=== PATIENT | male | born 1965 | race Hispanic/Latino ===

== ENCOUNTER 2018-07-27 12:59 | Emergency (ER) | payer OTHER ==
[2018-07-27] MEDS ORDERED: MEPERIDINE HCL 50 MG/ML AMP ONE (13:56)
[2018-07-27] MEDS ORDERED: DEXAMETHASONE 10 MG/ML VIAL ONE (13:57)
--- NOTE | 2018-07-27 14:13 | ER ---
Nurse's Notes [facility] Name: Chrissie Parada Jr Age: 53 yrs Sex: Male : 1965 Arrival Date: 07/27/2018 Time: 13:01 Bed 25 Private MD: Otilia Roman Diagnosis: Radiculopathy, lumbosacral region;Foot drop, left foot Presentation: 07/27 13:05 Presenting complaint: Patient states: L groin pain x months that has gotten worse over ss the past 3-4 days. Pt recently has had an ultrasound, but was negative. Transition of care: patient was not received from another setting of care. Onset of symptoms is unknown. Risk Assessment: Do you want to hurt yourself or someone else? Patient reports no desire to harm self or others. Initial Sepsis Screen: Does the patient meet any 2 criteria? No. Patient's initial sepsis screen is negative. Does the patient have a suspected source of infection? No. Patient's initial sepsis screen is negative. Care prior to arrival: None. 13:05 Method Of Arrival: Ambulatory ss 13:05 Acuity: WENDY 4 ss Historical: - Allergies: 13:06 No Known Allergies; ss - PMHx: 13:06 Arthritis; Cirrhosis; GERD; esophageal varices; ss - Immunization history:: Adult Immunizations up to date. - Social history:: Smoking status: Patient/guardian denies using tobacco. - Ebola Screening: : Patient denies exposure to infectious person Patient denies travel to an Ebola-affected area in the 21 days before illness onset. - Family history:: not pertinent. - Hospitalizations: : No recent hospitalization is reported. Screenin:36 Abuse screen: Denies threats or abuse. Denies injuries from another. Nutritional aj1 screening: No deficits noted. Tuberculosis screening: No symptoms or risk factors identified. 14:31 Fall Risk None identified. aj1 Assessment: 13:36 General: Appears in no apparent distress. uncomfortable, Behavior is calm, cooperative, aj1 appropriate for age. Pain: Complains of pain in pelvis Pain currently is 8 out of 10 on a pain scale. Neuro: Level of Consciousness is awake, alert, obeys commands, Oriented to person, place, time, situation. Cardiovascular: Patient's skin is warm and dry. Respiratory: Airway is patent Respiratory effort is even, unlabored, Respiratory pattern is regular, symmetrical. GI: No signs and/or symptoms were reported involving the gastrointestinal system. : No signs and/or symptoms were reported regarding the genitourinary system. EENT: No signs and/or symptoms were reported regarding the EENT system. Derm: No signs and/or symptoms reported regarding the dermatologic system. Skin is pink, warm \T\ dry. normal. Musculoskeletal: No signs and/or symptoms reported regarding the musculoskeletal system. Circulation, motion, and sensation intact. 14:30 Reassessment: Patient appears in no apparent distress at this time. No changes from aj1 previously documented assessment. Patient and/or family updated on plan of care and expected duration. Pain level reassessed. Patient is alert, oriented x 3, equal unlabored respirations, skin warm/dry/pink. Vital Signs: 13:03 BP 121 / 86; Pulse 104; Resp 16; Temp 98.7(TE); Pulse Ox 93% on R/A; Weight 104.33 kg; ss Height 5 ft. 7 in. (170.18 cm); Pain 8/10; 13:03 Body Mass Index 36.02 (104.33 kg, 170.18 cm) ED Course: 13:01 Patient arrived in ED. mr 13:02 None, None is Private Physician. mr 13:02 Otilia Roman MD is Private Physician. mr 13:03 Arm band placed on left wrist. ss 13:05 Triage completed. ss 13:20 Soni Devlin, RN is Primary Nurse. aj1 13:23 Harjeet Gibson MD is Attending Physician. rn 13:36 Patient has correct armband on for positive identification. Bed in low position. Call aj1 light in reach. Side rails up X 1. 13:36 No provider procedures requiring assistance completed. aj1 14:30 Patient did not have IV access during this emergency room visit. aj1 Administered Medications: 13:49 Drug: Demerol 50 mg Route: IM; Site: right deltoid; aj1 14:29 Follow up: Response: No adverse reaction aj1 13:49 Drug: Decadron 10 mg Route: IM; Site: left deltoid; aj1 14:29 Follow up: Response: No adverse reaction aj1 Outcome: 14:12 Discharge ordered by . rn 14:31 Discharged to home ambulatory, with family. aj1 14:31 Condition: good 14:31 Discharge instructions given to patient, family, Instructed on discharge instructions, follow up and referral plans. no drinking with medication, no driving heavy equipment, medication usage, Demonstrated understanding of instructions, follow-up care, medications, Prescriptions given X 3. 14:31 Patient left the ED. aj1 Signatures: Soni Devlin RN RN aj1 Tammie Moseley mr Harjeet Gibson MD MD rn Smirch, Shelby, RN RN ss
--- NOTE | 2018-07-27 14:13 | EDPHYS ---
Physician Documentation [facility] Name: Chrissie Parada Jr Age: 53 yrs Sex: Male : 1965 Arrival Date: 07/27/2018 Time: 13:01 Bed 25 Private MD: Otilia Roman ED Physician Harjeet Gibson HPI: 07/27 14:07 This 53 yrs old Male presents to ER via Ambulatory with complaints of Groin rn Pain. 14:07 The patient presents with pain. The complaints affect the left leg. Onset: The rn symptoms/episode began/occurred 1 year(s) ago. Modifying factors: The symptoms are alleviated by nothing. the symptoms are aggravated by nothing. Severity of symptoms: At their worst the symptoms were moderate, in the emergency department the symptoms are unchanged. The patient has experienced similar episodes in the past. 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 Evaluated before for this and had negative imaging. Does not feel a bulge. No recent vascular procedure. . Historical: - Allergies: 13:06 No Known Allergies; ss - PMHx: 13:06 Arthritis; Cirrhosis; GERD; esophageal varices; ss - Immunization history:: Adult Immunizations up to date. - Social history:: Smoking status: Patient/guardian denies using tobacco. - Ebola Screening: : Patient denies exposure to infectious person Patient denies travel to an Ebola-affected area in the 21 days before illness onset. - Family history:: not pertinent. - Hospitalizations: : No recent hospitalization is reported. ROS: 14:07 Constitutional: Negative for fever, chills, and weight loss, Eyes: Negative for injury, rn pain, redness, and discharge, Cardiovascular: Negative for chest pain, palpitations, and edema, Respiratory: Negative for shortness of breath, cough, wheezing, and pleuritic chest pain, Abdomen/GI: Negative for abdominal pain, nausea, vomiting, diarrhea, and constipation, Back: + chronic back pain MS/Extremity: + left leg pain, no injury Skin: Negative for injury, rash, and discoloration, Neuro: Negative for headache, and seizure. Exam: 14:07 Constitutional: This is a well developed, well nourished patient who is awake, alert, rn and in no acute distress. Head/Face: Normocephalic, atraumatic. Eyes: Pupils equal round and reactive to light, extra-ocular motions intact. Lids and lashes normal. Conjunctiva and sclera are non-icteric and not injected. Cornea within normal limits. Periorbital areas with no swelling, redness, or edema. Abdomen/GI: soft, non-tender Back: No spinal tenderness. No costovertebral tenderness. Full range of motion. Skin: Warm, dry with normal turgor. Normal color with no rashes, no lesions, and no evidence of cellulitis. MS/ Extremity: Pulses equal, no cyanosis. Neurovascular intact. Full, normal range of motion. Equal circumference. No masses or skin changes. + mild tenderness left groin in inguinal canal. Neuro: Awake and alert, GCS 15, oriented to person, place, time, and situation. Cranial nerves II-XII grossly intact. Motor strength 5/5 in all extremities. Sensory grossly intact. Cerebellar exam normal. + antalgic gait left leg, no foot drop. Vital Signs: 13:03 BP 121 / 86; Pulse 104; Resp 16; Temp 98.7(TE); Pulse Ox 93% on R/A; Weight 104.33 kg; ss Height 5 ft. 7 in. (170.18 cm); Pain 8/10; 13:03 Body Mass Index 36.02 (104.33 kg, 170.18 cm) ss MDM: 13:23 Patient medically screened. rn 14:07 Differential diagnosis: radiculopathy, inguinal hernia, inguinal canal congestion due rn to cirrhosis. Data reviewed: vital signs, nurses notes, and as a result, I will discharge patient. Counseling: I had a detailed discussion with the patient and/or guardian regarding: the historical points, exam findings, and any diagnostic results supporting the discharge/admit diagnosis, the need for outpatient follow up, to return to the emergency department if symptoms worsen or persist or if there are any questions or concerns that arise at home. Response to treatment: the patient's symptoms have mildly improved after treatment, and as a result, I will discharge patient. Special discussion: I discussed with the patient/guardian in detail that at this point there is no indication for admission to the hospital. It is understood, however, that if the symptoms persist or worsen the patient needs to return immediately for re-evaluation. ED course: MOst likely combination of radiculopathy/nerve pain due to intermittent symptoms of paresthesias/weakness and length of symptoms, + known [facility] back issues due to labor. Will prescribe steroids and muscle relaxer, urged to f/u with pcp for MRI of spine.. Administered Medications: 13:49 Drug: Demerol 50 mg Route: IM; Site: right deltoid; aj1 14:29 Follow up: Response: No adverse reaction aj1 13:49 Drug: Decadron 10 mg Route: IM; Site: left deltoid; aj1 14:29 Follow up: Response: No adverse reaction aj1 Disposition: 07/27/18 14:12 Discharged to Home. Impression: Radiculopathy, lumbosacral region, Foot drop, left foot. - Condition is Stable. - Discharge Instructions: Lumbosacral Radiculopathy, Neuropathic Pain, Back Exercises. - Prescriptions for Ultram 50 mg Oral Tablet - take 1 tablet by ORAL route every 6 hours As needed; 20 tablet. Cyclobenzaprine 10 mg Oral Tablet - take 1 tablet by ORAL route every 8 hours As needed; 30 tablet. Medrol ([place]) 4 mg Oral Tablets, Dose Pack - take 1 tablet by ORAL route as directed - follow package instructions; 1 packet. - Medication Reconciliation Form, Thank You Letter, Antibiotic Education, Prescription Opioid Use form. - Follow up: Private Physician; When: As needed; Reason: Recheck today's complaints, Re-evaluation by your physician. - Problem is chronic. - Symptoms have improved. Signatures: Soni Devlin RN RN aj1 Harjeet Gibson MD MD rn Smirch, Shelby, RN RN ss Corrections: (The following items were deleted from the chart) 14:31 14:12 07/27/2018 14:12 Discharged to Home. Impression: Radiculopathy, lumbosacral aj1 region; Foot drop, left foot. Condition is Stable. Forms are Medication Reconciliation Form, Thank You Letter, Antibiotic Education, Prescription Opioid Use. Follow up: Private Physician; When: As needed; Reason: Recheck today's complaints, Re-evaluation by your physician. Problem is chronic. Symptoms have improved. rn
[2018-07-27 14:37] VITALS: BP 121/86; TEMP 98.7; O2SAT 93
== END 2018-07-27 14:31 | disposition home or self-care (01) ==
LOC: ER 12:59
DX: M54.17 Radiculopathy, lumbosacral region (principal); M21.372 Foot drop, left foot
CPT/HCPCS: 96372; 99283; J1100; J2175

== ENCOUNTER 2018-09-13 14:13 | Emergency (ER) | payer OTHER ==
[2018-09-13 16:00] LABS: Absolute Lymphocytes (CBC) 0.9 K/uL (0.7-4.9); Absolute Monocytes 0.5 K/uL (0.1-1.3); Absolute Neutrophil 4.2 K/uL (1.8-8.0); Basophils % 1.1 % (0-1.3); Eosinophils % 2.1 % (0-4.4); Hematocrit 33.7 % (39.6-49.0); Lymphocytes % 15.6 % (15.3-44.8); MPV 8.7 fL (7.6-11.3); Monocytes % 8.9 % (3.3-12.3); RBC Red Blood Cell Count 3.04 M/uL (4.33-5.43)
[2018-09-13 16:05] LABS: Protime INR 1.79
[2018-09-13] MEDS ORDERED: MORPHINE 4 MG/ML SYR ONE (16:22)
[2018-09-13] MEDS ORDERED: ONDANSETRON 4 MG/2 ML VIAL ONE (16:22)
[2018-09-13 16:31] LABS: ALT/SGPT 61 U/L (12-78); AST/SGOT 208 U/L (15-37); Albumin 1.7 g/dL (3.4-5.0); Alkaline Phosphatase 235 U/L (45-117); BUN Blood Urea Nitrogen 5 mg/dL (7-18); Bicarbonate 22 mmol/L (21-32); Bilirubin Direct 5.2 mg/dL (0-0.2); Glucose Level 103 mg/dL (74-106); Lipase 194 U/L (73-393); Potassium 4.3 mmol/L (3.5-5.1); Sodium Level 134 mmol/L (136-145)
[2018-09-13 16:37] LABS: Blood Morphology Comment NOTED (NOT SEEN); Macrocytosis 2+; Platelet Estimate DECR; Target Cells FEW; Urine White Blood Cell Casts OK
[2018-09-13 16:38] LABS: Bilirubin Total 7.5 mg/dL (0.2-1.0); Rouleau NOTED
[2018-09-13] MEDS ORDERED: NA CHLORIDE 0.9% 500 ML ONE (16:54)
--- NOTE | 2018-09-13 17:12 | RAD REPORT ---
EXAM DESCRIPTION: CT - Abdomen Pelvis W Contrast - 09/13/2018 4:59 pm CLINICAL HISTORY: Abdominal pain COMPARISON: None. TECHNIQUE: Biphasic, helical CT imaging of the abdomen and pelvis was performed following 100 ml non -ionic IV contrast. No oral contrast. All CT scans are performed using dose optimization technique as appropriate and may include automated exposure control or mA/KV adjustment according to patient size. FINDINGS: No suspicious findings in the lung bases. No cardiomegaly or pericardial effusion. Liver size is normal. There is a prominent nodularity to the liver capsule. Mild underlying fatty inf iltration is present. A focal liver lesion is not identified. No splenomegaly or focal splenic findin g. No acute pancreatic process. Cholecystectomy clips are present. No biliary tree dilatation. Symmetric renal function is seen with no hydronephrosis or suspicious renal mass. No pyelonephritis o r acute parenchymal process. Urinary bladder is mostly contracted. No adrenal abnormalities. No dilated bowel loops or bowel wall thickening. No appendicitis findings. No free air or pneumatosis. Moderately large volume of ascites present. This is primarily in the upp er abdomen near the liver and spleen. There is congestion or edema throughout the subcutaneous fatty tissues and to a lesser degree in the peritoneal and retroperitoneal fat. No mass or bulky lymphaden opathy. No omental thickening. Small hiatal hernia is present. No suspicious bony findings. No acute vascular finding. There are multiple dilated veins in the upper abdomen. IMPRESSION: Advanced cirrhosis changes with no focal liver lesion identified. Moderately large volume of ascites primarily near the liver and spleen. No dilated bowel loops or acute bowel finding. There are few prominent small bowel loops and nonspeci fic enteritis is possible. Status post cholecystectomy with no biliary tree dilatation. No acute pancreatic process. Fluid retention throughout the subcutaneous fatty tissues and to a lesser degree in the peritoneal an d retroperitoneal fat.
--- NOTE | 2018-09-13 18:07 | RAD REPORT ---
EXAM DESCRIPTION: RAD - Chest Single View - 09/13/2018 5:11 pm CLINICAL HISTORY: Chest pain, abdominal pain COMPARISON: October 2012 TECHNIQUE: AP portable chest image was obtained 1709 hours . FINDINGS: Lung volumes are low accentuating lung markings. Lung base atelectasis is present. No jimena pheral mass, consolidation or significant failure finding. Heart and vasculature are normal. No measu rable pleural effusion and no pneumothorax. No acute bony abnormality seen. No acute aortic findings suspected. IMPRESSION: No acute cardiopulmonary process.
[2018-09-13] MEDS ORDERED: FUROSEMIDE 40 MG/4 ML VIAL ONE (18:19)
--- NOTE | 2018-09-13 18:29 | EDPHYS ---
Physician Documentation [facility] Name: Chrissie Parada Jr Age: 53 yrs Sex: Male : 1965 Arrival Date: 09/13/2018 Time: 14:14 Bed 24 Private MD: Eugene Segura ED Physician Ulises Carbone HPI: 09/13 15:15 This 53 yrs old Male presents to ER via Ambulatory with complaints of cp Abdominal Swelling, Abdominal Pain. 15:15 The patient presents with abdominal pain in the left upper quadrant, abdominal cp distention that is diffuse. Onset: The symptoms/episode began/occurred gradually, and became worse 1 week(s) ago. The symptoms do not radiate. Associated signs and symptoms: Pertinent negatives: anorexia, blood in stools, chest pain, constipation, diarrhea, fever, testicular pain, vomiting. Modifying factors: the symptoms are aggravated by pressure. Historical: - Allergies: 14:23 No Known Allergies; la1 - PMHx: 14:23 Arthritis; Cirrhosis; esophageal varices; GERD; la1 - PSHx: 14:23 Cholecystectomy; la1 - Immunization history:: Adult Immunizations up to date. - Social history:: Smoking status: Patient/guardian denies using tobacco. - Ebola Screening: : No symptoms or risks identified at this time. ROS: 15:20 Constitutional: Negative for body aches, chills, fever, poor PO intake. cp 15:20 Eyes: Negative for injury, pain, redness, and discharge. cp Exam: 15:30 Constitutional: The patient appears in no acute distress, alert, awake, cp non-diaphoretic, non-toxic, well developed, well nourished, obese. 15:30 Head/Face: Normocephalic, atraumatic. cp 15:30 Eyes: Periorbital structures: appear normal, Pupils: equal, round, and reactive to light and accomodation, Extraocular movements: intact throughout, Conjunctiva: normal, no exudate, no injection, Sclera: icterus, is present, Lids and lashes: appear normal, bilaterally. 15:30 ENT: External ear(s): are unremarkable, Ear canal(s): are normal, clear, TM's: are normal, no evidence of bulging, no erythema, Nose: is normal, Mouth: Lips: moist, Oral mucosa: pink and intact, moist, Posterior pharynx: is normal, airway is patent, no erythema, no exudate. 15:30 Chest/axilla: Inspection: normal, Palpation: is normal, no crepitus, no tenderness. 15:30 Cardiovascular: Rate: tachycardic, Rhythm: regular, Edema: ankle edema, that is moderate, JVD: is not appreciated. 15:30 Respiratory: the patient does not display signs of respiratory distress, Respirations: normal, no use of accessory muscles, no retractions, no splinting, no tachypnea, labored breathing, is not present, Breath sounds: are clear throughout, no decreased breath sounds, no stridor, no wheezing. 15:30 Abdomen/GI: Inspection: distension, that is severe, in the abdomen diffusely, Palpation: soft, in all quadrants, moderate abdominal tenderness, in the left upper quadrant. 15:30 Skin: no rash present. 15:30 Neuro: Orientation: to person, place \T\ time. Mentation: is normal, Cerebellar function: is grossly normal, Motor: is normal, Sensation: is normal. Vital Signs: 14:23 BP 158 / 83; Pulse 114; Resp 16; Temp 97.6; Pulse Ox 98% on R/A; Weight 99.79 kg; la1 Height 5 ft. 7 in. (170.18 cm); 17:36 BP 138 / 87; Pulse 108; Resp 19; Pulse Ox 96% on R/A; aj 20:00 BP 146 / 90; Pulse 117; Resp 19; Pulse Ox 95% on R/A; aj 14:23 Body Mass Index 34.46 (99.79 kg, 170.18 cm) la1 MDM: 15:12 Patient medically screened. cp 15:45 Differential diagnosis: bowel obstruction, non-specific abd pain, pancreatitis, cp Ureterolithiasis, urinary tract infection, ascites, cholangitis. 18:00 Data reviewed: vital signs, nurses notes, lab test result(s), radiologic studies, CT cp scan. 09/13 14:58 Order name: Basic Metabolic Panel; Complete Time: 16:48 aj 09/13 16:47 Interpretation: Normal except: NA 134; BUN 5; CA 7.4. cp 09/13 14:58 Order name: CBC with Diff; Complete Time: 16:48 09/13 16:29 Interpretation: Normal except: RBC 3.04; HGB 11.4; HCT 33.7; MCV 110.5; MCH 37.6; PLT cp 104; RDW 17.7. 09/13 14:58 Order name: Creatinine for Radiology; Complete Time: 16:34 09/13 14:58 Order name: Hepatic Function; Complete Time: 16:48 09/13 17:49 Interpretation: Normal except: AST 208; ALK 235; BILIT 7.5; BILID 5.2; ALB 1.7; GLOB cp 6.3; A/G 0.3. 09/13 14:58 Order name: Lipase; Complete Time: 16:48 09/13 14:58 Order name: AMMONIA; Complete Time: 16:34 09/13 16:33 Interpretation: SIMI 17; Reviewed. 09/13 15:11 Order name: PT-INR; Complete Time: 16:29 09/13 16:29 Interpretation: Abnormal: PT 20.7. 09/13 15:11 Order name: Ptt, Activated; Complete Time: 16:29 09/13 15:11 Order name: ETOH Level; Complete Time: 16:48 09/13 15:48 Order name: [place] Screen Profile; Complete Time: 17:47 09/13 17:47 Interpretation: Reviewed. 09/13 15:50 Order name: CT Abd/Pelvis - W/Contrast: no oral contrast; Complete Time: 17:47 09/13 16:03 Order name: CBC Smear Scan; Complete Time: 16:48 EDDC 09/13 16:32 Order name: XRAY Chest (1 view); Complete Time: 18:09 09/13 18:09 Interpretation: Report review. 09/13 14:58 Order name: IV Saline Lock; Complete Time: 18:37 09/13 14:58 Order name: Labs collected and sent; Complete Time: 18:37 Administered Medications: 16:08 Drug: Zofran 4 mg Route: IVP; Site: right hand; aj 18:13 Follow up: Response: No adverse reaction; Pain is decreased 16:09 Drug: morphine 4 mg Route: IVP; Site: right hand; aj 16:48 Follow up: Response: No adverse reaction 16:47 Drug: NS 0.9% 1000 ml Route: IV; Rate: 500 ml/hr; Site: right hand; 20:36 Follow up: Response: No adverse reaction; IV Status: Completed infusion; IV Intake: mg2 1000ml 18:13 Drug: Lasix 40 mg Route: IVP; Site: right hand; 20:35 Follow up: Response: No adverse reaction; Marked relief of symptoms mg2 Disposition: 09/13/18 18:[address] [facility]. Diagnosis are Alcoholic hepatic failure, Alcohol abuse, Ascites. - Reason for transfer: Higher level of care. - Accepting physician is DR Uziel Baez. - Condition is Stable. - Problem is new. - Symptoms have improved. Addendum: 09/15/2018 08:08 Co-signature as Attending Physician, Ulises Carbone MD I agree with the assessment and k dr plan of care. Signatures: Dispatcher [employer] EDMS Renée Barrett RN RN aj Rittger, Kevin, MD MD [facility] Michael Chu RN RN la1 Víctor Bowers PA PA cp Brian Pickett RN RN mg2 Corrections: (The following items were deleted from the chart) 09/13 16:48 16:47 Normal except: NA 134; BUN 5. cp cp 17:49 17:48 Normal except: AST 208; ALK 235; BILIT 7.5; BILID 5.2; ALB 1.7; GLOB 6.3. cp cp 20:37 18:29 09/13/2018 18:[address] [facility]. Diagnosis is mg2 Alcoholic hepatic failure; Alcohol abuse; Ascites. Reason for transfer: Higher level of care. Accepting physician is DR Uziel Baez. Condition is Stable. Problem is new. Symptoms have improved. cp
--- NOTE | 2018-09-13 18:29 | ER ---
Nurse's Notes [facility] Name: Chrissie Parada Jr Age: 53 yrs Sex: Male : 1965 Arrival Date: 09/13/2018 Time: 14:14 Bed 24 Private MD: Eugene Segura Diagnosis: Alcoholic hepatic failure;Alcohol abuse;Ascites Presentation: 09/13 14:21 Presenting complaint: Patient states: I am having abd pain and swelling. Family states la1 eyes have been a little yellow for a few days. Pt denies vomiting/diarrhea. Pt reports drinking about a six pack a day, last night was last drink. Transition of care: patient was not received from another setting of care. Onset of symptoms was September 13, 2018. Risk Assessment: Do you want to hurt yourself or someone else? Patient reports no desire to harm self or others. Initial Sepsis Screen: Does the patient meet any 2 criteria? No. Patient's initial sepsis screen is negative. Does the patient have a suspected source of infection? No. Patient's initial sepsis screen is negative. Care prior to arrival: None. 14:21 Method Of Arrival: Ambulatory la1 14:21 Acuity: WENDY 3 la1 Historical: - Allergies: 14:23 No Known Allergies; la1 - PMHx: 14:23 Arthritis; Cirrhosis; esophageal varices; GERD; la1 - PSHx: 14:23 Cholecystectomy; la1 - Immunization history:: Adult Immunizations up to date. - Social history:: Smoking status: Patient/guardian denies using tobacco. - Ebola Screening: : No symptoms or risks identified at this time. Screenin:09 Abuse screen: Denies threats or abuse. Denies injuries from another. Nutritional aj screening: No deficits noted. Tuberculosis screening: No symptoms or risk factors identified. Fall Risk None identified. Assessment: 16:09 General: Appears in no apparent distress. comfortable, Behavior is calm, cooperative, aj appropriate for age. Pain: Complains of pain in abdomen. Neuro: Level of Consciousness is awake, alert, obeys commands, Oriented to person, place, time, situation, Appropriate for age. Respiratory: Airway is patent Respiratory effort is even, unlabored, Respiratory pattern is regular, symmetrical. GI: Abdomen is noted to have ascites, Bowel sounds tympanic in right upper quadrant, left upper quadrant, right lower quadrant and left lower quadrant Abd is rigid X 4 quads. Derm: Skin is intact, is healthy with good turgor, Skin is jaundiced. 20:00 Reassessment: Patient appears in no apparent distress at this time. No changes from aj previously documented assessment. Patient and/or family updated on plan of care and expected duration. Pain level reassessed. Patient is alert, oriented x 3, equal unlabored respirations, skin warm/dry/pink. 20:36 Reassessment: report given to [facility], [place]. patient trnasferred mg2 in good condition. Vital Signs: 14:23 BP 158 / 83; Pulse 114; Resp 16; Temp 97.6; Pulse Ox 98% on R/A; Weight 99.79 kg; la1 Height 5 ft. 7 in. (170.18 cm); 17:36 BP 138 / 87; Pulse 108; Resp 19; Pulse Ox 96% on R/A; aj 20:00 BP 146 / 90; Pulse 117; Resp 19; Pulse Ox 95% on R/A; aj 14:23 Body Mass Index 34.46 (99.79 kg, 170.18 cm) la1 ED Course: 14:14 Patient arrived in ED. rg4 14:15 Eugene Segura MD is Private Physician. rg4 14:22 Triage completed. la1 14:23 Arm band placed on right wrist. la1 14:56 Renée Barrett RN is Primary Nurse. aj 15:10 Víctor Bowers PA is PHCP. cp 15:10 Ulises Carbone MD is Attending Physician. cp 16:09 Patient has correct armband on for positive identification. aj 16:09 Inserted saline lock: 24 gauge in right hand, using aseptic technique. aj 16:14 Radiology exam delayed due to lab results not completed at this time. (BUN/Creatinine). az 16:44 Inserted saline lock: 18 gauge in left antecubital area, using aseptic technique. la1 ,using aseptic technique. via dynamic US guidance. 16:56 CT completed. Patient tolerated procedure well. Patient moved back from CT. bq 17:01 CT Abd/Pelvis - W/Contrast: no oral contrast In Process Unspecified. EDMS 17:11 XRAY Chest (1 view) In Process Unspecified. EDMS 20:00 Report given to Sonja GORE. aj 20:37 No provider procedures requiring assistance completed. Patient admitted, IV remains in mg2 place. Administered Medications: 16:08 Drug: Zofran 4 mg Route: IVP; Site: right hand; aj 18:13 Follow up: Response: No adverse reaction; Pain is decreased aj 16:09 Drug: morphine 4 mg Route: IVP; Site: right hand; aj 16:48 Follow up: Response: No adverse reaction aj 16:47 Drug: NS 0.9% 1000 ml Route: IV; Rate: 500 ml/hr; Site: right hand; aj 20:36 Follow up: Response: No adverse reaction; IV Status: Completed infusion; IV Intake: mg2 1000ml 18:13 Drug: Lasix 40 mg Route: IVP; Site: right hand; aj 20:35 Follow up: Response: No adverse reaction; Marked relief of symptoms mg2 Intake: 20:36 IV: 1000ml; Total: 1000ml. mg2 Outcome: 18:29 ER care complete, transfer ordered by . cp 20:37 Transferred by ground EMS to [facility], Transfer form completed. mg2 20:37 Condition: stable 20:37 Instructed on the need for transfer, Demonstrated understanding of instructions. 20:37 Patient left the ED. mg2 Signatures: Dispatcher [employer] EDMS Renée Barrett RN Yue Robins Lee RN RN la1 Víctor Bowers PA PA cp Garcia, Rubi rg4 Gardose, Michele, RN RN mg2 Beulah Hudson
[2018-09-13 21:06] VITALS: TEMP 97.6
[2018-09-13 21:08] VITALS: BP 146/90; O2SAT 95
== END 2018-09-13 20:37 | disposition short-term general hospital (02) ==
LOC: ER 14:13
DX: K70.40 Alcoholic hepatic failure without coma (principal); F10.10 Alcohol abuse, uncomplicated; R18.8 Other ascites; K74.60 Unspecified cirrhosis of liver
CPT/HCPCS: 36415; 71045; 74177; 80048; 80076; 80320; 82140; 83690; 85025; 85610; 85730; 86308; 96361; 96374; 96375; 99285; J1940; J2405; Q9967

== ENCOUNTER 2018-11-03 09:20 | Emergency (ER) | payer OTHER ==
--- OUTSIDE RECORDS SUMMARY | 2018-11-03 09:24 | XMS REPORT | Clinical Summary ---
:1965 Author Organization [facility] Address [address] [place] [address] Care Team Providers Name Role Phone Imelda Eugene Cummings Primary Care Provider Allergies No Known Allergies Medications Medication Sig Dispensed Refills Start Date End Date Status omeprazole Take 1 60 capsule 2 09/17/2018 Active (PRILOSEC) 40 MG capsule (40 capsule mg total) by mouth 2 (two) times daily before meals. propranolol Take 1 tablet 60 tablet 2 09/17/2018 Active (INDERAL) 20 MG (20 mg total) tablet by mouth 2 (two) times daily. folic acid (FOLVITE) Take 1 tablet 90 tablet 1 09/17/2018 Active 1 MG tablet (1 mg total) 0 by mouth daily. furosemide (LASIX) Take 1 tablet 30 tablet 2 09/17/2018 Active 40 MG tablet (40 mg total) 9 by mouth daily for 90 days. lactulose Take 30 mLs 2700 mL 2 09/17/2018 Active (CHRONULAC) 20 (20 g total) gram/30 mL solution by mouth 3 (three) times daily. multivitamin Take 1 tablet 30 tablet 2 09/17/2018 Active (THERAGRAN) tablet by mouth 9 daily for 90 days. spironolactone Take 1 tablet 30 tablet 2 09/17/2018 Active (ALDACTONE) 100 MG (100 mg 9 tablet total) by mouth daily for 90 days. omeprazole Take 40 mg by 0 Discontinued (PRILOSEC) 40 MG mouth 2 (two) 9 capsule times daily before meals. propranolol Take 20 mg by 0 Discontinued (INDERAL) 20 MG mouth 2 (two) 9 tablet times daily. Active Problems Problem Noted Date Pre-transplant evaluation for liver transplant 10/14/2018 Last Assessment & Plan: He is an acceptable candidate for liver transplant pending further imaging/ testing and official review at [facility]. Ascites due to alcoholic cirrhosis 10/05/2018 Portal hypertension 10/05/2018 Last Assessment & Plan: Portal hypertension with evidence by esophageal varices and ascites. Secondary esophageal varices without bleeding 10/05/2018 Screening for malignant neoplasm 10/05/2018 Alcohol abuse 10/05/2018 Reactive depression 10/05/2018 Last Assessment & Plan: He reports a history of depression. He denies suicidal or homicidal ideations. He will continue follow up with psychiatry as indicated. Jaundice 10/05/2018 Elevated liver enzymes 10/05/2018 Renal artery aneurysm 10/05/2018 Alcoholic cirrhosis of liver with ascites 09/14/2018 Decompensated liver disease 09/13/2018 Last Assessment & Plan: Cirrhosis secondary to ETOH. Encounters Date Type Specialty Care Team Description 11/02/2018 Telephone Transplant Cecilia Choe, Foot Swelling; Hepatology RN Ascites 11/02/2018 Documentation Transplant Cecilia Choe, Hepatology RN 10/21/2018 Abstract Transplant Carolyn Velez Hepatology 10/19/2018 Telephone Transplant Mirian Kemp MELD Hepatology RN 10/19/2018 Social Work Transplant Patt Thakkar Hepatology L, [facility] 10/15/2018 Orders Only Lab Aly Iglesias Alcoholic cirrhosis of liver with ascites (HCC); MD Shane Pre-transplant evaluation for liver transplant 10/15/2018 Hospital Encounter Cardiology Aly Iglesias Alcoholic cirrhosis of liver with ascites (HCC); MD Shane Pre-transplant evaluation for liver transplant 10/15/2018 Hospital Encounter Cardiology Aly Iglesias Alcoholic cirrhosis of liver with ascites (HCC); MD Shane Pre-transplant evaluation for liver transplant 10/15/2018 Hospital Encounter Radiology Aly Iglesias Alcoholic cirrhosis of liver with ascites (HCC); MD Shane Pre-transplant evaluation for liver transplant 10/14/2018 Hospital Encounter Cardiology Aly Iglesias Alcoholic cirrhosis of liver with ascites (HCC); MD Shane Pre-transplant evaluation for liver transplant 10/14/2018 Hospital Encounter Aly Iglesias Alcoholic cirrhosis of liver with ascites (HCC); MD Shane Pre-transplant evaluation for liver transplant 10/14/2018 Hospital Encounter Aly Iglesias Alcoholic cirrhosis of liver with ascites (HCC); MD Shane Pre-transplant evaluation for liver transplant 10/14/2018 Hospital Encounter Aly Iglesias Alcoholic cirrhosis of liver with ascites (HCC); MD Shane Pre-transplant evaluation for liver transplant 10/14/2018 Evaluation Transplant Aly Iglesias Hepatology MD Justo Lynn Amy 10/14/2018 Evaluation Transplant Aly Iglesias Pre-transplant Hepatology MD Shane evaluation for liver LawCarolyn R transplant (Primary Dx) 10/14/2018 Evaluation Transplant Aly Iglesias Pre-transplant evaluation for liver transplant; Hepatology MD Shane Decompensated liver disease (HCC); Lukas Ruff Jhon Portal hypertension; MD Abilio Reactive depression 10/14/2018 Outside Orders Eugene Segura 10/13/2018 Telephone Transplant Ella Reynaga Appointment (confirm Hepatology appointments) 10/12/2018 Orders Only Transplant Cecilia Choe, Pre-transplant evaluation for liver transplant (Primary Dx); Hepatology RN Alcoholic cirrhosis of liver with ascites (HCC) 10/09/2018 Orders Only Hepatology Aly Iglesias MD 10/07/2018 Abstract Hepatology Soni Alcala MA 10/07/2018 Documentation Hepatology Soni Alcala MA 10/05/2018 Office Visit Hepatology Aly Iglesias Alcoholic cirrhosis of liver with ascites (HCC) (Primary Dx); MD Shane Ascites due to alcoholic cirrhosis; Harley Gonzalez Portal hypertension; CAROLIN Juárez Secondary esophageal varices without bleeding ; Screening for malignant neoplasm; Alcohol abuse; Reactive depression; Jaundice; Elevated liver enzymes; Renal artery aneurysm 10/05/2018 Telephone Transplant Trudy Hoffman Liver Transplant Hepatology Pre-evaluation (Spoke with pt and family in clinic room 6, liver txp eval scheduled with pt and family.) 10/02/2018 Orders Only Hepatology Aly Iglesias MD 09/28/2018 Orders Only Transplant Cecilia Choe, Pre-transplant evaluation for liver transplant (Primary Dx); Hepatology RN Alcoholic cirrhosis of liver with ascites (HCC) 09/28/2018 Telephone Transplant Trudy Hoffman Liver Transplant Hepatology Pre-evaluation (LVM asking pt to return my call.) 09/16/2018 Abstract Transplant Pedro Valerio Hepatology 09/13/2018 - Hospital Encounter General Internal Uziel Baez Decompensated liver disease (HCC); 09/17/2018 Medicine Brandon STANFORD MD Alcoholic liver disease, unspecified (HCC); Larry Hagen, Abdominal distension; Alcoholic cirrhosis of liver with ascites (HCC); Portal hypertension (HCC); Jaundice; Alcoholic hepatitis with ascites; Major depressive disorder with current active episode, unspecified depression episode severity, unspecified whether recurrent; Uncomplicated alcohol dependence (HCC) 09/13/2018 Travel after 11/02/2017 Social History Tobacco Use Types Packs/Day Years Used Date Former Smoker Smokeless Tobacco: Never Used Alcohol Use Drinks/Week oz/Week Comments Yes 4 Cans of beer 2.4 Sex Assigned at Date Recorded Not on file Job Start Date Occupation Industry Not on file Not on file Not on file Travel History Travel Start Travel End No recent travel history available. Last Filed Vital Signs Vital Sign Reading Time Taken Blood Pressure 113/65 10/14/2018 8:50 AM CDT Pulse 57 10/14/2018 8:50 AM CDT Temperature 36.7 C (98 F) 10/14/2018 8:50 AM CDT Respiratory Rate 18 10/14/2018 8:50 AM CDT Oxygen Saturation 100% 10/14/2018 8:50 AM CDT Inhaled Oxygen Concentration - - Weight 100.7 kg (222 lb 0.1 oz) 10/14/2018 11:27 AM CDT Height 170.2 cm (5' 7.01") 10/14/2018 11:27 AM CDT Body Mass Index 34.76 10/14/2018 11:27 AM CDT Plan of Treatment Date Type Specialty Care Team Description 01/05/2019 Office Visit Hepatology Resource, [facility] E Procedures Procedure Name Priority Date/Time Associated Comments Diagnosis PERIPHERAL VASCULAR 10/16/2018 9:11 REPORT - SCAN PM CDT TRANSFUSION SERVICE 10/16/2018 5:53 REPORT - SCAN PM CDT ECHOCARDIOGRAM REPORT - 10/15/2018 9:14 SCAN PM CDT ECHO W CONTRAST & Routine 10/15/2018 12:41 Alcoholic Results for this DOPPLER PM CDT cirrhosis of liver procedure are in with ascites (HCC) the results Pre-transplant section. evaluation for liver transplant NM MYOCARDIAL PERFUSION Routine 10/15/2018 11:45 Alcoholic Results for this SPECT, PHARM(LEXISCAN) AM CDT cirrhosis of liver procedure are in with ascites (HCC) the results Pre-transplant section. evaluation for liver transplant BLOOD TYPING, AUTOMATED Routine 10/15/2018 11:09 Alcoholic Results for this AM CDT cirrhosis of liver procedure are in with ascites (HCC) the results Pre-transplant section. evaluation for liver transplant ECG 12-LEAD Routine 10/15/2018 9:54 Results for this AM CDT procedure are in the results section. ECG 12-LEAD Routine 10/15/2018 9:54 AM CDT Procedure Note - Interface, External Ris In - 10/15/2018 10:17 AM CDT Ventricular Rate 54 BPM Atrial Rate 54 BPM P-R Interval 152 ms QRS Duration 104 ms Q-T Interval 524 ms QTC Calculation(Bazett) 496 ms P [place] 48 degrees R [place] 16 degrees T [place] 48 degrees Sinus bradycardia Prolonged QT Abnormal ECG ECG 12-LEAD Routine 10/15/2018 7:48 AM CDT Procedure Note - Interface, External Ris In - 10/15/2018 10:34 AM CDT Ventricular Rate 55 BPM Atrial Rate 55 BPM P-R Interval 144 ms QRS Duration 104 ms Q-T Interval 500 ms QTC Calculation(Bazett) 478 ms P [place] 3 degrees R [place] 22 degrees T [place] 16 degrees Sinus bradycardia Otherwise normal ECG No previous ECGs available ECG 12-LEAD Routine 10/15/2018 Alcoholic cirrhosis of Results for 7:48 AM CDT liver with ascites (HCC) this procedure Pre-transplant evaluation are in the for liver transplant results section. URINALYSIS W/ Routine 10/15/2018 Alcoholic cirrhosis of Results for MICROSCOPIC 7:38 AM CDT liver with ascites (HCC) this procedure Pre-transplant evaluation are in the for liver transplant results section. DRUG SCREEN, URINE, Routine 10/15/2018 Alcoholic cirrhosis of TRANSPLANT 7:38 AM CDT liver with ascites (HCC) Pre-transplant evaluation for liver transplant CRYPTOCOCCAL ANTIGEN Routine 10/15/2018 Pre-transplant evaluation Results for 7:37 AM CDT for liver transplant this procedure are in the results section. EBV ANTIBODY, IGM Routine 10/15/2018 Alcoholic cirrhosis of Results for 7:37 AM CDT liver with ascites (HCC) this procedure Pre-transplant evaluation are in the for liver transplant results section. EBV ANTIBODY, IGG Routine 10/15/2018 Alcoholic cirrhosis of Results for 7:37 AM CDT liver with ascites (HCC) this procedure Pre-transplant evaluation are in the for liver transplant results section. CYTOMEGALOVIRUS Routine 10/15/2018 Alcoholic cirrhosis of Results for ANTIBODY, IGM 7:37 AM CDT liver with ascites (HCC) this procedure Pre-transplant evaluation are in the for liver transplant results section. CYTOMEGALOVIRUS Routine 10/15/2018 Alcoholic cirrhosis of Results for ANTIBODY, IGG 7:37 AM CDT liver with ascites (HCC) this procedure Pre-transplant evaluation are in the for liver transplant results section. CBC W/PLT COUNT & AUTO Routine 10/15/2018 Alcoholic cirrhosis of Results for DIFFERENTIAL 7:28 AM CDT liver with ascites (HCC) this procedure Pre-transplant evaluation are in the for liver transplant results section. TESTOSTERONE, FREE + Routine 10/15/2018 Alcoholic cirrhosis of Results for TOTAL 7:28 AM CDT liver with ascites (HCC) this procedure Pre-transplant evaluation are in the for liver transplant results section. PSA Routine 10/15/2018 Alcoholic cirrhosis of Results for 7:28 AM CDT liver with ascites (HCC) this procedure Pre-transplant evaluation are in the for liver transplant results section. RPR Routine 10/15/2018 Alcoholic cirrhosis of Results for 7:28 AM CDT liver with ascites (HCC) this procedure Pre-transplant evaluation are in the for liver transplant results section. HIV-1 ANTIGEN WITH Routine 10/15/2018 Alcoholic cirrhosis of Results for HIV-1/2 ANTIBODY 7:28 AM CDT liver with ascites (HCC) this procedure Pre-transplant evaluation are in the for liver transplant results section. HEPATITIS B CORE Routine 10/15/2018 Alcoholic cirrhosis of Results for ANTIBODY, IGM 7:28 AM CDT liver with ascites (HCC) this procedure Pre-transplant evaluation are in the for liver transplant results section. HEPATITIS B CORE Routine 10/15/2018 Alcoholic cirrhosis of Results for ANTIBODY, TOTAL 7:28 AM CDT liver with ascites (HCC) this procedure Pre-transplant evaluation are in the for liver transplant results section. HEPATITIS A ANTIBODY, Routine 10/15/2018 Alcoholic cirrhosis of Results for IGM 7:28 AM CDT liver with ascites (HCC) this procedure Pre-transplant evaluation are in the for liver transplant results section. URIC ACID Routine 10/15/2018 Alcoholic cirrhosis of Results for 7:28 AM CDT liver with ascites (HCC) this procedure Pre-transplant evaluation are in the for liver transplant results section. ZINC Routine 10/15/2018 Alcoholic cirrhosis of Results for 7:28 AM CDT liver with ascites (HCC) this procedure Pre-transplant evaluation are in the for liver transplant results section. CARCINOEMBRYONIC Routine 10/15/2018 Alcoholic cirrhosis of Results for ANTIGEN (CEA) 7:28 AM CDT liver with ascites (HCC) this procedure Pre-transplant evaluation are in the for liver transplant results section. CARBOHYDRATE ANTIGEN Routine 10/15/2018 Alcoholic cirrhosis of Results for 19-9 (CA 19-9) 7:28 AM CDT liver with ascites (HCC) this procedure Pre-transplant evaluation are in the for liver transplant results section. ETHANOL Routine 10/15/2018 Alcoholic cirrhosis of Results for 7:28 AM CDT liver with ascites (HCC) this procedure Pre-transplant evaluation are in the for liver transplant results section. HEMOGLOBIN A1C Routine 10/15/2018 Alcoholic cirrhosis of Results for 7:28 AM CDT liver with ascites (HCC) this procedure Pre-transplant evaluation are in the for liver transplant results section. LIPID PANEL Routine 10/15/2018 Alcoholic cirrhosis of Results for 7:28 AM CDT liver with ascites (HCC) this procedure Pre-transplant evaluation are in the for liver transplant results section. VITAMIN D, 25-HYDROXY Routine 10/15/2018 Alcoholic cirrhosis of Results for 7:28 AM CDT liver with ascites (HCC) this procedure Pre-transplant evaluation are in the for liver transplant results section. IRON, TIBC, % SAT. Routine 10/15/2018 Alcoholic cirrhosis of Results for (WITHOUT FERRITIN) 7:28 AM CDT liver with ascites (HCC) this procedure Pre-transplant evaluation are in the for liver transplant results section. TRANSFERRIN Routine 10/15/2018 Alcoholic cirrhosis of Results for 7:28 AM CDT liver with ascites (HCC) this procedure Pre-transplant evaluation are in the for liver transplant results section. CBC W/PLT COUNT & AUTO Routine 10/15/2018 Alcoholic cirrhosis of Results for DIFFERENTIAL 7:28 AM CDT liver with ascites (HCC) this procedure Pre-transplant evaluation are in the for liver transplant results section. APTT Routine 10/15/2018 Alcoholic cirrhosis of Results for 7:28 AM CDT liver with ascites (HCC) this procedure Pre-transplant evaluation are in the for liver transplant results section. PROTHROMBIN TIME/INR Routine 10/15/2018 Alcoholic cirrhosis of Results for 7:28 AM CDT liver with ascites (HCC) this procedure Pre-transplant evaluation are in the for liver transplant results section. PHOSPHORUS Routine 10/15/2018 Alcoholic cirrhosis of Results for 7:28 AM CDT liver with ascites (HCC) this procedure Pre-transplant evaluation are in the for liver transplant results section. MAGNESIUM Routine 10/15/2018 Alcoholic cirrhosis of Results for 7:28 AM CDT liver with ascites (HCC) this procedure Pre-transplant evaluation are in the for liver transplant results section. GAMMA GLUTAMYL Routine 10/15/2018 Alcoholic cirrhosis of Results for TRANSFERASE (GGT) 7:28 AM CDT liver with ascites (HCC) this procedure Pre-transplant evaluation are in the for liver transplant results section. BILIRUBIN, DIRECT Routine 10/15/2018 Alcoholic cirrhosis of Results for 7:28 AM CDT liver with ascites (HCC) this procedure Pre-transplant evaluation are in the for liver transplant results section. COMPREHENSIVE Routine 10/15/2018 Alcoholic cirrhosis of Results for METABOLIC PANEL 7:28 AM CDT liver with ascites (HCC) this procedure Pre-transplant evaluation are in the for liver transplant results section. FIBRINOGEN Routine 10/15/2018 Alcoholic cirrhosis of Results for 7:28 AM CDT liver with ascites (HCC) this procedure Pre-transplant evaluation are in the for liver transplant results section. T SPOT TB Routine 10/15/2018 Alcoholic cirrhosis of Results for 7:27 AM CDT liver with ascites (HCC) this procedure Pre-transplant evaluation are in the for liver transplant results section. CALCIUM, IONIZED Routine 10/15/2018 Alcoholic cirrhosis of Results for 7:27 AM CDT liver with ascites (HCC) this procedure Pre-transplant evaluation are in the for liver transplant results section. TYPE AND SCREEN, Routine 10/15/2018 Alcoholic cirrhosis of Results for AUTOMATED 7:25 AM CDT liver with ascites (HCC) this procedure Pre-transplant evaluation are in the for liver transplant results section. CAROTID DOPPLER Routine 10/14/2018 Alcoholic cirrhosis of Results for BILATERAL 12:10 PM CDT liver with ascites (HCC) this procedure Pre-transplant evaluation are in the for liver transplant results section. XR MANDIBLE MIN 4 Routine 10/14/2018 Alcoholic cirrhosis of Results for VIEWS 11:41 AM CDT liver with ascites (HCC) this procedure Pre-transplant evaluation are in the for liver transplant results section. XR CHEST 2 VIEWS Routine 10/14/2018 Alcoholic cirrhosis of Results for 11:31 AM CDT liver with ascites (HCC) this procedure Pre-transplant evaluation are in the for liver transplant results section. XR DXA BONE DENSITY Routine 10/14/2018 Alcoholic cirrhosis of Results for STUDY 11:29 AM CDT liver with ascites (HCC) this procedure Pre-transplant evaluation are in the for liver transplant results section. (CELLAVISION MANUAL Routine 10/05/2018 Alcoholic cirrhosis of Results for DIFF) 9:49 AM CDT liver with ascites (HCC) this procedure are in the results section. CBC W/PLT COUNT & AUTO Routine 10/05/2018 Alcoholic cirrhosis of Results for DIFFERENTIAL 9:49 AM CDT liver with ascites (HCC) this procedure are in the results section. PROTHROMBIN TIME/INR Routine 10/05/2018 Alcoholic cirrhosis of Results for 9:49 AM CDT liver with ascites (HCC) this procedure are in the results section. CBC W/PLT COUNT & AUTO Routine 10/05/2018 Alcoholic cirrhosis of Results for DIFFERENTIAL 9:49 AM CDT liver with ascites (HCC) this procedure are in the results section. HEPATIC FUNCTION PANEL Routine 10/05/2018 Alcoholic cirrhosis of Results for 9:49 AM CDT liver with ascites (HCC) this procedure are in the results section. BASIC METABOLIC PANEL Routine 10/05/2018 Alcoholic cirrhosis of Results for (7) 9:49 AM CDT liver with ascites (HCC) this procedure are in the results section. POCT-GLUCOSE METER Routine 09/17/2018 Results for 7:54 AM CDT this procedure are in the results section. CBC W/PLT COUNT & AUTO Routine 09/17/2018 Results for DIFFERENTIAL 3:53 AM CDT this procedure are in the results section. PROTHROMBIN TIME/INR Routine 09/17/2018 Results for 3:53 AM CDT this procedure are in the results section. MAGNESIUM Routine 09/17/2018 Results for 3:53 AM CDT this procedure are in the results section. COMPREHENSIVE Routine 09/17/2018 Results for METABOLIC PANEL 3:53 AM CDT this procedure are in the results section. CBC W/PLT COUNT & AUTO Routine 09/17/2018 Results for DIFFERENTIAL 3:53 AM CDT this procedure are in the results section. POCT-GLUCOSE METER Routine 09/17/2018 Results for 12:31 AM CDT this procedure are in the results section. POCT-GLUCOSE METER Routine 09/16/2018 Results for 6:44 PM CDT this procedure are in the results section. MR ABDOMEN Routine 09/16/2018 Results for WITH/WITHOUT IV 6:05 PM CDT this procedure CONTRAST are in the results section. POCT-GLUCOSE METER Routine 09/16/2018 Results for 12:43 PM CDT this procedure are in the results section. URINALYSIS W/ Routine 09/16/2018 Results for MICROSCOPIC 10:23 AM CDT this procedure are in the results section. MAGNESIUM Routine 09/16/2018 Results for 9:04 AM CDT this procedure are in the results section. COMPREHENSIVE Routine 09/16/2018 Results for METABOLIC PANEL 9:04 AM CDT this procedure are in the results section. CBC W/PLT COUNT & AUTO Routine 09/16/2018 Results for DIFFERENTIAL 4:46 AM CDT this procedure are in the results section. PROTHROMBIN TIME/INR Routine 09/16/2018 Results for 4:46 AM CDT this procedure are in the results section. CBC W/PLT COUNT & AUTO Routine 09/16/2018 Results for DIFFERENTIAL 4:46 AM CDT this procedure are in the results section. FERRITIN Routine 09/16/2018 Results for 4:46 AM CDT this procedure are in the results section. HEPATITIS C ANTIBODY Routine 09/16/2018 Results for 4:46 AM CDT this procedure are in the results section. ALPHA FETOPROTEIN Routine 09/16/2018 Results for (AFP), TUMOR MARKER 4:46 AM CDT this procedure are in the results section. XR CHEST 1 VIEW STAT 09/15/2018 Results for PORTABLE/BEDSIDE 6:58 AM CDT this procedure are in the results section. SOLUBLE LIVER ANTIGEN Routine 09/15/2018 Results for (SLA) 4:49 AM CDT this procedure are in the results section. ACTIN (SMOOTH MUSCLE) Routine 09/15/2018 Results for ANTIBODY, IGG 4:48 AM CDT this procedure are in the results section. ANTI-MITOCHONDRIAL AB, Routine 09/15/2018 REFLEX TO TITER 4:46 AM CDT LIVER-KIDNEY MICROSOME Routine 09/15/2018 Results for AB 4:45 AM CDT this procedure are in the results section. CBC W/PLT COUNT & AUTO Routine 09/15/2018 Results for DIFFERENTIAL 4:43 AM CDT this procedure are in the results section. CERULOPLASMIN Routine 09/15/2018 Results for 4:43 AM CDT this procedure are in the results section. [id number]\\, Routine 09/15/2018 Results for SERUM 4:43 AM CDT this procedure are in the results section. PROTHROMBIN TIME/INR Routine 09/15/2018 Results for 4:43 AM CDT this procedure are in the results section. MAGNESIUM Routine 09/15/2018 Results for 4:43 AM CDT this procedure are in the results section. COMPREHENSIVE Routine 09/15/2018 Results for METABOLIC PANEL 4:43 AM CDT this procedure are in the results section. CBC W/PLT COUNT & AUTO Routine 09/15/2018 Results for DIFFERENTIAL 4:43 AM CDT this procedure are in the results section. DRUG SCREEN, URINE, Routine 09/14/2018 TRANSPLANT 6:22 PM CDT HEPATITIS B SURFACE STAT 09/14/2018 Results for ANTIGEN 6:07 PM CDT this procedure are in the results section. HEPATITIS B SURFACE STAT 09/14/2018 Results for ANTIBODY 6:07 PM CDT this procedure are in the results section. HEPATITIS B CORE STAT 09/14/2018 Results for ANTIBODY, TOTAL 6:07 PM CDT this procedure are in the results section. HEPATITIS A ANTIBODY, STAT 09/14/2018 Results for IGG 6:07 PM CDT this procedure are in the results section. IRON, TIBC, % SAT. STAT 09/14/2018 Results for (WITHOUT FERRITIN) 6:07 PM CDT this procedure are in the results section. ANTI-NUCLEAR ANTIBODY STAT 09/14/2018 Results for (HEIDY) 6:06 PM CDT this procedure are in the results section. US PARACENTESIS Routine 09/14/2018 Results for 3:38 PM CDT this procedure are in the results section. PROTEIN, BODY FLUID Routine 09/14/2018 Results for 3:06 PM CDT this procedure are in the results section. ALBUMIN, BODY FLUID Routine 09/14/2018 Results for 3:06 PM CDT this procedure are in the results section. BODY FLUID CELL COUNT Routine 09/14/2018 Results for WITH DIFFERENTIAL 3:06 PM CDT this procedure are in the results section. US ABDOMEN COMPLETE Routine 09/14/2018 Results for 8:40 AM CDT this procedure are in the results section. POCT-GLUCOSE METER Routine 09/14/2018 Results for 7:21 AM CDT this procedure are in the results section. CBC W/PLT COUNT & AUTO Routine 09/14/2018 Results for DIFFERENTIAL 4:41 AM CDT this procedure are in the results section. ETHANOL Routine 09/14/2018 Results for 4:41 AM CDT this procedure are in the results section. T4, FREE Routine 09/14/2018 Results for 4:41 AM CDT this procedure are in the results section. TSH Routine 09/14/2018 Results for 4:41 AM CDT this procedure are in the results section. CBC W/PLT COUNT & AUTO Routine 09/14/2018 Results for DIFFERENTIAL 4:41 AM CDT this procedure are in the results section. PROTHROMBIN TIME/INR Routine 09/14/2018 Results for 4:41 AM CDT this procedure are in the results section. HEPATIC FUNCTION PANEL Routine 09/14/2018 Results for 4:41 AM CDT this procedure are in the results section. BASIC METABOLIC PANEL Routine 09/14/2018 Results for (7) 4:41 AM CDT this procedure are in the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 City/[facility] Centercode Phone Number [address] [address] [place] Comprehensive metabolic panel (10/15/2018 7:28 AM CDT)Only the most recent of4 resultswithin the time period is included. Protein, Total 7.7 6.0 - 8.3 gm/dL [facility] Albumin 2.2 (L) 3.5 - 5.0 g/dL [facility] Alkaline Phosphatase 165 (H) 40 - 150 U/L [facility] Total Bilirubin 6.3 (H) 0.2 - 1.2 mg/dL [facility] Sodium 135 (L) 136 - 145 meq/L [facility] Potassium 4.1 3.5 - 5.1 meq/L [facility] Chloride 105 98 - 107 meq/L [facility] CO2 27 22 - 29 meq/L [facility] BUN 15 7 - 21 mg/dL [facility] Creatinine 0.88 0.57 - 1.25 mg/dL [facility] Glucose 84 70 - 105 mg/dL [facility] Calcium 8.9 8.4 - 10.2 mg/dL [facility] AST 125 (H) 5 - 34 U/L [facility] ALT 49 6 - 55 U/L [facility] EGFR 91Comment: ESTIMATED GFR mL/min/1.73 sq m [facility] IS NOT ACCURATE [facility] CREATININE CLEARANCE IN PREDICTING GLOMERULAR FILTRATION RATE. ESTIMATED GFR IS NOT APPLICABLE FOR DIALYSIS PATIENTS. Specimen Blood Narrative Performed At Specimen moderately icteric [facility] Performing Organization Address City/[facility]/Zipcode Phone Number [facility] [address] [place] [phone] CENTER T Spot TB (10/15/2018 7:27 AM CDT) T-Spot TB Negative [facility] Neg Ctrl Spot Count 0 [facility] Panel A Spot 1 [facility] Panel B Spot 0 [facility] Pos Ctrl Spot Ct 0 [facility] Scan Result [facility] Specimen Blood Narrative Performed At Performing Organization Address City/State/Zipcode Phone Number [facility] [address] [place] [address] LAB[address]ATOR[facility] [address] Calcium, Ionized (10/15/2018 7:27 AM CDT) Calcium, Ion 1.07 (L) 1.12 - 1.27 mmol/L [facility] pH, Blood 7.44 [facility] Specimen Blood Performing Organization Address City/State/Zipcode Phone Number [facility] [address] [place] [address] CENTER Type and screen, automated (10/15/2018 7:25 AM CDT) ABO/RH AUTOMATED (BEAKER) A POSITIVE [facility] Ab Scrn NEGATIVE [facility] Specimen Blood Performing Organization Address City/State/Zipcode Phone Number [facility] [address] [place] [address] Carotid doppler bilateral (10/14/2018 12:10 PM CDT) Ejection Fraction [facility] Specimen Impressions Performed At Right Impression [facility] 1. The internal, common and external carotid arteries are within normal limits. 2. The vertebral artery flow is antegrade and normal. 3. The subclavian artery is within normal limits where visualized. Left Impression 1. There is <50% diameter reduction (approximately 15% by 2-D measurement) in the internal carotid artery with a peak velocity of 63/17 cm/sec and heterogeneous plaque. 2. The common and external carotid arteries are within normal limits. 3. The vertebral artery flow is antegrade and normal. Conclusions Summary Carotid duplex scanning and color flow imaging were performed bilaterally. The arteries were adequately visualized. The right internal carotid artery was normal with no plaque visualized. The left internal carotid artery had <50% hemodynamically insignificant stenosis (approximately 15% by 2-D measurement) with heterogeneous plaque. The vertebral artery flow was antegrade and normal bilaterally. Signature Velocities are measured in cm/s ; Diameters are measured in cm Carotid Right Measurements + +----+----+-----+ +---- + + !Location !PSV !EDV !Angle!%Stenosis 2D!%Stenosis Doppler!Tortuosity ! + +----+----+-----+ +---- + + !Prox CCA !77.4!17!60 !! ! ! + +----+----+-----+ +---- + + !Dist CCA !66.3!18.8!60 !! ! ! + +----+----+-----+ +---- + + !Prox ICA !61!16.4!60 !! ! ! + +----+----+-----+ +---- + + !Dist ICA !106 !23.9!54 !! ! ! + +----+----+-----+ +---- + + !Prox ECA !77.4!14.7!60 !! ! ! + +----+----+-----+ +---- + + !Vertebral!54.5!15.8!60 !! ! ! + +----+----+-----+ +---- + + !Prox Subclavian!91.1!13.4!60 !! ! ! + +----+----+-----+ +---- + + - Additional Measurements:ICAPSV/CCAPSV 1.6.ICAEDV/CCAEDV 1.41. Carotid Left Measurements + +----+----+-----+ +---- + + !Location !PSV !EDV !Angle!%Stenosis 2D!%Stenosis Doppler!Tortuosity ! + +----+----+-----+ +---- + + !Prox CCA !82.1!14.1!60 !! ! ! + +----+----+-----+ +---- + + !Dist CCA !62.7!15.8!60 !! ! ! + +----+----+-----+ +---- + + !Prox ICA !63.3!17!60 !15% !<50% ! ! + +----+----+-----+ +---- + + !Dist ICA !99.2!34.1!48 !! ! ! + +----+----+-----+ +---- + + !Prox ECA !81.5!13.5!60 !! ! ! + +----+----+-----+ +---- + + !Vertebral!71!20.5!48 !! ! ! + +----+----+-----+ +---- + + !Prox Subclavian!82.8!12.9!48 !! ! ! + +----+----+-----+ +---- + + - Additional Measurements:ICAPSV/CCAPSV 1.58.ICAEDV/CCAEDV 2.42. Narrative Performed At [facility] - Carotid Duplex Study [facility] Demographics Patient NameERASTO PARADA Date of Study10/14/2018 Age53 Visit [id number] Gender Male Date of Birth1965 Referring Kelsie Lynn Room Number Physician Bench Assembler [employer] Marvin JacoboInterpreting Katheryn Heart MD Procedure Type of Study: Cerebral: Carotid, CAROTID DOPPLER, BILATERAL. Indications for Study:Liver transplant evaluation. Patient Status:Routine. Study Location:Vascular Lab. Technical Quality:Adequate visualization. Risk Factors History of Disease +---------+----+ + !Diagnosis!Date!Comments ! +---------+----+ + !Other!!Pre-Transplant Eval, Previous ETOH Abusse! +---------+----+ + Procedure Note Interface, External Ris In - 10/16/2018 1:34 PM CDT [facility] - Carotid Duplex Study Demographics Patient Name ERASTO PARADA Date of Study 10/14/2018 Age 53 Visit Number [id number] Gender Male Accession Number [id number] Date of 1965 Referring Kelsie Lynn Room Number Physician Bench Assembler [employer] Marvin Jacobo Interpreting Alia Hinton T Physician Procedure Type of Study: Cerebral: Carotid, CAROTID DOPPLER, BILATERAL. Indications for Study:Liver transplant evaluation. Patient Status:Routine. Study Location:Vascular Lab. Technical Quality:Adequate visualization. Risk Factors History of Disease +---------+----+ + !Diagnosis!Date!Comments ! +---------+----+ + !Other ! !Pre-Transplant Eval, Previous ETOH Abusse ! +---------+----+ + Impressions Right Impression 1. The internal, common and external carotid arteries are within normal limits. 2. The vertebral artery flow is antegrade and normal. 3. The subclavian artery is within normal limits where visualized. Left Impression 1. There is <50% diameter reduction (approximately 15% by 2-D measurement) in the internal carotid artery with a peak velocity of 63/17 cm/sec and heterogeneous plaque. 2. The common and external carotid arteries are within normal limits. 3. The vertebral artery flow is antegrade and normal. Conclusions Summary Carotid duplex scanning and color flow imaging were performed bilaterally. The arteries were adequately visualized. The right internal carotid artery was normal with no plaque visualized. The left internal carotid artery had <50% hemodynamically insignificant stenosis (approximately 15% by 2-D measurement) with heterogeneous plaque. The vertebral artery flow was antegrade and normal bilaterally. Signature Velocities are measured in cm/s ; Diameters are measured in cm Carotid Right Measurements + +----+----+-----+ + + + !Location !PSV !EDV !Angle!%Stenosis 2D!%Stenosis Doppler!Tortuosity ! + +----+----+-----+ + + + !Prox CCA !77.4!17 !60 ! ! ! ! + +----+----+-----+ + + + !Dist CCA !66.3!18.8!60 ! ! ! ! + +----+----+-----+ + + + !Prox ICA !61 !16.4!60 ! ! ! ! + +----+----+-----+ + + + !Dist ICA !106 !23.9!54 ! ! ! ! + +----+----+-----+ + + + !Prox ECA !77.4!14.7!60 ! ! ! ! + +----+----+-----+ + + + !Vertebral !54.5!15.8!60 ! ! ! ! + +----+----+-----+ + + + !Prox Subclavian!91.1!13.4!60 ! ! ! ! + +----+----+-----+ + + + - Additional Measurements:ICAPSV/CCAPSV 1.6.ICAEDV/CCAEDV 1.41. Carotid Left Measurements + +----+----+-----+ + + + !Location !PSV !EDV !Angle!%Stenosis 2D!%Stenosis Doppler!Tortuosity ! + +----+----+-----+ + + + !Prox CCA !82.1!14.1!60 ! ! ! ! + +----+----+-----+ + + + !Dist CCA !62.7!15.8!60 ! ! ! ! + +----+----+-----+ + + + !Prox ICA !63.3!17 !60 !15% !<50% ! ! + +----+----+-----+ + + + !Dist ICA !99.2!34.1!48 ! ! ! ! + +----+----+-----+ + + + !Prox ECA !81.5!13.5!60 ! ! ! ! + +----+----+-----+ + + + !Vertebral !71 !20.5!48 ! ! ! ! + +----+----+-----+ + + + !Prox Subclavian!82.8!12.9!48 ! ! ! ! + +----+----+-----+ + + + - Additional Measurements:ICAPSV/CCAPSV 1.58.ICAEDV/CCAEDV 2.42. Performing Organization Address City/[facility] Centercode Phone Number [facility] XR mandible 4 views min (10/14/2018 11:41 AM CDT) Specimen Narrative Performed At FINAL REPORT eROI CLINICAL HISTORY: Pre-transplant evaluation for liver transplant TECHNIQUE: Six views of the mandible COMPARISON: None IMPRESSION: There are suspected air-fluid levels in the bilateral maxillary sinuses suspicious for acute sinusitis. There is periapical lucency around bilateral molar teeth suspicious for periodontal disease. The visualized facial bones are otherwise intact. Further evaluation with maxillofacial CT is recommended. Signed: Yan Gooden MD Report Verified Date/Time:10/14/2018 12:14:27 Reading Location: [facility] Radiology Reading Room Procedure Note Interface, External Ris In - 10/14/2018 12:16 PM CDT FINAL REPORT CLINICAL HISTORY: Pre-transplant evaluation for liver transplant TECHNIQUE: Six views of the mandible COMPARISON: None IMPRESSION: There are suspected air-fluid levels in the bilateral maxillary sinuses suspicious for acute sinusitis. There is periapical lucency around bilateral molar teeth suspicious for periodontal disease. The visualized facial bones are otherwise intact. Further evaluation with maxillofacial CT is recommended. Signed: Yan Gooden MD Report Verified Date/Time: 10/14/2018 12:14:27 Reading Location: [facility] Reading Room Performing Organization Address [facility] Phone Number [employer] XR chest 2 views (10/14/2018 11:31 AM CDT) Specimen Narrative Performed At FINAL REPORT eROI INDICATION: Pre-transplant evaluation for liver transplant COMPARISON: September 15, 2018 TECHNIQUE: Chest radiograph, two views, PA and lateral. FINDINGS / IMPRESSION: Lung volumes are normal and no pneumonia or pulmonary edema is demonstrated. Heart shadow normal in size. No pneumothorax or pleural effusion demonstrated. Osseous structures unremarkable. Signed: Gregorio Lott MD Report Verified Date/Time:10/14/2018 13:28:52 Reading Location: [address] Radiology Reading Room Procedure Note Interface, External Ris In - 10/14/2018 1:31 PM CDT FINAL REPORT INDICATION: Pre-transplant evaluation for liver transplant COMPARISON: September 15, 2018 TECHNIQUE: Chest radiograph, two views, PA and lateral. FINDINGS / IMPRESSION: Lung volumes are normal and no pneumonia or pulmonary edema is demonstrated. Heart shadow normal in size. No pneumothorax or pleural effusion demonstrated. Osseous structures unremarkable. Signed: Gregorio Lott MD Report Verified Date/Time: 10/14/2018 13:28:52 Reading Location: [address] Radiology Reading Room Performing Organization Address City/State/Zipcode Phone Number eROI XR dxa bone density study (10/14/2018 11:29 AM CDT) Specimen Narrative Performed At FINAL REPORT eROI Bone mineral density study 10/14/2018. HISTORY PROVIDED: Pretransplant evaluation for liver transplant. COMPARISON: None available FINDINGS: Evaluation of the left and right femoral necks and lumbar spine was performed utilizing a bone densitometer. Data reflect young adult matched T-scores and age-matched Z scores. IMPRESSION: The left femoral neck bone mineral density is 1.010gm/cm2, the T-score is -0.5, and the Z-score is -0.3. The right femoral neck total bone mineral density is 1.058gm/cm2, the T-score is -0.1, and the Z-score is 0.1. The lumbar spine total bone mineral density is 1.110gm/cm2, the T-score is -0.9, and the Z-score is -1.4. Signed: Juanita Watkins MD Report Verified Date/Time:10/14/2018 12:10:27 Reading Location: [facility] Mammo Reading Room Procedure Note Interface, External Ris In - 10/14/2018 12:12 PM CDT FINAL REPORT Bone mineral density study 10/14/2018. HISTORY PROVIDED: Pretransplant evaluation for liver transplant. COMPARISON: None available FINDINGS: Evaluation of the left and right femoral necks and lumbar spine was performed utilizing a bone densitometer. Data reflect young adult matched T-scores and age-matched Z scores. IMPRESSION: The left femoral neck bone mineral density is 1.010gm/cm2, the T-score is -0.5, and the Z-score is -0.3. The right femoral neck total bone mineral density is 1.058gm/cm2, the T-score is -0.1, and the Z-score is 0.1. The lumbar spine total bone mineral density is 1.110gm/cm2, the T-score is -0.9, and the Z-score is -1.4. Signed: Juanita Watkins MD Report Verified Date/Time: 10/14/2018 12:10:27 Reading Location: [facility] Mammo Reading Room Performing Organization Address City/State/Zipcode Phone Number RIS Manual Differential (10/05/2018 9:49 AM CDT) % Neutros 75 % [facility] % Lymphs 13 % [facility] % Monos 12 % [facility] % Eos 1 % [facility] # Neutros 4.58 1.78 - 5.38 K/ul [facility] # Lymphs 0.79 (L) 1.32 - 3.57 K/ul [facility] # Monos 0.73 0.30 - 0.82 K/uL [facility] # Eos 0.06 0.04 - 0.54 K/uL [facility] Total Counted 100 [facility] WBC Morphology Normal [facility] Platelet Morphology Normal [facility] Anisocytosis 3+ many [facility] Macrocytes 3+ many [facility] Artifact Present [facility] Platelet Conc Decreased [facility] Specimen Blood Narrative Performed At Received comment: [facility] User comments: Slide comments: Performing Organization Address City/[facility] Centercode Phone Number [facility] [address] [place] [phone] [place] Hepatic function panel (10/05/2018 9:49 AM CDT)Only the most recent of3 resultswithin the time period is included. Protein, Total 8.2 6.0 - 8.3 gm/dL [facility] Albumin 2.3 (L) 3.5 - 5.0 g/dL [facility] Total Bilirubin 5.3 (H) 0.2 - 1.2 mg/dL [facility] Bilirubin, Direct 3.6 (H) 0.1 - 0.5 mg/dL [facility] Alkaline Phosphatase 162 (H) 40 - 150 U/L [facility] AST 180 (H) 5 - 34 U/L [facility] ALT 67 (H) 6 - 55 U/L [facility] Specimen Blood Narrative Performed At Specimen moderately icteric [facility] Performing Organization Address City/[facility]/Zipcode Phone Number [facility] [address] [place] [phone] [place] Basic Metabolic Panel (10/05/2018 9:49 AM CDT)Only the most recent of3 resultswithin the time period is included. Sodium 135 (L) 136 - 145 meq/L [facility] Potassium 4.3 3.5 - 5.1 meq/L [facility] Chloride 103 98 - 107 meq/L [facility] CO2 26 22 - 29 meq/L [facility] BUN 9 7 - 21 mg/dL [facility] Creatinine 0.78 0.57 - 1.25 mg/dL [facility] Glucose 75 70 - 105 mg/dL [facility] Calcium 8.1 (L) 8.4 - 10.2 mg/dL [facility] EGFR 105Comment: ESTIMATED GFR IS mL/min/1.73 sq m [facility] NOT ACCURATE CREATININE [facility] CENTER CLEARANCE IN PREDICTING GLOMERULAR FILTRATION RATE. ESTIMATED GFR IS NOT APPLICABLE FOR DIALYSIS PATIENTS. Specimen Blood Narrative Performed At Specimen moderately icteric [facility] Performing Organization Address City/[facility]/Zipcode Phone Number [address] [phone] [place] POC-Glucose meter (09/17/2018 7:54 AM CDT)Only the most recent of5 resultswithin the time period is included. POC-Glucose Meter 98Comment: TESTED AT 70 - 110 mg/dL [address] [address] Specimen Blood Performing Organization Address [facility]/Zipcode Phone Number [address] [address] [place] MR abdomen without & with IV contrast (09/16/2018 6:05 PM CDT) Specimen Narrative Performed At FINAL REPORT eROI TECHNIQUE: MRI of the abdomen WITHOUT and WITH intravenous contrast. INDICATION: Weight loss, unintended, non-localized abd pain please perform liver protocol for HCC screening. COMPARISON: Abdominal ultrasound from 09/14/2018. FINDINGS: LOWER THORAX: Unremarkable. LIVER: Nodular, cirrhotic liver. No focal hepatic lesions. BILIARY: Gallbladder is unremarkable. No biliary ductal dilatation or filling defect. SPLEEN: 13.3 cm splenomegaly. PANCREAS: No focal masses or ductal dilatation. ADRENALS: No adrenal nodules. KIDNEYS/URETERS: No hydronephrosis or solid mass lesions. PERITONEUM/RETROPERITONEUM: Small volume ascites with a majority of ascites in the right subdiaphragmatic region. LYMPH NODES: No lymphadenopathy. VESSELS: Splenorenal shunt. Conventional hepatic arterial anatomy. 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 The main portal vein measures 1.5 cm. GI TRACT: No distention or wall thickening. Diverticulosis scattered throughout the colon. BONES AND SOFT TISSUES: Diffuse anasarca. A fat signal lesion in the right back and measures 3.7 cm. This is consistent with a lipoma. IMPRESSION: 1.No suspicious focal hepatic lesions. 2.Cirrhosis with sequelae of portal hypertension including mild splenomegaly and small volume ascites. There is a single, small paraesophageal varix. 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 Signed: Bernabe Saenz MD Report Verified Date/Time:09/17/2018 08:58:29 Reading Location: [facility] Diagnostic Imaging Reading Room - [place] [address] Procedure Note Interface, External Ris In - 09/17/2018 9:00 AM CDT FINAL REPORT TECHNIQUE: MRI of the abdomen WITHOUT and WITH intravenous contrast. INDICATION: Weight loss, unintended, non-localized abd pain please perform liver protocol for HCC screening. COMPARISON: Abdominal ultrasound from 09/14/2018. FINDINGS: LOWER THORAX: Unremarkable. LIVER: Nodular, cirrhotic liver. No focal hepatic lesions. BILIARY: Gallbladder is unremarkable. No biliary ductal dilatation or filling defect. SPLEEN: 13.3 cm splenomegaly. PANCREAS: No focal masses or ductal dilatation. ADRENALS: No adrenal nodules. KIDNEYS/URETERS: No hydronephrosis or solid mass lesions. PERITONEUM/RETROPERITONEUM: Small volume ascites with a majority of ascites in the right subdiaphragmatic region. LYMPH NODES: No lymphadenopathy. VESSELS: Splenorenal shunt. Conventional hepatic arterial anatomy. 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 The main portal vein measures 1.5 cm. GI TRACT: No distention or wall thickening. Diverticulosis scattered throughout the colon. BONES AND SOFT TISSUES: Diffuse anasarca. A fat signal lesion in the right back and measures 3.7 cm. This is consistent with a lipoma. IMPRESSION: 1.No suspicious focal hepatic lesions. 2.Cirrhosis with sequelae of portal hypertension including mild splenomegaly and small volume ascites. There is a single, small paraesophageal varix. 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 Signed: Bernabe Saenz MD Report Verified Date/Time: 09/17/2018 08:58:29 Reading Location: [facility] Diagnostic Imaging Reading Room - [place] [address] Performing Organization Address City/State/Zipcode Phone Number [facility] Hepatitis C antibody (09/16/2018 4:46 AM CDT) Hepatitis C Ab Nonreactive Nonreactive [facility] Specimen Blood Performing Organization Address [facility] Phone Number [address] [address] CENTER Alpha fetoprotein (AFP), tumor marker (09/16/2018 4:46 AM CDT) Alpha-Fetoprotein <2.0 <10.0 ng/mL [facility] Specimen Blood Performing Organization Address [facility] Phone Number [address] [address] CENTER Ferritin (09/16/2018 4:46 AM CDT) Ferritin 489 (H) 5 - 275 ng/mL [facility] Specimen Blood Performing Organization Address [facility] Phone Number [address] [address] [phone] CENTER XR chest 1 view portable / bedside (09/15/2018 6:58 AM CDT) Specimen Narrative Performed At FINAL REPORT RIS INDICATION: r/o PNA COMPARISON: None TECHNIQUE: Single frontal view of the chest. FINDINGS: Lungs and pleura: Clear lungs. No effusion. Heart and mediastinum: Normal heart size. Unremarkable mediastinal contours. Osseous structures: No acute abnormality. Other: None. IMPRESSION: No acute intrathoracic abnormality. Signed: JR Jaquez Robert MD Report Verified Date/Time:09/15/2018 07:20:18 Reading Location: [facility] Radiology Reading Room Procedure Note Interface, External Ris In - 09/15/2018 7:41 AM CDT FINAL REPORT INDICATION: r/o PNA COMPARISON: None TECHNIQUE: Single frontal view of the chest. FINDINGS: Lungs and pleura: Clear lungs. No effusion. Heart and mediastinum: Normal heart size. Unremarkable mediastinal contours. Osseous structures: No acute abnormality. Other: None. IMPRESSION: No acute intrathoracic abnormality. Signed: JR Jaquez Robert MD Report Verified Date/Time: 09/15/2018 07:20:18 Reading Location: [facility] Radiology Reading Room Performing Organization Address [facility] Phone Number [facility] SOLUBLE LIVER ANTIGEN (SLA) (09/15/2018 4:49 AM CDT) Soluble Liver Antigen <20.1 See Note: [facility] (SLA) AutoantibodyY Comment: INCORPORATED Reference Range: NEGATIVE:0.0-20.0 EQUIVOCAL:20.1-24.9 POSITIVE:>=25.0 Antibodies to soluble liver antigen (SLA) appear to be directed against the UGA-suppressor tRNA associated protein. These antibodies are highly specific for autoimmune hepatitis (AIH) and may, rarely, be the only autoantibodies detected in serum from such patients. Antibodies to SLA are most closely associated with AIH type 1; the presence of these antibodies in patients with cryptogenic hepatitis suggests that these patients may have AIH type 1. Anti-SLA antibodies may be detected in some patients with the primary biliary cirrhosis-AIH overlap syndrome, but not in healthy controls. Specimen Blood Narrative Performed At Performing [facility] [address] [place] [address] Jake Singleton MD, PhD, MCKENZIE Performing Organization Address City/[facility] Phone Number [facility] [place] [address] INCORPORATED [address] [employer] [place] Actin (Smooth Muscle) Antibody, IgG (09/15/2018 4:48 AM CDT) Anti-Smooth Muscle Ab <20 See Note: [facility] Comment: INCORPORATED Reference Range: <20 NEGATIVE > OR=20 POSITIVE Antibodies recognizing actin are the main component of smooth muscle antibodies associated with autoimmune liver disease. Actin antibodies are found in approximately 75% of patients with autoimmune hepatitis (AIH) type 1, approximately 65% of patients with autoimmune cholangitis, approximately 30% of patients with primary biliary cirrhosis, and approximately 2% of healthy people. High values are closely correlated with AIH type 1. Specimen Blood Narrative Performed At Performing [facility] [employer] [id number] [email or web address] [address] Jake Singleton MD, PhD, MCKENZIE Performing Organization Address [facility] Phone [place] [address] INCORPORATED [id number] [employer] Anti-Mitochondrial Ab, reflex to titer (09/15/2018 4:46 AM CDT) Scan Result [facility] Specimen Blood Narrative Performed At Performing Organization Address [facility] [place] [address] INCORPORATED [address] [employer] LIVER-KIDNEY MICROSOME AB (09/15/2018 4:45 AM CDT) LKM-1 Antibody (IgG) <20.0 See Note: U [facility] Comment: INCORPORATED Reference Range: <=20.0 NEGATIVE 20.1-24.9EQUIVOCAL >=25.0 POSITIVE Anti-liver/kidney microsomal antibodies (Anti-LKM-1) were previously tested by indirect immunofluorescence (IF) using rodent liver/kidney substrate. Identification of a specific antibody target as cytochrome P450 IID6 has led to the current recombinant based RADHA. Antibodies to this cytochrome are present in approximately 70% of patients with autoimmune hepatitis type 2. This antibody is also present in approximately 10% of patients with hepatitis C infection. Specimen Blood Narrative Performed At Performing Lab [facility] [employer] [address] [place] [address] Jake Singleton MD, PhD, MCKENZIE Performing Organization Address [facility]/Zipcode Phone Number [facility] [place] [address] INCORPORATED [address] [facility] Tylev-[id number]-rvdnkldrpic (09/15/2018 4:43 AM CDT) A-1 Antitrypsin 119.90 90.00 - 200.00 mg/dL [facility] Specimen Blood Performing Organization Address [facility] Phone Number [facility] [address] [place] [address] [phone] CENTER Ceruloplasmin (09/15/2018 4:43 AM CDT) Ceruloplasmin 20 18 - 36 mg/dL [facility] Comment: Adults:Males: 18-36 mg/dL Females: 18-53 mg/dL Pediatrics:Males (mg/dL)Females (mg/dL) 0-30 Days 8-25 3-28 31 Days-11 Month [id number] 1-3 [id number] 4-6 [id number] 7-9 [id number] 10-12 [id number] 13-15 [id number] 16-18 [id number] The pediatric ranges are derived from the following criteria: Jan SJ, Yael JM, Charlene J et al Pediatric reference ranges for Sozg-2-Idzgaoyhwazwb and ceruloplasmin. Clin. Chem 1997; 43:S1999 Pediatric Reference Ranges, 2nd., SF Janet al. editors. [employer], [place], [place] 1997. Specimen Blood Narrative Performed At Performing Lab [facility] *SPL [facility], [address] [place] [phone] David Alegre MD, PhD Performing Organization Address [facility] Phone Number [facility] [place] [address] INCORPORATED [address] [facility] Hepatitis A antibody, IgG (09/14/2018 6:07 PM CDT) Hep A IgG Reactive (A) Nonreactive [facility] Specimen Blood Performing Organization Address City/[facility] Phone Number [address] [address] [phone] [place] Hepatitis B surface antibody (09/14/2018 6:07 PM CDT) Hep B S Ab <8.0 <8.0 mIU/mL [facility] Specimen Blood Performing Organization Address City/[facility] Phone Number [address] [address] [place] Hepatitis B surface antigen (09/14/2018 6:07 PM CDT) hepatitis B Surface Ag Nonreactive Nonreactive [facility] Specimen Blood Performing Organization Address [facility] Phone Number [address] [address] [place] Anti-Nuclear Antibody (HEIDY) (09/14/2018 6:06 PM CDT) HEIDY Negative Negative [facility] Specimen Blood Narrative Performed At Test performed by IFA method. [facility] Test performed by IFA method. Performing Organization Address [facility] Phone Number [address] [address] [place] US paracentesis (09/14/2018 3:38 PM CDT) Specimen Narrative Performed At FINAL REPORT Lighting by LED Indication: Ascites. Technique: Ultrasound guided paracentesis. Findings: Preliminary ultrasound confirms ascites. A safe window was identified in the right lower quadrant. The procedure was explained to the patient and informed consent was signed. The skin was marked and prepped in standard sterile fashion. Lidocaine was used for local anesthesia. A 5 Argentine needle catheter system was advanced into the peritoneal space. 6000 cc cloudy yellow fluid was taken off. Patient tolerated the procedure well. Impression: Ultrasound guided paracentesis. Signed: Gregorio Lott MD Report Verified Date/Time:09/14/2018 16:46:50 Reading Location: [facility] B1 C013Y CT Body Reading Room Procedure Note Interface, External Ris In - 09/14/2018 4:48 PM CDT FINAL REPORT Indication: Ascites. Technique: Ultrasound guided paracentesis. Findings: Preliminary ultrasound confirms ascites. A safe window was identified in the right lower quadrant. The procedure was explained to the patient and informed consent was signed. The skin was marked and prepped in standard sterile fashion. Lidocaine was used for local anesthesia. A 5 Argentine needle catheter system was advanced into the peritoneal space. 6000 cc cloudy yellow fluid was taken off. Patient tolerated the procedure well. Impression: Ultrasound guided paracentesis. Signed: Gregorio Lott MD Report Verified Date/Time: 09/14/2018 16:46:50 Reading Location: [facility] B1 C013Y CT Body Reading Room Performing Organization Address City/[facility]/Zipcode Phone Number [facility] Body fluid cell count with differential (09/14/2018 3:06 PM CDT) Appearance Hazy (A) Clear [facility] Color Yellow (A) Colorless, Straw [facility] RBCs 2,000 (H) <=1 /cu mm [facility] Adjusted WBC Count 270 (H) <=5 /cu mm [facility] Lining Cells 0 <=1 /cu mm [facility] % Segs 41 % [facility] % Lymphs 30 % [facility] % Monos 29 % [facility] % Eos 0 % [facility] % Baso 0 % [facility] Container Body Fluid EDTA Tube [facility] Specimen Body Fluid Performing Organization Address City/State/Zipcode Phone Number [address] [address] [phone] CENTER Protein, body fluid (09/14/2018 3:06 PM CDT) Protein, Fluid 0.9 g/dL [facility] Specimen Body Fluid Narrative Performed At Absence of reference range indicates that [facility] normals have not been defined. Assay performance has not been validated for this type of specimen. Performing Organization Address City/State/Zipcode Phone Number [address] [address] [phone] [place] Albumin, body fluid (09/14/2018 3:06 PM CDT) Albumin, Fluid 0.4 gm/dL [facility] Specimen Body Fluid Narrative Performed At Reference Range:No Normals [facility] Assay performance has not been validated for this type of specimen. Performing Organization Address [facility] Phone Number [address] [address] [place] US abdomen complete (09/14/2018 8:40 AM CDT) Specimen Narrative Performed At FINAL REPORT eROI INDICATION: Abdominal pain. TECHNIQUE: Abdominal ultrasound complete. COMPARISON: None. FINDINGS: Liver is nodular representing cirrhosis. No liver mass identified. Main portal vein is patent and measures 0.7 cm in diameter. The spleen is not enlarged measuring 11 x 2 cm. There is a moderate amount of perihepatic ascites. Patient is status post cholecystectomy. Common bile duct not visualized. Right kidney measures 10.4 x 6.8 x 6.1 cm. Left kidney measures 11.4 x 6.6 x 5.5 cm. No hydronephrosis, renal mass, or renal stone demonstrated. Pancreas, IVC, and aorta not visualized because of bowel gas. IMPRESSION: Cirrhosis with moderate ascites. Patent main portal vein. Signed: Gregorio Lott MD Report Verified Date/Time:09/14/2018 09:28:37 Reading Location: [facility] B1 C013Y CT Body Reading Room Procedure Note Interface, External Ris In - 09/14/2018 9:30 AM CDT FINAL REPORT INDICATION: Abdominal pain. TECHNIQUE: Abdominal ultrasound complete. COMPARISON: None. FINDINGS: Liver is nodular representing cirrhosis. No liver mass identified. Main portal vein is patent and measures 0.7 cm in diameter. The spleen is not enlarged measuring 11 x 2 cm. There is a moderate amount of perihepatic ascites. Patient is status post cholecystectomy. Common bile duct not visualized. Right kidney measures 10.4 x 6.8 x 6.1 cm. Left kidney measures 11.4 x 6.6 x 5.5 cm. No hydronephrosis, renal mass, or renal stone demonstrated. Pancreas, IVC, and aorta not visualized because of bowel gas. IMPRESSION: Cirrhosis with moderate ascites. Patent main portal vein. Signed: Gregorio Lott MD Report Verified Date/Time: 09/14/2018 09:28:37 Reading Location: [facility] C013Y CT Body Reading Room Performing Organization Address City/[facility] Phone Number [facility] TSH (09/14/2018 4:41 AM CDT) TSH 1.93 0.35 - 4.94 uIU/mL [facility] Specimen Blood Performing Organization Address [facility] Phone Number [address] [address] CENTER T4, free (09/14/2018 4:41 AM CDT) Free T4 0.87 0.70 - 1.48 ng/dL [facility] Specimen Blood Performing Organization Address City/[facility]/Zipcode Phone Number [address] [address] [phone] CENTER Blood Culture - Routine (Right Venipuncture) (09/14/2018 12:26 AM CDT) Result No growth in 5 days [facility] Specimen Blood Performing Organization Address [facility]/Zipcode Phone Number [address] [address] CENTER after 11/02/2017 Insurance Payer Benefit Plan / Subscriber ID Type Phone Address Group [employer]UM NON UNITED - [employer] NON-UNITED xxxxxxxxx MEDICAID MGD CARE STAR MEDICAID - MEDICAID [facility] COMM STAR xxxxxxxxx Medicaid Contracted MGD CARE PLAN Advance Directives For more information, please contact:[address] [phone] Code Status Date Activated Date Inactivated Comments Full Code 09/13/2018 10:24 PM 09/17/2018 2:42 PM This code status was determined by: Patient
--- OUTSIDE RECORDS SUMMARY | 2018-11-03 09:25 | XMS REPORT ---
:1965 Author Organization [facility] Address [address] [place] [address] [address] [place] [address] Care Team Providers Name Role Phone DANICA MARK FAUSTIN Unavailable Unavailable FRANK PAIGE Unavailable Unavailable Problems This patient has no known problems. Allergies, Adverse Reactions, Alerts This patient has no known allergies or adverse reactions. Medications This patient has no known medications. Results Test Description Test Time Test Comments Text Results Atomic Results Result Comments HEMOGLOBIN A1C 2018-10-15 14:39:00 Test Item Value Reference Range Comments HEMOGLOBIN A1C (ANA MARIA) (test sjcl=319) 4.0 % 4.3-6.1 MYOCARD IMAGING, MULTI, PHARM, [id number] 13:54:00FINAL REPORT PROCEDURE: MYOCARDIAL PERFUSION SPECT IMAGING (Rest/Stress)CPT CODE : 44958 INDICATION: Preoperative evaluation for liver transplantation CARDIOVASCULAR PROFILE:CAD History: NoneSymptoms: NoneRisk Factors: Cirrhosis, obesity, tobaccoBMI: 34.8Medications: Furosemide, propanolol, spironolactone STRESS PROTOCOL:Pharmacologic stress was achieved with a 10-second intravenous infusion of regadenoson 0.4 mg. The radiopharmaceutical was administered 30 seconds after the start of the regadenoson infusion. IMAGING PROTOCOL:10.2 mCi of Tc-99m sestamibi was injected intravenously at rest, and non-gated SPECT images were obtained. Then, 31.0 mCi of Tc-99m sestamibi was injected intravenously at peak stress, and gated SPECT images were obtained. Image quality is good. REST FINDINGS:HR: 55/minBP: 105/53 mmHgPrelim. EKG: Preliminary report from cardiology is currently unavailable.Perfusion: Normal.LV Volume: Normal.RV Volume: Normal. STRESS FINDINGS:HR: 61/min (36% of MPHR)BP: 103/50 mmHgPrelim. EKG: Preliminary report from cardiology is currently unavailable.Symptoms: None (treatment not required).Perfusion: Normal.Wall Motion: Normal (LVEF 64%).LV Volume: Not significantly changed from rest. IMPRESSION:1. Normal study.2. Normal myocardial perfusion. 3. Normal LVEF..4. Normal extracardiac tracer distribution.5. There is no prior study for comparison. Signed: Sage Owens MDReport Verified Date/Time: 10/15/2018 13:54 :29 Reading Location: [address] Reading Room CRYPTOCOCCAL [id number] 13:16:00 Test Item Value Reference Range Comments CRYPTOCOCCAL ANTIGEN, SERUM (BEAKER) (test Negative Negative, Interference zfly=9079) [id number] 13:16:00 Test Item Value Reference Range Comments RPR SCREEN (BEAKER) (test tppl=687) Nonreactive Nonreactive URINALYSIS W/ [id number] 11:42:00 Test Item Value Reference Range Comments COLOR (BEAKER) (test fxao=174) Dark Yellow CLARITY (BEAKER) (test roos=139) Clear SPECIFIC GRAVITY UA (BEAKER) (test ljoj=155) 1.019 1.001-1.035 PH UA (BEAKER) (test xgqa=731) 5.5 5.0-8.0 PROTEIN UA (BEAKER) (test jyrn=033) Negative Negative GLUCOSE UA (BEAKER) (test kxav=820) Negative Negative KETONES UA (BEAKER) (test vbhb=498) Negative Negative BILIRUBIN UA (BEAKER) (test zfom=414) Negative Negative BLOOD UA (BEAKER) (test oosd=128) Negative Negative NITRITE UA (BEAKER) (test vujz=950) Negative Negative LEUKOCYTE ESTERASE UA (BEAKER) (test bjyz=477) Negative Negative UROBILINOGEN UA (BEAKER) (test wave=375) 3.0 mg/dL 0.2-1.0 RBC UA (BEAKER) (test exrd=929) < /HPF WBC UA (BEAKER) (test zhre=486) 3 /HPF BACTERIA (BEAKER) (test obce=449) Rare MUCUS (BEAKER) (test ntfr=5381) Occasional SOURCE(BEAKER) (test qsbd=3123) CYTOMEGALOVIRUS ANTIBODY, [id number] 10:44:00 Test Item Value Reference Range Comments CYTOMEGALOVIRUS, IGG (BEAKER) (test gcmi=1685) Positive Negative, Equivocal CMV IgG Result Interpretation: </=0.8 Al Negative 0.9-1.0 Al Equivocal &gt ;/=1.1 Al PositiveCYTOMEGALOVIRUS ANTIBODY, [id number] 10:44:00 Test Item Value Reference Range Comments CYTOMEGALOVIRUS IGM ANTIBODY (BEAKER) (test Equivocal Negative, Equivocal fedg=8054) CMV IgM Result Interpretation: </=0.8 Al Negative 0.9-1.0 Al Equivocal >/=1.1 Al PositiveEBV ANTIBODY, [id number] 10:44:00 Test Item Value Reference Range Comments JOSEPH LAMAR VIRAL CAPSID ANTIGEN IGG (BEAKER) Positive Negative, Equivocal (test mavy=9857) Joseph Lamar Viral Capsid Antigen IgG Result Interpretation: </=0.8 Al Negative 0.9-1.0 Al Equivocal >/=1.1 Al PositiveEBV ANTIBODY, [id number] 10:44:00 Test Item Value Reference Range Comments JOSEPH LAMAR VIRAL CAPSID ANTIGEN IGM (BEAKER) Negative Negative, Equivocal (test wotz=0934) Joseph Lamar Viral Capsid Antigen IgM Result Interpretation: </=0.8 Al Negative 0.9-1.0 Al Equivocal >/=1.1 Al PositiveHEPATITIS B CORE ANTIBODY , [id number] 08:51:00 Test Item Value Reference Range Comments HEPATITIS B CORE IGM ANTIBODY (BEAKER) (test Nonreactive Nonreactive nvtv=044) HIV-1 ANTIGEN WITH HIV-1/2 [id number] 08:51:00 Test Item Value Reference Range Comments HIV-1 ANTIGEN WITH HIV 1\T\2 ANTIBODY (2) Nonreactive Nonreactive (BEAKER) (test uifd=9051) [id number] 08:49:00 Test Item Value Reference Range Comments PROSTATE SPECIFIC ANTIGEN (BEAKER) (test pvtc=087) 0.0 ng/mL 0.0-4.0 CARCINOEMBRYONIC ANTIGEN (CEA)2018-10-15 08:47:00 Test Item Value Reference Range Comments CARCINOEMBRYONIC ANTIGEN (BEAKER) (test cwta=443) 12.8 ng/mL 0.0-5.0 HEPATITIS A ANTIBODY, [id number] 08:47:00 Test Item Value Reference Range Comments HEPATITIS A IGM ANTIBODY (BEAKER) (test Nonreactive Nonreactive lwod=940) HEPATITIS B CORE ANTIBODY, [id number] 08:47:00 Test Item Value Reference Range Comments HEPATITIS B CORE TOTAL ANTIBODY (BEAKER) (test Nonreactive Nonreactive kete=846) VITAMIN D, [id number] 08:45:00 Test Item Value Reference Range Comments VITAMIN D 25-OH (BEAKER) (test uoop=2114) 8.9 ng/mL 6.6-49.9 Effective 01/29/2017: Reference Range ChangeNew: 6.6-49.9 ng/mL Previous: 13.0 -47.8 ng/mLRecommended Vitamin D Target Range: 30.0-40.0 ng/[id number] 08:26:00 Test Item Value Reference Range Comments MAGNESIUM (BEAKER) (test vkpl=086) 1.5 mg/dL 1.6-2.6 [id number] 08:26:00 Test Item Value Reference Range Comments PHOSPHORUS (BEAKER) (test xnpp=876) 3.9 mg/dL 2.3-4.7 URIC [id number] 08:26:00 Test Item Value Reference Range Comments URIC ACID (BEAKER) (test lajk=442) 3.7 mg/dL 2.6-7.2 Specimen moderately ictericCOMPREHENSIVE METABOLIC [id number] 08:26:00 Test Item Value Reference Range Comments TOTAL PROTEIN (BEAKER) 7.7 gm/dL 6.0-8.3 (test xosx=484) ALBUMIN (BEAKER) (test 2.2 g/dL 3.5-5.0 vlmf=2987) ALKALINE PHOSPHATASE 165 U/L 40-150 (BEAKER) (test mzyp=884) BILIRUBIN TOTAL (BEAKER) 6.3 mg/dL 0.2-1.2 (test snbt=679) SODIUM (BEAKER) (test 135 meq/L 136-145 dafa=609) POTASSIUM (BEAKER) (test 4.1 meq/L 3.5-5.1 ihah=523) CHLORIDE (BEAKER) (test 105 meq/L 98-107 lirw=785) CO2 (BEAKER) (test 27 meq/L 22-29 xfjz=279) BLOOD UREA NITROGEN 15 mg/dL 7-21 (BEAKER) (test egiw=813) CREATININE (BEAKER) (test 0.88 mg/dL 0.57-1.25 uqmt=323) GLUCOSE RANDOM (BEAKER) 84 mg/dL 70-105 (test xuyc=224) CALCIUM (BEAKER) (test 8.9 mg/dL 8.4-10.2 uamt=178) AST (SGOT) (BEAKER) (test 125 U/L 5-34 cvli=706) ALT (SGPT) (BEAKER) (test 49 U/L 6-55 ftcr=420) EGFR (BEAKER) (test 91 mL/min/1.73 sq m ESTIMATED GFR IS NOT atxn=3881) ACCURATE CREATININE CLEARANCE IN PREDICTING GLOMERULAR FILTRATION RATE. ESTIMATED GFR IS NOT APPLICABLE FOR DIALYSIS PATIENTS. Specimen moderately ictericLIPID [id number] 08:26:00 Test Item Value Reference Range Comments TRIGLYCERIDES (BEAKER) (test gbvo=920) 70 mg/dL CHOLESTEROL (BEAKER) (test sycm=916) 121 mg/dL HDL CHOLESTEROL (BEAKER) (test qdcl=317) 8 mg/dL LDL CHOLESTEROL CALCULATED (BEAKER) (test 99 mg/dL uwzl=484) Triglyceride Reference Range: Low Risk <150 Borderline 150- 199 High Risk 200-499 Very High Risk >=500Cholesterol Reference Range: Low Risk <200 Borderline 200-239 High Risk > 240HDL Cholesterol Reference Range: Low Risk >=60 High Risk <40LDL Cholesterol Reference Range: Optimal <100 Near Optimal 100-129 Borderline 130-159 High 160-189 Very High >=190 Specimen moderatelyictericBILIRUBIN, [id number] 08:26:00 Test Item Value Reference Range Comments BILIRUBIN DIRECT (BEAKER) (test elbg=203) 3.6 mg/dL 0.1-0.5 GAMMA GLUTAMYL TRANSFERASE (GGT)2018-10-15 08:26:00 Test Item Value Reference Range Comments GAMMA GLUTAMYL TRANSFERASE (BEAKER) (test qshu=495) 68 U/L 9-64 Specimen moderately [id number] 08:25:00 Test Item Value Reference Range Comments TRANSFERRIN (BEAKER) (test fknp=080) 106 mg/dL 174-382 Specimen moderately ictericIRON, TIBC, % SAT. (WITHOUT FERRITIN)2018-10-15 08:25 :00 Test Item Value Reference Range Comments IRON (BEAKER) (test frvl=031) 134.0 ug/dL 40.0-160.0 TOTAL IRON BINDING CAPACITY (BEAKER) (test 133 ug/dL 250-450 uwjz=999) IRON % SATURATION (2) (BEAKER) (test thqi=5841) 101 % 20-55 [id number] 08:22:00 Test Item Value Reference Range Comments ETHANOL (BEAKER) (test rqin=772) < mg/dL <=10 [id number] 08:14:00 Test Item Value Reference Range Comments FIBRINOGEN LEVEL (BEAKER) (test wfou=451) 201 mg/dl 225-434 [id number] 08:09:00 Test Item Value Reference Range Comments PARTIAL THROMBOPLASTIN TIME (BEAKER) (test 49.2 seconds 22.5-36.0 tdbg=964) CALCIUM, [id number] 08:09:00 Test Item Value Reference Range Comments CALCIUM IONIZED (BEAKER) (test opec=111) 1.07 mmol/L 1.12-1.27 PH, BLOOD (BEAKER) (test jwkm=9327) 7.44 PROTHROMBIN [id number] 08:08:00 Test Item Value Reference Range Comments PROTIME (BEAKER) (test stnv=424) 21.4 seconds 11.9-14.2 INR (BEAKER) (test ptls=246) 2.0 <=5.9 Effective 09/16/2018: PT Reference Range ChangeNew: 11.9-14.2 Previous: 11.7- 14.7RECOMMENDED COUMADIN/WARFARIN INR THERAPY RANGESSTANDARD DOSE: 2.0-3.0 Includes: PROPHYLAXIS for venous thrombosis, systemic embolization; TREATMENT for venous thrombosis and/or pulmonary embolus.HIGH RISK: Target INR is2.5-3.5 for patients wiht mechanical heart valves.CBC W/PLT COUNT & AUTO [id number] 07:59:00 Test Item Value Reference Range Comments WHITE BLOOD CELL COUNT (BEAKER) (test pzbx=673) 5.4 K/ L 3.5-10.5 RED BLOOD CELL COUNT (BEAKER) (test mntf=058) 3.03 M/ L 4.63-6.08 HEMOGLOBIN (BEAKER) (test gwav=722) 11.0 GM/DL 13.7-17.5 HEMATOCRIT (BEAKER) (test tzrm=135) 32.2 % 40.1-51.0 MEAN CORPUSCULAR VOLUME (BEAKER) (test ttcz=118) 106.3 fL 79.0-92.2 MEAN CORPUSCULAR HEMOGLOBIN (BEAKER) (test 36.3 pg 25.7-32.2 utgb=045) MEAN CORPUSCULAR HEMOGLOBIN CONC (BEAKER) (test 34.2 GM/DL 32.3-36.5 tort=059) RED CELL DISTRIBUTION WIDTH (BEAKER) (test 14.7 % 11.6-14.4 bgiz=858) PLATELET COUNT (BEAKER) (test rxui=633) 76 K/CU MM 150-450 MEAN PLATELET VOLUME (BEAKER) (test kyid=359) 11.8 fL 9.4-12.4 NUCLEATED RED BLOOD CELLS (BEAKER) (test 0 /100 WBC 0-0 xxdx=835) NEUTROPHILS RELATIVE PERCENT (BEAKER) (test 59 % fdli=387) LYMPHOCYTES RELATIVE PERCENT (BEAKER) (test 29 % yehe=662) MONOCYTES RELATIVE PERCENT (BEAKER) (test 6 % pyyd=091) EOSINOPHILS RELATIVE PERCENT (BEAKER) (test 4 % ejgy=633) BASOPHILS RELATIVE PERCENT (BEAKER) (test 1 % pemv=624) NEUTROPHILS ABSOLUTE COUNT (BEAKER) (test 3.19 K/ L 1.78-5.38 zfhq=298) LYMPHOCYTES ABSOLUTE COUNT (BEAKER) (test 1.58 K/ L 1.32-3.57 xjhs=139) MONOCYTES ABSOLUTE COUNT (BEAKER) (test bozi=755) 0.32 K/ L 0.30-0.82 EOSINOPHILS ABSOLUTE COUNT (BEAKER) (test 0.23 K/ L 0.04-0.54 lymh=438) BASOPHILS ABSOLUTE COUNT (BEAKER) (test hpkd=590) 0.03 K/ L 0.01-0.08 IMMATURE GRANULOCYTES-RELATIVE PERCENT (BEAKER) 0 % 0-1 (test ethe=2311) RAD, CHEST, 2 [id number] 13:28:00Reason for Exam:->Pre-transplant evaluation for liver transplantFINAL REPORT INDICATION: Pre-transplant evaluation for liver transplant COMPARISON: September 15, 2018 TECHNIQUE: Chest radiograph, two views, PA and lateral. FINDINGS / IMPRESSION: Lung volumes are normal and no pneumonia or pulmonary edema is demonstrated. Heart shadow normal in size. No pneumothorax or pleural effusion demonstrated. Osseous structures unremarkable. Signed: Gregorio Ivory Verified Date/ Time: 10/14/2018 13:28:52 Reading Location: [address] Radiology Reading Room 01: 28 PMRAD, MANDIBLE, MIN 4 [id number] 12:14:00Reason for Exam:->Pre- transplant evaluation for liver transplantFINAL REPORT CLINICAL HISTORY: Pre-transplant evaluation for liver transplantTECHNIQUE: Six views of the mandible COMPARISON: None IMPRESSION: There are suspected air- fluid levels in the bilateral maxillary sinuses suspicious for acute sinusitis. There is periapical lucency around bilateral molar teeth suspicious for periodontal disease. The visualized facial bones are otherwise intact. Further evaluation with maxillofacial CT is recommended. Signed: Yan Hamm Verified Date/Time: 10/14/2018 12:14:27 Reading Location: [facility] Radiology Reading Room Electronically signed by: YAN HAMM M.D. on 12:14 PMRAD, BONE DENSITY [id number] 12:10:00Reason for Exam:-> Pre-transplant evaluation for liver transplantFINAL REPORT Bone mineral density study 10/14/2018. HISTORY PROVIDED: Pretransplant evaluation for liver transplant. COMPARISON: None available FINDINGS: Evaluation of the left and right femoral necks and lumbar spine was performed utilizing a bone densitometer. Data reflect young adult matched T-scores and age-matched Z scores. IMPRESSION: The left femoral neck bone mineraldensity is 1.010gm/cm2, the T-score is -0.5, and the Z-score is -0.3. The right femoral neck total bone mineral density is 1.058gm/cm2, the T-score is -0.1, and the Z-score is 0.1. The lumbar spine total bone mineral density is 1.110gm/ cm2, the T-score is -0.9, and the Z-score is -1.4. Signed: Juanita Lai [facility] Verified Date/Time: 10/14/2018 12:10:27 Reading Location: [facility] Mammo Reading Room 12 :10 PMCBC W/PLT COUNT & AUTO [id number] 12:37:00 Test Item Value Reference Range Comments WHITE BLOOD CELL COUNT (BEAKER) (test biwa=606) 6.1 K/ L 3.5-10.5 RED BLOOD CELL COUNT (BEAKER) (test iqke=935) 3.15 M/ L 4.63-6.08 HEMOGLOBIN (BEAKER) (test uluk=172) 11.5 GM/DL 13.7-17.5 HEMATOCRIT (BEAKER) (test vlem=257) 34.6 % 40.1-51.0 MEAN CORPUSCULAR VOLUME (BEAKER) (test zlms=024) 109.8 fL 79.0-92.2 MEAN CORPUSCULAR HEMOGLOBIN (BEAKER) (test 36.5 pg 25.7-32.2 hwxx=785) MEAN CORPUSCULAR HEMOGLOBIN CONC (BEAKER) (test 33.2 GM/DL 32.3-36.5 zdoi=133) RED CELL DISTRIBUTION WIDTH (BEAKER) (test 15.4 % 11.6-14.4 ctic=170) PLATELET COUNT (BEAKER) (test sqqm=576) 83 K/CU MM 150-450 MEAN PLATELET VOLUME (BEAKER) (test cxcf=418) 12.3 fL 9.4-12.4 NUCLEATED RED BLOOD CELLS (BEAKER) (test 0 /100 WBC 0-0 vaid=424) (CELLAVISION MANUAL DIFF)2018-10-05 12:37:00 Test Item Value Reference Range Comments NEUTROPHILS - REL (CELLAVISION)(BEAKER) (test 75 % scwy=1589) LYMPHOCYTES - REL (CELLAVISION)(BEAKER) (test 13 % zmme=7794) MONOCYTES - REL (CELLAVISION)(BEAKER) (test 12 % ngdk=5105) EOSINOPHILS - REL (CELLAVISION)(BEAKER) (test 1 % dzwt=2108) NEUTROPHILS - ABS (CELLAVISION)(BEAKER) (test 4.58 K/ul 1.78-5.38 vlnh=6619) LYMPHOCYTES - ABS (CELLAVISION)(BEAKER) (test 0.79 K/ul 1.32-3.57 hyic=2904) MONOCYTES - ABS (CELLAVISION)(BEAKER) (test 0.73 K/uL 0.30-0.82 sztt=3832) EOSINOPHILS - ABS (CELLAVISION)(BEAKER) (test 0.06 K/uL 0.04-0.54 xokz=0201) TOTAL COUNTED (BEAKER) (test tfgm=1577) 100 WBC MORPHOLOGY (BEAKER) (test amsq=094) Normal PLT MORPHOLOGY (BEAKER) (test decn=917) Normal ANISOCYTOSIS (BEAKER) (test aczz=710) 3+ many MACROCYTES (BEAKER) (test dvwi=314) 3+ many ARTIFACT (CELLAVISION)(BEAKER) (test rtrk=5518) Present PLATELET CONCENTRATION (CELLAVISION)(BEAKER) (test Decreased ezqk=7638) Received comment: User comments: Slide comments:BASIC METABOLIC [id number] 12:30:00 Test Item Value Reference Range Comments SODIUM (BEAKER) (test 135 meq/L 136-145 gclg=229) POTASSIUM (BEAKER) (test 4.3 meq/L 3.5-5.1 idrp=068) CHLORIDE (BEAKER) (test 103 meq/L 98-107 zeng=497) CO2 (BEAKER) (test 26 meq/L 22-29 ppoc=608) BLOOD UREA NITROGEN 9 mg/dL 7-21 (BEAKER) (test recn=145) CREATININE (BEAKER) (test 0.78 mg/dL 0.57-1.25 ftbw=256) GLUCOSE RANDOM (BEAKER) 75 mg/dL 70-105 (test rrgz=132) CALCIUM (BEAKER) (test 8.1 mg/dL 8.4-10.2 jvyy=837) EGFR (BEAKER) (test 105 mL/min/1.73 sq m ESTIMATED GFR IS NOT nfvk=0353) ACCURATE CREATININE CLEARANCE IN PREDICTING GLOMERULAR FILTRATION RATE. ESTIMATED GFR IS NOT APPLICABLE FOR DIALYSIS PATIENTS. Specimen moderately ictericHEPATIC FUNCTION [id number] 12:30:00 Test Item Value Reference Range Comments TOTAL PROTEIN (BEAKER) (test tfey=747) 8.2 gm/dL 6.0-8.3 ALBUMIN (BEAKER) (test wkbj=2557) 2.3 g/dL 3.5-5.0 BILIRUBIN TOTAL (BEAKER) (test pxxx=957) 5.3 mg/dL 0.2-1.2 BILIRUBIN DIRECT (BEAKER) (test vrpf=746) 3.6 mg/dL 0.1-0.5 ALKALINE PHOSPHATASE (BEAKER) (test spbc=096) 162 U/L 40-150 AST (SGOT) (BEAKER) (test momu=863) 180 U/L 5-34 ALT (SGPT) (BEAKER) (test tkmp=254) 67 U/L 6-55 Specimen moderately ictericPROTHROMBIN [id number] 12:03:00 Test Item Value Reference Range Comments PROTIME (BEAKER) (test sfrb=091) 21.8 seconds 11.9-14.2 INR (BEAKER) (test ygiq=226) 2.0 <=5.9 Effective 09/16/2018: PT Reference Range ChangeNew: 11.9-14.2 Previous: 11.7- 14.7RECOMMENDED COUMADIN/WARFARIN INR THERAPY RANGESSTANDARD DOSE: 2.0-3.0 Includes: PROPHYLAXIS for venous thrombosis, systemic embolization; TREATMENT for venous thrombosis and/or pulmonary embolus.HIGH RISK: Target INR is2.5-3.5 for patients wiht mechanical heart valves.BLOOD [id number] 08:00:00 Test Item Value Reference Range Comments CULTURE (GITAAKER) (test kdss=5353) No growth in 5 days ANTI-MITOCHONDRIAL AB, REFLEX TO [id number] 08:08:00 Test Item Value Reference Range Comments SCAN RESULT (test eupt=[id number]) MR, ABDOMEN, [id number] 08:58:00FINAL REPORT TECHNIQUE: MRI of the abdomen WITHOUT and WITH intravenous contrast. INDICATION : Weight loss, unintended, non-localized abd painplease perform liver protocol for HCCscreening. COMPARISON: Abdominal ultrasound from 09/14/2018. FINDINGS: LOWER THORAX: Unremarkable. LIVER: Nodular, cirrhotic liver. No focal hepatic lesions. BILIARY: Gallbladder is unremarkable. No biliary ductal dilatation or filling defect.SPLEEN: 13.3 cm splenomegaly.PANCREAS: No focal masses or ductal dilatation. ADRENALS: No adrenal nodules.KIDNEYS/URETERS: No hydronephrosis or solid mass lesions. PERITONEUM/RETROPERITONEUM: Small volume ascites with a majority of ascites in the right subdiaphragmatic region.LYMPH NODES: No lymphadenopathy.VESSELS: Splenorenal shunt. Conventional hepatic arterial anatomy. A [...] aneurysm measures 1.1 cm. Signed: Bernabe Saenz Verified Date/Time: 09/17/2018 08:58:29 Reading Location: [facility] Diagnostic Imaging Reading Room - [place] [address] POCT- GLUCOSE [id number] 08:20:00 Test Item Value Reference Range Comments POC-GLUCOSE METER (BEAKER) 98 mg/dL 70-110 TESTED AT [facility] [address] [place] [address] (test hsch=1876) [facility] [address] COMPREHENSIVE METABOLIC [id number] 04:44:00 Test Item Value Reference Range Comments TOTAL PROTEIN (BEAKER) 5.9 gm/dL 6.0-8.3 (test efkl=517) ALBUMIN (BEAKER) (test 1.8 g/dL 3.5-5.0 vgas=0172) ALKALINE PHOSPHATASE 142 U/L 40-150 (BEAKER) (test uqrk=638) BILIRUBIN TOTAL (BEAKER) 6.3 mg/dL 0.2-1.2 (test tuje=960) SODIUM (BEAKER) (test 135 meq/L 136-145 uwzf=055) POTASSIUM (BEAKER) (test 3.7 meq/L 3.5-5.1 rzhf=272) CHLORIDE (BEAKER) (test 102 meq/L 98-107 okpl=530) CO2 (BEAKER) (test 31 meq/L 22-29 wpuo=934) BLOOD UREA NITROGEN 9 mg/dL 7-21 (BEAKER) (test zbjy=610) CREATININE (BEAKER) (test 0.71 mg/dL 0.57-1.25 fwcv=551) GLUCOSE RANDOM (BEAKER) 88 mg/dL 70-105 (test jyai=791) CALCIUM (BEAKER) (test 7.5 mg/dL 8.4-10.2 fhpc=319) AST (SGOT) (BEAKER) (test 99 U/L 5-34 tnkx=192) ALT (SGPT) (BEAKER) (test 31 U/L 6-55 bsal=565) EGFR (BEAKER) (test 117 mL/min/1.73 sq ESTIMATED GFR IS NOT qlat=3206) m ACCURATE CREATININE CLEARANCE IN PREDICTING GLOMERULAR FILTRATION RATE. ESTIMATED GFR IS NOT APPLICABLE FOR DIALYSIS PATIENTS. Specimen moderately [id number] 04:41:00 Test Item Value Reference Range Comments MAGNESIUM (BEAKER) (test mogq=557) 1.7 mg/dL 1.6-2.6 PROTHROMBIN [id number] 04:28:00 Test Item Value Reference Range Comments PROTIME (BEAKER) (test mdil=923) 24.3 seconds 11.9-14.2 INR (BEAKER) (test smjw=538) 2.3 <=5.9 Effective 09/16/2018: PT Reference Range ChangeNew: 11.9-14.2 Previous: 11.7- 14.7RECOMMENDED COUMADIN/WARFARIN INR THERAPY RANGESSTANDARD DOSE: 2.0-3.0 Includes: PROPHYLAXIS for venous thrombosis, systemic embolization; TREATMENT for venous thrombosis and/or pulmonary embolus.HIGH RISK: Target INR is2.5-3.5 for patients wiht mechanical heart valves.CBC W/PLT COUNT & AUTO [id number] 04:20:00 Test Item Value Reference Range Comments WHITE BLOOD CELL COUNT (BEAKER) (test jprc=624) 5.3 K/ L 3.5-10.5 RED BLOOD CELL COUNT (BEAKER) (test ukwl=231) 2.51 M/ L 4.63-6.08 HEMOGLOBIN (BEAKER) (test basq=112) 9.3 GM/DL 13.7-17.5 HEMATOCRIT (BEAKER) (test ymee=802) 28.0 % 40.1-51.0 MEAN CORPUSCULAR VOLUME (BEAKER) (test ysta=586) 111.6 fL 79.0-92.2 MEAN CORPUSCULAR HEMOGLOBIN (BEAKER) (test 37.1 pg 25.7-32.2 habi=187) MEAN CORPUSCULAR HEMOGLOBIN CONC (BEAKER) (test 33.2 GM/DL 32.3-36.5 fdff=620) RED CELL DISTRIBUTION WIDTH (BEAKER) (test 17.6 % 11.6-14.4 czmj=969) PLATELET COUNT (BEAKER) (test zecc=577) 60 K/CU MM 150-450 MEAN PLATELET VOLUME (BEAKER) (test vbls=516) 11.2 fL 9.4-12.4 NUCLEATED RED BLOOD CELLS (BEAKER) (test 0 /100 WBC 0-0 clfa=368) NEUTROPHILS RELATIVE PERCENT (BEAKER) (test 62 % hjau=993) LYMPHOCYTES RELATIVE PERCENT (BEAKER) (test 24 % qjnk=372) MONOCYTES RELATIVE PERCENT (BEAKER) (test 9 % brxb=431) EOSINOPHILS RELATIVE PERCENT (BEAKER) (test 4 % bpjd=818) BASOPHILS RELATIVE PERCENT (BEAKER) (test 1 % blnw=567) NEUTROPHILS ABSOLUTE COUNT (BEAKER) (test 3.28 K/ L 1.78-5.38 pzpc=258) LYMPHOCYTES ABSOLUTE COUNT (BEAKER) (test 1.24 K/ L 1.32-3.57 mrfg=175) MONOCYTES ABSOLUTE COUNT (BEAKER) (test fwvh=385) 0.46 K/ L 0.30-0.82 EOSINOPHILS ABSOLUTE COUNT (BEAKER) (test 0.23 K/ L 0.04-0.54 falk=922) BASOPHILS ABSOLUTE COUNT (BEAKER) (test fmup=813) 0.04 K/ L 0.01-0.08 IMMATURE GRANULOCYTES-RELATIVE PERCENT (BEAKER) 0 % 0-1 (test clkt=0970) POCT-GLUCOSE [id number] 00:39:00 Test Item Value Reference Range Comments POC-GLUCOSE METER (BEAKER) 98 mg/dL 70-110 TESTED AT [address] (test erck=8181) [facility] [id number] POCT-GLUCOSE [id number] 18:48:00 Test Item Value Reference Range Comments POC-GLUCOSE METER (BEAKER) 112 mg/dL 70-110 TESTED AT [address] (test huvp=8482) [facility] [id number] POCT-GLUCOSE [id number] 13:00:00 Test Item Value Reference Range Comments POC-GLUCOSE METER (BEAKER) 107 mg/dL 70-110 TESTED AT [address] (test hfab=7469) [place] [id number] URINALYSIS W/ [id number] 10:57:00 Test Item Value Reference Range Comments COLOR (BEAKER) (test phgs=764) Yellow CLARITY (BEAKER) (test nmbc=851) Clear SPECIFIC GRAVITY UA (BEAKER) (test umin=575) 1.005 1.001-1.035 PH UA (BEAKER) (test rzde=800) 6.5 5.0-8.0 PROTEIN UA (BEAKER) (test jvej=830) Negative Negative GLUCOSE UA (BEAKER) (test hznl=689) Negative Negative KETONES UA (BEAKER) (test brfj=546) Negative Negative BILIRUBIN UA (BEAKER) (test wcxv=412) Negative Negative BLOOD UA (BEAKER) (test xqyw=686) Negative Negative NITRITE UA (BEAKER) (test jfry=707) Negative Negative LEUKOCYTE ESTERASE UA (BEAKER) (test avvu=633) Negative Negative UROBILINOGEN UA (BEAKER) (test vrgb=943) 2.0 mg/dL 0.2-1.0 RBC UA (BEAKER) (test hshi=167) 0 /HPF WBC UA (BEAKER) (test joio=880) < /HPF SOURCE(BEAKER) (test bfsh=8259) Urine, Voided COMPREHENSIVE METABOLIC [id number] 10:29:00 Test Item Value Reference Range Comments TOTAL PROTEIN (BEAKER) 5.9 gm/dL 6.0-8.3 (test pzrt=512) ALBUMIN (BEAKER) (test 1.9 g/dL 3.5-5.0 tuxf=4709) ALKALINE PHOSPHATASE 139 U/L 40-150 (BEAKER) (test yath=179) BILIRUBIN TOTAL (BEAKER) 7.4 mg/dL 0.2-1.2 (test hpoi=275) SODIUM (BEAKER) (test 134 meq/L 136-145 vcrb=843) POTASSIUM (BEAKER) (test 3.8 meq/L 3.5-5.1 odue=518) CHLORIDE (BEAKER) (test 101 meq/L 98-107 iemm=685) CO2 (BEAKER) (test 27 meq/L 22-29 lxcs=556) BLOOD UREA NITROGEN 8 mg/dL 7-21 (BEAKER) (test awdm=836) CREATININE (BEAKER) (test 0.61 mg/dL 0.57-1.25 szhg=543) GLUCOSE RANDOM (BEAKER) 120 mg/dL 70-105 (test mzcj=781) CALCIUM (BEAKER) (test 7.6 mg/dL 8.4-10.2 ychr=762) AST (SGOT) (BEAKER) (test 112 U/L 5-34 raul=060) ALT (SGPT) (BEAKER) (test 34 U/L 6-55 lxix=850) EGFR (BEAKER) (test 139 mL/min/1.73 sq ESTIMATED GFR IS NOT grth=3950) m ACCURATE CREATININE CLEARANCE IN PREDICTING GLOMERULAR FILTRATION RATE. ESTIMATED GFR IS NOT APPLICABLE FOR DIALYSIS PATIENTS. Specimen moderately [id number] 10:24:00 Test Item Value Reference Range Comments MAGNESIUM (BEAKER) (test bzar=815) 1.7 mg/dL 1.6-2.6 ANTI-NUCLEAR ANTIBODY (HEIDY)2018-09-16 07:54:00 Test Item Value Reference Range Comments ANTI-NUCLEAR ANTIBODY (HEIDY) (BEAKER) (test Negative Negative mymu=935) Test performed by IFA method.Test performed by IFA method.[id number] 06: 21:00 Test Item Value Reference Range Comments FERRITIN (BEAKER) (test cvbz=294) 489 ng/mL 5-275 HEPATITIS C [id number] 05:42:00 Test Item Value Reference Range Comments HEPATITIS C ANTIBODY (BEAKER) (test noms=210) Nonreactive Nonreactive ALPHA FETOPROTEIN (AFP), TUMOR [id number] 05:42:00 Test Item Value Reference Range Comments ALPHA-FETOPROTEIN (BEAKER) (test blsa=7374) < ng/mL <10.0 PROTHROMBIN [id number] 05:23:00 Test Item Value Reference Range Comments PROTIME (BEAKER) (test wuaz=286) 24.7 seconds 11.9-14.2 INR (BEAKER) (test stdk=521) 2.4 <=5.9 RECOMMENDED COUMADIN/WARFARIN INR THERAPY RANGESSTANDARD DOSE: 2.0 - 3.0 Includes: PROPHYLAXIS forvenous thrombosis, systemic embolization; TREATMENT for venous thrombosis and/or pulmonary embolus.HIGH RISK: Target INR is 2.5-3.5 for patients with mechanical heart valves.CBC W/PLT COUNT & AUTO [id number] 05:15:00 Test Item Value Reference Range Comments WHITE BLOOD CELL COUNT (BEAKER) (test vozv=610) 5.4 K/ L 3.5-10.5 RED BLOOD CELL COUNT (BEAKER) (test ksxz=059) 2.65 M/ L 4.63-6.08 HEMOGLOBIN (BEAKER) (test plyb=835) 9.7 GM/DL 13.7-17.5 HEMATOCRIT (BEAKER) (test cpca=781) 28.8 % 40.1-51.0 MEAN CORPUSCULAR VOLUME (BEAKER) (test exqh=385) 108.7 fL 79.0-92.2 MEAN CORPUSCULAR HEMOGLOBIN (BEAKER) (test 36.6 pg 25.7-32.2 xzln=773) MEAN CORPUSCULAR HEMOGLOBIN CONC (BEAKER) (test 33.7 GM/DL 32.3-36.5 cjml=355) RED CELL DISTRIBUTION WIDTH (BEAKER) (test 17.4 % 11.6-14.4 qogj=818) PLATELET COUNT (BEAKER) (test ldky=156) 77 K/CU MM 150-450 MEAN PLATELET VOLUME (BEAKER) (test xgrg=426) 11.7 fL 9.4-12.4 NUCLEATED RED BLOOD CELLS (BEAKER) (test 0 /100 WBC 0-0 fpby=132) NEUTROPHILS RELATIVE PERCENT (BEAKER) (test 65 % asdi=520) LYMPHOCYTES RELATIVE PERCENT (BEAKER) (test 22 % wpku=976) MONOCYTES RELATIVE PERCENT (BEAKER) (test 8 % vswa=260) EOSINOPHILS RELATIVE PERCENT (BEAKER) (test 4 % wokm=966) BASOPHILS RELATIVE PERCENT (BEAKER) (test 1 % lsht=077) NEUTROPHILS ABSOLUTE COUNT (BEAKER) (test 3.52 K/ L 1.78-5.38 zgig=290) LYMPHOCYTES ABSOLUTE COUNT (BEAKER) (test 1.19 K/ L 1.32-3.57 gnwf=991) MONOCYTES ABSOLUTE COUNT (BEAKER) (test isca=166) 0.43 K/ L 0.30-0.82 EOSINOPHILS ABSOLUTE COUNT (BEAKER) (test 0.24 K/ L 0.04-0.54 hmlk=356) BASOPHILS ABSOLUTE COUNT (BEAKER) (test uayp=745) 0.03 K/ L 0.01-0.08 IMMATURE GRANULOCYTES-RELATIVE PERCENT (BEAKER) 1 % 0-1 (test pmos=0503) RAD, CHEST, 1 VIEW, NON [id number] 07:20:00Reason for exam:->r/o PNAShould this be performed at the bedside?->YesFINAL REPORT INDICATION: r/o PNA COMPARISON: None TECHNIQUE: Single frontal view of the chest. FINDINGS: Lungs and pleura: Clear lungs. No effusion.Heart and mediastinum: Normal heart size. Unremarkable mediastinal contours.Osseous structures: No acute abnormality.Other: None. IMPRESSION: No acute intrathoracic abnormality. Signed: JR Jaquez Robert MDReport Verified Date/Time: 09/15/2018 07:20:18 Reading Location: [facility] Radiology Reading Room [id number] 05:36:00 Test Item Value Reference Range Comments ALPHA-1 ANTITRYPSIN (BEAKER) (test shcd=719) 119.90 mg/dL 90.00-200.00 COMPREHENSIVE METABOLIC [id number] 05:30:00 Test Item Value Reference Range Comments TOTAL PROTEIN (BEAKER) 6.0 gm/dL 6.0-8.3 (test wbkc=922) ALBUMIN (BEAKER) (test 2.0 g/dL 3.5-5.0 qvhl=4044) ALKALINE PHOSPHATASE 156 U/L 40-150 (BEAKER) (test bxls=608) BILIRUBIN TOTAL (BEAKER) 7.9 mg/dL 0.2-1.2 (test jdiu=790) SODIUM (BEAKER) (test 131 meq/L 136-145 obxg=698) POTASSIUM (BEAKER) (test 4.0 meq/L 3.5-5.1 rghw=228) CHLORIDE (BEAKER) (test 103 meq/L 98-107 ejcu=553) CO2 (BEAKER) (test 25 meq/L 22-29 ejqu=781) BLOOD UREA NITROGEN 8 mg/dL 7-21 (BEAKER) (test gxjd=145) CREATININE (BEAKER) (test 0.57 mg/dL 0.57-1.25 ezgy=141) GLUCOSE RANDOM (BEAKER) 102 mg/dL 70-105 (test gjsr=085) CALCIUM (BEAKER) (test 7.5 mg/dL 8.4-10.2 uyqz=551) AST (SGOT) (BEAKER) (test 119 U/L 5-34 irfo=849) ALT (SGPT) (BEAKER) (test 36 U/L 6-55 fbeh=041) EGFR (BEAKER) (test 150 mL/min/1.73 sq ESTIMATED GFR IS NOT zblj=8554) m ACCURATE CREATININE CLEARANCE IN PREDICTING GLOMERULAR FILTRATION RATE. ESTIMATED GFR IS NOT APPLICABLE FOR DIALYSIS PATIENTS. Specimen moderately [id number] 05:25:00 Test Item Value Reference Range Comments MAGNESIUM (BEAKER) (test jzmy=367) 1.5 mg/dL 1.6-2.6 PROTHROMBIN [id number] 05:22:00 Test Item Value Reference Range Comments PROTIME (BEAKER) (test dlmo=636) 24.9 seconds 11.7-14.7 INR (BEAKER) (test twmt=675) 2.4 <=5.9 RECOMMENDED COUMADIN/WARFARIN INR THERAPY RANGESSTANDARD DOSE: 2.0 - 3.0 Includes: PROPHYLAXIS forvenous thrombosis, systemic embolization; TREATMENT for venous thrombosis and/or pulmonary embolus.HIGH RISK: Target INR is 2.5-3.5 for patients with mechanical heart valves.CBC W/PLT COUNT & AUTO [id number] 05:14:00 Test Item Value Reference Range Comments WHITE BLOOD CELL COUNT (BEAKER) (test yvxq=077) 4.1 K/ L 3.5-10.5 RED BLOOD CELL COUNT (BEAKER) (test otmt=527) 2.60 M/ L 4.63-6.08 HEMOGLOBIN (BEAKER) (test lwqf=178) 9.6 GM/DL 13.7-17.5 HEMATOCRIT (BEAKER) (test ukng=092) 29.5 % 40.1-51.0 MEAN CORPUSCULAR VOLUME (BEAKER) (test mbgu=361) 113.5 fL 79.0-92.2 MEAN CORPUSCULAR HEMOGLOBIN (BEAKER) (test 36.9 pg 25.7-32.2 cver=257) MEAN CORPUSCULAR HEMOGLOBIN CONC (BEAKER) (test 32.5 GM/DL 32.3-36.5 hnaq=640) RED CELL DISTRIBUTION WIDTH (BEAKER) (test 17.5 % 11.6-14.4 lzev=622) PLATELET COUNT (BEAKER) (test rfbj=229) 50 K/CU MM 150-450 MEAN PLATELET VOLUME (BEAKER) (test ntnn=837) 10.9 fL 9.4-12.4 NUCLEATED RED BLOOD CELLS (BEAKER) (test 1 /100 WBC 0-0 jzrk=194) NEUTROPHILS RELATIVE PERCENT (BEAKER) (test 65 % ydta=550) LYMPHOCYTES RELATIVE PERCENT (BEAKER) (test 21 % hgiz=664) MONOCYTES RELATIVE PERCENT (BEAKER) (test 9 % ccdo=558) EOSINOPHILS RELATIVE PERCENT (BEAKER) (test 4 % ixmr=214) BASOPHILS RELATIVE PERCENT (BEAKER) (test 1 % elhh=614) NEUTROPHILS ABSOLUTE COUNT (BEAKER) (test 2.63 K/ L 1.78-5.38 rhrl=121) LYMPHOCYTES ABSOLUTE COUNT (BEAKER) (test 0.85 K/ L 1.32-3.57 zniv=985) MONOCYTES ABSOLUTE COUNT (BEAKER) (test eurb=417) 0.38 K/ L 0.30-0.82 EOSINOPHILS ABSOLUTE COUNT (BEAKER) (test 0.16 K/ L 0.04-0.54 lsmd=358) BASOPHILS ABSOLUTE COUNT (BEAKER) (test gpmk=286) 0.03 K/ L 0.01-0.08 IMMATURE GRANULOCYTES-RELATIVE PERCENT (BEAKER) 1 % 0-1 (test yhgs=4134) HEPATITIS A ANTIBODY, [id number] 19:16:00 Test Item Value Reference Range Comments HEPATITIS A IGG ANTIBODY (BEAKER) (test tfsc=3242) Reactive Nonreactive HEPATITIS B SURFACE [id number] 19:15:00 Test Item Value Reference Range Comments HEPATITIS B SURFACE ANTIBODY (BEAKER) (test < mIU/mL <8.0 nirw=151) HEPATITIS B SURFACE [id number] 19:11:00 Test Item Value Reference Range Comments HEPATITIS B SURFACE ANTIGEN (2) (BEAKER) (test Nonreactive Nonreactive njcu=0998) HEPATITIS B CORE ANTIBODY, [id number] 19:11:00 Test Item Value Reference Range Comments HEPATITIS B CORE TOTAL ANTIBODY (BEAKER) (test Nonreactive Nonreactive kryb=247) IRON, TIBC, % SAT. (WITHOUT FERRITIN)2018-09-14 18:50:00 Test Item Value Reference Range Comments IRON (BEAKER) (test tgkf=655) 82.0 ug/dL 40.0-160.0 TOTAL IRON BINDING CAPACITY (BEAKER) (test 80 ug/dL 250-450 znuo=104) IRON % SATURATION (2) (BEAKER) (test khrd=5610) 103 % 20-55 PROTEIN, BODY [id number] 17:49:00 Test Item Value Reference Range Comments PROTEIN FLUID (BEAKER) (test elwb=999) 0.9 g/dL Absence of reference range indicates that normals have not been defined.Assay performance has not been validated for this type of specimen.U/S, [id number] 16:46:00Page hospitalist team 6 with ?s Reason for exam:- >ultrasound guided paracentesis with cell count,albuminFINAL REPORT Indication: Ascites. Technique: Ultrasound guided paracentesis. Findings:Preliminary ultrasound confirms ascites. A safe window was identified in the right lower quadrant. The procedure was explained to the patient and informed consent was signed. The skin was marked and prepped in standard sterile fashion. Lidocaine was used for local anesthesia. A 5 Austrian needlecatheter system was advanced into the peritoneal space. 6000 cc cloudy yellow fluid was taken off. Patient tolerated the procedure well. Impression: Ultrasound guided paracentesis. Signed: Gregorio Ivory MDReport Verified Date/ Time: 09/14/2018 16:46:50 Reading Location: [facility] B1 C013Y CT Body ReadingRoom BODY FLUID CELL COUNT WITH [id number] 16:28:00 Test Item Value Reference Range Comments APPEARANCE FLUID (BEAKER) (test xiil=155) Hazy Clear COLOR FLUID (BEAKER) (test dzjp=935) Yellow Colorless, Straw RBC FLUID (BEAKER) (test arlx=283) 2000 /cu mm <=1 ADJUSTED WBC FLUID (BEAKER) (test azxo=4558) 270 /cu mm <=5 LINING CELLS (BEAKER) (test pcfv=5742) 0 /cu mm <=1 NEUTROPHILS FLUID (BEAKER) (test fggs=2684) 41 % LYMPHS FLUID (BEAKER) (test oido=132) 30 % MONO/MACROPHAGE FLUID (BEAKER) (test qasv=694) 29 % EOSINOPHILS FLUID (BEAKER) (test xlwh=449) 0 % BASO FLUID (BEAKER) (test mspq=535) 0 % CONTAINER BODY FLUID (BEAKER) (test dtdf=4844) EDTA Tube ALBUMIN, BODY [id number] 16:05:00 Test Item Value Reference Range Comments ALBUMIN FLUID (BEAKER) (test krpj=863) 0.4 gm/dL Reference Range: No Normals Assay performance has not been validated for this type of specimen.U/S, ABDOMINAL, [id number] 09:28:00Reason for exam:-&gt ;abdominal painFINAL REPORT INDICATION: Abdominal pain. TECHNIQUE: Abdominal ultrasound complete. COMPARISON: None. FINDINGS:Liver is nodular representing cirrhosis.No liver mass identified.Main portal vein is patent and measures 0.7 cm in diameter.The spleen is not enlarged measuring 11 x 2 cm.There is a moderate amount of perihepatic ascites.Patient is status post cholecystectomy.Common bile duct not visualized.Right kidney measures 10.4 x 6.8 x 6.1 cm.Left kidney measures 11.4 x 6.6 x 5.5cm.No hydronephrosis, renal mass, or renal stone demonstrated.Pancreas, IVC, and aorta not visualized because of bowel gas. IMPRESSION: Cirrhosis with moderate ascites.Patent main portal vein. Signed: Gregorio Ivory MDReport Verified Date/Time: 09/14/2018 09:28:37 Reading Location: [facility] B1 C013Y CT Body Reading Room T4, [id number] 08:43:00 Test Item Value Reference Range Comments FREE T4 (BEAKER) (test vpve=603) 0.87 ng/dL 0.70-1.48 POCT-GLUCOSE [id number] 07:33:00 Test Item Value Reference Range Comments POC-GLUCOSE METER (BEAKER) 94 mg/dL 70-110 TESTED AT [facility] [address] [facility] (test nxdz=2539) [facility] [address] [id number] 06:26:00 Test Item Value Reference Range Comments THYROID STIMULATING HORMONE (BEAKER) (test 1.93 uIU/mL 0.35-4.94 fhlj=581) BASIC METABOLIC [id number] 05:52:00 Test Item Value Reference Range Comments SODIUM (BEAKER) (test 130 meq/L 136-145 vmqq=085) POTASSIUM (BEAKER) (test 5.1 meq/L 3.5-5.1 Specimen slightly nlkn=076) hemolyzed CHLORIDE (BEAKER) (test 102 meq/L 98-107 wwva=271) CO2 (BEAKER) (test 25 meq/L 22-29 gsls=252) BLOOD UREA NITROGEN 6 mg/dL 7-21 (BEAKER) (test oijz=017) CREATININE (BEAKER) (test 0.57 mg/dL 0.57-1.25 Specimen slightly bejx=858) hemolyzed GLUCOSE RANDOM (BEAKER) 99 mg/dL 70-105 (test mcuz=106) CALCIUM (BEAKER) (test 7.6 mg/dL 8.4-10.2 lvjl=455) EGFR (BEAKER) (test 150 mL/min/1.73 sq m ESTIMATED GFR IS NOT fnqs=8925) ACCURATE CREATININE CLEARANCE IN PREDICTING GLOMERULAR FILTRATION RATE. ESTIMATED GFR IS NOT APPLICABLE FOR DIALYSIS PATIENTS. Specimen moderately ictericHEPATIC FUNCTION [id number] 05:52:00 Test Item Value Reference Range Comments TOTAL PROTEIN (BEAKER) (test 6.9 gm/dL 6.0-8.3 Specimen slightly hemolyzed hsgt=008) ALBUMIN (BEAKER) (test 1.9 g/dL 3.5-5.0 Specimen slightly hemolyzed zokk=0459) BILIRUBIN TOTAL (BEAKER) (test 9.0 mg/dL 0.2-1.2 Specimen slightly hemolyzed rqln=987) BILIRUBIN DIRECT (BEAKER) (test 5.1 mg/dL 0.1-0.5 Specimen slightly hemolyzed xwxi=519) ALKALINE PHOSPHATASE (BEAKER) 174 U/L 40-150 (test igdd=725) AST (SGOT) (BEAKER) (test 178 U/L 5-34 Specimen slightly hemolyzed ymmx=236) ALT (SGPT) (BEAKER) (test 48 U/L 6-55 Specimen slightly hemolyzed eigy=777) Specimen moderately [id number] 05:43:00 Test Item Value Reference Range Comments ETHANOL (BEAKER) (test ctfl=353) < mg/dL <=10 PROTHROMBIN [id number] 05:10:00 Test Item Value Reference Range Comments PROTIME (BEAKER) (test suno=016) 22.1 seconds 11.7-14.7 INR (BEAKER) (test wgjl=745) 2.1 <=5.9 RECOMMENDED COUMADIN/WARFARIN INR THERAPY RANGESSTANDARD DOSE: 2.0 - 3.0 Includes: PROPHYLAXIS forvenous thrombosis, systemic embolization; TREATMENT for venous thrombosis and/or pulmonary embolus.HIGH RISK: Target INR is 2.5-3.5 for patients with mechanical heart valves.CBC W/PLT COUNT & AUTO [id number] 04:57:00 Test Item Value Reference Range Comments WHITE BLOOD CELL COUNT (BEAKER) (test xwww=826) 6.7 K/ L 3.5-10.5 RED BLOOD CELL COUNT (BEAKER) (test untr=225) 2.74 M/ L 4.63-6.08 HEMOGLOBIN (BEAKER) (test svbi=978) 10.1 GM/DL 13.7-17.5 HEMATOCRIT (BEAKER) (test ctqc=126) 30.0 % 40.1-51.0 MEAN CORPUSCULAR VOLUME (BEAKER) (test gawr=948) 109.5 fL 79.0-92.2 MEAN CORPUSCULAR HEMOGLOBIN (BEAKER) (test 36.9 pg 25.7-32.2 gxrp=495) MEAN CORPUSCULAR HEMOGLOBIN CONC (BEAKER) (test 33.7 GM/DL 32.3-36.5 szrg=580) RED CELL DISTRIBUTION WIDTH (BEAKER) (test 17.8 % 11.6-14.4 qism=893) PLATELET COUNT (BEAKER) (test yegl=174) 83 K/CU MM 150-450 MEAN PLATELET VOLUME (BEAKER) (test ucjo=626) 10.4 fL 9.4-12.4 NUCLEATED RED BLOOD CELLS (BEAKER) (test 0 /100 WBC 0-0 ouky=925) NEUTROPHILS RELATIVE PERCENT (BEAKER) (test 75 % gyxq=488) LYMPHOCYTES RELATIVE PERCENT (BEAKER) (test 14 % inxt=109) MONOCYTES RELATIVE PERCENT (BEAKER) (test 7 % puvx=193) EOSINOPHILS RELATIVE PERCENT (BEAKER) (test 2 % dong=187) BASOPHILS RELATIVE PERCENT (BEAKER) (test 1 % kzdv=718) NEUTROPHILS ABSOLUTE COUNT (BEAKER) (test 4.98 K/ L 1.78-5.38 rjvb=851) LYMPHOCYTES ABSOLUTE COUNT (BEAKER) (test 0.93 K/ L 1.32-3.57 zgtw=459) MONOCYTES ABSOLUTE COUNT (BEAKER) (test swdw=088) 0.49 K/ L 0.30-0.82 EOSINOPHILS ABSOLUTE COUNT (BEAKER) (test 0.16 K/ L 0.04-0.54 admp=672) BASOPHILS ABSOLUTE COUNT (BEAKER) (test afbh=422) 0.06 K/ L 0.01-0.08 IMMATURE GRANULOCYTES-RELATIVE PERCENT (BEAKER) 1 % 0-1 (test nvnc=1843) PROTHROMBIN [id number] 01:38:00 Test Item Value Reference Range Comments PROTIME (BEAKER) (test iwcv=890) 21.1 seconds 11.7-14.7 INR (BEAKER) (test ihig=986) 1.9 <=5.9 RECOMMENDED COUMADIN/WARFARIN INR THERAPY RANGESSTANDARD DOSE: 2.0 - 3.0 Includes: PROPHYLAXIS forvenous thrombosis, systemic embolization; TREATMENT for venous thrombosis and/or pulmonary embolus.HIGH RISK: Target INR is 2.5-3.5 for patients with mechanical heart valves.BASIC METABOLIC [id number] 01:37: 00 Test Item Value Reference Range Comments SODIUM (BEAKER) (test 130 meq/L 136-145 lmnn=711) POTASSIUM (BEAKER) (test 4.6 meq/L 3.5-5.1 Specimen moderately otph=849) hemolyzed CHLORIDE (BEAKER) (test 100 meq/L 98-107 bilq=027) CO2 (BEAKER) (test 21 meq/L 22-29 icmp=951) BLOOD UREA NITROGEN 6 mg/dL 7-21 (BEAKER) (test fbuh=672) CREATININE (BEAKER) (test 0.61 mg/dL 0.57-1.25 Specimen moderately oklh=539) hemolyzed GLUCOSE RANDOM (BEAKER) 100 mg/dL 70-105 (test cbrz=521) CALCIUM (BEAKER) (test 7.8 mg/dL 8.4-10.2 lfvq=673) EGFR (BEAKER) (test 139 mL/min/1.73 sq m ESTIMATED GFR IS NOT jwly=7126) ACCURATE CREATININE CLEARANCE IN PREDICTING GLOMERULAR FILTRATION RATE. ESTIMATED GFR IS NOT APPLICABLE FOR DIALYSIS PATIENTS. Specimen moderately [id number] 01:36:00 Test Item Value Reference Range Comments MAGNESIUM (BEAKER) (test 1.9 mg/dL 1.6-2.6 Specimen moderately hemolyzed bxyr=497) HEPATIC FUNCTION [id number] 01:36:00 Test Item Value Reference Range Comments TOTAL PROTEIN (BEAKER) (test 8.0 gm/dL 6.0-8.3 Specimen moderately hemolyzed seju=221) ALBUMIN (BEAKER) (test 2.2 g/dL 3.5-5.0 Specimen moderately hemolyzed vbiz=1750) BILIRUBIN TOTAL (BEAKER) (test 9.0 mg/dL 0.2-1.2 Specimen moderately hemolyzed iodn=034) BILIRUBIN DIRECT (BEAKER) 4.9 mg/dL 0.1-0.5 Specimen moderately hemolyzed (test tpxl=749) ALKALINE PHOSPHATASE (BEAKER) 204 U/L 40-150 (test khkr=158) AST (SGOT) (BEAKER) (test 193 U/L 5-34 Specimen moderately hemolyzed rxvk=267) ALT (SGPT) (BEAKER) (test 51 U/L 6-55 Specimen moderately xxpr=104) hemolyzed Specimen moderately ictericCBC W/PLT COUNT & AUTO [id number] 01: 21:00 Test Item Value Reference Range Comments WHITE BLOOD CELL COUNT (BEAKER) (test pxfx=913) 6.7 K/ L 3.5-10.5 RED BLOOD CELL COUNT (BEAKER) (test dfna=999) 2.97 M/ L 4.63-6.08 HEMOGLOBIN (BEAKER) (test jekm=829) 11.1 GM/DL 13.7-17.5 HEMATOCRIT (BEAKER) (test xkcn=637) 31.9 % 40.1-51.0 MEAN CORPUSCULAR VOLUME (BEAKER) (test optx=992) 107.4 fL 79.0-92.2 MEAN CORPUSCULAR HEMOGLOBIN (BEAKER) (test 37.4 pg 25.7-32.2 umgr=239) MEAN CORPUSCULAR HEMOGLOBIN CONC (BEAKER) (test 34.8 GM/DL 32.3-36.5 mykh=605) RED CELL DISTRIBUTION WIDTH (BEAKER) (test 17.8 % 11.6-14.4 dlha=306) PLATELET COUNT (BEAKER) (test tule=399) 101 K/CU MM 150-450 MEAN PLATELET VOLUME (BEAKER) (test wapz=124) 10.9 fL 9.4-12.4 NUCLEATED RED BLOOD CELLS (BEAKER) (test 0 /100 WBC 0-0 dssm=850) NEUTROPHILS RELATIVE PERCENT (BEAKER) (test 81 % qwqp=632) LYMPHOCYTES RELATIVE PERCENT (BEAKER) (test 9 % hdia=546) MONOCYTES RELATIVE PERCENT (BEAKER) (test 8 % vudq=776) EOSINOPHILS RELATIVE PERCENT (BEAKER) (test 1 % fkdm=916) BASOPHILS RELATIVE PERCENT (BEAKER) (test 1 % itnr=892) NEUTROPHILS ABSOLUTE COUNT (BEAKER) (test 5.37 K/ L 1.78-5.38 fgdn=650) LYMPHOCYTES ABSOLUTE COUNT (BEAKER) (test 0.60 K/ L 1.32-3.57 awaw=765) MONOCYTES ABSOLUTE COUNT (BEAKER) (test 0.55 K/ L 0.30-0.82 vnze=601) EOSINOPHILS ABSOLUTE COUNT (BEAKER) (test 0.04 K/ L 0.04-0.54 xucq=173) BASOPHILS ABSOLUTE COUNT (BEAKER) (test 0.07 K/ L 0.01-0.08 udrd=208) IMMATURE GRANULOCYTES-RELATIVE PERCENT (BEAKER) 1 % 0-1 (test zfhl=5938)
[2018-11-03] MEDS ORDERED: FUROSEMIDE 20 MG/ 2ML VIAL ONE ×2 (11:50→12:06)
[2018-11-03 12:00] LABS: Absolute Lymphocytes (CBC) 1.2 K/uL (0.7-4.9); BUN Blood Urea Nitrogen 9 mg/dL (7-18); Basophils % 0.7 % (0-1.3); Bicarbonate 23 mmol/L (21-32); Eosinophils % 5.3 % (0-4.4); Glucose Level 84 mg/dL (74-106); Hematocrit 26.4 % (39.6-49.0); Lymphocytes % 35.1 % (15.3-44.8); MPV 9.6 fL (7.6-11.3); Monocytes % 8.6 % (3.3-12.3); Potassium 4.2 mmol/L (3.5-5.1); RBC Red Blood Cell Count 2.41 M/uL (4.33-5.43); Sodium Level 141 mmol/L (136-145)
[2018-11-03 12:11] LABS: Urine White Blood Cell Casts OK
[2018-11-03 12:12] LABS: Blood Morphology Comment NOTED (NOT SEEN); Macrocytosis 1+; Platelet Estimate DECR
--- NOTE | 2018-11-03 13:07 | ER ---
Nurse's Notes [facility] Name: Chrissie Parada Jr Age: 53 yrs Sex: Male : 1965 Arrival Date: 11/03/2018 Time: 09:21 Bed 15 Private MD: Eugene Segura Diagnosis: Other and unspecified cirrhosis of liver;Anemia, unspecified Presentation: 11/03 09:31 Presenting complaint: Child states: daughter states, "He has liver disease and was ss transferred from this ER about a month ago and they did a paracentesis. His fluid has built back up and his normal weight is usually 215#, but he just weighed himself yesterday and now he is 246#. We called his liver coordinator who told us to come to the ER for a paracentesis, and if y'all could not do it to transfer him back to the medical center." Pt denies pain. Transition of care: patient was not received from another setting of care. Onset of symptoms is unknown. Risk Assessment: Do you want to hurt yourself or someone else? Patient reports no desire to harm self or others. Initial Sepsis Screen: Does the patient meet any 2 criteria? RR > 20 per min. Does the patient have a suspected source of infection? No. Patient's initial sepsis screen is negative. Care prior to arrival: None. 09:31 Method Of Arrival: Ambulatory ss 09:31 Acuity: WENDY 3 ss Triage Assessment: 09:38 General: Appears in no apparent distress. uncomfortable, Behavior is calm, cooperative, hj appropriate for age. Pain: Complains of pain in abdomen, right leg and left leg. GI: Reports. Historical: - Allergies: 09:33 No Known Allergies; ss - Home Meds: 11:48 folic acid 1 mg Oral tab 1 tab once daily [Active]; furosemide 40 mg Oral tab 1 tab la1 once daily [Active]; lactulose 20 gram/30 mL Oral soln 30 mL 3 times per day [Active]; spironolactone 100 mg Oral tab 1 tab once daily [Active]; omeprazole 40 mg Oral cpDR 1 cap once daily [Active]; propranolol 20 mg Oral tab 1 tab every 12 hours [Active]; - PMHx: 09:33 Arthritis; Cirrhosis; esophageal varices; GERD; ss - PSHx: 09:33 Cholecystectomy; ss - Immunization history:: Adult Immunizations up to date. - Social history:: Smoking status: Patient/guardian denies using tobacco. - Ebola Screening: : Patient denies exposure to infectious person Patient denies travel to an Ebola-affected area in the 21 days before illness onset. Screenin:38 Abuse screen: Denies threats or abuse. Denies injuries from another. Nutritional hj screening: No deficits noted. Tuberculosis screening: No symptoms or risk factors identified. Fall Risk None identified. Assessment: 09:39 GI: Bowel sounds present X 4 quads. hj 11:13 General: Appears in no apparent distress. Behavior is calm, cooperative. Neuro: Level la1 of Consciousness is awake, alert, obeys commands, Oriented to person, place, time, situation. Cardiovascular: Capillary refill < 3 seconds Patient's skin is warm and dry. Respiratory: Airway is patent Respiratory effort is even, unlabored, Respiratory pattern is regular, symmetrical. GI: Abdomen is round distended, Bowel sounds present X 4 quads. + fluid wave in abd. 13:07 Reassessment: Patient appears in no apparent distress at this time. No changes from la1 previously documented assessment. Patient and/or family updated on plan of care and expected duration. Pain level reassessed. Patient is alert, oriented x 3, equal unlabored respirations, skin warm/dry/pink. Vital Signs: 09:33 BP 122 / 63; Pulse 69; Resp 22; Temp 97.2(TE); Pulse Ox 99% on R/A; Weight 111.58 kg; Height 5 ft. 6 in. (167.64 cm); Pain 0/10; 13:38 BP 127 / 76; Pulse 67; Resp 16; Pulse Ox 98% on R/A; la1 09:33 Body Mass Index 39.71 (111.58 kg, 167.64 cm) ED Course: 09:21 Patient arrived in ED. dl4 09:22 Eugene Segura MD is Private Physician. dl4 09:32 Triage completed. ss 09:33 Arm band placed on right wrist. ss 09:35 Papa Suazo MD is Attending Physician. 09:38 Josué Mcgee, SOFÍA is Primary Nurse. hj 09:39 Patient has correct armband on for positive identification. Placed in gown. Bed in low hj position. Call light in reach. Side rails up X 1. 11:00 Missed attempt(s): 20 gauge in right antecubital area. Bleeding controlled, band aid dh3 applied, catheter tip intact. 11:25 Initial lab(s) drawn, by me, sent to lab. Inserted saline lock: 22 gauge in left hand, dh3 using aseptic technique. Blood collected. 13:07 No provider procedures requiring assistance completed. IV discontinued, intact, la1 bleeding controlled, No redness/swelling at site. Pressure dressing applied. Administered Medications: 11:41 Drug: Lasix 20 mg Route: IVP; Site: left hand; la1 11:49 Follow up: Response: No adverse reaction la1 13:07 Follow up: Response: No adverse reaction la1 11:57 Drug: Lasix 20 mg Route: IVP; Site: left antecubital; la1 13:07 Follow up: Response: No adverse reaction la1 Outcome: 13:06 Discharge ordered by . rj 13:38 Discharged to home ambulatory. la1 13:38 Condition: stable 13:38 Discharge instructions given to patient, Instructed on discharge instructions, follow up and referral plans. Demonstrated understanding of instructions, follow-up care, medications. 13:39 Patient left the ED. la1 Signatures: Sonia Sales RN RN Michael Chu RN RN la1 Josué Mcgee RN RN hj Herrera, Renee 3 Papa Suazo MD MD gs Luna, David dl4
--- NOTE | 2018-11-03 13:07 | EDPHYS ---
Physician Documentation [facility] Name: Chrissie Parada Jr Age: 53 yrs Sex: Male : 1965 Arrival Date: 11/03/2018 Time: 09:21 Bed 15 Private MD: Eugene Segura ED Physician Papa Suazo HPI: 11/03 13:57 This 53 yrs old Male presents to ER via Ambulatory with complaints of gs Abdominal Swelling, Leg Swelling. 13:57 hx cirrhosis in edema . Onset: The symptoms/episode began/occurred 1 week(s) ago. gs Severity of symptoms: At their worst the symptoms were moderate in the emergency department the symptoms are unchanged. The patient has experienced similar episodes in the past, chronically. Historical: - Allergies: 09:33 No Known Allergies; ss - Home Meds: 11:48 folic acid 1 mg Oral tab 1 tab once daily [Active]; furosemide 40 mg Oral tab 1 tab la1 once daily [Active]; lactulose 20 gram/30 mL Oral soln 30 mL 3 times per day [Active]; spironolactone 100 mg Oral tab 1 tab once daily [Active]; omeprazole 40 mg Oral cpDR 1 cap once daily [Active]; propranolol 20 mg Oral tab 1 tab every 12 hours [Active]; - PMHx: 09:33 Arthritis; Cirrhosis; esophageal varices; GERD; ss - PSHx: 09:33 Cholecystectomy; ss - Immunization history:: Adult Immunizations up to date. - Social history:: Smoking status: Patient/guardian denies using tobacco. - Ebola Screening: : Patient denies exposure to infectious person Patient denies travel to an Ebola-affected area in the 21 days before illness onset. ROS: 13:57 All other systems are negative. gs Exam: 13:57 Head/Face: Normocephalic, atraumatic. Eyes: Pupils equal round and reactive to light, gs extra-ocular motions intact. Lids and lashes normal. Conjunctiva and sclera are non-icteric and not injected. Cornea within normal limits. Periorbital areas with no swelling, redness, or edema. ENT: Nares patent. No nasal discharge, no septal abnormalities noted. Tympanic membranes are normal and external auditory canals are clear. Oropharynx with no redness, swelling, or masses, exudates, or evidence of obstruction, uvula midline. Mucous membranes moist. Neck: Trachea midline, no thyromegaly or masses palpated, and no cervical lymphadenopathy. Supple, full range of motion without nuchal rigidity, or vertebral point tenderness. No Meningismus. Chest/axilla: Normal chest wall appearance and motion. Nontender with no deformity. No lesions are appreciated. Cardiovascular: Regular rate and rhythm with a normal S1 and S2. No gallops, murmurs, or rubs. Normal PMI, no JVD. No pulse deficits. Respiratory: Lungs have equal breath sounds bilaterally, clear to auscultation and percussion. No rales, rhonchi or wheezes noted. No increased work of breathing, no retractions or nasal flaring. 13:57 Back: No spinal tenderness. No costovertebral tenderness. Full range of motion. Skin: Warm, dry with normal turgor. Normal color with no rashes, no lesions, and no evidence of cellulitis. MS/ Extremity: Pulses equal, no cyanosis. Neurovascular intact. Full, normal range of motion. Neuro: Awake and alert, GCS 15, oriented to person, place, time, and situation. Cranial nerves II-XII grossly intact. Motor strength 5/5 in all extremities. Sensory grossly intact. Cerebellar exam normal. Normal gait. 13:57 Constitutional: The patient appears alert, awake. 13:57 Cardiovascular: Edema: 1+ edema to level of left midcalf and right midcalf. 13:57 Abdomen/GI: Inspection: distension, that is mild, not tense ascites. 13:57 Abdomen/GI: Palpation: abdomen is soft and non-tender. Vital Signs: 09:33 BP 122 / 63; Pulse 69; Resp 22; Temp 97.2(TE); Pulse Ox 99% on R/A; Weight 111.58 kg; ss Height 5 ft. 6 in. (167.64 cm); Pain 0/10; 13:38 BP 127 / 76; Pulse 67; Resp 16; Pulse Ox 98% on R/A; la1 09:33 Body Mass Index 39.71 (111.58 kg, 167.64 cm) MDM: 10:47 Patient medically screened. 13:57 Data reviewed: vital signs, nurses notes, old medical records, lab test result(s). Counseling: I had a detailed discussion with the patient and/or guardian regarding: the historical points, exam findings, and any diagnostic results supporting the discharge/admit diagnosis, the need for outpatient follow up. Response to treatment: the patient's symptoms have markedly improved after treatment, and as a result, I will discharge patient. 11/03 10:47 Order name: CBC with Diff; Complete Time: 13:02 11/03 10:47 Order name: Basic Metabolic Panel; Complete Time: 13:02 11/03 10:47 Order name: AMMONIA; Complete Time: 13:02 11/03 12:03 Order name: CBC Smear Scan; Complete Time: 13:02 EDMS 11/03 10:48 Order name: Misc. Order: home meds doses; Complete Time: 11:42 Administered Medications: 11:41 Drug: Lasix 20 mg Route: IVP; Site: left hand; la1 11:49 Follow up: Response: No adverse reaction la1 13:07 Follow up: Response: No adverse reaction la1 11:57 Drug: Lasix 20 mg Route: IVP; Site: left antecubital; la1 13:07 Follow up: Response: No adverse reaction la1 Disposition: 11/03/18 13:06 Discharged to Home. Impression: Other and unspecified cirrhosis of liver, Anemia, unspecified. - Condition is Stable. - Discharge Instructions: Anemia, Nonspecific, Alcoholic Liver Disease, Qeps-rn-Symx. - SBAR form, Medication Reconciliation Form, Thank You Letter, Antibiotic Education, Prescription Opioid Use form. - Follow up: Private Physician; When: 1 - 2 days; Reason: Re-evaluation by your physician. Signatures: Dispatcher [employer] [facility] Sonia Sales RN RN Michael Chu RN RN la1 Papa Suazo MD MD Corrections: (The following items were deleted from the chart) 13:39 13:06 11/03/2018 13:06 Discharged to Home. Impression: Other and unspecified cirrhosis la1 of liver; Anemia, unspecified. Condition is Stable. Forms are Medication Reconciliation Form, Thank You Letter, Antibiotic Education, Prescription Opioid Use. Follow up: Private Physician; When: 1 - 2 days; Reason: Re-evaluation by your physician.
[2018-11-03 14:19] VITALS: TEMP 97.2
[2018-11-03 14:21] VITALS: BP 127/76; O2SAT 98
== END 2018-11-03 13:39 | disposition home or self-care (01) ==
LOC: ER 09:20
DX: K74.69 Other cirrhosis of liver (principal); D64.9 Anemia, unspecified; K21.9 Gastro-esophageal reflux disease without esophagitis
CPT/HCPCS: 36415; 80048; 82140; 85025; 99283; J1940

== ENCOUNTER 2018-12-11 12:14 | Emergency (ER) | payer OTHER ==
--- OUTSIDE RECORDS SUMMARY | 2018-12-11 12:23 | XMS REPORT | Clinical Summary ---
:1965 Author Organization [facility] Address [address] [place] [address] Care Team Providers Name Role Phone Imelda [...] further imaging/ testing and official review at [facility]. Ascites due to alcoholic cirrhosis 10/05/2018 Portal [...] Encounters Date Type Specialty Care Team Description 11/06/2018 Abstract Hepatology Yuki Lewis MA 11/02/2018 Telephone Transplant Cecilia Choe, Foot Swelling; Hepatology RN Ascites 11/02/2018 Documentation Transplant Cecilia Choe, Hepatology RN 10/21/2018 Abstract Transplant Carolyn Velez Hepatology 10/19/2018 Telephone Transplant Mirian Kemp MELD Hepatology RN 10/19/2018 Social Work Transplant Patt Thakkar Hepatology Hank, SPLICER APPRENTICE 10/15/2018 Orders Only Lab Aly Iglesias Alcoholic [...] Pre-transplant Hepatology MD Shane evaluation for liver Law, Carolyn R transplant (Primary Dx) 10/14/2018 Evaluation Transplant [...] Uncomplicated alcohol dependence (HCC) 09/13/2018 Travel after 12/10/2017 Social History Tobacco Use Types Packs/Day Years [...] Team Description 01/05/2019 Office Visit Hepatology Resource, [facility] E Procedures Procedure Name Priority [...] results Pre-transplant section. evaluation for liver transplant TREADMILL Routine 10/15/2018 10:07 Results for this TOLERANCE(NON-NUCLEAR AM CDT procedure are in TREADMILL) the results section. ECG 12-LEAD Routine 10/15/2018 9:54 Results for this AM CDT procedure are in the results section. ECG 12-LEAD Routine 10/15/2018 9:54 AM CDT Procedure Note - Interface, External Ris In - 10/15/2018 10:17 AM CDT Ventricular Rate 54 BPM Atrial Rate 54 BPM P-R Interval 152 ms QRS Duration 104 ms Q-T Interval 524 ms QTC Calculation(Bazett) 496 ms P [place] 48 degrees R [place] 16 degrees T [place] 48 degrees Sinus bradycardia Prolonged QT Abnormal ECG ECG 12-LEAD Routine 10/15/2018 7:48 AM CDT Procedure Note - Interface, External Ris In - 10/15/2018 10:34 AM CDT Ventricular Rate 55 BPM Atrial Rate 55 BPM P-R Interval 144 ms QRS Duration 104 ms Q-T Interval 500 ms QTC Calculation(Bazett) 478 ms P [place] 3 degrees R [place] 22 degrees T [place] 16 degrees Sinus bradycardia Otherwise normal ECG [...] this procedure are in the results section. [id number]\\, Routine 09/15/2018 Results for SERUM 4:43 AM [...] procedure are in the results section. after 12/10/2017 Results PERIPHERAL VASCULAR REPORT - SCAN (10/16/2018 9:11 PM CDT) Narrative Performed At TRANSFUSION SERVICE REPORT - SCAN (10/16/2018 5:53 PM CDT) Narrative Performed At ECHOCARDIOGRAM REPORT - SCAN (10/15/2018 9:14 PM CDT) Narrative Performed At ECHO W CONTRAST & DOPPLER (10/15/2018 12:41 PM CDT) Ejection Fraction [facility] ECHO [facility]ART[facility] Specimen Narrative Performed At Transthoracic Echocardiography Report (TTE) [facility]ART[facility] Demographics Patient Name CHIN, Date of Study 10/15/2018 ERASTO ROGERS [id number] GenderMale Visit Number [id number] Jimmie [id number] Number Number Date 1965 Referring Kelsie Lynn Physician Age53 year(s) Human Factors Ergonomist Carlito Doan, NB, RDCS,RVT,RDMS Chucho Villasenor MD Physician Procedure Type [...] 10/15/2018 ERASTO ROGERS Gender Male Visit Number [id number] Race Unknown Room Number Number Date of 1965 Referring Kelsie Lynn Physician Age 53 year(s) Human Factors Ergonomist Carlito Doan, NB, RDCS,RVT,RDMS Interpreting Sunita Villasenor [...] cm Performing Organization Address City/State/Zipcode Phone Number SHARONDAH LAVONNE [facility] myocardial perfusion SPECT, pharm (10/15/2018 11:45 AM CDT) Specimen Narrative Performed At FINAL REPORT [employer] RIS PROCEDURE: MYOCARDIAL PERFUSION SPECT IMAGING (Rest/Stress) CPT CODE: 32159 INDICATION: Preoperative evaluation for liver transplantation CARDIOVASCULAR [...] MD Report Verified Date/Time:10/15/2018 13:54:29 Reading Location: [address] Reading Room Procedure Note Interface, External Ris In - 10/15/2018 1:56 PM CDT FINAL REPORT PROCEDURE: MYOCARDIAL PERFUSION SPECT IMAGING (Rest/Stress) CPT CODE: 14457 INDICATION: Preoperative evaluation for liver transplantation CARDIOVASCULAR [...] Report Verified Date/Time: 10/15/2018 13:54:29 Reading Location: [address] Reading Room Performing Organization Address City/State/Zipcode Phone Number [employer] Blood typing, automated (10/15/2018 11:09 AM CDT) ABO/RH AUTOMATED (ANA MARIA) A POSITIVE [facility] Specimen Blood Performing Organization Address City/[facility]/Zipcode Phone Number [facility] [address] [place] [address] Treadmill tolerance(Non-Nuclear Treadmill) (10/15/2018 10:07 AM CDT) Specimen Narrative Performed At Protocol Name [employer] Time In Exercise Phase 00:01:00 Max. Systolic BP 103 mmHg Max Diastolic BP 50 mmHg Max Heart Rate 61 BPM Max Predicted Heart Rate 168 BPM Reason For Termination Predetermined end point Reason for Test Pre transplant Liver Eval Target HR Formula (220 - Age)*100% Arrhythmias none Resting ECG sinus bradycardia ST Changes No Significant Changes Overall Impression Indeterminate due to pharmacological stress Chest Pain none HR Response To Exercise BP Response To Exercise Lasix,Propranolol,Aldactone Confirmed by fellow Galen Crawford ([id number]) on 10/16/2018 9:06:08 AM Confirmed by MD MARTINES JORGE ([id number]) on 11/24/2018 10:16:58 AM Procedure Note Interface, External Ris In - 11/24/2018 10:17 AM CDT Protocol Name Lexiscan Time In Exercise Phase 00:01:00 Max. Systolic BP 103 mmHg Max Diastolic BP 50 mmHg Max Heart Rate 61 BPM Max Predicted Heart Rate 168 BPM Reason For Termination Predetermined end point Reason for Test Pre transplant Liver Eval Target HR Formula (220 - Age)*100% Arrhythmias none Resting ECG sinus bradycardia ST Changes No Significant Changes Overall Impression Indeterminate due to pharmacological stress Chest Pain none HR Response To Exercise BP Response To Exercise Lasix,Propranolol,Aldactone Confirmed by fellow Galen Crawford ([id number]) on 10/16/2018 9:06:08 AM Confirmed by MD MARTINES JORGE ([id number]) on 11/24/2018 10:16:58 AM Performing Organization Address City/State/[facility] Phone Number GE MUSE ECG 12 lead (10/15/2018 9:54 AM CDT)Only the most recent of2 resultswithin the time period is included. Specimen Narrative Performed At Ventricular Rate 54 BPM GE MUSE Atrial Rate 54 BPM P-R Interval 152 ms QRS Duration 104 ms Q-T Interval 524 ms QTC Calculation(Bazett) 496 ms P [place] 48 degrees R [place] 16 degrees T [place] 48 degrees Sinus bradycardia Prolonged QT Abnormal ECG 15 OCT 2018 07:48 No significant changes Confirmed by MD MASHA, SRAVAN ([id number]) on 10/15/2018 1:30:57 PM Procedure Note Interface, External Ris In - 10/15/2018 1:31 PM CDT Ventricular Rate 54 BPM Atrial Rate 54 BPM P-R Interval 152 ms QRS Duration 104 ms Q-T Interval 524 ms QTC Calculation(Bazett) 496 ms P [place] 48 degrees R [place] 16 degrees T [place] 48 degrees Sinus bradycardia Prolonged QT Abnormal ECG 15 OCT 2018 07:48 No significant changes Confirmed by MD MASHA, SRAVAN ([id number]) on 10/15/2018 1:30:57 PM Performing Organization Address City/[facility]/Zipcode Phone Number MYKEL MANUEL Drug screen, urine, transplant (10/15/2018 7:38 AM CDT)Only the most recent of2 resultswithin the time period is included. Specimen Urine Narrative Performed At Performing Organization Address City/[facility] Cent[facility]ode Phone Number [facility] [address] [place] [address] Urinalysis w/Microscopic (10/15/2018 7:38 AM CDT)Only the most recent of2 resultswithin the time period is included. Color, UA Dark Yellow [facility] Clarity, UA Clear [facility] Specific [place], UA 1.019 1.001 - 1.035 [facility] pH, UA 5.5 5.0 - 8.0 [facility] Protein, UA Negative Negative [facility] Glucose, UA Negative Negative [facility] Ketones, UA Negative Negative [facility] Bilirubin, UA Negative Negative [facility] Blood, UA Negative Negative [facility] Nitrite, UA Negative Negative [facility] Leukocytes, UA Negative Negative [facility] Urobilinogen, UA 3.0 (H) 0.2 - 1.0 mg/dL [facility] RBC, UA <1 /HPF [facility] WBC, UA 3 /HPF [facility] Bacteria, UA Rare [facility] Mucus Occasional [facility] Specimen Source [facility] Specimen Urine Performing Organization Address [facility] Centercode Phone Number [address] [address] [place] Cytomegalovirus antibody, IgM (10/15/2018 7:37 AM CDT) CMV IGM Equivocal Negative, Equivocal [facility] Specimen Blood Narrative Performed At CMV IgM Result Interpretation: [facility] </=0.8 Al Negative 0.9-1.0 Al Equivocal >/=1.1 Al Positive Performing Organization Address City/[facility] Phone Number [address] [address] [place] Cryptococcal antigen (10/15/2018 7:37 AM CDT) Cryptococcal Antigen, Serum Negative Negative, Interference [facility] Specimen Blood Performing Organization Address [facility] Phone Number [address] [address] [place] EBV-VCA antibody, IgM (10/15/2018 7:37 AM CDT) JOSEPH LAMAR VIRAL CAPSID Negative Negative, Equivocal [facility]TIGEN [facility] Specimen Blood Narrative Performed At Joseph Lamar Viral Capsid Antigen IgM Result [facility] Interpretation: </=0.8 Al Negative 0.9-1.0 Al Equivocal >/=1.1 Al Positive Performing Organization Address [facility] Phone Number [address] [address] [place] EBV-VCA antibody, IgG (10/15/2018 7:37 AM CDT) JOSEPH LAMAR VIRAL CAPSID Positive (A) Negative, Equivocal [facility]TIGEN [facility] Specimen Blood Narrative Performed At Joseph Lamar Viral Capsid Antigen IgG Result [facility] Interpretation: </=0.8 Al Negative 0.9-1.0 Al Equivocal >/=1.1 Al Positive Performing Organization Address [facility] Phone Number [address] [address] CENTER Cytomegalovirus antibody, IgG (10/15/2018 7:37 AM CDT) CYTOMEGALOVIRUS, IGG Positive (A) Negative, Equivocal [facility] Specimen Blood Narrative Performed At CMV IgG Result Interpretation: [facility] </=0.8 Al Negative 0.9-1.0 Al Equivocal >/=1.1 AlPositive Performing Organization Address [facility] [place] [address] CENTER Iron, TIBC, % sat. (without ferritin) (10/15/2018 7:28 AM CDT)Only the most recent of2 resultswithin the time period is included. Iron 134.0 40.0 - 160.0 ug/dL [facility] TIBC 133 (L) 250 - 450 ug/dL [facility] Iron % Saturation 101 (H) 20 - 55 % [facility] Specimen Blood Performing Organization Address [facility] Phone Number [address] [address] [phone] [place] HIV-1 Antigen with HIV-1/2 Antibody (10/15/2018 7:28 AM CDT) HIV-1 Antigen with HIV 1&2 Nonreactive Nonreactive [facility] Specimen Blood Performing Organization Address [facility] Phone Number [address] [address] [phone] [place] CBC with platelet count + automated diff (10/15/2018 7:28 AM CDT)Only the most recent of7 resultswithin the time period is included. WBC 5.4 3.5 - 10.5 K/L [facility] RBC 3.03 (L) 4.63 - 6.08 M/L [facility] Hemoglobin 11.0 (L) 13.7 - 17.5 GM/DL [facility] Hematocrit 32.2 (L) 40.1 - 51.0 % [facility] MCV 106.3 (H) 79.0 - 92.2 fL [facility] MCH 36.3 (H) 25.7 - 32.2 pg [facility] MCHC 34.2 32.3 - 36.5 GM/DL [facility] RDW 14.7 (H) 11.6 - 14.4 % [facility] Platelets 76 (L) 150 - 450 K/CU MM [facility] MPV 11.8 9.4 - 12.4 fL [facility] nRBC 0 0 - 0 /100 WBC [facility] % Neutros 59 % [facility] % Lymphs 29 % [facility] % Monos 6 % [facility] % Eos 4 % [facility] % Baso 1 % [facility] # Neutros 3.19 1.78 - 5.38 K/L [facility] # Lymphs 1.58 1.32 - 3.57 K/L [facility] # Monos 0.32 0.30 - 0.82 K/L [facility] # Eos 0.23 0.04 - 0.54 K/L [facility] # Baso 0.03 0.01 - 0.08 K/L [facility] Immature 0 0 - 1 % [facility] Granulocytes-[facility] Specimen Blood Performing Organization Address City/State/Zipcode Phone Number [facility] [address] [place] [address] CENTER Hepatitis A antibody, IgM (10/15/2018 7:28 AM CDT) Hep A IgM Nonreactive Nonreactive [facility] Specimen Blood Performing Organization Address [facility] Centercode Phone Number [address] [address] [place] Carbohydrate antigen 19-9 (CA 19-9) (10/15/2018 7:28 AM CDT) CA 19-9 8 <34 U/mL [facility] Comment: This test was performed using the Siemens Chemiluminescent method. Values obtained from different assay methods cannot be used interchangeably. CA19-9 levels, regardless of value, should not be interpreted as absolute evidence of the presence or absence of disease. Specimen Blood Narrative Performed At Performing Lab [facility] EZ [employer] [place] [address] [place] [address] Jake Singleton MD, PhD, MCKENZIE Performing Organization Address [facility] Phone [place] [address] [facility] [address] [facility] Zinc (10/15/2018 7:28 AM CDT) Zinc 35 (L) 60 - 130 mcg/dL [facility] Comment: [facility]POR[facility] This test was developed and its analytical performance characteristics have been determined by [employer] [facility]. It has not been cleared or approved by the US Food and Drug Administration. This assay has been validated pursuant to the CLIA regulations and is used for clinical purposes. Specimen Blood Narrative Performed At Performing Lab [facility] *[facility] [employer] [facility], [address] [place] [phone] David Alegre MD, PhD Performing Organization Address [facility] Centercode Phone [place] [address] [employer]PORATED [address] [place] [facility] Hepatitis B core antibody, IgM (10/15/2018 7:28 AM CDT) Hep B C IgM Nonreactive Nonreactive [facility] Specimen Blood Performing Organization Address [facility] Centercode Phone Number [address] [address] CENTER Hepatitis B core antibody, total (10/15/2018 7:28 AM CDT)Only the most recent of2 resultswithin the time period is included. Hep B Core Total Ab Nonreactive Nonreactive [facility] Specimen Blood Performing Organization Address [facility] Centercode Phone Number [address] [address] [phone] [place] Vitamin D, 25-Hydroxy (10/15/2018 7:28 AM CDT) Vitamin D 25-Hydroxy 8.9 6.6 - 49.9 ng/mL [facility] Specimen Blood Narrative Performed At Effective 01/29/2017: Reference Range Change [facility] New: 6.6-49.9 ng/mL Previous: 13.0-47.8 ng/mL Recommended Vitamin D Target Range: 30.0-40.0 ng/mL Performing Organization Address [facility] Centercoar Phone Number [address] [address] [place] RPR (10/15/2018 7:28 AM CDT) RPR Nonreactive Nonreactive [facility] Specimen Blood Performing Organization Address [facility] Centerco[facility] Phone Number [address] [address] [place] aPTT (10/15/2018 7:28 AM CDT) PTT 49.2 (H) 22.5 - 36.0 seconds [facility] Specimen Blood Performing Organization Address [facility] Centerco[facility] Phone Number [address] [address] [phone] CENTER Prothrombin time/INR (10/15/2018 7:28 AM CDT)Only the most recent of7 resultswithin the time period is included. Protime 21.4 (H) 11.9 - 14.2 seconds [facility] INR 2.0 <=5.9 [facility] Specimen Blood Narrative Performed At Effective 09/16/2018: PT Reference Range [facility] Change New: 11.9-14.2Previous: 11.7-14.7 RECOMMENDED COUMADIN/WARFARIN INR THERAPY RANGES STANDARD DOSE: 2.0-3.0Includes: PROPHYLAXIS for venous thrombosis, systemic embolization; TREATMENT for venous thrombosis and/or pulmonary embolus. HIGH RISK: Target INR is 2.5-3.5 for patients wiht mechanical heart valves. Performing Organization Address [facility] Centercode Phone Number [address] [address] CENTER Fibrinogen (10/15/2018 7:28 AM CDT) Fibrinogen 201 (L) 225 - 434 mg/dl [facility] Specimen Blood Performing Organization Address [facility] Phone Number [address] [address] CENTER Testosterone, free + total (10/15/2018 7:28 AM CDT) Testosterone 82 (L) 250 - 1100 ng/dL [facility] Testosterone, Free 15.8 (L) 35.0 - 155.0 [facility] Comment: pg/mL [facility] Data from J Clin Invest 1974:53:819-828 and J Clin Endocrinol Metab 1973;36:9786-7722. Men with clinically significant hypogonadal symptoms and testosterone values repeatedly in the range of the 200-300 ng/dL or less, may benefit from testosterone treatment after adequate risk and benefits counseling. For additional information, please refer to http://education.Viki/faq/KRS061 (This link is being provided for informational/ educational purposes only.) This test was developed and its analytical performance characteristics have been determined by [employer]. It has not been cleared or approved by the US Food and Drug Administration. This assay has been validated pursuant to the CLIA regulations and is used for clinical purposes. Specimen Blood Narrative Performed At Performing Lab [facility] *[facility] [employer] [facility], [address] [place] [phone] David Alegre MD, PhD Performing Organization Address City/State/Zipcode Phone Number [facility], [place] [address] INCORPORATED [address] [facility] Uric acid (10/15/2018 7:28 AM CDT) Uric Acid 3.7 2.6 - 7.2 mg/dL [facility] Specimen Blood Narrative Performed At Specimen moderately icteric [facility] Performing Organization Address City/State/Zipcode Phone Number [address] [address] [phone] CENTER Transferrin (10/15/2018 7:28 AM CDT) Transferrin 106 (L) 174 - 382 mg/dL [facility] Specimen Blood Narrative Performed At Specimen moderately icteric [facility] Performing Organization Address City/[facility]/Zipcode Phone Number [address] [address] CENTER PSA (10/15/2018 7:28 AM CDT) PSA 0.0 0.0 - 4.0 ng/mL [facility] Specimen Blood Performing Organization Address City/[facility] Centercode Phone Number [address] [address] [phone] CENTER Phosphorus (10/15/2018 7:28 AM CDT) Phosphorus 3.9 2.3 - 4.7 mg/dL [facility] Specimen Blood Performing Organization Address City/State/Zipcode Phone Number [address] [address] [phone] CENTER Magnesium (10/15/2018 7:28 AM CDT)Only the most recent of5 resultswithin the time period is included. Magnesium 1.5 (L) 1.6 - 2.6 mg/dL [facility] Specimen Blood Performing Organization Address City/State/Zipcode Phone Number [facility] [address] [address] CENTER Hemoglobin A1c (10/15/2018 7:28 AM CDT) Hemoglobin A1C 4.0 (L) 4.3 - 6.1 % [facility] Specimen Blood Performing Organization Address [facility] Centercode Phone Number [address] [address] CENTER Gamma Glutamyl Transferase (GGT) (10/15/2018 7:28 AM CDT) GGT 68 (H) 9 - 64 U/L [facility] Specimen Blood Narrative Performed At Specimen moderately icteric [facility] Performing Organization Address [facility] Centercoar Phone Number [address] [address] CENTER Carcinoembryonic Antigen (CEA) (10/15/2018 7:28 AM CDT) CEA, SERUM 12.8 (H) 0.0 - 5.0 ng/mL [facility] Specimen Blood Performing Organization Address [facility] Phone Number [address] [address] [place] Bilirubin, direct (10/15/2018 7:28 AM CDT) Bilirubin, Direct 3.6 (H) 0.1 - 0.5 mg/dL [facility] Specimen Blood Performing Organization Address City/[facility] Centercode Phone Number [address] [address] [phone] CENTER Ethanol (10/15/2018 7:28 AM CDT)Only the most recent of2 resultswithin the time period is included. Ethanol Lvl <10 <=10 mg/dL [facility] Specimen Blood Performing Organization Address [facility] Centercode Phone Number [address] [address] [place] Lipid panel (10/15/2018 7:28 AM CDT) Triglycerides 70 mg/dL [facility] Cholesterol 121 mg/dL [facility] HDL 8 mg/dL [facility] LDL Calculated 99 mg/dL [facility] Specimen Blood Narrative Performed At Triglyceride Reference Range: [facility] Low Risk <150 [id number] High Risk 200-499 Very High Risk>=500 Cholesterol Reference Range: Low Risk <200 [id number] High Risk>240 HDL Cholesterol Reference Range: Low Risk >=60 High Risk <40 LDL Cholesterol Reference Range: Optimal<100 Near [id number] [id number] Very High >=190 Specimen moderately icteric Performing Organization Address City/State/Zipcode Phone Number [place] [phone] [place] [address] [facility] Comprehensive metabolic panel (10/15/2018 7:28 AM CDT)Only the most recent of4 resultswithin the time period is included. Protein, Total 7.7 6.0 - 8.3 gm/dL [facility] Albumin 2.2 (L) 3.5 - 5.0 g/dL [facility] Alkaline Phosphatase 165 (H) 40 - 150 U/L [facility] Total Bilirubin 6.3 (H) 0.2 - 1.2 mg/dL [facility] Sodium 135 (L) 136 - 145 meq/L [facility] Potassium 4.1 3.5 - 5.1 meq/L [facility] Chloride 105 98 - 107 meq/L [facility] CO2 27 22 - 29 meq/L [facility] BUN 15 7 - 21 mg/dL [facility] Creatinine 0.88 0.57 - 1.25 mg/dL [facility] Glucose 84 70 - 105 mg/dL [facility] Calcium 8.9 8.4 - 10.2 mg/dL [facility] AST 125 (H) 5 - 34 U/L [facility] ALT 49 6 - 55 U/L [facility] EGFR 91Comment: ESTIMATED GFR mL/min/1.73 sq m [facility] IS NOT ACCURATE [facility] CREATININE CLEARANCE IN PREDICTING GLOMERULAR FILTRATION RATE. ESTIMATED GFR IS NOT APPLICABLE FOR DIALYSIS PATIENTS. Specimen Blood Narrative Performed At Specimen moderately icteric [facility] Performing Organization Address [facility] Centercode Phone Number [facility] [address] [place] [address] CENTER T Spot TB (10/15/2018 7:27 AM CDT) T-Spot TB Negative [facility] Neg Ctrl Spot Count 0 [facility] Panel A Spot 1 [facility] Panel B Spot 0 [facility] Pos Ctrl Spot Ct 0 [facility] Scan Result [facility] Specimen Blood Narrative Performed At Performing Organization Address City/[facility] Centercode Phone Number [facility] [address] [place] [address] LAB[address]ATORIES [address] Calcium, Ionized (10/15/2018 7:27 AM CDT) Calcium, Ion 1.07 (L) 1.12 - 1.27 mmol/L [facility] pH, Blood 7.44 [facility] Specimen Blood Performing Organization Address City/State/Zipcode Phone Number [facility] [address] [place] [address] CENTER Type and screen, automated (10/15/2018 7:25 AM CDT) ABO/RH AUTOMATED (BEAKER) A POSITIVE [facility] Ab Scrn NEGATIVE [facility] Specimen Blood Performing Organization Address City/[facility]/Zipcode Phone Number [facility] [address] [place] [address] Carotid doppler bilateral (10/14/2018 12:10 PM CDT) [facility] Specimen Impressions Performed At Right Impression [facility] 1. The internal, common and external carotid [...] At PV LAB - Carotid Duplex Study [facility] ECHO HEARTLAB MKCKESSON [facility] Demographics Patient NameERASTO PARADA Date of Study10/14/2018 Age53 Visit [id number] Gender Male Date of Birth1965 Referring Kelsie Lynn Room Number Physician Human Factors Ergonomist Marvin Groveting Katheryn Heart MD Procedure Type of Study: [...] of Study 10/14/2018 Age 53 Visit Number [id number] Gender Male Accession Number [id number] Date of 1965 Referring Kelsie Lynn Room Number Physician Human Factors Ergonomist Marvin Jacobo Interpreting Alia Hinton, RVT Physician Procedure Type of Study: Cerebral: Carotid, [...] Additional Measurements:ICAPSV/CCAPSV 1.58.ICAEDV/CCAEDV 2.42. Performing Organization Address City/State/Zipcode Phone Number [facility] MKCKESSON CPACS XR mandible 4 views min (10/14/2018 11:41 AM CDT) Specimen Narrative Performed At FINAL REPORT [facility] CLINICAL HISTORY: Pre-transplant evaluation for liver transplant [...] MD Report Verified Date/Time:10/14/2018 12:14:27 Reading Location: [facility] Radiology Reading Room Procedure Note Interface, External [...] Report Verified Date/Time: 10/14/2018 12:14:27 Reading Location: [facility] Reading Room Performing Organization Address City/State/Zipcode Phone Number [facility] XR chest 2 views (10/14/2018 11:31 AM CDT) Specimen Narrative Performed At FINAL REPORT [facility] INDICATION: Pre-transplant evaluation for liver transplant COMPARISON: September 15, 2018 TECHNIQUE: Chest radiograph, two views, PA and lateral. FINDINGS / IMPRESSION: Lung volumes are normal and no pneumonia or pulmonary edema is demonstrated. Heart shadow normal in size. No pneumothorax or pleural effusion demonstrated. Osseous structures unremarkable. Signed: Gregorio Lott MD Report Verified Date/Time:10/14/2018 13:28:52 Reading Location: [address] Radiology Reading Room Procedure Note Interface, [...] Report Verified Date/Time: 10/14/2018 13:28:52 Reading Location: [address] Radiology Reading Room Performing Organization Address City/State/Zipcode Phone Number [facility] XR dxa bone density study (10/14/2018 11:29 AM CDT) Specimen Narrative Performed At FINAL REPORT [facility] Bone mineral density study 10/14/2018. HISTORY PROVIDED: [...] MD Report Verified Date/Time:10/14/2018 12:10:27 [facility] Procedure Note Interface, External Ris [...] Report Verified Date/Time: 10/14/2018 12:10:27 Reading Location: [facility] Mammo Reading Room Performing Organization Address City/State/Zipcode Phone Number [facility] Manual Differential (10/05/2018 9:49 AM CDT) % Neutros 75 % [facility] % Lymphs 13 % [facility] % Monos 12 % [facility] % Eos 1 % [facility] # Neutros 4.58 1.78 - 5.38 K/ul [facility] # Lymphs 0.79 (L) 1.32 - 3.57 K/ul [facility] # Monos 0.73 0.30 - 0.82 K/uL [facility] # Eos 0.06 0.04 - 0.54 K/uL [facility] Total Counted 100 [facility] WBC Morphology Normal [facility] Platelet Morphology Normal [facility] Anisocytosis 3+ many [facility] Macrocytes 3+ many [facility] Artifact Present [facility] Platelet Conc Decreased [facility] Specimen Blood Narrative Performed At Received comment: [facility] User comments: Slide comments: Performing Organization Address City/[facility]/Zipcode Phone Number [facility] [address] [place] [address] [place] Hepatic function panel (10/05/2018 9:49 AM CDT)Only the most recent of3 resultswithin the time period is included. Protein, Total 8.2 6.0 - 8.3 gm/dL [facility] Albumin 2.3 (L) 3.5 - 5.0 g/dL [facility] Total Bilirubin 5.3 (H) 0.2 - 1.2 mg/dL [facility] Bilirubin, Direct 3.6 (H) 0.1 - 0.5 mg/dL [facility] Alkaline Phosphatase 162 (H) 40 - 150 U/L [facility] AST 180 (H) 5 - 34 U/L [facility] ALT 67 (H) 6 - 55 U/L [facility] Specimen Blood Narrative Performed At Specimen moderately icteric [facility] Performing Organization Address City/[facility] Centercode Phone Number [facility] [address] [place] [address] [place] Basic Metabolic Panel (10/05/2018 9:49 AM CDT)Only the most recent of3 resultswithin the time period is included. Sodium 135 (L) 136 - 145 meq/L [facility] Potassium 4.3 3.5 - 5.1 meq/L [facility] Chloride 103 98 - 107 meq/L [facility] CO2 26 22 - 29 meq/L [facility] BUN 9 7 - 21 mg/dL [facility] Creatinine 0.78 0.57 - 1.25 mg/dL [facility] Glucose 75 70 - 105 mg/dL [facility] Calcium 8.1 (L) 8.4 - 10.2 mg/dL [facility] EGFR 105Comment: ESTIMATED GFR IS mL/min/1.73 sq m [facility] NOT ACCURATE CREATININE [facility] CENTER CLEARANCE IN PREDICTING GLOMERULAR FILTRATION RATE. ESTIMATED GFR IS NOT APPLICABLE FOR DIALYSIS PATIENTS. Specimen Blood Narrative Performed At Specimen moderately icteric [facility] Performing Organization Address City/State/Zipcode Phone Number [address] [address] CENTER POC-Glucose meter (09/17/2018 7:54 AM CDT)Only the most recent of5 resultswithin the time period is included. POC-Glucose Meter 98Comment: TESTED AT 70 - 110 mg/dL [address] [address] Specimen Blood Performing Organization Address City/[facility] Centercode Phone Number [address] [address] [phone] CENTER MR abdomen without & with IV contrast (09/16/2018 6:05 PM CDT) Specimen Narrative Performed At FINAL REPORT [facility] TECHNIQUE: MRI of the abdomen WITHOUT and [...] MD Report Verified Date/Time:09/17/2018 08:58:29 Reading Location: [facility] Diagnostic Imaging Reading Room - [facility] F1 1120 Procedure Note Interface, External Ris In - [...] Report Verified Date/Time: 09/17/2018 08:58:29 Reading Location: [facility] Diagnostic Imaging Reading Room - [place] [address] Performing Organization Address City/State/Zipcode Phone Number [facility] Hepatitis C antibody (09/16/2018 4:46 AM CDT) Hepatitis C Ab Nonreactive Nonreactive [facility] Specimen Blood Performing Organization Address City/State/Zipcode Phone Number [address] [phone] [place] Alpha fetoprotein (AFP), tumor marker (09/16/2018 4:46 AM CDT) Alpha-Fetoprotein <2.0 <10.0 ng/mL [facility] Specimen Blood Performing Organization Address [facility]/Zipcode Phone Number [address] [address] [phone] [facility] Ferritin (09/16/2018 4:46 AM CDT) Ferritin 489 (H) 5 - 275 ng/mL [facility] Specimen Blood Performing Organization Address City/[facility]/Zipcode Phone Number [address] [phone] [place] XR chest 1 view portable / bedside [...] MD Report Verified Date/Time:09/15/2018 07:20:18 Reading Location: [facility] Radiology Reading Room Procedure Note Interface, External [...] Report Verified Date/Time: 09/15/2018 07:20:18 Reading Location: [facility] Radiology Reading Room Performing Organization Address City/[facility] Centercoar Phone Number [facility] SOLUBLE LIVER ANTIGEN (SLA) (09/15/2018 4:49 AM CDT) Soluble Liver Antigen <20.1 See Note: U [facility] (SLA) AutoantibodyY Comment: INCORPORATED Reference Range: [...] Narrative Performed At Performing Lab [facility] EZ [employer] [facility] [address] [place] [address] Jake Singleton MD, PhD, MCKENZIE Performing Organization Address [facility] Phone Number [facility] [place] [address] INCORPORATED [address] [address] [facility] Actin (Smooth Muscle) Antibody, IgG (09/15/2018 4:48 AM CDT) Anti-Smooth Muscle Ab <20 See Note: U [facility] Comment: INCORPORATED Reference Range: <20 NEGATIVE [...] Specimen Blood Narrative Performed At Performing Lab [facility] [place] [address] Jake Singleton MD, PhD, MCKENZIE Performing Organization Address [facility] [place] [address] INCORPORATED [address] [facility] Anti-Mitochondrial Ab, reflex to titer (09/15/2018 4:46 AM CDT) Scan Result [facility] [employer] [facility] Specimen Blood Narrative Performed At Performing Organization Address [facility] [place] [address] INCORPORATED [address] [facility] LIVER-KIDNEY MICROSOME AB (09/15/2018 4:45 AM CDT) LKM-1 Antibody (IgG) <20.0 See Note: U [facility] Comment: INCORPORATED Reference Range: <=20.0 NEGATIVE 20.1-24.9EQUIVOCAL [...] Specimen Blood Narrative Performed At Performing Lab [place] [address] [place] [address] Jake Singleton MD, PhD, MCKENZIE Performing Organization Address [facility] [place] [address] INCORPORATED [address] [facility] Kyfqw-9-sjrymfidtvp (09/15/2018 4:43 AM CDT) A-1 Antitrypsin 119.90 90.00 - 200.00 mg/dL [facility] Specimen Blood Performing Organization Address [facility] Phone Number [facility] [address] [place] [address] [phone] CENTER Ceruloplasmin (09/15/2018 4:43 AM CDT) Ceruloplasmin 20 18 - 36 mg/dL [facility] Comment: Adults:Males: 18-36 mg/dL Females: 18-53 mg/dL Pediatrics:Males (mg/dL)Females (mg/dL) 0-30 Days 8-25 3-28 31 Days-11 Month 15-15-43 1-3 [id number] 4-6 [id number] 7-9 [id number] 10-12 [id number] 13-15 [id number] 16-18 [id number] The pediatric ranges are derived from the following criteria: Jan SJ, Yael JM, Charlene J et al Pediatric reference ranges for Orua-6-Kbrassjdkdrrb and ceruloplasmin. Clin. Chem 1997; 43:S1999 Pediatric Reference Ranges, 2nd., [place] Jan,et al. editors. [employer], [place], [place] 1997. Specimen Blood Narrative Performed At Performing Lab [facility] *[facility] [employer] [facility], [address] [place] [phone] David Alegre MD, PhD Performing Organization Address [facility] Centercode Phone Number [facility] [place] [id number] [place] [address] Hepatitis A antibody, IgG (09/14/2018 6:07 PM CDT) Hep A IgG Reactive (A) Nonreactive [facility] Specimen Blood Performing Organization Address [facility]/Zipcode Phone Number [facility] [address] [place] [address] CENTER Hepatitis B surface antibody (09/14/2018 6:07 PM CDT) Hep B S Ab <8.0 <8.0 mIU/mL [facility] Specimen Blood Performing Organization Address City/[facility]/Zipcode Phone Number [address] [phone] [place] Hepatitis B surface antigen (09/14/2018 6:07 PM CDT) hepatitis B Surface Ag Nonreactive Nonreactive [facility] Specimen Blood Performing Organization Address City/[facility]/Zipcode Phone Number [address] [address] [phone] [place] Anti-Nuclear Antibody (HEIDY) (09/14/2018 6:06 PM CDT) HEIDY Negative Negative [facility] Specimen Blood Narrative Performed At Test performed by IFA method. [facility] Test performed by IFA method. Performing Organization Address [facility] Centercoar Phone Number [address] [phone] [facility] [place] US paracentesis (09/14/2018 3:38 PM CDT) Specimen Narrative Performed At FINAL REPORT [facility] Indication: Ascites. Technique: Ultrasound guided paracentesis. Findings: Preliminary ultrasound confirms ascites. A safe window was identified in the right lower quadrant. The procedure was explained to the patient and informed consent was signed. The skin was marked and prepped in standard sterile fashion. Lidocaine was used for local anesthesia. A 5 Icelandic needle catheter system was advanced into the peritoneal space. 6000 cc cloudy yellow fluid was taken off. Patient tolerated the procedure well. Impression: Ultrasound guided paracentesis. Signed: Gregorio Lott MD Report Verified Date/Time:09/14/2018 16:46:50 Reading Location: [facility] B1 C013Y CT Body Reading Room Procedure [...] was used for local anesthesia. A 5 Icelandic needle catheter system was advanced into the peritoneal space. 6000 cc cloudy yellow fluid was taken off. Patient tolerated the procedure well. Impression: Ultrasound guided paracentesis. Signed: Gregorio Lott MD Report Verified Date/Time: 09/14/2018 16:46:50 Reading Location: [facility] B1 C013Y CT Body Reading Room Performing Organization Address [facility] Phone Number [facility] Body fluid cell count with differential (09/14/2018 3:06 PM CDT) Appearance Hazy (A) Clear [facility] Color Yellow (A) Colorless, Straw [facility] RBCs 2,000 (H) <=1 /cu mm [facility] Adjusted WBC Count 270 (H) <=5 /cu mm [facility] Lining Cells 0 <=1 /cu mm [facility] % Segs 41 % [facility] % Lymphs 30 % [facility] % Monos 29 % [facility] % Eos 0 % [facility] % Baso 0 % [facility] Container Body Fluid EDTA Tube [facility] Specimen Body Fluid Performing Organization Address [facility] Center[facility] Phone Number [address] [address] [phone] CENTER Protein, body fluid (09/14/2018 3:06 PM CDT) Protein, Fluid 0.9 g/dL [facility] Specimen Body Fluid Narrative Performed At Absence of reference range indicates that [facility] normals have not been defined. Assay performance has not been validated for this type of specimen. Performing Organization Address City/[facility] Centercode Phone Number [facility] [address] [place] [address] [phone] CENTER Albumin, body fluid (09/14/2018 3:06 PM CDT) Albumin, Fluid 0.4 gm/dL [facility] Specimen Body Fluid Narrative Performed At Reference Range:No Normals [facility] Assay performance has not been validated for this type of specimen. Performing Organization Address City/State/Zipcode Phone Number [facility] [address] [place] [address] [phone] [place] US abdomen complete (09/14/2018 8:40 AM CDT) Specimen Narrative Performed At FINAL REPORT [facility] INDICATION: Abdominal pain. TECHNIQUE: Abdominal ultrasound complete. [...] MD Report Verified Date/Time:09/14/2018 09:28:37 Reading Location: [address] Body Reading Room Procedure Note Interface, [...] Report Verified Date/Time: 09/14/2018 09:28:37 Reading Location: [facility] C013Y CT Body Reading Room Performing Organization Address City/State/Zipcode Phone Number [facility] TSH (09/14/2018 4:41 AM CDT) TSH 1.93 0.35 - 4.94 uIU/mL [facility] Specimen Blood Performing Organization Address [facility] Centercode Phone Number [address] [address] [place] T4, free (09/14/2018 4:41 AM CDT) Free T4 0.87 0.70 - 1.48 ng/dL [facility] Specimen Blood Performing Organization Address [facility] Centercode Phone Number [address] [address] [phone] [facility] [place] Blood Culture - Routine (Right Venipuncture) (09/14/2018 12:26 AM CDT) Result No growth in 5 days [facility] Specimen Blood Performing Organization Address [facility] Centercode Phone Number [address] [address] [phone] CENTER after 12/10/2017 Insurance Payer Benefit Plan / Subscriber ID Type Phone Address Group OPTUM NON UNITED - OPTUM NON-UNITED xxxxxxxxx MEDICAID MGD CARE STAR MEDICAID - MEDICAID LILY [facility] COMM STAR xxxxxxxxx Medicaid Contracted MGD CARE PLAN (Home) [address] [place] [address] Advance Directives For more information, please contact:[place] [address] [address] [place], [place] [phone] Code Status Date Activated Date Inactivated Comments Full Code 09/13/2018 10:24 PM 09/17/2018 2:42 PM This code status was determined by: Patient
--- OUTSIDE RECORDS SUMMARY | 2018-12-11 12:24 | XMS REPORT ---
:1965 [facility] Address [address] [place] [address] Care Team Providers Name Role Phone MARK MISHRA FAUSTIN Unavailable Unavailable FRANK PAIGE Unavailable Unavailable Problems This patient has no known problems. Allergies, Adverse Reactions, Alerts This patient has no known allergies or adverse reactions. Medications This patient has no known medications. Results Test Description Test Time Test Comments Text Results Atomic Results Result Comments HEMOGLOBIN A1C 2018-10-15 14:39:00 Test Item Value Reference Range Comments HEMOGLOBIN A1C (GITAAKER) (test gjhc=046) 4.0 % 4.3-6.1 MYOCARD IMAGING, MULTI, PHARM, [id number] 13:54:00FINAL REPORT PROCEDURE: MYOCARDIAL PERFUSION SPECT IMAGING (Rest/Stress)CPT CODE : 07124 INDICATION: Preoperative evaluation for liver transplantation CARDIOVASCULAR [...] Verified Date/Time: 10/15/2018 13:54 :29 Reading Location: [address] Reading Room CRYPTOCOCCAL [id number] 13:16:00 Test Item Value Reference Range Comments CRYPTOCOCCAL ANTIGEN, SERUM (BEAKER) (test Negative Negative, Interference rvwb=1857) [id number] 13:16:00 Test Item Value Reference Range Comments RPR SCREEN (BEAKER) (test sxdb=493) Nonreactive Nonreactive URINALYSIS W/ [id number] 11:42:00 Test Item Value Reference Range Comments COLOR (BEAKER) (test kjey=337) Dark Yellow CLARITY (BEAKER) (test okdw=344) Clear SPECIFIC GRAVITY UA (BEAKER) (test gpyu=174) 1.019 1.001-1.035 PH UA (BEAKER) (test wkhy=789) 5.5 5.0-8.0 PROTEIN UA (BEAKER) (test xcpm=463) Negative Negative GLUCOSE UA (BEAKER) (test nney=433) Negative Negative KETONES UA (BEAKER) (test hqiw=950) Negative Negative BILIRUBIN UA (BEAKER) (test djxb=473) Negative Negative BLOOD UA (BEAKER) (test kkgb=559) Negative Negative NITRITE UA (BEAKER) (test bevp=941) Negative Negative LEUKOCYTE ESTERASE UA (BEAKER) (test ttiu=762) Negative Negative UROBILINOGEN UA (BEAKER) (test fpyk=855) 3.0 mg/dL 0.2-1.0 RBC UA (BEAKER) (test qrtk=361) < /HPF WBC UA (BEAKER) (test ozxm=711) 3 /HPF BACTERIA (BEAKER) (test dtvm=929) Rare MUCUS (BEAKER) (test hdvy=2195) Occasional SOURCE(BEAKER) (test xxpg=8440) CYTOMEGALOVIRUS ANTIBODY, [id number] 10:44:00 Test Item Value Reference Range Comments CYTOMEGALOVIRUS, IGG (BEAKER) (test zwjb=4439) Positive Negative, Equivocal CMV IgG Result Interpretation: </=0.8 Al Negative 0.9-1.0 Al Equivocal &gt ;/=1.1 Al PositiveCYTOMEGALOVIRUS ANTIBODY, [id number] 10:44:00 Test Item Value Reference Range Comments CYTOMEGALOVIRUS IGM ANTIBODY (BEAKER) (test Equivocal Negative, Equivocal rxjk=4150) CMV IgM Result Interpretation: </=0.8 Al Negative 0.9-1.0 Al Equivocal >/=1.1 Al PositiveEBV ANTIBODY, [id number] 10:44:00 Test Item Value Reference Range Comments JOSEPH LAMAR VIRAL CAPSID ANTIGEN IGG (BEAKER) Positive Negative, Equivocal (test vzzy=7523) Joseph Lamar Viral Capsid Antigen IgG Result Interpretation: </=0.8 Al Negative 0.9-1.0 Al Equivocal >/=1.1 Al PositiveEBV ANTIBODY, [id number] 10:44:00 Test Item Value Reference Range Comments JOSEPH LAMAR VIRAL CAPSID ANTIGEN IGM (BEAKER) Negative Negative, Equivocal (test qtch=5153) Joseph Lamar Viral Capsid Antigen IgM Result Interpretation: </=0.8 Al Negative 0.9-1.0 Al Equivocal >/=1.1 Al PositiveHEPATITIS B CORE ANTIBODY , [id number] 08:51:00 Test Item Value Reference Range Comments HEPATITIS B CORE IGM ANTIBODY (BEAKER) (test Nonreactive Nonreactive gpgj=573) HIV-1 ANTIGEN WITH HIV-1/2 [id number] 08:51:00 Test Item Value Reference Range Comments HIV-1 ANTIGEN WITH HIV 1\T\2 ANTIBODY (2) Nonreactive Nonreactive (BEAKER) (test whaj=1728) [id number] 08:49:00 Test Item Value Reference Range Comments PROSTATE SPECIFIC ANTIGEN (BEAKER) (test nzao=133) 0.0 ng/mL 0.0-4.0 CARCINOEMBRYONIC ANTIGEN (CEA)2018-10-15 08:47:00 Test Item Value Reference Range Comments CARCINOEMBRYONIC ANTIGEN (BEAKER) (test xths=562) 12.8 ng/mL 0.0-5.0 HEPATITIS A ANTIBODY, [id number] 08:47:00 Test Item Value Reference Range Comments HEPATITIS A IGM ANTIBODY (BEAKER) (test Nonreactive Nonreactive zdgf=366) HEPATITIS B CORE ANTIBODY, [id number] 08:47:00 Test Item Value Reference Range Comments HEPATITIS B CORE TOTAL ANTIBODY (BEAKER) (test Nonreactive Nonreactive spdb=643) VITAMIN D, [id number] 08:45:00 Test Item Value Reference Range Comments VITAMIN D 25-OH (BEAKER) (test qsoe=2354) 8.9 ng/mL 6.6-49.9 Effective 01/29/2017: Reference Range ChangeNew: 6.6-49.9 ng/mL Previous: 13.0 -47.8 ng/mLRecommended Vitamin D Target Range: 30.0-40.0 ng/[id number] 08:26:00 Test Item Value Reference Range Comments MAGNESIUM (BEAKER) (test uhkh=880) 1.5 mg/dL 1.6-2.6 [id number] 08:26:00 Test Item Value Reference Range Comments PHOSPHORUS (BEAKER) (test xaco=952) 3.9 mg/dL 2.3-4.7 URIC [id number] 08:26:00 Test Item Value Reference Range Comments URIC ACID (BEAKER) (test giab=850) 3.7 mg/dL 2.6-7.2 Specimen moderately ictericCOMPREHENSIVE METABOLIC [id number] 08:26:00 Test Item Value Reference Range Comments TOTAL PROTEIN (BEAKER) 7.7 gm/dL 6.0-8.3 (test ktjr=171) ALBUMIN (BEAKER) (test 2.2 g/dL 3.5-5.0 omkd=8532) ALKALINE PHOSPHATASE 165 U/L 40-150 (BEAKER) (test tzyv=400) BILIRUBIN TOTAL (BEAKER) 6.3 mg/dL 0.2-1.2 (test tmva=432) SODIUM (BEAKER) (test 135 meq/L 136-145 unos=094) POTASSIUM (BEAKER) (test 4.1 meq/L 3.5-5.1 onxu=886) CHLORIDE (BEAKER) (test 105 meq/L 98-107 dkfl=134) CO2 (BEAKER) (test 27 meq/L 22-29 pboh=043) BLOOD UREA NITROGEN 15 mg/dL 7-21 (BEAKER) (test kenx=752) CREATININE (BEAKER) (test 0.88 mg/dL 0.57-1.25 ybhe=592) GLUCOSE RANDOM (BEAKER) 84 mg/dL 70-105 (test hsxk=312) CALCIUM (BEAKER) (test 8.9 mg/dL 8.4-10.2 siof=227) AST (SGOT) (BEAKER) (test 125 U/L 5-34 tadt=468) ALT (SGPT) (BEAKER) (test 49 U/L 6-55 qxij=462) EGFR (BEAKER) (test 91 mL/min/1.73 sq m ESTIMATED GFR IS NOT yyqg=3311) ACCURATE CREATININE CLEARANCE IN PREDICTING GLOMERULAR FILTRATION RATE. ESTIMATED GFR IS NOT APPLICABLE FOR DIALYSIS PATIENTS. Specimen moderately ictericLIPID [id number] 08:26:00 Test Item Value Reference Range Comments TRIGLYCERIDES (BEAKER) (test bqvs=359) 70 mg/dL CHOLESTEROL (BEAKER) (test lqdl=035) 121 mg/dL HDL CHOLESTEROL (BEAKER) (test ojlk=663) 8 mg/dL LDL CHOLESTEROL CALCULATED (BEAKER) (test 99 mg/dL qihs=672) Triglyceride Reference Range: Low Risk <150 Borderline 150- 199 High Risk 200-499 Very High Risk >=500Cholesterol Reference Range: Low Risk <200 Borderline 200-239 High Risk > 240HDL Cholesterol Reference Range: Low Risk >=60 High Risk <40LDL Cholesterol Reference Range: Optimal <100 Near Optimal 100-129 Borderline 130-159 High 160-189 Very High >=190 Specimen moderatelyictericBILIRUBIN, [id number] 08:26:00 Test Item Value Reference Range Comments BILIRUBIN DIRECT (BEAKER) (test qhgk=111) 3.6 mg/dL 0.1-0.5 GAMMA GLUTAMYL TRANSFERASE (GGT)2018-10-15 08:26:00 Test Item Value Reference Range Comments GAMMA GLUTAMYL TRANSFERASE (BEAKER) (test qbqh=691) 68 U/L 9-64 Specimen moderately [id number] 08:25:00 Test Item Value Reference Range Comments TRANSFERRIN (BEAKER) (test pnqu=888) 106 mg/dL 174-382 Specimen moderately ictericIRON, TIBC, % SAT. (WITHOUT FERRITIN)2018-10-15 08:25 :00 Test Item Value Reference Range Comments IRON (BEAKER) (test zevu=054) 134.0 ug/dL 40.0-160.0 TOTAL IRON BINDING CAPACITY (BEAKER) (test 133 ug/dL 250-450 irro=632) IRON % SATURATION (2) (BEAKER) (test tjcm=8806) 101 % 20-55 [id number] 08:22:00 Test Item Value Reference Range Comments ETHANOL (BEAKER) (test rctl=497) < mg/dL <=10 [id number] 08:14:00 Test Item Value Reference Range Comments FIBRINOGEN LEVEL (BEAKER) (test eejp=699) 201 mg/dl 225-434 [id number] 08:09:00 Test Item Value Reference Range Comments PARTIAL THROMBOPLASTIN TIME (BEAKER) (test 49.2 seconds 22.5-36.0 jmsj=438) CALCIUM, [id number] 08:09:00 Test Item Value Reference Range Comments CALCIUM IONIZED (BEAKER) (test fzti=014) 1.07 mmol/L 1.12-1.27 PH, BLOOD (BEAKER) (test zcmy=8736) 7.44 PROTHROMBIN TIME/[id number] 08:08:00 Test Item Value Reference Range Comments PROTIME (BEAKER) (test ecoe=165) 21.4 seconds 11.9-14.2 INR (BEAKER) (test zmvy=662) 2.0 <=5.9 Effective 09/16/2018: PT Reference Range ChangeNew: 11.9-14.2 Previous: 11.7- 14.7RECOMMENDED COUMADIN/WARFARIN INR THERAPY RANGESSTANDARD DOSE: 2.0-3.0 Includes: PROPHYLAXIS for venous thrombosis, systemic embolization; TREATMENT for venous thrombosis and/or pulmonary embolus.HIGH RISK: Target INR is2.5-3.5 for patients wiht mechanical heart valves.CBC W/PLT COUNT & AUTO [id number] 07:59:00 Test Item Value Reference Range Comments WHITE BLOOD CELL COUNT (BEAKER) (test kzkb=037) 5.4 K/ L 3.5-10.5 RED BLOOD CELL COUNT (BEAKER) (test rfcf=173) 3.03 M/ L 4.63-6.08 HEMOGLOBIN (BEAKER) (test irdj=959) 11.0 GM/DL 13.7-17.5 HEMATOCRIT (BEAKER) (test umoo=312) 32.2 % 40.1-51.0 MEAN CORPUSCULAR VOLUME (BEAKER) (test gpvc=317) 106.3 fL 79.0-92.2 MEAN CORPUSCULAR HEMOGLOBIN (BEAKER) (test 36.3 pg 25.7-32.2 esyz=411) MEAN CORPUSCULAR HEMOGLOBIN CONC (BEAKER) (test 34.2 GM/DL 32.3-36.5 rpjo=629) RED CELL DISTRIBUTION WIDTH (BEAKER) (test 14.7 % 11.6-14.4 jepl=624) PLATELET COUNT (BEAKER) (test pfmp=844) 76 K/CU MM 150-450 MEAN PLATELET VOLUME (BEAKER) (test iseo=159) 11.8 fL 9.4-12.4 NUCLEATED RED BLOOD CELLS (BEAKER) (test 0 /100 WBC 0-0 spnm=539) NEUTROPHILS RELATIVE PERCENT (BEAKER) (test 59 % hluh=928) LYMPHOCYTES RELATIVE PERCENT (BEAKER) (test 29 % jbdn=611) MONOCYTES RELATIVE PERCENT (BEAKER) (test 6 % abgo=510) EOSINOPHILS RELATIVE PERCENT (BEAKER) (test 4 % bxfd=622) BASOPHILS RELATIVE PERCENT (BEAKER) (test 1 % hdpt=267) NEUTROPHILS ABSOLUTE COUNT (BEAKER) (test 3.19 K/ L 1.78-5.38 rdip=666) LYMPHOCYTES ABSOLUTE COUNT (BEAKER) (test 1.58 K/ L 1.32-3.57 cvon=239) MONOCYTES ABSOLUTE COUNT (BEAKER) (test pxbi=611) 0.32 K/ L 0.30-0.82 EOSINOPHILS ABSOLUTE COUNT (BEAKER) (test 0.23 K/ L 0.04-0.54 wbdk=222) BASOPHILS ABSOLUTE COUNT (BEAKER) (test eygc=239) 0.03 K/ L 0.01-0.08 IMMATURE GRANULOCYTES-RELATIVE PERCENT (BEAKER) 0 % 0-1 (test cklg=5478) RAD, CHEST, 2 [id number] 13:28:00Reason for Exam:->Pre-transplant evaluation for liver transplantFINAL REPORT INDICATION: Pre-transplant evaluation for liver transplant COMPARISON: September 15, 2018 TECHNIQUE: Chest radiograph, two views, PA and lateral. FINDINGS / IMPRESSION: Lung volumes are normal and no pneumonia or pulmonary edema is demonstrated. Heart shadow normal in size. No pneumothorax or pleural effusion demonstrated. Osseous structures unremarkable. Signed: Gregorio Lott MDReport Verified Date/ Time: 10/14/2018 13:28:52 Reading Location: [address] Radiology Reading Room 01: 28 PMRAD, MANDIBLE, MIN 4 [id number] 12:14:00Reason for Exam:->Pre- transplant evaluation for liver [...] maxillofacial CT is recommended. Signed: Yan Gooden Verified Date/Time: 10/14/2018 12:14:27 Reading Location: [facility] Radiology Reading Room Electronically signed by: YAN GOODEN M.D. on 12:14 PMRAD, BONE DENSITY [id number] 12:10:00Reason for Exam:-> Pre-transplant evaluation for liver [...] and the Z-score is -1.4. Signed: Juanita Watkinsepbrigitte Verified Date/Time: 10/14/2018 12:10:27 Reading Location: [facility] Mammo Reading Room 12 :10 PMCBC W/PLT COUNT & AUTO [id number] 12:37:00 Test Item Value Reference Range Comments WHITE BLOOD CELL COUNT (BEAKER) (test cgkc=366) 6.1 K/ L 3.5-10.5 RED BLOOD CELL COUNT (BEAKER) (test modo=274) 3.15 M/ L 4.63-6.08 HEMOGLOBIN (BEAKER) (test aezb=886) 11.5 GM/DL 13.7-17.5 HEMATOCRIT (BEAKER) (test bnsa=940) 34.6 % 40.1-51.0 MEAN CORPUSCULAR VOLUME (BEAKER) (test gvlf=666) 109.8 fL 79.0-92.2 MEAN CORPUSCULAR HEMOGLOBIN (BEAKER) (test 36.5 pg 25.7-32.2 ghvj=881) MEAN CORPUSCULAR HEMOGLOBIN CONC (BEAKER) (test 33.2 GM/DL 32.3-36.5 nioi=669) RED CELL DISTRIBUTION WIDTH (BEAKER) (test 15.4 % 11.6-14.4 porx=581) PLATELET COUNT (BEAKER) (test orlc=144) 83 K/CU MM 150-450 MEAN PLATELET VOLUME (BEAKER) (test zqgt=846) 12.3 fL 9.4-12.4 NUCLEATED RED BLOOD CELLS (BEAKER) (test 0 /100 WBC 0-0 fuag=277) (CELLAVISION MANUAL DIFF)2018-10-05 12:37:00 Test Item Value Reference Range Comments NEUTROPHILS - REL (CELLAVISION)(BEAKER) (test 75 % sxny=8001) LYMPHOCYTES - REL (CELLAVISION)(BEAKER) (test 13 % tnry=5675) MONOCYTES - REL (CELLAVISION)(BEAKER) (test 12 % xswl=7969) EOSINOPHILS - REL (CELLAVISION)(BEAKER) (test 1 % waxq=1832) NEUTROPHILS - ABS (CELLAVISION)(BEAKER) (test 4.58 K/ul 1.78-5.38 srje=6993) LYMPHOCYTES - ABS (CELLAVISION)(BEAKER) (test 0.79 K/ul 1.32-3.57 fzln=5757) MONOCYTES - ABS (CELLAVISION)(BEAKER) (test 0.73 K/uL 0.30-0.82 kqih=7593) EOSINOPHILS - ABS (CELLAVISION)(BEAKER) (test 0.06 K/uL 0.04-0.54 bkcr=0701) TOTAL COUNTED (BEAKER) (test zway=4401) 100 WBC MORPHOLOGY (BEAKER) (test hsxo=324) Normal PLT MORPHOLOGY (BEAKER) (test uowh=757) Normal ANISOCYTOSIS (BEAKER) (test mdqy=530) 3+ many MACROCYTES (BEAKER) (test ojso=793) 3+ many ARTIFACT (CELLAVISION)(BEAKER) (test bell=5906) Present PLATELET CONCENTRATION (CELLAVISION)(BEAKER) (test Decreased acsi=6651) Received comment: User comments: Slide comments:BASIC METABOLIC [id number] 12:30:00 Test Item Value Reference Range Comments SODIUM (BEAKER) (test 135 meq/L 136-145 uyoh=298) POTASSIUM (BEAKER) (test 4.3 meq/L 3.5-5.1 xexb=110) CHLORIDE (BEAKER) (test 103 meq/L 98-107 tsqi=411) CO2 (BEAKER) (test 26 meq/L 22-29 ffvk=045) BLOOD UREA NITROGEN 9 mg/dL 7-21 (BEAKER) (test yqcw=842) CREATININE (BEAKER) (test 0.78 mg/dL 0.57-1.25 awiz=110) GLUCOSE RANDOM (BEAKER) 75 mg/dL 70-105 (test mezg=768) CALCIUM (BEAKER) (test 8.1 mg/dL 8.4-10.2 kfwa=168) EGFR (BEAKER) (test 105 mL/min/1.73 sq m ESTIMATED GFR IS NOT jyuq=2042) ACCURATE CREATININE CLEARANCE IN PREDICTING GLOMERULAR FILTRATION RATE. ESTIMATED GFR IS NOT APPLICABLE FOR DIALYSIS PATIENTS. Specimen moderately ictericHEPATIC FUNCTION [id number] 12:30:00 Test Item Value Reference Range Comments TOTAL PROTEIN (BEAKER) (test qcxn=963) 8.2 gm/dL 6.0-8.3 ALBUMIN (BEAKER) (test telr=5166) 2.3 g/dL 3.5-5.0 BILIRUBIN TOTAL (BEAKER) (test cqzn=624) 5.3 mg/dL 0.2-1.2 BILIRUBIN DIRECT (BEAKER) (test dylx=670) 3.6 mg/dL 0.1-0.5 ALKALINE PHOSPHATASE (BEAKER) (test jvqz=485) 162 U/L 40-150 AST (SGOT) (BEAKER) (test tbkn=337) 180 U/L 5-34 ALT (SGPT) (BEAKER) (test efho=174) 67 U/L 6-55 Specimen moderately ictericPROTHROMBIN [id number] 12:03:00 Test Item Value Reference Range Comments PROTIME (BEAKER) (test whio=495) 21.8 seconds 11.9-14.2 INR (BEAKER) (test gcvv=760) 2.0 <=5.9 Effective 09/16/2018: PT Reference Range ChangeNew: 11.9-14.2 Previous: 11.7- 14.7RECOMMENDED COUMADIN/WARFARIN INR THERAPY RANGESSTANDARD DOSE: 2.0-3.0 Includes: PROPHYLAXIS for venous thrombosis, systemic embolization; TREATMENT for venous thrombosis and/or pulmonary embolus.HIGH RISK: Target INR is2.5-3.5 for patients wiht mechanical heart valves.BLOOD [id number] 08:00:00 Test Item Value Reference Range Comments CULTURE (GITAAKER) (test vnmw=6615) No growth in 5 days ANTI-MITOCHONDRIAL AB, REFLEX TO [id number] 08:08:00 Test Item Value Reference Range Comments SCAN RESULT (test ugyu=[id number]) MR, ABDOMEN, [id number] 08:58:00FINAL REPORT TECHNIQUE: MRI of the abdomen [...] Saenz Verified Date/Time: 09/17/2018 08:58:29 Reading Location: [facility] Diagnostic Imaging Reading Room - [place] [address] POCT- GLUCOSE [id number] 08:20:00 Test Item Value Reference Range Comments POC-GLUCOSE METER (BEAKER) 98 mg/dL 70-110 TESTED AT [address] (test urso=4788) [facility] [address] COMPREHENSIVE METABOLIC [id number] 04:44:00 Test Item Value Reference Range Comments TOTAL PROTEIN (BEAKER) 5.9 gm/dL 6.0-8.3 (test rcdo=225) ALBUMIN (BEAKER) (test 1.8 g/dL 3.5-5.0 ymzs=7665) ALKALINE PHOSPHATASE 142 U/L 40-150 (BEAKER) (test hwkx=520) BILIRUBIN TOTAL (BEAKER) 6.3 mg/dL 0.2-1.2 (test xqqo=879) SODIUM (BEAKER) (test 135 meq/L 136-145 mrgm=013) POTASSIUM (BEAKER) (test 3.7 meq/L 3.5-5.1 ydgf=961) CHLORIDE (BEAKER) (test 102 meq/L 98-107 rnmm=899) CO2 (BEAKER) (test 31 meq/L 22-29 gjgo=741) BLOOD UREA NITROGEN 9 mg/dL 7-21 (BEAKER) (test kdek=513) CREATININE (BEAKER) (test 0.71 mg/dL 0.57-1.25 zjjv=542) GLUCOSE RANDOM (BEAKER) 88 mg/dL 70-105 (test ifby=744) CALCIUM (BEAKER) (test 7.5 mg/dL 8.4-10.2 vovj=139) AST (SGOT) (BEAKER) (test 99 U/L 5-34 oblo=376) ALT (SGPT) (BEAKER) (test 31 U/L 6-55 nyit=168) EGFR (BEAKER) (test 117 mL/min/1.73 sq ESTIMATED GFR IS NOT xsgd=4718) m ACCURATE CREATININE CLEARANCE IN PREDICTING GLOMERULAR FILTRATION RATE. ESTIMATED GFR IS NOT APPLICABLE FOR DIALYSIS PATIENTS. Specimen moderately [id number] 04:41:00 Test Item Value Reference Range Comments MAGNESIUM (BEAKER) (test bjbm=484) 1.7 mg/dL 1.6-2.6 PROTHROMBIN [id number] 04:28:00 Test Item Value Reference Range Comments PROTIME (BEAKER) (test dczr=043) 24.3 seconds 11.9-14.2 INR (BEAKER) (test zgbc=362) 2.3 <=5.9 Effective 09/16/2018: PT Reference Range ChangeNew: 11.9-14.2 Previous: 11.7- 14.7RECOMMENDED COUMADIN/WARFARIN INR THERAPY RANGESSTANDARD DOSE: 2.0-3.0 Includes: PROPHYLAXIS for venous thrombosis, systemic embolization; TREATMENT for venous thrombosis and/or pulmonary embolus.HIGH RISK: Target INR is2.5-3.5 for patients wiht mechanical heart valves.CBC W/PLT COUNT & AUTO [id number] 04:20:00 Test Item Value Reference Range Comments WHITE BLOOD CELL COUNT (BEAKER) (test nvqv=398) 5.3 K/ L 3.5-10.5 RED BLOOD CELL COUNT (BEAKER) (test ywob=376) 2.51 M/ L 4.63-6.08 HEMOGLOBIN (BEAKER) (test rblf=955) 9.3 GM/DL 13.7-17.5 HEMATOCRIT (BEAKER) (test ukms=536) 28.0 % 40.1-51.0 MEAN CORPUSCULAR VOLUME (BEAKER) (test nseq=612) 111.6 fL 79.0-92.2 MEAN CORPUSCULAR HEMOGLOBIN (BEAKER) (test 37.1 pg 25.7-32.2 embp=075) MEAN CORPUSCULAR HEMOGLOBIN CONC (BEAKER) (test 33.2 GM/DL 32.3-36.5 gadg=969) RED CELL DISTRIBUTION WIDTH (BEAKER) (test 17.6 % 11.6-14.4 jinw=261) PLATELET COUNT (BEAKER) (test rlcg=198) 60 K/CU MM 150-450 MEAN PLATELET VOLUME (BEAKER) (test xpqz=713) 11.2 fL 9.4-12.4 NUCLEATED RED BLOOD CELLS (BEAKER) (test 0 /100 WBC 0-0 bspu=106) NEUTROPHILS RELATIVE PERCENT (BEAKER) (test 62 % aisb=863) LYMPHOCYTES RELATIVE PERCENT (BEAKER) (test 24 % bmrr=216) MONOCYTES RELATIVE PERCENT (BEAKER) (test 9 % dheh=666) EOSINOPHILS RELATIVE PERCENT (BEAKER) (test 4 % ehxw=286) BASOPHILS RELATIVE PERCENT (BEAKER) (test 1 % zica=764) NEUTROPHILS ABSOLUTE COUNT (BEAKER) (test 3.28 K/ L 1.78-5.38 xpyj=740) LYMPHOCYTES ABSOLUTE COUNT (BEAKER) (test 1.24 K/ L 1.32-3.57 qpti=008) MONOCYTES ABSOLUTE COUNT (BEAKER) (test hcwe=233) 0.46 K/ L 0.30-0.82 EOSINOPHILS ABSOLUTE COUNT (BEAKER) (test 0.23 K/ L 0.04-0.54 qfxa=540) BASOPHILS ABSOLUTE COUNT (BEAKER) (test ntxn=450) 0.04 K/ L 0.01-0.08 IMMATURE GRANULOCYTES-RELATIVE PERCENT (BEAKER) 0 % 0-1 (test dmtg=1617) POCT-GLUCOSE [id number] 00:39:00 Test Item Value Reference Range Comments POC-GLUCOSE METER (BEAKER) 98 mg/dL 70-110 TESTED AT [address] (test mnji=7518) [facility] [address] POCT-GLUCOSE [id number] 18:48:00 Test Item Value Reference Range Comments POC-GLUCOSE METER (BEAKER) 112 mg/dL 70-110 TESTED AT [address] (test eamx=6011) [facility] [address] POCT-GLUCOSE [id number] 13:00:00 Test Item Value Reference Range Comments POC-GLUCOSE METER (BEAKER) 107 mg/dL 70-110 TESTED AT [address] (test kgud=4465) [facility] [address] URINALYSIS W/ [id number] 10:57:00 Test Item Value Reference Range Comments COLOR (BEAKER) (test damg=041) Yellow CLARITY (BEAKER) (test wsro=767) Clear SPECIFIC GRAVITY UA (BEAKER) (test hlvz=981) 1.005 1.001-1.035 PH UA (BEAKER) (test ghkk=931) 6.5 5.0-8.0 PROTEIN UA (BEAKER) (test kkai=000) Negative Negative GLUCOSE UA (BEAKER) (test fepa=186) Negative Negative KETONES UA (BEAKER) (test kepz=381) Negative Negative BILIRUBIN UA (BEAKER) (test zqbv=062) Negative Negative BLOOD UA (BEAKER) (test ideh=490) Negative Negative NITRITE UA (BEAKER) (test wjbu=926) Negative Negative LEUKOCYTE ESTERASE UA (BEAKER) (test nrrh=730) Negative Negative UROBILINOGEN UA (BEAKER) (test gpfh=500) 2.0 mg/dL 0.2-1.0 RBC UA (BEAKER) (test hbwl=396) 0 /HPF WBC UA (BEAKER) (test hnky=312) < /HPF SOURCE(BEAKER) (test mdha=9008) Urine, Voided COMPREHENSIVE METABOLIC [id number] 10:29:00 Test Item Value Reference Range Comments TOTAL PROTEIN (BEAKER) 5.9 gm/dL 6.0-8.3 (test vmko=421) ALBUMIN (BEAKER) (test 1.9 g/dL 3.5-5.0 ipsj=2391) ALKALINE PHOSPHATASE 139 U/L 40-150 (BEAKER) (test nprz=640) BILIRUBIN TOTAL (BEAKER) 7.4 mg/dL 0.2-1.2 (test vcon=507) SODIUM (BEAKER) (test 134 meq/L 136-145 wjtz=943) POTASSIUM (BEAKER) (test 3.8 meq/L 3.5-5.1 acql=233) CHLORIDE (BEAKER) (test 101 meq/L 98-107 ibzp=284) CO2 (BEAKER) (test 27 meq/L 22-29 giph=893) BLOOD UREA NITROGEN 8 mg/dL 7-21 (BEAKER) (test hiyh=083) CREATININE (BEAKER) (test 0.61 mg/dL 0.57-1.25 bwut=789) GLUCOSE RANDOM (BEAKER) 120 mg/dL 70-105 (test inwa=615) CALCIUM (BEAKER) (test 7.6 mg/dL 8.4-10.2 qfte=082) AST (SGOT) (BEAKER) (test 112 U/L 5-34 ajpt=147) ALT (SGPT) (BEAKER) (test 34 U/L 6-55 kaxw=744) EGFR (BEAKER) (test 139 mL/min/1.73 sq ESTIMATED GFR IS NOT awwd=2282) m ACCURATE CREATININE CLEARANCE IN PREDICTING GLOMERULAR FILTRATION RATE. ESTIMATED GFR IS NOT APPLICABLE FOR DIALYSIS PATIENTS. Specimen moderately [id number] 10:24:00 Test Item Value Reference Range Comments MAGNESIUM (BEAKER) (test jwuf=147) 1.7 mg/dL 1.6-2.6 ANTI-NUCLEAR ANTIBODY (HEIDY)2018-09-16 07:54:00 Test Item Value Reference Range Comments ANTI-NUCLEAR ANTIBODY (HEIDY) (BEAKER) (test Negative Negative xtvw=514) Test performed by IFA method.Test performed by IFA method.[id number] 06: 21:00 Test Item Value Reference Range Comments FERRITIN (BEAKER) (test uudy=770) 489 ng/mL 5-275 HEPATITIS C [id number] 05:42:00 Test Item Value Reference Range Comments HEPATITIS C ANTIBODY (BEAKER) (test bmsa=237) Nonreactive Nonreactive ALPHA FETOPROTEIN (AFP), TUMOR [id number] 05:42:00 Test Item Value Reference Range Comments ALPHA-FETOPROTEIN (BEAKER) (test jxvr=3803) < ng/mL <10.0 PROTHROMBIN TIME/[id number] 05:23:00 Test Item Value Reference Range Comments PROTIME (BEAKER) (test rqpx=352) 24.7 seconds 11.9-14.2 INR (BEAKER) (test zuva=348) 2.4 <=5.9 RECOMMENDED COUMADIN/WARFARIN INR THERAPY RANGESSTANDARD DOSE: 2.0 - 3.0 Includes: PROPHYLAXIS forvenous thrombosis, systemic embolization; TREATMENT for venous thrombosis and/or pulmonary embolus.HIGH RISK: Target INR is 2.5-3.5 for patients with mechanical heart valves.CBC W/PLT COUNT & AUTO [id number] 05:15:00 Test Item Value Reference Range Comments WHITE BLOOD CELL COUNT (BEAKER) (test lylx=067) 5.4 K/ L 3.5-10.5 RED BLOOD CELL COUNT (BEAKER) (test mqrb=820) 2.65 M/ L 4.63-6.08 HEMOGLOBIN (BEAKER) (test tvjd=251) 9.7 GM/DL 13.7-17.5 HEMATOCRIT (BEAKER) (test wauc=480) 28.8 % 40.1-51.0 MEAN CORPUSCULAR VOLUME (BEAKER) (test qbhu=741) 108.7 fL 79.0-92.2 MEAN CORPUSCULAR HEMOGLOBIN (BEAKER) (test 36.6 pg 25.7-32.2 ierf=523) MEAN CORPUSCULAR HEMOGLOBIN CONC (BEAKER) (test 33.7 GM/DL 32.3-36.5 ysrs=124) RED CELL DISTRIBUTION WIDTH (BEAKER) (test 17.4 % 11.6-14.4 fqie=019) PLATELET COUNT (BEAKER) (test vmzj=932) 77 K/CU MM 150-450 MEAN PLATELET VOLUME (BEAKER) (test wuke=939) 11.7 fL 9.4-12.4 NUCLEATED RED BLOOD CELLS (BEAKER) (test 0 /100 WBC 0-0 velt=544) NEUTROPHILS RELATIVE PERCENT (BEAKER) (test 65 % vxfp=187) LYMPHOCYTES RELATIVE PERCENT (BEAKER) (test 22 % ywwy=082) MONOCYTES RELATIVE PERCENT (BEAKER) (test 8 % opjn=512) EOSINOPHILS RELATIVE PERCENT (BEAKER) (test 4 % wljd=207) BASOPHILS RELATIVE PERCENT (BEAKER) (test 1 % zwqq=265) NEUTROPHILS ABSOLUTE COUNT (BEAKER) (test 3.52 K/ L 1.78-5.38 lgrr=822) LYMPHOCYTES ABSOLUTE COUNT (BEAKER) (test 1.19 K/ L 1.32-3.57 nabm=483) MONOCYTES ABSOLUTE COUNT (BEAKER) (test sdof=075) 0.43 K/ L 0.30-0.82 EOSINOPHILS ABSOLUTE COUNT (BEAKER) (test 0.24 K/ L 0.04-0.54 fjkq=762) BASOPHILS ABSOLUTE COUNT (BEAKER) (test vtdb=197) 0.03 K/ L 0.01-0.08 IMMATURE GRANULOCYTES-RELATIVE PERCENT (BEAKER) 1 % 0-1 (test mssc=0391) RAD, CHEST, 1 VIEW, NON [id number] 07:20:00Reason for exam:->r/o PNAShould this be performed at the bedside?->YesFINAL REPORT INDICATION: r/o PNA COMPARISON: None TECHNIQUE: Single frontal view of the chest. FINDINGS: Lungs and pleura: Clear lungs. No effusion.Heart and mediastinum: Normal heart size. Unremarkable mediastinal contours.Osseous structures: No acute abnormality.Other: None. IMPRESSION: No acute intrathoracic abnormality. Signed: JR Jaquez Robert MDReport Verified Date/Time: 09/15/2018 07:20:18 Reading Location: [facility] Radiology Reading Room [id number] 05:36:00 Test Item Value Reference Range Comments ALPHA-1 ANTITRYPSIN (BEAKER) (test blkf=986) 119.90 mg/dL 90.00-200.00 COMPREHENSIVE METABOLIC [id number] 05:30:00 Test Item Value Reference Range Comments TOTAL PROTEIN (BEAKER) 6.0 gm/dL 6.0-8.3 (test kebg=569) ALBUMIN (BEAKER) (test 2.0 g/dL 3.5-5.0 xaxh=7684) ALKALINE PHOSPHATASE 156 U/L 40-150 (BEAKER) (test oswg=138) BILIRUBIN TOTAL (BEAKER) 7.9 mg/dL 0.2-1.2 (test terj=453) SODIUM (BEAKER) (test 131 meq/L 136-145 aytb=229) POTASSIUM (BEAKER) (test 4.0 meq/L 3.5-5.1 pxvv=705) CHLORIDE (BEAKER) (test 103 meq/L 98-107 qogz=982) CO2 (BEAKER) (test 25 meq/L 22-29 ysxq=358) BLOOD UREA NITROGEN 8 mg/dL 7-21 (BEAKER) (test owbp=423) CREATININE (BEAKER) (test 0.57 mg/dL 0.57-1.25 mzed=393) GLUCOSE RANDOM (BEAKER) 102 mg/dL 70-105 (test oevu=952) CALCIUM (BEAKER) (test 7.5 mg/dL 8.4-10.2 csxt=099) AST (SGOT) (BEAKER) (test 119 U/L 5-34 qumu=659) ALT (SGPT) (BEAKER) (test 36 U/L 6-55 daup=905) EGFR (BEAKER) (test 150 mL/min/1.73 sq ESTIMATED GFR IS NOT noyq=1306) m ACCURATE CREATININE CLEARANCE IN PREDICTING GLOMERULAR FILTRATION RATE. ESTIMATED GFR IS NOT APPLICABLE FOR DIALYSIS PATIENTS. Specimen moderately [id number] 05:25:00 Test Item Value Reference Range Comments MAGNESIUM (BEAKER) (test obun=832) 1.5 mg/dL 1.6-2.6 PROTHROMBIN [id number] 05:22:00 Test Item Value Reference Range Comments PROTIME (BEAKER) (test dyue=067) 24.9 seconds 11.7-14.7 INR (BEAKER) (test ingq=573) 2.4 <=5.9 RECOMMENDED COUMADIN/WARFARIN INR THERAPY RANGESSTANDARD DOSE: 2.0 - 3.0 Includes: PROPHYLAXIS forvenous thrombosis, systemic embolization; TREATMENT for venous thrombosis and/or pulmonary embolus.HIGH RISK: Target INR is 2.5-3.5 for patients with mechanical heart valves.CBC W/PLT COUNT & AUTO [id number] 05:14:00 Test Item Value Reference Range Comments WHITE BLOOD CELL COUNT (BEAKER) (test wifx=575) 4.1 K/ L 3.5-10.5 RED BLOOD CELL COUNT (BEAKER) (test sxml=902) 2.60 M/ L 4.63-6.08 HEMOGLOBIN (BEAKER) (test wwtc=992) 9.6 GM/DL 13.7-17.5 HEMATOCRIT (BEAKER) (test vmru=335) 29.5 % 40.1-51.0 MEAN CORPUSCULAR VOLUME (BEAKER) (test udcf=522) 113.5 fL 79.0-92.2 MEAN CORPUSCULAR HEMOGLOBIN (BEAKER) (test 36.9 pg 25.7-32.2 cdrs=354) MEAN CORPUSCULAR HEMOGLOBIN CONC (BEAKER) (test 32.5 GM/DL 32.3-36.5 wfun=520) RED CELL DISTRIBUTION WIDTH (BEAKER) (test 17.5 % 11.6-14.4 cqpf=176) PLATELET COUNT (BEAKER) (test ibkt=059) 50 K/CU MM 150-450 MEAN PLATELET VOLUME (BEAKER) (test sqax=648) 10.9 fL 9.4-12.4 NUCLEATED RED BLOOD CELLS (BEAKER) (test 1 /100 WBC 0-0 fqfq=212) NEUTROPHILS RELATIVE PERCENT (BEAKER) (test 65 % beak=504) LYMPHOCYTES RELATIVE PERCENT (BEAKER) (test 21 % dklr=566) MONOCYTES RELATIVE PERCENT (BEAKER) (test 9 % znvm=194) EOSINOPHILS RELATIVE PERCENT (BEAKER) (test 4 % pmgo=847) BASOPHILS RELATIVE PERCENT (BEAKER) (test 1 % ytnq=695) NEUTROPHILS ABSOLUTE COUNT (BEAKER) (test 2.63 K/ L 1.78-5.38 jpym=536) LYMPHOCYTES ABSOLUTE COUNT (BEAKER) (test 0.85 K/ L 1.32-3.57 dksh=824) MONOCYTES ABSOLUTE COUNT (BEAKER) (test mlwb=057) 0.38 K/ L 0.30-0.82 EOSINOPHILS ABSOLUTE COUNT (BEAKER) (test 0.16 K/ L 0.04-0.54 zxmx=317) BASOPHILS ABSOLUTE COUNT (BEAKER) (test zgul=538) 0.03 K/ L 0.01-0.08 IMMATURE GRANULOCYTES-RELATIVE PERCENT (BEAKER) 1 % 0-1 (test abie=4137) HEPATITIS A ANTIBODY, [id number] 19:16:00 Test Item Value Reference Range Comments HEPATITIS A IGG ANTIBODY (BEAKER) (test rnli=2241) Reactive Nonreactive HEPATITIS B SURFACE [id number] 19:15:00 Test Item Value Reference Range Comments HEPATITIS B SURFACE ANTIBODY (BEAKER) (test < mIU/mL <8.0 cjuj=985) HEPATITIS B SURFACE [id number] 19:11:00 Test Item Value Reference Range Comments HEPATITIS B SURFACE ANTIGEN (2) (BEAKER) (test Nonreactive Nonreactive egpt=0346) HEPATITIS B CORE ANTIBODY, [id number] 19:11:00 Test Item Value Reference Range Comments HEPATITIS B CORE TOTAL ANTIBODY (BEAKER) (test Nonreactive Nonreactive phqz=747) IRON, TIBC, % SAT. (WITHOUT FERRITIN)2018-09-14 18:50:00 Test Item Value Reference Range Comments IRON (BEAKER) (test zmph=738) 82.0 ug/dL 40.0-160.0 TOTAL IRON BINDING CAPACITY (BEAKER) (test 80 ug/dL 250-450 iddm=263) IRON % SATURATION (2) (BEAKER) (test rzoa=8841) 103 % 20-55 PROTEIN, BODY [id number] 17:49:00 Test Item Value Reference Range Comments PROTEIN FLUID (BEAKER) (test pzas=616) 0.9 g/dL Absence of reference range indicates that normals have not been defined.Assay performance has not been validated for this type of specimen.U/S, [id number] 16:46:00Page hospitalist team 6 with ?s Reason [...] was used for local anesthesia. A 5 Korean needlecatheter system was advanced into the peritoneal space. 6000 cc cloudy yellow fluid was taken off. Patient tolerated the procedure well. Impression: Ultrasound guided paracentesis. Signed: Gregorio Lott MDReport Verified Date/ Time: 09/14/2018 16:46:50 Reading Location: [facility] B1 C013Y CT Body ReadingRoom BODY FLUID CELL COUNT WITH [id number] 16:28:00 Test Item Value Reference Range Comments APPEARANCE FLUID (BEAKER) (test tdir=108) Hazy Clear COLOR FLUID (BEAKER) (test gslm=651) Yellow Colorless, Straw RBC FLUID (BEAKER) (test retx=901) 2000 /cu mm <=1 ADJUSTED WBC FLUID (BEAKER) (test rccn=0269) 270 /cu mm <=5 LINING CELLS (BEAKER) (test fsjw=2448) 0 /cu mm <=1 NEUTROPHILS FLUID (BEAKER) (test slmm=2572) 41 % LYMPHS FLUID (BEAKER) (test tvmr=425) 30 % MONO/MACROPHAGE FLUID (BEAKER) (test fnsc=975) 29 % EOSINOPHILS FLUID (BEAKER) (test hvev=269) 0 % BASO FLUID (BEAKER) (test icoz=838) 0 % CONTAINER BODY FLUID (BEAKER) (test fivv=0473) EDTA Tube ALBUMIN, BODY [id number] 16:05:00 Test Item Value Reference Range Comments ALBUMIN FLUID (BEAKER) (test snro=951) 0.4 gm/dL Reference Range: No Normals Assay performance has not been validated for this type of specimen.U/S, ABDOMINAL, [id number] 09:28:00Reason for exam:-&gt ;abdominal painFINAL REPORT INDICATION: [...] moderate ascites.Patent main portal vein. Signed: Gregorio Lott MDReport Verified Date/Time: 09/14/2018 09:28:37 Reading Location: [facility] B1 C013Y CT Body Reading Room T4, [id number] 08:43:00 Test Item Value Reference Range Comments FREE T4 (BEAKER) (test mecn=512) 0.87 ng/dL 0.70-1.48 POCT-GLUCOSE [id number] 07:33:00 Test Item Value Reference Range Comments POC-GLUCOSE METER (BEAKER) 94 mg/dL 70-110 TESTED AT [facility] [address] (test hjxi=3828) [facility] [address] [id number] 06:26:00 Test Item Value Reference Range Comments THYROID STIMULATING HORMONE (BEAKER) (test 1.93 uIU/mL 0.35-4.94 blgw=479) BASIC METABOLIC [id number] 05:52:00 Test Item Value Reference Range Comments SODIUM (BEAKER) (test 130 meq/L 136-145 nudb=749) POTASSIUM (BEAKER) (test 5.1 meq/L 3.5-5.1 Specimen slightly uxds=355) hemolyzed CHLORIDE (BEAKER) (test 102 meq/L 98-107 zihh=500) CO2 (BEAKER) (test 25 meq/L 22-29 qxmz=955) BLOOD UREA NITROGEN 6 mg/dL 7-21 (BEAKER) (test xcjr=289) CREATININE (BEAKER) (test 0.57 mg/dL 0.57-1.25 Specimen slightly kajn=767) hemolyzed GLUCOSE RANDOM (BEAKER) 99 mg/dL 70-105 (test oljq=915) CALCIUM (BEAKER) (test 7.6 mg/dL 8.4-10.2 dlfc=216) EGFR (BEAKER) (test 150 mL/min/1.73 sq m ESTIMATED GFR IS NOT plcp=7099) ACCURATE CREATININE CLEARANCE IN PREDICTING GLOMERULAR FILTRATION RATE. ESTIMATED GFR IS NOT APPLICABLE FOR DIALYSIS PATIENTS. Specimen moderately ictericHEPATIC FUNCTION [id number] 05:52:00 Test Item Value Reference Range Comments TOTAL PROTEIN (BEAKER) (test 6.9 gm/dL 6.0-8.3 Specimen slightly hemolyzed nxwr=773) ALBUMIN (BEAKER) (test 1.9 g/dL 3.5-5.0 Specimen slightly hemolyzed fxtk=3050) BILIRUBIN TOTAL (BEAKER) (test 9.0 mg/dL 0.2-1.2 Specimen slightly hemolyzed esik=542) BILIRUBIN DIRECT (BEAKER) (test 5.1 mg/dL 0.1-0.5 Specimen slightly hemolyzed keoq=641) ALKALINE PHOSPHATASE (BEAKER) 174 U/L 40-150 (test gmqm=489) AST (SGOT) (BEAKER) (test 178 U/L 5-34 Specimen slightly hemolyzed tbbg=930) ALT (SGPT) (BEAKER) (test 48 U/L 6-55 Specimen slightly hemolyzed zwzp=214) Specimen moderately [id number] 05:43:00 Test Item Value Reference Range Comments ETHANOL (BEAKER) (test jwmi=664) < mg/dL <=10 PROTHROMBIN [id number] 05:10:00 Test Item Value Reference Range Comments PROTIME (BEAKER) (test cxgq=964) 22.1 seconds 11.7-14.7 INR (BEAKER) (test rdkl=440) 2.1 <=5.9 RECOMMENDED COUMADIN/WARFARIN INR THERAPY RANGESSTANDARD DOSE: 2.0 - 3.0 Includes: PROPHYLAXIS forvenous thrombosis, systemic embolization; TREATMENT for venous thrombosis and/or pulmonary embolus.HIGH RISK: Target INR is 2.5-3.5 for patients with mechanical heart valves.CBC W/PLT COUNT & AUTO [id number] 04:57:00 Test Item Value Reference Range Comments WHITE BLOOD CELL COUNT (BEAKER) (test zeai=055) 6.7 K/ L 3.5-10.5 RED BLOOD CELL COUNT (BEAKER) (test rsuo=907) 2.74 M/ L 4.63-6.08 HEMOGLOBIN (BEAKER) (test haoi=058) 10.1 GM/DL 13.7-17.5 HEMATOCRIT (BEAKER) (test tlnb=129) 30.0 % 40.1-51.0 MEAN CORPUSCULAR VOLUME (BEAKER) (test fxya=709) 109.5 fL 79.0-92.2 MEAN CORPUSCULAR HEMOGLOBIN (BEAKER) (test 36.9 pg 25.7-32.2 xlip=815) MEAN CORPUSCULAR HEMOGLOBIN CONC (BEAKER) (test 33.7 GM/DL 32.3-36.5 tunh=302) RED CELL DISTRIBUTION WIDTH (BEAKER) (test 17.8 % 11.6-14.4 rcvo=823) PLATELET COUNT (BEAKER) (test tmez=007) 83 K/CU MM 150-450 MEAN PLATELET VOLUME (BEAKER) (test uerc=226) 10.4 fL 9.4-12.4 NUCLEATED RED BLOOD CELLS (BEAKER) (test 0 /100 WBC 0-0 tvzx=252) NEUTROPHILS RELATIVE PERCENT (BEAKER) (test 75 % dtgf=151) LYMPHOCYTES RELATIVE PERCENT (BEAKER) (test 14 % gbqo=862) MONOCYTES RELATIVE PERCENT (BEAKER) (test 7 % vpjs=899) EOSINOPHILS RELATIVE PERCENT (BEAKER) (test 2 % piwa=464) BASOPHILS RELATIVE PERCENT (BEAKER) (test 1 % jeew=773) NEUTROPHILS ABSOLUTE COUNT (BEAKER) (test 4.98 K/ L 1.78-5.38 fytl=387) LYMPHOCYTES ABSOLUTE COUNT (BEAKER) (test 0.93 K/ L 1.32-3.57 nkxk=837) MONOCYTES ABSOLUTE COUNT (BEAKER) (test dlkx=051) 0.49 K/ L 0.30-0.82 EOSINOPHILS ABSOLUTE COUNT (BEAKER) (test 0.16 K/ L 0.04-0.54 kpfv=771) BASOPHILS ABSOLUTE COUNT (BEAKER) (test jbys=026) 0.06 K/ L 0.01-0.08 IMMATURE GRANULOCYTES-RELATIVE PERCENT (BEAKER) 1 % 0-1 (test jfvh=6807) PROTHROMBIN [id number] 01:38:00 Test Item Value Reference Range Comments PROTIME (BEAKER) (test mgsg=515) 21.1 seconds 11.7-14.7 INR (BEAKER) (test tewf=841) 1.9 <=5.9 RECOMMENDED COUMADIN/WARFARIN INR THERAPY RANGESSTANDARD DOSE: 2.0 - 3.0 Includes: PROPHYLAXIS forvenous thrombosis, systemic embolization; TREATMENT for venous thrombosis and/or pulmonary embolus.HIGH RISK: Target INR is 2.5-3.5 for patients with mechanical heart valves.BASIC METABOLIC [id number] 01:37: 00 Test Item Value Reference Range Comments SODIUM (BEAKER) (test 130 meq/L 136-145 ejqo=449) POTASSIUM (BEAKER) (test 4.6 meq/L 3.5-5.1 Specimen moderately fbwv=642) hemolyzed CHLORIDE (BEAKER) (test 100 meq/L 98-107 fxrj=479) CO2 (BEAKER) (test 21 meq/L 22-29 mctt=193) BLOOD UREA NITROGEN 6 mg/dL 7-21 (BEAKER) (test ekmd=166) CREATININE (BEAKER) (test 0.61 mg/dL 0.57-1.25 Specimen moderately xhkh=028) hemolyzed GLUCOSE RANDOM (BEAKER) 100 mg/dL 70-105 (test gtnl=241) CALCIUM (BEAKER) (test 7.8 mg/dL 8.4-10.2 kpen=547) EGFR (BEAKER) (test 139 mL/min/1.73 sq m ESTIMATED GFR IS NOT vktz=0310) ACCURATE CREATININE CLEARANCE IN PREDICTING GLOMERULAR FILTRATION RATE. ESTIMATED GFR IS NOT APPLICABLE FOR DIALYSIS PATIENTS. Specimen moderately [id number] 01:36:00 Test Item Value Reference Range Comments MAGNESIUM (BEAKER) (test 1.9 mg/dL 1.6-2.6 Specimen moderately hemolyzed xrbu=061) HEPATIC FUNCTION [id number] 01:36:00 Test Item Value Reference Range Comments TOTAL PROTEIN (BEAKER) (test 8.0 gm/dL 6.0-8.3 Specimen moderately hemolyzed kmcy=366) ALBUMIN (BEAKER) (test 2.2 g/dL 3.5-5.0 Specimen moderately hemolyzed owzf=3084) BILIRUBIN TOTAL (BEAKER) (test 9.0 mg/dL 0.2-1.2 Specimen moderately hemolyzed laqb=100) BILIRUBIN DIRECT (BEAKER) 4.9 mg/dL 0.1-0.5 Specimen moderately hemolyzed (test vroq=605) ALKALINE PHOSPHATASE (BEAKER) 204 U/L 40-150 (test kebn=832) AST (SGOT) (BEAKER) (test 193 U/L 5-34 Specimen moderately hemolyzed tcft=340) ALT (SGPT) (BEAKER) (test 51 U/L 6-55 Specimen moderately lprd=910) hemolyzed Specimen moderately ictericCBC W/PLT COUNT & AUTO [id number] 01: 21:00 Test Item Value Reference Range Comments WHITE BLOOD CELL COUNT (BEAKER) (test xgvq=910) 6.7 K/ L 3.5-10.5 RED BLOOD CELL COUNT (BEAKER) (test jnss=312) 2.97 M/ L 4.63-6.08 HEMOGLOBIN (BEAKER) (test kjdj=717) 11.1 GM/DL 13.7-17.5 HEMATOCRIT (BEAKER) (test qemb=529) 31.9 % 40.1-51.0 MEAN CORPUSCULAR VOLUME (BEAKER) (test roog=353) 107.4 fL 79.0-92.2 MEAN CORPUSCULAR HEMOGLOBIN (BEAKER) (test 37.4 pg 25.7-32.2 yapi=735) MEAN CORPUSCULAR HEMOGLOBIN CONC (BEAKER) (test 34.8 GM/DL 32.3-36.5 voah=604) RED CELL DISTRIBUTION WIDTH (BEAKER) (test 17.8 % 11.6-14.4 cvxj=372) PLATELET COUNT (BEAKER) (test wvtk=338) 101 K/CU MM 150-450 MEAN PLATELET VOLUME (BEAKER) (test jqgp=904) 10.9 fL 9.4-12.4 NUCLEATED RED BLOOD CELLS (BEAKER) (test 0 /100 WBC 0-0 pxls=718) NEUTROPHILS RELATIVE PERCENT (BEAKER) (test 81 % gkzc=097) LYMPHOCYTES RELATIVE PERCENT (BEAKER) (test 9 % kazh=490) MONOCYTES RELATIVE PERCENT (BEAKER) (test 8 % oqke=533) EOSINOPHILS RELATIVE PERCENT (BEAKER) (test 1 % agun=134) BASOPHILS RELATIVE PERCENT (BEAKER) (test 1 % gxdc=149) NEUTROPHILS ABSOLUTE COUNT (BEAKER) (test 5.37 K/ L 1.78-5.38 xypj=206) LYMPHOCYTES ABSOLUTE COUNT (BEAKER) (test 0.60 K/ L 1.32-3.57 ncvk=410) MONOCYTES ABSOLUTE COUNT (BEAKER) (test 0.55 K/ L 0.30-0.82 bqgd=365) EOSINOPHILS ABSOLUTE COUNT (BEAKER) (test 0.04 K/ L 0.04-0.54 ryxk=557) BASOPHILS ABSOLUTE COUNT (BEAKER) (test 0.07 K/ L 0.01-0.08 ciqi=245) IMMATURE GRANULOCYTES-RELATIVE PERCENT (BEAKER) 1 % 0-1 (test baim=9012)
[2018-12-11] MEDS ORDERED: ACETAMINOPHEN 325 MG TABLET ONE (13:28)
[2018-12-11] MEDS ORDERED: CEFEPIME 1 GM/100 ML BAG IV ONE (13:29)
[2018-12-11] MEDS ORDERED: NA CHLORIDE 0.9% 1,000 ML ONE (13:29)
--- NOTE | 2018-12-11 13:43 | EKG ---
Test Date: 2018-12-11 Test Time: 13:39:21 [employer]ging [employer] Lever Tender: WISAM MEASUREMENT RESULTS: Intervals: Rate: 82 SD: 144 QRSD: 98 QT: 394 QTc: 460 [place]: P: 17 SD: 144 QRS: 23 T: 47 INTERPRETIVE STATEMENTS: Normal sinus rhythm Normal ECG Compared to ECG 10/27/2012 12:58:31 Sinus bradycardia no longer present Electronically Signed On 12-11-18 13:43:02 CDT by Xavier Marina
--- NOTE | 2018-12-11 13:59 | RAD REPORT ---
EXAM DESCRIPTION: Lester Single View12/11/2018 1:44 pm CLINICAL HISTORY: Cough COMPARISON: August 2018 FINDINGS: The lungs appear clear of acute infiltrate. The heart is normal size IMPRESSION: No acute abnormalities displayed
[2018-12-11 14:02] LABS: Basophils % 0.1 % (0-1.3); Hematocrit 19.4 % (39.6-49.0); Lymphocytes % 7.7 % (15.3-44.8); MPV 9.5 fL (7.6-11.3); RBC Red Blood Cell Count 1.73 M/uL (4.33-5.43)
[2018-12-11 14:08] LABS: Protime INR 2.42
[2018-12-11] MEDS ORDERED: PANTOPRAZOLE 40 MG INJ ONE (14:35)
[2018-12-11] MEDS ORDERED: VITAMIN K (ADULT) 10 MG/ML ONE (14:35)
[2018-12-11 14:38] LABS: Albumin 1.9 g/dL (3.4-5.0); Bilirubin Direct 3.7 mg/dL (0-0.2); Potassium 4.2 mmol/L (3.5-5.1); Protein, Total 7.3 g/dL (6.4-8.2); Troponin (Emerg Dept Use Only) 0.02 ng/mL (0.0-0.045)
[2018-12-11] MEDS ORDERED: PANTOPRAZOLE INJ 80 MG in NA CHLORIDE 0.9% 250 ML IV SCH (15:00)
--- NOTE | 2018-12-11 15:14 | ER ---
Nurse's Notes [facility] Name: Chrissie Parada Jr Age: 53 yrs Sex: Male : 1965 Arrival Date: 12/11/2018 Time: 12:16 Bed 18 Private MD: Jm Savage V Diagnosis: Anemia, unspecified;Unspecified cirrhosis of liver;Fever, unspecified;Weakness;Ascites;Esophageal varices without bleeding Presentation: 12/11 12:21 Presenting complaint: sister states for the last couple days he has been becoming la1 increasingly confused and I think his ammonia is high. Transition of care: patient was not received from another setting of care. Onset of symptoms was December 11, 2018. Risk Assessment: Do you want to hurt yourself or someone else? Patient reports no desire to harm self or others. Initial Sepsis Screen: Does the patient meet any 2 criteria? No. Patient's initial sepsis screen is negative. Does the patient have a suspected source of infection? No. Patient's initial sepsis screen is negative. Care prior to arrival: None. 12:21 Method Of Arrival: Wheelchair la1 12:21 Acuity: WENDY 3 la1 Historical: - Allergies: 12:22 No Known Allergies; la1 - Home Meds: 16:05 folic acid 1 mg Oral tab 1 tab once daily [Active]; lactulose 20 gram/30 mL Oral soln em 30 mL 3 times per day [Active]; omeprazole 40 mg Oral cpDR 1 cap once daily [Active]; propranolol 20 mg Oral tab 1 tab every 12 hours [Active]; spironolactone 100 mg Oral tab 1 tab once daily [Active]; - PMHx: 12:22 Arthritis; Cirrhosis; esophageal varices; GERD; la1 - Immunization history:: Adult Immunizations up to date. - Social history:: Smoking status: Patient/guardian denies using tobacco. - Ebola Screening: : No symptoms or risks identified at this time. Screenin:00 Abuse screen: Denies threats or abuse. Nutritional screening: No deficits noted. em Tuberculosis screening: No symptoms or risk factors identified. Fall Risk None identified. Assessment: 13:00 General: Appears in no apparent distress. comfortable, Behavior is calm, cooperative, em Reports fatigue for 1-2 days. Pain: Denies pain. Neuro: Level of Consciousness is awake, alert, obeys commands, Oriented to person, place, situation, Moves all extremities. Cardiovascular: Capillary refill < 3 seconds Patient's skin is warm and dry. Edema is 2+ to left ankle, left foot, right ankle and right foot Chest pain is denied. Respiratory: Airway is patent Respiratory effort is even, unlabored, Respiratory pattern is regular, symmetrical, Breath sounds are clear bilaterally. GI: Abdomen is round distended, Bowel sounds present X 4 quads. Reports nausea, vomiting. Derm: Skin is intact, is healthy with good turgor, Skin is pink, warm \T\ dry. Musculoskeletal: Capillary refill < 3 seconds, Range of motion: intact in all extremities. 13:04 General: Previous assessment is accurate, call light remains within reach. . ss 14:20 Reassessment: Patient appears in no apparent distress at this time. Patient and/or em family updated on plan of care and expected duration. Pain level reassessed. Patient is alert, oriented x 3, equal unlabored respirations, skin warm/dry/pink. 15:33 Reassessment: Patient appears in no apparent distress at this time. Patient and/or em family updated on plan of care and expected duration. Pain level reassessed. Patient is alert, oriented x 3, equal unlabored respirations, skin warm/dry/pink. family at bedside. 16:35 Reassessment: Patient appears in no apparent distress at this time. report given to tracy Arguello RN at [facility], pending completion of FFP, will call transportation after initiation of RBC. 17:39 Reassessment: Patient appears in no apparent distress at this time. Patient and/or em family updated on plan of care and expected duration. Pain level reassessed. Patient is alert, oriented x 3, equal unlabored respirations, skin warm/dry/pink. Patient denies pain at this time. 18:15 Reassessment: Patient appears in no apparent distress at this time. Patient and/or em family updated on plan of care and expected duration. Pain level reassessed. Patient is alert, oriented x 3, equal unlabored respirations, skin warm/dry/pink. RBC transfusion started, pending EMS for transportation Patient denies pain at this time. Patient states feeling better. 19:04 Reassessment: Patient appears in no apparent distress at this time. Patient and/or em family updated on plan of care and expected duration. Pain level reassessed. Patient is alert, oriented x 3, equal unlabored respirations, skin warm/dry/pink. report given to EMS, transferred to [facility] with blood products Patient denies pain at this time. Patient states feeling better. Patient states symptoms have improved. Vital Signs: 12:22 BP 125 / 52; Pulse 87; Resp 16; Temp 100.2; Pulse Ox 98% on R/A; Weight 100.7 kg; la1 13:09 BP 114 / 48; Pulse 88; Resp 18; Temp 102.2(O); Pulse Ox 100% on R/A; em 14:24 BP 113 / 58; Pulse 86; Resp 16; Pulse Ox 97% on R/A; Pain 0/10; em 15:24 BP 111 / 49; Pulse 87; Resp 20; Temp 102.3(O); Pulse Ox 100% on R/A; Pain 0/10; la1 16:47 BP 101 / 57; Pulse 80; Resp 18; Pulse Ox 97% on R/A; em 17:00 em 18:00 em 19:00 em 17:00 see blood transfusion sheet em 18:00 see blood transfusion sheet em 19:00 see blood transfusion sheet em ED Course: 12:16 Patient arrived in ED. dl4 12:17 Jm Savage MD is Private Physician. dl4 12:22 Triage completed. la1 12:23 Arm band placed on left wrist. la1 12:36 John Oakes LVN is Primary Nurse. em 13:00 Patient has correct armband on for positive identification. Bed in low position. Call em light in reach. Pulse ox on. NIBP on. 13:03 Víctor Samuel MD is Attending Physician. shilpa 13:45 Missed attempt(s): 22 gauge in right antecubital area. Bleeding controlled, band aid em applied, catheter tip intact. 13:54 XRAY Chest (1 view) In Process Unspecified. EDMS 14:10 Inserted saline lock: 24 gauge in right upper arm, using aseptic technique. em 14:23 Notified ED physician of a critical lab result(s). HGB 6.6 \T\ HCT 19.4. em 14:24 Urine Culture Sent. lt1 15:00 Accessed peripheral vein via ultrasound, utilizing dynamic ultrasound technique using la1 18G Sureflo IV catheter ,sterile technique, per hospital protocol. Clean \T\ dry. Dressing intact. Good blood return. Flushes easily. inserted by SOFÍA Rodriguez. 15:12 Ildefonso Ramirez MD is Hospitalizing Provider. shilpa 19:11 No provider procedures requiring assistance completed. Patient transferred, IV remains em in place. Administered Medications: 13:45 Drug: Tylenol 650 mg Route: PO; em 15:22 Follow up: Response: No adverse reaction; Temperature is unchanged la1 14:12 Drug: Cefepime 1 grams Route: IVPB; Rate: 200 ml/hr; Infused Over: 30 mins; Site: right em upper arm; 15:23 Follow up: Response: No adverse reaction; IV Status: Completed infusion; IV Intake: la1 100ml 14:13 Drug: NS 0.9% 1000 ml Route: IV; Rate: 125 ml/hr; Site: right upper arm; em 19:09 Follow up: IV Status: Infusion continued upon transfer; IV Intake: 600ml em 15:07 Drug: ProTONIX 80 mg Route: IVP; Site: left antecubital; la1 15:40 Follow up: Response: No adverse reaction em 15:10 Drug: Vitamin K1 10 mg Route: Sub-Q; Site: left lower abdomen; em 15:40 Follow up: Response: No adverse reaction em 15:22 Drug: ProTONIX 8 mg/hr Route: IV; Rate: 25 ml/hr; Site: right antecubital; la1 19:09 Follow up: IV Status: Infusion continued upon transfer; IV Intake: 100ml em 15:23 Drug: Motrin 600 mg Route: PO; la1 16:57 Follow up: Response: No adverse reaction; Temperature is decreased em 19:05 Not Given (Physician Discretion): vancoMYCIN 1 grams IVPB once over 2 hrs em Intake: 15:23 IV: 100ml; Total: 100ml. la1 19:09 IV: 100ml; Total: 200ml. em 19:09 IV: 600ml; Total: 800ml. em Outcome: 15:13 Decision to Hospitalize by Provider. shilpa 15:33 ER care complete, transfer ordered by . shilpa 19:11 Transferred by ground EMS to [facility], Transfer form completed. em X-rays sent w/ patient. 19:11 Condition: good 19:11 Instructed on the need for transfer, Demonstrated understanding of instructions. 19:12 Patient left the ED. em Signatures: Dispatcher [employer] Víctor Mckenzie MD MD cha Munoz, Edgar, STRICKLER ATTENDANT STRICKLER ATTENDANT Sonia Boyer RN RN ss Michael Chu RN RN la1 Douglas Mcgill dl4 Rocio Lozano [facility]
--- NOTE | 2018-12-11 15:15 | EDPHYS ---
Physician Documentation [facility] Name: Chrissie Parada Jr Age: 53 yrs Sex: Male : 1965 Arrival Date: 12/11/2018 Time: 12:16 Bed 18 Private MD: Jm Savage V ED Physician Víctor Samuel HPI: 12/11 15:06 This 53 yrs old Male presents to ER via Wheelchair with complaints of shilpa Weakness, Nausea/Vomiting. Historical: - Allergies: 12:22 No Known Allergies; la1 - Home Meds: 16:05 folic acid 1 mg Oral tab 1 tab once daily [Active]; lactulose 20 gram/30 mL Oral soln em 30 mL 3 times per day [Active]; omeprazole 40 mg Oral cpDR 1 cap once daily [Active]; propranolol 20 mg Oral tab 1 tab every 12 hours [Active]; spironolactone 100 mg Oral tab 1 tab once daily [Active]; - PMHx: 12:22 Arthritis; Cirrhosis; esophageal varices; GERD; la1 - Immunization history:: Adult Immunizations up to date. - Social history:: Smoking status: Patient/guardian denies using tobacco. - Ebola Screening: : No symptoms or risks identified at this time. ROS: 15:07 Constitutional: Negative for fever, chills, and weight loss, Eyes: Negative for injury, shilpa pain, redness, and discharge, ENT: Negative for injury, pain, and discharge, Neck: Negative for injury, pain, and swelling, Cardiovascular: Negative for chest pain, palpitations, and edema, Back: Negative for injury and pain, : Negative for injury, bleeding, discharge, and swelling, MS/Extremity: Negative for injury and deformity, Psych: Negative for depression, anxiety, suicide ideation, homicidal ideation, and hallucinations, Allergy/Immunology: Negative for hives, rash, and allergies, Endocrine: Negative for neck swelling, polydipsia, polyuria, polyphagia, and marked weight changes, Hematologic/Lymphatic: Negative for swollen nodes, abnormal bleeding, and unusual bruising. 15:07 Respiratory: Positive for cough. 15:07 Abdomen/GI: Positive for abdominal distension. 15:07 Skin: Positive for pallor. Exam: 15:07 Head/Face: Normocephalic, atraumatic. Eyes: Pupils equal round and reactive to light, shilpa extra-ocular motions intact. Lids and lashes normal. Conjunctiva and sclera are non-icteric and not injected. Cornea within normal limits. Periorbital areas with no swelling, redness, or edema. ENT: Nares patent. No nasal discharge, no septal abnormalities noted. Tympanic membranes are normal and external auditory canals are clear. Oropharynx with no redness, swelling, or masses, exudates, or evidence of obstruction, uvula midline. Mucous membranes moist. Neck: Trachea midline, no thyromegaly or masses palpated, and no cervical lymphadenopathy. Supple, full range of motion without nuchal rigidity, or vertebral point tenderness. No Meningismus. Chest/axilla: Normal chest wall appearance and motion. Nontender with no deformity. No lesions are appreciated. Cardiovascular: Regular rate and rhythm with a normal S1 and S2. No gallops, murmurs, or rubs. Normal PMI, no JVD. No pulse deficits. Respiratory: Lungs have equal breath sounds bilaterally, clear to auscultation and percussion. No rales, rhonchi or wheezes noted. No increased work of breathing, no retractions or nasal flaring. Back: No spinal tenderness. No costovertebral tenderness. Full range of motion. Male : Normal genitalia with no discharge or lesions. Neuro: Awake and alert, GCS 15, oriented to person, place, time, and situation. Cranial nerves II-XII grossly intact. Motor strength 5/5 in all extremities. Sensory grossly intact. Cerebellar exam normal. Normal gait. Psych: Awake, alert, with orientation to person, place and time. Behavior, mood, and affect are within normal limits. 15:07 Constitutional: The patient appears febrile. 15:07 Abdomen/GI: Inspection: distension, Bowel sounds: normal, Rectal exam: is unremarkable, Stool: guaiac negative, hemorrhoid(s), are not appreciated, Liver: no appreciated palpable abnormalities, Hernia: not appreciated. 15:10 Neck: ROM/movement: is normal, no acute changes, Meningeal signs: are not present, shilpa Kernig's sign is negative, Brudzinski's sign is negative, nuchal rigidity, is not appreciated. Vital Signs: 12:22 BP 125 / 52; Pulse 87; Resp 16; Temp 100.2; Pulse Ox 98% on R/A; Weight 100.7 kg; la1 13:09 BP 114 / 48; Pulse 88; Resp 18; Temp 102.2(O); Pulse Ox 100% on R/A; em 14:24 BP 113 / 58; Pulse 86; Resp 16; Pulse Ox 97% on R/A; Pain 0/10; em 15:24 BP 111 / 49; Pulse 87; Resp 20; Temp 102.3(O); Pulse Ox 100% on R/A; Pain 0/10; la1 16:47 BP 101 / 57; Pulse 80; Resp 18; Pulse Ox 97% on R/A; em 17:00 em 18:00 em 19:00 em 17:00 see blood transfusion sheet em 18:00 see blood transfusion sheet em 19:00 see blood transfusion sheet em MDM: 13:03 Patient medically screened. [facility] 15:09 Data reviewed: vital signs, nurses notes, lab test result(s), EKG, radiologic studies, shilpa plain films. 12/11 13:22 Order name: Basic Metabolic Panel; Complete Time: 15:09 [facility] 12/11 13:22 Order name: CBC with Diff [facility] 12/11 13:22 Order name: LFT's; Complete Time: 15:09 [facility] 12/11 13:22 Order name: Magnesium; Complete Time: 15:09 [facility] 12/11 13:22 Order name: NT PRO-BNP; Complete Time: 15:09 [facility] 12/11 13:22 Order name: PT-INR; Complete Time: 15:09 [facility] 12/11 13:22 Order name: Troponin (emerg Dept Use Only); Complete Time: 15:09 [facility] 12/11 13:22 Order name: Procalcitonin; Complete Time: 15:09 [facility] 12/11 13:22 Order name: Lactate; Complete Time: 15:09 [facility] 12/11 13:22 Order name: Blood Culture Adult (2) [facility] 12/11 13:22 Order name: AMMONIA; Complete Time: 15:09 [facility] 12/11 13:22 Order name: Urine Culture [facility] 12/11 13:22 Order name: Lipase; Complete Time: 15:09 [facility] 12/11 14:28 Order name: Type And Screen [facility] 12/11 13:22 Order name: XRAY Chest (1 view); Complete Time: 15:09 [facility] 12/11 14:41 Order name: Urine Dipstick--Ancillary (enter results) 3 12/11 14:51 Order name: Packed RBC Leukored [facility] 12/11 15:44 Order name: ABO/RH no charge; Complete Time: 15:49 [facility] 12/11 15:45 Order name: Fresh Frozen Plasma [facility] 12/11 17:31 Order name: CBC Smear Scan [facility] 12/11 13:22 Order name: EKG; Complete Time: 13:24 [facility] 12/11 13:22 Order name: Cardiac monitoring; Complete Time: 13:24 [facility] 12/11 13:22 Order name: EKG - Nurse/Tech; Complete Time: 13:24 [facility] 12/11 13:22 Order name: IV Saline Lock; Complete Time: 13:51 [facility] 12/11 13:22 Order name: Labs collected and sent; Complete Time: 13:51 [facility] 12/11 13:22 Order name: O2 Per Protocol; Complete Time: 13:24 [facility] 12/11 13:22 Order name: O2 Sat Monitoring; Complete Time: 13:24 [facility] 12/11 13:22 Order name: Urine Dipstick-Ancillary (obtain specimen); Complete Time: 14:13 [facility] 12/11 14:28 Order name: Transfuse; Complete Time: 16:56 [facility] Administered Medications: 13:45 Drug: Tylenol 650 mg Route: PO; em 15:22 Follow up: Response: No adverse reaction; Temperature is unchanged la1 14:12 Drug: Cefepime 1 grams Route: IVPB; Rate: 200 ml/hr; Infused Over: 30 mins; Site: right em upper arm; 15:23 Follow up: Response: No adverse reaction; IV Status: Completed infusion; IV Intake: la1 100ml 14:13 Drug: NS 0.9% 1000 ml Route: IV; Rate: 125 ml/hr; Site: right upper arm; em 19:09 Follow up: IV Status: Infusion continued upon transfer; IV Intake: 600ml em 15:07 Drug: ProTONIX 80 mg Route: IVP; Site: left antecubital; la1 15:40 Follow up: Response: No adverse reaction em 15:10 Drug: Vitamin K1 10 mg Route: Sub-Q; Site: left lower abdomen; em 15:40 Follow up: Response: No adverse reaction em 15:22 Drug: ProTONIX 8 mg/hr Route: IV; Rate: 25 ml/hr; Site: right antecubital; la1 19:09 Follow up: IV Status: Infusion continued upon transfer; IV Intake: 100ml em 15:23 Drug: Motrin 600 mg Route: PO; la1 16:57 Follow up: Response: No adverse reaction; Temperature is decreased em 19:05 Not Given (Physician Discretion): vancoMYCIN 1 grams IVPB once over 2 hrs em Disposition: 12/11/18 15:[address] [facility]. Diagnosis are Anemia, unspecified, Unspecified cirrhosis of liver, Fever, unspecified, Weakness, Ascites, Esophageal varices without bleeding. - Reason for transfer: Higher level of care. - Accepting physician is to [facility], liver team. - Condition is Fair. - Problem is new. - Symptoms have improved. Signatures: Dispatcher [employer] Víctor Mckenzie MD MD cha Munoz, Edgar, COURT LIAISON COURT LIAISON Michael Castillo RN RN la1 Corrections: (The following items were deleted from the chart) 15:29 15:13 Hospitalization Ordered by Ildefonso Ramirez MD for Inpatient Admission. Preliminary shilpa diagnosis is Fever, unspecified; Ascites; Anemia, unspecified; Unspecified kidney failure; Unspecified cirrhosis of liver. Bed requested for Telemetry/MedSurg (Inpatient). Status is Inpatient Admission. Condition is Fair. Problem is new. Symptoms have improved. UTI on Admission? No. shilpa 15:35 15:33 12/11/2018 15:[address] [facility]. Diagnosis is shilpa Anemia, unspecified; Unspecified cirrhosis of liver; Fever, unspecified; Weakness. Reason for transfer: Higher level of care. Accepting physician is to [facility], liver team. Condition is Fair. Problem is new. Symptoms have improved. shilpa 19:12 15:35 12/11/2018 15:[address] [facility]. Diagnosis is em Anemia, unspecified; Unspecified cirrhosis of liver; Fever, unspecified; Weakness; Ascites; Esophageal varices without bleeding. Reason for transfer: Higher level of care. Accepting physician is to [facility], liver team. Condition is Fair. Problem is new. Symptoms have improved. shilpa
[2018-12-11] MEDS ORDERED: IBUPROFEN 400 MG TAB ONE (15:16)
[2018-12-11] MEDS ORDERED: IBUPROFEN 200 MG TAB PO ONE (15:16)
[2018-12-11] MEDS ORDERED: VANCOMYCIN 1.75 GM in NA CHLORIDE 0.9% 500 ML IVPB ONE ×2 (16:00→18:00)
[2018-12-11] MEDS ORDERED: NA CHLORIDE 0.9% 250 ML ONE ×2 (16:44→18:05)
[2018-12-11 17:20] LABS: Urine Blood NEGATIVE (NEG); Urine Glucose NEGATIVE (NEG); Urine Protein NEGATIVE (NEG); Urine Specific Gravity 1.015 (1.005-1.030); Urine pH 5.5 (5.0-7.0)
[2018-12-11 17:30] LABS: Anisocytosis 1+; Blood Morphology Comment NOTED (NOT SEEN); Macrocytosis 2+; Platelet Estimate DECR; Urine White Blood Cell Casts OK
[2018-12-11 17:31] LABS: Hypochromasia 1+; Rouleau NOTED
[2018-12-11 23:13] VITALS: TEMP 102.3
[2018-12-11 23:22] VITALS: BP 101/57; O2SAT 97
== END 2018-12-11 19:12 | disposition short-term general hospital (02) ==
LOC: ER 12:14
DX: R50.9 Fever, unspecified (principal); K74.60 Unspecified cirrhosis of liver; R18.8 Other ascites; I85.00 Esophageal varices without bleeding; D64.9 Anemia, unspecified; R53.83 Other fatigue; K21.9 Gastro-esophageal reflux disease without esophagitis
CPT/HCPCS: 93005; 87040 ×2; 87088; 85025; 87086; 80048; 36415; 82140; 86900; 83735; 86850; 87205 ×4; 85610; 86901; 80076; 83605; 81003; 84484; 83690; 84145; 83880; 71045; 96372; 99285; J3430; C9113 ×2; J0692; P9016; P9059; J7030; 96365; 96366; 96367

== ENCOUNTER 2019-03-10 10:13 | Emergency (ER) | payer OTHER ==
--- OUTSIDE RECORDS SUMMARY | 2019-03-10 10:20 | XMS REPORT | Summary of Care ---
:1965 Author Organization [facility] [place] [address] Care Team Providers Name Role Phone Unavailable Primary Care Provider Unavailable Reason for Visit Reason Comments Hospital Follow-up pt states for the past 2 weeks he has developed a rash on his both ankles, left shoulder, thighs, back and abdomen, he tried bacitracin and it did not work and it has become really itchy. He also is light headed and he is cold as well. Encounter Details Date Type Department Care Team Description 01/04/2019 Office Visit [facility] Follow-up Medicine Infectious MD Sneha, PhD (pt states for the Disease [address] past 2 weeks he has [address] developed a rash on [address]; [address] [place] [address] his both ankles, left [place], [place] [phone] shoulder, thighs, [phone] back and abdomen, he [phone] tried bacitracin and it did not work and it has become really itchy. He also is light headed and he is cold as well. ) Allergies No Known Allergiesdocumented as of this encounter (statuses as of 01/04/2019) Medications Medication Sig Dispensed Refills Start Date End Date Status lactulose (CHRONULAC) Take 20 g by 0 11/26/2018 Active 10 GM/15ML solution mouth 3 times daily. spironolactone Take 75 mg by 0 11/24/2018 Active (ALDACTONE) 100 MG mouth daily. tablet furosemide (LASIX) 40 Take 40 mg by 0 11/24/2018 Active MG tablet mouth daily. torsemide (DEMADEX) 10 Take 10 mg by 0 12/23/2018 Active MG tablet mouth daily. folic acid (FOLVITE) 1 Take 1 mg by 0 09/17/2018 09/17/2019 Active MG tablet mouth. propranolol (INDERAL) Take 20 mg by 0 11/12/2018 Active 20 MG tablet mouth two times daily. omeprazole (PRILOSEC) Take 40 mg by 0 11/24/2018 Active 40 MG capsule mouth daily. Multiple Take 1 Tab by 0 Active Vitamins-Minerals mouth every (CENTRUM ADULTS OR) morning. ceFAZolin Sodium 2 Inject 2 g into 0 Active GM/20ML SOSY the vein every 8 hours. documented as of this encounter (statuses as of 01/04/2019) Active Problems Not on filedocumented as of this encounter (statuses as of 01/04/2019) Immunizations Name Administration Dates Next Due Pneumococcal 13-valent Conjugate Vaccine 01/04/2019 documented as of this encounter Social History Tobacco Use Types Packs/Day Years Used Date Never Smoker Smokeless Tobacco: Never Used Alcohol Use Drinks/Week oz/Week Comments Never Alcohol Habits Answer Date Recorded How often do you have a drink containing alcohol? Never 01/04/2019 How many drinks containing alcohol do you have on a typical Not asked day when you are drinking? How often do you have six or more drinks on one occasion? Not asked Sex Assigned at Date Recorded Not on file Job Start Date Occupation Industry Not on file Not on file Not on file Travel History Travel Start Travel End No recent travel history available. documented as of this encounter Last Filed Vital Signs Vital Sign Reading Time Taken Comments Blood Pressure 99/62 01/04/2019 10:14 AM CDT Pulse 61 01/04/2019 10:14 AM CDT Temperature 36.6 C (97.9 F) 01/04/2019 10:14 AM CDT Respiratory Rate 16 01/04/2019 10:14 AM CDT Oxygen Saturation 98% 01/04/2019 10:14 AM CDT Inhaled Oxygen Concentration - - Weight 102.8 kg (226 lb 9.6 oz) 01/04/2019 10:14 AM CDT Height 170.2 cm (5' 7") 01/04/2019 10:14 AM CDT Body Mass Index 35.49 01/04/2019 10:14 AM CDT documented in this encounter Patient Instructions Patient InstructionsSneha Hilliard MD, PhD - 01/04/2019 10:00 AM CDTThank you choosing the Infectious Diseases clinic at [facility]. Please let us know what we can do better by providing comments on the survey you will receive. We value your feedback! Here are some helpful general instructions: 1. If you have not already done so, we encourage you to sign up for [employer] as it is a very efficient way to contact the Infectious Diseases team for non- emergent questions / requests. 2. Labs and X-rays can be performed / scheduled in our clinic on the 8th floor. Results will be provided to you either through Chat [employer] or a personal communication (letter or phone call) from the Infectious Diseases team. 3. For medication refills, please contact your pharmacy one week before you run out of medications. 4. Please go to the front end software developer on your way out today to schedule your next appointment 5. If you have questions after your visit, please contact us in one of the following ways: For non-emergent questions / requests: Chat Sports message For appointments: For clinical matters: ; you will be asked to leave a message and our team will callyou back as soon as possible, and definitely within 1 business day. For emergent clinical issues: please call 911 or go to the emergency room. To send in clinical records: please use the fax number at . We appreciate the opportunity to take part in your care. As discussed today, I have talked to your coordinator Jennifer. 1: 16 PM CDT documented in this encounter Progress Notes Sneha Hilliard MD, PhD - 01/04/2019 10:00 AM CDT Sneha Hilliard MD, PhD Section of Infectious Diseases [address] [place] [address] [place] [id number] Transplant Infectious Diseases Clinic Evaluation Date: 01/04/2019 Patient: Chrissie Parada Jr. [address] Iglesias (pre Liver) Transplant Type: none Chief Complaint: Chief Complaint Patient presents with Hospital Follow-up pt states for the past 2 weeks he has developed a rash on his both ankles, left shoulder, thighs, back and abdomen, he tried bacitracin and it did not work and it has become really itchy. He also is light headed and he is cold as well. Coordinator -- Cecilia Choe REQUESTED BY: Dr. Iglesias Subjective HPI: Chrissie Parada Jr. is a 53 y.o. 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 He continuous on IV cefazolin (through PICC placed on 12/22) and is doing well. He reports no fever, no chills, no night sweats. No issues with the PICC line. Tells me that he's been getting weekly labs,next due tomorrow. Labs from 12/29 received today: Significant for Hb 7.4 g/dl (similar to previous).WBC 4.2K. Plt 78K. Creat 0.83. LFTs are stable (bili 6.8, AST 132. ALT 14). Only complaint is some dizziness when standing up, mainly in the AM, after taking his meds. BP in clinic today is on the lower side. Additionally he had some itching and has been scratching his leg, chest and abdomen. Tolerating antibiotics well, no nausea, vomiting, diarrhea (only the expected soft stools with lactulose), sore throat, or skin rash. He presents with his sister. Antibiotics: vanc 12/11 - 12/13 Cefepime 12/11-12/13 Cefazolin 12/13 - present Past Medical History: Past Medical History: Diagnosis Date Cirrhosis (HCCode) HTN (hypertension) Past Surgical History: Past Surgical History: Procedure Laterality Date HX GALLBLADDER REMOVAL Family History: family history is not on file. - as per [facility] chart. Social History: Social History Tobacco Use Smoking status: Never Smoker Smokeless tobacco: Never Used Substance Use Topics Alcohol use: Never Frequency: Never Immunizations Immunization History Administered Date(s) Administered Pneumococcal 13-valent Conjugate Vaccine 01/04/2019 TDaP given after [place] Allergies: Patient has no known allergies. Immunizations: Most Recent Immunizations Administered Date(s) Administered Pneumococcal 13-valent Conjugate Vaccine 01/04/2019 Current Meds: Current Outpatient Medications Medication Sig Dispense Refill ceFAZolin Sodium 2 GM/20ML SOSY Inject 2 g into the vein every 8 hours. folic acid (FOLVITE) 1 MG tablet Take 1 mg by mouth. furosemide (LASIX) 40 MG tablet Take 40 mg by mouth daily. lactulose (CHRONULAC) 10 GM/15ML solution Take 20 g by mouth 3 times daily. Multiple Vitamins-Minerals (CENTRUM ADULTS OR) Take 1 Tab by mouth every morning. omeprazole (PRILOSEC) 40 MG capsule Take 40 mg by mouth daily. propranolol (INDERAL) 20 MG tablet Take 20 mg by mouth two times daily. spironolactone (ALDACTONE) 100 MG tablet Take 75 mg by mouth daily. torsemide (DEMADEX) 10 MG tablet Take 10 mg by mouth daily. No current facility-administered medications for this visit. Revision of System: Review of System: A 10 point ROS was negative except for Review of Systems Constitutional: Negative. HENT: Negative. Eyes: Negative. Respiratory: Negative. Cardiovascular: Positive for leg swelling (chronic right leg swelling). Negative for chest pain, palpitations, orthopnea, claudication and PND. Gastrointestinal: Negative. Diarrhea: Only as associated with taking lactulose. Genitourinary: Negative. Musculoskeletal: Negative. Skin: Negative for itching. Neurological: Positive for dizziness. Negative for tingling, tremors, sensory change, speech change,focal weakness, seizures, loss of consciousness, weakness and headaches. Endo/Heme/Allergies: Bruises/bleeds easily (easy bruising - no bleeding). Psychiatric/Behavioral: Negative. Examination: Vitals: 01/04/19 1014 BP: 99/62 Pulse: 61 Resp: 16 Temp: 97.9 F (36.6 C) TempSrc: Oral SpO2: 98% Weight: 226 lb 9.6 oz (102.8 kg) Height: 5' 7" (1.702 m) Physical Exam Constitutional: He is oriented to person, place, and time and well-developed, well-nourished, and inno distress. No distress. HENT: Head: Normocephalic. Mouth/Throat: Oropharynx is clear and moist. No oropharyngeal exudate. Eyes: Right eye exhibits no discharge. Left eye exhibits no discharge. Scleral icterus is present. Neck: Neck supple. Cardiovascular: Normal rate, regular rhythm, normal heart sounds and intact distal pulses. Exam reveals no gallop and no friction rub. No murmur heard. Pulmonary/Chest: Effort normal and breath sounds normal. No respiratory distress. He has no wheezes.He has no rales. He exhibits no tenderness. Abdominal: Soft. Bowel sounds are normal. He exhibits no distension. There is no tenderness. There is no rebound and no guarding. Musculoskeletal: He exhibits no tenderness or deformity. Edema: Some R sided minimal edema, around ankle (chronic) Lymphadenopathy: He has no cervical adenopathy. Neurological: He is alert and oriented to person, place, and time. No cranial nerve deficit. He exhibits normal muscle tone. Coordination normal. GCS score is 15. Skin: Skin is warm. Rash (Has signs of excoriation over L upper chest, abdominal wall and R leg (2/2scratching)) noted. He is not diaphoretic. No erythema. No pallor. No peripheral stigmata of IE. Psychiatric: Mood, memory, affect and judgment normal. Data: Laboratory Testing: Labs: Lab Results Component Value Date WBC 7.6 12/12/2018 HGB 8.7 (L) 12/12/2018 HCT 25.5 (L) 12/12/2018 MCV 106.7 (H) 12/12/2018 PLT 47 (L) 12/12/2018 Lab Results Component Value Date ALT 25 12/17/2018 AST 71 (H) 12/17/2018 GGT 68 (H) 10/15/2018 ALKPHOS 139 12/17/2018 BILITOT 5.5 (H) 12/17/2018 Lab Results Component Value Date CREATININE 0.79 12/17/2018 BUN 11 12/17/2018 NA 132 (L) 12/17/2018 K 3.4 (L) 12/17/2018 CL 92 (L) 12/17/2018 CO2 35 (H) 12/17/2018 Microbiology: 12/11 Blood 07/23 MSSA Susceptibility Staphylococcus aureus DISK DIFFUSION Not Specified Cefazolin S Clindamycin 0.25 S Erythromycin >=8 R Linezolid 2 S Oxacillin <=0.25 S Rifampin <=0.5 S Tetracycline >=16 R Trimethoprim + Sulfamethoxazole <=10 S Vancomycin 1 S 12/13 Blood 1/4 MSSA 12/14 Blood x1 Negative. 12/18 Blood x2 Negative Prior: 10/15/18 CrAg: neg TB spot: neg RPR neg HIV neg HBVc total neg, HAV IgM neg 09/16/18 HCV Ab neg VHA IgG pos VHB s Ab <8 Crypto Ag neg EBV VCA IgG pos RPR neg T spot neg CMV IgG pos Hep A IgG pos Hep B surf ab neg Hep B core neg Hep C ab neg HIV neg Rubeola IgG immune Rubella IgG pos Mumps IgG immune VZV IgG pos Transplant Recipient Serologies: No results found for: HEPBSAB, EBVEAIGG Radiology Studies: 12/16 JOSIAS: "Summary 1. Normal LV chamber size and systolic function. 2. Mild RV enlargement with normal RV function. 3. Trace Mitral Regurgitation. 4. No evidence of endocarditis. 5. No evidence of PFO. 6. Estimated PA pressures are 50-55mmHg plus RA pressure. " Impression: Chrissie Parada Jr. has a PMH of cirrhosis getting worked up for liver transplant, here for discharge f/u after recent admission with MSSA bacteremia. ICD-10-CM 1. MSSA bacteremia R78.81 2. Hepatic cirrhosis, unspecified hepatic cirrhosis type, unspecified whether ascites present (HCCode) K74.60 3. Pre-transplant evaluation for liver transplant Z01.818 4. Encounter for long-term (current) use of high-risk medication Z79.899 5. Pneumococcal vaccination given Z23 Plan: Assesment: Chrissie Parada Jr. is a 53 y.o. 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 On arrival started on IV abx, broad spectrum, found to have 4/4 MSSA, switched to cefazolin in house. His TTE has some small thickening on the mitral valve, however, a JOSIAS on 12/16 was clean, CXR clear as well. He had shoulder pain, however this improved within 24-48 hours. His shoulder was tapped by orthopedics and was dry, not suggestive of infection. Repeat BC from 12/13 positive but cleared as off12/14. Tolerating antibiotics well. Current issue are mainly orthostasis related due to recent increase in diuretics / beta-blockers perpatient. D/W liver coordinator Jennifer Choe, and have also faxed last labs to her to d/w liver team. Red flags were discussed with patient. Rash is 2/2 itching, he will discuss options with liver team. In light of transplant consideration, would recommend vaccinations, detailed below. Started today with Prevnar. States he already started hep B series, please ensure completion. Plan for at least 4 weeks of IV antibiotics counting from the day of bloodstream clearance. Impression: MSSA bacteremia Cirrhosis 2/2 EtOH Recommendations: - C/w cefazolin 2g q8h. Anticipaqted stop date is 01/11/19. - Continue weekly labs by HH to be faxed to [facility]: CBC with diff, CMP. - Remove PICC when antimicrobials are complete. - Repeat blood cultures one week after discontinuation of antibiotics. Order placed and given to patient. - Concern for orthostasis and last Hb 7.4 (although similar to previous) d/w Jennifer Choe (TC) - we havefaxed labs to her attention as well. - Vaccinations: He should be vaccinated for hepatitis B, would do accelerated schedule with a doubledose Engerix B at 0, 1 and 3 weeks. Reports that this was started. Please ensure completion. - Prevnar today. He will need Pneumovax no sooner than 8 weeks after today. - He should also get Shingrix if available. These recommendations will be communicated to the Primary Team directly. Thanks for allowing Transplant [facility] to participate in the care of this patient. For questions or concerns please contact the fellow or attending of record directly. RTC: 02/01/19 Counseling: counseling time more than 50% of visit: 30 minutes. Issues concerning treatment and diagnosis were discussed. There were no barriers to understanding.The plan of treatment explanation was well received by the patient and/or family who then verbalizedunderstanding. Sneha Hilliard MD PhD Transplant Infectious Diseases Boring Machine Operator Double End [facility] Infectious Diseases - [facility] [address] [place] [address]; [place] [address] Call center: [phone] 1: 20 PM CDTdocumented in this encounter Plan of Treatment Date Type Specialty Care Team Description 02/01/2019 Office Visit Infectious Diseases Sneha Hilliard MD, PhD [address] [place] [address] Name Type Priority Associated Diagnoses Order Schedule CULTURE, BLOOD Microbiology Routine MSSA bacteremia Expected: 01/18/2019, Encounter for long-term Expires: 07/05/2019 (current) use of high-risk medication CULTURE, BLOOD Microbiology Routine MSSA bacteremia Expected: 01/18/2019, Encounter for long-term Expires: 07/05/2019 (current) use of high-risk medication Health Maintenance Due Date Last Done Comments COLON CANCER SCREENING: COLONOSCOPY 1965 TETANUS SHOT (ADULT) 1981 FLU VACCINE > 6 MONTHS 11/19/2018 HIV SCREENING Completed 10/15/2018 documented as of this encounter Results Not on filedocumented in this encounter Visit Diagnoses Diagnosis MSSA bacteremia - Primary Hepatic cirrhosis, unspecified hepatic cirrhosis type, unspecified whether ascites present (HCCode) Pre-transplant evaluation for liver transplant Encounter for long-term (current) use of high-risk medication Encounter for long-term (current) use of other medications Pneumococcal vaccination given documented in this encounter Insurance Payer Benefit Plan / Subscriber ID Effective Phone Address Type Group Dates [facility] xxxxxxxxx 2017-Prese [address] [address] Medicaid [facility] [place] [address] [facility] xxxxxxxxx Effective for [address] [address] PPO [place] [address] documented as of this encounter
--- OUTSIDE RECORDS SUMMARY | 2019-03-10 10:20 | XMS REPORT | Summary of Care ---
:1965 Author Organization [facility] [place] [address] Care Team Providers Name Role Phone Evelia Klein NP Primary Care Provider Reason for Visit Reason Comments Disease Management staph infection Encounter Details Date Type Department Care Team Description 02/01/2019 Office Visit [facility], Disease Management Medicine Infectious MD Sneha, PhD (staph infection) Disease [address] [place] [address] 8th Floor; [address] [place] [address] [place] [phone] [phone] Allergies No Known Allergiesdocumented as of this encounter (statuses as of 02/01/2019) Medications Medication Sig Dispensed Refills Start Date End Date Status lactulose (CHRONULAC) Take 20 g by 0 11/26/2018 Active 10 GM/15ML solution mouth 3 times daily. spironolactone Take 75 mg 0 11/24/2018 Active (ALDACTONE) 100 MG by mouth tablet daily. furosemide (LASIX) 40 Take 40 mg 0 11/24/2018 Active MG tablet by mouth daily. folic acid (FOLVITE) Take 1 mg by 0 09/17/2018 09/17/2019 Active 1 MG tablet mouth daily. omeprazole (PRILOSEC) Take 40 mg 0 11/24/2018 Active 40 MG capsule by mouth daily. Multiple Take 1 Tab 0 Active Vitamins-Minerals by mouth (CENTRUM ADULTS OR) every morning. torsemide (DEMADEX) Take 10 mg 0 12/23/2018 02/01/2019 Discontinued 10 MG tablet by mouth daily. propranolol (INDERAL) Take 20 mg 0 11/12/2018 02/01/2019 Discontinued 20 MG tablet by mouth two times daily. ceFAZolin Sodium 2 Inject 2 g 0 02/01/2019 Discontinued GM/20ML SOSY into the vein every 8 hours. documented as of this encounter (statuses as of 02/01/2019) Active Problems Not on filedocumented as of this encounter (statuses as of 02/01/2019) Immunizations Name Administration Dates Next Due Influenza Quad-PF 02/01/2019 Pneumococcal 13-valent Conjugate Vaccine 01/04/2019 documented as [...] Sign Reading Time Taken Comments Blood Pressure 137/78 02/01/2019 10:53 AM CDT Pulse 90 02/01/2019 10:53 AM CDT Temperature 36.7 C (98.1 F) 02/01/2019 10:53 AM CDT Respiratory Rate 18 02/01/2019 10:53 AM CDT Oxygen Saturation 98% 02/01/2019 10:53 AM CDT Inhaled Oxygen Concentration - - Weight 104.7 kg (230 lb 12.8 oz) 02/01/2019 10:53 AM CDT Height - - Body Mass Index 36.15 01/04/2019 10:14 AM CDT documented in this encounter Patient Instructions Patient InstructionsSneha Hilliard MD, PhD - 02/01/2019 11:00 AM CDT- Flu shot today. - You will need the Pneumovax vaccine -- please get that on 03.05.19 or later. - You should get vaccinated for hepatitis B, would recommend accelerated schedule with a double doseEngerix B at 0, 1 and 3 weeks. You have told us that this was started. Please ensure completion. - Blood cultures today. Stop on the lab on your way out. documented in this encounter Progress Notes Sneha Hilliard MD, PhD - 02/01/2019 11:00 AM CDT Sneha Hilliard MD, PhD Section of Infectious Diseases [address] [place] [address] [address] [place] [address] Transplant Infectious Diseases Clinic Evaluation Date: 02/01/2019 Patient: Chrissie Parada Jr. [address] Iglesias (pre Liver) Transplant Type: none Chief Complaint: Chief Complaint Patient presents with Disease Management [facility] infection Coordinator -- Cecilia Choe REQUESTED BY: Dr. Iglesias Subjective HPI (01/04/19): Chrissie Parada Jr. is a 54 y.o. male with a h/o cirrhosis 2/2 [...] with lactulose), sore throat, or skin rash. 02/01/2019 Last seen on 01/04, presents today with his 2 sisters. He has no more dizziness , his diuretics had been adjusted and he feels well. He finished his IV cefazolin on 01/11/19, PICC was pulled by Home Health. No further issues. He did not get repeat blood cultures though, so we will get those today. Antibiotics: vanc 12/11 - 12/13 Cefepime 12/11-12/13 Cefazolin 12/13 - 01/11 Past Medical History: Past Medical History: Diagnosis Date Cirrhosis (HCCode) HTN (hypertension) Past Surgical History: Past Surgical History: Procedure Laterality Date HX GALLBLADDER REMOVAL Family History: family history is not on file. - as per [facility] chart. Social History: Social History [...] 1 MG tablet Take 1 mg by mouth daily. furosemide (LASIX) 40 MG tablet Take 40 mg by mouth daily. lactulose (CHRONULAC) 10 GM/15ML solution Take 20 g by mouth 3 times daily. Multiple Vitamins-Minerals (CENTRUM ADULTS OR) Take 1 Tab by mouth every morning. omeprazole (PRILOSEC) 40 MG capsule Take 40 mg by mouth daily. spironolactone (ALDACTONE) 100 MG tablet Take 75 mg by mouth daily. torsemide (DEMADEX) 10 MG tablet Take 10 mg by mouth daily. No current facility-administered medications for this visit. Revision of System: Review of System: A 10 point ROS was negative except for Review of Systems Constitutional: Negative. HENT: Negative. Eyes: Negative. Respiratory: Negative. Cardiovascular: Positive for leg swelling (chronic right leg swelling, unchanged from prior). Negative for chest pain, palpitations, orthopnea, claudication and PND. Gastrointestinal: Negative. Genitourinary: Negative. Musculoskeletal: Negative. Skin: Negative for itching. Neurological: Negative. Endo/Heme/Allergies: Bruises/bleeds easily (Occassional nose bleeds). Psychiatric/Behavioral: Negative. Examination: Vitals: 02/01/19 1053 BP: 137/78 Pulse: 90 Resp: 18 Temp: 98.1 F (36.7 C) TempSrc: Oral SpO2: 98% Weight: 230 lb 12.8 oz (104.7 kg) Physical Exam Constitutional: He is oriented to [...] score is 15. Skin: Skin is warm. No rash noted. He is not diaphoretic. No erythema. No pallor. Psychiatric: Mood, memory, affect and judgment normal. Data: Laboratory Testing: Labs: Lab Results Component Value Date WBC 5.4 01/05/2019 HGB 9.1 (L) 01/05/2019 HCT 27.5 (L) 01/05/2019 MCV 110.9 (H) 01/05/2019 PLT 83 (L) 01/05/2019 Lab Results Component Value Date ALT 18 01/05/2019 AST 98 (H) 01/05/2019 GGT 68 (H) 10/15/2018 ALKPHOS 200 (H) 01/05/2019 BILITOT 6.4 (H) 01/05/2019 Lab Results Component Value Date CREATININE 0.99 01/05/2019 BUN 14 01/05/2019 NA 133 (L) 01/05/2019 K 4.5 01/05/2019 CL 97 (L) 01/05/2019 CO2 31 (H) 01/05/2019 Microbiology: 12/11 Blood 07/23 MSSA Susceptibility Staphylococcus aureus DISK DIFFUSION Not Specified Cefazolin S Clindamycin 0.25 S Erythromycin >=8 R Linezolid 2 S Oxacillin <=0.25 S Rifampin <=0.5 S Tetracycline >=16 R Trimethoprim + Sulfamethoxazole <=10 S Vancomycin 1 S 12/13 Blood 04/24 MSSA 12/14 Blood x1 Negative. 12/18 Blood [...] Pre-transplant evaluation for liver transplant Z01.818 4. Influenza vaccine needed Z23 5. Health education/counseling Z71.9 6. Alcoholic cirrhosis, unspecified whether ascites present (HCCode) K70.30 7. Need for prophylactic vaccination and inoculation against influenza Z23 Plan: Assesment: Chrissie Parada Jr. is a 54 y.o. 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 [...] from 12/13 positive but cleared as off12/14. Tolerated antibiotics well and has now finished four weeks of IV antimicrobials (counting fromday of bloodstream clearance). He's pending repeat blood cultures which he did not get done and we have re- ordered today. In light of transplant consideration, would recommend vaccinations, detailed below. Impression: MSSA bacteremia, resolved, completed treatment Cirrhosis 05/23 EtOH Recommendations: - Repeating blood cultures today to ensure clearance of bloodstream . Order placed, given to patient and instructed to stop at the lab on his way out. - Vaccinations: He should be vaccinated for hepatitis B, would do accelerated schedule with a doubledose Engerix B at 0, 1 and 3 weeks. Reports that this was started. Please ensure completion. - Prevnar given on 01/04/19 - He will need Pneumovax no sooner than 8 weeks after 01/04 - instructed to get mid-end February. - Flu vaccine today. - He should also get Shingrix if available. These recommendations will be communicated to the Primary Team directly. Thanks for allowing Transplant [facility] to participate in the care of this patient. For questions or concerns please contact the fellow or attending of record directly. Issues concerning treatment and diagnosis were discussed. There were no barriers to understanding. The plan of treatment explanation was well received by the patient and/or family who verbalized understanding. AVS printed and given to patient. Sneha Hilliard MD PhD Transplant Infectious Diseases Car Rental Service Attendant [facility] Infectious Diseases [facility] [address]; [place] [address] Call center: [phone] 3: 07 PM CDTdocumented in this encounter Plan of Treatment Name Type Priority Associated Diagnoses Order Schedule CULTURE, BLOOD Microbiology Routine MSSA bacteremia Ordered: 02/01/2019 CULTURE, BLOOD Microbiology Routine MSSA bacteremia Ordered: 02/01/2019 Health Maintenance Due Date Last Done Comments COLON CANCER SCREENING: COLONOSCOPY 1965 TETANUS SHOT (ADULT) 1981 BMI FOLLOW UP PLAN 01/10/1984 FLU VACCINE > 6 MONTHS 11/19/2018 PREVNAR >=65 (PCV13) 2031 01/04/2019 HIV SCREENING Completed 10/15/2018 documented as of this encounter Results Not on filedocumented in this encounter Visit Diagnoses Diagnosis Bloodstream infection (HCCode) - Primary Unspecified septicemia MSSA bacteremia Hepatic cirrhosis, unspecified hepatic cirrhosis type, unspecified whether ascites present (HCCode) Pre-transplant evaluation for liver transplant Influenza vaccine needed Need for prophylactic vaccination and inoculation against influenza Health education/counseling Counseling NOS Alcoholic cirrhosis, unspecified whether ascites present (HCCode) Need for prophylactic vaccination and inoculation against influenza documented in this encounter Insurance Payer Benefit Plan / Subscriber ID Effective Phone Address Type Group Dates [facility] xxxxxxxxx 2017-[place] [address] [address] Medicaid [employer] [address] documented as of this encounter
--- OUTSIDE RECORDS SUMMARY | 2019-03-10 10:20 | XMS REPORT ---
:1965 Author Organization [facility] Address [address] [place] [address] [address] [place] [address] Care Team Providers Name Role Phone ALY IGLESIAS Unavailable Unavailable LISA CUETO Unavailable Unavailable FRANK PAIGE Unavailable Unavailable Problems This patient has no known problems. Allergies, Adverse Reactions, Alerts This patient has no known allergies or adverse reactions. Medications This patient has no known medications. Results Test Description Test Time Test Comments Text Results Atomic Results Result Comments TISSUE EXAM 2019-01-20 16:20:00 Surgical Pathology Report Case: [id number] Authorizing Provider: Aly Iglesias MD Collected: 01/18/2019 1020 Ordering Location: [facility] Received: 01/18/2019 1603 Pathologist: Mikey Gonzales MD Specimens: A) - Small Bowel, NOS, BX B) - Antrum, BX A. SMALL BOWEL NOS, BIOPSY- DUODENAL MUCOSA WITH NO DIAGNOSTIC ALTERATIONB. STOMACH, ANTRUM, BIOPSY- CHRONIC INACTIVE GASTRITIS, MINIMAL-MILD- VASCULAR ECTASIA, MILD (SEE COMMENT)- NO INTESTINAL METAPLASIA, DYSPLASIA OR INVASIVE CARCINOMA IDENTIIFIED- NO HELICOBACTER PYLORI LIKE ORGANISMS IDENTIFIED ON WARTHIN STARRY STAIN Signing Pathologist Direct Phone Line: [phone] signed by Mikey Gonzales MD on 01/20/2019 at 4:20 PMMild vascular ectasia is present and although non-specific, is suggestive of portal hypertensive gastropathy in this clinical setting.[id number] X 2, 09289Duupdpxft (alcohol), portal hypertension, Esophageal varicesA. Small bowel. B. Antrum. A. Specimen was received in formalin with the patient's identification and surgical accession number. One fragment 0.5 x 0.5 x 0.2 in block A1. B. Specimen was received in formalin with the patient's identification and surgical accession number. Two fragments 0.3 x 0.3 x 0.1 cm in aggregate in block B1. Performed.The interpretation of this case included the use of immunohistochemistry or special stains.Control Slides Examined: In-house known positive controls were evaluated along with the test tissue. These control slides run alongside of the patients sample show appropriate staining. Internal positive and negative controls when available are evaluated Immunohistochemistry technical testing was performed at [facility], Pathology Laboratory where it was developed and its performance characteristics were determined. It has not been cleared or approved by the U.S. Food and Drug Administration. The FDA has determined that such clearance or approval is not necessary. The test is used for clinical purposes. It should not be regarded as investigational or for research. This laboratory is certified under the Clinical Laboratory Improvement Amendments of 1988 (CLIA-88) as qualified to perform high complexity clinical laboratory testing.[facility], Department of Pathology, [address] [place], [place] [id number], [facility], [facility] of [facility], [address] [place] [address], [facility], [facility] of [facility], [address] [place] [address], BASIC METABOLIC PANEL 2019-01-05 17:29:00 Test Item Value Reference Range Comments SODIUM (BEAKER) (test 133 meq/L 136-145 iyqf=633) POTASSIUM (BEAKER) (test 4.5 meq/L 3.5-5.1 kbhm=522) CHLORIDE (BEAKER) (test 97 meq/L 98-107 wtlj=626) CO2 (BEAKER) (test aaak=188) 31 meq/L 22-29 BLOOD UREA NITROGEN (BEAKER) 14 mg/dL 7-21 (test veim=177) CREATININE (BEAKER) (test 0.99 mg/dL 0.57-1.25 fibd=927) GLUCOSE RANDOM (BEAKER) 83 mg/dL 70-105 (test antx=498) CALCIUM (BEAKER) (test 9.1 mg/dL 8.4-10.2 pdkp=011) EGFR (BEAKER) (test 79 mL/min/1.73 sq m ESTIMATED GFR IS NOT zdzj=9090) ACCURATE CREATININE CLEARANCE IN PREDICTING GLOMERULAR FILTRATION RATE. ESTIMATED GFR IS NOT APPLICABLE FOR DIALYSIS PATIENTS. Specimen moderately ictericHEPATIC FUNCTION [id number] 17:29:00 Test Item Value Reference Range Comments TOTAL PROTEIN (BEAKER) (test oaha=876) 8.5 gm/dL 6.0-8.3 ALBUMIN (BEAKER) (test cjji=6984) 2.7 g/dL 3.5-5.0 BILIRUBIN TOTAL (BEAKER) (test sgau=933) 6.4 mg/dL 0.2-1.2 BILIRUBIN DIRECT (BEAKER) (test eigw=210) 3.2 mg/dL 0.1-0.5 ALKALINE PHOSPHATASE (BEAKER) (test oppv=508) 200 U/L 40-150 AST (SGOT) (BEAKER) (test oydp=988) 98 U/L 5-34 ALT (SGPT) (BEAKER) (test bwgf=090) 18 U/L 6-55 Specimen moderately ictericPROTHROMBIN [id number] 17:15:00 Test Item Value Reference Range Comments PROTIME (BEAKER) (test ouei=368) 24.2 seconds 11.9-14.2 INR (BEAKER) (test tiab=168) 2.3 <=5.9 Effective 09/16/2018: PT Reference Range ChangeNew: 11.9-14.2 Previous: 11.7- 14.7RECOMMENDED COUMADIN/WARFARIN INR THERAPY RANGESSTANDARD DOSE: 2.0-3.0 Includes: PROPHYLAXIS for venous thrombosis, systemic embolization; TREATMENT for venous thrombosis and/or pulmonary embolus.HIGH RISK: Target INR is2.5-3.5 for patients wiht mechanical heart valves.CBC W/PLT COUNT & AUTO [id number] 17:10:00 Test Item Value Reference Range Comments WHITE BLOOD CELL COUNT (BEAKER) (test ztwa=562) 5.4 K/ L 3.5-10.5 RED BLOOD CELL COUNT (BEAKER) (test nyxz=686) 2.48 M/ L 4.63-6.08 HEMOGLOBIN (BEAKER) (test pewu=883) 9.1 GM/DL 13.7-17.5 HEMATOCRIT (BEAKER) (test ibhk=400) 27.5 % 40.1-51.0 MEAN CORPUSCULAR VOLUME (BEAKER) (test yhbl=003) 110.9 fL 79.0-92.2 MEAN CORPUSCULAR HEMOGLOBIN (BEAKER) (test 36.7 pg 25.7-32.2 nfwb=201) MEAN CORPUSCULAR HEMOGLOBIN CONC (BEAKER) (test 33.1 GM/DL 32.3-36.5 numb=662) RED CELL DISTRIBUTION WIDTH (BEAKER) (test 15.8 % 11.6-14.4 jfab=561) PLATELET COUNT (BEAKER) (test munv=532) 83 K/CU MM 150-450 MEAN PLATELET VOLUME (BEAKER) (test mzao=513) 11.5 fL 9.4-12.4 NUCLEATED RED BLOOD CELLS (BEAKER) (test 0 /100 WBC 0-0 qaqf=739) NEUTROPHILS RELATIVE PERCENT (BEAKER) (test 57 % awau=421) LYMPHOCYTES RELATIVE PERCENT (BEAKER) (test 22 % czth=501) MONOCYTES RELATIVE PERCENT (BEAKER) (test 12 % znuj=582) EOSINOPHILS RELATIVE PERCENT (BEAKER) (test 7 % xecr=187) BASOPHILS RELATIVE PERCENT (BEAKER) (test 1 % rqnr=987) NEUTROPHILS ABSOLUTE COUNT (BEAKER) (test 3.07 K/ L 1.78-5.38 qzvv=487) LYMPHOCYTES ABSOLUTE COUNT (BEAKER) (test 1.19 K/ L 1.32-3.57 fgos=477) MONOCYTES ABSOLUTE COUNT (BEAKER) (test stvc=209) 0.64 K/ L 0.30-0.82 EOSINOPHILS ABSOLUTE COUNT (BEAKER) (test 0.38 K/ L 0.04-0.54 krtr=276) BASOPHILS ABSOLUTE COUNT (BEAKER) (test skgy=785) 0.05 K/ L 0.01-0.08 IMMATURE GRANULOCYTES-RELATIVE PERCENT (BEAKER) 1 % 0-1 (test jsib=6753) BLOOD [id number] 02:00:00 Test Item Value Reference Range Comments CULTURE (BEAKER) (test aywr=8946) No growth in 5 days CBC W/PLT COUNT & AUTO [id number] 05:28:00 Test Item Value Reference Range Comments WHITE BLOOD CELL COUNT (BEAKER) (test kpyh=453) 4.1 K/ L 3.5-10.5 RED BLOOD CELL COUNT (BEAKER) (test fmtq=368) 2.06 M/ L 4.63-6.08 HEMOGLOBIN (BEAKER) (test pwdr=424) 7.5 GM/DL 13.7-17.5 HEMATOCRIT (BEAKER) (test xeyl=820) 22.7 % 40.1-51.0 MEAN CORPUSCULAR VOLUME (BEAKER) (test obhc=658) 110.2 fL 79.0-92.2 MEAN CORPUSCULAR HEMOGLOBIN (BEAKER) (test 36.4 pg 25.7-32.2 blax=300) MEAN CORPUSCULAR HEMOGLOBIN CONC (BEAKER) (test 33.0 GM/DL 32.3-36.5 ujpr=210) RED CELL DISTRIBUTION WIDTH (BEAKER) (test 18.8 % 11.6-14.4 hgmo=318) PLATELET COUNT (BEAKER) (test ltxx=180) 64 K/CU MM 150-450 MEAN PLATELET VOLUME (BEAKER) (test pjnh=560) 10.1 fL 9.4-12.4 NUCLEATED RED BLOOD CELLS (BEAKER) (test 0 /100 WBC 0-0 notf=668) NEUTROPHILS RELATIVE PERCENT (BEAKER) (test 60 % zhcs=203) LYMPHOCYTES RELATIVE PERCENT (BEAKER) (test 24 % odlk=004) MONOCYTES RELATIVE PERCENT (BEAKER) (test 11 % qbdj=858) EOSINOPHILS RELATIVE PERCENT (BEAKER) (test 5 % attv=896) BASOPHILS RELATIVE PERCENT (BEAKER) (test 1 % qmsk=132) NEUTROPHILS ABSOLUTE COUNT (BEAKER) (test 2.44 K/ L 1.78-5.38 fpze=609) LYMPHOCYTES ABSOLUTE COUNT (BEAKER) (test 0.98 K/ L 1.32-3.57 jxjp=523) MONOCYTES ABSOLUTE COUNT (BEAKER) (test ubzo=194) 0.44 K/ L 0.30-0.82 EOSINOPHILS ABSOLUTE COUNT (BEAKER) (test 0.20 K/ L 0.04-0.54 kizj=106) BASOPHILS ABSOLUTE COUNT (BEAKER) (test htsz=537) 0.02 K/ L 0.01-0.08 IMMATURE GRANULOCYTES-RELATIVE PERCENT (BEAKER) 1 % 0-1 (test wucx=3422) [id number] 05:16:00 Test Item Value Reference Range Comments PHOSPHORUS (BEAKER) (test pzhr=741) 2.6 mg/dL 2.3-4.7 [id number] 05:16:00 Test Item Value Reference Range Comments MAGNESIUM (BEAKER) (test daux=801) 1.7 mg/dL 1.6-2.6 BASIC METABOLIC [id number] 05:16:00 Test Item Value Reference Range Comments SODIUM (BEAKER) (test 133 meq/L 136-145 obfm=914) POTASSIUM (BEAKER) (test 3.9 meq/L 3.5-5.1 baar=763) CHLORIDE (BEAKER) (test 101 meq/L 98-107 etbe=474) CO2 (BEAKER) (test 28 meq/L 22-29 rdhv=826) BLOOD UREA NITROGEN 8 mg/dL 7-21 (BEAKER) (test zyes=604) CREATININE (BEAKER) (test 0.65 mg/dL 0.57-1.25 kkqs=875) GLUCOSE RANDOM (BEAKER) 76 mg/dL 70-105 (test vokc=669) CALCIUM (BEAKER) (test 8.2 mg/dL 8.4-10.2 agzv=495) EGFR (BEAKER) (test 129 mL/min/1.73 sq m ESTIMATED GFR IS NOT yyxe=9523) ACCURATE CREATININE CLEARANCE IN PREDICTING GLOMERULAR FILTRATION RATE. ESTIMATED GFR IS NOT APPLICABLE FOR DIALYSIS PATIENTS. Specimen moderately ictericHEPATIC FUNCTION [id number] 05:16:00 Test Item Value Reference Range Comments TOTAL PROTEIN (BEAKER) (test seoy=861) 6.8 gm/dL 6.0-8.3 ALBUMIN (BEAKER) (test ptky=7510) 2.4 g/dL 3.5-5.0 BILIRUBIN TOTAL (BEAKER) (test warb=054) 6.4 mg/dL 0.2-1.2 BILIRUBIN DIRECT (BEAKER) (test kxnn=262) 2.8 mg/dL 0.1-0.5 ALKALINE PHOSPHATASE (BEAKER) (test zexi=151) 125 U/L 40-150 AST (SGOT) (BEAKER) (test xwta=539) 92 U/L 5-34 ALT (SGPT) (BEAKER) (test libc=432) 26 U/L 6-55 Specimen moderately ictericPROTHROMBIN [id number] 05:10:00 Test Item Value Reference Range Comments PROTIME (BEAKER) (test ecyo=969) 26.5 seconds 11.9-14.2 INR (BEAKER) (test zrwb=685) 2.6 <=5.9 Effective 09/16/2018: PT Reference Range ChangeNew: 11.9-14.2 Previous: 11.7- 14.7RECOMMENDED COUMADIN/WARFARIN INR THERAPY RANGESSTANDARD DOSE: 2.0-3.0 Includes: PROPHYLAXIS for venous thrombosis, systemic embolization; TREATMENT for venous thrombosis and/or pulmonary embolus.HIGH RISK: Target INR is2.5-3.5 for patients wiht mechanical heart valves.CALCIUM, [id number] 05:03:00 Test Item Value Reference Range Comments CALCIUM IONIZED (BEAKER) (test hans=443) 1.03 mmol/L 1.12-1.27 PH, BLOOD (BEAKER) (test ybdb=9299) 7.53 RAD, CHEST, 1 VIEW, NON [id number] 11:40:00Reason for exam:->post picc line insertionShould this be performed at the bedside?->YesFINAL REPORT CLINICAL HISTORY:post picc line insertion TECHNIQUE: 1 view of the chest. COMPARISON: 12/12/2018 IMPRESSION: The tip of the right PICC line is in the SVC approximately 2.5 cm above the cavoatrial junction. There are no focal infiltrates or effusions. The cardiomediastinal silhouette is magnified by technique. Signed: Yan Gooden MDReport Verified Date/Time: 06/2018 11:40:12 Reading Location: [facility] Radiology Reading Room [id number] 06:56:00 Test Item Value Reference Range Comments MAGNESIUM (BEAKER) (test hzju=696) 1.6 mg/dL 1.6-2.6 HEPATIC FUNCTION [id number] 06:56:00 Test Item Value Reference Range Comments TOTAL PROTEIN (BEAKER) (test yawg=313) 7.1 gm/dL 6.0-8.3 ALBUMIN (BEAKER) (test axrg=4026) 2.5 g/dL 3.5-5.0 BILIRUBIN TOTAL (BEAKER) (test kjah=569) 5.9 mg/dL 0.2-1.2 BILIRUBIN DIRECT (BEAKER) (test hhin=820) 2.8 mg/dL 0.1-0.5 ALKALINE PHOSPHATASE (BEAKER) (test dacd=286) 129 U/L 40-150 AST (SGOT) (BEAKER) (test eqcl=238) 96 U/L 5-34 ALT (SGPT) (BEAKER) (test zqhd=345) 28 U/L 6-55 Specimen moderately ictericCBC W/PLT COUNT & AUTO [id number] 06: 38:00 Test Item Value Reference Range Comments WHITE BLOOD CELL COUNT (BEAKER) (test mupf=456) 4.3 K/ L 3.5-10.5 RED BLOOD CELL COUNT (BEAKER) (test xtbr=890) 2.19 M/ L 4.63-6.08 HEMOGLOBIN (BEAKER) (test gjat=623) 7.9 GM/DL 13.7-17.5 HEMATOCRIT (BEAKER) (test jzjq=922) 23.8 % 40.1-51.0 MEAN CORPUSCULAR VOLUME (BEAKER) (test vkyo=637) 108.7 fL 79.0-92.2 MEAN CORPUSCULAR HEMOGLOBIN (BEAKER) (test 36.1 pg 25.7-32.2 uozl=980) MEAN CORPUSCULAR HEMOGLOBIN CONC (BEAKER) (test 33.2 GM/DL 32.3-36.5 eong=824) RED CELL DISTRIBUTION WIDTH (BEAKER) (test 18.7 % 11.6-14.4 ogla=144) PLATELET COUNT (BEAKER) (test sxhw=593) 66 K/CU MM 150-450 MEAN PLATELET VOLUME (BEAKER) (test ubyf=569) 9.4 fL 9.4-12.4 NUCLEATED RED BLOOD CELLS (BEAKER) (test 0 /100 WBC 0-0 govg=124) NEUTROPHILS RELATIVE PERCENT (BEAKER) (test 58 % ieuk=807) LYMPHOCYTES RELATIVE PERCENT (BEAKER) (test 25 % foyt=825) MONOCYTES RELATIVE PERCENT (BEAKER) (test 12 % oqki=072) EOSINOPHILS RELATIVE PERCENT (BEAKER) (test 5 % qoen=884) BASOPHILS RELATIVE PERCENT (BEAKER) (test 1 % lqcf=925) NEUTROPHILS ABSOLUTE COUNT (BEAKER) (test 2.51 K/ L 1.78-5.38 xhyu=390) LYMPHOCYTES ABSOLUTE COUNT (BEAKER) (test 1.07 K/ L 1.32-3.57 nadx=307) MONOCYTES ABSOLUTE COUNT (BEAKER) (test aoeo=748) 0.50 K/ L 0.30-0.82 EOSINOPHILS ABSOLUTE COUNT (BEAKER) (test 0.20 K/ L 0.04-0.54 gtot=620) BASOPHILS ABSOLUTE COUNT (BEAKER) (test elqa=564) 0.03 K/ L 0.01-0.08 IMMATURE GRANULOCYTES-RELATIVE PERCENT (BEAKER) 1 % 0-1 (test fntd=2413) [id number] 06:17:00 Test Item Value Reference Range Comments PHOSPHORUS (BEAKER) (test camn=594) 2.7 mg/dL 2.3-4.7 BASIC METABOLIC [id number] 06:17:00 Test Item Value Reference Range Comments SODIUM (BEAKER) (test 136 meq/L 136-145 wkri=944) POTASSIUM (BEAKER) (test 4.0 meq/L 3.5-5.1 euzy=023) CHLORIDE (BEAKER) (test 103 meq/L 98-107 fxoz=517) CO2 (BEAKER) (test 29 meq/L 22-29 nckg=712) BLOOD UREA NITROGEN 10 mg/dL 7-21 (BEAKER) (test zjyf=790) CREATININE (BEAKER) (test 0.70 mg/dL 0.57-1.25 egvh=630) GLUCOSE RANDOM (BEAKER) 81 mg/dL 70-105 (test znyn=085) CALCIUM (BEAKER) (test 8.6 mg/dL 8.4-10.2 djiz=440) EGFR (BEAKER) (test 118 mL/min/1.73 sq m ESTIMATED GFR IS NOT qlbz=2623) ACCURATE CREATININE CLEARANCE IN PREDICTING GLOMERULAR FILTRATION RATE. ESTIMATED GFR IS NOT APPLICABLE FOR DIALYSIS PATIENTS. Specimen moderately ictericB-TYPE NATRIURETIC FACTOR (BNP)2018-12-22 06:14:00 Test Item Value Reference Range Comments B-TYPE NATRIURETIC PEPTIDE (BEAKER) (test ngwe=123) 97 pg/mL 0-100 PROTHROMBIN [id number] 06:07:00 Test Item Value Reference Range Comments PROTIME (BEAKER) (test yhwn=854) 25.3 seconds 11.9-14.2 INR (BEAKER) (test vxde=989) 2.4 <=5.9 Effective 09/16/2018: PT Reference Range ChangeNew: 11.9-14.2 Previous: 11.7- 14.7RECOMMENDED COUMADIN/WARFARIN INR THERAPY RANGESSTANDARD DOSE: 2.0-3.0 Includes: PROPHYLAXIS for venous thrombosis, systemic embolization; TREATMENT for venous thrombosis and/or pulmonary embolus.HIGH RISK: Target INR is2.5-3.5 for patients wiht mechanical heart valves.CALCIUM, [id number] 05:40:00 Test Item Value Reference Range Comments CALCIUM IONIZED (BEAKER) (test ddvg=835) 1.10 mmol/L 1.12-1.27 PH, BLOOD (BEAKER) (test ugsc=2403) 7.46 BLOOD [id number] 12:01:00 Test Item Value Reference Range Comments CULTURE (BEAKER) (test redi=6755) No growth in 5 days HEMOGLOBIN AND [id number] 08:44:00 Test Item Value Reference Range Comments HEMOGLOBIN (BEAKER) (test dzvg=962) 8.2 GM/DL 13.7-17.5 HEMATOCRIT (BEAKER) (test xcic=107) 25.3 % 40.1-51.0 BASIC METABOLIC [id number] 05:15:00 Test Item Value Reference Range Comments SODIUM (BEAKER) (test 134 meq/L 136-145 yudl=292) POTASSIUM (BEAKER) (test 3.8 meq/L 3.5-5.1 lhbw=024) CHLORIDE (BEAKER) (test 103 meq/L 98-107 ggcr=355) CO2 (BEAKER) (test 24 meq/L 22-29 myfl=761) BLOOD UREA NITROGEN 11 mg/dL 7-21 (BEAKER) (test kdeo=797) CREATININE (BEAKER) (test 0.71 mg/dL 0.57-1.25 jewl=961) GLUCOSE RANDOM (BEAKER) 76 mg/dL 70-105 (test rcoo=271) CALCIUM (BEAKER) (test 8.8 mg/dL 8.4-10.2 qdhj=803) EGFR (BEAKER) (test 117 mL/min/1.73 sq m ESTIMATED GFR IS NOT pbpd=8851) ACCURATE CREATININE CLEARANCE IN PREDICTING GLOMERULAR FILTRATION RATE. ESTIMATED GFR IS NOT APPLICABLE FOR DIALYSIS PATIENTS. Specimen moderately ictericHEPATIC FUNCTION [id number] 05:15:00 Test Item Value Reference Range Comments TOTAL PROTEIN (BEAKER) (test jvrw=462) 7.0 gm/dL 6.0-8.3 ALBUMIN (BEAKER) (test vfaz=9323) 2.5 g/dL 3.5-5.0 BILIRUBIN TOTAL (BEAKER) (test uecw=401) 5.7 mg/dL 0.2-1.2 BILIRUBIN DIRECT (BEAKER) (test ypbq=176) 2.8 mg/dL 0.1-0.5 ALKALINE PHOSPHATASE (BEAKER) (test pjlb=617) 134 U/L 40-150 AST (SGOT) (BEAKER) (test zknm=425) 93 U/L 5-34 ALT (SGPT) (BEAKER) (test zehf=642) 29 U/L 6-55 Specimen moderately ictericPROTHROMBIN [id number] 04:47:00 Test Item Value Reference Range Comments PROTIME (BEAKER) (test xdkw=137) 26.4 seconds 11.9-14.2 INR (BEAKER) (test brqj=633) 2.6 <=5.9 Effective 09/16/2018: PT Reference Range ChangeNew: 11.9-14.2 Previous: 11.7- 14.7RECOMMENDED COUMADIN/WARFARIN INR THERAPY RANGESSTANDARD DOSE: 2.0-3.0 Includes: PROPHYLAXIS for venous thrombosis, systemic embolization; TREATMENT for venous thrombosis and/or pulmonary embolus.HIGH RISK: Target INR is2.5-3.5 for patients wiht mechanical heart valves.BASIC METABOLIC [id number] 06:00: 00 Test Item Value Reference Range Comments SODIUM (BEAKER) (test 133 meq/L 136-145 mybl=681) POTASSIUM (BEAKER) (test 3.9 meq/L 3.5-5.1 tkmt=313) CHLORIDE (BEAKER) (test 102 meq/L 98-107 lohn=758) CO2 (BEAKER) (test 27 meq/L 22-29 nswh=593) BLOOD UREA NITROGEN 9 mg/dL 7-21 (BEAKER) (test elpw=622) CREATININE (BEAKER) (test 0.73 mg/dL 0.57-1.25 jbqn=892) GLUCOSE RANDOM (BEAKER) 97 mg/dL 70-105 (test vjeh=246) CALCIUM (BEAKER) (test 8.9 mg/dL 8.4-10.2 coeq=638) EGFR (BEAKER) (test 113 mL/min/1.73 sq m ESTIMATED GFR IS NOT jghq=6168) ACCURATE CREATININE CLEARANCE IN PREDICTING GLOMERULAR FILTRATION RATE. ESTIMATED GFR IS NOT APPLICABLE FOR DIALYSIS PATIENTS. Specimen moderately ictericHEPATIC FUNCTION [id number] 06:00:00 Test Item Value Reference Range Comments TOTAL PROTEIN (BEAKER) (test pduk=807) 6.7 gm/dL 6.0-8.3 ALBUMIN (BEAKER) (test hovg=0092) 2.5 g/dL 3.5-5.0 BILIRUBIN TOTAL (BEAKER) (test ihvf=502) 5.4 mg/dL 0.2-1.2 BILIRUBIN DIRECT (BEAKER) (test mfzo=038) 2.8 mg/dL 0.1-0.5 ALKALINE PHOSPHATASE (BEAKER) (test fwvx=856) 132 U/L 40-150 AST (SGOT) (BEAKER) (test wdzo=178) 94 U/L 5-34 ALT (SGPT) (BEAKER) (test oicn=941) 29 U/L 6-55 Specimen moderately ictericPROTHROMBIN [id number] 05:47:00 Test Item Value Reference Range Comments PROTIME (BEAKER) (test qmti=893) 26.3 seconds 11.9-14.2 INR (BEAKER) (test wyfo=750) 2.6 <=5.9 Effective 09/16/2018: PT Reference Range ChangeNew: 11.9-14.2 Previous: 11.7- 14.7RECOMMENDED COUMADIN/WARFARIN INR THERAPY RANGESSTANDARD DOSE: 2.0-3.0 Includes: PROPHYLAXIS for venous thrombosis, systemic embolization; TREATMENT for venous thrombosis and/or pulmonary embolus.HIGH RISK: Target INR is2.5-3.5 for patients wiht mechanical heart valves.BLOOD [id number] 12:01:00 Test Item Value Reference Range Comments CULTURE (BEAKER) (test mrrk=0718) No growth in 5 days BLOOD [id number] 10:56:00 Test Item Value Reference Range Comments CULTURE (BEAKER) From Anaerobic Bottle Only (test hplt=4394) Same organism has been isolated from cultures(s) of the same body site within 3 days. Repeat identification and susceptibility testing performed only after consultation with the clinical microbiology laboratory.Refer to previous culture ofStaphylococcus aureus GRAM STAIN RESULT From anaerobic bottle (BEAKER) (test only: gram positive dznn=6085) cocci in clusters [id number] 03:57:00 Test Item Value Reference Range Comments MAGNESIUM (BEAKER) (test mavk=468) 1.8 mg/dL 1.6-2.6 BASIC METABOLIC [id number] 03:57:00 Test Item Value Reference Range Comments SODIUM (BEAKER) (test 130 meq/L 136-145 yeph=626) POTASSIUM (BEAKER) (test 3.7 meq/L 3.5-5.1 qpnw=454) CHLORIDE (BEAKER) (test 96 meq/L 98-107 ntcm=213) CO2 (BEAKER) (test 30 meq/L 22-29 njan=129) BLOOD UREA NITROGEN 8 mg/dL 7-21 (BEAKER) (test otqj=363) CREATININE (BEAKER) (test 0.73 mg/dL 0.57-1.25 yjgz=705) GLUCOSE RANDOM (BEAKER) 106 mg/dL 70-105 (test bier=269) CALCIUM (BEAKER) (test 8.4 mg/dL 8.4-10.2 hrok=620) EGFR (BEAKER) (test 113 mL/min/1.73 sq m ESTIMATED GFR IS NOT xksy=2903) ACCURATE CREATININE CLEARANCE IN PREDICTING GLOMERULAR FILTRATION RATE. ESTIMATED GFR IS NOT APPLICABLE FOR DIALYSIS PATIENTS. Specimen moderately ictericHEPATIC FUNCTION [id number] 03:57:00 Test Item Value Reference Range Comments TOTAL PROTEIN (BEAKER) (test oqbr=351) 7.1 gm/dL 6.0-8.3 ALBUMIN (BEAKER) (test gsre=9561) 2.6 g/dL 3.5-5.0 BILIRUBIN TOTAL (BEAKER) (test gaja=774) 5.4 mg/dL 0.2-1.2 BILIRUBIN DIRECT (BEAKER) (test qpah=934) 2.9 mg/dL 0.1-0.5 ALKALINE PHOSPHATASE (BEAKER) (test jxzw=587) 135 U/L 40-150 AST (SGOT) (BEAKER) (test afur=160) 97 U/L 5-34 ALT (SGPT) (BEAKER) (test hecs=858) 28 U/L 6-55 Specimen moderately ictericPROTHROMBIN [id number] 03:52:00 Test Item Value Reference Range Comments PROTIME (BEAKER) (test jtos=575) 25.6 seconds 11.9-14.2 INR (BEAKER) (test ostj=065) 2.5 <=5.9 Effective 09/16/2018: PT Reference Range ChangeNew: 11.9-14.2 Previous: 11.7- 14.7RECOMMENDED COUMADIN/WARFARIN INR THERAPY RANGESSTANDARD DOSE: 2.0-3.0 Includes: PROPHYLAXIS for venous thrombosis, systemic embolization; TREATMENT for venous thrombosis and/or pulmonary embolus.HIGH RISK: Target INR is2.5-3.5 for patients wiht mechanical heart valves.POCT-GLUCOSE [id number] 22:57:00 Test Item Value Reference Range Comments POC-GLUCOSE METER (BEAKER) 124 mg/dL 70-110 TESTED AT [facility] [address] (test rgqb=2654) [facility] [address] [id number] 07:46:00 Test Item Value Reference Range Comments PHOSPHORUS (BEAKER) (test etsm=101) 2.5 mg/dL 2.3-4.7 [id number] 07:46:00 Test Item Value Reference Range Comments MAGNESIUM (BEAKER) (test ssyp=321) 1.8 mg/dL 1.6-2.6 BASIC METABOLIC [id number] 07:46:00 Test Item Value Reference Range Comments SODIUM (BEAKER) (test 131 meq/L 136-145 ndxz=907) POTASSIUM (BEAKER) (test 3.3 meq/L 3.5-5.1 qcfk=226) CHLORIDE (BEAKER) (test 89 meq/L 98-107 ffsr=008) CO2 (BEAKER) (test 38 meq/L 22-29 zqks=707) BLOOD UREA NITROGEN 9 mg/dL 7-21 (BEAKER) (test spsq=046) CREATININE (BEAKER) (test 0.73 mg/dL 0.57-1.25 qykf=002) GLUCOSE RANDOM (BEAKER) 96 mg/dL 70-105 (test mycx=436) CALCIUM (BEAKER) (test 8.0 mg/dL 8.4-10.2 quej=189) EGFR (BEAKER) (test 113 mL/min/1.73 sq m ESTIMATED GFR IS NOT bzcd=5926) ACCURATE CREATININE CLEARANCE IN PREDICTING GLOMERULAR FILTRATION RATE. ESTIMATED GFR IS NOT APPLICABLE FOR DIALYSIS PATIENTS. Specimen moderately ictericHEPATIC FUNCTION [id number] 07:46:00 Test Item Value Reference Range Comments TOTAL PROTEIN (BEAKER) (test igkd=897) 6.9 gm/dL 6.0-8.3 ALBUMIN (BEAKER) (test mzzo=0833) 2.6 g/dL 3.5-5.0 BILIRUBIN TOTAL (BEAKER) (test efuw=406) 5.2 mg/dL 0.2-1.2 BILIRUBIN DIRECT (BEAKER) (test ksnx=862) 3.0 mg/dL 0.1-0.5 ALKALINE PHOSPHATASE (BEAKER) (test vtby=595) 138 U/L 40-150 AST (SGOT) (BEAKER) (test jngg=652) 82 U/L 5-34 ALT (SGPT) (BEAKER) (test gbdv=629) 26 U/L 6-55 Specimen moderately ictericPROTHROMBIN [id number] 06:49:00 Test Item Value Reference Range Comments PROTIME (BEAKER) (test uezy=230) 26.2 seconds 11.9-14.2 INR (BEAKER) (test sttr=717) 2.5 <=5.9 Effective 09/16/2018: PT Reference Range ChangeNew: 11.9-14.2 Previous: 11.7- 14.7RECOMMENDED COUMADIN/WARFARIN INR THERAPY RANGESSTANDARD DOSE: 2.0-3.0 Includes: PROPHYLAXIS for venous thrombosis, systemic embolization; TREATMENT for venous thrombosis and/or pulmonary embolus.HIGH RISK: Target INR is2.5-3.5 for patients wiht mechanical heart valves.CBC W/PLT COUNT & AUTO [id number] 06:46:00 Test Item Value Reference Range Comments WHITE BLOOD CELL COUNT (BEAKER) (test czou=651) 5.8 K/ L 3.5-10.5 RED BLOOD CELL COUNT (BEAKER) (test eucb=629) 2.23 M/ L 4.63-6.08 HEMOGLOBIN (BEAKER) (test wyxw=570) 8.0 GM/DL 13.7-17.5 HEMATOCRIT (BEAKER) (test glcm=820) 23.7 % 40.1-51.0 MEAN CORPUSCULAR VOLUME (BEAKER) (test gwsm=048) 106.3 fL 79.0-92.2 MEAN CORPUSCULAR HEMOGLOBIN (BEAKER) (test 35.9 pg 25.7-32.2 fydk=563) MEAN CORPUSCULAR HEMOGLOBIN CONC (BEAKER) (test 33.8 GM/DL 32.3-36.5 qdjl=000) RED CELL DISTRIBUTION WIDTH (BEAKER) (test 18.3 % 11.6-14.4 srgs=896) PLATELET COUNT (BEAKER) (test znyt=194) 68 K/CU MM 150-450 MEAN PLATELET VOLUME (BEAKER) (test vjvf=174) 10.7 fL 9.4-12.4 NUCLEATED RED BLOOD CELLS (BEAKER) (test 0 /100 WBC 0-0 jwzn=597) NEUTROPHILS RELATIVE PERCENT (BEAKER) (test 69 % zilt=034) LYMPHOCYTES RELATIVE PERCENT (BEAKER) (test 15 % ruci=892) MONOCYTES RELATIVE PERCENT (BEAKER) (test 9 % cnss=669) EOSINOPHILS RELATIVE PERCENT (BEAKER) (test 5 % away=682) BASOPHILS RELATIVE PERCENT (BEAKER) (test 1 % txjz=397) NEUTROPHILS ABSOLUTE COUNT (BEAKER) (test 4.04 K/ L 1.78-5.38 gnti=993) LYMPHOCYTES ABSOLUTE COUNT (BEAKER) (test 0.85 K/ L 1.32-3.57 ujwv=834) MONOCYTES ABSOLUTE COUNT (BEAKER) (test fchq=453) 0.54 K/ L 0.30-0.82 EOSINOPHILS ABSOLUTE COUNT (BEAKER) (test 0.29 K/ L 0.04-0.54 lqol=011) BASOPHILS ABSOLUTE COUNT (BEAKER) (test docx=129) 0.03 K/ L 0.01-0.08 IMMATURE GRANULOCYTES-RELATIVE PERCENT (BEAKER) 2 % 0-1 (test yndg=6005) CALCIUM, [id number] 06:38:00 Test Item Value Reference Range Comments CALCIUM IONIZED (BEAKER) (test auyt=387) 1.04 mmol/L 1.12-1.27 PH, BLOOD (BEAKER) (test fmfc=8373) 7.47 MISCELLANEOUS LAB [id number] 07:42:00 Test Item Value Reference Range Comments SCAN RESULT (test ikie=[id number]) [id number] 07:25:00 Test Item Value Reference Range Comments T3 TOTAL (BEAKER) (test qvtu=477) 45 ng/dL 48-159 [id number] 05:16:00 Test Item Value Reference Range Comments PHOSPHORUS (BEAKER) (test qcgn=832) 2.9 mg/dL 2.3-4.7 [id number] 05:16:00 Test Item Value Reference Range Comments MAGNESIUM (BEAKER) (test gmgz=985) 1.3 mg/dL 1.6-2.6 BASIC METABOLIC [id number] 05:16:00 Test Item Value Reference Range Comments SODIUM (BEAKER) (test 132 meq/L 136-145 dcff=506) POTASSIUM (BEAKER) (test 3.4 meq/L 3.5-5.1 nctu=386) CHLORIDE (BEAKER) (test 92 meq/L 98-107 lgai=094) CO2 (BEAKER) (test 35 meq/L 22-29 juva=991) BLOOD UREA NITROGEN 11 mg/dL 7-21 (BEAKER) (test cypn=778) CREATININE (BEAKER) (test 0.79 mg/dL 0.57-1.25 vasg=569) GLUCOSE RANDOM (BEAKER) 100 mg/dL 70-105 (test zjax=209) CALCIUM (BEAKER) (test 8.0 mg/dL 8.4-10.2 qzet=429) EGFR (BEAKER) (test 103 mL/min/1.73 sq m ESTIMATED GFR IS NOT cbix=0780) ACCURATE CREATININE CLEARANCE IN PREDICTING GLOMERULAR FILTRATION RATE. ESTIMATED GFR IS NOT APPLICABLE FOR DIALYSIS PATIENTS. Specimen moderately ictericHEPATIC FUNCTION [id number] 05:16:00 Test Item Value Reference Range Comments TOTAL PROTEIN (BEAKER) (test jlsp=688) 6.8 gm/dL 6.0-8.3 ALBUMIN (BEAKER) (test wmbx=5724) 2.7 g/dL 3.5-5.0 BILIRUBIN TOTAL (BEAKER) (test iqrs=965) 5.5 mg/dL 0.2-1.2 BILIRUBIN DIRECT (BEAKER) (test knbx=867) 3.2 mg/dL 0.1-0.5 ALKALINE PHOSPHATASE (BEAKER) (test emov=699) 139 U/L 40-150 AST (SGOT) (BEAKER) (test npbg=111) 71 U/L 5-34 ALT (SGPT) (BEAKER) (test otnk=061) 25 U/L 6-55 Specimen moderately ictericPROTHROMBIN [id number] 04:50:00 Test Item Value Reference Range Comments PROTIME (BEAKER) (test lroo=508) 26.4 seconds 11.9-14.2 INR (BEAKER) (test jcav=061) 2.6 <=5.9 Effective 09/16/2018: PT Reference Range ChangeNew: 11.9-14.2 Previous: 11.7- 14.7RECOMMENDED COUMADIN/WARFARIN INR THERAPY RANGESSTANDARD DOSE: 2.0-3.0 Includes: PROPHYLAXIS for venous thrombosis, systemic embolization; TREATMENT for venous thrombosis and/or pulmonary embolus.HIGH RISK: Target INR is2.5-3.5 for patients wiht mechanical heart valves.CBC W/PLT COUNT & AUTO [id number] 04:46:00 Test Item Value Reference Range Comments WHITE BLOOD CELL COUNT (BEAKER) (test urcw=802) 6.1 K/ L 3.5-10.5 RED BLOOD CELL COUNT (BEAKER) (test cbzj=614) 2.15 M/ L 4.63-6.08 HEMOGLOBIN (BEAKER) (test touf=894) 7.9 GM/DL 13.7-17.5 HEMATOCRIT (BEAKER) (test jnai=588) 22.6 % 40.1-51.0 MEAN CORPUSCULAR VOLUME (BEAKER) (test xkat=228) 105.1 fL 79.0-92.2 MEAN CORPUSCULAR HEMOGLOBIN (BEAKER) (test 36.7 pg 25.7-32.2 rejb=608) MEAN CORPUSCULAR HEMOGLOBIN CONC (BEAKER) (test 35.0 GM/DL 32.3-36.5 ojzk=916) RED CELL DISTRIBUTION WIDTH (BEAKER) (test 18.6 % 11.6-14.4 pbra=720) PLATELET COUNT (BEAKER) (test mkuq=894) 58 K/CU MM 150-450 MEAN PLATELET VOLUME (BEAKER) (test qqpu=148) 10.0 fL 9.4-12.4 NUCLEATED RED BLOOD CELLS (BEAKER) (test 0 /100 WBC 0-0 wnyf=243) NEUTROPHILS RELATIVE PERCENT (BEAKER) (test 62 % qznf=507) LYMPHOCYTES RELATIVE PERCENT (BEAKER) (test 19 % xsbu=321) MONOCYTES RELATIVE PERCENT (BEAKER) (test 10 % ckdx=338) EOSINOPHILS RELATIVE PERCENT (BEAKER) (test 6 % ximj=671) BASOPHILS RELATIVE PERCENT (BEAKER) (test 1 % qtcc=385) NEUTROPHILS ABSOLUTE COUNT (BEAKER) (test 3.77 K/ L 1.78-5.38 szce=238) LYMPHOCYTES ABSOLUTE COUNT (BEAKER) (test 1.16 K/ L 1.32-3.57 hjfv=748) MONOCYTES ABSOLUTE COUNT (BEAKER) (test ovcp=148) 0.61 K/ L 0.30-0.82 EOSINOPHILS ABSOLUTE COUNT (BEAKER) (test 0.35 K/ L 0.04-0.54 cmqs=697) BASOPHILS ABSOLUTE COUNT (BEAKER) (test ylut=227) 0.03 K/ L 0.01-0.08 IMMATURE GRANULOCYTES-RELATIVE PERCENT (BEAKER) 3 % 0-1 (test tqmz=7691) CALCIUM, [id number] 04:35:00 Test Item Value Reference Range Comments CALCIUM IONIZED (BEAKER) (test dggf=952) 1.02 mmol/L 1.12-1.27 PH, BLOOD (BEAKER) (test kmtx=7286) 7.48 URINALYSIS W/ [id number] 14:32:00 Test Item Value Reference Range Comments COLOR (BEAKER) (test mqqk=958) Yellow CLARITY (BEAKER) (test lzlt=243) Clear SPECIFIC GRAVITY UA (BEAKER) (test uguj=303) 1.007 1.001-1.035 PH UA (BEAKER) (test xddj=828) 5.0 5.0-8.0 PROTEIN UA (BEAKER) (test rfed=483) Negative Negative GLUCOSE UA (BEAKER) (test nklw=557) Negative Negative KETONES UA (BEAKER) (test cbsm=994) Negative Negative BILIRUBIN UA (BEAKER) (test ensy=589) Negative Negative BLOOD UA (BEAKER) (test nwgy=540) Negative Negative NITRITE UA (BEAKER) (test ijiu=621) Negative Negative LEUKOCYTE ESTERASE UA (BEAKER) (test uawi=561) Trace Negative UROBILINOGEN UA (BEAKER) (test jhwq=283) 0.2 mg/dL 0.2-1.0 RBC UA (BEAKER) (test plae=793) 1 /HPF WBC UA (BEAKER) (test kumu=593) 5 /HPF MUCUS (BEAKER) (test svfo=2925) Rare HYALINE CASTS (BEAKER) (test fwqq=421) 3 /LPF SOURCE(BEAKER) (test lzhk=0648) CYTOMEGALOVIRUS ANTIBODY, [id number] 09:27:00 Test Item Value Reference Range Comments CYTOMEGALOVIRUS, IGG (BEAKER) (test hahb=5099) Positive Negative, Equivocal CMV IgG Result Interpretation: </=0.8 Al Negative 0.9-1.0 Al Equivocal &gt ;/=1.1 Al PositiveHSV 1 AND 2 [id number] 09:27:00 Test Item Value Reference Range Comments HERPES SIMPLEX VIRUS-1 IGG (BEAKER) (test bkbd=5822) > Al <0.9 HERPES SIMPLES VIRUS-2 IGG (BEAKER) (test qzrt=3024) < Al <0.9 Herpes Simplex Virus 1 IgG Result Interpretation: <0.9 Al Normal 0.9- 1.0 Al Equivocal >/=1.1 Al PositiveHerpes Simplex Virus 2 IgG Result Interpretation <0.9 Al Normal 0.9-1.0 Al Equivocal >/=1.1 Al PositiveVARICELLA ZOSTER ANTIBODY, [id number] 09:27:00 Test Item Value Reference Range Comments VARICELLA ZOSTER IGG (AL) (BEAKER) (test ypbt=1334) 4.7 VARICELLA ZOSTER RESULT INTERPRETATIONS: <=0.8 Al Nonreactive: Presumed non-immune to VZV 0.9-1.0 Al Equivocal >=1.1 Al Reactive: Presumed immune to VZVRUBELLA ANTIBODY, [id number] 09:27:00 Test Item Value Reference Range Comments RUBELLA IGG QUANTITATION (BEAKER) (test bmdc=495) 62.0 IU/mL <8.0 Rubella IgG Result Interpretation: </=7.0 IU/mL Negative - Presumed non- immune 8.0 - 9.9 IU/mL Equivocal >=10.0 IU/mL Positive - Presumed immuneEBV ANTIBODY, [id number] 09:27:00 Test Item Value Reference Range Comments JOSEPH LAMAR VIRAL CAPSID ANTIGEN IGG (BEAKER) Positive Negative, Equivocal (test aggl=4172) Joseph Lamar Viral Capsid Antigen IgG Result Interpretation: </=0.8 Al Negative 0.9-1.0 Al Equivocal >/=1.1 Al PositiveMISCELLANEOUS LAB [id number] 07:31:00 Test Item Value Reference Range Comments SCAN RESULT (test htsr=[id number]) CALCIUM, [id number] 06:50:00 Test Item Value Reference Range Comments CALCIUM IONIZED (BEAKER) (test nduz=104) 1.05 mmol/L 1.12-1.27 PH, BLOOD (BEAKER) (test yghv=8811) 7.47 [id number] 06:44:00 Test Item Value Reference Range Comments PHOSPHORUS (BEAKER) (test hcbt=961) 2.8 mg/dL 2.3-4.7 [id number] 06:44:00 Test Item Value Reference Range Comments MAGNESIUM (BEAKER) (test stvk=662) 1.3 mg/dL 1.6-2.6 COMPREHENSIVE METABOLIC [id number] 06:44:00 Test Item Value Reference Range Comments TOTAL PROTEIN (BEAKER) 7.3 gm/dL 6.0-8.3 (test wvyx=184) ALBUMIN (BEAKER) (test 3.0 g/dL 3.5-5.0 fouz=1830) ALKALINE PHOSPHATASE 142 U/L 40-150 (BEAKER) (test gmtd=754) BILIRUBIN TOTAL (BEAKER) 7.1 mg/dL 0.2-1.2 (test izzb=786) SODIUM (BEAKER) (test 136 meq/L 136-145 mvce=482) POTASSIUM (BEAKER) (test 3.2 meq/L 3.5-5.1 wxvc=873) CHLORIDE (BEAKER) (test 96 meq/L 98-107 tidc=739) CO2 (BEAKER) (test 33 meq/L 22-29 skux=276) BLOOD UREA NITROGEN 10 mg/dL 7-21 (BEAKER) (test gdau=023) CREATININE (BEAKER) (test 0.79 mg/dL 0.57-1.25 ffge=627) GLUCOSE RANDOM (BEAKER) 92 mg/dL 70-105 (test kqdq=164) CALCIUM (BEAKER) (test 9.0 mg/dL 8.4-10.2 wwxx=546) AST (SGOT) (BEAKER) (test 63 U/L 5-34 zlvr=081) ALT (SGPT) (BEAKER) (test 26 U/L 6-55 lyzx=623) EGFR (BEAKER) (test 103 mL/min/1.73 sq ESTIMATED GFR IS NOT hwet=7677) m ACCURATE CREATININE CLEARANCE IN PREDICTING GLOMERULAR FILTRATION RATE. ESTIMATED GFR IS NOT APPLICABLE FOR DIALYSIS PATIENTS. Specimen moderately ictericHEPATIC FUNCTION [id number] 06:44:00 Test Item Value Reference Range Comments TOTAL PROTEIN (BEAKER) (test hhbf=058) 7.3 gm/dL 6.0-8.3 ALBUMIN (BEAKER) (test ntxk=8402) 3.0 g/dL 3.5-5.0 BILIRUBIN TOTAL (BEAKER) (test oaqt=176) 7.1 mg/dL 0.2-1.2 BILIRUBIN DIRECT (BEAKER) (test ibfm=625) 3.7 mg/dL 0.1-0.5 ALKALINE PHOSPHATASE (BEAKER) (test vipl=901) 142 U/L 40-150 AST (SGOT) (BEAKER) (test emzc=964) 63 U/L 5-34 ALT (SGPT) (BEAKER) (test ueia=424) 26 U/L 6-55 Specimen moderately ictericPROTHROMBIN [id number] 06:32:00 Test Item Value Reference Range Comments PROTIME (BEAKER) (test nait=074) 25.8 seconds 11.9-14.2 INR (BEAKER) (test oukh=534) 2.5 <=5.9 Effective 09/16/2018: PT Reference Range ChangeNew: 11.9-14.2 Previous: 11.7- 14.7RECOMMENDED COUMADIN/WARFARIN INR THERAPY RANGESSTANDARD DOSE: 2.0-3.0 Includes: PROPHYLAXIS for venous thrombosis, systemic embolization; TREATMENT for venous thrombosis and/or pulmonary embolus.HIGH RISK: Target INR is2.5-3.5 for patients wiht mechanical heart valves.CALCIUM, [id number] 06:29:00 Test Item Value Reference Range Comments CALCIUM IONIZED (BEAKER) (test odka=255) 1.05 mmol/L 1.12-1.27 PH, BLOOD (BEAKER) (test jtsu=5045) 7.47 CBC W/PLT COUNT & AUTO [id number] 06:24:00 Test Item Value Reference Range Comments WHITE BLOOD CELL COUNT (BEAKER) (test thcg=847) 7.7 K/ L 3.5-10.5 RED BLOOD CELL COUNT (BEAKER) (test msba=408) 2.43 M/ L 4.63-6.08 HEMOGLOBIN (BEAKER) (test tbcg=160) 8.8 GM/DL 13.7-17.5 HEMATOCRIT (BEAKER) (test lzex=306) 25.5 % 40.1-51.0 MEAN CORPUSCULAR VOLUME (BEAKER) (test bmgh=881) 104.9 fL 79.0-92.2 MEAN CORPUSCULAR HEMOGLOBIN (BEAKER) (test 36.2 pg 25.7-32.2 divb=912) MEAN CORPUSCULAR HEMOGLOBIN CONC (BEAKER) (test 34.5 GM/DL 32.3-36.5 pjdc=263) RED CELL DISTRIBUTION WIDTH (BEAKER) (test 18.6 % 11.6-14.4 uwet=381) PLATELET COUNT (BEAKER) (test dkkz=924) 66 K/CU MM 150-450 MEAN PLATELET VOLUME (BEAKER) (test hcav=480) 10.2 fL 9.4-12.4 NUCLEATED RED BLOOD CELLS (BEAKER) (test 0 /100 WBC 0-0 lfli=150) NEUTROPHILS RELATIVE PERCENT (BEAKER) (test 62 % zkrr=691) LYMPHOCYTES RELATIVE PERCENT (BEAKER) (test 17 % nyjk=506) MONOCYTES RELATIVE PERCENT (BEAKER) (test 9 % pmax=275) EOSINOPHILS RELATIVE PERCENT (BEAKER) (test 6 % zzwr=229) BASOPHILS RELATIVE PERCENT (BEAKER) (test 1 % buzi=962) NEUTROPHILS ABSOLUTE COUNT (BEAKER) (test 4.76 K/ L 1.78-5.38 yljf=135) LYMPHOCYTES ABSOLUTE COUNT (BEAKER) (test 1.34 K/ L 1.32-3.57 dpwn=004) MONOCYTES ABSOLUTE COUNT (BEAKER) (test dvhi=111) 0.72 K/ L 0.30-0.82 EOSINOPHILS ABSOLUTE COUNT (BEAKER) (test 0.43 K/ L 0.04-0.54 agra=248) BASOPHILS ABSOLUTE COUNT (BEAKER) (test dppm=331) 0.04 K/ L 0.01-0.08 IMMATURE GRANULOCYTES-RELATIVE PERCENT (BEAKER) 5 % 0-1 (test xhml=3758) BLOOD GAS, [id number] 17:27:00 Test Item Value Reference Range Comments PH ARTERIAL (BEAKER) (test arsc=041) 7.50 7.35-7.45 PCO2 ARTERIAL (BEAKER) (test rwgb=444) 36 mmHg 35-45 PO2 ARTERIAL (BEAKER) (test qmxx=158) 68 mmHg 80-90 O2 SATURATION ARTERIAL (BEAKER) (test zdlq=387) 95.5 % 96.0-97.0 HCO3 ARTERIAL (BEAKER) (test behy=698) 27 mmol/L 21-29 BASE EXCESS ARTERIAL (BEAKER) (test pflf=044) 3.8 mmol/L -2.0-3.0 PATIENT TEMPERATURE (BEAKER) (test mjfq=5213) 36.4 C FIO2 (BEAKER) (test sxqk=6693) 21.0 % BLOOD [id number] 13:20:00 Test Item Value Reference Range Comments CULTURE (BEAKER) (test STAPHYLOCOCCUS AUREUS From Aerobic And myue=4205) Anaerobic Bottles Staphylococcus aureus Clindamycin (test code=10) Erythromycin (test code=4) Linezolid (test code=40) Nitrofurantoin (test code=23) Oxacillin (test code=14) Rifampin (test code=43) Tetracycline (test code=2) Trimethoprim + Sulfamethoxazole (test code=47) Vancomycin (test code=13) GRAM STAIN RESULT From aerobic and (BEAKER) (test txqj=6760) anaerobic bottles: gram positive cocci in clusters [id number] 07:17:00 Test Item Value Reference Range Comments PHOSPHORUS (BEAKER) (test nbwj=762) 2.2 mg/dL 2.3-4.7 [id number] 07:17:00 Test Item Value Reference Range Comments MAGNESIUM (BEAKER) (test rzya=433) 1.9 mg/dL 1.6-2.6 BASIC METABOLIC [id number] 07:17:00 Test Item Value Reference Range Comments SODIUM (BEAKER) (test 134 meq/L 136-145 bwum=514) POTASSIUM (BEAKER) (test 3.6 meq/L 3.5-5.1 vcib=779) CHLORIDE (BEAKER) (test 102 meq/L 98-107 qgmg=989) CO2 (BEAKER) (test 27 meq/L 22-29 vlju=100) BLOOD UREA NITROGEN 12 mg/dL 7-21 (BEAKER) (test avfb=218) CREATININE (BEAKER) (test 0.77 mg/dL 0.57-1.25 mgur=987) GLUCOSE RANDOM (BEAKER) 103 mg/dL 70-105 (test mqxm=164) CALCIUM (BEAKER) (test 8.8 mg/dL 8.4-10.2 dxdo=249) EGFR (BEAKER) (test 106 mL/min/1.73 sq m ESTIMATED GFR IS NOT axkp=5273) ACCURATE CREATININE CLEARANCE IN PREDICTING GLOMERULAR FILTRATION RATE. ESTIMATED GFR IS NOT APPLICABLE FOR DIALYSIS PATIENTS. Specimen moderately ictericHEPATIC FUNCTION [id number] 07:17:00 Test Item Value Reference Range Comments TOTAL PROTEIN (BEAKER) (test zwon=116) 6.9 gm/dL 6.0-8.3 ALBUMIN (BEAKER) (test avsn=1673) 2.8 g/dL 3.5-5.0 BILIRUBIN TOTAL (BEAKER) (test pwzo=835) 7.7 mg/dL 0.2-1.2 BILIRUBIN DIRECT (BEAKER) (test tzdz=315) 3.8 mg/dL 0.1-0.5 ALKALINE PHOSPHATASE (BEAKER) (test ojye=235) 133 U/L 40-150 AST (SGOT) (BEAKER) (test gdfg=738) 49 U/L 5-34 ALT (SGPT) (BEAKER) (test peuj=897) 24 U/L 6-55 Specimen moderately ictericVANCOMYCIN LEVEL, [id number] 07:06:00 Test Item Value Reference Range Comments VANCOMYCIN TROUGH (BEAKER) (test giby=049) < ug/mL 10.0-20.0 B-TYPE NATRIURETIC FACTOR (BNP)2018-12-15 06:46:00 Test Item Value Reference Range Comments B-TYPE NATRIURETIC PEPTIDE (BEAKER) (test 582 pg/mL 0-100 dekl=034) CBC W/PLT COUNT & AUTO [id number] 06:29:00 Test Item Value Reference Range Comments WHITE BLOOD CELL COUNT (BEAKER) (test bahz=734) 8.2 K/ L 3.5-10.5 RED BLOOD CELL COUNT (BEAKER) (test cprg=623) 2.42 M/ L 4.63-6.08 HEMOGLOBIN (BEAKER) (test unwp=524) 8.6 GM/DL 13.7-17.5 HEMATOCRIT (BEAKER) (test ttmp=783) 26.1 % 40.1-51.0 MEAN CORPUSCULAR VOLUME (BEAKER) (test arqv=032) 107.9 fL 79.0-92.2 MEAN CORPUSCULAR HEMOGLOBIN (BEAKER) (test 35.5 pg 25.7-32.2 kijo=523) MEAN CORPUSCULAR HEMOGLOBIN CONC (BEAKER) (test 33.0 GM/DL 32.3-36.5 iqnm=010) RED CELL DISTRIBUTION WIDTH (BEAKER) (test 18.9 % 11.6-14.4 kmbm=100) PLATELET COUNT (BEAKER) (test tgcx=780) 58 K/CU MM 150-450 MEAN PLATELET VOLUME (BEAKER) (test hmhz=363) 10.0 fL 9.4-12.4 NUCLEATED RED BLOOD CELLS (BEAKER) (test 0 /100 WBC 0-0 qxni=780) NEUTROPHILS RELATIVE PERCENT (BEAKER) (test 67 % qcxl=940) LYMPHOCYTES RELATIVE PERCENT (BEAKER) (test 16 % jnzy=711) MONOCYTES RELATIVE PERCENT (BEAKER) (test 8 % rlca=973) EOSINOPHILS RELATIVE PERCENT (BEAKER) (test 4 % hjhu=708) BASOPHILS RELATIVE PERCENT (BEAKER) (test 1 % obuq=703) NEUTROPHILS ABSOLUTE COUNT (BEAKER) (test 5.45 K/ L 1.78-5.38 qzxd=006) LYMPHOCYTES ABSOLUTE COUNT (BEAKER) (test 1.34 K/ L 1.32-3.57 kvld=076) MONOCYTES ABSOLUTE COUNT (BEAKER) (test drek=930) 0.63 K/ L 0.30-0.82 EOSINOPHILS ABSOLUTE COUNT (BEAKER) (test 0.32 K/ L 0.04-0.54 ogsd=297) BASOPHILS ABSOLUTE COUNT (BEAKER) (test jjym=560) 0.06 K/ L 0.01-0.08 IMMATURE GRANULOCYTES-RELATIVE PERCENT (BEAKER) 4 % 0-1 (test sjhe=6884) PROTHROMBIN [id number] 06:28:00 Test Item Value Reference Range Comments PROTIME (BEAKER) (test lwve=271) 26.9 seconds 11.9-14.2 INR (BEAKER) (test yhvl=260) 2.7 <=5.9 Effective 09/16/2018: PT Reference Range ChangeNew: 11.9-14.2 Previous: 11.7- 14.7RECOMMENDED COUMADIN/WARFARIN INR THERAPY RANGESSTANDARD DOSE: 2.0-3.0 Includes: PROPHYLAXIS for venous thrombosis, systemic embolization; TREATMENT for venous thrombosis and/or pulmonary embolus.HIGH RISK: Target INR is2.5-3.5 for patients wiht mechanical heart valves.CALCIUM, [id number] 06:15:00 Test Item Value Reference Range Comments CALCIUM IONIZED (BEAKER) (test jiao=563) 1.15 mmol/L 1.12-1.27 PH, BLOOD (BEAKER) (test ygbc=3964) 7.37 CBC W/PLT COUNT & AUTO [id number] 12:04:00 Test Item Value Reference Range Comments WHITE BLOOD CELL COUNT (BEAKER) (test cxyg=290) 9.6 K/ L 3.5-10.5 RED BLOOD CELL COUNT (BEAKER) (test oklg=731) 2.24 M/ L 4.63-6.08 HEMOGLOBIN (BEAKER) (test bzkq=703) 8.1 GM/DL 13.7-17.5 HEMATOCRIT (BEAKER) (test mxaj=115) 23.8 % 40.1-51.0 MEAN CORPUSCULAR VOLUME (BEAKER) (test dyly=554) 106.3 fL 79.0-92.2 MEAN CORPUSCULAR HEMOGLOBIN (BEAKER) (test 36.2 pg 25.7-32.2 atmq=967) MEAN CORPUSCULAR HEMOGLOBIN CONC (BEAKER) (test 34.0 GM/DL 32.3-36.5 toie=470) RED CELL DISTRIBUTION WIDTH (BEAKER) (test 19.3 % 11.6-14.4 fdvw=795) PLATELET COUNT (BEAKER) (test rqyj=700) 54 K/CU MM 150-450 MEAN PLATELET VOLUME (BEAKER) (test mjzk=347) 10.6 fL 9.4-12.4 NUCLEATED RED BLOOD CELLS (BEAKER) (test 0 /100 WBC 0-0 husx=460) (CELLAVISION MANUAL DIFF)2018-12-14 12:04:00 Test Item Value Reference Range Comments NEUTROPHILS - REL (CELLAVISION)(BEAKER) (test 85 % jffe=9915) LYMPHOCYTES - REL (CELLAVISION)(BEAKER) (test 5 % cnoi=8454) MONOCYTES - REL (CELLAVISION)(BEAKER) (test 10 % zcpq=3841) NEUTROPHILS - ABS (CELLAVISION)(BEAKER) (test 8.16 K/ul 1.78-5.38 okrq=5592) LYMPHOCYTES - ABS (CELLAVISION)(BEAKER) (test 0.48 K/ul 1.32-3.57 hakn=1901) MONOCYTES - ABS (CELLAVISION)(BEAKER) (test 0.96 K/uL 0.30-0.82 gsoy=4668) TOTAL COUNTED (BEAKER) (test flqq=4123) 100 WBC MORPHOLOGY (BEAKER) (test wtoj=770) Normal PLT MORPHOLOGY (BEAKER) (test teqm=458) Normal ANISOCYTOSIS (BEAKER) (test ssaa=248) 1+ few MACROCYTES (BEAKER) (test pifp=001) 1+ few POIKILOCYTES (BEAKER) (test oxzn=311) 1+ few ARTIFACT (CELLAVISION)(BEAKER) (test kzwz=5533) Present PLATELET CONCENTRATION (CELLAVISION)(BEAKER) (test Decreased idtj=4733) Received comment: User comments: Slide comments:BLOOD [id number] 11:53:00 Test Item Value Reference Range Comments CULTURE (BEAKER) From Aerobic And Anaerobic (test pgtk=9146) Bottles Same organism has been isolated from cultures(s) of the same body site within 3 days. Repeat identification and susceptibility testing performed only after consultation with the clinical microbiology laboratory.Refer to previous culture ofStaphylococcus aureus GRAM STAIN RESULT From aerobic and (BEAKER) (test anaerobic bottles: psmf=8703) gram positive cocci in clusters PROTHROMBIN [id number] 10:54:00 Test Item Value Reference Range Comments PROTIME (BEAKER) (test mnwi=113) 25.1 seconds 11.9-14.2 INR (BEAKER) (test keug=476) 2.4 <=5.9 Effective 09/16/2018: PT Reference Range ChangeNew: 11.9-14.2 Previous: 11.7- 14.7RECOMMENDED COUMADIN/WARFARIN INR THERAPY RANGESSTANDARD DOSE: 2.0-3.0 Includes: PROPHYLAXIS for venous thrombosis, systemic embolization; TREATMENT for venous thrombosis and/or pulmonary embolus.HIGH RISK: Target INR is2.5-3.5 for patients wiht mechanical heart valves.HEPATIC FUNCTION [id number] 09:19 :00 Test Item Value Reference Range Comments TOTAL PROTEIN (BEAKER) (test vvfo=447) 6.8 gm/dL 6.0-8.3 ALBUMIN (BEAKER) (test kfxv=0819) 2.9 g/dL 3.5-5.0 BILIRUBIN TOTAL (BEAKER) (test rlba=477) 7.4 mg/dL 0.2-1.2 BILIRUBIN DIRECT (BEAKER) (test eaqx=751) 3.6 mg/dL 0.1-0.5 ALKALINE PHOSPHATASE (BEAKER) (test fbut=109) 136 U/L 40-150 AST (SGOT) (BEAKER) (test lfmt=711) 49 U/L 5-34 ALT (SGPT) (BEAKER) (test sbcw=329) 23 U/L 6-55 Specimen moderately ictericC-REACTIVE [id number] 07:28:00 Test Item Value Reference Range Comments C-REACTIVE PROTEIN (BEAKER) (test ajie=978) 5.83 mg/dL 0.00-0.50 [id number] 07:03:00 Test Item Value Reference Range Comments PHOSPHORUS (BEAKER) (test cqro=236) 2.0 mg/dL 2.3-4.7 [id number] 07:03:00 Test Item Value Reference Range Comments MAGNESIUM (BEAKER) (test ewyv=615) 2.1 mg/dL 1.6-2.6 BASIC METABOLIC [id number] 07:03:00 Test Item Value Reference Range Comments SODIUM (BEAKER) (test 131 meq/L 136-145 jswv=913) POTASSIUM (BEAKER) (test 4.3 meq/L 3.5-5.1 ipgi=201) CHLORIDE (BEAKER) (test 103 meq/L 98-107 orwu=101) CO2 (BEAKER) (test 24 meq/L 22-29 djow=993) BLOOD UREA NITROGEN 21 mg/dL 7-21 (BEAKER) (test ogmc=092) CREATININE (BEAKER) (test 0.79 mg/dL 0.57-1.25 wkck=959) GLUCOSE RANDOM (BEAKER) 96 mg/dL 70-105 (test pkpl=928) CALCIUM (BEAKER) (test 8.6 mg/dL 8.4-10.2 vsij=944) EGFR (BEAKER) (test 103 mL/min/1.73 sq m ESTIMATED GFR IS NOT cqbu=2750) ACCURATE CREATININE CLEARANCE IN PREDICTING GLOMERULAR FILTRATION RATE. ESTIMATED GFR IS NOT APPLICABLE FOR DIALYSIS PATIENTS. Specimen moderately ictericLIPID [id number] 07:03:00 Test Item Value Reference Range Comments TRIGLYCERIDES (BEAKER) (test dzxn=006) 62 mg/dL CHOLESTEROL (BEAKER) (test jnah=641) 89 mg/dL HDL CHOLESTEROL (BEAKER) (test rowp=579) 6 mg/dL LDL CHOLESTEROL CALCULATED (BEAKER) (test xmyt=717) 71 mg/dL Triglyceride Reference Range: Low Risk <150 Borderline 150- 199 High Risk 200-499 Very High Risk >=500Cholesterol Reference Range: Low Risk <200 Borderline 200-239 High Risk > 240HDL Cholesterol Reference Range: Low Risk >=60 High Risk <40LDL Cholesterol Reference Range: Optimal <100 Near Optimal 100-129 Borderline 130-159 High 160-189 Very High >=190 Specimen moderatelyictericCALCIUM, [id number] 06:23:00 Test Item Value Reference Range Comments CALCIUM IONIZED (BEAKER) (test kkwl=706) 1.09 mmol/L 1.12-1.27 PH, BLOOD (BEAKER) (test viox=7327) 7.49 U/S, RENAL WITH [id number] 02:05:00Reason for exam:->erica, 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 Color and spectral Doppler examination of the renal vasculature. FINDINGS: Examination secondary to patient breathing.Right kidney: Size: Parenchyma by 5.3 x 4.6 cm. Parenchyma: Normal echogenicity. No cysts. No stones. The known renal artery aneurysm is not identified on this examination. Hydronephrosis: None. Left kidney: Size: 12.6 x 4.6 x 5.7 cm. Parenchyma : Normal echogenicity. No cysts. No stones. Hydronephrosis: None. Renal Vasculature: Doppler interrogation reveals preserved vascular flow in the main renal arteries and veins bilaterally. Urinary bladder: Unremarkable. Color Doppler and spectral ultrasound imaging:Patent main renal artery and vein bilaterally. PSV right: 88.5 cm/sec PSV left: 0.6 cm/sec PSV ratio right: 0.5 to PSV ratio left: 0.43 Acceleration times: Normal. Resistive Indices, Right: Upper: 0.60 Middle: 0.74 Lower: 0.72 Resistive Indices, Left: Upper: 0.67 Middle: 0.7 Lower: 0.7 Additional Findings: None. IMPRESSION:Examination secondary to patient breathing. Unremarkable sonographic examination of the kidneys. 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 Normal renal vasculature. No sonographic evidence for renal artery stenosis. Signed: Michael Haile VerifiedDate/Time: 12/14/2018 02:05:57 RAD , SHOULDER, COMPLETE (MIN 2 VIEWS), [id number] 17:15:00Reason for exam:-&gt ;shoulder painFINAL REPORT TECHNIQUE: Internal/external rotation and scapular-Y views of the right shoulder. INDICATION: 53-year-old man with shoulder pain. COMPARISON: None. FINDINGS:No acutefractures or dislocations.Rotation at the glenohumeral joint is maintained.Joint spaces are within normal limits.Questionable central pulmonary venous congestion in the visualized right lung.Soft tissues are grossly unremarkable. IMPRESSION:No acute osseous abnormalities of the right shoulder. Questionable central pulmonary venous congestion in the visualized right lung. Chest radiograph may be obtained for further evaluation. Signed: Starr Rodas MDReport Verified Date/Time: 12/13/2018 17:15:55Reading Location: [address] Body Reading Room CBC W/PLT COUNT & AUTO [id number] 09:49:00 Test Item Value Reference Range Comments WHITE BLOOD CELL COUNT (BEAKER) (test caxt=286) 8.4 K/ L 3.5-10.5 RED BLOOD CELL COUNT (BEAKER) (test ajie=505) 2.39 M/ L 4.63-6.08 HEMOGLOBIN (BEAKER) (test mmxr=436) 8.5 GM/DL 13.7-17.5 HEMATOCRIT (BEAKER) (test knku=921) 25.1 % 40.1-51.0 MEAN CORPUSCULAR VOLUME (BEAKER) (test crlt=998) 105.0 fL 79.0-92.2 MEAN CORPUSCULAR HEMOGLOBIN (BEAKER) (test 35.6 pg 25.7-32.2 oafj=864) MEAN CORPUSCULAR HEMOGLOBIN CONC (BEAKER) (test 33.9 GM/DL 32.3-36.5 uqev=698) RED CELL DISTRIBUTION WIDTH (BEAKER) (test 19.2 % 11.6-14.4 ogtp=335) PLATELET COUNT (BEAKER) (test gast=236) 55 K/CU MM 150-450 MEAN PLATELET VOLUME (BEAKER) (test wdsp=159) 10.7 fL 9.4-12.4 NUCLEATED RED BLOOD CELLS (BEAKER) (test 0 /100 WBC 0-0 vdhp=331) (CELLAVISION MANUAL DIFF)2018-12-13 09:49:00 Test Item Value Reference Range Comments NEUTROPHILS - REL (CELLAVISION)(BEAKER) (test 86 % nhlm=8141) LYMPHOCYTES - REL (CELLAVISION)(BEAKER) (test 4 % wwhm=7106) MONOCYTES - REL (CELLAVISION)(BEAKER) (test 8 % kbuk=3234) METAMYELOCYTES - REL (CELLAVISION)(BEAKER) (test 1 % 0-0 kjyq=8696) BANDS - REL (CELLAVISION)(BEAKER) (test 1 % 0-10 iqmy=7046) NEUTROPHILS - ABS (CELLAVISION)(BEAKER) (test 7.22 K/ul 1.78-5.38 afqr=9431) LYMPHOCYTES - ABS (CELLAVISION)(BEAKER) (test 0.34 K/ul 1.32-3.57 exsj=7052) MONOCYTES - ABS (CELLAVISION)(BEAKER) (test 0.67 K/uL 0.30-0.82 frds=5912) METAMYELOCYTES - ABS (CELLAVISION)(BEAKER) (test 0.08 K/uL 0.00-0.00 btzz=8685) BANDS - ABS (CELLAVISION)(BEAKER) (test 0.08 K/uL 0.00-0.80 ttnb=2462) TOTAL COUNTED (BEAKER) (test modv=7839) 100 RBC MORPHOLOGY (BEAKER) (test tnke=188) Normal WBC MORPHOLOGY (BEAKER) (test zjno=579) Normal PLT MORPHOLOGY (BEAKER) (test klks=926) Normal POLYCHROMATOPHILLIC RBCS(BEAKER) (test nocv=438) 1+ few HYPOCHROMIA (BEAKER) (test uxua=843) 2+ moderate TARGET CELLS (BEAKER) (test eljp=155) 1+ few ARTIFACT (CELLAVISION)(BEAKER) (test zydk=6336) Present PLATELET CONCENTRATION (CELLAVISION)(BEAKER) Decreased (test eknh=8618) Received comment: User comments: Slide comments:RAD, CHEST, 1 VIEW, NON [id number] 09:11:00Reason for exam:->edemaShould this be performed at the bedside ?->YesFINAL REPORT AP view of the chest dated 2018 COMPARISON: October 14, 2018 CLINICAL INFORMATION: edema Comment: Heart is in upper limits of normal in size. Pulmonary vasculature is unremarkable. Lungs are clear. No pulmonary infiltrate or pleural effusion is present. Impression: No interval change. Signed: Lamont Mayberry MDReport Verified Date/Time: 2018 09:11:32 Reading Location: [address] Ortho Consult Reading Room OSMOLALITY, [id number] 08:43:00 Test Item Value Reference Range Comments OSMOLALITY URINE (BEAKER) (test ctmk=206) 559 mOsm/kg 40-1,400 CALCIUM, [id number] 08:37:00 Test Item Value Reference Range Comments CALCIUM IONIZED (BEAKER) (test djqh=665) 1.07 mmol/L 1.12-1.27 PH, BLOOD (BEAKER) (test ocir=7253) 7.41 T4, [id number] 07:21:00 Test Item Value Reference Range Comments FREE T4 (BEAKER) (test zvaz=374) 0.82 ng/dL 0.70-1.48 SODIUM, RANDOM [id number] 07:10:00 Test Item Value Reference Range Comments SODIUM URINE (BEAKER) (test aakz=225) < meq/L Reference Range: No NormalsCREATININE, RANDOM [id number] 07:09:00 Test Item Value Reference Range Comments CREATININE URINE (BEAKER) (test rlgi=019) 103.6 mg/dL Reference Range: No NormalsPROTEIN, RANDOM [id number] 07:09:00 Test Item Value Reference Range Comments PROTEIN, URINE (BEAKER) (test kpew=6723) 15 mg/dL 0-14 TSH/FREE T4 IF [id number] 06:44:00 Test Item Value Reference Range Comments THYROID STIMULATING HORMONE (BEAKER) (test 0.21 uIU/mL 0.35-4.94 pced=937) URINALYSIS W/ [id number] 06:37:00 Test Item Value Reference Range Comments COLOR (BEAKER) (test mcdd=316) Yellow CLARITY (BEAKER) (test sbnt=008) Clear SPECIFIC GRAVITY UA (BEAKER) (test phpb=718) 1.016 1.001-1.035 PH UA (BEAKER) (test yvme=381) 5.5 5.0-8.0 PROTEIN UA (BEAKER) (test zcst=661) Negative Negative GLUCOSE UA (BEAKER) (test rbud=723) Negative Negative KETONES UA (BEAKER) (test gajj=746) Negative Negative BILIRUBIN UA (BEAKER) (test hyit=068) Negative Negative BLOOD UA (BEAKER) (test psbc=712) Negative Negative NITRITE UA (BEAKER) (test maki=011) Negative Negative LEUKOCYTE ESTERASE UA (BEAKER) (test pfsd=948) Trace Negative UROBILINOGEN UA (BEAKER) (test ylzv=093) 2.0 mg/dL 0.2-1.0 RBC UA (BEAKER) (test wvkr=573) 2 /HPF WBC UA (BEAKER) (test ivca=739) 3 /HPF BACTERIA (BEAKER) (test wtud=113) Rare MUCUS (BEAKER) (test snpe=2919) Rare HYALINE CASTS (BEAKER) (test qgnd=164) 11 /LPF GRANULAR CASTS (BEAKER) (test zzgm=175) 8 /LPF AMORPHOUS CRYSTALS (BEAKER) (test smzb=9174) Occasional SOURCE(BEAKER) (test tlog=6247) B-TYPE NATRIURETIC FACTOR (BNP)2018-12-13 06:31:00 Test Item Value Reference Range Comments B-TYPE NATRIURETIC PEPTIDE (BEAKER) (test 705 pg/mL 0-100 wdbd=757) [id number] 06:29:00 Test Item Value Reference Range Comments PHOSPHORUS (BEAKER) (test visx=558) 2.9 mg/dL 2.3-4.7 [id number] 06:29:00 Test Item Value Reference Range Comments MAGNESIUM (BEAKER) (test psxq=442) 2.3 mg/dL 1.6-2.6 LIPID [id number] 06:29:00 Test Item Value Reference Range Comments TRIGLYCERIDES (BEAKER) (test lzsx=996) 65 mg/dL CHOLESTEROL (BEAKER) (test uger=533) 99 mg/dL HDL CHOLESTEROL (BEAKER) (test yxbi=523) 6 mg/dL LDL CHOLESTEROL CALCULATED (BEAKER) (test sgdx=247) 80 mg/dL Triglyceride Reference Range: Low Risk <150 Borderline 150- 199 High Risk 200-499 Very High Risk >=500Cholesterol Reference Range: Low Risk <200 Borderline 200-239 High Risk > 240HDL Cholesterol Reference Range: Low Risk >=60 High Risk <40LDL Cholesterol Reference Range: Optimal <100 Near Optimal 100-129 Borderline 130-159 High 160-189 Very High >=190 Specimen moderatelyictericCOMPREHENSIVE METABOLIC [id number] 06:29:00 Test Item Value Reference Range Comments TOTAL PROTEIN (BEAKER) 6.9 gm/dL 6.0-8.3 (test ydtl=513) ALBUMIN (BEAKER) (test 2.5 g/dL 3.5-5.0 oxkn=7901) ALKALINE PHOSPHATASE 152 U/L 40-150 (BEAKER) (test nzwk=426) BILIRUBIN TOTAL (BEAKER) 6.8 mg/dL 0.2-1.2 (test vjqo=211) SODIUM (BEAKER) (test 132 meq/L 136-145 meak=144) POTASSIUM (BEAKER) (test 4.3 meq/L 3.5-5.1 fcrr=990) CHLORIDE (BEAKER) (test 105 meq/L 98-107 gkdr=120) CO2 (BEAKER) (test 22 meq/L 22-29 evqi=494) BLOOD UREA NITROGEN 42 mg/dL 7-21 (BEAKER) (test frpf=232) CREATININE (BEAKER) (test 1.31 mg/dL 0.57-1.25 vozq=364) GLUCOSE RANDOM (BEAKER) 109 mg/dL 70-105 (test wlhz=303) CALCIUM (BEAKER) (test 8.2 mg/dL 8.4-10.2 mcwe=630) AST (SGOT) (BEAKER) (test 55 U/L 5-34 fkqk=892) ALT (SGPT) (BEAKER) (test 29 U/L 6-55 bbwo=091) EGFR (BEAKER) (test 57 mL/min/1.73 sq m ESTIMATED GFR IS NOT jtwd=8327) ACCURATE CREATININE CLEARANCE IN PREDICTING GLOMERULAR FILTRATION RATE. ESTIMATED GFR IS NOT APPLICABLE FOR DIALYSIS PATIENTS. Specimen moderately ictericHEPATIC FUNCTION [id number] 06:29:00 Test Item Value Reference Range Comments TOTAL PROTEIN (BEAKER) (test rzmi=288) 6.9 gm/dL 6.0-8.3 ALBUMIN (BEAKER) (test wtrg=4239) 2.5 g/dL 3.5-5.0 BILIRUBIN TOTAL (BEAKER) (test uryr=934) 6.8 mg/dL 0.2-1.2 BILIRUBIN DIRECT (BEAKER) (test ptah=861) 4.0 mg/dL 0.1-0.5 ALKALINE PHOSPHATASE (BEAKER) (test jzfy=597) 152 U/L 40-150 AST (SGOT) (BEAKER) (test xsek=451) 55 U/L 5-34 ALT (SGPT) (BEAKER) (test cqhj=633) 29 U/L 6-55 Specimen moderately ictericCREATINE KINASE (CK)2018-12-13 06:29:00 Test Item Value Reference Range Comments CREATINE KINASE TOTAL (BEAKER) (test mxsp=629) 60 U/L 29-200 [id number] 06:21:00 Test Item Value Reference Range Comments ETHANOL (BEAKER) (test erkq=051) < mg/dL <=10 OCCULT BLOOD, [id number] 05:39:00 Test Item Value Reference Range Comments FECAL OCCULT BLOOD (BEAKER) (test xjnl=183) Negative Negative U/S, ABDOMINAL, [id number] 05:28:00Reason for exam:->ascitesFINAL REPORT INDICATION: ascites COMPARISON: None. TECHNIQUE: Real-time transabdominal pradhan scale ultrasound of the abdomen. IMPRESSION: No intra-abdominal ascites. Signed: Michael Haile Verified Date/Time : 12/13/2018 05:28:07 [employer] IdeasLOWintermute CULTURE IDENTIFICATION [id number] 15:25:00 Test Item Value Reference Range Comments LISTERIA MONOCYTOGENES Not detected Not detected (test vlcw=0313020) STAPHYLOCOCCUS (test Detected Not detected zrhv=9062561) STAPHYLOCOCCUS AUREUS Detected Not detected Methicillin-susceptible S. (test cznh=3855376) aureus (MSSA)First-line therapy: Cefazolin or Oxacillin (Oxacillin preferred if OPERATING ROOM COORDINATOR involvement) ID CONSULTATION REQUIREDStaphylococcus aureus DETECTEDMecA NOT DETECTED Reference Range: Not Detected STREPTOCOCCUS (test Not detected Not detected ptfh=8048313) STREPTOCOCCUS AGALACTIAE Not detected Not detected (GROUP B) (test nwvh=7496860) STREPTOCOCCUS PNEUMONIAE Not detected Not detected (test zzez=8680115) STREPTOCOCCUS PYOGENES Not detected Not detected (GROUP A) (test zufy=1942155) ACINETOBACTER BAUMANNII Not detected Not detected (test ebdx=6852535) HAEMOPHILUS INFLUENZAE Not detected Not detected (test zaag=9787138) NEISSERIA MENINGITIDIS Not detected Not detected (test tvpv=7786018) ENTEROBACTERIACEAE (test Not detected Not detected qvqq=9301893) ENTEROBACTER CLOACOE Not detected Not detected COMPLEX (test pakx=0521208) KLEBSIELLA OXYTOCA (test Not detected Not detected ebht=4928768) KLEBSIELLA PNEUMONIAE Not detected Not detected (test rsuh=6422) PROTEUS (test Not detected Not detected itby=9848929) SERRATIA MARCESCENS (test Not detected Not detected pdkr=9279568) ELSA ALBICANS (test Not detected Not detected bywj=1771178) ELSA GLABRATA (test Not detected Not detected nufb=7412950) ELSA KRUSEI (test Not detected Not detected publ=1003821) ELSA PARAPSILOSIS (test Not detected Not detected arwa=4265516) ELSA TROPICALIS (test Not detected Not detected fuwn=1381921) ESCHERICHIA COLI (test Not detected Not detected chft=7646680) METHICILLIN-RESISTANCE Not detected Not detected GENE (test rrhm=6952421) VANCOMYCIN-RESISTANCE GENE (test dvux=7231720) CARBAPENEM-RESISTANCE GENE (test zdrb=1255003) ENTEROCOCCUS-BEAKER (test Not detected Not detected qsbz=3760336) PSEUDOMONAS Not detected Not detected AERUGINOSA-BEAKER (test mehl=6632596) Other bacteria and resistance markers not targeted by this PCR panel cannot be excluded; therefore clinical correlation and follow up of serology, culture results, and other molecular studies is required. The results are not intended to be used as the sole means for clinical diagnosis or patient management decisions. This sample was tested at the [facility] using the [email or web address] Blood Culture ID Panel. It is FDA cleared and has been verified and approved by the [facility] for clinical use. This laboratory is CLIA-certified and College ofAmerican Pathologists (CAP)-accredited to perform high complexity testing.CBC W/PLT COUNT & AUTO [id number] 13:57:00 Test Item Value Reference Range Comments WHITE BLOOD CELL COUNT (BEAKER) (test fsxu=777) 7.6 K/ L 3.5-10.5 RED BLOOD CELL COUNT (BEAKER) (test iqru=761) 2.39 M/ L 4.63-6.08 HEMOGLOBIN (BEAKER) (test jdmt=055) 8.7 GM/DL 13.7-17.5 HEMATOCRIT (BEAKER) (test aqfh=288) 25.5 % 40.1-51.0 MEAN CORPUSCULAR VOLUME (BEAKER) (test tstu=188) 106.7 fL 79.0-92.2 MEAN CORPUSCULAR HEMOGLOBIN (BEAKER) (test 36.4 pg 25.7-32.2 rzze=285) MEAN CORPUSCULAR HEMOGLOBIN CONC (BEAKER) (test 34.1 GM/DL 32.3-36.5 jvee=487) RED CELL DISTRIBUTION WIDTH (BEAKER) (test 19.9 % 11.6-14.4 flwb=426) PLATELET COUNT (BEAKER) (test llzb=293) 47 K/CU MM 150-450 MEAN PLATELET VOLUME (BEAKER) (test eooe=505) 11.5 fL 9.4-12.4 NUCLEATED RED BLOOD CELLS (BEAKER) (test 0 /100 WBC 0-0 vwio=541) (MANUAL DIFFERENTIAL)2018-12-12 13:57:00 Test Item Value Reference Range Comments NEUTROPHILS - REL (DIFF) (BEAKER) (test 61 % qqaf=2349) LYMPHOCYTES - REL (DIFF) (BEAKER) (test 5 % wkbq=6241) MONOCYTES - REL (DIFF) (BEAKER) (test npmy=3166) 7 % EOSINOPHILS - REL (DIFF) (BEAKER) (test 2 % krbq=2253) BANDS - REL (DIFF) (BEAKER) (test sewn=2574) 25 % 0-10 NEUTROPHILS - ABS (DIFF) (BEAKER) (test 4.64 K/ L 1.80-8.00 qddo=1535) LYMPHOCYTES - ABS (DIFF) (BEAKER) (test 0.38 K/ L 1.48-4.50 djbl=0350) MONOCYTES - ABS (DIFF) (BEAKER) (test sbot=7088) 0.53 K/ L 0.00-1.30 EOSINOPHILS - ABS (DIFF) (BEAKER) (test 0.15 K/ L 0.00-0.50 dydh=0180) BANDS-ABS (DIFF) (BEAKER) (test nruf=3810) 1.9 K/ L 0.0-0.8 TOTAL COUNTED (BEAKER) (test qpwh=8667) 100 BANDS + SEGMENTED NEUTROPHILS (BEAKER) (test 6.54 vjqj=0801) WBC MORPHOLOGY (BEAKER) (test zgmh=934) Normal PLT MORPHOLOGY (BEAKER) (test oaqf=780) Normal ANISOCYTOSIS (BEAKER) (test udyu=448) 2+ moderate ASHLEY CELLS (BEAKER) (test aali=030) 1+ few HYPOCHROMIA (BEAKER) (test miln=386) 1+ few MACROCYTES (BEAKER) (test jofd=434) 2+ moderate MICROCYTES (BEAKER) (test ykjs=613) 1+ few OVALOCYTES (BEAKER) (test bnlu=110) 1+ few POIKILOCYTES (BEAKER) (test uueq=158) 1+ few POLYCHROMATOPHILLIC RBCS(BEAKER) (test ipnk=124) 1+ few CT, BRAIN, WITHOUT [id number] 13:12:00FINAL REPORT CT, BRAIN, WITHOUT CONTRAST INDICATION: Ataxia, stroke suspectedTECHNIQUE: Noncontrast axial imaging was obtained from the vertex to the skull base. Axial images were reconstructed using a bone algorithm. DOSE REDUCTION: Dose modulation, iterative reconstruction, and/or weight-based adjustment of the mA/kV was utilized to reduce the radiation dose to as low as reasonably achievable. COMPARISON: None. FINDINGS: Intracranial: Extensive foci of hypoattenuation within the periventricular and subcortical white matter are a nonspecific finding commonly attributed to chronic small vessel ischemic disease. Superimposed small acute infarct cannot be excluded by CT. No evidence of acute territorial infarct. No intracranial hemorrhage. Incidental left retrocerebellar cyst without significant mass effect. No hydrocephalus. Osseous structures: No fracture. No suspicious lesion. Paranasal sinuses and mastoid air cells: No evidence of sinusitis. Mastoids are clear. Orbitalcontents: Globes are intact. IMPRESSION: 1.No intracranial hemorrhage or acute territorial infarct.2.Extensive chronic microvascular changes. Please note that CT is insensitive for superimposed small acute infarct. If there is persistent clinical concern for intracranial pathology, MR examination is recommended for further characterization. Signed: Tesha Baezaepbrigitte Verified Date/Time: 12/12/2018 13:12:48 [id number] 08:41:00 Test Item Value Reference Range Comments MAGNESIUM (BEAKER) (test ngvq=552) 1.9 mg/dL 1.6-2.6 LIPID [id number] 08:41:00 Test Item Value Reference Range Comments TRIGLYCERIDES (BEAKER) (test mbrw=630) 68 mg/dL CHOLESTEROL (BEAKER) (test pvhs=883) 105 mg/dL HDL CHOLESTEROL (BEAKER) (test ywjk=750) 7 mg/dL LDL CHOLESTEROL CALCULATED (BEAKER) (test 84 mg/dL bkcq=593) Triglyceride Reference Range: Low Risk <150 Borderline 150- 199 High Risk 200-499 Very High Risk >=500Cholesterol Reference Range: Low Risk <200 Borderline 200-239 High Risk > 240HDL Cholesterol Reference Range: Low Risk >=60 High Risk <40LDL Cholesterol Reference Range: Optimal <100 Near Optimal 100-129 Borderline 130-159 High 160-189 Very High >=190 Specimen moderatelyictericLACTIC ACID, [id number] 07:54:00 Test Item Value Reference Range Comments LACTATE BLOOD VENOUS (2) (BEAKER) (test 1.1 mmol/L 0.5-2.2 xhyc=9601) Specimen moderately ictericBASIC METABOLIC [id number] 07:16:00 Test Item Value Reference Range Comments SODIUM (BEAKER) (test 129 meq/L 136-145 iaqi=945) POTASSIUM (BEAKER) (test 3.6 meq/L 3.5-5.1 opor=945) CHLORIDE (BEAKER) (test 101 meq/L 98-107 uvrw=301) CO2 (BEAKER) (test 19 meq/L 22-29 bgdm=104) BLOOD UREA NITROGEN 53 mg/dL 7-21 (BEAKER) (test bdid=557) CREATININE (BEAKER) (test 2.65 mg/dL 0.57-1.25 rezv=802) GLUCOSE RANDOM (BEAKER) 103 mg/dL 70-105 (test hlup=642) CALCIUM (BEAKER) (test 7.6 mg/dL 8.4-10.2 dznp=439) EGFR (BEAKER) (test 25 mL/min/1.73 sq m ESTIMATED GFR IS NOT rbpk=1591) ACCURATE CREATININE CLEARANCE IN PREDICTING GLOMERULAR FILTRATION RATE. ESTIMATED GFR IS NOT APPLICABLE FOR DIALYSIS PATIENTS. Specimen moderately [id number] 07:13:00 Test Item Value Reference Range Comments PHOSPHORUS (BEAKER) (test rybk=201) 4.2 mg/dL 2.3-4.7 HEPATIC FUNCTION [id number] 07:13:00 Test Item Value Reference Range Comments TOTAL PROTEIN (BEAKER) (test keiy=687) 6.3 gm/dL 6.0-8.3 ALBUMIN (BEAKER) (test bvbz=2194) 2.0 g/dL 3.5-5.0 BILIRUBIN TOTAL (BEAKER) (test ciyx=276) 6.2 mg/dL 0.2-1.2 BILIRUBIN DIRECT (BEAKER) (test ipbo=081) 4.0 mg/dL 0.1-0.5 ALKALINE PHOSPHATASE (BEAKER) (test fmet=677) 161 U/L 40-150 AST (SGOT) (BEAKER) (test iily=077) 61 U/L 5-34 ALT (SGPT) (BEAKER) (test hxbr=111) 29 U/L 6-55 Specimen moderately ictericPROTHROMBIN [id number] 05:25:00 Test Item Value Reference Range Comments PROTIME (BEAKER) (test bnfw=456) 25.8 seconds 11.9-14.2 INR (BEAKER) (test bnzf=976) 2.5 <=5.9 Effective 09/16/2018: PT Reference Range ChangeNew: 11.9-14.2 Previous: 11.7- 14.7RECOMMENDED COUMADIN/WARFARIN INR THERAPY RANGESSTANDARD DOSE: 2.0-3.0 Includes: PROPHYLAXIS for venous thrombosis, systemic embolization; TREATMENT for venous thrombosis and/or pulmonary embolus.HIGH RISK: Target INR is2.5-3.5 for patients wiht mechanical heart valves.BLOOD GAS, [id number] 05:16:00 Test Item Value Reference Range Comments PH VENOUS (BEAKER) (test ulfv=884) 7.44 7.32-7.42 PCO2 VENOUS (BEAKER) (test bqhy=160) 32 mmHg 41-51 PO2 VENOUS (BEAKER) (test hmbc=913) 59 mmHg 25-40 O2 SATURATION VENOUS (BEAKER) (test qdjq=124) 92.5 % 40.0-70.0 HCO3 VENOUS (BEAKER) (test icau=179) 21 mmol/L 21-29 BASE EXCESS VENOUS (BEAKER) (test cxft=822) -2.6 mmol/L -2.0-3.0 PATIENT TEMPERATURE (BEAKER) (test xenk=1109) 36.3 C FIO2 (BEAKER) (test shnh=7162) 21.0 % CBC W/PLT COUNT & AUTO [id number] 23:25:00 Test Item Value Reference Range Comments WHITE BLOOD CELL COUNT (BEAKER) (test qxwe=505) 7.7 K/ L 3.5-10.5 RED BLOOD CELL COUNT (BEAKER) (test anel=016) 2.55 M/ L 4.63-6.08 HEMOGLOBIN (BEAKER) (test zgdu=817) 9.3 GM/DL 13.7-17.5 HEMATOCRIT (BEAKER) (test rmoy=246) 27.2 % 40.1-51.0 MEAN CORPUSCULAR VOLUME (BEAKER) (test okau=696) 106.7 fL 79.0-92.2 MEAN CORPUSCULAR HEMOGLOBIN (BEAKER) (test 36.5 pg 25.7-32.2 pbey=214) MEAN CORPUSCULAR HEMOGLOBIN CONC (BEAKER) (test 34.2 GM/DL 32.3-36.5 mfhs=004) RED CELL DISTRIBUTION WIDTH (BEAKER) (test 19.6 % 11.6-14.4 aydu=662) PLATELET COUNT (BEAKER) (test qmey=582) 59 K/CU MM 150-450 MEAN PLATELET VOLUME (BEAKER) (test tucd=578) 11.5 fL 9.4-12.4 NUCLEATED RED BLOOD CELLS (BEAKER) (test 0 /100 WBC 0-0 rspe=682) (CELLAVISION MANUAL DIFF)2018-12-11 23:25:00 Test Item Value Reference Range Comments NEUTROPHILS - REL (CELLAVISION)(BEAKER) (test 90 % tnss=2007) LYMPHOCYTES - REL (CELLAVISION)(BEAKER) (test 1 % tagl=4126) MONOCYTES - REL (CELLAVISION)(BEAKER) (test 1 % tlmr=1356) EOSINOPHILS - REL (CELLAVISION)(BEAKER) (test 1 % ngrw=6811) BASOPHILS - REL (CELLAVISION)(BEAKER) (test 1 % zzks=2009) METAMYELOCYTES - REL (CELLAVISION)(BEAKER) (test 1 % 0-0 muah=0517) MYELOCYTES - REL (CELLAVISION)(BEAKER) (test 1 % 0-0 divb=4651) PROMYELOCYTES - REL (CELLAVSION)(BEAKER) (test 3 % 0-0 jfwo=9390) BANDS - REL (CELLAVISION)(BEAKER) (test 1 % 0-10 ueoa=6811) NEUTROPHILS - ABS (CELLAVISION)(BEAKER) (test 6.93 K/ul 1.78-5.38 rydb=0789) LYMPHOCYTES - ABS (CELLAVISION)(BEAKER) (test 0.08 K/ul 1.32-3.57 mwtf=1310) MONOCYTES - ABS (CELLAVISION)(BEAKER) (test 0.08 K/uL 0.30-0.82 etvm=4400) EOSINOPHILS - ABS (CELLAVISION)(BEAKER) (test 0.08 K/uL 0.04-0.54 zikt=6326) BASOPHILS - ABS (CELLAVISION)(BEAKER) (test 0.08 K/uL 0.01-0.08 gyrn=4525) METAMYELOCYTES - ABS (CELLAVISION)(BEAKER) (test 0.08 K/uL 0.00-0.00 ayyw=0006) MYELOCYTES-ABS (CELLAVISION)(BEAKER) (test 0.08 K/uL 0.00-0.00 ypoj=8703) PROMYELOCYTES - ABS (CELLAVISION)(BEAKER) (test 0.23 K/uL 0.00-0.00 jboj=3758) BANDS - ABS (CELLAVISION)(BEAKER) (test 0.08 K/uL 0.00-0.80 gqoq=4187) TOTAL COUNTED (BEAKER) (test kqpx=1688) 100 SMUDGE CELLS (BEAKER) (test mwfh=3345) Present GIANT PLATELETS (BEAKER) (test mdgd=925) Present POLYCHROMATOPHILLIC RBCS(BEAKER) (test bymo=252) 1+ few ANISOCYTOSIS (BEAKER) (test nhul=783) 3+ many MACROCYTES (BEAKER) (test oylh=587) 3+ many POIKILOCYTES (BEAKER) (test fojf=595) 1+ few SCHISTOCYTES (BEAKER) (test ycvr=271) 2+ moderate SPHEROCYTES (BEAKER) (test snpa=316) 1+ few ELLIPTOCYTES (BEAKER) (test wiic=655) 2+ moderate OVALOCYTES (BEAKER) (test efkl=103) 1+ few STOMATOCYTES (BEAKER) (test psmz=863) 1+ few ACANTHOCYTES (BEAKER) (test nqnd=513) 1+ few ARTIFACT (CELLAVISION)(BEAKER) (test hmir=7079) Present HELMET CELLS (CELLAVISION)(BEAKER) (test 1+ few mvyy=7224) PLATELET CONCENTRATION (CELLAVISION)(BEAKER) Decreased (test jurf=1715) Received comment: User comments: Slide comments:BASIC METABOLIC [id number] 23:18:00 Test Item Value Reference Range Comments SODIUM (BEAKER) (test 127 meq/L 136-145 uaeg=089) POTASSIUM (BEAKER) (test 3.9 meq/L 3.5-5.1 rsbc=423) CHLORIDE (BEAKER) (test 101 meq/L 98-107 ilmg=151) CO2 (BEAKER) (test 19 meq/L 22-29 qinj=257) BLOOD UREA NITROGEN 46 mg/dL 7-21 (BEAKER) (test uebm=115) CREATININE (BEAKER) (test 2.21 mg/dL 0.57-1.25 glsx=869) GLUCOSE RANDOM (BEAKER) 110 mg/dL 70-105 (test xqks=049) CALCIUM (BEAKER) (test 7.7 mg/dL 8.4-10.2 mpyf=011) EGFR (BEAKER) (test 31 mL/min/1.73 sq m ESTIMATED GFR IS NOT bztz=4092) ACCURATE CREATININE CLEARANCE IN PREDICTING GLOMERULAR FILTRATION RATE. ESTIMATED GFR IS NOT APPLICABLE FOR DIALYSIS PATIENTS. Specimen moderately ictericHEPATIC FUNCTION [id number] 23:02:00 Test Item Value Reference Range Comments TOTAL PROTEIN (BEAKER) (test zksj=244) 7.0 gm/dL 6.0-8.3 ALBUMIN (BEAKER) (test qmzn=9358) 2.1 g/dL 3.5-5.0 BILIRUBIN TOTAL (BEAKER) (test ashu=338) 7.0 mg/dL 0.2-1.2 BILIRUBIN DIRECT (BEAKER) (test agdo=688) 3.8 mg/dL 0.1-0.5 ALKALINE PHOSPHATASE (BEAKER) (test evvc=290) 165 U/L 40-150 AST (SGOT) (BEAKER) (test afdf=395) 61 U/L 5-34 ALT (SGPT) (BEAKER) (test dlsu=218) 30 U/L 6-55 Specimen moderately ictericHEMOGLOBIN [id number] 14:39:00 Test Item Value Reference Range Comments HEMOGLOBIN A1C (BEAKER) (test oncx=470) 4.0 % 4.3-6.1 MYOCARD IMAGING, MULTI, PHARM, [id number] 13:54:00FINAL REPORT PROCEDURE: MYOCARDIAL PERFUSION SPECT IMAGING (Rest/Stress)CPT CODE : [id number] INDICATION: Preoperative evaluation for liver transplantation CARDIOVASCULAR [...] Verified Date/Time: 10/15/2018 13:54 :29 Reading Location: [address] Reading Room CRYPTOCOCCAL [id number] 13:16:00 Test Item Value Reference Range Comments CRYPTOCOCCAL ANTIGEN, SERUM (BEAKER) (test Negative Negative, Interference srrr=5422) [id number] 13:16:00 Test Item Value Reference Range Comments RPR SCREEN (BEAKER) (test yhls=056) Nonreactive Nonreactive URINALYSIS W/ [id number] 11:42:00 Test Item Value Reference Range Comments COLOR (BEAKER) (test jxgi=470) Dark Yellow CLARITY (BEAKER) (test scum=959) Clear SPECIFIC GRAVITY UA (BEAKER) (test duhy=518) 1.019 1.001-1.035 PH UA (BEAKER) (test bzef=211) 5.5 5.0-8.0 PROTEIN UA (BEAKER) (test muyw=267) Negative Negative GLUCOSE UA (BEAKER) (test qcsv=968) Negative Negative KETONES UA (BEAKER) (test kkgo=973) Negative Negative BILIRUBIN UA (BEAKER) (test adxk=839) Negative Negative BLOOD UA (BEAKER) (test gjtn=325) Negative Negative NITRITE UA (BEAKER) (test drox=205) Negative Negative LEUKOCYTE ESTERASE UA (BEAKER) (test nvug=265) Negative Negative UROBILINOGEN UA (BEAKER) (test gbug=514) 3.0 mg/dL 0.2-1.0 RBC UA (BEAKER) (test ixdd=261) < /HPF WBC UA (BEAKER) (test qdof=094) 3 /HPF BACTERIA (BEAKER) (test kbsc=721) Rare MUCUS (BEAKER) (test qqig=4717) Occasional SOURCE(BEAKER) (test qlzl=5105) CYTOMEGALOVIRUS ANTIBODY, [id number] 10:44:00 Test Item Value Reference Range Comments CYTOMEGALOVIRUS, IGG (BEAKER) (test nzwx=3189) Positive Negative, Equivocal CMV IgG Result Interpretation: </=0.8 Al Negative 0.9-1.0 Al Equivocal &gt ;/=1.1 Al PositiveCYTOMEGALOVIRUS ANTIBODY, [id number] 10:44:00 Test Item Value Reference Range Comments CYTOMEGALOVIRUS IGM ANTIBODY (BEAKER) (test Equivocal Negative, Equivocal sdfo=6683) CMV IgM Result Interpretation: </=0.8 Al Negative 0.9-1.0 Al Equivocal >/=1.1 Al PositiveEBV ANTIBODY, [id number] 10:44:00 Test Item Value Reference Range Comments JOSEPH LAMAR VIRAL CAPSID ANTIGEN IGG (BEAKER) Positive Negative, Equivocal (test zkzp=8775) Joseph Lamar Viral Capsid Antigen IgG Result Interpretation: </=0.8 Al Negative 0.9-1.0 Al Equivocal >/=1.1 Al PositiveEBV ANTIBODY, [id number] 10:44:00 Test Item Value Reference Range Comments JOSEPH LAMAR VIRAL CAPSID ANTIGEN IGM (BEAKER) Negative Negative, Equivocal (test cqdd=6328) Joseph Lamar Viral Capsid Antigen IgM Result Interpretation: </=0.8 Al Negative 0.9-1.0 Al Equivocal >/=1.1 Al PositiveHEPATITIS B CORE ANTIBODY , [id number] 08:51:00 Test Item Value Reference Range Comments HEPATITIS B CORE IGM ANTIBODY (BEAKER) (test Nonreactive Nonreactive lzbx=812) HIV-1 ANTIGEN WITH HIV-1/2 [id number] 08:51:00 Test Item Value Reference Range Comments HIV-1 ANTIGEN WITH HIV 1\T\2 ANTIBODY (2) Nonreactive Nonreactive (BEAKER) (test heqf=2857) [id number] 08:49:00 Test Item Value Reference Range Comments PROSTATE SPECIFIC ANTIGEN (BEAKER) (test yvml=820) 0.0 ng/mL 0.0-4.0 CARCINOEMBRYONIC ANTIGEN (CEA)2018-10-15 08:47:00 Test Item Value Reference Range Comments CARCINOEMBRYONIC ANTIGEN (BEAKER) (test wcep=143) 12.8 ng/mL 0.0-5.0 HEPATITIS A ANTIBODY, [id number] 08:47:00 Test Item Value Reference Range Comments HEPATITIS A IGM ANTIBODY (BEAKER) (test Nonreactive Nonreactive madj=230) HEPATITIS B CORE ANTIBODY, [id number] 08:47:00 Test Item Value Reference Range Comments HEPATITIS B CORE TOTAL ANTIBODY (BEAKER) (test Nonreactive Nonreactive yauv=341) VITAMIN D, [id number] 08:45:00 Test Item Value Reference Range Comments VITAMIN D 25-OH (BEAKER) (test zdsy=0262) 8.9 ng/mL 6.6-49.9 Effective 01/29/2017: Reference Range ChangeNew: 6.6-49.9 ng/mL Previous: 13.0 -47.8 ng/mLRecommended Vitamin D Target Range: 30.0-40.0 ng/[id number] 08:26:00 Test Item Value Reference Range Comments MAGNESIUM (BEAKER) (test tzsd=328) 1.5 mg/dL 1.6-2.6 [id number] 08:26:00 Test Item Value Reference Range Comments PHOSPHORUS (BEAKER) (test nqhq=525) 3.9 mg/dL 2.3-4.7 URIC [id number] 08:26:00 Test Item Value Reference Range Comments URIC ACID (BEAKER) (test bbdb=613) 3.7 mg/dL 2.6-7.2 Specimen moderately ictericCOMPREHENSIVE METABOLIC [id number] 08:26:00 Test Item Value Reference Range Comments TOTAL PROTEIN (BEAKER) 7.7 gm/dL 6.0-8.3 (test fxxz=593) ALBUMIN (BEAKER) (test 2.2 g/dL 3.5-5.0 niqt=6712) ALKALINE PHOSPHATASE 165 U/L 40-150 (BEAKER) (test cdlc=207) BILIRUBIN TOTAL (BEAKER) 6.3 mg/dL 0.2-1.2 (test djcg=406) SODIUM (BEAKER) (test 135 meq/L 136-145 roez=332) POTASSIUM (BEAKER) (test 4.1 meq/L 3.5-5.1 wzgs=303) CHLORIDE (BEAKER) (test 105 meq/L 98-107 wxuq=578) CO2 (BEAKER) (test 27 meq/L 22-29 fmhf=617) BLOOD UREA NITROGEN 15 mg/dL 7-21 (BEAKER) (test yjju=675) CREATININE (BEAKER) (test 0.88 mg/dL 0.57-1.25 bbvy=701) GLUCOSE RANDOM (BEAKER) 84 mg/dL 70-105 (test ymyb=744) CALCIUM (BEAKER) (test 8.9 mg/dL 8.4-10.2 zgjk=821) AST (SGOT) (BEAKER) (test 125 U/L 5-34 gazd=667) ALT (SGPT) (BEAKER) (test 49 U/L 6-55 ktuj=862) EGFR (BEAKER) (test 91 mL/min/1.73 sq m ESTIMATED GFR IS NOT rilk=9210) ACCURATE CREATININE CLEARANCE IN PREDICTING GLOMERULAR FILTRATION RATE. ESTIMATED GFR IS NOT APPLICABLE FOR DIALYSIS PATIENTS. Specimen moderately ictericLIPID [id number] 08:26:00 Test Item Value Reference Range Comments TRIGLYCERIDES (BEAKER) (test odjg=381) 70 mg/dL CHOLESTEROL (BEAKER) (test wiyz=079) 121 mg/dL HDL CHOLESTEROL (BEAKER) (test tpef=187) 8 mg/dL LDL CHOLESTEROL CALCULATED (BEAKER) (test 99 mg/dL hvve=043) Triglyceride Reference Range: Low Risk <150 Borderline 150- 199 High Risk 200-499 Very High Risk >=500Cholesterol Reference Range: Low Risk <200 Borderline 200-239 High Risk > 240HDL Cholesterol Reference Range: Low Risk >=60 High Risk <40LDL Cholesterol Reference Range: Optimal <100 Near Optimal 100-129 Borderline 130-159 High 160-189 Very High >=190 Specimen moderatelyictericBILIRUBIN, [id number] 08:26:00 Test Item Value Reference Range Comments BILIRUBIN DIRECT (BEAKER) (test otgr=253) 3.6 mg/dL 0.1-0.5 GAMMA GLUTAMYL TRANSFERASE (GGT)2018-10-15 08:26:00 Test Item Value Reference Range Comments GAMMA GLUTAMYL TRANSFERASE (BEAKER) (test kdcn=907) 68 U/L 9-64 Specimen moderately [id number] 08:25:00 Test Item Value Reference Range Comments TRANSFERRIN (BEAKER) (test dkak=024) 106 mg/dL 174-382 Specimen moderately ictericIRON, TIBC, % SAT. (WITHOUT FERRITIN)2018-10-15 08:25 :00 Test Item Value Reference Range Comments IRON (BEAKER) (test vxfk=128) 134.0 ug/dL 40.0-160.0 TOTAL IRON BINDING CAPACITY (BEAKER) (test 133 ug/dL 250-450 ecgu=147) IRON % SATURATION (2) (BEAKER) (test xbpn=3652) 101 % 20-55 [id number] 08:22:00 Test Item Value Reference Range Comments ETHANOL (BEAKER) (test qhot=460) < mg/dL <=10 [id number] 08:14:00 Test Item Value Reference Range Comments FIBRINOGEN LEVEL (BEAKER) (test rhra=341) 201 mg/dl 225-434 [id number] 08:09:00 Test Item Value Reference Range Comments PARTIAL THROMBOPLASTIN TIME (BEAKER) (test 49.2 seconds 22.5-36.0 czhk=288) CALCIUM, [id number] 08:09:00 Test Item Value Reference Range Comments CALCIUM IONIZED (BEAKER) (test vbgw=000) 1.07 mmol/L 1.12-1.27 PH, BLOOD (BEAKER) (test xykx=7814) 7.44 PROTHROMBIN [id number] 08:08:00 Test Item Value Reference Range Comments PROTIME (BEAKER) (test joqm=193) 21.4 seconds 11.9-14.2 INR (BEAKER) (test tlqh=871) 2.0 <=5.9 Effective 09/16/2018: PT Reference Range ChangeNew: 11.9-14.2 Previous: 11.7- 14.7RECOMMENDED COUMADIN/WARFARIN INR THERAPY RANGESSTANDARD DOSE: 2.0-3.0 Includes: PROPHYLAXIS for venous thrombosis, systemic embolization; TREATMENT for venous thrombosis and/or pulmonary embolus.HIGH RISK: Target INR is2.5-3.5 for patients wiht mechanical heart valves.CBC W/PLT COUNT & AUTO [id number] 07:59:00 Test Item Value Reference Range Comments WHITE BLOOD CELL COUNT (BEAKER) (test jxbi=035) 5.4 K/ L 3.5-10.5 RED BLOOD CELL COUNT (BEAKER) (test jltf=327) 3.03 M/ L 4.63-6.08 HEMOGLOBIN (BEAKER) (test fegn=790) 11.0 GM/DL 13.7-17.5 HEMATOCRIT (BEAKER) (test cxio=728) 32.2 % 40.1-51.0 MEAN CORPUSCULAR VOLUME (BEAKER) (test imbi=384) 106.3 fL 79.0-92.2 MEAN CORPUSCULAR HEMOGLOBIN (BEAKER) (test 36.3 pg 25.7-32.2 nrne=824) MEAN CORPUSCULAR HEMOGLOBIN CONC (BEAKER) (test 34.2 GM/DL 32.3-36.5 ajlh=564) RED CELL DISTRIBUTION WIDTH (BEAKER) (test 14.7 % 11.6-14.4 oweo=865) PLATELET COUNT (BEAKER) (test jidy=797) 76 K/CU MM 150-450 MEAN PLATELET VOLUME (BEAKER) (test aehi=854) 11.8 fL 9.4-12.4 NUCLEATED RED BLOOD CELLS (BEAKER) (test 0 /100 WBC 0-0 rjxr=169) NEUTROPHILS RELATIVE PERCENT (BEAKER) (test 59 % plgu=213) LYMPHOCYTES RELATIVE PERCENT (BEAKER) (test 29 % zfkv=869) MONOCYTES RELATIVE PERCENT (BEAKER) (test 6 % krzn=618) EOSINOPHILS RELATIVE PERCENT (BEAKER) (test 4 % pmbh=555) BASOPHILS RELATIVE PERCENT (BEAKER) (test 1 % ruut=625) NEUTROPHILS ABSOLUTE COUNT (BEAKER) (test 3.19 K/ L 1.78-5.38 zzdb=478) LYMPHOCYTES ABSOLUTE COUNT (BEAKER) (test 1.58 K/ L 1.32-3.57 osow=346) MONOCYTES ABSOLUTE COUNT (BEAKER) (test zytc=538) 0.32 K/ L 0.30-0.82 EOSINOPHILS ABSOLUTE COUNT (BEAKER) (test 0.23 K/ L 0.04-0.54 mrbp=593) BASOPHILS ABSOLUTE COUNT (BEAKER) (test ryyh=058) 0.03 K/ L 0.01-0.08 IMMATURE GRANULOCYTES-RELATIVE PERCENT (BEAKER) 0 % 0-1 (test ypbe=7817) RAD, CHEST, 2 [id number] 13:28:00Reason for Exam:->Pre-transplant evaluation for liver transplantFINAL REPORT INDICATION: Pre-transplant evaluation for liver transplant COMPARISON: September 15, 2018 TECHNIQUE: Chest radiograph, two views, PA and lateral. FINDINGS / IMPRESSION: Lung volumes are normal and no pneumonia or pulmonary edema is demonstrated. Heart shadow normal in size. No pneumothorax or pleural effusion demonstrated. Osseous structures unremarkable. Signed: Gregorio Lott Verified Date/ Time: 10/14/2018 13:28:52 Reading Location: [address] Radiology Reading Room 01: 28 PMRAD, MANDIBLE, MIN 4 [id number] 12:14:00Reason for Exam:->Pre- transplant evaluation for liver [...] Gooden Verified Date/Time: 10/14/2018 12:14:27 Reading Location: [facility] Radiology Reading Room Electronically signed by: YAN GOODEN M.D. on 12:14 PMRAD, BONE DENSITY [id number] 12:10:00Reason for Exam:-> Pre-transplant evaluation for liver [...] the Z-score is -1.4. Signed: Juanita Watkins [facility] Verified Date/Time: 10/14/2018 12:10:27 Reading Location: [facility] Mammo Reading Room 12 :10 PMCBC W/PLT COUNT & AUTO [id number] 12:37:00 Test Item Value Reference Range Comments WHITE BLOOD CELL COUNT (BEAKER) (test vuto=337) 6.1 K/ L 3.5-10.5 RED BLOOD CELL COUNT (BEAKER) (test qxzj=144) 3.15 M/ L 4.63-6.08 HEMOGLOBIN (BEAKER) (test dmbk=661) 11.5 GM/DL 13.7-17.5 HEMATOCRIT (BEAKER) (test rihv=787) 34.6 % 40.1-51.0 MEAN CORPUSCULAR VOLUME (BEAKER) (test rhii=685) 109.8 fL 79.0-92.2 MEAN CORPUSCULAR HEMOGLOBIN (BEAKER) (test 36.5 pg 25.7-32.2 gqwl=528) MEAN CORPUSCULAR HEMOGLOBIN CONC (BEAKER) (test 33.2 GM/DL 32.3-36.5 hpuj=737) RED CELL DISTRIBUTION WIDTH (BEAKER) (test 15.4 % 11.6-14.4 ajpa=719) PLATELET COUNT (BEAKER) (test cdxw=713) 83 K/CU MM 150-450 MEAN PLATELET VOLUME (BEAKER) (test mmkk=749) 12.3 fL 9.4-12.4 NUCLEATED RED BLOOD CELLS (BEAKER) (test 0 /100 WBC 0-0 lchh=376) (CELLAVISION MANUAL DIFF)2018-10-05 12:37:00 Test Item Value Reference Range Comments NEUTROPHILS - REL (CELLAVISION)(BEAKER) (test 75 % jqil=1342) LYMPHOCYTES - REL (CELLAVISION)(BEAKER) (test 13 % kesl=3161) MONOCYTES - REL (CELLAVISION)(BEAKER) (test 12 % ppka=7451) EOSINOPHILS - REL (CELLAVISION)(BEAKER) (test 1 % cide=9103) NEUTROPHILS - ABS (CELLAVISION)(BEAKER) (test 4.58 K/ul 1.78-5.38 eojv=2036) LYMPHOCYTES - ABS (CELLAVISION)(BEAKER) (test 0.79 K/ul 1.32-3.57 msuf=7113) MONOCYTES - ABS (CELLAVISION)(BEAKER) (test 0.73 K/uL 0.30-0.82 oytw=3577) EOSINOPHILS - ABS (CELLAVISION)(BEAKER) (test 0.06 K/uL 0.04-0.54 fwmn=0285) TOTAL COUNTED (BEAKER) (test bwcj=6317) 100 WBC MORPHOLOGY (BEAKER) (test hlph=805) Normal PLT MORPHOLOGY (BEAKER) (test bxvx=500) Normal ANISOCYTOSIS (BEAKER) (test zkvy=430) 3+ many MACROCYTES (BEAKER) (test edlb=319) 3+ many ARTIFACT (CELLAVISION)(BEAKER) (test iaxc=8023) Present PLATELET CONCENTRATION (CELLAVISION)(BEAKER) (test Decreased oxus=3894) Received comment: User comments: Slide comments:BASIC METABOLIC [id number] 12:30:00 Test Item Value Reference Range Comments SODIUM (BEAKER) (test 135 meq/L 136-145 ekvt=970) POTASSIUM (BEAKER) (test 4.3 meq/L 3.5-5.1 nxyt=365) CHLORIDE (BEAKER) (test 103 meq/L 98-107 gszx=345) CO2 (BEAKER) (test 26 meq/L 22-29 fsgl=089) BLOOD UREA NITROGEN 9 mg/dL 7-21 (BEAKER) (test ocjd=798) CREATININE (BEAKER) (test 0.78 mg/dL 0.57-1.25 baxz=016) GLUCOSE RANDOM (BEAKER) 75 mg/dL 70-105 (test wnju=476) CALCIUM (BEAKER) (test 8.1 mg/dL 8.4-10.2 mpdo=442) EGFR (BEAKER) (test 105 mL/min/1.73 sq m ESTIMATED GFR IS NOT hkox=0155) ACCURATE CREATININE CLEARANCE IN PREDICTING GLOMERULAR FILTRATION RATE. ESTIMATED GFR IS NOT APPLICABLE FOR DIALYSIS PATIENTS. Specimen moderately ictericHEPATIC FUNCTION [id number] 12:30:00 Test Item Value Reference Range Comments TOTAL PROTEIN (BEAKER) (test ozoa=669) 8.2 gm/dL 6.0-8.3 ALBUMIN (BEAKER) (test tter=3009) 2.3 g/dL 3.5-5.0 BILIRUBIN TOTAL (BEAKER) (test ilty=098) 5.3 mg/dL 0.2-1.2 BILIRUBIN DIRECT (BEAKER) (test sylp=870) 3.6 mg/dL 0.1-0.5 ALKALINE PHOSPHATASE (BEAKER) (test hhbz=707) 162 U/L 40-150 AST (SGOT) (BEAKER) (test rscr=412) 180 U/L 5-34 ALT (SGPT) (BEAKER) (test qavl=507) 67 U/L 6-55 Specimen moderately ictericPROTHROMBIN [id number] 12:03:00 Test Item Value Reference Range Comments PROTIME (BEAKER) (test pszs=366) 21.8 seconds 11.9-14.2 INR (BEAKER) (test pdtg=680) 2.0 <=5.9 Effective 09/16/2018: PT Reference Range ChangeNew: 11.9-14.2 Previous: 11.7- 14.7RECOMMENDED COUMADIN/WARFARIN INR THERAPY RANGESSTANDARD DOSE: 2.0-3.0 Includes: PROPHYLAXIS for venous thrombosis, systemic embolization; TREATMENT for venous thrombosis and/or pulmonary embolus.HIGH RISK: Target INR is2.5-3.5 for patients wiht mechanical heart valves.BLOOD [id number] 08:00:00 Test Item Value Reference Range Comments CULTURE (BEAKER) (test ygby=7125) No growth in 5 days ANTI-MITOCHONDRIAL AB, REFLEX TO [id number] 08:08:00 Test Item Value Reference Range Comments SCAN RESULT (test ctej=[id number]) MR, ABDOMEN, [id number] 08:58:00FINAL REPORT TECHNIQUE: MRI of the abdomen [...] aneurysm measures 1.1 cm. Signed: Bernabe Saenz MDReport Verified Date/Time: 09/17/2018 08:58:29 Reading Location: [facility] Diagnostic Imaging Reading Room - [place] [address] POCT- GLUCOSE [id number] 08:20:00 Test Item Value Reference Range Comments POC-GLUCOSE METER (BEAKER) 98 mg/dL 70-110 TESTED AT [facility] [address] (test gsvp=6381) [facility] [address] COMPREHENSIVE METABOLIC [id number] 04:44:00 Test Item Value Reference Range Comments TOTAL PROTEIN (BEAKER) 5.9 gm/dL 6.0-8.3 (test gctp=708) ALBUMIN (BEAKER) (test 1.8 g/dL 3.5-5.0 njyn=6897) ALKALINE PHOSPHATASE 142 U/L 40-150 (BEAKER) (test ebhg=237) BILIRUBIN TOTAL (BEAKER) 6.3 mg/dL 0.2-1.2 (test dvwm=909) SODIUM (BEAKER) (test 135 meq/L 136-145 zbdd=067) POTASSIUM (BEAKER) (test 3.7 meq/L 3.5-5.1 mggu=006) CHLORIDE (BEAKER) (test 102 meq/L 98-107 wzuy=691) CO2 (BEAKER) (test 31 meq/L 22-29 qlzp=841) BLOOD UREA NITROGEN 9 mg/dL 7-21 (BEAKER) (test pchj=567) CREATININE (BEAKER) (test 0.71 mg/dL 0.57-1.25 ejpz=389) GLUCOSE RANDOM (BEAKER) 88 mg/dL 70-105 (test zlmy=984) CALCIUM (BEAKER) (test 7.5 mg/dL 8.4-10.2 awzf=012) AST (SGOT) (BEAKER) (test 99 U/L 5-34 yyeq=160) ALT (SGPT) (BEAKER) (test 31 U/L 6-55 akzs=707) EGFR (BEAKER) (test 117 mL/min/1.73 sq ESTIMATED GFR IS NOT vwks=0290) m ACCURATE CREATININE CLEARANCE IN PREDICTING GLOMERULAR FILTRATION RATE. ESTIMATED GFR IS NOT APPLICABLE FOR DIALYSIS PATIENTS. Specimen moderately [id number] 04:41:00 Test Item Value Reference Range Comments MAGNESIUM (BEAKER) (test itts=897) 1.7 mg/dL 1.6-2.6 PROTHROMBIN [id number] 04:28:00 Test Item Value Reference Range Comments PROTIME (BEAKER) (test ymhp=685) 24.3 seconds 11.9-14.2 INR (BEAKER) (test ovqp=677) 2.3 <=5.9 Effective 09/16/2018: PT Reference Range ChangeNew: 11.9-14.2 Previous: 11.7- 14.7RECOMMENDED COUMADIN/WARFARIN INR THERAPY RANGESSTANDARD DOSE: 2.0-3.0 Includes: PROPHYLAXIS for venous thrombosis, systemic embolization; TREATMENT for venous thrombosis and/or pulmonary embolus.HIGH RISK: Target INR is2.5-3.5 for patients wiht mechanical heart valves.CBC W/PLT COUNT & AUTO [id number] 04:20:00 Test Item Value Reference Range Comments WHITE BLOOD CELL COUNT (BEAKER) (test todk=481) 5.3 K/ L 3.5-10.5 RED BLOOD CELL COUNT (BEAKER) (test xlwx=316) 2.51 M/ L 4.63-6.08 HEMOGLOBIN (BEAKER) (test tbbg=015) 9.3 GM/DL 13.7-17.5 HEMATOCRIT (BEAKER) (test oycg=144) 28.0 % 40.1-51.0 MEAN CORPUSCULAR VOLUME (BEAKER) (test kzqy=652) 111.6 fL 79.0-92.2 MEAN CORPUSCULAR HEMOGLOBIN (BEAKER) (test 37.1 pg 25.7-32.2 iktn=662) MEAN CORPUSCULAR HEMOGLOBIN CONC (BEAKER) (test 33.2 GM/DL 32.3-36.5 awzf=748) RED CELL DISTRIBUTION WIDTH (BEAKER) (test 17.6 % 11.6-14.4 hoba=389) PLATELET COUNT (BEAKER) (test dkfv=309) 60 K/CU MM 150-450 MEAN PLATELET VOLUME (BEAKER) (test ezoq=986) 11.2 fL 9.4-12.4 NUCLEATED RED BLOOD CELLS (BEAKER) (test 0 /100 WBC 0-0 azjc=104) NEUTROPHILS RELATIVE PERCENT (BEAKER) (test 62 % fohw=659) LYMPHOCYTES RELATIVE PERCENT (BEAKER) (test 24 % hvbi=160) MONOCYTES RELATIVE PERCENT (BEAKER) (test 9 % lbti=708) EOSINOPHILS RELATIVE PERCENT (BEAKER) (test 4 % pwfl=684) BASOPHILS RELATIVE PERCENT (BEAKER) (test 1 % elvz=129) NEUTROPHILS ABSOLUTE COUNT (BEAKER) (test 3.28 K/ L 1.78-5.38 ljyk=168) LYMPHOCYTES ABSOLUTE COUNT (BEAKER) (test 1.24 K/ L 1.32-3.57 lrvs=368) MONOCYTES ABSOLUTE COUNT (BEAKER) (test uurx=524) 0.46 K/ L 0.30-0.82 EOSINOPHILS ABSOLUTE COUNT (BEAKER) (test 0.23 K/ L 0.04-0.54 youg=682) BASOPHILS ABSOLUTE COUNT (BEAKER) (test nadk=258) 0.04 K/ L 0.01-0.08 IMMATURE GRANULOCYTES-RELATIVE PERCENT (BEAKER) 0 % 0-1 (test pazk=7870) POCT-GLUCOSE [id number] 00:39:00 Test Item Value Reference Range Comments POC-GLUCOSE METER (BEAKER) 98 mg/dL 70-110 TESTED AT [address] (test qxcp=5042) [place] [address] POCT-GLUCOSE [id number] 18:48:00 Test Item Value Reference Range Comments POC-GLUCOSE METER (BEAKER) 112 mg/dL 70-110 TESTED AT [address] (test dhox=6274) [place] [id number] POCT-GLUCOSE [id number] 13:00:00 Test Item Value Reference Range Comments POC-GLUCOSE METER (BEAKER) 107 mg/dL 70-110 TESTED AT [address] (test kucw=8281) [place] [id number] URINALYSIS W/ [id number] 10:57:00 Test Item Value Reference Range Comments COLOR (BEAKER) (test xnmm=205) Yellow CLARITY (BEAKER) (test czye=503) Clear SPECIFIC GRAVITY UA (BEAKER) (test bcgh=473) 1.005 1.001-1.035 PH UA (BEAKER) (test ziww=925) 6.5 5.0-8.0 PROTEIN UA (BEAKER) (test klqk=782) Negative Negative GLUCOSE UA (BEAKER) (test xlhn=262) Negative Negative KETONES UA (BEAKER) (test rczw=263) Negative Negative BILIRUBIN UA (BEAKER) (test sovs=764) Negative Negative BLOOD UA (BEAKER) (test uomm=149) Negative Negative NITRITE UA (BEAKER) (test hwvi=691) Negative Negative LEUKOCYTE ESTERASE UA (BEAKER) (test ucus=440) Negative Negative UROBILINOGEN UA (BEAKER) (test whiz=768) 2.0 mg/dL 0.2-1.0 RBC UA (BEAKER) (test gzaw=018) 0 /HPF WBC UA (BEAKER) (test abmp=647) < /HPF SOURCE(BEAKER) (test tcov=8551) Urine, Voided COMPREHENSIVE METABOLIC [id number] 10:29:00 Test Item Value Reference Range Comments TOTAL PROTEIN (BEAKER) 5.9 gm/dL 6.0-8.3 (test ivzg=996) ALBUMIN (BEAKER) (test 1.9 g/dL 3.5-5.0 vjex=8549) ALKALINE PHOSPHATASE 139 U/L 40-150 (BEAKER) (test qxjr=551) BILIRUBIN TOTAL (BEAKER) 7.4 mg/dL 0.2-1.2 (test eymz=238) SODIUM (BEAKER) (test 134 meq/L 136-145 kbok=715) POTASSIUM (BEAKER) (test 3.8 meq/L 3.5-5.1 wuox=779) CHLORIDE (BEAKER) (test 101 meq/L 98-107 epsu=885) CO2 (BEAKER) (test 27 meq/L 22-29 dvpx=709) BLOOD UREA NITROGEN 8 mg/dL 7-21 (BEAKER) (test kkmv=838) CREATININE (BEAKER) (test 0.61 mg/dL 0.57-1.25 exdo=554) GLUCOSE RANDOM (BEAKER) 120 mg/dL 70-105 (test wpqo=642) CALCIUM (BEAKER) (test 7.6 mg/dL 8.4-10.2 ewif=488) AST (SGOT) (BEAKER) (test 112 U/L 5-34 jbpt=383) ALT (SGPT) (BEAKER) (test 34 U/L 6-55 werx=835) EGFR (BEAKER) (test 139 mL/min/1.73 sq ESTIMATED GFR IS NOT lhph=5704) m ACCURATE CREATININE CLEARANCE IN PREDICTING GLOMERULAR FILTRATION RATE. ESTIMATED GFR IS NOT APPLICABLE FOR DIALYSIS PATIENTS. Specimen moderately [id number] 10:24:00 Test Item Value Reference Range Comments MAGNESIUM (BEAKER) (test ixfx=991) 1.7 mg/dL 1.6-2.6 ANTI-NUCLEAR ANTIBODY (HEIDY)2018-09-16 07:54:00 Test Item Value Reference Range Comments ANTI-NUCLEAR ANTIBODY (HEIDY) (BEAKER) (test Negative Negative ztor=288) Test performed by IFA method.Test performed by IFA method.[id number] 06: 21:00 Test Item Value Reference Range Comments FERRITIN (BEAKER) (test btrq=530) 489 ng/mL 5-275 HEPATITIS C [id number] 05:42:00 Test Item Value Reference Range Comments HEPATITIS C ANTIBODY (BEAKER) (test xuwo=405) Nonreactive Nonreactive ALPHA FETOPROTEIN (AFP), TUMOR [id number] 05:42:00 Test Item Value Reference Range Comments ALPHA-FETOPROTEIN (BEAKER) (test vlbf=3984) < ng/mL <10.0 PROTHROMBIN [id number] 05:23:00 Test Item Value Reference Range Comments PROTIME (BEAKER) (test xrwl=566) 24.7 seconds 11.9-14.2 INR (BEAKER) (test dfjj=598) 2.4 <=5.9 RECOMMENDED COUMADIN/WARFARIN INR THERAPY RANGESSTANDARD DOSE: 2.0 - 3.0 Includes: PROPHYLAXIS forvenous thrombosis, systemic embolization; TREATMENT for venous thrombosis and/or pulmonary embolus.HIGH RISK: Target INR is 2.5-3.5 for patients with mechanical heart valves.CBC W/PLT COUNT & AUTO [id number] 05:15:00 Test Item Value Reference Range Comments WHITE BLOOD CELL COUNT (BEAKER) (test vejz=062) 5.4 K/ L 3.5-10.5 RED BLOOD CELL COUNT (BEAKER) (test ootv=177) 2.65 M/ L 4.63-6.08 HEMOGLOBIN (BEAKER) (test zigh=056) 9.7 GM/DL 13.7-17.5 HEMATOCRIT (BEAKER) (test zjbz=493) 28.8 % 40.1-51.0 MEAN CORPUSCULAR VOLUME (BEAKER) (test wedj=020) 108.7 fL 79.0-92.2 MEAN CORPUSCULAR HEMOGLOBIN (BEAKER) (test 36.6 pg 25.7-32.2 lrqc=204) MEAN CORPUSCULAR HEMOGLOBIN CONC (BEAKER) (test 33.7 GM/DL 32.3-36.5 pmza=740) RED CELL DISTRIBUTION WIDTH (BEAKER) (test 17.4 % 11.6-14.4 qcmh=368) PLATELET COUNT (BEAKER) (test libg=806) 77 K/CU MM 150-450 MEAN PLATELET VOLUME (BEAKER) (test fvzw=596) 11.7 fL 9.4-12.4 NUCLEATED RED BLOOD CELLS (BEAKER) (test 0 /100 WBC 0-0 vjoq=851) NEUTROPHILS RELATIVE PERCENT (BEAKER) (test 65 % krcj=058) LYMPHOCYTES RELATIVE PERCENT (BEAKER) (test 22 % yftc=725) MONOCYTES RELATIVE PERCENT (BEAKER) (test 8 % znmp=320) EOSINOPHILS RELATIVE PERCENT (BEAKER) (test 4 % fsfj=165) BASOPHILS RELATIVE PERCENT (BEAKER) (test 1 % gxba=221) NEUTROPHILS ABSOLUTE COUNT (BEAKER) (test 3.52 K/ L 1.78-5.38 sedo=294) LYMPHOCYTES ABSOLUTE COUNT (BEAKER) (test 1.19 K/ L 1.32-3.57 pbse=724) MONOCYTES ABSOLUTE COUNT (BEAKER) (test ardb=037) 0.43 K/ L 0.30-0.82 EOSINOPHILS ABSOLUTE COUNT (BEAKER) (test 0.24 K/ L 0.04-0.54 bmsg=411) BASOPHILS ABSOLUTE COUNT (BEAKER) (test ssgh=366) 0.03 K/ L 0.01-0.08 IMMATURE GRANULOCYTES-RELATIVE PERCENT (BEAKER) 1 % 0-1 (test wgbl=8028) RAD, CHEST, 1 VIEW, NON [id number] 07:20:00Reason for exam:->r/o PNAShould this be performed at the bedside?->YesFINAL REPORT INDICATION: r/o PNA COMPARISON: None TECHNIQUE: Single frontal view of the chest. FINDINGS: Lungs and pleura: Clear lungs. No effusion.Heart and mediastinum: Normal heart size. Unremarkable mediastinal contours.Osseous structures: No acute abnormality.Other: None. IMPRESSION: No acute intrathoracic abnormality. Signed: JR Jaquez Robert MDReport Verified Date/Time: 09/15/2018 07:20:18 Reading Location: [facility] Radiology Reading Room [id number]-[id number] 05:36:00 Test Item Value Reference Range Comments ALPHA-1 ANTITRYPSIN (BEAKER) (test kjwq=013) 119.90 mg/dL 90.00-200.00 COMPREHENSIVE METABOLIC [id number] 05:30:00 Test Item Value Reference Range Comments TOTAL PROTEIN (BEAKER) 6.0 gm/dL 6.0-8.3 (test huvo=510) ALBUMIN (BEAKER) (test 2.0 g/dL 3.5-5.0 oxgs=0856) ALKALINE PHOSPHATASE 156 U/L 40-150 (BEAKER) (test wbae=137) BILIRUBIN TOTAL (BEAKER) 7.9 mg/dL 0.2-1.2 (test scmk=650) SODIUM (BEAKER) (test 131 meq/L 136-145 necq=174) POTASSIUM (BEAKER) (test 4.0 meq/L 3.5-5.1 sxvk=728) CHLORIDE (BEAKER) (test 103 meq/L 98-107 zezo=290) CO2 (BEAKER) (test 25 meq/L 22-29 ybcj=664) BLOOD UREA NITROGEN 8 mg/dL 7-21 (BEAKER) (test mrld=912) CREATININE (BEAKER) (test 0.57 mg/dL 0.57-1.25 xmxb=243) GLUCOSE RANDOM (BEAKER) 102 mg/dL 70-105 (test exjp=779) CALCIUM (BEAKER) (test 7.5 mg/dL 8.4-10.2 nmtg=443) AST (SGOT) (BEAKER) (test 119 U/L 5-34 gxrg=837) ALT (SGPT) (BEAKER) (test 36 U/L 6-55 ezsz=883) EGFR (BEAKER) (test 150 mL/min/1.73 sq ESTIMATED GFR IS NOT htjc=7087) m ACCURATE CREATININE CLEARANCE IN PREDICTING GLOMERULAR FILTRATION RATE. ESTIMATED GFR IS NOT APPLICABLE FOR DIALYSIS PATIENTS. Specimen moderately [id number] 05:25:00 Test Item Value Reference Range Comments MAGNESIUM (BEAKER) (test fnzg=861) 1.5 mg/dL 1.6-2.6 PROTHROMBIN [id number] 05:22:00 Test Item Value Reference Range Comments PROTIME (BEAKER) (test mavr=293) 24.9 seconds 11.7-14.7 INR (BEAKER) (test aqgy=648) 2.4 <=5.9 RECOMMENDED COUMADIN/WARFARIN INR THERAPY RANGESSTANDARD DOSE: 2.0 - 3.0 Includes: PROPHYLAXIS forvenous thrombosis, systemic embolization; TREATMENT for venous thrombosis and/or pulmonary embolus.HIGH RISK: Target INR is 2.5-3.5 for patients with mechanical heart valves.CBC W/PLT COUNT & AUTO [id number] 05:14:00 Test Item Value Reference Range Comments WHITE BLOOD CELL COUNT (BEAKER) (test bmja=353) 4.1 K/ L 3.5-10.5 RED BLOOD CELL COUNT (BEAKER) (test jipn=254) 2.60 M/ L 4.63-6.08 HEMOGLOBIN (BEAKER) (test jgee=713) 9.6 GM/DL 13.7-17.5 HEMATOCRIT (BEAKER) (test jrwx=461) 29.5 % 40.1-51.0 MEAN CORPUSCULAR VOLUME (BEAKER) (test wdqp=540) 113.5 fL 79.0-92.2 MEAN CORPUSCULAR HEMOGLOBIN (BEAKER) (test 36.9 pg 25.7-32.2 gval=923) MEAN CORPUSCULAR HEMOGLOBIN CONC (BEAKER) (test 32.5 GM/DL 32.3-36.5 zaya=254) RED CELL DISTRIBUTION WIDTH (BEAKER) (test 17.5 % 11.6-14.4 ykxk=581) PLATELET COUNT (BEAKER) (test cvkm=231) 50 K/CU MM 150-450 MEAN PLATELET VOLUME (BEAKER) (test nfbc=177) 10.9 fL 9.4-12.4 NUCLEATED RED BLOOD CELLS (BEAKER) (test 1 /100 WBC 0-0 ocbt=257) NEUTROPHILS RELATIVE PERCENT (BEAKER) (test 65 % neal=876) LYMPHOCYTES RELATIVE PERCENT (BEAKER) (test 21 % dhfw=607) MONOCYTES RELATIVE PERCENT (BEAKER) (test 9 % hluq=906) EOSINOPHILS RELATIVE PERCENT (BEAKER) (test 4 % ddug=586) BASOPHILS RELATIVE PERCENT (BEAKER) (test 1 % stkb=518) NEUTROPHILS ABSOLUTE COUNT (BEAKER) (test 2.63 K/ L 1.78-5.38 wdwe=077) LYMPHOCYTES ABSOLUTE COUNT (BEAKER) (test 0.85 K/ L 1.32-3.57 zzkx=930) MONOCYTES ABSOLUTE COUNT (BEAKER) (test sanf=052) 0.38 K/ L 0.30-0.82 EOSINOPHILS ABSOLUTE COUNT (BEAKER) (test 0.16 K/ L 0.04-0.54 xttj=635) BASOPHILS ABSOLUTE COUNT (BEAKER) (test kgmg=922) 0.03 K/ L 0.01-0.08 IMMATURE GRANULOCYTES-RELATIVE PERCENT (BEAKER) 1 % 0-1 (test nemo=6328) HEPATITIS A ANTIBODY, [id number] 19:16:00 Test Item Value Reference Range Comments HEPATITIS A IGG ANTIBODY (BEAKER) (test lcoa=5489) Reactive Nonreactive HEPATITIS B SURFACE [id number] 19:15:00 Test Item Value Reference Range Comments HEPATITIS B SURFACE ANTIBODY (BEAKER) (test < mIU/mL <8.0 wbpv=279) HEPATITIS B SURFACE [id number] 19:11:00 Test Item Value Reference Range Comments HEPATITIS B SURFACE ANTIGEN (2) (BEAKER) (test Nonreactive Nonreactive wboz=8792) HEPATITIS B CORE ANTIBODY, [id number] 19:11:00 Test Item Value Reference Range Comments HEPATITIS B CORE TOTAL ANTIBODY (BEAKER) (test Nonreactive Nonreactive omem=295) IRON, TIBC, % SAT. (WITHOUT FERRITIN)2018-09-14 18:50:00 Test Item Value Reference Range Comments IRON (BEAKER) (test hgyy=279) 82.0 ug/dL 40.0-160.0 TOTAL IRON BINDING CAPACITY (BEAKER) (test 80 ug/dL 250-450 asbl=010) IRON % SATURATION (2) (BEAKER) (test hder=0678) 103 % 20-55 PROTEIN, BODY [id number] 17:49:00 Test Item Value Reference Range Comments PROTEIN FLUID (BEAKER) (test rlbt=330) 0.9 g/dL Absence of reference range indicates that normals have not been defined.Assay performance has not been validated for this type of specimen.U/S, [id number] 16:46:00Page hospitalist team 6 with ?s Reason [...] was used for local anesthesia. A 5 Spanish needlecatheter system was advanced into the peritoneal space. 6000 cc cloudy yellow fluid was taken off. Patient tolerated the procedure well. Impression: Ultrasound guided paracentesis. Signed: Gregorio Lott MDReport Verified Date/ Time: 09/14/2018 16:46:50 Reading Location: [facility] C013Y CT Body ReadingRoom BODY FLUID CELL COUNT WITH [id number] 16:28:00 Test Item Value Reference Range Comments APPEARANCE FLUID (BEAKER) (test hisk=038) Hazy Clear COLOR FLUID (BEAKER) (test xfrw=498) Yellow Colorless, Straw RBC FLUID (BEAKER) (test jdrz=647) 2000 /cu mm <=1 ADJUSTED WBC FLUID (BEAKER) (test zvul=7574) 270 /cu mm <=5 LINING CELLS (BEAKER) (test sqqd=0043) 0 /cu mm <=1 NEUTROPHILS FLUID (BEAKER) (test oazy=8012) 41 % LYMPHS FLUID (BEAKER) (test lbij=424) 30 % MONO/MACROPHAGE FLUID (BEAKER) (test jran=146) 29 % EOSINOPHILS FLUID (BEAKER) (test ecyy=407) 0 % BASO FLUID (BEAKER) (test xxgy=273) 0 % CONTAINER BODY FLUID (BEAKER) (test fqzo=0561) EDTA Tube ALBUMIN, BODY [id number] 16:05:00 Test Item Value Reference Range Comments ALBUMIN FLUID (BEAKER) (test bahf=494) 0.4 gm/dL Reference Range: No Normals Assay performance has not been validated for this type of specimen.U/S, ABDOMINAL, [id number] 09:28:00Reason for exam:-&gt ;abdominal painFINAL REPORT INDICATION: [...] MDReport Verified Date/Time: 09/14/2018 09:28:37 Reading Location: [facility] C013Y CT Body Reading Room T4, [id number] 08:43:00 Test Item Value Reference Range Comments FREE T4 (BEAKER) (test iaev=447) 0.87 ng/dL 0.70-1.48 POCT-GLUCOSE [id number] 07:33:00 Test Item Value Reference Range Comments POC-GLUCOSE METER (BEAKER) 94 mg/dL 70-110 TESTED AT [address] (test ikfc=5530) [facility] [address] [id number] 06:26:00 Test Item Value Reference Range Comments THYROID STIMULATING HORMONE (BEAKER) (test 1.93 uIU/mL 0.35-4.94 ltcc=631) BASIC METABOLIC [id number] 05:52:00 Test Item Value Reference Range Comments SODIUM (BEAKER) (test 130 meq/L 136-145 qzjs=142) POTASSIUM (BEAKER) (test 5.1 meq/L 3.5-5.1 Specimen slightly aizl=448) hemolyzed CHLORIDE (BEAKER) (test 102 meq/L 98-107 fgch=010) CO2 (BEAKER) (test 25 meq/L 22-29 gnmr=169) BLOOD UREA NITROGEN 6 mg/dL 7-21 (BEAKER) (test xuat=769) CREATININE (BEAKER) (test 0.57 mg/dL 0.57-1.25 Specimen slightly bpod=915) hemolyzed GLUCOSE RANDOM (BEAKER) 99 mg/dL 70-105 (test joxo=715) CALCIUM (BEAKER) (test 7.6 mg/dL 8.4-10.2 zmnj=759) EGFR (BEAKER) (test 150 mL/min/1.73 sq m ESTIMATED GFR IS NOT kvdn=9099) ACCURATE CREATININE CLEARANCE IN PREDICTING GLOMERULAR FILTRATION RATE. ESTIMATED GFR IS NOT APPLICABLE FOR DIALYSIS PATIENTS. Specimen moderately ictericHEPATIC FUNCTION [id number] 05:52:00 Test Item Value Reference Range Comments TOTAL PROTEIN (BEAKER) (test 6.9 gm/dL 6.0-8.3 Specimen slightly hemolyzed ycez=368) ALBUMIN (BEAKER) (test 1.9 g/dL 3.5-5.0 Specimen slightly hemolyzed ztct=6989) BILIRUBIN TOTAL (BEAKER) (test 9.0 mg/dL 0.2-1.2 Specimen slightly hemolyzed hmqg=277) BILIRUBIN DIRECT (BEAKER) (test 5.1 mg/dL 0.1-0.5 Specimen slightly hemolyzed lrrw=530) ALKALINE PHOSPHATASE (BEAKER) 174 U/L 40-150 (test imxe=644) AST (SGOT) (BEAKER) (test 178 U/L 5-34 Specimen slightly hemolyzed doog=189) ALT (SGPT) (BEAKER) (test 48 U/L 6-55 Specimen slightly hemolyzed svzw=890) Specimen moderately [id number] 05:43:00 Test Item Value Reference Range Comments ETHANOL (BEAKER) (test hubl=919) < mg/dL <=10 PROTHROMBIN [id number] 05:10:00 Test Item Value Reference Range Comments PROTIME (BEAKER) (test exxj=623) 22.1 seconds 11.7-14.7 INR (BEAKER) (test ievn=509) 2.1 <=5.9 RECOMMENDED COUMADIN/WARFARIN INR THERAPY RANGESSTANDARD DOSE: 2.0 - 3.0 Includes: PROPHYLAXIS forvenous thrombosis, systemic embolization; TREATMENT for venous thrombosis and/or pulmonary embolus.HIGH RISK: Target INR is 2.5-3.5 for patients with mechanical heart valves.CBC W/PLT COUNT & AUTO [id number] 04:57:00 Test Item Value Reference Range Comments WHITE BLOOD CELL COUNT (BEAKER) (test gyqz=101) 6.7 K/ L 3.5-10.5 RED BLOOD CELL COUNT (BEAKER) (test mwxr=480) 2.74 M/ L 4.63-6.08 HEMOGLOBIN (BEAKER) (test irsz=958) 10.1 GM/DL 13.7-17.5 HEMATOCRIT (BEAKER) (test nusk=712) 30.0 % 40.1-51.0 MEAN CORPUSCULAR VOLUME (BEAKER) (test bgdr=621) 109.5 fL 79.0-92.2 MEAN CORPUSCULAR HEMOGLOBIN (BEAKER) (test 36.9 pg 25.7-32.2 kwlj=058) MEAN CORPUSCULAR HEMOGLOBIN CONC (BEAKER) (test 33.7 GM/DL 32.3-36.5 odte=795) RED CELL DISTRIBUTION WIDTH (BEAKER) (test 17.8 % 11.6-14.4 adti=715) PLATELET COUNT (BEAKER) (test adte=294) 83 K/CU MM 150-450 MEAN PLATELET VOLUME (BEAKER) (test xnax=846) 10.4 fL 9.4-12.4 NUCLEATED RED BLOOD CELLS (BEAKER) (test 0 /100 WBC 0-0 ihfb=159) NEUTROPHILS RELATIVE PERCENT (BEAKER) (test 75 % ztcs=908) LYMPHOCYTES RELATIVE PERCENT (BEAKER) (test 14 % nzft=136) MONOCYTES RELATIVE PERCENT (BEAKER) (test 7 % pgov=264) EOSINOPHILS RELATIVE PERCENT (BEAKER) (test 2 % kuzu=607) BASOPHILS RELATIVE PERCENT (BEAKER) (test 1 % dppb=750) NEUTROPHILS ABSOLUTE COUNT (BEAKER) (test 4.98 K/ L 1.78-5.38 zacx=780) LYMPHOCYTES ABSOLUTE COUNT (BEAKER) (test 0.93 K/ L 1.32-3.57 kocn=470) MONOCYTES ABSOLUTE COUNT (BEAKER) (test nzyk=625) 0.49 K/ L 0.30-0.82 EOSINOPHILS ABSOLUTE COUNT (BEAKER) (test 0.16 K/ L 0.04-0.54 djke=705) BASOPHILS ABSOLUTE COUNT (BEAKER) (test mhae=569) 0.06 K/ L 0.01-0.08 IMMATURE GRANULOCYTES-RELATIVE PERCENT (BEAKER) 1 % 0-1 (test bigk=0028) PROTHROMBIN [id number] 01:38:00 Test Item Value Reference Range Comments PROTIME (BEAKER) (test hkhc=538) 21.1 seconds 11.7-14.7 INR (BEAKER) (test enol=899) 1.9 <=5.9 RECOMMENDED COUMADIN/WARFARIN INR THERAPY RANGESSTANDARD DOSE: 2.0 - 3.0 Includes: PROPHYLAXIS forvenous thrombosis, systemic embolization; TREATMENT for venous thrombosis and/or pulmonary embolus.HIGH RISK: Target INR is 2.5-3.5 for patients with mechanical heart valves.BASIC METABOLIC [id number] 01:37: 00 Test Item Value Reference Range Comments SODIUM (BEAKER) (test 130 meq/L 136-145 kifh=654) POTASSIUM (BEAKER) (test 4.6 meq/L 3.5-5.1 Specimen moderately lejn=027) hemolyzed CHLORIDE (BEAKER) (test 100 meq/L 98-107 nhrj=722) CO2 (BEAKER) (test 21 meq/L 22-29 moff=790) BLOOD UREA NITROGEN 6 mg/dL 7-21 (BEAKER) (test uxyx=296) CREATININE (BEAKER) (test 0.61 mg/dL 0.57-1.25 Specimen moderately vwkv=196) hemolyzed GLUCOSE RANDOM (BEAKER) 100 mg/dL 70-105 (test gahr=331) CALCIUM (BEAKER) (test 7.8 mg/dL 8.4-10.2 qhif=301) EGFR (BEAKER) (test 139 mL/min/1.73 sq m ESTIMATED GFR IS NOT woch=1377) ACCURATE CREATININE CLEARANCE IN PREDICTING GLOMERULAR FILTRATION RATE. ESTIMATED GFR IS NOT APPLICABLE FOR DIALYSIS PATIENTS. Specimen moderately [id number] 01:36:00 Test Item Value Reference Range Comments MAGNESIUM (BEAKER) (test 1.9 mg/dL 1.6-2.6 Specimen moderately hemolyzed gwrb=974) HEPATIC FUNCTION [id number] 01:36:00 Test Item Value Reference Range Comments TOTAL PROTEIN (BEAKER) (test 8.0 gm/dL 6.0-8.3 Specimen moderately hemolyzed bqjw=017) ALBUMIN (BEAKER) (test 2.2 g/dL 3.5-5.0 Specimen moderately hemolyzed wika=9833) BILIRUBIN TOTAL (BEAKER) (test 9.0 mg/dL 0.2-1.2 Specimen moderately hemolyzed kciv=556) BILIRUBIN DIRECT (BEAKER) 4.9 mg/dL 0.1-0.5 Specimen moderately hemolyzed (test aggo=925) ALKALINE PHOSPHATASE (BEAKER) 204 U/L 40-150 (test zzrr=939) AST (SGOT) (BEAKER) (test 193 U/L 5-34 Specimen moderately hemolyzed xaov=390) ALT (SGPT) (BEAKER) (test 51 U/L 6-55 Specimen moderately kmwy=617) hemolyzed Specimen moderately ictericCBC W/PLT COUNT & AUTO [id number] 01: 21:00 Test Item Value Reference Range Comments WHITE BLOOD CELL COUNT (BEAKER) (test pkzw=023) 6.7 K/ L 3.5-10.5 RED BLOOD CELL COUNT (BEAKER) (test oibl=911) 2.97 M/ L 4.63-6.08 HEMOGLOBIN (BEAKER) (test tiia=851) 11.1 GM/DL 13.7-17.5 HEMATOCRIT (BEAKER) (test swlr=611) 31.9 % 40.1-51.0 MEAN CORPUSCULAR VOLUME (BEAKER) (test ybtm=964) 107.4 fL 79.0-92.2 MEAN CORPUSCULAR HEMOGLOBIN (BEAKER) (test 37.4 pg 25.7-32.2 irrk=991) MEAN CORPUSCULAR HEMOGLOBIN CONC (BEAKER) (test 34.8 GM/DL 32.3-36.5 cvnr=099) RED CELL DISTRIBUTION WIDTH (BEAKER) (test 17.8 % 11.6-14.4 bujy=185) PLATELET COUNT (BEAKER) (test odgj=649) 101 K/CU MM 150-450 MEAN PLATELET VOLUME (BEAKER) (test ifha=479) 10.9 fL 9.4-12.4 NUCLEATED RED BLOOD CELLS (BEAKER) (test 0 /100 WBC 0-0 kqkf=227) NEUTROPHILS RELATIVE PERCENT (BEAKER) (test 81 % rono=274) LYMPHOCYTES RELATIVE PERCENT (BEAKER) (test 9 % pzwy=811) MONOCYTES RELATIVE PERCENT (BEAKER) (test 8 % jjvq=979) EOSINOPHILS RELATIVE PERCENT (BEAKER) (test 1 % ajmn=231) BASOPHILS RELATIVE PERCENT (BEAKER) (test 1 % zulw=094) NEUTROPHILS ABSOLUTE COUNT (BEAKER) (test 5.37 K/ L 1.78-5.38 leqf=920) LYMPHOCYTES ABSOLUTE COUNT (BEAKER) (test 0.60 K/ L 1.32-3.57 euis=983) MONOCYTES ABSOLUTE COUNT (BEAKER) (test 0.55 K/ L 0.30-0.82 wkdk=781) EOSINOPHILS ABSOLUTE COUNT (BEAKER) (test 0.04 K/ L 0.04-0.54 cenv=137) BASOPHILS ABSOLUTE COUNT (BEAKER) (test 0.07 K/ L 0.01-0.08 wfrc=550) IMMATURE GRANULOCYTES-RELATIVE PERCENT (BEAKER) 1 % 0-1 (test burc=2372)
[2019-03-10] MEDS ORDERED: FUROSEMIDE 20 MG/ 2ML VIAL ONE (12:55)
[2019-03-10 14:09] LABS: ALT/SGPT 46 U/L (12-78); AST/SGOT 105 U/L (15-37); Albumin 1.9 g/dL (3.4-5.0); Alkaline Phosphatase 349 U/L (45-117); BUN Blood Urea Nitrogen 8 mg/dL (7-18); Bicarbonate 24 mmol/L (21-32); Bilirubin Direct 3.8 mg/dL (0-0.2); Glucose Level 88 mg/dL (74-106); Lipase 134 U/L (73-393); Potassium 4.3 mmol/L (3.5-5.1); Sodium Level 134 mmol/L (136-145)
[2019-03-10 14:15] LABS: Bilirubin Total 6.2 mg/dL (0.2-1.0)
[2019-03-10 14:31] LABS: Absolute Lymphocytes (CBC) 0.5 K/uL (0.7-4.9); Basophils % 0.4 % (0-1.3); Hematocrit 25.7 % (39.6-49.0); Lymphocytes % 11.8 % (15.3-44.8); RBC Red Blood Cell Count 2.38 M/uL (4.33-5.43)
[2019-03-10 14:59] LABS: Blood Morphology Comment NOTED (NOT SEEN); Macrocytosis 1+; Platelet Estimate DECR; Platelets, Giant PRESENT; Urine White Blood Cell Casts OK
--- NOTE | 2019-03-10 15:14 | ER ---
Nurse's Notes [facility] Name: Chrissie Parada Jr Age: 54 yrs Sex: Male : 1965 Arrival Date: 03/10/2019 Time: 10:17 Bed 25 Private MD: Diagnosis: Alcoholic cirrhosis of liver;Alcoholic cirrhosis of liver with ascites Presentation: 03/10 10:29 Presenting complaint: Patient states: swelling all over body that began 2 weeks ago. Pt ss has a history of liver cirrhosis and reports that when he was in the hospital, they gave him a water pill that helped. Pt states that a week ago he ran out of his Lasix, and they have not refilled it yet. Transition of care: patient was not received from another setting of care. Onset of symptoms was February 24, 2019. Risk Assessment: Do you want to hurt yourself or someone else? Patient reports no desire to harm self or others. Initial Sepsis Screen: Does the patient meet any 2 criteria? HR > 90 bpm. Does the patient have a suspected source of infection? No. Patient's initial sepsis screen is negative. Care prior to arrival: None. 10:29 Method Of Arrival: Ambulatory ss 10:29 Acuity: WENDY 3 ss Historical: - Allergies: 10:29 No Known Allergies; ss - Home Meds: 10:29 folic acid 1 mg Oral tab 1 tab once daily [Active]; spironolactone 100 mg Oral tab 1 ss tab once daily [Active]; omeprazole 40 mg Oral cpDR 1 cap once daily [Active]; lactulose 20 gram/30 mL Oral soln 30 mL 3 times per day [Active]; furosemide Oral [Active]; - PMHx: 10:29 Arthritis; Cirrhosis; esophageal varices; GERD; ss - Immunization history:: Adult Immunizations up to date. - Social history:: Smoking status: Patient/guardian denies using tobacco, Patient/guardian denies using alcohol, street drugs, The patient lives with family. - Ebola Screening: : Patient denies exposure to infectious person Patient denies travel to an Ebola-affected area in the 21 days before illness onset. - Family history:: not pertinent. Screenin:52 Abuse screen: Denies threats or abuse. Denies injuries from another. Nutritional mg2 screening: No deficits noted. Tuberculosis screening: No symptoms or risk factors identified. Fall Risk None identified. Assessment: 13:20 General: Appears in no apparent distress. comfortable, Behavior is calm, cooperative. mg2 Pain: Denies pain. Neuro: Level of Consciousness is awake, alert, obeys commands, Oriented to person, place, time, situation. Cardiovascular: Capillary refill < 3 seconds Patient's skin is warm and dry. Respiratory: Airway is patent Respiratory effort is even, unlabored, Respiratory pattern is regular, symmetrical. GI: Abdomen is distended. : No signs and/or symptoms were reported regarding the genitourinary system. EENT: Eyes yellowish. Derm: Skin is intact, is healthy with good turgor, Skin is jaundiced. Musculoskeletal: Circulation, motion, and sensation intact. Capillary refill < 3 seconds. Vital Signs: 10:26 BP 145 / 74; Pulse 99; Resp 17; Temp 98.3(O); Pulse Ox 97% on R/A; Weight 104.33 kg; ss Height 5 ft. 6 in. (167.64 cm); Pain 0/10; 13:21 BP 128 / 71; Pulse 99; Resp 18; Pulse Ox 98% on R/A; mg2 15:26 BP 133 / 78; Pulse 90; Resp 18; Pulse Ox 100% on R/A; mg2 10:26 Body Mass Index 37.12 (104.33 kg, 167.64 cm) ED Course: 10:17 Patient arrived in ED. as 10:29 Arm band placed on left wrist. ss 10:31 Triage completed. ss 12:04 Brian Pickett, RN is Primary Nurse. mg2 12:11 Bed in low position. Call light in reach. Verbal reassurance given. Pulse ox on. NIBP jp3 on. 12:11 Patient maintains SpO2 saturation greater than 95% on room air. jp3 12:16 Irene Zee MD is Attending Physician. ma2 13:22 No provider procedures requiring assistance completed. mg2 13:30 Initial lab(s) drawn, by me, sent to lab. Missed attempt(s): 20 gauge in left sg antecubital area. Bleeding controlled, band aid applied, catheter tip intact. Missed attempt(s): 20 gauge in right antecubital area. Bleeding controlled, band aid applied, catheter tip intact. 13:44 Inserted saline lock: 22 gauge in right upper arm, using aseptic technique. mg2 14:20 Lab(s) recollected, by me, sent to lab. mg2 14:38 Assisted to bathroom. mg2 15:27 IV discontinued, intact, bleeding controlled, No redness/swelling at site. Pressure mg2 dressing applied. Administered Medications: 13:44 Drug: Lasix 40 mg Route: IVP; Site: right upper arm; mg2 15:14 Follow up: Response: No adverse reaction mg2 Outcome: 15:13 Discharge ordered by . chai 15:27 Discharged to home ambulatory. mg2 15:27 Condition: stable 15:27 Discharge instructions given to patient, Instructed on discharge instructions, follow up and referral plans. Demonstrated understanding of instructions, follow-up care. 15:27 Patient left the ED. mg2 Signatures: Paul Stephens, RN RN Lourdes Go Shelby, RN RN Irene Rhoades MD MD ma2 Brian Pickett RN RN mg2 Eduardo Forte jp3
--- NOTE | 2019-03-10 15:14 | EDPHYS ---
Physician Documentation [facility] Name: Chrissie Parada Jr Age: 54 yrs Sex: Male : 1965 Arrival Date: 03/10/2019 Time: 10:17 Bed 25 Private MD: ED Physician Irene Zee HPI: 03/10 13:22 This 54 yrs old Male presents to ER via Ambulatory with complaints of Swelling.ma2 13:22 hx of alcoholic liver cirrhosis here with generalized edema . Onset: The ma2 symptoms/episode began/occurred gradually, 2 week(s) ago. Severity of symptoms: At their worst the symptoms were moderate in the emergency department the symptoms are unchanged. Historical: - Allergies: 10:29 No Known Allergies; ss - Home Meds: 10:29 folic acid 1 mg Oral tab 1 tab once daily [Active]; spironolactone 100 mg Oral tab 1 ss tab once daily [Active]; omeprazole 40 mg Oral cpDR 1 cap once daily [Active]; lactulose 20 gram/30 mL Oral soln 30 mL 3 times per day [Active]; furosemide Oral [Active]; - PMHx: 10:29 Arthritis; Cirrhosis; esophageal varices; GERD; ss - Immunization history:: Adult Immunizations up to date. - Social history:: Smoking status: Patient/guardian denies using tobacco, Patient/guardian denies using alcohol, street drugs, The patient lives with family. - Ebola Screening: : Patient denies exposure to infectious person Patient denies travel to an Ebola-affected area in the 21 days before illness onset. - Family history:: not pertinent. ROS: 13:22 Constitutional: Negative for fever, chills, and weight loss, Neck: Negative for injury, ma2 pain, and swelling, Cardiovascular: Negative for chest pain, palpitations, and edema, Respiratory: Negative for shortness of breath, cough, wheezing, and pleuritic chest pain, Abdomen/GI: Negative for abdominal pain, nausea, diarrhea, and constipation, Back: Negative for injury and pain, MS/Extremity: Negative for injury and deformity, Skin: Negative for injury, rash, and discoloration, Allergy/Immunology: Negative for hives, rash, and allergies, Endocrine: Negative for neck swelling, polydipsia, polyuria, polyphagia, and marked weight changes. 13:22 All other systems are negative. Exam: 13:22 Constitutional: generalized edema of face abdomin and both LE extremities, otherwise ma2 well developed, well nourished patient who is awake, alert, and in no acute distress. Chest/axilla: Normal chest wall appearance and motion. Nontender with no deformity. No lesions are appreciated. Cardiovascular: Regular rate and rhythm with a normal S1 and S2. No gallops, murmurs, or rubs. Normal PMI, no JVD. No pulse deficits. Abdomen/GI: Soft, non-tender, with normal bowel sounds. + ascites and distension, no r tympany. No guarding or rebound. No evidence of tenderness throughout. Skin: Warm, dry with normal turgor. Normal color with no rashes, no lesions, and no evidence of cellulitis. Neuro: Awake and alert, GCS 15, oriented to person, place, time, and situation. Cranial nerves II-XII grossly intact. Motor strength 5/5 in all extremities. Sensory grossly intact. Cerebellar exam normal. Normal gait. Vital Signs: 10:26 BP 145 / 74; Pulse 99; Resp 17; Temp 98.3(O); Pulse Ox 97% on R/A; Weight 104.33 kg; ss Height 5 ft. 6 in. (167.64 cm); Pain 0/10; 13:21 BP 128 / 71; Pulse 99; Resp 18; Pulse Ox 98% on R/A; mg2 15:26 BP 133 / 78; Pulse 90; Resp 18; Pulse Ox 100% on R/A; mg2 10:26 Body Mass Index 37.12 (104.33 kg, 167.64 cm) MDM: 12:16 Patient medically screened. ma2 13:22 Differential Diagnosis liver cirrhosis, and edema unlikely chf or arf. ma2 15:11 Data reviewed: vital signs, nurses notes. Counseling: I had a detailed discussion with ma2 the patient and/or guardian regarding: the historical points, exam findings, and any diagnostic results supporting the discharge/admit diagnosis, the presence of at least one elevated blood pressure reading (>120/80) during this emergency department visit, the need for outpatient follow up. 15:13 Response to treatment: the patient's symptoms have markedly improved after treatment. [facility] 03/10 12:53 Order name: Basic Metabolic Panel; Complete Time: 14:30 [facility] 03/10 12:53 Order name: CBC with Diff [facility] 03/10 12:53 Order name: Creatinine for Radiology; Complete Time: 14:30 [facility] 03/10 12:53 Order name: Hepatic Function; Complete Time: 14:30 [facility]2 03/10 12:53 Order name: Lipase; Complete Time: 14:30 [facility] 03/10 15:00 Order name: CBC Smear Scan [facility] 03/10 12:53 Order name: IV Saline Lock; Complete Time: 13:43 nh2 03/10 12:53 Order name: Labs collected and sent; Complete Time: 13:43 [facility] 03/10 14:05 Order name: Labs - recollect needed; Complete Time: 14:20 ss Administered Medications: 13:44 Drug: Lasix 40 mg Route: IVP; Site: right upper arm; mg2 15:14 Follow up: Response: No adverse reaction mg2 Disposition: 03/10/19 15:13 Discharged to Home. Impression: Alcoholic cirrhosis of liver, Alcoholic cirrhosis of liver with ascites. - Condition is Stable. - Discharge Instructions: Ascites, Alcoholic Liver Disease, Pjxo-ci-Uttb. - Prescriptions for Lasix 20 mg Oral Tablet - take 1 tablet by ORAL route once daily; 20 tablet. - Medication Reconciliation Form, Thank You Letter, Antibiotic Education, Prescription Opioid Use form. - Follow up: Private Physician; When: Tomorrow; Reason: Continuance of care. Signatures: Dispatcher [employer] [facility] Sonia Sales RN RN ss Irene Zee MD MD ma2 Brian Pickett RN RN mg2 Corrections: (The following items were deleted from the chart) 15:27 15:13 03/10/2019 15:13 Discharged to Home. Impression: Alcoholic cirrhosis of liver; mg2 Alcoholic cirrhosis of liver with ascites. Condition is Stable. Forms are Medication Reconciliation Form, Thank You Letter, Antibiotic Education, Prescription Opioid Use. Follow up: Private Physician; When: Tomorrow; Reason: Continuance of care. ma2
[2019-03-10 15:56] VITALS: TEMP 98.3
[2019-03-10 16:02] VITALS: BP 133/78; O2SAT 100
== END 2019-03-10 15:27 | disposition home or self-care (01) ==
LOC: ER 10:13
DX: K70.31 Alcoholic cirrhosis of liver with ascites (principal); K21.9 Gastro-esophageal reflux disease without esophagitis
CPT/HCPCS: 85025; 80048; 36415; 80076; 83690; 96374; 99284; J1940

== ENCOUNTER 2019-05-31 13:54 | Emergency (ER) | payer OTHER ==
--- OUTSIDE RECORDS SUMMARY | 2019-05-31 14:15 | XMS REPORT ---
:1965 [facility] [address] [place] [address] Care Team Providers Name Role Phone DANICA ALY FAUSTIN Unavailable Unavailable BEERAsifPATY Unavailable Unavailable SAMWAYS, BRIGITTE CROW Unavailable Unavailable NORYLISA HILL Unavailable Unavailable ROYAL, FRANK GRIFFITHS Unavailable Unavailable Problems This patient has no known problems. Allergies, Adverse Reactions, Alerts This patient has no known allergies or adverse reactions. Medications This patient has no known medications. Results Test Description Test Time Test Comments Text Results Atomic Results Result Comments CBC W/PLT COUNT & AUTO DIFFERENTIAL 2019-05-17 15:18:00 Test Item Value Reference Range Comments WHITE BLOOD CELL COUNT (BEAKER) (test hqpk=611) 5.5 K/ L 3.5-10.5 RED BLOOD CELL COUNT (BEAKER) (test lwwo=681) 2.37 M/ L 4.63-6.08 HEMOGLOBIN (BEAKER) (test uyxt=896) 9.2 GM/DL 13.7-17.5 HEMATOCRIT (BEAKER) (test istv=387) 26.6 % 40.1-51.0 MEAN CORPUSCULAR VOLUME (BEAKER) (test krou=258) 112.2 fL 79.0-92.2 MEAN CORPUSCULAR HEMOGLOBIN (BEAKER) (test bzzm=205) 38.8 pg 25.7-32.2 MEAN CORPUSCULAR HEMOGLOBIN CONC (BEAKER) (test nvok=790) 34.6 GM/DL 32.3- 36.5 RED CELL DISTRIBUTION WIDTH (BEAKER) (test logg=230) 15.5 % 11.6-14.4 PLATELET COUNT (BEAKER) (test diep=002) 63 K/CU MM 150-450 MEAN PLATELET VOLUME (BEAKER) (test byoj=535) 10.0 fL 9.4-12.4 NUCLEATED RED BLOOD CELLS (BEAKER) (test irvd=387) 0 /100 WBC 0-0 (CELLAVISION MANUAL DIFF)2019-05-17 15:18:00 Test Item Value Reference Range Comments NEUTROPHILS - REL (CELLAVISION)(BEAKER) (test 83 % megv=1485) LYMPHOCYTES - REL (CELLAVISION)(BEAKER) (test 7 % clzl=7341) MONOCYTES - REL (CELLAVISION)(BEAKER) (test 7 % midy=5700) EOSINOPHILS - REL (CELLAVISION)(BEAKER) (test 2 % wxzf=8296) METAMYELOCYTES - REL (CELLAVISION)(BEAKER) (test 1 % 0-0 otas=8785) NEUTROPHILS - ABS (CELLAVISION)(BEAKER) (test 4.57 K/ul 1.78-5.38 axlo=1579) LYMPHOCYTES - ABS (CELLAVISION)(BEAKER) (test 0.39 K/ul 1.32-3.57 hkmz=2501) MONOCYTES - ABS (CELLAVISION)(BEAKER) (test 0.39 K/uL 0.30-0.82 rbef=0414) EOSINOPHILS - ABS (CELLAVISION)(BEAKER) (test 0.11 K/uL 0.04-0.54 sudt=8544) METAMYELOCYTES - ABS (CELLAVISION)(BEAKER) (test 0.06 K/uL 0.00-0.00 kvgb=4223) TOTAL COUNTED (BEAKER) (test krnu=3482) 100 WBC MORPHOLOGY (BEAKER) (test qxpg=676) Normal PLT MORPHOLOGY (BEAKER) (test tgco=533) Normal POLYCHROMATOPHILLIC RBCS(BEAKER) (test plus=863) 1+ few ANISOCYTOSIS (BEAKER) (test yoyd=549) 2+ moderate MACROCYTES (BEAKER) (test yylv=023) 1+ few POIKILOCYTES (BEAKER) (test qtfe=438) 2+ moderate SCHISTOCYTES (BEAKER) (test raal=352) 1+ few ASHLEY CELLS (BEAKER) (test kipp=329) 1+ few ARTIFACT (CELLAVISION)(BEAKER) (test quea=3670) Present PLATELET CONCENTRATION (CELLAVISION)(BEAKER) Decreased (test vkon=7569) [employer] ID - Cole Ricketts comments: Slide comments:BASIC METABOLIC [id number] 11:36:00 Test Item Value Reference Range Comments SODIUM (BEAKER) (test 126 meq/L 136-145 ckkx=613) POTASSIUM (BEAKER) (test 4.3 meq/L 3.5-5.1 nsyb=395) CHLORIDE (BEAKER) (test 95 meq/L 98-107 zprf=302) CO2 (BEAKER) (test 24 meq/L 22-29 cwus=017) BLOOD UREA NITROGEN 7 mg/dL 7-21 (BEAKER) (test qlfe=032) CREATININE (BEAKER) (test 0.75 mg/dL 0.57-1.25 oyib=229) GLUCOSE RANDOM (BEAKER) 95 mg/dL 70-105 (test jddl=589) CALCIUM (BEAKER) (test 8.8 mg/dL 8.4-10.2 dlqw=794) EGFR (BEAKER) (test 109 mL/min/1.73 sq m ESTIMATED GFR IS NOT onkc=3767) ACCURATE CREATININE CLEARANCE IN PREDICTING GLOMERULAR FILTRATION RATE. ESTIMATED GFR IS NOT APPLICABLE FOR DIALYSIS PATIENTS. [employer] ID - HORACIO TORREZpecimen markedly ictericHEPATIC FUNCTION [id number] 11:36:00 Test Item Value Reference Range Comments TOTAL PROTEIN (BEAKER) (test yrzv=028) 7.2 gm/dL 6.0-8.3 ALBUMIN (BEAKER) (test zkrw=4112) 2.6 g/dL 3.5-5.0 BILIRUBIN TOTAL (BEAKER) (test ltip=733) 11.8 mg/dL 0.2-1.2 BILIRUBIN DIRECT (BEAKER) (test iufu=451) 6.5 mg/dL 0.1-0.5 ALKALINE PHOSPHATASE (BEAKER) (test nnhd=644) 268 U/L 40-150 AST (SGOT) (BEAKER) (test slqh=911) 96 U/L 5-34 ALT (SGPT) (BEAKER) (test hich=569) 45 U/L 6-55 [employer] ID - HORACIO TORREZpecimen markedly ictericPROTHROMBIN [id number] 11:20:00 Test Item Value Reference Range Comments PROTIME (BEAKER) (test nvaq=593) 24.4 seconds 11.9-14.2 INR (BEAKER) (test tesu=019) 2.3 <=5.9 Effective 09/16/2018: PT Reference Range ChangeNew: 11.9-14.2 Previous: 11.7- 14.7RECOMMENDED COUMADIN/WARFARIN INR THERAPY RANGESSTANDARD DOSE: 2.0-3.0 Includes: PROPHYLAXIS for venous thrombosis, systemic embolization; TREATMENT for venous thrombosis and/or pulmonary embolus.HIGH RISK: Target INR is2.5-3.5 for patients wiht mechanical heart valves.BASIC METABOLIC [id number] 12:26: 00 Test Item Value Reference Range Comments SODIUM (BEAKER) (test 130 meq/L 136-145 nckd=892) POTASSIUM (BEAKER) (test 3.4 meq/L 3.5-5.1 fwon=831) CHLORIDE (BEAKER) (test 92 meq/L 98-107 wkny=469) CO2 (BEAKER) (test 27 meq/L 22-29 ajph=240) BLOOD UREA NITROGEN 8 mg/dL 7-21 (BEAKER) (test tzru=223) CREATININE (BEAKER) (test 0.88 mg/dL 0.57-1.25 iphe=930) GLUCOSE RANDOM (BEAKER) 138 mg/dL 70-105 (test nvum=354) CALCIUM (BEAKER) (test 8.3 mg/dL 8.4-10.2 yvam=296) EGFR (BEAKER) (test 91 mL/min/1.73 sq m ESTIMATED GFR IS NOT pkkx=9263) ACCURATE CREATININE CLEARANCE IN PREDICTING GLOMERULAR FILTRATION RATE. ESTIMATED GFR IS NOT APPLICABLE FOR DIALYSIS PATIENTS. [employer] ID - NTPSpecimen markedly ictericHEPATIC FUNCTION [id number] 12:26 :00 Test Item Value Reference Range Comments TOTAL PROTEIN (BEAKER) (test lzpx=809) 7.3 gm/dL 6.0-8.3 ALBUMIN (BEAKER) (test phdz=1817) 2.9 g/dL 3.5-5.0 BILIRUBIN TOTAL (BEAKER) (test mhgu=929) 13.0 mg/dL 0.2-1.2 BILIRUBIN DIRECT (BEAKER) (test rxga=709) 6.4 mg/dL 0.1-0.5 ALKALINE PHOSPHATASE (BEAKER) (test uqik=287) 238 U/L 40-150 AST (SGOT) (BEAKER) (test tmsc=857) 59 U/L 5-34 ALT (SGPT) (BEAKER) (test dytv=578) 35 U/L 6-55 [employer] ID - NTPSpecimen markedly ictericALPHA FETOPROTEIN (AFP), TUMOR [id number] 12:20:00 Test Item Value Reference Range Comments ALPHA-FETOPROTEIN (BEAKER) (test fumy=5160) 2.6 ng/mL <10.0 [employer] ID - DBCBC W/PLT COUNT & AUTO [id number] 11:51:00 Test Item Value Reference Range Comments WHITE BLOOD CELL COUNT (BEAKER) (test sfcf=973) 4.5 K/ L 3.5-10.5 RED BLOOD CELL COUNT (BEAKER) (test jzxk=692) 2.22 M/ L 4.63-6.08 HEMOGLOBIN (BEAKER) (test wnne=216) 8.3 GM/DL 13.7-17.5 HEMATOCRIT (BEAKER) (test visl=943) 24.3 % 40.1-51.0 MEAN CORPUSCULAR VOLUME (BEAKER) (test nuel=144) 109.5 fL 79.0-92.2 MEAN CORPUSCULAR HEMOGLOBIN (BEAKER) (test 37.4 pg 25.7-32.2 tahr=239) MEAN CORPUSCULAR HEMOGLOBIN CONC (BEAKER) (test 34.2 GM/DL 32.3-36.5 pacl=994) RED CELL DISTRIBUTION WIDTH (BEAKER) (test 23.9 % 11.6-14.4 phsb=515) PLATELET COUNT (BEAKER) (test jccb=553) 62 K/CU MM 150-450 MEAN PLATELET VOLUME (BEAKER) (test xtux=663) 11.3 fL 9.4-12.4 NUCLEATED RED BLOOD CELLS (BEAKER) (test 0 /100 WBC 0-0 bqws=894) NEUTROPHILS RELATIVE PERCENT (BEAKER) (test 77 % ljvy=755) LYMPHOCYTES RELATIVE PERCENT (BEAKER) (test 10 % wcyx=153) MONOCYTES RELATIVE PERCENT (BEAKER) (test 11 % uwgw=531) EOSINOPHILS RELATIVE PERCENT (BEAKER) (test 1 % feqj=423) BASOPHILS RELATIVE PERCENT (BEAKER) (test 0 % zxoq=972) NEUTROPHILS ABSOLUTE COUNT (BEAKER) (test 3.46 K/ L 1.78-5.38 uele=093) LYMPHOCYTES ABSOLUTE COUNT (BEAKER) (test 0.46 K/ L 1.32-3.57 yqqw=285) MONOCYTES ABSOLUTE COUNT (BEAKER) (test qwcr=910) 0.49 K/ L 0.30-0.82 EOSINOPHILS ABSOLUTE COUNT (BEAKER) (test 0.06 K/ L 0.04-0.54 cvcf=320) BASOPHILS ABSOLUTE COUNT (BEAKER) (test erml=760) 0.02 K/ L 0.01-0.08 IMMATURE GRANULOCYTES-RELATIVE PERCENT (BEAKER) 0 % 0-1 (test foaf=7247) PROTHROMBIN [id number] 11:36:00 Test Item Value Reference Range Comments PROTIME (BEAKER) (test betw=901) 26.5 seconds 11.9-14.2 INR (BEAKER) (test znqv=911) 2.5 <=5.9 Effective 09/16/2018: PT Reference Range ChangeNew: 11.9-14.2 Previous: 11.7- 14.7RECOMMENDED COUMADIN/WARFARIN INR THERAPY RANGESSTANDARD DOSE: 2.0-3.0 Includes: PROPHYLAXIS for venous thrombosis, systemic embolization; TREATMENT for venous thrombosis and/or pulmonary embolus.HIGH RISK: Target INR is2.5-3.5 for patients wiht mechanical heart valves.CBC W/PLT COUNT & AUTO [id number] 06:47:00 Test Item Value Reference Range Comments WHITE BLOOD CELL COUNT (BEAKER) (test bwwp=526) 5.9 K/ L 3.5-10.5 RED BLOOD CELL COUNT (BEAKER) (test dwax=326) 2.09 M/ L 4.63-6.08 HEMOGLOBIN (BEAKER) (test jxwb=191) 7.3 GM/DL 13.7-17.5 HEMATOCRIT (BEAKER) (test iehh=073) 22.1 % 40.1-51.0 MEAN CORPUSCULAR VOLUME (BEAKER) (test orap=038) 105.7 fL 79.0-92.2 MEAN CORPUSCULAR HEMOGLOBIN (BEAKER) (test 34.9 pg 25.7-32.2 mwiw=179) MEAN CORPUSCULAR HEMOGLOBIN CONC (BEAKER) (test 33.0 GM/DL 32.3-36.5 sjqd=928) RED CELL DISTRIBUTION WIDTH (BEAKER) (test 24.2 % 11.6-14.4 ggwk=852) PLATELET COUNT (BEAKER) (test bugu=463) 40 K/CU MM 150-450 MEAN PLATELET VOLUME (BEAKER) (test cxsb=242) 10.4 fL 9.4-12.4 NUCLEATED RED BLOOD CELLS (BEAKER) (test 0 /100 WBC 0-0 qnud=012) NEUTROPHILS RELATIVE PERCENT (BEAKER) (test 71 % kajq=333) LYMPHOCYTES RELATIVE PERCENT (BEAKER) (test 16 % egas=930) MONOCYTES RELATIVE PERCENT (BEAKER) (test 9 % rcou=616) EOSINOPHILS RELATIVE PERCENT (BEAKER) (test 4 % ncje=132) BASOPHILS RELATIVE PERCENT (BEAKER) (test 0 % yypq=423) NEUTROPHILS ABSOLUTE COUNT (BEAKER) (test 4.12 K/ L 1.78-5.38 nncw=670) LYMPHOCYTES ABSOLUTE COUNT (BEAKER) (test 0.95 K/ L 1.32-3.57 dtnp=515) MONOCYTES ABSOLUTE COUNT (BEAKER) (test jtjs=859) 0.52 K/ L 0.30-0.82 EOSINOPHILS ABSOLUTE COUNT (BEAKER) (test 0.21 K/ L 0.04-0.54 eeja=336) BASOPHILS ABSOLUTE COUNT (BEAKER) (test cyab=508) 0.02 K/ L 0.01-0.08 IMMATURE GRANULOCYTES-RELATIVE PERCENT (BEAKER) 1 % 0-1 (test dgpr=6639) CALCIUM, [id number] 04:50:00 Test Item Value Reference Range Comments CALCIUM IONIZED (BEAKER) (test zfxx=189) 1.08 mmol/L 1.12-1.27 PH, BLOOD (BEAKER) (test tfoi=9987) 7.52 [id number] 04:08:00 Test Item Value Reference Range Comments PHOSPHORUS (BEAKER) (test moqt=451) 2.4 mg/dL 2.3-4.7 [id number] 04:08:00 Test Item Value Reference Range Comments MAGNESIUM (BEAKER) (test fxfu=463) 1.8 mg/dL 1.6-2.6 COMPREHENSIVE METABOLIC [id number] 04:08:00 Test Item Value Reference Range Comments TOTAL PROTEIN (BEAKER) 5.8 gm/dL 6.0-8.3 (test ison=761) ALBUMIN (BEAKER) (test 2.3 g/dL 3.5-5.0 kujk=5168) ALKALINE PHOSPHATASE 120 U/L 40-150 (BEAKER) (test nupz=320) BILIRUBIN TOTAL (BEAKER) 11.2 mg/dL 0.2-1.2 (test fjhk=578) SODIUM (BEAKER) (test 137 meq/L 136-145 wnzj=576) POTASSIUM (BEAKER) (test 4.0 meq/L 3.5-5.1 gzsz=432) CHLORIDE (BEAKER) (test 101 meq/L 98-107 yeht=169) CO2 (BEAKER) (test 31 meq/L 22-29 kyhc=084) BLOOD UREA NITROGEN 13 mg/dL 7-21 (BEAKER) (test pcqn=671) CREATININE (BEAKER) (test 0.90 mg/dL 0.57-1.25 oceh=744) GLUCOSE RANDOM (BEAKER) 130 mg/dL 70-105 (test oicc=827) CALCIUM (BEAKER) (test 8.4 mg/dL 8.4-10.2 hbbr=849) AST (SGOT) (BEAKER) (test 55 U/L 5-34 rlnc=291) ALT (SGPT) (BEAKER) (test 35 U/L 6-55 cxxr=635) EGFR (BEAKER) (test 88 mL/min/1.73 sq m ESTIMATED GFR IS NOT zdro=9784) ACCURATE CREATININE CLEARANCE IN PREDICTING GLOMERULAR FILTRATION RATE. ESTIMATED GFR IS NOT APPLICABLE FOR DIALYSIS PATIENTS. Specimen markedly ictericHEPATIC FUNCTION [id number] 04:08:00 Test Item Value Reference Range Comments TOTAL PROTEIN (BEAKER) (test inxt=975) 5.8 gm/dL 6.0-8.3 ALBUMIN (BEAKER) (test oltz=9200) 2.3 g/dL 3.5-5.0 BILIRUBIN TOTAL (BEAKER) (test vbjz=870) 11.2 mg/dL 0.2-1.2 BILIRUBIN DIRECT (BEAKER) (test cmhe=945) 4.3 mg/dL 0.1-0.5 ALKALINE PHOSPHATASE (BEAKER) (test mqmc=964) 120 U/L 40-150 AST (SGOT) (BEAKER) (test sukx=074) 55 U/L 5-34 ALT (SGPT) (BEAKER) (test loox=657) 35 U/L 6-55 Specimen markedly ictericCBC (HEMOGRAM ONLY)2019-04-19 04:07:00 Test Item Value Reference Range Comments WHITE BLOOD CELL COUNT (BEAKER) (test ytbf=658) 5.9 K/ L 3.5-10.5 RED BLOOD CELL COUNT (BEAKER) (test lydg=793) 2.09 M/ L 4.63-6.08 HEMOGLOBIN (BEAKER) (test ijfc=573) 7.3 GM/DL 13.7-17.5 HEMATOCRIT (BEAKER) (test yjit=694) 22.1 % 40.1-51.0 MEAN CORPUSCULAR VOLUME (BEAKER) (test srkl=338) 105.7 fL 79.0-92.2 MEAN CORPUSCULAR HEMOGLOBIN (BEAKER) (test 34.9 pg 25.7-32.2 wpbt=619) MEAN CORPUSCULAR HEMOGLOBIN CONC (BEAKER) (test 33.0 GM/DL 32.3-36.5 hucn=319) RED CELL DISTRIBUTION WIDTH (BEAKER) (test 24.2 % 11.6-14.4 ftqt=349) PLATELET COUNT (BEAKER) (test ubex=119) 40 K/CU MM 150-450 MEAN PLATELET VOLUME (BEAKER) (test ppdf=268) 10.4 fL 9.4-12.4 NUCLEATED RED BLOOD CELLS (BEAKER) (test 0 /100 WBC 0-0 jaqb=442) PROTHROMBIN [id number] 03:57:00 Test Item Value Reference Range Comments PROTIME (BEAKER) (test djxw=755) 30.0 seconds 11.9-14.2 INR (BEAKER) (test apsx=461) 3.0 <=5.9 Effective 09/16/2018: PT Reference Range ChangeNew: 11.9-14.2 Previous: 11.7- 14.7RECOMMENDED COUMADIN/WARFARIN INR THERAPY RANGESSTANDARD DOSE: 2.0-3.0 Includes: PROPHYLAXIS for venous thrombosis, systemic embolization; TREATMENT for venous thrombosis and/or pulmonary embolus.HIGH RISK: Target INR is2.5-3.5 for patients wiht mechanical heart valves.[id number] 03:57:00 Test Item Value Reference Range Comments PROTIME (BEAKER) (test maxw=683) 30.0 seconds 11.9-14.2 INR (BEAKER) (test jtzg=300) 3.0 <=5.9 PARTIAL THROMBOPLASTIN TIME (BEAKER) (test 49.7 seconds 22.5-36.0 odju=875) Effective 09/16/2018: PT Reference Range ChangeNew: 11.9-14.2 Previous: 11.7- 14.7RECOMMENDED COUMADIN/WARFARIN INR THERAPY RANGESSTANDARD DOSE: 2.0-3.0 Includes: PROPHYLAXIS for venous thrombosis, systemic embolization; TREATMENT for venous thrombosis and/or pulmonary embolus.HIGH RISK: Target INR is2.5-3.5 for patients wiht mechanical heart valves.[id number] 17:10:00 Test Item Value Reference Range Comments MAGNESIUM (BEAKER) (test lozn=064) 1.6 mg/dL 1.6-2.6 Call [id number] 17:10:00 Test Item Value Reference Range Comments SODIUM (BEAKER) (test qvet=424) 136 meq/L 136-145 POTASSIUM (BEAKER) (test qrfv=497) 4.1 meq/L 3.5-5.1 CHLORIDE (BEAKER) (test nwpd=671) 99 meq/L 98-107 CO2 (BEAKER) (test okxn=714) 33 meq/L Call [id number] (HEMOGRAM ONLY)2019-04-18 05:44:00 Test Item Value Reference Range Comments WHITE BLOOD CELL COUNT (BEAKER) (test sbbr=699) 5.8 K/ L 3.5-10.5 RED BLOOD CELL COUNT (BEAKER) (test saqa=920) 2.04 M/ L 4.63-6.08 HEMOGLOBIN (BEAKER) (test tqth=221) 7.2 GM/DL 13.7-17.5 HEMATOCRIT (BEAKER) (test kbbq=272) 21.4 % 40.1-51.0 MEAN CORPUSCULAR VOLUME (BEAKER) (test isqk=409) 104.9 fL 79.0-92.2 MEAN CORPUSCULAR HEMOGLOBIN (BEAKER) (test 35.3 pg 25.7-32.2 mtra=106) MEAN CORPUSCULAR HEMOGLOBIN CONC (BEAKER) (test 33.6 GM/DL 32.3-36.5 mqaq=690) RED CELL DISTRIBUTION WIDTH (BEAKER) (test 24.6 % 11.6-14.4 ffio=537) PLATELET COUNT (BEAKER) (test pfcl=927) 43 K/CU MM 150-450 MEAN PLATELET VOLUME (BEAKER) (test mzat=811) 11.4 fL 9.4-12.4 NUCLEATED RED BLOOD CELLS (BEAKER) (test 0 /100 WBC 0-0 etlc=898) B-TYPE NATRIURETIC FACTOR (BNP)2019-04-18 05:33:00 Test Item Value Reference Range Comments B-TYPE NATRIURETIC PEPTIDE (BEAKER) (test 616 pg/mL 0-100 aiim=305) BASIC METABOLIC [id number] 05:32:00 Test Item Value Reference Range Comments SODIUM (BEAKER) (test 136 meq/L 136-145 jqvi=802) POTASSIUM (BEAKER) (test 3.6 meq/L 3.5-5.1 urot=284) CHLORIDE (BEAKER) (test 98 meq/L 98-107 jhpu=721) CO2 (BEAKER) (test 34 meq/L 22-29 ccxk=655) BLOOD UREA NITROGEN 14 mg/dL 7-21 (BEAKER) (test rroo=185) CREATININE (BEAKER) (test 0.81 mg/dL 0.57-1.25 hhte=779) GLUCOSE RANDOM (BEAKER) 124 mg/dL 70-105 (test srwa=628) CALCIUM (BEAKER) (test 7.8 mg/dL 8.4-10.2 lyxf=385) EGFR (BEAKER) (test 100 mL/min/1.73 sq m ESTIMATED GFR IS NOT pruh=4901) ACCURATE CREATININE CLEARANCE IN PREDICTING GLOMERULAR FILTRATION RATE. ESTIMATED GFR IS NOT APPLICABLE FOR DIALYSIS PATIENTS. Specimen markedly [id number] 05:31:00 Test Item Value Reference Range Comments PHOSPHORUS (BEAKER) (test wugo=641) 2.0 mg/dL 2.3-4.7 HEPATIC FUNCTION [id number] 05:31:00 Test Item Value Reference Range Comments TOTAL PROTEIN (BEAKER) (test fmzb=395) 5.7 gm/dL 6.0-8.3 ALBUMIN (BEAKER) (test ryaf=9063) 2.3 g/dL 3.5-5.0 BILIRUBIN TOTAL (BEAKER) (test fwsg=147) 11.1 mg/dL 0.2-1.2 BILIRUBIN DIRECT (BEAKER) (test emum=736) 4.1 mg/dL 0.1-0.5 ALKALINE PHOSPHATASE (BEAKER) (test txmu=162) 116 U/L 40-150 AST (SGOT) (BEAKER) (test iudm=364) 61 U/L 5-34 ALT (SGPT) (BEAKER) (test aeur=607) 38 U/L 6-55 Specimen markedly ictericCALCIUM, [id number] 05:20:00 Test Item Value Reference Range Comments CALCIUM IONIZED (BEAKER) (test vdme=454) 1.00 mmol/L 1.12-1.27 PH, BLOOD (BEAKER) (test lbgz=0910) 7.55 [id number] 05:18:00 Test Item Value Reference Range Comments PROTIME (BEAKER) (test zpes=162) 30.8 seconds 11.9-14.2 INR (BEAKER) (test ixry=592) 3.1 <=5.9 PARTIAL THROMBOPLASTIN TIME (BEAKER) (test 51.5 seconds 22.5-36.0 zutm=958) Effective 09/16/2018: PT Reference Range ChangeNew: 11.9-14.2 Previous: 11.7- 14.7RECOMMENDED COUMADIN/WARFARIN INR THERAPY RANGESSTANDARD DOSE: 2.0-3.0 Includes: PROPHYLAXIS for venous thrombosis, systemic embolization; TREATMENT for venous thrombosis and/or pulmonary embolus.HIGH RISK: Target INR is2.5-3.5 for patients wiht mechanical heart valves.[id number] 19:32:00 Test Item Value Reference Range Comments MAGNESIUM (BEAKER) (test khvw=574) 1.8 mg/dL 1.6-2.6 Call resultsBASIC METABOLIC [id number] 18:20:00 Test Item Value Reference Range Comments SODIUM (BEAKER) (test 139 meq/L 136-145 fnoo=930) POTASSIUM (BEAKER) (test 4.0 meq/L 3.5-5.1 meje=581) CHLORIDE (BEAKER) (test 99 meq/L 98-107 rwjd=559) CO2 (BEAKER) (test 32 meq/L 22-29 yqgi=385) BLOOD UREA NITROGEN 15 mg/dL 7-21 (BEAKER) (test hyiq=543) CREATININE (BEAKER) (test 0.90 mg/dL 0.57-1.25 mnge=874) GLUCOSE RANDOM (BEAKER) 122 mg/dL 70-105 (test wwtp=690) CALCIUM (BEAKER) (test 8.5 mg/dL 8.4-10.2 clui=655) EGFR (BEAKER) (test 88 mL/min/1.73 sq m ESTIMATED GFR IS NOT bxsc=1235) ACCURATE CREATININE CLEARANCE IN PREDICTING GLOMERULAR FILTRATION RATE. ESTIMATED GFR IS NOT APPLICABLE FOR DIALYSIS PATIENTS. Call resultsSpecimen markedly ictericBASIC METABOLIC [id number] 12:54:00 Test Item Value Reference Range Comments SODIUM (BEAKER) (test 141 meq/L 136-145 nzbh=908) POTASSIUM (BEAKER) (test 3.4 meq/L 3.5-5.1 kwtq=196) CHLORIDE (BEAKER) (test 100 meq/L 98-107 ftvu=777) CO2 (BEAKER) (test 34 meq/L 22-29 xkwm=562) BLOOD UREA NITROGEN 15 mg/dL 7-21 (BEAKER) (test uwcc=504) CREATININE (BEAKER) (test 0.84 mg/dL 0.57-1.25 ubjy=618) GLUCOSE RANDOM (BEAKER) 115 mg/dL 70-105 (test twlz=755) CALCIUM (BEAKER) (test 7.7 mg/dL 8.4-10.2 kzmr=898) EGFR (BEAKER) (test 96 mL/min/1.73 sq m ESTIMATED GFR IS NOT vrkx=7842) ACCURATE CREATININE CLEARANCE IN PREDICTING GLOMERULAR FILTRATION RATE. ESTIMATED GFR IS NOT APPLICABLE FOR DIALYSIS PATIENTS. Page [phone] with results, thanks.Specimen markedly ictericCALCIUM, [id number] 06:58:00 Test Item Value Reference Range Comments CALCIUM IONIZED (BEAKER) (test qqkv=762) 0.99 mmol/L 1.12-1.27 PH, BLOOD (BEAKER) (test zqwr=1696) 7.51 COMPREHENSIVE METABOLIC [id number] 06:44:00 Test Item Value Reference Range Comments TOTAL PROTEIN (BEAKER) 5.8 gm/dL 6.0-8.3 (test zlnp=851) ALBUMIN (BEAKER) (test 2.5 g/dL 3.5-5.0 eueh=2132) ALKALINE PHOSPHATASE 119 U/L 40-150 (BEAKER) (test qoys=556) BILIRUBIN TOTAL (BEAKER) 11.1 mg/dL 0.2-1.2 (test gxhk=377) SODIUM (BEAKER) (test 139 meq/L 136-145 dfal=838) POTASSIUM (BEAKER) (test 2.9 meq/L 3.5-5.1 pcnr=053) CHLORIDE (BEAKER) (test 99 meq/L 98-107 almj=541) CO2 (BEAKER) (test 35 meq/L 22-29 vqoq=908) BLOOD UREA NITROGEN 17 mg/dL 7-21 (BEAKER) (test nmzs=761) CREATININE (BEAKER) (test 0.96 mg/dL 0.57-1.25 pgrj=965) GLUCOSE RANDOM (BEAKER) 136 mg/dL 70-105 (test gebw=218) CALCIUM (BEAKER) (test 7.7 mg/dL 8.4-10.2 pdog=429) AST (SGOT) (BEAKER) (test 58 U/L 5-34 hcqc=555) ALT (SGPT) (BEAKER) (test 35 U/L 6-55 imde=919) EGFR (BEAKER) (test 82 mL/min/1.73 sq m ESTIMATED GFR IS NOT rqfw=5188) ACCURATE CREATININE CLEARANCE IN PREDICTING GLOMERULAR FILTRATION RATE. ESTIMATED GFR IS NOT APPLICABLE FOR DIALYSIS PATIENTS. Specimen markedly [id number] 06:34:00 Test Item Value Reference Range Comments PHOSPHORUS (BEAKER) (test dwwo=830) 2.6 mg/dL 2.3-4.7 [id number] 06:34:00 Test Item Value Reference Range Comments MAGNESIUM (BEAKER) (test vpjr=286) 1.4 mg/dL 1.6-2.6 HEPATIC FUNCTION [id number] 06:34:00 Test Item Value Reference Range Comments TOTAL PROTEIN (BEAKER) (test hshs=590) 5.8 gm/dL 6.0-8.3 ALBUMIN (BEAKER) (test vupq=5976) 2.5 g/dL 3.5-5.0 BILIRUBIN TOTAL (BEAKER) (test dpot=334) 11.1 mg/dL 0.2-1.2 BILIRUBIN DIRECT (BEAKER) (test fbkp=790) 4.5 mg/dL 0.1-0.5 ALKALINE PHOSPHATASE (BEAKER) (test bzqr=005) 119 U/L 40-150 AST (SGOT) (BEAKER) (test rrua=859) 58 U/L 5-34 ALT (SGPT) (BEAKER) (test kcml=414) 35 U/L 6-55 Specimen markedly ictericCBC (HEMOGRAM ONLY)[id number] 05:52:00 Test Item Value Reference Range Comments WHITE BLOOD CELL COUNT (BEAKER) (test jwaj=696) 5.1 K/ L 3.5-10.5 RED BLOOD CELL COUNT (BEAKER) (test kdue=705) 1.93 M/ L 4.63-6.08 HEMOGLOBIN (BEAKER) (test nueu=923) 6.7 GM/DL 13.7-17.5 HEMATOCRIT (BEAKER) (test jvup=794) 20.8 % 40.1-51.0 MEAN CORPUSCULAR VOLUME (BEAKER) (test gqqj=396) 107.8 fL 79.0-92.2 MEAN CORPUSCULAR HEMOGLOBIN (BEAKER) (test 34.7 pg 25.7-32.2 sonv=642) MEAN CORPUSCULAR HEMOGLOBIN CONC (BEAKER) (test 32.2 GM/DL 32.3-36.5 yozk=999) RED CELL DISTRIBUTION WIDTH (BEAKER) (test 23.9 % 11.6-14.4 jsyd=583) PLATELET COUNT (BEAKER) (test apij=557) 39 K/CU MM 150-450 MEAN PLATELET VOLUME (BEAKER) (test mpou=486) 10.8 fL 9.4-12.4 NUCLEATED RED BLOOD CELLS (BEAKER) (test 0 /100 WBC 0-0 itik=155) CBC W/PLT COUNT & AUTO [id number] 05:42:00 Test Item Value Reference Range Comments WHITE BLOOD CELL COUNT (BEAKER) (test rqne=525) 5.1 K/ L 3.5-10.5 RED BLOOD CELL COUNT (BEAKER) (test mggx=414) 1.93 M/ L 4.63-6.08 HEMOGLOBIN (BEAKER) (test oavp=809) 6.7 GM/DL 13.7-17.5 HEMATOCRIT (BEAKER) (test iibf=580) 20.8 % 40.1-51.0 MEAN CORPUSCULAR VOLUME (BEAKER) (test gzpi=017) 107.8 fL 79.0-92.2 MEAN CORPUSCULAR HEMOGLOBIN (BEAKER) (test 34.7 pg 25.7-32.2 uazj=960) MEAN CORPUSCULAR HEMOGLOBIN CONC (BEAKER) (test 32.2 GM/DL 32.3-36.5 suuz=275) RED CELL DISTRIBUTION WIDTH (BEAKER) (test 23.9 % 11.6-14.4 sqxa=479) PLATELET COUNT (BEAKER) (test bcfl=325) 39 K/CU MM 150-450 MEAN PLATELET VOLUME (BEAKER) (test ison=711) 10.8 fL 9.4-12.4 NUCLEATED RED BLOOD CELLS (BEAKER) (test 0 /100 WBC 0-0 smip=302) NEUTROPHILS RELATIVE PERCENT (BEAKER) (test 67 % cvzd=579) LYMPHOCYTES RELATIVE PERCENT (BEAKER) (test 19 % qtci=028) MONOCYTES RELATIVE PERCENT (BEAKER) (test 9 % cpbz=053) EOSINOPHILS RELATIVE PERCENT (BEAKER) (test 3 % pfbz=208) BASOPHILS RELATIVE PERCENT (BEAKER) (test 0 % qcfu=795) NEUTROPHILS ABSOLUTE COUNT (BEAKER) (test 3.40 K/ L 1.78-5.38 afry=708) LYMPHOCYTES ABSOLUTE COUNT (BEAKER) (test 0.95 K/ L 1.32-3.57 nwwp=820) MONOCYTES ABSOLUTE COUNT (BEAKER) (test whmt=748) 0.47 K/ L 0.30-0.82 EOSINOPHILS ABSOLUTE COUNT (BEAKER) (test 0.17 K/ L 0.04-0.54 semr=464) BASOPHILS ABSOLUTE COUNT (BEAKER) (test lyhg=122) 0.02 K/ L 0.01-0.08 IMMATURE GRANULOCYTES-RELATIVE PERCENT (BEAKER) 1 % 0-1 (test pchc=1426) [id number] 05:39:00 Test Item Value Reference Range Comments PROTIME (BEAKER) (test urrz=617) 31.1 seconds 11.9-14.2 INR (BEAKER) (test muvs=439) 3.2 <=5.9 PARTIAL THROMBOPLASTIN TIME (BEAKER) (test 53.9 seconds 22.5-36.0 bguf=322) Effective 09/16/2018: PT Reference Range ChangeNew: 11.9-14.2 Previous: 11.7- 14.7RECOMMENDED COUMADIN/WARFARIN INR THERAPY RANGESSTANDARD DOSE: 2.0-3.0 Includes: PROPHYLAXIS for venous thrombosis, systemic embolization; TREATMENT for venous thrombosis and/or pulmonary embolus.HIGH RISK: Target INR is2.5-3.5 for patients wiht mechanical heart valves.PROTHROMBIN TIME/[id number] 05:38: 00 Test Item Value Reference Range Comments PROTIME (BEAKER) (test zztg=589) 31.1 seconds 11.9-14.2 INR (BEAKER) (test covz=282) 3.2 <=5.9 Effective 09/16/2018: PT Reference Range ChangeNew: 11.9-14.2 Previous: 11.7- 14.7RECOMMENDED COUMADIN/WARFARIN INR THERAPY RANGESSTANDARD DOSE: 2.0-3.0 Includes: PROPHYLAXIS for venous thrombosis, systemic embolization; TREATMENT for venous thrombosis and/or pulmonary embolus.HIGH RISK: Target INR is2.5-3.5 for patients wiht mechanical heart valves.CBC W/PLT COUNT & AUTO [id number] 07:26:00 Test Item Value Reference Range Comments WHITE BLOOD CELL COUNT (BEAKER) (test kozw=185) 7.0 K/ L 3.5-10.5 RED BLOOD CELL COUNT (BEAKER) (test rfhl=220) 2.07 M/ L 4.63-6.08 HEMOGLOBIN (BEAKER) (test ubzv=455) 7.5 GM/DL 13.7-17.5 HEMATOCRIT (BEAKER) (test ghdp=138) 22.6 % 40.1-51.0 MEAN CORPUSCULAR VOLUME (BEAKER) (test pegr=778) 109.2 fL 79.0-92.2 MEAN CORPUSCULAR HEMOGLOBIN (BEAKER) (test 36.2 pg 25.7-32.2 yxwf=627) MEAN CORPUSCULAR HEMOGLOBIN CONC (BEAKER) (test 33.2 GM/DL 32.3-36.5 gjzg=567) RED CELL DISTRIBUTION WIDTH (BEAKER) (test 23.3 % 11.6-14.4 wyva=991) PLATELET COUNT (BEAKER) (test obhx=787) 46 K/CU MM 150-450 MEAN PLATELET VOLUME (BEAKER) (test sbkt=935) 11.4 fL 9.4-12.4 NUCLEATED RED BLOOD CELLS (BEAKER) (test 0 /100 WBC 0-0 wpdc=332) NEUTROPHILS RELATIVE PERCENT (BEAKER) (test 75 % ljkk=462) LYMPHOCYTES RELATIVE PERCENT (BEAKER) (test 14 % ruwh=777) MONOCYTES RELATIVE PERCENT (BEAKER) (test 7 % ttoy=543) EOSINOPHILS RELATIVE PERCENT (BEAKER) (test 2 % reeu=132) BASOPHILS RELATIVE PERCENT (BEAKER) (test 0 % uvli=884) NEUTROPHILS ABSOLUTE COUNT (BEAKER) (test 5.27 K/ L 1.78-5.38 qlsa=992) LYMPHOCYTES ABSOLUTE COUNT (BEAKER) (test 1.01 K/ L 1.32-3.57 eyhe=094) MONOCYTES ABSOLUTE COUNT (BEAKER) (test nbuh=283) 0.50 K/ L 0.30-0.82 EOSINOPHILS ABSOLUTE COUNT (BEAKER) (test 0.17 K/ L 0.04-0.54 xqee=845) BASOPHILS ABSOLUTE COUNT (BEAKER) (test dpcq=458) 0.02 K/ L 0.01-0.08 IMMATURE GRANULOCYTES-RELATIVE PERCENT (BEAKER) 1 % 0-1 (test jbyi=9638) [id number] 07:20:00 Test Item Value Reference Range Comments PHOSPHORUS (BEAKER) (test wzgi=706) 3.1 mg/dL 2.3-4.7 [id number] 07:20:00 Test Item Value Reference Range Comments MAGNESIUM (BEAKER) (test thqq=617) 1.4 mg/dL 1.6-2.6 BASIC METABOLIC [id number] 07:20:00 Test Item Value Reference Range Comments SODIUM (BEAKER) (test 142 meq/L 136-145 sysj=909) POTASSIUM (BEAKER) (test 3.9 meq/L 3.5-5.1 dpei=810) CHLORIDE (BEAKER) (test 104 meq/L 98-107 pawp=941) CO2 (BEAKER) (test 31 meq/L 22-29 fnyh=707) BLOOD UREA NITROGEN 25 mg/dL 7-21 (BEAKER) (test kfes=593) CREATININE (BEAKER) (test 1.09 mg/dL 0.57-1.25 jvtq=139) GLUCOSE RANDOM (BEAKER) 129 mg/dL 70-105 (test umvv=433) CALCIUM (BEAKER) (test 8.1 mg/dL 8.4-10.2 rmdm=463) EGFR (BEAKER) (test 71 mL/min/1.73 sq m ESTIMATED GFR IS NOT mpbp=1116) ACCURATE CREATININE CLEARANCE IN PREDICTING GLOMERULAR FILTRATION RATE. ESTIMATED GFR IS NOT APPLICABLE FOR DIALYSIS PATIENTS. Specimen markedly ictericHEPATIC FUNCTION [id number] 07:20:00 Test Item Value Reference Range Comments TOTAL PROTEIN (BEAKER) (test ypvi=990) 6.2 gm/dL 6.0-8.3 ALBUMIN (BEAKER) (test brkg=3552) 2.6 g/dL 3.5-5.0 BILIRUBIN TOTAL (BEAKER) (test pjcy=392) 10.9 mg/dL 0.2-1.2 BILIRUBIN DIRECT (BEAKER) (test aeeq=086) 4.5 mg/dL 0.1-0.5 ALKALINE PHOSPHATASE (BEAKER) (test qsho=884) 130 U/L 40-150 AST (SGOT) (BEAKER) (test aqwz=390) 65 U/L 5-34 ALT (SGPT) (BEAKER) (test uljl=457) 37 U/L 6-55 Specimen markedly ictericCBC (HEMOGRAM ONLY)2019-04-16 06:59:00 Test Item Value Reference Range Comments WHITE BLOOD CELL COUNT (BEAKER) (test ofey=114) 7.0 K/ L 3.5-10.5 RED BLOOD CELL COUNT (BEAKER) (test zccp=580) 2.07 M/ L 4.63-6.08 HEMOGLOBIN (BEAKER) (test adje=653) 7.5 GM/DL 13.7-17.5 HEMATOCRIT (BEAKER) (test hkxq=926) 22.6 % 40.1-51.0 MEAN CORPUSCULAR VOLUME (BEAKER) (test sjgb=715) 109.2 fL 79.0-92.2 MEAN CORPUSCULAR HEMOGLOBIN (BEAKER) (test 36.2 pg 25.7-32.2 ltlj=565) MEAN CORPUSCULAR HEMOGLOBIN CONC (BEAKER) (test 33.2 GM/DL 32.3-36.5 ofdy=689) RED CELL DISTRIBUTION WIDTH (BEAKER) (test 23.3 % 11.6-14.4 asro=017) PLATELET COUNT (BEAKER) (test yvpp=002) 46 K/CU MM 150-450 MEAN PLATELET VOLUME (BEAKER) (test efnd=458) 11.4 fL 9.4-12.4 NUCLEATED RED BLOOD CELLS (BEAKER) (test 0 /100 WBC 0-0 xdyg=800) PROTHROMBIN [id number] 06:47:00 Test Item Value Reference Range Comments PROTIME (BEAKER) (test etfu=341) 29.7 seconds 11.9-14.2 INR (BEAKER) (test hnkz=161) 3.0 <=5.9 Effective 09/16/2018: PT Reference Range ChangeNew: 11.9-14.2 Previous: 11.7- 14.7RECOMMENDED COUMADIN/WARFARIN INR THERAPY RANGESSTANDARD DOSE: 2.0-3.0 Includes: PROPHYLAXIS for venous thrombosis, systemic embolization; TREATMENT for venous thrombosis and/or pulmonary embolus.HIGH RISK: Target INR is2.5-3.5 for patients wiht mechanical heart valves.PT/[id number] 06:47:00 Test Item Value Reference Range Comments PROTIME (BEAKER) (test gtnz=944) 29.7 seconds 11.9-14.2 INR (BEAKER) (test jbbx=476) 3.0 <=5.9 PARTIAL THROMBOPLASTIN TIME (BEAKER) (test 49.2 seconds 22.5-36.0 xizq=486) Effective 09/16/2018: PT Reference Range ChangeNew: 11.9-14.2 Previous: 11.7- 14.7RECOMMENDED COUMADIN/WARFARIN INR THERAPY RANGESSTANDARD DOSE: 2.0-3.0 Includes: PROPHYLAXIS for venous thrombosis, systemic embolization; TREATMENT for venous thrombosis and/or pulmonary embolus.HIGH RISK: Target INR is2.5-3.5 for patients wiht mechanical heart valves.PT/[id number] 06:28:00 Test Item Value Reference Range Comments PROTIME (BEAKER) (test nxyo=039) 30.4 seconds 11.9-14.2 INR (BEAKER) (test vqaa=627) 3.1 <=5.9 PARTIAL THROMBOPLASTIN TIME (BEAKER) (test 54.5 seconds 22.5-36.0 nyro=194) Effective 09/16/2018: PT Reference Range ChangeNew: 11.9-14.2 Previous: 11.7- 14.7RECOMMENDED COUMADIN/WARFARIN INR THERAPY RANGESSTANDARD DOSE: 2.0-3.0 Includes: PROPHYLAXIS for venous thrombosis, systemic embolization; TREATMENT for venous thrombosis and/or pulmonary embolus.HIGH RISK: Target INR is2.5-3.5 for patients wiht mechanical heart valves.PROTHROMBIN TIME/[id number] 06:27: 00 Test Item Value Reference Range Comments PROTIME (BEAKER) (test szsw=640) 30.4 seconds 11.9-14.2 INR (BEAKER) (test nofb=247) 3.1 <=5.9 Effective 09/16/2018: PT Reference Range ChangeNew: 11.9-14.2 Previous: 11.7- 14.7RECOMMENDED COUMADIN/WARFARIN INR THERAPY RANGESSTANDARD DOSE: 2.0-3.0 Includes: PROPHYLAXIS for venous thrombosis, systemic embolization; TREATMENT for venous thrombosis and/or pulmonary embolus.HIGH RISK: Target INR is2.5-3.5 for patients wiht mechanical heart valves.[id number] 06:26:00 Test Item Value Reference Range Comments MAGNESIUM (BEAKER) (test 1.7 mg/dL 1.6-2.6 Specimen slightly hemolyzed zqax=548) BASIC METABOLIC [id number] 06:26:00 Test Item Value Reference Range Comments SODIUM (BEAKER) (test 141 meq/L 136-145 ajtw=416) POTASSIUM (BEAKER) (test 3.5 meq/L 3.5-5.1 Specimen slightly ncjq=960) hemolyzed CHLORIDE (BEAKER) (test 104 meq/L 98-107 tmwq=855) CO2 (BEAKER) (test 26 meq/L 22-29 uupu=397) BLOOD UREA NITROGEN 33 mg/dL 7-21 (BEAKER) (test cqcd=916) CREATININE (BEAKER) (test 1.19 mg/dL 0.57-1.25 Specimen slightly bgxg=334) hemolyzed GLUCOSE RANDOM (BEAKER) 106 mg/dL 70-105 (test orkt=147) CALCIUM (BEAKER) (test 8.0 mg/dL 8.4-10.2 euay=801) EGFR (BEAKER) (test 64 mL/min/1.73 sq m ESTIMATED GFR IS NOT adpr=9950) ACCURATE CREATININE CLEARANCE IN PREDICTING GLOMERULAR FILTRATION RATE. ESTIMATED GFR IS NOT APPLICABLE FOR DIALYSIS PATIENTS. Specimen markedly ictericHEPATIC FUNCTION [id number] 06:26:00 Test Item Value Reference Range Comments TOTAL PROTEIN (BEAKER) (test 6.1 gm/dL 6.0-8.3 Specimen slightly hemolyzed gakg=845) ALBUMIN (BEAKER) (test 2.5 g/dL 3.5-5.0 Specimen slightly hemolyzed dczq=4277) BILIRUBIN TOTAL (BEAKER) (test 10.5 mg/dL 0.2-1.2 Specimen slightly hemolyzed rohy=592) BILIRUBIN DIRECT (BEAKER) 4.1 mg/dL 0.1-0.5 Specimen slightly hemolyzed (test nrtp=442) ALKALINE PHOSPHATASE (BEAKER) 132 U/L 40-150 (test sqhg=529) AST (SGOT) (BEAKER) (test 74 U/L 5-34 Specimen slightly hemolyzed lkqb=649) ALT (SGPT) (BEAKER) (test 37 U/L 6-55 Specimen slightly hemolyzed atmd=566) Specimen markedly ictericCBC (HEMOGRAM ONLY)2019-04-15 06:11:00 Test Item Value Reference Range Comments WHITE BLOOD CELL COUNT (BEAKER) (test pguw=389) 6.8 K/ L 3.5-10.5 RED BLOOD CELL COUNT (BEAKER) (test euql=653) 2.08 M/ L 4.63-6.08 HEMOGLOBIN (BEAKER) (test ffaa=127) 7.5 GM/DL 13.7-17.5 HEMATOCRIT (BEAKER) (test kwrh=216) 22.1 % 40.1-51.0 MEAN CORPUSCULAR VOLUME (BEAKER) (test cvhy=661) 106.3 fL 79.0-92.2 MEAN CORPUSCULAR HEMOGLOBIN (BEAKER) (test 36.1 pg 25.7-32.2 stgu=173) MEAN CORPUSCULAR HEMOGLOBIN CONC (BEAKER) (test 33.9 GM/DL 32.3-36.5 ffnf=654) RED CELL DISTRIBUTION WIDTH (BEAKER) (test 23.0 % 11.6-14.4 cmko=606) PLATELET COUNT (BEAKER) (test gppr=530) 54 K/CU MM 150-450 MEAN PLATELET VOLUME (BEAKER) (test xnmp=838) 11.8 fL 9.4-12.4 NUCLEATED RED BLOOD CELLS (BEAKER) (test 0 /100 WBC 0-0 pcjs=065) [id number] 16:47:00 Test Item Value Reference Range Comments SODIUM (BEAKER) (test zpbj=771) 137 meq/L 136-145 POTASSIUM (BEAKER) (test gheg=550) 3.4 meq/L 3.5-5.1 CHLORIDE (BEAKER) (test qttj=989) 105 meq/L 98-107 CO2 (BEAKER) (test ogas=185) 24 meq/L 22-29 Call [id number], [id number] 04:12:00 Test Item Value Reference Range Comments CALCIUM IONIZED (BEAKER) (test ybfe=626) 1.08 mmol/L 1.12-1.27 PH, BLOOD (BEAKER) (test vpki=7783) 7.48 CBC W/PLT COUNT & AUTO [id number] 04:00:00 Test Item Value Reference Range Comments WHITE BLOOD CELL COUNT 7.5 K/ L 3.5-10.5 (BEAKER) (test coyn=248) RED BLOOD CELL COUNT (BEAKER) 2.18 M/ L 4.63-6.08 (test dmlw=878) HEMOGLOBIN (BEAKER) (test 7.8 GM/DL 13.7-17.5 oyog=107) HEMATOCRIT (BEAKER) (test 23.4 % 40.1-51.0 hxlf=560) MEAN CORPUSCULAR VOLUME 107.3 fL 79.0-92.2 (BEAKER) (test duol=982) MEAN CORPUSCULAR HEMOGLOBIN 35.8 pg 25.7-32.2 (BEAKER) (test yxzx=164) MEAN CORPUSCULAR HEMOGLOBIN 33.3 GM/DL 32.3-36.5 CONC (BEAKER) (test eqyh=512) RED CELL DISTRIBUTION WIDTH 22.6 % 11.6-14.4 (BEAKER) (test qric=558) PLATELET COUNT (BEAKER) (test 51 K/CU MM 150-450 Discordant PLT result mgny=275) compared to previous result; clinical correlation required. MEAN PLATELET VOLUME (BEAKER) 12.1 fL 9.4-12.4 (test ifva=353) NUCLEATED RED BLOOD CELLS 0 /100 WBC 0-0 (BEAKER) (test lxsa=795) NEUTROPHILS RELATIVE PERCENT 78 % (BEAKER) (test crao=807) LYMPHOCYTES RELATIVE PERCENT 10 % (BEAKER) (test bpht=026) MONOCYTES RELATIVE PERCENT 7 % (BEAKER) (test wcic=151) EOSINOPHILS RELATIVE PERCENT 2 % (BEAKER) (test qjbm=376) BASOPHILS RELATIVE PERCENT 0 % (BEAKER) (test nroj=775) NEUTROPHILS ABSOLUTE COUNT 5.87 K/ L 1.78-5.38 (BEAKER) (test kwux=138) LYMPHOCYTES ABSOLUTE COUNT 0.72 K/ L 1.32-3.57 (BEAKER) (test tejg=385) MONOCYTES ABSOLUTE COUNT 0.53 K/ L 0.30-0.82 (BEAKER) (test lhmk=459) EOSINOPHILS ABSOLUTE COUNT 0.14 K/ L 0.04-0.54 (BEAKER) (test ulrd=453) BASOPHILS ABSOLUTE COUNT 0.01 K/ L 0.01-0.08 (BEAKER) (test edcz=002) IMMATURE GRANULOCYTES-RELATIVE 3 % 0-1 PERCENT (BEAKER) (test nlfa=6038) [id number] 03:57:00 Test Item Value Reference Range Comments PHOSPHORUS (BEAKER) (test jlbo=862) 3.0 mg/dL 2.3-4.7 [id number] 03:57:00 Test Item Value Reference Range Comments MAGNESIUM (BEAKER) (test lrci=776) 2.2 mg/dL 1.6-2.6 COMPREHENSIVE METABOLIC [id number] 03:57:00 Test Item Value Reference Range Comments TOTAL PROTEIN (BEAKER) 6.7 gm/dL 6.0-8.3 (test mtxu=521) ALBUMIN (BEAKER) (test 2.9 g/dL 3.5-5.0 lfoz=4461) ALKALINE PHOSPHATASE 146 U/L 40-150 (BEAKER) (test zebk=667) BILIRUBIN TOTAL (BEAKER) 10.9 mg/dL 0.2-1.2 (test ptjw=749) SODIUM (BEAKER) (test 134 meq/L 136-145 mwbu=783) POTASSIUM (BEAKER) (test 4.2 meq/L 3.5-5.1 xfpt=746) CHLORIDE (BEAKER) (test 104 meq/L 98-107 geve=519) CO2 (BEAKER) (test 23 meq/L 22-29 wpqt=806) BLOOD UREA NITROGEN 40 mg/dL 7-21 (BEAKER) (test bdes=377) CREATININE (BEAKER) (test 1.29 mg/dL 0.57-1.25 wpnb=403) GLUCOSE RANDOM (BEAKER) 120 mg/dL 70-105 (test oybu=468) CALCIUM (BEAKER) (test 8.4 mg/dL 8.4-10.2 ldmp=673) AST (SGOT) (BEAKER) (test 73 U/L 5-34 hrdk=490) ALT (SGPT) (BEAKER) (test 40 U/L 6-55 jxix=705) EGFR (BEAKER) (test 58 mL/min/1.73 sq m ESTIMATED GFR IS NOT lisa=2562) ACCURATE CREATININE CLEARANCE IN PREDICTING GLOMERULAR FILTRATION RATE. ESTIMATED GFR IS NOT APPLICABLE FOR DIALYSIS PATIENTS. Specimen markedly ictericHEPATIC FUNCTION [id number] 03:57:00 Test Item Value Reference Range Comments TOTAL PROTEIN (BEAKER) (test rkez=812) 6.7 gm/dL 6.0-8.3 ALBUMIN (BEAKER) (test vvqe=2521) 2.9 g/dL 3.5-5.0 BILIRUBIN TOTAL (BEAKER) (test htuy=227) 10.9 mg/dL 0.2-1.2 BILIRUBIN DIRECT (BEAKER) (test zyel=611) 4.6 mg/dL 0.1-0.5 ALKALINE PHOSPHATASE (BEAKER) (test ssmj=192) 146 U/L 40-150 AST (SGOT) (BEAKER) (test twdj=572) 73 U/L 5-34 ALT (SGPT) (BEAKER) (test plrc=303) 40 U/L 6-55 Specimen markedly ictericPT/[id number] 03:51:00 Test Item Value Reference Range Comments PROTIME (BEAKER) (test oqve=515) 27.3 seconds 11.9-14.2 INR (BEAKER) (test hhot=934) 2.7 <=5.9 PARTIAL THROMBOPLASTIN TIME (BEAKER) (test 40.4 seconds 22.5-36.0 tsjw=036) Effective 09/16/2018: PT Reference Range ChangeNew: 11.9-14.2 Previous: 11.7- 14.7RECOMMENDED COUMADIN/WARFARIN INR THERAPY RANGESSTANDARD DOSE: 2.0-3.0 Includes: PROPHYLAXIS for venous thrombosis, systemic embolization; TREATMENT for venous thrombosis and/or pulmonary embolus.HIGH RISK: Target INR is2.5-3.5 for patients wiht mechanical heart valves.PROTHROMBIN TIME/[id number] 03:50: 00 Test Item Value Reference Range Comments PROTIME (BEAKER) (test fnyx=089) 27.3 seconds 11.9-14.2 INR (BEAKER) (test erlw=745) 2.7 <=5.9 Effective 09/16/2018: PT Reference Range ChangeNew: 11.9-14.2 Previous: 11.7- 14.7RECOMMENDED COUMADIN/WARFARIN INR THERAPY RANGESSTANDARD DOSE: 2.0-3.0 Includes: PROPHYLAXIS for venous thrombosis, systemic embolization; TREATMENT for venous thrombosis and/or pulmonary embolus.HIGH RISK: Target INR is2.5-3.5 for patients wiht mechanical heart valves.RAD, CHEST, 1 VIEW, NON [id number] 10:08:00Reason for exam:->Fluid overloadShould this be performed at the bedside?->YesFINAL REPORT INDICATION: Fluid overload COMPARISON: None TECHNIQUE: Single frontal view of the chest. FINDINGS: Lungs and pleura: Bibasilar airspace disease. Trace bilateral effusions. Lungs are hypoinflated. No effusion.Heart and mediastinum: Normal heart size. Unremarkable mediastinal contours.Osseous structures: No acute abnormality.Other : None. IMPRESSION: Mild pulmonary edema Signed: Lucrecia Michele Verified Date/Time: 04/13/2019 10:08:37 Reading Location: [facility] Radiology Reading Room [id number] 07:47:00 Test Item Value Reference Range Comments PROTIME (BEAKER) (test bpjh=043) 27.7 seconds 11.9-14.2 INR (BEAKER) (test hbhk=079) 2.8 <=5.9 PARTIAL THROMBOPLASTIN TIME (BEAKER) (test 49.7 seconds 22.5-36.0 fjlt=105) Effective 09/16/2018: PT Reference Range ChangeNew: 11.9-14.2 Previous: 11.7- 14.7RECOMMENDED COUMADIN/WARFARIN INR THERAPY RANGESSTANDARD DOSE: 2.0-3.0 Includes: PROPHYLAXIS for venous thrombosis, systemic embolization; TREATMENT for venous thrombosis and/or pulmonary embolus.HIGH RISK: Target INR is2.5-3.5 for patients wiht mechanical heart valves.PROTHROMBIN TIME/[id number] 07:46: 00 Test Item Value Reference Range Comments PROTIME (BEAKER) (test vmci=395) 27.7 seconds 11.9-14.2 INR (BEAKER) (test ccge=972) 2.8 <=5.9 Effective 09/16/2018: PT Reference Range ChangeNew: 11.9-14.2 Previous: 11.7- 14.7RECOMMENDED COUMADIN/WARFARIN INR THERAPY RANGESSTANDARD DOSE: 2.0-3.0 Includes: PROPHYLAXIS for venous thrombosis, systemic embolization; TREATMENT for venous thrombosis and/or pulmonary embolus.HIGH RISK: Target INR is2.5-3.5 for patients wiht mechanical heart valves.B-TYPE NATRIURETIC FACTOR (BNP)2019-03 07:44:00 Test Item Value Reference Range Comments B-TYPE NATRIURETIC PEPTIDE (BEAKER) (test 1361 pg/mL 0-100 tdvt=763) [id number] 07:38:00 Test Item Value Reference Range Comments PHOSPHORUS (BEAKER) (test pnmd=159) 3.0 mg/dL 2.3-4.7 [id number] 07:38:00 Test Item Value Reference Range Comments MAGNESIUM (BEAKER) (test vild=476) 2.5 mg/dL 1.6-2.6 BASIC METABOLIC [id number] 07:38:00 Test Item Value Reference Range Comments SODIUM (BEAKER) (test 132 meq/L 136-145 aefb=554) POTASSIUM (BEAKER) (test 4.5 meq/L 3.5-5.1 duio=573) CHLORIDE (BEAKER) (test 104 meq/L 98-107 qkuu=438) CO2 (BEAKER) (test 24 meq/L 22-29 rcqz=039) BLOOD UREA NITROGEN 46 mg/dL 7-21 (BEAKER) (test auph=132) CREATININE (BEAKER) (test 1.50 mg/dL 0.57-1.25 wjwi=661) GLUCOSE RANDOM (BEAKER) 123 mg/dL 70-105 (test mkqy=252) CALCIUM (BEAKER) (test 8.2 mg/dL 8.4-10.2 dqsq=850) EGFR (BEAKER) (test 49 mL/min/1.73 sq m ESTIMATED GFR IS NOT igma=0800) ACCURATE CREATININE CLEARANCE IN PREDICTING GLOMERULAR FILTRATION RATE. ESTIMATED GFR IS NOT APPLICABLE FOR DIALYSIS PATIENTS. Specimen markedly ictericHEPATIC FUNCTION [id number] 07:38:00 Test Item Value Reference Range Comments TOTAL PROTEIN (BEAKER) (test cjmk=284) 6.1 gm/dL 6.0-8.3 ALBUMIN (BEAKER) (test ohzg=9587) 2.7 g/dL 3.5-5.0 BILIRUBIN TOTAL (BEAKER) (test ykti=080) 9.2 mg/dL 0.2-1.2 BILIRUBIN DIRECT (BEAKER) (test hvid=806) 4.2 mg/dL 0.1-0.5 ALKALINE PHOSPHATASE (BEAKER) (test wprr=710) 136 U/L 40-150 AST (SGOT) (BEAKER) (test ailn=724) 61 U/L 5-34 ALT (SGPT) (BEAKER) (test dlrq=933) 34 U/L 6-55 Specimen markedly ictericCBC (HEMOGRAM ONLY)2019-04-13 07:36:00 Test Item Value Reference Range Comments WHITE BLOOD CELL COUNT (BEAKER) (test cpbb=193) 5.3 K/ L 3.5-10.5 RED BLOOD CELL COUNT (BEAKER) (test zyxp=289) 1.93 M/ L 4.63-6.08 HEMOGLOBIN (BEAKER) (test pnap=174) 6.9 GM/DL 13.7-17.5 HEMATOCRIT (BEAKER) (test uegp=774) 21.1 % 40.1-51.0 MEAN CORPUSCULAR VOLUME (BEAKER) (test mrje=513) 109.3 fL 79.0-92.2 MEAN CORPUSCULAR HEMOGLOBIN (BEAKER) (test 35.8 pg 25.7-32.2 kmhu=322) MEAN CORPUSCULAR HEMOGLOBIN CONC (BEAKER) (test 32.7 GM/DL 32.3-36.5 kkxm=036) RED CELL DISTRIBUTION WIDTH (BEAKER) (test 22.0 % 11.6-14.4 uplp=527) PLATELET COUNT (BEAKER) (test eula=352) 30 K/CU MM 150-450 MEAN PLATELET VOLUME (BEAKER) (test sbzz=023) 11.5 fL 9.4-12.4 NUCLEATED RED BLOOD CELLS (BEAKER) (test 0 /100 WBC 0-0 xjrh=676) CALCIUM, [id number] 07:30:00 Test Item Value Reference Range Comments CALCIUM IONIZED (BEAKER) (test qmxt=585) 1.12 mmol/L 1.12-1.27 PH, BLOOD (BEAKER) (test zzvu=7196) 7.44 CBC (HEMOGRAM ONLY)2019-04-12 06:00:00 Test Item Value Reference Range Comments WHITE BLOOD CELL COUNT (BEAKER) (test tssv=138) 5.0 K/ L 3.5-10.5 RED BLOOD CELL COUNT (BEAKER) (test hdre=019) 2.07 M/ L 4.63-6.08 HEMOGLOBIN (BEAKER) (test eajg=193) 7.2 GM/DL 13.7-17.5 HEMATOCRIT (BEAKER) (test lbpa=749) 22.1 % 40.1-51.0 MEAN CORPUSCULAR VOLUME (BEAKER) (test zavn=859) 106.8 fL 79.0-92.2 MEAN CORPUSCULAR HEMOGLOBIN (BEAKER) (test 34.8 pg 25.7-32.2 cske=072) MEAN CORPUSCULAR HEMOGLOBIN CONC (BEAKER) (test 32.6 GM/DL 32.3-36.5 shpv=575) RED CELL DISTRIBUTION WIDTH (BEAKER) (test 21.8 % 11.6-14.4 geeg=295) PLATELET COUNT (BEAKER) (test pwla=986) 29 K/CU MM 150-450 MEAN PLATELET VOLUME (BEAKER) (test iyon=952) 12.2 fL 9.4-12.4 NUCLEATED RED BLOOD CELLS (BEAKER) (test 0 /100 WBC 0-0 zfbm=036) [id number] 05:48:00 Test Item Value Reference Range Comments MAGNESIUM (BEAKER) (test tstg=854) 2.6 mg/dL 1.6-2.6 BASIC METABOLIC [id number] 05:48:00 Test Item Value Reference Range Comments SODIUM (BEAKER) (test 131 meq/L 136-145 msiw=153) POTASSIUM (BEAKER) (test 4.7 meq/L 3.5-5.1 uugr=669) CHLORIDE (BEAKER) (test 103 meq/L 98-107 ylhx=093) CO2 (BEAKER) (test 23 meq/L 22-29 hevx=201) BLOOD UREA NITROGEN 48 mg/dL 7-21 (BEAKER) (test uimx=010) CREATININE (BEAKER) (test 1.53 mg/dL 0.57-1.25 mfld=225) GLUCOSE RANDOM (BEAKER) 108 mg/dL 70-105 (test smlq=782) CALCIUM (BEAKER) (test 8.3 mg/dL 8.4-10.2 duac=407) EGFR (BEAKER) (test 48 mL/min/1.73 sq m ESTIMATED GFR IS NOT cxxg=5226) ACCURATE CREATININE CLEARANCE IN PREDICTING GLOMERULAR FILTRATION RATE. ESTIMATED GFR IS NOT APPLICABLE FOR DIALYSIS PATIENTS. Specimen markedly ictericHEPATIC FUNCTION [id number] 05:48:00 Test Item Value Reference Range Comments TOTAL PROTEIN (BEAKER) (test tqud=639) 6.3 gm/dL 6.0-8.3 ALBUMIN (BEAKER) (test oqbn=8610) 2.8 g/dL 3.5-5.0 BILIRUBIN TOTAL (BEAKER) (test kgjt=711) 9.9 mg/dL 0.2-1.2 BILIRUBIN DIRECT (BEAKER) (test tytl=242) 4.6 mg/dL 0.1-0.5 ALKALINE PHOSPHATASE (BEAKER) (test gkxz=270) 124 U/L 40-150 AST (SGOT) (BEAKER) (test dsfw=670) 60 U/L 5-34 ALT (SGPT) (BEAKER) (test qdyi=416) 36 U/L 6-55 Specimen markedly ictericPT/[id number] 05:27:00 Test Item Value Reference Range Comments PROTIME (BEAKER) (test khcv=672) 27.2 seconds 11.9-14.2 INR (BEAKER) (test wqwh=650) 2.7 <=5.9 PARTIAL THROMBOPLASTIN TIME (BEAKER) (test 47.0 seconds 22.5-36.0 bmap=613) Effective 09/16/2018: PT Reference Range ChangeNew: 11.9-14.2 Previous: 11.7- 14.7RECOMMENDED COUMADIN/WARFARIN INR THERAPY RANGESSTANDARD DOSE: 2.0-3.0 Includes: PROPHYLAXIS for venous thrombosis, systemic embolization; TREATMENT for venous thrombosis and/or pulmonary embolus.HIGH RISK: Target INR is2.5-3.5 for patients wiht mechanical heart valves.PROTHROMBIN TIME/[id number] 05:26: 00 Test Item Value Reference Range Comments PROTIME (BEAKER) (test dxoz=066) 27.2 seconds 11.9-14.2 INR (BEAKER) (test lqgo=504) 2.7 <=5.9 Effective 09/16/2018: PT Reference Range ChangeNew: 11.9-14.2 Previous: 11.7- 14.7RECOMMENDED COUMADIN/WARFARIN INR THERAPY RANGESSTANDARD DOSE: 2.0-3.0 Includes: PROPHYLAXIS for venous thrombosis, systemic embolization; TREATMENT for venous thrombosis and/or pulmonary embolus.HIGH RISK: Target INR is2.5-3.5 for patients wiht mechanical heart valves.[id number] 04:25:00 Test Item Value Reference Range Comments MAGNESIUM (BEAKER) (test dsac=524) 2.4 mg/dL 1.6-2.6 BASIC METABOLIC [id number] 04:25:00 Test Item Value Reference Range Comments SODIUM (BEAKER) (test 132 meq/L 136-145 qink=246) POTASSIUM (BEAKER) (test 4.4 meq/L 3.5-5.1 czdg=326) CHLORIDE (BEAKER) (test 104 meq/L 98-107 jvas=176) CO2 (BEAKER) (test 22 meq/L 22-29 htbc=374) BLOOD UREA NITROGEN 48 mg/dL 7-21 (BEAKER) (test tuhy=059) CREATININE (BEAKER) (test 1.66 mg/dL 0.57-1.25 ybnz=193) GLUCOSE RANDOM (BEAKER) 110 mg/dL 70-105 (test mfgh=644) CALCIUM (BEAKER) (test 8.2 mg/dL 8.4-10.2 cwbq=281) EGFR (BEAKER) (test 44 mL/min/1.73 sq m ESTIMATED GFR IS NOT qodf=7187) ACCURATE CREATININE CLEARANCE IN PREDICTING GLOMERULAR FILTRATION RATE. ESTIMATED GFR IS NOT APPLICABLE FOR DIALYSIS PATIENTS. Specimen markedly ictericHEPATIC FUNCTION [id number] 04:25:00 Test Item Value Reference Range Comments TOTAL PROTEIN (BEAKER) (test fesa=616) 6.3 gm/dL 6.0-8.3 ALBUMIN (BEAKER) (test vmlp=5224) 2.8 g/dL 3.5-5.0 BILIRUBIN TOTAL (BEAKER) (test qysr=978) 11.6 mg/dL 0.2-1.2 BILIRUBIN DIRECT (BEAKER) (test blrn=511) 5.1 mg/dL 0.1-0.5 ALKALINE PHOSPHATASE (BEAKER) (test wroa=329) 120 U/L 40-150 AST (SGOT) (BEAKER) (test jzta=521) 54 U/L 5-34 ALT (SGPT) (BEAKER) (test fyar=402) 31 U/L 6-55 Specimen markedly ictericCALCIUM, [id number] 04:23:00 Test Item Value Reference Range Comments CALCIUM IONIZED (BEAKER) (test faub=515) 1.01 mmol/L 1.12-1.27 PH, BLOOD (BEAKER) (test ljal=7150) 7.49 PT/[id number] 04:14:00 Test Item Value Reference Range Comments PROTIME (BEAKER) (test ihrg=306) 27.9 seconds 11.9-14.2 INR (BEAKER) (test rmul=970) 2.8 <=5.9 PARTIAL THROMBOPLASTIN TIME (BEAKER) (test 51.9 seconds 22.5-36.0 xgzy=336) Effective 09/16/2018: PT Reference Range ChangeNew: 11.9-14.2 Previous: 11.7- 14.7RECOMMENDED COUMADIN/WARFARIN INR THERAPY RANGESSTANDARD DOSE: 2.0-3.0 Includes: PROPHYLAXIS for venous thrombosis, systemic embolization; TREATMENT for venous thrombosis and/or pulmonary embolus.HIGH RISK: Target INR is2.5-3.5 for patients wiht mechanical heart valves.CBC (HEMOGRAM ONLY)2019-04-11 04:13:00 Test Item Value Reference Range Comments WHITE BLOOD CELL COUNT (BEAKER) (test ubbz=838) 5.3 K/ L 3.5-10.5 RED BLOOD CELL COUNT (BEAKER) (test knzz=572) 2.04 M/ L 4.63-6.08 HEMOGLOBIN (BEAKER) (test fxwm=826) 7.3 GM/DL 13.7-17.5 HEMATOCRIT (BEAKER) (test yiko=586) 22.2 % 40.1-51.0 MEAN CORPUSCULAR VOLUME (BEAKER) (test fyvo=425) 108.8 fL 79.0-92.2 MEAN CORPUSCULAR HEMOGLOBIN (BEAKER) (test 35.8 pg 25.7-32.2 typv=963) MEAN CORPUSCULAR HEMOGLOBIN CONC (BEAKER) (test 32.9 GM/DL 32.3-36.5 vkgf=459) RED CELL DISTRIBUTION WIDTH (BEAKER) (test 21.2 % 11.6-14.4 ubdc=431) PLATELET COUNT (BEAKER) (test ljmb=539) 26 K/CU MM 150-450 MEAN PLATELET VOLUME (BEAKER) (test myjh=464) 11.9 fL 9.4-12.4 NUCLEATED RED BLOOD CELLS (BEAKER) (test 0 /100 WBC 0-0 kusb=937) BLOOD [id number] 09:01:00 Test Item Value Reference Range Comments CULTURE (BEAKER) (test rmaj=7073) No growth in 5 days BLOOD [id number] 09:01:00 Test Item Value Reference Range Comments CULTURE (BEAKER) (test omvk=8073) No growth in 5 days CALCIUM, [id number] 06:14:00 Test Item Value Reference Range Comments CALCIUM IONIZED (BEAKER) (test fnxx=440) 1.13 mmol/L 1.12-1.27 PH, BLOOD (BEAKER) (test rywa=4218) 7.41 [id number] 04:48:00 Test Item Value Reference Range Comments PHOSPHORUS (BEAKER) (test kzgt=441) 3.4 mg/dL 2.3-4.7 [id number] 04:48:00 Test Item Value Reference Range Comments MAGNESIUM (BEAKER) (test wwiv=838) 2.5 mg/dL 1.6-2.6 COMPREHENSIVE METABOLIC [id number] 04:48:00 Test Item Value Reference Range Comments TOTAL PROTEIN (BEAKER) 6.1 gm/dL 6.0-8.3 (test fvpm=250) ALBUMIN (BEAKER) (test 2.8 g/dL 3.5-5.0 bfrk=6951) ALKALINE PHOSPHATASE 113 U/L 40-150 (BEAKER) (test hpap=699) BILIRUBIN TOTAL (BEAKER) 11.1 mg/dL 0.2-1.2 (test aqam=322) SODIUM (BEAKER) (test 133 meq/L 136-145 lxai=580) POTASSIUM (BEAKER) (test 4.7 meq/L 3.5-5.1 cnbm=568) CHLORIDE (BEAKER) (test 104 meq/L 98-107 npfi=239) CO2 (BEAKER) (test 22 meq/L 22-29 adau=278) BLOOD UREA NITROGEN 48 mg/dL 7-21 (BEAKER) (test htsh=610) CREATININE (BEAKER) (test 1.63 mg/dL 0.57-1.25 pirq=283) GLUCOSE RANDOM (BEAKER) 120 mg/dL 70-105 (test uhgu=019) CALCIUM (BEAKER) (test 8.2 mg/dL 8.4-10.2 ovdl=277) AST (SGOT) (BEAKER) (test 52 U/L 5-34 runn=995) ALT (SGPT) (BEAKER) (test 30 U/L 6-55 vrrk=570) EGFR (BEAKER) (test 44 mL/min/1.73 sq m ESTIMATED GFR IS NOT cweb=6030) ACCURATE CREATININE CLEARANCE IN PREDICTING GLOMERULAR FILTRATION RATE. ESTIMATED GFR IS NOT APPLICABLE FOR DIALYSIS PATIENTS. Specimen markedly ictericHEPATIC FUNCTION [id number] 04:48:00 Test Item Value Reference Range Comments TOTAL PROTEIN (BEAKER) (test oxzl=396) 6.1 gm/dL 6.0-8.3 ALBUMIN (BEAKER) (test swxe=0164) 2.8 g/dL 3.5-5.0 BILIRUBIN TOTAL (BEAKER) (test jthu=148) 11.1 mg/dL 0.2-1.2 BILIRUBIN DIRECT (BEAKER) (test fnry=854) 4.8 mg/dL 0.1-0.5 ALKALINE PHOSPHATASE (BEAKER) (test bjqy=435) 113 U/L 40-150 AST (SGOT) (BEAKER) (test tbia=543) 52 U/L 5-34 ALT (SGPT) (BEAKER) (test qyhb=593) 30 U/L 6-55 Specimen markedly ictericPT/[id number] 04:27:00 Test Item Value Reference Range Comments PROTIME (BEAKER) (test cmrk=915) 27.0 seconds 11.9-14.2 INR (BEAKER) (test peve=915) 2.6 <=5.9 PARTIAL THROMBOPLASTIN TIME (BEAKER) (test 48.5 seconds 22.5-36.0 rpry=527) Effective 09/16/2018: PT Reference Range ChangeNew: 11.9-14.2 Previous: 11.7- 14.7RECOMMENDED COUMADIN/WARFARIN INR THERAPY RANGESSTANDARD DOSE: 2.0-3.0 Includes: PROPHYLAXIS for venous thrombosis, systemic embolization; TREATMENT for venous thrombosis and/or pulmonary embolus.HIGH RISK: Target INR is2.5-3.5 for patients wiht mechanical heart valves.PROTHROMBIN TIME/[id number] 04:26: 00 Test Item Value Reference Range Comments PROTIME (BEAKER) (test qllw=554) 27.0 seconds 11.9-14.2 INR (BEAKER) (test zmza=011) 2.6 <=5.9 Effective 09/16/2018: PT Reference Range ChangeNew: 11.9-14.2 Previous: 11.7- 14.7RECOMMENDED COUMADIN/WARFARIN INR THERAPY RANGESSTANDARD DOSE: 2.0-3.0 Includes: PROPHYLAXIS for venous thrombosis, systemic embolization; TREATMENT for venous thrombosis and/or pulmonary embolus.HIGH RISK: Target INR is2.5-3.5 for patients wiht mechanical heart valves.CBC W/PLT COUNT & AUTO [id number] 04:23:00 Test Item Value Reference Range Comments WHITE BLOOD CELL COUNT (BEAKER) (test phzk=378) 4.1 K/ L 3.5-10.5 RED BLOOD CELL COUNT (BEAKER) (test qfif=418) 2.07 M/ L 4.63-6.08 HEMOGLOBIN (BEAKER) (test dmmn=046) 7.1 GM/DL 13.7-17.5 HEMATOCRIT (BEAKER) (test orgo=104) 22.1 % 40.1-51.0 MEAN CORPUSCULAR VOLUME (BEAKER) (test qsvq=248) 106.8 fL 79.0-92.2 MEAN CORPUSCULAR HEMOGLOBIN (BEAKER) (test 34.3 pg 25.7-32.2 ueyt=579) MEAN CORPUSCULAR HEMOGLOBIN CONC (BEAKER) (test 32.1 GM/DL 32.3-36.5 kefm=757) RED CELL DISTRIBUTION WIDTH (BEAKER) (test 21.6 % 11.6-14.4 xsld=361) PLATELET COUNT (BEAKER) (test gmnf=571) 28 K/CU MM 150-450 MEAN PLATELET VOLUME (BEAKER) (test ixpk=937) 11.8 fL 9.4-12.4 NUCLEATED RED BLOOD CELLS (BEAKER) (test 0 /100 WBC 0-0 aocx=179) NEUTROPHILS RELATIVE PERCENT (BEAKER) (test 76 % fqar=869) LYMPHOCYTES RELATIVE PERCENT (BEAKER) (test 10 % cpxx=081) MONOCYTES RELATIVE PERCENT (BEAKER) (test 11 % yitq=382) EOSINOPHILS RELATIVE PERCENT (BEAKER) (test 3 % vwlh=715) BASOPHILS RELATIVE PERCENT (BEAKER) (test 0 % eerp=103) NEUTROPHILS ABSOLUTE COUNT (BEAKER) (test 3.07 K/ L 1.78-5.38 bkge=912) LYMPHOCYTES ABSOLUTE COUNT (BEAKER) (test 0.40 K/ L 1.32-3.57 zdtq=277) MONOCYTES ABSOLUTE COUNT (BEAKER) (test nboa=806) 0.44 K/ L 0.30-0.82 EOSINOPHILS ABSOLUTE COUNT (BEAKER) (test 0.10 K/ L 0.04-0.54 vinm=696) BASOPHILS ABSOLUTE COUNT (BEAKER) (test pyyd=972) 0.01 K/ L 0.01-0.08 IMMATURE GRANULOCYTES-RELATIVE PERCENT (BEAKER) 1 % 0-1 (test bcub=6617) CALCIUM, [id number] 06:53:00 Test Item Value Reference Range Comments CALCIUM IONIZED (BEAKER) (test ivux=560) 1.09 mmol/L 1.12-1.27 PH, BLOOD (BEAKER) (test lebb=3474) 7.43 CBC W/PLT COUNT & AUTO [id number] 05:21:00 Test Item Value Reference Range Comments WHITE BLOOD CELL COUNT (BEAKER) (test lmvr=852) 4.7 K/ L 3.5-10.5 RED BLOOD CELL COUNT (BEAKER) (test ydwm=908) 2.12 M/ L 4.63-6.08 HEMOGLOBIN (BEAKER) (test jxnr=556) 7.5 GM/DL 13.7-17.5 HEMATOCRIT (BEAKER) (test eymb=274) 22.7 % 40.1-51.0 MEAN CORPUSCULAR VOLUME (BEAKER) (test tyko=534) 107.1 fL 79.0-92.2 MEAN CORPUSCULAR HEMOGLOBIN (BEAKER) (test 35.4 pg 25.7-32.2 rjof=839) MEAN CORPUSCULAR HEMOGLOBIN CONC (BEAKER) (test 33.0 GM/DL 32.3-36.5 zble=559) RED CELL DISTRIBUTION WIDTH (BEAKER) (test 21.5 % 11.6-14.4 mlmr=105) PLATELET COUNT (BEAKER) (test auno=751) 31 K/CU MM 150-450 MEAN PLATELET VOLUME (BEAKER) (test qcck=638) 12.1 fL 9.4-12.4 NUCLEATED RED BLOOD CELLS (BEAKER) (test 0 /100 WBC 0-0 wztc=983) NEUTROPHILS RELATIVE PERCENT (BEAKER) (test 81 % ikfp=891) LYMPHOCYTES RELATIVE PERCENT (BEAKER) (test 9 % wjbh=327) MONOCYTES RELATIVE PERCENT (BEAKER) (test 7 % ugna=782) EOSINOPHILS RELATIVE PERCENT (BEAKER) (test 2 % cacu=099) BASOPHILS RELATIVE PERCENT (BEAKER) (test 0 % mrkv=270) NEUTROPHILS ABSOLUTE COUNT (BEAKER) (test 3.78 K/ L 1.78-5.38 szas=613) LYMPHOCYTES ABSOLUTE COUNT (BEAKER) (test 0.41 K/ L 1.32-3.57 zalz=389) MONOCYTES ABSOLUTE COUNT (BEAKER) (test zefz=507) 0.32 K/ L 0.30-0.82 EOSINOPHILS ABSOLUTE COUNT (BEAKER) (test 0.10 K/ L 0.04-0.54 motr=858) BASOPHILS ABSOLUTE COUNT (BEAKER) (test mafv=412) 0.01 K/ L 0.01-0.08 IMMATURE GRANULOCYTES-RELATIVE PERCENT (BEAKER) 1 % 0-1 (test kvbx=8487) [id number] 05:13:00 Test Item Value Reference Range Comments PHOSPHORUS (BEAKER) (test lxyb=007) 3.8 mg/dL 2.3-4.7 [id number] 05:13:00 Test Item Value Reference Range Comments MAGNESIUM (BEAKER) (test vuzp=206) 2.4 mg/dL 1.6-2.6 COMPREHENSIVE METABOLIC [id number] 05:13:00 Test Item Value Reference Range Comments TOTAL PROTEIN (BEAKER) 6.2 gm/dL 6.0-8.3 (test hnxc=994) ALBUMIN (BEAKER) (test 2.8 g/dL 3.5-5.0 jbae=8298) ALKALINE PHOSPHATASE 113 U/L 40-150 (BEAKER) (test xjah=478) BILIRUBIN TOTAL (BEAKER) 11.5 mg/dL 0.2-1.2 (test brav=970) SODIUM (BEAKER) (test 132 meq/L 136-145 yair=908) POTASSIUM (BEAKER) (test 4.3 meq/L 3.5-5.1 vytz=191) CHLORIDE (BEAKER) (test 103 meq/L 98-107 gsfj=117) CO2 (BEAKER) (test 23 meq/L 22-29 akgj=667) BLOOD UREA NITROGEN 47 mg/dL 7-21 (BEAKER) (test nxlr=108) CREATININE (BEAKER) (test 1.83 mg/dL 0.57-1.25 uahf=386) GLUCOSE RANDOM (BEAKER) 131 mg/dL 70-105 (test kmgj=510) CALCIUM (BEAKER) (test 8.2 mg/dL 8.4-10.2 hpat=754) AST (SGOT) (BEAKER) (test 44 U/L 5-34 plra=365) ALT (SGPT) (BEAKER) (test 29 U/L 6-55 adtl=784) EGFR (BEAKER) (test 39 mL/min/1.73 sq m ESTIMATED GFR IS NOT beny=1333) ACCURATE CREATININE CLEARANCE IN PREDICTING GLOMERULAR FILTRATION RATE. ESTIMATED GFR IS NOT APPLICABLE FOR DIALYSIS PATIENTS. Specimen markedly ictericHEPATIC FUNCTION [id number] 05:13:00 Test Item Value Reference Range Comments TOTAL PROTEIN (BEAKER) (test vvsn=131) 6.2 gm/dL 6.0-8.3 ALBUMIN (BEAKER) (test fsjt=1461) 2.8 g/dL 3.5-5.0 BILIRUBIN TOTAL (BEAKER) (test ymqo=990) 11.5 mg/dL 0.2-1.2 BILIRUBIN DIRECT (BEAKER) (test mjck=207) 5.2 mg/dL 0.1-0.5 ALKALINE PHOSPHATASE (BEAKER) (test vxlr=565) 113 U/L 40-150 AST (SGOT) (BEAKER) (test btld=418) 44 U/L 5-34 ALT (SGPT) (BEAKER) (test pccu=465) 29 U/L 6-55 Specimen markedly ictericPT/[id number] 04:50:00 Test Item Value Reference Range Comments PROTIME (BEAKER) (test ytik=688) 27.2 seconds 11.9-14.2 INR (BEAKER) (test xxup=305) 2.7 <=5.9 PARTIAL THROMBOPLASTIN TIME (BEAKER) (test 50.3 seconds 22.5-36.0 ffel=815) Effective 09/16/2018: PT Reference Range ChangeNew: 11.9-14.2 Previous: 11.7- 14.7RECOMMENDED COUMADIN/WARFARIN INR THERAPY RANGESSTANDARD DOSE: 2.0-3.0 Includes: PROPHYLAXIS for venous thrombosis, systemic embolization; TREATMENT for venous thrombosis and/or pulmonary embolus.HIGH RISK: Target INR is2.5-3.5 for patients wiht mechanical heart valves.PROTHROMBIN TIME/[id number] 04:49: 00 Test Item Value Reference Range Comments PROTIME (BEAKER) (test brho=855) 27.2 seconds 11.9-14.2 INR (BEAKER) (test ukjq=242) 2.7 <=5.9 Effective 09/16/2018: PT Reference Range ChangeNew: 11.9-14.2 Previous: 11.7- 14.7RECOMMENDED COUMADIN/WARFARIN INR THERAPY RANGESSTANDARD DOSE: 2.0-3.0 Includes: PROPHYLAXIS for venous thrombosis, systemic embolization; TREATMENT for venous thrombosis and/or pulmonary embolus.HIGH RISK: Target INR is2.5-3.5 for patients wiht mechanical heart valves.[id number] 06:37:00 Test Item Value Reference Range Comments PHOSPHORUS (BEAKER) (test iurz=895) 4.2 mg/dL 2.3-4.7 [id number] 06:37:00 Test Item Value Reference Range Comments MAGNESIUM (BEAKER) (test nfam=289) 2.4 mg/dL 1.6-2.6 BASIC METABOLIC [id number] 06:37:00 Test Item Value Reference Range Comments SODIUM (BEAKER) (test 133 meq/L 136-145 zciz=863) POTASSIUM (BEAKER) (test 4.1 meq/L 3.5-5.1 bppj=843) CHLORIDE (BEAKER) (test 104 meq/L 98-107 vgob=813) CO2 (BEAKER) (test 23 meq/L 22-29 lnin=819) BLOOD UREA NITROGEN 45 mg/dL 7-21 (BEAKER) (test jvgm=789) CREATININE (BEAKER) (test 1.86 mg/dL 0.57-1.25 tdjp=938) GLUCOSE RANDOM (BEAKER) 122 mg/dL 70-105 (test ndsw=205) CALCIUM (BEAKER) (test 8.3 mg/dL 8.4-10.2 rwoc=981) EGFR (BEAKER) (test 38 mL/min/1.73 sq m ESTIMATED GFR IS NOT folo=0668) ACCURATE CREATININE CLEARANCE IN PREDICTING GLOMERULAR FILTRATION RATE. ESTIMATED GFR IS NOT APPLICABLE FOR DIALYSIS PATIENTS. Specimen markedly ictericHEPATIC FUNCTION [id number] 06:37:00 Test Item Value Reference Range Comments TOTAL PROTEIN (BEAKER) (test gnrf=466) 6.0 gm/dL 6.0-8.3 ALBUMIN (BEAKER) (test krlj=6941) 2.8 g/dL 3.5-5.0 BILIRUBIN TOTAL (BEAKER) (test ezpg=498) 12.3 mg/dL 0.2-1.2 BILIRUBIN DIRECT (BEAKER) (test faol=302) 5.5 mg/dL 0.1-0.5 ALKALINE PHOSPHATASE (BEAKER) (test redj=606) 106 U/L 40-150 AST (SGOT) (BEAKER) (test dnlh=599) 39 U/L 5-34 ALT (SGPT) (BEAKER) (test lgvi=942) 26 U/L 6-55 Specimen markedly ictericB-TYPE NATRIURETIC FACTOR (BNP)2019-04-08 06:14:00 Test Item Value Reference Range Comments B-TYPE NATRIURETIC PEPTIDE (BEAKER) (test 1129 pg/mL 0-100 ukil=842) CALCIUM, [id number] 06:09:00 Test Item Value Reference Range Comments CALCIUM IONIZED (BEAKER) (test ngez=380) 1.09 mmol/L 1.12-1.27 PH, BLOOD (BEAKER) (test wmfo=6898) 7.42 PT/[id number] 05:53:00 Test Item Value Reference Range Comments PROTIME (BEAKER) (test ciur=064) 28.0 seconds 11.9-14.2 INR (BEAKER) (test sqom=698) 2.8 <=5.9 PARTIAL THROMBOPLASTIN TIME (BEAKER) (test 55.2 seconds 22.5-36.0 ddpa=699) Effective 09/16/2018: PT Reference Range ChangeNew: 11.9-14.2 Previous: 11.7- 14.7RECOMMENDED COUMADIN/WARFARIN INR THERAPY RANGESSTANDARD DOSE: 2.0-3.0 Includes: PROPHYLAXIS for venous thrombosis, systemic embolization; TREATMENT for venous thrombosis and/or pulmonary embolus.HIGH RISK: Target INR is2.5-3.5 for patients wiht mechanical heart valves.PROTHROMBIN TIME/[id number] 05:52: 00 Test Item Value Reference Range Comments PROTIME (BEAKER) (test fnvg=361) 28.0 seconds 11.9-14.2 INR (BEAKER) (test lgaa=925) 2.8 <=5.9 Effective 09/16/2018: PT Reference Range ChangeNew: 11.9-14.2 Previous: 11.7- 14.7RECOMMENDED COUMADIN/WARFARIN INR THERAPY RANGESSTANDARD DOSE: 2.0-3.0 Includes: PROPHYLAXIS for venous thrombosis, systemic embolization; TREATMENT for venous thrombosis and/or pulmonary embolus.HIGH RISK: Target INR is2.5-3.5 for patients wiht mechanical heart valves.CBC (HEMOGRAM ONLY)2019-04-08 05:47:00 Test Item Value Reference Range Comments WHITE BLOOD CELL COUNT (BEAKER) (test evfu=448) 5.3 K/ L 3.5-10.5 RED BLOOD CELL COUNT (BEAKER) (test gsep=293) 2.13 M/ L 4.63-6.08 HEMOGLOBIN (BEAKER) (test auma=087) 7.4 GM/DL 13.7-17.5 HEMATOCRIT (BEAKER) (test enhl=359) 22.5 % 40.1-51.0 MEAN CORPUSCULAR VOLUME (BEAKER) (test fftb=309) 105.6 fL 79.0-92.2 MEAN CORPUSCULAR HEMOGLOBIN (BEAKER) (test 34.7 pg 25.7-32.2 noan=066) MEAN CORPUSCULAR HEMOGLOBIN CONC (BEAKER) (test 32.9 GM/DL 32.3-36.5 bcey=251) RED CELL DISTRIBUTION WIDTH (BEAKER) (test 21.8 % 11.6-14.4 wlii=427) PLATELET COUNT (BEAKER) (test erfv=330) 31 K/CU MM 150-450 MEAN PLATELET VOLUME (BEAKER) (test ogpt=045) 12.1 fL 9.4-12.4 NUCLEATED RED BLOOD CELLS (BEAKER) (test 0 /100 WBC 0-0 omew=058) U/S, ABDOMINAL, [id number] 17:05:00Labs to be ordered:->Body Fluid Culture (w/Gram Stain, C\T\S)Reason for exam:->ascitesFINAL REPORT Limited abdominal ultrasound CLINICAL HISTORY: Ascites FINDINGS: A limited abdominal ultrasound was performed and only a trace amount of fluid was seen. Therefore aparacentesis was not performed. Signed: Fantasma King Verified Date/Time: 04/07/2019 17:05:11 Reading Location: [place] [id number] Ultrasound Reading Room PT/[id number] 06:41:00 Test Item Value Reference Range Comments PROTIME (BEAKER) (test xzzn=271) 30.5 seconds 11.9-14.2 INR (BEAKER) (test oddg=069) 3.1 <=5.9 PARTIAL THROMBOPLASTIN TIME (BEAKER) (test 52.7 seconds 22.5-36.0 teuq=463) Effective 09/16/2018: PT Reference Range ChangeNew: 11.9-14.2 Previous: 11.7- 14.7RECOMMENDED COUMADIN/WARFARIN INR THERAPY RANGESSTANDARD DOSE: 2.0-3.0 Includes: PROPHYLAXIS for venous thrombosis, systemic embolization; TREATMENT for venous thrombosis and/or pulmonary embolus.HIGH RISK: Target INR is2.5-3.5 for patients wiht mechanical heart valves.CBC W/PLT COUNT & AUTO [id number] 06:41:00 Test Item Value Reference Range Comments WHITE BLOOD CELL COUNT (BEAKER) (test vepo=138) 5.9 K/ L 3.5-10.5 RED BLOOD CELL COUNT (BEAKER) (test tolc=091) 2.04 M/ L 4.63-6.08 HEMOGLOBIN (BEAKER) (test guyy=146) 7.3 GM/DL 13.7-17.5 HEMATOCRIT (BEAKER) (test avyl=891) 21.8 % 40.1-51.0 MEAN CORPUSCULAR VOLUME (BEAKER) (test ckcb=973) 106.9 fL 79.0-92.2 MEAN CORPUSCULAR HEMOGLOBIN (BEAKER) (test 35.8 pg 25.7-32.2 uiwj=301) MEAN CORPUSCULAR HEMOGLOBIN CONC (BEAKER) (test 33.5 GM/DL 32.3-36.5 ywok=558) RED CELL DISTRIBUTION WIDTH (BEAKER) (test 22.5 % 11.6-14.4 ausm=944) PLATELET COUNT (BEAKER) (test rywj=022) 29 K/CU MM 150-450 MEAN PLATELET VOLUME (BEAKER) (test vtxf=809) 10.5 fL 9.4-12.4 NUCLEATED RED BLOOD CELLS (BEAKER) (test 0 /100 WBC 0-0 flur=941) NEUTROPHILS RELATIVE PERCENT (BEAKER) (test 79 % iaoo=953) LYMPHOCYTES RELATIVE PERCENT (BEAKER) (test 8 % gstv=626) MONOCYTES RELATIVE PERCENT (BEAKER) (test 10 % dytu=881) EOSINOPHILS RELATIVE PERCENT (BEAKER) (test 2 % trlh=867) BASOPHILS RELATIVE PERCENT (BEAKER) (test 0 % cknx=089) NEUTROPHILS ABSOLUTE COUNT (BEAKER) (test 4.69 K/ L 1.78-5.38 ptxs=388) LYMPHOCYTES ABSOLUTE COUNT (BEAKER) (test 0.47 K/ L 1.32-3.57 yruf=944) MONOCYTES ABSOLUTE COUNT (BEAKER) (test deeu=980) 0.61 K/ L 0.30-0.82 EOSINOPHILS ABSOLUTE COUNT (BEAKER) (test 0.09 K/ L 0.04-0.54 lhpf=583) BASOPHILS ABSOLUTE COUNT (BEAKER) (test uoau=347) 0.01 K/ L 0.01-0.08 IMMATURE GRANULOCYTES-RELATIVE PERCENT (BEAKER) 1 % 0-1 (test tmrs=6229) PROTHROMBIN TIME/[id number] 06:40:00 Test Item Value Reference Range Comments PROTIME (BEAKER) (test bshs=103) 30.5 seconds 11.9-14.2 INR (BEAKER) (test qbof=889) 3.1 <=5.9 Effective 09/16/2018: PT Reference Range ChangeNew: 11.9-14.2 Previous: 11.7- 14.7RECOMMENDED COUMADIN/WARFARIN INR THERAPY RANGESSTANDARD DOSE: 2.0-3.0 Includes: PROPHYLAXIS for venous thrombosis, systemic embolization; TREATMENT for venous thrombosis and/or pulmonary embolus.HIGH RISK: Target INR is2.5-3.5 for patients wiht mechanical heart valves.B-TYPE NATRIURETIC FACTOR (BNP)2019-03 06:36:00 Test Item Value Reference Range Comments B-TYPE NATRIURETIC PEPTIDE (BEAKER) (test 1126 pg/mL 0-100 yjyr=405) [id number] 06:32:00 Test Item Value Reference Range Comments PHOSPHORUS (BEAKER) (test rsvo=134) 3.9 mg/dL 2.3-4.7 [id number] 06:32:00 Test Item Value Reference Range Comments MAGNESIUM (BEAKER) (test dkcw=693) 2.2 mg/dL 1.6-2.6 COMPREHENSIVE METABOLIC [id number] 06:32:00 Test Item Value Reference Range Comments TOTAL PROTEIN (BEAKER) 6.0 gm/dL 6.0-8.3 (test kmfx=043) ALBUMIN (BEAKER) (test 3.0 g/dL 3.5-5.0 wisv=9118) ALKALINE PHOSPHATASE 106 U/L 40-150 (BEAKER) (test wyxe=439) BILIRUBIN TOTAL (BEAKER) 13.5 mg/dL 0.2-1.2 (test eaju=209) SODIUM (BEAKER) (test 133 meq/L 136-145 jdvz=644) POTASSIUM (BEAKER) (test 3.9 meq/L 3.5-5.1 aanh=575) CHLORIDE (BEAKER) (test 103 meq/L 98-107 nzet=242) CO2 (BEAKER) (test 24 meq/L 22-29 qmng=537) BLOOD UREA NITROGEN 40 mg/dL 7-21 (BEAKER) (test mepe=444) CREATININE (BEAKER) (test 1.83 mg/dL 0.57-1.25 ufik=645) GLUCOSE RANDOM (BEAKER) 123 mg/dL 70-105 (test kilm=465) CALCIUM (BEAKER) (test 8.5 mg/dL 8.4-10.2 umyz=411) AST (SGOT) (BEAKER) (test 37 U/L 5-34 xxki=377) ALT (SGPT) (BEAKER) (test 27 U/L 6-55 cyzh=575) EGFR (BEAKER) (test 39 mL/min/1.73 sq m ESTIMATED GFR IS NOT nact=1004) ACCURATE CREATININE CLEARANCE IN PREDICTING GLOMERULAR FILTRATION RATE. ESTIMATED GFR IS NOT APPLICABLE FOR DIALYSIS PATIENTS. Specimen markedly ictericHEPATIC FUNCTION [id number] 06:32:00 Test Item Value Reference Range Comments TOTAL PROTEIN (BEAKER) (test dysf=910) 6.0 gm/dL 6.0-8.3 ALBUMIN (BEAKER) (test vazk=5502) 3.0 g/dL 3.5-5.0 BILIRUBIN TOTAL (BEAKER) (test evfn=409) 13.5 mg/dL 0.2-1.2 BILIRUBIN DIRECT (BEAKER) (test ruha=403) 6.1 mg/dL 0.1-0.5 ALKALINE PHOSPHATASE (BEAKER) (test tbpm=438) 106 U/L 40-150 AST (SGOT) (BEAKER) (test zybt=979) 37 U/L 5-34 ALT (SGPT) (BEAKER) (test itof=534) 27 U/L 6-55 Specimen markedly ictericCBC (HEMOGRAM ONLY)2019-04-07 06:30:00 Test Item Value Reference Range Comments WHITE BLOOD CELL COUNT (BEAKER) (test wrbp=712) 5.9 K/ L 3.5-10.5 RED BLOOD CELL COUNT (BEAKER) (test sxwd=356) 2.04 M/ L 4.63-6.08 HEMOGLOBIN (BEAKER) (test pkbm=639) 7.3 GM/DL 13.7-17.5 HEMATOCRIT (BEAKER) (test mego=115) 21.8 % 40.1-51.0 MEAN CORPUSCULAR VOLUME (BEAKER) (test cmfq=148) 106.9 fL 79.0-92.2 MEAN CORPUSCULAR HEMOGLOBIN (BEAKER) (test 35.8 pg 25.7-32.2 bchv=035) MEAN CORPUSCULAR HEMOGLOBIN CONC (BEAKER) (test 33.5 GM/DL 32.3-36.5 eqcr=199) RED CELL DISTRIBUTION WIDTH (BEAKER) (test 22.5 % 11.6-14.4 oeir=883) PLATELET COUNT (BEAKER) (test cysb=938) 29 K/CU MM 150-450 MEAN PLATELET VOLUME (BEAKER) (test dotg=434) 10.5 fL 9.4-12.4 NUCLEATED RED BLOOD CELLS (BEAKER) (test 0 /100 WBC 0-0 qiki=143) CALCIUM, [id number] 06:23:00 Test Item Value Reference Range Comments CALCIUM IONIZED (BEAKER) (test ogjb=936) 1.15 mmol/L 1.12-1.27 PH, BLOOD (BEAKER) (test gzvr=3774) 7.40 CBC (HEMOGRAM ONLY)2019-04-06 17:38:00 Test Item Value Reference Range Comments WHITE BLOOD CELL COUNT 7.3 K/ L 3.5-10.5 (BEAKER) (test qfhm=415) RED BLOOD CELL COUNT (BEAKER) 2.08 M/ L 4.63-6.08 (test gfdi=779) HEMOGLOBIN (BEAKER) (test 7.4 GM/DL 13.7-17.5 oazs=818) HEMATOCRIT (BEAKER) (test 22.2 % 40.1-51.0 okzn=980) MEAN CORPUSCULAR VOLUME 106.7 fL 79.0-92.2 (BEAKER) (test hzxd=509) MEAN CORPUSCULAR HEMOGLOBIN 35.6 pg 25.7-32.2 (BEAKER) (test bdtw=502) MEAN CORPUSCULAR HEMOGLOBIN 33.3 GM/DL 32.3-36.5 CONC (BEAKER) (test qomd=117) RED CELL DISTRIBUTION WIDTH Unable to report due to (BEAKER) (test iqmp=751) abnormal RBC population distribution. PLATELET COUNT (BEAKER) (test 37 K/CU MM 150-450 vnlh=228) MEAN PLATELET VOLUME (BEAKER) 11.8 fL 9.4-12.4 (test coeo=660) NUCLEATED RED BLOOD CELLS 0 /100 WBC 0-0 (BEAKER) (test dpyp=749) CBC W/PLT COUNT & AUTO [id number] 07:32:00 Test Item Value Reference Range Comments WHITE BLOOD CELL COUNT (BEAKER) (test vjre=046) 7.2 K/ L 3.5-10.5 RED BLOOD CELL COUNT (BEAKER) (test aebs=292) 1.91 M/ L 4.63-6.08 HEMOGLOBIN (BEAKER) (test tadf=269) 6.8 GM/DL 13.7-17.5 HEMATOCRIT (BEAKER) (test jrii=617) 21.2 % 40.1-51.0 MEAN CORPUSCULAR VOLUME (BEAKER) (test htps=468) 111.0 fL 79.0-92.2 MEAN CORPUSCULAR HEMOGLOBIN (BEAKER) (test 35.6 pg 25.7-32.2 dbjv=476) MEAN CORPUSCULAR HEMOGLOBIN CONC (BEAKER) (test 32.1 GM/DL 32.3-36.5 uyts=529) RED CELL DISTRIBUTION WIDTH (BEAKER) (test 21.6 % 11.6-14.4 ljqe=697) PLATELET COUNT (BEAKER) (test bnes=724) 32 K/CU MM 150-450 MEAN PLATELET VOLUME (BEAKER) (test ggtp=661) 11.9 fL 9.4-12.4 NUCLEATED RED BLOOD CELLS (BEAKER) (test 0 /100 WBC 0-0 kzxt=017) (CELLAVISION MANUAL DIFF)2019-04-06 07:32:00 Test Item Value Reference Range Comments NEUTROPHILS - REL (CELLAVISION)(BEAKER) (test 77 % oiad=6024) LYMPHOCYTES - REL (CELLAVISION)(BEAKER) (test 6 % hofa=3701) MONOCYTES - REL (CELLAVISION)(BEAKER) (test 6 % rclu=3605) EOSINOPHILS - REL (CELLAVISION)(BEAKER) (test 5 % xmtu=5466) MYELOCYTES - REL (CELLAVISION)(BEAKER) (test 2 % 0-0 odsm=9648) BANDS - REL (CELLAVISION)(BEAKER) (test 4 % 0-10 rjfd=2619) NEUTROPHILS - ABS (CELLAVISION)(BEAKER) (test 5.54 K/ul 1.78-5.38 lhry=5115) LYMPHOCYTES - ABS (CELLAVISION)(BEAKER) (test 0.43 K/ul 1.32-3.57 ongu=6559) MONOCYTES - ABS (CELLAVISION)(BEAKER) (test 0.43 K/uL 0.30-0.82 lkwm=4596) EOSINOPHILS - ABS (CELLAVISION)(BEAKER) (test 0.36 K/uL 0.04-0.54 xvaq=0537) MYELOCYTES-ABS (CELLAVISION)(BEAKER) (test 0.14 K/uL 0.00-0.00 evsa=5627) BANDS - ABS (CELLAVISION)(BEAKER) (test 0.29 K/uL 0.00-0.80 eqwn=3873) TOTAL COUNTED (BEAKER) (test uarh=0852) 100 WBC MORPHOLOGY (BEAKER) (test inmb=327) Normal PLT MORPHOLOGY (BEAKER) (test rshv=791) Normal POLYCHROMATOPHILLIC RBCS(BEAKER) (test xooo=133) 3+ many ANISOCYTOSIS (BEAKER) (test vrrd=145) 2+ moderate MACROCYTES (BEAKER) (test mhvu=797) 2+ moderate POIKILOCYTES (BEAKER) (test kpuy=847) 3+ many ASHLEY CELLS (BEAKER) (test wcja=758) 1+ few BASOPHILIC STIPPLING (BEAKER) (test xxdu=437) Present ARTIFACT (CELLAVISION)(BEAKER) (test jusa=2447) Present PLATELET CONCENTRATION (CELLAVISION)(BEAKER) Decreased (test vnkm=3648) Received comment: User comments: Slide comments:CALCIUM, [id number] 05:40 :00 Test Item Value Reference Range Comments CALCIUM IONIZED (BEAKER) (test dtoq=901) 1.06 mmol/L 1.12-1.27 PH, BLOOD (BEAKER) (test bpqn=3943) 7.48 PROTHROMBIN TIME/[id number] 05:09:00 Test Item Value Reference Range Comments PROTIME (BEAKER) (test ewfb=897) 35.0 seconds 11.9-14.2 INR (BEAKER) (test cxlp=634) 3.7 <=5.9 Effective 09/16/2018: PT Reference Range ChangeNew: 11.9-14.2 Previous: 11.7- 14.7RECOMMENDED COUMADIN/WARFARIN INR THERAPY RANGESSTANDARD DOSE: 2.0-3.0 Includes: PROPHYLAXIS for venous thrombosis, systemic embolization; TREATMENT for venous thrombosis and/or pulmonary embolus.HIGH RISK: Target INR is2.5-3.5 for patients wiht mechanical heart valves.PT/[id number] 05:09:00 Test Item Value Reference Range Comments PROTIME (BEAKER) (test nyak=690) 35.0 seconds 11.9-14.2 INR (BEAKER) (test phph=991) 3.7 <=5.9 PARTIAL THROMBOPLASTIN TIME (BEAKER) (test 56.9 seconds 22.5-36.0 awcd=275) Effective 09/16/2018: PT Reference Range ChangeNew: 11.9-14.2 Previous: 11.7- 14.7RECOMMENDED COUMADIN/WARFARIN INR THERAPY RANGESSTANDARD DOSE: 2.0-3.0 Includes: PROPHYLAXIS for venous thrombosis, systemic embolization; TREATMENT for venous thrombosis and/or pulmonary embolus.HIGH RISK: Target INR is2.5-3.5 for patients wiht mechanical heart valves.[id number] 05:07:00 Test Item Value Reference Range Comments PHOSPHORUS (BEAKER) (test zbas=799) 3.4 mg/dL 2.3-4.7 [id number] 05:07:00 Test Item Value Reference Range Comments MAGNESIUM (BEAKER) (test itde=387) 2.1 mg/dL 1.6-2.6 COMPREHENSIVE METABOLIC [id number] 05:07:00 Test Item Value Reference Range Comments TOTAL PROTEIN (BEAKER) 6.0 gm/dL 6.0-8.3 (test izoj=163) ALBUMIN (BEAKER) (test 3.0 g/dL 3.5-5.0 lmco=8354) ALKALINE PHOSPHATASE 110 U/L 40-150 (BEAKER) (test gsum=109) BILIRUBIN TOTAL (BEAKER) 13.7 mg/dL 0.2-1.2 (test fbhv=164) SODIUM (BEAKER) (test 133 meq/L 136-145 cfta=220) POTASSIUM (BEAKER) (test 3.8 meq/L 3.5-5.1 ynui=138) CHLORIDE (BEAKER) (test 104 meq/L 98-107 xsdo=276) CO2 (BEAKER) (test 23 meq/L 22-29 nvzd=897) BLOOD UREA NITROGEN 36 mg/dL 7-21 (BEAKER) (test vmnc=531) CREATININE (BEAKER) (test 1.72 mg/dL 0.57-1.25 lxnu=076) GLUCOSE RANDOM (BEAKER) 125 mg/dL 70-105 (test bsaz=958) CALCIUM (BEAKER) (test 8.5 mg/dL 8.4-10.2 hqik=169) AST (SGOT) (BEAKER) (test 46 U/L 5-34 ldgd=497) ALT (SGPT) (BEAKER) (test 30 U/L 6-55 uxim=390) EGFR (BEAKER) (test 42 mL/min/1.73 sq m ESTIMATED GFR IS NOT bgsv=7947) ACCURATE CREATININE CLEARANCE IN PREDICTING GLOMERULAR FILTRATION RATE. ESTIMATED GFR IS NOT APPLICABLE FOR DIALYSIS PATIENTS. Specimen markedly ictericHEPATIC FUNCTION [id number] 05:07:00 Test Item Value Reference Range Comments TOTAL PROTEIN (BEAKER) (test lepz=551) 6.0 gm/dL 6.0-8.3 ALBUMIN (BEAKER) (test sfzj=3726) 3.0 g/dL 3.5-5.0 BILIRUBIN TOTAL (BEAKER) (test rowi=927) 13.7 mg/dL 0.2-1.2 BILIRUBIN DIRECT (BEAKER) (test wipr=027) 5.8 mg/dL 0.1-0.5 ALKALINE PHOSPHATASE (BEAKER) (test hosm=350) 110 U/L 40-150 AST (SGOT) (BEAKER) (test wqrq=099) 46 U/L 5-34 ALT (SGPT) (BEAKER) (test rdvj=578) 30 U/L 6-55 Specimen markedly ictericCBC (HEMOGRAM ONLY)2019-04-06 04:54:00 Test Item Value Reference Range Comments WHITE BLOOD CELL COUNT (BEAKER) (test fvfe=442) 7.2 K/ L 3.5-10.5 RED BLOOD CELL COUNT (BEAKER) (test rjtu=208) 1.91 M/ L 4.63-6.08 HEMOGLOBIN (BEAKER) (test ciiv=948) 6.8 GM/DL 13.7-17.5 HEMATOCRIT (BEAKER) (test omnv=015) 21.2 % 40.1-51.0 MEAN CORPUSCULAR VOLUME (BEAKER) (test daig=523) 111.0 fL 79.0-92.2 MEAN CORPUSCULAR HEMOGLOBIN (BEAKER) (test 35.6 pg 25.7-32.2 msam=951) MEAN CORPUSCULAR HEMOGLOBIN CONC (BEAKER) (test 32.1 GM/DL 32.3-36.5 ynqw=591) RED CELL DISTRIBUTION WIDTH (BEAKER) (test 21.6 % 11.6-14.4 uwpi=858) PLATELET COUNT (BEAKER) (test kdnr=058) 32 K/CU MM 150-450 MEAN PLATELET VOLUME (BEAKER) (test wmmj=829) 11.9 fL 9.4-12.4 NUCLEATED RED BLOOD CELLS (BEAKER) (test 0 /100 WBC 0-0 rdqc=851) VANCOMYCIN LEVEL, [id number] 23:18:00 Test Item Value Reference Range Comments VANCOMYCIN TROUGH (BEAKER) (test auut=595) 27.4 ug/mL 10.0-20.0 Wait for result before giving dose. HOLD vancomycin if trough >20CBC ( HEMOGRAM ONLY)2019-04-05 17:03:00 Test Item Value Reference Range Comments WHITE BLOOD CELL COUNT (BEAKER) (test eclr=093) 5.8 K/ L 3.5-10.5 RED BLOOD CELL COUNT (BEAKER) (test yqxm=479) 1.88 M/ L 4.63-6.08 HEMOGLOBIN (BEAKER) (test kgtf=504) 6.8 GM/DL 13.7-17.5 HEMATOCRIT (BEAKER) (test nqlk=571) 20.8 % 40.1-51.0 MEAN CORPUSCULAR VOLUME (BEAKER) (test bshm=721) 110.6 fL 79.0-92.2 MEAN CORPUSCULAR HEMOGLOBIN (BEAKER) (test 36.2 pg 25.7-32.2 ahry=545) MEAN CORPUSCULAR HEMOGLOBIN CONC (BEAKER) (test 32.7 GM/DL 32.3-36.5 gwzp=034) RED CELL DISTRIBUTION WIDTH (BEAKER) (test 21.3 % 11.6-14.4 pcvj=055) PLATELET COUNT (BEAKER) (test acgu=691) 29 K/CU MM 150-450 MEAN PLATELET VOLUME (BEAKER) (test stpd=773) 11.4 fL 9.4-12.4 NUCLEATED RED BLOOD CELLS (BEAKER) (test 0 /100 WBC 0-0 ecpx=942) RAD, CHEST, 2 [id number] 14:45:00Reason for exam:->chest pain, new feverFINAL REPORT INDICATION: chest pain, new fever COMPARISON: March 31, 2019 TECHNIQUE: Frontal and lateral views of the chest. FINDINGS: Lungs and pleura: Clear lungs. No effusion.Heart and mediastinum: Normal heart size. Unremarkable mediastinal contours.Osseous structures: Noacute abnormality.Additional findings: None. IMPRESSION: No acute intrathoracic abnormality. Signed: Lucrecia Michele Verified Date/ Time: 04/05/2019 14:45:36 Reading Location: [facility] Radiology Reading Room 02: 45 [id number] 09:07:00 Test Item Value Reference Range Comments MAGNESIUM (BEAKER) (test iubx=214) 2.1 mg/dL 1.6-2.6 COMPREHENSIVE METABOLIC [id number] 09:07:00 Test Item Value Reference Range Comments TOTAL PROTEIN (BEAKER) 6.3 gm/dL 6.0-8.3 (test rslg=226) ALBUMIN (BEAKER) (test 3.1 g/dL 3.5-5.0 jhzg=4769) ALKALINE PHOSPHATASE 115 U/L 40-150 (BEAKER) (test mvyq=207) BILIRUBIN TOTAL (BEAKER) 14.2 mg/dL 0.2-1.2 (test ncyp=004) SODIUM (BEAKER) (test 134 meq/L 136-145 zuqy=741) POTASSIUM (BEAKER) (test 4.1 meq/L 3.5-5.1 xtrh=788) CHLORIDE (BEAKER) (test 102 meq/L 98-107 jxce=758) CO2 (BEAKER) (test 25 meq/L 22-29 dybf=399) BLOOD UREA NITROGEN 29 mg/dL 7-21 (BEAKER) (test wimf=258) CREATININE (BEAKER) (test 1.51 mg/dL 0.57-1.25 lcgk=755) GLUCOSE RANDOM (BEAKER) 79 mg/dL 70-105 (test pxyy=410) CALCIUM (BEAKER) (test 8.6 mg/dL 8.4-10.2 ulwo=906) AST (SGOT) (BEAKER) (test 57 U/L 5-34 onvo=362) ALT (SGPT) (BEAKER) (test 34 U/L 6-55 ujvw=464) EGFR (BEAKER) (test 49 mL/min/1.73 sq m ESTIMATED GFR IS NOT kcmo=2407) ACCURATE CREATININE CLEARANCE IN PREDICTING GLOMERULAR FILTRATION RATE. ESTIMATED GFR IS NOT APPLICABLE FOR DIALYSIS PATIENTS. Specimen markedly ictericHEPATIC FUNCTION [id number] 09:07:00 Test Item Value Reference Range Comments TOTAL PROTEIN (BEAKER) (test eadt=170) 6.3 gm/dL 6.0-8.3 ALBUMIN (BEAKER) (test aafh=0558) 3.1 g/dL 3.5-5.0 BILIRUBIN TOTAL (BEAKER) (test npfi=893) 14.2 mg/dL 0.2-1.2 BILIRUBIN DIRECT (BEAKER) (test uaqs=657) 5.2 mg/dL 0.1-0.5 ALKALINE PHOSPHATASE (BEAKER) (test rmyy=971) 115 U/L 40-150 AST (SGOT) (BEAKER) (test mwkh=101) 57 U/L 5-34 ALT (SGPT) (BEAKER) (test jdit=984) 34 U/L 6-55 Specimen markedly ictericCBC (HEMOGRAM ONLY)2019-04-05 08:49:00 Test Item Value Reference Range Comments WHITE BLOOD CELL COUNT (BEAKER) (test ebrf=432) 6.2 K/ L 3.5-10.5 RED BLOOD CELL COUNT (BEAKER) (test hrtg=490) 2.00 M/ L 4.63-6.08 HEMOGLOBIN (BEAKER) (test azzl=124) 7.1 GM/DL 13.7-17.5 HEMATOCRIT (BEAKER) (test tgzo=967) 22.1 % 40.1-51.0 MEAN CORPUSCULAR VOLUME (BEAKER) (test esck=388) 110.5 fL 79.0-92.2 MEAN CORPUSCULAR HEMOGLOBIN (BEAKER) (test 35.5 pg 25.7-32.2 xzto=746) MEAN CORPUSCULAR HEMOGLOBIN CONC (BEAKER) (test 32.1 GM/DL 32.3-36.5 hdtz=396) RED CELL DISTRIBUTION WIDTH (BEAKER) (test 21.2 % 11.6-14.4 roqz=972) PLATELET COUNT (BEAKER) (test iydx=150) 32 K/CU MM 150-450 MEAN PLATELET VOLUME (BEAKER) (test ntkm=531) 10.4 fL 9.4-12.4 NUCLEATED RED BLOOD CELLS (BEAKER) (test 0 /100 WBC 0-0 envh=789) PROTHROMBIN [id number] 08:34:00 Test Item Value Reference Range Comments PROTIME (BEAKER) (test czhn=316) 31.8 seconds 11.9-14.2 INR (BEAKER) (test myzs=400) 3.3 <=5.9 Effective 09/16/2018: PT Reference Range ChangeNew: 11.9-14.2 Previous: 11.7- 14.7RECOMMENDED COUMADIN/WARFARIN INR THERAPY RANGESSTANDARD DOSE: 2.0-3.0 Includes: PROPHYLAXIS for venous thrombosis, systemic embolization; TREATMENT for venous thrombosis and/or pulmonary embolus.HIGH RISK: Target INR is2.5-3.5 for patients wiht mechanical heart valves.URINALYSIS W/ REFLEX URINE [id number] 03:24:00 Test Item Value Reference Range Comments COLOR (BEAKER) (test rlel=478) Dark Yellow CLARITY (BEAKER) (test wobx=478) Clear SPECIFIC GRAVITY UA (BEAKER) (test qpmh=820) 1.016 1.001-1.035 PH UA (BEAKER) (test swve=669) 5.5 5.0-8.0 PROTEIN UA (BEAKER) (test vihz=799) 70 mg/dL Negative GLUCOSE UA (BEAKER) (test hvjp=797) Negative Negative KETONES UA (BEAKER) (test omrp=073) Trace Negative BILIRUBIN UA (BEAKER) (test aevb=444) Positive Negative BLOOD UA (BEAKER) (test nfjo=969) Small Negative NITRITE UA (BEAKER) (test xihr=125) Negative Negative LEUKOCYTE ESTERASE UA (BEAKER) (test xpor=855) Negative Negative UROBILINOGEN UA (BEAKER) (test nwwf=370) 0.2 mg/dL 0.2-1.0 RBC UA (BEAKER) (test wmhb=097) 1 /HPF WBC UA (BEAKER) (test ltwd=152) 2 /HPF BACTERIA (BEAKER) (test ahuo=248) Few SQUAMOUS EPITHELIAL (BEAKER) (test voen=312) 1 /HPF SOURCE(BEAKER) (test bebc=7647) [id number] 01:23:00 Test Item Value Reference Range Comments PROTIME (BEAKER) (test sgeb=826) 30.1 seconds 11.9-14.2 INR (BEAKER) (test jopv=378) 3.0 <=5.9 PARTIAL THROMBOPLASTIN TIME (BEAKER) (test 49.8 seconds 22.5-36.0 egwr=405) Effective 09/16/2018: PT Reference Range ChangeNew: 11.9-14.2 Previous: 11.7- 14.7RECOMMENDED COUMADIN/WARFARIN INR THERAPY RANGESSTANDARD DOSE: 2.0-3.0 Includes: PROPHYLAXIS for venous thrombosis, systemic embolization; TREATMENT for venous thrombosis and/or pulmonary embolus.HIGH RISK: Target INR is2.5-3.5 for patients wiht mechanical heart valves.PROTHROMBIN [id number] 01:22: 00 Test Item Value Reference Range Comments PROTIME (BEAKER) (test ueim=874) 30.1 seconds 11.9-14.2 INR (BEAKER) (test howe=168) 3.0 <=5.9 Effective 09/16/2018: PT Reference Range ChangeNew: 11.9-14.2 Previous: 11.7- 14.7RECOMMENDED COUMADIN/WARFARIN INR THERAPY RANGESSTANDARD DOSE: 2.0-3.0 Includes: PROPHYLAXIS for venous thrombosis, systemic embolization; TREATMENT for venous thrombosis and/or pulmonary embolus.HIGH RISK: Target INR is2.5-3.5 for patients wiht mechanical heart valves.TROPONIN [id number] 00:00:00 Test Item Value Reference Range Comments TROPONIN I (BEAKER) (test uzig=741) 0.05 ng/mL 0.00-0.03 Troponin I (TnI) levels must be interpreted in the context of the presenting symptoms and the clinical findings. Elevated TnI levels indicate myocardial damage, but are not specific for ischemic heart disease. Elevated TnI levels are seen in patients with other cardiac conditions (including myocarditis and congestive heart failure), and slight TnI elevations occur in patients with other conditions, including sepsis, renal failure, acidosis, acute neurological disease, and persistent tachyarrhythmia.COMPREHENSIVE METABOLIC [id number] 23:54:00 Test Item Value Reference Range Comments TOTAL PROTEIN (BEAKER) 6.2 gm/dL 6.0-8.3 (test btnu=174) ALBUMIN (BEAKER) (test 2.8 g/dL 3.5-5.0 nduo=4609) ALKALINE PHOSPHATASE 125 U/L 40-150 (BEAKER) (test xlkj=565) BILIRUBIN TOTAL (BEAKER) 11.7 mg/dL 0.2-1.2 (test dltw=045) SODIUM (BEAKER) (test 132 meq/L 136-145 cins=211) POTASSIUM (BEAKER) (test 3.9 meq/L 3.5-5.1 jpiq=041) CHLORIDE (BEAKER) (test 102 meq/L 98-107 uhuh=422) CO2 (BEAKER) (test 23 meq/L 22-29 kieo=140) BLOOD UREA NITROGEN 22 mg/dL 7-21 (BEAKER) (test rdzm=797) CREATININE (BEAKER) (test 1.16 mg/dL 0.57-1.25 btop=236) GLUCOSE RANDOM (BEAKER) 130 mg/dL 70-105 (test uomz=301) CALCIUM (BEAKER) (test 8.2 mg/dL 8.4-10.2 qdlm=109) AST (SGOT) (BEAKER) (test 58 U/L 5-34 tdgy=841) ALT (SGPT) (BEAKER) (test 35 U/L 6-55 ejfb=622) EGFR (BEAKER) (test 66 mL/min/1.73 sq m ESTIMATED GFR IS NOT nand=5884) ACCURATE CREATININE CLEARANCE IN PREDICTING GLOMERULAR FILTRATION RATE. ESTIMATED GFR IS NOT APPLICABLE FOR DIALYSIS PATIENTS. Specimen markedly ictericLACTIC ACID, [id number] 23:48:00 Test Item Value Reference Range Comments LACTATE BLOOD VENOUS (2) 1.3 mmol/L 0.5-2.2 Specimen slightly hemolyzed (BEAKER) (test qmja=3288) Specimen markedly ictericCBC W/PLT COUNT & AUTO [id number] 23:03 :00 Test Item Value Reference Range Comments WHITE BLOOD CELL COUNT (BEAKER) (test okpt=163) 12.3 K/ L 3.5-10.5 RED BLOOD CELL COUNT (BEAKER) (test rybe=875) 1.83 M/ L 4.63-6.08 HEMOGLOBIN (BEAKER) (test nxrv=112) 6.6 GM/DL 13.7-17.5 HEMATOCRIT (BEAKER) (test rsen=399) 20.3 % 40.1-51.0 MEAN CORPUSCULAR VOLUME (BEAKER) (test bhbx=779) 110.9 fL 79.0-92.2 MEAN CORPUSCULAR HEMOGLOBIN (BEAKER) (test 36.1 pg 25.7-32.2 gvrx=808) MEAN CORPUSCULAR HEMOGLOBIN CONC (BEAKER) (test 32.5 GM/DL 32.3-36.5 jmby=889) RED CELL DISTRIBUTION WIDTH (BEAKER) (test 20.8 % 11.6-14.4 lcwt=806) PLATELET COUNT (BEAKER) (test gpht=591) 40 K/CU MM 150-450 MEAN PLATELET VOLUME (BEAKER) (test hpbr=916) 11.4 fL 9.4-12.4 NUCLEATED RED BLOOD CELLS (BEAKER) (test 0 /100 WBC 0-0 bwru=340) NEUTROPHILS RELATIVE PERCENT (BEAKER) (test 88 % injd=384) LYMPHOCYTES RELATIVE PERCENT (BEAKER) (test 4 % hpxp=154) MONOCYTES RELATIVE PERCENT (BEAKER) (test 6 % dflh=943) EOSINOPHILS RELATIVE PERCENT (BEAKER) (test 1 % vpwf=954) BASOPHILS RELATIVE PERCENT (BEAKER) (test 0 % zdxd=636) NEUTROPHILS ABSOLUTE COUNT (BEAKER) (test 10.85 K/ L 1.78-5.38 wssg=945) LYMPHOCYTES ABSOLUTE COUNT (BEAKER) (test 0.50 K/ L 1.32-3.57 vpgw=671) MONOCYTES ABSOLUTE COUNT (BEAKER) (test epoj=896) 0.71 K/ L 0.30-0.82 EOSINOPHILS ABSOLUTE COUNT (BEAKER) (test 0.09 K/ L 0.04-0.54 aeln=285) BASOPHILS ABSOLUTE COUNT (BEAKER) (test gkoj=716) 0.02 K/ L 0.01-0.08 IMMATURE GRANULOCYTES-RELATIVE PERCENT (BEAKER) 1 % 0-1 (test uazy=5181) BLOOD [id number] 18:00:00 Test Item Value Reference Range Comments CULTURE (BEAKER) (test fohm=2543) No growth in 5 days BLOOD [id number] 18:00:00 Test Item Value Reference Range Comments CULTURE (BEAKER) (test nazs=8271) No growth in 5 days [id number] 17:37:00 Test Item Value Reference Range Comments PROTIME (BEAKER) (test pfvc=997) 28.4 seconds 11.9-14.2 INR (BEAKER) (test dren=026) 2.9 <=5.9 PARTIAL THROMBOPLASTIN TIME (BEAKER) (test 47.5 seconds 22.5-36.0 rypk=458) Effective 09/16/2018: PT Reference Range ChangeNew: 11.9-14.2 Previous: 11.7- 14.7RECOMMENDED COUMADIN/WARFARIN INR THERAPY RANGESSTANDARD DOSE: 2.0-3.0 Includes: PROPHYLAXIS for venous thrombosis, systemic embolization; TREATMENT for venous thrombosis and/or pulmonary embolus.HIGH RISK: Target INR is2.5-3.5 for patients wiht mechanical heart valves.CBC (HEMOGRAM ONLY)2019-04-04 17:35:00 Test Item Value Reference Range Comments WHITE BLOOD CELL COUNT (BEAKER) (test ftnj=479) 9.7 K/ L 3.5-10.5 RED BLOOD CELL COUNT (BEAKER) (test qasz=992) 1.90 M/ L 4.63-6.08 HEMOGLOBIN (BEAKER) (test kerq=745) 6.9 GM/DL 13.7-17.5 HEMATOCRIT (BEAKER) (test bdcm=933) 20.7 % 40.1-51.0 MEAN CORPUSCULAR VOLUME (BEAKER) (test ghgx=814) 108.9 fL 79.0-92.2 MEAN CORPUSCULAR HEMOGLOBIN (BEAKER) (test 36.3 pg 25.7-32.2 yiba=417) MEAN CORPUSCULAR HEMOGLOBIN CONC (BEAKER) (test 33.3 GM/DL 32.3-36.5 legr=995) RED CELL DISTRIBUTION WIDTH (BEAKER) (test 20.6 % 11.6-14.4 vpvi=457) PLATELET COUNT (BEAKER) (test gmfr=714) 46 K/CU MM 150-450 MEAN PLATELET VOLUME (BEAKER) (test mulq=083) 11.1 fL 9.4-12.4 NUCLEATED RED BLOOD CELLS (BEAKER) (test 0 /100 WBC 0-0 rzfx=458) [id number] 07:14:00 Test Item Value Reference Range Comments MAGNESIUM (BEAKER) (test ykhh=733) 2.3 mg/dL 1.6-2.6 BASIC METABOLIC [id number] 07:14:00 Test Item Value Reference Range Comments SODIUM (BEAKER) (test 135 meq/L 136-145 kpgd=906) POTASSIUM (BEAKER) (test 3.9 meq/L 3.5-5.1 opqu=529) CHLORIDE (BEAKER) (test 105 meq/L 98-107 pxhx=174) CO2 (BEAKER) (test 24 meq/L 22-29 pbfg=252) BLOOD UREA NITROGEN 23 mg/dL 7-21 (BEAKER) (test ptmp=212) CREATININE (BEAKER) (test 0.85 mg/dL 0.57-1.25 mgja=371) GLUCOSE RANDOM (BEAKER) 121 mg/dL 70-105 (test hhiv=281) CALCIUM (BEAKER) (test 8.4 mg/dL 8.4-10.2 syrd=242) EGFR (BEAKER) (test 94 mL/min/1.73 sq m ESTIMATED GFR IS NOT nmag=6416) ACCURATE CREATININE CLEARANCE IN PREDICTING GLOMERULAR FILTRATION RATE. ESTIMATED GFR IS NOT APPLICABLE FOR DIALYSIS PATIENTS. Specimen markedly ictericHEPATIC FUNCTION [id number] 07:14:00 Test Item Value Reference Range Comments TOTAL PROTEIN (BEAKER) (test xvky=153) 6.5 gm/dL 6.0-8.3 ALBUMIN (BEAKER) (test apgs=4810) 3.0 g/dL 3.5-5.0 BILIRUBIN TOTAL (BEAKER) (test rkte=760) 11.0 mg/dL 0.2-1.2 BILIRUBIN DIRECT (BEAKER) (test jhxx=946) 4.5 mg/dL 0.1-0.5 ALKALINE PHOSPHATASE (BEAKER) (test gxcp=515) 156 U/L 40-150 AST (SGOT) (BEAKER) (test tlyp=048) 59 U/L 5-34 ALT (SGPT) (BEAKER) (test cpye=360) 39 U/L 6-55 Specimen markedly ictericCBC W/PLT COUNT & AUTO [id number] 06:57 :00 Test Item Value Reference Range Comments WHITE BLOOD CELL COUNT (BEAKER) (test youq=630) 6.4 K/ L 3.5-10.5 RED BLOOD CELL COUNT (BEAKER) (test ipsj=864) 1.95 M/ L 4.63-6.08 HEMOGLOBIN (BEAKER) (test zenn=599) 7.0 GM/DL 13.7-17.5 HEMATOCRIT (BEAKER) (test xtpy=660) 21.3 % 40.1-51.0 MEAN CORPUSCULAR VOLUME (BEAKER) (test alyp=872) 109.2 fL 79.0-92.2 MEAN CORPUSCULAR HEMOGLOBIN (BEAKER) (test 35.9 pg 25.7-32.2 yfhc=194) MEAN CORPUSCULAR HEMOGLOBIN CONC (BEAKER) (test 32.9 GM/DL 32.3-36.5 jpmi=757) RED CELL DISTRIBUTION WIDTH (BEAKER) (test 20.3 % 11.6-14.4 thxc=344) PLATELET COUNT (BEAKER) (test fvec=062) 48 K/CU MM 150-450 MEAN PLATELET VOLUME (BEAKER) (test dsef=790) 11.0 fL 9.4-12.4 NUCLEATED RED BLOOD CELLS (BEAKER) (test 0 /100 WBC 0-0 sjor=958) NEUTROPHILS RELATIVE PERCENT (BEAKER) (test 68 % neiw=866) LYMPHOCYTES RELATIVE PERCENT (BEAKER) (test 16 % pugb=569) MONOCYTES RELATIVE PERCENT (BEAKER) (test 11 % jbom=060) EOSINOPHILS RELATIVE PERCENT (BEAKER) (test 4 % qfxs=463) BASOPHILS RELATIVE PERCENT (BEAKER) (test 0 % xase=402) NEUTROPHILS ABSOLUTE COUNT (BEAKER) (test 4.34 K/ L 1.78-5.38 vszy=393) LYMPHOCYTES ABSOLUTE COUNT (BEAKER) (test 1.01 K/ L 1.32-3.57 mbbp=018) MONOCYTES ABSOLUTE COUNT (BEAKER) (test dpof=382) 0.67 K/ L 0.30-0.82 EOSINOPHILS ABSOLUTE COUNT (BEAKER) (test 0.23 K/ L 0.04-0.54 rban=959) BASOPHILS ABSOLUTE COUNT (BEAKER) (test ldcb=985) 0.01 K/ L 0.01-0.08 IMMATURE GRANULOCYTES-RELATIVE PERCENT (BEAKER) 2 % 0-1 (test vxfq=2992) CBC (HEMOGRAM ONLY)2019-04-04 06:50:00 Test Item Value Reference Range Comments WHITE BLOOD CELL COUNT (BEAKER) (test ylcp=677) 6.4 K/ L 3.5-10.5 RED BLOOD CELL COUNT (BEAKER) (test wakd=680) 1.95 M/ L 4.63-6.08 HEMOGLOBIN (BEAKER) (test zpjn=247) 7.0 GM/DL 13.7-17.5 HEMATOCRIT (BEAKER) (test ldut=832) 21.3 % 40.1-51.0 MEAN CORPUSCULAR VOLUME (BEAKER) (test ejxi=853) 109.2 fL 79.0-92.2 MEAN CORPUSCULAR HEMOGLOBIN (BEAKER) (test 35.9 pg 25.7-32.2 utlp=700) MEAN CORPUSCULAR HEMOGLOBIN CONC (BEAKER) (test 32.9 GM/DL 32.3-36.5 pida=695) RED CELL DISTRIBUTION WIDTH (BEAKER) (test 20.3 % 11.6-14.4 jwdu=023) PLATELET COUNT (BEAKER) (test hkrg=193) 48 K/CU MM 150-450 MEAN PLATELET VOLUME (BEAKER) (test ilhe=396) 11.0 fL 9.4-12.4 NUCLEATED RED BLOOD CELLS (BEAKER) (test 0 /100 WBC 0-0 jqbp=351) [id number] 06:44:00 Test Item Value Reference Range Comments PROTIME (BEAKER) (test veul=291) 28.0 seconds 11.9-14.2 INR (BEAKER) (test lfcb=837) 2.8 <=5.9 PARTIAL THROMBOPLASTIN TIME (BEAKER) (test 45.9 seconds 22.5-36.0 xuba=999) Effective 09/16/2018: PT Reference Range ChangeNew: 11.9-14.2 Previous: 11.7- 14.7RECOMMENDED COUMADIN/WARFARIN INR THERAPY RANGESSTANDARD DOSE: 2.0-3.0 Includes: PROPHYLAXIS for venous thrombosis, systemic embolization; TREATMENT for venous thrombosis and/or pulmonary embolus.HIGH RISK: Target INR is2.5-3.5 for patients wiht mechanical heart valves.PROTHROMBIN [id number] 06:43: 00 Test Item Value Reference Range Comments PROTIME (BEAKER) (test zclg=599) 28.0 seconds 11.9-14.2 INR (BEAKER) (test eapw=414) 2.8 <=5.9 Effective 09/16/2018: PT Reference Range ChangeNew: 11.9-14.2 Previous: 11.7- 14.7RECOMMENDED COUMADIN/WARFARIN INR THERAPY RANGESSTANDARD DOSE: 2.0-3.0 Includes: PROPHYLAXIS for venous thrombosis, systemic embolization; TREATMENT for venous thrombosis and/or pulmonary embolus.HIGH RISK: Target INR is2.5-3.5 for patients wiht mechanical heart valves.CBC (HEMOGRAM ONLY)2019-04-03 16:52:00 Test Item Value Reference Range Comments WHITE BLOOD CELL COUNT (BEAKER) (test thrx=750) 7.2 K/ L 3.5-10.5 RED BLOOD CELL COUNT (BEAKER) (test twaz=587) 2.14 M/ L 4.63-6.08 HEMOGLOBIN (BEAKER) (test vdcm=131) 7.4 GM/DL 13.7-17.5 HEMATOCRIT (BEAKER) (test dxkn=442) 23.5 % 40.1-51.0 MEAN CORPUSCULAR VOLUME (BEAKER) (test nlnf=127) 109.8 fL 79.0-92.2 MEAN CORPUSCULAR HEMOGLOBIN (BEAKER) (test 34.6 pg 25.7-32.2 wfby=134) MEAN CORPUSCULAR HEMOGLOBIN CONC (BEAKER) (test 31.5 GM/DL 32.3-36.5 emfm=525) RED CELL DISTRIBUTION WIDTH (BEAKER) (test 21.0 % 11.6-14.4 ryaq=438) PLATELET COUNT (BEAKER) (test ijot=395) 42 K/CU MM 150-450 MEAN PLATELET VOLUME (BEAKER) (test pdko=824) 11.1 fL 9.4-12.4 NUCLEATED RED BLOOD CELLS (BEAKER) (test 0 /100 WBC 0-0 pgzz=317) SPUTUM CULTURE + GRAM [id number] 12:28:00 Test Item Value Reference Range Comments CULTURE (BEAKER) (test <1+ Normal respiratory liliane ibzi=4052) present GRAM STAIN RESULT (BEAKER) 2+ WBCs (test dowj=0735) GRAM STAIN RESULT (BEAKER) 0-5 epithelial cells (test wusf=34607) GRAM STAIN RESULT (BEAKER) <1+ gram positive cocci in pairs (test bpih=96854) MRSA [id number] 12:23:00 Test Item Value Reference Range Comments CULTURE (BEAKER) (test kjeu=1098) No MRSA isolated [id number] 05:36:00 Test Item Value Reference Range Comments MAGNESIUM (BEAKER) (test rruj=499) 2.7 mg/dL 1.6-2.6 BASIC METABOLIC [id number] 05:36:00 Test Item Value Reference Range Comments SODIUM (BEAKER) (test 132 meq/L 136-145 nizt=678) POTASSIUM (BEAKER) (test 4.2 meq/L 3.5-5.1 ogqn=747) CHLORIDE (BEAKER) (test 103 meq/L 98-107 jdun=308) CO2 (BEAKER) (test 24 meq/L 22-29 wwhd=462) BLOOD UREA NITROGEN 36 mg/dL 7-21 (BEAKER) (test qxxu=675) CREATININE (BEAKER) (test 1.00 mg/dL 0.57-1.25 hcmg=439) GLUCOSE RANDOM (BEAKER) 102 mg/dL 70-105 (test tjwv=889) CALCIUM (BEAKER) (test 8.6 mg/dL 8.4-10.2 rbfm=594) EGFR (BEAKER) (test 78 mL/min/1.73 sq m ESTIMATED GFR IS NOT xgoh=4527) ACCURATE CREATININE CLEARANCE IN PREDICTING GLOMERULAR FILTRATION RATE. ESTIMATED GFR IS NOT APPLICABLE FOR DIALYSIS PATIENTS. Specimen markedly ictericHEPATIC FUNCTION [id number] 05:36:00 Test Item Value Reference Range Comments TOTAL PROTEIN (BEAKER) (test ssze=304) 6.6 gm/dL 6.0-8.3 ALBUMIN (BEAKER) (test oiee=9703) 3.0 g/dL 3.5-5.0 BILIRUBIN TOTAL (BEAKER) (test bnst=669) 13.0 mg/dL 0.2-1.2 BILIRUBIN DIRECT (BEAKER) (test qcyu=207) 5.0 mg/dL 0.1-0.5 ALKALINE PHOSPHATASE (BEAKER) (test qcxa=877) 162 U/L 40-150 AST (SGOT) (BEAKER) (test wbdm=089) 57 U/L 5-34 ALT (SGPT) (BEAKER) (test sohc=609) 41 U/L 6-55 Specimen markedly [id number] 05:07:00 Test Item Value Reference Range Comments FIBRINOGEN LEVEL (BEAKER) (test hagn=925) 147 mg/dl 225-434 [id number] 05:03:00 Test Item Value Reference Range Comments PROTIME (BEAKER) (test hjgw=951) 26.4 seconds 11.9-14.2 INR (BEAKER) (test zqyx=182) 2.6 <=5.9 PARTIAL THROMBOPLASTIN TIME (BEAKER) (test 46.2 seconds 22.5-36.0 ywks=793) Effective 09/16/2018: PT Reference Range ChangeNew: 11.9-14.2 Previous: 11.7- 14.7RECOMMENDED COUMADIN/WARFARIN INR THERAPY RANGESSTANDARD DOSE: 2.0-3.0 Includes: PROPHYLAXIS for venous thrombosis, systemic embolization; TREATMENT for venous thrombosis and/or pulmonary embolus.HIGH RISK: Target INR is2.5-3.5 for patients wiht mechanical heart valves.PROTHROMBIN [id number] 05:02: 00 Test Item Value Reference Range Comments PROTIME (BEAKER) (test xult=252) 26.4 seconds 11.9-14.2 INR (BEAKER) (test lowu=899) 2.6 <=5.9 Effective 09/16/2018: PT Reference Range ChangeNew: 11.9-14.2 Previous: 11.7- 14.7RECOMMENDED COUMADIN/WARFARIN INR THERAPY RANGESSTANDARD DOSE: 2.0-3.0 Includes: PROPHYLAXIS for venous thrombosis, systemic embolization; TREATMENT for venous thrombosis and/or pulmonary embolus.HIGH RISK: Target INR is2.5-3.5 for patients wiht mechanical heart valves.CBC (HEMOGRAM ONLY)2019-04-03 04:55:00 Test Item Value Reference Range Comments WHITE BLOOD CELL COUNT (BEAKER) (test estu=994) 6.2 K/ L 3.5-10.5 RED BLOOD CELL COUNT (BEAKER) (test zlkn=333) 2.03 M/ L 4.63-6.08 HEMOGLOBIN (BEAKER) (test aswy=751) 7.1 GM/DL 13.7-17.5 HEMATOCRIT (BEAKER) (test dfca=341) 21.8 % 40.1-51.0 MEAN CORPUSCULAR VOLUME (BEAKER) (test akzh=400) 107.4 fL 79.0-92.2 MEAN CORPUSCULAR HEMOGLOBIN (BEAKER) (test 35.0 pg 25.7-32.2 lrdh=666) MEAN CORPUSCULAR HEMOGLOBIN CONC (BEAKER) (test 32.6 GM/DL 32.3-36.5 ituf=224) RED CELL DISTRIBUTION WIDTH (BEAKER) (test 21.3 % 11.6-14.4 uifk=915) PLATELET COUNT (BEAKER) (test enxx=529) 47 K/CU MM 150-450 MEAN PLATELET VOLUME (BEAKER) (test rvbq=358) 11.3 fL 9.4-12.4 NUCLEATED RED BLOOD CELLS (BEAKER) (test 0 /100 WBC 0-0 wvom=368) CBC (HEMOGRAM ONLY)2019-04-02 22:21:00 Test Item Value Reference Range Comments WHITE BLOOD CELL COUNT (BEAKER) (test eppp=745) 5.6 K/ L 3.5-10.5 RED BLOOD CELL COUNT (BEAKER) (test arjj=211) 1.99 M/ L 4.63-6.08 HEMOGLOBIN (BEAKER) (test fphu=398) 7.0 GM/DL 13.7-17.5 HEMATOCRIT (BEAKER) (test htaz=438) 21.3 % 40.1-51.0 MEAN CORPUSCULAR VOLUME (BEAKER) (test vxfi=131) 107.0 fL 79.0-92.2 MEAN CORPUSCULAR HEMOGLOBIN (BEAKER) (test 35.2 pg 25.7-32.2 lnil=108) MEAN CORPUSCULAR HEMOGLOBIN CONC (BEAKER) (test 32.9 GM/DL 32.3-36.5 oosi=614) RED CELL DISTRIBUTION WIDTH (BEAKER) (test 21.2 % 11.6-14.4 hnra=041) PLATELET COUNT (BEAKER) (test cacf=133) 42 K/CU MM 150-450 MEAN PLATELET VOLUME (BEAKER) (test xdld=318) 10.5 fL 9.4-12.4 NUCLEATED RED BLOOD CELLS (BEAKER) (test 0 /100 WBC 0-0 iclx=999) [id number] 16:52:00 Test Item Value Reference Range Comments MAGNESIUM (BEAKER) (test aflw=609) 2.6 mg/dL 1.6-2.6 BASIC METABOLIC [id number] 16:52:00 Test Item Value Reference Range Comments SODIUM (BEAKER) (test 134 meq/L 136-145 atfk=809) POTASSIUM (BEAKER) (test 4.3 meq/L 3.5-5.1 frze=158) CHLORIDE (BEAKER) (test 103 meq/L 98-107 hqbh=125) CO2 (BEAKER) (test 26 meq/L 22-29 llcs=253) BLOOD UREA NITROGEN 41 mg/dL 7-21 (BEAKER) (test lqox=658) CREATININE (BEAKER) (test 1.20 mg/dL 0.57-1.25 tcvv=394) GLUCOSE RANDOM (BEAKER) 119 mg/dL 70-105 (test gigo=895) CALCIUM (BEAKER) (test 8.9 mg/dL 8.4-10.2 fzsq=906) EGFR (BEAKER) (test 63 mL/min/1.73 sq m ESTIMATED GFR IS NOT erim=5816) ACCURATE CREATININE CLEARANCE IN PREDICTING GLOMERULAR FILTRATION RATE. ESTIMATED GFR IS NOT APPLICABLE FOR DIALYSIS PATIENTS. Specimen markedly ictericCBC (HEMOGRAM ONLY)2019-04-02 16:47:00 Test Item Value Reference Range Comments WHITE BLOOD CELL COUNT (BEAKER) (test dldz=255) 5.0 K/ L 3.5-10.5 RED BLOOD CELL COUNT (BEAKER) (test jnyk=620) 2.10 M/ L 4.63-6.08 HEMOGLOBIN (BEAKER) (test ovvs=360) 7.3 GM/DL 13.7-17.5 HEMATOCRIT (BEAKER) (test dxjt=155) 22.4 % 40.1-51.0 MEAN CORPUSCULAR VOLUME (BEAKER) (test bkze=427) 106.7 fL 79.0-92.2 MEAN CORPUSCULAR HEMOGLOBIN (BEAKER) (test 34.8 pg 25.7-32.2 lnbv=046) MEAN CORPUSCULAR HEMOGLOBIN CONC (BEAKER) (test 32.6 GM/DL 32.3-36.5 elsu=148) RED CELL DISTRIBUTION WIDTH (BEAKER) (test 20.2 % 11.6-14.4 wcfh=744) PLATELET COUNT (BEAKER) (test vbrl=798) 44 K/CU MM 150-450 MEAN PLATELET VOLUME (BEAKER) (test ageu=811) 11.2 fL 9.4-12.4 NUCLEATED RED BLOOD CELLS (BEAKER) (test 0 /100 WBC 0-0 hsnb=587) PERIPHERAL BLOOD SMEAR - PATHOLOGIST [id number] 12:50:00 Test Item Value Reference Range Comments PERIPHERAL SMR REVIEW No circulating blasts. No (BEAKER) (test qrfj=8281) significantly increased schistocytes. [id number] Benny Gould, (BEAKER) (test sebi=5784) M.D.(electronic signature) CT, CTA [id number] 11:18:00FINAL REPORT INDICATION :Acute GI bleed. COMPARISON: None. TECHNIQUE: CTA of the Abdomen and Pelvis WITHOUT and WITH intravenous contrast. Enteric contrast was not used. The exam was performed according to our department dose-optimization protocol, which includes automated exposure control, adjustments of mA and kV according to patient size. Iterative reconstructions are also sometimes employed. FINDINGS: On precontrast scan no pooling hyperdense fluid in the bowel is demonstrated, and on arterial phase there is no blush of contrast in the bowel. No bowel mass is demonstrated. The liver contour is nodular representing cirrhosis and there is a large splenorenal shunt. No liver mass is demonstrated. Hepatic vasculature is patent. Spleen mildly enlarged measuring 13 cm coronal long axis. No ascites. Patient is status post cholecystectomy. There is no biliary ductal dilation. Pancreas, adrenal glands, and kidneys are normal. Bladder mildly distended and no bladder wall abnormality demonstrated. There is diffuse body wall edema. No pleural effusion. Lumbar multilevel chronic endplate degenerative changes noted. No suspicious osseous lesion or compression fracture. IMPRESSION: No CT evidence of GI bleed. Cirrhosis and hypertension with large splenorenal shunt. No significant esophageal varices or gastric or duodenal submucosal varices demonstrated. Signed: Gregorio Lott MDReport Verified Date/Time: 04/02/2019 11:18:07 Reading Location: [facility] C013Y CT Body Reading Room Electronically signed by: GREGORIO LOTT M.D. on 2018 11:18 [id number] 08:29:00 Test Item Value Reference Range Comments HAPTOGLOBIN (BEAKER) (test hyvd=406) 23 mg/dL 14-258 LACTATE DEHYDROGENASE (LDH)2019-04-02 08:19:00 Test Item Value Reference Range Comments LACTATE DEHYDROGENASE (BEAKER) (test vdcf=020) 366 U/L 125-220 URINALYSIS W/ [id number] 07:31:00 Test Item Value Reference Range Comments COLOR (BEAKER) (test wjxe=107) Yellow CLARITY (BEAKER) (test oqdv=601) Clear SPECIFIC GRAVITY UA (BEAKER) (test uzxk=510) 1.019 1.001-1.035 PH UA (BEAKER) (test tfqo=990) 5.5 5.0-8.0 PROTEIN UA (BEAKER) (test hsew=247) Negative Negative GLUCOSE UA (BEAKER) (test znff=231) Negative Negative KETONES UA (BEAKER) (test pnwz=849) Negative Negative BILIRUBIN UA (BEAKER) (test gxfr=239) Negative Negative BLOOD UA (BEAKER) (test zzzi=356) Moderate Negative NITRITE UA (BEAKER) (test yuqd=549) Negative Negative LEUKOCYTE ESTERASE UA (BEAKER) (test mncr=822) Negative Negative UROBILINOGEN UA (BEAKER) (test clgh=076) 0.2 mg/dL 0.2-1.0 RBC UA (BEAKER) (test qyrq=384) 16 /HPF WBC UA (BEAKER) (test gggr=377) 6 /HPF MUCUS (BEAKER) (test qsoq=2171) Rare SQUAMOUS EPITHELIAL (BEAKER) (test nvwb=929) 1 /HPF SOURCE(BEAKER) (test fonr=1111) [id number] 04:41:00 Test Item Value Reference Range Comments MAGNESIUM (BEAKER) (test srnd=389) 2.5 mg/dL 1.6-2.6 BASIC METABOLIC [id number] 04:41:00 Test Item Value Reference Range Comments SODIUM (BEAKER) (test 132 meq/L 136-145 pdtj=493) POTASSIUM (BEAKER) (test 4.1 meq/L 3.5-5.1 kcyg=902) CHLORIDE (BEAKER) (test 103 meq/L 98-107 weuy=903) CO2 (BEAKER) (test 25 meq/L 22-29 nblm=736) BLOOD UREA NITROGEN 47 mg/dL 7-21 (BEAKER) (test txhu=734) CREATININE (BEAKER) (test 1.42 mg/dL 0.57-1.25 bimp=110) GLUCOSE RANDOM (BEAKER) 134 mg/dL 70-105 (test rgdk=513) CALCIUM (BEAKER) (test 8.3 mg/dL 8.4-10.2 akwo=729) EGFR (BEAKER) (test 52 mL/min/1.73 sq m ESTIMATED GFR IS NOT pjmk=8804) ACCURATE CREATININE CLEARANCE IN PREDICTING GLOMERULAR FILTRATION RATE. ESTIMATED GFR IS NOT APPLICABLE FOR DIALYSIS PATIENTS. Specimen markedly ictericCBC W/PLT COUNT & AUTO [id number] 04:34 :00 Test Item Value Reference Range Comments WHITE BLOOD CELL COUNT (BEAKER) (test maps=685) 7.9 K/ L 3.5-10.5 RED BLOOD CELL COUNT (BEAKER) (test ainz=149) 1.85 M/ L 4.63-6.08 HEMOGLOBIN (BEAKER) (test qffk=537) 6.6 GM/DL 13.7-17.5 HEMATOCRIT (BEAKER) (test qtbj=338) 19.8 % 40.1-51.0 MEAN CORPUSCULAR VOLUME (BEAKER) (test xkzx=733) 107.0 fL 79.0-92.2 MEAN CORPUSCULAR HEMOGLOBIN (BEAKER) (test 35.7 pg 25.7-32.2 fssa=415) MEAN CORPUSCULAR HEMOGLOBIN CONC (BEAKER) (test 33.3 GM/DL 32.3-36.5 rrne=480) RED CELL DISTRIBUTION WIDTH (BEAKER) (test 19.6 % 11.6-14.4 wphg=947) PLATELET COUNT (BEAKER) (test vmgn=344) 38 K/CU MM 150-450 MEAN PLATELET VOLUME (BEAKER) (test hwqp=994) 10.4 fL 9.4-12.4 NUCLEATED RED BLOOD CELLS (BEAKER) (test 0 /100 WBC 0-0 ocpr=979) NEUTROPHILS RELATIVE PERCENT (BEAKER) (test 78 % vteb=148) LYMPHOCYTES RELATIVE PERCENT (BEAKER) (test 12 % pctw=192) MONOCYTES RELATIVE PERCENT (BEAKER) (test 9 % bvtl=743) EOSINOPHILS RELATIVE PERCENT (BEAKER) (test 0 % dawt=108) BASOPHILS RELATIVE PERCENT (BEAKER) (test 0 % oqaj=705) NEUTROPHILS ABSOLUTE COUNT (BEAKER) (test 6.17 K/ L 1.78-5.38 dkjb=938) LYMPHOCYTES ABSOLUTE COUNT (BEAKER) (test 0.91 K/ L 1.32-3.57 efcu=979) MONOCYTES ABSOLUTE COUNT (BEAKER) (test onpo=065) 0.74 K/ L 0.30-0.82 EOSINOPHILS ABSOLUTE COUNT (BEAKER) (test 0.03 K/ L 0.04-0.54 ybxq=815) BASOPHILS ABSOLUTE COUNT (BEAKER) (test pchj=105) 0.00 K/ L 0.01-0.08 IMMATURE GRANULOCYTES-RELATIVE PERCENT (BEAKER) 1 % 0-1 (test ofel=3784) [id number] 04:31:00 Test Item Value Reference Range Comments FIBRINOGEN LEVEL (BEAKER) (test mlyd=056) 122 mg/dl 225-434 [id number] 04:27:00 Test Item Value Reference Range Comments PROTIME (BEAKER) (test dqxs=242) 29.2 seconds 11.9-14.2 INR (BEAKER) (test unnw=884) 3.0 <=5.9 PARTIAL THROMBOPLASTIN TIME (BEAKER) (test 48.7 seconds 22.5-36.0 fcgi=695) Effective 09/16/2018: PT Reference Range ChangeNew: 11.9-14.2 Previous: 11.7- 14.7RECOMMENDED COUMADIN/WARFARIN INR THERAPY RANGESSTANDARD DOSE: 2.0-3.0 Includes: PROPHYLAXIS for venous thrombosis, systemic embolization; TREATMENT for venous thrombosis and/or pulmonary embolus.HIGH RISK: Target INR is2.5-3.5 for patients wiht mechanical heart valves.CBC W/PLT COUNT & AUTO [id number] 03:50:00 Test Item Value Reference Range Comments WHITE BLOOD CELL COUNT 8.4 K/ L 3.5-10.5 (BEAKER) (test rmfw=645) RED BLOOD CELL COUNT (BEAKER) 1.81 M/ L 4.63-6.08 (test bkgb=661) HEMOGLOBIN (BEAKER) (test 6.4 GM/DL 13.7-17.5 lazb=528) HEMATOCRIT (BEAKER) (test 19.1 % 40.1-51.0 uvia=976) MEAN CORPUSCULAR VOLUME 105.5 fL 79.0-92.2 Discordant result compared (BEAKER) (test cuxa=154) to previous result. Clinical correlation required MEAN CORPUSCULAR HEMOGLOBIN 35.4 pg 25.7-32.2 (BEAKER) (test oorw=451) MEAN CORPUSCULAR HEMOGLOBIN 33.5 GM/DL 32.3-36.5 CONC (BEAKER) (test qrvt=202) RED CELL DISTRIBUTION WIDTH 19.3 % 11.6-14.4 (BEAKER) (test bxya=145) PLATELET COUNT (BEAKER) (test 40 K/CU MM 150-450 enlq=811) MEAN PLATELET VOLUME (BEAKER) 11.4 fL 9.4-12.4 (test kuev=717) NUCLEATED RED BLOOD CELLS 0 /100 WBC 0-0 (BEAKER) (test mwtq=124) NEUTROPHILS RELATIVE PERCENT 79 % (BEAKER) (test tjgd=422) LYMPHOCYTES RELATIVE PERCENT 11 % (BEAKER) (test ulrf=779) MONOCYTES RELATIVE PERCENT 9 % (BEAKER) (test ivsx=933) EOSINOPHILS RELATIVE PERCENT 0 % (BEAKER) (test catz=824) BASOPHILS RELATIVE PERCENT 0 % (BEAKER) (test sspe=237) NEUTROPHILS ABSOLUTE COUNT 6.55 K/ L 1.78-5.38 (BEAKER) (test lgqx=611) LYMPHOCYTES ABSOLUTE COUNT 0.91 K/ L 1.32-3.57 (BEAKER) (test yhpo=996) MONOCYTES ABSOLUTE COUNT 0.76 K/ L 0.30-0.82 (BEAKER) (test chlo=318) EOSINOPHILS ABSOLUTE COUNT 0.01 K/ L 0.04-0.54 (BEAKER) (test dxim=089) BASOPHILS ABSOLUTE COUNT 0.01 K/ L 0.01-0.08 (BEAKER) (test fpdv=712) IMMATURE GRANULOCYTES-RELATIVE 1 % 0-1 PERCENT (BEAKER) (test slox=2878) Review slide. Patient received blood product.SODIUM, RANDOM [id number] 03: 12:00 Test Item Value Reference Range Comments SODIUM URINE (BEAKER) (test yzxe=368) < meq/L Reference Range: No [id number] 03:06:00 Test Item Value Reference Range Comments PHOSPHORUS (BEAKER) (test wlro=947) 3.5 mg/dL 2.3-4.7 [id number] 03:06:00 Test Item Value Reference Range Comments MAGNESIUM (BEAKER) (test xlwk=054) 2.4 mg/dL 1.6-2.6 BASIC METABOLIC [id number] 03:06:00 Test Item Value Reference Range Comments SODIUM (BEAKER) (test 127 meq/L 136-145 etew=139) POTASSIUM (BEAKER) (test 4.0 meq/L 3.5-5.1 gbei=834) CHLORIDE (BEAKER) (test 99 meq/L 98-107 lsec=181) CO2 (BEAKER) (test 23 meq/L 22-29 aduq=022) BLOOD UREA NITROGEN 45 mg/dL 7-21 (BEAKER) (test jpwc=507) CREATININE (BEAKER) (test 1.37 mg/dL 0.57-1.25 rbrs=454) GLUCOSE RANDOM (BEAKER) 304 mg/dL 70-105 (test zmql=434) CALCIUM (BEAKER) (test 8.0 mg/dL 8.4-10.2 xfvc=871) EGFR (BEAKER) (test 54 mL/min/1.73 sq m ESTIMATED GFR IS NOT zbyj=4425) ACCURATE CREATININE CLEARANCE IN PREDICTING GLOMERULAR FILTRATION RATE. ESTIMATED GFR IS NOT APPLICABLE FOR DIALYSIS PATIENTS. Specimen markedly ictericHEPATIC FUNCTION [id number] 03:06:00 Test Item Value Reference Range Comments TOTAL PROTEIN (BEAKER) (test twqs=009) 5.9 gm/dL 6.0-8.3 ALBUMIN (BEAKER) (test bzqx=9203) 2.5 g/dL 3.5-5.0 BILIRUBIN TOTAL (BEAKER) (test gwyi=582) 11.8 mg/dL 0.2-1.2 BILIRUBIN DIRECT (BEAKER) (test ffkp=476) 4.5 mg/dL 0.1-0.5 ALKALINE PHOSPHATASE (BEAKER) (test flwn=755) 160 U/L 40-150 AST (SGOT) (BEAKER) (test faio=102) 61 U/L 5-34 ALT (SGPT) (BEAKER) (test jqxg=500) 40 U/L 6-55 Specimen markedly ictericCREATINE KINASE (CK)2019-04-02 03:06:00 Test Item Value Reference Range Comments CREATINE KINASE TOTAL (BEAKER) (test blta=712) 92 U/L 29-200 CREATININE, RANDOM [id number] 03:01:00 Test Item Value Reference Range Comments CREATININE URINE (BEAKER) (test mbti=287) 88.7 mg/dL Reference Range: No NormalsPOCT-GLUCOSE [id number] 00:00:00 Test Item Value Reference Range Comments POC-GLUCOSE METER (BEAKER) 125 mg/dL 70-110 : TESTED AT [address] (test sntm=6418) [facility], [address]: [employer]/Inspector And Clerk [phone] for FRANCO BOWDEN [id number] 18:55:00 Test Item Value Reference Range Comments MAGNESIUM (BEAKER) (test 2.5 mg/dL 1.6-2.6 Specimen slightly hemolyzed niub=074) BASIC METABOLIC [id number] 18:55:00 Test Item Value Reference Range Comments SODIUM (BEAKER) (test 132 meq/L 136-145 rzoy=878) POTASSIUM (BEAKER) (test 4.5 meq/L 3.5-5.1 Specimen slightly rrba=620) hemolyzed CHLORIDE (BEAKER) (test 102 meq/L 98-107 myoc=293) CO2 (BEAKER) (test 24 meq/L 22-29 xpnm=341) BLOOD UREA NITROGEN 47 mg/dL 7-21 (BEAKER) (test bhkx=535) CREATININE (BEAKER) (test 1.50 mg/dL 0.57-1.25 Specimen slightly jchl=174) hemolyzed GLUCOSE RANDOM (BEAKER) 145 mg/dL 70-105 (test ycsk=229) CALCIUM (BEAKER) (test 8.2 mg/dL 8.4-10.2 rmov=153) EGFR (BEAKER) (test 49 mL/min/1.73 sq m ESTIMATED GFR IS NOT abkz=3123) ACCURATE CREATININE CLEARANCE IN PREDICTING GLOMERULAR FILTRATION RATE. ESTIMATED GFR IS NOT APPLICABLE FOR DIALYSIS PATIENTS. Specimen markedly ictericCBC (HEMOGRAM ONLY)2019-04-01 18:29:00 Test Item Value Reference Range Comments WHITE BLOOD CELL COUNT (BEAKER) (test iweb=858) 10.8 K/ L 3.5-10.5 RED BLOOD CELL COUNT (BEAKER) (test nuzz=140) 1.74 M/ L 4.63-6.08 HEMOGLOBIN (BEAKER) (test keie=190) 6.4 GM/DL 13.7-17.5 HEMATOCRIT (BEAKER) (test kksr=098) 19.2 % 40.1-51.0 MEAN CORPUSCULAR VOLUME (BEAKER) (test nawr=668) 110.3 fL 79.0-92.2 MEAN CORPUSCULAR HEMOGLOBIN (BEAKER) (test 36.8 pg 25.7-32.2 rfdu=641) MEAN CORPUSCULAR HEMOGLOBIN CONC (BEAKER) (test 33.3 GM/DL 32.3-36.5 qmik=384) RED CELL DISTRIBUTION WIDTH (BEAKER) (test 17.6 % 11.6-14.4 wypv=919) PLATELET COUNT (BEAKER) (test ntsf=821) 52 K/CU MM 150-450 MEAN PLATELET VOLUME (BEAKER) (test jpra=860) 11.7 fL 9.4-12.4 NUCLEATED RED BLOOD CELLS (BEAKER) (test 0 /100 WBC 0-0 styb=741) POCT-GLUCOSE [id number] 17:40:00 Test Item Value Reference Range Comments POC-GLUCOSE METER (BEAKER) 162 mg/dL 70-110 : TESTED AT [address] (test nlzv=5080) [facility], [address]: Commissioner Public [employer]/Inspector And Clerk [phone] for LUIS CARLOS ANNE POCT-GLUCOSE [id number] 06:48:00 Test Item Value Reference Range Comments POC-GLUCOSE METER (BEAKER) 135 mg/dL 70-110 : Notified RN/MD: TESTED AT (test rvrk=1620) [address], [address]: Commissioner Public Works/Inspector And Clerk [phone] for DIAZ GONZALES CBC (HEMOGRAM ONLY)2019-04-01 04:47:00 Test Item Value Reference Range Comments WHITE BLOOD CELL COUNT (BEAKER) (test qutt=517) 11.5 K/ L 3.5-10.5 RED BLOOD CELL COUNT (BEAKER) (test slup=010) 2.03 M/ L 4.63-6.08 HEMOGLOBIN (BEAKER) (test vhop=099) 7.2 GM/DL 13.7-17.5 HEMATOCRIT (BEAKER) (test kwcc=498) 22.2 % 40.1-51.0 MEAN CORPUSCULAR VOLUME (BEAKER) (test oxtq=829) 109.4 fL 79.0-92.2 MEAN CORPUSCULAR HEMOGLOBIN (BEAKER) (test 35.5 pg 25.7-32.2 awzb=152) MEAN CORPUSCULAR HEMOGLOBIN CONC (BEAKER) (test 32.4 GM/DL 32.3-36.5 qutk=360) RED CELL DISTRIBUTION WIDTH (BEAKER) (test 17.7 % 11.6-14.4 vezd=522) PLATELET COUNT (BEAKER) (test soxj=065) 57 K/CU MM 150-450 MEAN PLATELET VOLUME (BEAKER) (test uioi=267) 11.0 fL 9.4-12.4 NUCLEATED RED BLOOD CELLS (BEAKER) (test 0 /100 WBC 0-0 nhli=044) [id number] 04:46:00 Test Item Value Reference Range Comments MAGNESIUM (BEAKER) (test cxbk=691) 2.3 mg/dL 1.6-2.6 BASIC METABOLIC [id number] 04:46:00 Test Item Value Reference Range Comments SODIUM (BEAKER) (test 132 meq/L 136-145 fjqa=148) POTASSIUM (BEAKER) (test 5.0 meq/L 3.5-5.1 fyue=345) CHLORIDE (BEAKER) (test 103 meq/L 98-107 ihid=983) CO2 (BEAKER) (test 24 meq/L 22-29 fzrj=116) BLOOD UREA NITROGEN 47 mg/dL 7-21 (BEAKER) (test fnmc=959) CREATININE (BEAKER) (test 1.64 mg/dL 0.57-1.25 eipd=860) GLUCOSE RANDOM (BEAKER) 150 mg/dL 70-105 (test wqyy=636) CALCIUM (BEAKER) (test 8.3 mg/dL 8.4-10.2 glwg=648) EGFR (BEAKER) (test 44 mL/min/1.73 sq m ESTIMATED GFR IS NOT nzhb=4426) ACCURATE CREATININE CLEARANCE IN PREDICTING GLOMERULAR FILTRATION RATE. ESTIMATED GFR IS NOT APPLICABLE FOR DIALYSIS PATIENTS. Specimen markedly ictericHEPATIC FUNCTION [id number] 04:46:00 Test Item Value Reference Range Comments TOTAL PROTEIN (BEAKER) (test bezk=169) 6.1 gm/dL 6.0-8.3 ALBUMIN (BEAKER) (test vofr=4148) 2.2 g/dL 3.5-5.0 BILIRUBIN TOTAL (BEAKER) (test ydur=632) 14.8 mg/dL 0.2-1.2 BILIRUBIN DIRECT (BEAKER) (test hggl=889) 5.3 mg/dL 0.1-0.5 ALKALINE PHOSPHATASE (BEAKER) (test buxs=821) 185 U/L 40-150 AST (SGOT) (BEAKER) (test gikl=550) 72 U/L 5-34 ALT (SGPT) (BEAKER) (test lazt=862) 48 U/L 6-55 Specimen markedly [id number] 04:36:00 Test Item Value Reference Range Comments FIBRINOGEN LEVEL (BEAKER) (test uidj=674) 132 mg/dl 225-434 [id number] 04:31:00 Test Item Value Reference Range Comments PROTIME (BEAKER) (test cbmr=163) 27.4 seconds 11.9-14.2 INR (BEAKER) (test ahle=381) 2.7 <=5.9 PARTIAL THROMBOPLASTIN TIME (BEAKER) (test 50.1 seconds 22.5-36.0 hicy=475) Effective 09/16/2018: PT Reference Range ChangeNew: 11.9-14.2 Previous: 11.7- 14.7RECOMMENDED COUMADIN/WARFARIN INR THERAPY RANGESSTANDARD DOSE: 2.0-3.0 Includes: PROPHYLAXIS for venous thrombosis, systemic embolization; TREATMENT for venous thrombosis and/or pulmonary embolus.HIGH RISK: Target INR is2.5-3.5 for patients wiht mechanical heart valves.POCT-GLUCOSE [id number] 00:31:00 Test Item Value Reference Range Comments POC-GLUCOSE METER (BEAKER) 139 mg/dL 70-110 : TESTED AT [place] [id number] [facility] (test vkga=1831) [facility], [address]: Commissioner Public Works/Inspector And Clerk [phone] for SHENA AYON CBC (HEMOGRAM ONLY)2019-03-31 22:06:00 Test Item Value Reference Range Comments WHITE BLOOD CELL COUNT (BEAKER) (test igix=429) 9.5 K/ L 3.5-10.5 RED BLOOD CELL COUNT (BEAKER) (test bhfn=756) 1.99 M/ L 4.63-6.08 HEMOGLOBIN (BEAKER) (test moeg=681) 7.1 GM/DL 13.7-17.5 HEMATOCRIT (BEAKER) (test tdcm=592) 22.3 % 40.1-51.0 MEAN CORPUSCULAR VOLUME (BEAKER) (test uihs=582) 112.1 fL 79.0-92.2 MEAN CORPUSCULAR HEMOGLOBIN (BEAKER) (test 35.7 pg 25.7-32.2 kwzn=093) MEAN CORPUSCULAR HEMOGLOBIN CONC (BEAKER) (test 31.8 GM/DL 32.3-36.5 ivso=978) RED CELL DISTRIBUTION WIDTH (BEAKER) (test 17.5 % 11.6-14.4 moro=803) PLATELET COUNT (BEAKER) (test epkc=083) 51 K/CU MM 150-450 MEAN PLATELET VOLUME (BEAKER) (test laxh=590) 10.8 fL 9.4-12.4 NUCLEATED RED BLOOD CELLS (BEAKER) (test 0 /100 WBC 0-0 ijwp=271) POCT-GLUCOSE [id number] 17:36:00 Test Item Value Reference Range Comments POC-GLUCOSE METER (BEAKER) 126 mg/dL 70-110 : Notified RN/MD: TESTED AT (test dyoj=6240) [facility] [address] [facility], [address]: [employer]Inspector And Clerk [phone]=[id number] for KANU MARTINEZ BASIC METABOLIC [id number] 16:36:00 Test Item Value Reference Range Comments SODIUM (BEAKER) (test 137 meq/L 136-145 clbu=821) POTASSIUM (BEAKER) (test 4.8 meq/L 3.5-5.1 tlvq=558) CHLORIDE (BEAKER) (test 106 meq/L 98-107 xzuv=187) CO2 (BEAKER) (test 24 meq/L 22-29 fcvo=444) BLOOD UREA NITROGEN 41 mg/dL 7-21 (BEAKER) (test kvbh=289) CREATININE (BEAKER) (test 1.46 mg/dL 0.57-1.25 zgpf=843) GLUCOSE RANDOM (BEAKER) 138 mg/dL 70-105 (test iepc=930) CALCIUM (BEAKER) (test 8.6 mg/dL 8.4-10.2 acgf=535) EGFR (BEAKER) (test 51 mL/min/1.73 sq m ESTIMATED GFR IS NOT knmy=8848) ACCURATE CREATININE CLEARANCE IN PREDICTING GLOMERULAR FILTRATION RATE. ESTIMATED GFR IS NOT APPLICABLE FOR DIALYSIS PATIENTS. Specimen markedly ictericCBC (HEMOGRAM ONLY)2019-03-31 16:21:00 Test Item Value Reference Range Comments WHITE BLOOD CELL COUNT (BEAKER) (test pnwl=767) 7.2 K/ L 3.5-10.5 RED BLOOD CELL COUNT (BEAKER) (test bobc=831) 2.02 M/ L 4.63-6.08 HEMOGLOBIN (BEAKER) (test iwll=274) 7.2 GM/DL 13.7-17.5 HEMATOCRIT (BEAKER) (test pnnf=151) 22.4 % 40.1-51.0 MEAN CORPUSCULAR VOLUME (BEAKER) (test dvjd=234) 110.9 fL 79.0-92.2 MEAN CORPUSCULAR HEMOGLOBIN (BEAKER) (test 35.6 pg 25.7-32.2 xvnb=923) MEAN CORPUSCULAR HEMOGLOBIN CONC (BEAKER) (test 32.1 GM/DL 32.3-36.5 lonh=907) RED CELL DISTRIBUTION WIDTH (BEAKER) (test 17.4 % 11.6-14.4 ugom=674) PLATELET COUNT (BEAKER) (test clez=780) 52 K/CU MM 150-450 MEAN PLATELET VOLUME (BEAKER) (test drnl=824) 10.6 fL 9.4-12.4 NUCLEATED RED BLOOD CELLS (BEAKER) (test 0 /100 WBC 0-0 zfwn=464) B-TYPE NATRIURETIC FACTOR (BNP)2019-03-31 12:52:00 Test Item Value Reference Range Comments B-TYPE NATRIURETIC PEPTIDE (BEAKER) (test 1031 pg/mL 0-100 gsax=110) POCT-GLUCOSE [id number] 12:03:00 Test Item Value Reference Range Comments POC-GLUCOSE METER (BEAKER) 145 mg/dL 70-110 : [facility] [address] [facility] (test mtnx=1939) [facility], [address]: [employer]/Inspector And Clerk [phone]=[id number] for NEVA BARRETO URINALYSIS W/ REFLEX URINE [id number] 11:21:00 Test Item Value Reference Range Comments COLOR (BEAKER) (test pbvu=274) [place] CLARITY (BEAKER) (test axfz=087) Hazy SPECIFIC GRAVITY UA (BEAKER) (test rjcw=750) 1.021 1.001-1.035 PH UA (BEAKER) (test wmmh=526) 5.5 5.0-8.0 PROTEIN UA (BEAKER) (test uhox=700) 30 mg/dL Negative GLUCOSE UA (BEAKER) (test zqxj=264) Negative Negative KETONES UA (BEAKER) (test psww=010) Negative Negative BILIRUBIN UA (BEAKER) (test fthd=228) Positive Negative BLOOD UA (BEAKER) (test klrj=235) Moderate Negative NITRITE UA (BEAKER) (test mkst=330) Negative Negative LEUKOCYTE ESTERASE UA (BEAKER) (test gnbw=344) Large Negative UROBILINOGEN UA (BEAKER) (test eimn=510) 0.2 mg/dL 0.2-1.0 RBC UA (BEAKER) (test cpbv=362) 22 /HPF WBC UA (BEAKER) (test ppqk=179) 64 /HPF BACTERIA (BEAKER) (test csbl=442) Rare MUCUS (BEAKER) (test objo=9961) Rare SQUAMOUS EPITHELIAL (BEAKER) (test paom=142) < /HPF HYALINE CASTS (BEAKER) (test kwqt=774) 236 /LPF SOURCE(BEAKER) (test wldm=4448) LACTIC ACID, [id number] 10:17:00 Test Item Value Reference Range Comments LACTATE BLOOD VENOUS (2) (BEAKER) (test 2.2 mmol/L 0.5-2.2 wtpp=9973) Specimen markedly ictericCBC (HEMOGRAM ONLY)2019-03-31 09:43:00 Test Item Value Reference Range Comments WHITE BLOOD CELL COUNT (BEAKER) (test kxmq=643) 6.7 K/ L 3.5-10.5 RED BLOOD CELL COUNT (BEAKER) (test vfaq=557) 2.13 M/ L 4.63-6.08 HEMOGLOBIN (BEAKER) (test vqvq=347) 7.7 GM/DL 13.7-17.5 HEMATOCRIT (BEAKER) (test igkg=775) 23.3 % 40.1-51.0 MEAN CORPUSCULAR VOLUME (BEAKER) (test jfmc=497) 109.4 fL 79.0-92.2 MEAN CORPUSCULAR HEMOGLOBIN (BEAKER) (test 36.2 pg 25.7-32.2 tdha=576) MEAN CORPUSCULAR HEMOGLOBIN CONC (BEAKER) (test 33.0 GM/DL 32.3-36.5 oihr=671) RED CELL DISTRIBUTION WIDTH (BEAKER) (test 17.4 % 11.6-14.4 cadd=702) PLATELET COUNT (BEAKER) (test eniu=647) 60 K/CU MM 150-450 MEAN PLATELET VOLUME (BEAKER) (test wbmm=302) 10.4 fL 9.4-12.4 NUCLEATED RED BLOOD CELLS (BEAKER) (test 0 /100 WBC 0-0 fzbk=036) RAD, CHEST, 1 VIEW, NON [id number] 07:31:00Reason for exam:->ETTShould this be performed at the bedside?->YesFINAL REPORT RAD , CHEST, 1 VIEW, NON DEPT INDICATION: ETT COMPARISON: Prior day's exam FINDINGS : Portable frontal view of the chest. IMPRESSION: Support Lines: ET tube tip is 3 cm superior to the joey. Lungs and pleura: Bilateral lower lobe airspace disease is slightly decreased in the interim. Lungs remain hypoinflated. No pneumothorax.Heart and mediastinum: Stable contours. Additional findings: None. Signed: Lucrecia Micheleeport Verified Date/Time: 03/31/2019 07:31:43 Reading Location: [facility] Radiology Reading Room [id number] 06:19:00 Test Item Value Reference Range Comments MAGNESIUM (BEAKER) (test udjy=148) 2.3 mg/dL 1.6-2.6 BASIC METABOLIC [id number] 06:19:00 Test Item Value Reference Range Comments SODIUM (BEAKER) (test 136 meq/L 136-145 mvfw=116) POTASSIUM (BEAKER) (test 4.7 meq/L 3.5-5.1 bqes=786) CHLORIDE (BEAKER) (test 105 meq/L 98-107 arcy=049) CO2 (BEAKER) (test 24 meq/L 22-29 zpxu=829) BLOOD UREA NITROGEN 33 mg/dL 7-21 (BEAKER) (test wiec=251) CREATININE (BEAKER) (test 1.29 mg/dL 0.57-1.25 hfyz=961) GLUCOSE RANDOM (BEAKER) 121 mg/dL 70-105 (test mkaq=655) CALCIUM (BEAKER) (test 8.6 mg/dL 8.4-10.2 vovf=188) EGFR (BEAKER) (test 58 mL/min/1.73 sq m ESTIMATED GFR IS NOT lqpr=3124) ACCURATE CREATININE CLEARANCE IN PREDICTING GLOMERULAR FILTRATION RATE. ESTIMATED GFR IS NOT APPLICABLE FOR DIALYSIS PATIENTS. Specimen markedly ictericU/S, ABDOMINAL, [id number] 06:14:00Reason for exam:->ALTERED MENTAL STATUSFINAL REPORT History: Confusion Abdominal ultrasound dated 03/31/2019 Comparison: 09/14/2018 Comment: Real-time transabdominal ultrasound of the abdomen was performed. Liver: 11.3 cm , normal. Nodular contour suggesting cirrhosis. No focal lesions. Gallbladder : Nonvisualized, possibly absent. Biliary tree: No intrahepatic ductal dilatation. CBD: 4 mm. MPV: 10 mm. There is hepatofugal flow in the main portal vein Spleen: Normal size and echogenicity. There are varices in thesplenic hilum. Pancreas: Unremarkable. Right kidney: 10.6 x 5.6 x 5.4 cm. Normal echogenicity.Left kidney: 10.5 x 5.5 x 5.2 cm. Normal echogenicity. No ascites is present in the abdomen. The visualized abdominal aorta is normal in caliber. The IVC and Hepatic veins are patent. 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 Signed:Mac Arredondo MDReport Verified Date/Time: 03/31/2019 06:14:45 CBC W/PLT COUNT & AUTO [id number] 06:06:00 Test Item Value Reference Range Comments WHITE BLOOD CELL COUNT (BEAKER) (test ydmx=638) 6.1 K/ L 3.5-10.5 RED BLOOD CELL COUNT (BEAKER) (test cmgu=434) 2.18 M/ L 4.63-6.08 HEMOGLOBIN (BEAKER) (test yvjy=394) 7.9 GM/DL 13.7-17.5 HEMATOCRIT (BEAKER) (test fyrz=293) 23.7 % 40.1-51.0 MEAN CORPUSCULAR VOLUME (BEAKER) (test kuvb=543) 108.7 fL 79.0-92.2 MEAN CORPUSCULAR HEMOGLOBIN (BEAKER) (test 36.2 pg 25.7-32.2 lyvn=172) MEAN CORPUSCULAR HEMOGLOBIN CONC (BEAKER) (test 33.3 GM/DL 32.3-36.5 evio=689) RED CELL DISTRIBUTION WIDTH (BEAKER) (test 17.6 % 11.6-14.4 ddco=180) PLATELET COUNT (BEAKER) (test mwob=376) 66 K/CU MM 150-450 MEAN PLATELET VOLUME (BEAKER) (test pdkb=515) 10.3 fL 9.4-12.4 NUCLEATED RED BLOOD CELLS (BEAKER) (test 0 /100 WBC 0-0 rtem=620) NEUTROPHILS RELATIVE PERCENT (BEAKER) (test 89 % rrnk=673) LYMPHOCYTES RELATIVE PERCENT (BEAKER) (test 6 % wsys=065) MONOCYTES RELATIVE PERCENT (BEAKER) (test 5 % emjl=768) EOSINOPHILS RELATIVE PERCENT (BEAKER) (test 0 % mfre=943) BASOPHILS RELATIVE PERCENT (BEAKER) (test 0 % qzkh=555) NEUTROPHILS ABSOLUTE COUNT (BEAKER) (test 5.43 K/ L 1.78-5.38 ykgm=543) LYMPHOCYTES ABSOLUTE COUNT (BEAKER) (test 0.34 K/ L 1.32-3.57 hhph=423) MONOCYTES ABSOLUTE COUNT (BEAKER) (test qsez=648) 0.31 K/ L 0.30-0.82 EOSINOPHILS ABSOLUTE COUNT (BEAKER) (test 0.00 K/ L 0.04-0.54 ecww=776) BASOPHILS ABSOLUTE COUNT (BEAKER) (test jyfq=889) 0.01 K/ L 0.01-0.08 IMMATURE GRANULOCYTES-RELATIVE PERCENT (BEAKER) 1 % 0-1 (test pifx=5442) BLOOD GAS, [id number] 05:39:00 Test Item Value Reference Range Comments PH ARTERIAL (BEAKER) (test vzls=414) 7.50 7.35-7.45 PCO2 ARTERIAL (BEAKER) (test pohr=611) 32 mmHg 35-45 PO2 ARTERIAL (BEAKER) (test vvgt=677) 217 mmHg 80-90 O2 SATURATION ARTERIAL (BEAKER) (test rzoh=756) 99.5 % 96.0-97.0 HCO3 ARTERIAL (BEAKER) (test finh=354) 24 mmol/L 21-29 BASE EXCESS ARTERIAL (BEAKER) (test yhee=922) 1.2 mmol/L -2.0-3.0 PATIENT TEMPERATURE (BEAKER) (test owwk=1300) 36.4 C FIO2 (BEAKER) (test tdgi=0402) 50.0 % [id number] 02:39:00 Test Item Value Reference Range Comments PROTIME (BEAKER) (test oebh=418) 28.7 seconds 11.9-14.2 INR (BEAKER) (test vzbm=616) 2.9 <=5.9 PARTIAL THROMBOPLASTIN TIME (BEAKER) (test 52.7 seconds 22.5-36.0 qxfk=808) Effective 09/16/2018: PT Reference Range ChangeNew: 11.9-14.2 Previous: 11.7- 14.7RECOMMENDED COUMADIN/WARFARIN INR THERAPY RANGESSTANDARD DOSE: 2.0-3.0 Includes: PROPHYLAXIS for venous thrombosis, systemic embolization; TREATMENT for venous thrombosis and/or pulmonary embolus.HIGH RISK: Target INR is2.5-3.5 for patients wiht mechanical heart valves.[id number] 02:36:00 Test Item Value Reference Range Comments MAGNESIUM (BEAKER) (test 2.3 mg/dL 1.6-2.6 Specimen moderately hemolyzed hvuy=134) [id number] 02:36:00 Test Item Value Reference Range Comments PHOSPHORUS (BEAKER) (test 4.8 mg/dL 2.3-4.7 Specimen moderately hemolyzed otcu=911) BASIC METABOLIC [id number] 02:36:00 Test Item Value Reference Range Comments SODIUM (BEAKER) (test 133 meq/L 136-145 qzio=522) POTASSIUM (BEAKER) (test 5.1 meq/L 3.5-5.1 Specimen moderately izhy=171) hemolyzed CHLORIDE (BEAKER) (test 103 meq/L 98-107 airj=873) CO2 (BEAKER) (test 24 meq/L 22-29 jmce=095) BLOOD UREA NITROGEN 32 mg/dL 7-21 (BEAKER) (test ycbj=053) CREATININE (BEAKER) (test 1.32 mg/dL 0.57-1.25 Specimen moderately zlsa=297) hemolyzed GLUCOSE RANDOM (BEAKER) 115 mg/dL 70-105 (test asgz=128) CALCIUM (BEAKER) (test 8.2 mg/dL 8.4-10.2 buml=668) EGFR (BEAKER) (test 57 mL/min/1.73 sq m ESTIMATED GFR IS NOT sare=5750) ACCURATE CREATININE CLEARANCE IN PREDICTING GLOMERULAR FILTRATION RATE. ESTIMATED GFR IS NOT APPLICABLE FOR DIALYSIS PATIENTS. Specimen markedly ictericHEPATIC FUNCTION [id number] 02:36:00 Test Item Value Reference Range Comments TOTAL PROTEIN (BEAKER) (test 6.2 gm/dL 6.0-8.3 Specimen moderately jdjg=012) hemolyzed ALBUMIN (BEAKER) (test 2.3 g/dL 3.5-5.0 Specimen moderately mmpx=5029) hemolyzed BILIRUBIN TOTAL (BEAKER) (test 11.1 mg/dL 0.2-1.2 Specimen moderately ctny=376) hemolyzed BILIRUBIN DIRECT (BEAKER) 4.2 mg/dL 0.1-0.5 Specimen moderately (test muig=504) hemolyzed ALKALINE PHOSPHATASE (BEAKER) 198 U/L 40-150 (test pdtw=849) AST (SGOT) (BEAKER) (test 93 U/L 5-34 Specimen moderately jrxe=161) hemolyzed ALT (SGPT) (BEAKER) (test 46 U/L 6-55 Specimen moderately vnhl=314) hemolyzed Specimen markedly [id number] 02:26:00 Test Item Value Reference Range Comments AMMONIA (BEAKER) (test anhf=865) 62 mol/L 18-72 CBC W/PLT COUNT & AUTO [id number] 02:24:00 Test Item Value Reference Range Comments WHITE BLOOD CELL COUNT (BEAKER) (test hugq=947) 4.8 K/ L 3.5-10.5 RED BLOOD CELL COUNT (BEAKER) (test howv=892) 2.09 M/ L 4.63-6.08 HEMOGLOBIN (BEAKER) (test oezg=104) 7.5 GM/DL 13.7-17.5 HEMATOCRIT (BEAKER) (test yuqm=365) 22.4 % 40.1-51.0 MEAN CORPUSCULAR VOLUME (BEAKER) (test ylxd=274) 107.2 fL 79.0-92.2 MEAN CORPUSCULAR HEMOGLOBIN (BEAKER) (test 35.9 pg 25.7-32.2 lola=535) MEAN CORPUSCULAR HEMOGLOBIN CONC (BEAKER) (test 33.5 GM/DL 32.3-36.5 zyfo=643) RED CELL DISTRIBUTION WIDTH (BEAKER) (test 17.6 % 11.6-14.4 hdil=784) PLATELET COUNT (BEAKER) (test skuu=525) 54 K/CU MM 150-450 MEAN PLATELET VOLUME (BEAKER) (test eqqq=800) 9.8 fL 9.4-12.4 NUCLEATED RED BLOOD CELLS (BEAKER) (test 0 /100 WBC 0-0 ppgw=902) NEUTROPHILS RELATIVE PERCENT (BEAKER) (test 84 % owrm=882) LYMPHOCYTES RELATIVE PERCENT (BEAKER) (test 9 % whhn=256) MONOCYTES RELATIVE PERCENT (BEAKER) (test 6 % pkbp=870) EOSINOPHILS RELATIVE PERCENT (BEAKER) (test 0 % jyre=889) BASOPHILS RELATIVE PERCENT (BEAKER) (test 0 % hvrs=476) NEUTROPHILS ABSOLUTE COUNT (BEAKER) (test 3.99 K/ L 1.78-5.38 uqfw=630) LYMPHOCYTES ABSOLUTE COUNT (BEAKER) (test 0.44 K/ L 1.32-3.57 iyyg=823) MONOCYTES ABSOLUTE COUNT (BEAKER) (test kmvg=662) 0.28 K/ L 0.30-0.82 EOSINOPHILS ABSOLUTE COUNT (BEAKER) (test 0.01 K/ L 0.04-0.54 fvaf=791) BASOPHILS ABSOLUTE COUNT (BEAKER) (test kvwd=710) 0.01 K/ L 0.01-0.08 IMMATURE GRANULOCYTES-RELATIVE PERCENT (BEAKER) 0 % 0-1 (test anrw=5178) POCT-GLUCOSE [id number] 00:08:00 Test Item Value Reference Range Comments POC-GLUCOSE METER (BEAKER) 108 mg/dL 70-110 : TESTED AT [facility] [id number] [facility] (test cypl=1068) [facility], [id number]: [employer]/Inspector And Clerk VE=[id number] for FRANCO BOWDEN [id number] 23:24:00 Test Item Value Reference Range Comments PHOSPHORUS (BEAKER) (test gvej=982) 4.5 mg/dL 2.3-4.7 [id number] 23:24:00 Test Item Value Reference Range Comments MAGNESIUM (BEAKER) (test wbnm=059) 2.3 mg/dL 1.6-2.6 BASIC METABOLIC [id number] 23:24:00 Test Item Value Reference Range Comments SODIUM (BEAKER) (test 134 meq/L 136-145 qmlr=033) POTASSIUM (BEAKER) (test 4.8 meq/L 3.5-5.1 vnvw=170) CHLORIDE (BEAKER) (test 104 meq/L 98-107 vcfe=576) CO2 (BEAKER) (test 23 meq/L 22-29 yiwf=352) BLOOD UREA NITROGEN 30 mg/dL 7-21 (BEAKER) (test kvrg=358) CREATININE (BEAKER) (test 1.35 mg/dL 0.57-1.25 avkb=532) GLUCOSE RANDOM (BEAKER) 106 mg/dL 70-105 (test gkyj=260) CALCIUM (BEAKER) (test 8.5 mg/dL 8.4-10.2 iddb=007) EGFR (BEAKER) (test 55 mL/min/1.73 sq m ESTIMATED GFR IS NOT rigy=6362) ACCURATE CREATININE CLEARANCE IN PREDICTING GLOMERULAR FILTRATION RATE. ESTIMATED GFR IS NOT APPLICABLE FOR DIALYSIS PATIENTS. Specimen markedly ictericPT/[id number] 23:12:00 Test Item Value Reference Range Comments PROTIME (BEAKER) (test jego=650) 26.1 seconds 11.9-14.2 INR (BEAKER) (test mrtt=886) 2.6 <=5.9 PARTIAL THROMBOPLASTIN TIME (BEAKER) (test 49.6 seconds 22.5-36.0 knji=417) Effective 09/16/2018: PT Reference Range ChangeNew: 11.9-14.2 Previous: 11.7- 14.7RECOMMENDED COUMADIN/WARFARIN INR THERAPY RANGESSTANDARD DOSE: 2.0-3.0 Includes: PROPHYLAXIS for venous thrombosis, systemic embolization; TREATMENT for venous thrombosis and/or pulmonary embolus.HIGH RISK: Target INR is2.5-3.5 for patients wiht mechanical heart valves.CBC W/PLT COUNT & AUTO [id number] 23:10:00 Test Item Value Reference Range Comments WHITE BLOOD CELL COUNT (BEAKER) (test fjft=685) 4.6 K/ L 3.5-10.5 RED BLOOD CELL COUNT (BEAKER) (test kayp=177) 2.38 M/ L 4.63-6.08 HEMOGLOBIN (BEAKER) (test wvyi=706) 8.6 GM/DL 13.7-17.5 HEMATOCRIT (BEAKER) (test zdud=172) 25.7 % 40.1-51.0 MEAN CORPUSCULAR VOLUME (BEAKER) (test cfgw=287) 108.0 fL 79.0-92.2 MEAN CORPUSCULAR HEMOGLOBIN (BEAKER) (test 36.1 pg 25.7-32.2 cunk=249) MEAN CORPUSCULAR HEMOGLOBIN CONC (BEAKER) (test 33.5 GM/DL 32.3-36.5 aypp=930) RED CELL DISTRIBUTION WIDTH (BEAKER) (test 17.5 % 11.6-14.4 vqdh=545) PLATELET COUNT (BEAKER) (test auhb=997) 60 K/CU MM 150-450 MEAN PLATELET VOLUME (BEAKER) (test zqsf=625) 10.3 fL 9.4-12.4 NUCLEATED RED BLOOD CELLS (BEAKER) (test 0 /100 WBC 0-0 qzms=215) NEUTROPHILS RELATIVE PERCENT (BEAKER) (test 84 % kwuo=141) LYMPHOCYTES RELATIVE PERCENT (BEAKER) (test 11 % kthx=207) MONOCYTES RELATIVE PERCENT (BEAKER) (test 4 % rqcn=949) EOSINOPHILS RELATIVE PERCENT (BEAKER) (test 1 % mjbe=136) BASOPHILS RELATIVE PERCENT (BEAKER) (test 0 % tnwx=496) NEUTROPHILS ABSOLUTE COUNT (BEAKER) (test 3.87 K/ L 1.78-5.38 oqoi=958) LYMPHOCYTES ABSOLUTE COUNT (BEAKER) (test 0.49 K/ L 1.32-3.57 wnqd=115) MONOCYTES ABSOLUTE COUNT (BEAKER) (test cohz=769) 0.20 K/ L 0.30-0.82 EOSINOPHILS ABSOLUTE COUNT (BEAKER) (test 0.03 K/ L 0.04-0.54 zqsv=902) BASOPHILS ABSOLUTE COUNT (BEAKER) (test wgjo=441) 0.02 K/ L 0.01-0.08 IMMATURE GRANULOCYTES-RELATIVE PERCENT (BEAKER) 0 % 0-1 (test fvcb=1712) VITAMIN B12 AND [id number] 22:00:00 Test Item Value Reference Range Comments VITAMIN B12 (BEAKER) (test nqmc=026) > pg/mL 213-816 FOLATE (BEAKER) (test duvw=298) > ng/mL >=7.0 HGB/HCT (H&H) - STAT [id number] 20:14:00 Test Item Value Reference Range Comments HEMOGLOBIN (BEAKER) (test edzg=669) 8.5 GM/DL 13.0-16.8 HEMATOCRIT (BEAKER) (test izzl=117) 25.0 % 40.0-50.0 [id number] 20:02:00 Test Item Value Reference Range Comments MAGNESIUM (BEAKER) (test 2.4 mg/dL 1.6-2.6 Specimen slightly hemolyzed mynz=300) BLOOD GAS, [id number] 19:53:00 Test Item Value Reference Range Comments PH ARTERIAL (BEAKER) (test nieb=863) 7.54 7.35-7.45 PCO2 ARTERIAL (BEAKER) (test gwba=543) 30 mmHg 35-45 PO2 ARTERIAL (BEAKER) (test dlhd=820) 146 mmHg 80-90 O2 SATURATION ARTERIAL (BEAKER) (test cspx=294) 99.1 % 96.0-97.0 HCO3 ARTERIAL (BEAKER) (test imxl=860) 25 mmol/L 21-29 BASE EXCESS ARTERIAL (BEAKER) (test ldyq=356) 2.9 mmol/L -2.0-3.0 PATIENT TEMPERATURE (BEAKER) (test jxac=3523) 37.0 C LEGIONELLA ANTIGEN, [id number] 18:42:00 Test Item Value Reference Range Comments L. PNEUMOPHILA SEROGP 1 Negative - see Negative for L. UR AG (BEAKER) (test comment pneumophila serogroup 1 gdbh=0594) antigen, suggesting no recent or current infection with this serogroup. Legionellosis cannot be ruled out since other serogroups and species may cause disease. STREP PNEUMONIAE [id number] 18:40:00 Test Item Value Reference Range Comments STREP PNEUMONIAE ANTIGEN Presumptive negative for Presumptive negative for (BEAKER) (test pneumococcal pneumonia - pneumococcal pneumonia - zbvo=2682) see comment see commen Presumptive negative for pneumococcal pneumonia, suggesting no current or recent pneumococcal infection. Infection due to S. pneumoniae cannot be ruled out since the antigen present in the sample may be below the detection limit of the test.RAPID DRUG SCREEN, [id number] 18:28:00 Test Item Value Reference Range Comments BARBITURATE URINE (BEAKER) (test herh=305) Negative Negative BENZODIAZEPINE SCREEN URINE (BEAKER) (test Negative Negative zjyb=497) COCAINE (METAB.) SCREEN (BEAKER) (test bphu=9582) Negative Negative METHADONE SCREEN (BEAKER) (test gome=4692) Negative Negative OPIATE SCREEN URINE (BEAKER) (test rfcb=647) Negative Negative CANNABINOID SCREEN URINE (BEAKER) (test yvcw=671) Negative Negative AMPH/METHAMPH SCREEN (BEAKER) (test bxjk=4616) Negative Negative PHENCYCLIDINE SCREEN URINE (BEAKER) (test jxuy=780) Negative Negative DRUG CUTOFF CONC.Cocaine 300 ng/mL Cannabinoid 50 ng/mLBenzodiazepine 200 ng/mLBarbiturate 200 ng/ mLPhencyclidine 25 ng/mLOpiate 300 ng/mLMethadone 300 ng/mLAmphetamine/ 1000 ng/mL MethamphetamineThis assay provides an unconfirmed qualitative test result for the clinical management of patients in emergency situations. Chain of custody not maintained. Some gbcu-oam-txkypqu medications, as well as adulterants, may cause inaccurate results. Clinical correlation should be applied. A more comprehensivedrug screen or confirmation of a detected drug may be performed upon request.SODIUM, RANDOM [id number] 18:28:00 Test Item Value Reference Range Comments SODIUM URINE (BEAKER) (test hjxc=456) < meq/L Reference Range: No NormalsCREATININE, RANDOM [id number] 18:12:00 Test Item Value Reference Range Comments CREATININE URINE (BEAKER) (test idax=663) 74.6 mg/dL Reference Range: No NormalsUREA NITROGEN, RANDOM [id number] 18:12:00 Test Item Value Reference Range Comments UREA NITROGEN URINE (BEAKER) (test acvo=542) 514 mg/dL Reference Range: No [id number] 17:10:00 Test Item Value Reference Range Comments MAGNESIUM (BEAKER) (test 2.5 mg/dL 1.6-2.6 Specimen slightly hemolyzed pomt=445) [id number] 17:10:00 Test Item Value Reference Range Comments PHOSPHORUS (BEAKER) (test 4.1 mg/dL 2.3-4.7 Specimen slightly hemolyzed xopq=638) PROTEIN, [id number] 17:10:00 Test Item Value Reference Range Comments TOTAL PROTEIN (BEAKER) (test 7.7 gm/dL 6.0-8.3 Specimen slightly hemolyzed vfqo=502) [id number] 17:10:00 Test Item Value Reference Range Comments ALBUMIN (BEAKER) (test 2.3 g/dL 3.5-5.0 Specimen slightly hemolyzed ypso=0718) BILIRUBIN, [id number] 17:10:00 Test Item Value Reference Range Comments BILIRUBIN DIRECT (BEAKER) (test 5.6 mg/dL 0.1-0.5 Specimen slightly hemolyzed mmwn=366) CREATINE KINASE (CK)2019-03-30 17:10:00 Test Item Value Reference Range Comments CREATINE KINASE TOTAL (BEAKER) (test sjaj=830) 353 U/L 29-200 LACTIC ACID, [id number] 17:05:00 Test Item Value Reference Range Comments LACTATE BLOOD VENOUS (2) 1.7 mmol/L 0.5-2.2 Specimen slightly hemolyzed (BEAKER) (test xhof=3783) Specimen moderately [id number] 16:53:00 Test Item Value Reference Range Comments FIBRINOGEN LEVEL (BEAKER) (test jiqj=447) 177 mg/dl 225-434 CBC (HEMOGRAM ONLY)2019-03-30 16:49:00 Test Item Value Reference Range Comments WHITE BLOOD CELL COUNT (BEAKER) (test bquo=168) 5.5 K/ L 3.5-10.5 RED BLOOD CELL COUNT (BEAKER) (test mvzg=777) 2.67 M/ L 4.63-6.08 HEMOGLOBIN (BEAKER) (test beaf=690) 9.6 GM/DL 13.7-17.5 HEMATOCRIT (BEAKER) (test pgud=120) 29.1 % 40.1-51.0 MEAN CORPUSCULAR VOLUME (BEAKER) (test txcg=175) 109.0 fL 79.0-92.2 MEAN CORPUSCULAR HEMOGLOBIN (BEAKER) (test 36.0 pg 25.7-32.2 vakj=430) MEAN CORPUSCULAR HEMOGLOBIN CONC (BEAKER) (test 33.0 GM/DL 32.3-36.5 hyuy=763) RED CELL DISTRIBUTION WIDTH (BEAKER) (test 17.9 % 11.6-14.4 aujr=772) PLATELET COUNT (BEAKER) (test dhut=602) 80 K/CU MM 150-450 MEAN PLATELET VOLUME (BEAKER) (test witj=494) 10.3 fL 9.4-12.4 NUCLEATED RED BLOOD CELLS (BEAKER) (test 0 /100 WBC 0-0 fnpc=062) TROPONIN [id number] 15:58:00 Test Item Value Reference Range Comments TROPONIN I (BEAKER) (test rejl=817) 0.01 ng/mL 0.00-0.03 Troponin I (TnI) levels must be interpreted in the context of the presenting symptoms and the clinical findings. Elevated TnI levels indicate myocardial damage, but are not specific for ischemic heart disease. Elevated TnI levels are seen in patients with other cardiac conditions (including myocarditis and congestive heart failure), and slight TnI elevations occur in patients with other conditions, including sepsis, renal failure, acidosis, acute neurological disease, and persistent tachyarrhythmia.ALKALINE [id number] 15:52:00 Test Item Value Reference Range Comments ALKALINE PHOSPHATASE (BEAKER) (test nkyo=483) 296 U/L 40-150 BILIRUBIN, ADULT [id number] 15:52:00 Test Item Value Reference Range Comments BILIRUBIN TOTAL (BEAKER) (test qcts=369) 11.1 mg/dL 0.2-1.2 BASIC METABOLIC [id number] 15:52:00 Test Item Value Reference Range Comments SODIUM (BEAKER) (test 134 meq/L 136-145 etyv=136) POTASSIUM (BEAKER) (test 4.4 meq/L 3.5-5.1 nvfi=585) CHLORIDE (BEAKER) (test 101 meq/L 98-107 ncue=363) CO2 (BEAKER) (test 29 meq/L 22-29 gahq=773) BLOOD UREA NITROGEN 32 mg/dL 7-21 (BEAKER) (test iono=541) CREATININE (BEAKER) (test 1.50 mg/dL 0.57-1.25 fipf=625) GLUCOSE RANDOM (BEAKER) 92 mg/dL 70-105 (test anbl=851) CALCIUM (BEAKER) (test 8.7 mg/dL 8.4-10.2 woej=211) EGFR (BEAKER) (test 49 mL/min/1.73 sq m ESTIMATED GFR IS NOT gyym=9805) ACCURATE CREATININE CLEARANCE IN PREDICTING GLOMERULAR FILTRATION RATE. ESTIMATED GFR IS NOT APPLICABLE FOR DIALYSIS PATIENTS. Specimen markedly ictericALT (SGPT)2019-03-30 15:52:00 Test Item Value Reference Range Comments ALT (SGPT) (BEAKER) (test wvml=107) 66 U/L 6-55 Specimen markedly ictericAST (SGOT)2019-03-30 15:52:00 Test Item Value Reference Range Comments AST (SGOT) (BEAKER) (test ijuy=159) 116 U/L 5-34 [id number] 15:49:00 Test Item Value Reference Range Comments ETHANOL (BEAKER) (test jzrl=793) < mg/dL <=10 [id number] 15:44:00 Test Item Value Reference Range Comments AMMONIA (BEAKER) (test zgtp=009) 153 mol/L 18-72 CBC W/PLT COUNT & AUTO [id number] 15:35:00 Test Item Value Reference Range Comments WHITE BLOOD CELL COUNT (BEAKER) (test nazb=960) 5.4 K/ L 3.5-10.5 RED BLOOD CELL COUNT (BEAKER) (test rgef=199) 2.63 M/ L 4.63-6.08 HEMOGLOBIN (BEAKER) (test ldug=140) 9.5 GM/DL 13.7-17.5 HEMATOCRIT (BEAKER) (test ykbd=970) 28.5 % 40.1-51.0 MEAN CORPUSCULAR VOLUME (BEAKER) (test ekml=831) 108.4 fL 79.0-92.2 MEAN CORPUSCULAR HEMOGLOBIN (BEAKER) (test 36.1 pg 25.7-32.2 vvtp=318) MEAN CORPUSCULAR HEMOGLOBIN CONC (BEAKER) (test 33.3 GM/DL 32.3-36.5 joql=429) RED CELL DISTRIBUTION WIDTH (BEAKER) (test 17.6 % 11.6-14.4 dcoa=223) PLATELET COUNT (BEAKER) (test hsyy=725) 69 K/CU MM 150-450 MEAN PLATELET VOLUME (BEAKER) (test oqpg=998) 10.4 fL 9.4-12.4 NUCLEATED RED BLOOD CELLS (BEAKER) (test 0 /100 WBC 0-0 opcd=228) NEUTROPHILS RELATIVE PERCENT (BEAKER) (test 69 % qdqm=060) LYMPHOCYTES RELATIVE PERCENT (BEAKER) (test 15 % llnb=722) MONOCYTES RELATIVE PERCENT (BEAKER) (test 10 % urwe=648) EOSINOPHILS RELATIVE PERCENT (BEAKER) (test 5 % hlav=334) BASOPHILS RELATIVE PERCENT (BEAKER) (test 1 % yghi=239) NEUTROPHILS ABSOLUTE COUNT (BEAKER) (test 3.73 K/ L 1.78-5.38 jtef=485) LYMPHOCYTES ABSOLUTE COUNT (BEAKER) (test 0.81 K/ L 1.32-3.57 ojiz=493) MONOCYTES ABSOLUTE COUNT (BEAKER) (test rwgv=989) 0.52 K/ L 0.30-0.82 EOSINOPHILS ABSOLUTE COUNT (BEAKER) (test 0.26 K/ L 0.04-0.54 btlv=343) BASOPHILS ABSOLUTE COUNT (BEAKER) (test ljzi=888) 0.04 K/ L 0.01-0.08 IMMATURE GRANULOCYTES-RELATIVE PERCENT (BEAKER) 0 % 0-1 (test kptq=4756) RAD, CHEST, 1 VIEW, NON [id number] 14:56:00Reason for exam:->CHEST PAINShould this be performed at the bedside?->YesFINAL REPORT TECHNIQUE: Frontal chest radiograph dated 03/30/2019. CLINICAL HISTORY : Chest pain COMPARISON STUDY: Chest radiograph dated 03/23/2019 IMPRESSION: Endotracheal tube is 3.1 cm above the joey. There is left lung base atelectasis. There is fullness of the central pulmonary vasculature as well as vague airspace opacities concerning for pulmonary edema. No pleural effusion or pneumothorax. Cardiomediastinal silhouette is stable in size. Degenerative changes are seen in the spine. No fracture. Signed: Trudy Camacho Verified Date/Time: 03/30/2019 14:56:30 Reading Location: [facility] Reading Room 02: 56 PMCT, BRAIN, WITHOUT [id number] 14:13:00Reason for exam:->altered mental statusWhat is the patient's sedation requirement?->No SedationFINAL REPORT CT, BRAIN, WITHOUT CONTRAST CLINICAL INDICATION: Altered mentalstatusaltered mental status COMPARISON: December 12, 2018 TECHNIQUE : Noncontrast axial CT imaging of the brain and skull. DOSE REDUCTION: Dose modulation, iterative reconstruction, and/or weight-based adjustment of the mA/ kV was utilized to reduce the radiation dose to as low as reasonably achievable.FINDINGS:No intracranial hemorrhage, midline shift or mass effect. Midline structures are normally developed. Mild chronic microvascular ischemic changes of the periventricular and subcortical white matter are present. No hydrocephalus. Orbits are within normal limits. No obstructive paranasal sinus disease. IMPRESSION: No acute intracranial findings If there is persistent clinical concern for intracranial pathology, MR examination is recommended for further characterization. Signed: Lucrecia Micheleort Verified Date/Time: 03/30/2019 14:13:23 Reading Location: [facility] Radiology ReadingRoom [facility] [id number] 06:15:00 Test Item Value Reference Range Comments SODIUM (BEAKER) (test 127 meq/L 136-145 eeva=824) POTASSIUM (BEAKER) (test 3.8 meq/L 3.5-5.1 aymc=443) CHLORIDE (BEAKER) (test 95 meq/L 98-107 bzjd=589) CO2 (BEAKER) (test 29 meq/L 22-29 nype=076) BLOOD UREA NITROGEN 14 mg/dL 7-21 (BEAKER) (test vgxp=059) CREATININE (BEAKER) (test 0.72 mg/dL 0.57-1.25 gqug=633) GLUCOSE RANDOM (BEAKER) 90 mg/dL 70-105 (test fuqy=508) CALCIUM (BEAKER) (test 7.5 mg/dL 8.4-10.2 xvgi=244) EGFR (BEAKER) (test 114 mL/min/1.73 sq m ESTIMATED GFR IS NOT lljt=1589) ACCURATE CREATININE CLEARANCE IN PREDICTING GLOMERULAR FILTRATION RATE. ESTIMATED GFR IS NOT APPLICABLE FOR DIALYSIS PATIENTS. Specimen moderately ictericHEPATIC FUNCTION [id number] 06:08:00 Test Item Value Reference Range Comments TOTAL PROTEIN (BEAKER) (test xjzu=788) 6.0 gm/dL 6.0-8.3 ALBUMIN (BEAKER) (test wdbu=3912) 1.8 g/dL 3.5-5.0 BILIRUBIN TOTAL (BEAKER) (test zzot=654) 7.9 mg/dL 0.2-1.2 BILIRUBIN DIRECT (BEAKER) (test pitx=322) 4.2 mg/dL 0.1-0.5 ALKALINE PHOSPHATASE (BEAKER) (test xnuo=672) 246 U/L 40-150 AST (SGOT) (BEAKER) (test ikel=599) 122 U/L 5-34 ALT (SGPT) (BEAKER) (test hiha=360) 60 U/L 6-55 Specimen moderately [id number] 05:22:00 Test Item Value Reference Range Comments MAGNESIUM (BEAKER) (test ozmb=725) 1.9 mg/dL 1.6-2.6 PROTHROMBIN [id number] 05:17:00 Test Item Value Reference Range Comments PROTIME (BEAKER) (test iwru=440) 26.7 seconds 11.9-14.2 INR (BEAKER) (test texm=696) 2.6 <=5.9 Effective 09/16/2018: PT Reference Range ChangeNew: 11.9-14.2 Previous: 11.7- 14.7RECOMMENDED COUMADIN/WARFARIN INR THERAPY RANGESSTANDARD DOSE: 2.0-3.0 Includes: PROPHYLAXIS for venous thrombosis, systemic embolization; TREATMENT for venous thrombosis and/or pulmonary embolus.HIGH RISK: Target INR is2.5-3.5 for patients wiht mechanical heart valves.CBC W/PLT COUNT & AUTO [id number] 05:05:00 Test Item Value Reference Range Comments WHITE BLOOD CELL COUNT (BEAKER) (test udwp=841) 5.3 K/ L 3.5-10.5 RED BLOOD CELL COUNT (BEAKER) (test txro=775) 2.18 M/ L 4.63-6.08 HEMOGLOBIN (BEAKER) (test uvjy=552) 7.9 GM/DL 13.7-17.5 HEMATOCRIT (BEAKER) (test vmke=094) 23.3 % 40.1-51.0 MEAN CORPUSCULAR VOLUME (BEAKER) (test narl=060) 106.9 fL 79.0-92.2 MEAN CORPUSCULAR HEMOGLOBIN (BEAKER) (test 36.2 pg 25.7-32.2 iwnt=315) MEAN CORPUSCULAR HEMOGLOBIN CONC (BEAKER) (test 33.9 GM/DL 32.3-36.5 jtij=854) RED CELL DISTRIBUTION WIDTH (BEAKER) (test 18.6 % 11.6-14.4 qfso=449) PLATELET COUNT (BEAKER) (test vwtg=151) 55 K/CU MM 150-450 MEAN PLATELET VOLUME (BEAKER) (test fwtz=370) 9.4 fL 9.4-12.4 NUCLEATED RED BLOOD CELLS (BEAKER) (test 0 /100 WBC 0-0 rhwf=492) NEUTROPHILS RELATIVE PERCENT (BEAKER) (test 65 % hdvc=483) LYMPHOCYTES RELATIVE PERCENT (BEAKER) (test 17 % sbuz=299) MONOCYTES RELATIVE PERCENT (BEAKER) (test 11 % toub=643) EOSINOPHILS RELATIVE PERCENT (BEAKER) (test 5 % wgfn=331) BASOPHILS RELATIVE PERCENT (BEAKER) (test 0 % uvtw=425) NEUTROPHILS ABSOLUTE COUNT (BEAKER) (test 3.49 K/ L 1.78-5.38 hhww=774) LYMPHOCYTES ABSOLUTE COUNT (BEAKER) (test 0.89 K/ L 1.32-3.57 hcax=864) MONOCYTES ABSOLUTE COUNT (BEAKER) (test oljf=395) 0.61 K/ L 0.30-0.82 EOSINOPHILS ABSOLUTE COUNT (BEAKER) (test 0.29 K/ L 0.04-0.54 tuoo=707) BASOPHILS ABSOLUTE COUNT (BEAKER) (test njjm=221) 0.02 K/ L 0.01-0.08 IMMATURE GRANULOCYTES-RELATIVE PERCENT (BEAKER) 1 % 0-1 (test piib=9395) HEPATIC FUNCTION [id number] 05:12:00 Test Item Value Reference Range Comments TOTAL PROTEIN (BEAKER) (test vixs=532) 6.0 gm/dL 6.0-8.3 ALBUMIN (BEAKER) (test dvka=4117) 1.8 g/dL 3.5-5.0 BILIRUBIN TOTAL (BEAKER) (test pehm=501) 8.1 mg/dL 0.2-1.2 BILIRUBIN DIRECT (BEAKER) (test fzgs=956) 4.3 mg/dL 0.1-0.5 ALKALINE PHOSPHATASE (BEAKER) (test gqmt=326) 258 U/L 40-150 AST (SGOT) (BEAKER) (test ouio=437) 115 U/L 5-34 ALT (SGPT) (BEAKER) (test ixxk=362) 58 U/L 6-55 Specimen moderately ictericBASIC METABOLIC [id number] 05:11:00 Test Item Value Reference Range Comments SODIUM (BEAKER) (test 125 meq/L 136-145 ucjo=191) POTASSIUM (BEAKER) (test 3.8 meq/L 3.5-5.1 kylb=319) CHLORIDE (BEAKER) (test 93 meq/L 98-107 zgnw=564) CO2 (BEAKER) (test 27 meq/L 22-29 yuml=460) BLOOD UREA NITROGEN 17 mg/dL 7-21 (BEAKER) (test ukve=521) CREATININE (BEAKER) (test 0.79 mg/dL 0.57-1.25 vcpx=304) GLUCOSE RANDOM (BEAKER) 88 mg/dL 70-105 (test eaar=469) CALCIUM (BEAKER) (test 7.2 mg/dL 8.4-10.2 txac=877) EGFR (BEAKER) (test 103 mL/min/1.73 sq m ESTIMATED GFR IS NOT ryms=0568) ACCURATE CREATININE CLEARANCE IN PREDICTING GLOMERULAR FILTRATION RATE. ESTIMATED GFR IS NOT APPLICABLE FOR DIALYSIS PATIENTS. Specimen moderately [id number] 05:08:00 Test Item Value Reference Range Comments MAGNESIUM (BEAKER) (test rkny=816) 1.8 mg/dL 1.6-2.6 CBC W/PLT COUNT & AUTO [id number] 05:05:00 Test Item Value Reference Range Comments WHITE BLOOD CELL COUNT (BEAKER) (test fwdq=678) 5.9 K/ L 3.5-10.5 RED BLOOD CELL COUNT (BEAKER) (test hacj=598) 2.16 M/ L 4.63-6.08 HEMOGLOBIN (BEAKER) (test utua=630) 7.7 GM/DL 13.7-17.5 HEMATOCRIT (BEAKER) (test vows=575) 23.1 % 40.1-51.0 MEAN CORPUSCULAR VOLUME (BEAKER) (test rptl=835) 106.9 fL 79.0-92.2 MEAN CORPUSCULAR HEMOGLOBIN (BEAKER) (test 35.6 pg 25.7-32.2 yzia=298) MEAN CORPUSCULAR HEMOGLOBIN CONC (BEAKER) (test 33.3 GM/DL 32.3-36.5 qwvd=624) RED CELL DISTRIBUTION WIDTH (BEAKER) (test 18.5 % 11.6-14.4 tuez=735) PLATELET COUNT (BEAKER) (test buev=399) 60 K/CU MM 150-450 MEAN PLATELET VOLUME (BEAKER) (test qcpd=849) 10.5 fL 9.4-12.4 NUCLEATED RED BLOOD CELLS (BEAKER) (test 0 /100 WBC 0-0 zcsb=858) NEUTROPHILS RELATIVE PERCENT (BEAKER) (test 65 % noxp=357) LYMPHOCYTES RELATIVE PERCENT (BEAKER) (test 17 % srvz=708) MONOCYTES RELATIVE PERCENT (BEAKER) (test 12 % unnc=711) EOSINOPHILS RELATIVE PERCENT (BEAKER) (test 5 % kzxu=862) BASOPHILS RELATIVE PERCENT (BEAKER) (test 1 % zcvw=630) NEUTROPHILS ABSOLUTE COUNT (BEAKER) (test 3.80 K/ L 1.78-5.38 ingo=625) LYMPHOCYTES ABSOLUTE COUNT (BEAKER) (test 0.98 K/ L 1.32-3.57 lxmc=405) MONOCYTES ABSOLUTE COUNT (BEAKER) (test rrhj=355) 0.70 K/ L 0.30-0.82 EOSINOPHILS ABSOLUTE COUNT (BEAKER) (test 0.30 K/ L 0.04-0.54 simf=795) BASOPHILS ABSOLUTE COUNT (BEAKER) (test diyb=531) 0.03 K/ L 0.01-0.08 IMMATURE GRANULOCYTES-RELATIVE PERCENT (BEAKER) 1 % 0-1 (test mbid=5463) PROTHROMBIN [id number] 04:56:00 Test Item Value Reference Range Comments PROTIME (BEAKER) (test szoj=428) 26.5 seconds 11.9-14.2 INR (BEAKER) (test uqry=126) 2.6 <=5.9 Effective 09/16/2018: PT Reference Range ChangeNew: 11.9-14.2 Previous: 11.7- 14.7RECOMMENDED COUMADIN/WARFARIN INR THERAPY RANGESSTANDARD DOSE: 2.0-3.0 Includes: PROPHYLAXIS for venous thrombosis, systemic embolization; TREATMENT for venous thrombosis and/or pulmonary embolus.HIGH RISK: Target INR is2.5-3.5 for patients wiht mechanical heart valves.HEPATIC FUNCTION [id number] 04:58 :00 Test Item Value Reference Range Comments TOTAL PROTEIN (BEAKER) (test yskn=430) 5.7 gm/dL 6.0-8.3 ALBUMIN (BEAKER) (test sarv=4011) 1.7 g/dL 3.5-5.0 BILIRUBIN TOTAL (BEAKER) (test jprv=583) 7.4 mg/dL 0.2-1.2 BILIRUBIN DIRECT (BEAKER) (test hnqs=435) 4.3 mg/dL 0.1-0.5 ALKALINE PHOSPHATASE (BEAKER) (test pptp=389) 271 U/L 40-150 AST (SGOT) (BEAKER) (test zhxf=079) 111 U/L 5-34 ALT (SGPT) (BEAKER) (test lssr=998) 52 U/L 6-55 Specimen moderately ictericBASIC METABOLIC [id number] 04:58:00 Test Item Value Reference Range Comments SODIUM (BEAKER) (test 126 meq/L 136-145 fpdk=503) POTASSIUM (BEAKER) (test 3.7 meq/L 3.5-5.1 uzmt=609) CHLORIDE (BEAKER) (test 96 meq/L 98-107 stva=260) CO2 (BEAKER) (test 27 meq/L 22-29 dyhs=013) BLOOD UREA NITROGEN 17 mg/dL 7-21 (BEAKER) (test xspq=894) CREATININE (BEAKER) (test 0.75 mg/dL 0.57-1.25 svbc=521) GLUCOSE RANDOM (BEAKER) 82 mg/dL 70-105 (test nwam=332) CALCIUM (BEAKER) (test 7.1 mg/dL 8.4-10.2 vvue=674) EGFR (BEAKER) (test 109 mL/min/1.73 sq m ESTIMATED GFR IS NOT zzfa=2465) ACCURATE CREATININE CLEARANCE IN PREDICTING GLOMERULAR FILTRATION RATE. ESTIMATED GFR IS NOT APPLICABLE FOR DIALYSIS PATIENTS. Specimen moderately [id number] 04:57:00 Test Item Value Reference Range Comments MAGNESIUM (BEAKER) (test aoyg=414) 1.9 mg/dL 1.6-2.6 CBC W/PLT COUNT & AUTO [id number] 04:57:00 Test Item Value Reference Range Comments WHITE BLOOD CELL COUNT (BEAKER) (test lold=703) 6.1 K/ L 3.5-10.5 RED BLOOD CELL COUNT (BEAKER) (test uhpa=803) 1.81 M/ L 4.63-6.08 HEMOGLOBIN (BEAKER) (test cqdu=728) 6.8 GM/DL 13.7-17.5 HEMATOCRIT (BEAKER) (test xptx=136) 20.2 % 40.1-51.0 MEAN CORPUSCULAR VOLUME (BEAKER) (test zeve=850) 111.6 fL 79.0-92.2 MEAN CORPUSCULAR HEMOGLOBIN (BEAKER) (test 37.6 pg 25.7-32.2 btsq=914) MEAN CORPUSCULAR HEMOGLOBIN CONC (BEAKER) (test 33.7 GM/DL 32.3-36.5 euoj=589) RED CELL DISTRIBUTION WIDTH (BEAKER) (test 15.4 % 11.6-14.4 ggfk=430) PLATELET COUNT (BEAKER) (test dkrb=003) 55 K/CU MM 150-450 MEAN PLATELET VOLUME (BEAKER) (test caia=888) 9.5 fL 9.4-12.4 NUCLEATED RED BLOOD CELLS (BEAKER) (test 0 /100 WBC 0-0 szaa=584) NEUTROPHILS RELATIVE PERCENT (BEAKER) (test 64 % pzwi=300) LYMPHOCYTES RELATIVE PERCENT (BEAKER) (test 18 % jyzl=754) MONOCYTES RELATIVE PERCENT (BEAKER) (test 11 % uwzp=594) EOSINOPHILS RELATIVE PERCENT (BEAKER) (test 6 % axon=014) BASOPHILS RELATIVE PERCENT (BEAKER) (test 1 % gzay=385) NEUTROPHILS ABSOLUTE COUNT (BEAKER) (test 3.88 K/ L 1.78-5.38 whzl=757) LYMPHOCYTES ABSOLUTE COUNT (BEAKER) (test 1.09 K/ L 1.32-3.57 ryxm=258) MONOCYTES ABSOLUTE COUNT (BEAKER) (test lyng=362) 0.64 K/ L 0.30-0.82 EOSINOPHILS ABSOLUTE COUNT (BEAKER) (test 0.39 K/ L 0.04-0.54 nrzs=370) BASOPHILS ABSOLUTE COUNT (BEAKER) (test ibzg=699) 0.03 K/ L 0.01-0.08 IMMATURE GRANULOCYTES-RELATIVE PERCENT (BEAKER) 1 % 0-1 (test uepa=1448) PROTHROMBIN [id number] 04:47:00 Test Item Value Reference Range Comments PROTIME (BEAKER) (test jbui=660) 26.5 seconds 11.9-14.2 INR (BEAKER) (test xhvj=625) 2.6 <=5.9 Effective 09/16/2018: PT Reference Range ChangeNew: 11.9-14.2 Previous: 11.7- 14.7RECOMMENDED COUMADIN/WARFARIN INR THERAPY RANGESSTANDARD DOSE: 2.0-3.0 Includes: PROPHYLAXIS for venous thrombosis, systemic embolization; TREATMENT for venous thrombosis and/or pulmonary embolus.HIGH RISK: Target INR is2.5-3.5 for patients wiht mechanical heart valves.CBC W/PLT COUNT & AUTO [id number] 06:36:00 Test Item Value Reference Range Comments WHITE BLOOD CELL COUNT (BEAKER) (test zilj=669) 6.1 K/ L 3.5-10.5 RED BLOOD CELL COUNT (BEAKER) (test onkk=308) 2.04 M/ L 4.63-6.08 HEMOGLOBIN (BEAKER) (test ahjx=928) 7.5 GM/DL 13.7-17.5 HEMATOCRIT (BEAKER) (test luof=966) 22.7 % 40.1-51.0 MEAN CORPUSCULAR VOLUME (BEAKER) (test zkbu=852) 111.3 fL 79.0-92.2 MEAN CORPUSCULAR HEMOGLOBIN (BEAKER) (test 36.8 pg 25.7-32.2 gvgo=749) MEAN CORPUSCULAR HEMOGLOBIN CONC (BEAKER) (test 33.0 GM/DL 32.3-36.5 qlvs=941) RED CELL DISTRIBUTION WIDTH (BEAKER) (test 15.5 % 11.6-14.4 bxfl=703) PLATELET COUNT (BEAKER) (test wmkf=685) 71 K/CU MM 150-450 MEAN PLATELET VOLUME (BEAKER) (test qjfg=539) 10.1 fL 9.4-12.4 NUCLEATED RED BLOOD CELLS (BEAKER) (test 0 /100 WBC 0-0 syrk=450) NEUTROPHILS RELATIVE PERCENT (BEAKER) (test 70 % hgdu=254) LYMPHOCYTES RELATIVE PERCENT (BEAKER) (test 13 % jgzf=611) MONOCYTES RELATIVE PERCENT (BEAKER) (test 10 % hczh=871) EOSINOPHILS RELATIVE PERCENT (BEAKER) (test 5 % sekd=275) BASOPHILS RELATIVE PERCENT (BEAKER) (test 1 % qpux=186) NEUTROPHILS ABSOLUTE COUNT (BEAKER) (test 4.28 K/ L 1.78-5.38 nbbw=205) LYMPHOCYTES ABSOLUTE COUNT (BEAKER) (test 0.78 K/ L 1.32-3.57 dbka=232) MONOCYTES ABSOLUTE COUNT (BEAKER) (test zbhd=701) 0.61 K/ L 0.30-0.82 EOSINOPHILS ABSOLUTE COUNT (BEAKER) (test 0.32 K/ L 0.04-0.54 pwhr=681) BASOPHILS ABSOLUTE COUNT (BEAKER) (test wfaz=744) 0.04 K/ L 0.01-0.08 IMMATURE GRANULOCYTES-RELATIVE PERCENT (BEAKER) 1 % 0-1 (test ofho=2504) BASIC METABOLIC [id number] 05:52:00 Test Item Value Reference Range Comments SODIUM (BEAKER) (test 124 meq/L 136-145 hsdc=720) POTASSIUM (BEAKER) (test 3.7 meq/L 3.5-5.1 Specimen slightly cpdc=569) hemolyzed CHLORIDE (BEAKER) (test 94 meq/L 98-107 aqme=352) CO2 (BEAKER) (test 24 meq/L 22-29 ldtf=842) BLOOD UREA NITROGEN 19 mg/dL 7-21 (BEAKER) (test qbbq=253) CREATININE (BEAKER) (test 0.73 mg/dL 0.57-1.25 Specimen slightly aowm=750) hemolyzed GLUCOSE RANDOM (BEAKER) 91 mg/dL 70-105 (test rxbi=122) CALCIUM (BEAKER) (test 7.4 mg/dL 8.4-10.2 kmen=344) EGFR (BEAKER) (test 112 mL/min/1.73 sq m ESTIMATED GFR IS NOT njkm=1590) ACCURATE CREATININE CLEARANCE IN PREDICTING GLOMERULAR FILTRATION RATE. ESTIMATED GFR IS NOT APPLICABLE FOR DIALYSIS PATIENTS. Specimen markedly ictericHEPATIC FUNCTION [id number] 05:52:00 Test Item Value Reference Range Comments TOTAL PROTEIN (BEAKER) (test 6.3 gm/dL 6.0-8.3 Specimen slightly hemolyzed nznu=581) ALBUMIN (BEAKER) (test 1.9 g/dL 3.5-5.0 Specimen slightly hemolyzed whar=6808) BILIRUBIN TOTAL (BEAKER) (test 9.4 mg/dL 0.2-1.2 Specimen slightly hemolyzed hchb=235) BILIRUBIN DIRECT (BEAKER) (test 4.9 mg/dL 0.1-0.5 Specimen slightly hemolyzed yqfh=352) ALKALINE PHOSPHATASE (BEAKER) 263 U/L 40-150 (test mpkr=762) AST (SGOT) (BEAKER) (test 138 U/L 5-34 Specimen slightly hemolyzed qufa=904) ALT (SGPT) (BEAKER) (test 61 U/L 6-55 Specimen slightly hemolyzed qmzr=622) Specimen markedly [id number] 05:49:00 Test Item Value Reference Range Comments MAGNESIUM (BEAKER) (test 1.9 mg/dL 1.6-2.6 Specimen slightly hemolyzed krff=872) [id number] 05:49:00 Test Item Value Reference Range Comments PHOSPHORUS (BEAKER) (test 3.3 mg/dL 2.3-4.7 Specimen slightly hemolyzed fksm=956) PROTHROMBIN [id number] 05:44:00 Test Item Value Reference Range Comments PROTIME (BEAKER) (test evan=694) 24.9 seconds 11.9-14.2 INR (BEAKER) (test iegb=553) 2.4 <=5.9 Effective 09/16/2018: PT Reference Range ChangeNew: 11.9-14.2 Previous: 11.7- 14.7RECOMMENDED COUMADIN/WARFARIN INR THERAPY RANGESSTANDARD DOSE: 2.0-3.0 Includes: PROPHYLAXIS for venous thrombosis, systemic embolization; TREATMENT for venous thrombosis and/or pulmonary embolus.HIGH RISK: Target INR is2.5-3.5 for patients wiht mechanical heart valves.CALCIUM, [id number] 05:27:00 Test Item Value Reference Range Comments CALCIUM IONIZED (BEAKER) (test xcot=603) 0.94 mmol/L 1.12-1.27 PH, BLOOD (BEAKER) (test evsw=1612) 7.52 RAD, CHEST, 1 VIEW, NON [id number] 05:21:00Reason for exam:->Fluid overloadShould this be performed at the bedside?->YesFINAL REPORT History: Fluid overload. Comparison: 03/10/2019 Findings: A single view of the chest is submitted. The cardiac silhouette is prominent in size but magnified by portable technique. There is mild central vascular prominence and cephalization of the pulmonary vasculature, which could reflect mild interstitial edema or reflect low lung volumes and patient positioning. Evaluation with 2 views of the upright chest can be performed, if indicated. There is no focal consolidation, pneumothorax, large pleural effusion or acute bony abnormality. Signed: Mac Arredondo MDReport Verified Date/Time: 2018 05:21:06 Electronically signed by: MAC ARREDONDO M.D. on 2018 05:21 AMCOMPREHENSIVE METABOLIC [id number] 08:44:00 Test Item Value Reference Range Comments TOTAL PROTEIN (BEAKER) 6.4 gm/dL 6.0-8.3 Specimen slightly (test ehrr=861) hemolyzed ALBUMIN (BEAKER) (test 1.9 g/dL 3.5-5.0 Specimen slightly rsfb=7872) hemolyzed ALKALINE PHOSPHATASE 269 U/L 40-150 (BEAKER) (test bkzu=854) BILIRUBIN TOTAL (BEAKER) 7.9 mg/dL 0.2-1.2 Specimen slightly (test dccw=568) hemolyzed SODIUM (BEAKER) (test 125 meq/L 136-145 nrim=554) POTASSIUM (BEAKER) (test 3.5 meq/L 3.5-5.1 Specimen slightly achv=752) hemolyzed CHLORIDE (BEAKER) (test 93 meq/L 98-107 fdgk=867) CO2 (BEAKER) (test 25 meq/L 22-29 aipu=125) BLOOD UREA NITROGEN 16 mg/dL 7-21 (BEAKER) (test bsqk=653) CREATININE (BEAKER) (test 0.74 mg/dL 0.57-1.25 Specimen slightly eqcj=622) hemolyzed GLUCOSE RANDOM (BEAKER) 72 mg/dL 70-105 (test bgme=233) CALCIUM (BEAKER) (test 7.3 mg/dL 8.4-10.2 swwg=283) AST (SGOT) (BEAKER) (test 146 U/L 5-34 Specimen slightly gmjd=164) hemolyzed ALT (SGPT) (BEAKER) (test 57 U/L 6-55 Specimen slightly ribd=366) hemolyzed EGFR (BEAKER) (test 111 mL/min/1.73 sq ESTIMATED GFR IS NOT wtqu=0208) m ACCURATE CREATININE CLEARANCE IN PREDICTING GLOMERULAR FILTRATION RATE. ESTIMATED GFR IS NOT APPLICABLE FOR DIALYSIS PATIENTS. Specimen moderately ictericHEPATIC FUNCTION [id number] 08:43:00 Test Item Value Reference Range Comments TOTAL PROTEIN (BEAKER) (test 6.4 gm/dL 6.0-8.3 Specimen slightly hemolyzed qhaq=469) ALBUMIN (BEAKER) (test 1.9 g/dL 3.5-5.0 Specimen slightly hemolyzed knao=1707) BILIRUBIN TOTAL (BEAKER) (test 7.9 mg/dL 0.2-1.2 Specimen slightly hemolyzed kelb=703) BILIRUBIN DIRECT (BEAKER) (test 4.0 mg/dL 0.1-0.5 Specimen slightly hemolyzed pkqr=902) ALKALINE PHOSPHATASE (BEAKER) 269 U/L 40-150 (test pfju=734) AST (SGOT) (BEAKER) (test 146 U/L 5-34 Specimen slightly hemolyzed xyhf=030) ALT (SGPT) (BEAKER) (test 57 U/L 6-55 Specimen slightly hemolyzed wxax=273) Specimen moderately [id number] 08:03:00 Test Item Value Reference Range Comments MAGNESIUM (BEAKER) (test 1.6 mg/dL 1.6-2.6 Specimen slightly hemolyzed ohgy=098) [id number] 08:03:00 Test Item Value Reference Range Comments PHOSPHORUS (BEAKER) (test 3.6 mg/dL 2.3-4.7 Specimen slightly hemolyzed qosc=620) B-TYPE NATRIURETIC FACTOR (BNP)[id number] 06:11:00 Test Item Value Reference Range Comments B-TYPE NATRIURETIC PEPTIDE (BEAKER) (test xaso=517) 71 pg/mL 0-100 CBC W/PLT COUNT & AUTO [id number] 06:01:00 Test Item Value Reference Range Comments WHITE BLOOD CELL COUNT (BEAKER) (test wkft=712) 5.9 K/ L 3.5-10.5 RED BLOOD CELL COUNT (BEAKER) (test ylou=295) 2.06 M/ L 4.63-6.08 HEMOGLOBIN (BEAKER) (test uxpt=556) 7.5 GM/DL 13.7-17.5 HEMATOCRIT (BEAKER) (test rsoo=188) 22.7 % 40.1-51.0 MEAN CORPUSCULAR VOLUME (BEAKER) (test iipw=379) 110.2 fL 79.0-92.2 MEAN CORPUSCULAR HEMOGLOBIN (BEAKER) (test 36.4 pg 25.7-32.2 csjw=671) MEAN CORPUSCULAR HEMOGLOBIN CONC (BEAKER) (test 33.0 GM/DL 32.3-36.5 ybjm=538) RED CELL DISTRIBUTION WIDTH (BEAKER) (test 15.5 % 11.6-14.4 ovet=077) PLATELET COUNT (BEAKER) (test jzwx=234) 74 K/CU MM 150-450 MEAN PLATELET VOLUME (BEAKER) (test odhc=646) 10.7 fL 9.4-12.4 NUCLEATED RED BLOOD CELLS (BEAKER) (test 0 /100 WBC 0-0 ddtw=535) NEUTROPHILS RELATIVE PERCENT (BEAKER) (test 68 % hccw=693) LYMPHOCYTES RELATIVE PERCENT (BEAKER) (test 15 % yndu=242) MONOCYTES RELATIVE PERCENT (BEAKER) (test 11 % olch=204) EOSINOPHILS RELATIVE PERCENT (BEAKER) (test 6 % dmgu=886) BASOPHILS RELATIVE PERCENT (BEAKER) (test 1 % efph=866) NEUTROPHILS ABSOLUTE COUNT (BEAKER) (test 4.03 K/ L 1.78-5.38 ibfi=819) LYMPHOCYTES ABSOLUTE COUNT (BEAKER) (test 0.87 K/ L 1.32-3.57 jwol=334) MONOCYTES ABSOLUTE COUNT (BEAKER) (test snnv=349) 0.62 K/ L 0.30-0.82 EOSINOPHILS ABSOLUTE COUNT (BEAKER) (test 0.34 K/ L 0.04-0.54 piwu=832) BASOPHILS ABSOLUTE COUNT (BEAKER) (test urqk=486) 0.03 K/ L 0.01-0.08 IMMATURE GRANULOCYTES-RELATIVE PERCENT (BEAKER) 1 % 0-1 (test ztaw=9534) PROTHROMBIN [id number] 05:50:00 Test Item Value Reference Range Comments PROTIME (BEAKER) (test gutt=599) 25.3 seconds 11.9-14.2 INR (BEAKER) (test dbdg=125) 2.4 <=5.9 Effective 09/16/2018: PT Reference Range ChangeNew: 11.9-14.2 Previous: 11.7- 14.7RECOMMENDED COUMADIN/WARFARIN INR THERAPY RANGESSTANDARD DOSE: 2.0-3.0 Includes: PROPHYLAXIS for venous thrombosis, systemic embolization; TREATMENT for venous thrombosis and/or pulmonary embolus.HIGH RISK: Target INR is2.5-3.5 for patients wiht mechanical heart valves.CALCIUM, [id number] 05:44:00 Test Item Value Reference Range Comments CALCIUM IONIZED (BEAKER) (test mikx=882) 0.93 mmol/L 1.12-1.27 PH, BLOOD (BEAKER) (test cwsu=3593) 7.51 HEPATIC FUNCTION [id number] 06:46:00 Test Item Value Reference Range Comments TOTAL PROTEIN (BEAKER) (test jiph=310) 6.3 gm/dL 6.0-8.3 ALBUMIN (BEAKER) (test mqmr=2250) 1.9 g/dL 3.5-5.0 BILIRUBIN TOTAL (BEAKER) (test cxev=905) 7.6 mg/dL 0.2-1.2 BILIRUBIN DIRECT (BEAKER) (test wopy=013) 4.0 mg/dL 0.1-0.5 ALKALINE PHOSPHATASE (BEAKER) (test bawl=544) 278 U/L 40-150 AST (SGOT) (BEAKER) (test qnwg=971) 124 U/L 5-34 ALT (SGPT) (BEAKER) (test dhjr=568) 55 U/L 6-55 Specimen moderately ictericCOMPREHENSIVE METABOLIC [id number] 06:32:00 Test Item Value Reference Range Comments TOTAL PROTEIN (BEAKER) 6.3 gm/dL 6.0-8.3 (test gcpg=084) ALBUMIN (BEAKER) (test 1.9 g/dL 3.5-5.0 tocw=1544) ALKALINE PHOSPHATASE 278 U/L 40-150 (BEAKER) (test aijp=776) BILIRUBIN TOTAL (BEAKER) 7.6 mg/dL 0.2-1.2 (test tinp=110) SODIUM (BEAKER) (test 123 meq/L 136-145 vrrd=101) POTASSIUM (BEAKER) (test 4.6 meq/L 3.5-5.1 opac=723) CHLORIDE (BEAKER) (test 94 meq/L 98-107 ntdi=683) CO2 (BEAKER) (test 26 meq/L 22-29 fjam=059) BLOOD UREA NITROGEN 16 mg/dL 7-21 (BEAKER) (test wjyc=328) CREATININE (BEAKER) (test 0.69 mg/dL 0.57-1.25 xetx=834) GLUCOSE RANDOM (BEAKER) 91 mg/dL 70-105 (test mwuy=978) CALCIUM (BEAKER) (test 7.6 mg/dL 8.4-10.2 iflb=658) AST (SGOT) (BEAKER) (test 124 U/L 5-34 pokg=715) ALT (SGPT) (BEAKER) (test 55 U/L 6-55 lngw=424) EGFR (BEAKER) (test 120 mL/min/1.73 sq ESTIMATED GFR IS NOT tdfp=6252) m ACCURATE CREATININE CLEARANCE IN PREDICTING GLOMERULAR FILTRATION RATE. ESTIMATED GFR IS NOT APPLICABLE FOR DIALYSIS PATIENTS. Specimen moderately [id number] 05:45:00 Test Item Value Reference Range Comments PHOSPHORUS (BEAKER) (test wkoh=743) 3.0 mg/dL 2.3-4.7 [id number] 05:45:00 Test Item Value Reference Range Comments MAGNESIUM (BEAKER) (test hrtr=532) 1.9 mg/dL 1.6-2.6 CBC W/PLT COUNT & AUTO [id number] 05:03:00 Test Item Value Reference Range Comments WHITE BLOOD CELL COUNT (BEAKER) (test oeda=195) 5.8 K/ L 3.5-10.5 RED BLOOD CELL COUNT (BEAKER) (test jmmh=039) 2.05 M/ L 4.63-6.08 HEMOGLOBIN (BEAKER) (test zzhq=271) 7.5 GM/DL 13.7-17.5 HEMATOCRIT (BEAKER) (test vujr=601) 22.7 % 40.1-51.0 MEAN CORPUSCULAR VOLUME (BEAKER) (test dwhj=134) 110.7 fL 79.0-92.2 MEAN CORPUSCULAR HEMOGLOBIN (BEAKER) (test 36.6 pg 25.7-32.2 ggtf=757) MEAN CORPUSCULAR HEMOGLOBIN CONC (BEAKER) (test 33.0 GM/DL 32.3-36.5 ueit=533) RED CELL DISTRIBUTION WIDTH (BEAKER) (test 15.2 % 11.6-14.4 yyfg=637) PLATELET COUNT (BEAKER) (test ulbn=472) 70 K/CU MM 150-450 MEAN PLATELET VOLUME (BEAKER) (test nyaz=573) 10.2 fL 9.4-12.4 NUCLEATED RED BLOOD CELLS (BEAKER) (test 0 /100 WBC 0-0 ejeo=151) NEUTROPHILS RELATIVE PERCENT (BEAKER) (test 70 % enla=730) LYMPHOCYTES RELATIVE PERCENT (BEAKER) (test 15 % zcgg=709) MONOCYTES RELATIVE PERCENT (BEAKER) (test 10 % zdcd=722) EOSINOPHILS RELATIVE PERCENT (BEAKER) (test 5 % pmqb=098) BASOPHILS RELATIVE PERCENT (BEAKER) (test 1 % ygny=737) NEUTROPHILS ABSOLUTE COUNT (BEAKER) (test 4.04 K/ L 1.78-5.38 quxl=894) LYMPHOCYTES ABSOLUTE COUNT (BEAKER) (test 0.84 K/ L 1.32-3.57 zkwp=078) MONOCYTES ABSOLUTE COUNT (BEAKER) (test tigb=937) 0.56 K/ L 0.30-0.82 EOSINOPHILS ABSOLUTE COUNT (BEAKER) (test 0.26 K/ L 0.04-0.54 ygsn=949) BASOPHILS ABSOLUTE COUNT (BEAKER) (test hlyc=149) 0.03 K/ L 0.01-0.08 IMMATURE GRANULOCYTES-RELATIVE PERCENT (BEAKER) 1 % 0-1 (test oxqo=5341) PROTHROMBIN [id number] 04:55:00 Test Item Value Reference Range Comments PROTIME (BEAKER) (test bnqu=077) 25.3 seconds 11.9-14.2 INR (BEAKER) (test gjrd=136) 2.5 <=5.9 Effective 09/16/2018: PT Reference Range ChangeNew: 11.9-14.2 Previous: 11.7- 14.7RECOMMENDED COUMADIN/WARFARIN INR THERAPY RANGESSTANDARD DOSE: 2.0-3.0 Includes: PROPHYLAXIS for venous thrombosis, systemic embolization; TREATMENT for venous thrombosis and/or pulmonary embolus.HIGH RISK: Target INR is2.5-3.5 for patients wiht mechanical heart valves.CALCIUM, [id number] 04:51:00 Test Item Value Reference Range Comments CALCIUM IONIZED (BEAKER) (test cett=392) 1.05 mmol/L 1.12-1.27 PH, BLOOD (BEAKER) (test rucg=8796) 7.46 CORTISOL,60 [id number] 00:43:00 Test Item Value Reference Range Comments CORTISOL BASELINE NETWORKED (BEAKER) (test 2.9 mcg/dL jmga=0692) CORTISOL 30 MINUTE NETWORKED (BEAKER) (test 9.2 mcg/dL ehwt=8258) CORTISOL, 60 MINUTE (BEAKER) (test kbju=6717) 10.7 ug/dL ACTH STIMULATION TEST INTERPRETATION GUIDELINES(Synonyms: Cortrosyn Test, Cosyntropin or Corticotropin Stimulation Test)Adenocorticotropic hormone (ACTH) is a tropic hormone, made in the pituitary gland, which travels trhough the bloodstream and stimulates the cortex of the adrenal glands to release cortisol. Cortisol is a primary hormone, which aids the body's metabolism of fats, carbohydrates, and protein as well as sodium and potassium regulation.ACTH Stimulation Test: Exogenous administrationof biologically active ACTH stimulates the secretion of cortisol from the adrenal gland. This test is used to evaluate adrenal function by measuring cortisol levels at baseline and at 30 and 60 minutesafter the administration of 250 micrograms of cosyntropin (Cortrosyn). Patients who have received exogenous corticosteroids immediately prior to performing the ACTH Stimulation Test will often have elevated baseline cortisol levels, which may lead to erroneous interpretation of test results. The notable exception is with dexamethasone.Normal Response: An increase in cortisol after stimulation by ACTHis normal. Post-stimulation cortisol concentration should be greater than 20 mcg/dL or the rate of rise from baseline cortisol should be greater than or equal to 9 mcg/dL.Patients with sepsis or septicshock: According to a study by Deanna et al (KACEY 2000,283( [phone]), the ACTH Stimulation Test provides important prognostic information. This study defined 3 groups of patients with sepsis or septic shock : 1. Good Survival: Low basal cortisol (<or=34 mcg/dL) and high ACTH response (>9mcg/dL) 2. Intermediate Survival: Low basal cortisol (< 34 mcg/dL) and low response to ACTH (<or=9 mcg/dL) OR High basal cortisol (>34 mcg/dL) or high ACTH response (>9 mcg/dL) 3.Poor Survival: High basal cortisol (>34 mcg/dL) and low ACTH response (<or=9 mcg/dL) .Treatment of patients with relative adrenal dysfunction may be indicated based on test results and the clinical condition of the patient. Additional information, including treatment recommendations, is available in critically ill patients, approved by the Pharmacy, Nutrition, and Therapeutics Committee on 03/30/2004 and available through the Pharmacy Policy and Procedure Section on [employer].Do not run this test if systemic hydrocortisone, methylprednisolone, prednisolone or prednisone has been administered within the past 24 hours. Draw baseline cortisol level just prior to cosyntropin administration. Administer cosyntropin 0.25 mg diluted in 2-5 mL of normal saline slow IV Push over a period of 2 minutes. Draw serum cortisol level 30 minutes after cosyntropin administration. Draw serum cortisollevel 60 minutes after cosyntropin administration.CORTISOL,30 [id number] 19:52:00 Test Item Value Reference Range Comments CORTISOL BASELINE NETWORKED (BEAKER) (test 2.9 mcg/dL ckkj=8107) CORTISOL, 30 MINUTE (BEAKER) (test nfmb=9236) 9.2 ug/dL ACTH STIMULATION TEST INTERPRETATION GUIDELINES(Synonyms: Cortrosyn Test, Cosyntropin or Corticotropin Stimulation Test)Adenocorticotropic hormone (ACTH) is a tropic hormone, made in the pituitary gland, which travels trhough the bloodstream and stimulates the cortex of the adrenal glands to release cortisol. Cortisol is a primary hormone, which aids the body's metabolism of fats, carbohydrates, and protein as well as sodium and potassium regulation.ACTH Stimulation Test: Exogenous administrationof biologically active ACTH stimulates the secretion of cortisol from the adrenal gland. This test is used to evaluate adrenal function by measuring cortisol levels at baseline and at 30 and 60 minutesafter the administration of 250 micrograms of cosyntropin (Cortrosyn). Patients who have received exogenous corticosteroids immediately prior to performing the ACTH Stimulation Test will often have elevated baseline cortisol levels, which may lead to erroneous interpretation of test results. The notable exception is with dexamethasone.Normal Response: An increase in cortisol after stimulation by ACTHis normal. Post-stimulation cortisol concentration should be greater than 20 mcg/dL or the rate of rise from baseline cortisol should be greater than or equal to 9 mcg/dL.Patients with sepsis or septicshock: According to a study by Deanna et al (KACEY 2000,283( 8):1192-45), the ACTH Stimulation Test provides important prognostic information. This study defined 3 groups of patients with sepsis or septic shock : 1. Good Survival: Low basal cortisol (<or=34 mcg/dL) and high ACTH response (>9mcg/dL) 2. Intermediate Survival: Low basal cortisol (< 34 mcg/dL) and low response to ACTH (<or=9 mcg/dL) OR High basal cortisol (>34 mcg/dL) or high ACTH response (>9 mcg/dL) 3.Poor Survival: High basal cortisol (>34 mcg/dL) and low ACTH response (<or=9 mcg/dL) .Treatment of patients with relative adrenal dysfunction may be indicated based on test results and the clinical condition of the patient. Additional information, including treatment recommendations, is available in critically ill patients, approved by the Pharmacy, Nutrition, and Therapeutics Committee on 03/30/2004 and available through the Pharmacy Policy and Procedure Section on [employer].Do not run this test if systemic hydrocortisone, methylprednisolone, prednisolone or prednisone has been administered within the past 24 hours. Draw baseline cortisol level just prior to cosyntropin administration. Administer cosyntropin 0.25 mg diluted in 2-5 mL of normal saline slow IV Push over a period of 2 minutes. Draw serum cortisol level 30 minutes after cosyntropin administration. Draw serum cortisollevel 60 minutes after cosyntropin administration.CORTISOL,[id number] 19:14:00 Test Item Value Reference Range Comments CORTISOL, BASELINE (ANA MARIA) (test vjvs=2279) 2.9 ug/dL ACTH STIMULATION TEST INTERPRETATION GUIDELINES(Synonyms: Cortrosyn Test, Cosyntropin or Corticotropin Stimulation Test)Adenocorticotropic hormone (ACTH) is a tropic hormone, made in the pituitary gland, which travels trhough the bloodstream and stimulates the cortex of the adrenal glands to release cortisol. Cortisol is a primary hormone, which aids the body's metabolism of fats, carbohydrates, and protein as well as sodium and potassium regulation.ACTH Stimulation Test: Exogenous administrationof biologically active ACTH stimulates the secretion of cortisol from the adrenal gland. This test is used to evaluate adrenal function by measuring cortisol levels at baseline and at 30 and 60 minutesafter the administration of 250 micrograms of cosyntropin (Cortrosyn). Patients who have received exogenous corticosteroids immediately prior to performing the ACTH Stimulation Test will often have elevated baseline cortisol levels, which may lead to erroneous interpretation of test results. The notable exception is with dexamethasone.Normal Response: An increase in cortisol after stimulation by ACTHis normal. Post-stimulation cortisol concentration should be greater than 20 mcg/dL or the rate of rise from baseline cortisol should be greater than or equal to 9 mcg/dL.Patients with sepsis or septicshock: According to a study by Deanna et al (KACEY 2000,283( 8):1038-45), the ACTH Stimulation Test provides important prognostic information. This study defined 3 groups of patients with sepsis or septic shock : 1. Good Survival: Low basal cortisol (<or=34 mcg/dL) and high ACTH response (>9mcg/dL) 2. Intermediate Survival: Low basal cortisol (< 34 mcg/dL) and low response to ACTH (<or=9 mcg/dL) OR High basal cortisol (>34 mcg/dL) or high ACTH response (>9 mcg/dL) 3.Poor Survival: High basal cortisol (>34 mcg/dL) and low ACTH response (<or=9 mcg/dL) .Treatment of patients with relative adrenal dysfunction may be indicated based on test results and the clinical condition of the patient. Additional information, including treatment recommendations, is available in critically ill patients, approved by the Pharmacy, Nutrition, and Therapeutics Committee on 03/30/2004 and available through the Pharmacy Policy and Procedure Section on [employer].Do not run this test if systemic hydrocortisone, methylprednisolone, prednisolone or prednisone has been administered within the past 24 hours. Draw baseline cortisol level just prior to cosyntropin administration. Administer cosyntropin 0.25 mg diluted in 2-5 mL of normal saline slow IV Push over a period of 2 minutes. Draw serum cortisol level 30 minutes after cosyntropin administration. Draw serum cortisollevel 60 minutes after cosyntropin administration.COMPREHENSIVE METABOLIC [id number] 05:39: 00 Test Item Value Reference Range Comments TOTAL PROTEIN (BEAKER) 6.5 gm/dL 6.0-8.3 (test hsis=559) ALBUMIN (BEAKER) (test 2.0 g/dL 3.5-5.0 ogbm=4277) ALKALINE PHOSPHATASE 295 U/L 40-150 (BEAKER) (test exce=894) BILIRUBIN TOTAL (BEAKER) 7.5 mg/dL 0.2-1.2 (test bvaw=470) SODIUM (BEAKER) (test 123 meq/L 136-145 apbw=026) POTASSIUM (BEAKER) (test 3.9 meq/L 3.5-5.1 vflj=922) CHLORIDE (BEAKER) (test 92 meq/L 98-107 fdab=634) CO2 (BEAKER) (test 26 meq/L 22-29 ptja=327) BLOOD UREA NITROGEN 16 mg/dL 7-21 (BEAKER) (test ddgu=796) CREATININE (BEAKER) (test 0.75 mg/dL 0.57-1.25 qjzq=857) GLUCOSE RANDOM (BEAKER) 83 mg/dL 70-105 (test qvps=928) CALCIUM (BEAKER) (test 7.8 mg/dL 8.4-10.2 lwjk=762) AST (SGOT) (BEAKER) (test 127 U/L 5-34 jiah=759) ALT (SGPT) (BEAKER) (test 57 U/L 6-55 inbi=607) EGFR (BEAKER) (test 109 mL/min/1.73 sq ESTIMATED GFR IS NOT ipnl=3457) m ACCURATE CREATININE CLEARANCE IN PREDICTING GLOMERULAR FILTRATION RATE. ESTIMATED GFR IS NOT APPLICABLE FOR DIALYSIS PATIENTS. Specimen moderately ictericTSH/FREE T4 IF [id number] 05:35:00 Test Item Value Reference Range Comments THYROID STIMULATING HORMONE (BEAKER) (test 2.13 uIU/mL 0.35-4.94 etvw=814) [id number] 05:30:00 Test Item Value Reference Range Comments PHOSPHORUS (BEAKER) (test bjiz=745) 3.0 mg/dL 2.3-4.7 [id number] 05:30:00 Test Item Value Reference Range Comments MAGNESIUM (BEAKER) (test mjji=388) 2.0 mg/dL 1.6-2.6 HEPATIC FUNCTION [id number] 05:30:00 Test Item Value Reference Range Comments TOTAL PROTEIN (BEAKER) (test ixaa=095) 6.5 gm/dL 6.0-8.3 ALBUMIN (BEAKER) (test ntia=7102) 2.0 g/dL 3.5-5.0 BILIRUBIN TOTAL (BEAKER) (test dbsa=801) 7.5 mg/dL 0.2-1.2 BILIRUBIN DIRECT (BEAKER) (test jfub=492) 4.1 mg/dL 0.1-0.5 ALKALINE PHOSPHATASE (BEAKER) (test nyhn=382) 295 U/L 40-150 AST (SGOT) (BEAKER) (test emch=437) 127 U/L 5-34 ALT (SGPT) (BEAKER) (test zzne=159) 57 U/L 6-55 Specimen moderately ictericCBC W/PLT COUNT & AUTO [id number] 05: 04:00 Test Item Value Reference Range Comments WHITE BLOOD CELL COUNT (BEAKER) (test tgwb=994) 7.1 K/ L 3.5-10.5 RED BLOOD CELL COUNT (BEAKER) (test tmcx=461) 2.15 M/ L 4.63-6.08 HEMOGLOBIN (BEAKER) (test ioqv=607) 7.8 GM/DL 13.7-17.5 HEMATOCRIT (BEAKER) (test yafs=459) 24.3 % 40.1-51.0 MEAN CORPUSCULAR VOLUME (BEAKER) (test wxac=948) 113.0 fL 79.0-92.2 MEAN CORPUSCULAR HEMOGLOBIN (BEAKER) (test 36.3 pg 25.7-32.2 stlk=998) MEAN CORPUSCULAR HEMOGLOBIN CONC (BEAKER) (test 32.1 GM/DL 32.3-36.5 xwsv=539) RED CELL DISTRIBUTION WIDTH (BEAKER) (test 15.4 % 11.6-14.4 iozg=490) PLATELET COUNT (BEAKER) (test nofe=092) 76 K/CU MM 150-450 MEAN PLATELET VOLUME (BEAKER) (test nntb=491) 10.0 fL 9.4-12.4 NUCLEATED RED BLOOD CELLS (BEAKER) (test 0 /100 WBC 0-0 ldsq=964) NEUTROPHILS RELATIVE PERCENT (BEAKER) (test 63 % kntf=766) LYMPHOCYTES RELATIVE PERCENT (BEAKER) (test 15 % qeka=624) MONOCYTES RELATIVE PERCENT (BEAKER) (test 13 % dhrw=050) EOSINOPHILS RELATIVE PERCENT (BEAKER) (test 8 % crln=236) BASOPHILS RELATIVE PERCENT (BEAKER) (test 1 % vcej=568) NEUTROPHILS ABSOLUTE COUNT (BEAKER) (test 4.50 K/ L 1.78-5.38 zeqg=986) LYMPHOCYTES ABSOLUTE COUNT (BEAKER) (test 1.03 K/ L 1.32-3.57 qopa=200) MONOCYTES ABSOLUTE COUNT (BEAKER) (test dlcg=490) 0.90 K/ L 0.30-0.82 EOSINOPHILS ABSOLUTE COUNT (BEAKER) (test 0.55 K/ L 0.04-0.54 exfd=992) BASOPHILS ABSOLUTE COUNT (BEAKER) (test xwxd=292) 0.04 K/ L 0.01-0.08 IMMATURE GRANULOCYTES-RELATIVE PERCENT (BEAKER) 1 % 0-1 (test hsqt=9047) PROTHROMBIN [id number] 05:03:00 Test Item Value Reference Range Comments PROTIME (BEAKER) (test ffcr=768) 25.0 seconds 11.9-14.2 INR (BEAKER) (test qart=523) 2.4 <=5.9 Effective 09/16/2018: PT Reference Range ChangeNew: 11.9-14.2 Previous: 11.7- 14.7RECOMMENDED COUMADIN/WARFARIN INR THERAPY RANGESSTANDARD DOSE: 2.0-3.0 Includes: PROPHYLAXIS for venous thrombosis, systemic embolization; TREATMENT for venous thrombosis and/or pulmonary embolus.HIGH RISK: Target INR is2.5-3.5 for patients wiht mechanical heart valves.CALCIUM, [id number] 04:56:00 Test Item Value Reference Range Comments CALCIUM IONIZED (BEAKER) (test zwbp=073) 1.03 mmol/L 1.12-1.27 PH, BLOOD (BEAKER) (test sauz=8709) 7.43 SODIUM, RANDOM [id number] 19:22:00 Test Item Value Reference Range Comments SODIUM URINE (BEAKER) (test smqj=096) < meq/L Reference Range: No NormalsOSMOLALITY, [id number] 18:48:00 Test Item Value Reference Range Comments OSMOLALITY URINE (BEAKER) (test mekr=999) 542 mOsm/kg 40-1,400 [id number] 18:26:00 Test Item Value Reference Range Comments SODIUM (BEAKER) (test pmvd=850) 124 meq/L 136-145 POTASSIUM (BEAKER) (test 4.3 meq/L 3.5-5.1 Specimen slightly hemolyzed lovs=516) CHLORIDE (BEAKER) (test 93 meq/L 98-107 symf=269) CO2 (BEAKER) (test toxe=201) 25 meq/L Call [id number] 15:21:00 Test Item Value Reference Range Comments CORTISOL, TOTAL (BEAKER) (test jqjg=3514) 3.1 ug/dL 3.7-19.4 HEPATIC FUNCTION [id number] 06:32:00 Test Item Value Reference Range Comments TOTAL PROTEIN (BEAKER) (test 6.4 gm/dL 6.0-8.3 Specimen slightly hemolyzed lmzk=885) ALBUMIN (BEAKER) (test 1.9 g/dL 3.5-5.0 Specimen slightly hemolyzed rgvz=8132) BILIRUBIN TOTAL (BEAKER) (test 7.7 mg/dL 0.2-1.2 Specimen slightly hemolyzed kjte=651) BILIRUBIN DIRECT (BEAKER) (test 4.3 mg/dL 0.1-0.5 Specimen slightly hemolyzed iigp=040) ALKALINE PHOSPHATASE (BEAKER) 285 U/L 40-150 (test nevy=182) AST (SGOT) (BEAKER) (test 117 U/L 5-34 Specimen slightly hemolyzed ndty=228) ALT (SGPT) (BEAKER) (test 48 U/L 6-55 Specimen slightly hemolyzed clio=810) Specimen moderately ictericCOMPREHENSIVE METABOLIC [id number] 06:32:00 Test Item Value Reference Range Comments TOTAL PROTEIN (BEAKER) 6.4 gm/dL 6.0-8.3 Specimen slightly (test ubmf=523) hemolyzed ALBUMIN (BEAKER) (test 1.9 g/dL 3.5-5.0 Specimen slightly wjhw=3105) hemolyzed ALKALINE PHOSPHATASE 285 U/L 40-150 (BEAKER) (test wfvo=409) BILIRUBIN TOTAL (BEAKER) 7.7 mg/dL 0.2-1.2 Specimen slightly (test ueob=223) hemolyzed SODIUM (BEAKER) (test 122 meq/L 136-145 pwwj=248) POTASSIUM (BEAKER) (test 4.0 meq/L 3.5-5.1 Specimen slightly sinp=812) hemolyzed CHLORIDE (BEAKER) (test 93 meq/L 98-107 ghjg=869) CO2 (BEAKER) (test 27 meq/L 22-29 ntki=410) BLOOD UREA NITROGEN 16 mg/dL 7-21 (BEAKER) (test fqwb=181) CREATININE (BEAKER) (test 0.70 mg/dL 0.57-1.25 Specimen slightly egbs=154) hemolyzed GLUCOSE RANDOM (BEAKER) 107 mg/dL 70-105 (test hzti=941) CALCIUM (BEAKER) (test 7.3 mg/dL 8.4-10.2 oloc=366) AST (SGOT) (BEAKER) (test 117 U/L 5-34 Specimen slightly kcws=270) hemolyzed ALT (SGPT) (BEAKER) (test 48 U/L 6-55 Specimen slightly wims=050) hemolyzed EGFR (BEAKER) (test 118 mL/min/1.73 sq ESTIMATED GFR IS NOT yvlk=0884) m ACCURATE CREATININE CLEARANCE IN PREDICTING GLOMERULAR FILTRATION RATE. ESTIMATED GFR IS NOT APPLICABLE FOR DIALYSIS PATIENTS. Specimen moderately [id number] 06:27:00 Test Item Value Reference Range Comments MAGNESIUM (BEAKER) (test 1.9 mg/dL 1.6-2.6 Specimen slightly hemolyzed nnmb=694) [id number] 06:27:00 Test Item Value Reference Range Comments PHOSPHORUS (BEAKER) (test 3.1 mg/dL 2.3-4.7 Specimen slightly hemolyzed dmja=918) CALCIUM, [id number] 06:26:00 Test Item Value Reference Range Comments CALCIUM IONIZED (BEAKER) (test rzpn=289) 0.95 mmol/L 1.12-1.27 PH, BLOOD (BEAKER) (test rijq=2002) 7.52 CBC W/PLT COUNT & AUTO [id number] 06:00:00 Test Item Value Reference Range Comments WHITE BLOOD CELL COUNT (BEAKER) (test wztr=459) 6.1 K/ L 3.5-10.5 RED BLOOD CELL COUNT (BEAKER) (test reak=023) 2.07 M/ L 4.63-6.08 HEMOGLOBIN (BEAKER) (test yxml=804) 7.6 GM/DL 13.7-17.5 HEMATOCRIT (BEAKER) (test zcgd=075) 23.1 % 40.1-51.0 MEAN CORPUSCULAR VOLUME (BEAKER) (test jlga=751) 111.6 fL 79.0-92.2 MEAN CORPUSCULAR HEMOGLOBIN (BEAKER) (test 36.7 pg 25.7-32.2 smjt=966) MEAN CORPUSCULAR HEMOGLOBIN CONC (BEAKER) (test 32.9 GM/DL 32.3-36.5 mhbt=813) RED CELL DISTRIBUTION WIDTH (BEAKER) (test 15.5 % 11.6-14.4 dzip=563) PLATELET COUNT (BEAKER) (test ayqb=987) 71 K/CU MM 150-450 MEAN PLATELET VOLUME (BEAKER) (test pacl=431) 10.3 fL 9.4-12.4 NUCLEATED RED BLOOD CELLS (BEAKER) (test 0 /100 WBC 0-0 bkhi=863) NEUTROPHILS RELATIVE PERCENT (BEAKER) (test 66 % ednt=652) LYMPHOCYTES RELATIVE PERCENT (BEAKER) (test 16 % ooyb=356) MONOCYTES RELATIVE PERCENT (BEAKER) (test 9 % ipjx=295) EOSINOPHILS RELATIVE PERCENT (BEAKER) (test 8 % joid=458) BASOPHILS RELATIVE PERCENT (BEAKER) (test 1 % ukha=291) NEUTROPHILS ABSOLUTE COUNT (BEAKER) (test 3.98 K/ L 1.78-5.38 xmkp=145) LYMPHOCYTES ABSOLUTE COUNT (BEAKER) (test 0.98 K/ L 1.32-3.57 ayxe=257) MONOCYTES ABSOLUTE COUNT (BEAKER) (test xxcy=630) 0.55 K/ L 0.30-0.82 EOSINOPHILS ABSOLUTE COUNT (BEAKER) (test 0.48 K/ L 0.04-0.54 vyup=281) BASOPHILS ABSOLUTE COUNT (BEAKER) (test dgmv=094) 0.04 K/ L 0.01-0.08 IMMATURE GRANULOCYTES-RELATIVE PERCENT (BEAKER) 1 % 0-1 (test fijz=9143) PROTHROMBIN [id number] 05:40:00 Test Item Value Reference Range Comments PROTIME (BEAKER) (test fjhb=834) 25.6 seconds 11.9-14.2 INR (BEAKER) (test ojol=224) 2.5 <=5.9 Effective 09/16/2018: PT Reference Range ChangeNew: 11.9-14.2 Previous: 11.7- 14.7RECOMMENDED COUMADIN/WARFARIN INR THERAPY RANGESSTANDARD DOSE: 2.0-3.0 Includes: PROPHYLAXIS for venous thrombosis, systemic embolization; TREATMENT for venous thrombosis and/or pulmonary embolus.HIGH RISK: Target INR is2.5-3.5 for patients wiht mechanical heart valves.BASIC METABOLIC [id number] 05:31: 00 Test Item Value Reference Range Comments SODIUM (BEAKER) (test 126 meq/L 136-145 geay=822) POTASSIUM (BEAKER) (test 3.8 meq/L 3.5-5.1 ancf=982) CHLORIDE (BEAKER) (test 94 meq/L 98-107 kqme=486) CO2 (BEAKER) (test 28 meq/L 22-29 jncz=053) BLOOD UREA NITROGEN 14 mg/dL 7-21 (BEAKER) (test sezx=876) CREATININE (BEAKER) (test 0.73 mg/dL 0.57-1.25 yctk=133) GLUCOSE RANDOM (BEAKER) 102 mg/dL 70-105 (test vldl=082) CALCIUM (BEAKER) (test 7.6 mg/dL 8.4-10.2 mihp=318) EGFR (BEAKER) (test 112 mL/min/1.73 sq m ESTIMATED GFR IS NOT npqk=5794) ACCURATE CREATININE CLEARANCE IN PREDICTING GLOMERULAR FILTRATION RATE. ESTIMATED GFR IS NOT APPLICABLE FOR DIALYSIS PATIENTS. Specimen moderately [id number] 05:30:00 Test Item Value Reference Range Comments MAGNESIUM (BEAKER) (test vhqk=988) 2.0 mg/dL 1.6-2.6 HEPATIC FUNCTION [id number] 05:30:00 Test Item Value Reference Range Comments TOTAL PROTEIN (BEAKER) (test nsfc=442) 6.7 gm/dL 6.0-8.3 ALBUMIN (BEAKER) (test leqz=6137) 2.0 g/dL 3.5-5.0 BILIRUBIN TOTAL (BEAKER) (test eykk=262) 8.3 mg/dL 0.2-1.2 BILIRUBIN DIRECT (BEAKER) (test eskt=338) 4.5 mg/dL 0.1-0.5 ALKALINE PHOSPHATASE (BEAKER) (test wjbk=813) 300 U/L 40-150 AST (SGOT) (BEAKER) (test kexi=796) 126 U/L 5-34 ALT (SGPT) (BEAKER) (test prso=090) 54 U/L 6-55 Specimen moderately ictericCBC W/PLT COUNT & AUTO [id number] 05: 12:00 Test Item Value Reference Range Comments WHITE BLOOD CELL COUNT (BEAKER) (test khfc=180) 6.6 K/ L 3.5-10.5 RED BLOOD CELL COUNT (BEAKER) (test npjo=361) 2.13 M/ L 4.63-6.08 HEMOGLOBIN (BEAKER) (test bfio=192) 7.9 GM/DL 13.7-17.5 HEMATOCRIT (BEAKER) (test fneo=724) 23.7 % 40.1-51.0 MEAN CORPUSCULAR VOLUME (BEAKER) (test utnn=625) 111.3 fL 79.0-92.2 MEAN CORPUSCULAR HEMOGLOBIN (BEAKER) (test 37.1 pg 25.7-32.2 kheh=817) MEAN CORPUSCULAR HEMOGLOBIN CONC (BEAKER) (test 33.3 GM/DL 32.3-36.5 mnxp=364) RED CELL DISTRIBUTION WIDTH (BEAKER) (test 15.8 % 11.6-14.4 ohbd=990) PLATELET COUNT (BEAKER) (test vsgp=830) 81 K/CU MM 150-450 MEAN PLATELET VOLUME (BEAKER) (test rfpc=831) 10.3 fL 9.4-12.4 NUCLEATED RED BLOOD CELLS (BEAKER) (test 0 /100 WBC 0-0 rknt=487) NEUTROPHILS RELATIVE PERCENT (BEAKER) (test 65 % phsq=730) LYMPHOCYTES RELATIVE PERCENT (BEAKER) (test 15 % xjpe=246) MONOCYTES RELATIVE PERCENT (BEAKER) (test 11 % flgx=072) EOSINOPHILS RELATIVE PERCENT (BEAKER) (test 7 % yvto=770) BASOPHILS RELATIVE PERCENT (BEAKER) (test 1 % tefv=685) NEUTROPHILS ABSOLUTE COUNT (BEAKER) (test 4.29 K/ L 1.78-5.38 qbtz=301) LYMPHOCYTES ABSOLUTE COUNT (BEAKER) (test 1.01 K/ L 1.32-3.57 uski=703) MONOCYTES ABSOLUTE COUNT (BEAKER) (test tadr=914) 0.75 K/ L 0.30-0.82 EOSINOPHILS ABSOLUTE COUNT (BEAKER) (test 0.49 K/ L 0.04-0.54 rttc=717) BASOPHILS ABSOLUTE COUNT (BEAKER) (test jasr=562) 0.05 K/ L 0.01-0.08 IMMATURE GRANULOCYTES-RELATIVE PERCENT (BEAKER) 1 % 0-1 (test dohq=8335) PROTHROMBIN [id number] 05:07:00 Test Item Value Reference Range Comments PROTIME (BEAKER) (test ypye=471) 24.2 seconds 11.9-14.2 INR (BEAKER) (test trwk=594) 2.3 <=5.9 Effective 09/16/2018: PT Reference Range ChangeNew: 11.9-14.2 Previous: 11.7- 14.7RECOMMENDED COUMADIN/WARFARIN INR THERAPY RANGESSTANDARD DOSE: 2.0-3.0 Includes: PROPHYLAXIS for venous thrombosis, systemic embolization; TREATMENT for venous thrombosis and/or pulmonary embolus.HIGH RISK: Target INR is2.5-3.5 for patients wiht mechanical heart valves.[id number] 05:10:00 Test Item Value Reference Range Comments MAGNESIUM (BEAKER) (test drft=892) 1.8 mg/dL 1.6-2.6 BASIC METABOLIC [id number] 05:10:00 Test Item Value Reference Range Comments SODIUM (BEAKER) (test 127 meq/L 136-145 otdr=391) POTASSIUM (BEAKER) (test 3.7 meq/L 3.5-5.1 dmvl=139) CHLORIDE (BEAKER) (test 94 meq/L 98-107 jcba=994) CO2 (BEAKER) (test 28 meq/L 22-29 sovo=467) BLOOD UREA NITROGEN 12 mg/dL 7-21 (BEAKER) (test albl=497) CREATININE (BEAKER) (test 0.73 mg/dL 0.57-1.25 xlqx=890) GLUCOSE RANDOM (BEAKER) 103 mg/dL 70-105 (test rllu=364) CALCIUM (BEAKER) (test 8.0 mg/dL 8.4-10.2 urdz=962) EGFR (BEAKER) (test 112 mL/min/1.73 sq m ESTIMATED GFR IS NOT trmr=3595) ACCURATE CREATININE CLEARANCE IN PREDICTING GLOMERULAR FILTRATION RATE. ESTIMATED GFR IS NOT APPLICABLE FOR DIALYSIS PATIENTS. Specimen moderately ictericHEPATIC FUNCTION [id number] 05:10:00 Test Item Value Reference Range Comments TOTAL PROTEIN (BEAKER) (test qfnw=261) 6.4 gm/dL 6.0-8.3 ALBUMIN (BEAKER) (test qkad=4684) 2.0 g/dL 3.5-5.0 BILIRUBIN TOTAL (BEAKER) (test ilsd=730) 7.8 mg/dL 0.2-1.2 BILIRUBIN DIRECT (BEAKER) (test cbug=346) 4.5 mg/dL 0.1-0.5 ALKALINE PHOSPHATASE (BEAKER) (test tepd=968) 297 U/L 40-150 AST (SGOT) (BEAKER) (test oplj=454) 117 U/L 5-34 ALT (SGPT) (BEAKER) (test wbep=107) 50 U/L 6-55 Specimen moderately ictericCBC W/PLT COUNT & AUTO [id number] 05: 04:00 Test Item Value Reference Range Comments WHITE BLOOD CELL COUNT (BEAKER) (test tqhc=112) 6.3 K/ L 3.5-10.5 RED BLOOD CELL COUNT (BEAKER) (test azxo=888) 2.14 M/ L 4.63-6.08 HEMOGLOBIN (BEAKER) (test xdrr=217) 8.0 GM/DL 13.7-17.5 HEMATOCRIT (BEAKER) (test scoh=321) 23.6 % 40.1-51.0 MEAN CORPUSCULAR VOLUME (BEAKER) (test dnmk=017) 110.3 fL 79.0-92.2 MEAN CORPUSCULAR HEMOGLOBIN (BEAKER) (test 37.4 pg 25.7-32.2 rdoe=102) MEAN CORPUSCULAR HEMOGLOBIN CONC (BEAKER) (test 33.9 GM/DL 32.3-36.5 usbr=065) RED CELL DISTRIBUTION WIDTH (BEAKER) (test 15.9 % 11.6-14.4 hhrk=717) PLATELET COUNT (BEAKER) (test behi=617) 73 K/CU MM 150-450 MEAN PLATELET VOLUME (BEAKER) (test dxoq=197) 9.7 fL 9.4-12.4 NUCLEATED RED BLOOD CELLS (BEAKER) (test 0 /100 WBC 0-0 uzfe=195) NEUTROPHILS RELATIVE PERCENT (BEAKER) (test 67 % ylvz=733) LYMPHOCYTES RELATIVE PERCENT (BEAKER) (test 14 % rsst=936) MONOCYTES RELATIVE PERCENT (BEAKER) (test 12 % wzby=268) EOSINOPHILS RELATIVE PERCENT (BEAKER) (test 6 % uucv=870) BASOPHILS RELATIVE PERCENT (BEAKER) (test 1 % nmqh=632) NEUTROPHILS ABSOLUTE COUNT (BEAKER) (test 4.18 K/ L 1.78-5.38 erdu=057) LYMPHOCYTES ABSOLUTE COUNT (BEAKER) (test 0.90 K/ L 1.32-3.57 hcwr=239) MONOCYTES ABSOLUTE COUNT (BEAKER) (test vzib=505) 0.77 K/ L 0.30-0.82 EOSINOPHILS ABSOLUTE COUNT (BEAKER) (test 0.36 K/ L 0.04-0.54 dqjv=644) BASOPHILS ABSOLUTE COUNT (BEAKER) (test ldxu=779) 0.04 K/ L 0.01-0.08 IMMATURE GRANULOCYTES-RELATIVE PERCENT (BEAKER) 1 % 0-1 (test ezqz=3175) PROTHROMBIN TIME/[id number] 04:42:00 Test Item Value Reference Range Comments PROTIME (BEAKER) (test trzs=248) 25.4 seconds 11.9-14.2 INR (BEAKER) (test lcdb=324) 2.5 <=5.9 Effective 09/16/2018: PT Reference Range ChangeNew: 11.9-14.2 Previous: 11.7- 14.7RECOMMENDED COUMADIN/WARFARIN INR THERAPY RANGESSTANDARD DOSE: 2.0-3.0 Includes: PROPHYLAXIS for venous thrombosis, systemic embolization; TREATMENT for venous thrombosis and/or pulmonary embolus.HIGH RISK: Target INR is2.5-3.5 for patients wiht mechanical heart valves.BLOOD [id number] 01:00:00 Test Item Value Reference Range Comments CULTURE (BEAKER) (test uwtl=4086) No growth in 5 days BLOOD [id number] 01:00:00 Test Item Value Reference Range Comments CULTURE (BEAKER) (test wntp=5900) No growth in 5 days PROTHROMBIN TIME/[id number] 07:37:00 Test Item Value Reference Range Comments PROTIME (BEAKER) (test dqbz=894) 23.8 seconds 11.9-14.2 INR (BEAKER) (test uqou=858) 2.3 <=5.9 Effective 09/16/2018: PT Reference Range ChangeNew: 11.9-14.2 Previous: 11.7- 14.7RECOMMENDED COUMADIN/WARFARIN INR THERAPY RANGESSTANDARD DOSE: 2.0-3.0 Includes: PROPHYLAXIS for venous thrombosis, systemic embolization; TREATMENT for venous thrombosis and/or pulmonary embolus.HIGH RISK: Target INR is2.5-3.5 for patients wiht mechanical heart valves.BASIC METABOLIC [id number] 06:37: 00 Test Item Value Reference Range Comments SODIUM (BEAKER) (test 126 meq/L 136-145 xzkj=913) POTASSIUM (BEAKER) (test 3.9 meq/L 3.5-5.1 lmph=203) CHLORIDE (BEAKER) (test 95 meq/L 98-107 xkqk=170) CO2 (BEAKER) (test 29 meq/L 22-29 ddyz=084) BLOOD UREA NITROGEN 11 mg/dL 7-21 (BEAKER) (test xnon=450) CREATININE (BEAKER) (test 0.76 mg/dL 0.57-1.25 iprb=882) GLUCOSE RANDOM (BEAKER) 99 mg/dL 70-105 (test exug=018) CALCIUM (BEAKER) (test 7.8 mg/dL 8.4-10.2 vfcp=039) EGFR (BEAKER) (test 107 mL/min/1.73 sq m ESTIMATED GFR IS NOT xpwh=6842) ACCURATE CREATININE CLEARANCE IN PREDICTING GLOMERULAR FILTRATION RATE. ESTIMATED GFR IS NOT APPLICABLE FOR DIALYSIS PATIENTS. Specimen moderately [id number] 06:13:00 Test Item Value Reference Range Comments MAGNESIUM (BEAKER) (test szuh=105) 1.9 mg/dL 1.6-2.6 HEPATIC FUNCTION [id number] 06:13:00 Test Item Value Reference Range Comments TOTAL PROTEIN (BEAKER) (test cygx=257) 6.6 gm/dL 6.0-8.3 ALBUMIN (BEAKER) (test mzgn=7655) 2.0 g/dL 3.5-5.0 BILIRUBIN TOTAL (BEAKER) (test oqss=259) 8.4 mg/dL 0.2-1.2 BILIRUBIN DIRECT (BEAKER) (test gdcs=148) 4.8 mg/dL 0.1-0.5 ALKALINE PHOSPHATASE (BEAKER) (test netp=416) 309 U/L 40-150 AST (SGOT) (BEAKER) (test qlml=012) 105 U/L 5-34 ALT (SGPT) (BEAKER) (test atpm=852) 46 U/L 6-55 Specimen moderately ictericCBC W/PLT COUNT & AUTO [id number] 05: 48:00 Test Item Value Reference Range Comments WHITE BLOOD CELL COUNT (BEAKER) (test liim=479) 6.9 K/ L 3.5-10.5 RED BLOOD CELL COUNT (BEAKER) (test fgls=105) 2.18 M/ L 4.63-6.08 HEMOGLOBIN (BEAKER) (test qzyn=869) 8.0 GM/DL 13.7-17.5 HEMATOCRIT (BEAKER) (test zots=452) 24.1 % 40.1-51.0 MEAN CORPUSCULAR VOLUME (BEAKER) (test emgb=359) 110.6 fL 79.0-92.2 MEAN CORPUSCULAR HEMOGLOBIN (BEAKER) (test 36.7 pg 25.7-32.2 fbrl=075) MEAN CORPUSCULAR HEMOGLOBIN CONC (BEAKER) (test 33.2 GM/DL 32.3-36.5 ompk=749) RED CELL DISTRIBUTION WIDTH (BEAKER) (test 15.8 % 11.6-14.4 wtdb=946) PLATELET COUNT (BEAKER) (test bcim=071) 75 K/CU MM 150-450 MEAN PLATELET VOLUME (BEAKER) (test chgs=988) 9.6 fL 9.4-12.4 NUCLEATED RED BLOOD CELLS (BEAKER) (test 0 /100 WBC 0-0 ippn=448) NEUTROPHILS RELATIVE PERCENT (BEAKER) (test 70 % brzt=020) LYMPHOCYTES RELATIVE PERCENT (BEAKER) (test 13 % apes=726) MONOCYTES RELATIVE PERCENT (BEAKER) (test 11 % okgg=257) EOSINOPHILS RELATIVE PERCENT (BEAKER) (test 5 % wezr=372) BASOPHILS RELATIVE PERCENT (BEAKER) (test 0 % gyvg=512) NEUTROPHILS ABSOLUTE COUNT (BEAKER) (test 4.82 K/ L 1.78-5.38 ayew=080) LYMPHOCYTES ABSOLUTE COUNT (BEAKER) (test 0.92 K/ L 1.32-3.57 ihdm=218) MONOCYTES ABSOLUTE COUNT (BEAKER) (test uilt=481) 0.73 K/ L 0.30-0.82 EOSINOPHILS ABSOLUTE COUNT (BEAKER) (test 0.37 K/ L 0.04-0.54 vstl=219) BASOPHILS ABSOLUTE COUNT (BEAKER) (test irer=392) 0.03 K/ L 0.01-0.08 IMMATURE GRANULOCYTES-RELATIVE PERCENT (BEAKER) 1 % 0-1 (test rrvj=4001) SODIUM, RANDOM [id number] 10:57:00 Test Item Value Reference Range Comments SODIUM URINE (BEAKER) (test anjj=317) 112 meq/L Reference Range: No NormalsOSMOLALITY, [id number] 09:41:00 Test Item Value Reference Range Comments OSMOLALITY URINE (BEAKER) (test ozcr=216) 384 mOsm/kg 40-1,400 BASIC METABOLIC [id number] 08:12:00 Test Item Value Reference Range Comments SODIUM (BEAKER) (test 123 meq/L 136-145 tawq=987) POTASSIUM (BEAKER) (test 3.7 meq/L 3.5-5.1 sooy=511) CHLORIDE (BEAKER) (test 93 meq/L 98-107 gkus=338) CO2 (BEAKER) (test 25 meq/L 22-29 zygr=252) BLOOD UREA NITROGEN 11 mg/dL 7-21 (BEAKER) (test hdky=540) CREATININE (BEAKER) (test 0.72 mg/dL 0.57-1.25 ysdq=705) GLUCOSE RANDOM (BEAKER) 110 mg/dL 70-105 (test kfxn=792) CALCIUM (BEAKER) (test 7.7 mg/dL 8.4-10.2 damm=755) EGFR (BEAKER) (test 114 mL/min/1.73 sq m ESTIMATED GFR IS NOT tqju=2106) ACCURATE CREATININE CLEARANCE IN PREDICTING GLOMERULAR FILTRATION RATE. ESTIMATED GFR IS NOT APPLICABLE FOR DIALYSIS PATIENTS. Specimen markedly [id number] 08:10:00 Test Item Value Reference Range Comments MAGNESIUM (BEAKER) (test vxif=425) 1.7 mg/dL 1.6-2.6 HEPATIC FUNCTION [id number] 08:10:00 Test Item Value Reference Range Comments TOTAL PROTEIN (BEAKER) (test zpqd=589) 7.1 gm/dL 6.0-8.3 ALBUMIN (BEAKER) (test vgfs=5939) 2.2 g/dL 3.5-5.0 BILIRUBIN TOTAL (BEAKER) (test vodp=324) 9.2 mg/dL 0.2-1.2 BILIRUBIN DIRECT (BEAKER) (test mvic=789) 5.0 mg/dL 0.1-0.5 ALKALINE PHOSPHATASE (BEAKER) (test rmza=292) 322 U/L 40-150 AST (SGOT) (BEAKER) (test jcmf=313) 106 U/L 5-34 ALT (SGPT) (BEAKER) (test lvwc=061) 48 U/L 6-55 Specimen markedly [id number] 08:08:00 Test Item Value Reference Range Comments ETHANOL (BEAKER) (test ekyi=484) < mg/dL <=10 PROTHROMBIN TIME/[id number] 07:56:00 Test Item Value Reference Range Comments PROTIME (BEAKER) (test ulqq=503) 24.3 seconds 11.9-14.2 INR (BEAKER) (test myce=811) 2.3 <=5.9 Effective 09/16/2018: PT Reference Range ChangeNew: 11.9-14.2 Previous: 11.7- 14.7RECOMMENDED COUMADIN/WARFARIN INR THERAPY RANGESSTANDARD DOSE: 2.0-3.0 Includes: PROPHYLAXIS for venous thrombosis, systemic embolization; TREATMENT for venous thrombosis and/or pulmonary embolus.HIGH RISK: Target INR is2.5-3.5 for patients wiht mechanical heart valves.CBC W/PLT COUNT & AUTO [id number] 07:50:00 Test Item Value Reference Range Comments WHITE BLOOD CELL COUNT (BEAKER) (test llot=548) 8.4 K/ L 3.5-10.5 RED BLOOD CELL COUNT (BEAKER) (test tcjj=841) 2.35 M/ L 4.63-6.08 HEMOGLOBIN (BEAKER) (test frfd=503) 8.8 GM/DL 13.7-17.5 HEMATOCRIT (BEAKER) (test ngtb=489) 25.8 % 40.1-51.0 MEAN CORPUSCULAR VOLUME (BEAKER) (test qibo=628) 109.8 fL 79.0-92.2 MEAN CORPUSCULAR HEMOGLOBIN (BEAKER) (test 37.4 pg 25.7-32.2 rnps=241) MEAN CORPUSCULAR HEMOGLOBIN CONC (BEAKER) (test 34.1 GM/DL 32.3-36.5 lfwc=829) RED CELL DISTRIBUTION WIDTH (BEAKER) (test 15.7 % 11.6-14.4 dfyk=071) PLATELET COUNT (BEAKER) (test xpze=752) 86 K/CU MM 150-450 MEAN PLATELET VOLUME (BEAKER) (test rdsa=504) 9.8 fL 9.4-12.4 NUCLEATED RED BLOOD CELLS (BEAKER) (test 0 /100 WBC 0-0 ajrc=423) NEUTROPHILS RELATIVE PERCENT (BEAKER) (test 74 % kvep=021) LYMPHOCYTES RELATIVE PERCENT (BEAKER) (test 12 % ulst=945) MONOCYTES RELATIVE PERCENT (BEAKER) (test 8 % numi=704) EOSINOPHILS RELATIVE PERCENT (BEAKER) (test 5 % vtir=833) BASOPHILS RELATIVE PERCENT (BEAKER) (test 1 % pdgt=696) NEUTROPHILS ABSOLUTE COUNT (BEAKER) (test 6.20 K/ L 1.78-5.38 vlks=533) LYMPHOCYTES ABSOLUTE COUNT (BEAKER) (test 1.01 K/ L 1.32-3.57 pqdj=957) MONOCYTES ABSOLUTE COUNT (BEAKER) (test wsqc=867) 0.65 K/ L 0.30-0.82 EOSINOPHILS ABSOLUTE COUNT (BEAKER) (test 0.44 K/ L 0.04-0.54 efcj=221) BASOPHILS ABSOLUTE COUNT (BEAKER) (test hkif=427) 0.06 K/ L 0.01-0.08 IMMATURE GRANULOCYTES-RELATIVE PERCENT (BEAKER) 1 % 0-1 (test nthz=1442) BASIC METABOLIC [id number] 15:29:00 Test Item Value Reference Range Comments SODIUM (BEAKER) (test 125 meq/L 136-145 znvc=781) POTASSIUM (BEAKER) (test 3.5 meq/L 3.5-5.1 ckzk=580) CHLORIDE (BEAKER) (test 93 meq/L 98-107 uojo=287) CO2 (BEAKER) (test 26 meq/L 22-29 zdfn=561) BLOOD UREA NITROGEN 11 mg/dL 7-21 (BEAKER) (test dskw=212) CREATININE (BEAKER) (test 0.74 mg/dL 0.57-1.25 lxjd=222) GLUCOSE RANDOM (BEAKER) 131 mg/dL 70-105 (test onqx=634) CALCIUM (BEAKER) (test 7.8 mg/dL 8.4-10.2 natu=284) EGFR (BEAKER) (test 111 mL/min/1.73 sq m ESTIMATED GFR IS NOT qqwc=1436) ACCURATE CREATININE CLEARANCE IN PREDICTING GLOMERULAR FILTRATION RATE. ESTIMATED GFR IS NOT APPLICABLE FOR DIALYSIS PATIENTS. Specimen moderately [id number] 15:26:00 Test Item Value Reference Range Comments MAGNESIUM (BEAKER) (test nwkm=189) 1.5 mg/dL 1.6-2.6 CBC W/PLT COUNT & AUTO [id number] 06:18:00 Test Item Value Reference Range Comments WHITE BLOOD CELL COUNT (BEAKER) (test rgxc=531) 4.1 K/ L 3.5-10.5 RED BLOOD CELL COUNT (BEAKER) (test ghsa=422) 2.05 M/ L 4.63-6.08 HEMOGLOBIN (BEAKER) (test vrbb=830) 7.5 GM/DL 13.7-17.5 HEMATOCRIT (BEAKER) (test lbtv=805) 22.5 % 40.1-51.0 MEAN CORPUSCULAR VOLUME (BEAKER) (test iibn=370) 109.8 fL 79.0-92.2 MEAN CORPUSCULAR HEMOGLOBIN (BEAKER) (test 36.6 pg 25.7-32.2 yipn=827) MEAN CORPUSCULAR HEMOGLOBIN CONC (BEAKER) (test 33.3 GM/DL 32.3-36.5 nnno=557) RED CELL DISTRIBUTION WIDTH (BEAKER) (test 15.4 % 11.6-14.4 owzr=518) PLATELET COUNT (BEAKER) (test cdrm=318) 58 K/CU MM 150-450 MEAN PLATELET VOLUME (BEAKER) (test kbpk=570) 9.8 fL 9.4-12.4 NUCLEATED RED BLOOD CELLS (BEAKER) (test 0 /100 WBC 0-0 jopv=943) NEUTROPHILS RELATIVE PERCENT (BEAKER) (test 63 % boji=713) LYMPHOCYTES RELATIVE PERCENT (BEAKER) (test 19 % hhri=378) MONOCYTES RELATIVE PERCENT (BEAKER) (test 9 % txna=099) EOSINOPHILS RELATIVE PERCENT (BEAKER) (test 8 % oobc=666) BASOPHILS RELATIVE PERCENT (BEAKER) (test 1 % rxez=861) NEUTROPHILS ABSOLUTE COUNT (BEAKER) (test 2.58 K/ L 1.78-5.38 vbcz=962) LYMPHOCYTES ABSOLUTE COUNT (BEAKER) (test 0.76 K/ L 1.32-3.57 oqck=277) MONOCYTES ABSOLUTE COUNT (BEAKER) (test pdck=213) 0.36 K/ L 0.30-0.82 EOSINOPHILS ABSOLUTE COUNT (BEAKER) (test 0.34 K/ L 0.04-0.54 casd=357) BASOPHILS ABSOLUTE COUNT (BEAKER) (test uizp=649) 0.02 K/ L 0.01-0.08 IMMATURE GRANULOCYTES-RELATIVE PERCENT (BEAKER) 1 % 0-1 (test ksuf=2383) [id number] 05:30:00 Test Item Value Reference Range Comments PHOSPHORUS (BEAKER) (test ueak=672) 2.8 mg/dL 2.3-4.7 [id number] 05:30:00 Test Item Value Reference Range Comments MAGNESIUM (BEAKER) (test adpo=833) 1.7 mg/dL 1.6-2.6 HEPATIC FUNCTION [id number] 05:30:00 Test Item Value Reference Range Comments TOTAL PROTEIN (BEAKER) (test woqj=248) 6.1 gm/dL 6.0-8.3 ALBUMIN (BEAKER) (test jymq=3356) 1.9 g/dL 3.5-5.0 BILIRUBIN TOTAL (BEAKER) (test hwxi=589) 7.7 mg/dL 0.2-1.2 BILIRUBIN DIRECT (BEAKER) (test mkdo=263) 4.0 mg/dL 0.1-0.5 ALKALINE PHOSPHATASE (BEAKER) (test rias=149) 290 U/L 40-150 AST (SGOT) (BEAKER) (test jlhc=857) 76 U/L 5-34 ALT (SGPT) (BEAKER) (test xzxv=850) 34 U/L 6-55 Specimen moderately ictericBASIC METABOLIC [id number] 05:30:00 Test Item Value Reference Range Comments SODIUM (BEAKER) (test 130 meq/L 136-145 huzv=691) POTASSIUM (BEAKER) (test 3.7 meq/L 3.5-5.1 qlyr=056) CHLORIDE (BEAKER) (test 100 meq/L 98-107 wvtz=079) CO2 (BEAKER) (test 27 meq/L 22-29 wbsu=543) BLOOD UREA NITROGEN 10 mg/dL 7-21 (BEAKER) (test onms=484) CREATININE (BEAKER) (test 0.82 mg/dL 0.57-1.25 ipvy=951) GLUCOSE RANDOM (BEAKER) 97 mg/dL 70-105 (test dxxa=031) CALCIUM (BEAKER) (test 7.6 mg/dL 8.4-10.2 qwzr=306) EGFR (BEAKER) (test 98 mL/min/1.73 sq m ESTIMATED GFR IS NOT whzz=7028) ACCURATE CREATININE CLEARANCE IN PREDICTING GLOMERULAR FILTRATION RATE. ESTIMATED GFR IS NOT APPLICABLE FOR DIALYSIS PATIENTS. Specimen moderately ictericPROTHROMBIN TIME/[id number] 05:19:00 Test Item Value Reference Range Comments PROTIME (BEAKER) (test rnwh=350) 27.0 seconds 11.9-14.2 INR (BEAKER) (test qmpc=477) 2.7 <=5.9 Effective 09/16/2018: PT Reference Range ChangeNew: 11.9-14.2 Previous: 11.7- 14.7RECOMMENDED COUMADIN/WARFARIN INR THERAPY RANGESSTANDARD DOSE: 2.0-3.0 Includes: PROPHYLAXIS for venous thrombosis, systemic embolization; TREATMENT for venous thrombosis and/or pulmonary embolus.HIGH RISK: Target INR is2.5-3.5 for patients wiht mechanical heart valves.U/S, ABDOMINAL, [id number] 18: 29:00Labs to be ordered:->Body Fluid Culture (w/Gram Stain, C\T\S)Reason for exam:->alcoholic cirrhosis with ascitesFINAL REPORT History: Ascites. PROCEDURE: Limited sonographic examination of the abdomen was performed in preparation for planned ultrasound-guided paracentesis. There was no fluid for drainage. Paracentesis was not performed. IMPRESSION: 1. No ascites , paracentesis was not performed. Signed: Yoandy Eli MDReport Verified Date/ Time: 03/12/2019 18:29:11 Reading Location: [place] [id number] Ultrasound Reading Room BASI METABOLIC [id number] 10:52:00 Test Item Value Reference Range Comments SODIUM (BEAKER) (test 132 meq/L 136-145 jqiv=127) POTASSIUM (BEAKER) (test 4.0 meq/L 3.5-5.1 dstf=740) CHLORIDE (BEAKER) (test 103 meq/L 98-107 birr=032) CO2 (BEAKER) (test 27 meq/L 22-29 lwng=465) BLOOD UREA NITROGEN 10 mg/dL 7-21 (BEAKER) (test firy=896) CREATININE (BEAKER) (test 0.76 mg/dL 0.57-1.25 tgsm=667) GLUCOSE RANDOM (BEAKER) 95 mg/dL 70-105 (test whst=148) CALCIUM (BEAKER) (test 7.4 mg/dL 8.4-10.2 cmlf=238) EGFR (BEAKER) (test 107 mL/min/1.73 sq m ESTIMATED GFR IS NOT jxif=5266) ACCURATE CREATININE CLEARANCE IN PREDICTING GLOMERULAR FILTRATION RATE. ESTIMATED GFR IS NOT APPLICABLE FOR DIALYSIS PATIENTS. Specimen moderately ictericHEPATIC FUNCTION [id number] 10:52:00 Test Item Value Reference Range Comments TOTAL PROTEIN (BEAKER) (test whwq=029) 6.0 gm/dL 6.0-8.3 ALBUMIN (BEAKER) (test fozb=5186) 1.9 g/dL 3.5-5.0 BILIRUBIN TOTAL (BEAKER) (test sxgj=100) 6.9 mg/dL 0.2-1.2 BILIRUBIN DIRECT (BEAKER) (test zotw=078) 4.0 mg/dL 0.1-0.5 ALKALINE PHOSPHATASE (BEAKER) (test zcqb=618) 277 U/L 40-150 AST (SGOT) (BEAKER) (test jmok=905) 74 U/L 5-34 ALT (SGPT) (BEAKER) (test nqyd=959) 32 U/L 6-55 Specimen moderately [id number] 10:51:00 Test Item Value Reference Range Comments PHOSPHORUS (BEAKER) (test uwvk=698) 2.7 mg/dL 2.3-4.7 [id number] 10:51:00 Test Item Value Reference Range Comments MAGNESIUM (BEAKER) (test agcj=316) 1.7 mg/dL 1.6-2.6 CBC W/PLT COUNT & AUTO [id number] 07:05:00 Test Item Value Reference Range Comments WHITE BLOOD CELL COUNT (BEAKER) (test jutv=689) 4.1 K/ L 3.5-10.5 RED BLOOD CELL COUNT (BEAKER) (test yifd=430) 2.04 M/ L 4.63-6.08 HEMOGLOBIN (BEAKER) (test dwqx=417) 7.5 GM/DL 13.7-17.5 HEMATOCRIT (BEAKER) (test ualz=119) 22.7 % 40.1-51.0 MEAN CORPUSCULAR VOLUME (BEAKER) (test dnzb=888) 111.3 fL 79.0-92.2 MEAN CORPUSCULAR HEMOGLOBIN (BEAKER) (test 36.8 pg 25.7-32.2 uwoa=144) MEAN CORPUSCULAR HEMOGLOBIN CONC (BEAKER) (test 33.0 GM/DL 32.3-36.5 bwnj=234) RED CELL DISTRIBUTION WIDTH (BEAKER) (test 15.6 % 11.6-14.4 bhvc=493) PLATELET COUNT (BEAKER) (test bvab=758) 52 K/CU MM 150-450 MEAN PLATELET VOLUME (BEAKER) (test snov=927) 9.1 fL 9.4-12.4 NUCLEATED RED BLOOD CELLS (BEAKER) (test 0 /100 WBC 0-0 lsrh=015) NEUTROPHILS RELATIVE PERCENT (BEAKER) (test 62 % xilx=145) LYMPHOCYTES RELATIVE PERCENT (BEAKER) (test 21 % mwgp=067) MONOCYTES RELATIVE PERCENT (BEAKER) (test 11 % eqbx=310) EOSINOPHILS RELATIVE PERCENT (BEAKER) (test 5 % skox=047) BASOPHILS RELATIVE PERCENT (BEAKER) (test 1 % btcx=894) NEUTROPHILS ABSOLUTE COUNT (BEAKER) (test 2.55 K/ L 1.78-5.38 pkhj=229) LYMPHOCYTES ABSOLUTE COUNT (BEAKER) (test 0.86 K/ L 1.32-3.57 rlmk=343) MONOCYTES ABSOLUTE COUNT (BEAKER) (test gcmh=423) 0.44 K/ L 0.30-0.82 EOSINOPHILS ABSOLUTE COUNT (BEAKER) (test 0.22 K/ L 0.04-0.54 cqjd=855) BASOPHILS ABSOLUTE COUNT (BEAKER) (test blpr=552) 0.02 K/ L 0.01-0.08 IMMATURE GRANULOCYTES-RELATIVE PERCENT (BEAKER) 1 % 0-1 (test yjtz=5800) PROTHROMBIN [id number] 06:36:00 Test Item Value Reference Range Comments PROTIME (BEAKER) (test crgg=195) 27.0 seconds 11.9-14.2 INR (BEAKER) (test calc=135) 2.6 <=5.9 Effective 09/16/2018: PT Reference Range ChangeNew: 11.9-14.2 Previous: 11.7- 14.7RECOMMENDED COUMADIN/WARFARIN INR THERAPY RANGESSTANDARD DOSE: 2.0-3.0 Includes: PROPHYLAXIS for venous thrombosis, systemic embolization; TREATMENT for venous thrombosis and/or pulmonary embolus.HIGH RISK: Target INR is2.5-3.5 for patients wiht mechanical heart valves.PROTEIN, RANDOM [id number] 21:30: 00 Test Item Value Reference Range Comments PROTEIN, URINE (BEAKER) (test lprb=6387) < mg/dL 0-14 CREATININE, RANDOM [id number] 21:27:00 Test Item Value Reference Range Comments CREATININE URINE (BEAKER) (test ljcp=453) 161.5 mg/dL Reference Range: No NormalsSODIUM, RANDOM [id number] 21:27:00 Test Item Value Reference Range Comments SODIUM URINE (BEAKER) (test lvrq=677) 122 meq/L Reference Range: No NormalsURINALYSIS W/ [id number] 21:23:00 Test Item Value Reference Range Comments COLOR (BEAKER) (test cmot=995) Dark Yellow CLARITY (BEAKER) (test ypky=805) Clear SPECIFIC GRAVITY UA (BEAKER) (test gadn=379) 1.023 1.001-1.035 PH UA (BEAKER) (test ikwj=748) 6.5 5.0-8.0 PROTEIN UA (BEAKER) (test haaa=349) 10 mg/dL Negative GLUCOSE UA (BEAKER) (test dafm=708) Negative Negative KETONES UA (BEAKER) (test whzs=356) Negative Negative BILIRUBIN UA (BEAKER) (test xldk=403) Positive Negative BLOOD UA (BEAKER) (test pjbe=947) Negative Negative NITRITE UA (BEAKER) (test ynym=654) Negative Negative LEUKOCYTE ESTERASE UA (BEAKER) (test tugz=726) Negative Negative UROBILINOGEN UA (BEAKER) (test rhcv=044) > mg/dL 0.2-1.0 RBC UA (BEAKER) (test uoyw=664) < /HPF WBC UA (BEAKER) (test yglx=828) 6 /HPF MUCUS (BEAKER) (test prly=7476) Many SQUAMOUS EPITHELIAL (BEAKER) (test qsod=840) < /HPF HYALINE CASTS (BEAKER) (test ueuq=683) 14 /LPF SOURCE(BEAKER) (test jpxp=4711) URINALYSIS W/ REFLEX URINE [id number] 21:23:00 Test Item Value Reference Range Comments COLOR (BEAKER) (test atum=394) Dark Yellow CLARITY (BEAKER) (test lrte=430) Clear SPECIFIC GRAVITY UA (BEAKER) (test untg=074) 1.023 1.001-1.035 PH UA (BEAKER) (test ufho=046) 6.5 5.0-8.0 PROTEIN UA (BEAKER) (test nnov=537) 10 mg/dL Negative GLUCOSE UA (BEAKER) (test pvrg=062) Negative Negative KETONES UA (BEAKER) (test rymo=130) Negative Negative BILIRUBIN UA (BEAKER) (test xlia=149) Positive Negative BLOOD UA (BEAKER) (test ozgr=007) Negative Negative NITRITE UA (BEAKER) (test sark=202) Negative Negative LEUKOCYTE ESTERASE UA (BEAKER) (test tkov=791) Negative Negative UROBILINOGEN UA (BEAKER) (test vpdi=434) > mg/dL 0.2-1.0 RBC UA (BEAKER) (test fbph=682) < /HPF WBC UA (BEAKER) (test mmua=375) 6 /HPF MUCUS (BEAKER) (test wgna=8935) Many SQUAMOUS EPITHELIAL (BEAKER) (test fqbg=940) < /HPF HYALINE CASTS (BEAKER) (test kfnk=542) 14 /LPF SOURCE(BEAKER) (test waow=2507) BASIC METABOLIC [id number] 05:54:00 Test Item Value Reference Range Comments SODIUM (BEAKER) (test 132 meq/L 136-145 ratc=229) POTASSIUM (BEAKER) (test 3.7 meq/L 3.5-5.1 bglk=531) CHLORIDE (BEAKER) (test 102 meq/L 98-107 fqay=260) CO2 (BEAKER) (test 25 meq/L 22-29 rzbk=225) BLOOD UREA NITROGEN 9 mg/dL 7-21 (BEAKER) (test sfxn=998) CREATININE (BEAKER) (test 0.75 mg/dL 0.57-1.25 yhgq=912) GLUCOSE RANDOM (BEAKER) 86 mg/dL 70-105 (test gnwb=353) CALCIUM (BEAKER) (test 7.8 mg/dL 8.4-10.2 whpb=530) EGFR (BEAKER) (test 109 mL/min/1.73 sq m ESTIMATED GFR IS NOT riok=6214) ACCURATE CREATININE CLEARANCE IN PREDICTING GLOMERULAR FILTRATION RATE. ESTIMATED GFR IS NOT APPLICABLE FOR DIALYSIS PATIENTS. Specimen moderately ictericHEPATIC FUNCTION [id number] 05:54:00 Test Item Value Reference Range Comments TOTAL PROTEIN (BEAKER) (test ndwm=376) 6.2 gm/dL 6.0-8.3 ALBUMIN (BEAKER) (test ossj=4651) 1.9 g/dL 3.5-5.0 BILIRUBIN TOTAL (BEAKER) (test qaxs=795) 7.1 mg/dL 0.2-1.2 BILIRUBIN DIRECT (BEAKER) (test msun=445) 4.0 mg/dL 0.1-0.5 ALKALINE PHOSPHATASE (BEAKER) (test slgz=398) 293 U/L 40-150 AST (SGOT) (BEAKER) (test erys=809) 84 U/L 5-34 ALT (SGPT) (BEAKER) (test gvgq=236) 36 U/L 6-55 Specimen moderately [id number] 05:52:00 Test Item Value Reference Range Comments PHOSPHORUS (BEAKER) (test ibnh=190) 3.2 mg/dL 2.3-4.7 [id number] 05:52:00 Test Item Value Reference Range Comments MAGNESIUM (BEAKER) (test whls=403) 1.6 mg/dL 1.6-2.6 CBC W/PLT COUNT & AUTO [id number] 05:46:00 Test Item Value Reference Range Comments WHITE BLOOD CELL COUNT (BEAKER) (test rmbs=127) 4.6 K/ L 3.5-10.5 RED BLOOD CELL COUNT (BEAKER) (test cgfg=796) 2.15 M/ L 4.63-6.08 HEMOGLOBIN (BEAKER) (test zbnz=794) 7.8 GM/DL 13.7-17.5 HEMATOCRIT (BEAKER) (test tlnc=507) 23.4 % 40.1-51.0 MEAN CORPUSCULAR VOLUME (BEAKER) (test qsnr=854) 108.8 fL 79.0-92.2 MEAN CORPUSCULAR HEMOGLOBIN (BEAKER) (test 36.3 pg 25.7-32.2 mshr=480) MEAN CORPUSCULAR HEMOGLOBIN CONC (BEAKER) (test 33.3 GM/DL 32.3-36.5 cphj=913) RED CELL DISTRIBUTION WIDTH (BEAKER) (test 15.5 % 11.6-14.4 wpxd=741) PLATELET COUNT (BEAKER) (test zfpl=632) 64 K/CU MM 150-450 MEAN PLATELET VOLUME (BEAKER) (test zhdw=106) 9.3 fL 9.4-12.4 NUCLEATED RED BLOOD CELLS (BEAKER) (test 0 /100 WBC 0-0 iwaz=985) NEUTROPHILS RELATIVE PERCENT (BEAKER) (test 63 % wznv=999) LYMPHOCYTES RELATIVE PERCENT (BEAKER) (test 20 % egka=080) MONOCYTES RELATIVE PERCENT (BEAKER) (test 11 % wgib=927) EOSINOPHILS RELATIVE PERCENT (BEAKER) (test 4 % mjfl=437) BASOPHILS RELATIVE PERCENT (BEAKER) (test 1 % vxnb=317) NEUTROPHILS ABSOLUTE COUNT (BEAKER) (test 2.89 K/ L 1.78-5.38 urxk=799) LYMPHOCYTES ABSOLUTE COUNT (BEAKER) (test 0.93 K/ L 1.32-3.57 ujhl=430) MONOCYTES ABSOLUTE COUNT (BEAKER) (test vjgg=260) 0.52 K/ L 0.30-0.82 EOSINOPHILS ABSOLUTE COUNT (BEAKER) (test 0.20 K/ L 0.04-0.54 qniv=002) BASOPHILS ABSOLUTE COUNT (BEAKER) (test xmui=555) 0.03 K/ L 0.01-0.08 IMMATURE GRANULOCYTES-RELATIVE PERCENT (BEAKER) 0 % 0-1 (test bffw=1220) PROTHROMBIN [id number] 05:22:00 Test Item Value Reference Range Comments PROTIME (BEAKER) (test ldbu=486) 26.0 seconds 11.9-14.2 INR (BEAKER) (test xnta=955) 2.5 <=5.9 Effective 09/16/2018: PT Reference Range ChangeNew: 11.9-14.2 Previous: 11.7- 14.7RECOMMENDED COUMADIN/WARFARIN INR THERAPY RANGESSTANDARD DOSE: 2.0-3.0 Includes: PROPHYLAXIS for venous thrombosis, systemic embolization; TREATMENT for venous thrombosis and/or pulmonary embolus.HIGH RISK: Target INR is2.5-3.5 for patients wiht mechanical heart valves.URINALYSIS WITH MICROSCOPIC IF [id number] 20:11:00 Test Item Value Reference Range Comments COLOR (BEAKER) (test nygg=600) Dark Yellow CLARITY (BEAKER) (test enmn=765) Clear SPECIFIC GRAVITY UA (BEAKER) (test fxvs=744) 1.016 1.001-1.035 PH UA (BEAKER) (test vzxl=662) 5.5 5.0-8.0 PROTEIN UA (BEAKER) (test ikss=836) Negative Negative GLUCOSE UA (BEAKER) (test hsal=171) Negative Negative KETONES UA (BEAKER) (test vcrr=350) Negative Negative BILIRUBIN UA (BEAKER) (test wvtb=513) Positive Negative BLOOD UA (BEAKER) (test dyqz=157) Negative Negative NITRITE UA (BEAKER) (test npju=948) Negative Negative LEUKOCYTE ESTERASE UA (BEAKER) (test auzu=522) Negative Negative UROBILINOGEN UA (BEAKER) (test skjb=672) 6.0 mg/dL 0.2-1.0 SOURCE(BEAKER) (test aegb=6172) [id number] 20:03:00 Test Item Value Reference Range Comments PROTIME (BEAKER) (test anxa=873) 25.3 seconds 11.9-14.2 INR (BEAKER) (test qosx=089) 2.5 <=5.9 PARTIAL THROMBOPLASTIN TIME (BEAKER) (test 46.2 seconds 22.5-36.0 jhov=325) Effective 09/16/2018: PT Reference Range ChangeNew: 11.9-14.2 Previous: 11.7- 14.7RECOMMENDED COUMADIN/WARFARIN INR THERAPY RANGESSTANDARD DOSE: 2.0-3.0 Includes: PROPHYLAXIS for venous thrombosis, systemic embolization; TREATMENT for venous thrombosis and/or pulmonary embolus.HIGH RISK: Target INR is2.5-3.5 for patients wiht mechanical heart valves.TROPONIN [id number] 20:00:00 Test Item Value Reference Range Comments TROPONIN I (BEAKER) (test jpsr=842) 0.02 ng/mL 0.00-0.03 Troponin I (TnI) levels must be interpreted in the context of the presenting symptoms and the clinical findings. Elevated TnI levels indicate myocardial damage, but are not specific for ischemic heart disease. Elevated TnI levels are seen in patients with other cardiac conditions (including myocarditis and congestive heart failure), and slight TnI elevations occur in patients with other conditions, including sepsis, renal failure, acidosis, acute neurological disease, and persistent tachyarrhythmia.B-TYPE NATRIURETIC FACTOR (BNP) 19:59:00 Test Item Value Reference Range Comments B-TYPE NATRIURETIC PEPTIDE (BEAKER) (test ydly=475) 90 pg/mL 0-100 [id number] 19:53:00 Test Item Value Reference Range Comments MAGNESIUM (BEAKER) (test dcyt=254) 1.5 mg/dL 1.6-2.6 BASIC METABOLIC [id number] 19:53:00 Test Item Value Reference Range Comments SODIUM (BEAKER) (test 131 meq/L 136-145 fwhb=732) POTASSIUM (BEAKER) (test 3.9 meq/L 3.5-5.1 ctfh=088) CHLORIDE (BEAKER) (test 103 meq/L 98-107 zqcl=114) CO2 (BEAKER) (test 22 meq/L 22-29 efbr=998) BLOOD UREA NITROGEN 9 mg/dL 7-21 (BEAKER) (test cmdv=577) CREATININE (BEAKER) (test 0.81 mg/dL 0.57-1.25 wcqa=051) GLUCOSE RANDOM (BEAKER) 132 mg/dL 70-105 (test rnzx=167) CALCIUM (BEAKER) (test 8.0 mg/dL 8.4-10.2 jtkc=146) EGFR (BEAKER) (test 100 mL/min/1.73 sq m ESTIMATED GFR IS NOT eiow=0231) ACCURATE CREATININE CLEARANCE IN PREDICTING GLOMERULAR FILTRATION RATE. ESTIMATED GFR IS NOT APPLICABLE FOR DIALYSIS PATIENTS. Specimen moderately ictericHEPATIC FUNCTION [id number] 19:53:00 Test Item Value Reference Range Comments TOTAL PROTEIN (BEAKER) (test pjha=922) 6.8 gm/dL 6.0-8.3 ALBUMIN (BEAKER) (test waio=5629) 2.1 g/dL 3.5-5.0 BILIRUBIN TOTAL (BEAKER) (test aaiz=124) 7.8 mg/dL 0.2-1.2 BILIRUBIN DIRECT (BEAKER) (test zvjh=452) 4.1 mg/dL 0.1-0.5 ALKALINE PHOSPHATASE (BEAKER) (test obag=564) 330 U/L 40-150 AST (SGOT) (BEAKER) (test uihs=455) 86 U/L 5-34 ALT (SGPT) (BEAKER) (test pwgd=746) 36 U/L 6-55 Specimen moderately ictericCBC W/PLT COUNT & AUTO [id number] 19: 43:00 Test Item Value Reference Range Comments WHITE BLOOD CELL COUNT (BEAKER) (test gegj=665) 5.1 K/ L 3.5-10.5 RED BLOOD CELL COUNT (BEAKER) (test kxyr=200) 2.30 M/ L 4.63-6.08 HEMOGLOBIN (BEAKER) (test ccyi=582) 8.6 GM/DL 13.7-17.5 HEMATOCRIT (BEAKER) (test mooo=685) 25.5 % 40.1-51.0 MEAN CORPUSCULAR VOLUME (BEAKER) (test qozj=953) 110.9 fL 79.0-92.2 MEAN CORPUSCULAR HEMOGLOBIN (BEAKER) (test 37.4 pg 25.7-32.2 fzcc=753) MEAN CORPUSCULAR HEMOGLOBIN CONC (BEAKER) (test 33.7 GM/DL 32.3-36.5 nuvp=064) RED CELL DISTRIBUTION WIDTH (BEAKER) (test 15.5 % 11.6-14.4 zzqj=167) PLATELET COUNT (BEAKER) (test tuia=833) 70 K/CU MM 150-450 MEAN PLATELET VOLUME (BEAKER) (test fqxn=025) 9.7 fL 9.4-12.4 NUCLEATED RED BLOOD CELLS (BEAKER) (test 0 /100 WBC 0-0 eacg=830) NEUTROPHILS RELATIVE PERCENT (BEAKER) (test 74 % odku=962) LYMPHOCYTES RELATIVE PERCENT (BEAKER) (test 12 % yqsm=449) MONOCYTES RELATIVE PERCENT (BEAKER) (test 9 % rttu=882) EOSINOPHILS RELATIVE PERCENT (BEAKER) (test 3 % pmkj=981) BASOPHILS RELATIVE PERCENT (BEAKER) (test 0 % cdtq=179) NEUTROPHILS ABSOLUTE COUNT (BEAKER) (test 3.76 K/ L 1.78-5.38 erun=949) LYMPHOCYTES ABSOLUTE COUNT (BEAKER) (test 0.62 K/ L 1.32-3.57 kagx=824) MONOCYTES ABSOLUTE COUNT (BEAKER) (test kzsh=978) 0.47 K/ L 0.30-0.82 EOSINOPHILS ABSOLUTE COUNT (BEAKER) (test 0.15 K/ L 0.04-0.54 mggh=083) BASOPHILS ABSOLUTE COUNT (BEAKER) (test hizb=388) 0.02 K/ L 0.01-0.08 IMMATURE GRANULOCYTES-RELATIVE PERCENT (BEAKER) 1 % 0-1 (test tdun=0924) RAD, CHEST, 1 VIEW, NON [id number] 17:41:00Reason for exam:->SOBFINAL REPORT INDICATION: SOB TECHNIQUE: Chest radiograph, single view, portable technique. FINDINGS / IMPRESSION: No pulmonary edema or pneumonia is demonstrated.Cardiac mediastinal contours unremarkable for portable technique.No pneumothorax or pleural effusion demonstrated.Osseous structures unremarkable. Signed: Gregorio Lott MDReport Verified Date/Time: 03/10/2019 17:41:36 Reading Location: [facility] Mammo Reading Room TISSUE [id number] 16:20:00Surgical Pathology Report Case: [id number] Authorizing Provider: Aly Iglesias MD Collected: 01/18/2019 1020 Ordering Location: [facility] Received: 01/18/2019 1603 Pathologist: Mikey Gonzales MD Specimens: A) - Small Bowel, NOS, BX B) - Antrum, BX A. SMALL BOWEL NOS, BIOPSY- DUODENAL MUCOSA WITH NO DIAGNOSTIC ALTERATIONB. STOMACH, ANTRUM, BIOPSY- CHRONIC INACTIVE GASTRITIS, MINIMAL-MILD- VASCULAR ECTASIA, MILD ( SEE COMMENT)- NO INTESTINAL METAPLASIA, DYSPLASIA OR INVASIVE CARCINOMA IDENTIIFIED- NO HELICOBACTER PYLORI LIKE ORGANISMS IDENTIFIED ON WARTHIN STARRY STAIN Signing Pathologist Direct Phone Line: [phone] Mild vascular ectasia is present and although non-specific, is suggestive of portal hypertensive gastropathy in this clinical setting.68412 X 2, 14294Pudbypwnx ( alcohol), portal hypertension, Esophageal varicesA. Small bowel. B. [...] the use of immunohistochemistry or special stains.Control SlidesExamined: In-house known positive controls were evaluated along with the test tissue. These control slides run alongside of the patients sample show appropriate staining. Internal positive and negative controls when available are evaluated Immunohistochemistry technical testing was performed at [facility], Pathology Laboratory where it was developed and [...] the Clinical Laboratory Improvement Amendments of 1988 (CLIA-88 ) as qualified to perform high complexity clinical laboratory testing.[facility], Department of Pathology,[address] [place] [address], [facility], [facility], [address] [place] [address], [facility], [facility] of [facility], [address] [place] [address], AQECS METABOLIC [id number] 17:29:00 Test Item Value Reference Range Comments SODIUM (BEAKER) (test 133 meq/L 136-145 mjti=045) POTASSIUM (BEAKER) (test 4.5 meq/L 3.5-5.1 nasp=534) CHLORIDE (BEAKER) (test 97 meq/L 98-107 bsqe=115) CO2 (BEAKER) (test 31 meq/L 22-29 dxok=316) BLOOD UREA NITROGEN 14 mg/dL 7-21 (BEAKER) (test llib=840) CREATININE (BEAKER) (test 0.99 mg/dL 0.57-1.25 njjw=297) GLUCOSE RANDOM (BEAKER) 83 mg/dL 70-105 (test ntsm=836) CALCIUM (BEAKER) (test 9.1 mg/dL 8.4-10.2 thsx=625) EGFR (BEAKER) (test 79 mL/min/1.73 sq m ESTIMATED GFR IS NOT xxjt=6613) ACCURATE CREATININE CLEARANCE IN PREDICTING GLOMERULAR FILTRATION RATE. ESTIMATED GFR IS NOT APPLICABLE FOR DIALYSIS PATIENTS. Specimen moderately ictericHEPATIC FUNCTION [id number] 17:29:00 Test Item Value Reference Range Comments TOTAL PROTEIN (BEAKER) (test xhmc=043) 8.5 gm/dL 6.0-8.3 ALBUMIN (BEAKER) (test pihi=0941) 2.7 g/dL 3.5-5.0 BILIRUBIN TOTAL (BEAKER) (test krqb=924) 6.4 mg/dL 0.2-1.2 BILIRUBIN DIRECT (BEAKER) (test hoek=121) 3.2 mg/dL 0.1-0.5 ALKALINE PHOSPHATASE (BEAKER) (test kmtd=451) 200 U/L 40-150 AST (SGOT) (BEAKER) (test cqpa=260) 98 U/L 5-34 ALT (SGPT) (BEAKER) (test mlvn=272) 18 U/L 6-55 Specimen moderately ictericPROTHROMBIN [id number] 17:15:00 Test Item Value Reference Range Comments PROTIME (BEAKER) (test zxxa=095) 24.2 seconds 11.9-14.2 INR (BEAKER) (test xvai=725) 2.3 <=5.9 Effective 09/16/2018: PT Reference Range ChangeNew: 11.9-14.2 Previous: 11.7- 14.7RECOMMENDED COUMADIN/WARFARIN INR THERAPY RANGESSTANDARD DOSE: 2.0-3.0 Includes: PROPHYLAXIS for venous thrombosis, systemic embolization; TREATMENT for venous thrombosis and/or pulmonary embolus.HIGH RISK: Target INR is2.5-3.5 for patients wiht mechanical heart valves.CBC W/PLT COUNT & AUTO [id number] 17:10:00 Test Item Value Reference Range Comments WHITE BLOOD CELL COUNT (BEAKER) (test lkrj=338) 5.4 K/ L 3.5-10.5 RED BLOOD CELL COUNT (BEAKER) (test ngpe=963) 2.48 M/ L 4.63-6.08 HEMOGLOBIN (BEAKER) (test lzku=458) 9.1 GM/DL 13.7-17.5 HEMATOCRIT (BEAKER) (test fvrq=696) 27.5 % 40.1-51.0 MEAN CORPUSCULAR VOLUME (BEAKER) (test esqw=364) 110.9 fL 79.0-92.2 MEAN CORPUSCULAR HEMOGLOBIN (BEAKER) (test 36.7 pg 25.7-32.2 vlzz=429) MEAN CORPUSCULAR HEMOGLOBIN CONC (BEAKER) (test 33.1 GM/DL 32.3-36.5 ffep=078) RED CELL DISTRIBUTION WIDTH (BEAKER) (test 15.8 % 11.6-14.4 mpja=084) PLATELET COUNT (BEAKER) (test xkmh=368) 83 K/CU MM 150-450 MEAN PLATELET VOLUME (BEAKER) (test ipey=837) 11.5 fL 9.4-12.4 NUCLEATED RED BLOOD CELLS (BEAKER) (test 0 /100 WBC 0-0 kduf=924) NEUTROPHILS RELATIVE PERCENT (BEAKER) (test 57 % wyiq=088) LYMPHOCYTES RELATIVE PERCENT (BEAKER) (test 22 % pdmh=575) MONOCYTES RELATIVE PERCENT (BEAKER) (test 12 % pojb=119) EOSINOPHILS RELATIVE PERCENT (BEAKER) (test 7 % lljv=209) BASOPHILS RELATIVE PERCENT (BEAKER) (test 1 % ithf=453) NEUTROPHILS ABSOLUTE COUNT (BEAKER) (test 3.07 K/ L 1.78-5.38 srxd=261) LYMPHOCYTES ABSOLUTE COUNT (BEAKER) (test 1.19 K/ L 1.32-3.57 kanb=758) MONOCYTES ABSOLUTE COUNT (BEAKER) (test ngyd=723) 0.64 K/ L 0.30-0.82 EOSINOPHILS ABSOLUTE COUNT (BEAKER) (test 0.38 K/ L 0.04-0.54 bndh=165) BASOPHILS ABSOLUTE COUNT (BEAKER) (test dxxg=712) 0.05 K/ L 0.01-0.08 IMMATURE GRANULOCYTES-RELATIVE PERCENT (BEAKER) 1 % 0-1 (test chpb=5113) BLOOD [id number] 02:00:00 Test Item Value Reference Range Comments CULTURE (BEAKER) (test xlvs=0873) No growth in 5 days CBC W/PLT COUNT & AUTO [id number] 05:28:00 Test Item Value Reference Range Comments WHITE BLOOD CELL COUNT (BEAKER) (test vzoi=065) 4.1 K/ L 3.5-10.5 RED BLOOD CELL COUNT (BEAKER) (test dwkx=700) 2.06 M/ L 4.63-6.08 HEMOGLOBIN (BEAKER) (test xwzp=367) 7.5 GM/DL 13.7-17.5 HEMATOCRIT (BEAKER) (test tkzn=603) 22.7 % 40.1-51.0 MEAN CORPUSCULAR VOLUME (BEAKER) (test psrj=581) 110.2 fL 79.0-92.2 MEAN CORPUSCULAR HEMOGLOBIN (BEAKER) (test 36.4 pg 25.7-32.2 szot=102) MEAN CORPUSCULAR HEMOGLOBIN CONC (BEAKER) (test 33.0 GM/DL 32.3-36.5 jbxw=619) RED CELL DISTRIBUTION WIDTH (BEAKER) (test 18.8 % 11.6-14.4 daoo=279) PLATELET COUNT (BEAKER) (test mokn=714) 64 K/CU MM 150-450 MEAN PLATELET VOLUME (BEAKER) (test kawa=161) 10.1 fL 9.4-12.4 NUCLEATED RED BLOOD CELLS (BEAKER) (test 0 /100 WBC 0-0 ajli=671) NEUTROPHILS RELATIVE PERCENT (BEAKER) (test 60 % lvxb=621) LYMPHOCYTES RELATIVE PERCENT (BEAKER) (test 24 % yyzb=545) MONOCYTES RELATIVE PERCENT (BEAKER) (test 11 % womw=129) EOSINOPHILS RELATIVE PERCENT (BEAKER) (test 5 % irin=215) BASOPHILS RELATIVE PERCENT (BEAKER) (test 1 % szcw=287) NEUTROPHILS ABSOLUTE COUNT (BEAKER) (test 2.44 K/ L 1.78-5.38 qttt=172) LYMPHOCYTES ABSOLUTE COUNT (BEAKER) (test 0.98 K/ L 1.32-3.57 oejc=906) MONOCYTES ABSOLUTE COUNT (BEAKER) (test ncqi=114) 0.44 K/ L 0.30-0.82 EOSINOPHILS ABSOLUTE COUNT (BEAKER) (test 0.20 K/ L 0.04-0.54 obil=649) BASOPHILS ABSOLUTE COUNT (BEAKER) (test lsnc=142) 0.02 K/ L 0.01-0.08 IMMATURE GRANULOCYTES-RELATIVE PERCENT (BEAKER) 1 % 0-1 (test slhh=5288) [id number] 05:16:00 Test Item Value Reference Range Comments PHOSPHORUS (BEAKER) (test zzim=885) 2.6 mg/dL 2.3-4.7 [id number] 05:16:00 Test Item Value Reference Range Comments MAGNESIUM (BEAKER) (test tomk=758) 1.7 mg/dL 1.6-2.6 BASIC METABOLIC [id number] 05:16:00 Test Item Value Reference Range Comments SODIUM (BEAKER) (test 133 meq/L 136-145 qhdm=395) POTASSIUM (BEAKER) (test 3.9 meq/L 3.5-5.1 sdsf=578) CHLORIDE (BEAKER) (test 101 meq/L 98-107 ywxd=939) CO2 (BEAKER) (test 28 meq/L 22-29 pnho=268) BLOOD UREA NITROGEN 8 mg/dL 7-21 (BEAKER) (test ymao=596) CREATININE (BEAKER) (test 0.65 mg/dL 0.57-1.25 hekr=361) GLUCOSE RANDOM (BEAKER) 76 mg/dL 70-105 (test zrss=609) CALCIUM (BEAKER) (test 8.2 mg/dL 8.4-10.2 tuva=929) EGFR (BEAKER) (test 129 mL/min/1.73 sq m ESTIMATED GFR IS NOT msnr=4309) ACCURATE CREATININE CLEARANCE IN PREDICTING GLOMERULAR FILTRATION RATE. ESTIMATED GFR IS NOT APPLICABLE FOR DIALYSIS PATIENTS. Specimen moderately ictericHEPATIC FUNCTION [id number] 05:16:00 Test Item Value Reference Range Comments TOTAL PROTEIN (BEAKER) (test sixa=536) 6.8 gm/dL 6.0-8.3 ALBUMIN (BEAKER) (test qyun=9249) 2.4 g/dL 3.5-5.0 BILIRUBIN TOTAL (BEAKER) (test rrvk=574) 6.4 mg/dL 0.2-1.2 BILIRUBIN DIRECT (BEAKER) (test osot=890) 2.8 mg/dL 0.1-0.5 ALKALINE PHOSPHATASE (BEAKER) (test avnu=150) 125 U/L 40-150 AST (SGOT) (BEAKER) (test rcdl=641) 92 U/L 5-34 ALT (SGPT) (BEAKER) (test wrfr=687) 26 U/L 6-55 Specimen moderately ictericPROTHROMBIN [id number] 05:10:00 Test Item Value Reference Range Comments PROTIME (BEAKER) (test tnum=609) 26.5 seconds 11.9-14.2 INR (BEAKER) (test xrzq=669) 2.6 <=5.9 Effective 09/16/2018: PT Reference Range ChangeNew: 11.9-14.2 Previous: 11.7- 14.7RECOMMENDED COUMADIN/WARFARIN INR THERAPY RANGESSTANDARD DOSE: 2.0-3.0 Includes: PROPHYLAXIS for venous thrombosis, systemic embolization; TREATMENT for venous thrombosis and/or pulmonary embolus.HIGH RISK: Target INR is2.5-3.5 for patients wiht mechanical heart valves.CALCIUM, [id number] 05:03:00 Test Item Value Reference Range Comments CALCIUM IONIZED (BEAKER) (test rpiq=527) 1.03 mmol/L 1.12-1.27 PH, BLOOD (BEAKER) (test rpvm=7846) 7.53 RAD, CHEST, 1 VIEW, NON [id number] 11:40:00Reason for exam:->post picc line insertionShould this [...] MDReport Verified Date/Time: 06/2018 11:40:12 Reading Location: [facility] Radiology Reading Room [id number] 06:56:00 Test Item Value Reference Range Comments MAGNESIUM (BEAKER) (test vfkg=579) 1.6 mg/dL 1.6-2.6 HEPATIC FUNCTION [id number] 06:56:00 Test Item Value Reference Range Comments TOTAL PROTEIN (BEAKER) (test gybs=887) 7.1 gm/dL 6.0-8.3 ALBUMIN (BEAKER) (test cvuv=3094) 2.5 g/dL 3.5-5.0 BILIRUBIN TOTAL (BEAKER) (test occo=413) 5.9 mg/dL 0.2-1.2 BILIRUBIN DIRECT (BEAKER) (test ybqi=004) 2.8 mg/dL 0.1-0.5 ALKALINE PHOSPHATASE (BEAKER) (test jcaw=575) 129 U/L 40-150 AST (SGOT) (BEAKER) (test qqmz=404) 96 U/L 5-34 ALT (SGPT) (BEAKER) (test yact=646) 28 U/L 6-55 Specimen moderately ictericCBC W/PLT COUNT & AUTO [id number] 06: 38:00 Test Item Value Reference Range Comments WHITE BLOOD CELL COUNT (BEAKER) (test tdlp=822) 4.3 K/ L 3.5-10.5 RED BLOOD CELL COUNT (BEAKER) (test fqad=575) 2.19 M/ L 4.63-6.08 HEMOGLOBIN (BEAKER) (test irxi=025) 7.9 GM/DL 13.7-17.5 HEMATOCRIT (BEAKER) (test gwxh=370) 23.8 % 40.1-51.0 MEAN CORPUSCULAR VOLUME (BEAKER) (test coic=308) 108.7 fL 79.0-92.2 MEAN CORPUSCULAR HEMOGLOBIN (BEAKER) (test 36.1 pg 25.7-32.2 zick=477) MEAN CORPUSCULAR HEMOGLOBIN CONC (BEAKER) (test 33.2 GM/DL 32.3-36.5 hypl=031) RED CELL DISTRIBUTION WIDTH (BEAKER) (test 18.7 % 11.6-14.4 cyhj=309) PLATELET COUNT (BEAKER) (test fzhy=601) 66 K/CU MM 150-450 MEAN PLATELET VOLUME (BEAKER) (test pvqs=049) 9.4 fL 9.4-12.4 NUCLEATED RED BLOOD CELLS (BEAKER) (test 0 /100 WBC 0-0 lvtt=798) NEUTROPHILS RELATIVE PERCENT (BEAKER) (test 58 % ggky=814) LYMPHOCYTES RELATIVE PERCENT (BEAKER) (test 25 % ikvo=465) MONOCYTES RELATIVE PERCENT (BEAKER) (test 12 % snej=912) EOSINOPHILS RELATIVE PERCENT (BEAKER) (test 5 % lmrj=331) BASOPHILS RELATIVE PERCENT (BEAKER) (test 1 % yysy=844) NEUTROPHILS ABSOLUTE COUNT (BEAKER) (test 2.51 K/ L 1.78-5.38 znzw=204) LYMPHOCYTES ABSOLUTE COUNT (BEAKER) (test 1.07 K/ L 1.32-3.57 ydne=277) MONOCYTES ABSOLUTE COUNT (BEAKER) (test gbhq=830) 0.50 K/ L 0.30-0.82 EOSINOPHILS ABSOLUTE COUNT (BEAKER) (test 0.20 K/ L 0.04-0.54 ixbw=662) BASOPHILS ABSOLUTE COUNT (BEAKER) (test dxwo=035) 0.03 K/ L 0.01-0.08 IMMATURE GRANULOCYTES-RELATIVE PERCENT (BEAKER) 1 % 0-1 (test ljut=9611) [id number] 06:17:00 Test Item Value Reference Range Comments PHOSPHORUS (BEAKER) (test rpma=526) 2.7 mg/dL 2.3-4.7 BASIC METABOLIC [id number] 06:17:00 Test Item Value Reference Range Comments SODIUM (BEAKER) (test 136 meq/L 136-145 swrq=432) POTASSIUM (BEAKER) (test 4.0 meq/L 3.5-5.1 cklk=912) CHLORIDE (BEAKER) (test 103 meq/L 98-107 pdxc=328) CO2 (BEAKER) (test 29 meq/L 22-29 tsau=391) BLOOD UREA NITROGEN 10 mg/dL 7-21 (BEAKER) (test thbo=176) CREATININE (BEAKER) (test 0.70 mg/dL 0.57-1.25 fcrx=356) GLUCOSE RANDOM (BEAKER) 81 mg/dL 70-105 (test pbmo=299) CALCIUM (BEAKER) (test 8.6 mg/dL 8.4-10.2 oxtj=761) EGFR (BEAKER) (test 118 mL/min/1.73 sq m ESTIMATED GFR IS NOT uovz=2079) ACCURATE CREATININE CLEARANCE IN PREDICTING GLOMERULAR FILTRATION RATE. ESTIMATED GFR IS NOT APPLICABLE FOR DIALYSIS PATIENTS. Specimen moderately ictericB-TYPE NATRIURETIC FACTOR (BNP)2018-12-22 06:14:00 Test Item Value Reference Range Comments B-TYPE NATRIURETIC PEPTIDE (BEAKER) (test lqoa=279) 97 pg/mL 0-100 PROTHROMBIN [id number] 06:07:00 Test Item Value Reference Range Comments PROTIME (BEAKER) (test xzum=823) 25.3 seconds 11.9-14.2 INR (BEAKER) (test yllh=300) 2.4 <=5.9 Effective 09/16/2018: PT Reference Range ChangeNew: 11.9-14.2 Previous: 11.7- 14.7RECOMMENDED COUMADIN/WARFARIN INR THERAPY RANGESSTANDARD DOSE: 2.0-3.0 Includes: PROPHYLAXIS for venous thrombosis, systemic embolization; TREATMENT for venous thrombosis and/or pulmonary embolus.HIGH RISK: Target INR is2.5-3.5 for patients wiht mechanical heart valves.CALCIUM, [id number] 05:40:00 Test Item Value Reference Range Comments CALCIUM IONIZED (BEAKER) (test tldy=340) 1.10 mmol/L 1.12-1.27 PH, BLOOD (BEAKER) (test yscb=2227) 7.46 BLOOD [id number] 12:01:00 Test Item Value Reference Range Comments CULTURE (BEAKER) (test gdgq=1487) No growth in 5 days HEMOGLOBIN AND [id number] 08:44:00 Test Item Value Reference Range Comments HEMOGLOBIN (BEAKER) (test pxtq=705) 8.2 GM/DL 13.7-17.5 HEMATOCRIT (BEAKER) (test oxjw=642) 25.3 % 40.1-51.0 BASIC METABOLIC [id number] 05:15:00 Test Item Value Reference Range Comments SODIUM (BEAKER) (test 134 meq/L 136-145 lelx=784) POTASSIUM (BEAKER) (test 3.8 meq/L 3.5-5.1 zxse=877) CHLORIDE (BEAKER) (test 103 meq/L 98-107 ning=934) CO2 (BEAKER) (test 24 meq/L 22-29 pric=800) BLOOD UREA NITROGEN 11 mg/dL 7-21 (BEAKER) (test hlld=865) CREATININE (BEAKER) (test 0.71 mg/dL 0.57-1.25 pqul=977) GLUCOSE RANDOM (BEAKER) 76 mg/dL 70-105 (test gqhk=502) CALCIUM (BEAKER) (test 8.8 mg/dL 8.4-10.2 gale=241) EGFR (BEAKER) (test 117 mL/min/1.73 sq m ESTIMATED GFR IS NOT vajw=1551) ACCURATE CREATININE CLEARANCE IN PREDICTING GLOMERULAR FILTRATION RATE. ESTIMATED GFR IS NOT APPLICABLE FOR DIALYSIS PATIENTS. Specimen moderately ictericHEPATIC FUNCTION [id number] 05:15:00 Test Item Value Reference Range Comments TOTAL PROTEIN (BEAKER) (test jmeh=477) 7.0 gm/dL 6.0-8.3 ALBUMIN (BEAKER) (test wbqz=1697) 2.5 g/dL 3.5-5.0 BILIRUBIN TOTAL (BEAKER) (test rbki=004) 5.7 mg/dL 0.2-1.2 BILIRUBIN DIRECT (BEAKER) (test zype=359) 2.8 mg/dL 0.1-0.5 ALKALINE PHOSPHATASE (BEAKER) (test lrsj=420) 134 U/L 40-150 AST (SGOT) (BEAKER) (test wsqh=569) 93 U/L 5-34 ALT (SGPT) (BEAKER) (test awbf=972) 29 U/L 6-55 Specimen moderately ictericPROTHROMBIN [id number] 04:47:00 Test Item Value Reference Range Comments PROTIME (BEAKER) (test vzlg=225) 26.4 seconds 11.9-14.2 INR (BEAKER) (test oxib=073) 2.6 <=5.9 Effective 09/16/2018: PT Reference Range ChangeNew: 11.9-14.2 Previous: 11.7- 14.7RECOMMENDED COUMADIN/WARFARIN INR THERAPY RANGESSTANDARD DOSE: 2.0-3.0 Includes: PROPHYLAXIS for venous thrombosis, systemic embolization; TREATMENT for venous thrombosis and/or pulmonary embolus.HIGH RISK: Target INR is2.5-3.5 for patients wiht mechanical heart valves.BASIC METABOLIC [id number] 06:00: 00 Test Item Value Reference Range Comments SODIUM (BEAKER) (test 133 meq/L 136-145 kpum=848) POTASSIUM (BEAKER) (test 3.9 meq/L 3.5-5.1 wtxp=664) CHLORIDE (BEAKER) (test 102 meq/L 98-107 yifa=966) CO2 (BEAKER) (test 27 meq/L 22-29 udjo=175) BLOOD UREA NITROGEN 9 mg/dL 7-21 (BEAKER) (test glvj=705) CREATININE (BEAKER) (test 0.73 mg/dL 0.57-1.25 vjpu=389) GLUCOSE RANDOM (BEAKER) 97 mg/dL 70-105 (test ncwj=922) CALCIUM (BEAKER) (test 8.9 mg/dL 8.4-10.2 vitz=320) EGFR (BEAKER) (test 113 mL/min/1.73 sq m ESTIMATED GFR IS NOT oelx=6730) ACCURATE CREATININE CLEARANCE IN PREDICTING GLOMERULAR FILTRATION RATE. ESTIMATED GFR IS NOT APPLICABLE FOR DIALYSIS PATIENTS. Specimen moderately ictericHEPATIC FUNCTION [id number] 06:00:00 Test Item Value Reference Range Comments TOTAL PROTEIN (BEAKER) (test umhf=604) 6.7 gm/dL 6.0-8.3 ALBUMIN (BEAKER) (test zlfl=5950) 2.5 g/dL 3.5-5.0 BILIRUBIN TOTAL (BEAKER) (test vfwb=941) 5.4 mg/dL 0.2-1.2 BILIRUBIN DIRECT (BEAKER) (test ufcr=798) 2.8 mg/dL 0.1-0.5 ALKALINE PHOSPHATASE (BEAKER) (test efbm=756) 132 U/L 40-150 AST (SGOT) (BEAKER) (test sumn=127) 94 U/L 5-34 ALT (SGPT) (BEAKER) (test ndwd=508) 29 U/L 6-55 Specimen moderately ictericPROTHROMBIN [id number] 05:47:00 Test Item Value Reference Range Comments PROTIME (BEAKER) (test uect=935) 26.3 seconds 11.9-14.2 INR (BEAKER) (test vfuk=490) 2.6 <=5.9 Effective 09/16/2018: PT Reference Range ChangeNew: 11.9-14.2 Previous: 11.7- 14.7RECOMMENDED COUMADIN/WARFARIN INR THERAPY RANGESSTANDARD DOSE: 2.0-3.0 Includes: PROPHYLAXIS for venous thrombosis, systemic embolization; TREATMENT for venous thrombosis and/or pulmonary embolus.HIGH RISK: Target INR is2.5-3.5 for patients wiht mechanical heart valves.BLOOD [id number] 12:01:00 Test Item Value Reference Range Comments CULTURE (BEAKER) (test ctzs=6649) No growth in 5 days BLOOD [id number] 10:56:00 Test Item Value Reference Range Comments CULTURE (BEAKER) From Anaerobic Bottle Only (test goxx=3386) Same organism has been isolated from cultures(s) of the same body site within 3 days. Repeat identification and susceptibility testing performed only after consultation with the clinical microbiology laboratory.Refer to previous culture ofStaphylococcus aureus GRAM STAIN RESULT From anaerobic bottle (BEAKER) (test only: gram positive nuaz=8978) cocci in clusters [id number] 03:57:00 Test Item Value Reference Range Comments MAGNESIUM (BEAKER) (test znel=305) 1.8 mg/dL 1.6-2.6 BASIC METABOLIC [id number] 03:57:00 Test Item Value Reference Range Comments SODIUM (BEAKER) (test 130 meq/L 136-145 bezk=006) POTASSIUM (BEAKER) (test 3.7 meq/L 3.5-5.1 gweq=345) CHLORIDE (BEAKER) (test 96 meq/L 98-107 fcdf=089) CO2 (BEAKER) (test 30 meq/L 22-29 lzre=266) BLOOD UREA NITROGEN 8 mg/dL 7-21 (BEAKER) (test vmvc=610) CREATININE (BEAKER) (test 0.73 mg/dL 0.57-1.25 tkkv=781) GLUCOSE RANDOM (BEAKER) 106 mg/dL 70-105 (test fuqt=038) CALCIUM (BEAKER) (test 8.4 mg/dL 8.4-10.2 rurz=885) EGFR (BEAKER) (test 113 mL/min/1.73 sq m ESTIMATED GFR IS NOT ipnw=3682) ACCURATE CREATININE CLEARANCE IN PREDICTING GLOMERULAR FILTRATION RATE. ESTIMATED GFR IS NOT APPLICABLE FOR DIALYSIS PATIENTS. Specimen moderately ictericHEPATIC FUNCTION [id number] 03:57:00 Test Item Value Reference Range Comments TOTAL PROTEIN (BEAKER) (test zqes=362) 7.1 gm/dL 6.0-8.3 ALBUMIN (BEAKER) (test gfdl=7204) 2.6 g/dL 3.5-5.0 BILIRUBIN TOTAL (BEAKER) (test gbgq=095) 5.4 mg/dL 0.2-1.2 BILIRUBIN DIRECT (BEAKER) (test jdjw=752) 2.9 mg/dL 0.1-0.5 ALKALINE PHOSPHATASE (BEAKER) (test ahis=826) 135 U/L 40-150 AST (SGOT) (BEAKER) (test dbzc=826) 97 U/L 5-34 ALT (SGPT) (BEAKER) (test pxbs=704) 28 U/L 6-55 Specimen moderately ictericPROTHROMBIN [id number] 03:52:00 Test Item Value Reference Range Comments PROTIME (BEAKER) (test evfm=721) 25.6 seconds 11.9-14.2 INR (BEAKER) (test kvzp=787) 2.5 <=5.9 Effective 09/16/2018: PT Reference Range ChangeNew: 11.9-14.2 Previous: 11.7- 14.7RECOMMENDED COUMADIN/WARFARIN INR THERAPY RANGESSTANDARD DOSE: 2.0-3.0 Includes: PROPHYLAXIS for venous thrombosis, systemic embolization; TREATMENT for venous thrombosis and/or pulmonary embolus.HIGH RISK: Target INR is2.5-3.5 for patients wiht mechanical heart valves.POCT-GLUCOSE [id number] 22:57:00 Test Item Value Reference Range Comments POC-GLUCOSE METER (BEAKER) 124 mg/dL 70-110 TESTED AT [facility] [address] [facility] (test hemw=4805) [facility] [address] [id number] 07:46:00 Test Item Value Reference Range Comments PHOSPHORUS (BEAKER) (test yeiz=843) 2.5 mg/dL 2.3-4.7 [id number] 07:46:00 Test Item Value Reference Range Comments MAGNESIUM (BEAKER) (test ldtt=978) 1.8 mg/dL 1.6-2.6 BASIC METABOLIC [id number] 07:46:00 Test Item Value Reference Range Comments SODIUM (BEAKER) (test 131 meq/L 136-145 ucyq=748) POTASSIUM (BEAKER) (test 3.3 meq/L 3.5-5.1 uayp=092) CHLORIDE (BEAKER) (test 89 meq/L 98-107 rhkv=175) CO2 (BEAKER) (test 38 meq/L 22-29 twcr=003) BLOOD UREA NITROGEN 9 mg/dL 7-21 (BEAKER) (test gtef=447) CREATININE (BEAKER) (test 0.73 mg/dL 0.57-1.25 zkiv=177) GLUCOSE RANDOM (BEAKER) 96 mg/dL 70-105 (test veko=537) CALCIUM (BEAKER) (test 8.0 mg/dL 8.4-10.2 nmwr=418) EGFR (BEAKER) (test 113 mL/min/1.73 sq m ESTIMATED GFR IS NOT kiju=9040) ACCURATE CREATININE CLEARANCE IN PREDICTING GLOMERULAR FILTRATION RATE. ESTIMATED GFR IS NOT APPLICABLE FOR DIALYSIS PATIENTS. Specimen moderately ictericHEPATIC FUNCTION [id number] 07:46:00 Test Item Value Reference Range Comments TOTAL PROTEIN (BEAKER) (test omdx=329) 6.9 gm/dL 6.0-8.3 ALBUMIN (BEAKER) (test xzzu=3009) 2.6 g/dL 3.5-5.0 BILIRUBIN TOTAL (BEAKER) (test qhxy=635) 5.2 mg/dL 0.2-1.2 BILIRUBIN DIRECT (BEAKER) (test pawi=527) 3.0 mg/dL 0.1-0.5 ALKALINE PHOSPHATASE (BEAKER) (test lyfv=645) 138 U/L 40-150 AST (SGOT) (BEAKER) (test uarz=817) 82 U/L 5-34 ALT (SGPT) (BEAKER) (test aihm=909) 26 U/L 6-55 Specimen moderately ictericPROTHROMBIN [id number] 06:49:00 Test Item Value Reference Range Comments PROTIME (BEAKER) (test hqfs=055) 26.2 seconds 11.9-14.2 INR (BEAKER) (test exrg=273) 2.5 <=5.9 Effective 09/16/2018: PT Reference Range ChangeNew: 11.9-14.2 Previous: 11.7- 14.7RECOMMENDED COUMADIN/WARFARIN INR THERAPY RANGESSTANDARD DOSE: 2.0-3.0 Includes: PROPHYLAXIS for venous thrombosis, systemic embolization; TREATMENT for venous thrombosis and/or pulmonary embolus.HIGH RISK: Target INR is2.5-3.5 for patients wiht mechanical heart valves.CBC W/PLT COUNT & AUTO [id number] 06:46:00 Test Item Value Reference Range Comments WHITE BLOOD CELL COUNT (BEAKER) (test ugen=173) 5.8 K/ L 3.5-10.5 RED BLOOD CELL COUNT (BEAKER) (test akhy=153) 2.23 M/ L 4.63-6.08 HEMOGLOBIN (BEAKER) (test dkfq=315) 8.0 GM/DL 13.7-17.5 HEMATOCRIT (BEAKER) (test pczd=954) 23.7 % 40.1-51.0 MEAN CORPUSCULAR VOLUME (BEAKER) (test olau=915) 106.3 fL 79.0-92.2 MEAN CORPUSCULAR HEMOGLOBIN (BEAKER) (test 35.9 pg 25.7-32.2 abzn=178) MEAN CORPUSCULAR HEMOGLOBIN CONC (BEAKER) (test 33.8 GM/DL 32.3-36.5 dbcb=597) RED CELL DISTRIBUTION WIDTH (BEAKER) (test 18.3 % 11.6-14.4 cwwu=372) PLATELET COUNT (BEAKER) (test xfzz=375) 68 K/CU MM 150-450 MEAN PLATELET VOLUME (BEAKER) (test qeuo=435) 10.7 fL 9.4-12.4 NUCLEATED RED BLOOD CELLS (BEAKER) (test 0 /100 WBC 0-0 aovq=371) NEUTROPHILS RELATIVE PERCENT (BEAKER) (test 69 % snaz=737) LYMPHOCYTES RELATIVE PERCENT (BEAKER) (test 15 % pfcp=785) MONOCYTES RELATIVE PERCENT (BEAKER) (test 9 % aoub=254) EOSINOPHILS RELATIVE PERCENT (BEAKER) (test 5 % snts=990) BASOPHILS RELATIVE PERCENT (BEAKER) (test 1 % yywe=026) NEUTROPHILS ABSOLUTE COUNT (BEAKER) (test 4.04 K/ L 1.78-5.38 egei=458) LYMPHOCYTES ABSOLUTE COUNT (BEAKER) (test 0.85 K/ L 1.32-3.57 arjg=279) MONOCYTES ABSOLUTE COUNT (BEAKER) (test fvyb=511) 0.54 K/ L 0.30-0.82 EOSINOPHILS ABSOLUTE COUNT (BEAKER) (test 0.29 K/ L 0.04-0.54 poxi=397) BASOPHILS ABSOLUTE COUNT (BEAKER) (test rqbc=396) 0.03 K/ L 0.01-0.08 IMMATURE GRANULOCYTES-RELATIVE PERCENT (BEAKER) 2 % 0-1 (test goqc=7633) CALCIUM, [id number] 06:38:00 Test Item Value Reference Range Comments CALCIUM IONIZED (BEAKER) (test fvvn=815) 1.04 mmol/L 1.12-1.27 PH, BLOOD (BEAKER) (test qoso=3141) 7.47 MISCELLANEOUS LAB [id number] 07:42:00 Test Item Value Reference Range Comments SCAN RESULT (test crza=[id number]) [id number] 07:25:00 Test Item Value Reference Range Comments T3 TOTAL (BEAKER) (test sqtf=425) 45 ng/dL 48-159 [id number] 05:16:00 Test Item Value Reference Range Comments PHOSPHORUS (BEAKER) (test zblt=305) 2.9 mg/dL 2.3-4.7 [id number] 05:16:00 Test Item Value Reference Range Comments MAGNESIUM (BEAKER) (test izuf=385) 1.3 mg/dL 1.6-2.6 BASIC METABOLIC [id number] 05:16:00 Test Item Value Reference Range Comments SODIUM (BEAKER) (test 132 meq/L 136-145 ddef=731) POTASSIUM (BEAKER) (test 3.4 meq/L 3.5-5.1 xqoj=012) CHLORIDE (BEAKER) (test 92 meq/L 98-107 oocu=494) CO2 (BEAKER) (test 35 meq/L 22-29 lnca=253) BLOOD UREA NITROGEN 11 mg/dL 7-21 (BEAKER) (test dpqg=590) CREATININE (BEAKER) (test 0.79 mg/dL 0.57-1.25 seph=513) GLUCOSE RANDOM (BEAKER) 100 mg/dL 70-105 (test aqme=446) CALCIUM (BEAKER) (test 8.0 mg/dL 8.4-10.2 laxv=763) EGFR (BEAKER) (test 103 mL/min/1.73 sq m ESTIMATED GFR IS NOT mfwb=6879) ACCURATE CREATININE CLEARANCE IN PREDICTING GLOMERULAR FILTRATION RATE. ESTIMATED GFR IS NOT APPLICABLE FOR DIALYSIS PATIENTS. Specimen moderately ictericHEPATIC FUNCTION [id number] 05:16:00 Test Item Value Reference Range Comments TOTAL PROTEIN (BEAKER) (test fsua=948) 6.8 gm/dL 6.0-8.3 ALBUMIN (BEAKER) (test vrjb=8465) 2.7 g/dL 3.5-5.0 BILIRUBIN TOTAL (BEAKER) (test gjvm=088) 5.5 mg/dL 0.2-1.2 BILIRUBIN DIRECT (BEAKER) (test jgtd=138) 3.2 mg/dL 0.1-0.5 ALKALINE PHOSPHATASE (BEAKER) (test omce=839) 139 U/L 40-150 AST (SGOT) (BEAKER) (test qanl=471) 71 U/L 5-34 ALT (SGPT) (BEAKER) (test mwqj=465) 25 U/L 6-55 Specimen moderately ictericPROTHROMBIN [id number] 04:50:00 Test Item Value Reference Range Comments PROTIME (BEAKER) (test xmmq=541) 26.4 seconds 11.9-14.2 INR (BEAKER) (test dvzd=147) 2.6 <=5.9 Effective 09/16/2018: PT Reference Range ChangeNew: 11.9-14.2 Previous: 11.7- 14.7RECOMMENDED COUMADIN/WARFARIN INR THERAPY RANGESSTANDARD DOSE: 2.0-3.0 Includes: PROPHYLAXIS for venous thrombosis, systemic embolization; TREATMENT for venous thrombosis and/or pulmonary embolus.HIGH RISK: Target INR is2.5-3.5 for patients wiht mechanical heart valves.CBC W/PLT COUNT & AUTO [id number] 04:46:00 Test Item Value Reference Range Comments WHITE BLOOD CELL COUNT (BEAKER) (test qcqw=252) 6.1 K/ L 3.5-10.5 RED BLOOD CELL COUNT (BEAKER) (test mgue=532) 2.15 M/ L 4.63-6.08 HEMOGLOBIN (BEAKER) (test zphs=864) 7.9 GM/DL 13.7-17.5 HEMATOCRIT (BEAKER) (test cznj=156) 22.6 % 40.1-51.0 MEAN CORPUSCULAR VOLUME (BEAKER) (test hcpd=174) 105.1 fL 79.0-92.2 MEAN CORPUSCULAR HEMOGLOBIN (BEAKER) (test 36.7 pg 25.7-32.2 lzgx=048) MEAN CORPUSCULAR HEMOGLOBIN CONC (BEAKER) (test 35.0 GM/DL 32.3-36.5 hlca=054) RED CELL DISTRIBUTION WIDTH (BEAKER) (test 18.6 % 11.6-14.4 eeho=742) PLATELET COUNT (BEAKER) (test yxde=788) 58 K/CU MM 150-450 MEAN PLATELET VOLUME (BEAKER) (test uadp=099) 10.0 fL 9.4-12.4 NUCLEATED RED BLOOD CELLS (BEAKER) (test 0 /100 WBC 0-0 napm=013) NEUTROPHILS RELATIVE PERCENT (BEAKER) (test 62 % ttpe=555) LYMPHOCYTES RELATIVE PERCENT (BEAKER) (test 19 % kmbq=129) MONOCYTES RELATIVE PERCENT (BEAKER) (test 10 % dttq=653) EOSINOPHILS RELATIVE PERCENT (BEAKER) (test 6 % zwfz=122) BASOPHILS RELATIVE PERCENT (BEAKER) (test 1 % ktts=948) NEUTROPHILS ABSOLUTE COUNT (BEAKER) (test 3.77 K/ L 1.78-5.38 ftta=657) LYMPHOCYTES ABSOLUTE COUNT (BEAKER) (test 1.16 K/ L 1.32-3.57 vzbw=900) MONOCYTES ABSOLUTE COUNT (BEAKER) (test lxyp=413) 0.61 K/ L 0.30-0.82 EOSINOPHILS ABSOLUTE COUNT (BEAKER) (test 0.35 K/ L 0.04-0.54 baby=303) BASOPHILS ABSOLUTE COUNT (BEAKER) (test clse=981) 0.03 K/ L 0.01-0.08 IMMATURE GRANULOCYTES-RELATIVE PERCENT (BEAKER) 3 % 0-1 (test hzfk=1738) CALCIUM, [id number] 04:35:00 Test Item Value Reference Range Comments CALCIUM IONIZED (BEAKER) (test ixkw=989) 1.02 mmol/L 1.12-1.27 PH, BLOOD (BEAKER) (test bprc=3554) 7.48 URINALYSIS W/ [id number] 14:32:00 Test Item Value Reference Range Comments COLOR (BEAKER) (test sqwl=742) Yellow CLARITY (BEAKER) (test lgei=493) Clear SPECIFIC GRAVITY UA (BEAKER) (test dpxk=306) 1.007 1.001-1.035 PH UA (BEAKER) (test dkqs=956) 5.0 5.0-8.0 PROTEIN UA (BEAKER) (test svgo=509) Negative Negative GLUCOSE UA (BEAKER) (test elut=968) Negative Negative KETONES UA (BEAKER) (test psqo=407) Negative Negative BILIRUBIN UA (BEAKER) (test ohkv=413) Negative Negative BLOOD UA (BEAKER) (test cgss=362) Negative Negative NITRITE UA (BEAKER) (test buvt=943) Negative Negative LEUKOCYTE ESTERASE UA (BEAKER) (test wmpf=713) Trace Negative UROBILINOGEN UA (BEAKER) (test hgha=114) 0.2 mg/dL 0.2-1.0 RBC UA (BEAKER) (test gplb=197) 1 /HPF WBC UA (BEAKER) (test xznb=996) 5 /HPF MUCUS (BEAKER) (test kqvs=2212) Rare HYALINE CASTS (BEAKER) (test yoke=056) 3 /LPF SOURCE(BEAKER) (test xdog=8638) CYTOMEGALOVIRUS ANTIBODY, [id number] 09:27:00 Test Item Value Reference Range Comments CYTOMEGALOVIRUS, IGG (BEAKER) (test xsml=4362) Positive Negative, Equivocal CMV IgG Result Interpretation: </=0.8 Al Negative 0.9-1.0 Al Equivocal &gt ;/=1.1 Al PositiveHSV 1 AND 2 [id number] 09:27:00 Test Item Value Reference Range Comments HERPES SIMPLEX VIRUS-1 IGG (BEAKER) (test iuwc=4661) > Al <0.9 HERPES SIMPLES VIRUS-2 IGG (BEAKER) (test rqil=7256) < Al <0.9 Herpes Simplex Virus 1 IgG Result Interpretation: <0.9 Al Normal 0.9- 1.0 Al Equivocal >/=1.1 Al PositiveHerpes Simplex Virus 2 IgG Result Interpretation <0.9 Al Normal 0.9-1.0 Al Equivocal >/=1.1 Al PositiveVARICELLA ZOSTER ANTIBODY, [id number] 09:27:00 Test Item Value Reference Range Comments VARICELLA ZOSTER IGG (AL) (BEAKER) (test blfj=3595) 4.7 VARICELLA ZOSTER RESULT INTERPRETATIONS: <=0.8 Al Nonreactive: Presumed non-immune to VZV 0.9-1.0 Al Equivocal >=1.1 Al Reactive: Presumed immune to VZVRUBELLA ANTIBODY, [id number] 09:27:00 Test Item Value Reference Range Comments RUBELLA IGG QUANTITATION (BEAKER) (test sdio=499) 62.0 IU/mL <8.0 Rubella IgG Result Interpretation: </=7.0 IU/mL Negative - Presumed non- immune 8.0 - 9.9 IU/mL Equivocal >=10.0 IU/mL Positive - Presumed immuneEBV ANTIBODY, [id number] 09:27:00 Test Item Value Reference Range Comments JOSEPH LAMAR VIRAL CAPSID ANTIGEN IGG (BEAKER) Positive Negative, Equivocal (test gdfz=9392) Joseph Lamar Viral Capsid Antigen IgG Result Interpretation: </=0.8 Al Negative 0.9-1.0 Al Equivocal >/=1.1 Al PositiveMISCELLANEOUS LAB [id number] 07:31:00 Test Item Value Reference Range Comments SCAN RESULT (test cawn=[id number]) CALCIUM, [id number] 06:50:00 Test Item Value Reference Range Comments CALCIUM IONIZED (BEAKER) (test zwtc=560) 1.05 mmol/L 1.12-1.27 PH, BLOOD (BEAKER) (test rbur=3739) 7.47 [id number] 06:44:00 Test Item Value Reference Range Comments PHOSPHORUS (BEAKER) (test cflk=218) 2.8 mg/dL 2.3-4.7 [id number] 06:44:00 Test Item Value Reference Range Comments MAGNESIUM (BEAKER) (test lclc=859) 1.3 mg/dL 1.6-2.6 COMPREHENSIVE METABOLIC [id number] 06:44:00 Test Item Value Reference Range Comments TOTAL PROTEIN (BEAKER) 7.3 gm/dL 6.0-8.3 (test yico=662) ALBUMIN (BEAKER) (test 3.0 g/dL 3.5-5.0 lesx=0087) ALKALINE PHOSPHATASE 142 U/L 40-150 (BEAKER) (test bhzg=126) BILIRUBIN TOTAL (BEAKER) 7.1 mg/dL 0.2-1.2 (test eegh=414) SODIUM (BEAKER) (test 136 meq/L 136-145 zmqi=226) POTASSIUM (BEAKER) (test 3.2 meq/L 3.5-5.1 rjkw=612) CHLORIDE (BEAKER) (test 96 meq/L 98-107 lgkv=271) CO2 (BEAKER) (test 33 meq/L 22-29 gqfw=020) BLOOD UREA NITROGEN 10 mg/dL 7-21 (BEAKER) (test hqep=527) CREATININE (BEAKER) (test 0.79 mg/dL 0.57-1.25 bhyh=192) GLUCOSE RANDOM (BEAKER) 92 mg/dL 70-105 (test oifp=877) CALCIUM (BEAKER) (test 9.0 mg/dL 8.4-10.2 havn=041) AST (SGOT) (BEAKER) (test 63 U/L 5-34 ywar=594) ALT (SGPT) (BEAKER) (test 26 U/L 6-55 zwlh=004) EGFR (BEAKER) (test 103 mL/min/1.73 sq ESTIMATED GFR IS NOT lqoh=1548) m ACCURATE CREATININE CLEARANCE IN PREDICTING GLOMERULAR FILTRATION RATE. ESTIMATED GFR IS NOT APPLICABLE FOR DIALYSIS PATIENTS. Specimen moderately ictericHEPATIC FUNCTION [id number] 06:44:00 Test Item Value Reference Range Comments TOTAL PROTEIN (BEAKER) (test qfsk=391) 7.3 gm/dL 6.0-8.3 ALBUMIN (BEAKER) (test eayd=5097) 3.0 g/dL 3.5-5.0 BILIRUBIN TOTAL (BEAKER) (test zhnc=920) 7.1 mg/dL 0.2-1.2 BILIRUBIN DIRECT (BEAKER) (test cmfh=024) 3.7 mg/dL 0.1-0.5 ALKALINE PHOSPHATASE (BEAKER) (test pwod=182) 142 U/L 40-150 AST (SGOT) (BEAKER) (test nzwe=794) 63 U/L 5-34 ALT (SGPT) (BEAKER) (test ihrw=434) 26 U/L 6-55 Specimen moderately ictericPROTHROMBIN [id number] 06:32:00 Test Item Value Reference Range Comments PROTIME (BEAKER) (test jrwm=603) 25.8 seconds 11.9-14.2 INR (BEAKER) (test etra=333) 2.5 <=5.9 Effective 09/16/2018: PT Reference Range ChangeNew: 11.9-14.2 Previous: 11.7- 14.7RECOMMENDED COUMADIN/WARFARIN INR THERAPY RANGESSTANDARD DOSE: 2.0-3.0 Includes: PROPHYLAXIS for venous thrombosis, systemic embolization; TREATMENT for venous thrombosis and/or pulmonary embolus.HIGH RISK: Target INR is2.5-3.5 for patients wiht mechanical heart valves.CALCIUM, [id number] 06:29:00 Test Item Value Reference Range Comments CALCIUM IONIZED (BEAKER) (test fzcy=362) 1.05 mmol/L 1.12-1.27 PH, BLOOD (BEAKER) (test pwrv=0272) 7.47 CBC W/PLT COUNT & AUTO [id number] 06:24:00 Test Item Value Reference Range Comments WHITE BLOOD CELL COUNT (BEAKER) (test tmde=453) 7.7 K/ L 3.5-10.5 RED BLOOD CELL COUNT (BEAKER) (test tlju=308) 2.43 M/ L 4.63-6.08 HEMOGLOBIN (BEAKER) (test ugpw=646) 8.8 GM/DL 13.7-17.5 HEMATOCRIT (BEAKER) (test mrrc=291) 25.5 % 40.1-51.0 MEAN CORPUSCULAR VOLUME (BEAKER) (test hfno=513) 104.9 fL 79.0-92.2 MEAN CORPUSCULAR HEMOGLOBIN (BEAKER) (test 36.2 pg 25.7-32.2 jpbx=098) MEAN CORPUSCULAR HEMOGLOBIN CONC (BEAKER) (test 34.5 GM/DL 32.3-36.5 awpc=372) RED CELL DISTRIBUTION WIDTH (BEAKER) (test 18.6 % 11.6-14.4 bbjl=423) PLATELET COUNT (BEAKER) (test heox=730) 66 K/CU MM 150-450 MEAN PLATELET VOLUME (BEAKER) (test ukej=063) 10.2 fL 9.4-12.4 NUCLEATED RED BLOOD CELLS (BEAKER) (test 0 /100 WBC 0-0 yqhl=770) NEUTROPHILS RELATIVE PERCENT (BEAKER) (test 62 % aycc=783) LYMPHOCYTES RELATIVE PERCENT (BEAKER) (test 17 % nyzr=970) MONOCYTES RELATIVE PERCENT (BEAKER) (test 9 % lies=405) EOSINOPHILS RELATIVE PERCENT (BEAKER) (test 6 % fnxd=630) BASOPHILS RELATIVE PERCENT (BEAKER) (test 1 % hzrx=849) NEUTROPHILS ABSOLUTE COUNT (BEAKER) (test 4.76 K/ L 1.78-5.38 bvph=169) LYMPHOCYTES ABSOLUTE COUNT (BEAKER) (test 1.34 K/ L 1.32-3.57 krfb=682) MONOCYTES ABSOLUTE COUNT (BEAKER) (test rksc=237) 0.72 K/ L 0.30-0.82 EOSINOPHILS ABSOLUTE COUNT (BEAKER) (test 0.43 K/ L 0.04-0.54 bsmj=962) BASOPHILS ABSOLUTE COUNT (BEAKER) (test ftzp=074) 0.04 K/ L 0.01-0.08 IMMATURE GRANULOCYTES-RELATIVE PERCENT (BEAKER) 5 % 0-1 (test kjhn=8119) BLOOD GAS, [id number] 17:27:00 Test Item Value Reference Range Comments PH ARTERIAL (BEAKER) (test syig=379) 7.50 7.35-7.45 PCO2 ARTERIAL (BEAKER) (test setg=503) 36 mmHg 35-45 PO2 ARTERIAL (BEAKER) (test wcax=370) 68 mmHg 80-90 O2 SATURATION ARTERIAL (BEAKER) (test asys=760) 95.5 % 96.0-97.0 HCO3 ARTERIAL (BEAKER) (test bmum=111) 27 mmol/L 21-29 BASE EXCESS ARTERIAL (BEAKER) (test akni=159) 3.8 mmol/L -2.0-3.0 PATIENT TEMPERATURE (BEAKER) (test uzci=1667) 36.4 C FIO2 (BEAKER) (test enme=3585) 21.0 % BLOOD [id number] 13:20:00 Test Item Value Reference Range Comments CULTURE (BEAKER) (test STAPHYLOCOCCUS AUREUS From Aerobic And zgxi=1429) Anaerobic Bottles Staphylococcus aureus Clindamycin (test code=10) Erythromycin (test code=4) Linezolid (test code=40) Nitrofurantoin (test code=23) Oxacillin (test code=14) Rifampin (test code=43) Tetracycline (test code=2) Trimethoprim + Sulfamethoxazole (test code=47) Vancomycin (test code=13) GRAM STAIN RESULT From aerobic and (BEAKER) (test bojl=6961) anaerobic bottles: gram positive cocci in clusters [id number] 07:17:00 Test Item Value Reference Range Comments PHOSPHORUS (BEAKER) (test yebv=802) 2.2 mg/dL 2.3-4.7 [id number] 07:17:00 Test Item Value Reference Range Comments MAGNESIUM (BEAKER) (test nfph=302) 1.9 mg/dL 1.6-2.6 BASIC METABOLIC [id number] 07:17:00 Test Item Value Reference Range Comments SODIUM (BEAKER) (test 134 meq/L 136-145 wkpr=159) POTASSIUM (BEAKER) (test 3.6 meq/L 3.5-5.1 yxer=318) CHLORIDE (BEAKER) (test 102 meq/L 98-107 wkob=932) CO2 (BEAKER) (test 27 meq/L 22-29 deps=964) BLOOD UREA NITROGEN 12 mg/dL 7-21 (BEAKER) (test ixvj=607) CREATININE (BEAKER) (test 0.77 mg/dL 0.57-1.25 ddjz=593) GLUCOSE RANDOM (BEAKER) 103 mg/dL 70-105 (test msbw=400) CALCIUM (BEAKER) (test 8.8 mg/dL 8.4-10.2 jtiu=796) EGFR (BEAKER) (test 106 mL/min/1.73 sq m ESTIMATED GFR IS NOT xvwj=3856) ACCURATE CREATININE CLEARANCE IN PREDICTING GLOMERULAR FILTRATION RATE. ESTIMATED GFR IS NOT APPLICABLE FOR DIALYSIS PATIENTS. Specimen moderately ictericHEPATIC FUNCTION [id number] 07:17:00 Test Item Value Reference Range Comments TOTAL PROTEIN (BEAKER) (test eckb=837) 6.9 gm/dL 6.0-8.3 ALBUMIN (BEAKER) (test mqxb=9811) 2.8 g/dL 3.5-5.0 BILIRUBIN TOTAL (BEAKER) (test siwk=765) 7.7 mg/dL 0.2-1.2 BILIRUBIN DIRECT (BEAKER) (test tmqi=853) 3.8 mg/dL 0.1-0.5 ALKALINE PHOSPHATASE (BEAKER) (test qiqd=680) 133 U/L 40-150 AST (SGOT) (BEAKER) (test imfi=182) 49 U/L 5-34 ALT (SGPT) (BEAKER) (test gaeo=372) 24 U/L 6-55 Specimen moderately ictericVANCOMYCIN LEVEL, [id number] 07:06:00 Test Item Value Reference Range Comments VANCOMYCIN TROUGH (BEAKER) (test fzxp=203) < ug/mL 10.0-20.0 B-TYPE NATRIURETIC FACTOR (BNP)2018-12-15 06:46:00 Test Item Value Reference Range Comments B-TYPE NATRIURETIC PEPTIDE (BEAKER) (test 582 pg/mL 0-100 udcb=889) CBC W/PLT COUNT & AUTO [id number] 06:29:00 Test Item Value Reference Range Comments WHITE BLOOD CELL COUNT (BEAKER) (test lbya=279) 8.2 K/ L 3.5-10.5 RED BLOOD CELL COUNT (BEAKER) (test uxbx=509) 2.42 M/ L 4.63-6.08 HEMOGLOBIN (BEAKER) (test fjjy=370) 8.6 GM/DL 13.7-17.5 HEMATOCRIT (BEAKER) (test cqzx=935) 26.1 % 40.1-51.0 MEAN CORPUSCULAR VOLUME (BEAKER) (test jntz=726) 107.9 fL 79.0-92.2 MEAN CORPUSCULAR HEMOGLOBIN (BEAKER) (test 35.5 pg 25.7-32.2 nsyo=959) MEAN CORPUSCULAR HEMOGLOBIN CONC (BEAKER) (test 33.0 GM/DL 32.3-36.5 kddq=550) RED CELL DISTRIBUTION WIDTH (BEAKER) (test 18.9 % 11.6-14.4 djfb=035) PLATELET COUNT (BEAKER) (test gqrg=659) 58 K/CU MM 150-450 MEAN PLATELET VOLUME (BEAKER) (test elhi=840) 10.0 fL 9.4-12.4 NUCLEATED RED BLOOD CELLS (BEAKER) (test 0 /100 WBC 0-0 cxkm=950) NEUTROPHILS RELATIVE PERCENT (BEAKER) (test 67 % dtvj=501) LYMPHOCYTES RELATIVE PERCENT (BEAKER) (test 16 % zesi=658) MONOCYTES RELATIVE PERCENT (BEAKER) (test 8 % bjhx=862) EOSINOPHILS RELATIVE PERCENT (BEAKER) (test 4 % egkz=217) BASOPHILS RELATIVE PERCENT (BEAKER) (test 1 % hdxx=865) NEUTROPHILS ABSOLUTE COUNT (BEAKER) (test 5.45 K/ L 1.78-5.38 xnvj=532) LYMPHOCYTES ABSOLUTE COUNT (BEAKER) (test 1.34 K/ L 1.32-3.57 hpfi=262) MONOCYTES ABSOLUTE COUNT (BEAKER) (test ebex=929) 0.63 K/ L 0.30-0.82 EOSINOPHILS ABSOLUTE COUNT (BEAKER) (test 0.32 K/ L 0.04-0.54 fvwe=631) BASOPHILS ABSOLUTE COUNT (BEAKER) (test oeur=530) 0.06 K/ L 0.01-0.08 IMMATURE GRANULOCYTES-RELATIVE PERCENT (BEAKER) 4 % 0-1 (test pper=7470) PROTHROMBIN [id number] 06:28:00 Test Item Value Reference Range Comments PROTIME (BEAKER) (test soij=332) 26.9 seconds 11.9-14.2 INR (BEAKER) (test isrr=357) 2.7 <=5.9 Effective 09/16/2018: PT Reference Range ChangeNew: 11.9-14.2 Previous: 11.7- 14.7RECOMMENDED COUMADIN/WARFARIN INR THERAPY RANGESSTANDARD DOSE: 2.0-3.0 Includes: PROPHYLAXIS for venous thrombosis, systemic embolization; TREATMENT for venous thrombosis and/or pulmonary embolus.HIGH RISK: Target INR is2.5-3.5 for patients wiht mechanical heart valves.CALCIUM, [id number] 06:15:00 Test Item Value Reference Range Comments CALCIUM IONIZED (BEAKER) (test kfkv=421) 1.15 mmol/L 1.12-1.27 PH, BLOOD (BEAKER) (test bjxa=1664) 7.37 CBC W/PLT COUNT & AUTO [id number] 12:04:00 Test Item Value Reference Range Comments WHITE BLOOD CELL COUNT (BEAKER) (test stjm=052) 9.6 K/ L 3.5-10.5 RED BLOOD CELL COUNT (BEAKER) (test sapy=444) 2.24 M/ L 4.63-6.08 HEMOGLOBIN (BEAKER) (test gcvk=322) 8.1 GM/DL 13.7-17.5 HEMATOCRIT (BEAKER) (test wvot=012) 23.8 % 40.1-51.0 MEAN CORPUSCULAR VOLUME (BEAKER) (test yfvr=152) 106.3 fL 79.0-92.2 MEAN CORPUSCULAR HEMOGLOBIN (BEAKER) (test 36.2 pg 25.7-32.2 jlte=185) MEAN CORPUSCULAR HEMOGLOBIN CONC (BEAKER) (test 34.0 GM/DL 32.3-36.5 ipyl=760) RED CELL DISTRIBUTION WIDTH (BEAKER) (test 19.3 % 11.6-14.4 slzx=668) PLATELET COUNT (BEAKER) (test cyrq=639) 54 K/CU MM 150-450 MEAN PLATELET VOLUME (BEAKER) (test rvex=732) 10.6 fL 9.4-12.4 NUCLEATED RED BLOOD CELLS (BEAKER) (test 0 /100 WBC 0-0 upal=094) (CELLAVISION MANUAL DIFF)2018-12-14 12:04:00 Test Item Value Reference Range Comments NEUTROPHILS - REL (CELLAVISION)(BEAKER) (test 85 % oiso=0962) LYMPHOCYTES - REL (CELLAVISION)(BEAKER) (test 5 % txbj=7125) MONOCYTES - REL (CELLAVISION)(BEAKER) (test 10 % pmyd=5603) NEUTROPHILS - ABS (CELLAVISION)(BEAKER) (test 8.16 K/ul 1.78-5.38 qotm=0315) LYMPHOCYTES - ABS (CELLAVISION)(BEAKER) (test 0.48 K/ul 1.32-3.57 pgyr=6938) MONOCYTES - ABS (CELLAVISION)(BEAKER) (test 0.96 K/uL 0.30-0.82 gdsm=4782) TOTAL COUNTED (BEAKER) (test peek=2149) 100 WBC MORPHOLOGY (BEAKER) (test esrb=160) Normal PLT MORPHOLOGY (BEAKER) (test casb=028) Normal ANISOCYTOSIS (BEAKER) (test foqr=604) 1+ few MACROCYTES (BEAKER) (test atuh=643) 1+ few POIKILOCYTES (BEAKER) (test xrpo=526) 1+ few ARTIFACT (CELLAVISION)(BEAKER) (test ujdg=5997) Present PLATELET CONCENTRATION (CELLAVISION)(BEAKER) (test Decreased rjnk=5892) Received comment: User comments: Slide comments:BLOOD [id number] 11:53:00 Test Item Value Reference Range Comments CULTURE (BEAKER) From Aerobic And Anaerobic (test uqyk=7552) Bottles Same organism has been isolated from cultures(s) of the same body site within 3 days. Repeat identification and susceptibility testing performed only after consultation with the clinical microbiology laboratory.Refer to previous culture ofStaphylococcus aureus GRAM STAIN RESULT From aerobic and (BEAKER) (test anaerobic bottles: qbwp=0718) gram positive cocci in clusters PROTHROMBIN [id number] 10:54:00 Test Item Value Reference Range Comments PROTIME (BEAKER) (test bbud=189) 25.1 seconds 11.9-14.2 INR (BEAKER) (test kbhc=681) 2.4 <=5.9 Effective 09/16/2018: PT Reference Range ChangeNew: 11.9-14.2 Previous: 11.7- 14.7RECOMMENDED COUMADIN/WARFARIN INR THERAPY RANGESSTANDARD DOSE: 2.0-3.0 Includes: PROPHYLAXIS for venous thrombosis, systemic embolization; TREATMENT for venous thrombosis and/or pulmonary embolus.HIGH RISK: Target INR is2.5-3.5 for patients wiht mechanical heart valves.HEPATIC FUNCTION [id number] 09:19 :00 Test Item Value Reference Range Comments TOTAL PROTEIN (BEAKER) (test poxe=551) 6.8 gm/dL 6.0-8.3 ALBUMIN (BEAKER) (test janc=2418) 2.9 g/dL 3.5-5.0 BILIRUBIN TOTAL (BEAKER) (test yvfg=155) 7.4 mg/dL 0.2-1.2 BILIRUBIN DIRECT (BEAKER) (test ecwd=673) 3.6 mg/dL 0.1-0.5 ALKALINE PHOSPHATASE (BEAKER) (test iaza=533) 136 U/L 40-150 AST (SGOT) (BEAKER) (test jlun=713) 49 U/L 5-34 ALT (SGPT) (BEAKER) (test hzld=712) 23 U/L 6-55 Specimen moderately ictericC-REACTIVE [id number] 07:28:00 Test Item Value Reference Range Comments C-REACTIVE PROTEIN (BEAKER) (test izsw=427) 5.83 mg/dL 0.00-0.50 [id number] 07:03:00 Test Item Value Reference Range Comments PHOSPHORUS (BEAKER) (test lkym=806) 2.0 mg/dL 2.3-4.7 [id number] 07:03:00 Test Item Value Reference Range Comments MAGNESIUM (BEAKER) (test sikq=910) 2.1 mg/dL 1.6-2.6 BASIC METABOLIC [id number] 07:03:00 Test Item Value Reference Range Comments SODIUM (BEAKER) (test 131 meq/L 136-145 ichp=187) POTASSIUM (BEAKER) (test 4.3 meq/L 3.5-5.1 bgsa=720) CHLORIDE (BEAKER) (test 103 meq/L 98-107 hqyn=119) CO2 (BEAKER) (test 24 meq/L 22-29 udwb=331) BLOOD UREA NITROGEN 21 mg/dL 7-21 (BEAKER) (test dlbh=265) CREATININE (BEAKER) (test 0.79 mg/dL 0.57-1.25 kuxq=826) GLUCOSE RANDOM (BEAKER) 96 mg/dL 70-105 (test mjlj=119) CALCIUM (BEAKER) (test 8.6 mg/dL 8.4-10.2 haiz=760) EGFR (BEAKER) (test 103 mL/min/1.73 sq m ESTIMATED GFR IS NOT vcsw=0951) ACCURATE CREATININE CLEARANCE IN PREDICTING GLOMERULAR FILTRATION RATE. ESTIMATED GFR IS NOT APPLICABLE FOR DIALYSIS PATIENTS. Specimen moderately ictericLIPID [id number] 07:03:00 Test Item Value Reference Range Comments TRIGLYCERIDES (BEAKER) (test acvn=977) 62 mg/dL CHOLESTEROL (BEAKER) (test jrul=010) 89 mg/dL HDL CHOLESTEROL (BEAKER) (test skem=261) 6 mg/dL LDL CHOLESTEROL CALCULATED (BEAKER) (test yarx=150) 71 mg/dL Triglyceride Reference Range: Low Risk <150 Borderline 150- 199 High Risk 200-499 Very High Risk >=500Cholesterol Reference Range: Low Risk <200 Borderline 200-239 High Risk > 240HDL Cholesterol Reference Range: Low Risk >=60 High Risk <40LDL Cholesterol Reference Range: Optimal <100 Near Optimal 100-129 Borderline 130-159 High 160-189 Very High >=190 Specimen moderatelyictericCALCIUM, [id number] 06:23:00 Test Item Value Reference Range Comments CALCIUM IONIZED (BEAKER) (test pyeh=822) 1.09 mmol/L 1.12-1.27 PH, BLOOD (BEAKER) (test gzgd=9618) 7.49 U/S, RENAL WITH [id number] 02:05:00Reason for exam:->erica, history of renal artery [...] for renal artery stenosis. Signed: Michael Haile MDReport VerifiedDate/Time: 12/14/2018 02:05:57 RAD , SHOULDER, COMPLETE (MIN 2 VIEWS), [id number] 17:15:00Reason for exam:-&gt ;shoulder painFINAL REPORT TECHNIQUE: [...] Rodas MDReport Verified Date/Time: 12/13/2018 17:15:55Reading Location: [facility] B1 C013Y CT Body Reading Room CBC W/PLT COUNT & AUTO [id number] 09:49:00 Test Item Value Reference Range Comments WHITE BLOOD CELL COUNT (BEAKER) (test zthu=227) 8.4 K/ L 3.5-10.5 RED BLOOD CELL COUNT (BEAKER) (test wasp=768) 2.39 M/ L 4.63-6.08 HEMOGLOBIN (BEAKER) (test ssoi=998) 8.5 GM/DL 13.7-17.5 HEMATOCRIT (BEAKER) (test kdqe=303) 25.1 % 40.1-51.0 MEAN CORPUSCULAR VOLUME (BEAKER) (test rqwr=143) 105.0 fL 79.0-92.2 MEAN CORPUSCULAR HEMOGLOBIN (BEAKER) (test 35.6 pg 25.7-32.2 bpil=714) MEAN CORPUSCULAR HEMOGLOBIN CONC (BEAKER) (test 33.9 GM/DL 32.3-36.5 swiu=332) RED CELL DISTRIBUTION WIDTH (BEAKER) (test 19.2 % 11.6-14.4 ckrm=921) PLATELET COUNT (BEAKER) (test jytt=815) 55 K/CU MM 150-450 MEAN PLATELET VOLUME (BEAKER) (test odrm=078) 10.7 fL 9.4-12.4 NUCLEATED RED BLOOD CELLS (BEAKER) (test 0 /100 WBC 0-0 jmdt=810) (CELLAVISION MANUAL DIFF)2018-12-13 09:49:00 Test Item Value Reference Range Comments NEUTROPHILS - REL (CELLAVISION)(BEAKER) (test 86 % lbqw=9213) LYMPHOCYTES - REL (CELLAVISION)(BEAKER) (test 4 % uizm=9340) MONOCYTES - REL (CELLAVISION)(BEAKER) (test 8 % bmsb=0666) METAMYELOCYTES - REL (CELLAVISION)(BEAKER) (test 1 % 0-0 aibr=2052) BANDS - REL (CELLAVISION)(BEAKER) (test 1 % 0-10 ykwv=4610) NEUTROPHILS - ABS (CELLAVISION)(BEAKER) (test 7.22 K/ul 1.78-5.38 inkd=6675) LYMPHOCYTES - ABS (CELLAVISION)(BEAKER) (test 0.34 K/ul 1.32-3.57 aslh=1170) MONOCYTES - ABS (CELLAVISION)(BEAKER) (test 0.67 K/uL 0.30-0.82 tlot=6296) METAMYELOCYTES - ABS (CELLAVISION)(BEAKER) (test 0.08 K/uL 0.00-0.00 qkka=5097) BANDS - ABS (CELLAVISION)(BEAKER) (test 0.08 K/uL 0.00-0.80 mqgj=1383) TOTAL COUNTED (BEAKER) (test omsr=4787) 100 RBC MORPHOLOGY (BEAKER) (test hcdd=208) Normal WBC MORPHOLOGY (BEAKER) (test iakx=706) Normal PLT MORPHOLOGY (BEAKER) (test bjeu=594) Normal POLYCHROMATOPHILLIC RBCS(BEAKER) (test tenh=242) 1+ few HYPOCHROMIA (BEAKER) (test rbih=495) 2+ moderate TARGET CELLS (BEAKER) (test hayq=663) 1+ few ARTIFACT (CELLAVISION)(BEAKER) (test crpt=4006) Present PLATELET CONCENTRATION (CELLAVISION)(BEAKER) Decreased (test gfrg=9800) Received comment: User comments: Slide comments:RAD, CHEST, 1 VIEW, NON [id number] 09:11:00Reason for exam:->edemaShould this be performed at the bedside ?->YesFINAL REPORT AP view of the chest dated 2018 COMPARISON: October 14, 2018 CLINICAL INFORMATION: edema Comment: Heart is in upper limits of normal in size. Pulmonary vasculature is unremarkable. Lungs are clear. No pulmonary infiltrate or pleural effusion is present. Impression: No interval change. Signed: Lamont Mayberry Verified Date/Time: 2018 09:11:32 Reading Location: [address] Reading Room OSMOLALITY, [id number] 08:43:00 Test Item Value Reference Range Comments OSMOLALITY URINE (BEAKER) (test gypq=040) 559 mOsm/kg 40-1,400 CALCIUM, [id number] 08:37:00 Test Item Value Reference Range Comments CALCIUM IONIZED (BEAKER) (test dvqm=582) 1.07 mmol/L 1.12-1.27 PH, BLOOD (BEAKER) (test rdgw=0457) 7.41 T4, [id number] 07:21:00 Test Item Value Reference Range Comments FREE T4 (BEAKER) (test usan=579) 0.82 ng/dL 0.70-1.48 SODIUM, RANDOM [id number] 07:10:00 Test Item Value Reference Range Comments SODIUM URINE (BEAKER) (test palq=416) < meq/L Reference Range: No NormalsCREATININE, RANDOM [id number] 07:09:00 Test Item Value Reference Range Comments CREATININE URINE (BEAKER) (test urfr=597) 103.6 mg/dL Reference Range: No NormalsPROTEIN, RANDOM [id number] 07:09:00 Test Item Value Reference Range Comments PROTEIN, URINE (BEAKER) (test idsk=4186) 15 mg/dL 0-14 TSH/FREE T4 IF [id number] 06:44:00 Test Item Value Reference Range Comments THYROID STIMULATING HORMONE (BEAKER) (test 0.21 uIU/mL 0.35-4.94 ntys=451) URINALYSIS W/ [id number] 06:37:00 Test Item Value Reference Range Comments COLOR (BEAKER) (test zxgt=834) Yellow CLARITY (BEAKER) (test bafs=621) Clear SPECIFIC GRAVITY UA (BEAKER) (test uzvk=008) 1.016 1.001-1.035 PH UA (BEAKER) (test zgar=826) 5.5 5.0-8.0 PROTEIN UA (BEAKER) (test ivoa=409) Negative Negative GLUCOSE UA (BEAKER) (test bxrj=726) Negative Negative KETONES UA (BEAKER) (test bhok=594) Negative Negative BILIRUBIN UA (BEAKER) (test qleh=846) Negative Negative BLOOD UA (BEAKER) (test tvls=786) Negative Negative NITRITE UA (BEAKER) (test rafj=889) Negative Negative LEUKOCYTE ESTERASE UA (BEAKER) (test myjr=352) Trace Negative UROBILINOGEN UA (BEAKER) (test tzey=374) 2.0 mg/dL 0.2-1.0 RBC UA (BEAKER) (test tdvz=817) 2 /HPF WBC UA (BEAKER) (test qmir=522) 3 /HPF BACTERIA (BEAKER) (test ujwr=529) Rare MUCUS (BEAKER) (test kyoa=3114) Rare HYALINE CASTS (BEAKER) (test shre=795) 11 /LPF GRANULAR CASTS (BEAKER) (test lksp=503) 8 /LPF AMORPHOUS CRYSTALS (BEAKER) (test dgdx=3846) Occasional SOURCE(BEAKER) (test aeww=8895) B-TYPE NATRIURETIC FACTOR (BNP)2018-12-13 06:31:00 Test Item Value Reference Range Comments B-TYPE NATRIURETIC PEPTIDE (BEAKER) (test 705 pg/mL 0-100 griy=835) [id number] 06:29:00 Test Item Value Reference Range Comments PHOSPHORUS (BEAKER) (test zfef=962) 2.9 mg/dL 2.3-4.7 [id number] 06:29:00 Test Item Value Reference Range Comments MAGNESIUM (BEAKER) (test pfrv=625) 2.3 mg/dL 1.6-2.6 LIPID [id number] 06:29:00 Test Item Value Reference Range Comments TRIGLYCERIDES (BEAKER) (test rilo=288) 65 mg/dL CHOLESTEROL (BEAKER) (test afsl=493) 99 mg/dL HDL CHOLESTEROL (BEAKER) (test bjxn=938) 6 mg/dL LDL CHOLESTEROL CALCULATED (BEAKER) (test xzhh=821) 80 mg/dL Triglyceride Reference Range: Low Risk <150 Borderline 150- 199 High Risk 200-499 Very High Risk >=500Cholesterol Reference Range: Low Risk <200 Borderline 200-239 High Risk > 240HDL Cholesterol Reference Range: Low Risk >=60 High Risk <40LDL Cholesterol Reference Range: Optimal <100 Near Optimal 100-129 Borderline 130-159 High 160-189 Very High >=190 Specimen moderatelyictericCOMPREHENSIVE METABOLIC [id number] 06:29:00 Test Item Value Reference Range Comments TOTAL PROTEIN (BEAKER) 6.9 gm/dL 6.0-8.3 (test snhi=444) ALBUMIN (BEAKER) (test 2.5 g/dL 3.5-5.0 ypiw=6636) ALKALINE PHOSPHATASE 152 U/L 40-150 (BEAKER) (test eorl=417) BILIRUBIN TOTAL (BEAKER) 6.8 mg/dL 0.2-1.2 (test irqf=884) SODIUM (BEAKER) (test 132 meq/L 136-145 nkme=177) POTASSIUM (BEAKER) (test 4.3 meq/L 3.5-5.1 jqjd=617) CHLORIDE (BEAKER) (test 105 meq/L 98-107 ormx=763) CO2 (BEAKER) (test 22 meq/L 22-29 vfij=329) BLOOD UREA NITROGEN 42 mg/dL 7-21 (BEAKER) (test utdw=424) CREATININE (BEAKER) (test 1.31 mg/dL 0.57-1.25 uejo=049) GLUCOSE RANDOM (BEAKER) 109 mg/dL 70-105 (test bpdb=925) CALCIUM (BEAKER) (test 8.2 mg/dL 8.4-10.2 ldzh=894) AST (SGOT) (BEAKER) (test 55 U/L 5-34 slqb=265) ALT (SGPT) (BEAKER) (test 29 U/L 6-55 ixfs=314) EGFR (BEAKER) (test 57 mL/min/1.73 sq m ESTIMATED GFR IS NOT uoov=5700) ACCURATE CREATININE CLEARANCE IN PREDICTING GLOMERULAR FILTRATION RATE. ESTIMATED GFR IS NOT APPLICABLE FOR DIALYSIS PATIENTS. Specimen moderately ictericHEPATIC FUNCTION [id number] 06:29:00 Test Item Value Reference Range Comments TOTAL PROTEIN (BEAKER) (test lpzw=106) 6.9 gm/dL 6.0-8.3 ALBUMIN (BEAKER) (test rkzt=3249) 2.5 g/dL 3.5-5.0 BILIRUBIN TOTAL (BEAKER) (test fvmy=448) 6.8 mg/dL 0.2-1.2 BILIRUBIN DIRECT (BEAKER) (test jpwt=441) 4.0 mg/dL 0.1-0.5 ALKALINE PHOSPHATASE (BEAKER) (test ksex=390) 152 U/L 40-150 AST (SGOT) (BEAKER) (test yfdl=827) 55 U/L 5-34 ALT (SGPT) (BEAKER) (test dtqz=363) 29 U/L 6-55 Specimen moderately ictericCREATINE KINASE (CK)2018-12-13 06:29:00 Test Item Value Reference Range Comments CREATINE KINASE TOTAL (BEAKER) (test ecyh=220) 60 U/L 29-200 [id number] 06:21:00 Test Item Value Reference Range Comments ETHANOL (BEAKER) (test pdnp=469) < mg/dL <=10 OCCULT BLOOD, [id number] 05:39:00 Test Item Value Reference Range Comments FECAL OCCULT BLOOD (BEAKER) (test lofu=270) Negative Negative U/S, ABDOMINAL, [id number] 05:28:00Reason for exam:->ascitesFINAL REPORT INDICATION: ascites COMPARISON: None. TECHNIQUE: Real-time transabdominal pradhan scale ultrasound of the abdomen. IMPRESSION: No intra-abdominal ascites. Signed: Michael Haile Verified Date/Time : 12/13/2018 05:28:07 BLOOD CULTURE IDENTIFICATION [id number] 15:25:00 Test Item Value Reference Range Comments LISTERIA MONOCYTOGENES Not detected Not detected (test flcj=8243221) STAPHYLOCOCCUS (test Detected Not detected euea=8233411) STAPHYLOCOCCUS AUREUS Detected Not detected Methicillin-susceptible S. 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) ID CONSULTATION REQUIREDStaphylococcus aureus DETECTEDMecA NOT DETECTED Reference Range: Not Detected STREPTOCOCCUS (test Not detected Not detected ibsd=6145163) STREPTOCOCCUS AGALACTIAE Not detected Not detected (GROUP B) (test ihel=0297344) STREPTOCOCCUS PNEUMONIAE Not detected Not detected (test mzsw=6904926) STREPTOCOCCUS PYOGENES Not detected Not detected (GROUP A) (test wvzw=3495320) ACINETOBACTER BAUMANNII Not detected Not detected (test tvlf=0930122) HAEMOPHILUS INFLUENZAE Not detected Not detected (test linx=2122391) NEISSERIA MENINGITIDIS Not detected Not detected (test kokv=5463674) ENTEROBACTERIACEAE (test Not detected Not detected pzor=4958015) ENTEROBACTER CLOACOE Not detected Not detected COMPLEX (test afmw=0804409) KLEBSIELLA OXYTOCA (test Not detected Not detected hovh=5854678) KLEBSIELLA PNEUMONIAE Not detected Not detected (test jedf=6528) PROTEUS (test Not detected Not detected hmvj=4436249) SERRATIA MARCESCENS (test Not detected Not detected kbkx=3893703) ELSA ALBICANS (test Not detected Not detected fvad=1656008) ELSA GLABRATA (test Not detected Not detected sojh=5558597) ELSA KRUSEI (test Not detected Not detected kesh=0725445) ELSA PARAPSILOSIS (test Not detected Not detected kgpd=9005801) ELSA TROPICALIS (test Not detected Not detected pezg=9498712) ESCHERICHIA COLI (test Not detected Not detected mipb=8695539) METHICILLIN-RESISTANCE Not detected Not detected GENE (test ldon=1634355) VANCOMYCIN-RESISTANCE GENE (test xcwz=3748179) CARBAPENEM-RESISTANCE GENE (test twfd=7379836) ENTEROCOCCUS-BEAKER (test Not detected Not detected qoyh=1507968) PSEUDOMONAS Not detected Not detected AERUGINOSA-BEAKER (test kvdz=8898198) Other bacteria and resistance markers not targeted by this PCR panel cannot be excluded; therefore clinical correlation and follow up of serology, culture results, and other molecular studies is required. The results are not intended to be used as the sole means for clinical diagnosis or patient management decisions. This sample was tested at the [facility] using the [employer] Blood Culture ID Panel. It is FDA cleared and has been verified and approved by the [facility] for clinical use. This laboratory is CLIA-certified and College ofAmerican Pathologists (CAP)-accredited to perform high complexity testing.CBC W/PLT COUNT & AUTO [id number] 13:57:00 Test Item Value Reference Range Comments WHITE BLOOD CELL COUNT (BEAKER) (test iell=716) 7.6 K/ L 3.5-10.5 RED BLOOD CELL COUNT (BEAKER) (test qcpl=438) 2.39 M/ L 4.63-6.08 HEMOGLOBIN (BEAKER) (test elqo=280) 8.7 GM/DL 13.7-17.5 HEMATOCRIT (BEAKER) (test drvq=911) 25.5 % 40.1-51.0 MEAN CORPUSCULAR VOLUME (BEAKER) (test lxlz=386) 106.7 fL 79.0-92.2 MEAN CORPUSCULAR HEMOGLOBIN (BEAKER) (test 36.4 pg 25.7-32.2 hbqj=212) MEAN CORPUSCULAR HEMOGLOBIN CONC (BEAKER) (test 34.1 GM/DL 32.3-36.5 umql=017) RED CELL DISTRIBUTION WIDTH (BEAKER) (test 19.9 % 11.6-14.4 zlpd=055) PLATELET COUNT (BEAKER) (test pvnx=357) 47 K/CU MM 150-450 MEAN PLATELET VOLUME (BEAKER) (test jwmx=497) 11.5 fL 9.4-12.4 NUCLEATED RED BLOOD CELLS (BEAKER) (test 0 /100 WBC 0-0 ncln=041) (MANUAL DIFFERENTIAL)2018-12-12 13:57:00 Test Item Value Reference Range Comments NEUTROPHILS - REL (DIFF) (BEAKER) (test 61 % rljw=0408) LYMPHOCYTES - REL (DIFF) (BEAKER) (test 5 % eiwu=4663) MONOCYTES - REL (DIFF) (BEAKER) (test iego=4572) 7 % EOSINOPHILS - REL (DIFF) (BEAKER) (test 2 % oign=0365) BANDS - REL (DIFF) (BEAKER) (test reta=4663) 25 % 0-10 NEUTROPHILS - ABS (DIFF) (BEAKER) (test 4.64 K/ L 1.80-8.00 geee=2017) LYMPHOCYTES - ABS (DIFF) (BEAKER) (test 0.38 K/ L 1.48-4.50 frjl=0447) MONOCYTES - ABS (DIFF) (BEAKER) (test ifsz=2905) 0.53 K/ L 0.00-1.30 EOSINOPHILS - ABS (DIFF) (BEAKER) (test 0.15 K/ L 0.00-0.50 tagq=5321) BANDS-ABS (DIFF) (BEAKER) (test vbta=0288) 1.9 K/ L 0.0-0.8 TOTAL COUNTED (BEAKER) (test nbsr=6796) 100 BANDS + SEGMENTED NEUTROPHILS (BEAKER) (test 6.54 hbqi=8491) WBC MORPHOLOGY (BEAKER) (test pvjj=808) Normal PLT MORPHOLOGY (BEAKER) (test rgjy=885) Normal ANISOCYTOSIS (BEAKER) (test bcxb=382) 2+ moderate ASHLEY CELLS (BEAKER) (test qwnx=222) 1+ few HYPOCHROMIA (BEAKER) (test gthk=322) 1+ few MACROCYTES (BEAKER) (test ksrk=040) 2+ moderate MICROCYTES (BEAKER) (test pmak=281) 1+ few OVALOCYTES (BEAKER) (test pxzb=530) 1+ few POIKILOCYTES (BEAKER) (test fjud=986) 1+ few POLYCHROMATOPHILLIC RBCS(BEAKER) (test lviz=251) 1+ few CT, BRAIN, WITHOUT [id number] 13:12:00FINAL REPORT CT, BRAIN, WITHOUT CONTRAST INDICATION: [...] is recommended for further characterization. Signed: Tesha Baeza Verified Date/Time: 12/12/2018 13:12:48 [id number] 08:41:00 Test Item Value Reference Range Comments MAGNESIUM (BEAKER) (test usia=170) 1.9 mg/dL 1.6-2.6 LIPID [id number] 08:41:00 Test Item Value Reference Range Comments TRIGLYCERIDES (BEAKER) (test lotb=930) 68 mg/dL CHOLESTEROL (BEAKER) (test flur=593) 105 mg/dL HDL CHOLESTEROL (BEAKER) (test oktf=068) 7 mg/dL LDL CHOLESTEROL CALCULATED (BEAKER) (test 84 mg/dL vscj=915) Triglyceride Reference Range: Low Risk <150 Borderline 150- 199 High Risk 200-499 Very High Risk >=500Cholesterol Reference Range: Low Risk <200 Borderline 200-239 High Risk > 240HDL Cholesterol Reference Range: Low Risk >=60 High Risk <40LDL Cholesterol Reference Range: Optimal <100 Near Optimal 100-129 Borderline 130-159 High 160-189 Very High >=190 Specimen moderatelyictericLACTIC ACID, [id number] 07:54:00 Test Item Value Reference Range Comments LACTATE BLOOD VENOUS (2) (BEAKER) (test 1.1 mmol/L 0.5-2.2 tmka=9463) Specimen moderately ictericBASIC METABOLIC [id number] 07:16:00 Test Item Value Reference Range Comments SODIUM (BEAKER) (test 129 meq/L 136-145 vneh=745) POTASSIUM (BEAKER) (test 3.6 meq/L 3.5-5.1 qugz=751) CHLORIDE (BEAKER) (test 101 meq/L 98-107 wrrc=836) CO2 (BEAKER) (test 19 meq/L 22-29 vrxa=071) BLOOD UREA NITROGEN 53 mg/dL 7-21 (BEAKER) (test kgqc=357) CREATININE (BEAKER) (test 2.65 mg/dL 0.57-1.25 edgi=805) GLUCOSE RANDOM (BEAKER) 103 mg/dL 70-105 (test gfyr=410) CALCIUM (BEAKER) (test 7.6 mg/dL 8.4-10.2 pquw=871) EGFR (BEAKER) (test 25 mL/min/1.73 sq m ESTIMATED GFR IS NOT pgff=4039) ACCURATE CREATININE CLEARANCE IN PREDICTING GLOMERULAR FILTRATION RATE. ESTIMATED GFR IS NOT APPLICABLE FOR DIALYSIS PATIENTS. Specimen moderately [id number] 07:13:00 Test Item Value Reference Range Comments PHOSPHORUS (BEAKER) (test fkoz=918) 4.2 mg/dL 2.3-4.7 HEPATIC FUNCTION [id number] 07:13:00 Test Item Value Reference Range Comments TOTAL PROTEIN (BEAKER) (test lfhp=254) 6.3 gm/dL 6.0-8.3 ALBUMIN (BEAKER) (test ogju=2328) 2.0 g/dL 3.5-5.0 BILIRUBIN TOTAL (BEAKER) (test cdus=310) 6.2 mg/dL 0.2-1.2 BILIRUBIN DIRECT (BEAKER) (test bazw=474) 4.0 mg/dL 0.1-0.5 ALKALINE PHOSPHATASE (BEAKER) (test ddhd=602) 161 U/L 40-150 AST (SGOT) (BEAKER) (test kzix=405) 61 U/L 5-34 ALT (SGPT) (BEAKER) (test hlsn=988) 29 U/L 6-55 Specimen moderately ictericPROTHROMBIN [id number] 05:25:00 Test Item Value Reference Range Comments PROTIME (BEAKER) (test ufqo=554) 25.8 seconds 11.9-14.2 INR (BEAKER) (test njqg=991) 2.5 <=5.9 Effective 09/16/2018: PT Reference Range ChangeNew: 11.9-14.2 Previous: 11.7- 14.7RECOMMENDED COUMADIN/WARFARIN INR THERAPY RANGESSTANDARD DOSE: 2.0-3.0 Includes: PROPHYLAXIS for venous thrombosis, systemic embolization; TREATMENT for venous thrombosis and/or pulmonary embolus.HIGH RISK: Target INR is2.5-3.5 for patients wiht mechanical heart valves.BLOOD GAS, [id number] 05:16:00 Test Item Value Reference Range Comments PH VENOUS (BEAKER) (test qbaa=340) 7.44 7.32-7.42 PCO2 VENOUS (BEAKER) (test kjdl=837) 32 mmHg 41-51 PO2 VENOUS (BEAKER) (test meok=966) 59 mmHg 25-40 O2 SATURATION VENOUS (BEAKER) (test sldp=097) 92.5 % 40.0-70.0 HCO3 VENOUS (BEAKER) (test ywnk=461) 21 mmol/L 21-29 BASE EXCESS VENOUS (BEAKER) (test qknv=164) -2.6 mmol/L -2.0-3.0 PATIENT TEMPERATURE (BEAKER) (test xbqg=7624) 36.3 C FIO2 (BEAKER) (test dpzc=7496) 21.0 % CBC W/PLT COUNT & AUTO [id number] 23:25:00 Test Item Value Reference Range Comments WHITE BLOOD CELL COUNT (BEAKER) (test dwer=275) 7.7 K/ L 3.5-10.5 RED BLOOD CELL COUNT (BEAKER) (test batb=052) 2.55 M/ L 4.63-6.08 HEMOGLOBIN (BEAKER) (test pnvt=563) 9.3 GM/DL 13.7-17.5 HEMATOCRIT (BEAKER) (test vvqg=788) 27.2 % 40.1-51.0 MEAN CORPUSCULAR VOLUME (BEAKER) (test mbwh=085) 106.7 fL 79.0-92.2 MEAN CORPUSCULAR HEMOGLOBIN (BEAKER) (test 36.5 pg 25.7-32.2 ajul=349) MEAN CORPUSCULAR HEMOGLOBIN CONC (BEAKER) (test 34.2 GM/DL 32.3-36.5 faho=996) RED CELL DISTRIBUTION WIDTH (BEAKER) (test 19.6 % 11.6-14.4 udwx=208) PLATELET COUNT (BEAKER) (test lvjb=960) 59 K/CU MM 150-450 MEAN PLATELET VOLUME (BEAKER) (test pfxm=965) 11.5 fL 9.4-12.4 NUCLEATED RED BLOOD CELLS (BEAKER) (test 0 /100 WBC 0-0 rrbx=654) (CELLAVISION MANUAL DIFF)2018-12-11 23:25:00 Test Item Value Reference Range Comments NEUTROPHILS - REL (CELLAVISION)(BEAKER) (test 90 % lxts=3033) LYMPHOCYTES - REL (CELLAVISION)(BEAKER) (test 1 % fytw=4208) MONOCYTES - REL (CELLAVISION)(BEAKER) (test 1 % pama=6146) EOSINOPHILS - REL (CELLAVISION)(BEAKER) (test 1 % cmxf=3358) BASOPHILS - REL (CELLAVISION)(BEAKER) (test 1 % krqa=0671) METAMYELOCYTES - REL (CELLAVISION)(BEAKER) (test 1 % 0-0 bupr=8171) MYELOCYTES - REL (CELLAVISION)(BEAKER) (test 1 % 0-0 hdjf=4323) PROMYELOCYTES - REL (CELLAVSION)(BEAKER) (test 3 % 0-0 hmqv=9553) BANDS - REL (CELLAVISION)(BEAKER) (test 1 % 0-10 qcws=0998) NEUTROPHILS - ABS (CELLAVISION)(BEAKER) (test 6.93 K/ul 1.78-5.38 hvjk=2154) LYMPHOCYTES - ABS (CELLAVISION)(BEAKER) (test 0.08 K/ul 1.32-3.57 cwrh=0740) MONOCYTES - ABS (CELLAVISION)(BEAKER) (test 0.08 K/uL 0.30-0.82 rwyu=5396) EOSINOPHILS - ABS (CELLAVISION)(BEAKER) (test 0.08 K/uL 0.04-0.54 ytml=2086) BASOPHILS - ABS (CELLAVISION)(BEAKER) (test 0.08 K/uL 0.01-0.08 bvtq=2305) METAMYELOCYTES - ABS (CELLAVISION)(BEAKER) (test 0.08 K/uL 0.00-0.00 oevz=2314) MYELOCYTES-ABS (CELLAVISION)(BEAKER) (test 0.08 K/uL 0.00-0.00 kygw=2231) PROMYELOCYTES - ABS (CELLAVISION)(BEAKER) (test 0.23 K/uL 0.00-0.00 bpxo=0094) BANDS - ABS (CELLAVISION)(BEAKER) (test 0.08 K/uL 0.00-0.80 hdnf=7096) TOTAL COUNTED (BEAKER) (test ztzu=9652) 100 SMUDGE CELLS (BEAKER) (test wukl=1208) Present GIANT PLATELETS (BEAKER) (test bznf=810) Present POLYCHROMATOPHILLIC RBCS(BEAKER) (test nvhs=315) 1+ few ANISOCYTOSIS (BEAKER) (test yafb=643) 3+ many MACROCYTES (BEAKER) (test hzun=101) 3+ many POIKILOCYTES (BEAKER) (test lhph=065) 1+ few SCHISTOCYTES (BEAKER) (test lsfe=801) 2+ moderate SPHEROCYTES (BEAKER) (test svcy=291) 1+ few ELLIPTOCYTES (BEAKER) (test lers=117) 2+ moderate OVALOCYTES (BEAKER) (test mkml=772) 1+ few STOMATOCYTES (BEAKER) (test ilqq=083) 1+ few ACANTHOCYTES (BEAKER) (test muyk=086) 1+ few ARTIFACT (CELLAVISION)(BEAKER) (test qaad=2902) Present HELMET CELLS (CELLAVISION)(BEAKER) (test 1+ few tqed=5442) PLATELET CONCENTRATION (CELLAVISION)(BEAKER) Decreased (test usfe=2367) Received comment: User comments: Slide comments:BASIC METABOLIC [id number] 23:18:00 Test Item Value Reference Range Comments SODIUM (BEAKER) (test 127 meq/L 136-145 njka=904) POTASSIUM (BEAKER) (test 3.9 meq/L 3.5-5.1 qzlm=142) CHLORIDE (BEAKER) (test 101 meq/L 98-107 rmdi=528) CO2 (BEAKER) (test 19 meq/L 22-29 dmpj=714) BLOOD UREA NITROGEN 46 mg/dL 7-21 (BEAKER) (test wkeu=961) CREATININE (BEAKER) (test 2.21 mg/dL 0.57-1.25 xrox=111) GLUCOSE RANDOM (BEAKER) 110 mg/dL 70-105 (test iwdq=566) CALCIUM (BEAKER) (test 7.7 mg/dL 8.4-10.2 xecc=427) EGFR (BEAKER) (test 31 mL/min/1.73 sq m ESTIMATED GFR IS NOT qpnf=8389) ACCURATE CREATININE CLEARANCE IN PREDICTING GLOMERULAR FILTRATION RATE. ESTIMATED GFR IS NOT APPLICABLE FOR DIALYSIS PATIENTS. Specimen moderately ictericHEPATIC FUNCTION [id number] 23:02:00 Test Item Value Reference Range Comments TOTAL PROTEIN (BEAKER) (test lzwf=546) 7.0 gm/dL 6.0-8.3 ALBUMIN (BEAKER) (test bimo=7898) 2.1 g/dL 3.5-5.0 BILIRUBIN TOTAL (BEAKER) (test idki=709) 7.0 mg/dL 0.2-1.2 BILIRUBIN DIRECT (BEAKER) (test etia=265) 3.8 mg/dL 0.1-0.5 ALKALINE PHOSPHATASE (BEAKER) (test plox=385) 165 U/L 40-150 AST (SGOT) (BEAKER) (test srgj=272) 61 U/L 5-34 ALT (SGPT) (BEAKER) (test xefr=821) 30 U/L 6-55 Specimen moderately ictericHEMOGLOBIN [id number] 14:39:00 Test Item Value Reference Range Comments HEMOGLOBIN A1C (ANA MARIA) (test tlpy=626) 4.0 % 4.3-6.1 MYOCARD IMAGING, MULTI, PHARM, [id number] 13:54:00FINAL REPORT PROCEDURE: MYOCARDIAL PERFUSION SPECT IMAGING (Rest/Stress)CPT CODE : 26262 INDICATION: Preoperative evaluation for liver transplantation CARDIOVASCULAR [...] Verified Date/Time: 10/15/2018 13:54 :29 Reading Location: [address] Reading Room CRYPTOCOCCAL [id number] 13:16:00 Test Item Value Reference Range Comments CRYPTOCOCCAL ANTIGEN, SERUM (BEAKER) (test Negative Negative, Interference dqpx=3428) [id number] 13:16:00 Test Item Value Reference Range Comments RPR SCREEN (BEAKER) (test efgw=272) Nonreactive Nonreactive URINALYSIS W/ [id number] 11:42:00 Test Item Value Reference Range Comments COLOR (BEAKER) (test vjmz=080) Dark Yellow CLARITY (BEAKER) (test tavx=041) Clear SPECIFIC GRAVITY UA (BEAKER) (test lzwn=004) 1.019 1.001-1.035 PH UA (BEAKER) (test wobu=878) 5.5 5.0-8.0 PROTEIN UA (BEAKER) (test ybqt=034) Negative Negative GLUCOSE UA (BEAKER) (test oxcr=375) Negative Negative KETONES UA (BEAKER) (test msez=054) Negative Negative BILIRUBIN UA (BEAKER) (test mdcz=091) Negative Negative BLOOD UA (BEAKER) (test pabx=579) Negative Negative NITRITE UA (BEAKER) (test fusg=947) Negative Negative LEUKOCYTE ESTERASE UA (BEAKER) (test bktf=823) Negative Negative UROBILINOGEN UA (BEAKER) (test ozrd=546) 3.0 mg/dL 0.2-1.0 RBC UA (BEAKER) (test gqgo=949) < /HPF WBC UA (BEAKER) (test bkkx=102) 3 /HPF BACTERIA (BEAKER) (test sdrj=826) Rare MUCUS (BEAKER) (test ujhj=4945) Occasional SOURCE(BEAKER) (test mdmw=0830) CYTOMEGALOVIRUS ANTIBODY, [id number] 10:44:00 Test Item Value Reference Range Comments CYTOMEGALOVIRUS, IGG (BEAKER) (test hzah=8630) Positive Negative, Equivocal CMV IgG Result Interpretation: </=0.8 Al Negative 0.9-1.0 Al Equivocal &gt ;/=1.1 Al PositiveCYTOMEGALOVIRUS ANTIBODY, [id number] 10:44:00 Test Item Value Reference Range Comments CYTOMEGALOVIRUS IGM ANTIBODY (BEAKER) (test Equivocal Negative, Equivocal krms=5284) CMV IgM Result Interpretation: </=0.8 Al Negative 0.9-1.0 Al Equivocal >/=1.1 Al PositiveEBV ANTIBODY, [id number] 10:44:00 Test Item Value Reference Range Comments JOSEPH LAMAR VIRAL CAPSID ANTIGEN IGG (BEAKER) Positive Negative, Equivocal (test nmem=1372) Joseph Lamar Viral Capsid Antigen IgG Result Interpretation: </=0.8 Al Negative 0.9-1.0 Al Equivocal >/=1.1 Al PositiveEBV ANTIBODY, [id number] 10:44:00 Test Item Value Reference Range Comments JOSEPH LAMAR VIRAL CAPSID ANTIGEN IGM (BEAKER) Negative Negative, Equivocal (test ldqb=6996) Joseph Lamar Viral Capsid Antigen IgM Result Interpretation: </=0.8 Al Negative 0.9-1.0 Al Equivocal >/=1.1 Al PositiveHEPATITIS B CORE ANTIBODY , [id number] 08:51:00 Test Item Value Reference Range Comments HEPATITIS B CORE IGM ANTIBODY (BEAKER) (test Nonreactive Nonreactive jpms=404) HIV-1 ANTIGEN WITH HIV-1/2 [id number] 08:51:00 Test Item Value Reference Range Comments HIV-1 ANTIGEN WITH HIV 1\T\2 ANTIBODY (2) Nonreactive Nonreactive (BEAKER) (test lcsn=3378) [id number] 08:49:00 Test Item Value Reference Range Comments PROSTATE SPECIFIC ANTIGEN (BEAKER) (test twmt=927) 0.0 ng/mL 0.0-4.0 CARCINOEMBRYONIC ANTIGEN (CEA)2018-10-15 08:47:00 Test Item Value Reference Range Comments CARCINOEMBRYONIC ANTIGEN (BEAKER) (test xvbl=357) 12.8 ng/mL 0.0-5.0 HEPATITIS A ANTIBODY, [id number] 08:47:00 Test Item Value Reference Range Comments HEPATITIS A IGM ANTIBODY (BEAKER) (test Nonreactive Nonreactive bazd=733) HEPATITIS B CORE ANTIBODY, [id number] 08:47:00 Test Item Value Reference Range Comments HEPATITIS B CORE TOTAL ANTIBODY (BEAKER) (test Nonreactive Nonreactive ugju=320) VITAMIN D, [id number] 08:45:00 Test Item Value Reference Range Comments VITAMIN D 25-OH (BEAKER) (test cqjd=7322) 8.9 ng/mL 6.6-49.9 Effective 01/29/2017: Reference Range ChangeNew: 6.6-49.9 ng/mL Previous: 13.0 -47.8 ng/mLRecommended Vitamin D Target Range: 30.0-40.0 ng/[id number] 08:26:00 Test Item Value Reference Range Comments MAGNESIUM (BEAKER) (test sjjw=710) 1.5 mg/dL 1.6-2.6 [id number] 08:26:00 Test Item Value Reference Range Comments PHOSPHORUS (BEAKER) (test ckcu=875) 3.9 mg/dL 2.3-4.7 URIC [id number] 08:26:00 Test Item Value Reference Range Comments URIC ACID (BEAKER) (test kirc=443) 3.7 mg/dL 2.6-7.2 Specimen moderately ictericCOMPREHENSIVE METABOLIC [id number] 08:26:00 Test Item Value Reference Range Comments TOTAL PROTEIN (BEAKER) 7.7 gm/dL 6.0-8.3 (test pcvk=992) ALBUMIN (BEAKER) (test 2.2 g/dL 3.5-5.0 spsm=8890) ALKALINE PHOSPHATASE 165 U/L 40-150 (BEAKER) (test oleh=941) BILIRUBIN TOTAL (BEAKER) 6.3 mg/dL 0.2-1.2 (test occi=722) SODIUM (BEAKER) (test 135 meq/L 136-145 fhue=418) POTASSIUM (BEAKER) (test 4.1 meq/L 3.5-5.1 brrs=146) CHLORIDE (BEAKER) (test 105 meq/L 98-107 coiz=045) CO2 (BEAKER) (test 27 meq/L 22-29 vgdh=265) BLOOD UREA NITROGEN 15 mg/dL 7-21 (BEAKER) (test aqhk=053) CREATININE (BEAKER) (test 0.88 mg/dL 0.57-1.25 xfhj=081) GLUCOSE RANDOM (BEAKER) 84 mg/dL 70-105 (test budd=618) CALCIUM (BEAKER) (test 8.9 mg/dL 8.4-10.2 atoc=770) AST (SGOT) (BEAKER) (test 125 U/L 5-34 wpnh=868) ALT (SGPT) (BEAKER) (test 49 U/L 6-55 orsv=102) EGFR (BEAKER) (test 91 mL/min/1.73 sq m ESTIMATED GFR IS NOT slxn=1309) ACCURATE CREATININE CLEARANCE IN PREDICTING GLOMERULAR FILTRATION RATE. ESTIMATED GFR IS NOT APPLICABLE FOR DIALYSIS PATIENTS. Specimen moderately ictericLIPID [id number] 08:26:00 Test Item Value Reference Range Comments TRIGLYCERIDES (BEAKER) (test yxvq=056) 70 mg/dL CHOLESTEROL (BEAKER) (test ovou=721) 121 mg/dL HDL CHOLESTEROL (BEAKER) (test bstb=324) 8 mg/dL LDL CHOLESTEROL CALCULATED (BEAKER) (test 99 mg/dL ziba=772) Triglyceride Reference Range: Low Risk <150 Borderline 150- 199 High Risk 200-499 Very High Risk >=500Cholesterol Reference Range: Low Risk <200 Borderline 200-239 High Risk > 240HDL Cholesterol Reference Range: Low Risk >=60 High Risk <40LDL Cholesterol Reference Range: Optimal <100 Near Optimal 100-129 Borderline 130-159 High 160-189 Very High >=190 Specimen moderatelyictericBILIRUBIN, [id number] 08:26:00 Test Item Value Reference Range Comments BILIRUBIN DIRECT (BEAKER) (test zetc=437) 3.6 mg/dL 0.1-0.5 GAMMA GLUTAMYL TRANSFERASE (GGT)2018-10-15 08:26:00 Test Item Value Reference Range Comments GAMMA GLUTAMYL TRANSFERASE (BEAKER) (test uwnx=253) 68 U/L 9-64 Specimen moderately [id number] 08:25:00 Test Item Value Reference Range Comments TRANSFERRIN (BEAKER) (test bvuw=064) 106 mg/dL 174-382 Specimen moderately ictericIRON, TIBC, % SAT. (WITHOUT FERRITIN)2018-10-15 08:25 :00 Test Item Value Reference Range Comments IRON (BEAKER) (test cvar=928) 134.0 ug/dL 40.0-160.0 TOTAL IRON BINDING CAPACITY (BEAKER) (test 133 ug/dL 250-450 lgaq=687) IRON % SATURATION (2) (BEAKER) (test oluy=2553) 101 % 20-55 [id number] 08:22:00 Test Item Value Reference Range Comments ETHANOL (BEAKER) (test ttmv=625) < mg/dL <=10 [id number] 08:14:00 Test Item Value Reference Range Comments FIBRINOGEN LEVEL (BEAKER) (test ybfd=793) 201 mg/dl 225-434 [id number] 08:09:00 Test Item Value Reference Range Comments PARTIAL THROMBOPLASTIN TIME (BEAKER) (test 49.2 seconds 22.5-36.0 axps=695) CALCIUM, [id number] 08:09:00 Test Item Value Reference Range Comments CALCIUM IONIZED (BEAKER) (test udtj=582) 1.07 mmol/L 1.12-1.27 PH, BLOOD (BEAKER) (test sgng=3210) 7.44 PROTHROMBIN [id number] 08:08:00 Test Item Value Reference Range Comments PROTIME (BEAKER) (test aicn=381) 21.4 seconds 11.9-14.2 INR (BEAKER) (test uutj=228) 2.0 <=5.9 Effective 09/16/2018: PT Reference Range ChangeNew: 11.9-14.2 Previous: 11.7- 14.7RECOMMENDED COUMADIN/WARFARIN INR THERAPY RANGESSTANDARD DOSE: 2.0-3.0 Includes: PROPHYLAXIS for venous thrombosis, systemic embolization; TREATMENT for venous thrombosis and/or pulmonary embolus.HIGH RISK: Target INR is2.5-3.5 for patients wiht mechanical heart valves.CBC W/PLT COUNT & AUTO [id number] 07:59:00 Test Item Value Reference Range Comments WHITE BLOOD CELL COUNT (BEAKER) (test vkrj=227) 5.4 K/ L 3.5-10.5 RED BLOOD CELL COUNT (BEAKER) (test liyb=053) 3.03 M/ L 4.63-6.08 HEMOGLOBIN (BEAKER) (test pcpq=954) 11.0 GM/DL 13.7-17.5 HEMATOCRIT (BEAKER) (test eanr=850) 32.2 % 40.1-51.0 MEAN CORPUSCULAR VOLUME (BEAKER) (test usdh=154) 106.3 fL 79.0-92.2 MEAN CORPUSCULAR HEMOGLOBIN (BEAKER) (test 36.3 pg 25.7-32.2 crag=435) MEAN CORPUSCULAR HEMOGLOBIN CONC (BEAKER) (test 34.2 GM/DL 32.3-36.5 edyt=908) RED CELL DISTRIBUTION WIDTH (BEAKER) (test 14.7 % 11.6-14.4 kxze=574) PLATELET COUNT (BEAKER) (test skjo=946) 76 K/CU MM 150-450 MEAN PLATELET VOLUME (BEAKER) (test kzfu=914) 11.8 fL 9.4-12.4 NUCLEATED RED BLOOD CELLS (BEAKER) (test 0 /100 WBC 0-0 ihnj=850) NEUTROPHILS RELATIVE PERCENT (BEAKER) (test 59 % vedk=996) LYMPHOCYTES RELATIVE PERCENT (BEAKER) (test 29 % ecst=692) MONOCYTES RELATIVE PERCENT (BEAKER) (test 6 % zziy=184) EOSINOPHILS RELATIVE PERCENT (BEAKER) (test 4 % xeov=885) BASOPHILS RELATIVE PERCENT (BEAKER) (test 1 % mjnb=073) NEUTROPHILS ABSOLUTE COUNT (BEAKER) (test 3.19 K/ L 1.78-5.38 netr=666) LYMPHOCYTES ABSOLUTE COUNT (BEAKER) (test 1.58 K/ L 1.32-3.57 sihj=928) MONOCYTES ABSOLUTE COUNT (BEAKER) (test jthz=870) 0.32 K/ L 0.30-0.82 EOSINOPHILS ABSOLUTE COUNT (BEAKER) (test 0.23 K/ L 0.04-0.54 yxfq=480) BASOPHILS ABSOLUTE COUNT (BEAKER) (test fcpi=079) 0.03 K/ L 0.01-0.08 IMMATURE GRANULOCYTES-RELATIVE PERCENT (BEAKER) 0 % 0-1 (test omdn=1214) RAD, CHEST, 2 [id number] 13:28:00Reason for Exam:->Pre-transplant evaluation for liver transplantFINAL [...] Verified Date/ Time: 10/14/2018 13:28:52 Reading Location: [address] Radiology Reading Room 01: 28 PMRAD, MANDIBLE, MIN 4 [id number] 12:14:00Reason for Exam:->Pre- transplant evaluation for liver [...] Gooden Verified Date/Time: 10/14/2018 12:14:27 Reading Location: [facility] Radiology Reading Room Electronically signed by: YAN GOODEN M.D. on 12:14 PMRAD, BONE DENSITY [id number] 12:10:00Reason for Exam:-> Pre-transplant evaluation for liver [...] and the Z-score is -1.4. Signed: Juanita Wat[place] Verified Date/Time: 10/14/2018 12:10:27 Reading Location: [facility] Mammo Reading Room 12 :10 PMCBC W/PLT COUNT & AUTO [id number] 12:37:00 Test Item Value Reference Range Comments WHITE BLOOD CELL COUNT (BEAKER) (test ovmm=627) 6.1 K/ L 3.5-10.5 RED BLOOD CELL COUNT (BEAKER) (test bmit=798) 3.15 M/ L 4.63-6.08 HEMOGLOBIN (BEAKER) (test nbvs=340) 11.5 GM/DL 13.7-17.5 HEMATOCRIT (BEAKER) (test oxqs=768) 34.6 % 40.1-51.0 MEAN CORPUSCULAR VOLUME (BEAKER) (test atgu=850) 109.8 fL 79.0-92.2 MEAN CORPUSCULAR HEMOGLOBIN (BEAKER) (test 36.5 pg 25.7-32.2 pewg=179) MEAN CORPUSCULAR HEMOGLOBIN CONC (BEAKER) (test 33.2 GM/DL 32.3-36.5 yhwq=886) RED CELL DISTRIBUTION WIDTH (BEAKER) (test 15.4 % 11.6-14.4 grvz=099) PLATELET COUNT (BEAKER) (test hdps=551) 83 K/CU MM 150-450 MEAN PLATELET VOLUME (BEAKER) (test nndt=403) 12.3 fL 9.4-12.4 NUCLEATED RED BLOOD CELLS (BEAKER) (test 0 /100 WBC 0-0 yyrw=537) (CELLAVISION MANUAL DIFF)2018-10-05 12:37:00 Test Item Value Reference Range Comments NEUTROPHILS - REL (CELLAVISION)(BEAKER) (test 75 % eexr=3916) LYMPHOCYTES - REL (CELLAVISION)(BEAKER) (test 13 % sjji=1542) MONOCYTES - REL (CELLAVISION)(BEAKER) (test 12 % dreq=7131) EOSINOPHILS - REL (CELLAVISION)(BEAKER) (test 1 % gkgl=3933) NEUTROPHILS - ABS (CELLAVISION)(BEAKER) (test 4.58 K/ul 1.78-5.38 onao=9723) LYMPHOCYTES - ABS (CELLAVISION)(BEAKER) (test 0.79 K/ul 1.32-3.57 dvaa=3964) MONOCYTES - ABS (CELLAVISION)(BEAKER) (test 0.73 K/uL 0.30-0.82 ojfr=1042) EOSINOPHILS - ABS (CELLAVISION)(BEAKER) (test 0.06 K/uL 0.04-0.54 kazm=9376) TOTAL COUNTED (BEAKER) (test dnfy=9922) 100 WBC MORPHOLOGY (BEAKER) (test tsms=417) Normal PLT MORPHOLOGY (BEAKER) (test ladx=940) Normal ANISOCYTOSIS (BEAKER) (test gwkr=223) 3+ many MACROCYTES (BEAKER) (test hgud=703) 3+ many ARTIFACT (CELLAVISION)(BEAKER) (test dlxh=9989) Present PLATELET CONCENTRATION (CELLAVISION)(BEAKER) (test Decreased kjqo=8149) Received comment: User comments: Slide comments:BASIC METABOLIC [id number] 12:30:00 Test Item Value Reference Range Comments SODIUM (BEAKER) (test 135 meq/L 136-145 gezo=033) POTASSIUM (BEAKER) (test 4.3 meq/L 3.5-5.1 rrlw=234) CHLORIDE (BEAKER) (test 103 meq/L 98-107 wrpm=891) CO2 (BEAKER) (test 26 meq/L 22-29 tkld=713) BLOOD UREA NITROGEN 9 mg/dL 7-21 (BEAKER) (test ctyj=943) CREATININE (BEAKER) (test 0.78 mg/dL 0.57-1.25 aufb=749) GLUCOSE RANDOM (BEAKER) 75 mg/dL 70-105 (test jbgb=383) CALCIUM (BEAKER) (test 8.1 mg/dL 8.4-10.2 arzt=864) EGFR (BEAKER) (test 105 mL/min/1.73 sq m ESTIMATED GFR IS NOT jozo=8327) ACCURATE CREATININE CLEARANCE IN PREDICTING GLOMERULAR FILTRATION RATE. ESTIMATED GFR IS NOT APPLICABLE FOR DIALYSIS PATIENTS. Specimen moderately ictericHEPATIC FUNCTION [id number] 12:30:00 Test Item Value Reference Range Comments TOTAL PROTEIN (BEAKER) (test joez=993) 8.2 gm/dL 6.0-8.3 ALBUMIN (BEAKER) (test azqo=3637) 2.3 g/dL 3.5-5.0 BILIRUBIN TOTAL (BEAKER) (test byfy=920) 5.3 mg/dL 0.2-1.2 BILIRUBIN DIRECT (BEAKER) (test gnso=817) 3.6 mg/dL 0.1-0.5 ALKALINE PHOSPHATASE (BEAKER) (test kzhp=938) 162 U/L 40-150 AST (SGOT) (BEAKER) (test rcmb=103) 180 U/L 5-34 ALT (SGPT) (BEAKER) (test pwra=961) 67 U/L 6-55 Specimen moderately ictericPROTHROMBIN TIME/[id number] 12:03:00 Test Item Value Reference Range Comments PROTIME (BEAKER) (test opcq=979) 21.8 seconds 11.9-14.2 INR (BEAKER) (test wvaw=665) 2.0 <=5.9 Effective 09/16/2018: PT Reference Range ChangeNew: 11.9-14.2 Previous: 11.7- 14.7RECOMMENDED COUMADIN/WARFARIN INR THERAPY RANGESSTANDARD DOSE: 2.0-3.0 Includes: PROPHYLAXIS for venous thrombosis, systemic embolization; TREATMENT for venous thrombosis and/or pulmonary embolus.HIGH RISK: Target INR is2.5-3.5 for patients wiht mechanical heart valves.BLOOD [id number] 08:00:00 Test Item Value Reference Range Comments CULTURE (BEAKER) (test mmpm=1745) No growth in 5 days ANTI-MITOCHONDRIAL AB, REFLEX TO [id number] 08:08:00 Test Item Value Reference Range Comments SCAN RESULT (test mtfm=[id number]) MR, ABDOMEN, [id number] 08:58:00FINAL REPORT TECHNIQUE: MRI of the abdomen [...] 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 Signed: Nani Saenz MDReport Verified Date/Time: 09/17/2018 08:58:29 Reading Location: [facility] Diagnostic Imaging Reading Room - [place] [address] POCT- GLUCOSE [id number] 08:20:00 Test Item Value Reference Range Comments POC-GLUCOSE METER (BEAKER) 98 mg/dL 70-110 TESTED AT [address] (test zuep=1468) [facility] [address] COMPREHENSIVE METABOLIC [id number] 04:44:00 Test Item Value Reference Range Comments TOTAL PROTEIN (BEAKER) 5.9 gm/dL 6.0-8.3 (test befz=316) ALBUMIN (BEAKER) (test 1.8 g/dL 3.5-5.0 wmlj=1444) ALKALINE PHOSPHATASE 142 U/L 40-150 (BEAKER) (test uqvu=639) BILIRUBIN TOTAL (BEAKER) 6.3 mg/dL 0.2-1.2 (test dwbl=102) SODIUM (BEAKER) (test 135 meq/L 136-145 fbzh=537) POTASSIUM (BEAKER) (test 3.7 meq/L 3.5-5.1 ommq=282) CHLORIDE (BEAKER) (test 102 meq/L 98-107 cpvu=632) CO2 (BEAKER) (test 31 meq/L 22-29 ehzm=789) BLOOD UREA NITROGEN 9 mg/dL 7-21 (BEAKER) (test tnyc=994) CREATININE (BEAKER) (test 0.71 mg/dL 0.57-1.25 ejvj=441) GLUCOSE RANDOM (BEAKER) 88 mg/dL 70-105 (test lxat=271) CALCIUM (BEAKER) (test 7.5 mg/dL 8.4-10.2 pcrh=045) AST (SGOT) (BEAKER) (test 99 U/L 5-34 zvfz=917) ALT (SGPT) (BEAKER) (test 31 U/L 6-55 ghql=936) EGFR (BEAKER) (test 117 mL/min/1.73 sq ESTIMATED GFR IS NOT rivb=6363) m ACCURATE CREATININE CLEARANCE IN PREDICTING GLOMERULAR FILTRATION RATE. ESTIMATED GFR IS NOT APPLICABLE FOR DIALYSIS PATIENTS. Specimen moderately [id number] 04:41:00 Test Item Value Reference Range Comments MAGNESIUM (BEAKER) (test diqa=904) 1.7 mg/dL 1.6-2.6 PROTHROMBIN [id number] 04:28:00 Test Item Value Reference Range Comments PROTIME (BEAKER) (test mbst=800) 24.3 seconds 11.9-14.2 INR (BEAKER) (test cunq=418) 2.3 <=5.9 Effective 09/16/2018: PT Reference Range ChangeNew: 11.9-14.2 Previous: 11.7- 14.7RECOMMENDED COUMADIN/WARFARIN INR THERAPY RANGESSTANDARD DOSE: 2.0-3.0 Includes: PROPHYLAXIS for venous thrombosis, systemic embolization; TREATMENT for venous thrombosis and/or pulmonary embolus.HIGH RISK: Target INR is2.5-3.5 for patients wiht mechanical heart valves.CBC W/PLT COUNT & AUTO [id number] 04:20:00 Test Item Value Reference Range Comments WHITE BLOOD CELL COUNT (BEAKER) (test ufbw=220) 5.3 K/ L 3.5-10.5 RED BLOOD CELL COUNT (BEAKER) (test qcjq=665) 2.51 M/ L 4.63-6.08 HEMOGLOBIN (BEAKER) (test pyqb=288) 9.3 GM/DL 13.7-17.5 HEMATOCRIT (BEAKER) (test mqcw=021) 28.0 % 40.1-51.0 MEAN CORPUSCULAR VOLUME (BEAKER) (test vovv=202) 111.6 fL 79.0-92.2 MEAN CORPUSCULAR HEMOGLOBIN (BEAKER) (test 37.1 pg 25.7-32.2 ibqw=272) MEAN CORPUSCULAR HEMOGLOBIN CONC (BEAKER) (test 33.2 GM/DL 32.3-36.5 abru=085) RED CELL DISTRIBUTION WIDTH (BEAKER) (test 17.6 % 11.6-14.4 xdrr=285) PLATELET COUNT (BEAKER) (test dchk=361) 60 K/CU MM 150-450 MEAN PLATELET VOLUME (BEAKER) (test xjjv=672) 11.2 fL 9.4-12.4 NUCLEATED RED BLOOD CELLS (BEAKER) (test 0 /100 WBC 0-0 mgsw=940) NEUTROPHILS RELATIVE PERCENT (BEAKER) (test 62 % lfla=881) LYMPHOCYTES RELATIVE PERCENT (BEAKER) (test 24 % tcxj=315) MONOCYTES RELATIVE PERCENT (BEAKER) (test 9 % yoef=254) EOSINOPHILS RELATIVE PERCENT (BEAKER) (test 4 % klkp=362) BASOPHILS RELATIVE PERCENT (BEAKER) (test 1 % viun=499) NEUTROPHILS ABSOLUTE COUNT (BEAKER) (test 3.28 K/ L 1.78-5.38 zyjq=851) LYMPHOCYTES ABSOLUTE COUNT (BEAKER) (test 1.24 K/ L 1.32-3.57 vzjc=524) MONOCYTES ABSOLUTE COUNT (BEAKER) (test hzut=320) 0.46 K/ L 0.30-0.82 EOSINOPHILS ABSOLUTE COUNT (BEAKER) (test 0.23 K/ L 0.04-0.54 acty=001) BASOPHILS ABSOLUTE COUNT (BEAKER) (test fzjj=050) 0.04 K/ L 0.01-0.08 IMMATURE GRANULOCYTES-RELATIVE PERCENT (BEAKER) 0 % 0-1 (test oxjp=1294) POCT-GLUCOSE [id number] 00:39:00 Test Item Value Reference Range Comments POC-GLUCOSE METER (BEAKER) 98 mg/dL 70-110 TESTED AT [facility] [address] [place] [address] (test fqau=7735) [facility] [address] POCT-GLUCOSE [id number] 18:48:00 Test Item Value Reference Range Comments POC-GLUCOSE METER (BEAKER) 112 mg/dL 70-110 TESTED AT [address] (test mxxw=3236) [facility] [address] POCT-GLUCOSE [id number] 13:00:00 Test Item Value Reference Range Comments POC-GLUCOSE METER (BEAKER) 107 mg/dL 70-110 TESTED AT [address] (test oblc=1142) [facility] [address] URINALYSIS W/ [id number] 10:57:00 Test Item Value Reference Range Comments COLOR (BEAKER) (test gbum=240) Yellow CLARITY (BEAKER) (test eqpv=841) Clear SPECIFIC GRAVITY UA (BEAKER) (test xsym=628) 1.005 1.001-1.035 PH UA (BEAKER) (test qhyw=812) 6.5 5.0-8.0 PROTEIN UA (BEAKER) (test qoxh=943) Negative Negative GLUCOSE UA (BEAKER) (test cvju=447) Negative Negative KETONES UA (BEAKER) (test zgem=873) Negative Negative BILIRUBIN UA (BEAKER) (test gvph=107) Negative Negative BLOOD UA (BEAKER) (test xibz=711) Negative Negative NITRITE UA (BEAKER) (test zztb=150) Negative Negative LEUKOCYTE ESTERASE UA (BEAKER) (test jqiw=833) Negative Negative UROBILINOGEN UA (BEAKER) (test viwa=741) 2.0 mg/dL 0.2-1.0 RBC UA (BEAKER) (test escv=186) 0 /HPF WBC UA (BEAKER) (test vplk=035) < /HPF SOURCE(BEAKER) (test xjgf=9021) Urine, Voided COMPREHENSIVE METABOLIC [id number] 10:29:00 Test Item Value Reference Range Comments TOTAL PROTEIN (BEAKER) 5.9 gm/dL 6.0-8.3 (test yqdc=810) ALBUMIN (BEAKER) (test 1.9 g/dL 3.5-5.0 rbrw=9310) ALKALINE PHOSPHATASE 139 U/L 40-150 (BEAKER) (test vrmq=596) BILIRUBIN TOTAL (BEAKER) 7.4 mg/dL 0.2-1.2 (test mxtp=545) SODIUM (BEAKER) (test 134 meq/L 136-145 txsb=822) POTASSIUM (BEAKER) (test 3.8 meq/L 3.5-5.1 dzbt=219) CHLORIDE (BEAKER) (test 101 meq/L 98-107 vmit=017) CO2 (BEAKER) (test 27 meq/L 22-29 tsvk=856) BLOOD UREA NITROGEN 8 mg/dL 7-21 (BEAKER) (test jtth=880) CREATININE (BEAKER) (test 0.61 mg/dL 0.57-1.25 mbxi=876) GLUCOSE RANDOM (BEAKER) 120 mg/dL 70-105 (test btwj=663) CALCIUM (BEAKER) (test 7.6 mg/dL 8.4-10.2 dzyf=155) AST (SGOT) (BEAKER) (test 112 U/L 5-34 jvjc=831) ALT (SGPT) (BEAKER) (test 34 U/L 6-55 emvq=432) EGFR (BEAKER) (test 139 mL/min/1.73 sq ESTIMATED GFR IS NOT qhqi=9622) m ACCURATE CREATININE CLEARANCE IN PREDICTING GLOMERULAR FILTRATION RATE. ESTIMATED GFR IS NOT APPLICABLE FOR DIALYSIS PATIENTS. Specimen moderately [id number] 10:24:00 Test Item Value Reference Range Comments MAGNESIUM (BEAKER) (test ddfe=738) 1.7 mg/dL 1.6-2.6 ANTI-NUCLEAR ANTIBODY (HEIDY)2018-09-16 07:54:00 Test Item Value Reference Range Comments ANTI-NUCLEAR ANTIBODY (HEIDY) (BEAKER) (test Negative Negative pulu=524) Test performed by IFA method.Test performed by IFA method.[id number] 06: 21:00 Test Item Value Reference Range Comments FERRITIN (BEAKER) (test mowu=545) 489 ng/mL 5-275 HEPATITIS C [id number] 05:42:00 Test Item Value Reference Range Comments HEPATITIS C ANTIBODY (BEAKER) (test kfgr=408) Nonreactive Nonreactive ALPHA FETOPROTEIN (AFP), TUMOR [id number] 05:42:00 Test Item Value Reference Range Comments ALPHA-FETOPROTEIN (BEAKER) (test anfa=6634) < ng/mL <10.0 PROTHROMBIN [id number] 05:23:00 Test Item Value Reference Range Comments PROTIME (BEAKER) (test neqe=841) 24.7 seconds 11.9-14.2 INR (BEAKER) (test nkvd=048) 2.4 <=5.9 RECOMMENDED COUMADIN/WARFARIN INR THERAPY RANGESSTANDARD DOSE: 2.0 - 3.0 Includes: PROPHYLAXIS forvenous thrombosis, systemic embolization; TREATMENT for venous thrombosis and/or pulmonary embolus.HIGH RISK: Target INR is 2.5-3.5 for patients with mechanical heart valves.CBC W/PLT COUNT & AUTO [id number] 05:15:00 Test Item Value Reference Range Comments WHITE BLOOD CELL COUNT (BEAKER) (test xagx=403) 5.4 K/ L 3.5-10.5 RED BLOOD CELL COUNT (BEAKER) (test bvsw=861) 2.65 M/ L 4.63-6.08 HEMOGLOBIN (BEAKER) (test nbrv=892) 9.7 GM/DL 13.7-17.5 HEMATOCRIT (BEAKER) (test orbz=898) 28.8 % 40.1-51.0 MEAN CORPUSCULAR VOLUME (BEAKER) (test qret=079) 108.7 fL 79.0-92.2 MEAN CORPUSCULAR HEMOGLOBIN (BEAKER) (test 36.6 pg 25.7-32.2 ppsy=776) MEAN CORPUSCULAR HEMOGLOBIN CONC (BEAKER) (test 33.7 GM/DL 32.3-36.5 lqgh=214) RED CELL DISTRIBUTION WIDTH (BEAKER) (test 17.4 % 11.6-14.4 ljef=880) PLATELET COUNT (BEAKER) (test hupa=717) 77 K/CU MM 150-450 MEAN PLATELET VOLUME (BEAKER) (test gxja=724) 11.7 fL 9.4-12.4 NUCLEATED RED BLOOD CELLS (BEAKER) (test 0 /100 WBC 0-0 pydt=713) NEUTROPHILS RELATIVE PERCENT (BEAKER) (test 65 % iypq=702) LYMPHOCYTES RELATIVE PERCENT (BEAKER) (test 22 % ympe=466) MONOCYTES RELATIVE PERCENT (BEAKER) (test 8 % publ=530) EOSINOPHILS RELATIVE PERCENT (BEAKER) (test 4 % yxwr=171) BASOPHILS RELATIVE PERCENT (BEAKER) (test 1 % hhnt=856) NEUTROPHILS ABSOLUTE COUNT (BEAKER) (test 3.52 K/ L 1.78-5.38 hhsz=611) LYMPHOCYTES ABSOLUTE COUNT (BEAKER) (test 1.19 K/ L 1.32-3.57 euus=972) MONOCYTES ABSOLUTE COUNT (BEAKER) (test hfud=402) 0.43 K/ L 0.30-0.82 EOSINOPHILS ABSOLUTE COUNT (BEAKER) (test 0.24 K/ L 0.04-0.54 ppfe=366) BASOPHILS ABSOLUTE COUNT (BEAKER) (test dftd=684) 0.03 K/ L 0.01-0.08 IMMATURE GRANULOCYTES-RELATIVE PERCENT (BEAKER) 1 % 0-1 (test dzwv=0128) RAD, CHEST, 1 VIEW, NON [id number] 07:20:00Reason for exam:->r/o PNAShould this be performed at the bedside?->YesFINAL REPORT INDICATION: r/o PNA COMPARISON: None TECHNIQUE: Single frontal view of the chest. FINDINGS: Lungs and pleura: Clear lungs. No effusion.Heart and mediastinum: Normal heart size. Unremarkable mediastinal contours.Osseous structures: No acute abnormality.Other: None. IMPRESSION: No acute intrathoracic abnormality. Signed: JR Jaquez Robert MDReport Verified Date/Time: 09/15/2018 07:20:18 Reading Location: [facility] Radiology Reading Room [id number] 05:36:00 Test Item Value Reference Range Comments ALPHA-1 ANTITRYPSIN (BEAKER) (test yrsv=679) 119.90 mg/dL 90.00-200.00 COMPREHENSIVE METABOLIC [id number] 05:30:00 Test Item Value Reference Range Comments TOTAL PROTEIN (BEAKER) 6.0 gm/dL 6.0-8.3 (test cnhq=194) ALBUMIN (BEAKER) (test 2.0 g/dL 3.5-5.0 rlnz=4149) ALKALINE PHOSPHATASE 156 U/L 40-150 (BEAKER) (test lhgm=437) BILIRUBIN TOTAL (BEAKER) 7.9 mg/dL 0.2-1.2 (test lrfx=626) SODIUM (BEAKER) (test 131 meq/L 136-145 lhnn=921) POTASSIUM (BEAKER) (test 4.0 meq/L 3.5-5.1 eomr=968) CHLORIDE (BEAKER) (test 103 meq/L 98-107 gupd=485) CO2 (BEAKER) (test 25 meq/L 22-29 iweb=318) BLOOD UREA NITROGEN 8 mg/dL 7-21 (BEAKER) (test fjre=265) CREATININE (BEAKER) (test 0.57 mg/dL 0.57-1.25 usma=882) GLUCOSE RANDOM (BEAKER) 102 mg/dL 70-105 (test avhv=287) CALCIUM (BEAKER) (test 7.5 mg/dL 8.4-10.2 puqm=394) AST (SGOT) (BEAKER) (test 119 U/L 5-34 vhmr=381) ALT (SGPT) (BEAKER) (test 36 U/L 6-55 sxtg=163) EGFR (BEAKER) (test 150 mL/min/1.73 sq ESTIMATED GFR IS NOT htsr=8234) m ACCURATE CREATININE CLEARANCE IN PREDICTING GLOMERULAR FILTRATION RATE. ESTIMATED GFR IS NOT APPLICABLE FOR DIALYSIS PATIENTS. Specimen moderately [id number] 05:25:00 Test Item Value Reference Range Comments MAGNESIUM (BEAKER) (test jkvk=984) 1.5 mg/dL 1.6-2.6 PROTHROMBIN TIME/[id number] 05:22:00 Test Item Value Reference Range Comments PROTIME (BEAKER) (test yayt=187) 24.9 seconds 11.7-14.7 INR (BEAKER) (test zqqx=289) 2.4 <=5.9 RECOMMENDED COUMADIN/WARFARIN INR THERAPY RANGESSTANDARD DOSE: 2.0 - 3.0 Includes: PROPHYLAXIS forvenous thrombosis, systemic embolization; TREATMENT for venous thrombosis and/or pulmonary embolus.HIGH RISK: Target INR is 2.5-3.5 for patients with mechanical heart valves.CBC W/PLT COUNT & AUTO [id number] 05:14:00 Test Item Value Reference Range Comments WHITE BLOOD CELL COUNT (BEAKER) (test bnsx=814) 4.1 K/ L 3.5-10.5 RED BLOOD CELL COUNT (BEAKER) (test dzek=600) 2.60 M/ L 4.63-6.08 HEMOGLOBIN (BEAKER) (test tpwg=832) 9.6 GM/DL 13.7-17.5 HEMATOCRIT (BEAKER) (test lkoy=683) 29.5 % 40.1-51.0 MEAN CORPUSCULAR VOLUME (BEAKER) (test emqu=903) 113.5 fL 79.0-92.2 MEAN CORPUSCULAR HEMOGLOBIN (BEAKER) (test 36.9 pg 25.7-32.2 simn=982) MEAN CORPUSCULAR HEMOGLOBIN CONC (BEAKER) (test 32.5 GM/DL 32.3-36.5 ilpw=709) RED CELL DISTRIBUTION WIDTH (BEAKER) (test 17.5 % 11.6-14.4 vmbj=199) PLATELET COUNT (BEAKER) (test vhfj=105) 50 K/CU MM 150-450 MEAN PLATELET VOLUME (BEAKER) (test qquz=488) 10.9 fL 9.4-12.4 NUCLEATED RED BLOOD CELLS (BEAKER) (test 1 /100 WBC 0-0 azrz=674) NEUTROPHILS RELATIVE PERCENT (BEAKER) (test 65 % fihr=850) LYMPHOCYTES RELATIVE PERCENT (BEAKER) (test 21 % jgza=174) MONOCYTES RELATIVE PERCENT (BEAKER) (test 9 % brdu=034) EOSINOPHILS RELATIVE PERCENT (BEAKER) (test 4 % ruax=102) BASOPHILS RELATIVE PERCENT (BEAKER) (test 1 % viub=530) NEUTROPHILS ABSOLUTE COUNT (BEAKER) (test 2.63 K/ L 1.78-5.38 vzqy=392) LYMPHOCYTES ABSOLUTE COUNT (BEAKER) (test 0.85 K/ L 1.32-3.57 nfly=781) MONOCYTES ABSOLUTE COUNT (BEAKER) (test dode=741) 0.38 K/ L 0.30-0.82 EOSINOPHILS ABSOLUTE COUNT (BEAKER) (test 0.16 K/ L 0.04-0.54 edqm=024) BASOPHILS ABSOLUTE COUNT (BEAKER) (test ezav=322) 0.03 K/ L 0.01-0.08 IMMATURE GRANULOCYTES-RELATIVE PERCENT (BEAKER) 1 % 0-1 (test rpdm=2113) HEPATITIS A ANTIBODY, [id number] 19:16:00 Test Item Value Reference Range Comments HEPATITIS A IGG ANTIBODY (BEAKER) (test dvqu=1059) Reactive Nonreactive HEPATITIS B SURFACE [id number] 19:15:00 Test Item Value Reference Range Comments HEPATITIS B SURFACE ANTIBODY (BEAKER) (test < mIU/mL <8.0 tjus=506) HEPATITIS B SURFACE [id number] 19:11:00 Test Item Value Reference Range Comments HEPATITIS B SURFACE ANTIGEN (2) (BEAKER) (test Nonreactive Nonreactive yvdf=6775) HEPATITIS B CORE ANTIBODY, [id number] 19:11:00 Test Item Value Reference Range Comments HEPATITIS B CORE TOTAL ANTIBODY (BEAKER) (test Nonreactive Nonreactive vwke=069) IRON, TIBC, % SAT. (WITHOUT FERRITIN)2018-09-14 18:50:00 Test Item Value Reference Range Comments IRON (BEAKER) (test fewx=801) 82.0 ug/dL 40.0-160.0 TOTAL IRON BINDING CAPACITY (BEAKER) (test 80 ug/dL 250-450 jvrz=262) IRON % SATURATION (2) (BEAKER) (test cowl=4938) 103 % 20-55 PROTEIN, BODY [id number] 17:49:00 Test Item Value Reference Range Comments PROTEIN FLUID (BEAKER) (test rkfz=317) 0.9 g/dL Absence of reference range indicates that normals have not been defined.Assay performance has not been validated for this type of specimen.U/S, [id number] 16:46:00Page hospitalist team 6 with ?s Reason [...] was used for local anesthesia. A 5 Ukrainian needlecatheter system was advanced into the peritoneal space. 6000 cc cloudy yellow fluid was taken off. Patient tolerated the procedure well. Impression: Ultrasound guided paracentesis. Signed: Gregorio Lotteport Verified Date/ Time: 09/14/2018 16:46:50 Reading Location: [place] [id number] CT Body ReadingRoom BODY FLUID CELL COUNT WITH [id number] 16:28:00 Test Item Value Reference Range Comments APPEARANCE FLUID (BEAKER) (test uhka=041) Hazy Clear COLOR FLUID (BEAKER) (test gefi=182) Yellow Colorless, Straw RBC FLUID (BEAKER) (test uhsp=880) 2000 /cu mm <=1 ADJUSTED WBC FLUID (BEAKER) (test bnfl=8690) 270 /cu mm <=5 LINING CELLS (BEAKER) (test adfw=6345) 0 /cu mm <=1 NEUTROPHILS FLUID (BEAKER) (test ucqt=0412) 41 % LYMPHS FLUID (BEAKER) (test wfyg=575) 30 % MONO/MACROPHAGE FLUID (BEAKER) (test idre=158) 29 % EOSINOPHILS FLUID (BEAKER) (test smml=904) 0 % BASO FLUID (BEAKER) (test gjtb=857) 0 % CONTAINER BODY FLUID (BEAKER) (test jrvu=1248) EDTA Tube ALBUMIN, BODY [id number] 16:05:00 Test Item Value Reference Range Comments ALBUMIN FLUID (BEAKER) (test nzgj=846) 0.4 gm/dL Reference Range: No Normals Assay performance has not been validated for this type of specimen.U/S, ABDOMINAL, [id number] 09:28:00Reason for exam:-&gt ;abdominal painFINAL REPORT INDICATION: [...] MDReport Verified Date/Time: 09/14/2018 09:28:37 Reading Location: [facility] [id number] CT Body Reading Room T4, [id number] 08:43:00 Test Item Value Reference Range Comments FREE T4 (BEAKER) (test cwuv=608) 0.87 ng/dL 0.70-1.48 POCT-GLUCOSE [id number] 07:33:00 Test Item Value Reference Range Comments POC-GLUCOSE METER (BEAKER) 94 mg/dL 70-110 TESTED AT [facility] [address] [facility] (test kvfm=6070) [facility] [address] [id number] 06:26:00 Test Item Value Reference Range Comments THYROID STIMULATING HORMONE (BEAKER) (test 1.93 uIU/mL 0.35-4.94 coiu=968) BASIC METABOLIC [id number] 05:52:00 Test Item Value Reference Range Comments SODIUM (BEAKER) (test 130 meq/L 136-145 bliz=389) POTASSIUM (BEAKER) (test 5.1 meq/L 3.5-5.1 Specimen slightly xomt=839) hemolyzed CHLORIDE (BEAKER) (test 102 meq/L 98-107 xfsu=099) CO2 (BEAKER) (test 25 meq/L 22-29 cmii=073) BLOOD UREA NITROGEN 6 mg/dL 7-21 (BEAKER) (test gffc=282) CREATININE (BEAKER) (test 0.57 mg/dL 0.57-1.25 Specimen slightly tyho=529) hemolyzed GLUCOSE RANDOM (BEAKER) 99 mg/dL 70-105 (test uuen=228) CALCIUM (BEAKER) (test 7.6 mg/dL 8.4-10.2 myiy=465) EGFR (BEAKER) (test 150 mL/min/1.73 sq m ESTIMATED GFR IS NOT mekh=8877) ACCURATE CREATININE CLEARANCE IN PREDICTING GLOMERULAR FILTRATION RATE. ESTIMATED GFR IS NOT APPLICABLE FOR DIALYSIS PATIENTS. Specimen moderately ictericHEPATIC FUNCTION [id number] 05:52:00 Test Item Value Reference Range Comments TOTAL PROTEIN (BEAKER) (test 6.9 gm/dL 6.0-8.3 Specimen slightly hemolyzed sgbo=253) ALBUMIN (BEAKER) (test 1.9 g/dL 3.5-5.0 Specimen slightly hemolyzed fmrr=1895) BILIRUBIN TOTAL (BEAKER) (test 9.0 mg/dL 0.2-1.2 Specimen slightly hemolyzed kzqn=785) BILIRUBIN DIRECT (BEAKER) (test 5.1 mg/dL 0.1-0.5 Specimen slightly hemolyzed yajg=065) ALKALINE PHOSPHATASE (BEAKER) 174 U/L 40-150 (test erpq=418) AST (SGOT) (BEAKER) (test 178 U/L 5-34 Specimen slightly hemolyzed qhmr=214) ALT (SGPT) (BEAKER) (test 48 U/L 6-55 Specimen slightly hemolyzed nceu=230) Specimen moderately [id number] 05:43:00 Test Item Value Reference Range Comments ETHANOL (BEAKER) (test mchn=004) < mg/dL <=10 PROTHROMBIN [id number] 05:10:00 Test Item Value Reference Range Comments PROTIME (BEAKER) (test pkcl=935) 22.1 seconds 11.7-14.7 INR (BEAKER) (test egxm=236) 2.1 <=5.9 RECOMMENDED COUMADIN/WARFARIN INR THERAPY RANGESSTANDARD DOSE: 2.0 - 3.0 Includes: PROPHYLAXIS forvenous thrombosis, systemic embolization; TREATMENT for venous thrombosis and/or pulmonary embolus.HIGH RISK: Target INR is 2.5-3.5 for patients with mechanical heart valves.CBC W/PLT COUNT & AUTO [id number] 04:57:00 Test Item Value Reference Range Comments WHITE BLOOD CELL COUNT (BEAKER) (test wjod=148) 6.7 K/ L 3.5-10.5 RED BLOOD CELL COUNT (BEAKER) (test exlz=063) 2.74 M/ L 4.63-6.08 HEMOGLOBIN (BEAKER) (test jwip=996) 10.1 GM/DL 13.7-17.5 HEMATOCRIT (BEAKER) (test duxv=464) 30.0 % 40.1-51.0 MEAN CORPUSCULAR VOLUME (BEAKER) (test plnz=845) 109.5 fL 79.0-92.2 MEAN CORPUSCULAR HEMOGLOBIN (BEAKER) (test 36.9 pg 25.7-32.2 cbap=734) MEAN CORPUSCULAR HEMOGLOBIN CONC (BEAKER) (test 33.7 GM/DL 32.3-36.5 vjxr=052) RED CELL DISTRIBUTION WIDTH (BEAKER) (test 17.8 % 11.6-14.4 vctd=620) PLATELET COUNT (BEAKER) (test lwuy=960) 83 K/CU MM 150-450 MEAN PLATELET VOLUME (BEAKER) (test mjnl=863) 10.4 fL 9.4-12.4 NUCLEATED RED BLOOD CELLS (BEAKER) (test 0 /100 WBC 0-0 bbdi=725) NEUTROPHILS RELATIVE PERCENT (BEAKER) (test 75 % xmlq=612) LYMPHOCYTES RELATIVE PERCENT (BEAKER) (test 14 % rygj=266) MONOCYTES RELATIVE PERCENT (BEAKER) (test 7 % jhrn=129) EOSINOPHILS RELATIVE PERCENT (BEAKER) (test 2 % ryiw=896) BASOPHILS RELATIVE PERCENT (BEAKER) (test 1 % npqs=418) NEUTROPHILS ABSOLUTE COUNT (BEAKER) (test 4.98 K/ L 1.78-5.38 bvbx=764) LYMPHOCYTES ABSOLUTE COUNT (BEAKER) (test 0.93 K/ L 1.32-3.57 nfjz=254) MONOCYTES ABSOLUTE COUNT (BEAKER) (test lnpy=108) 0.49 K/ L 0.30-0.82 EOSINOPHILS ABSOLUTE COUNT (BEAKER) (test 0.16 K/ L 0.04-0.54 jgel=098) BASOPHILS ABSOLUTE COUNT (BEAKER) (test dqmr=227) 0.06 K/ L 0.01-0.08 IMMATURE GRANULOCYTES-RELATIVE PERCENT (BEAKER) 1 % 0-1 (test exep=1176) PROTHROMBIN [id number] 01:38:00 Test Item Value Reference Range Comments PROTIME (BEAKER) (test nrfn=154) 21.1 seconds 11.7-14.7 INR (BEAKER) (test zweo=293) 1.9 <=5.9 RECOMMENDED COUMADIN/WARFARIN INR THERAPY RANGESSTANDARD DOSE: 2.0 - 3.0 Includes: PROPHYLAXIS forvenous thrombosis, systemic embolization; TREATMENT for venous thrombosis and/or pulmonary embolus.HIGH RISK: Target INR is 2.5-3.5 for patients with mechanical heart valves.BASIC METABOLIC [id number] 01:37: 00 Test Item Value Reference Range Comments SODIUM (BEAKER) (test 130 meq/L 136-145 knbt=852) POTASSIUM (BEAKER) (test 4.6 meq/L 3.5-5.1 Specimen moderately cdzn=368) hemolyzed CHLORIDE (BEAKER) (test 100 meq/L 98-107 owyg=444) CO2 (BEAKER) (test 21 meq/L 22-29 jdxs=292) BLOOD UREA NITROGEN 6 mg/dL 7-21 (BEAKER) (test jhqg=480) CREATININE (BEAKER) (test 0.61 mg/dL 0.57-1.25 Specimen moderately wgzr=824) hemolyzed GLUCOSE RANDOM (BEAKER) 100 mg/dL 70-105 (test wzza=913) CALCIUM (BEAKER) (test 7.8 mg/dL 8.4-10.2 rjkr=418) EGFR (BEAKER) (test 139 mL/min/1.73 sq m ESTIMATED GFR IS NOT odwz=2610) ACCURATE CREATININE CLEARANCE IN PREDICTING GLOMERULAR FILTRATION RATE. ESTIMATED GFR IS NOT APPLICABLE FOR DIALYSIS PATIENTS. Specimen moderately [id number] 01:36:00 Test Item Value Reference Range Comments MAGNESIUM (BEAKER) (test 1.9 mg/dL 1.6-2.6 Specimen moderately hemolyzed hsph=900) HEPATIC FUNCTION [id number] 01:36:00 Test Item Value Reference Range Comments TOTAL PROTEIN (BEAKER) (test 8.0 gm/dL 6.0-8.3 Specimen moderately hemolyzed lpet=955) ALBUMIN (BEAKER) (test 2.2 g/dL 3.5-5.0 Specimen moderately hemolyzed yrfr=8913) BILIRUBIN TOTAL (BEAKER) (test 9.0 mg/dL 0.2-1.2 Specimen moderately hemolyzed ofiz=989) BILIRUBIN DIRECT (BEAKER) 4.9 mg/dL 0.1-0.5 Specimen moderately hemolyzed (test aeri=639) ALKALINE PHOSPHATASE (BEAKER) 204 U/L 40-150 (test zsta=823) AST (SGOT) (BEAKER) (test 193 U/L 5-34 Specimen moderately hemolyzed pagf=515) ALT (SGPT) (BEAKER) (test 51 U/L 6-55 Specimen moderately iicn=039) hemolyzed Specimen moderately ictericCBC W/PLT COUNT & AUTO [id number] 01: 21:00 Test Item Value Reference Range Comments WHITE BLOOD CELL COUNT (BEAKER) (test azib=237) 6.7 K/ L 3.5-10.5 RED BLOOD CELL COUNT (BEAKER) (test bajg=322) 2.97 M/ L 4.63-6.08 HEMOGLOBIN (BEAKER) (test zqhb=893) 11.1 GM/DL 13.7-17.5 HEMATOCRIT (BEAKER) (test aael=198) 31.9 % 40.1-51.0 MEAN CORPUSCULAR VOLUME (BEAKER) (test laim=600) 107.4 fL 79.0-92.2 MEAN CORPUSCULAR HEMOGLOBIN (BEAKER) (test 37.4 pg 25.7-32.2 qjyz=481) MEAN CORPUSCULAR HEMOGLOBIN CONC (BEAKER) (test 34.8 GM/DL 32.3-36.5 emow=272) RED CELL DISTRIBUTION WIDTH (BEAKER) (test 17.8 % 11.6-14.4 ydnf=686) PLATELET COUNT (BEAKER) (test mbkc=765) 101 K/CU MM 150-450 MEAN PLATELET VOLUME (BEAKER) (test mvbg=309) 10.9 fL 9.4-12.4 NUCLEATED RED BLOOD CELLS (BEAKER) (test 0 /100 WBC 0-0 ulqq=102) NEUTROPHILS RELATIVE PERCENT (BEAKER) (test 81 % cbzk=439) LYMPHOCYTES RELATIVE PERCENT (BEAKER) (test 9 % qkkr=293) MONOCYTES RELATIVE PERCENT (BEAKER) (test 8 % bbbt=956) EOSINOPHILS RELATIVE PERCENT (BEAKER) (test 1 % uuhm=514) BASOPHILS RELATIVE PERCENT (BEAKER) (test 1 % qaou=022) NEUTROPHILS ABSOLUTE COUNT (BEAKER) (test 5.37 K/ L 1.78-5.38 bgpq=684) LYMPHOCYTES ABSOLUTE COUNT (BEAKER) (test 0.60 K/ L 1.32-3.57 lzhy=485) MONOCYTES ABSOLUTE COUNT (BEAKER) (test 0.55 K/ L 0.30-0.82 lrop=518) EOSINOPHILS ABSOLUTE COUNT (BEAKER) (test 0.04 K/ L 0.04-0.54 nftt=235) BASOPHILS ABSOLUTE COUNT (BEAKER) (test 0.07 K/ L 0.01-0.08 pkkb=655) IMMATURE GRANULOCYTES-RELATIVE PERCENT (BEAKER) 1 % 0-1 (test nsaa=3239)
--- OUTSIDE RECORDS SUMMARY | 2019-05-31 14:16 | XMS REPORT ---
:1965 Author Organization e[employer] Care Team Providers Name Role Phone Evelia Klein Provider Role Unavailable Allergies, Adverse Reactions, Alerts Substance Reaction Event Type N.K.D.A. 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 Active Problem Degenerative cervical spinal M48.02 Active stenosis Problem Alcoholic cirrhosis of liver K70.30 Active without ascites Problem Acute pain of right shoulder M25.511 Active Assessment Secondary esophageal varices with I85.11 Active bleeding Assessment Alcoholic cirrhosis of liver K70.30 Active without ascites Assessment Other secondary hypertension I15.8 Active Assessment Hospital discharge follow-up Z09 Active Assessment 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 Active Medications Medication Code Code Instructions Start End Status Dosage System Date Date Folic Acid [facility] [place] 2] 01255926361 1 MG Orally Active 1 tablet Once a day Lactulose [facility] [place]NOTE 2] 80329281325 20 GM Orally Active not Three times a defined day Bumetanide ND 35041319241 0.5 MG orally Active take 2 twice a day tablet Furosemide ND 85032038844 40 MG Orally Active 1 tablet Once a day Hydrocortisone ND 54497669897 20 MG Orally Active 1 tablet Once a day with food or milk Spironolactone ND 81967097288 25 MG Orally Active 1 tablet Three times a day Torsemide ND 74341609806 20 MG Oral Active not defined Rifaximin [facility] [place]NOTE 2] [address]-00 550 MG Orally May Active 1 tablet Twice a day 2019 Pantoprazole ND 36408595956 40 MG Orally Active 1 tablet Sodium [place] 50[place] [address] - Orally Once a Active as Vitamin/Min day directed Results No Known Results Summary Purpose eClinicalWorks Submission
--- OUTSIDE RECORDS SUMMARY | 2019-05-31 14:16 | XMS REPORT ---
:1965 Author Organization [employer] Care Team Providers Name Role Phone Evelia Klein Provider Role Unavailable Allergies No Known Allergies Problems Problem Type Condition Code Onset Dates [...] Acute pain of right shoulder M25.511 Active Medications Medication Code System Code Instructions Start Date End Date Status Dosage Folic Acid [facility] 98884453555 1 MG Orally Once Active 1 tablet a day Results No Known Results Summary Purpose eClinicalWorks Submission
[2019-05-31] MEDS ORDERED: MECLIZINE HCL 12.5 MG TAB ONE (15:40)
[2019-05-31 16:14] LABS: Absolute Lymphocytes (CBC) 0.7 K/uL (0.7-4.9); Basophils % 0.3 % (0-1.3); Hematocrit 24.9 % (39.6-49.0); Lymphocytes % 8.6 % (15.3-44.8); MPV 7.3 fL (7.6-11.3); RBC Red Blood Cell Count 2.25 M/uL (4.33-5.43)
[2019-05-31 16:34] LABS: Albumin 2.1 g/dL (3.4-5.0); Bilirubin Direct 6.8 mg/dL (0-0.2); Potassium 3.7 mmol/L (3.5-5.1); Protein, Total 6.5 g/dL (6.4-8.2)
[2019-05-31 16:35] LABS: Bilirubin Total 10.6 mg/dL (0.2-1.0)
[2019-05-31 16:42] LABS: Blood Morphology Comment NOTED (NOT SEEN); Macrocytosis 1+; Platelet Estimate DECR; Urine White Blood Cell Casts OK
--- NOTE | 2019-05-31 17:44 | RAD REPORT ---
EXAM DESCRIPTION: CT - Head Brain Wo Cont - 05/31/2019 5:30 pm CLINICAL HISTORY: dizziness, syncope COMPARISON: No comparisons TECHNIQUE: Axial 5 mm thick images of the head were obtained without IV contrast. All CT scans are performed using dose optimization technique as appropriate and may include automated exposure control or mA/KV adjustment according to patient size. FINDINGS: No intracranial hemorrhage, mass, edema or shift of mid-line structures. No acute infarcti on changes seen. No abnormal extra-axial fluid collections. Ventricles are normal. Mastoid air cells and visualized portions of the paranasal sinuses are clear. No acute bony findings. IMPRESSION: Negative non-contrast CT head examination.
[2019-05-31 18:33] LABS: Protime INR 2.28
--- NOTE | 2019-05-31 19:59 | RAD REPORT ---
EXAM DESCRIPTION: CT - Abdomen Pelvis Wo Contrast - 05/31/2019 7:43 pm CLINICAL HISTORY: Elevated liver enzymes Abdominal pain COMPARISON: Abdomen Pelvis W Contrast dated 09/13/2018 TECHNIQUE: Axial [address] imaging of the abdomen and pelvis was performed without IV contrast. No IV contrast was given because of allergy, abnormal renal function, patient refusal or physician re quest. No oral contrast administered. All CT scans are performed using dose optimization technique as appropriate and may include automated exposure control or mA/KV adjustment according to patient size. FINDINGS: No suspicious findings in the lung bases. Liver shows a nodular capsule contour with relatively prominent left lobe. No focal lesions seen on n oncontrast imaging. No splenomegaly or focal splenic finding. No pancreatic abnormality seen. Cholecy stectomy clips are present. No biliary tree dilatation. No hydronephrosis or suspicious renal mass. No significant adrenal finding. Isodense renal masses an d pyelonephritis cannot be excluded in the absence of IV contrast. The urinary bladder is without sig nificant finding. No gastric dilatation or gastric wall thickening. No dilated large or small bowel loop. Appendicitis not suspected. No free air or pneumatosis. Ascites is present relatively mild and significantly less than seen August 20 019. Significant fluid retention present in the subcutaneous fatty tissues. No hernia, mass or bulky lymphadenopathy. No acute bone finding. No acute vascular finding on noncontrast imaging. Patient has very large dilated veins near the splen ic flexure. Vascular assessment is limited in the absence of contrast. IMPRESSION: No bowel obstruction, free air or surgically emergent finding. Advance or liver changes are present without focal liver lesion. Ascites is present, small in quantit y and less prominent than seen August 2018. Patient has significant fluid retention in the subcutaneous fatty tissues. No acute or GI process identifiable. Full assessment is limited is the absence of IV contrast.
[2019-05-31 20:03] LABS: Urine Blood NEGATIVE (NEG); Urine Glucose NEGATIVE (NEG); Urine Protein NEGATIVE (NEG); Urine Specific Gravity 1.015 (1.005-1.030); Urine pH 5.5 (5.0-7.0)
--- NOTE | 2019-05-31 21:50 | EDPHYS ---
Physician Documentation [facility] Name: Chrissie Parada Jr Age: 54 yrs Sex: Male : 1965 Arrival Date: 05/31/2019 Time: 14:00 Bed 17 Private MD: ED Physician Irene Zee HPI: 05/31 15:42 This 54 yrs old Male presents to ER via Ambulatory with complaints of pm1 Dizziness, Ear Pain, Nose Bleed. 15:42 The patient presents with sense of spinning, room spinning. pm1 15:42 Onset: The symptoms/episode began/occurred 2 week(s) ago, with bilateral tinnitus. pm1 Prior to tinnitus had symptoms of URI. Modifying factors: The symptoms are alleviated by nothing, the symptoms are aggravated by movement of head, changing position. Associated signs and symptoms: Pertinent negatives: abdominal pain, chest pain, nausea, palpitations, shortness of breath, vomiting. Severity of symptoms: in the emergency department the symptoms are worse Pain is currently a 0 / 10. The patient has not experienced similar symptoms in the past. Patient sees Dr. Iglesias at the hepatology clinic at [facility]. Historical: - Allergies: 14:28 No Known Allergies; ca1 - Home Meds: 14:28 hydrocortisone 20 mg Oral tab 1 tab once daily [Active]; spironolactone 100 mg Oral tab ca1 1 tab once daily [Active]; folic acid 1 mg Oral tab 1 tab once daily [Active]; bumetanide 0.5 mg Oral tab 1 tab 2 times per day [Active]; lactulose 20 gram/30 mL Oral soln 30 mL 3 times per day [Active]; Xifaxan 550 mg oral tab 1 tab 2 times per day [Active]; - PMHx: 14:28 Arthritis; Cirrhosis; esophageal varices; GERD; ca1 - PSHx: 14:28 Cholecystectomy; ca1 - Immunization history:: Adult Immunizations up to date, Flu vaccine is up to date. - Coronavirus screen:: The patient has NOT traveled to [place], [place], or [place] in the past 14 days. The patient has NOT had contact with known/suspected case of Coronavirus?. - Social history:: Smoking status: Patient denies any tobacco usage or history of. - Ebola Screening: : Patient negative for fever greater than or equal to 101.5 degrees Fahrenheit, and additional compatible Ebola Virus Disease symptoms Patient denies exposure to infectious person Patient denies travel to an Ebola-affected area in the 21 days before illness onset No symptoms or risks identified at this time. ROS: 15:42 Constitutional: Negative for fever, chills, and weight loss, Eyes: Negative for injury, pm1 pain, redness, and discharge. 15:42 Neck: Negative for injury, pain, and swelling. 15:42 Abdomen/GI: Negative for abdominal pain, nausea, vomiting, diarrhea, and constipation, Back: Negative for injury and pain, : Negative for injury, bleeding, discharge, and swelling. 15:42 MS/Extremity: Negative for injury and deformity, Skin: Negative for injury, rash, and discoloration. 15:42 ENT: Positive for sore throat, tinnitus, bilaterally for two weeks, Negative for drainage from ear(s), ear pain. 15:42 Cardiovascular: Positive for bilateral pedal edema, Negative for chest pain, palpitations. 15:42 Respiratory: Positive for cough, Negative for shortness of breath, wheezing. 15:42 Neuro: Positive for dizziness, the room spinning, with onset of bilateral tinnitus. Exam: 15:42 Constitutional: This is a well developed, well nourished patient who is awake, alert, pm1 and in no acute distress. Head/Face: Normocephalic, atraumatic. 15:42 Neck: Trachea midline, no thyromegaly or masses palpated, and no cervical lymphadenopathy. Supple, full range of motion without nuchal rigidity, or vertebral point tenderness. No Meningismus. Chest/axilla: Normal chest wall appearance and motion. Nontender with no deformity. No lesions are appreciated. Back: No spinal tenderness. No costovertebral tenderness. Full range of motion. Skin: Warm, dry with normal turgor. Normal color with no rashes, no lesions, and no evidence of cellulitis. MS/ Extremity: Pulses equal, no cyanosis. Neurovascular intact. Full, normal range of motion. 15:42 Respiratory: Lungs have equal breath sounds bilaterally, clear to auscultation and percussion. No rales, rhonchi or wheezes noted. No increased work of breathing, no retractions or nasal flaring. Abdomen/GI: Soft, non-tender, with normal bowel sounds. No distension or tympany. No guarding or rebound. No evidence of tenderness throughout. 15:42 Eyes: Periorbital structures: appear normal, Pupils: no acute changes, Extraocular movements: no acute changes, Conjunctiva: normal, Sclera: icterus, is present, Lids and lashes: appear normal, Nystagmus: horizontal nystagmus with reproducible room spinning sensation with examination of testing EOM. 15:42 ENT: External ear(s): are unremarkable, Ear canal(s): are normal, TM's: are normal, Nose: bleeding, is not appreciated, Mouth: is normal, Posterior pharynx: is normal, airway is patent, no erythema, no exudate, no peritonsilar mass, no pooling of secretions, no swelling. 15:42 Cardiovascular: Rate: normal, Rhythm: regular, Heart sounds: normal, Edema: pedal edema, that is mild. 15:42 Neuro: Orientation: is normal, Mentation: is normal, Cranial nerves: CN II- XII are normal as tested, Motor: is normal, moves all fours, Sensation: is normal, no obvious gross deficits. Vital Signs: 14:28 BP 126 / 53; Pulse 90; Resp 19 S; Temp 97.5(O); Pulse Ox 100% on R/A; Weight 108.86 kg ca1 (R); Height 5 ft. 6 in. (167.64 cm) (R); 15:57 BP 104 / 44; Pulse 83; Resp 18; Pulse Ox 97% ; ah 18:27 BP 141 / 61; Pulse 92; Resp 18; Pulse Ox 98% ; ah 19:00 BP 118 / 54; Pulse 92; Resp 18; Temp 97.6; Pulse Ox 98% on R/A; ea 20:00 BP 112 / 54; Pulse 92; Resp 18; Pulse Ox 98% on R/A; ea 21:00 BP 116 / 54; Pulse 93; Resp 18; Pulse Ox 98% on R/A; ea 14:28 Body Mass Index 38.74 (108.86 kg, 167.64 cm) ca1 MDM: 15:19 Patient medically screened. pm1 15:49 Data reviewed: vital signs. Data interpreted: Pulse oximetry: on room air is 100 %. pm1 Interpretation: normal. 17:55 ED course: improvement in dizziness and vertigo with medication given in the ER. pm1 21:23 Physician consultation: Library Clerical Assistant Amy was contacted at 21:15, regarding consult, pm1 patient's condition, Wants the patient to restrict his fluids to 1.5 L per day to address his hyponatremia, draw lab (PEth) Phosphatidylethanol, and he will contact the JOB FORWARDER seeing the patient. Patient has an appointment for 06/16/2019. Discussed current lab findings. Today's total bilirubin (10.6) has improved since his last labs with hepatology clinic (11.8) on 05/17/2019. Na (126) level today is the same as the level on 05/17/2019. Patient clinically presenting to the ER with vertigo. Ammonia level is normal. Patient without abdominal pain, vomiting, diarrhea. Patient safe for discharge to follow up with liver transplant/hepatology clinic. 21:25 Counseling: I had a detailed discussion with the patient and/or guardian regarding: the pm1 historical points, exam findings, and any diagnostic results supporting the discharge/admit diagnosis, lab results, the need for outpatient follow up. 21:43 ED course: Gave patient a graduated container to educate on fluid restriction to 1.5 L pm1 per day. 05/31 15:32 Order name: Basic Metabolic Panel pm1 05/31 15:32 Order name: CBC with Diff pm1 05/31 15:32 Order name: Hepatic Function pm1 05/31 17:53 Order name: Lipase pm1 05/31 17:53 Order name: AMMONIA pm1 05/31 17:53 Order name: PT-INR pm1 05/31 18:51 Order name: Urine Dipstick--Ancillary (enter results) 05/31 18:54 Order name: Basic Metabolic Panel; Complete Time: 19:06 EDMS 05/31 18:55 Order name: Liver (Hepatic) Function; Complete Time: 19:06 EDMS 05/31 18:57 Order name: CBC with Automated Diff; Complete Time: 19:06 EDMS 05/31 18:58 Order name: CBC Smear Scan; Complete Time: 19:06 EDMS 05/31 19:12 Order name: Protime (+INR); Complete Time: 19:14 EDMS 05/31 19:32 Order name: Lipase; Complete Time: 19:47 EDMS 05/31 19:45 Order name: Ammonia; Complete Time: 19:47 EDMS 05/31 15:32 Order name: CT Head Brain wo Cont pm1 05/31 15:32 Order name: IV Saline Lock; Complete Time: 16:30 pm1 05/31 15:32 Order name: Labs collected and sent; Complete Time: 16:30 pm1 05/31 15:41 Order name: EKG; Complete Time: 16:06 pm1 05/31 15:41 Order name: EKG - Nurse/Tech; Complete Time: 15:42 pm1 05/31 17:55 Order name: CT Abd/Pelvis - Without Contrast pm1 05/31 19:31 Order name: CT; Complete Time: 19:47 EDMS 05/31 20:05 Order name: Urine Dipstick-Ancillary; Complete Time: 20:06 EDMS 05/31 20:15 Order name: CT; Complete Time: 20:17 EDMS 05/31 21:47 Order name: Misc. Lab Test pm1 Administered Medications: 16:12 Drug: Meclizine 25 mg Route: PO; sv 17:30 Follow up: Response: No adverse reaction Disposition: 05/31/19 21:49 Discharged to Home. Impression: Benign paroxysmal vertigo. - Condition is Stable. - Discharge Instructions: Benign Positional Vertigo. - Prescriptions for Meclizine 25 mg Oral Tablet - take 1 tablet by ORAL route every 8 hours As needed; 30 tablet. - Medication Reconciliation Form, Thank You Letter, Antibiotic Education, Prescription Opioid Use, Family Work Release form. - Follow up: Emergency Department; When: As needed; Reason: Worsening of condition. Follow up: Private Physician; When: 2 - 3 days; Reason: Recheck today's complaints, Continuance of care, Re-evaluation by your physician. - Problem is new. - Symptoms have improved. Signatures: Dis[facility] Iliana Lopez RN RN sv Marinas, Patrick, JOB FORWARDER JOB FORWARDER pm1 Lindsay Tanner RN RN ea Acob, Cheryl, RN RN ca1 Harris, Amy RN ah Corrections: (The following items were deleted from the chart) 22:05 21:49 05/31/2019 21:49 Discharged to Home. Impression: Benign paroxysmal vertigo. ea Condition is Stable. Forms are Medication Reconciliation Form, Thank You Letter, Antibiotic Education, Prescription Opioid Use. Follow up: Emergency Department; When: As needed; Reason: Worsening of condition. Follow up: Private Physician; When: 2 - 3 days; Reason: Recheck today's complaints, Continuance of care, Re-evaluation by your physician. Problem is new. Symptoms have improved. pm1
--- NOTE | 2019-05-31 21:50 | ER ---
Nurse's Notes [facility] Name: Chrissie Parada Jr Age: 54 yrs Sex: Male : 1965 Arrival Date: 05/31/2019 Time: 14:00 Bed 17 Private MD: Diagnosis: Benign paroxysmal vertigo Presentation: 05/31 14:23 Presenting complaint: Patient states: Dizzy spells since 2 weeks ago, but today has ca1 been worst. Ringing in ears today. nose bleeds, and general body weakness. Denies fever. Transition of care: patient was not received from another setting of care. Onset of symptoms was May 31, 2019. Risk Assessment: Do you want to hurt yourself or someone else? Patient reports no desire to harm self or others. Initial Sepsis Screen: Does the patient meet any 2 criteria? No. Patient's initial sepsis screen is negative. Does the patient have a suspected source of infection? No. Patient's initial sepsis screen is negative. Care prior to arrival: None. 14:23 Method Of Arrival: Ambulatory ca1 14:23 Acuity: WENDY 3 ca1 Historical: - Allergies: 14:28 No Known Allergies; ca1 - Home Meds: 14:28 hydrocortisone 20 mg Oral tab 1 tab once daily [Active]; spironolactone 100 mg Oral tab ca1 1 tab once daily [Active]; folic acid 1 mg Oral tab 1 tab once daily [Active]; bumetanide 0.5 mg Oral tab 1 tab 2 times per day [Active]; lactulose 20 gram/30 mL Oral soln 30 mL 3 times per day [Active]; Xifaxan 550 mg oral tab 1 tab 2 times per day [Active]; - PMHx: 14:28 Arthritis; Cirrhosis; esophageal varices; GERD; ca1 - PSHx: 14:28 Cholecystectomy; ca1 - Immunization history:: Adult Immunizations up to date, Flu vaccine is up to date. - Coronavirus screen:: The patient has NOT traveled to [place], [place], or [place] in the past 14 days. The patient has NOT had contact with known/suspected case of Coronavirus?. - Social history:: Smoking status: Patient denies any tobacco usage or history of. - Ebola Screening: : Patient negative for fever greater than or equal to 101.5 degrees Fahrenheit, and additional compatible Ebola Virus Disease symptoms Patient denies exposure to infectious person Patient denies travel to an Ebola-affected area in the 21 days before illness onset No symptoms or risks identified at this time. Screenin:55 Abuse screen: Denies threats or abuse. Denies injuries from another. Nutritional sv screening: No deficits noted. Tuberculosis screening: No symptoms or risk factors identified. Fall Risk None identified. Assessment: 16:08 General: Appears in no apparent distress. Behavior is calm, cooperative. Pain: Denies ah pain. Neuro: Level of Consciousness is awake, alert, obeys commands, Oriented to person, place, Reports dizziness, since 4 days. Cardiovascular: Heart tones S1 S2 present Capillary refill < 3 seconds Patient's skin is warm and dry. Cardiovascular: Patient's skin is warm and dry. edema noted to BLE. Respiratory: Airway is patent Respiratory effort is even, unlabored, Respiratory pattern is regular, symmetrical, Breath sounds are clear bilaterally. Respiratory: Parent/caregiver reports the patient having cough that is productive, non-productive. GI: Abdomen is distended, Bowel sounds present X 4 quads. Patient currently denies nausea, vomiting. : No signs and/or symptoms were reported regarding the genitourinary system. EENT: EENT: Reports ringing since 2 weeks. Musculoskeletal: Circulation, motion, and sensation intact. Capillary refill < 3 seconds. 17:00 Reassessment: Patient appears in no apparent distress at this time. No changes from sv previously documented assessment. Patient and/or family updated on plan of care and expected duration. Pain level reassessed. Patient is alert, oriented x 3, equal unlabored respirations, skin warm/dry/pink. 18:30 Reassessment: Patient appears in no apparent distress at this time. No changes from sv previously documented assessment. Patient and/or family updated on plan of care and expected duration. Pain level reassessed. Patient is alert, oriented x 3, equal unlabored respirations, skin warm/dry/pink. Pt requesting to take his home medications and to drink sprite. Ok by Sage SITE LEASING AGENT to take his medications and for sprite. 19:23 General: Appears in no apparent distress. Behavior is calm, cooperative. Pain: Denies ea pain. Neuro: Level of Consciousness is awake, alert, obeys commands, Oriented to person, place, situation. Cardiovascular: Patient's skin is warm and dry. Respiratory: Airway is patent Respiratory effort is even, unlabored, Respiratory pattern is regular, symmetrical. Derm: Skin is jaundiced. Musculoskeletal: Circulation, motion, and sensation intact. 20:30 Reassessment: Patient and/or family updated on plan of care and expected duration. Pain ea level reassessed. Patient is alert, oriented x 3, equal unlabored respirations, skin warm/dry/pink. 21:41 Reassessment: Patient and/or family updated on plan of care and expected duration. Pain ea level reassessed. Patient is alert, oriented x 3, equal unlabored respirations, skin warm/dry/pink. 22:04 Reassessment: Patient and/or family updated on plan of care and expected duration. Pain ea level reassessed. Patient is alert, oriented x 3, equal unlabored respirations, skin warm/dry/pink. Discharge instruction given to patient and family. Both verbalized the understanding of instruction. Pt left ED ambulatory accompanied by family. Vital Signs: 14:28 BP 126 / 53; Pulse 90; Resp 19 S; Temp 97.5(O); Pulse Ox 100% on R/A; Weight 108.86 kg ca1 (R); Height 5 ft. 6 in. (167.64 cm) (R); 15:57 BP 104 / 44; Pulse 83; Resp 18; Pulse Ox 97% ; ah 18:27 BP 141 / 61; Pulse 92; Resp 18; Pulse Ox 98% ; ah 19:00 BP 118 / 54; Pulse 92; Resp 18; Temp 97.6; Pulse Ox 98% on R/A; ea 20:00 BP 112 / 54; Pulse 92; Resp 18; Pulse Ox 98% on R/A; ea 21:00 BP 116 / 54; Pulse 93; Resp 18; Pulse Ox 98% on R/A; ea 14:28 Body Mass Index 38.74 (108.86 kg, 167.64 cm) ca1 ED Course: 14:00 Patient arrived in ED. fj1 14:25 Triage completed. ca1 14:28 Arm band placed on right wrist. ca1 15:19 Sage Arthur NP is PHCP. pm1 15:19 Irene Zee MD is Attending Physician. pm1 15:33 Dorene Marina, RN is Primary Nurse. ah 15:49 EKG done, by supply chain technician. reviewed by Sage Arthur NP. at1 15:55 Patient has correct armband on for positive identification. Placed in gown. Bed in low sv position. Call light in reach. Side rails up X 1. Adult w/ patient. Pulse ox on. NIBP on. Door closed. Head of bed elevated. 15:55 Inserted saline lock: 22 gauge in right forearm, using aseptic technique. ,using sv aseptic technique. diffusics Blood collected. Flushed right forearm with 5 ml normal saline. 16:52 Basic Metabolic Panel Sent. sv 16:52 CBC with Diff Sent. sv 16:52 Hepatic Function Sent. sv 17:[address] via stretcher. ah 17:[address] Patient [address] from [address]. sv 18:15 Inserted saline lock: 22 gauge in left upper arm, using aseptic technique. ,using sv aseptic technique. diffusics Blood collected. Flushed left with 5 ml normal saline. 18:38 Urine collected: clean catch specimen, javed colored. sv 19:13 Report given to Lindsay GORE. sv 22:00 IV discontinued, intact, bleeding controlled, No redness/swelling at site. Pressure ea dressing applied. 22:04 No provider procedures requiring assistance completed. ea Administered Medications: 16:12 Drug: Meclizine 25 mg Route: PO; sv 17:30 Follow up: Response: No adverse reaction Outcome: 21:49 Discharge ordered by . pm1 22:05 Discharged to home ambulatory. ea 22:05 Condition: stable 22:05 Discharge instructions given to patient, Instructed on discharge instructions, follow up and referral plans. Demonstrated understanding of instructions, follow-up care, Prescriptions given X 1. 22:05 Patient left the ED. ea Signatures: Iliana Lopez, RN SOFÍA Renée Bahena, prepress technician EKG Tat1 Sage Arthur, CAROLIN SITE LEASING AGENT pm1 Lindsay Tanner RN RN ea Acob, Cheryl, RN RN ca1 James, Frank 1 Dorene Marina RN RN Corrections: (The following items were deleted from the chart) 19:22 19:18 Reassessment: Pt resting with eyes closed, respirations even and unlabored. Chest ea expansions even and symmetrical. No s/s of pain or discomfort noted at this time. ea
--- NOTE | 2019-06-01 08:50 | EKG ---
Test Date: 2019-05-31 Test Time: 15:47:20 Forensic Anthropologist: WISAM MEASUREMENT RESULTS: Intervals: Rate: 84 [place]: 142 QRSD: 96 QT: 414 QTc: 489 [place]: P: 42 [place]: 142 QRS: 4 T: 51 INTERPRETIVE STATEMENTS: Normal sinus rhythm Prolonged QT Abnormal ECG Compared to ECG 12/11/2018 13:39:21 Prolonged QT interval now present Electronically Signed On 06-01-19 08:49:52 SUPERINTENDENT COMPRESSOR STATIONS by Xavier Marina
[2019-06-02 22:44] VITALS: O2SAT 98
[2019-06-02 22:47] VITALS: TEMP 97.6
[2019-06-02 22:50] VITALS: BP 116/54
== END 2019-05-31 22:05 | disposition home or self-care (01) ==
LOC: ER 13:54
DX: H81.10 Benign paroxysmal vertigo, unspecified ear (principal); K74.60 Unspecified cirrhosis of liver
CPT/HCPCS: 93005; 85025; 80048; 36415; 82140; 85610; 80076; 81003; 83690; 70450; 74176; 99284; J8597

== ENCOUNTER 2019-06-29 12:06 | Emergency (ER) | payer OTHER ==
--- OUTSIDE RECORDS SUMMARY | 2019-06-29 12:38 | XMS REPORT ---
:1965 [facility] Address [address] [place] [address] Care Team Providers Name Role Phone ANNMARIE, JOSE Alcantara Unavailable Unavailable MARK IGLESIAS Unavailable Unavailable BEERPATY Gold Unavailable Unavailable SAMNOE, BRIGITTE CROW Unavailable Unavailable LISA CUETO Unavailable Unavailable ROYAL, FRANK GRIFFITHS Unavailable Unavailable Problems This patient has no known problems. Allergies, Adverse Reactions, Alerts This patient has no known allergies or adverse reactions. Medications This patient has no known medications. Results Test Description Test Time Test Comments Text Results Atomic Results Result Comments BLOOD CULTURE 2019-06-24 11:00:00 Test Item Value Reference Range Comments CULTURE (BEAKER) (test fuae=3330) No growth in 5 days BLOOD [id number] 11:00:00 Test Item Value Reference Range Comments CULTURE (BEAKER) (test vptq=1280) No growth in 5 days CBC W/PLT COUNT & AUTO [id number] 05:33:00 Test Item Value Reference Range Comments WHITE BLOOD CELL COUNT 5.3 K/ L 3.5-10.5 (BEAKER) (test kykz=514) RED BLOOD CELL COUNT (BEAKER) 1.95 M/ L 4.63-6.08 (test lsnu=620) HEMOGLOBIN (BEAKER) (test 7.1 GM/DL 13.7-17.5 hsqu=997) HEMATOCRIT (BEAKER) (test 21.5 % 40.1-51.0 xnvs=106) MEAN CORPUSCULAR VOLUME 110.3 fL 79.0-92.2 Discordant MCV result (BEAKER) (test ajsl=344) compared to previous result; clinical correlation required. MEAN CORPUSCULAR HEMOGLOBIN 36.4 pg 25.7-32.2 (BEAKER) (test egst=900) MEAN CORPUSCULAR HEMOGLOBIN 33.0 GM/DL 32.3-36.5 CONC (BEAKER) (test kcpa=299) RED CELL DISTRIBUTION WIDTH 25.2 % 11.6-14.4 (BEAKER) (test uwyp=516) PLATELET COUNT (BEAKER) (test 43 K/CU MM 150-450 nnbl=484) MEAN PLATELET VOLUME (BEAKER) 10.4 fL 9.4-12.4 (test bnhl=742) NUCLEATED RED BLOOD CELLS 0 /100 WBC 0-0 (BEAKER) (test zkkz=304) NEUTROPHILS RELATIVE PERCENT 71 % (BEAKER) (test sjnq=115) LYMPHOCYTES RELATIVE PERCENT 11 % (BEAKER) (test nevf=151) MONOCYTES RELATIVE PERCENT 10 % (BEAKER) (test jquz=117) EOSINOPHILS RELATIVE PERCENT 7 % (BEAKER) (test vlbq=101) BASOPHILS RELATIVE PERCENT 1 % (BEAKER) (test jayw=447) NEUTROPHILS ABSOLUTE COUNT 3.72 K/ L 1.78-5.38 (BEAKER) (test gfle=456) LYMPHOCYTES ABSOLUTE COUNT 0.60 K/ L 1.32-3.57 (BEAKER) (test lrtp=836) MONOCYTES ABSOLUTE COUNT 0.50 K/ L 0.30-0.82 (BEAKER) (test deco=745) EOSINOPHILS ABSOLUTE COUNT 0.35 K/ L 0.04-0.54 (BEAKER) (test vrhq=766) BASOPHILS ABSOLUTE COUNT 0.04 K/ L 0.01-0.08 (BEAKER) (test epvk=144) IMMATURE GRANULOCYTES-RELATIVE 1 % 0-1 PERCENT (BEAKER) (test wwrs=3208) COMPREHENSIVE METABOLIC [id number] 05:14:00 Test Item Value Reference Range Comments TOTAL PROTEIN (BEAKER) 5.2 gm/dL 6.0-8.3 (test ciyh=629) ALBUMIN (BEAKER) (test 2.0 g/dL 3.5-5.0 tsst=8348) ALKALINE PHOSPHATASE 127 U/L 40-150 (BEAKER) (test cgyz=546) BILIRUBIN TOTAL (BEAKER) 13.7 mg/dL 0.2-1.2 (test azbk=800) SODIUM (BEAKER) (test 134 meq/L 136-145 ftdq=432) POTASSIUM (BEAKER) (test 3.5 meq/L 3.5-5.1 wcvo=343) CHLORIDE (BEAKER) (test 105 meq/L 98-107 vblb=688) CO2 (BEAKER) (test 24 meq/L 22-29 ilbv=090) BLOOD UREA NITROGEN 16 mg/dL 7-21 (BEAKER) (test cztm=712) CREATININE (BEAKER) (test 0.86 mg/dL 0.57-1.25 xugd=970) GLUCOSE RANDOM (BEAKER) 102 mg/dL 70-105 (test vlcv=784) CALCIUM (BEAKER) (test 7.5 mg/dL 8.4-10.2 mlsz=440) AST (SGOT) (BEAKER) (test 59 U/L 5-34 eisb=479) ALT (SGPT) (BEAKER) (test 31 U/L 6-55 rwuz=319) EGFR (BEAKER) (test 93 mL/min/1.73 sq m ESTIMATED GFR IS NOT ffuj=2860) ACCURATE CREATININE CLEARANCE IN PREDICTING GLOMERULAR FILTRATION RATE. ESTIMATED GFR IS NOT APPLICABLE FOR DIALYSIS PATIENTS. Legal Instructor ID - DARNELL WSpecimen markedly [id number] 05:10:00 Test Item Value Reference Range Comments PHOSPHORUS (BEAKER) (test xwlu=911) 2.4 mg/dL 2.3-4.7 Legal Instructor ID - DARNELL [id number] 05:10:00 Test Item Value Reference Range Comments MAGNESIUM (BEAKER) (test myzj=284) 1.9 mg/dL 1.6-2.6 Legal Instructor ID - DARNELL WBILIRUBIN, [id number] 05:10:00 Test Item Value Reference Range Comments BILIRUBIN DIRECT (BEAKER) (test vtuy=264) 6.6 mg/dL 0.1-0.5 Legal Instructor ID - DARNELL WCALCIUM, [id number] 05:00:00 Test Item Value Reference Range Comments CALCIUM IONIZED (BEAKER) (test jmiw=093) 1.02 mmol/L 1.12-1.27 PH, BLOOD (BEAKER) (test xmzg=9777) 7.48 PROTHROMBIN [id number] 04:57:00 Test Item Value Reference Range Comments PROTIME (BEAKER) (test ibvv=888) 31.1 seconds 11.9-14.2 INR (BEAKER) (test azcm=737) 3.1 <=5.9 Effective 09/16/2018: PT Reference Range ChangeNew: 11.9-14.2 Previous: 11.7- 14.7RECOMMENDED COUMADIN/WARFARIN INR THERAPY RANGESSTANDARD DOSE: 2.0-3.0 Includes: PROPHYLAXIS for venous thrombosis, systemic embolization; TREATMENT for venous thrombosis and/or pulmonary embolus.HIGH RISK: Target INR is2.5-3.5 for patients wiht mechanical heart valves.[id number] 14:13:00 Test Item Value Reference Range Comments MAGNESIUM (BEAKER) (test 2.1 mg/dL 1.6-2.6 Specimen slightly hemolyzed nmxw=336) Legal Instructor ID - [id number] 14:13:00 Test Item Value Reference Range Comments POTASSIUM (BEAKER) (test 3.9 meq/L 3.5-5.1 Specimen slightly hemolyzed cqti=867) Legal Instructor ID - [id number] 08:44:00 Test Item Value Reference Range Comments T3 TOTAL (BEAKER) (test 33 ng/dL 48-159 76 - 181 ng/dL TEST PERFORMED umog=083) BY Zachary Prell CBC W/PLT COUNT & AUTO [id number] 05:56:00 Test Item Value Reference Range Comments WHITE BLOOD CELL COUNT (BEAKER) (test eevr=691) 5.5 K/ L 3.5-10.5 RED BLOOD CELL COUNT (BEAKER) (test waqq=155) 1.93 M/ L 4.63-6.08 HEMOGLOBIN (BEAKER) (test pprz=200) 7.1 GM/DL 13.7-17.5 HEMATOCRIT (BEAKER) (test qvlt=552) 20.5 % 40.1-51.0 MEAN CORPUSCULAR VOLUME (BEAKER) (test fgbk=520) 106.2 fL 79.0-92.2 MEAN CORPUSCULAR HEMOGLOBIN (BEAKER) (test 36.8 pg 25.7-32.2 ewys=285) MEAN CORPUSCULAR HEMOGLOBIN CONC (BEAKER) (test 34.6 GM/DL 32.3-36.5 dosi=457) RED CELL DISTRIBUTION WIDTH (BEAKER) (test 25.2 % 11.6-14.4 flgg=981) PLATELET COUNT (BEAKER) (test czhv=547) 42 K/CU MM 150-450 MEAN PLATELET VOLUME (BEAKER) (test llts=612) 10.1 fL 9.4-12.4 NUCLEATED RED BLOOD CELLS (BEAKER) (test 0 /100 WBC 0-0 hddr=157) NEUTROPHILS RELATIVE PERCENT (BEAKER) (test 76 % qdae=016) LYMPHOCYTES RELATIVE PERCENT (BEAKER) (test 10 % egct=269) MONOCYTES RELATIVE PERCENT (BEAKER) (test 8 % mvpa=140) EOSINOPHILS RELATIVE PERCENT (BEAKER) (test 4 % dhbl=937) BASOPHILS RELATIVE PERCENT (BEAKER) (test 1 % mtap=485) NEUTROPHILS ABSOLUTE COUNT (BEAKER) (test 4.19 K/ L 1.78-5.38 cnal=592) LYMPHOCYTES ABSOLUTE COUNT (BEAKER) (test 0.56 K/ L 1.32-3.57 lzdu=151) MONOCYTES ABSOLUTE COUNT (BEAKER) (test hxfl=704) 0.42 K/ L 0.30-0.82 EOSINOPHILS ABSOLUTE COUNT (BEAKER) (test 0.23 K/ L 0.04-0.54 ledi=412) BASOPHILS ABSOLUTE COUNT (BEAKER) (test dtjt=140) 0.03 K/ L 0.01-0.08 IMMATURE GRANULOCYTES-RELATIVE PERCENT (BEAKER) 1 % 0-1 (test lvld=0248) COMPREHENSIVE METABOLIC [id number] 05:20:00 Test Item Value Reference Range Comments TOTAL PROTEIN (BEAKER) 4.8 gm/dL 6.0-8.3 (test tbop=537) ALBUMIN (BEAKER) (test 1.9 g/dL 3.5-5.0 hkbr=9189) ALKALINE PHOSPHATASE 113 U/L 40-150 (BEAKER) (test woiq=818) BILIRUBIN TOTAL (BEAKER) 12.0 mg/dL 0.2-1.2 (test pukl=337) SODIUM (BEAKER) (test 132 meq/L 136-145 uoha=583) POTASSIUM (BEAKER) (test 3.3 meq/L 3.5-5.1 jqwx=748) CHLORIDE (BEAKER) (test 102 meq/L 98-107 sugv=892) CO2 (BEAKER) (test 28 meq/L 22-29 fzvp=701) BLOOD UREA NITROGEN 17 mg/dL 7-21 (BEAKER) (test ycol=036) CREATININE (BEAKER) (test 0.75 mg/dL 0.57-1.25 emic=712) GLUCOSE RANDOM (BEAKER) 301 mg/dL 70-105 (test ysws=094) CALCIUM (BEAKER) (test 7.4 mg/dL 8.4-10.2 uqgi=967) AST (SGOT) (BEAKER) (test 56 U/L 5-34 oauh=610) ALT (SGPT) (BEAKER) (test 30 U/L 6-55 ygvi=679) EGFR (BEAKER) (test 109 mL/min/1.73 sq ESTIMATED GFR IS NOT vptu=6444) m ACCURATE CREATININE CLEARANCE IN PREDICTING GLOMERULAR FILTRATION RATE. ESTIMATED GFR IS NOT APPLICABLE FOR DIALYSIS PATIENTS. Legal Instructor ID - DARNELL Denis markedly ictericHEPATIC FUNCTION [id number] 05:20:00 Test Item Value Reference Range Comments TOTAL PROTEIN (BEAKER) (test nrlx=019) 4.8 gm/dL 6.0-8.3 ALBUMIN (BEAKER) (test ufiu=2652) 1.9 g/dL 3.5-5.0 BILIRUBIN TOTAL (BEAKER) (test tkfj=181) 12.0 mg/dL 0.2-1.2 BILIRUBIN DIRECT (BEAKER) (test foud=158) 5.8 mg/dL 0.1-0.5 ALKALINE PHOSPHATASE (BEAKER) (test chxp=908) 113 U/L 40-150 AST (SGOT) (BEAKER) (test qkac=353) 56 U/L 5-34 ALT (SGPT) (BEAKER) (test ounq=960) 30 U/L 6-55 Legal Instructor ID - DARNELL WSsalvadorn markedly [id number] 05:16:00 Test Item Value Reference Range Comments PHOSPHORUS (BEAKER) (test uvna=863) 2.7 mg/dL 2.3-4.7 Legal Instructor ID - DARNELL [id number] 05:16:00 Test Item Value Reference Range Comments MAGNESIUM (BEAKER) (test qjrf=806) 1.9 mg/dL 1.6-2.6 Legal Instructor ID Genevieve PATRICK WPROTHROMBIN TIME/[id number] 05:04:00 Test Item Value Reference Range Comments PROTIME (BEAKER) (test jvsw=475) 29.4 seconds 11.9-14.2 INR (BEAKER) (test lncy=031) 2.9 <=5.9 Effective 09/16/2018: PT Reference Range ChangeNew: 11.9-14.2 Previous: 11.7- 14.7RECOMMENDED COUMADIN/WARFARIN INR THERAPY RANGESSTANDARD DOSE: 2.0-3.0 Includes: PROPHYLAXIS for venous thrombosis, systemic embolization; TREATMENT for venous thrombosis and/or pulmonary embolus.HIGH RISK: Target INR is2.5-3.5 for patients wiht mechanical heart valves.CALCIUM, [id number] 04:51:00 Test Item Value Reference Range Comments CALCIUM IONIZED (BEAKER) (test luji=605) 1.11 mmol/L 1.12-1.27 PH, BLOOD (BEAKER) (test tpvm=4457) 7.42 PROTHROMBIN TIME/[id number] 04:49:00 Test Item Value Reference Range Comments PROTIME (BEAKER) (test dwar=804) 30.7 seconds 11.9-14.2 INR (BEAKER) (test tbkb=069) 3.0 <=5.9 Effective 09/16/2018: PT Reference Range ChangeNew: 11.9-14.2 Previous: 11.7- 14.7RECOMMENDED COUMADIN/WARFARIN INR THERAPY RANGESSTANDARD DOSE: 2.0-3.0 Includes: PROPHYLAXIS for venous thrombosis, systemic embolization; TREATMENT for venous thrombosis and/or pulmonary embolus.HIGH RISK: Target INR is2.5-3.5 for patients wiht mechanical heart valves.RAD, CHEST, 1 VIEW, NON [id number] 22:30:00Reason for exam:->swan positioningShould this be performed at the bedside?->YesFINAL REPORT RAD, CHEST, 1 VIEW, NON DEPT INDICATION: swan positioning COMPARISON: Prior day's exam FINDINGS: Portable frontal view of the chest. IMPRESSION: Support Lines: The Tebbetts-Mariana catheter tip overlies the region of the right ventricle. Further repositioning is suggested. Stable right PICC.Lungs and pleura: No new airspace consolidation or sizable effusion. No pneumothorax.Heart and mediastinum: Stable contours. Additional findings: None. Signed: Lamont Soto Verified Date/Time: 06/21/2019 22:30:23 Electronically signed by: LAMONT SOTO MD on 2019 10:30 PMU/S, [id number] 17:48:00Labs to be ordered:->Body Fluid Culture (w/Gram Stain, C\T\S)Reason for exam:->fever, eval forsbpFINAL REPORT PROCEDURE: Ultrasound-guided paracentesis Procedural PersonnelAttending physician(s): Claudia Griffith MDFellow: [facility] Pre- procedure diagnosis: AscitesPost-procedure diagnosis: SameIndication: Ascites with suspicion of infectionAdditional clinical history: None Complications: No immediate complications. IMPRESSION: Ultrasound-guided paracentesis with drainage of 8 mL ofserous fluid. Plan: Resume care by clinical team. PROCEDURE SUMMARY:- Limited abdominal ultrasound- Ultrasound-guided paracentesis- Additional procedure(s): None PROCEDURE DETAILS: Pre-procedureConsent: Informed consent for the procedure including risks, benefits and alternatives was obtained and time-out was performed prior to the procedure.Preparation: The site was prepared and draped using maximal sterile barrier technique including cutaneous antisepsis. Anesthesia/sedationLevel of anesthesia/sedation: No sedationAnesthesia/sedationadministered by: Not applicableTotal intra-service sedation time (minutes): N/A Initial abdominal ultrasoundInitial abdominal ultrasound was performed.Findings: Trace ascites. A safe window for paracentesis was identified. ParacentesisLocal anesthesia was administered. The peritoneal cavity was accessed and fluid return confirmed position. Ascites was drained. The catheter was then removed, and a sterile bandage was applied.Paracentesis access technique: Real-time ultrasound guidanceCatheter placed:5F YuehPost-drainage ultrasound: Not performed Additional DetailsAdditional description of procedure: NoneEquipment details: NoneSpecimens removed: Abdominal fluidEstimated blood loss (mL): Less than 10Standardized report: [email or web address] AttestationSigner name: Claudia Duncan attest that I was present for the entire procedure. I reviewed the stored images and agree with the report as written. Signed: Claudia Griffith MDReport Verified Date/Time: 06/21/2019 17:48:20 Reading Location: [place] [address] Angio Body Reading Room BILIRUBIN, [id number] 06:32:00 Test Item Value Reference Range Comments BILIRUBIN DIRECT (BEAKER) (test ywoe=827) 6.5 mg/dL 0.1-0.5 Legal Instructor ID - LILY MPROTHROMBIN TIME/[id number] 06:06:00 Test Item Value Reference Range Comments PROTIME (BEAKER) (test vnlp=629) 30.4 seconds 11.9-14.2 INR (BEAKER) (test bokp=798) 3.0 <=5.9 Effective 09/16/2018: PT Reference Range ChangeNew: 11.9-14.2 Previous: 11.7- 14.7RECOMMENDED COUMADIN/WARFARIN INR THERAPY RANGESSTANDARD DOSE: 2.0-3.0 Includes: PROPHYLAXIS for venous thrombosis, systemic embolization; TREATMENT for venous thrombosis and/or pulmonary embolus.HIGH RISK: Target INR is2.5-3.5 for patients wiht mechanical heart valves.CBC W/PLT COUNT & AUTO [id number] 06:02:00 Test Item Value Reference Range Comments WHITE BLOOD CELL COUNT (BEAKER) (test dxen=874) 6.6 K/ L 3.5-10.5 RED BLOOD CELL COUNT (BEAKER) (test ferh=730) 2.05 M/ L 4.63-6.08 HEMOGLOBIN (BEAKER) (test uqam=088) 7.4 GM/DL 13.7-17.5 HEMATOCRIT (BEAKER) (test fczx=454) 21.7 % 40.1-51.0 MEAN CORPUSCULAR VOLUME (BEAKER) (test ijrn=223) 105.9 fL 79.0-92.2 MEAN CORPUSCULAR HEMOGLOBIN (BEAKER) (test 36.1 pg 25.7-32.2 btll=873) MEAN CORPUSCULAR HEMOGLOBIN CONC (BEAKER) (test 34.1 GM/DL 32.3-36.5 xygf=333) RED CELL DISTRIBUTION WIDTH (BEAKER) (test 25.3 % 11.6-14.4 mqyn=097) PLATELET COUNT (BEAKER) (test jffr=272) 41 K/CU MM 150-450 MEAN PLATELET VOLUME (BEAKER) (test siqp=567) 10.0 fL 9.4-12.4 NUCLEATED RED BLOOD CELLS (BEAKER) (test 0 /100 WBC 0-0 qgnp=143) NEUTROPHILS RELATIVE PERCENT (BEAKER) (test 75 % ecnr=163) LYMPHOCYTES RELATIVE PERCENT (BEAKER) (test 11 % jxzi=041) MONOCYTES RELATIVE PERCENT (BEAKER) (test 8 % wfgd=127) EOSINOPHILS RELATIVE PERCENT (BEAKER) (test 5 % igyn=196) BASOPHILS RELATIVE PERCENT (BEAKER) (test 1 % lcug=613) NEUTROPHILS ABSOLUTE COUNT (BEAKER) (test 4.94 K/ L 1.78-5.38 bgwl=357) LYMPHOCYTES ABSOLUTE COUNT (BEAKER) (test 0.71 K/ L 1.32-3.57 wrco=608) MONOCYTES ABSOLUTE COUNT (BEAKER) (test vjsk=660) 0.51 K/ L 0.30-0.82 EOSINOPHILS ABSOLUTE COUNT (BEAKER) (test 0.32 K/ L 0.04-0.54 vfgk=137) BASOPHILS ABSOLUTE COUNT (BEAKER) (test myko=427) 0.04 K/ L 0.01-0.08 IMMATURE GRANULOCYTES-RELATIVE PERCENT (BEAKER) 1 % 0-1 (test qvxs=8778) [id number] 02:21:00 Test Item Value Reference Range Comments THYROID STIMULATING HORMONE (BEAKER) (test 0.12 uIU/mL 0.35-4.94 mfro=139) Legal Instructor ID - LILY [id number] 02:17:00 Test Item Value Reference Range Comments T4 TOTAL (BEAKER) (test kcai=586) 1.5 ug/dL 4.9-11.7 Legal Instructor ID - LILY MRAD, CHEST, 1 VIEW, NON [id number] 00:46:00Chronic Liver Failure pending Transplantation.Reason for exam:->pre-opShould this be performed atthe bedside?->YesFINAL REPORT RAD, CHEST, 1 VIEW, NON DEPT INDICATION: pre-op COMPARISON: Prior day's exam FINDINGS: Portable frontal view of the chest. IMPRESSION: Support Lines: Stable. Lungs and pleura: Increasing right basilar heterogeneous airspace opacity may be related atelectasis however aspiration and infection can appearance in the appropriate clinical context. Trace bilateral pleural effusions. No pneumothorax.Heart and mediastinum: Stable contours. Additional findings: None. Signed: Phoebe Haile Verified Date/Time: 06/21/2019 00:46:23 [id number] 23:45:00 Test Item Value Reference Range Comments PARTIAL THROMBOPLASTIN TIME (BEAKER) (test 55.4 seconds 22.5-36.0 vaau=390) CBC W/PLT COUNT & AUTO [id number] 23:16:00 Test Item Value Reference Range Comments WHITE BLOOD CELL COUNT (BEAKER) (test sexv=354) 7.3 K/ L 3.5-10.5 RED BLOOD CELL COUNT (BEAKER) (test kste=590) 2.08 M/ L 4.63-6.08 HEMOGLOBIN (BEAKER) (test jmki=008) 7.6 GM/DL 13.7-17.5 HEMATOCRIT (BEAKER) (test rldz=601) 22.5 % 40.1-51.0 MEAN CORPUSCULAR VOLUME (BEAKER) (test jhsk=762) 108.2 fL 79.0-92.2 MEAN CORPUSCULAR HEMOGLOBIN (BEAKER) (test 36.5 pg 25.7-32.2 xwwy=221) MEAN CORPUSCULAR HEMOGLOBIN CONC (BEAKER) (test 33.8 GM/DL 32.3-36.5 iavw=229) RED CELL DISTRIBUTION WIDTH (BEAKER) (test 25.2 % 11.6-14.4 dbsx=801) PLATELET COUNT (BEAKER) (test nnss=554) 46 K/CU MM 150-450 MEAN PLATELET VOLUME (BEAKER) (test ytoh=143) 10.1 fL 9.4-12.4 NUCLEATED RED BLOOD CELLS (BEAKER) (test 0 /100 WBC 0-0 fpvc=079) NEUTROPHILS RELATIVE PERCENT (BEAKER) (test 71 % ycxh=456) LYMPHOCYTES RELATIVE PERCENT (BEAKER) (test 13 % pxdk=098) MONOCYTES RELATIVE PERCENT (BEAKER) (test 9 % vujd=729) EOSINOPHILS RELATIVE PERCENT (BEAKER) (test 5 % eeug=265) BASOPHILS RELATIVE PERCENT (BEAKER) (test 1 % sshi=402) NEUTROPHILS ABSOLUTE COUNT (BEAKER) (test 5.19 K/ L 1.78-5.38 gkih=514) LYMPHOCYTES ABSOLUTE COUNT (BEAKER) (test 0.93 K/ L 1.32-3.57 kviu=326) MONOCYTES ABSOLUTE COUNT (BEAKER) (test lsuc=260) 0.66 K/ L 0.30-0.82 EOSINOPHILS ABSOLUTE COUNT (BEAKER) (test 0.36 K/ L 0.04-0.54 spfc=029) BASOPHILS ABSOLUTE COUNT (BEAKER) (test gsuy=448) 0.04 K/ L 0.01-0.08 IMMATURE GRANULOCYTES-RELATIVE PERCENT (BEAKER) 1 % 0-1 (test ptyc=0826) BLOOD [id number] 15:00:00 Test Item Value Reference Range Comments CULTURE (BEAKER) (test unsz=5312) No growth in 5 days BLOOD [id number] 15:00:00 Test Item Value Reference Range Comments CULTURE (BEAKER) (test qajy=9437) No growth in 5 days HEMOGLOBIN AND [id number] 07:16:00 Test Item Value Reference Range Comments HEMOGLOBIN (BEAKER) (test rwfg=129) 6.6 GM/DL 13.7-17.5 HEMATOCRIT (BEAKER) (test jfps=506) 19.8 % 40.1-51.0 Legal Instructor ID - 6000BILIRUBIN, [id number] 05:06:00 Test Item Value Reference Range Comments BILIRUBIN DIRECT (BEAKER) (test khnl=967) 7.3 mg/dL 0.1-0.5 Legal Instructor ID - LILY MCBC W/PLT COUNT & AUTO [id number] 04:56:00 Test Item Value Reference Range Comments WHITE BLOOD CELL COUNT 5.9 K/ L 3.5-10.5 (BEAKER) (test tyuh=932) RED BLOOD CELL COUNT (BEAKER) 1.77 M/ L 4.63-6.08 (test nmkk=502) HEMOGLOBIN (BEAKER) (test 6.4 GM/DL 13.7-17.5 mbjg=943) HEMATOCRIT (BEAKER) (test 19.4 % 40.1-51.0 moqo=557) MEAN CORPUSCULAR VOLUME 109.6 fL 79.0-92.2 Discordant MCV results (BEAKER) (test iukj=920) compared to previous results; clinical correlation required. MEAN CORPUSCULAR HEMOGLOBIN 36.2 pg 25.7-32.2 (BEAKER) (test iqss=023) MEAN CORPUSCULAR HEMOGLOBIN 33.0 GM/DL 32.3-36.5 CONC (BEAKER) (test ertm=882) RED CELL DISTRIBUTION WIDTH 24.3 % 11.6-14.4 (BEAKER) (test nyhv=589) PLATELET COUNT (BEAKER) (test 39 K/CU MM 150-450 aeaq=551) MEAN PLATELET VOLUME (BEAKER) 9.5 fL 9.4-12.4 (test duqr=728) NUCLEATED RED BLOOD CELLS 0 /100 WBC 0-0 (BEAKER) (test rmnh=999) NEUTROPHILS RELATIVE PERCENT 74 % (BEAKER) (test vpwj=303) LYMPHOCYTES RELATIVE PERCENT 10 % (BEAKER) (test ykin=513) MONOCYTES RELATIVE PERCENT 9 % (BEAKER) (test zjeo=012) EOSINOPHILS RELATIVE PERCENT 6 % (BEAKER) (test chdk=936) BASOPHILS RELATIVE PERCENT 0 % (BEAKER) (test cmsw=612) NEUTROPHILS ABSOLUTE COUNT 4.34 K/ L 1.78-5.38 (BEAKER) (test eihp=988) LYMPHOCYTES ABSOLUTE COUNT 0.56 K/ L 1.32-3.57 (BEAKER) (test hhwv=933) MONOCYTES ABSOLUTE COUNT 0.50 K/ L 0.30-0.82 (BEAKER) (test cjbb=367) EOSINOPHILS ABSOLUTE COUNT 0.36 K/ L 0.04-0.54 (BEAKER) (test ohhg=858) BASOPHILS ABSOLUTE COUNT 0.02 K/ L 0.01-0.08 (BEAKER) (test vsll=004) IMMATURE GRANULOCYTES-RELATIVE 1 % 0-1 PERCENT (BEAKER) (test itkc=2929) PROTHROMBIN [id number] 04:54:00 Test Item Value Reference Range Comments PROTIME (BEAKER) (test mxyx=961) 32.3 seconds 11.9-14.2 INR (BEAKER) (test ufev=281) 3.2 <=5.9 Effective 09/16/2018: PT Reference Range ChangeNew: 11.9-14.2 Previous: 11.7- 14.7RECOMMENDED COUMADIN/WARFARIN INR THERAPY RANGESSTANDARD DOSE: 2.0-3.0 Includes: PROPHYLAXIS for venous thrombosis, systemic embolization; TREATMENT for venous thrombosis and/or pulmonary embolus.HIGH RISK: Target INR is2.5-3.5 for patients wiht mechanical heart valves.BASIC METABOLIC [id number] 18:53: 00 Test Item Value Reference Range Comments SODIUM (BEAKER) (test 134 meq/L 136-145 ijjq=920) POTASSIUM (BEAKER) (test 3.2 meq/L 3.5-5.1 cdnh=808) CHLORIDE (BEAKER) (test 98 meq/L 98-107 klqm=037) CO2 (BEAKER) (test 33 meq/L 22-29 cvnu=382) BLOOD UREA NITROGEN 15 mg/dL 7-21 (BEAKER) (test uxgn=809) CREATININE (BEAKER) (test 0.83 mg/dL 0.57-1.25 mcob=506) GLUCOSE RANDOM (BEAKER) 114 mg/dL 70-105 (test zoew=543) CALCIUM (BEAKER) (test 7.8 mg/dL 8.4-10.2 lvcd=280) EGFR (BEAKER) (test 97 mL/min/1.73 sq m ESTIMATED GFR IS NOT lyoh=0518) ACCURATE CREATININE CLEARANCE IN PREDICTING GLOMERULAR FILTRATION RATE. ESTIMATED GFR IS NOT APPLICABLE FOR DIALYSIS PATIENTS. Legal Instructor ID - DUY NSpecimen markedly [id number] 18:49:00 Test Item Value Reference Range Comments MAGNESIUM (BEAKER) (test sitm=664) 2.0 mg/dL 1.6-2.6 Legal Instructor ID - DUY NHEMOGLOBIN AND [id number] 09:04:00 Test Item Value Reference Range Comments HEMOGLOBIN (BEAKER) (test mkpr=741) 6.6 GM/DL 13.7-17.5 HEMATOCRIT (BEAKER) (test tefd=776) 20.0 % 40.1-51.0 Legal Instructor ID - BillBILIRUBIN, [id number] 06:57:00 Test Item Value Reference Range Comments BILIRUBIN DIRECT (BEAKER) (test twzg=897) 7.3 mg/dL 0.1-0.5 Legal Instructor ID - LILY MPROTHROMBIN [id number] 06:49:00 Test Item Value Reference Range Comments PROTIME (BEAKER) (test lniu=225) 31.0 seconds 11.9-14.2 INR (BEAKER) (test iffo=023) 3.1 <=5.9 Effective 09/16/2018: PT Reference Range ChangeNew: 11.9-14.2 Previous: 11.7- 14.7RECOMMENDED COUMADIN/WARFARIN INR THERAPY RANGESSTANDARD DOSE: 2.0-3.0 Includes: PROPHYLAXIS for venous thrombosis, systemic embolization; TREATMENT for venous thrombosis and/or pulmonary embolus.HIGH RISK: Target INR is2.5-3.5 for patients wiht mechanical heart valves.CBC W/PLT COUNT & AUTO [id number] 06:47:00 Test Item Value Reference Range Comments WHITE BLOOD CELL COUNT (BEAKER) (test navh=980) 5.4 K/ L 3.5-10.5 RED BLOOD CELL COUNT (BEAKER) (test utld=411) 1.68 M/ L 4.63-6.08 HEMOGLOBIN (BEAKER) (test egjw=443) 6.3 GM/DL 13.7-17.5 HEMATOCRIT (BEAKER) (test qdmc=071) 19.3 % 40.1-51.0 MEAN CORPUSCULAR VOLUME (BEAKER) (test qkno=598) 114.9 fL 79.0-92.2 MEAN CORPUSCULAR HEMOGLOBIN (BEAKER) (test 37.5 pg 25.7-32.2 nlpa=767) MEAN CORPUSCULAR HEMOGLOBIN CONC (BEAKER) (test 32.6 GM/DL 32.3-36.5 ghjp=775) RED CELL DISTRIBUTION WIDTH (BEAKER) (test 23.9 % 11.6-14.4 wtry=720) PLATELET COUNT (BEAKER) (test atxz=191) 40 K/CU MM 150-450 MEAN PLATELET VOLUME (BEAKER) (test pufr=558) 9.2 fL 9.4-12.4 NUCLEATED RED BLOOD CELLS (BEAKER) (test 0 /100 WBC 0-0 hrow=151) NEUTROPHILS RELATIVE PERCENT (BEAKER) (test 74 % gcwi=430) LYMPHOCYTES RELATIVE PERCENT (BEAKER) (test 9 % yusu=592) MONOCYTES RELATIVE PERCENT (BEAKER) (test 8 % rxyx=828) EOSINOPHILS RELATIVE PERCENT (BEAKER) (test 7 % nrrt=313) BASOPHILS RELATIVE PERCENT (BEAKER) (test 0 % jfhy=935) NEUTROPHILS ABSOLUTE COUNT (BEAKER) (test 4.01 K/ L 1.78-5.38 vqrs=867) LYMPHOCYTES ABSOLUTE COUNT (BEAKER) (test 0.50 K/ L 1.32-3.57 ytxm=002) MONOCYTES ABSOLUTE COUNT (BEAKER) (test gyfu=542) 0.45 K/ L 0.30-0.82 EOSINOPHILS ABSOLUTE COUNT (BEAKER) (test 0.36 K/ L 0.04-0.54 angc=186) BASOPHILS ABSOLUTE COUNT (BEAKER) (test rqsp=124) 0.02 K/ L 0.01-0.08 IMMATURE GRANULOCYTES-RELATIVE PERCENT (BEAKER) 2 % 0-1 (test fzfg=3849) HEMOGLOBIN AND [id number] 15:45:00 Test Item Value Reference Range Comments HEMOGLOBIN (BEAKER) (test wwgg=040) 7.5 GM/DL 13.7-17.5 HEMATOCRIT (BEAKER) (test skei=041) 21.9 % 40.1-51.0 Legal Instructor ID - [id number] METABOLIC [id number] 07:20:00 Test Item Value Reference Range Comments SODIUM (BEAKER) (test 134 meq/L 136-145 fxfx=596) POTASSIUM (BEAKER) (test 3.5 meq/L 3.5-5.1 pffj=817) CHLORIDE (BEAKER) (test 96 meq/L 98-107 rygj=453) CO2 (BEAKER) (test 35 meq/L 22-29 vdzl=601) BLOOD UREA NITROGEN 16 mg/dL 7-21 (BEAKER) (test hgbb=191) CREATININE (BEAKER) (test 0.82 mg/dL 0.57-1.25 siko=579) GLUCOSE RANDOM (BEAKER) 105 mg/dL 70-105 (test quwo=482) CALCIUM (BEAKER) (test 7.4 mg/dL 8.4-10.2 emzz=866) EGFR (BEAKER) (test 98 mL/min/1.73 sq m ESTIMATED GFR IS NOT qcgf=7295) ACCURATE CREATININE CLEARANCE IN PREDICTING GLOMERULAR FILTRATION RATE. ESTIMATED GFR IS NOT APPLICABLE FOR DIALYSIS PATIENTS. Legal Instructor ID Genevieve DICKENS LSpecimen markedly [id number] 07:19:00 Test Item Value Reference Range Comments PHOSPHORUS (BEAKER) (test ikul=274) 2.1 mg/dL 2.3-4.7 Legal Instructor ID - CHRISSIE [id number] 07:19:00 Test Item Value Reference Range Comments MAGNESIUM (BEAKER) (test igta=061) 1.8 mg/dL 1.6-2.6 Legal Instructor ID - CHRISSIE LBILIRUBIN, [id number] 07:19:00 Test Item Value Reference Range Comments BILIRUBIN DIRECT (BEAKER) (test nmvk=632) 6.9 mg/dL 0.1-0.5 Legal Instructor ID - CHRISSIE LCBC W/PLT COUNT & AUTO [id number] 07:13:00 Test Item Value Reference Range Comments WHITE BLOOD CELL COUNT (BEAKER) (test lisn=953) 5.4 K/ L 3.5-10.5 RED BLOOD CELL COUNT (BEAKER) (test gqmw=821) 1.69 M/ L 4.63-6.08 HEMOGLOBIN (BEAKER) (test mfdu=773) 6.2 GM/DL 13.7-17.5 HEMATOCRIT (BEAKER) (test nqkm=472) 18.8 % 40.1-51.0 MEAN CORPUSCULAR VOLUME (BEAKER) (test vscz=632) 111.2 fL 79.0-92.2 MEAN CORPUSCULAR HEMOGLOBIN (BEAKER) (test 36.7 pg 25.7-32.2 gpmm=123) MEAN CORPUSCULAR HEMOGLOBIN CONC (BEAKER) (test 33.0 GM/DL 32.3-36.5 qsui=386) RED CELL DISTRIBUTION WIDTH (BEAKER) (test 24.1 % 11.6-14.4 iltt=169) PLATELET COUNT (BEAKER) (test sokl=711) 40 K/CU MM 150-450 MEAN PLATELET VOLUME (BEAKER) (test nvri=055) 9.7 fL 9.4-12.4 NUCLEATED RED BLOOD CELLS (BEAKER) (test 0 /100 WBC 0-0 odnc=303) NEUTROPHILS RELATIVE PERCENT (BEAKER) (test 75 % rmbn=466) LYMPHOCYTES RELATIVE PERCENT (BEAKER) (test 9 % xpoc=498) MONOCYTES RELATIVE PERCENT (BEAKER) (test 8 % woex=410) EOSINOPHILS RELATIVE PERCENT (BEAKER) (test 6 % huhl=006) BASOPHILS RELATIVE PERCENT (BEAKER) (test 0 % ikxj=861) NEUTROPHILS ABSOLUTE COUNT (BEAKER) (test 4.01 K/ L 1.78-5.38 wvsk=376) LYMPHOCYTES ABSOLUTE COUNT (BEAKER) (test 0.46 K/ L 1.32-3.57 zljl=511) MONOCYTES ABSOLUTE COUNT (BEAKER) (test ciyi=476) 0.45 K/ L 0.30-0.82 EOSINOPHILS ABSOLUTE COUNT (BEAKER) (test 0.32 K/ L 0.04-0.54 vmjt=533) BASOPHILS ABSOLUTE COUNT (BEAKER) (test ksbm=913) 0.02 K/ L 0.01-0.08 IMMATURE GRANULOCYTES-RELATIVE PERCENT (BEAKER) 2 % 0-1 (test bavu=9465) PROTHROMBIN TIME/[id number] 07:05:00 Test Item Value Reference Range Comments PROTIME (BEAKER) (test ekgq=269) 32.5 seconds 11.9-14.2 INR (BEAKER) (test zzki=512) 3.3 <=5.9 Effective 09/16/2018: PT Reference Range ChangeNew: 11.9-14.2 Previous: 11.7- 14.7RECOMMENDED COUMADIN/WARFARIN INR THERAPY RANGESSTANDARD DOSE: 2.0-3.0 Includes: PROPHYLAXIS for venous thrombosis, systemic embolization; TREATMENT for venous thrombosis and/or pulmonary embolus.HIGH RISK: Target INR is2.5-3.5 for patients wiht mechanical heart valves.CBC W/PLT COUNT & AUTO [id number] 10:21:00 Test Item Value Reference Range Comments WHITE BLOOD CELL COUNT (BEAKER) (test wovq=442) 6.2 K/ L 3.5-10.5 RED BLOOD CELL COUNT (BEAKER) (test wcrr=643) 1.89 M/ L 4.63-6.08 HEMOGLOBIN (BEAKER) (test lqvk=436) 7.1 GM/DL 13.7-17.5 HEMATOCRIT (BEAKER) (test qvql=674) 20.8 % 40.1-51.0 MEAN CORPUSCULAR VOLUME (BEAKER) (test pogq=766) 110.1 fL 79.0-92.2 MEAN CORPUSCULAR HEMOGLOBIN (BEAKER) (test 37.6 pg 25.7-32.2 wvjq=967) MEAN CORPUSCULAR HEMOGLOBIN CONC (BEAKER) (test 34.1 GM/DL 32.3-36.5 udoc=193) RED CELL DISTRIBUTION WIDTH (BEAKER) (test 24.7 % 11.6-14.4 qxcm=596) PLATELET COUNT (BEAKER) (test mwcy=672) 42 K/CU MM 150-450 MEAN PLATELET VOLUME (BEAKER) (test osnm=791) 9.7 fL 9.4-12.4 NUCLEATED RED BLOOD CELLS (BEAKER) (test 0 /100 WBC 0-0 tzhu=389) (CELLAVISION MANUAL DIFF)2019-06-17 10:21:00 Test Item Value Reference Range Comments NEUTROPHILS - REL (CELLAVISION)(BEAKER) (test 83 % ghiz=4993) LYMPHOCYTES - REL (CELLAVISION)(BEAKER) (test 5 % vzyc=0334) MONOCYTES - REL (CELLAVISION)(BEAKER) (test 5 % oxvh=3263) EOSINOPHILS - REL (CELLAVISION)(BEAKER) (test 6 % swmu=3547) BANDS - REL (CELLAVISION)(BEAKER) (test 1 % 0-10 iuhr=3930) NEUTROPHILS - ABS (CELLAVISION)(BEAKER) (test 5.15 K/ul 1.78-5.38 tsqk=6706) LYMPHOCYTES - ABS (CELLAVISION)(BEAKER) (test 0.31 K/ul 1.32-3.57 qyrl=9394) MONOCYTES - ABS (CELLAVISION)(BEAKER) (test 0.31 K/uL 0.30-0.82 hrqg=4996) EOSINOPHILS - ABS (CELLAVISION)(BEAKER) (test 0.37 K/uL 0.04-0.54 zpdm=7533) BANDS - ABS (CELLAVISION)(BEAKER) (test 0.06 K/uL 0.00-0.80 iwtw=2062) TOTAL COUNTED (BEAKER) (test usib=6971) 100 WBC MORPHOLOGY (BEAKER) (test ebsf=422) Normal PLT MORPHOLOGY (BEAKER) (test tjvr=149) Normal POLYCHROMATOPHILLIC RBCS(BEAKER) (test wqtv=269) 1+ few HYPOCHROMIA (BEAKER) (test ynrx=195) 1+ few SCHISTOCYTES (BEAKER) (test chgh=984) 1+ few ASHLEY CELLS (BEAKER) (test sbay=986) 2+ moderate ARTIFACT (CELLAVISION)(BEAKER) (test itvj=0203) Present PLATELET CONCENTRATION (CELLAVISION)(BEAKER) Decreased (test sxth=9081) Legal Instructor ID - [id number] ID - Esther Nevarez comments: Slide comments: [id number] 07:35:00 Test Item Value Reference Range Comments MAGNESIUM (BEAKER) (test ktav=884) 1.8 mg/dL 1.6-2.6 Legal Instructor ID - CHRISSIE LBILIRUBIN, [id number] 07:34:00 Test Item Value Reference Range Comments BILIRUBIN DIRECT (BEAKER) (test yrjg=400) 8.5 mg/dL 0.1-0.5 Legal Instructor ID - CHRISSIE [id number] 07:25:00 Test Item Value Reference Range Comments PHOSPHORUS (BEAKER) (test xfvv=816) 2.2 mg/dL 2.3-4.7 Legal Instructor ID - CHRISSIE LCOMPREHENSIVE METABOLIC [id number] 07:23:00 Test Item Value Reference Range Comments TOTAL PROTEIN (BEAKER) 5.6 gm/dL 6.0-8.3 (test qkmb=769) ALBUMIN (BEAKER) (test 2.4 g/dL 3.5-5.0 xkpt=9217) ALKALINE PHOSPHATASE 129 U/L 40-150 (BEAKER) (test aljn=429) BILIRUBIN TOTAL (BEAKER) 18.4 mg/dL 0.2-1.2 (test klhb=097) SODIUM (BEAKER) (test 133 meq/L 136-145 ikoe=015) POTASSIUM (BEAKER) (test 3.4 meq/L 3.5-5.1 crgu=952) CHLORIDE (BEAKER) (test 98 meq/L 98-107 znml=529) CO2 (BEAKER) (test 29 meq/L 22-29 lgqd=400) BLOOD UREA NITROGEN 24 mg/dL 7-21 (BEAKER) (test firh=088) CREATININE (BEAKER) (test 0.85 mg/dL 0.57-1.25 xpmg=466) GLUCOSE RANDOM (BEAKER) 137 mg/dL 70-105 (test tszu=146) CALCIUM (BEAKER) (test 7.6 mg/dL 8.4-10.2 pben=656) AST (SGOT) (BEAKER) (test 73 U/L 5-34 lykj=116) ALT (SGPT) (BEAKER) (test 42 U/L 6-55 kdum=976) EGFR (BEAKER) (test 94 mL/min/1.73 sq m ESTIMATED GFR IS NOT siwo=4784) ACCURATE CREATININE CLEARANCE IN PREDICTING GLOMERULAR FILTRATION RATE. ESTIMATED GFR IS NOT APPLICABLE FOR DIALYSIS PATIENTS. Legal Instructor BRYSON DICKENS LB-TYPE NATRIURETIC FACTOR (BNP)2019-06-17 06:56:00 Test Item Value Reference Range Comments B-TYPE NATRIURETIC PEPTIDE (BEAKER) (test 321 pg/mL 0-100 fbgo=435) Legal Instructor ID Genevieve DICKENS LCALCIUM, [id number] 06:52:00 Test Item Value Reference Range Comments CALCIUM IONIZED (BEAKER) (test umlz=779) 1.01 mmol/L 1.12-1.27 PH, BLOOD (BEAKER) (test wgjk=8795) 7.48 PROTHROMBIN TIME/[id number] 06:33:00 Test Item Value Reference Range Comments PROTIME (BEAKER) (test bsnj=140) 29.8 seconds 11.9-14.2 INR (BEAKER) (test naog=686) 2.9 <=5.9 Effective 09/16/2018: PT Reference Range ChangeNew: 11.9-14.2 Previous: 11.7- 14.7RECOMMENDED COUMADIN/WARFARIN INR THERAPY RANGESSTANDARD DOSE: 2.0-3.0 Includes: PROPHYLAXIS for venous thrombosis, systemic embolization; TREATMENT for venous thrombosis and/or pulmonary embolus.HIGH RISK: Target INR is2.5-3.5 for patients wiht mechanical heart valves.U/S, HEPATIC PORTAL VESSEL WITH [id number] 10:27:00Reason for exam:->ETOH, CIRRHOSISShould this be performed at the bedside?->YesFINAL REPORT Ultrasound of the Abdomen and Duplex Doppler dated 06/16/2019 TECHNIQUE: Sonographic assessment of the abdomen was performed as well as a detailed duplex Doppler assessment of the liver including spectral wave forms and color- flow analysis of the major vascular structures. Clinical History: Cirrhosis. Comparison study: Abdominal ultrasound dated 06/03/2019. Findings: Exam is suboptimal due to patient body habitus and difficulty with breath holding. The liver is coarse and nodular in echotexture with no focal masses. It measures approximately 8.7 cm in length. There is no evidence of intra or extrahepatic biliary dilatation with the common bile duct measuring fourmm. The gallbladder has been removed. The spleen measures 14.3 cm, enlarged. The pancreas is obscured by bowel gas. No ascites is present. The right kidney measures 11.6 x 5.9 x 6.5 cm. The left kidneywas not imaged. The right kidney is within normal limits. No pleural effusions are seen. The proximal aorta and IVC are unremarkable. Doppler interrogation of the liver demonstrates a main portal vein diameter measuring 1.0 cm with a peak systolic velocity of 11.2 cm/sec. There is poor visualizationof the right and main portal veins. Hepatofugal inflow is seen in the right, left and main portal veins. Hepatopedal flow is seen in the splenic vein at the splenic hilum. The splenic vein at the levelof the pancreatic tail and head are not visualized due to overlying bowel gas. Splenic varices are visualized. The resistive indices in the proper, right and left hepatic arteries are 0.7, 0.8 and 0.8 respectively. Outflow with appropriate directionality is seen in the IVC, hepatic venous confluence as well as the right, middle and left hepatic veins. Impression: Suboptimal examination due to body habitus and difficulty with breath holding. 1. Hepatofugal flow in the visualized portions of the right, left, and main portal veins.2. Splenomegaly.3. Splenic varices. Signed: Trudy CamachoeportVerified Date/Time: 06/16/2019 10:27:44 Reading Location: [address] Radiology Reading Room CALCIUM, [id number] 07:09:00 Test Item Value Reference Range Comments CALCIUM IONIZED (BEAKER) (test xfki=613) 1.07 mmol/L 1.12-1.27 PH, BLOOD (BEAKER) (test ikbq=9286) 7.42 [id number] 06:42:00 Test Item Value Reference Range Comments PHOSPHORUS (BEAKER) (test jtdk=265) 3.2 mg/dL 2.3-4.7 Legal Instructor ID - LILY [id number] 06:42:00 Test Item Value Reference Range Comments MAGNESIUM (BEAKER) (test kjkb=857) 2.1 mg/dL 1.6-2.6 Legal Instructor ID - LILY MCOMPREHENSIVE METABOLIC [id number] 06:42:00 Test Item Value Reference Range Comments TOTAL PROTEIN (BEAKER) 5.9 gm/dL 6.0-8.3 (test msmu=606) ALBUMIN (BEAKER) (test 2.6 g/dL 3.5-5.0 xvsq=7119) ALKALINE PHOSPHATASE 124 U/L 40-150 (BEAKER) (test gqhc=416) BILIRUBIN TOTAL (BEAKER) 19.5 mg/dL 0.2-1.2 (test jttm=740) SODIUM (BEAKER) (test 132 meq/L 136-145 dljl=585) POTASSIUM (BEAKER) (test 3.7 meq/L 3.5-5.1 atme=020) CHLORIDE (BEAKER) (test 98 meq/L 98-107 nbip=708) CO2 (BEAKER) (test 28 meq/L 22-29 lumx=602) BLOOD UREA NITROGEN 36 mg/dL 7-21 (BEAKER) (test vpwm=464) CREATININE (BEAKER) (test 1.01 mg/dL 0.57-1.25 dklw=935) GLUCOSE RANDOM (BEAKER) 130 mg/dL 70-105 (test gwxt=046) CALCIUM (BEAKER) (test 8.1 mg/dL 8.4-10.2 tjdy=925) AST (SGOT) (BEAKER) (test 86 U/L 5-34 fvzk=546) ALT (SGPT) (BEAKER) (test 47 U/L 6-55 bbaa=449) EGFR (BEAKER) (test 77 mL/min/1.73 sq m ESTIMATED GFR IS NOT jwuw=1447) ACCURATE CREATININE CLEARANCE IN PREDICTING GLOMERULAR FILTRATION RATE. ESTIMATED GFR IS NOT APPLICABLE FOR DIALYSIS PATIENTS. Legal Instructor BRYSON BAUTISTA MSpecimen markedly ictericBILIRUBIN, [id number] 06:42: 00 Test Item Value Reference Range Comments BILIRUBIN DIRECT (BEAKER) (test blhh=612) 8.7 mg/dL 0.1-0.5 Legal Instructor ID - LILY MCBC W/PLT COUNT & AUTO [id number] 06:15:00 Test Item Value Reference Range Comments WHITE BLOOD CELL COUNT (BEAKER) (test uauu=830) 7.6 K/ L 3.5-10.5 RED BLOOD CELL COUNT (BEAKER) (test axjc=130) 2.04 M/ L 4.63-6.08 HEMOGLOBIN (BEAKER) (test cwrw=595) 7.5 GM/DL 13.7-17.5 HEMATOCRIT (BEAKER) (test tgho=505) 22.2 % 40.1-51.0 MEAN CORPUSCULAR VOLUME (BEAKER) (test kxmx=962) 108.8 fL 79.0-92.2 MEAN CORPUSCULAR HEMOGLOBIN (BEAKER) (test 36.8 pg 25.7-32.2 wson=537) MEAN CORPUSCULAR HEMOGLOBIN CONC (BEAKER) (test 33.8 GM/DL 32.3-36.5 tmji=797) RED CELL DISTRIBUTION WIDTH (BEAKER) (test 25.1 % 11.6-14.4 jjxk=465) PLATELET COUNT (BEAKER) (test sprg=499) 48 K/CU MM 150-450 MEAN PLATELET VOLUME (BEAKER) (test muna=043) 9.3 fL 9.4-12.4 NUCLEATED RED BLOOD CELLS (BEAKER) (test 0 /100 WBC 0-0 yich=666) NEUTROPHILS RELATIVE PERCENT (BEAKER) (test 71 % kahi=947) LYMPHOCYTES RELATIVE PERCENT (BEAKER) (test 10 % ekgj=949) MONOCYTES RELATIVE PERCENT (BEAKER) (test 9 % bwdo=707) EOSINOPHILS RELATIVE PERCENT (BEAKER) (test 5 % yjiz=894) BASOPHILS RELATIVE PERCENT (BEAKER) (test 0 % cyha=629) NEUTROPHILS ABSOLUTE COUNT (BEAKER) (test 5.39 K/ L 1.78-5.38 sgdl=969) LYMPHOCYTES ABSOLUTE COUNT (BEAKER) (test 0.79 K/ L 1.32-3.57 foxx=524) MONOCYTES ABSOLUTE COUNT (BEAKER) (test qaus=939) 0.66 K/ L 0.30-0.82 EOSINOPHILS ABSOLUTE COUNT (BEAKER) (test 0.34 K/ L 0.04-0.54 nwpt=935) BASOPHILS ABSOLUTE COUNT (BEAKER) (test xxqr=055) 0.01 K/ L 0.01-0.08 IMMATURE GRANULOCYTES-RELATIVE PERCENT (BEAKER) 5 % 0-1 (test dxor=0584) PROTHROMBIN TIME/[id number] 05:51:00 Test Item Value Reference Range Comments PROTIME (BEAKER) (test zcne=765) 28.1 seconds 11.9-14.2 INR (BEAKER) (test vwqk=368) 2.7 <=5.9 Effective 09/16/2018: PT Reference Range ChangeNew: 11.9-14.2 Previous: 11.7- 14.7RECOMMENDED COUMADIN/WARFARIN INR THERAPY RANGESSTANDARD DOSE: 2.0-3.0 Includes: PROPHYLAXIS for venous thrombosis, systemic embolization; TREATMENT for venous thrombosis and/or pulmonary embolus.HIGH RISK: Target INR is2.5-3.5 for patients wiht mechanical heart valves.BLOOD [id number] 19:01:00 Test Item Value Reference Range Comments CULTURE (BEAKER) (test qvyw=6077) No growth in 5 days BLOOD [id number] 19:01:00 Test Item Value Reference Range Comments CULTURE (BEAKER) (test wjmi=1873) No growth in 5 days [id number] 15:55:00 Test Item Value Reference Range Comments T3 TOTAL (BEAKER) (test T3 Total: 27 ng/dLReference arrc=145) Range: 76 - 181 ng/dLTesting performed at [facility]. URINALYSIS W/ REFLEX URINE [id number] 15:04:00 Test Item Value Reference Range Comments COLOR (BEAKER) (test udxy=211) Yellow CLARITY (BEAKER) (test spao=028) Clear SPECIFIC GRAVITY UA (BEAKER) (test oluo=979) 1.005 1.001-1.035 PH UA (BEAKER) (test rcfs=755) 5.0 5.0-8.0 PROTEIN UA (BEAKER) (test chmx=333) Negative Negative GLUCOSE UA (BEAKER) (test exem=846) Negative Negative KETONES UA (BEAKER) (test rrcd=421) Negative Negative BILIRUBIN UA (BEAKER) (test obqz=082) Negative Negative BLOOD UA (BEAKER) (test wwxp=473) Negative Negative NITRITE UA (BEAKER) (test mesa=135) Negative Negative LEUKOCYTE ESTERASE UA (BEAKER) (test msjs=664) Negative Negative UROBILINOGEN UA (BEAKER) (test hhed=649) 0.2 mg/dL 0.2-1.0 RBC UA (BEAKER) (test xlpa=907) 0 /HPF WBC UA (BEAKER) (test ccmr=794) 1 /HPF MUCUS (BEAKER) (test dqha=6027) Rare SQUAMOUS EPITHELIAL (BEAKER) (test cbtb=413) < /HPF HYALINE CASTS (BEAKER) (test mftt=993) 3 /LPF SOURCE(BEAKER) (test qqxn=2814) Legal Instructor ID - [auto]Legal Instructor ID - techPROTHROMBIN TIME/[id number] 14:31:00 Test Item Value Reference Range Comments PROTIME (BEAKER) (test lmmx=875) 27.8 seconds 11.9-14.2 INR (BEAKER) (test nyhg=210) 2.7 <=5.9 Effective 09/16/2018: PT Reference Range ChangeNew: 11.9-14.2 Previous: 11.7- 14.7RECOMMENDED COUMADIN/WARFARIN INR THERAPY RANGESSTANDARD DOSE: 2.0-3.0 Includes: PROPHYLAXIS for venous thrombosis, systemic embolization; TREATMENT for venous thrombosis and/or pulmonary embolus.HIGH RISK: Target INR is2.5-3.5 for patients wiht mechanical heart valves.RAD, CHEST, 1 VIEW, NON [id number] 12:29:00Reason for exam:->PICC LINE PLACEMENTShould this be performed at the bedside?->YesFINAL REPORT RAD, CHEST, 1 VIEW, NON DEPT INDICATION: PICC LINE PLACEMENT COMPARISON: June 11, 2019 FINDINGS: Portable frontal view of the chest. IMPRESSION: Support Lines: Right-sided PICC terminates over the superior vena cava.Lungs and pleura: No new consolidation or effusion. No pneumothorax.Heart and mediastinum: Stable contours. Additional findings: None. Signed: JR Jaquez Robert MDReport Verified Date/Time: 06/15/2019 12:29:57 Reading Location: [facility] Radiology Reading Room Electronically signed by: FREDO JAQUEZ on 12:29 PMVARICELLA ZOSTER ANTIBODY, [id number] 11:00:00 Test Item Value Reference Range Comments VARICELLA ZOSTER IGG (AL) (BEAKER) (test vapp=3819) 4.3 VARICELLA ZOSTER RESULT INTERPRETATIONS: <=0.8 Al Nonreactive: Presumed non-immune to VZV 0.9-1.0 Al Equivocal >=1.1 Al Reactive: Presumed immune to VZVCYTOMEGALOVIRUS ANTIBODY, [id number] 10:38:00 Test Item Value Reference Range Comments CYTOMEGALOVIRUS, IGG (BEAKER) (test dokm=7550) Positive Negative, Equivocal CMV IgG Result Interpretation: </=0.8 Al Negative 0.9-1.0 Al Equivocal &gt ;/=1.1 Al PositiveCYTOMEGALOVIRUS ANTIBODY, [id number] 10:38:00 Test Item Value Reference Range Comments CYTOMEGALOVIRUS IGM ANTIBODY (BEAKER) (test Negative Negative, Equivocal hvfc=2443) CMV IgM Result Interpretation: </=0.8 Al Negative 0.9-1.0 Al Equivocal >/=1.1 Al PositiveEBV ANTIBODY, [id number] 10:38:00 Test Item Value Reference Range Comments JOSEPH LAMAR VIRAL CAPSID ANTIGEN IGG (BEAKER) Positive Negative, Equivocal (test umxl=0083) Joseph Lamar Viral Capsid Antigen IgG Result Interpretation: </=0.8 Al Negative 0.9-1.0 Al Equivocal >/=1.1 Al PositiveEBV ANTIBODY, [id number] 10:38:00 Test Item Value Reference Range Comments JOSEPH LAMAR VIRAL CAPSID ANTIGEN IGM (BEAKER) Negative Negative, Equivocal (test wrct=8410) Joseph Lamar Viral Capsid Antigen IgM Result Interpretation: </=0.8 Al Negative 0.9-1.0 Al Equivocal >/=1.1 Al PositiveRUBELLA ANTIBODY, [id number] 10:38:00 Test Item Value Reference Range Comments RUBELLA IGG QUANTITATION (BEAKER) (test aysr=574) 63.0 IU/mL <8.0 Rubella IgG Result Interpretation: </=7.0 IU/mL Negative - Presumed non- immune 8.0 - 9.9 IU/mL Equivocal >=10.0 IU/mL Positive - Presumed immuneMISCELLANEOUS LAB [id number] 08:27:00 Test Item Value Reference Range Comments SCAN RESULT (test eypf=[id number]) CALCIUM, [id number] 07:06:00 Test Item Value Reference Range Comments CALCIUM IONIZED (BEAKER) (test vspx=234) 1.07 mmol/L 1.12-1.27 PH, BLOOD (BEAKER) (test ynkw=9084) 7.45 COMPREHENSIVE METABOLIC [id number] 06:17:00 Test Item Value Reference Range Comments TOTAL PROTEIN (BEAKER) 5.7 gm/dL 6.0-8.3 (test opxy=253) ALBUMIN (BEAKER) (test 2.5 g/dL 3.5-5.0 maqu=3460) ALKALINE PHOSPHATASE 124 U/L 40-150 (BEAKER) (test wowo=688) BILIRUBIN TOTAL (BEAKER) 17.2 mg/dL 0.2-1.2 (test rimr=090) SODIUM (BEAKER) (test 128 meq/L 136-145 llmi=129) POTASSIUM (BEAKER) (test 3.7 meq/L 3.5-5.1 grbu=537) CHLORIDE (BEAKER) (test 97 meq/L 98-107 erlm=626) CO2 (BEAKER) (test 24 meq/L 22-29 wqya=167) BLOOD UREA NITROGEN 51 mg/dL 7-21 (BEAKER) (test tjuu=476) CREATININE (BEAKER) (test 1.45 mg/dL 0.57-1.25 trem=026) GLUCOSE RANDOM (BEAKER) 106 mg/dL 70-105 (test jgbe=702) CALCIUM (BEAKER) (test 7.9 mg/dL 8.4-10.2 fahh=163) AST (SGOT) (BEAKER) (test 76 U/L 5-34 ycsz=211) ALT (SGPT) (BEAKER) (test 41 U/L 6-55 efzq=236) EGFR (BEAKER) (test 51 mL/min/1.73 sq m ESTIMATED GFR IS NOT xjzj=3021) ACCURATE CREATININE CLEARANCE IN PREDICTING GLOMERULAR FILTRATION RATE. ESTIMATED GFR IS NOT APPLICABLE FOR DIALYSIS PATIENTS. Legal Instructor ID - LILY MSpecimen markedly ictericCBC W/PLT COUNT & AUTO [id number] 06:06:00 Test Item Value Reference Range Comments WHITE BLOOD CELL COUNT (BEAKER) (test etto=342) 8.4 K/ L 3.5-10.5 RED BLOOD CELL COUNT (BEAKER) (test toey=993) 2.05 M/ L 4.63-6.08 HEMOGLOBIN (BEAKER) (test fcrt=463) 7.5 GM/DL 13.7-17.5 HEMATOCRIT (BEAKER) (test lidl=295) 22.1 % 40.1-51.0 MEAN CORPUSCULAR VOLUME (BEAKER) (test whwl=090) 107.8 fL 79.0-92.2 MEAN CORPUSCULAR HEMOGLOBIN (BEAKER) (test 36.6 pg 25.7-32.2 vsdg=731) MEAN CORPUSCULAR HEMOGLOBIN CONC (BEAKER) (test 33.9 GM/DL 32.3-36.5 ciul=322) RED CELL DISTRIBUTION WIDTH (BEAKER) (test 25.2 % 11.6-14.4 yxll=043) PLATELET COUNT (BEAKER) (test ptjg=361) 46 K/CU MM 150-450 MEAN PLATELET VOLUME (BEAKER) (test kyyk=670) 10.2 fL 9.4-12.4 NUCLEATED RED BLOOD CELLS (BEAKER) (test 0 /100 WBC 0-0 pqbr=418) NEUTROPHILS RELATIVE PERCENT (BEAKER) (test 76 % camb=025) LYMPHOCYTES RELATIVE PERCENT (BEAKER) (test 10 % rnha=155) MONOCYTES RELATIVE PERCENT (BEAKER) (test 8 % yrtd=282) EOSINOPHILS RELATIVE PERCENT (BEAKER) (test 2 % zsuu=787) BASOPHILS RELATIVE PERCENT (BEAKER) (test 0 % wnlx=519) NEUTROPHILS ABSOLUTE COUNT (BEAKER) (test 6.37 K/ L 1.78-5.38 hzvo=522) LYMPHOCYTES ABSOLUTE COUNT (BEAKER) (test 0.83 K/ L 1.32-3.57 eptz=997) MONOCYTES ABSOLUTE COUNT (BEAKER) (test xsko=722) 0.71 K/ L 0.30-0.82 EOSINOPHILS ABSOLUTE COUNT (BEAKER) (test 0.18 K/ L 0.04-0.54 xhtg=484) BASOPHILS ABSOLUTE COUNT (BEAKER) (test hvzv=722) 0.01 K/ L 0.01-0.08 IMMATURE GRANULOCYTES-RELATIVE PERCENT (BEAKER) 4 % 0-1 (test eyeo=2127) [id number] 06:02:00 Test Item Value Reference Range Comments PHOSPHORUS (BEAKER) (test ysrn=939) 3.6 mg/dL 2.3-4.7 Legal Instructor ID - LILY [id number] 06:02:00 Test Item Value Reference Range Comments MAGNESIUM (BEAKER) (test ifgi=596) 2.5 mg/dL 1.6-2.6 Legal Instructor ID - LILY MB-TYPE NATRIURETIC FACTOR (BNP)2019-06-15 05:41:00 Test Item Value Reference Range Comments B-TYPE NATRIURETIC PEPTIDE (BEAKER) (test 569 pg/mL 0-100 wkzv=338) Legal Instructor ID - LILY MBODY FLUID CULTURE + GRAM [id number] 13:48:00 Test Item Value Reference Range Comments CULTURE (BEAKER) (test rvdd=7079) No growth GRAM STAIN RESULT (BEAKER) (test No white blood cells seen tvqv=2520) GRAM STAIN RESULT (BEAKER) (test No organisms seen dtmb=27057) CRYPTOCOCCAL [id number] 11:36:00 Test Item Value Reference Range Comments CRYPTOCOCCAL ANTIGEN, SERUM (BEAKER) (test Negative Negative, Interference sbwq=0575) CT, [id number] 08:55:00FINAL REPORT INDICATION: Bacteremia. Evaluate for intra-abdominal abscess. COMPARISON: Abdomen ultrasound Limited June 03, 2019 TECHNIQUE: CT of the Abdomen and Pelvis WITHOUTintravenous contrast. Enteric contrast was not used. The exam was performed according to our department dose-optimization protocol, which includes automated exposure control, adjustments of mA and kV according to patient size. Iterative reconstructions are also sometimes employed. FINDINGS: The liver is slightly small in size and there is an irregular contour indicating cirrhosis. There is no ascites or peritoneal collection. Large splenorenal shunt noted. Patient is status post cholecystectomy. No biliary ductal dilation demonstrated. Pancreas, adrenal glands, kidneys, and bladder are unremarkable.No bowel obstruction is demonstrated. Diffuse body wall edema noted. Lower thorax unremarkable. No suspicious osseous lesion demonstrated. IMPRESSION: Cirrhosis with large splenorenal shunt. No ascitesor peritoneal collection. Diffuse body wall edema. Signed: Yolanda Lott MDReport Verified Date/Time: 06/14/2019 08:55:07 Reading Location: [facility] Diagnostic Imaging Reading Room - [place] [address] CBC W/PLT COUNT & AUTO [id number] 07: 50:00 Test Item Value Reference Range Comments WHITE BLOOD CELL COUNT (BEAKER) (test cery=350) 10.0 K/ L 3.5-10.5 RED BLOOD CELL COUNT (BEAKER) (test hbur=873) 1.97 M/ L 4.63-6.08 HEMOGLOBIN (BEAKER) (test uxos=130) 7.3 GM/DL 13.7-17.5 HEMATOCRIT (BEAKER) (test bzpp=451) 20.9 % 40.1-51.0 MEAN CORPUSCULAR VOLUME (BEAKER) (test ttpa=506) 106.1 fL 79.0-92.2 MEAN CORPUSCULAR HEMOGLOBIN (BEAKER) (test 37.1 pg 25.7-32.2 nrfx=864) MEAN CORPUSCULAR HEMOGLOBIN CONC (BEAKER) (test 34.9 GM/DL 32.3-36.5 nhva=419) RED CELL DISTRIBUTION WIDTH (BEAKER) (test 25.0 % 11.6-14.4 sfdw=855) PLATELET COUNT (BEAKER) (test djty=453) 44 K/CU MM 150-450 MEAN PLATELET VOLUME (BEAKER) (test iaav=031) 9.6 fL 9.4-12.4 NUCLEATED RED BLOOD CELLS (BEAKER) (test 0 /100 WBC 0-0 agsk=072) NEUTROPHILS RELATIVE PERCENT (BEAKER) (test 80 % axhi=557) LYMPHOCYTES RELATIVE PERCENT (BEAKER) (test 7 % kfeu=435) MONOCYTES RELATIVE PERCENT (BEAKER) (test 10 % jyym=075) EOSINOPHILS RELATIVE PERCENT (BEAKER) (test 1 % atdp=890) BASOPHILS RELATIVE PERCENT (BEAKER) (test 0 % ccya=903) NEUTROPHILS ABSOLUTE COUNT (BEAKER) (test 7.92 K/ L 1.78-5.38 plta=951) LYMPHOCYTES ABSOLUTE COUNT (BEAKER) (test 0.68 K/ L 1.32-3.57 iqxz=791) MONOCYTES ABSOLUTE COUNT (BEAKER) (test bkxj=908) 1.03 K/ L 0.30-0.82 EOSINOPHILS ABSOLUTE COUNT (BEAKER) (test 0.06 K/ L 0.04-0.54 qlfc=743) BASOPHILS ABSOLUTE COUNT (BEAKER) (test ooyf=847) 0.00 K/ L 0.01-0.08 IMMATURE GRANULOCYTES-RELATIVE PERCENT (BEAKER) 3 % 0-1 (test umfd=6018) [id number] 07:38:00 Test Item Value Reference Range Comments PHOSPHORUS (BEAKER) (test zhip=405) 4.3 mg/dL 2.3-4.7 Legal Instructor ID - OHRACIO [id number] 07:38:00 Test Item Value Reference Range Comments MAGNESIUM (BEAKER) (test exvv=221) 2.5 mg/dL 1.6-2.6 Legal Instructor ID Genevieve LEONARD FCOMPREHENSIVE METABOLIC [id number] 07:38:00 Test Item Value Reference Range Comments TOTAL PROTEIN (BEAKER) 5.6 gm/dL 6.0-8.3 (test rfcd=356) ALBUMIN (BEAKER) (test 2.5 g/dL 3.5-5.0 xjbg=7890) ALKALINE PHOSPHATASE 121 U/L 40-150 (BEAKER) (test fegt=998) BILIRUBIN TOTAL (BEAKER) 15.2 mg/dL 0.2-1.2 (test dtzc=896) SODIUM (BEAKER) (test 126 meq/L 136-145 zjki=757) POTASSIUM (BEAKER) (test 3.6 meq/L 3.5-5.1 ouap=352) CHLORIDE (BEAKER) (test 94 meq/L 98-107 rvsq=715) CO2 (BEAKER) (test 23 meq/L 22-29 hjje=592) BLOOD UREA NITROGEN 52 mg/dL 7-21 (BEAKER) (test kreg=949) CREATININE (BEAKER) (test 1.67 mg/dL 0.57-1.25 vpsq=158) GLUCOSE RANDOM (BEAKER) 115 mg/dL 70-105 (test nizx=110) CALCIUM (BEAKER) (test 8.3 mg/dL 8.4-10.2 pujg=261) AST (SGOT) (BEAKER) (test 69 U/L 5-34 sbfi=034) ALT (SGPT) (BEAKER) (test 38 U/L 6-55 ldep=423) EGFR (BEAKER) (test 43 mL/min/1.73 sq m ESTIMATED GFR IS NOT yktc=5594) ACCURATE CREATININE CLEARANCE IN PREDICTING GLOMERULAR FILTRATION RATE. ESTIMATED GFR IS NOT APPLICABLE FOR DIALYSIS PATIENTS. Legal Instructor BRYSON LEONARD FSpecimen markedly ictericHEPATIC FUNCTION [id number] 07:38:00 Test Item Value Reference Range Comments TOTAL PROTEIN (BEAKER) (test jdwg=478) 5.6 gm/dL 6.0-8.3 ALBUMIN (BEAKER) (test xupq=8875) 2.5 g/dL 3.5-5.0 BILIRUBIN TOTAL (BEAKER) (test euwv=406) 15.2 mg/dL 0.2-1.2 BILIRUBIN DIRECT (BEAKER) (test ofij=970) 7.7 mg/dL 0.1-0.5 ALKALINE PHOSPHATASE (BEAKER) (test fjxk=627) 121 U/L 40-150 AST (SGOT) (BEAKER) (test ncaq=790) 69 U/L 5-34 ALT (SGPT) (BEAKER) (test hwmx=435) 38 U/L 6-55 Legal Instructor BRYSON LEONARD FSpecimen markedly ictericCALCIUM, [id number] 07: 22:00 Test Item Value Reference Range Comments CALCIUM IONIZED (BEAKER) (test pouy=579) 1.07 mmol/L 1.12-1.27 PH, BLOOD (BEAKER) (test ycof=0726) 7.42 B-TYPE NATRIURETIC FACTOR (BNP)2019-06-14 07:13:00 Test Item Value Reference Range Comments B-TYPE NATRIURETIC PEPTIDE (BEAKER) (test 838 pg/mL 0-100 newn=175) Legal Instructor BRYSON LEONARD FPROTHROMBIN TIME/[id number] 06:52:00 Test Item Value Reference Range Comments PROTIME (BEAKER) (test vhtc=953) 29.5 seconds 11.9-14.2 INR (BEAKER) (test chbe=468) 2.9 <=5.9 Effective 09/16/2018: PT Reference Range ChangeNew: 11.9-14.2 Previous: 11.7- 14.7RECOMMENDED COUMADIN/WARFARIN INR THERAPY RANGESSTANDARD DOSE: 2.0-3.0 Includes: PROPHYLAXIS for venous thrombosis, systemic embolization; TREATMENT for venous thrombosis and/or pulmonary embolus.HIGH RISK: Target INR is2.5-3.5 for patients wiht mechanical heart valves.[id number] 23:23:00 Test Item Value Reference Range Comments RPR SCREEN (BEAKER) (test cpxw=811) Nonreactive Nonreactive RESPIRATORY PANEL [id number] 23:14:00 Test Item Value Reference Range Comments HUMAN METAPNEUMOVIRUS (BEAKER) (test Not detected Not detected, Equivocal sjqg=7918) RHINOVIRUS (BEAKER) (test ueuz=7446) Not detected Not detected, Equivocal INFLUENZA A (BEAKER) (test farm=4697) Not detected Not detected, Equivocal INFLUENZA A (NO SUBTYPE) (test prkd=8612) INFLUENZA A SUBTYPE H1 (BEAKER) (test vfdo=4986) INFLUENZA A SUBTYPE H3 (BEAKER) (test cmdq=4730) INFLUENZA A SUBTYPE H1-2009 (BEAKER) (test uqgd=0656) INFLUENZA B (BEAKER) (test rpjf=3231) Not detected Not detected, Equivocal RESPIRATORY SYNCYTIAL VIRUS (BEAKER) Not detected Not detected, Equivocal (test zpyv=6921) PARAINFLUENZA VIRUS 1 (BEAKER) (test Not detected Not detected, Equivocal rnlq=7133) PARAINFLUENZA VIRUS 2 (BEAKER) (test Not detected Not detected, Equivocal txah=0489) PARAINFLUENZA VIRUS 3 (BEAKER) (test Not detected Not detected, Equivocal yeez=7891) PARAINFLUENZA VIRUS 4 (BEAKER) (test Not detected Not detected, Equivocal hzda=2535) ADENOVIRUS (BEAKER) (test vmce=2631) Not detected Not detected, Equivocal CORONAVIRUS 229E (BEAKER) (test Not detected Not detected, Equivocal nbvo=6227) CORONAVIRUS HKU1 (BEAKER) (test Not detected Not detected, Equivocal siab=3931) CORONAVIRUS NL63 (BEAKER) (test Not detected Not detected, Equivocal xwqv=0784) CORONAVIRUS OC43 (BEAKER) (test Not detected Not detected, Equivocal kksp=2961) BORDETELLA PERTUSSIS (BEAKER) (test Not detected Not detected, Equivocal fhsf=1890) CHLAMYDOPHILA PNEUMONIAE (BEAKER) (test Not detected Not detected, Equivocal gcjs=0823) MYCOPLASMA PNEUMONIAE (BEAKER) (test Not detected Not detected, Equivocal tgpp=7440) Other viruses and bacteria not targeted by this PCR panel cannot be excluded; therefore clinical correlation and follow up of serology, culture results, and other molecular studies is required. The results are not intended to be used as the sole means for clinical diagnosis or patient management decisions. This sample was tested at the [facility] Molecular Diagnostics Laboratory using the AtricaArray Respiratory Panel. It is FDA cleared and has been verified and approved by the [facility] Molecular Diagnostics Laboratory for clinical use on nasopharyngeal swab specimens.The performance of the FilmArrayRP has not been established in individuals who received influenza vaccine. Recent administration ofa nasal influenza vaccine may cause false positive results for Influenza A and/orInfluenza B.URINALYSIS W/ [id number] 21:50:00 Test Item Value Reference Range Comments COLOR (BEAKER) (test uhyn=192) Yellow CLARITY (BEAKER) (test zows=697) Clear SPECIFIC GRAVITY UA (BEAKER) (test fqpb=684) 1.011 1.001-1.035 PH UA (BEAKER) (test qrpp=267) 5.5 5.0-8.0 PROTEIN UA (BEAKER) (test jdut=029) Negative Negative GLUCOSE UA (BEAKER) (test ywpx=683) Negative Negative KETONES UA (BEAKER) (test ypvz=114) Negative Negative BILIRUBIN UA (BEAKER) (test qqpf=642) Positive Negative BLOOD UA (BEAKER) (test hzvb=179) Negative Negative NITRITE UA (BEAKER) (test svny=046) Negative Negative LEUKOCYTE ESTERASE UA (BEAKER) (test yklf=610) Negative Negative UROBILINOGEN UA (BEAKER) (test jzia=773) 0.2 mg/dL 0.2-1.0 RBC UA (BEAKER) (test hvxk=356) 0 /HPF WBC UA (BEAKER) (test kxmi=596) 1 /HPF SQUAMOUS EPITHELIAL (BEAKER) (test cxps=075) 1 /HPF HYALINE CASTS (BEAKER) (test nouy=449) 6 /LPF SOURCE(BEAKER) (test lrrr=6240) Legal Instructor ID - [auto]Legal Instructor ID - techSODIUM, RANDOM [id number] 21:34:00 Test Item Value Reference Range Comments SODIUM URINE (BEAKER) (test btdv=240) < meq/L Reference Range: No NormalsOperator ID - KENNCREATININE, RANDOM [id number] 21:25:00 Test Item Value Reference Range Comments CREATININE URINE (BEAKER) (test ycfv=269) 88.1 mg/dL Reference Range: No NormalsOperator ID - KENNPROTEIN, RANDOM [id number] 21: 25:00 Test Item Value Reference Range Comments PROTEIN, URINE (BEAKER) (test xyfs=1870) 14 mg/dL 0-14 Legal Instructor ID - KENNBLOOD [id number] 10:35:00 Test Item Value Reference Range Comments CULTURE (BEAKER) (test ESCHERICHIA COLI From Aerobic Bottle naab=9591) Only Escherichia coliESBL Positive Amikacin (test code=1) Ampicillin + Sulbactam (test code=6) Aztreonam (test code=32) Cefepime (test code=51) Cefoxitin (test code=68) Ceftazidime (test code=27) Ceftriaxone (test code=52) Ertapenem (test code=38) Gentamicin (test code=18) Levofloxacin (test code=22) Meropenem (test code=34) Nitrofurantoin (test code=23) Piperacillin + Tazobactam (test code=29) Tetracycline (test code=2) Tobramycin (test code=25) Trimethoprim + Sulfamethoxazole (test code=47) GRAM STAIN RESULT (BEAKER) From aerobic bottle (test igaw=1782) only: gram negative rods HEMOGLOBIN AND [id number] 08:47:00 Test Item Value Reference Range Comments HEMOGLOBIN (BEAKER) (test snyw=206) 6.9 GM/DL 13.7-17.5 HEMATOCRIT (BEAKER) (test hckj=513) 20.2 % 40.1-51.0 Legal Instructor ID - 6000CBC W/PLT COUNT & AUTO [id number] 07:36:00 Test Item Value Reference Range Comments WHITE BLOOD CELL COUNT (BEAKER) (test ibhe=854) 10.6 K/ L 3.5-10.5 RED BLOOD CELL COUNT (BEAKER) (test tvhe=062) 1.72 M/ L 4.63-6.08 HEMOGLOBIN (BEAKER) (test bvjz=646) 6.4 GM/DL 13.7-17.5 HEMATOCRIT (BEAKER) (test ptle=984) 18.5 % 40.1-51.0 MEAN CORPUSCULAR VOLUME (BEAKER) (test xkoi=583) 107.6 fL 79.0-92.2 MEAN CORPUSCULAR HEMOGLOBIN (BEAKER) (test 37.2 pg 25.7-32.2 hurs=965) MEAN CORPUSCULAR HEMOGLOBIN CONC (BEAKER) (test 34.6 GM/DL 32.3-36.5 mekm=088) RED CELL DISTRIBUTION WIDTH (BEAKER) (test 23.1 % 11.6-14.4 jsbz=357) PLATELET COUNT (BEAKER) (test qmqo=706) 38 K/CU MM 150-450 MEAN PLATELET VOLUME (BEAKER) (test nkwz=506) 10.0 fL 9.4-12.4 NUCLEATED RED BLOOD CELLS (BEAKER) (test 0 /100 WBC 0-0 fmyn=276) NEUTROPHILS RELATIVE PERCENT (BEAKER) (test 82 % whkc=977) LYMPHOCYTES RELATIVE PERCENT (BEAKER) (test 5 % pmfe=209) MONOCYTES RELATIVE PERCENT (BEAKER) (test 8 % idzw=389) EOSINOPHILS RELATIVE PERCENT (BEAKER) (test 0 % lkqk=112) BASOPHILS RELATIVE PERCENT (BEAKER) (test 0 % diqr=196) NEUTROPHILS ABSOLUTE COUNT (BEAKER) (test 8.69 K/ L 1.78-5.38 tunr=573) LYMPHOCYTES ABSOLUTE COUNT (BEAKER) (test 0.56 K/ L 1.32-3.57 iwdl=527) MONOCYTES ABSOLUTE COUNT (BEAKER) (test lewl=429) 0.88 K/ L 0.30-0.82 EOSINOPHILS ABSOLUTE COUNT (BEAKER) (test 0.01 K/ L 0.04-0.54 wyci=993) BASOPHILS ABSOLUTE COUNT (BEAKER) (test dzkh=537) 0.01 K/ L 0.01-0.08 IMMATURE GRANULOCYTES-RELATIVE PERCENT (BEAKER) 4 % 0-1 (test idvj=1160) [id number] 07:25:00 Test Item Value Reference Range Comments PHOSPHORUS (BEAKER) (test wiwl=405) 4.3 mg/dL 2.3-4.7 Legal Instructor ID - HORACIO [id number] 07:25:00 Test Item Value Reference Range Comments MAGNESIUM (BEAKER) (test ksug=967) 2.5 mg/dL 1.6-2.6 Legal Instructor ID - HORACIO FCOMPREHENSIVE METABOLIC [id number] 07:25:00 Test Item Value Reference Range Comments TOTAL PROTEIN (BEAKER) 5.5 gm/dL 6.0-8.3 (test jnek=483) ALBUMIN (BEAKER) (test 2.5 g/dL 3.5-5.0 mblv=3978) ALKALINE PHOSPHATASE 128 U/L 40-150 (BEAKER) (test dxmb=460) BILIRUBIN TOTAL (BEAKER) 14.1 mg/dL 0.2-1.2 (test vddl=858) SODIUM (BEAKER) (test 125 meq/L 136-145 zfzx=454) POTASSIUM (BEAKER) (test 3.9 meq/L 3.5-5.1 mmop=217) CHLORIDE (BEAKER) (test 93 meq/L 98-107 nphq=803) CO2 (BEAKER) (test 25 meq/L 22-29 qyiv=945) BLOOD UREA NITROGEN 48 mg/dL 7-21 (BEAKER) (test tmrg=774) CREATININE (BEAKER) (test 1.56 mg/dL 0.57-1.25 xzjh=970) GLUCOSE RANDOM (BEAKER) 124 mg/dL 70-105 (test omdy=560) CALCIUM (BEAKER) (test 8.2 mg/dL 8.4-10.2 yfvj=713) AST (SGOT) (BEAKER) (test 58 U/L 5-34 dfno=875) ALT (SGPT) (BEAKER) (test 31 U/L 6-55 gcld=152) EGFR (BEAKER) (test 47 mL/min/1.73 sq m ESTIMATED GFR IS NOT lpox=8245) ACCURATE CREATININE CLEARANCE IN PREDICTING GLOMERULAR FILTRATION RATE. ESTIMATED GFR IS NOT APPLICABLE FOR DIALYSIS PATIENTS. Legal Instructor ID Genevieve TORREZpecimen markedly ictericHEPATIC FUNCTION [id number] 07:25:00 Test Item Value Reference Range Comments TOTAL PROTEIN (BEAKER) (test mirg=170) 5.5 gm/dL 6.0-8.3 ALBUMIN (BEAKER) (test mjbj=1424) 2.5 g/dL 3.5-5.0 BILIRUBIN TOTAL (BEAKER) (test ujwi=286) 14.1 mg/dL 0.2-1.2 BILIRUBIN DIRECT (BEAKER) (test vqez=339) 7.5 mg/dL 0.1-0.5 ALKALINE PHOSPHATASE (BEAKER) (test nqmg=574) 128 U/L 40-150 AST (SGOT) (BEAKER) (test lxoy=237) 58 U/L 5-34 ALT (SGPT) (BEAKER) (test zepv=677) 31 U/L 6-55 Legal Instructor ID Genevieve TORREZpecimen markedly ictericCALCIUM, [id number] 06: 42:00 Test Item Value Reference Range Comments CALCIUM IONIZED (BEAKER) (test vkjw=327) 1.10 mmol/L 1.12-1.27 PH, BLOOD (BEAKER) (test dmfq=1068) 7.45 BASIC METABOLIC [id number] 14:00:00 Test Item Value Reference Range Comments SODIUM (BEAKER) (test 126 meq/L 136-145 icbm=670) POTASSIUM (BEAKER) (test 4.2 meq/L 3.5-5.1 Specimen slightly ifxq=516) hemolyzed CHLORIDE (BEAKER) (test 96 meq/L 98-107 wzep=496) CO2 (BEAKER) (test 17 meq/L 22-29 ftvr=361) BLOOD UREA NITROGEN 45 mg/dL 7-21 (BEAKER) (test ijjk=248) CREATININE (BEAKER) (test 1.52 mg/dL 0.57-1.25 Specimen slightly ljlp=038) hemolyzed GLUCOSE RANDOM (BEAKER) 132 mg/dL 70-105 (test fjjp=916) CALCIUM (BEAKER) (test 8.1 mg/dL 8.4-10.2 cytx=556) EGFR (BEAKER) (test 48 mL/min/1.73 sq m ESTIMATED GFR IS NOT bmeg=8101) ACCURATE CREATININE CLEARANCE IN PREDICTING GLOMERULAR FILTRATION RATE. ESTIMATED GFR IS NOT APPLICABLE FOR DIALYSIS PATIENTS. Legal Instructor ID - HORACIO FSpecimen markedly ictericHEMOGLOBIN [id number] 12:57: 00 Test Item Value Reference Range Comments HEMOGLOBIN A1C (BEAKER) (test nouf=497) < % 4.3-6.1 HEPATIC FUNCTION [id number] 07:01:00 Test Item Value Reference Range Comments TOTAL PROTEIN (BEAKER) (test txrq=688) 5.9 gm/dL 6.0-8.3 ALBUMIN (BEAKER) (test figu=2288) 2.6 g/dL 3.5-5.0 BILIRUBIN TOTAL (BEAKER) (test gojt=162) 16.6 mg/dL 0.2-1.2 BILIRUBIN DIRECT (BEAKER) (test ndrv=788) 8.7 mg/dL 0.1-0.5 ALKALINE PHOSPHATASE (BEAKER) (test gihj=848) 141 U/L 40-150 AST (SGOT) (BEAKER) (test azps=934) 52 U/L 5-34 ALT (SGPT) (BEAKER) (test echh=562) 26 U/L 6-55 Legal Instructor ID - LILY MSpecimestephanie markedly ictericBLOOD GAS, [id number] 06:23 :00 Test Item Value Reference Range Comments PH ARTERIAL (BEAKER) (test wvwb=285) 7.49 7.35-7.45 PCO2 ARTERIAL (BEAKER) (test mese=798) 33 mmHg 35-45 PO2 ARTERIAL (BEAKER) (test bnbj=393) 75 mmHg 80-90 O2 SATURATION ARTERIAL (BEAKER) (test xqql=329) 96.6 % 96.0-97.0 HCO3 ARTERIAL (BEAKER) (test bmzn=317) 25 mmol/L 21-29 BASE EXCESS ARTERIAL (BEAKER) (test spgj=380) 1.4 mmol/L -2.0-3.0 PATIENT TEMPERATURE (BEAKER) (test iflx=3938) 36.2 C FIO2 (BEAKER) (test oroi=7226) 21.0 % LIPID [id number] 23:41:00 Test Item Value Reference Range Comments TRIGLYCERIDES (BEAKER) (test soya=520) 58 mg/dL CHOLESTEROL (BEAKER) (test pbhw=529) 31 mg/dL HDL CHOLESTEROL (BEAKER) (test bjkm=989) < mg/dL LDL CHOLESTEROL CALCULATED (BEAKER) > mg/dL Unable to calculate (test rhsb=342) Triglyceride Reference Range: Low Risk <150 Borderline 150- 199 High Risk 200-499 Very High Risk >=500Cholesterol Reference Range: Low Risk <200 Borderline 200-239 High Risk > 240HDL Cholesterol Reference Range: Low Risk >=60 High Risk <40LDL Cholesterol Reference Range: Optimal <100 Near Optimal 100-129 Borderline 130-159 High 160-189 Very High >=190 Legal Instructor ID - BSSpecimen markedly [id number] 23: 39:00 Test Item Value Reference Range Comments MAGNESIUM (BEAKER) (test ryno=767) 2.5 mg/dL 1.6-2.6 Legal Instructor ID - [id number] 23:39:00 Test Item Value Reference Range Comments PHOSPHORUS (BEAKER) (test dzgz=539) 4.1 mg/dL 2.3-4.7 Legal Instructor ID - BSURIC [id number] 23:39:00 Test Item Value Reference Range Comments URIC ACID (BEAKER) (test iylq=535) 5.9 mg/dL 2.6-7.2 Legal Instructor ID - BSSpecimen markedly ictericGAMMA GLUTAMYL TRANSFERASE (GGT)2019-05 23:39:00 Test Item Value Reference Range Comments GAMMA GLUTAMYL TRANSFERASE (BEAKER) (test gkwd=125) 18 U/L 9-64 Legal Instructor ID - BSSpecimen markedly ictericCALCIUM, [id number] 23:17:00 Test Item Value Reference Range Comments CALCIUM IONIZED (BEAKER) (test sihz=869) 1.17 mmol/L 1.12-1.27 PH, BLOOD (BEAKER) (test ycns=1277) 7.38 [id number] 23:11:00 Test Item Value Reference Range Comments T4 TOTAL (BEAKER) (test isjx=432) 2.5 ug/dL 4.9-11.7 Legal Instructor ID - [id number] 22:03:00 Test Item Value Reference Range Comments FERRITIN (BEAKER) (test mkcg=270) 511 ng/mL 5-275 Legal Instructor ID - DBALPHA FETOPROTEIN (AFP), TUMOR [id number] 21:26:00 Test Item Value Reference Range Comments ALPHA-FETOPROTEIN (BEAKER) (test eupc=3333) < ng/mL <10.0 Legal Instructor ID - BSCARCINOEMBRYONIC ANTIGEN (CEA)2019-06-11 21:22:00 Test Item Value Reference Range Comments CARCINOEMBRYONIC ANTIGEN (BEAKER) (test prni=782) 18.2 ng/mL 0.0-5.0 Legal Instructor ID - BSHEPATITIS B CORE ANTIBODY, [id number] 21:22:00 Test Item Value Reference Range Comments HEPATITIS B CORE IGM ANTIBODY (BEAKER) (test Nonreactive Nonreactive qmes=965) Legal Instructor ID - BSHEPATITIS A ANTIBODY, [id number] 21:22:00 Test Item Value Reference Range Comments HEPATITIS A IGM ANTIBODY (BEAKER) (test Nonreactive Nonreactive ptvr=477) Legal Instructor ID - BSHEPATITIS B SURFACE [id number] 21:22:00 Test Item Value Reference Range Comments HEPATITIS B SURFACE ANTIBODY (BEAKER) (test < mIU/mL <8.0 rpiu=103) Legal Instructor ID - [id number] 21:22:00 Test Item Value Reference Range Comments THYROID STIMULATING HORMONE (BEAKER) (test 0.23 uIU/mL 0.35-4.94 ilud=459) Legal Instructor ID - [id number] 21:22:00 Test Item Value Reference Range Comments PROSTATE SPECIFIC ANTIGEN (BEAKER) (test oens=795) 0.0 ng/mL 0.0-4.0 Legal Instructor ID - BSHEPATITIS B SURFACE [id number] 21:19:00 Test Item Value Reference Range Comments HEPATITIS B SURFACE ANTIGEN (2) (BEAKER) (test Nonreactive Nonreactive mnpw=4073) Legal Instructor ID - BSHEPATITIS C [id number] 21:19:00 Test Item Value Reference Range Comments HEPATITIS C ANTIBODY (BEAKER) (test cbst=496) Nonreactive Nonreactive Legal Instructor ID - BSHEPATITIS B CORE ANTIBODY, [id number] 21:19:00 Test Item Value Reference Range Comments HEPATITIS B CORE TOTAL ANTIBODY (BEAKER) (test Nonreactive Nonreactive kphy=948) Legal Instructor ID - BSHIV-1 ANTIGEN WITH HIV-1/2 [id number] 21:19:00 Test Item Value Reference Range Comments HIV-1 ANTIGEN WITH HIV 1\T\2 ANTIBODY (2) Nonreactive Nonreactive (BEAKER) (test mfbu=2905) Legal Instructor ID - BSVITAMIN D, [id number] 21:16:00 Test Item Value Reference Range Comments VITAMIN D 25-OH (BEAKER) (test bnkh=9554) 10.0 ng/mL 6.6-49.9 Effective 01/29/2017: Reference Range ChangeNew: 6.6-49.9 ng/mL Previous: 13.0 -47.8 ng/mLRecommended Vitamin D Target Range: 30.0-40.0 ng/mLOperator ID - [id number]-3-[id number] 21:09:00 Test Item Value Reference Range Comments ALPHA-1 ANTITRYPSIN (BEAKER) (test djrt=737) 112.60 mg/dL 90.00-200.00 Legal Instructor ID - [id number] 21:00:00 Test Item Value Reference Range Comments FIBRINOGEN LEVEL (BEAKER) (test tdri=305) 143 mg/dl 225-434 [id number] 20:54:00 Test Item Value Reference Range Comments TRANSFERRIN (BEAKER) (test eila=234) 99 mg/dL 174-382 Legal Instructor ID - BSSpecimen markedly ictericIRON, TIBC, % SAT. (WITHOUT FERRITIN) 2019-06-11 20:54:00 Test Item Value Reference Range Comments IRON (BEAKER) (test gbol=595) 102.0 ug/dL 40.0-160.0 TOTAL IRON BINDING CAPACITY (BEAKER) (test 125 ug/dL 250-450 ojvc=378) IRON % SATURATION (2) (BEAKER) (test aril=9274) 82 % 20-55 Legal Instructor ID - [id number] 20:52:00 Test Item Value Reference Range Comments ETHANOL (BEAKER) (test cjzw=376) < mg/dL <=10 Legal Instructor ID - [id number] 20:44:00 Test Item Value Reference Range Comments PARTIAL THROMBOPLASTIN TIME (BEAKER) (test 51.3 seconds 22.5-36.0 wjho=636) PROTHROMBIN [id number] 20:43:00 Test Item Value Reference Range Comments PROTIME (BEAKER) (test imyf=920) 28.2 seconds 11.9-14.2 INR (BEAKER) (test kxkm=823) 2.7 <=5.9 Effective 09/16/2018: PT Reference Range ChangeNew: 11.9-14.2 Previous: 11.7- 14.7RECOMMENDED COUMADIN/WARFARIN INR THERAPY RANGESSTANDARD DOSE: 2.0-3.0 Includes: PROPHYLAXIS for venous thrombosis, systemic embolization; TREATMENT for venous thrombosis and/or pulmonary embolus.HIGH RISK: Target INR is2.5-3.5 for patients wiht mechanical heart valves.HEMOGLOBIN AND [id number] 16 :04:00 Test Item Value Reference Range Comments HEMOGLOBIN (BEAKER) (test sugg=518) 7.2 GM/DL 13.7-17.5 HEMATOCRIT (BEAKER) (test dzfq=419) 21.2 % 40.1-51.0 Legal Instructor ID - [id number] 15:40:00 Test Item Value Reference Range Comments CULTURE (BEAKER) From Aerobic And Anaerobic (test zdja=9179) Bottles Same organism has been isolated from cultures(s) of the same body site and collection date. Repeat identification and susceptibility testing performed only after consultation with the clinical microbiology laboratory.Refer to previous culture ofEscherichia coliESBL Positive GRAM STAIN RESULT From aerobic and (BEAKER) (test anaerobic bottles: wlmv=7689) gram negative rods BLOOD CULTURE IDENTIFICATION [id number] 15:37:00 Test Item Value Reference Range Comments LISTERIA MONOCYTOGENES (test Not detected Not detected ooui=[id number]) STAPHYLOCOCCUS (test Not detected Not detected jbbr=3819268) STAPHYLOCOCCUS AUREUS (test Not detected Not detected aurz=1937305) STREPTOCOCCUS (test bsek=0955297) Not detected Not detected STREPTOCOCCUS AGALACTIAE (GROUP Not detected Not detected B) (test hnzb=6370482) STREPTOCOCCUS PNEUMONIAE (test Not detected Not detected gflz=4153830) STREPTOCOCCUS PYOGENES (GROUP A) Not detected Not detected (test srdh=2258759) ACINETOBACTER BAUMANNII (test Not detected Not detected psdw=3254863) HAEMOPHILUS INFLUENZAE (test Not detected Not detected ogrz=7683040) NEISSERIA MENINGITIDIS (test Not detected Not detected zdyw=3032747) ENTEROBACTERIACEAE (test Please refer to culture cfcw=8207028) results for ID and susceptibilities.. This is a corrected result. Previous result was Detected on 06/09/2019 at 0114 TESTER OPERATOR ENTEROBACTER CLOACOE COMPLEX Not detected Not detected (test bald=9231930) KLEBSIELLA OXYTOCA (test Not detected Not detected bigy=0174639) KLEBSIELLA PNEUMONIAE (test Not detected Not detected jtuo=6511) PROTEUS (test faud=4524138) Not detected Not detected SERRATIA MARCESCENS (test Not detected Not detected rste=6513312) ELSA ALBICANS (test Not detected Not detected lcyl=3860858) ELSA GLABRATA (test Not detected Not detected wfcv=7747538) ELSA KRUSEI (test Not detected Not detected suvy=5475302) ELSA PARAPSILOSIS (test Not detected Not detected gjqq=1326587) ELSA TROPICALIS (test Not detected Not detected vxhs=7458961) ESCHERICHIA COLI (test Please refer to culture bols=2785121) results for ID and susceptibilities.. This is a corrected result. Previous result was Detected on 06/09/2019 at 0114 TESTER OPERATOR METHICILLIN-RESISTANCE GENE (test zslg=7348741) VANCOMYCIN-RESISTANCE GENE (test xdfp=0993255) CARBAPENEM-RESISTANCE GENE (test Please refer to culture hjsv=3960571) results for ID and susceptibilities.. This is a corrected result. Previous result was Not detected on 06/09/2019 at 0114 TESTER OPERATOR ENTEROCOCCUS-BEAKER (test Not detected Not detected umdz=[id number]) PSEUDOMONAS AERUGINOSA-BEAKER Not detected Not detected (test cvkl=8165302) Other bacteria and resistance markers not targeted by this PCR panel cannot be excluded; therefore clinical correlation and follow up of serology, culture results, and other molecular studies is required. The results are not intended to be used as the sole means for clinical diagnosis or patient management decisions. This sample was tested at the [facility] using the [employer] Blood Culture ID Panel. It is FDA cleared and has been verified and approved by the [facility] for clinical use. This laboratory is CLIA-certified and College ofAmerican Pathologists (CAP)-accredited to perform high complexity testing.RAD, CHEST, 1 VIEW, NON [id number] 13:57:00Reason for exam:->feverShould this be performed at the bedside?->YesFINAL REPORT TECHNIQUE : Frontal chest radiographs dated 06/11/2019. CLINICAL HISTORY: Fever COMPARISON STUDY: Chest radiograph dated 06/09/2019 IMPRESSION:Blunting of the left costophrenic angle is due to either trace effusion and/or scarring. No focal consolidation. No pleural effusion. Cardiomediastinal silhouette is normal in size. No pulmonary edema. No fracture. Signed: Trudy Camacho MDReport Verified Date/Time: 06/11/2019 13:57:24 Reading Location: [address] Radiology Reading Room BASIC METABOLIC [id number] 05:15:00 Test Item Value Reference Range Comments SODIUM (BEAKER) (test 124 meq/L 136-145 gypn=054) POTASSIUM (BEAKER) (test 4.2 meq/L 3.5-5.1 waxo=551) CHLORIDE (BEAKER) (test 94 meq/L 98-107 buqx=132) CO2 (BEAKER) (test 24 meq/L 22-29 kket=624) BLOOD UREA NITROGEN 34 mg/dL 7-21 (BEAKER) (test vfcb=564) CREATININE (BEAKER) (test 1.40 mg/dL 0.57-1.25 lyul=002) GLUCOSE RANDOM (BEAKER) 118 mg/dL 70-105 (test lael=575) CALCIUM (BEAKER) (test 7.9 mg/dL 8.4-10.2 gytl=904) EGFR (BEAKER) (test 53 mL/min/1.73 sq m ESTIMATED GFR IS NOT ijqv=1002) ACCURATE CREATININE CLEARANCE IN PREDICTING GLOMERULAR FILTRATION RATE. ESTIMATED GFR IS NOT APPLICABLE FOR DIALYSIS PATIENTS. Legal Instructor ID - LILY MSpecimen markedly ictericHEPATIC FUNCTION [id number] 04 :59:00 Test Item Value Reference Range Comments TOTAL PROTEIN (BEAKER) (test fdon=529) 5.3 gm/dL 6.0-8.3 ALBUMIN (BEAKER) (test pgug=3340) 2.3 g/dL 3.5-5.0 BILIRUBIN TOTAL (BEAKER) (test gimx=680) 16.5 mg/dL 0.2-1.2 BILIRUBIN DIRECT (BEAKER) (test ycsd=831) 8.9 mg/dL 0.1-0.5 ALKALINE PHOSPHATASE (BEAKER) (test duhv=557) 118 U/L 40-150 AST (SGOT) (BEAKER) (test bppo=774) 53 U/L 5-34 ALT (SGPT) (BEAKER) (test sicb=668) 26 U/L 6-55 Legal Instructor ID - LILY MSpecimen markedly ictericCBC W/PLT COUNT & AUTO [id number] 04:39:00 Test Item Value Reference Range Comments WHITE BLOOD CELL COUNT (BEAKER) (test psuh=149) 8.2 K/ L 3.5-10.5 RED BLOOD CELL COUNT (BEAKER) (test gvht=842) 1.80 M/ L 4.63-6.08 HEMOGLOBIN (BEAKER) (test lrfh=489) 6.7 GM/DL 13.7-17.5 HEMATOCRIT (BEAKER) (test ayic=665) 18.7 % 40.1-51.0 MEAN CORPUSCULAR VOLUME (BEAKER) (test gcbk=195) 103.9 fL 79.0-92.2 MEAN CORPUSCULAR HEMOGLOBIN (BEAKER) (test 37.2 pg 25.7-32.2 zxsz=546) MEAN CORPUSCULAR HEMOGLOBIN CONC (BEAKER) (test 35.8 GM/DL 32.3-36.5 fmcg=774) RED CELL DISTRIBUTION WIDTH (BEAKER) (test 22.3 % 11.6-14.4 jrji=011) PLATELET COUNT (BEAKER) (test ezxs=086) 29 K/CU MM 150-450 MEAN PLATELET VOLUME (BEAKER) (test tjdh=341) 9.9 fL 9.4-12.4 NUCLEATED RED BLOOD CELLS (BEAKER) (test 0 /100 WBC 0-0 ssdk=178) NEUTROPHILS RELATIVE PERCENT (BEAKER) (test 87 % sefa=734) LYMPHOCYTES RELATIVE PERCENT (BEAKER) (test 5 % bnuo=932) MONOCYTES RELATIVE PERCENT (BEAKER) (test 3 % byyu=558) EOSINOPHILS RELATIVE PERCENT (BEAKER) (test 0 % kgtm=804) BASOPHILS RELATIVE PERCENT (BEAKER) (test 0 % djpv=319) NEUTROPHILS ABSOLUTE COUNT (BEAKER) (test 7.10 K/ L 1.78-5.38 bisl=800) LYMPHOCYTES ABSOLUTE COUNT (BEAKER) (test 0.42 K/ L 1.32-3.57 ngwm=244) MONOCYTES ABSOLUTE COUNT (BEAKER) (test dyyn=491) 0.27 K/ L 0.30-0.82 EOSINOPHILS ABSOLUTE COUNT (BEAKER) (test 0.02 K/ L 0.04-0.54 bktj=074) BASOPHILS ABSOLUTE COUNT (BEAKER) (test vhsc=162) 0.01 K/ L 0.01-0.08 IMMATURE GRANULOCYTES-RELATIVE PERCENT (BEAKER) 4 % 0-1 (test jxdp=1625) BODY FLUID CELL COUNT WITH [id number] 20:47:00 Test Item Value Reference Range Comments APPEARANCE FLUID (BEAKER) (test psth=564) Cloudy Clear COLOR FLUID (BEAKER) (test qvjz=842) Yellow Colorless, Straw RBC FLUID (BEAKER) (test ouza=819) 8000 /cu mm <=1 ADJUSTED WBC FLUID (BEAKER) (test qgpa=4799) 252 /cu mm <=5 LINING CELLS (BEAKER) (test kdki=8654) 3 /cu mm <=1 NEUTROPHILS FLUID (BEAKER) (test kgjm=5529) 30 % LYMPHS FLUID (BEAKER) (test ndfb=352) 41 % MONO/MACROPHAGE FLUID (BEAKER) (test fltb=903) 28 % EOSINOPHILS FLUID (BEAKER) (test afdj=453) 0 % BASO FLUID (BEAKER) (test lndv=944) 1 % CONTAINER BODY FLUID (BEAKER) (test qobh=0139) Sterile Vial URINALYSIS W/ REFLEX URINE [id number] 19:00:00 Test Item Value Reference Range Comments COLOR (BEAKER) (test hgbs=781) Dark Yellow CLARITY (BEAKER) (test pvgi=587) Clear SPECIFIC GRAVITY UA (BEAKER) (test svma=919) 1.009 1.001-1.035 PH UA (BEAKER) (test ldix=103) 5.0 5.0-8.0 PROTEIN UA (BEAKER) (test tzva=402) Negative Negative GLUCOSE UA (BEAKER) (test kvvy=116) Negative Negative KETONES UA (BEAKER) (test vkjd=282) Negative Negative BILIRUBIN UA (BEAKER) (test rkvg=814) Positive Negative BLOOD UA (BEAKER) (test jhje=825) Negative Negative NITRITE UA (BEAKER) (test ossw=327) Negative Negative LEUKOCYTE ESTERASE UA (BEAKER) (test stld=149) Negative Negative UROBILINOGEN UA (BEAKER) (test mtmt=853) 0.2 mg/dL 0.2-1.0 RBC UA (BEAKER) (test yvtu=445) 0 /HPF WBC UA (BEAKER) (test hhva=973) 1 /HPF SQUAMOUS EPITHELIAL (BEAKER) (test qkms=856) < /HPF SOURCE(BEAKER) (test luhb=5129) Legal Instructor ID - [auto]Legal Instructor ID - hankLACTIC ACID, [id number] 17:09:00 Test Item Value Reference Range Comments LACTATE BLOOD VENOUS (2) (BEAKER) (test 1.1 mmol/L 0.5-2.2 epnn=8429) Legal Instructor ID - BSSpecimen markedly ictericSODIUM, RANDOM [id number] 13:34:00 Test Item Value Reference Range Comments SODIUM URINE (BEAKER) (test yyfq=616) < meq/L Reference Range: No NormalsOperator ID - ADMINCREATININE, RANDOM [id number] 13:24:00 Test Item Value Reference Range Comments CREATININE URINE (BEAKER) (test mtan=213) 93.1 mg/dL Reference Range: No NormalsOperator ID - ADMINCALCIUM, [id number] 05:23: 00 Test Item Value Reference Range Comments CALCIUM IONIZED (BEAKER) (test axei=720) 1.04 mmol/L 1.12-1.27 PH, BLOOD (BEAKER) (test vfrt=3089) 7.38 HEPATIC FUNCTION [id number] 05:04:00 Test Item Value Reference Range Comments TOTAL PROTEIN (BEAKER) (test ydhs=169) 5.3 gm/dL 6.0-8.3 ALBUMIN (BEAKER) (test abrb=1231) 1.8 g/dL 3.5-5.0 BILIRUBIN TOTAL (BEAKER) (test pfnp=495) 18.9 mg/dL 0.2-1.2 BILIRUBIN DIRECT (BEAKER) (test kinc=957) 10.8 mg/dL 0.1-0.5 ALKALINE PHOSPHATASE (BEAKER) (test pfuw=301) 144 U/L 40-150 AST (SGOT) (BEAKER) (test lufc=008) 69 U/L 5-34 ALT (SGPT) (BEAKER) (test tpgd=947) 31 U/L 6-55 Legal Instructor ID - CHRISSIE LSpecimen markedly ictericBASIC METABOLIC [id number] 05 :04:00 Test Item Value Reference Range Comments SODIUM (BEAKER) (test 123 meq/L 136-145 foib=812) POTASSIUM (BEAKER) (test 4.0 meq/L 3.5-5.1 cfhk=747) CHLORIDE (BEAKER) (test 91 meq/L 98-107 ztlw=089) CO2 (BEAKER) (test 26 meq/L 22-29 wobu=378) BLOOD UREA NITROGEN 34 mg/dL 7-21 (BEAKER) (test axkg=094) CREATININE (BEAKER) (test 1.77 mg/dL 0.57-1.25 hqic=683) GLUCOSE RANDOM (BEAKER) 83 mg/dL 70-105 (test uytg=588) CALCIUM (BEAKER) (test 7.7 mg/dL 8.4-10.2 mqak=860) EGFR (BEAKER) (test 40 mL/min/1.73 sq m ESTIMATED GFR IS NOT fpuq=6507) ACCURATE CREATININE CLEARANCE IN PREDICTING GLOMERULAR FILTRATION RATE. ESTIMATED GFR IS NOT APPLICABLE FOR DIALYSIS PATIENTS. Legal Instructor ID - CHRISSIE BARRONpecimen markedly [id number] 05:03:00 Test Item Value Reference Range Comments PHOSPHORUS (BEAKER) (test cnvk=081) 4.1 mg/dL 2.3-4.7 Legal Instructor ID - RICHYANISA [id number] 05:03:00 Test Item Value Reference Range Comments MAGNESIUM (BEAKER) (test ufdz=128) 2.1 mg/dL 1.6-2.6 Legal Instructor ID - RICHYANISA LCBC W/PLT COUNT & AUTO [id number] 04:47:00 Test Item Value Reference Range Comments WHITE BLOOD CELL COUNT 10.3 K/ L 3.5-10.5 (BEAKER) (test gocp=764) RED BLOOD CELL COUNT (BEAKER) 1.95 M/ L 4.63-6.08 (test feyx=878) HEMOGLOBIN (BEAKER) (test 7.1 GM/DL 13.7-17.5 izyp=273) HEMATOCRIT (BEAKER) (test 20.7 % 40.1-51.0 eefq=150) MEAN CORPUSCULAR VOLUME 106.2 fL 79.0-92.2 Discordant MCV results (BEAKER) (test pgnx=372) compared to previous results; clinical correlation required. MEAN CORPUSCULAR HEMOGLOBIN 36.4 pg 25.7-32.2 (BEAKER) (test svwp=839) MEAN CORPUSCULAR HEMOGLOBIN 34.3 GM/DL 32.3-36.5 CONC (BEAKER) (test eczv=909) RED CELL DISTRIBUTION WIDTH 22.3 % 11.6-14.4 (BEAKER) (test cvec=829) PLATELET COUNT (BEAKER) (test 38 K/CU MM 150-450 ciiq=735) MEAN PLATELET VOLUME (BEAKER) 9.4 fL 9.4-12.4 (test yaog=909) NUCLEATED RED BLOOD CELLS 0 /100 WBC 0-0 (BEAKER) (test nwww=810) NEUTROPHILS RELATIVE PERCENT 76 % (BEAKER) (test zaku=113) LYMPHOCYTES RELATIVE PERCENT 9 % (BEAKER) (test xlhr=719) MONOCYTES RELATIVE PERCENT 7 % (BEAKER) (test vsfl=218) EOSINOPHILS RELATIVE PERCENT 4 % (BEAKER) (test tjor=958) BASOPHILS RELATIVE PERCENT 0 % (BEAKER) (test ahbd=851) NEUTROPHILS ABSOLUTE COUNT 7.76 K/ L 1.78-5.38 (BEAKER) (test azdw=228) LYMPHOCYTES ABSOLUTE COUNT 0.90 K/ L 1.32-3.57 (BEAKER) (test cwmw=370) MONOCYTES ABSOLUTE COUNT 0.67 K/ L 0.30-0.82 (BEAKER) (test turn=014) EOSINOPHILS ABSOLUTE COUNT 0.42 K/ L 0.04-0.54 (BEAKER) (test dpex=642) BASOPHILS ABSOLUTE COUNT 0.03 K/ L 0.01-0.08 (BEAKER) (test jxrw=462) IMMATURE GRANULOCYTES-RELATIVE 5 % 0-1 PERCENT (BEAKER) (test xndl=8166) PROTHROMBIN [id number] 04:32:00 Test Item Value Reference Range Comments PROTIME (BEAKER) (test gddw=450) 28.1 seconds 11.9-14.2 INR (BEAKER) (test wlmg=368) 2.7 <=5.9 Effective 09/16/2018: PT Reference Range ChangeNew: 11.9-14.2 Previous: 11.7- 14.7RECOMMENDED COUMADIN/WARFARIN INR THERAPY RANGESSTANDARD DOSE: 2.0-3.0 Includes: PROPHYLAXIS for venous thrombosis, systemic embolization; TREATMENT for venous thrombosis and/or pulmonary embolus.HIGH RISK: Target INR is2.5-3.5 for patients wiht mechanical heart valves.B-TYPE NATRIURETIC FACTOR (BNP)2019-05 23:19:00 Test Item Value Reference Range Comments B-TYPE NATRIURETIC PEPTIDE (BEAKER) (test 288 pg/mL 0-100 ncgz=130) Legal Instructor ID - GALAPBASIC METABOLIC [id number] 23:15:00 Test Item Value Reference Range Comments SODIUM (BEAKER) (test 122 meq/L 136-145 zpem=914) POTASSIUM (BEAKER) (test 4.3 meq/L 3.5-5.1 gozs=979) CHLORIDE (BEAKER) (test 90 meq/L 98-107 czuc=743) CO2 (BEAKER) (test 24 meq/L 22-29 lfiu=002) BLOOD UREA NITROGEN 30 mg/dL 7-21 (BEAKER) (test asnp=425) CREATININE (BEAKER) (test 1.63 mg/dL 0.57-1.25 xiao=502) GLUCOSE RANDOM (BEAKER) 97 mg/dL 70-105 (test dezo=915) CALCIUM (BEAKER) (test 7.7 mg/dL 8.4-10.2 vdtj=238) EGFR (BEAKER) (test 44 mL/min/1.73 sq m ESTIMATED GFR IS NOT ogpz=5420) ACCURATE CREATININE CLEARANCE IN PREDICTING GLOMERULAR FILTRATION RATE. ESTIMATED GFR IS NOT APPLICABLE FOR DIALYSIS PATIENTS. Legal Instructor ID - GALAPSpecimen markedly ictericHEMOGLOBIN AND [id number] 22:44:00 Test Item Value Reference Range Comments HEMOGLOBIN (BEAKER) (test gmyx=862) 7.3 GM/DL 13.7-17.5 HEMATOCRIT (BEAKER) (test wdgi=878) 21.9 % 40.1-51.0 Legal Instructor ID - [id number], CHEST, 1 VIEW, NON [id number] 15:56:00Reason for exam :->Fluid overloadShould this be performed at the bedside?->YesFINAL REPORT CLINICAL HISTORY: Fluid overload TECHNIQUE: 1 view of the chest. COMPARISON: 04/12/2019 IMPRESSION: Mild bilateral pulmonary hilar fullness has decreased in prominence from the prior exam. Currently, there is no significant airspace opacity or pleural fluid. Mild elevation the right hemidiaphragm is again seen. The cardiomediastinal silhouette is magnified by technique. Signed: Yan Gooden MDReport Verified Date/Time: 15:56:58 Reading Location: [facility] Radiology Reading Room PT/[id number] 14:54:00 Test Item Value Reference Range Comments PROTIME (BEAKER) (test wbaz=665) 29.7 seconds 11.9-14.2 INR (BEAKER) (test pqda=909) 2.9 <=5.9 PARTIAL THROMBOPLASTIN TIME (BEAKER) (test 62.1 seconds 22.5-36.0 idyw=195) Effective 09/16/2018: PT Reference Range ChangeNew: 11.9-14.2 Previous: 11.7- 14.7RECOMMENDED COUMADIN/WARFARIN INR THERAPY RANGESSTANDARD DOSE: 2.0-3.0 Includes: PROPHYLAXIS for venous thrombosis, systemic embolization; TREATMENT for venous thrombosis and/or pulmonary embolus.HIGH RISK: Target INR is2.5-3.5 for patients wiht mechanical heart valves.CBC W/PLT COUNT & AUTO [id number] 10:01:00 Test Item Value Reference Range Comments WHITE BLOOD CELL COUNT (BEAKER) (test dnxu=806) 9.2 K/ L 3.5-10.5 RED BLOOD CELL COUNT (BEAKER) (test twcn=788) 1.70 M/ L 4.63-6.08 HEMOGLOBIN (BEAKER) (test yaoq=364) 6.4 GM/DL 13.7-17.5 HEMATOCRIT (BEAKER) (test kdan=581) 18.8 % 40.1-51.0 MEAN CORPUSCULAR VOLUME (BEAKER) (test gsvu=160) 110.6 fL 79.0-92.2 MEAN CORPUSCULAR HEMOGLOBIN (BEAKER) (test 37.6 pg 25.7-32.2 gahx=620) MEAN CORPUSCULAR HEMOGLOBIN CONC (BEAKER) (test 34.0 GM/DL 32.3-36.5 teop=261) RED CELL DISTRIBUTION WIDTH (BEAKER) (test 18.2 % 11.6-14.4 louf=038) PLATELET COUNT (BEAKER) (test ojjr=322) 40 K/CU MM 150-450 MEAN PLATELET VOLUME (BEAKER) (test cerw=904) 9.6 fL 9.4-12.4 NUCLEATED RED BLOOD CELLS (BEAKER) (test 0 /100 WBC 0-0 bxvs=265) (CELLAVISION MANUAL DIFF)2019-06-09 10:01:00 Test Item Value Reference Range Comments NEUTROPHILS - REL (CELLAVISION)(BEAKER) (test 83 % nhyx=7310) LYMPHOCYTES - REL (CELLAVISION)(BEAKER) (test 9 % xkkh=7903) MONOCYTES - REL (CELLAVISION)(BEAKER) (test 2 % xsqb=6372) EOSINOPHILS - REL (CELLAVISION)(BEAKER) (test 4 % jomk=7401) BANDS - REL (CELLAVISION)(BEAKER) (test 2 % 0-10 oceu=0311) NEUTROPHILS - ABS (CELLAVISION)(BEAKER) (test 7.64 K/ul 1.78-5.38 eliy=2958) LYMPHOCYTES - ABS (CELLAVISION)(BEAKER) (test 0.83 K/ul 1.32-3.57 wdfv=8433) MONOCYTES - ABS (CELLAVISION)(BEAKER) (test 0.18 K/uL 0.30-0.82 bjqj=5163) EOSINOPHILS - ABS (CELLAVISION)(BEAKER) (test 0.37 K/uL 0.04-0.54 gsky=6081) BANDS - ABS (CELLAVISION)(BEAKER) (test 0.18 K/uL 0.00-0.80 mfvt=5418) TOTAL COUNTED (BEAKER) (test suda=5705) 100 MANUAL NRBC PER 100 CELLS (BEAKER) (test 2 /100 WBC 0-0 wwmo=4837) PLT MORPHOLOGY (BEAKER) (test frxg=838) Normal DOHLE BODIES (BEAKER) (test mtly=547) Present TOXIC GRANULATION (BEAKER) (test xbpj=847) Present POLYCHROMATOPHILLIC RBCS(BEAKER) (test rfoa=826) 1+ few ANISOCYTOSIS (BEAKER) (test zubw=084) 1+ few MACROCYTES (BEAKER) (test kgsb=370) 1+ few POIKILOCYTES (BEAKER) (test weai=117) 2+ moderate SCHISTOCYTES (BEAKER) (test fkdm=547) 1+ few ASHLEY CELLS (BEAKER) (test bbqe=715) 2+ moderate BASOPHILIC STIPPLING (BEAKER) (test iurp=930) Present ARTIFACT (CELLAVISION)(BEAKER) (test esvp=8028) Present PLATELET CONCENTRATION (CELLAVISION)(BEAKER) Decreased (test fjhm=8282) Legal Instructor ID - [id number] ID - Hattie Rahman comments: Slide comments:HEMOGLOBIN AND [id number] 06:53:00 Test Item Value Reference Range Comments HEMOGLOBIN (BEAKER) (test djvd=127) 6.5 GM/DL 13.7-17.5 HEMATOCRIT (BEAKER) (test rigx=506) 18.7 % 40.1-51.0 Legal Instructor ID - 6000HEPATIC FUNCTION [id number] 06:26:00 Test Item Value Reference Range Comments TOTAL PROTEIN (BEAKER) (test cpuc=404) 5.4 gm/dL 6.0-8.3 ALBUMIN (BEAKER) (test ngad=1238) 1.8 g/dL 3.5-5.0 BILIRUBIN TOTAL (BEAKER) (test dvoo=415) 19.1 mg/dL 0.2-1.2 BILIRUBIN DIRECT (BEAKER) (test jqfn=207) 10.2 mg/dL 0.1-0.5 ALKALINE PHOSPHATASE (BEAKER) (test thhf=505) 145 U/L 40-150 AST (SGOT) (BEAKER) (test ylze=858) 66 U/L 5-34 ALT (SGPT) (BEAKER) (test pjye=288) 32 U/L 6-55 Legal Instructor ID - DBSpecimen markedly ictericCOMPREHENSIVE METABOLIC [id number] 06:26:00 Test Item Value Reference Range Comments TOTAL PROTEIN (BEAKER) 5.4 gm/dL 6.0-8.3 (test aggr=232) ALBUMIN (BEAKER) (test 1.8 g/dL 3.5-5.0 msor=3723) ALKALINE PHOSPHATASE 145 U/L 40-150 (BEAKER) (test awsp=915) BILIRUBIN TOTAL (BEAKER) 19.1 mg/dL 0.2-1.2 (test umpr=331) SODIUM (BEAKER) (test 122 meq/L 136-145 ofgf=639) POTASSIUM (BEAKER) (test 4.5 meq/L 3.5-5.1 tbkp=912) CHLORIDE (BEAKER) (test 91 meq/L 98-107 kpht=862) CO2 (BEAKER) (test 26 meq/L 22-29 ltpt=645) BLOOD UREA NITROGEN 25 mg/dL 7-21 (BEAKER) (test psdd=277) CREATININE (BEAKER) (test 1.44 mg/dL 0.57-1.25 dkhy=998) GLUCOSE RANDOM (BEAKER) 65 mg/dL 70-105 (test jnpy=818) CALCIUM (BEAKER) (test 7.6 mg/dL 8.4-10.2 jmbt=573) AST (SGOT) (BEAKER) (test 66 U/L 5-34 sdos=524) ALT (SGPT) (BEAKER) (test 32 U/L 6-55 dvvh=037) EGFR (BEAKER) (test 51 mL/min/1.73 sq m ESTIMATED GFR IS NOT cvvw=3474) ACCURATE CREATININE CLEARANCE IN PREDICTING GLOMERULAR FILTRATION RATE. ESTIMATED GFR IS NOT APPLICABLE FOR DIALYSIS PATIENTS. Legal Instructor ID - DBSpecimen markedly [id number] 06:25:00 Test Item Value Reference Range Comments PHOSPHORUS (BEAKER) (test zxqt=338) 3.3 mg/dL 2.3-4.7 Legal Instructor ID - [id number] 06:25:00 Test Item Value Reference Range Comments MAGNESIUM (BEAKER) (test okpc=136) 1.9 mg/dL 1.6-2.6 Legal Instructor ID - DBCALCIUM, [id number] 05:49:00 Test Item Value Reference Range Comments CALCIUM IONIZED (BEAKER) (test ucpp=613) 1.04 mmol/L 1.12-1.27 PH, BLOOD (BEAKER) (test fetx=8372) 7.39 [id number] 05:06:00 Test Item Value Reference Range Comments PROCALCITONIN (BEAKER) (test vhki=4371) 1.48 ng/mL <0.05 SEPSIS RISK (ng/mL)Low: 0.05-0.50Intermediate: 0.51-2.00High: & gt;=2.01LACTIC ACID, [id number] 04:42:00 Test Item Value Reference Range Comments LACTATE BLOOD VENOUS (2) (BEAKER) (test 0.9 mmol/L 0.5-2.2 nkut=3657) Legal Instructor ID - DBSpecimen markedly [id number] 19:40:00 Test Item Value Reference Range Comments SODIUM (BEAKER) (test aqad=211) 121 meq/L 136-145 POTASSIUM (BEAKER) (test ybox=604) 4.9 meq/L 3.5-5.1 CHLORIDE (BEAKER) (test tzru=728) 90 meq/L 98-107 CO2 (BEAKER) (test kmbk=893) 27 meq/L 22-29 Legal Instructor ID - DBBASIC METABOLIC [id number] 16:56:00 Test Item Value Reference Range Comments SODIUM (BEAKER) (test 123 meq/L 136-145 wpxw=639) POTASSIUM (BEAKER) (test 5.2 meq/L 3.5-5.1 pdsj=037) CHLORIDE (BEAKER) (test 91 meq/L 98-107 eibz=698) CO2 (BEAKER) (test 28 meq/L 22-29 whfk=394) BLOOD UREA NITROGEN 20 mg/dL 7-21 (BEAKER) (test xjns=995) CREATININE (BEAKER) (test 1.10 mg/dL 0.57-1.25 trbh=402) GLUCOSE RANDOM (BEAKER) 102 mg/dL 70-105 (test thak=873) CALCIUM (BEAKER) (test 8.1 mg/dL 8.4-10.2 huxc=757) EGFR (BEAKER) (test 70 mL/min/1.73 sq m ESTIMATED GFR IS NOT sdcy=2622) ACCURATE CREATININE CLEARANCE IN PREDICTING GLOMERULAR FILTRATION RATE. ESTIMATED GFR IS NOT APPLICABLE FOR DIALYSIS PATIENTS. Legal Instructor ID - JU Dickens markedly ictericURINALYSIS W/ REFLEX URINE [id number] 12:11:00 Test Item Value Reference Range Comments COLOR (BEAKER) (test wgpe=275) Dark Yellow CLARITY (BEAKER) (test gvrt=773) Clear SPECIFIC GRAVITY UA (BEAKER) (test gges=388) 1.006 1.001-1.035 PH UA (BEAKER) (test axhv=278) 5.5 5.0-8.0 PROTEIN UA (BEAKER) (test guag=812) Negative Negative GLUCOSE UA (BEAKER) (test setw=783) Negative Negative KETONES UA (BEAKER) (test foqx=526) Negative Negative BILIRUBIN UA (BEAKER) (test xcug=153) Positive Negative BLOOD UA (BEAKER) (test vymb=542) Negative Negative NITRITE UA (BEAKER) (test prgn=841) Negative Negative LEUKOCYTE ESTERASE UA (BEAKER) (test yrid=797) Negative Negative UROBILINOGEN UA (BEAKER) (test kgmy=750) 0.2 mg/dL 0.2-1.0 RBC UA (BEAKER) (test twmp=987) 0 /HPF WBC UA (BEAKER) (test ulum=503) 0 /HPF BACTERIA (BEAKER) (test glre=245) Moderate YEAST (BEAKER) (test ndrx=4783) Few SOURCE(BEAKER) (test pduk=5937) Legal Instructor ID - [auto]Legal Instructor ID - techLACTIC ACID, [id number] 12:01:00 Test Item Value Reference Range Comments LACTATE BLOOD VENOUS (2) (BEAKER) (test 1.7 mmol/L 0.5-2.2 rhet=4872) Legal Instructor ID - HORACIO FBASIC METABOLIC [id number] 04:56:00 Test Item Value Reference Range Comments SODIUM (BEAKER) (test 125 meq/L 136-145 uuoh=172) POTASSIUM (BEAKER) (test 4.5 meq/L 3.5-5.1 Specimen slightly bcgy=526) hemolyzed CHLORIDE (BEAKER) (test 92 meq/L 98-107 cqto=284) CO2 (BEAKER) (test 27 meq/L 22-29 wpnk=115) BLOOD UREA NITROGEN 21 mg/dL 7-21 (BEAKER) (test nnsn=784) CREATININE (BEAKER) (test 0.91 mg/dL 0.57-1.25 Specimen slightly zgvr=798) hemolyzed GLUCOSE RANDOM (BEAKER) 107 mg/dL 70-105 (test sqlp=854) CALCIUM (BEAKER) (test 7.7 mg/dL 8.4-10.2 zlev=784) EGFR (BEAKER) (test 87 mL/min/1.73 sq m ESTIMATED GFR IS NOT yyti=9752) ACCURATE CREATININE CLEARANCE IN PREDICTING GLOMERULAR FILTRATION RATE. ESTIMATED GFR IS NOT APPLICABLE FOR DIALYSIS PATIENTS. Legal Instructor ID - LILY Deniseecimen markedly [id number] 04:43:00 Test Item Value Reference Range Comments MAGNESIUM (BEAKER) (test 1.9 mg/dL 1.6-2.6 Specimen slightly hemolyzed snqc=778) Legal Instructor ID - LILY MHEPATIC FUNCTION [id number] 04:43:00 Test Item Value Reference Range Comments TOTAL PROTEIN (BEAKER) (test 5.6 gm/dL 6.0-8.3 Specimen slightly hemolyzed wdcp=146) ALBUMIN (BEAKER) (test 2.0 g/dL 3.5-5.0 Specimen slightly hemolyzed wkvd=9801) BILIRUBIN TOTAL (BEAKER) (test 18.3 mg/dL 0.2-1.2 Specimen slightly hemolyzed hjpg=858) BILIRUBIN DIRECT (BEAKER) 9.5 mg/dL 0.1-0.5 Specimen slightly hemolyzed (test hkst=029) ALKALINE PHOSPHATASE (BEAKER) 155 U/L 40-150 (test hcbh=834) AST (SGOT) (BEAKER) (test 75 U/L 5-34 Specimen slightly hemolyzed khhs=425) ALT (SGPT) (BEAKER) (test 35 U/L 6-55 Specimen slightly hemolyzed skpb=497) Legal Instructor ID - LILY MSpecimen markedly ictericBASIC METABOLIC [id number] 16: 29:00 Test Item Value Reference Range Comments SODIUM (BEAKER) (test 129 meq/L 136-145 niwc=868) POTASSIUM (BEAKER) (test 4.7 meq/L 3.5-5.1 avpa=746) CHLORIDE (BEAKER) (test 96 meq/L 98-107 syvw=774) CO2 (BEAKER) (test 29 meq/L 22-29 dpku=816) BLOOD UREA NITROGEN 19 mg/dL 7-21 (BEAKER) (test jbef=958) CREATININE (BEAKER) (test 1.07 mg/dL 0.57-1.25 bdqr=713) GLUCOSE RANDOM (BEAKER) 126 mg/dL 70-105 (test lsmn=214) CALCIUM (BEAKER) (test 8.2 mg/dL 8.4-10.2 zozw=804) EGFR (BEAKER) (test 72 mL/min/1.73 sq m ESTIMATED GFR IS NOT xkly=4557) ACCURATE CREATININE CLEARANCE IN PREDICTING GLOMERULAR FILTRATION RATE. ESTIMATED GFR IS NOT APPLICABLE FOR DIALYSIS PATIENTS. Legal Instructor ID - BSSpecimen markedly ictericRESPIRATORY PANEL [id number] 14:18: 00 Test Item Value Reference Range Comments HUMAN METAPNEUMOVIRUS (BEAKER) (test Not detected Not detected, Equivocal klpq=6298) RHINOVIRUS (BEAKER) (test qnge=1060) Not detected Not detected, Equivocal INFLUENZA A (BEAKER) (test fgnb=9604) Not detected Not detected, Equivocal INFLUENZA A (NO SUBTYPE) (test hfgg=2801) INFLUENZA A SUBTYPE H1 (BEAKER) (test pjma=0120) INFLUENZA A SUBTYPE H3 (BEAKER) (test ndep=5470) INFLUENZA A SUBTYPE H1-2009 (BEAKER) (test jiyj=9474) INFLUENZA B (BEAKER) (test adic=7950) Not detected Not detected, Equivocal RESPIRATORY SYNCYTIAL VIRUS (BEAKER) Not detected Not detected, Equivocal (test pxoj=4758) PARAINFLUENZA VIRUS 1 (BEAKER) (test Not detected Not detected, Equivocal aasw=6454) PARAINFLUENZA VIRUS 2 (BEAKER) (test Not detected Not detected, Equivocal oxui=8174) PARAINFLUENZA VIRUS 3 (BEAKER) (test Not detected Not detected, Equivocal rhpr=7463) PARAINFLUENZA VIRUS 4 (BEAKER) (test Not detected Not detected, Equivocal egxl=1437) ADENOVIRUS (BEAKER) (test aweq=4501) Not detected Not detected, Equivocal CORONAVIRUS 229E (BEAKER) (test Not detected Not detected, Equivocal txuf=0316) CORONAVIRUS HKU1 (BEAKER) (test Not detected Not detected, Equivocal ojur=7552) CORONAVIRUS NL63 (BEAKER) (test Not detected Not detected, Equivocal jzwk=7808) CORONAVIRUS OC43 (BEAKER) (test Not detected Not detected, Equivocal bbbd=7976) BORDETELLA PERTUSSIS (BEAKER) (test Not detected Not detected, Equivocal ryqz=8523) CHLAMYDOPHILA PNEUMONIAE (BEAKER) (test Not detected Not detected, Equivocal gusc=7917) MYCOPLASMA PNEUMONIAE (BEAKER) (test Not detected Not detected, Equivocal izkz=7699) Other viruses and bacteria not targeted by this PCR panel cannot be excluded; therefore clinical correlation and follow up of serology, culture results, and other molecular studies is required. The results are not intended to be used as the sole means for clinical diagnosis or patient management decisions. This sample was tested at the [facility] Molecular Diagnostics Laboratory using the [employer] Respiratory Panel. It is FDA cleared and has been verified and approved by the [facility] Molecular Diagnostics Laboratory for clinical use on nasopharyngeal swab specimens.The performance of the FilmArrayRP has not been established in individuals who received influenza vaccine. Recent administration ofa nasal influenza vaccine may cause false positive results for Influenza A and/orInfluenza B.BASIC METABOLIC [id number] 08:05:00 Test Item Value Reference Range Comments SODIUM (BEAKER) (test 126 meq/L 136-145 hvdy=308) POTASSIUM (BEAKER) (test 4.6 meq/L 3.5-5.1 fsfk=758) CHLORIDE (BEAKER) (test 94 meq/L 98-107 nbha=451) CO2 (BEAKER) (test 28 meq/L 22-29 hell=449) BLOOD UREA NITROGEN 22 mg/dL 7-21 (BEAKER) (test xxxo=967) CREATININE (BEAKER) (test 1.10 mg/dL 0.57-1.25 ukza=852) GLUCOSE RANDOM (BEAKER) 110 mg/dL 70-105 (test mbzq=162) CALCIUM (BEAKER) (test 7.9 mg/dL 8.4-10.2 lmmz=280) EGFR (BEAKER) (test 70 mL/min/1.73 sq m ESTIMATED GFR IS NOT opmz=6531) ACCURATE CREATININE CLEARANCE IN PREDICTING GLOMERULAR FILTRATION RATE. ESTIMATED GFR IS NOT APPLICABLE FOR DIALYSIS PATIENTS. Legal Instructor ID - APR CSpecimen markedly ictericHEPATIC FUNCTION [id number] 08: 01:00 Test Item Value Reference Range Comments TOTAL PROTEIN (BEAKER) (test yuso=739) 5.6 gm/dL 6.0-8.3 ALBUMIN (BEAKER) (test ycrp=4074) 2.0 g/dL 3.5-5.0 BILIRUBIN TOTAL (BEAKER) (test cigl=844) 18.3 mg/dL 0.2-1.2 BILIRUBIN DIRECT (BEAKER) (test mtkj=090) 9.0 mg/dL 0.1-0.5 ALKALINE PHOSPHATASE (BEAKER) (test tdza=156) 160 U/L 40-150 AST (SGOT) (BEAKER) (test plvn=550) 81 U/L 5-34 ALT (SGPT) (BEAKER) (test byoe=319) 39 U/L 6-55 Legal Instructor ID - APR CSpecimen markedly ictericCBC W/PLT COUNT & AUTO [id number] 06:32:00 Test Item Value Reference Range Comments WHITE BLOOD CELL COUNT 8.4 K/ L 3.5-10.5 (BEAKER) (test mrae=424) RED BLOOD CELL COUNT (BEAKER) 2.01 M/ L 4.63-6.08 (test vvoj=661) HEMOGLOBIN (BEAKER) (test 7.6 GM/DL 13.7-17.5 jzfa=952) HEMATOCRIT (BEAKER) (test 22.5 % 40.1-51.0 zdlc=018) MEAN CORPUSCULAR VOLUME 111.9 fL 79.0-92.2 Discordant MCV results (BEAKER) (test phek=728) compared to previous results; clinical correlation required. MEAN CORPUSCULAR HEMOGLOBIN 37.8 pg 25.7-32.2 (BEAKER) (test kxao=493) MEAN CORPUSCULAR HEMOGLOBIN 33.8 GM/DL 32.3-36.5 CONC (BEAKER) (test knad=848) RED CELL DISTRIBUTION WIDTH 18.5 % 11.6-14.4 (BEAKER) (test kuos=547) PLATELET COUNT (BEAKER) (test 53 K/CU MM 150-450 noln=663) MEAN PLATELET VOLUME (BEAKER) 10.1 fL 9.4-12.4 (test bprc=040) NUCLEATED RED BLOOD CELLS 0 /100 WBC 0-0 (BEAKER) (test fogm=522) NEUTROPHILS RELATIVE PERCENT 79 % (BEAKER) (test ipzz=203) LYMPHOCYTES RELATIVE PERCENT 9 % (BEAKER) (test dgrj=537) MONOCYTES RELATIVE PERCENT 5 % (BEAKER) (test gqxu=331) EOSINOPHILS RELATIVE PERCENT 3 % (BEAKER) (test xlgg=244) BASOPHILS RELATIVE PERCENT 0 % (BEAKER) (test wwvi=342) NEUTROPHILS ABSOLUTE COUNT 6.56 K/ L 1.78-5.38 (BEAKER) (test vaww=935) LYMPHOCYTES ABSOLUTE COUNT 0.73 K/ L 1.32-3.57 (BEAKER) (test ichg=209) MONOCYTES ABSOLUTE COUNT 0.44 K/ L 0.30-0.82 (BEAKER) (test fffk=525) EOSINOPHILS ABSOLUTE COUNT 0.25 K/ L 0.04-0.54 (BEAKER) (test jslv=210) BASOPHILS ABSOLUTE COUNT 0.02 K/ L 0.01-0.08 (BEAKER) (test hrep=524) IMMATURE GRANULOCYTES-RELATIVE 4 % 0-1 PERCENT (BEAKER) (test fzhn=4860) PROTHROMBIN [id number] 06:22:00 Test Item Value Reference Range Comments PROTIME (BEAKER) (test mozl=824) 26.9 seconds 11.9-14.2 INR (BEAKER) (test fdmv=643) 2.6 <=5.9 Effective 09/16/2018: PT Reference Range ChangeNew: 11.9-14.2 Previous: 11.7- 14.7RECOMMENDED COUMADIN/WARFARIN INR THERAPY RANGESSTANDARD DOSE: 2.0-3.0 Includes: PROPHYLAXIS for venous thrombosis, systemic embolization; TREATMENT for venous thrombosis and/or pulmonary embolus.HIGH RISK: Target INR is2.5-3.5 for patients wiht mechanical heart valves.BASIC METABOLIC [id number] 16:19: 00 Test Item Value Reference Range Comments SODIUM (BEAKER) (test 119 meq/L 136-145 iavm=170) POTASSIUM (BEAKER) (test 5.0 meq/L 3.5-5.1 uxju=688) CHLORIDE (BEAKER) (test 88 meq/L 98-107 ihya=456) CO2 (BEAKER) (test 26 meq/L 22-29 ohic=391) BLOOD UREA NITROGEN 23 mg/dL 7-21 (BEAKER) (test vvca=419) CREATININE (BEAKER) (test 1.05 mg/dL 0.57-1.25 jply=906) GLUCOSE RANDOM (BEAKER) 123 mg/dL 70-105 (test dlxk=228) CALCIUM (BEAKER) (test 7.8 mg/dL 8.4-10.2 gkqq=633) EGFR (BEAKER) (test 74 mL/min/1.73 sq m ESTIMATED GFR IS NOT gjte=3797) ACCURATE CREATININE CLEARANCE IN PREDICTING GLOMERULAR FILTRATION RATE. ESTIMATED GFR IS NOT APPLICABLE FOR DIALYSIS PATIENTS. Legal Instructor ID - LILY MSpecimen markedly ictericHEPATITIS B SURFACE [id number] 07:08:00 Test Item Value Reference Range Comments HEPATITIS B SURFACE ANTIGEN (2) (BEAKER) (test Nonreactive Nonreactive umgk=1923) Legal Instructor ID - KENNBASIC METABOLIC [id number] 06:39:00 Test Item Value Reference Range Comments SODIUM (BEAKER) (test 120 meq/L 136-145 swlj=354) POTASSIUM (BEAKER) (test 4.6 meq/L 3.5-5.1 nhim=391) CHLORIDE (BEAKER) (test 88 meq/L 98-107 cfkw=395) CO2 (BEAKER) (test 26 meq/L 22-29 huvp=672) BLOOD UREA NITROGEN 19 mg/dL 7-21 (BEAKER) (test bbsl=939) CREATININE (BEAKER) (test 0.95 mg/dL 0.57-1.25 fsbq=370) GLUCOSE RANDOM (BEAKER) 81 mg/dL 70-105 (test hkjn=184) CALCIUM (BEAKER) (test 7.9 mg/dL 8.4-10.2 xnno=092) EGFR (BEAKER) (test 83 mL/min/1.73 sq m ESTIMATED GFR IS NOT baji=3466) ACCURATE CREATININE CLEARANCE IN PREDICTING GLOMERULAR FILTRATION RATE. ESTIMATED GFR IS NOT APPLICABLE FOR DIALYSIS PATIENTS. Legal Instructor ID - DUYNSpecimen markedly ictericHEPATIC FUNCTION [id number] 06: 32:00 Test Item Value Reference Range Comments TOTAL PROTEIN (BEAKER) (test leeh=749) 5.8 gm/dL 6.0-8.3 ALBUMIN (BEAKER) (test pqgd=0598) 2.1 g/dL 3.5-5.0 BILIRUBIN TOTAL (BEAKER) (test mnyh=176) 16.3 mg/dL 0.2-1.2 BILIRUBIN DIRECT (BEAKER) (test ewuk=612) 8.1 mg/dL 0.1-0.5 ALKALINE PHOSPHATASE (BEAKER) (test tfgc=202) 177 U/L 40-150 AST (SGOT) (BEAKER) (test bysj=577) 82 U/L 5-34 ALT (SGPT) (BEAKER) (test elon=693) 41 U/L 6-55 Legal Instructor ID - KENNSpecimen markedly ictericPROTHROMBIN TIME/[id number] 05:19: 00 Test Item Value Reference Range Comments PROTIME (BEAKER) (test nuhe=281) 26.4 seconds 11.9-14.2 INR (BEAKER) (test khpa=990) 2.5 <=5.9 Effective 09/16/2018: PT Reference Range ChangeNew: 11.9-14.2 Previous: 11.7- 14.7RECOMMENDED COUMADIN/WARFARIN INR THERAPY RANGESSTANDARD DOSE: 2.0-3.0 Includes: PROPHYLAXIS for venous thrombosis, systemic embolization; TREATMENT for venous thrombosis and/or pulmonary embolus.HIGH RISK: Target INR is2.5-3.5 for patients wiht mechanical heart valves.CBC W/PLT COUNT & AUTO [id number] 05:09:00 Test Item Value Reference Range Comments WHITE BLOOD CELL COUNT (BEAKER) (test xxhu=970) 7.0 K/ L 3.5-10.5 RED BLOOD CELL COUNT (BEAKER) (test knfs=995) 2.12 M/ L 4.63-6.08 HEMOGLOBIN (BEAKER) (test tzel=349) 8.0 GM/DL 13.7-17.5 HEMATOCRIT (BEAKER) (test jfgo=177) 22.8 % 40.1-51.0 MEAN CORPUSCULAR VOLUME (BEAKER) (test pyvw=480) 107.5 fL 79.0-92.2 MEAN CORPUSCULAR HEMOGLOBIN (BEAKER) (test 37.7 pg 25.7-32.2 ukob=213) MEAN CORPUSCULAR HEMOGLOBIN CONC (BEAKER) (test 35.1 GM/DL 32.3-36.5 jeei=802) RED CELL DISTRIBUTION WIDTH (BEAKER) (test 18.0 % 11.6-14.4 zmtt=205) PLATELET COUNT (BEAKER) (test xcyc=837) 50 K/CU MM 150-450 MEAN PLATELET VOLUME (BEAKER) (test ykti=371) 9.3 fL 9.4-12.4 NUCLEATED RED BLOOD CELLS (BEAKER) (test 0 /100 WBC 0-0 lwox=175) NEUTROPHILS RELATIVE PERCENT (BEAKER) (test 73 % amad=686) LYMPHOCYTES RELATIVE PERCENT (BEAKER) (test 11 % ahzk=124) MONOCYTES RELATIVE PERCENT (BEAKER) (test 6 % dyod=013) EOSINOPHILS RELATIVE PERCENT (BEAKER) (test 4 % qqts=467) BASOPHILS RELATIVE PERCENT (BEAKER) (test 0 % bzit=832) NEUTROPHILS ABSOLUTE COUNT (BEAKER) (test 5.15 K/ L 1.78-5.38 agiz=976) LYMPHOCYTES ABSOLUTE COUNT (BEAKER) (test 0.78 K/ L 1.32-3.57 rlts=136) MONOCYTES ABSOLUTE COUNT (BEAKER) (test ozzn=466) 0.45 K/ L 0.30-0.82 EOSINOPHILS ABSOLUTE COUNT (BEAKER) (test 0.28 K/ L 0.04-0.54 dyjg=415) BASOPHILS ABSOLUTE COUNT (BEAKER) (test fldl=260) 0.03 K/ L 0.01-0.08 IMMATURE GRANULOCYTES-RELATIVE PERCENT (BEAKER) 5 % 0-1 (test tnar=1549) HEMOGLOBIN AND [id number] 22:40:00 Test Item Value Reference Range Comments HEMOGLOBIN (BEAKER) (test mctl=456) 7.5 GM/DL 13.7-17.5 HEMATOCRIT (BEAKER) (test zkhh=772) 21.0 % 40.1-51.0 Legal Instructor ID - 6000BASIC METABOLIC [id number] 13:43:00 Test Item Value Reference Range Comments SODIUM (BEAKER) (test 120 meq/L 136-145 xeld=291) POTASSIUM (BEAKER) (test 4.6 meq/L 3.5-5.1 Specimen slightly vbko=795) hemolyzed CHLORIDE (BEAKER) (test 88 meq/L 98-107 yevd=660) CO2 (BEAKER) (test 25 meq/L 22-29 tjhk=459) BLOOD UREA NITROGEN 17 mg/dL 7-21 (BEAKER) (test ygmf=771) CREATININE (BEAKER) (test 0.83 mg/dL 0.57-1.25 Specimen slightly flkn=327) hemolyzed GLUCOSE RANDOM (BEAKER) 127 mg/dL 70-105 (test covs=297) CALCIUM (BEAKER) (test 7.6 mg/dL 8.4-10.2 vwka=256) EGFR (BEAKER) (test 97 mL/min/1.73 sq m ESTIMATED GFR IS NOT spkz=3650) ACCURATE CREATININE CLEARANCE IN PREDICTING GLOMERULAR FILTRATION RATE. ESTIMATED GFR IS NOT APPLICABLE FOR DIALYSIS PATIENTS. Legal Instructor ID - NTPSpecimen markedly ictericHEPATIC FUNCTION [id number] 13:36 :00 Test Item Value Reference Range Comments TOTAL PROTEIN (BEAKER) (test 5.5 gm/dL 6.0-8.3 Specimen slightly hemolyzed adxp=023) ALBUMIN (BEAKER) (test 1.9 g/dL 3.5-5.0 Specimen slightly hemolyzed zcnb=4510) BILIRUBIN TOTAL (BEAKER) (test 14.1 mg/dL 0.2-1.2 Specimen slightly hemolyzed rsxo=605) BILIRUBIN DIRECT (BEAKER) 7.1 mg/dL 0.1-0.5 Specimen slightly hemolyzed (test rkvp=918) ALKALINE PHOSPHATASE (BEAKER) 176 U/L 40-150 (test exyh=756) AST (SGOT) (BEAKER) (test 85 U/L 5-34 Specimen slightly hemolyzed tmam=407) ALT (SGPT) (BEAKER) (test 39 U/L 6-55 Specimen slightly hemolyzed bkgl=714) Legal Instructor ID - NTPSpecimen markedly [id number] 13:36:00 Test Item Value Reference Range Comments HAPTOGLOBIN (BEAKER) (test reje=300) < mg/dL 14-258 Legal Instructor ID - NTPLACTATE DEHYDROGENASE (LDH)2019-06-05 13:36:00 Test Item Value Reference Range Comments LACTATE DEHYDROGENASE (BEAKER) 368 U/L 125-220 Specimen slightly hemolyzed (test zytv=494) Legal Instructor ID - NTPPERIPHERAL BLOOD SMEAR - HOLD [id number] 10:24:00 Test Item Value Reference Range Comments PERIPHERAL SMEAR SAVE (BEAKER) (test mwvv=9118) saved RETICULOCYTE [id number] 10:23:00 Test Item Value Reference Range Comments RETICULOCYTE COUNT PCT (BEAKER) (test axdc=137) 9.7 % 0.5-1.8 Legal Instructor ID - 6000CBC W/PLT COUNT & AUTO [id number] 07:35:00 Test Item Value Reference Range Comments WHITE BLOOD CELL COUNT (BEAKER) (test kwke=939) 9.1 K/ L 3.5-10.5 RED BLOOD CELL COUNT (BEAKER) (test qdai=782) 1.82 M/ L 4.63-6.08 HEMOGLOBIN (BEAKER) (test ippe=551) 6.9 GM/DL 13.7-17.5 HEMATOCRIT (BEAKER) (test jvcr=984) 20.2 % 40.1-51.0 MEAN CORPUSCULAR VOLUME (BEAKER) (test lver=763) 111.0 fL 79.0-92.2 MEAN CORPUSCULAR HEMOGLOBIN (BEAKER) (test 37.9 pg 25.7-32.2 usfw=808) MEAN CORPUSCULAR HEMOGLOBIN CONC (BEAKER) (test 34.2 GM/DL 32.3-36.5 wmio=618) RED CELL DISTRIBUTION WIDTH (BEAKER) (test 15.4 % 11.6-14.4 ocpt=699) PLATELET COUNT (BEAKER) (test rwmr=066) 60 K/CU MM 150-450 MEAN PLATELET VOLUME (BEAKER) (test lppc=629) 11.3 fL 9.4-12.4 NUCLEATED RED BLOOD CELLS (BEAKER) (test 0 /100 WBC 0-0 foep=776) NEUTROPHILS RELATIVE PERCENT (BEAKER) (test 75 % gixs=874) LYMPHOCYTES RELATIVE PERCENT (BEAKER) (test 11 % kfkr=389) MONOCYTES RELATIVE PERCENT (BEAKER) (test 8 % xqwp=394) EOSINOPHILS RELATIVE PERCENT (BEAKER) (test 4 % wcfk=044) BASOPHILS RELATIVE PERCENT (BEAKER) (test 0 % bgyv=550) NEUTROPHILS ABSOLUTE COUNT (BEAKER) (test 6.80 K/ L 1.78-5.38 mdvd=639) LYMPHOCYTES ABSOLUTE COUNT (BEAKER) (test 0.98 K/ L 1.32-3.57 ywcv=820) MONOCYTES ABSOLUTE COUNT (BEAKER) (test hwsc=494) 0.75 K/ L 0.30-0.82 EOSINOPHILS ABSOLUTE COUNT (BEAKER) (test 0.32 K/ L 0.04-0.54 zgdd=790) BASOPHILS ABSOLUTE COUNT (BEAKER) (test qdwv=316) 0.04 K/ L 0.01-0.08 IMMATURE GRANULOCYTES-RELATIVE PERCENT (BEAKER) 3 % 0-1 (test rlmd=3648) PROTHROMBIN TIME/[id number] 07:02:00 Test Item Value Reference Range Comments PROTIME (BEAKER) (test pcbk=045) 27.8 seconds 11.9-14.2 INR (BEAKER) (test xpun=790) 2.7 <=5.9 Effective 09/16/2018: PT Reference Range ChangeNew: 11.9-14.2 Previous: 11.7- 14.7RECOMMENDED COUMADIN/WARFARIN INR THERAPY RANGESSTANDARD DOSE: 2.0-3.0 Includes: PROPHYLAXIS for venous thrombosis, systemic embolization; TREATMENT for venous thrombosis and/or pulmonary embolus.HIGH RISK: Target INR is2.5-3.5 for patients wiht mechanical heart valves.LACTATE DEHYDROGENASE (LDH)2019-06-04 12:25:00 Test Item Value Reference Range Comments LACTATE DEHYDROGENASE (BEAKER) (test jhyw=695) 333 U/L 125-220 Legal Instructor ID - HORACIO FHEMOGLOBIN AND [id number] 12:10:00 Test Item Value Reference Range Comments HEMOGLOBIN (BEAKER) (test mpwv=448) 8.0 GM/DL 13.7-17.5 HEMATOCRIT (BEAKER) (test udho=189) 22.7 % 40.1-51.0 Legal Instructor ID - [id number] 09:16:00 Test Item Value Reference Range Comments HAPTOGLOBIN (BEAKER) (test roux=334) < mg/dL 14-258 Legal Instructor ID - HORACIO FBASIC METABOLIC [id number] 07:55:00 Test Item Value Reference Range Comments SODIUM (BEAKER) (test 122 meq/L 136-145 tops=517) POTASSIUM (BEAKER) (test 4.0 meq/L 3.5-5.1 zdte=216) CHLORIDE (BEAKER) (test 90 meq/L 98-107 xvhh=550) CO2 (BEAKER) (test 29 meq/L 22-29 drwm=318) BLOOD UREA NITROGEN 17 mg/dL 7-21 (BEAKER) (test ryjo=848) CREATININE (BEAKER) (test 0.82 mg/dL 0.57-1.25 velx=237) GLUCOSE RANDOM (BEAKER) 83 mg/dL 70-105 (test mnie=623) CALCIUM (BEAKER) (test 7.7 mg/dL 8.4-10.2 phbi=305) EGFR (BEAKER) (test 98 mL/min/1.73 sq m ESTIMATED GFR IS NOT pxkt=4386) ACCURATE CREATININE CLEARANCE IN PREDICTING GLOMERULAR FILTRATION RATE. ESTIMATED GFR IS NOT APPLICABLE FOR DIALYSIS PATIENTS. Legal Instructor ID - DARNELL Anabellimen markedly [id number] 06:52:00 Test Item Value Reference Range Comments MAGNESIUM (BEAKER) (test znuf=135) 2.1 mg/dL 1.6-2.6 Legal Instructor ID - DARNELL WHEPATIC FUNCTION [id number] 06:52:00 Test Item Value Reference Range Comments TOTAL PROTEIN (BEAKER) (test swdr=326) 5.7 gm/dL 6.0-8.3 ALBUMIN (BEAKER) (test equj=7361) 2.1 g/dL 3.5-5.0 BILIRUBIN TOTAL (BEAKER) (test nknu=759) 14.2 mg/dL 0.2-1.2 BILIRUBIN DIRECT (BEAKER) (test eaqt=476) 7.4 mg/dL 0.1-0.5 ALKALINE PHOSPHATASE (BEAKER) (test hwpd=509) 188 U/L 40-150 AST (SGOT) (BEAKER) (test bnby=707) 83 U/L 5-34 ALT (SGPT) (BEAKER) (test fict=284) 43 U/L 6-55 Legal Instructor ID Genevieve DARNELL Anabellimestephanie markedly ictericPROTHROMBIN TIME/[id number] 05: 57:00 Test Item Value Reference Range Comments PROTIME (BEAKER) (test qmkq=585) 27.5 seconds 11.9-14.2 INR (BEAKER) (test lynh=563) 2.6 <=5.9 Effective 09/16/2018: PT Reference Range ChangeNew: 11.9-14.2 Previous: 11.7- 14.7RECOMMENDED COUMADIN/WARFARIN INR THERAPY RANGESSTANDARD DOSE: 2.0-3.0 Includes: PROPHYLAXIS for venous thrombosis, systemic embolization; TREATMENT for venous thrombosis and/or pulmonary embolus.HIGH RISK: Target INR is2.5-3.5 for patients wiht mechanical heart valves.CBC W/PLT COUNT & AUTO [id number] 05:27:00 Test Item Value Reference Range Comments WHITE BLOOD CELL COUNT (BEAKER) (test upgu=800) 7.7 K/ L 3.5-10.5 RED BLOOD CELL COUNT (BEAKER) (test qyct=525) 1.92 M/ L 4.63-6.08 HEMOGLOBIN (BEAKER) (test dwco=464) 7.3 GM/DL 13.7-17.5 HEMATOCRIT (BEAKER) (test zgkw=039) 21.4 % 40.1-51.0 MEAN CORPUSCULAR VOLUME (BEAKER) (test dhuq=683) 111.5 fL 79.0-92.2 MEAN CORPUSCULAR HEMOGLOBIN (BEAKER) (test 38.0 pg 25.7-32.2 cjim=568) MEAN CORPUSCULAR HEMOGLOBIN CONC (BEAKER) (test 34.1 GM/DL 32.3-36.5 yyrx=028) RED CELL DISTRIBUTION WIDTH (BEAKER) (test 14.9 % 11.6-14.4 mbmx=699) PLATELET COUNT (BEAKER) (test mctw=390) 50 K/CU MM 150-450 MEAN PLATELET VOLUME (BEAKER) (test hgxw=131) 9.6 fL 9.4-12.4 NUCLEATED RED BLOOD CELLS (BEAKER) (test 0 /100 WBC 0-0 jlah=324) NEUTROPHILS RELATIVE PERCENT (BEAKER) (test 74 % xlcz=811) LYMPHOCYTES RELATIVE PERCENT (BEAKER) (test 14 % bzgp=647) MONOCYTES RELATIVE PERCENT (BEAKER) (test 7 % gomg=670) EOSINOPHILS RELATIVE PERCENT (BEAKER) (test 3 % wqrj=411) BASOPHILS RELATIVE PERCENT (BEAKER) (test 0 % tdxe=014) NEUTROPHILS ABSOLUTE COUNT (BEAKER) (test 5.69 K/ L 1.78-5.38 biav=827) LYMPHOCYTES ABSOLUTE COUNT (BEAKER) (test 1.03 K/ L 1.32-3.57 rdys=186) MONOCYTES ABSOLUTE COUNT (BEAKER) (test xalq=667) 0.53 K/ L 0.30-0.82 EOSINOPHILS ABSOLUTE COUNT (BEAKER) (test 0.24 K/ L 0.04-0.54 brlq=576) BASOPHILS ABSOLUTE COUNT (BEAKER) (test esdi=037) 0.03 K/ L 0.01-0.08 IMMATURE GRANULOCYTES-RELATIVE PERCENT (BEAKER) 2 % 0-1 (test vdrq=0770) BASIC METABOLIC [id number] 18:02:00 Test Item Value Reference Range Comments SODIUM (BEAKER) (test 124 meq/L 136-145 dbwh=734) POTASSIUM (BEAKER) (test 5.1 meq/L 3.5-5.1 vuoi=540) CHLORIDE (BEAKER) (test 90 meq/L 98-107 kguh=211) CO2 (BEAKER) (test 29 meq/L 22-29 uoiz=910) BLOOD UREA NITROGEN 18 mg/dL 7-21 (BEAKER) (test iboe=932) CREATININE (BEAKER) (test 0.86 mg/dL 0.57-1.25 xmkv=391) GLUCOSE RANDOM (BEAKER) 111 mg/dL 70-105 (test apkw=995) CALCIUM (BEAKER) (test 8.1 mg/dL 8.4-10.2 cqxy=890) EGFR (BEAKER) (test 93 mL/min/1.73 sq m ESTIMATED GFR IS NOT wpwu=0850) ACCURATE CREATININE CLEARANCE IN PREDICTING GLOMERULAR FILTRATION RATE. ESTIMATED GFR IS NOT APPLICABLE FOR DIALYSIS PATIENTS. Legal Instructor ID - Carly barrios ictericU/S, ABDOMINAL, [id number] 09:18 :00With dopplerAbdomen limited area? Add comment if clarification is needed.-&gt ;Right upper quadrantReason for exam:->Rule-out thrombusFINAL REPORT TECHNIQUE: Grayscale ultrasound of the abdomen with color Doppler and spectral Doppler ultrasound of the portal/hepatic vasculature. INDICATION: Rule-out thrombus. COMPARISON: Ultrasound from 04/07/2019. Ultrasound from 03/31/2019 FINDINGS: LIVER: Nodular liver contour. No focal liver lesions. HEPATIC VASCULATURE: Portal veins are patent with normal waveform and directionality. Portal venous flow is reversed. The hepatic veins and confluence are patent. The main portal vein measures 1 cm in diameter. The hepatic arterial resistive indices range from 0.7-0.8 witha proper hepatic arterial acceleration time of 0.05 seconds. The mildly elevated right hepatic arterial resistive index is likely due to the known cirrhosis. BILIARY: Gallbladder: Surgically absentCommon bile duct measures 0.4 cm, within normal limits. No intrahepatic biliary ductal dilatation. PANCREAS: Incompletely visualized due to overlying bowel gas. SPLEEN: No splenomegaly. The spleen measures 12.5 cm in length. PERITONEUM: Small volume perihepatic ascites. KIDNEYS: Normal in size bilaterally. No hydronephrosis. No sonographically evident solid mass lesion. MIDLINE VASCULATURE: The visualized inferior vena cava is patent. The maximum visualized aortic diameter is 2.6 cm. Splenic artery and vein are patent. There are prominent perisplenic varices. IMPRESSION : 1.The liver vasculature is patent. 2.Cirrhosis with small volume perihepatic ascites. 3.Portable venous flow is reversed, consistentwith portal hypertension. Signed: Nani Saenz [facility] Verified Date/Time: 06/03/2019 09:18: 59 Reading Location: [address] Radiology Reading Room HEPATIC FUNCTION [id number] 08:11:00 Test Item Value Reference Range Comments TOTAL PROTEIN (BEAKER) (test elsl=538) 6.4 gm/dL 6.0-8.3 ALBUMIN (BEAKER) (test anjg=9852) 2.3 g/dL 3.5-5.0 BILIRUBIN TOTAL (BEAKER) (test ojul=746) 15.4 mg/dL 0.2-1.2 BILIRUBIN DIRECT (BEAKER) (test mojl=162) 8.1 mg/dL 0.1-0.5 ALKALINE PHOSPHATASE (BEAKER) (test mwfp=476) 204 U/L 40-150 AST (SGOT) (BEAKER) (test teyg=112) 99 U/L 5-34 ALT (SGPT) (BEAKER) (test sfgf=103) 48 U/L 6-55 Legal Instructor ID - LILY MSpecimen markedly ictericCHLORIDE, RANDOM [id number] 06 :21:00 Test Item Value Reference Range Comments CHLORIDE URINE (BEAKER) (test qhkk=405) 60 meq/L Reference Range: No NormalsOperator ID - LILY MSODIUM, RANDOM [id number] 06 :21:00 Test Item Value Reference Range Comments SODIUM URINE (BEAKER) (test kocr=742) 57 meq/L Reference Range: No NormalsOperator ID - LILY [id number] 06:20:00 Test Item Value Reference Range Comments HAPTOGLOBIN (BEAKER) (test ospf=180) < mg/dL 14-258 Legal Instructor ID - LILY MVITAMIN B12 AND [id number] 05:35:00 Test Item Value Reference Range Comments VITAMIN B12 (BEAKER) (test yeok=786) > pg/mL 213-816 FOLATE (BEAKER) (test wlpz=884) 19.7 ng/mL >=7.0 Legal Instructor ID - [id number] 05:21:00 Test Item Value Reference Range Comments FERRITIN (BEAKER) (test shmj=854) 384 ng/mL 5-275 Legal Instructor ID - LABASIC METABOLIC [id number] 05:16:00 Test Item Value Reference Range Comments SODIUM (BEAKER) (test 124 meq/L 136-145 beic=976) POTASSIUM (BEAKER) (test 4.1 meq/L 3.5-5.1 uuvk=444) CHLORIDE (BEAKER) (test 89 meq/L 98-107 kuqe=760) CO2 (BEAKER) (test 28 meq/L 22-29 gbev=715) BLOOD UREA NITROGEN 18 mg/dL 7-21 (BEAKER) (test hktg=639) CREATININE (BEAKER) (test 0.90 mg/dL 0.57-1.25 powo=521) GLUCOSE RANDOM (BEAKER) 89 mg/dL 70-105 (test pyom=214) CALCIUM (BEAKER) (test 7.9 mg/dL 8.4-10.2 zomx=732) EGFR (BEAKER) (test 88 mL/min/1.73 sq m ESTIMATED GFR IS NOT peoc=6129) ACCURATE CREATININE CLEARANCE IN PREDICTING GLOMERULAR FILTRATION RATE. ESTIMATED GFR IS NOT APPLICABLE FOR DIALYSIS PATIENTS. Legal Instructor ID - LILY MSpecimen markedly [id number] 05:15:00 Test Item Value Reference Range Comments MAGNESIUM (BEAKER) (test swtk=652) 2.2 mg/dL 1.6-2.6 Legal Instructor ID - LILY MLACTATE DEHYDROGENASE (LDH)2019-06-03 05:15:00 Test Item Value Reference Range Comments LACTATE DEHYDROGENASE (BEAKER) (test qucl=804) 357 U/L 125-220 Legal Instructor ID - LILY TARA, TIBC, % SAT. (WITHOUT FERRITIN)2019-06-03 04:45:00 Test Item Value Reference Range Comments IRON (BEAKER) (test uwtb=373) 182.0 ug/dL 40.0-160.0 TOTAL IRON BINDING CAPACITY (BEAKER) (test 170 ug/dL 250-450 hsdl=038) IRON % SATURATION (2) (BEAKER) (test vamp=9427) 107 % 20-55 Legal Instructor ID - LACBC W/PLT COUNT & AUTO [id number] 04:24:00 Test Item Value Reference Range Comments WHITE BLOOD CELL COUNT (BEAKER) (test vqpk=149) 8.0 K/ L 3.5-10.5 RED BLOOD CELL COUNT (BEAKER) (test nfxf=394) 2.12 M/ L 4.63-6.08 HEMOGLOBIN (BEAKER) (test zazv=570) 8.0 GM/DL 13.7-17.5 HEMATOCRIT (BEAKER) (test xjda=886) 23.2 % 40.1-51.0 MEAN CORPUSCULAR VOLUME (BEAKER) (test huzf=970) 109.4 fL 79.0-92.2 MEAN CORPUSCULAR HEMOGLOBIN (BEAKER) (test 37.7 pg 25.7-32.2 mfbv=189) MEAN CORPUSCULAR HEMOGLOBIN CONC (BEAKER) (test 34.5 GM/DL 32.3-36.5 tcuy=845) RED CELL DISTRIBUTION WIDTH (BEAKER) (test 14.6 % 11.6-14.4 oacg=507) PLATELET COUNT (BEAKER) (test hnny=314) 55 K/CU MM 150-450 MEAN PLATELET VOLUME (BEAKER) (test oltw=106) 9.6 fL 9.4-12.4 NUCLEATED RED BLOOD CELLS (BEAKER) (test 0 /100 WBC 0-0 thos=236) NEUTROPHILS RELATIVE PERCENT (BEAKER) (test 81 % yagw=383) LYMPHOCYTES RELATIVE PERCENT (BEAKER) (test 7 % ebir=708) MONOCYTES RELATIVE PERCENT (BEAKER) (test 8 % imtb=955) EOSINOPHILS RELATIVE PERCENT (BEAKER) (test 2 % jsqz=014) BASOPHILS RELATIVE PERCENT (BEAKER) (test 0 % qvau=456) NEUTROPHILS ABSOLUTE COUNT (BEAKER) (test 6.51 K/ L 1.78-5.38 botu=416) LYMPHOCYTES ABSOLUTE COUNT (BEAKER) (test 0.52 K/ L 1.32-3.57 bbcr=417) MONOCYTES ABSOLUTE COUNT (BEAKER) (test xgsd=291) 0.61 K/ L 0.30-0.82 EOSINOPHILS ABSOLUTE COUNT (BEAKER) (test 0.12 K/ L 0.04-0.54 pbhf=684) BASOPHILS ABSOLUTE COUNT (BEAKER) (test dkjn=925) 0.03 K/ L 0.01-0.08 IMMATURE GRANULOCYTES-RELATIVE PERCENT (BEAKER) 3 % 0-1 (test ioxy=6235) [id number] 01:26:00 Test Item Value Reference Range Comments MAGNESIUM (BEAKER) (test svcx=535) 1.7 mg/dL 1.6-2.6 Legal Instructor ID - DBBUN AND [id number] 01:26:00 Test Item Value Reference Range Comments BLOOD UREA NITROGEN 18 mg/dL 7-21 (BEAKER) (test iwgf=021) CREATININE (BEAKER) (test 0.82 mg/dL 0.57-1.25 aoxk=480) EGFR (BEAKER) (test 98 mL/min/1.73 sq m ESTIMATED GFR IS NOT pqtv=8703) ACCURATE CREATININE CLEARANCE IN PREDICTING GLOMERULAR FILTRATION RATE. ESTIMATED GFR IS NOT APPLICABLE FOR DIALYSIS PATIENTS. Legal Instructor ID - DBSpecimen markedly ictericCBC W/PLT COUNT & AUTO [id number] 16:46:00 Test Item Value Reference Range Comments WHITE BLOOD CELL COUNT (BEAKER) (test kvvf=394) 8.2 K/ L 3.5-10.5 RED BLOOD CELL COUNT (BEAKER) (test zfaw=739) 2.09 M/ L 4.63-6.08 HEMOGLOBIN (BEAKER) (test vthw=446) 7.9 GM/DL 13.7-17.5 HEMATOCRIT (BEAKER) (test owme=283) 23.1 % 40.1-51.0 MEAN CORPUSCULAR VOLUME (BEAKER) (test jawu=160) 110.5 fL 79.0-92.2 MEAN CORPUSCULAR HEMOGLOBIN (BEAKER) (test 37.8 pg 25.7-32.2 ogup=035) MEAN CORPUSCULAR HEMOGLOBIN CONC (BEAKER) (test 34.2 GM/DL 32.3-36.5 achf=325) RED CELL DISTRIBUTION WIDTH (BEAKER) (test 14.6 % 11.6-14.4 ucgs=808) PLATELET COUNT (BEAKER) (test jngx=348) 66 K/CU MM 150-450 MEAN PLATELET VOLUME (BEAKER) (test wmls=282) 9.5 fL 9.4-12.4 NUCLEATED RED BLOOD CELLS (BEAKER) (test 0 /100 WBC 0-0 aqnj=724) (CELLAVISION MANUAL DIFF)2019-06-02 16:46:00 Test Item Value Reference Range Comments NEUTROPHILS - REL (CELLAVISION)(BEAKER) (test 85 % hioz=0807) LYMPHOCYTES - REL (CELLAVISION)(BEAKER) (test 7 % kzby=8887) MONOCYTES - REL (CELLAVISION)(BEAKER) (test 2 % zbii=1808) EOSINOPHILS - REL (CELLAVISION)(BEAKER) (test 2 % ojdd=7657) BASOPHILS - REL (CELLAVISION)(BEAKER) (test 1 % avsb=2119) METAMYELOCYTES - REL (CELLAVISION)(BEAKER) (test 1 % 0-0 dlot=8836) MYELOCYTES - REL (CELLAVISION)(BEAKER) (test 1 % 0-0 nhxt=5144) BANDS - REL (CELLAVISION)(BEAKER) (test vfqk=4579) 1 % 0-10 NEUTROPHILS - ABS (CELLAVISION)(BEAKER) (test 6.97 K/ul 1.78-5.38 wevg=3765) LYMPHOCYTES - ABS (CELLAVISION)(BEAKER) (test 0.57 K/ul 1.32-3.57 nqek=1755) MONOCYTES - ABS (CELLAVISION)(BEAKER) (test 0.16 K/uL 0.30-0.82 fxes=8363) EOSINOPHILS - ABS (CELLAVISION)(BEAKER) (test 0.16 K/uL 0.04-0.54 hvbp=0880) BASOPHILS - ABS (CELLAVISION)(BEAKER) (test 0.08 K/uL 0.01-0.08 yvno=7692) METAMYELOCYTES - ABS (CELLAVISION)(BEAKER) (test 0.08 K/uL 0.00-0.00 jggd=4988) MYELOCYTES-ABS (CELLAVISION)(BEAKER) (test 0.08 K/uL 0.00-0.00 kjxf=4648) BANDS - ABS (CELLAVISION)(BEAKER) (test eeoa=9623) 0.08 K/uL 0.00-0.80 TOTAL COUNTED (BEAKER) (test aduk=6530) 100 PLT MORPHOLOGY (BEAKER) (test xwdl=418) Normal SMUDGE CELLS (BEAKER) (test rnrg=8518) Present POLYCHROMATOPHILLIC RBCS(BEAKER) (test ljdi=665) 3+ many HYPOCHROMIA (BEAKER) (test ofcg=944) 1+ few ANISOCYTOSIS (BEAKER) (test wmta=624) 1+ few POIKILOCYTES (BEAKER) (test xlzg=970) 3+ many SCHISTOCYTES (BEAKER) (test ohmd=894) 1+ few PLATELET CONCENTRATION (CELLAVISION)(BEAKER) (test Decreased xwsv=6478) Legal Instructor ID - sharon Miller comments: Slide comments:B-TYPE NATRIURETIC FACTOR (BNP)2019-06-02 16:35:00 Test Item Value Reference Range Comments B-TYPE NATRIURETIC PEPTIDE (BEAKER) (test 209 pg/mL 0-100 nqpn=662) Legal Instructor ID - GALAPBASIC METABOLIC [id number] 16:34:00 Test Item Value Reference Range Comments SODIUM (BEAKER) (test 122 meq/L 136-145 bhih=562) POTASSIUM (BEAKER) (test 4.5 meq/L 3.5-5.1 Specimen slightly fkfo=671) hemolyzed CHLORIDE (BEAKER) (test 90 meq/L 98-107 goxy=935) CO2 (BEAKER) (test 27 meq/L 22-29 zqab=602) BLOOD UREA NITROGEN 16 mg/dL 7-21 (BEAKER) (test bwnv=019) CREATININE (BEAKER) (test 0.86 mg/dL 0.57-1.25 Specimen slightly qrsy=733) hemolyzed GLUCOSE RANDOM (BEAKER) 102 mg/dL 70-105 (test xprq=090) CALCIUM (BEAKER) (test 7.9 mg/dL 8.4-10.2 oqgu=693) EGFR (BEAKER) (test 93 mL/min/1.73 sq m ESTIMATED GFR IS NOT stqo=4220) ACCURATE CREATININE CLEARANCE IN PREDICTING GLOMERULAR FILTRATION RATE. ESTIMATED GFR IS NOT APPLICABLE FOR DIALYSIS PATIENTS. Legal Instructor ID - GALAPSpecimen markedly ictericHEPATIC FUNCTION [id number] 16: 30:00 Test Item Value Reference Range Comments TOTAL PROTEIN (BEAKER) (test 6.2 gm/dL 6.0-8.3 Specimen slightly hemolyzed jnon=073) ALBUMIN (BEAKER) (test 2.2 g/dL 3.5-5.0 Specimen slightly hemolyzed kziw=9571) BILIRUBIN TOTAL (BEAKER) (test 14.7 mg/dL 0.2-1.2 Specimen slightly hemolyzed dmey=435) BILIRUBIN DIRECT (BEAKER) 7.0 mg/dL 0.1-0.5 Specimen slightly hemolyzed (test earl=910) ALKALINE PHOSPHATASE (BEAKER) 203 U/L 40-150 (test zmpt=463) AST (SGOT) (BEAKER) (test 107 U/L 5-34 Specimen slightly hemolyzed avea=725) ALT (SGPT) (BEAKER) (test 50 U/L 6-55 Specimen slightly hemolyzed xuvi=473) Legal Instructor ID - GALAPSpecimen markedly ictericPROTHROMBIN TIME/[id number] 16:26 :00 Test Item Value Reference Range Comments PROTIME (BEAKER) (test canu=230) 26.6 seconds 11.9-14.2 INR (BEAKER) (test ycmo=568) 2.5 <=5.9 Effective 09/16/2018: PT Reference Range ChangeNew: 11.9-14.2 Previous: 11.7- 14.7RECOMMENDED COUMADIN/WARFARIN INR THERAPY RANGESSTANDARD DOSE: 2.0-3.0 Includes: PROPHYLAXIS for venous thrombosis, systemic embolization; TREATMENT for venous thrombosis and/or pulmonary embolus.HIGH RISK: Target INR is2.5-3.5 for patients wiht mechanical heart valves.CBC W/PLT COUNT & AUTO [id number] 15:18:00 Test Item Value Reference Range Comments WHITE BLOOD CELL COUNT (BEAKER) (test wifv=654) 5.5 K/ L 3.5-10.5 RED BLOOD CELL COUNT (BEAKER) (test yyvz=682) 2.37 M/ L 4.63-6.08 HEMOGLOBIN (BEAKER) (test ezyl=510) 9.2 GM/DL 13.7-17.5 HEMATOCRIT (BEAKER) (test tvta=396) 26.6 % 40.1-51.0 MEAN CORPUSCULAR VOLUME (BEAKER) (test sopg=771) 112.2 fL 79.0-92.2 MEAN CORPUSCULAR HEMOGLOBIN (BEAKER) (test 38.8 pg 25.7-32.2 xnwq=307) MEAN CORPUSCULAR HEMOGLOBIN CONC (BEAKER) (test 34.6 GM/DL 32.3-36.5 gdmo=707) RED CELL DISTRIBUTION WIDTH (BEAKER) (test 15.5 % 11.6-14.4 poat=638) PLATELET COUNT (BEAKER) (test vfqb=681) 63 K/CU MM 150-450 MEAN PLATELET VOLUME (BEAKER) (test ebbq=143) 10.0 fL 9.4-12.4 NUCLEATED RED BLOOD CELLS (BEAKER) (test 0 /100 WBC 0-0 afnm=825) (CELLAVISION MANUAL DIFF)2019-05-17 15:18:00 Test Item Value Reference Range Comments NEUTROPHILS - REL (CELLAVISION)(BEAKER) (test 83 % msyw=4353) LYMPHOCYTES - REL (CELLAVISION)(BEAKER) (test 7 % pigf=3486) MONOCYTES - REL (CELLAVISION)(BEAKER) (test 7 % svnh=2814) EOSINOPHILS - REL (CELLAVISION)(BEAKER) (test 2 % xkbk=4559) METAMYELOCYTES - REL (CELLAVISION)(BEAKER) (test 1 % 0-0 ibap=5672) NEUTROPHILS - ABS (CELLAVISION)(BEAKER) (test 4.57 K/ul 1.78-5.38 rxgk=3632) LYMPHOCYTES - ABS (CELLAVISION)(BEAKER) (test 0.39 K/ul 1.32-3.57 wgbb=7073) MONOCYTES - ABS (CELLAVISION)(BEAKER) (test 0.39 K/uL 0.30-0.82 ukdz=2664) EOSINOPHILS - ABS (CELLAVISION)(BEAKER) (test 0.11 K/uL 0.04-0.54 kode=1475) METAMYELOCYTES - ABS (CELLAVISION)(BEAKER) (test 0.06 K/uL 0.00-0.00 sbqr=1739) TOTAL COUNTED (BEAKER) (test jnzw=5161) 100 WBC MORPHOLOGY (BEAKER) (test ksbi=186) Normal PLT MORPHOLOGY (BEAKER) (test lrac=762) Normal POLYCHROMATOPHILLIC RBCS(BEAKER) (test koab=196) 1+ few ANISOCYTOSIS (BEAKER) (test qach=978) 2+ moderate MACROCYTES (BEAKER) (test rmtd=741) 1+ few POIKILOCYTES (BEAKER) (test ygnd=902) 2+ moderate SCHISTOCYTES (BEAKER) (test hakd=487) 1+ few ASHLEY CELLS (BEAKER) (test gcfu=557) 1+ few ARTIFACT (CELLAVISION)(BEAKER) (test pzmh=7255) Present PLATELET CONCENTRATION (CELLAVISION)(BEAKER) Decreased (test vkla=2786) Legal Instructor ID - Cole Ricketts comments: Slide comments:BASIC METABOLIC [id number] 11:36:00 Test Item Value Reference Range Comments SODIUM (BEAKER) (test 126 meq/L 136-145 yciu=446) POTASSIUM (BEAKER) (test 4.3 meq/L 3.5-5.1 sodl=135) CHLORIDE (BEAKER) (test 95 meq/L 98-107 zfro=485) CO2 (BEAKER) (test 24 meq/L 22-29 tfyl=292) BLOOD UREA NITROGEN 7 mg/dL 7-21 (BEAKER) (test nzcf=923) CREATININE (BEAKER) (test 0.75 mg/dL 0.57-1.25 vkop=007) GLUCOSE RANDOM (BEAKER) 95 mg/dL 70-105 (test dvuo=383) CALCIUM (BEAKER) (test 8.8 mg/dL 8.4-10.2 trnv=932) EGFR (BEAKER) (test 109 mL/min/1.73 sq m ESTIMATED GFR IS NOT dpsk=1740) ACCURATE CREATININE CLEARANCE IN PREDICTING GLOMERULAR FILTRATION RATE. ESTIMATED GFR IS NOT APPLICABLE FOR DIALYSIS PATIENTS. Legal Instructor BRYSON Jayimen markedly ictericHEPATIC FUNCTION [id number] 11:36:00 Test Item Value Reference Range Comments TOTAL PROTEIN (BEAKER) (test iftz=354) 7.2 gm/dL 6.0-8.3 ALBUMIN (BEAKER) (test zkxb=5807) 2.6 g/dL 3.5-5.0 BILIRUBIN TOTAL (BEAKER) (test yrar=638) 11.8 mg/dL 0.2-1.2 BILIRUBIN DIRECT (BEAKER) (test uppn=063) 6.5 mg/dL 0.1-0.5 ALKALINE PHOSPHATASE (BEAKER) (test ijod=677) 268 U/L 40-150 AST (SGOT) (BEAKER) (test qoru=402) 96 U/L 5-34 ALT (SGPT) (BEAKER) (test wugd=136) 45 U/L 6-55 Legal Instructor ID Genevieve Coelho markedly ictericPROTHROMBIN [id number] 11:20:00 Test Item Value Reference Range Comments PROTIME (BEAKER) (test vjxt=397) 24.4 seconds 11.9-14.2 INR (BEAKER) (test gyqg=632) 2.3 <=5.9 Effective 09/16/2018: PT Reference Range ChangeNew: 11.9-14.2 Previous: 11.7- 14.7RECOMMENDED COUMADIN/WARFARIN INR THERAPY RANGESSTANDARD DOSE: 2.0-3.0 Includes: PROPHYLAXIS for venous thrombosis, systemic embolization; TREATMENT for venous thrombosis and/or pulmonary embolus.HIGH RISK: Target INR is2.5-3.5 for patients wiht mechanical heart valves.BASIC METABOLIC [id number] 12:26: 00 Test Item Value Reference Range Comments SODIUM (BEAKER) (test 130 meq/L 136-145 zvet=905) POTASSIUM (BEAKER) (test 3.4 meq/L 3.5-5.1 tpnn=035) CHLORIDE (BEAKER) (test 92 meq/L 98-107 znkt=494) CO2 (BEAKER) (test 27 meq/L 22-29 rhpk=263) BLOOD UREA NITROGEN 8 mg/dL 7-21 (BEAKER) (test upzf=687) CREATININE (BEAKER) (test 0.88 mg/dL 0.57-1.25 jntj=726) GLUCOSE RANDOM (BEAKER) 138 mg/dL 70-105 (test psvw=915) CALCIUM (BEAKER) (test 8.3 mg/dL 8.4-10.2 nbtm=221) EGFR (BEAKER) (test 91 mL/min/1.73 sq m ESTIMATED GFR IS NOT cexi=8944) ACCURATE CREATININE CLEARANCE IN PREDICTING GLOMERULAR FILTRATION RATE. ESTIMATED GFR IS NOT APPLICABLE FOR DIALYSIS PATIENTS. Legal Instructor ID - NTPSpecimen markedly ictericHEPATIC FUNCTION [id number] 12:26 :00 Test Item Value Reference Range Comments TOTAL PROTEIN (BEAKER) (test orlw=511) 7.3 gm/dL 6.0-8.3 ALBUMIN (BEAKER) (test emec=2893) 2.9 g/dL 3.5-5.0 BILIRUBIN TOTAL (BEAKER) (test kwcj=970) 13.0 mg/dL 0.2-1.2 BILIRUBIN DIRECT (BEAKER) (test qdni=943) 6.4 mg/dL 0.1-0.5 ALKALINE PHOSPHATASE (BEAKER) (test pskp=812) 238 U/L 40-150 AST (SGOT) (BEAKER) (test xnwb=319) 59 U/L 5-34 ALT (SGPT) (BEAKER) (test ndih=324) 35 U/L 6-55 Legal Instructor ID - NTPSpecimen markedly ictericALPHA FETOPROTEIN (AFP), TUMOR [id number] 12:20:00 Test Item Value Reference Range Comments ALPHA-FETOPROTEIN (BEAKER) (test xcag=2204) 2.6 ng/mL <10.0 Legal Instructor ID - DBCBC W/PLT COUNT & AUTO [id number] 11:51:00 Test Item Value Reference Range Comments WHITE BLOOD CELL COUNT (BEAKER) (test jgko=299) 4.5 K/ L 3.5-10.5 RED BLOOD CELL COUNT (BEAKER) (test pvmr=284) 2.22 M/ L 4.63-6.08 HEMOGLOBIN (BEAKER) (test tdvt=804) 8.3 GM/DL 13.7-17.5 HEMATOCRIT (BEAKER) (test beuo=529) 24.3 % 40.1-51.0 MEAN CORPUSCULAR VOLUME (BEAKER) (test lwks=614) 109.5 fL 79.0-92.2 MEAN CORPUSCULAR HEMOGLOBIN (BEAKER) (test 37.4 pg 25.7-32.2 bisr=070) MEAN CORPUSCULAR HEMOGLOBIN CONC (BEAKER) (test 34.2 GM/DL 32.3-36.5 ypcq=953) RED CELL DISTRIBUTION WIDTH (BEAKER) (test 23.9 % 11.6-14.4 zrli=736) PLATELET COUNT (BEAKER) (test dqku=668) 62 K/CU MM 150-450 MEAN PLATELET VOLUME (BEAKER) (test nswb=498) 11.3 fL 9.4-12.4 NUCLEATED RED BLOOD CELLS (BEAKER) (test 0 /100 WBC 0-0 kmol=893) NEUTROPHILS RELATIVE PERCENT (BEAKER) (test 77 % yuqu=683) LYMPHOCYTES RELATIVE PERCENT (BEAKER) (test 10 % nkyz=773) MONOCYTES RELATIVE PERCENT (BEAKER) (test 11 % axyx=333) EOSINOPHILS RELATIVE PERCENT (BEAKER) (test 1 % sbpq=939) BASOPHILS RELATIVE PERCENT (BEAKER) (test 0 % ptjg=009) NEUTROPHILS ABSOLUTE COUNT (BEAKER) (test 3.46 K/ L 1.78-5.38 qrak=731) LYMPHOCYTES ABSOLUTE COUNT (BEAKER) (test 0.46 K/ L 1.32-3.57 hhly=733) MONOCYTES ABSOLUTE COUNT (BEAKER) (test nvuu=302) 0.49 K/ L 0.30-0.82 EOSINOPHILS ABSOLUTE COUNT (BEAKER) (test 0.06 K/ L 0.04-0.54 ckxd=257) BASOPHILS ABSOLUTE COUNT (BEAKER) (test nplr=389) 0.02 K/ L 0.01-0.08 IMMATURE GRANULOCYTES-RELATIVE PERCENT (BEAKER) 0 % 0-1 (test mdyt=3416) PROTHROMBIN [id number] 11:36:00 Test Item Value Reference Range Comments PROTIME (BEAKER) (test gzkh=729) 26.5 seconds 11.9-14.2 INR (BEAKER) (test qbse=068) 2.5 <=5.9 Effective 09/16/2018: PT Reference Range ChangeNew: 11.9-14.2 Previous: 11.7- 14.7RECOMMENDED COUMADIN/WARFARIN INR THERAPY RANGESSTANDARD DOSE: 2.0-3.0 Includes: PROPHYLAXIS for venous thrombosis, systemic embolization; TREATMENT for venous thrombosis and/or pulmonary embolus.HIGH RISK: Target INR is2.5-3.5 for patients wiht mechanical heart valves.CBC W/PLT COUNT & AUTO [id number] 06:47:00 Test Item Value Reference Range Comments WHITE BLOOD CELL COUNT (BEAKER) (test tdar=791) 5.9 K/ L 3.5-10.5 RED BLOOD CELL COUNT (BEAKER) (test gdkv=214) 2.09 M/ L 4.63-6.08 HEMOGLOBIN (BEAKER) (test rgjj=481) 7.3 GM/DL 13.7-17.5 HEMATOCRIT (BEAKER) (test ndyn=511) 22.1 % 40.1-51.0 MEAN CORPUSCULAR VOLUME (BEAKER) (test xrna=675) 105.7 fL 79.0-92.2 MEAN CORPUSCULAR HEMOGLOBIN (BEAKER) (test 34.9 pg 25.7-32.2 vpua=537) MEAN CORPUSCULAR HEMOGLOBIN CONC (BEAKER) (test 33.0 GM/DL 32.3-36.5 cofq=486) RED CELL DISTRIBUTION WIDTH (BEAKER) (test 24.2 % 11.6-14.4 yriu=351) PLATELET COUNT (BEAKER) (test xztw=801) 40 K/CU MM 150-450 MEAN PLATELET VOLUME (BEAKER) (test ewdq=715) 10.4 fL 9.4-12.4 NUCLEATED RED BLOOD CELLS (BEAKER) (test 0 /100 WBC 0-0 mpde=774) NEUTROPHILS RELATIVE PERCENT (BEAKER) (test 71 % zvcr=874) LYMPHOCYTES RELATIVE PERCENT (BEAKER) (test 16 % temd=446) MONOCYTES RELATIVE PERCENT (BEAKER) (test 9 % srdj=403) EOSINOPHILS RELATIVE PERCENT (BEAKER) (test 4 % wcyy=473) BASOPHILS RELATIVE PERCENT (BEAKER) (test 0 % ible=305) NEUTROPHILS ABSOLUTE COUNT (BEAKER) (test 4.12 K/ L 1.78-5.38 zwka=174) LYMPHOCYTES ABSOLUTE COUNT (BEAKER) (test 0.95 K/ L 1.32-3.57 zslm=801) MONOCYTES ABSOLUTE COUNT (BEAKER) (test slph=124) 0.52 K/ L 0.30-0.82 EOSINOPHILS ABSOLUTE COUNT (BEAKER) (test 0.21 K/ L 0.04-0.54 cdfa=634) BASOPHILS ABSOLUTE COUNT (BEAKER) (test hipx=876) 0.02 K/ L 0.01-0.08 IMMATURE GRANULOCYTES-RELATIVE PERCENT (BEAKER) 1 % 0-1 (test ycbr=9086) CALCIUM, [id number] 04:50:00 Test Item Value Reference Range Comments CALCIUM IONIZED (BEAKER) (test ohnj=054) 1.08 mmol/L 1.12-1.27 PH, BLOOD (BEAKER) (test oskt=6062) 7.52 [id number] 04:08:00 Test Item Value Reference Range Comments PHOSPHORUS (BEAKER) (test vyjs=162) 2.4 mg/dL 2.3-4.7 [id number] 04:08:00 Test Item Value Reference Range Comments MAGNESIUM (BEAKER) (test hvtn=018) 1.8 mg/dL 1.6-2.6 COMPREHENSIVE METABOLIC [id number] 04:08:00 Test Item Value Reference Range Comments TOTAL PROTEIN (BEAKER) 5.8 gm/dL 6.0-8.3 (test sabf=585) ALBUMIN (BEAKER) (test 2.3 g/dL 3.5-5.0 mjvx=7463) ALKALINE PHOSPHATASE 120 U/L 40-150 (BEAKER) (test jonh=842) BILIRUBIN TOTAL (BEAKER) 11.2 mg/dL 0.2-1.2 (test qizy=286) SODIUM (BEAKER) (test 137 meq/L 136-145 hrgs=433) POTASSIUM (BEAKER) (test 4.0 meq/L 3.5-5.1 jduy=093) CHLORIDE (BEAKER) (test 101 meq/L 98-107 rrbk=594) CO2 (BEAKER) (test 31 meq/L 22-29 pjjn=008) BLOOD UREA NITROGEN 13 mg/dL 7-21 (BEAKER) (test srmf=134) CREATININE (BEAKER) (test 0.90 mg/dL 0.57-1.25 ootx=379) GLUCOSE RANDOM (BEAKER) 130 mg/dL 70-105 (test iszp=635) CALCIUM (BEAKER) (test 8.4 mg/dL 8.4-10.2 zxjq=822) AST (SGOT) (BEAKER) (test 55 U/L 5-34 aoos=482) ALT (SGPT) (BEAKER) (test 35 U/L 6-55 lqsk=031) EGFR (BEAKER) (test 88 mL/min/1.73 sq m ESTIMATED GFR IS NOT ycxt=8789) ACCURATE CREATININE CLEARANCE IN PREDICTING GLOMERULAR FILTRATION RATE. ESTIMATED GFR IS NOT APPLICABLE FOR DIALYSIS PATIENTS. Specimen markedly ictericHEPATIC FUNCTION [id number] 04:08:00 Test Item Value Reference Range Comments TOTAL PROTEIN (BEAKER) (test tdjz=075) 5.8 gm/dL 6.0-8.3 ALBUMIN (BEAKER) (test tazt=9380) 2.3 g/dL 3.5-5.0 BILIRUBIN TOTAL (BEAKER) (test wvde=170) 11.2 mg/dL 0.2-1.2 BILIRUBIN DIRECT (BEAKER) (test czup=418) 4.3 mg/dL 0.1-0.5 ALKALINE PHOSPHATASE (BEAKER) (test dmsh=220) 120 U/L 40-150 AST (SGOT) (BEAKER) (test tzyu=732) 55 U/L 5-34 ALT (SGPT) (BEAKER) (test xsxw=632) 35 U/L 6-55 Specimen markedly ictericCBC (HEMOGRAM ONLY)2019-04-19 04:07:00 Test Item Value Reference Range Comments WHITE BLOOD CELL COUNT (BEAKER) (test leqd=947) 5.9 K/ L 3.5-10.5 RED BLOOD CELL COUNT (BEAKER) (test dime=139) 2.09 M/ L 4.63-6.08 HEMOGLOBIN (BEAKER) (test rmlb=613) 7.3 GM/DL 13.7-17.5 HEMATOCRIT (BEAKER) (test cecy=317) 22.1 % 40.1-51.0 MEAN CORPUSCULAR VOLUME (BEAKER) (test jakp=848) 105.7 fL 79.0-92.2 MEAN CORPUSCULAR HEMOGLOBIN (BEAKER) (test 34.9 pg 25.7-32.2 bnzk=280) MEAN CORPUSCULAR HEMOGLOBIN CONC (BEAKER) (test 33.0 GM/DL 32.3-36.5 mihj=040) RED CELL DISTRIBUTION WIDTH (BEAKER) (test 24.2 % 11.6-14.4 ihar=356) PLATELET COUNT (BEAKER) (test jyjn=378) 40 K/CU MM 150-450 MEAN PLATELET VOLUME (BEAKER) (test awrr=609) 10.4 fL 9.4-12.4 NUCLEATED RED BLOOD CELLS (BEAKER) (test 0 /100 WBC 0-0 zpcz=616) PROTHROMBIN [id number] 03:57:00 Test Item Value Reference Range Comments PROTIME (BEAKER) (test afnl=148) 30.0 seconds 11.9-14.2 INR (BEAKER) (test yfra=104) 3.0 <=5.9 Effective 09/16/2018: PT Reference Range ChangeNew: 11.9-14.2 Previous: 11.7- 14.7RECOMMENDED COUMADIN/WARFARIN INR THERAPY RANGESSTANDARD DOSE: 2.0-3.0 Includes: PROPHYLAXIS for venous thrombosis, systemic embolization; TREATMENT for venous thrombosis and/or pulmonary embolus.HIGH RISK: Target INR is2.5-3.5 for patients wiht mechanical heart valves.PT/[id number] 03:57:00 Test Item Value Reference Range Comments PROTIME (BEAKER) (test jyip=699) 30.0 seconds 11.9-14.2 INR (BEAKER) (test ofif=142) 3.0 <=5.9 PARTIAL THROMBOPLASTIN TIME (BEAKER) (test 49.7 seconds 22.5-36.0 xaok=585) Effective 09/16/2018: PT Reference Range ChangeNew: 11.9-14.2 Previous: 11.7- 14.7RECOMMENDED COUMADIN/WARFARIN INR THERAPY RANGESSTANDARD DOSE: 2.0-3.0 Includes: PROPHYLAXIS for venous thrombosis, systemic embolization; TREATMENT for venous thrombosis and/or pulmonary embolus.HIGH RISK: Target INR is2.5-3.5 for patients wiht mechanical heart valves.[id number] 17:10:00 Test Item Value Reference Range Comments MAGNESIUM (BEAKER) (test bxeh=823) 1.6 mg/dL 1.6-2.6 Call [id number] 17:10:00 Test Item Value Reference Range Comments SODIUM (BEAKER) (test ejds=273) 136 meq/L 136-145 POTASSIUM (BEAKER) (test fxav=029) 4.1 meq/L 3.5-5.1 CHLORIDE (BEAKER) (test agsw=859) 99 meq/L 98-107 CO2 (BEAKER) (test czqv=221) 33 meq/L - Call [id number] (HEMOGRAM ONLY)2019-04-18 05:44:00 Test Item Value Reference Range Comments WHITE BLOOD CELL COUNT (BEAKER) (test kpnl=615) 5.8 K/ L 3.5-10.5 RED BLOOD CELL COUNT (BEAKER) (test chpj=933) 2.04 M/ L 4.63-6.08 HEMOGLOBIN (BEAKER) (test ewfq=595) 7.2 GM/DL 13.7-17.5 HEMATOCRIT (BEAKER) (test envg=774) 21.4 % 40.1-51.0 MEAN CORPUSCULAR VOLUME (BEAKER) (test wwkr=402) 104.9 fL 79.0-92.2 MEAN CORPUSCULAR HEMOGLOBIN (BEAKER) (test 35.3 pg 25.7-32.2 rvbt=558) MEAN CORPUSCULAR HEMOGLOBIN CONC (BEAKER) (test 33.6 GM/DL 32.3-36.5 wsbl=256) RED CELL DISTRIBUTION WIDTH (BEAKER) (test 24.6 % 11.6-14.4 nlvc=370) PLATELET COUNT (BEAKER) (test yvzv=568) 43 K/CU MM 150-450 MEAN PLATELET VOLUME (BEAKER) (test djgn=878) 11.4 fL 9.4-12.4 NUCLEATED RED BLOOD CELLS (BEAKER) (test 0 /100 WBC 0-0 sxtr=549) B-TYPE NATRIURETIC FACTOR (BNP)2019-04-18 05:33:00 Test Item Value Reference Range Comments B-TYPE NATRIURETIC PEPTIDE (BEAKER) (test 616 pg/mL 0-100 ykbc=385) BASIC METABOLIC [id number] 05:32:00 Test Item Value Reference Range Comments SODIUM (BEAKER) (test 136 meq/L 136-145 crur=188) POTASSIUM (BEAKER) (test 3.6 meq/L 3.5-5.1 hrtp=043) CHLORIDE (BEAKER) (test 98 meq/L 98-107 fezo=576) CO2 (BEAKER) (test 34 meq/L 22-29 mmfo=298) BLOOD UREA NITROGEN 14 mg/dL 7-21 (BEAKER) (test zzjz=258) CREATININE (BEAKER) (test 0.81 mg/dL 0.57-1.25 mgcy=377) GLUCOSE RANDOM (BEAKER) 124 mg/dL 70-105 (test rfvo=613) CALCIUM (BEAKER) (test 7.8 mg/dL 8.4-10.2 vsqp=862) EGFR (BEAKER) (test 100 mL/min/1.73 sq m ESTIMATED GFR IS NOT iqbe=7886) ACCURATE CREATININE CLEARANCE IN PREDICTING GLOMERULAR FILTRATION RATE. ESTIMATED GFR IS NOT APPLICABLE FOR DIALYSIS PATIENTS. Specimen markedly [id number] 05:31:00 Test Item Value Reference Range Comments PHOSPHORUS (BEAKER) (test unjk=801) 2.0 mg/dL 2.3-4.7 HEPATIC FUNCTION [id number] 05:31:00 Test Item Value Reference Range Comments TOTAL PROTEIN (BEAKER) (test pffd=757) 5.7 gm/dL 6.0-8.3 ALBUMIN (BEAKER) (test jvyi=4000) 2.3 g/dL 3.5-5.0 BILIRUBIN TOTAL (BEAKER) (test hevy=129) 11.1 mg/dL 0.2-1.2 BILIRUBIN DIRECT (BEAKER) (test tbkc=868) 4.1 mg/dL 0.1-0.5 ALKALINE PHOSPHATASE (BEAKER) (test oeav=060) 116 U/L 40-150 AST (SGOT) (BEAKER) (test tkvx=019) 61 U/L 5-34 ALT (SGPT) (BEAKER) (test lril=741) 38 U/L 6-55 Specimen markedly ictericCALCIUM, [id number] 05:20:00 Test Item Value Reference Range Comments CALCIUM IONIZED (BEAKER) (test vaaq=001) 1.00 mmol/L 1.12-1.27 PH, BLOOD (BEAKER) (test jodd=2331) 7.55 [id number] 05:18:00 Test Item Value Reference Range Comments PROTIME (BEAKER) (test jjqw=477) 30.8 seconds 11.9-14.2 INR (BEAKER) (test wevm=989) 3.1 <=5.9 PARTIAL THROMBOPLASTIN TIME (BEAKER) (test 51.5 seconds 22.5-36.0 sqvz=142) Effective 09/16/2018: PT Reference Range ChangeNew: 11.9-14.2 Previous: 11.7- 14.7RECOMMENDED COUMADIN/WARFARIN INR THERAPY RANGESSTANDARD DOSE: 2.0-3.0 Includes: PROPHYLAXIS for venous thrombosis, systemic embolization; TREATMENT for venous thrombosis and/or pulmonary embolus.HIGH RISK: Target INR is2.5-3.5 for patients wiht mechanical heart valves.[id number] 19:32:00 Test Item Value Reference Range Comments MAGNESIUM (BEAKER) (test yvhb=130) 1.8 mg/dL 1.6-2.6 Call resultsBASIC METABOLIC [id number] 18:20:00 Test Item Value Reference Range Comments SODIUM (BEAKER) (test 139 meq/L 136-145 vdxz=453) POTASSIUM (BEAKER) (test 4.0 meq/L 3.5-5.1 oxwp=660) CHLORIDE (BEAKER) (test 99 meq/L 98-107 kjbc=380) CO2 (BEAKER) (test 32 meq/L 22-29 uqua=523) BLOOD UREA NITROGEN 15 mg/dL 7-21 (BEAKER) (test atfa=825) CREATININE (BEAKER) (test 0.90 mg/dL 0.57-1.25 nkaq=408) GLUCOSE RANDOM (BEAKER) 122 mg/dL 70-105 (test rfof=797) CALCIUM (BEAKER) (test 8.5 mg/dL 8.4-10.2 fkyh=167) EGFR (BEAKER) (test 88 mL/min/1.73 sq m ESTIMATED GFR IS NOT yapu=2929) ACCURATE CREATININE CLEARANCE IN PREDICTING GLOMERULAR FILTRATION RATE. ESTIMATED GFR IS NOT APPLICABLE FOR DIALYSIS PATIENTS. Call resultsSpecimen markedly ictericBASIC METABOLIC [id number] 12:54:00 Test Item Value Reference Range Comments SODIUM (BEAKER) (test 141 meq/L 136-145 iipj=846) POTASSIUM (BEAKER) (test 3.4 meq/L 3.5-5.1 qhlg=331) CHLORIDE (BEAKER) (test 100 meq/L 98-107 wqjg=639) CO2 (BEAKER) (test 34 meq/L 22-29 piqc=779) BLOOD UREA NITROGEN 15 mg/dL 7-21 (BEAKER) (test nelu=344) CREATININE (BEAKER) (test 0.84 mg/dL 0.57-1.25 dpoh=015) GLUCOSE RANDOM (BEAKER) 115 mg/dL 70-105 (test byaw=106) CALCIUM (BEAKER) (test 7.7 mg/dL 8.4-10.2 rkgr=220) EGFR (BEAKER) (test 96 mL/min/1.73 sq m ESTIMATED GFR IS NOT qrhv=8581) ACCURATE CREATININE CLEARANCE IN PREDICTING GLOMERULAR FILTRATION RATE. ESTIMATED GFR IS NOT APPLICABLE FOR DIALYSIS PATIENTS. Page [phone] with results, thanks.Specimen markedly ictericCALCIUM, [id number] 06:58:00 Test Item Value Reference Range Comments CALCIUM IONIZED (BEAKER) (test vses=165) 0.99 mmol/L 1.12-1.27 PH, BLOOD (BEAKER) (test wtfh=8614) 7.51 COMPREHENSIVE METABOLIC [id number] 06:44:00 Test Item Value Reference Range Comments TOTAL PROTEIN (BEAKER) 5.8 gm/dL 6.0-8.3 (test pmxb=753) ALBUMIN (BEAKER) (test 2.5 g/dL 3.5-5.0 isbp=6705) ALKALINE PHOSPHATASE 119 U/L 40-150 (BEAKER) (test vfpe=982) BILIRUBIN TOTAL (BEAKER) 11.1 mg/dL 0.2-1.2 (test jzwg=470) SODIUM (BEAKER) (test 139 meq/L 136-145 gjth=803) POTASSIUM (BEAKER) (test 2.9 meq/L 3.5-5.1 lugd=356) CHLORIDE (BEAKER) (test 99 meq/L 98-107 eruf=294) CO2 (BEAKER) (test 35 meq/L 22-29 ejhb=184) BLOOD UREA NITROGEN 17 mg/dL 7-21 (BEAKER) (test zgci=691) CREATININE (BEAKER) (test 0.96 mg/dL 0.57-1.25 wdff=783) GLUCOSE RANDOM (BEAKER) 136 mg/dL 70-105 (test qkut=287) CALCIUM (BEAKER) (test 7.7 mg/dL 8.4-10.2 wcer=998) AST (SGOT) (BEAKER) (test 58 U/L 5-34 hdtz=688) ALT (SGPT) (BEAKER) (test 35 U/L 6-55 oyai=733) EGFR (BEAKER) (test 82 mL/min/1.73 sq m ESTIMATED GFR IS NOT ybpl=9196) ACCURATE CREATININE CLEARANCE IN PREDICTING GLOMERULAR FILTRATION RATE. ESTIMATED GFR IS NOT APPLICABLE FOR DIALYSIS PATIENTS. Specimen markedly [id number] 06:34:00 Test Item Value Reference Range Comments PHOSPHORUS (BEAKER) (test cjgd=852) 2.6 mg/dL 2.3-4.7 [id number] 06:34:00 Test Item Value Reference Range Comments MAGNESIUM (BEAKER) (test rmzi=136) 1.4 mg/dL 1.6-2.6 HEPATIC FUNCTION [id number] 06:34:00 Test Item Value Reference Range Comments TOTAL PROTEIN (BEAKER) (test obgk=443) 5.8 gm/dL 6.0-8.3 ALBUMIN (BEAKER) (test fpba=5629) 2.5 g/dL 3.5-5.0 BILIRUBIN TOTAL (BEAKER) (test vadh=584) 11.1 mg/dL 0.2-1.2 BILIRUBIN DIRECT (BEAKER) (test jvpc=327) 4.5 mg/dL 0.1-0.5 ALKALINE PHOSPHATASE (BEAKER) (test wote=073) 119 U/L 40-150 AST (SGOT) (BEAKER) (test hndo=772) 58 U/L 5-34 ALT (SGPT) (BEAKER) (test ruao=227) 35 U/L 6-55 Specimen markedly ictericCBC (HEMOGRAM ONLY)2019-04-17 05:52:00 Test Item Value Reference Range Comments WHITE BLOOD CELL COUNT (BEAKER) (test vdyl=947) 5.1 K/ L 3.5-10.5 RED BLOOD CELL COUNT (BEAKER) (test makq=694) 1.93 M/ L 4.63-6.08 HEMOGLOBIN (BEAKER) (test qakf=312) 6.7 GM/DL 13.7-17.5 HEMATOCRIT (BEAKER) (test bkty=664) 20.8 % 40.1-51.0 MEAN CORPUSCULAR VOLUME (BEAKER) (test qeir=166) 107.8 fL 79.0-92.2 MEAN CORPUSCULAR HEMOGLOBIN (BEAKER) (test 34.7 pg 25.7-32.2 bfca=479) MEAN CORPUSCULAR HEMOGLOBIN CONC (BEAKER) (test 32.2 GM/DL 32.3-36.5 vfdr=588) RED CELL DISTRIBUTION WIDTH (BEAKER) (test 23.9 % 11.6-14.4 zyuw=749) PLATELET COUNT (BEAKER) (test rdfv=458) 39 K/CU MM 150-450 MEAN PLATELET VOLUME (BEAKER) (test syxs=830) 10.8 fL 9.4-12.4 NUCLEATED RED BLOOD CELLS (BEAKER) (test 0 /100 WBC 0-0 snbb=518) CBC W/PLT COUNT & AUTO [id number] 05:42:00 Test Item Value Reference Range Comments WHITE BLOOD CELL COUNT (BEAKER) (test msel=628) 5.1 K/ L 3.5-10.5 RED BLOOD CELL COUNT (BEAKER) (test gtbf=247) 1.93 M/ L 4.63-6.08 HEMOGLOBIN (BEAKER) (test djhd=294) 6.7 GM/DL 13.7-17.5 HEMATOCRIT (BEAKER) (test tmeb=108) 20.8 % 40.1-51.0 MEAN CORPUSCULAR VOLUME (BEAKER) (test geef=581) 107.8 fL 79.0-92.2 MEAN CORPUSCULAR HEMOGLOBIN (BEAKER) (test 34.7 pg 25.7-32.2 cdkc=606) MEAN CORPUSCULAR HEMOGLOBIN CONC (BEAKER) (test 32.2 GM/DL 32.3-36.5 rlgk=554) RED CELL DISTRIBUTION WIDTH (BEAKER) (test 23.9 % 11.6-14.4 qiai=136) PLATELET COUNT (BEAKER) (test hybx=437) 39 K/CU MM 150-450 MEAN PLATELET VOLUME (BEAKER) (test ydgo=537) 10.8 fL 9.4-12.4 NUCLEATED RED BLOOD CELLS (BEAKER) (test 0 /100 WBC 0-0 pahw=282) NEUTROPHILS RELATIVE PERCENT (BEAKER) (test 67 % wboo=051) LYMPHOCYTES RELATIVE PERCENT (BEAKER) (test 19 % amdd=125) MONOCYTES RELATIVE PERCENT (BEAKER) (test 9 % ydxr=276) EOSINOPHILS RELATIVE PERCENT (BEAKER) (test 3 % ppwb=060) BASOPHILS RELATIVE PERCENT (BEAKER) (test 0 % ulzc=085) NEUTROPHILS ABSOLUTE COUNT (BEAKER) (test 3.40 K/ L 1.78-5.38 cpvo=415) LYMPHOCYTES ABSOLUTE COUNT (BEAKER) (test 0.95 K/ L 1.32-3.57 zufs=411) MONOCYTES ABSOLUTE COUNT (BEAKER) (test crew=298) 0.47 K/ L 0.30-0.82 EOSINOPHILS ABSOLUTE COUNT (BEAKER) (test 0.17 K/ L 0.04-0.54 fpmo=876) BASOPHILS ABSOLUTE COUNT (BEAKER) (test shth=530) 0.02 K/ L 0.01-0.08 IMMATURE GRANULOCYTES-RELATIVE PERCENT (BEAKER) 1 % 0-1 (test hrxf=9179) PT/[id number] 05:39:00 Test Item Value Reference Range Comments PROTIME (BEAKER) (test buik=062) 31.1 seconds 11.9-14.2 INR (BEAKER) (test popz=040) 3.2 <=5.9 PARTIAL THROMBOPLASTIN TIME (BEAKER) (test 53.9 seconds 22.5-36.0 yfrq=531) Effective 09/16/2018: PT Reference Range ChangeNew: 11.9-14.2 Previous: 11.7- 14.7RECOMMENDED COUMADIN/WARFARIN INR THERAPY RANGESSTANDARD DOSE: 2.0-3.0 Includes: PROPHYLAXIS for venous thrombosis, systemic embolization; TREATMENT for venous thrombosis and/or pulmonary embolus.HIGH RISK: Target INR is2.5-3.5 for patients wiht mechanical heart valves.PROTHROMBIN TIME/[id number] 05:38: 00 Test Item Value Reference Range Comments PROTIME (BEAKER) (test eywh=785) 31.1 seconds 11.9-14.2 INR (BEAKER) (test ggms=792) 3.2 <=5.9 Effective 09/16/2018: PT Reference Range ChangeNew: 11.9-14.2 Previous: 11.7- 14.7RECOMMENDED COUMADIN/WARFARIN INR THERAPY RANGESSTANDARD DOSE: 2.0-3.0 Includes: PROPHYLAXIS for venous thrombosis, systemic embolization; TREATMENT for venous thrombosis and/or pulmonary embolus.HIGH RISK: Target INR is2.5-3.5 for patients wiht mechanical heart valves.CBC W/PLT COUNT & AUTO [id number] 07:26:00 Test Item Value Reference Range Comments WHITE BLOOD CELL COUNT (BEAKER) (test rozi=352) 7.0 K/ L 3.5-10.5 RED BLOOD CELL COUNT (BEAKER) (test cpms=870) 2.07 M/ L 4.63-6.08 HEMOGLOBIN (BEAKER) (test mpio=964) 7.5 GM/DL 13.7-17.5 HEMATOCRIT (BEAKER) (test bcfc=680) 22.6 % 40.1-51.0 MEAN CORPUSCULAR VOLUME (BEAKER) (test ymil=968) 109.2 fL 79.0-92.2 MEAN CORPUSCULAR HEMOGLOBIN (BEAKER) (test 36.2 pg 25.7-32.2 jojx=998) MEAN CORPUSCULAR HEMOGLOBIN CONC (BEAKER) (test 33.2 GM/DL 32.3-36.5 jhpj=265) RED CELL DISTRIBUTION WIDTH (BEAKER) (test 23.3 % 11.6-14.4 xuvr=063) PLATELET COUNT (BEAKER) (test uocv=453) 46 K/CU MM 150-450 MEAN PLATELET VOLUME (BEAKER) (test gxip=906) 11.4 fL 9.4-12.4 NUCLEATED RED BLOOD CELLS (BEAKER) (test 0 /100 WBC 0-0 hqes=017) NEUTROPHILS RELATIVE PERCENT (BEAKER) (test 75 % mown=561) LYMPHOCYTES RELATIVE PERCENT (BEAKER) (test 14 % cksz=659) MONOCYTES RELATIVE PERCENT (BEAKER) (test 7 % omfh=294) EOSINOPHILS RELATIVE PERCENT (BEAKER) (test 2 % hzlt=415) BASOPHILS RELATIVE PERCENT (BEAKER) (test 0 % hzqo=691) NEUTROPHILS ABSOLUTE COUNT (BEAKER) (test 5.27 K/ L 1.78-5.38 srdg=787) LYMPHOCYTES ABSOLUTE COUNT (BEAKER) (test 1.01 K/ L 1.32-3.57 flea=558) MONOCYTES ABSOLUTE COUNT (BEAKER) (test fxos=489) 0.50 K/ L 0.30-0.82 EOSINOPHILS ABSOLUTE COUNT (BEAKER) (test 0.17 K/ L 0.04-0.54 huox=719) BASOPHILS ABSOLUTE COUNT (BEAKER) (test bhhe=211) 0.02 K/ L 0.01-0.08 IMMATURE GRANULOCYTES-RELATIVE PERCENT (BEAKER) 1 % 0-1 (test vnuj=3530) [id number] 07:20:00 Test Item Value Reference Range Comments PHOSPHORUS (BEAKER) (test cnzr=551) 3.1 mg/dL 2.3-4.7 [id number] 07:20:00 Test Item Value Reference Range Comments MAGNESIUM (BEAKER) (test kjjj=263) 1.4 mg/dL 1.6-2.6 BASIC METABOLIC [id number] 07:20:00 Test Item Value Reference Range Comments SODIUM (BEAKER) (test 142 meq/L 136-145 wdcn=526) POTASSIUM (BEAKER) (test 3.9 meq/L 3.5-5.1 nnqi=200) CHLORIDE (BEAKER) (test 104 meq/L 98-107 cvzi=057) CO2 (BEAKER) (test 31 meq/L 22-29 vmgn=610) BLOOD UREA NITROGEN 25 mg/dL 7-21 (BEAKER) (test axcx=160) CREATININE (BEAKER) (test 1.09 mg/dL 0.57-1.25 nuko=157) GLUCOSE RANDOM (BEAKER) 129 mg/dL 70-105 (test aisr=834) CALCIUM (BEAKER) (test 8.1 mg/dL 8.4-10.2 wdzt=196) EGFR (BEAKER) (test 71 mL/min/1.73 sq m ESTIMATED GFR IS NOT ijsx=6295) ACCURATE CREATININE CLEARANCE IN PREDICTING GLOMERULAR FILTRATION RATE. ESTIMATED GFR IS NOT APPLICABLE FOR DIALYSIS PATIENTS. Specimen markedly ictericHEPATIC FUNCTION [id number] 07:20:00 Test Item Value Reference Range Comments TOTAL PROTEIN (BEAKER) (test sqlg=687) 6.2 gm/dL 6.0-8.3 ALBUMIN (BEAKER) (test ejlk=1031) 2.6 g/dL 3.5-5.0 BILIRUBIN TOTAL (BEAKER) (test trqs=445) 10.9 mg/dL 0.2-1.2 BILIRUBIN DIRECT (BEAKER) (test qifv=162) 4.5 mg/dL 0.1-0.5 ALKALINE PHOSPHATASE (BEAKER) (test riqg=875) 130 U/L 40-150 AST (SGOT) (BEAKER) (test pdfz=614) 65 U/L 5-34 ALT (SGPT) (BEAKER) (test dajo=136) 37 U/L 6-55 Specimen markedly ictericCBC (HEMOGRAM ONLY)2019-04-16 06:59:00 Test Item Value Reference Range Comments WHITE BLOOD CELL COUNT (BEAKER) (test mtfb=762) 7.0 K/ L 3.5-10.5 RED BLOOD CELL COUNT (BEAKER) (test hjjo=095) 2.07 M/ L 4.63-6.08 HEMOGLOBIN (BEAKER) (test trzq=602) 7.5 GM/DL 13.7-17.5 HEMATOCRIT (BEAKER) (test ytjl=245) 22.6 % 40.1-51.0 MEAN CORPUSCULAR VOLUME (BEAKER) (test zolb=044) 109.2 fL 79.0-92.2 MEAN CORPUSCULAR HEMOGLOBIN (BEAKER) (test 36.2 pg 25.7-32.2 dyzd=817) MEAN CORPUSCULAR HEMOGLOBIN CONC (BEAKER) (test 33.2 GM/DL 32.3-36.5 frvp=547) RED CELL DISTRIBUTION WIDTH (BEAKER) (test 23.3 % 11.6-14.4 rvgl=312) PLATELET COUNT (BEAKER) (test wgut=694) 46 K/CU MM 150-450 MEAN PLATELET VOLUME (BEAKER) (test scjq=793) 11.4 fL 9.4-12.4 NUCLEATED RED BLOOD CELLS (BEAKER) (test 0 /100 WBC 0-0 luqe=598) PROTHROMBIN TIME/[id number] 06:47:00 Test Item Value Reference Range Comments PROTIME (BEAKER) (test jprt=603) 29.7 seconds 11.9-14.2 INR (BEAKER) (test btui=120) 3.0 <=5.9 Effective 09/16/2018: PT Reference Range ChangeNew: 11.9-14.2 Previous: 11.7- 14.7RECOMMENDED COUMADIN/WARFARIN INR THERAPY RANGESSTANDARD DOSE: 2.0-3.0 Includes: PROPHYLAXIS for venous thrombosis, systemic embolization; TREATMENT for venous thrombosis and/or pulmonary embolus.HIGH RISK: Target INR is2.5-3.5 for patients wiht mechanical heart valves.PT/[id number] 06:47:00 Test Item Value Reference Range Comments PROTIME (BEAKER) (test okrv=750) 29.7 seconds 11.9-14.2 INR (BEAKER) (test symy=262) 3.0 <=5.9 PARTIAL THROMBOPLASTIN TIME (BEAKER) (test 49.2 seconds 22.5-36.0 suzg=841) Effective 09/16/2018: PT Reference Range ChangeNew: 11.9-14.2 Previous: 11.7- 14.7RECOMMENDED COUMADIN/WARFARIN INR THERAPY RANGESSTANDARD DOSE: 2.0-3.0 Includes: PROPHYLAXIS for venous thrombosis, systemic embolization; TREATMENT for venous thrombosis and/or pulmonary embolus.HIGH RISK: Target INR is2.5-3.5 for patients wiht mechanical heart valves.PT/[id number] 06:28:00 Test Item Value Reference Range Comments PROTIME (BEAKER) (test xlkx=052) 30.4 seconds 11.9-14.2 INR (BEAKER) (test kdyq=746) 3.1 <=5.9 PARTIAL THROMBOPLASTIN TIME (BEAKER) (test 54.5 seconds 22.5-36.0 lgnc=496) Effective 09/16/2018: PT Reference Range ChangeNew: 11.9-14.2 Previous: 11.7- 14.7RECOMMENDED COUMADIN/WARFARIN INR THERAPY RANGESSTANDARD DOSE: 2.0-3.0 Includes: PROPHYLAXIS for venous thrombosis, systemic embolization; TREATMENT for venous thrombosis and/or pulmonary embolus.HIGH RISK: Target INR is2.5-3.5 for patients wiht mechanical heart valves.PROTHROMBIN TIME/[id number] 06:27: 00 Test Item Value Reference Range Comments PROTIME (BEAKER) (test hchp=458) 30.4 seconds 11.9-14.2 INR (BEAKER) (test fcdu=594) 3.1 <=5.9 Effective 09/16/2018: PT Reference Range ChangeNew: 11.9-14.2 Previous: 11.7- 14.7RECOMMENDED COUMADIN/WARFARIN INR THERAPY RANGESSTANDARD DOSE: 2.0-3.0 Includes: PROPHYLAXIS for venous thrombosis, systemic embolization; TREATMENT for venous thrombosis and/or pulmonary embolus.HIGH RISK: Target INR is2.5-3.5 for patients wiht mechanical heart valves.[id number] 06:26:00 Test Item Value Reference Range Comments MAGNESIUM (BEAKER) (test 1.7 mg/dL 1.6-2.6 Specimen slightly hemolyzed sgea=565) BASIC METABOLIC [id number] 06:26:00 Test Item Value Reference Range Comments SODIUM (BEAKER) (test 141 meq/L 136-145 cygm=081) POTASSIUM (BEAKER) (test 3.5 meq/L 3.5-5.1 Specimen slightly nebr=329) hemolyzed CHLORIDE (BEAKER) (test 104 meq/L 98-107 ltsl=086) CO2 (BEAKER) (test 26 meq/L 22-29 jyfo=355) BLOOD UREA NITROGEN 33 mg/dL 7-21 (BEAKER) (test jkso=811) CREATININE (BEAKER) (test 1.19 mg/dL 0.57-1.25 Specimen slightly yazw=185) hemolyzed GLUCOSE RANDOM (BEAKER) 106 mg/dL 70-105 (test oaiw=852) CALCIUM (BEAKER) (test 8.0 mg/dL 8.4-10.2 ufsr=556) EGFR (BEAKER) (test 64 mL/min/1.73 sq m ESTIMATED GFR IS NOT wzpq=2649) ACCURATE CREATININE CLEARANCE IN PREDICTING GLOMERULAR FILTRATION RATE. ESTIMATED GFR IS NOT APPLICABLE FOR DIALYSIS PATIENTS. Specimen markedly ictericHEPATIC FUNCTION [id number] 06:26:00 Test Item Value Reference Range Comments TOTAL PROTEIN (BEAKER) (test 6.1 gm/dL 6.0-8.3 Specimen slightly hemolyzed gnll=279) ALBUMIN (BEAKER) (test 2.5 g/dL 3.5-5.0 Specimen slightly hemolyzed oasb=4005) BILIRUBIN TOTAL (BEAKER) (test 10.5 mg/dL 0.2-1.2 Specimen slightly hemolyzed pruw=763) BILIRUBIN DIRECT (BEAKER) 4.1 mg/dL 0.1-0.5 Specimen slightly hemolyzed (test ghia=840) ALKALINE PHOSPHATASE (BEAKER) 132 U/L 40-150 (test kpsd=337) AST (SGOT) (BEAKER) (test 74 U/L 5-34 Specimen slightly hemolyzed gkjm=009) ALT (SGPT) (BEAKER) (test 37 U/L 6-55 Specimen slightly hemolyzed jced=360) Specimen markedly ictericCBC (HEMOGRAM ONLY)2019-04-15 06:11:00 Test Item Value Reference Range Comments WHITE BLOOD CELL COUNT (BEAKER) (test ybyp=429) 6.8 K/ L 3.5-10.5 RED BLOOD CELL COUNT (BEAKER) (test wysr=503) 2.08 M/ L 4.63-6.08 HEMOGLOBIN (BEAKER) (test onlq=839) 7.5 GM/DL 13.7-17.5 HEMATOCRIT (BEAKER) (test pdmk=581) 22.1 % 40.1-51.0 MEAN CORPUSCULAR VOLUME (BEAKER) (test ltwc=918) 106.3 fL 79.0-92.2 MEAN CORPUSCULAR HEMOGLOBIN (BEAKER) (test 36.1 pg 25.7-32.2 pkrl=158) MEAN CORPUSCULAR HEMOGLOBIN CONC (BEAKER) (test 33.9 GM/DL 32.3-36.5 xlvl=630) RED CELL DISTRIBUTION WIDTH (BEAKER) (test 23.0 % 11.6-14.4 uqfe=899) PLATELET COUNT (BEAKER) (test idyo=023) 54 K/CU MM 150-450 MEAN PLATELET VOLUME (BEAKER) (test fhzs=777) 11.8 fL 9.4-12.4 NUCLEATED RED BLOOD CELLS (BEAKER) (test 0 /100 WBC 0-0 pdmq=516) [id number] 16:47:00 Test Item Value Reference Range Comments SODIUM (BEAKER) (test rmux=052) 137 meq/L 136-145 POTASSIUM (BEAKER) (test yhpt=313) 3.4 meq/L 3.5-5.1 CHLORIDE (BEAKER) (test tquq=596) 105 meq/L 98-107 CO2 (BEAKER) (test ifzp=193) 24 meq/L 22-29 Call [id number], [id number] 04:12:00 Test Item Value Reference Range Comments CALCIUM IONIZED (BEAKER) (test kdmw=995) 1.08 mmol/L 1.12-1.27 PH, BLOOD (BEAKER) (test yiql=8586) 7.48 CBC W/PLT COUNT & AUTO [id number] 04:00:00 Test Item Value Reference Range Comments WHITE BLOOD CELL COUNT 7.5 K/ L 3.5-10.5 (BEAKER) (test xeav=484) RED BLOOD CELL COUNT (BEAKER) 2.18 M/ L 4.63-6.08 (test nsyn=765) HEMOGLOBIN (BEAKER) (test 7.8 GM/DL 13.7-17.5 jspc=841) HEMATOCRIT (BEAKER) (test 23.4 % 40.1-51.0 bvfc=184) MEAN CORPUSCULAR VOLUME 107.3 fL 79.0-92.2 (BEAKER) (test ksij=187) MEAN CORPUSCULAR HEMOGLOBIN 35.8 pg 25.7-32.2 (BEAKER) (test xmsn=649) MEAN CORPUSCULAR HEMOGLOBIN 33.3 GM/DL 32.3-36.5 CONC (BEAKER) (test xuvm=769) RED CELL DISTRIBUTION WIDTH 22.6 % 11.6-14.4 (BEAKER) (test krpx=432) PLATELET COUNT (BEAKER) (test 51 K/CU MM 150-450 Discordant PLT result vnox=490) compared to previous result; clinical correlation required. MEAN PLATELET VOLUME (BEAKER) 12.1 fL 9.4-12.4 (test ojja=576) NUCLEATED RED BLOOD CELLS 0 /100 WBC 0-0 (BEAKER) (test ecoj=209) NEUTROPHILS RELATIVE PERCENT 78 % (BEAKER) (test wiea=348) LYMPHOCYTES RELATIVE PERCENT 10 % (BEAKER) (test gixm=509) MONOCYTES RELATIVE PERCENT 7 % (BEAKER) (test dsgv=444) EOSINOPHILS RELATIVE PERCENT 2 % (BEAKER) (test kvxk=004) BASOPHILS RELATIVE PERCENT 0 % (BEAKER) (test setm=495) NEUTROPHILS ABSOLUTE COUNT 5.87 K/ L 1.78-5.38 (BEAKER) (test coun=411) LYMPHOCYTES ABSOLUTE COUNT 0.72 K/ L 1.32-3.57 (BEAKER) (test swws=205) MONOCYTES ABSOLUTE COUNT 0.53 K/ L 0.30-0.82 (BEAKER) (test jwnj=775) EOSINOPHILS ABSOLUTE COUNT 0.14 K/ L 0.04-0.54 (BEAKER) (test nbzt=156) BASOPHILS ABSOLUTE COUNT 0.01 K/ L 0.01-0.08 (BEAKER) (test pmhd=895) IMMATURE GRANULOCYTES-RELATIVE 3 % 0-1 PERCENT (BEAKER) (test srxu=9522) [id number] 03:57:00 Test Item Value Reference Range Comments PHOSPHORUS (BEAKER) (test wlpa=033) 3.0 mg/dL 2.3-4.7 [id number] 03:57:00 Test Item Value Reference Range Comments MAGNESIUM (BEAKER) (test rywh=920) 2.2 mg/dL 1.6-2.6 COMPREHENSIVE METABOLIC [id number] 03:57:00 Test Item Value Reference Range Comments TOTAL PROTEIN (BEAKER) 6.7 gm/dL 6.0-8.3 (test ngzs=479) ALBUMIN (BEAKER) (test 2.9 g/dL 3.5-5.0 snuh=3356) ALKALINE PHOSPHATASE 146 U/L 40-150 (BEAKER) (test ltwp=061) BILIRUBIN TOTAL (BEAKER) 10.9 mg/dL 0.2-1.2 (test ktmi=945) SODIUM (BEAKER) (test 134 meq/L 136-145 audp=440) POTASSIUM (BEAKER) (test 4.2 meq/L 3.5-5.1 ekir=667) CHLORIDE (BEAKER) (test 104 meq/L 98-107 crgv=019) CO2 (BEAKER) (test 23 meq/L 22-29 nfpx=022) BLOOD UREA NITROGEN 40 mg/dL 7-21 (BEAKER) (test bppv=815) CREATININE (BEAKER) (test 1.29 mg/dL 0.57-1.25 kxxl=556) GLUCOSE RANDOM (BEAKER) 120 mg/dL 70-105 (test vpqr=131) CALCIUM (BEAKER) (test 8.4 mg/dL 8.4-10.2 oamc=566) AST (SGOT) (BEAKER) (test 73 U/L 5-34 zwxh=403) ALT (SGPT) (BEAKER) (test 40 U/L 6-55 zhnr=727) EGFR (BEAKER) (test 58 mL/min/1.73 sq m ESTIMATED GFR IS NOT xtlp=3767) ACCURATE CREATININE CLEARANCE IN PREDICTING GLOMERULAR FILTRATION RATE. ESTIMATED GFR IS NOT APPLICABLE FOR DIALYSIS PATIENTS. Specimen markedly ictericHEPATIC FUNCTION [id number] 03:57:00 Test Item Value Reference Range Comments TOTAL PROTEIN (BEAKER) (test aahs=814) 6.7 gm/dL 6.0-8.3 ALBUMIN (BEAKER) (test aqkp=2960) 2.9 g/dL 3.5-5.0 BILIRUBIN TOTAL (BEAKER) (test sslj=825) 10.9 mg/dL 0.2-1.2 BILIRUBIN DIRECT (BEAKER) (test bbrn=976) 4.6 mg/dL 0.1-0.5 ALKALINE PHOSPHATASE (BEAKER) (test lepx=864) 146 U/L 40-150 AST (SGOT) (BEAKER) (test vcvy=191) 73 U/L 5-34 ALT (SGPT) (BEAKER) (test uzyl=330) 40 U/L 6-55 Specimen markedly ictericPT/[id number] 03:51:00 Test Item Value Reference Range Comments PROTIME (BEAKER) (test zils=635) 27.3 seconds 11.9-14.2 INR (BEAKER) (test cvmx=011) 2.7 <=5.9 PARTIAL THROMBOPLASTIN TIME (BEAKER) (test 40.4 seconds 22.5-36.0 zmvj=802) Effective 09/16/2018: PT Reference Range ChangeNew: 11.9-14.2 Previous: 11.7- 14.7RECOMMENDED COUMADIN/WARFARIN INR THERAPY RANGESSTANDARD DOSE: 2.0-3.0 Includes: PROPHYLAXIS for venous thrombosis, systemic embolization; TREATMENT for venous thrombosis and/or pulmonary embolus.HIGH RISK: Target INR is2.5-3.5 for patients wiht mechanical heart valves.PROTHROMBIN TIME/[id number] 03:50: 00 Test Item Value Reference Range Comments PROTIME (BEAKER) (test irqs=452) 27.3 seconds 11.9-14.2 INR (BEAKER) (test puen=111) 2.7 <=5.9 Effective 09/16/2018: PT Reference Range ChangeNew: 11.9-14.2 Previous: 11.7- 14.7RECOMMENDED COUMADIN/WARFARIN INR THERAPY RANGESSTANDARD DOSE: 2.0-3.0 Includes: PROPHYLAXIS for venous thrombosis, systemic embolization; TREATMENT for venous thrombosis and/or pulmonary embolus.HIGH RISK: Target INR is2.5-3.5 for patients wiht mechanical heart valves.RAD, CHEST, 1 VIEW, NON [id number] 10:08:00Reason for exam:->Fluid overloadShould this be performed at the bedside?->YesFINAL REPORT INDICATION: Fluid overload COMPARISON: None TECHNIQUE: Single frontal view of the chest. FINDINGS: Lungs and pleura: Bibasilar airspace disease. Trace bilateral effusions. Lungs are hypoinflated. No effusion.Heart and mediastinum: Normal heart size. Unremarkable mediastinal contours.Osseous structures: No acute abnormality.Other : None. IMPRESSION: Mild pulmonary edema Signed: Zeenat Michele MDReport Verified Date/Time: 04/13/2019 10:08:37 Reading Location: [facility] Radiology Reading Room PT/[id number] 07:47:00 Test Item Value Reference Range Comments PROTIME (BEAKER) (test dtpb=801) 27.7 seconds 11.9-14.2 INR (BEAKER) (test luwx=285) 2.8 <=5.9 PARTIAL THROMBOPLASTIN TIME (BEAKER) (test 49.7 seconds 22.5-36.0 kkpy=679) Effective 09/16/2018: PT Reference Range ChangeNew: 11.9-14.2 Previous: 11.7- 14.7RECOMMENDED COUMADIN/WARFARIN INR THERAPY RANGESSTANDARD DOSE: 2.0-3.0 Includes: PROPHYLAXIS for venous thrombosis, systemic embolization; TREATMENT for venous thrombosis and/or pulmonary embolus.HIGH RISK: Target INR is2.5-3.5 for patients wiht mechanical heart valves.PROTHROMBIN TIME/[id number] 07:46: 00 Test Item Value Reference Range Comments PROTIME (BEAKER) (test csoa=510) 27.7 seconds 11.9-14.2 INR (BEAKER) (test nlnk=521) 2.8 <=5.9 Effective 09/16/2018: PT Reference Range ChangeNew: 11.9-14.2 Previous: 11.7- 14.7RECOMMENDED COUMADIN/WARFARIN INR THERAPY RANGESSTANDARD DOSE: 2.0-3.0 Includes: PROPHYLAXIS for venous thrombosis, systemic embolization; TREATMENT for venous thrombosis and/or pulmonary embolus.HIGH RISK: Target INR is2.5-3.5 for patients wiht mechanical heart valves.B-TYPE NATRIURETIC FACTOR (BNP)2019-03 07:44:00 Test Item Value Reference Range Comments B-TYPE NATRIURETIC PEPTIDE (BEAKER) (test 1361 pg/mL 0-100 ajca=729) [id number] 07:38:00 Test Item Value Reference Range Comments PHOSPHORUS (BEAKER) (test lpzu=975) 3.0 mg/dL 2.3-4.7 [id number] 07:38:00 Test Item Value Reference Range Comments MAGNESIUM (BEAKER) (test znwh=925) 2.5 mg/dL 1.6-2.6 BASIC METABOLIC [id number] 07:38:00 Test Item Value Reference Range Comments SODIUM (BEAKER) (test 132 meq/L 136-145 uzrc=921) POTASSIUM (BEAKER) (test 4.5 meq/L 3.5-5.1 whvl=157) CHLORIDE (BEAKER) (test 104 meq/L 98-107 kuwg=342) CO2 (BEAKER) (test 24 meq/L 22-29 ensb=669) BLOOD UREA NITROGEN 46 mg/dL 7-21 (BEAKER) (test vukv=542) CREATININE (BEAKER) (test 1.50 mg/dL 0.57-1.25 lcoy=032) GLUCOSE RANDOM (BEAKER) 123 mg/dL 70-105 (test qztn=047) CALCIUM (BEAKER) (test 8.2 mg/dL 8.4-10.2 thtu=830) EGFR (BEAKER) (test 49 mL/min/1.73 sq m ESTIMATED GFR IS NOT ulvy=0138) ACCURATE CREATININE CLEARANCE IN PREDICTING GLOMERULAR FILTRATION RATE. ESTIMATED GFR IS NOT APPLICABLE FOR DIALYSIS PATIENTS. Specimen markedly ictericHEPATIC FUNCTION [id number] 07:38:00 Test Item Value Reference Range Comments TOTAL PROTEIN (BEAKER) (test fvob=803) 6.1 gm/dL 6.0-8.3 ALBUMIN (BEAKER) (test bwwn=8590) 2.7 g/dL 3.5-5.0 BILIRUBIN TOTAL (BEAKER) (test nvku=457) 9.2 mg/dL 0.2-1.2 BILIRUBIN DIRECT (BEAKER) (test lkba=740) 4.2 mg/dL 0.1-0.5 ALKALINE PHOSPHATASE (BEAKER) (test wmcn=884) 136 U/L 40-150 AST (SGOT) (BEAKER) (test oaps=954) 61 U/L 5-34 ALT (SGPT) (BEAKER) (test crwg=545) 34 U/L 6-55 Specimen markedly ictericCBC (HEMOGRAM ONLY)2019-04-13 07:36:00 Test Item Value Reference Range Comments WHITE BLOOD CELL COUNT (BEAKER) (test pnqe=355) 5.3 K/ L 3.5-10.5 RED BLOOD CELL COUNT (BEAKER) (test bqqn=904) 1.93 M/ L 4.63-6.08 HEMOGLOBIN (BEAKER) (test fsnr=501) 6.9 GM/DL 13.7-17.5 HEMATOCRIT (BEAKER) (test hbgw=265) 21.1 % 40.1-51.0 MEAN CORPUSCULAR VOLUME (BEAKER) (test cvnw=917) 109.3 fL 79.0-92.2 MEAN CORPUSCULAR HEMOGLOBIN (BEAKER) (test 35.8 pg 25.7-32.2 fbpc=733) MEAN CORPUSCULAR HEMOGLOBIN CONC (BEAKER) (test 32.7 GM/DL 32.3-36.5 bmbg=995) RED CELL DISTRIBUTION WIDTH (BEAKER) (test 22.0 % 11.6-14.4 aagy=700) PLATELET COUNT (BEAKER) (test ztmq=913) 30 K/CU MM 150-450 MEAN PLATELET VOLUME (BEAKER) (test pjyd=866) 11.5 fL 9.4-12.4 NUCLEATED RED BLOOD CELLS (BEAKER) (test 0 /100 WBC 0-0 dwtc=066) CALCIUM, [id number] 07:30:00 Test Item Value Reference Range Comments CALCIUM IONIZED (BEAKER) (test rljc=075) 1.12 mmol/L 1.12-1.27 PH, BLOOD (BEAKER) (test mxgb=9466) 7.44 CBC (HEMOGRAM ONLY)2019-04-12 06:00:00 Test Item Value Reference Range Comments WHITE BLOOD CELL COUNT (BEAKER) (test egbs=032) 5.0 K/ L 3.5-10.5 RED BLOOD CELL COUNT (BEAKER) (test bukf=198) 2.07 M/ L 4.63-6.08 HEMOGLOBIN (BEAKER) (test yunl=391) 7.2 GM/DL 13.7-17.5 HEMATOCRIT (BEAKER) (test wpww=592) 22.1 % 40.1-51.0 MEAN CORPUSCULAR VOLUME (BEAKER) (test ufth=658) 106.8 fL 79.0-92.2 MEAN CORPUSCULAR HEMOGLOBIN (BEAKER) (test 34.8 pg 25.7-32.2 ukwi=193) MEAN CORPUSCULAR HEMOGLOBIN CONC (BEAKER) (test 32.6 GM/DL 32.3-36.5 pzbg=550) RED CELL DISTRIBUTION WIDTH (BEAKER) (test 21.8 % 11.6-14.4 bcfl=926) PLATELET COUNT (BEAKER) (test nlyc=058) 29 K/CU MM 150-450 MEAN PLATELET VOLUME (BEAKER) (test wush=334) 12.2 fL 9.4-12.4 NUCLEATED RED BLOOD CELLS (BEAKER) (test 0 /100 WBC 0-0 ifxu=456) [id number] 05:48:00 Test Item Value Reference Range Comments MAGNESIUM (BEAKER) (test eblv=796) 2.6 mg/dL 1.6-2.6 BASIC METABOLIC [id number] 05:48:00 Test Item Value Reference Range Comments SODIUM (BEAKER) (test 131 meq/L 136-145 xzhx=063) POTASSIUM (BEAKER) (test 4.7 meq/L 3.5-5.1 uwbw=744) CHLORIDE (BEAKER) (test 103 meq/L 98-107 weod=055) CO2 (BEAKER) (test 23 meq/L 22-29 huka=592) BLOOD UREA NITROGEN 48 mg/dL 7-21 (BEAKER) (test vdmr=075) CREATININE (BEAKER) (test 1.53 mg/dL 0.57-1.25 jfif=837) GLUCOSE RANDOM (BEAKER) 108 mg/dL 70-105 (test xomv=648) CALCIUM (BEAKER) (test 8.3 mg/dL 8.4-10.2 yuok=812) EGFR (BEAKER) (test 48 mL/min/1.73 sq m ESTIMATED GFR IS NOT reqp=8245) ACCURATE CREATININE CLEARANCE IN PREDICTING GLOMERULAR FILTRATION RATE. ESTIMATED GFR IS NOT APPLICABLE FOR DIALYSIS PATIENTS. Specimen markedly ictericHEPATIC FUNCTION [id number] 05:48:00 Test Item Value Reference Range Comments TOTAL PROTEIN (BEAKER) (test zvra=420) 6.3 gm/dL 6.0-8.3 ALBUMIN (BEAKER) (test hcss=1422) 2.8 g/dL 3.5-5.0 BILIRUBIN TOTAL (BEAKER) (test eode=459) 9.9 mg/dL 0.2-1.2 BILIRUBIN DIRECT (BEAKER) (test fkio=541) 4.6 mg/dL 0.1-0.5 ALKALINE PHOSPHATASE (BEAKER) (test lgzh=171) 124 U/L 40-150 AST (SGOT) (BEAKER) (test kmzn=424) 60 U/L 5-34 ALT (SGPT) (BEAKER) (test tcgw=511) 36 U/L 6-55 Specimen markedly ictericPT/[id number] 05:27:00 Test Item Value Reference Range Comments PROTIME (BEAKER) (test cqic=991) 27.2 seconds 11.9-14.2 INR (BEAKER) (test lmpq=735) 2.7 <=5.9 PARTIAL THROMBOPLASTIN TIME (BEAKER) (test 47.0 seconds 22.5-36.0 gwuf=860) Effective 09/16/2018: PT Reference Range ChangeNew: 11.9-14.2 Previous: 11.7- 14.7RECOMMENDED COUMADIN/WARFARIN INR THERAPY RANGESSTANDARD DOSE: 2.0-3.0 Includes: PROPHYLAXIS for venous thrombosis, systemic embolization; TREATMENT for venous thrombosis and/or pulmonary embolus.HIGH RISK: Target INR is2.5-3.5 for patients wiht mechanical heart valves.PROTHROMBIN TIME/[id number] 05:26: 00 Test Item Value Reference Range Comments PROTIME (BEAKER) (test rulh=008) 27.2 seconds 11.9-14.2 INR (BEAKER) (test fegi=490) 2.7 <=5.9 Effective 09/16/2018: PT Reference Range ChangeNew: 11.9-14.2 Previous: 11.7- 14.7RECOMMENDED COUMADIN/WARFARIN INR THERAPY RANGESSTANDARD DOSE: 2.0-3.0 Includes: PROPHYLAXIS for venous thrombosis, systemic embolization; TREATMENT for venous thrombosis and/or pulmonary embolus.HIGH RISK: Target INR is2.5-3.5 for patients wiht mechanical heart valves.[id number] 04:25:00 Test Item Value Reference Range Comments MAGNESIUM (BEAKER) (test zkqu=357) 2.4 mg/dL 1.6-2.6 BASIC METABOLIC [id number] 04:25:00 Test Item Value Reference Range Comments SODIUM (BEAKER) (test 132 meq/L 136-145 dwgw=644) POTASSIUM (BEAKER) (test 4.4 meq/L 3.5-5.1 mpfw=533) CHLORIDE (BEAKER) (test 104 meq/L 98-107 sbgw=713) CO2 (BEAKER) (test 22 meq/L 22-29 upty=978) BLOOD UREA NITROGEN 48 mg/dL 7-21 (BEAKER) (test dvvm=450) CREATININE (BEAKER) (test 1.66 mg/dL 0.57-1.25 yerw=435) GLUCOSE RANDOM (BEAKER) 110 mg/dL 70-105 (test ixqi=236) CALCIUM (BEAKER) (test 8.2 mg/dL 8.4-10.2 vgvx=088) EGFR (BEAKER) (test 44 mL/min/1.73 sq m ESTIMATED GFR IS NOT tjvx=3179) ACCURATE CREATININE CLEARANCE IN PREDICTING GLOMERULAR FILTRATION RATE. ESTIMATED GFR IS NOT APPLICABLE FOR DIALYSIS PATIENTS. Specimen markedly ictericHEPATIC FUNCTION [id number] 04:25:00 Test Item Value Reference Range Comments TOTAL PROTEIN (BEAKER) (test wlno=216) 6.3 gm/dL 6.0-8.3 ALBUMIN (BEAKER) (test jsbs=3103) 2.8 g/dL 3.5-5.0 BILIRUBIN TOTAL (BEAKER) (test xgzp=800) 11.6 mg/dL 0.2-1.2 BILIRUBIN DIRECT (BEAKER) (test kajd=889) 5.1 mg/dL 0.1-0.5 ALKALINE PHOSPHATASE (BEAKER) (test jyrb=699) 120 U/L 40-150 AST (SGOT) (BEAKER) (test vkcf=997) 54 U/L 5-34 ALT (SGPT) (BEAKER) (test lkjh=747) 31 U/L 6-55 Specimen markedly ictericCALCIUM, [id number] 04:23:00 Test Item Value Reference Range Comments CALCIUM IONIZED (BEAKER) (test rhys=451) 1.01 mmol/L 1.12-1.27 PH, BLOOD (BEAKER) (test dqaj=6585) 7.49 PT/[id number] 04:14:00 Test Item Value Reference Range Comments PROTIME (BEAKER) (test wnxb=052) 27.9 seconds 11.9-14.2 INR (BEAKER) (test egbq=019) 2.8 <=5.9 PARTIAL THROMBOPLASTIN TIME (BEAKER) (test 51.9 seconds 22.5-36.0 sazl=431) Effective 09/16/2018: PT Reference Range ChangeNew: 11.9-14.2 Previous: 11.7- 14.7RECOMMENDED COUMADIN/WARFARIN INR THERAPY RANGESSTANDARD DOSE: 2.0-3.0 Includes: PROPHYLAXIS for venous thrombosis, systemic embolization; TREATMENT for venous thrombosis and/or pulmonary embolus.HIGH RISK: Target INR is2.5-3.5 for patients wiht mechanical heart valves.CBC (HEMOGRAM ONLY)2019-04-11 04:13:00 Test Item Value Reference Range Comments WHITE BLOOD CELL COUNT (BEAKER) (test jtlb=169) 5.3 K/ L 3.5-10.5 RED BLOOD CELL COUNT (BEAKER) (test dlds=249) 2.04 M/ L 4.63-6.08 HEMOGLOBIN (BEAKER) (test mija=634) 7.3 GM/DL 13.7-17.5 HEMATOCRIT (BEAKER) (test qjgo=050) 22.2 % 40.1-51.0 MEAN CORPUSCULAR VOLUME (BEAKER) (test psrx=309) 108.8 fL 79.0-92.2 MEAN CORPUSCULAR HEMOGLOBIN (BEAKER) (test 35.8 pg 25.7-32.2 elgz=302) MEAN CORPUSCULAR HEMOGLOBIN CONC (BEAKER) (test 32.9 GM/DL 32.3-36.5 hjqq=017) RED CELL DISTRIBUTION WIDTH (BEAKER) (test 21.2 % 11.6-14.4 rcka=903) PLATELET COUNT (BEAKER) (test vjpz=845) 26 K/CU MM 150-450 MEAN PLATELET VOLUME (BEAKER) (test bjvk=303) 11.9 fL 9.4-12.4 NUCLEATED RED BLOOD CELLS (BEAKER) (test 0 /100 WBC 0-0 frql=647) BLOOD [id number] 09:01:00 Test Item Value Reference Range Comments CULTURE (BEAKER) (test tgpd=2002) No growth in 5 days BLOOD [id number] 09:01:00 Test Item Value Reference Range Comments CULTURE (BEAKER) (test qdln=3302) No growth in 5 days CALCIUM, [id number] 06:14:00 Test Item Value Reference Range Comments CALCIUM IONIZED (BEAKER) (test ssfd=362) 1.13 mmol/L 1.12-1.27 PH, BLOOD (BEAKER) (test wwqw=9340) 7.41 [id number] 04:48:00 Test Item Value Reference Range Comments PHOSPHORUS (BEAKER) (test wlra=957) 3.4 mg/dL 2.3-4.7 [id number] 04:48:00 Test Item Value Reference Range Comments MAGNESIUM (BEAKER) (test fyjf=777) 2.5 mg/dL 1.6-2.6 COMPREHENSIVE METABOLIC [id number] 04:48:00 Test Item Value Reference Range Comments TOTAL PROTEIN (BEAKER) 6.1 gm/dL 6.0-8.3 (test pftd=745) ALBUMIN (BEAKER) (test 2.8 g/dL 3.5-5.0 eoea=6439) ALKALINE PHOSPHATASE 113 U/L 40-150 (BEAKER) (test bewy=348) BILIRUBIN TOTAL (BEAKER) 11.1 mg/dL 0.2-1.2 (test nvqz=557) SODIUM (BEAKER) (test 133 meq/L 136-145 pcmv=090) POTASSIUM (BEAKER) (test 4.7 meq/L 3.5-5.1 ivxe=338) CHLORIDE (BEAKER) (test 104 meq/L 98-107 qrjd=672) CO2 (BEAKER) (test 22 meq/L 22-29 wzse=833) BLOOD UREA NITROGEN 48 mg/dL 7-21 (BEAKER) (test zavb=250) CREATININE (BEAKER) (test 1.63 mg/dL 0.57-1.25 qcyo=929) GLUCOSE RANDOM (BEAKER) 120 mg/dL 70-105 (test bkjo=857) CALCIUM (BEAKER) (test 8.2 mg/dL 8.4-10.2 zlik=100) AST (SGOT) (BEAKER) (test 52 U/L 5-34 ulsl=242) ALT (SGPT) (BEAKER) (test 30 U/L 6-55 nbmx=829) EGFR (BEAKER) (test 44 mL/min/1.73 sq m ESTIMATED GFR IS NOT jsia=4255) ACCURATE CREATININE CLEARANCE IN PREDICTING GLOMERULAR FILTRATION RATE. ESTIMATED GFR IS NOT APPLICABLE FOR DIALYSIS PATIENTS. Specimen markedly ictericHEPATIC FUNCTION [id number] 04:48:00 Test Item Value Reference Range Comments TOTAL PROTEIN (BEAKER) (test nies=567) 6.1 gm/dL 6.0-8.3 ALBUMIN (BEAKER) (test ddlo=9002) 2.8 g/dL 3.5-5.0 BILIRUBIN TOTAL (BEAKER) (test tdro=392) 11.1 mg/dL 0.2-1.2 BILIRUBIN DIRECT (BEAKER) (test rjqc=576) 4.8 mg/dL 0.1-0.5 ALKALINE PHOSPHATASE (BEAKER) (test xvsc=302) 113 U/L 40-150 AST (SGOT) (BEAKER) (test xihc=290) 52 U/L 5-34 ALT (SGPT) (BEAKER) (test xdgg=067) 30 U/L 6-55 Specimen markedly ictericPT/[id number] 04:27:00 Test Item Value Reference Range Comments PROTIME (BEAKER) (test agag=053) 27.0 seconds 11.9-14.2 INR (BEAKER) (test wmdn=097) 2.6 <=5.9 PARTIAL THROMBOPLASTIN TIME (BEAKER) (test 48.5 seconds 22.5-36.0 acaf=245) Effective 09/16/2018: PT Reference Range ChangeNew: 11.9-14.2 Previous: 11.7- 14.7RECOMMENDED COUMADIN/WARFARIN INR THERAPY RANGESSTANDARD DOSE: 2.0-3.0 Includes: PROPHYLAXIS for venous thrombosis, systemic embolization; TREATMENT for venous thrombosis and/or pulmonary embolus.HIGH RISK: Target INR is2.5-3.5 for patients wiht mechanical heart valves.PROTHROMBIN TIME/[id number] 04:26: 00 Test Item Value Reference Range Comments PROTIME (BEAKER) (test agvo=372) 27.0 seconds 11.9-14.2 INR (BEAKER) (test onmh=942) 2.6 <=5.9 Effective 09/16/2018: PT Reference Range ChangeNew: 11.9-14.2 Previous: 11.7- 14.7RECOMMENDED COUMADIN/WARFARIN INR THERAPY RANGESSTANDARD DOSE: 2.0-3.0 Includes: PROPHYLAXIS for venous thrombosis, systemic embolization; TREATMENT for venous thrombosis and/or pulmonary embolus.HIGH RISK: Target INR is2.5-3.5 for patients wiht mechanical heart valves.CBC W/PLT COUNT & AUTO [id number] 04:23:00 Test Item Value Reference Range Comments WHITE BLOOD CELL COUNT (BEAKER) (test zgvs=727) 4.1 K/ L 3.5-10.5 RED BLOOD CELL COUNT (BEAKER) (test azcq=083) 2.07 M/ L 4.63-6.08 HEMOGLOBIN (BEAKER) (test wdza=894) 7.1 GM/DL 13.7-17.5 HEMATOCRIT (BEAKER) (test ksyu=549) 22.1 % 40.1-51.0 MEAN CORPUSCULAR VOLUME (BEAKER) (test uftp=405) 106.8 fL 79.0-92.2 MEAN CORPUSCULAR HEMOGLOBIN (BEAKER) (test 34.3 pg 25.7-32.2 kquy=822) MEAN CORPUSCULAR HEMOGLOBIN CONC (BEAKER) (test 32.1 GM/DL 32.3-36.5 ucgb=313) RED CELL DISTRIBUTION WIDTH (BEAKER) (test 21.6 % 11.6-14.4 awez=839) PLATELET COUNT (BEAKER) (test xadu=206) 28 K/CU MM 150-450 MEAN PLATELET VOLUME (BEAKER) (test eeuj=205) 11.8 fL 9.4-12.4 NUCLEATED RED BLOOD CELLS (BEAKER) (test 0 /100 WBC 0-0 iplx=216) NEUTROPHILS RELATIVE PERCENT (BEAKER) (test 76 % wufo=669) LYMPHOCYTES RELATIVE PERCENT (BEAKER) (test 10 % rbuw=481) MONOCYTES RELATIVE PERCENT (BEAKER) (test 11 % sdxz=209) EOSINOPHILS RELATIVE PERCENT (BEAKER) (test 3 % wfkx=983) BASOPHILS RELATIVE PERCENT (BEAKER) (test 0 % qwgk=838) NEUTROPHILS ABSOLUTE COUNT (BEAKER) (test 3.07 K/ L 1.78-5.38 vgnx=950) LYMPHOCYTES ABSOLUTE COUNT (BEAKER) (test 0.40 K/ L 1.32-3.57 wzlx=663) MONOCYTES ABSOLUTE COUNT (BEAKER) (test hsgi=817) 0.44 K/ L 0.30-0.82 EOSINOPHILS ABSOLUTE COUNT (BEAKER) (test 0.10 K/ L 0.04-0.54 vwpt=378) BASOPHILS ABSOLUTE COUNT (BEAKER) (test tyfm=377) 0.01 K/ L 0.01-0.08 IMMATURE GRANULOCYTES-RELATIVE PERCENT (BEAKER) 1 % 0-1 (test bqeq=6059) CALCIUM, [id number] 06:53:00 Test Item Value Reference Range Comments CALCIUM IONIZED (BEAKER) (test czuy=293) 1.09 mmol/L 1.12-1.27 PH, BLOOD (BEAKER) (test obyb=7819) 7.43 CBC W/PLT COUNT & AUTO [id number] 05:21:00 Test Item Value Reference Range Comments WHITE BLOOD CELL COUNT (BEAKER) (test shyh=766) 4.7 K/ L 3.5-10.5 RED BLOOD CELL COUNT (BEAKER) (test ulks=962) 2.12 M/ L 4.63-6.08 HEMOGLOBIN (BEAKER) (test cgkc=586) 7.5 GM/DL 13.7-17.5 HEMATOCRIT (BEAKER) (test hwjs=767) 22.7 % 40.1-51.0 MEAN CORPUSCULAR VOLUME (BEAKER) (test svpm=376) 107.1 fL 79.0-92.2 MEAN CORPUSCULAR HEMOGLOBIN (BEAKER) (test 35.4 pg 25.7-32.2 dejp=775) MEAN CORPUSCULAR HEMOGLOBIN CONC (BEAKER) (test 33.0 GM/DL 32.3-36.5 fbqz=005) RED CELL DISTRIBUTION WIDTH (BEAKER) (test 21.5 % 11.6-14.4 pjgs=873) PLATELET COUNT (BEAKER) (test rndv=341) 31 K/CU MM 150-450 MEAN PLATELET VOLUME (BEAKER) (test wdwa=185) 12.1 fL 9.4-12.4 NUCLEATED RED BLOOD CELLS (BEAKER) (test 0 /100 WBC 0-0 jiko=579) NEUTROPHILS RELATIVE PERCENT (BEAKER) (test 81 % xzmb=539) LYMPHOCYTES RELATIVE PERCENT (BEAKER) (test 9 % cdtg=619) MONOCYTES RELATIVE PERCENT (BEAKER) (test 7 % gurl=625) EOSINOPHILS RELATIVE PERCENT (BEAKER) (test 2 % uxeq=352) BASOPHILS RELATIVE PERCENT (BEAKER) (test 0 % swpn=356) NEUTROPHILS ABSOLUTE COUNT (BEAKER) (test 3.78 K/ L 1.78-5.38 foqo=132) LYMPHOCYTES ABSOLUTE COUNT (BEAKER) (test 0.41 K/ L 1.32-3.57 uobl=470) MONOCYTES ABSOLUTE COUNT (BEAKER) (test yjhg=598) 0.32 K/ L 0.30-0.82 EOSINOPHILS ABSOLUTE COUNT (BEAKER) (test 0.10 K/ L 0.04-0.54 bvrk=521) BASOPHILS ABSOLUTE COUNT (BEAKER) (test rgut=431) 0.01 K/ L 0.01-0.08 IMMATURE GRANULOCYTES-RELATIVE PERCENT (BEAKER) 1 % 0-1 (test blqj=5116) [id number] 05:13:00 Test Item Value Reference Range Comments PHOSPHORUS (BEAKER) (test awpt=846) 3.8 mg/dL 2.3-4.7 [id number] 05:13:00 Test Item Value Reference Range Comments MAGNESIUM (BEAKER) (test zgsi=682) 2.4 mg/dL 1.6-2.6 COMPREHENSIVE METABOLIC [id number] 05:13:00 Test Item Value Reference Range Comments TOTAL PROTEIN (BEAKER) 6.2 gm/dL 6.0-8.3 (test vmyo=899) ALBUMIN (BEAKER) (test 2.8 g/dL 3.5-5.0 sbqg=1349) ALKALINE PHOSPHATASE 113 U/L 40-150 (BEAKER) (test fqvz=372) BILIRUBIN TOTAL (BEAKER) 11.5 mg/dL 0.2-1.2 (test xueq=231) SODIUM (BEAKER) (test 132 meq/L 136-145 lntt=311) POTASSIUM (BEAKER) (test 4.3 meq/L 3.5-5.1 ddpu=184) CHLORIDE (BEAKER) (test 103 meq/L 98-107 rcds=523) CO2 (BEAKER) (test 23 meq/L 22-29 bxci=879) BLOOD UREA NITROGEN 47 mg/dL 7-21 (BEAKER) (test zabb=847) CREATININE (BEAKER) (test 1.83 mg/dL 0.57-1.25 sxbt=924) GLUCOSE RANDOM (BEAKER) 131 mg/dL 70-105 (test qbaw=801) CALCIUM (BEAKER) (test 8.2 mg/dL 8.4-10.2 ckgu=139) AST (SGOT) (BEAKER) (test 44 U/L 5-34 mttz=458) ALT (SGPT) (BEAKER) (test 29 U/L 6-55 yjkn=109) EGFR (BEAKER) (test 39 mL/min/1.73 sq m ESTIMATED GFR IS NOT nesz=4443) ACCURATE CREATININE CLEARANCE IN PREDICTING GLOMERULAR FILTRATION RATE. ESTIMATED GFR IS NOT APPLICABLE FOR DIALYSIS PATIENTS. Specimen markedly ictericHEPATIC FUNCTION [id number] 05:13:00 Test Item Value Reference Range Comments TOTAL PROTEIN (BEAKER) (test jjiz=280) 6.2 gm/dL 6.0-8.3 ALBUMIN (BEAKER) (test vefd=1004) 2.8 g/dL 3.5-5.0 BILIRUBIN TOTAL (BEAKER) (test scjb=075) 11.5 mg/dL 0.2-1.2 BILIRUBIN DIRECT (BEAKER) (test qfzg=395) 5.2 mg/dL 0.1-0.5 ALKALINE PHOSPHATASE (BEAKER) (test ekbo=880) 113 U/L 40-150 AST (SGOT) (BEAKER) (test pfnk=029) 44 U/L 5-34 ALT (SGPT) (BEAKER) (test dbuu=619) 29 U/L 6-55 Specimen markedly ictericPT/[id number] 04:50:00 Test Item Value Reference Range Comments PROTIME (BEAKER) (test oahf=603) 27.2 seconds 11.9-14.2 INR (BEAKER) (test tviz=586) 2.7 <=5.9 PARTIAL THROMBOPLASTIN TIME (BEAKER) (test 50.3 seconds 22.5-36.0 gdbo=016) Effective 09/16/2018: PT Reference Range ChangeNew: 11.9-14.2 Previous: 11.7- 14.7RECOMMENDED COUMADIN/WARFARIN INR THERAPY RANGESSTANDARD DOSE: 2.0-3.0 Includes: PROPHYLAXIS for venous thrombosis, systemic embolization; TREATMENT for venous thrombosis and/or pulmonary embolus.HIGH RISK: Target INR is2.5-3.5 for patients wiht mechanical heart valves.PROTHROMBIN TIME/[id number] 04:49: 00 Test Item Value Reference Range Comments PROTIME (BEAKER) (test eczy=056) 27.2 seconds 11.9-14.2 INR (BEAKER) (test umtl=093) 2.7 <=5.9 Effective 09/16/2018: PT Reference Range ChangeNew: 11.9-14.2 Previous: 11.7- 14.7RECOMMENDED COUMADIN/WARFARIN INR THERAPY RANGESSTANDARD DOSE: 2.0-3.0 Includes: PROPHYLAXIS for venous thrombosis, systemic embolization; TREATMENT for venous thrombosis and/or pulmonary embolus.HIGH RISK: Target INR is2.5-3.5 for patients wiht mechanical heart valves.[id number] 06:37:00 Test Item Value Reference Range Comments PHOSPHORUS (BEAKER) (test zvoa=169) 4.2 mg/dL 2.3-4.7 [id number] 06:37:00 Test Item Value Reference Range Comments MAGNESIUM (BEAKER) (test hjke=399) 2.4 mg/dL 1.6-2.6 BASIC METABOLIC [id number] 06:37:00 Test Item Value Reference Range Comments SODIUM (BEAKER) (test 133 meq/L 136-145 gsci=635) POTASSIUM (BEAKER) (test 4.1 meq/L 3.5-5.1 yfbw=359) CHLORIDE (BEAKER) (test 104 meq/L 98-107 twcl=237) CO2 (BEAKER) (test 23 meq/L 22-29 hbrv=938) BLOOD UREA NITROGEN 45 mg/dL 7-21 (BEAKER) (test kdkx=707) CREATININE (BEAKER) (test 1.86 mg/dL 0.57-1.25 bdhz=428) GLUCOSE RANDOM (BEAKER) 122 mg/dL 70-105 (test tttf=435) CALCIUM (BEAKER) (test 8.3 mg/dL 8.4-10.2 xfie=239) EGFR (BEAKER) (test 38 mL/min/1.73 sq m ESTIMATED GFR IS NOT gkxw=5779) ACCURATE CREATININE CLEARANCE IN PREDICTING GLOMERULAR FILTRATION RATE. ESTIMATED GFR IS NOT APPLICABLE FOR DIALYSIS PATIENTS. Specimen markedly ictericHEPATIC FUNCTION [id number] 06:37:00 Test Item Value Reference Range Comments TOTAL PROTEIN (BEAKER) (test ckmo=364) 6.0 gm/dL 6.0-8.3 ALBUMIN (BEAKER) (test cyfh=0127) 2.8 g/dL 3.5-5.0 BILIRUBIN TOTAL (BEAKER) (test crhn=733) 12.3 mg/dL 0.2-1.2 BILIRUBIN DIRECT (BEAKER) (test qrjx=456) 5.5 mg/dL 0.1-0.5 ALKALINE PHOSPHATASE (BEAKER) (test chiu=008) 106 U/L 40-150 AST (SGOT) (BEAKER) (test waww=276) 39 U/L 5-34 ALT (SGPT) (BEAKER) (test isni=652) 26 U/L 6-55 Specimen markedly ictericB-TYPE NATRIURETIC FACTOR (BNP)2019-04-08 06:14:00 Test Item Value Reference Range Comments B-TYPE NATRIURETIC PEPTIDE (BEAKER) (test 1129 pg/mL 0-100 zpul=309) CALCIUM, [id number] 06:09:00 Test Item Value Reference Range Comments CALCIUM IONIZED (BEAKER) (test irin=466) 1.09 mmol/L 1.12-1.27 PH, BLOOD (BEAKER) (test ukkl=9416) 7.42 PT/[id number] 05:53:00 Test Item Value Reference Range Comments PROTIME (BEAKER) (test szso=224) 28.0 seconds 11.9-14.2 INR (BEAKER) (test koid=881) 2.8 <=5.9 PARTIAL THROMBOPLASTIN TIME (BEAKER) (test 55.2 seconds 22.5-36.0 ybli=353) Effective 09/16/2018: PT Reference Range ChangeNew: 11.9-14.2 Previous: 11.7- 14.7RECOMMENDED COUMADIN/WARFARIN INR THERAPY RANGESSTANDARD DOSE: 2.0-3.0 Includes: PROPHYLAXIS for venous thrombosis, systemic embolization; TREATMENT for venous thrombosis and/or pulmonary embolus.HIGH RISK: Target INR is2.5-3.5 for patients wiht mechanical heart valves.PROTHROMBIN TIME/[id number] 05:52: 00 Test Item Value Reference Range Comments PROTIME (BEAKER) (test aguv=923) 28.0 seconds 11.9-14.2 INR (BEAKER) (test fuem=481) 2.8 <=5.9 Effective 09/16/2018: PT Reference Range ChangeNew: 11.9-14.2 Previous: 11.7- 14.7RECOMMENDED COUMADIN/WARFARIN INR THERAPY RANGESSTANDARD DOSE: 2.0-3.0 Includes: PROPHYLAXIS for venous thrombosis, systemic embolization; TREATMENT for venous thrombosis and/or pulmonary embolus.HIGH RISK: Target INR is2.5-3.5 for patients wiht mechanical heart valves.CBC (HEMOGRAM ONLY)2019-04-08 05:47:00 Test Item Value Reference Range Comments WHITE BLOOD CELL COUNT (BEAKER) (test sker=885) 5.3 K/ L 3.5-10.5 RED BLOOD CELL COUNT (BEAKER) (test bhlj=046) 2.13 M/ L 4.63-6.08 HEMOGLOBIN (BEAKER) (test ibbx=277) 7.4 GM/DL 13.7-17.5 HEMATOCRIT (BEAKER) (test fnko=105) 22.5 % 40.1-51.0 MEAN CORPUSCULAR VOLUME (BEAKER) (test gybq=195) 105.6 fL 79.0-92.2 MEAN CORPUSCULAR HEMOGLOBIN (BEAKER) (test 34.7 pg 25.7-32.2 dydc=962) MEAN CORPUSCULAR HEMOGLOBIN CONC (BEAKER) (test 32.9 GM/DL 32.3-36.5 lffr=386) RED CELL DISTRIBUTION WIDTH (BEAKER) (test 21.8 % 11.6-14.4 hher=869) PLATELET COUNT (BEAKER) (test qyxk=563) 31 K/CU MM 150-450 MEAN PLATELET VOLUME (BEAKER) (test hbzf=250) 12.1 fL 9.4-12.4 NUCLEATED RED BLOOD CELLS (BEAKER) (test 0 /100 WBC 0-0 ukss=819) U/S, ABDOMINAL, [id number] 17:05:00Labs to be ordered:->Body Fluid Culture (w/Gram Stain, C\T\S)Reason for exam:->ascitesFINAL REPORT Limited abdominal ultrasound CLINICAL HISTORY: Ascites FINDINGS: A limited abdominal ultrasound was performed and only a trace amount of fluid was seen. Therefore aparacentesis was not performed. Signed: [employer] Verified Date/Time: 04/07/2019 17:05:11 Reading Location: [address] Ultrasound Reading Room PT/[id number] 06:41:00 Test Item Value Reference Range Comments PROTIME (BEAKER) (test boyr=117) 30.5 seconds 11.9-14.2 INR (BEAKER) (test gfbp=102) 3.1 <=5.9 PARTIAL THROMBOPLASTIN TIME (BEAKER) (test 52.7 seconds 22.5-36.0 jndp=261) Effective 09/16/2018: PT Reference Range ChangeNew: 11.9-14.2 Previous: 11.7- 14.7RECOMMENDED COUMADIN/WARFARIN INR THERAPY RANGESSTANDARD DOSE: 2.0-3.0 Includes: PROPHYLAXIS for venous thrombosis, systemic embolization; TREATMENT for venous thrombosis and/or pulmonary embolus.HIGH RISK: Target INR is2.5-3.5 for patients wiht mechanical heart valves.CBC W/PLT COUNT & AUTO [id number] 06:41:00 Test Item Value Reference Range Comments WHITE BLOOD CELL COUNT (BEAKER) (test btlx=026) 5.9 K/ L 3.5-10.5 RED BLOOD CELL COUNT (BEAKER) (test ewiu=508) 2.04 M/ L 4.63-6.08 HEMOGLOBIN (BEAKER) (test wffg=575) 7.3 GM/DL 13.7-17.5 HEMATOCRIT (BEAKER) (test tlhe=715) 21.8 % 40.1-51.0 MEAN CORPUSCULAR VOLUME (BEAKER) (test lzzo=295) 106.9 fL 79.0-92.2 MEAN CORPUSCULAR HEMOGLOBIN (BEAKER) (test 35.8 pg 25.7-32.2 nuvm=543) MEAN CORPUSCULAR HEMOGLOBIN CONC (BEAKER) (test 33.5 GM/DL 32.3-36.5 lyxm=593) RED CELL DISTRIBUTION WIDTH (BEAKER) (test 22.5 % 11.6-14.4 kjzl=719) PLATELET COUNT (BEAKER) (test wjlr=299) 29 K/CU MM 150-450 MEAN PLATELET VOLUME (BEAKER) (test qeqe=930) 10.5 fL 9.4-12.4 NUCLEATED RED BLOOD CELLS (BEAKER) (test 0 /100 WBC 0-0 fwaa=604) NEUTROPHILS RELATIVE PERCENT (BEAKER) (test 79 % xymt=914) LYMPHOCYTES RELATIVE PERCENT (BEAKER) (test 8 % lrxw=039) MONOCYTES RELATIVE PERCENT (BEAKER) (test 10 % qfve=441) EOSINOPHILS RELATIVE PERCENT (BEAKER) (test 2 % iknf=120) BASOPHILS RELATIVE PERCENT (BEAKER) (test 0 % cggu=411) NEUTROPHILS ABSOLUTE COUNT (BEAKER) (test 4.69 K/ L 1.78-5.38 xvss=015) LYMPHOCYTES ABSOLUTE COUNT (BEAKER) (test 0.47 K/ L 1.32-3.57 ssgf=837) MONOCYTES ABSOLUTE COUNT (BEAKER) (test leeh=925) 0.61 K/ L 0.30-0.82 EOSINOPHILS ABSOLUTE COUNT (BEAKER) (test 0.09 K/ L 0.04-0.54 jsto=330) BASOPHILS ABSOLUTE COUNT (BEAKER) (test yvwl=879) 0.01 K/ L 0.01-0.08 IMMATURE GRANULOCYTES-RELATIVE PERCENT (BEAKER) 1 % 0-1 (test xijz=3727) PROTHROMBIN [id number] 06:40:00 Test Item Value Reference Range Comments PROTIME (BEAKER) (test gijx=204) 30.5 seconds 11.9-14.2 INR (BEAKER) (test sstl=638) 3.1 <=5.9 Effective 09/16/2018: PT Reference Range ChangeNew: 11.9-14.2 Previous: 11.7- 14.7RECOMMENDED COUMADIN/WARFARIN INR THERAPY RANGESSTANDARD DOSE: 2.0-3.0 Includes: PROPHYLAXIS for venous thrombosis, systemic embolization; TREATMENT for venous thrombosis and/or pulmonary embolus.HIGH RISK: Target INR is2.5-3.5 for patients wiht mechanical heart valves.B-TYPE NATRIURETIC FACTOR (BNP)2019-03 06:36:00 Test Item Value Reference Range Comments B-TYPE NATRIURETIC PEPTIDE (BEAKER) (test 1126 pg/mL 0-100 anrb=012) [id number] 06:32:00 Test Item Value Reference Range Comments PHOSPHORUS (BEAKER) (test ndvw=319) 3.9 mg/dL 2.3-4.7 [id number] 06:32:00 Test Item Value Reference Range Comments MAGNESIUM (BEAKER) (test bjtw=856) 2.2 mg/dL 1.6-2.6 COMPREHENSIVE METABOLIC [id number] 06:32:00 Test Item Value Reference Range Comments TOTAL PROTEIN (BEAKER) 6.0 gm/dL 6.0-8.3 (test mvbq=397) ALBUMIN (BEAKER) (test 3.0 g/dL 3.5-5.0 gijs=8682) ALKALINE PHOSPHATASE 106 U/L 40-150 (BEAKER) (test fera=344) BILIRUBIN TOTAL (BEAKER) 13.5 mg/dL 0.2-1.2 (test lvoi=843) SODIUM (BEAKER) (test 133 meq/L 136-145 lwuk=180) POTASSIUM (BEAKER) (test 3.9 meq/L 3.5-5.1 jaat=381) CHLORIDE (BEAKER) (test 103 meq/L 98-107 atua=100) CO2 (BEAKER) (test 24 meq/L 22-29 dutg=909) BLOOD UREA NITROGEN 40 mg/dL 7-21 (BEAKER) (test eqdd=644) CREATININE (BEAKER) (test 1.83 mg/dL 0.57-1.25 adzz=121) GLUCOSE RANDOM (BEAKER) 123 mg/dL 70-105 (test dhtb=712) CALCIUM (BEAKER) (test 8.5 mg/dL 8.4-10.2 uolz=003) AST (SGOT) (BEAKER) (test 37 U/L 5-34 iimd=959) ALT (SGPT) (BEAKER) (test 27 U/L 6-55 ursi=504) EGFR (BEAKER) (test 39 mL/min/1.73 sq m ESTIMATED GFR IS NOT jdzx=8866) ACCURATE CREATININE CLEARANCE IN PREDICTING GLOMERULAR FILTRATION RATE. ESTIMATED GFR IS NOT APPLICABLE FOR DIALYSIS PATIENTS. Specimen markedly ictericHEPATIC FUNCTION [id number] 06:32:00 Test Item Value Reference Range Comments TOTAL PROTEIN (BEAKER) (test dzsa=798) 6.0 gm/dL 6.0-8.3 ALBUMIN (BEAKER) (test fnpc=0230) 3.0 g/dL 3.5-5.0 BILIRUBIN TOTAL (BEAKER) (test durl=974) 13.5 mg/dL 0.2-1.2 BILIRUBIN DIRECT (BEAKER) (test djhb=798) 6.1 mg/dL 0.1-0.5 ALKALINE PHOSPHATASE (BEAKER) (test hsez=977) 106 U/L 40-150 AST (SGOT) (BEAKER) (test ngbv=439) 37 U/L 5-34 ALT (SGPT) (BEAKER) (test saxk=828) 27 U/L 6-55 Specimen markedly ictericCBC (HEMOGRAM ONLY)2019-04-07 06:30:00 Test Item Value Reference Range Comments WHITE BLOOD CELL COUNT (BEAKER) (test vzhv=445) 5.9 K/ L 3.5-10.5 RED BLOOD CELL COUNT (BEAKER) (test auqb=916) 2.04 M/ L 4.63-6.08 HEMOGLOBIN (BEAKER) (test rtmq=002) 7.3 GM/DL 13.7-17.5 HEMATOCRIT (BEAKER) (test tyxr=980) 21.8 % 40.1-51.0 MEAN CORPUSCULAR VOLUME (BEAKER) (test htqs=402) 106.9 fL 79.0-92.2 MEAN CORPUSCULAR HEMOGLOBIN (BEAKER) (test 35.8 pg 25.7-32.2 aptm=192) MEAN CORPUSCULAR HEMOGLOBIN CONC (BEAKER) (test 33.5 GM/DL 32.3-36.5 xaei=647) RED CELL DISTRIBUTION WIDTH (BEAKER) (test 22.5 % 11.6-14.4 ufav=723) PLATELET COUNT (BEAKER) (test znmk=492) 29 K/CU MM 150-450 MEAN PLATELET VOLUME (BEAKER) (test dlsy=162) 10.5 fL 9.4-12.4 NUCLEATED RED BLOOD CELLS (BEAKER) (test 0 /100 WBC 0-0 yqgk=727) CALCIUM, [id number] 06:23:00 Test Item Value Reference Range Comments CALCIUM IONIZED (BEAKER) (test fydu=815) 1.15 mmol/L 1.12-1.27 PH, BLOOD (BEAKER) (test nbdq=8817) 7.40 CBC (HEMOGRAM ONLY)2019-04-06 17:38:00 Test Item Value Reference Range Comments WHITE BLOOD CELL COUNT 7.3 K/ L 3.5-10.5 (BEAKER) (test ldtj=404) RED BLOOD CELL COUNT (BEAKER) 2.08 M/ L 4.63-6.08 (test yxnc=430) HEMOGLOBIN (BEAKER) (test 7.4 GM/DL 13.7-17.5 vqch=368) HEMATOCRIT (BEAKER) (test 22.2 % 40.1-51.0 iyir=691) MEAN CORPUSCULAR VOLUME 106.7 fL 79.0-92.2 (BEAKER) (test gzfv=633) MEAN CORPUSCULAR HEMOGLOBIN 35.6 pg 25.7-32.2 (BEAKER) (test krtl=787) MEAN CORPUSCULAR HEMOGLOBIN 33.3 GM/DL 32.3-36.5 CONC (BEAKER) (test bcjb=679) RED CELL DISTRIBUTION WIDTH Unable to report due to (BEAKER) (test mysg=616) abnormal RBC population distribution. PLATELET COUNT (BEAKER) (test 37 K/CU MM 150-450 zoiy=089) MEAN PLATELET VOLUME (BEAKER) 11.8 fL 9.4-12.4 (test atuj=532) NUCLEATED RED BLOOD CELLS 0 /100 WBC 0-0 (BEAKER) (test himp=694) CBC W/PLT COUNT & AUTO [id number] 07:32:00 Test Item Value Reference Range Comments WHITE BLOOD CELL COUNT (BEAKER) (test halr=662) 7.2 K/ L 3.5-10.5 RED BLOOD CELL COUNT (BEAKER) (test kwth=608) 1.91 M/ L 4.63-6.08 HEMOGLOBIN (BEAKER) (test tzpr=644) 6.8 GM/DL 13.7-17.5 HEMATOCRIT (BEAKER) (test ingn=548) 21.2 % 40.1-51.0 MEAN CORPUSCULAR VOLUME (BEAKER) (test orsk=127) 111.0 fL 79.0-92.2 MEAN CORPUSCULAR HEMOGLOBIN (BEAKER) (test 35.6 pg 25.7-32.2 olkw=289) MEAN CORPUSCULAR HEMOGLOBIN CONC (BEAKER) (test 32.1 GM/DL 32.3-36.5 svvq=630) RED CELL DISTRIBUTION WIDTH (BEAKER) (test 21.6 % 11.6-14.4 atow=411) PLATELET COUNT (BEAKER) (test ysjl=380) 32 K/CU MM 150-450 MEAN PLATELET VOLUME (BEAKER) (test apzf=163) 11.9 fL 9.4-12.4 NUCLEATED RED BLOOD CELLS (BEAKER) (test 0 /100 WBC 0-0 ljhu=589) (CELLAVISION MANUAL DIFF)2019-04-06 07:32:00 Test Item Value Reference Range Comments NEUTROPHILS - REL (CELLAVISION)(BEAKER) (test 77 % sogy=8041) LYMPHOCYTES - REL (CELLAVISION)(BEAKER) (test 6 % csex=0801) MONOCYTES - REL (CELLAVISION)(BEAKER) (test 6 % cljy=7360) EOSINOPHILS - REL (CELLAVISION)(BEAKER) (test 5 % jvhn=7026) MYELOCYTES - REL (CELLAVISION)(BEAKER) (test 2 % 0-0 fmbe=5079) BANDS - REL (CELLAVISION)(BEAKER) (test 4 % 0-10 nnjd=2009) NEUTROPHILS - ABS (CELLAVISION)(BEAKER) (test 5.54 K/ul 1.78-5.38 thyq=6026) LYMPHOCYTES - ABS (CELLAVISION)(BEAKER) (test 0.43 K/ul 1.32-3.57 gdcf=8808) MONOCYTES - ABS (CELLAVISION)(BEAKER) (test 0.43 K/uL 0.30-0.82 ufcw=0238) EOSINOPHILS - ABS (CELLAVISION)(BEAKER) (test 0.36 K/uL 0.04-0.54 kqvq=7875) MYELOCYTES-ABS (CELLAVISION)(BEAKER) (test 0.14 K/uL 0.00-0.00 vqju=0377) BANDS - ABS (CELLAVISION)(BEAKER) (test 0.29 K/uL 0.00-0.80 nqsn=6085) TOTAL COUNTED (BEAKER) (test hnyr=0431) 100 WBC MORPHOLOGY (BEAKER) (test tyaq=356) Normal PLT MORPHOLOGY (BEAKER) (test wwqd=976) Normal POLYCHROMATOPHILLIC RBCS(BEAKER) (test npzq=198) 3+ many ANISOCYTOSIS (BEAKER) (test ahsl=525) 2+ moderate MACROCYTES (BEAKER) (test nwkq=042) 2+ moderate POIKILOCYTES (BEAKER) (test pyta=263) 3+ many ASHLEY CELLS (BEAKER) (test ebfy=555) 1+ few BASOPHILIC STIPPLING (BEAKER) (test fngl=753) Present ARTIFACT (CELLAVISION)(BEAKER) (test qdhz=7238) Present PLATELET CONCENTRATION (CELLAVISION)(BEAKER) Decreased (test pvld=9194) Received comment: User comments: Slide comments:CALCIUM, [id number] 05:40 :00 Test Item Value Reference Range Comments CALCIUM IONIZED (BEAKER) (test ipry=594) 1.06 mmol/L 1.12-1.27 PH, BLOOD (BEAKER) (test tpmu=2860) 7.48 PROTHROMBIN [id number] 05:09:00 Test Item Value Reference Range Comments PROTIME (BEAKER) (test rdjt=140) 35.0 seconds 11.9-14.2 INR (BEAKER) (test yoos=729) 3.7 <=5.9 Effective 09/16/2018: PT Reference Range ChangeNew: 11.9-14.2 Previous: 11.7- 14.7RECOMMENDED COUMADIN/WARFARIN INR THERAPY RANGESSTANDARD DOSE: 2.0-3.0 Includes: PROPHYLAXIS for venous thrombosis, systemic embolization; TREATMENT for venous thrombosis and/or pulmonary embolus.HIGH RISK: Target INR is2.5-3.5 for patients wiht mechanical heart valves.PT/[id number] 05:09:00 Test Item Value Reference Range Comments PROTIME (BEAKER) (test tkau=066) 35.0 seconds 11.9-14.2 INR (BEAKER) (test eeyj=249) 3.7 <=5.9 PARTIAL THROMBOPLASTIN TIME (BEAKER) (test 56.9 seconds 22.5-36.0 eyye=042) Effective 09/16/2018: PT Reference Range ChangeNew: 11.9-14.2 Previous: 11.7- 14.7RECOMMENDED COUMADIN/WARFARIN INR THERAPY RANGESSTANDARD DOSE: 2.0-3.0 Includes: PROPHYLAXIS for venous thrombosis, systemic embolization; TREATMENT for venous thrombosis and/or pulmonary embolus.HIGH RISK: Target INR is2.5-3.5 for patients wiht mechanical heart valves.[id number] 05:07:00 Test Item Value Reference Range Comments PHOSPHORUS (BEAKER) (test dpry=662) 3.4 mg/dL 2.3-4.7 [id number] 05:07:00 Test Item Value Reference Range Comments MAGNESIUM (BEAKER) (test hhga=936) 2.1 mg/dL 1.6-2.6 COMPREHENSIVE METABOLIC [id number] 05:07:00 Test Item Value Reference Range Comments TOTAL PROTEIN (BEAKER) 6.0 gm/dL 6.0-8.3 (test rtoj=232) ALBUMIN (BEAKER) (test 3.0 g/dL 3.5-5.0 tqob=0699) ALKALINE PHOSPHATASE 110 U/L 40-150 (BEAKER) (test tnsx=569) BILIRUBIN TOTAL (BEAKER) 13.7 mg/dL 0.2-1.2 (test dknw=674) SODIUM (BEAKER) (test 133 meq/L 136-145 iemx=342) POTASSIUM (BEAKER) (test 3.8 meq/L 3.5-5.1 slyz=884) CHLORIDE (BEAKER) (test 104 meq/L 98-107 ulso=832) CO2 (BEAKER) (test 23 meq/L 22-29 vkhz=090) BLOOD UREA NITROGEN 36 mg/dL 7-21 (BEAKER) (test jnoe=133) CREATININE (BEAKER) (test 1.72 mg/dL 0.57-1.25 kqlz=727) GLUCOSE RANDOM (BEAKER) 125 mg/dL 70-105 (test legs=675) CALCIUM (BEAKER) (test 8.5 mg/dL 8.4-10.2 wchd=516) AST (SGOT) (BEAKER) (test 46 U/L 5-34 gpiq=183) ALT (SGPT) (BEAKER) (test 30 U/L 6-55 xnlc=396) EGFR (BEAKER) (test 42 mL/min/1.73 sq m ESTIMATED GFR IS NOT abux=6089) ACCURATE CREATININE CLEARANCE IN PREDICTING GLOMERULAR FILTRATION RATE. ESTIMATED GFR IS NOT APPLICABLE FOR DIALYSIS PATIENTS. Specimen markedly ictericHEPATIC FUNCTION [id number] 05:07:00 Test Item Value Reference Range Comments TOTAL PROTEIN (BEAKER) (test gmhk=415) 6.0 gm/dL 6.0-8.3 ALBUMIN (BEAKER) (test hcwi=9170) 3.0 g/dL 3.5-5.0 BILIRUBIN TOTAL (BEAKER) (test qwel=323) 13.7 mg/dL 0.2-1.2 BILIRUBIN DIRECT (BEAKER) (test uojm=849) 5.8 mg/dL 0.1-0.5 ALKALINE PHOSPHATASE (BEAKER) (test avta=202) 110 U/L 40-150 AST (SGOT) (BEAKER) (test ocqr=516) 46 U/L 5-34 ALT (SGPT) (BEAKER) (test wzny=063) 30 U/L 6-55 Specimen markedly ictericCBC (HEMOGRAM ONLY)2019-04-06 04:54:00 Test Item Value Reference Range Comments WHITE BLOOD CELL COUNT (BEAKER) (test tyhx=495) 7.2 K/ L 3.5-10.5 RED BLOOD CELL COUNT (BEAKER) (test xqcw=003) 1.91 M/ L 4.63-6.08 HEMOGLOBIN (BEAKER) (test pdzi=057) 6.8 GM/DL 13.7-17.5 HEMATOCRIT (BEAKER) (test vctt=084) 21.2 % 40.1-51.0 MEAN CORPUSCULAR VOLUME (BEAKER) (test jqiy=480) 111.0 fL 79.0-92.2 MEAN CORPUSCULAR HEMOGLOBIN (BEAKER) (test 35.6 pg 25.7-32.2 elgk=475) MEAN CORPUSCULAR HEMOGLOBIN CONC (BEAKER) (test 32.1 GM/DL 32.3-36.5 zbbt=760) RED CELL DISTRIBUTION WIDTH (BEAKER) (test 21.6 % 11.6-14.4 akmh=140) PLATELET COUNT (BEAKER) (test mtdc=029) 32 K/CU MM 150-450 MEAN PLATELET VOLUME (BEAKER) (test iazw=160) 11.9 fL 9.4-12.4 NUCLEATED RED BLOOD CELLS (BEAKER) (test 0 /100 WBC 0-0 lpwg=689) VANCOMYCIN LEVEL, [id number] 23:18:00 Test Item Value Reference Range Comments VANCOMYCIN TROUGH (BEAKER) (test ioqr=412) 27.4 ug/mL 10.0-20.0 Wait for result before giving dose. HOLD vancomycin if trough >20CBC ( HEMOGRAM ONLY)2019-04-05 17:03:00 Test Item Value Reference Range Comments WHITE BLOOD CELL COUNT (BEAKER) (test evcv=375) 5.8 K/ L 3.5-10.5 RED BLOOD CELL COUNT (BEAKER) (test rxwl=818) 1.88 M/ L 4.63-6.08 HEMOGLOBIN (BEAKER) (test jrpd=802) 6.8 GM/DL 13.7-17.5 HEMATOCRIT (BEAKER) (test fyyr=688) 20.8 % 40.1-51.0 MEAN CORPUSCULAR VOLUME (BEAKER) (test uthi=613) 110.6 fL 79.0-92.2 MEAN CORPUSCULAR HEMOGLOBIN (BEAKER) (test 36.2 pg 25.7-32.2 jvzx=649) MEAN CORPUSCULAR HEMOGLOBIN CONC (BEAKER) (test 32.7 GM/DL 32.3-36.5 aelt=792) RED CELL DISTRIBUTION WIDTH (BEAKER) (test 21.3 % 11.6-14.4 wwet=192) PLATELET COUNT (BEAKER) (test vucl=042) 29 K/CU MM 150-450 MEAN PLATELET VOLUME (BEAKER) (test cekd=097) 11.4 fL 9.4-12.4 NUCLEATED RED BLOOD CELLS (BEAKER) (test 0 /100 WBC 0-0 dwig=524) RAD, CHEST, 2 [id number] 14:45:00Reason for exam:->chest pain, new feverFINAL REPORT INDICATION: chest pain, new fever COMPARISON: March 31, 2019 TECHNIQUE: Frontal and lateral views of the chest. FINDINGS: Lungs and pleura: Clear lungs. No effusion.Heart and mediastinum: Normal heart size. Unremarkable mediastinal contours.Osseous structures: Noacute abnormality.Additional findings: None. IMPRESSION: No acute intrathoracic abnormality. Signed: Zeenat Michele MDRbrandon Verified Date/ Time: 04/05/2019 14:45:36 Reading Location: [facility] Radiology Reading Room 02: 45 [id number] 09:07:00 Test Item Value Reference Range Comments MAGNESIUM (BEAKER) (test rxkq=583) 2.1 mg/dL 1.6-2.6 COMPREHENSIVE METABOLIC [id number] 09:07:00 Test Item Value Reference Range Comments TOTAL PROTEIN (BEAKER) 6.3 gm/dL 6.0-8.3 (test mblg=667) ALBUMIN (BEAKER) (test 3.1 g/dL 3.5-5.0 crsv=8785) ALKALINE PHOSPHATASE 115 U/L 40-150 (BEAKER) (test irnm=286) BILIRUBIN TOTAL (BEAKER) 14.2 mg/dL 0.2-1.2 (test pocp=975) SODIUM (BEAKER) (test 134 meq/L 136-145 qfcb=063) POTASSIUM (BEAKER) (test 4.1 meq/L 3.5-5.1 waia=846) CHLORIDE (BEAKER) (test 102 meq/L 98-107 xrzm=646) CO2 (BEAKER) (test 25 meq/L 22-29 mdjk=400) BLOOD UREA NITROGEN 29 mg/dL 7-21 (BEAKER) (test apst=559) CREATININE (BEAKER) (test 1.51 mg/dL 0.57-1.25 dlet=127) GLUCOSE RANDOM (BEAKER) 79 mg/dL 70-105 (test xzka=714) CALCIUM (BEAKER) (test 8.6 mg/dL 8.4-10.2 lplq=932) AST (SGOT) (BEAKER) (test 57 U/L 5-34 dxvq=758) ALT (SGPT) (BEAKER) (test 34 U/L 6-55 wers=276) EGFR (BEAKER) (test 49 mL/min/1.73 sq m ESTIMATED GFR IS NOT jeio=1127) ACCURATE CREATININE CLEARANCE IN PREDICTING GLOMERULAR FILTRATION RATE. ESTIMATED GFR IS NOT APPLICABLE FOR DIALYSIS PATIENTS. Specimen markedly ictericHEPATIC FUNCTION [id number] 09:07:00 Test Item Value Reference Range Comments TOTAL PROTEIN (BEAKER) (test dklh=704) 6.3 gm/dL 6.0-8.3 ALBUMIN (BEAKER) (test swli=0376) 3.1 g/dL 3.5-5.0 BILIRUBIN TOTAL (BEAKER) (test haas=569) 14.2 mg/dL 0.2-1.2 BILIRUBIN DIRECT (BEAKER) (test hphu=622) 5.2 mg/dL 0.1-0.5 ALKALINE PHOSPHATASE (BEAKER) (test nweh=127) 115 U/L 40-150 AST (SGOT) (BEAKER) (test lazq=123) 57 U/L 5-34 ALT (SGPT) (BEAKER) (test grrv=574) 34 U/L 6-55 Specimen markedly ictericCBC (HEMOGRAM ONLY)2019-04-05 08:49:00 Test Item Value Reference Range Comments WHITE BLOOD CELL COUNT (BEAKER) (test vdfx=412) 6.2 K/ L 3.5-10.5 RED BLOOD CELL COUNT (BEAKER) (test tzpr=894) 2.00 M/ L 4.63-6.08 HEMOGLOBIN (BEAKER) (test rimt=870) 7.1 GM/DL 13.7-17.5 HEMATOCRIT (BEAKER) (test xxnp=871) 22.1 % 40.1-51.0 MEAN CORPUSCULAR VOLUME (BEAKER) (test xxpc=639) 110.5 fL 79.0-92.2 MEAN CORPUSCULAR HEMOGLOBIN (BEAKER) (test 35.5 pg 25.7-32.2 zzcf=066) MEAN CORPUSCULAR HEMOGLOBIN CONC (BEAKER) (test 32.1 GM/DL 32.3-36.5 mass=790) RED CELL DISTRIBUTION WIDTH (BEAKER) (test 21.2 % 11.6-14.4 ymeg=844) PLATELET COUNT (BEAKER) (test bqta=309) 32 K/CU MM 150-450 MEAN PLATELET VOLUME (BEAKER) (test agga=573) 10.4 fL 9.4-12.4 NUCLEATED RED BLOOD CELLS (BEAKER) (test 0 /100 WBC 0-0 qsyh=225) PROTHROMBIN [id number] 08:34:00 Test Item Value Reference Range Comments PROTIME (BEAKER) (test ntxs=182) 31.8 seconds 11.9-14.2 INR (BEAKER) (test pisu=622) 3.3 <=5.9 Effective 09/16/2018: PT Reference Range ChangeNew: 11.9-14.2 Previous: 11.7- 14.7RECOMMENDED COUMADIN/WARFARIN INR THERAPY RANGESSTANDARD DOSE: 2.0-3.0 Includes: PROPHYLAXIS for venous thrombosis, systemic embolization; TREATMENT for venous thrombosis and/or pulmonary embolus.HIGH RISK: Target INR is2.5-3.5 for patients wiht mechanical heart valves.URINALYSIS W/ REFLEX URINE [id number] 03:24:00 Test Item Value Reference Range Comments COLOR (BEAKER) (test dqga=678) Dark Yellow CLARITY (BEAKER) (test bnxt=078) Clear SPECIFIC GRAVITY UA (BEAKER) (test pfyd=784) 1.016 1.001-1.035 PH UA (BEAKER) (test gvpa=932) 5.5 5.0-8.0 PROTEIN UA (BEAKER) (test ytdx=275) 70 mg/dL Negative GLUCOSE UA (BEAKER) (test qhhb=971) Negative Negative KETONES UA (BEAKER) (test pxuh=040) Trace Negative BILIRUBIN UA (BEAKER) (test dlat=285) Positive Negative BLOOD UA (BEAKER) (test cote=228) Small Negative NITRITE UA (BEAKER) (test tljg=083) Negative Negative LEUKOCYTE ESTERASE UA (BEAKER) (test gals=447) Negative Negative UROBILINOGEN UA (BEAKER) (test kzjz=028) 0.2 mg/dL 0.2-1.0 RBC UA (BEAKER) (test syam=612) 1 /HPF WBC UA (BEAKER) (test bfkg=413) 2 /HPF BACTERIA (BEAKER) (test shrl=453) Few SQUAMOUS EPITHELIAL (BEAKER) (test lexx=138) 1 /HPF SOURCE(BEAKER) (test tbgu=1677) [id number] 01:23:00 Test Item Value Reference Range Comments PROTIME (BEAKER) (test awsm=861) 30.1 seconds 11.9-14.2 INR (BEAKER) (test gmlv=046) 3.0 <=5.9 PARTIAL THROMBOPLASTIN TIME (BEAKER) (test 49.8 seconds 22.5-36.0 zkll=924) Effective 09/16/2018: PT Reference Range ChangeNew: 11.9-14.2 Previous: 11.7- 14.7RECOMMENDED COUMADIN/WARFARIN INR THERAPY RANGESSTANDARD DOSE: 2.0-3.0 Includes: PROPHYLAXIS for venous thrombosis, systemic embolization; TREATMENT for venous thrombosis and/or pulmonary embolus.HIGH RISK: Target INR is2.5-3.5 for patients wiht mechanical heart valves.PROTHROMBIN [id number] 01:22: 00 Test Item Value Reference Range Comments PROTIME (BEAKER) (test unpw=543) 30.1 seconds 11.9-14.2 INR (BEAKER) (test hhll=757) 3.0 <=5.9 Effective 09/16/2018: PT Reference Range ChangeNew: 11.9-14.2 Previous: 11.7- 14.7RECOMMENDED COUMADIN/WARFARIN INR THERAPY RANGESSTANDARD DOSE: 2.0-3.0 Includes: PROPHYLAXIS for venous thrombosis, systemic embolization; TREATMENT for venous thrombosis and/or pulmonary embolus.HIGH RISK: Target INR is2.5-3.5 for patients wiht mechanical heart valves.TROPONIN [id number] 00:00:00 Test Item Value Reference Range Comments TROPONIN I (BEAKER) (test susv=079) 0.05 ng/mL 0.00-0.03 Troponin I (TnI) levels [...] acute neurological disease, and persistent tachyarrhythmia.COMPREHENSIVE METABOLIC [id number] 23:54:00 Test Item Value Reference Range Comments TOTAL PROTEIN (BEAKER) 6.2 gm/dL 6.0-8.3 (test gafu=540) ALBUMIN (BEAKER) (test 2.8 g/dL 3.5-5.0 pzuw=8452) ALKALINE PHOSPHATASE 125 U/L 40-150 (BEAKER) (test souy=449) BILIRUBIN TOTAL (BEAKER) 11.7 mg/dL 0.2-1.2 (test lbtc=537) SODIUM (BEAKER) (test 132 meq/L 136-145 tilx=018) POTASSIUM (BEAKER) (test 3.9 meq/L 3.5-5.1 rxci=645) CHLORIDE (BEAKER) (test 102 meq/L 98-107 igrr=568) CO2 (BEAKER) (test 23 meq/L 22-29 yyzf=072) BLOOD UREA NITROGEN 22 mg/dL 7-21 (BEAKER) (test xsgk=073) CREATININE (BEAKER) (test 1.16 mg/dL 0.57-1.25 jeok=997) GLUCOSE RANDOM (BEAKER) 130 mg/dL 70-105 (test eneq=594) CALCIUM (BEAKER) (test 8.2 mg/dL 8.4-10.2 jgcr=199) AST (SGOT) (BEAKER) (test 58 U/L 5-34 uxnm=988) ALT (SGPT) (BEAKER) (test 35 U/L 6-55 jkkc=536) EGFR (BEAKER) (test 66 mL/min/1.73 sq m ESTIMATED GFR IS NOT pyfq=4651) ACCURATE CREATININE CLEARANCE IN PREDICTING GLOMERULAR FILTRATION RATE. ESTIMATED GFR IS NOT APPLICABLE FOR DIALYSIS PATIENTS. Specimen markedly ictericLACTIC ACID, [id number] 23:48:00 Test Item Value Reference Range Comments LACTATE BLOOD VENOUS (2) 1.3 mmol/L 0.5-2.2 Specimen slightly hemolyzed (BEAKER) (test elbu=1232) Specimen markedly ictericCBC W/PLT COUNT & AUTO [id number] 23:03 :00 Test Item Value Reference Range Comments WHITE BLOOD CELL COUNT (BEAKER) (test vpau=986) 12.3 K/ L 3.5-10.5 RED BLOOD CELL COUNT (BEAKER) (test sjaf=802) 1.83 M/ L 4.63-6.08 HEMOGLOBIN (BEAKER) (test gcys=241) 6.6 GM/DL 13.7-17.5 HEMATOCRIT (BEAKER) (test qkec=234) 20.3 % 40.1-51.0 MEAN CORPUSCULAR VOLUME (BEAKER) (test adjj=966) 110.9 fL 79.0-92.2 MEAN CORPUSCULAR HEMOGLOBIN (BEAKER) (test 36.1 pg 25.7-32.2 hvmi=390) MEAN CORPUSCULAR HEMOGLOBIN CONC (BEAKER) (test 32.5 GM/DL 32.3-36.5 gpqo=143) RED CELL DISTRIBUTION WIDTH (BEAKER) (test 20.8 % 11.6-14.4 vxcn=138) PLATELET COUNT (BEAKER) (test fujt=003) 40 K/CU MM 150-450 MEAN PLATELET VOLUME (BEAKER) (test jnnc=041) 11.4 fL 9.4-12.4 NUCLEATED RED BLOOD CELLS (BEAKER) (test 0 /100 WBC 0-0 ergj=602) NEUTROPHILS RELATIVE PERCENT (BEAKER) (test 88 % moqx=233) LYMPHOCYTES RELATIVE PERCENT (BEAKER) (test 4 % gujr=360) MONOCYTES RELATIVE PERCENT (BEAKER) (test 6 % zjxt=005) EOSINOPHILS RELATIVE PERCENT (BEAKER) (test 1 % ryyn=590) BASOPHILS RELATIVE PERCENT (BEAKER) (test 0 % wzzf=430) NEUTROPHILS ABSOLUTE COUNT (BEAKER) (test 10.85 K/ L 1.78-5.38 typl=984) LYMPHOCYTES ABSOLUTE COUNT (BEAKER) (test 0.50 K/ L 1.32-3.57 mrqc=050) MONOCYTES ABSOLUTE COUNT (BEAKER) (test hnwy=827) 0.71 K/ L 0.30-0.82 EOSINOPHILS ABSOLUTE COUNT (BEAKER) (test 0.09 K/ L 0.04-0.54 zwuf=415) BASOPHILS ABSOLUTE COUNT (BEAKER) (test pxkc=903) 0.02 K/ L 0.01-0.08 IMMATURE GRANULOCYTES-RELATIVE PERCENT (BEAKER) 1 % 0-1 (test rhud=0048) BLOOD [id number] 18:00:00 Test Item Value Reference Range Comments CULTURE (BEAKER) (test zjum=0954) No growth in 5 days BLOOD [id number] 18:00:00 Test Item Value Reference Range Comments CULTURE (BEAKER) (test wdmn=8798) No growth in 5 days PT/[id number] 17:37:00 Test Item Value Reference Range Comments PROTIME (BEAKER) (test inem=387) 28.4 seconds 11.9-14.2 INR (BEAKER) (test ybto=970) 2.9 <=5.9 PARTIAL THROMBOPLASTIN TIME (BEAKER) (test 47.5 seconds 22.5-36.0 xfko=309) Effective 09/16/2018: PT Reference Range ChangeNew: 11.9-14.2 Previous: 11.7- 14.7RECOMMENDED COUMADIN/WARFARIN INR THERAPY RANGESSTANDARD DOSE: 2.0-3.0 Includes: PROPHYLAXIS for venous thrombosis, systemic embolization; TREATMENT for venous thrombosis and/or pulmonary embolus.HIGH RISK: Target INR is2.5-3.5 for patients wiht mechanical heart valves.CBC (HEMOGRAM ONLY)2019-04-04 17:35:00 Test Item Value Reference Range Comments WHITE BLOOD CELL COUNT (BEAKER) (test fifx=913) 9.7 K/ L 3.5-10.5 RED BLOOD CELL COUNT (BEAKER) (test eqxt=709) 1.90 M/ L 4.63-6.08 HEMOGLOBIN (BEAKER) (test arli=733) 6.9 GM/DL 13.7-17.5 HEMATOCRIT (BEAKER) (test knhm=156) 20.7 % 40.1-51.0 MEAN CORPUSCULAR VOLUME (BEAKER) (test tmmk=697) 108.9 fL 79.0-92.2 MEAN CORPUSCULAR HEMOGLOBIN (BEAKER) (test 36.3 pg 25.7-32.2 fdtr=813) MEAN CORPUSCULAR HEMOGLOBIN CONC (BEAKER) (test 33.3 GM/DL 32.3-36.5 zthm=040) RED CELL DISTRIBUTION WIDTH (BEAKER) (test 20.6 % 11.6-14.4 pewz=084) PLATELET COUNT (BEAKER) (test rmrj=281) 46 K/CU MM 150-450 MEAN PLATELET VOLUME (BEAKER) (test fyrm=458) 11.1 fL 9.4-12.4 NUCLEATED RED BLOOD CELLS (BEAKER) (test 0 /100 WBC 0-0 oiif=981) [id number] 07:14:00 Test Item Value Reference Range Comments MAGNESIUM (BEAKER) (test xqhy=842) 2.3 mg/dL 1.6-2.6 BASIC METABOLIC [id number] 07:14:00 Test Item Value Reference Range Comments SODIUM (BEAKER) (test 135 meq/L 136-145 blbn=416) POTASSIUM (BEAKER) (test 3.9 meq/L 3.5-5.1 ngan=321) CHLORIDE (BEAKER) (test 105 meq/L 98-107 iryv=379) CO2 (BEAKER) (test 24 meq/L 22-29 xzye=671) BLOOD UREA NITROGEN 23 mg/dL 7-21 (BEAKER) (test mmnw=404) CREATININE (BEAKER) (test 0.85 mg/dL 0.57-1.25 odpw=346) GLUCOSE RANDOM (BEAKER) 121 mg/dL 70-105 (test ukhc=719) CALCIUM (BEAKER) (test 8.4 mg/dL 8.4-10.2 llnd=206) EGFR (BEAKER) (test 94 mL/min/1.73 sq m ESTIMATED GFR IS NOT shvp=4880) ACCURATE CREATININE CLEARANCE IN PREDICTING GLOMERULAR FILTRATION RATE. ESTIMATED GFR IS NOT APPLICABLE FOR DIALYSIS PATIENTS. Specimen markedly ictericHEPATIC FUNCTION [id number] 07:14:00 Test Item Value Reference Range Comments TOTAL PROTEIN (BEAKER) (test vkyh=952) 6.5 gm/dL 6.0-8.3 ALBUMIN (BEAKER) (test oalc=9648) 3.0 g/dL 3.5-5.0 BILIRUBIN TOTAL (BEAKER) (test nkbp=432) 11.0 mg/dL 0.2-1.2 BILIRUBIN DIRECT (BEAKER) (test gswm=064) 4.5 mg/dL 0.1-0.5 ALKALINE PHOSPHATASE (BEAKER) (test iqmg=409) 156 U/L 40-150 AST (SGOT) (BEAKER) (test hvqx=532) 59 U/L 5-34 ALT (SGPT) (BEAKER) (test okvp=803) 39 U/L 6-55 Specimen markedly ictericCBC W/PLT COUNT & AUTO [id number] 06:57 :00 Test Item Value Reference Range Comments WHITE BLOOD CELL COUNT (BEAKER) (test cpih=570) 6.4 K/ L 3.5-10.5 RED BLOOD CELL COUNT (BEAKER) (test dahs=315) 1.95 M/ L 4.63-6.08 HEMOGLOBIN (BEAKER) (test bprv=340) 7.0 GM/DL 13.7-17.5 HEMATOCRIT (BEAKER) (test zhub=145) 21.3 % 40.1-51.0 MEAN CORPUSCULAR VOLUME (BEAKER) (test pcvd=487) 109.2 fL 79.0-92.2 MEAN CORPUSCULAR HEMOGLOBIN (BEAKER) (test 35.9 pg 25.7-32.2 rmws=316) MEAN CORPUSCULAR HEMOGLOBIN CONC (BEAKER) (test 32.9 GM/DL 32.3-36.5 rghw=566) RED CELL DISTRIBUTION WIDTH (BEAKER) (test 20.3 % 11.6-14.4 jhvh=878) PLATELET COUNT (BEAKER) (test cgfl=828) 48 K/CU MM 150-450 MEAN PLATELET VOLUME (BEAKER) (test opvq=055) 11.0 fL 9.4-12.4 NUCLEATED RED BLOOD CELLS (BEAKER) (test 0 /100 WBC 0-0 gwdw=790) NEUTROPHILS RELATIVE PERCENT (BEAKER) (test 68 % ltuq=494) LYMPHOCYTES RELATIVE PERCENT (BEAKER) (test 16 % hgjb=389) MONOCYTES RELATIVE PERCENT (BEAKER) (test 11 % ouix=205) EOSINOPHILS RELATIVE PERCENT (BEAKER) (test 4 % qzah=640) BASOPHILS RELATIVE PERCENT (BEAKER) (test 0 % thwu=386) NEUTROPHILS ABSOLUTE COUNT (BEAKER) (test 4.34 K/ L 1.78-5.38 tmtm=423) LYMPHOCYTES ABSOLUTE COUNT (BEAKER) (test 1.01 K/ L 1.32-3.57 haki=118) MONOCYTES ABSOLUTE COUNT (BEAKER) (test kgad=426) 0.67 K/ L 0.30-0.82 EOSINOPHILS ABSOLUTE COUNT (BEAKER) (test 0.23 K/ L 0.04-0.54 jbfq=915) BASOPHILS ABSOLUTE COUNT (BEAKER) (test reos=369) 0.01 K/ L 0.01-0.08 IMMATURE GRANULOCYTES-RELATIVE PERCENT (BEAKER) 2 % 0-1 (test qhfr=0195) CBC (HEMOGRAM ONLY)2019-04-04 06:50:00 Test Item Value Reference Range Comments WHITE BLOOD CELL COUNT (BEAKER) (test vaqw=752) 6.4 K/ L 3.5-10.5 RED BLOOD CELL COUNT (BEAKER) (test imxr=900) 1.95 M/ L 4.63-6.08 HEMOGLOBIN (BEAKER) (test neny=020) 7.0 GM/DL 13.7-17.5 HEMATOCRIT (BEAKER) (test ugpy=005) 21.3 % 40.1-51.0 MEAN CORPUSCULAR VOLUME (BEAKER) (test gfzi=612) 109.2 fL 79.0-92.2 MEAN CORPUSCULAR HEMOGLOBIN (BEAKER) (test 35.9 pg 25.7-32.2 jaaf=564) MEAN CORPUSCULAR HEMOGLOBIN CONC (BEAKER) (test 32.9 GM/DL 32.3-36.5 vpdr=972) RED CELL DISTRIBUTION WIDTH (BEAKER) (test 20.3 % 11.6-14.4 ygeg=328) PLATELET COUNT (BEAKER) (test edio=991) 48 K/CU MM 150-450 MEAN PLATELET VOLUME (BEAKER) (test xwlm=357) 11.0 fL 9.4-12.4 NUCLEATED RED BLOOD CELLS (BEAKER) (test 0 /100 WBC 0-0 pfkr=696) [id number] 06:44:00 Test Item Value Reference Range Comments PROTIME (BEAKER) (test sxgr=018) 28.0 seconds 11.9-14.2 INR (BEAKER) (test icrj=647) 2.8 <=5.9 PARTIAL THROMBOPLASTIN TIME (BEAKER) (test 45.9 seconds 22.5-36.0 wcte=623) Effective 09/16/2018: PT Reference Range ChangeNew: 11.9-14.2 Previous: 11.7- 14.7RECOMMENDED COUMADIN/WARFARIN INR THERAPY RANGESSTANDARD DOSE: 2.0-3.0 Includes: PROPHYLAXIS for venous thrombosis, systemic embolization; TREATMENT for venous thrombosis and/or pulmonary embolus.HIGH RISK: Target INR is2.5-3.5 for patients wiht mechanical heart valves.PROTHROMBIN [id number] 06:43: 00 Test Item Value Reference Range Comments PROTIME (BEAKER) (test hhpe=338) 28.0 seconds 11.9-14.2 INR (BEAKER) (test guul=584) 2.8 <=5.9 Effective 09/16/2018: PT Reference Range ChangeNew: 11.9-14.2 Previous: 11.7- 14.7RECOMMENDED COUMADIN/WARFARIN INR THERAPY RANGESSTANDARD DOSE: 2.0-3.0 Includes: PROPHYLAXIS for venous thrombosis, systemic embolization; TREATMENT for venous thrombosis and/or pulmonary embolus.HIGH RISK: Target INR is2.5-3.5 for patients wiht mechanical heart valves.CBC (HEMOGRAM ONLY)2019-04-03 16:52:00 Test Item Value Reference Range Comments WHITE BLOOD CELL COUNT (BEAKER) (test uhcm=501) 7.2 K/ L 3.5-10.5 RED BLOOD CELL COUNT (BEAKER) (test bsem=429) 2.14 M/ L 4.63-6.08 HEMOGLOBIN (BEAKER) (test taiz=756) 7.4 GM/DL 13.7-17.5 HEMATOCRIT (BEAKER) (test wrzc=331) 23.5 % 40.1-51.0 MEAN CORPUSCULAR VOLUME (BEAKER) (test tnia=274) 109.8 fL 79.0-92.2 MEAN CORPUSCULAR HEMOGLOBIN (BEAKER) (test 34.6 pg 25.7-32.2 hwpd=246) MEAN CORPUSCULAR HEMOGLOBIN CONC (BEAKER) (test 31.5 GM/DL 32.3-36.5 aotl=805) RED CELL DISTRIBUTION WIDTH (BEAKER) (test 21.0 % 11.6-14.4 xmsf=093) PLATELET COUNT (BEAKER) (test cusz=323) 42 K/CU MM 150-450 MEAN PLATELET VOLUME (BEAKER) (test gfxk=692) 11.1 fL 9.4-12.4 NUCLEATED RED BLOOD CELLS (BEAKER) (test 0 /100 WBC 0-0 cavm=424) SPUTUM CULTURE + GRAM [id number] 12:28:00 Test Item Value Reference Range Comments CULTURE (BEAKER) (test <1+ Normal respiratory liliane wnkr=7147) present GRAM STAIN RESULT (BEAKER) 2+ WBCs (test pbbe=1955) GRAM STAIN RESULT (BEAKER) 0-5 epithelial cells (test oomb=65195) GRAM STAIN RESULT (BEAKER) <1+ gram positive cocci in pairs (test lkur=13333) MRSA [id number] 12:23:00 Test Item Value Reference Range Comments CULTURE (BEAKER) (test wwxg=8144) No MRSA isolated [id number] 05:36:00 Test Item Value Reference Range Comments MAGNESIUM (BEAKER) (test wtuf=215) 2.7 mg/dL 1.6-2.6 BASIC METABOLIC [id number] 05:36:00 Test Item Value Reference Range Comments SODIUM (BEAKER) (test 132 meq/L 136-145 rxtf=073) POTASSIUM (BEAKER) (test 4.2 meq/L 3.5-5.1 ruyo=961) CHLORIDE (BEAKER) (test 103 meq/L 98-107 sgvq=882) CO2 (BEAKER) (test 24 meq/L 22-29 vzdr=858) BLOOD UREA NITROGEN 36 mg/dL 7-21 (BEAKER) (test tzsi=236) CREATININE (BEAKER) (test 1.00 mg/dL 0.57-1.25 xhlq=977) GLUCOSE RANDOM (BEAKER) 102 mg/dL 70-105 (test gbeg=275) CALCIUM (BEAKER) (test 8.6 mg/dL 8.4-10.2 mthh=184) EGFR (BEAKER) (test 78 mL/min/1.73 sq m ESTIMATED GFR IS NOT hfea=9694) ACCURATE CREATININE CLEARANCE IN PREDICTING GLOMERULAR FILTRATION RATE. ESTIMATED GFR IS NOT APPLICABLE FOR DIALYSIS PATIENTS. Specimen markedly ictericHEPATIC FUNCTION [id number] 05:36:00 Test Item Value Reference Range Comments TOTAL PROTEIN (BEAKER) (test elot=717) 6.6 gm/dL 6.0-8.3 ALBUMIN (BEAKER) (test cftn=9080) 3.0 g/dL 3.5-5.0 BILIRUBIN TOTAL (BEAKER) (test nitk=631) 13.0 mg/dL 0.2-1.2 BILIRUBIN DIRECT (BEAKER) (test zurt=224) 5.0 mg/dL 0.1-0.5 ALKALINE PHOSPHATASE (BEAKER) (test qpzk=696) 162 U/L 40-150 AST (SGOT) (BEAKER) (test yyov=864) 57 U/L 5-34 ALT (SGPT) (BEAKER) (test cqab=698) 41 U/L 6-55 Specimen markedly [id number] 05:07:00 Test Item Value Reference Range Comments FIBRINOGEN LEVEL (BEAKER) (test cjyn=509) 147 mg/dl 225-434 PT/[id number] 05:03:00 Test Item Value Reference Range Comments PROTIME (BEAKER) (test ifgm=737) 26.4 seconds 11.9-14.2 INR (BEAKER) (test iwyd=946) 2.6 <=5.9 PARTIAL THROMBOPLASTIN TIME (BEAKER) (test 46.2 seconds 22.5-36.0 tywg=739) Effective 09/16/2018: PT Reference Range ChangeNew: 11.9-14.2 Previous: 11.7- 14.7RECOMMENDED COUMADIN/WARFARIN INR THERAPY RANGESSTANDARD DOSE: 2.0-3.0 Includes: PROPHYLAXIS for venous thrombosis, systemic embolization; TREATMENT for venous thrombosis and/or pulmonary embolus.HIGH RISK: Target INR is2.5-3.5 for patients wiht mechanical heart valves.PROTHROMBIN [id number] 05:02: 00 Test Item Value Reference Range Comments PROTIME (BEAKER) (test irkw=333) 26.4 seconds 11.9-14.2 INR (BEAKER) (test inpk=200) 2.6 <=5.9 Effective 09/16/2018: PT Reference Range ChangeNew: 11.9-14.2 Previous: 11.7- 14.7RECOMMENDED COUMADIN/WARFARIN INR THERAPY RANGESSTANDARD DOSE: 2.0-3.0 Includes: PROPHYLAXIS for venous thrombosis, systemic embolization; TREATMENT for venous thrombosis and/or pulmonary embolus.HIGH RISK: Target INR is2.5-3.5 for patients wiht mechanical heart valves.CBC (HEMOGRAM ONLY)2019-04-03 04:55:00 Test Item Value Reference Range Comments WHITE BLOOD CELL COUNT (BEAKER) (test nqzz=416) 6.2 K/ L 3.5-10.5 RED BLOOD CELL COUNT (BEAKER) (test jokb=021) 2.03 M/ L 4.63-6.08 HEMOGLOBIN (BEAKER) (test vfhz=144) 7.1 GM/DL 13.7-17.5 HEMATOCRIT (BEAKER) (test ypan=944) 21.8 % 40.1-51.0 MEAN CORPUSCULAR VOLUME (BEAKER) (test oapk=179) 107.4 fL 79.0-92.2 MEAN CORPUSCULAR HEMOGLOBIN (BEAKER) (test 35.0 pg 25.7-32.2 ytqs=172) MEAN CORPUSCULAR HEMOGLOBIN CONC (BEAKER) (test 32.6 GM/DL 32.3-36.5 zhmf=334) RED CELL DISTRIBUTION WIDTH (BEAKER) (test 21.3 % 11.6-14.4 qssz=308) PLATELET COUNT (BEAKER) (test tklf=451) 47 K/CU MM 150-450 MEAN PLATELET VOLUME (BEAKER) (test cixk=892) 11.3 fL 9.4-12.4 NUCLEATED RED BLOOD CELLS (BEAKER) (test 0 /100 WBC 0-0 bubd=985) CBC (HEMOGRAM ONLY)2019-04-02 22:21:00 Test Item Value Reference Range Comments WHITE BLOOD CELL COUNT (BEAKER) (test uejz=030) 5.6 K/ L 3.5-10.5 RED BLOOD CELL COUNT (BEAKER) (test ghab=857) 1.99 M/ L 4.63-6.08 HEMOGLOBIN (BEAKER) (test uqql=829) 7.0 GM/DL 13.7-17.5 HEMATOCRIT (BEAKER) (test bxza=825) 21.3 % 40.1-51.0 MEAN CORPUSCULAR VOLUME (BEAKER) (test rroe=126) 107.0 fL 79.0-92.2 MEAN CORPUSCULAR HEMOGLOBIN (BEAKER) (test 35.2 pg 25.7-32.2 sqxa=742) MEAN CORPUSCULAR HEMOGLOBIN CONC (BEAKER) (test 32.9 GM/DL 32.3-36.5 evey=927) RED CELL DISTRIBUTION WIDTH (BEAKER) (test 21.2 % 11.6-14.4 gddn=153) PLATELET COUNT (BEAKER) (test pkin=247) 42 K/CU MM 150-450 MEAN PLATELET VOLUME (BEAKER) (test qowd=467) 10.5 fL 9.4-12.4 NUCLEATED RED BLOOD CELLS (BEAKER) (test 0 /100 WBC 0-0 swtb=029) [id number] 16:52:00 Test Item Value Reference Range Comments MAGNESIUM (BEAKER) (test yigm=959) 2.6 mg/dL 1.6-2.6 BASIC METABOLIC [id number] 16:52:00 Test Item Value Reference Range Comments SODIUM (BEAKER) (test 134 meq/L 136-145 demo=299) POTASSIUM (BEAKER) (test 4.3 meq/L 3.5-5.1 ijea=033) CHLORIDE (BEAKER) (test 103 meq/L 98-107 kbcu=383) CO2 (BEAKER) (test 26 meq/L 22-29 gpyn=020) BLOOD UREA NITROGEN 41 mg/dL 7-21 (BEAKER) (test hlpy=213) CREATININE (BEAKER) (test 1.20 mg/dL 0.57-1.25 kidg=550) GLUCOSE RANDOM (BEAKER) 119 mg/dL 70-105 (test wxdo=334) CALCIUM (BEAKER) (test 8.9 mg/dL 8.4-10.2 mpua=090) EGFR (BEAKER) (test 63 mL/min/1.73 sq m ESTIMATED GFR IS NOT gabq=6812) ACCURATE CREATININE CLEARANCE IN PREDICTING GLOMERULAR FILTRATION RATE. ESTIMATED GFR IS NOT APPLICABLE FOR DIALYSIS PATIENTS. Specimen markedly ictericCBC (HEMOGRAM ONLY)2019-04-02 16:47:00 Test Item Value Reference Range Comments WHITE BLOOD CELL COUNT (BEAKER) (test clwp=454) 5.0 K/ L 3.5-10.5 RED BLOOD CELL COUNT (BEAKER) (test wzaf=198) 2.10 M/ L 4.63-6.08 HEMOGLOBIN (BEAKER) (test lnbj=797) 7.3 GM/DL 13.7-17.5 HEMATOCRIT (BEAKER) (test kgtv=504) 22.4 % 40.1-51.0 MEAN CORPUSCULAR VOLUME (BEAKER) (test kkig=225) 106.7 fL 79.0-92.2 MEAN CORPUSCULAR HEMOGLOBIN (BEAKER) (test 34.8 pg 25.7-32.2 anic=539) MEAN CORPUSCULAR HEMOGLOBIN CONC (BEAKER) (test 32.6 GM/DL 32.3-36.5 pbpz=948) RED CELL DISTRIBUTION WIDTH (BEAKER) (test 20.2 % 11.6-14.4 iski=720) PLATELET COUNT (BEAKER) (test oqvu=055) 44 K/CU MM 150-450 MEAN PLATELET VOLUME (BEAKER) (test olbm=637) 11.2 fL 9.4-12.4 NUCLEATED RED BLOOD CELLS (BEAKER) (test 0 /100 WBC 0-0 cxuw=784) PERIPHERAL BLOOD SMEAR - PATHOLOGIST [id number] 12:50:00 Test Item Value Reference Range Comments PERIPHERAL SMR REVIEW No circulating blasts. No (BEAKER) (test hitg=0041) significantly increased schistocytes. [id number] Benny Gould (BEAKER) (test yjhp=3697) Marjorie(electronic signature) CT, CTA [id number] 11:18:00FINAL REPORT INDICATION :Acute GI bleed. COMPARISON: [...] gastric or duodenal submucosal varices demonstrated. Signed: Yolanda Lott [facility] Verified Date/Time: 04/02/2019 11:18:07 Reading Location: [facility] B1 C013Y CT Body Reading Room Electronically signed by: YOLANDA LOTT M.D. on 2018 11:18 [id number] 08:29:00 Test Item Value Reference Range Comments HAPTOGLOBIN (BEAKER) (test pdeg=881) 23 mg/dL 14-258 LACTATE DEHYDROGENASE (LDH)2019-04-02 08:19:00 Test Item Value Reference Range Comments LACTATE DEHYDROGENASE (BEAKER) (test abaq=012) 366 U/L 125-220 URINALYSIS W/ [id number] 07:31:00 Test Item Value Reference Range Comments COLOR (BEAKER) (test smwb=200) Yellow CLARITY (BEAKER) (test tzzu=072) Clear SPECIFIC GRAVITY UA (BEAKER) (test dylp=991) 1.019 1.001-1.035 PH UA (BEAKER) (test jhky=455) 5.5 5.0-8.0 PROTEIN UA (BEAKER) (test zcuj=772) Negative Negative GLUCOSE UA (BEAKER) (test zunj=910) Negative Negative KETONES UA (BEAKER) (test swzj=499) Negative Negative BILIRUBIN UA (BEAKER) (test ngfz=331) Negative Negative BLOOD UA (BEAKER) (test oysl=048) Moderate Negative NITRITE UA (BEAKER) (test qdgc=625) Negative Negative LEUKOCYTE ESTERASE UA (BEAKER) (test ubzb=453) Negative Negative UROBILINOGEN UA (BEAKER) (test nlpo=162) 0.2 mg/dL 0.2-1.0 RBC UA (BEAKER) (test ssxu=802) 16 /HPF WBC UA (BEAKER) (test tmab=742) 6 /HPF MUCUS (BEAKER) (test bhjo=3379) Rare SQUAMOUS EPITHELIAL (BEAKER) (test koke=896) 1 /HPF SOURCE(BEAKER) (test ytrg=2091) [id number] 04:41:00 Test Item Value Reference Range Comments MAGNESIUM (BEAKER) (test ddag=267) 2.5 mg/dL 1.6-2.6 BASIC METABOLIC [id number] 04:41:00 Test Item Value Reference Range Comments SODIUM (BEAKER) (test 132 meq/L 136-145 vuyi=680) POTASSIUM (BEAKER) (test 4.1 meq/L 3.5-5.1 ydwt=362) CHLORIDE (BEAKER) (test 103 meq/L 98-107 xvqs=375) CO2 (BEAKER) (test 25 meq/L 22-29 csls=083) BLOOD UREA NITROGEN 47 mg/dL 7-21 (BEAKER) (test symd=879) CREATININE (BEAKER) (test 1.42 mg/dL 0.57-1.25 bxsy=826) GLUCOSE RANDOM (BEAKER) 134 mg/dL 70-105 (test jjjg=396) CALCIUM (BEAKER) (test 8.3 mg/dL 8.4-10.2 dmdt=641) EGFR (BEAKER) (test 52 mL/min/1.73 sq m ESTIMATED GFR IS NOT wufw=4477) ACCURATE CREATININE CLEARANCE IN PREDICTING GLOMERULAR FILTRATION RATE. ESTIMATED GFR IS NOT APPLICABLE FOR DIALYSIS PATIENTS. Specimen markedly ictericCBC W/PLT COUNT & AUTO [id number] 04:34 :00 Test Item Value Reference Range Comments WHITE BLOOD CELL COUNT (BEAKER) (test jqno=060) 7.9 K/ L 3.5-10.5 RED BLOOD CELL COUNT (BEAKER) (test ndml=394) 1.85 M/ L 4.63-6.08 HEMOGLOBIN (BEAKER) (test ryyt=456) 6.6 GM/DL 13.7-17.5 HEMATOCRIT (BEAKER) (test bwga=667) 19.8 % 40.1-51.0 MEAN CORPUSCULAR VOLUME (BEAKER) (test hnbe=795) 107.0 fL 79.0-92.2 MEAN CORPUSCULAR HEMOGLOBIN (BEAKER) (test 35.7 pg 25.7-32.2 vvzk=157) MEAN CORPUSCULAR HEMOGLOBIN CONC (BEAKER) (test 33.3 GM/DL 32.3-36.5 hibv=928) RED CELL DISTRIBUTION WIDTH (BEAKER) (test 19.6 % 11.6-14.4 fxmy=633) PLATELET COUNT (BEAKER) (test vclo=850) 38 K/CU MM 150-450 MEAN PLATELET VOLUME (BEAKER) (test mazi=237) 10.4 fL 9.4-12.4 NUCLEATED RED BLOOD CELLS (BEAKER) (test 0 /100 WBC 0-0 irln=114) NEUTROPHILS RELATIVE PERCENT (BEAKER) (test 78 % pddl=145) LYMPHOCYTES RELATIVE PERCENT (BEAKER) (test 12 % birr=447) MONOCYTES RELATIVE PERCENT (BEAKER) (test 9 % xjfk=726) EOSINOPHILS RELATIVE PERCENT (BEAKER) (test 0 % bepa=561) BASOPHILS RELATIVE PERCENT (BEAKER) (test 0 % jzhi=699) NEUTROPHILS ABSOLUTE COUNT (BEAKER) (test 6.17 K/ L 1.78-5.38 dkfw=172) LYMPHOCYTES ABSOLUTE COUNT (BEAKER) (test 0.91 K/ L 1.32-3.57 lsng=342) MONOCYTES ABSOLUTE COUNT (BEAKER) (test slln=495) 0.74 K/ L 0.30-0.82 EOSINOPHILS ABSOLUTE COUNT (BEAKER) (test 0.03 K/ L 0.04-0.54 kivp=644) BASOPHILS ABSOLUTE COUNT (BEAKER) (test vgjn=494) 0.00 K/ L 0.01-0.08 IMMATURE GRANULOCYTES-RELATIVE PERCENT (BEAKER) 1 % 0-1 (test ryva=0565) [id number] 04:31:00 Test Item Value Reference Range Comments FIBRINOGEN LEVEL (BEAKER) (test dfik=596) 122 mg/dl 225-434 [id number] 04:27:00 Test Item Value Reference Range Comments PROTIME (BEAKER) (test fuus=176) 29.2 seconds 11.9-14.2 INR (BEAKER) (test qujk=921) 3.0 <=5.9 PARTIAL THROMBOPLASTIN TIME (BEAKER) (test 48.7 seconds 22.5-36.0 ldcv=638) Effective 09/16/2018: PT Reference Range ChangeNew: 11.9-14.2 Previous: 11.7- 14.7RECOMMENDED COUMADIN/WARFARIN INR THERAPY RANGESSTANDARD DOSE: 2.0-3.0 Includes: PROPHYLAXIS for venous thrombosis, systemic embolization; TREATMENT for venous thrombosis and/or pulmonary embolus.HIGH RISK: Target INR is2.5-3.5 for patients wiht mechanical heart valves.CBC W/PLT COUNT & AUTO [id number] 03:50:00 Test Item Value Reference Range Comments WHITE BLOOD CELL COUNT 8.4 K/ L 3.5-10.5 (BEAKER) (test qnlu=066) RED BLOOD CELL COUNT (BEAKER) 1.81 M/ L 4.63-6.08 (test ojkj=816) HEMOGLOBIN (BEAKER) (test 6.4 GM/DL 13.7-17.5 ctmo=616) HEMATOCRIT (BEAKER) (test 19.1 % 40.1-51.0 ntls=237) MEAN CORPUSCULAR VOLUME 105.5 fL 79.0-92.2 Discordant result compared (BEAKER) (test yjdx=347) to previous result. Clinical correlation required MEAN CORPUSCULAR HEMOGLOBIN 35.4 pg 25.7-32.2 (BEAKER) (test khzp=764) MEAN CORPUSCULAR HEMOGLOBIN 33.5 GM/DL 32.3-36.5 CONC (BEAKER) (test olfm=016) RED CELL DISTRIBUTION WIDTH 19.3 % 11.6-14.4 (BEAKER) (test cijs=285) PLATELET COUNT (BEAKER) (test 40 K/CU MM 150-450 haue=168) MEAN PLATELET VOLUME (BEAKER) 11.4 fL 9.4-12.4 (test dqff=245) NUCLEATED RED BLOOD CELLS 0 /100 WBC 0-0 (BEAKER) (test hyfi=898) NEUTROPHILS RELATIVE PERCENT 79 % (BEAKER) (test wjib=891) LYMPHOCYTES RELATIVE PERCENT 11 % (BEAKER) (test rehj=724) MONOCYTES RELATIVE PERCENT 9 % (BEAKER) (test sykj=210) EOSINOPHILS RELATIVE PERCENT 0 % (BEAKER) (test rfnz=164) BASOPHILS RELATIVE PERCENT 0 % (BEAKER) (test wtwz=975) NEUTROPHILS ABSOLUTE COUNT 6.55 K/ L 1.78-5.38 (BEAKER) (test tiga=119) LYMPHOCYTES ABSOLUTE COUNT 0.91 K/ L 1.32-3.57 (BEAKER) (test rmyg=438) MONOCYTES ABSOLUTE COUNT 0.76 K/ L 0.30-0.82 (BEAKER) (test zsju=343) EOSINOPHILS ABSOLUTE COUNT 0.01 K/ L 0.04-0.54 (BEAKER) (test npje=717) BASOPHILS ABSOLUTE COUNT 0.01 K/ L 0.01-0.08 (BEAKER) (test npww=886) IMMATURE GRANULOCYTES-RELATIVE 1 % 0-1 PERCENT (BEAKER) (test bplu=8850) Review slide. Patient received blood product.SODIUM, RANDOM [id number] 03: 12:00 Test Item Value Reference Range Comments SODIUM URINE (BEAKER) (test mxyy=977) < meq/L Reference Range: No [id number] 03:06:00 Test Item Value Reference Range Comments PHOSPHORUS (BEAKER) (test oism=758) 3.5 mg/dL 2.3-4.7 [id number] 03:06:00 Test Item Value Reference Range Comments MAGNESIUM (BEAKER) (test lrhi=057) 2.4 mg/dL 1.6-2.6 BASIC METABOLIC [id number] 03:06:00 Test Item Value Reference Range Comments SODIUM (BEAKER) (test 127 meq/L 136-145 ubce=521) POTASSIUM (BEAKER) (test 4.0 meq/L 3.5-5.1 ujkv=310) CHLORIDE (BEAKER) (test 99 meq/L 98-107 tgwd=562) CO2 (BEAKER) (test 23 meq/L 22-29 sosv=769) BLOOD UREA NITROGEN 45 mg/dL 7-21 (BEAKER) (test dosu=140) CREATININE (BEAKER) (test 1.37 mg/dL 0.57-1.25 putu=107) GLUCOSE RANDOM (BEAKER) 304 mg/dL 70-105 (test uwgm=545) CALCIUM (BEAKER) (test 8.0 mg/dL 8.4-10.2 ohnl=462) EGFR (BEAKER) (test 54 mL/min/1.73 sq m ESTIMATED GFR IS NOT rmdg=6210) ACCURATE CREATININE CLEARANCE IN PREDICTING GLOMERULAR FILTRATION RATE. ESTIMATED GFR IS NOT APPLICABLE FOR DIALYSIS PATIENTS. Specimen markedly ictericHEPATIC FUNCTION [id number] 03:06:00 Test Item Value Reference Range Comments TOTAL PROTEIN (BEAKER) (test fvzf=402) 5.9 gm/dL 6.0-8.3 ALBUMIN (BEAKER) (test bxho=1161) 2.5 g/dL 3.5-5.0 BILIRUBIN TOTAL (BEAKER) (test mlho=385) 11.8 mg/dL 0.2-1.2 BILIRUBIN DIRECT (BEAKER) (test gbew=582) 4.5 mg/dL 0.1-0.5 ALKALINE PHOSPHATASE (BEAKER) (test yodd=291) 160 U/L 40-150 AST (SGOT) (BEAKER) (test jhjl=588) 61 U/L 5-34 ALT (SGPT) (BEAKER) (test cmgt=590) 40 U/L 6-55 Specimen markedly ictericCREATINE KINASE (CK)2019-04-02 03:06:00 Test Item Value Reference Range Comments CREATINE KINASE TOTAL (BEAKER) (test rnlf=865) 92 U/L 29-200 CREATININE, RANDOM [id number] 03:01:00 Test Item Value Reference Range Comments CREATININE URINE (BEAKER) (test ltpo=292) 88.7 mg/dL Reference Range: No NormalsPOCT-GLUCOSE [id number] 00:00:00 Test Item Value Reference Range Comments POC-GLUCOSE METER (BEAKER) 125 mg/dL 70-110 : TESTED AT [facility] [address] (test lezh=5796) [facility], [address]: Legal Instructor/Plant Superintendent [phone]=[id number] for FRACNO BOWDEN [id number] 18:55:00 Test Item Value Reference Range Comments MAGNESIUM (BEAKER) (test 2.5 mg/dL 1.6-2.6 Specimen slightly hemolyzed lhrv=380) BASIC METABOLIC [id number] 18:55:00 Test Item Value Reference Range Comments SODIUM (BEAKER) (test 132 meq/L 136-145 dmtf=182) POTASSIUM (BEAKER) (test 4.5 meq/L 3.5-5.1 Specimen slightly yjwy=846) hemolyzed CHLORIDE (BEAKER) (test 102 meq/L 98-107 uwbx=654) CO2 (BEAKER) (test 24 meq/L 22-29 pzje=342) BLOOD UREA NITROGEN 47 mg/dL 7-21 (BEAKER) (test lmuk=803) CREATININE (BEAKER) (test 1.50 mg/dL 0.57-1.25 Specimen slightly sgfv=134) hemolyzed GLUCOSE RANDOM (BEAKER) 145 mg/dL 70-105 (test tvbi=320) CALCIUM (BEAKER) (test 8.2 mg/dL 8.4-10.2 zolh=546) EGFR (BEAKER) (test 49 mL/min/1.73 sq m ESTIMATED GFR IS NOT czyo=8826) ACCURATE CREATININE CLEARANCE IN PREDICTING GLOMERULAR FILTRATION RATE. ESTIMATED GFR IS NOT APPLICABLE FOR DIALYSIS PATIENTS. Specimen markedly ictericCBC (HEMOGRAM ONLY)2019-04-01 18:29:00 Test Item Value Reference Range Comments WHITE BLOOD CELL COUNT (BEAKER) (test bzxk=602) 10.8 K/ L 3.5-10.5 RED BLOOD CELL COUNT (BEAKER) (test xaqm=951) 1.74 M/ L 4.63-6.08 HEMOGLOBIN (BEAKER) (test nfye=834) 6.4 GM/DL 13.7-17.5 HEMATOCRIT (BEAKER) (test jhtp=496) 19.2 % 40.1-51.0 MEAN CORPUSCULAR VOLUME (BEAKER) (test vzeu=195) 110.3 fL 79.0-92.2 MEAN CORPUSCULAR HEMOGLOBIN (BEAKER) (test 36.8 pg 25.7-32.2 qrzo=492) MEAN CORPUSCULAR HEMOGLOBIN CONC (BEAKER) (test 33.3 GM/DL 32.3-36.5 uejf=172) RED CELL DISTRIBUTION WIDTH (BEAKER) (test 17.6 % 11.6-14.4 qhfc=588) PLATELET COUNT (BEAKER) (test czex=320) 52 K/CU MM 150-450 MEAN PLATELET VOLUME (BEAKER) (test uejc=213) 11.7 fL 9.4-12.4 NUCLEATED RED BLOOD CELLS (BEAKER) (test 0 /100 WBC 0-0 kudt=671) POCT-GLUCOSE [id number] 17:40:00 Test Item Value Reference Range Comments POC-GLUCOSE METER (BEAKER) 162 mg/dL 70-110 : TESTED AT [address] (test jhdm=7984) [facility], [address]: Legal Instructor/Plant Superintendent [id number] for LUIS CARLOS ANNE POCT-GLUCOSE [id number] 06:48:00 Test Item Value Reference Range Comments POC-GLUCOSE METER (BEAKER) 135 mg/dL 70-110 : Notified RN/MD: TESTED AT (test zzfw=4456) [address], [address]: Legal Instructor/Plant Superintendent [id number] for DIAZ GONZALES CBC (HEMOGRAM ONLY)2019-04-01 04:47:00 Test Item Value Reference Range Comments WHITE BLOOD CELL COUNT (BEAKER) (test kjyl=707) 11.5 K/ L 3.5-10.5 RED BLOOD CELL COUNT (BEAKER) (test zebg=404) 2.03 M/ L 4.63-6.08 HEMOGLOBIN (BEAKER) (test qhhz=893) 7.2 GM/DL 13.7-17.5 HEMATOCRIT (BEAKER) (test xkkw=333) 22.2 % 40.1-51.0 MEAN CORPUSCULAR VOLUME (BEAKER) (test maqy=521) 109.4 fL 79.0-92.2 MEAN CORPUSCULAR HEMOGLOBIN (BEAKER) (test 35.5 pg 25.7-32.2 crcv=315) MEAN CORPUSCULAR HEMOGLOBIN CONC (BEAKER) (test 32.4 GM/DL 32.3-36.5 gypj=335) RED CELL DISTRIBUTION WIDTH (BEAKER) (test 17.7 % 11.6-14.4 pqhk=214) PLATELET COUNT (BEAKER) (test oeuz=589) 57 K/CU MM 150-450 MEAN PLATELET VOLUME (BEAKER) (test kuet=763) 11.0 fL 9.4-12.4 NUCLEATED RED BLOOD CELLS (BEAKER) (test 0 /100 WBC 0-0 ljbk=229) [id number] 04:46:00 Test Item Value Reference Range Comments MAGNESIUM (BEAKER) (test umaa=299) 2.3 mg/dL 1.6-2.6 BASIC METABOLIC [id number] 04:46:00 Test Item Value Reference Range Comments SODIUM (BEAKER) (test 132 meq/L 136-145 klfv=464) POTASSIUM (BEAKER) (test 5.0 meq/L 3.5-5.1 pdvj=215) CHLORIDE (BEAKER) (test 103 meq/L 98-107 pdto=016) CO2 (BEAKER) (test 24 meq/L 22-29 vrnd=988) BLOOD UREA NITROGEN 47 mg/dL 7-21 (BEAKER) (test iyuc=895) CREATININE (BEAKER) (test 1.64 mg/dL 0.57-1.25 awip=103) GLUCOSE RANDOM (BEAKER) 150 mg/dL 70-105 (test enul=042) CALCIUM (BEAKER) (test 8.3 mg/dL 8.4-10.2 wmcz=191) EGFR (BEAKER) (test 44 mL/min/1.73 sq m ESTIMATED GFR IS NOT qifk=5254) ACCURATE CREATININE CLEARANCE IN PREDICTING GLOMERULAR FILTRATION RATE. ESTIMATED GFR IS NOT APPLICABLE FOR DIALYSIS PATIENTS. Specimen markedly ictericHEPATIC FUNCTION [id number] 04:46:00 Test Item Value Reference Range Comments TOTAL PROTEIN (BEAKER) (test elkf=461) 6.1 gm/dL 6.0-8.3 ALBUMIN (BEAKER) (test sxdk=5315) 2.2 g/dL 3.5-5.0 BILIRUBIN TOTAL (BEAKER) (test bbjb=236) 14.8 mg/dL 0.2-1.2 BILIRUBIN DIRECT (BEAKER) (test qetd=668) 5.3 mg/dL 0.1-0.5 ALKALINE PHOSPHATASE (BEAKER) (test swgq=803) 185 U/L 40-150 AST (SGOT) (BEAKER) (test ncnn=055) 72 U/L 5-34 ALT (SGPT) (BEAKER) (test pcmw=392) 48 U/L 6-55 Specimen markedly [id number] 04:36:00 Test Item Value Reference Range Comments FIBRINOGEN LEVEL (BEAKER) (test oetg=038) 132 mg/dl 225-434 [id number] 04:31:00 Test Item Value Reference Range Comments PROTIME (BEAKER) (test vdsk=184) 27.4 seconds 11.9-14.2 INR (BEAKER) (test gxsx=894) 2.7 <=5.9 PARTIAL THROMBOPLASTIN TIME (BEAKER) (test 50.1 seconds 22.5-36.0 pwkv=266) Effective 09/16/2018: PT Reference Range ChangeNew: 11.9-14.2 Previous: 11.7- 14.7RECOMMENDED COUMADIN/WARFARIN INR THERAPY RANGESSTANDARD DOSE: 2.0-3.0 Includes: PROPHYLAXIS for venous thrombosis, systemic embolization; TREATMENT for venous thrombosis and/or pulmonary embolus.HIGH RISK: Target INR is2.5-3.5 for patients wiht mechanical heart valves.POCT-GLUCOSE [id number] 00:31:00 Test Item Value Reference Range Comments POC-GLUCOSE METER (BEAKER) 139 mg/dL 70-110 : [facility] [address] [facility] (test kurt=4128) [facility], [id number]: Legal Instructor/Plant Superintendent [id number] for GABO SHENA CBC (HEMOGRAM ONLY)2019-03-31 22:06:00 Test Item Value Reference Range Comments WHITE BLOOD CELL COUNT (BEAKER) (test gihg=322) 9.5 K/ L 3.5-10.5 RED BLOOD CELL COUNT (BEAKER) (test okyg=593) 1.99 M/ L 4.63-6.08 HEMOGLOBIN (BEAKER) (test usxq=001) 7.1 GM/DL 13.7-17.5 HEMATOCRIT (BEAKER) (test xtds=152) 22.3 % 40.1-51.0 MEAN CORPUSCULAR VOLUME (BEAKER) (test sstj=798) 112.1 fL 79.0-92.2 MEAN CORPUSCULAR HEMOGLOBIN (BEAKER) (test 35.7 pg 25.7-32.2 rcok=569) MEAN CORPUSCULAR HEMOGLOBIN CONC (BEAKER) (test 31.8 GM/DL 32.3-36.5 yzdm=177) RED CELL DISTRIBUTION WIDTH (BEAKER) (test 17.5 % 11.6-14.4 txve=514) PLATELET COUNT (BEAKER) (test foid=962) 51 K/CU MM 150-450 MEAN PLATELET VOLUME (BEAKER) (test rlok=327) 10.8 fL 9.4-12.4 NUCLEATED RED BLOOD CELLS (BEAKER) (test 0 /100 WBC 0-0 irul=196) POCT-GLUCOSE [id number] 17:36:00 Test Item Value Reference Range Comments POC-GLUCOSE METER (BEAKER) 126 mg/dL 70-110 : Notified RN/MD: TESTED AT (test blty=0872) [facility] [address] [facility], [id number]: Legal Instructor/Plant Superintendent [id number] for KANU MARTINEZ BASIC METABOLIC [id number] 16:36:00 Test Item Value Reference Range Comments SODIUM (BEAKER) (test 137 meq/L 136-145 xhmf=661) POTASSIUM (BEAKER) (test 4.8 meq/L 3.5-5.1 liab=657) CHLORIDE (BEAKER) (test 106 meq/L 98-107 couk=243) CO2 (BEAKER) (test 24 meq/L 22-29 mzza=899) BLOOD UREA NITROGEN 41 mg/dL 7-21 (BEAKER) (test dhor=477) CREATININE (BEAKER) (test 1.46 mg/dL 0.57-1.25 emcr=966) GLUCOSE RANDOM (BEAKER) 138 mg/dL 70-105 (test qrqa=257) CALCIUM (BEAKER) (test 8.6 mg/dL 8.4-10.2 spaw=974) EGFR (BEAKER) (test 51 mL/min/1.73 sq m ESTIMATED GFR IS NOT aufd=7548) ACCURATE CREATININE CLEARANCE IN PREDICTING GLOMERULAR FILTRATION RATE. ESTIMATED GFR IS NOT APPLICABLE FOR DIALYSIS PATIENTS. Specimen markedly ictericCBC (HEMOGRAM ONLY)2019-03-31 16:21:00 Test Item Value Reference Range Comments WHITE BLOOD CELL COUNT (BEAKER) (test ujub=172) 7.2 K/ L 3.5-10.5 RED BLOOD CELL COUNT (BEAKER) (test fxpf=468) 2.02 M/ L 4.63-6.08 HEMOGLOBIN (BEAKER) (test itkb=833) 7.2 GM/DL 13.7-17.5 HEMATOCRIT (BEAKER) (test krap=128) 22.4 % 40.1-51.0 MEAN CORPUSCULAR VOLUME (BEAKER) (test mude=189) 110.9 fL 79.0-92.2 MEAN CORPUSCULAR HEMOGLOBIN (BEAKER) (test 35.6 pg 25.7-32.2 jzoy=867) MEAN CORPUSCULAR HEMOGLOBIN CONC (BEAKER) (test 32.1 GM/DL 32.3-36.5 nwqu=953) RED CELL DISTRIBUTION WIDTH (BEAKER) (test 17.4 % 11.6-14.4 pfmj=465) PLATELET COUNT (BEAKER) (test qbgc=265) 52 K/CU MM 150-450 MEAN PLATELET VOLUME (BEAKER) (test idap=636) 10.6 fL 9.4-12.4 NUCLEATED RED BLOOD CELLS (BEAKER) (test 0 /100 WBC 0-0 potx=558) B-TYPE NATRIURETIC FACTOR (BNP)2019-03-31 12:52:00 Test Item Value Reference Range Comments B-TYPE NATRIURETIC PEPTIDE (BEAKER) (test 1031 pg/mL 0-100 urwk=499) POCT-GLUCOSE [id number] 12:03:00 Test Item Value Reference Range Comments POC-GLUCOSE METER (BEAKER) 145 mg/dL 70-110 : TESTED AT [facility] [address] (test resw=3399) [facility], [address]: Legal Instructor/Plant Superintendent [id number] for MARY LOUSUZETTEBALBINA URINALYSIS W/ REFLEX URINE [id number] 11:21:00 Test Item Value Reference Range Comments COLOR (BEAKER) (test ygec=168) [place] CLARITY (BEAKER) (test inhj=696) Hazy SPECIFIC GRAVITY UA (BEAKER) (test kuqo=759) 1.021 1.001-1.035 PH UA (BEAKER) (test llpo=481) 5.5 5.0-8.0 PROTEIN UA (BEAKER) (test ylmw=028) 30 mg/dL Negative GLUCOSE UA (BEAKER) (test qzwl=326) Negative Negative KETONES UA (BEAKER) (test epbr=162) Negative Negative BILIRUBIN UA (BEAKER) (test djhf=898) Positive Negative BLOOD UA (BEAKER) (test nano=392) Moderate Negative NITRITE UA (BEAKER) (test bejx=788) Negative Negative LEUKOCYTE ESTERASE UA (BEAKER) (test xtbs=044) Large Negative UROBILINOGEN UA (BEAKER) (test qnza=179) 0.2 mg/dL 0.2-1.0 RBC UA (BEAKER) (test qszl=183) 22 /HPF WBC UA (BEAKER) (test axyv=070) 64 /HPF BACTERIA (BEAKER) (test itvh=303) Rare MUCUS (BEAKER) (test ykib=7874) Rare SQUAMOUS EPITHELIAL (BEAKER) (test yuwk=382) < /HPF HYALINE CASTS (BEAKER) (test ongy=610) 236 /LPF SOURCE(BEAKER) (test iczz=1477) LACTIC ACID, [id number] 10:17:00 Test Item Value Reference Range Comments LACTATE BLOOD VENOUS (2) (BEAKER) (test 2.2 mmol/L 0.5-2.2 knuu=9812) Specimen markedly ictericCBC (HEMOGRAM ONLY)2019-03-31 09:43:00 Test Item Value Reference Range Comments WHITE BLOOD CELL COUNT (BEAKER) (test mrqp=937) 6.7 K/ L 3.5-10.5 RED BLOOD CELL COUNT (BEAKER) (test ryeg=208) 2.13 M/ L 4.63-6.08 HEMOGLOBIN (BEAKER) (test gxga=469) 7.7 GM/DL 13.7-17.5 HEMATOCRIT (BEAKER) (test tuwn=653) 23.3 % 40.1-51.0 MEAN CORPUSCULAR VOLUME (BEAKER) (test bpvw=202) 109.4 fL 79.0-92.2 MEAN CORPUSCULAR HEMOGLOBIN (BEAKER) (test 36.2 pg 25.7-32.2 tbup=844) MEAN CORPUSCULAR HEMOGLOBIN CONC (BEAKER) (test 33.0 GM/DL 32.3-36.5 etbk=083) RED CELL DISTRIBUTION WIDTH (BEAKER) (test 17.4 % 11.6-14.4 fxjc=355) PLATELET COUNT (BEAKER) (test hkig=420) 60 K/CU MM 150-450 MEAN PLATELET VOLUME (BEAKER) (test flvq=887) 10.4 fL 9.4-12.4 NUCLEATED RED BLOOD CELLS (BEAKER) (test 0 /100 WBC 0-0 ixmh=769) RAD, CHEST, 1 VIEW, NON [id number] 07:31:00Reason for exam:->ETTShould this be performed at [...] mediastinum: Stable contours. Additional findings: None. Signed: Zeenat Michele MDReport Verified Date/Time: 03/31/2019 07:31:43 Reading Location: [facility] Radiology Reading Room [id number] 06:19:00 Test Item Value Reference Range Comments MAGNESIUM (BEAKER) (test miwr=376) 2.3 mg/dL 1.6-2.6 BASIC METABOLIC [id number] 06:19:00 Test Item Value Reference Range Comments SODIUM (BEAKER) (test 136 meq/L 136-145 gqsk=790) POTASSIUM (BEAKER) (test 4.7 meq/L 3.5-5.1 ffaa=977) CHLORIDE (BEAKER) (test 105 meq/L 98-107 atju=644) CO2 (BEAKER) (test 24 meq/L 22-29 rent=459) BLOOD UREA NITROGEN 33 mg/dL 7-21 (BEAKER) (test lqjw=744) CREATININE (BEAKER) (test 1.29 mg/dL 0.57-1.25 xbdh=627) GLUCOSE RANDOM (BEAKER) 121 mg/dL 70-105 (test hurr=505) CALCIUM (BEAKER) (test 8.6 mg/dL 8.4-10.2 tpzj=722) EGFR (BEAKER) (test 58 mL/min/1.73 sq m ESTIMATED GFR IS NOT phet=2646) ACCURATE CREATININE CLEARANCE IN PREDICTING GLOMERULAR FILTRATION RATE. ESTIMATED GFR IS NOT APPLICABLE FOR DIALYSIS PATIENTS. Specimen markedly ictericU/S, ABDOMINAL, [id number] 06:14:00Reason for exam:->ALTERED MENTAL STATUSFINAL REPORT History: [...] vein and varices in the splenic hilum. Signed:Brad Arredondo MDReport Verified Date/Time: 03/31/2019 06:14:45 CBC W/PLT COUNT & AUTO [id number] 06:06:00 Test Item Value Reference Range Comments WHITE BLOOD CELL COUNT (BEAKER) (test cljc=346) 6.1 K/ L 3.5-10.5 RED BLOOD CELL COUNT (BEAKER) (test hiaz=591) 2.18 M/ L 4.63-6.08 HEMOGLOBIN (BEAKER) (test uygj=239) 7.9 GM/DL 13.7-17.5 HEMATOCRIT (BEAKER) (test yrox=609) 23.7 % 40.1-51.0 MEAN CORPUSCULAR VOLUME (BEAKER) (test xrpd=787) 108.7 fL 79.0-92.2 MEAN CORPUSCULAR HEMOGLOBIN (BEAKER) (test 36.2 pg 25.7-32.2 thtx=868) MEAN CORPUSCULAR HEMOGLOBIN CONC (BEAKER) (test 33.3 GM/DL 32.3-36.5 lbky=003) RED CELL DISTRIBUTION WIDTH (BEAKER) (test 17.6 % 11.6-14.4 glnp=615) PLATELET COUNT (BEAKER) (test kzsv=463) 66 K/CU MM 150-450 MEAN PLATELET VOLUME (BEAKER) (test abga=942) 10.3 fL 9.4-12.4 NUCLEATED RED BLOOD CELLS (BEAKER) (test 0 /100 WBC 0-0 kzeu=555) NEUTROPHILS RELATIVE PERCENT (BEAKER) (test 89 % cxey=167) LYMPHOCYTES RELATIVE PERCENT (BEAKER) (test 6 % jrxx=980) MONOCYTES RELATIVE PERCENT (BEAKER) (test 5 % znjv=860) EOSINOPHILS RELATIVE PERCENT (BEAKER) (test 0 % vpwn=359) BASOPHILS RELATIVE PERCENT (BEAKER) (test 0 % nsyh=610) NEUTROPHILS ABSOLUTE COUNT (BEAKER) (test 5.43 K/ L 1.78-5.38 mtiv=570) LYMPHOCYTES ABSOLUTE COUNT (BEAKER) (test 0.34 K/ L 1.32-3.57 swkm=316) MONOCYTES ABSOLUTE COUNT (BEAKER) (test gtqx=963) 0.31 K/ L 0.30-0.82 EOSINOPHILS ABSOLUTE COUNT (BEAKER) (test 0.00 K/ L 0.04-0.54 npah=760) BASOPHILS ABSOLUTE COUNT (BEAKER) (test gcne=986) 0.01 K/ L 0.01-0.08 IMMATURE GRANULOCYTES-RELATIVE PERCENT (BEAKER) 1 % 0-1 (test vtvq=3679) BLOOD GAS, [id number] 05:39:00 Test Item Value Reference Range Comments PH ARTERIAL (BEAKER) (test uwyv=042) 7.50 7.35-7.45 PCO2 ARTERIAL (BEAKER) (test ktyw=160) 32 mmHg 35-45 PO2 ARTERIAL (BEAKER) (test xqrs=880) 217 mmHg 80-90 O2 SATURATION ARTERIAL (BEAKER) (test awsx=711) 99.5 % 96.0-97.0 HCO3 ARTERIAL (BEAKER) (test vpko=971) 24 mmol/L 21-29 BASE EXCESS ARTERIAL (BEAKER) (test wykr=745) 1.2 mmol/L -2.0-3.0 PATIENT TEMPERATURE (BEAKER) (test nwwl=4715) 36.4 C FIO2 (BEAKER) (test ovpq=4235) 50.0 % PT/[id number] 02:39:00 Test Item Value Reference Range Comments PROTIME (BEAKER) (test zrrn=637) 28.7 seconds 11.9-14.2 INR (BEAKER) (test olry=628) 2.9 <=5.9 PARTIAL THROMBOPLASTIN TIME (BEAKER) (test 52.7 seconds 22.5-36.0 sywl=795) Effective 09/16/2018: PT Reference Range ChangeNew: 11.9-14.2 Previous: 11.7- 14.7RECOMMENDED COUMADIN/WARFARIN INR THERAPY RANGESSTANDARD DOSE: 2.0-3.0 Includes: PROPHYLAXIS for venous thrombosis, systemic embolization; TREATMENT for venous thrombosis and/or pulmonary embolus.HIGH RISK: Target INR is2.5-3.5 for patients wiht mechanical heart valves.[id number] 02:36:00 Test Item Value Reference Range Comments MAGNESIUM (BEAKER) (test 2.3 mg/dL 1.6-2.6 Specimen moderately hemolyzed eewn=789) [id number] 02:36:00 Test Item Value Reference Range Comments PHOSPHORUS (BEAKER) (test 4.8 mg/dL 2.3-4.7 Specimen moderately hemolyzed rhrh=130) BASIC METABOLIC [id number] 02:36:00 Test Item Value Reference Range Comments SODIUM (BEAKER) (test 133 meq/L 136-145 szxg=350) POTASSIUM (BEAKER) (test 5.1 meq/L 3.5-5.1 Specimen moderately vksv=742) hemolyzed CHLORIDE (BEAKER) (test 103 meq/L 98-107 oxma=860) CO2 (BEAKER) (test 24 meq/L 22-29 gvld=286) BLOOD UREA NITROGEN 32 mg/dL 7-21 (BEAKER) (test qiyw=780) CREATININE (BEAKER) (test 1.32 mg/dL 0.57-1.25 Specimen moderately iflv=634) hemolyzed GLUCOSE RANDOM (BEAKER) 115 mg/dL 70-105 (test xsiv=454) CALCIUM (BEAKER) (test 8.2 mg/dL 8.4-10.2 jeaq=065) EGFR (BEAKER) (test 57 mL/min/1.73 sq m ESTIMATED GFR IS NOT spfr=9146) ACCURATE CREATININE CLEARANCE IN PREDICTING GLOMERULAR FILTRATION RATE. ESTIMATED GFR IS NOT APPLICABLE FOR DIALYSIS PATIENTS. Specimen markedly ictericHEPATIC FUNCTION [id number] 02:36:00 Test Item Value Reference Range Comments TOTAL PROTEIN (BEAKER) (test 6.2 gm/dL 6.0-8.3 Specimen moderately cind=426) hemolyzed ALBUMIN (BEAKER) (test 2.3 g/dL 3.5-5.0 Specimen moderately qhug=1234) hemolyzed BILIRUBIN TOTAL (BEAKER) (test 11.1 mg/dL 0.2-1.2 Specimen moderately ivik=913) hemolyzed BILIRUBIN DIRECT (BEAKER) 4.2 mg/dL 0.1-0.5 Specimen moderately (test lnfd=805) hemolyzed ALKALINE PHOSPHATASE (BEAKER) 198 U/L 40-150 (test buzu=868) AST (SGOT) (BEAKER) (test 93 U/L 5-34 Specimen moderately jafn=500) hemolyzed ALT (SGPT) (BEAKER) (test 46 U/L 6-55 Specimen moderately gmbx=021) hemolyzed Specimen markedly [id number] 02:26:00 Test Item Value Reference Range Comments AMMONIA (BEAKER) (test gwgi=304) 62 mol/L 18-72 CBC W/PLT COUNT & AUTO [id number] 02:24:00 Test Item Value Reference Range Comments WHITE BLOOD CELL COUNT (BEAKER) (test dihw=203) 4.8 K/ L 3.5-10.5 RED BLOOD CELL COUNT (BEAKER) (test gbpv=541) 2.09 M/ L 4.63-6.08 HEMOGLOBIN (BEAKER) (test qzlx=365) 7.5 GM/DL 13.7-17.5 HEMATOCRIT (BEAKER) (test hvjk=883) 22.4 % 40.1-51.0 MEAN CORPUSCULAR VOLUME (BEAKER) (test kdao=267) 107.2 fL 79.0-92.2 MEAN CORPUSCULAR HEMOGLOBIN (BEAKER) (test 35.9 pg 25.7-32.2 fhio=672) MEAN CORPUSCULAR HEMOGLOBIN CONC (BEAKER) (test 33.5 GM/DL 32.3-36.5 mghu=556) RED CELL DISTRIBUTION WIDTH (BEAKER) (test 17.6 % 11.6-14.4 rvho=835) PLATELET COUNT (BEAKER) (test xpcn=198) 54 K/CU MM 150-450 MEAN PLATELET VOLUME (BEAKER) (test aqji=779) 9.8 fL 9.4-12.4 NUCLEATED RED BLOOD CELLS (BEAKER) (test 0 /100 WBC 0-0 lhcf=189) NEUTROPHILS RELATIVE PERCENT (BEAKER) (test 84 % cwel=171) LYMPHOCYTES RELATIVE PERCENT (BEAKER) (test 9 % makk=733) MONOCYTES RELATIVE PERCENT (BEAKER) (test 6 % zaqt=392) EOSINOPHILS RELATIVE PERCENT (BEAKER) (test 0 % mzcd=553) BASOPHILS RELATIVE PERCENT (BEAKER) (test 0 % acmx=044) NEUTROPHILS ABSOLUTE COUNT (BEAKER) (test 3.99 K/ L 1.78-5.38 gkvz=126) LYMPHOCYTES ABSOLUTE COUNT (BEAKER) (test 0.44 K/ L 1.32-3.57 vggf=815) MONOCYTES ABSOLUTE COUNT (BEAKER) (test pude=157) 0.28 K/ L 0.30-0.82 EOSINOPHILS ABSOLUTE COUNT (BEAKER) (test 0.01 K/ L 0.04-0.54 azla=132) BASOPHILS ABSOLUTE COUNT (BEAKER) (test mcmj=798) 0.01 K/ L 0.01-0.08 IMMATURE GRANULOCYTES-RELATIVE PERCENT (BEAKER) 0 % 0-1 (test eyfs=4461) POCT-GLUCOSE [id number] 00:08:00 Test Item Value Reference Range Comments POC-GLUCOSE METER (BEAKER) 108 mg/dL 70-110 : TESTED AT [facility] [address] (test jcsz=7853) [facility], [id number]: Legal Instructor/[employer]ant Superintendent LQ=[id number] for FRANCO BOWDEN [id number] 23:24:00 Test Item Value Reference Range Comments PHOSPHORUS (BEAKER) (test mjis=328) 4.5 mg/dL 2.3-4.7 [id number] 23:24:00 Test Item Value Reference Range Comments MAGNESIUM (BEAKER) (test uqac=235) 2.3 mg/dL 1.6-2.6 BASIC METABOLIC [id number] 23:24:00 Test Item Value Reference Range Comments SODIUM (BEAKER) (test 134 meq/L 136-145 wnof=067) POTASSIUM (BEAKER) (test 4.8 meq/L 3.5-5.1 wutp=349) CHLORIDE (BEAKER) (test 104 meq/L 98-107 hdhu=940) CO2 (BEAKER) (test 23 meq/L 22-29 tdwy=807) BLOOD UREA NITROGEN 30 mg/dL 7-21 (BEAKER) (test hjgx=792) CREATININE (BEAKER) (test 1.35 mg/dL 0.57-1.25 gbfq=016) GLUCOSE RANDOM (BEAKER) 106 mg/dL 70-105 (test mler=080) CALCIUM (BEAKER) (test 8.5 mg/dL 8.4-10.2 aadz=488) EGFR (BEAKER) (test 55 mL/min/1.73 sq m ESTIMATED GFR IS NOT bvtg=6222) ACCURATE CREATININE CLEARANCE IN PREDICTING GLOMERULAR FILTRATION RATE. ESTIMATED GFR IS NOT APPLICABLE FOR DIALYSIS PATIENTS. Specimen markedly ictericPT/[id number] 23:12:00 Test Item Value Reference Range Comments PROTIME (BEAKER) (test xhfr=136) 26.1 seconds 11.9-14.2 INR (BEAKER) (test daaf=762) 2.6 <=5.9 PARTIAL THROMBOPLASTIN TIME (BEAKER) (test 49.6 seconds 22.5-36.0 efno=487) Effective 09/16/2018: PT Reference Range ChangeNew: 11.9-14.2 Previous: 11.7- 14.7RECOMMENDED COUMADIN/WARFARIN INR THERAPY RANGESSTANDARD DOSE: 2.0-3.0 Includes: PROPHYLAXIS for venous thrombosis, systemic embolization; TREATMENT for venous thrombosis and/or pulmonary embolus.HIGH RISK: Target INR is2.5-3.5 for patients wiht mechanical heart valves.CBC W/PLT COUNT & AUTO [id number] 23:10:00 Test Item Value Reference Range Comments WHITE BLOOD CELL COUNT (BEAKER) (test hwar=744) 4.6 K/ L 3.5-10.5 RED BLOOD CELL COUNT (BEAKER) (test iavj=150) 2.38 M/ L 4.63-6.08 HEMOGLOBIN (BEAKER) (test ifnn=319) 8.6 GM/DL 13.7-17.5 HEMATOCRIT (BEAKER) (test tyyy=381) 25.7 % 40.1-51.0 MEAN CORPUSCULAR VOLUME (BEAKER) (test kylq=677) 108.0 fL 79.0-92.2 MEAN CORPUSCULAR HEMOGLOBIN (BEAKER) (test 36.1 pg 25.7-32.2 fxaz=388) MEAN CORPUSCULAR HEMOGLOBIN CONC (BEAKER) (test 33.5 GM/DL 32.3-36.5 zqfp=427) RED CELL DISTRIBUTION WIDTH (BEAKER) (test 17.5 % 11.6-14.4 wdva=297) PLATELET COUNT (BEAKER) (test kepx=972) 60 K/CU MM 150-450 MEAN PLATELET VOLUME (BEAKER) (test aswn=221) 10.3 fL 9.4-12.4 NUCLEATED RED BLOOD CELLS (BEAKER) (test 0 /100 WBC 0-0 wdit=865) NEUTROPHILS RELATIVE PERCENT (BEAKER) (test 84 % iibh=170) LYMPHOCYTES RELATIVE PERCENT (BEAKER) (test 11 % lroz=662) MONOCYTES RELATIVE PERCENT (BEAKER) (test 4 % xqbo=459) EOSINOPHILS RELATIVE PERCENT (BEAKER) (test 1 % rvjq=691) BASOPHILS RELATIVE PERCENT (BEAKER) (test 0 % fasr=214) NEUTROPHILS ABSOLUTE COUNT (BEAKER) (test 3.87 K/ L 1.78-5.38 uwdi=915) LYMPHOCYTES ABSOLUTE COUNT (BEAKER) (test 0.49 K/ L 1.32-3.57 dttw=149) MONOCYTES ABSOLUTE COUNT (BEAKER) (test srco=867) 0.20 K/ L 0.30-0.82 EOSINOPHILS ABSOLUTE COUNT (BEAKER) (test 0.03 K/ L 0.04-0.54 cipn=941) BASOPHILS ABSOLUTE COUNT (BEAKER) (test vnxm=112) 0.02 K/ L 0.01-0.08 IMMATURE GRANULOCYTES-RELATIVE PERCENT (BEAKER) 0 % 0-1 (test oykj=3879) VITAMIN B12 AND [id number] 22:00:00 Test Item Value Reference Range Comments VITAMIN B12 (BEAKER) (test eahl=117) > pg/mL 213-816 FOLATE (BEAKER) (test xmoj=922) > ng/mL >=7.0 HGB/HCT (H&H) - STAT [id number] 20:14:00 Test Item Value Reference Range Comments HEMOGLOBIN (BEAKER) (test bxjw=627) 8.5 GM/DL 13.0-16.8 HEMATOCRIT (BEAKER) (test ndcp=205) 25.0 % 40.0-50.0 [id number] 20:02:00 Test Item Value Reference Range Comments MAGNESIUM (BEAKER) (test 2.4 mg/dL 1.6-2.6 Specimen slightly hemolyzed wskq=308) BLOOD GAS, [id number] 19:53:00 Test Item Value Reference Range Comments PH ARTERIAL (BEAKER) (test cydr=963) 7.54 7.35-7.45 PCO2 ARTERIAL (BEAKER) (test tjkp=897) 30 mmHg 35-45 PO2 ARTERIAL (BEAKER) (test qxkf=847) 146 mmHg 80-90 O2 SATURATION ARTERIAL (BEAKER) (test vjeq=397) 99.1 % 96.0-97.0 HCO3 ARTERIAL (BEAKER) (test xtwu=161) 25 mmol/L 21-29 BASE EXCESS ARTERIAL (BEAKER) (test nhko=081) 2.9 mmol/L -2.0-3.0 PATIENT TEMPERATURE (BEAKER) (test gpmh=2434) 37.0 C LEGIONELLA ANTIGEN, [id number] 18:42:00 Test Item Value Reference Range Comments L. PNEUMOPHILA SEROGP 1 Negative - see Negative for L. UR AG (BEAKER) (test comment pneumophila serogroup 1 kszc=9271) antigen, suggesting no recent or current infection with this serogroup. Legionellosis cannot be ruled out since other serogroups and species may cause disease. STREP PNEUMONIAE [id number] 18:40:00 Test Item Value Reference Range Comments STREP PNEUMONIAE ANTIGEN Presumptive negative for Presumptive negative for (BEAKER) (test pneumococcal pneumonia - pneumococcal pneumonia - qnuk=2102) see comment see commen Presumptive negative for pneumococcal pneumonia, suggesting no current or recent pneumococcal infection. Infection due to S. pneumoniae cannot be ruled out since the antigen present in the sample may be below the detection limit of the test.RAPID DRUG SCREEN, [id number] 18:28:00 Test Item Value Reference Range Comments BARBITURATE URINE (BEAKER) (test jksw=278) Negative Negative BENZODIAZEPINE SCREEN URINE (BEAKER) (test Negative Negative miri=117) COCAINE (METAB.) SCREEN (BEAKER) (test pndi=4111) Negative Negative METHADONE SCREEN (BEAKER) (test exzk=6121) Negative Negative OPIATE SCREEN URINE (BEAKER) (test umqo=697) Negative Negative CANNABINOID SCREEN URINE (BEAKER) (test lvyl=249) Negative Negative AMPH/METHAMPH SCREEN (BEAKER) (test pvon=4297) Negative Negative PHENCYCLIDINE SCREEN URINE (BEAKER) (test unre=315) Negative Negative DRUG CUTOFF CONC.Cocaine 300 ng/mL Cannabinoid 50 ng/mLBenzodiazepine 200 ng/mLBarbiturate 200 ng/ mLPhencyclidine 25 ng/mLOpiate 300 ng/mLMethadone 300 ng/mLAmphetamine/ 1000 ng/mL MethamphetamineThis assay provides an unconfirmed qualitative test result for the clinical management of patients in emergency situations. Chain of custody not maintained. Some lsva-xxa-ajeoudr medications, as well as adulterants, may cause inaccurate results. Clinical correlation should be applied. A more comprehensivedrug screen or confirmation of a detected drug may be performed upon request.SODIUM, RANDOM [id number] 18:28:00 Test Item Value Reference Range Comments SODIUM URINE (BEAKER) (test dqnb=961) < meq/L Reference Range: No NormalsCREATININE, RANDOM [id number] 18:12:00 Test Item Value Reference Range Comments CREATININE URINE (BEAKER) (test bppn=010) 74.6 mg/dL Reference Range: No NormalsUREA NITROGEN, RANDOM [id number] 18:12:00 Test Item Value Reference Range Comments UREA NITROGEN URINE (BEAKER) (test jmtf=235) 514 mg/dL Reference Range: No [id number] 17:10:00 Test Item Value Reference Range Comments MAGNESIUM (BEAKER) (test 2.5 mg/dL 1.6-2.6 Specimen slightly hemolyzed cidz=750) [id number] 17:10:00 Test Item Value Reference Range Comments PHOSPHORUS (BEAKER) (test 4.1 mg/dL 2.3-4.7 Specimen slightly hemolyzed unbn=530) PROTEIN, [id number] 17:10:00 Test Item Value Reference Range Comments TOTAL PROTEIN (BEAKER) (test 7.7 gm/dL 6.0-8.3 Specimen slightly hemolyzed sdij=702) [id number] 17:10:00 Test Item Value Reference Range Comments ALBUMIN (BEAKER) (test 2.3 g/dL 3.5-5.0 Specimen slightly hemolyzed plnb=0414) BILIRUBIN, [id number] 17:10:00 Test Item Value Reference Range Comments BILIRUBIN DIRECT (BEAKER) (test 5.6 mg/dL 0.1-0.5 Specimen slightly hemolyzed rocq=996) CREATINE KINASE (CK)2019-03-30 17:10:00 Test Item Value Reference Range Comments CREATINE KINASE TOTAL (BEAKER) (test aqrl=924) 353 U/L 29-200 LACTIC ACID, [id number] 17:05:00 Test Item Value Reference Range Comments LACTATE BLOOD VENOUS (2) 1.7 mmol/L 0.5-2.2 Specimen slightly hemolyzed (BEAKER) (test rrcj=6940) Specimen moderately [id number] 16:53:00 Test Item Value Reference Range Comments FIBRINOGEN LEVEL (BEAKER) (test opjs=830) 177 mg/dl 225-434 CBC (HEMOGRAM ONLY)2019-03-30 16:49:00 Test Item Value Reference Range Comments WHITE BLOOD CELL COUNT (BEAKER) (test ykut=318) 5.5 K/ L 3.5-10.5 RED BLOOD CELL COUNT (BEAKER) (test rlcs=042) 2.67 M/ L 4.63-6.08 HEMOGLOBIN (BEAKER) (test orfc=608) 9.6 GM/DL 13.7-17.5 HEMATOCRIT (BEAKER) (test idju=604) 29.1 % 40.1-51.0 MEAN CORPUSCULAR VOLUME (BEAKER) (test rexr=086) 109.0 fL 79.0-92.2 MEAN CORPUSCULAR HEMOGLOBIN (BEAKER) (test 36.0 pg 25.7-32.2 vrpm=867) MEAN CORPUSCULAR HEMOGLOBIN CONC (BEAKER) (test 33.0 GM/DL 32.3-36.5 acff=919) RED CELL DISTRIBUTION WIDTH (BEAKER) (test 17.9 % 11.6-14.4 ondx=044) PLATELET COUNT (BEAKER) (test qkww=711) 80 K/CU MM 150-450 MEAN PLATELET VOLUME (BEAKER) (test absf=910) 10.3 fL 9.4-12.4 NUCLEATED RED BLOOD CELLS (BEAKER) (test 0 /100 WBC 0-0 ryzp=046) TROPONIN [id number] 15:58:00 Test Item Value Reference Range Comments TROPONIN I (BEAKER) (test zsdq=592) 0.01 ng/mL 0.00-0.03 Troponin I (TnI) levels [...] acidosis, acute neurological disease, and persistent tachyarrhythmia.ALKALINE [id number] 15:52:00 Test Item Value Reference Range Comments ALKALINE PHOSPHATASE (BEAKER) (test eubc=100) 296 U/L 40-150 BILIRUBIN, ADULT [id number] 15:52:00 Test Item Value Reference Range Comments BILIRUBIN TOTAL (BEAKER) (test wvzi=064) 11.1 mg/dL 0.2-1.2 BASIC METABOLIC [id number] 15:52:00 Test Item Value Reference Range Comments SODIUM (BEAKER) (test 134 meq/L 136-145 tnxs=716) POTASSIUM (BEAKER) (test 4.4 meq/L 3.5-5.1 dcjt=489) CHLORIDE (BEAKER) (test 101 meq/L 98-107 hdks=269) CO2 (BEAKER) (test 29 meq/L 22-29 fhhb=003) BLOOD UREA NITROGEN 32 mg/dL 7-21 (BEAKER) (test reoj=461) CREATININE (BEAKER) (test 1.50 mg/dL 0.57-1.25 wmiu=736) GLUCOSE RANDOM (BEAKER) 92 mg/dL 70-105 (test xwsj=359) CALCIUM (BEAKER) (test 8.7 mg/dL 8.4-10.2 erim=047) EGFR (BEAKER) (test 49 mL/min/1.73 sq m ESTIMATED GFR IS NOT xhwq=5533) ACCURATE CREATININE CLEARANCE IN PREDICTING GLOMERULAR FILTRATION RATE. ESTIMATED GFR IS NOT APPLICABLE FOR DIALYSIS PATIENTS. Specimen markedly ictericALT (SGPT)2019-03-30 15:52:00 Test Item Value Reference Range Comments ALT (SGPT) (BEAKER) (test eceh=714) 66 U/L 6-55 Specimen markedly ictericAST (SGOT)2019-03-30 15:52:00 Test Item Value Reference Range Comments AST (SGOT) (BEAKER) (test ywou=598) 116 U/L 5-34 [id number] 15:49:00 Test Item Value Reference Range Comments ETHANOL (BEAKER) (test lwat=430) < mg/dL <=10 [id number] 15:44:00 Test Item Value Reference Range Comments AMMONIA (BEAKER) (test tmfb=287) 153 mol/L 18-72 CBC W/PLT COUNT & AUTO [id number] 15:35:00 Test Item Value Reference Range Comments WHITE BLOOD CELL COUNT (BEAKER) (test dlcf=575) 5.4 K/ L 3.5-10.5 RED BLOOD CELL COUNT (BEAKER) (test ouln=737) 2.63 M/ L 4.63-6.08 HEMOGLOBIN (BEAKER) (test zfbh=586) 9.5 GM/DL 13.7-17.5 HEMATOCRIT (BEAKER) (test eupk=644) 28.5 % 40.1-51.0 MEAN CORPUSCULAR VOLUME (BEAKER) (test ilti=559) 108.4 fL 79.0-92.2 MEAN CORPUSCULAR HEMOGLOBIN (BEAKER) (test 36.1 pg 25.7-32.2 caou=698) MEAN CORPUSCULAR HEMOGLOBIN CONC (BEAKER) (test 33.3 GM/DL 32.3-36.5 ospo=863) RED CELL DISTRIBUTION WIDTH (BEAKER) (test 17.6 % 11.6-14.4 lyhk=405) PLATELET COUNT (BEAKER) (test ecuz=170) 69 K/CU MM 150-450 MEAN PLATELET VOLUME (BEAKER) (test lbmx=162) 10.4 fL 9.4-12.4 NUCLEATED RED BLOOD CELLS (BEAKER) (test 0 /100 WBC 0-0 jfxr=094) NEUTROPHILS RELATIVE PERCENT (BEAKER) (test 69 % rppk=158) LYMPHOCYTES RELATIVE PERCENT (BEAKER) (test 15 % oicf=170) MONOCYTES RELATIVE PERCENT (BEAKER) (test 10 % blbh=904) EOSINOPHILS RELATIVE PERCENT (BEAKER) (test 5 % eqig=733) BASOPHILS RELATIVE PERCENT (BEAKER) (test 1 % wunz=616) NEUTROPHILS ABSOLUTE COUNT (BEAKER) (test 3.73 K/ L 1.78-5.38 ypte=563) LYMPHOCYTES ABSOLUTE COUNT (BEAKER) (test 0.81 K/ L 1.32-3.57 bnfg=479) MONOCYTES ABSOLUTE COUNT (BEAKER) (test vqan=952) 0.52 K/ L 0.30-0.82 EOSINOPHILS ABSOLUTE COUNT (BEAKER) (test 0.26 K/ L 0.04-0.54 juco=483) BASOPHILS ABSOLUTE COUNT (BEAKER) (test qxik=380) 0.04 K/ L 0.01-0.08 IMMATURE GRANULOCYTES-RELATIVE PERCENT (BEAKER) 0 % 0-1 (test rmqp=8740) RAD, CHEST, 1 VIEW, NON [id number] 14:56:00Reason for exam:->CHEST PAINShould this be performed [...] Camacho Verified Date/Time: 03/30/2019 14:56:30 Reading Location: [facility] Reading Room 02: 56 PMCT, BRAIN, WITHOUT [id number] 14:13:00Reason for exam:->altered mental statusWhat is the [...] examination is recommended for further characterization. Signed: Zeenat Michele Verified Date/Time: 03/30/2019 14:13:23 Reading Location: [facility] Radiology ReadingRoom [facility] [id number] 06:15:00 Test Item Value Reference Range Comments SODIUM (BEAKER) (test 127 meq/L 136-145 dhhi=798) POTASSIUM (BEAKER) (test 3.8 meq/L 3.5-5.1 xxgz=974) CHLORIDE (BEAKER) (test 95 meq/L 98-107 nftr=766) CO2 (BEAKER) (test 29 meq/L 22-29 vcbi=008) BLOOD UREA NITROGEN 14 mg/dL 7-21 (BEAKER) (test ufgq=407) CREATININE (BEAKER) (test 0.72 mg/dL 0.57-1.25 ihad=420) GLUCOSE RANDOM (BEAKER) 90 mg/dL 70-105 (test qwtx=770) CALCIUM (BEAKER) (test 7.5 mg/dL 8.4-10.2 kzoq=563) EGFR (BEAKER) (test 114 mL/min/1.73 sq m ESTIMATED GFR IS NOT ndem=5931) ACCURATE CREATININE CLEARANCE IN PREDICTING GLOMERULAR FILTRATION RATE. ESTIMATED GFR IS NOT APPLICABLE FOR DIALYSIS PATIENTS. Specimen moderately ictericHEPATIC FUNCTION [id number] 06:08:00 Test Item Value Reference Range Comments TOTAL PROTEIN (BEAKER) (test djqk=795) 6.0 gm/dL 6.0-8.3 ALBUMIN (BEAKER) (test btmn=8371) 1.8 g/dL 3.5-5.0 BILIRUBIN TOTAL (BEAKER) (test tiue=831) 7.9 mg/dL 0.2-1.2 BILIRUBIN DIRECT (BEAKER) (test dzrg=763) 4.2 mg/dL 0.1-0.5 ALKALINE PHOSPHATASE (BEAKER) (test rvdu=308) 246 U/L 40-150 AST (SGOT) (BEAKER) (test yeax=669) 122 U/L 5-34 ALT (SGPT) (BEAKER) (test jagw=041) 60 U/L 6-55 Specimen moderately [id number] 05:22:00 Test Item Value Reference Range Comments MAGNESIUM (BEAKER) (test rvys=558) 1.9 mg/dL 1.6-2.6 PROTHROMBIN TIME/[id number] 05:17:00 Test Item Value Reference Range Comments PROTIME (BEAKER) (test ujlh=166) 26.7 seconds 11.9-14.2 INR (BEAKER) (test qoqp=712) 2.6 <=5.9 Effective 09/16/2018: PT Reference Range ChangeNew: 11.9-14.2 Previous: 11.7- 14.7RECOMMENDED COUMADIN/WARFARIN INR THERAPY RANGESSTANDARD DOSE: 2.0-3.0 Includes: PROPHYLAXIS for venous thrombosis, systemic embolization; TREATMENT for venous thrombosis and/or pulmonary embolus.HIGH RISK: Target INR is2.5-3.5 for patients wiht mechanical heart valves.CBC W/PLT COUNT & AUTO [id number] 05:05:00 Test Item Value Reference Range Comments WHITE BLOOD CELL COUNT (BEAKER) (test rkdp=819) 5.3 K/ L 3.5-10.5 RED BLOOD CELL COUNT (BEAKER) (test xxjj=216) 2.18 M/ L 4.63-6.08 HEMOGLOBIN (BEAKER) (test bfxj=542) 7.9 GM/DL 13.7-17.5 HEMATOCRIT (BEAKER) (test nefq=991) 23.3 % 40.1-51.0 MEAN CORPUSCULAR VOLUME (BEAKER) (test rsly=360) 106.9 fL 79.0-92.2 MEAN CORPUSCULAR HEMOGLOBIN (BEAKER) (test 36.2 pg 25.7-32.2 hsxt=350) MEAN CORPUSCULAR HEMOGLOBIN CONC (BEAKER) (test 33.9 GM/DL 32.3-36.5 rpgg=265) RED CELL DISTRIBUTION WIDTH (BEAKER) (test 18.6 % 11.6-14.4 navq=292) PLATELET COUNT (BEAKER) (test dkdr=620) 55 K/CU MM 150-450 MEAN PLATELET VOLUME (BEAKER) (test zhqq=249) 9.4 fL 9.4-12.4 NUCLEATED RED BLOOD CELLS (BEAKER) (test 0 /100 WBC 0-0 ltyo=414) NEUTROPHILS RELATIVE PERCENT (BEAKER) (test 65 % gkhm=724) LYMPHOCYTES RELATIVE PERCENT (BEAKER) (test 17 % aiuz=390) MONOCYTES RELATIVE PERCENT (BEAKER) (test 11 % nbxk=350) EOSINOPHILS RELATIVE PERCENT (BEAKER) (test 5 % sinr=439) BASOPHILS RELATIVE PERCENT (BEAKER) (test 0 % qkei=367) NEUTROPHILS ABSOLUTE COUNT (BEAKER) (test 3.49 K/ L 1.78-5.38 laeb=464) LYMPHOCYTES ABSOLUTE COUNT (BEAKER) (test 0.89 K/ L 1.32-3.57 oksb=226) MONOCYTES ABSOLUTE COUNT (BEAKER) (test jihy=537) 0.61 K/ L 0.30-0.82 EOSINOPHILS ABSOLUTE COUNT (BEAKER) (test 0.29 K/ L 0.04-0.54 gimp=008) BASOPHILS ABSOLUTE COUNT (BEAKER) (test mfeg=865) 0.02 K/ L 0.01-0.08 IMMATURE GRANULOCYTES-RELATIVE PERCENT (BEAKER) 1 % 0-1 (test xonq=1225) HEPATIC FUNCTION [id number] 05:12:00 Test Item Value Reference Range Comments TOTAL PROTEIN (BEAKER) (test cgre=929) 6.0 gm/dL 6.0-8.3 ALBUMIN (BEAKER) (test gxkc=7965) 1.8 g/dL 3.5-5.0 BILIRUBIN TOTAL (BEAKER) (test wwip=142) 8.1 mg/dL 0.2-1.2 BILIRUBIN DIRECT (BEAKER) (test nogd=475) 4.3 mg/dL 0.1-0.5 ALKALINE PHOSPHATASE (BEAKER) (test jehx=686) 258 U/L 40-150 AST (SGOT) (BEAKER) (test xflk=844) 115 U/L 5-34 ALT (SGPT) (BEAKER) (test plqi=109) 58 U/L 6-55 Specimen moderately ictericBASIC METABOLIC [id number] 05:11:00 Test Item Value Reference Range Comments SODIUM (BEAKER) (test 125 meq/L 136-145 zrux=815) POTASSIUM (BEAKER) (test 3.8 meq/L 3.5-5.1 ojex=861) CHLORIDE (BEAKER) (test 93 meq/L 98-107 mziq=886) CO2 (BEAKER) (test 27 meq/L 22-29 vrjd=218) BLOOD UREA NITROGEN 17 mg/dL 7-21 (BEAKER) (test rbde=409) CREATININE (BEAKER) (test 0.79 mg/dL 0.57-1.25 whyn=427) GLUCOSE RANDOM (BEAKER) 88 mg/dL 70-105 (test pont=212) CALCIUM (BEAKER) (test 7.2 mg/dL 8.4-10.2 vguz=437) EGFR (BEAKER) (test 103 mL/min/1.73 sq m ESTIMATED GFR IS NOT xywz=2844) ACCURATE CREATININE CLEARANCE IN PREDICTING GLOMERULAR FILTRATION RATE. ESTIMATED GFR IS NOT APPLICABLE FOR DIALYSIS PATIENTS. Specimen moderately [id number] 05:08:00 Test Item Value Reference Range Comments MAGNESIUM (BEAKER) (test qgfk=509) 1.8 mg/dL 1.6-2.6 CBC W/PLT COUNT & AUTO [id number] 05:05:00 Test Item Value Reference Range Comments WHITE BLOOD CELL COUNT (BEAKER) (test hrtz=717) 5.9 K/ L 3.5-10.5 RED BLOOD CELL COUNT (BEAKER) (test oqgv=206) 2.16 M/ L 4.63-6.08 HEMOGLOBIN (BEAKER) (test btwc=517) 7.7 GM/DL 13.7-17.5 HEMATOCRIT (BEAKER) (test cziu=649) 23.1 % 40.1-51.0 MEAN CORPUSCULAR VOLUME (BEAKER) (test sfwx=290) 106.9 fL 79.0-92.2 MEAN CORPUSCULAR HEMOGLOBIN (BEAKER) (test 35.6 pg 25.7-32.2 zvbb=825) MEAN CORPUSCULAR HEMOGLOBIN CONC (BEAKER) (test 33.3 GM/DL 32.3-36.5 izcm=053) RED CELL DISTRIBUTION WIDTH (BEAKER) (test 18.5 % 11.6-14.4 mkqm=550) PLATELET COUNT (BEAKER) (test mmcp=269) 60 K/CU MM 150-450 MEAN PLATELET VOLUME (BEAKER) (test cwwq=701) 10.5 fL 9.4-12.4 NUCLEATED RED BLOOD CELLS (BEAKER) (test 0 /100 WBC 0-0 xbtk=936) NEUTROPHILS RELATIVE PERCENT (BEAKER) (test 65 % dwxw=341) LYMPHOCYTES RELATIVE PERCENT (BEAKER) (test 17 % mfps=382) MONOCYTES RELATIVE PERCENT (BEAKER) (test 12 % vxjx=924) EOSINOPHILS RELATIVE PERCENT (BEAKER) (test 5 % myrw=175) BASOPHILS RELATIVE PERCENT (BEAKER) (test 1 % kkvj=400) NEUTROPHILS ABSOLUTE COUNT (BEAKER) (test 3.80 K/ L 1.78-5.38 eqzo=386) LYMPHOCYTES ABSOLUTE COUNT (BEAKER) (test 0.98 K/ L 1.32-3.57 yaau=745) MONOCYTES ABSOLUTE COUNT (BEAKER) (test tcuj=990) 0.70 K/ L 0.30-0.82 EOSINOPHILS ABSOLUTE COUNT (BEAKER) (test 0.30 K/ L 0.04-0.54 fhlg=361) BASOPHILS ABSOLUTE COUNT (BEAKER) (test haec=187) 0.03 K/ L 0.01-0.08 IMMATURE GRANULOCYTES-RELATIVE PERCENT (BEAKER) 1 % 0-1 (test plrb=5282) PROTHROMBIN [id number] 04:56:00 Test Item Value Reference Range Comments PROTIME (BEAKER) (test cjbn=225) 26.5 seconds 11.9-14.2 INR (BEAKER) (test tbwd=592) 2.6 <=5.9 Effective 09/16/2018: PT Reference Range ChangeNew: 11.9-14.2 Previous: 11.7- 14.7RECOMMENDED COUMADIN/WARFARIN INR THERAPY RANGESSTANDARD DOSE: 2.0-3.0 Includes: PROPHYLAXIS for venous thrombosis, systemic embolization; TREATMENT for venous thrombosis and/or pulmonary embolus.HIGH RISK: Target INR is2.5-3.5 for patients wiht mechanical heart valves.HEPATIC FUNCTION [id number] 04:58 :00 Test Item Value Reference Range Comments TOTAL PROTEIN (BEAKER) (test izzx=285) 5.7 gm/dL 6.0-8.3 ALBUMIN (BEAKER) (test hdih=7829) 1.7 g/dL 3.5-5.0 BILIRUBIN TOTAL (BEAKER) (test ovap=672) 7.4 mg/dL 0.2-1.2 BILIRUBIN DIRECT (BEAKER) (test drnb=747) 4.3 mg/dL 0.1-0.5 ALKALINE PHOSPHATASE (BEAKER) (test rifh=891) 271 U/L 40-150 AST (SGOT) (BEAKER) (test neue=338) 111 U/L 5-34 ALT (SGPT) (BEAKER) (test abgb=022) 52 U/L 6-55 Specimen moderately ictericBASIC METABOLIC [id number] 04:58:00 Test Item Value Reference Range Comments SODIUM (BEAKER) (test 126 meq/L 136-145 owrs=649) POTASSIUM (BEAKER) (test 3.7 meq/L 3.5-5.1 hyvo=991) CHLORIDE (BEAKER) (test 96 meq/L 98-107 lqkd=663) CO2 (BEAKER) (test 27 meq/L 22-29 ccfr=653) BLOOD UREA NITROGEN 17 mg/dL 7-21 (BEAKER) (test gnfk=559) CREATININE (BEAKER) (test 0.75 mg/dL 0.57-1.25 elym=761) GLUCOSE RANDOM (BEAKER) 82 mg/dL 70-105 (test enpd=909) CALCIUM (BEAKER) (test 7.1 mg/dL 8.4-10.2 azbs=843) EGFR (BEAKER) (test 109 mL/min/1.73 sq m ESTIMATED GFR IS NOT xmuy=3907) ACCURATE CREATININE CLEARANCE IN PREDICTING GLOMERULAR FILTRATION RATE. ESTIMATED GFR IS NOT APPLICABLE FOR DIALYSIS PATIENTS. Specimen moderately [id number] 04:57:00 Test Item Value Reference Range Comments MAGNESIUM (BEAKER) (test ajia=981) 1.9 mg/dL 1.6-2.6 CBC W/PLT COUNT & AUTO [id number] 04:57:00 Test Item Value Reference Range Comments WHITE BLOOD CELL COUNT (BEAKER) (test khol=441) 6.1 K/ L 3.5-10.5 RED BLOOD CELL COUNT (BEAKER) (test cobn=734) 1.81 M/ L 4.63-6.08 HEMOGLOBIN (BEAKER) (test ajvt=777) 6.8 GM/DL 13.7-17.5 HEMATOCRIT (BEAKER) (test zbfb=195) 20.2 % 40.1-51.0 MEAN CORPUSCULAR VOLUME (BEAKER) (test zhoi=582) 111.6 fL 79.0-92.2 MEAN CORPUSCULAR HEMOGLOBIN (BEAKER) (test 37.6 pg 25.7-32.2 cxxx=884) MEAN CORPUSCULAR HEMOGLOBIN CONC (BEAKER) (test 33.7 GM/DL 32.3-36.5 lydc=745) RED CELL DISTRIBUTION WIDTH (BEAKER) (test 15.4 % 11.6-14.4 zukt=741) PLATELET COUNT (BEAKER) (test gcfd=154) 55 K/CU MM 150-450 MEAN PLATELET VOLUME (BEAKER) (test crqb=589) 9.5 fL 9.4-12.4 NUCLEATED RED BLOOD CELLS (BEAKER) (test 0 /100 WBC 0-0 lfyk=824) NEUTROPHILS RELATIVE PERCENT (BEAKER) (test 64 % xvyn=086) LYMPHOCYTES RELATIVE PERCENT (BEAKER) (test 18 % qqgk=250) MONOCYTES RELATIVE PERCENT (BEAKER) (test 11 % msna=186) EOSINOPHILS RELATIVE PERCENT (BEAKER) (test 6 % xvax=912) BASOPHILS RELATIVE PERCENT (BEAKER) (test 1 % qekq=002) NEUTROPHILS ABSOLUTE COUNT (BEAKER) (test 3.88 K/ L 1.78-5.38 jygo=824) LYMPHOCYTES ABSOLUTE COUNT (BEAKER) (test 1.09 K/ L 1.32-3.57 rzbj=501) MONOCYTES ABSOLUTE COUNT (BEAKER) (test kioe=879) 0.64 K/ L 0.30-0.82 EOSINOPHILS ABSOLUTE COUNT (BEAKER) (test 0.39 K/ L 0.04-0.54 oitn=944) BASOPHILS ABSOLUTE COUNT (BEAKER) (test xnba=060) 0.03 K/ L 0.01-0.08 IMMATURE GRANULOCYTES-RELATIVE PERCENT (BEAKER) 1 % 0-1 (test zrcu=8346) PROTHROMBIN [id number] 04:47:00 Test Item Value Reference Range Comments PROTIME (BEAKER) (test otdf=953) 26.5 seconds 11.9-14.2 INR (BEAKER) (test ytrk=925) 2.6 <=5.9 Effective 09/16/2018: PT Reference Range ChangeNew: 11.9-14.2 Previous: 11.7- 14.7RECOMMENDED COUMADIN/WARFARIN INR THERAPY RANGESSTANDARD DOSE: 2.0-3.0 Includes: PROPHYLAXIS for venous thrombosis, systemic embolization; TREATMENT for venous thrombosis and/or pulmonary embolus.HIGH RISK: Target INR is2.5-3.5 for patients wiht mechanical heart valves.CBC W/PLT COUNT & AUTO [id number] 06:36:00 Test Item Value Reference Range Comments WHITE BLOOD CELL COUNT (BEAKER) (test ygbd=383) 6.1 K/ L 3.5-10.5 RED BLOOD CELL COUNT (BEAKER) (test kzqp=022) 2.04 M/ L 4.63-6.08 HEMOGLOBIN (BEAKER) (test lcfs=422) 7.5 GM/DL 13.7-17.5 HEMATOCRIT (BEAKER) (test joob=470) 22.7 % 40.1-51.0 MEAN CORPUSCULAR VOLUME (BEAKER) (test zksb=657) 111.3 fL 79.0-92.2 MEAN CORPUSCULAR HEMOGLOBIN (BEAKER) (test 36.8 pg 25.7-32.2 nnha=750) MEAN CORPUSCULAR HEMOGLOBIN CONC (BEAKER) (test 33.0 GM/DL 32.3-36.5 pefz=661) RED CELL DISTRIBUTION WIDTH (BEAKER) (test 15.5 % 11.6-14.4 xzgd=815) PLATELET COUNT (BEAKER) (test ulew=777) 71 K/CU MM 150-450 MEAN PLATELET VOLUME (BEAKER) (test tvft=501) 10.1 fL 9.4-12.4 NUCLEATED RED BLOOD CELLS (BEAKER) (test 0 /100 WBC 0-0 nkdr=781) NEUTROPHILS RELATIVE PERCENT (BEAKER) (test 70 % opsd=869) LYMPHOCYTES RELATIVE PERCENT (BEAKER) (test 13 % vpno=357) MONOCYTES RELATIVE PERCENT (BEAKER) (test 10 % utir=251) EOSINOPHILS RELATIVE PERCENT (BEAKER) (test 5 % kdso=257) BASOPHILS RELATIVE PERCENT (BEAKER) (test 1 % qboo=729) NEUTROPHILS ABSOLUTE COUNT (BEAKER) (test 4.28 K/ L 1.78-5.38 obgz=893) LYMPHOCYTES ABSOLUTE COUNT (BEAKER) (test 0.78 K/ L 1.32-3.57 fdnw=661) MONOCYTES ABSOLUTE COUNT (BEAKER) (test ngxp=394) 0.61 K/ L 0.30-0.82 EOSINOPHILS ABSOLUTE COUNT (BEAKER) (test 0.32 K/ L 0.04-0.54 kryq=728) BASOPHILS ABSOLUTE COUNT (BEAKER) (test xkuq=548) 0.04 K/ L 0.01-0.08 IMMATURE GRANULOCYTES-RELATIVE PERCENT (BEAKER) 1 % 0-1 (test bhnw=2526) BASIC METABOLIC [id number] 05:52:00 Test Item Value Reference Range Comments SODIUM (BEAKER) (test 124 meq/L 136-145 demc=903) POTASSIUM (BEAKER) (test 3.7 meq/L 3.5-5.1 Specimen slightly eaqg=328) hemolyzed CHLORIDE (BEAKER) (test 94 meq/L 98-107 wgoh=432) CO2 (BEAKER) (test 24 meq/L 22-29 kjxn=613) BLOOD UREA NITROGEN 19 mg/dL 7-21 (BEAKER) (test awkt=694) CREATININE (BEAKER) (test 0.73 mg/dL 0.57-1.25 Specimen slightly tmyo=259) hemolyzed GLUCOSE RANDOM (BEAKER) 91 mg/dL 70-105 (test eryh=415) CALCIUM (BEAKER) (test 7.4 mg/dL 8.4-10.2 gkbz=712) EGFR (BEAKER) (test 112 mL/min/1.73 sq m ESTIMATED GFR IS NOT wbqq=3035) ACCURATE CREATININE CLEARANCE IN PREDICTING GLOMERULAR FILTRATION RATE. ESTIMATED GFR IS NOT APPLICABLE FOR DIALYSIS PATIENTS. Specimen markedly ictericHEPATIC FUNCTION [id number] 05:52:00 Test Item Value Reference Range Comments TOTAL PROTEIN (BEAKER) (test 6.3 gm/dL 6.0-8.3 Specimen slightly hemolyzed ehbs=324) ALBUMIN (BEAKER) (test 1.9 g/dL 3.5-5.0 Specimen slightly hemolyzed xmdw=3069) BILIRUBIN TOTAL (BEAKER) (test 9.4 mg/dL 0.2-1.2 Specimen slightly hemolyzed tygo=828) BILIRUBIN DIRECT (BEAKER) (test 4.9 mg/dL 0.1-0.5 Specimen slightly hemolyzed cimd=712) ALKALINE PHOSPHATASE (BEAKER) 263 U/L 40-150 (test pxdc=035) AST (SGOT) (BEAKER) (test 138 U/L 5-34 Specimen slightly hemolyzed xxjh=714) ALT (SGPT) (BEAKER) (test 61 U/L 6-55 Specimen slightly hemolyzed zzaz=000) Specimen markedly [id number] 05:49:00 Test Item Value Reference Range Comments MAGNESIUM (BEAKER) (test 1.9 mg/dL 1.6-2.6 Specimen slightly hemolyzed meev=877) [id number] 05:49:00 Test Item Value Reference Range Comments PHOSPHORUS (BEAKER) (test 3.3 mg/dL 2.3-4.7 Specimen slightly hemolyzed jpas=948) PROTHROMBIN [id number] 05:44:00 Test Item Value Reference Range Comments PROTIME (BEAKER) (test xhsf=488) 24.9 seconds 11.9-14.2 INR (BEAKER) (test qrsk=427) 2.4 <=5.9 Effective 09/16/2018: PT Reference Range ChangeNew: 11.9-14.2 Previous: 11.7- 14.7RECOMMENDED COUMADIN/WARFARIN INR THERAPY RANGESSTANDARD DOSE: 2.0-3.0 Includes: PROPHYLAXIS for venous thrombosis, systemic embolization; TREATMENT for venous thrombosis and/or pulmonary embolus.HIGH RISK: Target INR is2.5-3.5 for patients wiht mechanical heart valves.CALCIUM, [id number] 05:27:00 Test Item Value Reference Range Comments CALCIUM IONIZED (BEAKER) (test edpy=875) 0.94 mmol/L 1.12-1.27 PH, BLOOD (BEAKER) (test tusx=7687) 7.52 RAD, CHEST, 1 VIEW, NON [id number] 05:21:00Reason for exam:->Fluid overloadShould this be performed [...] pleural effusion or acute bony abnormality. Signed: Brad Arredondo MDReport Verified Date/Time: 2018 05:21:06 Electronically signed by: BRAD ARREDONDO M.D. on 2018 05:21 AMCOMPREHENSIVE METABOLIC [id number] 08:44:00 Test Item Value Reference Range Comments TOTAL PROTEIN (BEAKER) 6.4 gm/dL 6.0-8.3 Specimen slightly (test qbtm=453) hemolyzed ALBUMIN (BEAKER) (test 1.9 g/dL 3.5-5.0 Specimen slightly leyx=4347) hemolyzed ALKALINE PHOSPHATASE 269 U/L 40-150 (BEAKER) (test bfsp=359) BILIRUBIN TOTAL (BEAKER) 7.9 mg/dL 0.2-1.2 Specimen slightly (test gvtq=844) hemolyzed SODIUM (BEAKER) (test 125 meq/L 136-145 nqah=506) POTASSIUM (BEAKER) (test 3.5 meq/L 3.5-5.1 Specimen slightly ojuc=988) hemolyzed CHLORIDE (BEAKER) (test 93 meq/L 98-107 qqcq=803) CO2 (BEAKER) (test 25 meq/L 22-29 xflc=119) BLOOD UREA NITROGEN 16 mg/dL 7-21 (BEAKER) (test xzcp=236) CREATININE (BEAKER) (test 0.74 mg/dL 0.57-1.25 Specimen slightly byoe=675) hemolyzed GLUCOSE RANDOM (BEAKER) 72 mg/dL 70-105 (test rahz=929) CALCIUM (BEAKER) (test 7.3 mg/dL 8.4-10.2 lpdx=499) AST (SGOT) (BEAKER) (test 146 U/L 5-34 Specimen slightly qvut=747) hemolyzed ALT (SGPT) (BEAKER) (test 57 U/L 6-55 Specimen slightly adkm=808) hemolyzed EGFR (BEAKER) (test 111 mL/min/1.73 sq ESTIMATED GFR IS NOT jmfk=9172) m ACCURATE CREATININE CLEARANCE IN PREDICTING GLOMERULAR FILTRATION RATE. ESTIMATED GFR IS NOT APPLICABLE FOR DIALYSIS PATIENTS. Specimen moderately ictericHEPATIC FUNCTION [id number] 08:43:00 Test Item Value Reference Range Comments TOTAL PROTEIN (BEAKER) (test 6.4 gm/dL 6.0-8.3 Specimen slightly hemolyzed eedn=458) ALBUMIN (BEAKER) (test 1.9 g/dL 3.5-5.0 Specimen slightly hemolyzed ipzx=6245) BILIRUBIN TOTAL (BEAKER) (test 7.9 mg/dL 0.2-1.2 Specimen slightly hemolyzed xwlp=759) BILIRUBIN DIRECT (BEAKER) (test 4.0 mg/dL 0.1-0.5 Specimen slightly hemolyzed qzri=746) ALKALINE PHOSPHATASE (BEAKER) 269 U/L 40-150 (test emxk=470) AST (SGOT) (BEAKER) (test 146 U/L 5-34 Specimen slightly hemolyzed mgzi=197) ALT (SGPT) (BEAKER) (test 57 U/L 6-55 Specimen slightly hemolyzed livq=304) Specimen moderately [id number] 08:03:00 Test Item Value Reference Range Comments MAGNESIUM (BEAKER) (test 1.6 mg/dL 1.6-2.6 Specimen slightly hemolyzed uctw=449) [id number] 08:03:00 Test Item Value Reference Range Comments PHOSPHORUS (BEAKER) (test 3.6 mg/dL 2.3-4.7 Specimen slightly hemolyzed fxys=655) B-TYPE NATRIURETIC FACTOR (BNP)[id number] 06:11:00 Test Item Value Reference Range Comments B-TYPE NATRIURETIC PEPTIDE (BEAKER) (test nlxg=931) 71 pg/mL 0-100 CBC W/PLT COUNT & AUTO [id number] 06:01:00 Test Item Value Reference Range Comments WHITE BLOOD CELL COUNT (BEAKER) (test cnqp=603) 5.9 K/ L 3.5-10.5 RED BLOOD CELL COUNT (BEAKER) (test czrt=606) 2.06 M/ L 4.63-6.08 HEMOGLOBIN (BEAKER) (test htlp=978) 7.5 GM/DL 13.7-17.5 HEMATOCRIT (BEAKER) (test cuwr=301) 22.7 % 40.1-51.0 MEAN CORPUSCULAR VOLUME (BEAKER) (test ocgp=301) 110.2 fL 79.0-92.2 MEAN CORPUSCULAR HEMOGLOBIN (BEAKER) (test 36.4 pg 25.7-32.2 yvbp=938) MEAN CORPUSCULAR HEMOGLOBIN CONC (BEAKER) (test 33.0 GM/DL 32.3-36.5 lxgs=420) RED CELL DISTRIBUTION WIDTH (BEAKER) (test 15.5 % 11.6-14.4 vqdz=260) PLATELET COUNT (BEAKER) (test kzst=816) 74 K/CU MM 150-450 MEAN PLATELET VOLUME (BEAKER) (test vult=185) 10.7 fL 9.4-12.4 NUCLEATED RED BLOOD CELLS (BEAKER) (test 0 /100 WBC 0-0 knwo=028) NEUTROPHILS RELATIVE PERCENT (BEAKER) (test 68 % dvby=228) LYMPHOCYTES RELATIVE PERCENT (BEAKER) (test 15 % aulq=304) MONOCYTES RELATIVE PERCENT (BEAKER) (test 11 % lkeo=066) EOSINOPHILS RELATIVE PERCENT (BEAKER) (test 6 % ngsm=996) BASOPHILS RELATIVE PERCENT (BEAKER) (test 1 % shjt=960) NEUTROPHILS ABSOLUTE COUNT (BEAKER) (test 4.03 K/ L 1.78-5.38 beea=350) LYMPHOCYTES ABSOLUTE COUNT (BEAKER) (test 0.87 K/ L 1.32-3.57 epiu=627) MONOCYTES ABSOLUTE COUNT (BEAKER) (test jvki=711) 0.62 K/ L 0.30-0.82 EOSINOPHILS ABSOLUTE COUNT (BEAKER) (test 0.34 K/ L 0.04-0.54 czqj=018) BASOPHILS ABSOLUTE COUNT (BEAKER) (test rtna=805) 0.03 K/ L 0.01-0.08 IMMATURE GRANULOCYTES-RELATIVE PERCENT (BEAKER) 1 % 0-1 (test rltb=4188) PROTHROMBIN [id number] 05:50:00 Test Item Value Reference Range Comments PROTIME (BEAKER) (test boms=140) 25.3 seconds 11.9-14.2 INR (BEAKER) (test ozrq=024) 2.4 <=5.9 Effective 09/16/2018: PT Reference Range ChangeNew: 11.9-14.2 Previous: 11.7- 14.7RECOMMENDED COUMADIN/WARFARIN INR THERAPY RANGESSTANDARD DOSE: 2.0-3.0 Includes: PROPHYLAXIS for venous thrombosis, systemic embolization; TREATMENT for venous thrombosis and/or pulmonary embolus.HIGH RISK: Target INR is2.5-3.5 for patients wiht mechanical heart valves.CALCIUM, [id number] 05:44:00 Test Item Value Reference Range Comments CALCIUM IONIZED (BEAKER) (test tcia=028) 0.93 mmol/L 1.12-1.27 PH, BLOOD (BEAKER) (test pzyb=3542) 7.51 HEPATIC FUNCTION [id number] 06:46:00 Test Item Value Reference Range Comments TOTAL PROTEIN (BEAKER) (test hhbh=336) 6.3 gm/dL 6.0-8.3 ALBUMIN (BEAKER) (test imhs=1054) 1.9 g/dL 3.5-5.0 BILIRUBIN TOTAL (BEAKER) (test pula=624) 7.6 mg/dL 0.2-1.2 BILIRUBIN DIRECT (BEAKER) (test fkvo=662) 4.0 mg/dL 0.1-0.5 ALKALINE PHOSPHATASE (BEAKER) (test qrtq=000) 278 U/L 40-150 AST (SGOT) (BEAKER) (test iuwc=933) 124 U/L 5-34 ALT (SGPT) (BEAKER) (test zbhl=309) 55 U/L 6-55 Specimen moderately ictericCOMPREHENSIVE METABOLIC [id number] 06:32:00 Test Item Value Reference Range Comments TOTAL PROTEIN (BEAKER) 6.3 gm/dL 6.0-8.3 (test vdwy=784) ALBUMIN (BEAKER) (test 1.9 g/dL 3.5-5.0 dqpp=2767) ALKALINE PHOSPHATASE 278 U/L 40-150 (BEAKER) (test rxbm=238) BILIRUBIN TOTAL (BEAKER) 7.6 mg/dL 0.2-1.2 (test esjq=170) SODIUM (BEAKER) (test 123 meq/L 136-145 phiu=787) POTASSIUM (BEAKER) (test 4.6 meq/L 3.5-5.1 ahua=197) CHLORIDE (BEAKER) (test 94 meq/L 98-107 xdka=228) CO2 (BEAKER) (test 26 meq/L 22-29 piuw=605) BLOOD UREA NITROGEN 16 mg/dL 7-21 (BEAKER) (test xmet=044) CREATININE (BEAKER) (test 0.69 mg/dL 0.57-1.25 jvol=391) GLUCOSE RANDOM (BEAKER) 91 mg/dL 70-105 (test upyo=868) CALCIUM (BEAKER) (test 7.6 mg/dL 8.4-10.2 ytmd=270) AST (SGOT) (BEAKER) (test 124 U/L 5-34 udmx=855) ALT (SGPT) (BEAKER) (test 55 U/L 6-55 zpky=018) EGFR (BEAKER) (test 120 mL/min/1.73 sq ESTIMATED GFR IS NOT jzyz=2436) m ACCURATE CREATININE CLEARANCE IN PREDICTING GLOMERULAR FILTRATION RATE. ESTIMATED GFR IS NOT APPLICABLE FOR DIALYSIS PATIENTS. Specimen moderately [id number] 05:45:00 Test Item Value Reference Range Comments PHOSPHORUS (BEAKER) (test hnwc=572) 3.0 mg/dL 2.3-4.7 [id number] 05:45:00 Test Item Value Reference Range Comments MAGNESIUM (BEAKER) (test kbfh=458) 1.9 mg/dL 1.6-2.6 CBC W/PLT COUNT & AUTO [id number] 05:03:00 Test Item Value Reference Range Comments WHITE BLOOD CELL COUNT (BEAKER) (test msqr=738) 5.8 K/ L 3.5-10.5 RED BLOOD CELL COUNT (BEAKER) (test lfgm=285) 2.05 M/ L 4.63-6.08 HEMOGLOBIN (BEAKER) (test iwgt=729) 7.5 GM/DL 13.7-17.5 HEMATOCRIT (BEAKER) (test qugb=574) 22.7 % 40.1-51.0 MEAN CORPUSCULAR VOLUME (BEAKER) (test blyy=979) 110.7 fL 79.0-92.2 MEAN CORPUSCULAR HEMOGLOBIN (BEAKER) (test 36.6 pg 25.7-32.2 wpfn=844) MEAN CORPUSCULAR HEMOGLOBIN CONC (BEAKER) (test 33.0 GM/DL 32.3-36.5 bjiu=923) RED CELL DISTRIBUTION WIDTH (BEAKER) (test 15.2 % 11.6-14.4 ucly=654) PLATELET COUNT (BEAKER) (test vkvs=311) 70 K/CU MM 150-450 MEAN PLATELET VOLUME (BEAKER) (test vijj=557) 10.2 fL 9.4-12.4 NUCLEATED RED BLOOD CELLS (BEAKER) (test 0 /100 WBC 0-0 btrm=424) NEUTROPHILS RELATIVE PERCENT (BEAKER) (test 70 % qtud=679) LYMPHOCYTES RELATIVE PERCENT (BEAKER) (test 15 % rqjl=318) MONOCYTES RELATIVE PERCENT (BEAKER) (test 10 % pnul=069) EOSINOPHILS RELATIVE PERCENT (BEAKER) (test 5 % nkjf=163) BASOPHILS RELATIVE PERCENT (BEAKER) (test 1 % zgkf=708) NEUTROPHILS ABSOLUTE COUNT (BEAKER) (test 4.04 K/ L 1.78-5.38 qurn=379) LYMPHOCYTES ABSOLUTE COUNT (BEAKER) (test 0.84 K/ L 1.32-3.57 fpvz=361) MONOCYTES ABSOLUTE COUNT (BEAKER) (test scvz=677) 0.56 K/ L 0.30-0.82 EOSINOPHILS ABSOLUTE COUNT (BEAKER) (test 0.26 K/ L 0.04-0.54 plbi=401) BASOPHILS ABSOLUTE COUNT (BEAKER) (test bckg=871) 0.03 K/ L 0.01-0.08 IMMATURE GRANULOCYTES-RELATIVE PERCENT (BEAKER) 1 % 0-1 (test buzw=4441) PROTHROMBIN [id number] 04:55:00 Test Item Value Reference Range Comments PROTIME (BEAKER) (test rgmr=043) 25.3 seconds 11.9-14.2 INR (BEAKER) (test veji=570) 2.5 <=5.9 Effective 09/16/2018: PT Reference Range ChangeNew: 11.9-14.2 Previous: 11.7- 14.7RECOMMENDED COUMADIN/WARFARIN INR THERAPY RANGESSTANDARD DOSE: 2.0-3.0 Includes: PROPHYLAXIS for venous thrombosis, systemic embolization; TREATMENT for venous thrombosis and/or pulmonary embolus.HIGH RISK: Target INR is2.5-3.5 for patients wiht mechanical heart valves.CALCIUM, [id number] 04:51:00 Test Item Value Reference Range Comments CALCIUM IONIZED (BEAKER) (test hzvv=536) 1.05 mmol/L 1.12-1.27 PH, BLOOD (BEAKER) (test vvss=9503) 7.46 CORTISOL,60 [id number] 00:43:00 Test Item Value Reference Range Comments CORTISOL BASELINE NETWORKED (BEAKER) (test 2.9 mcg/dL hcly=3328) CORTISOL 30 MINUTE NETWORKED (BEAKER) (test 9.2 mcg/dL rlig=0076) CORTISOL, 60 MINUTE (BEAKER) (test uvvs=5727) 10.7 ug/dL ACTH STIMULATION TEST INTERPRETATION GUIDELINES(Synonyms: [...] serum cortisollevel 60 minutes after cosyntropin administration.CORTISOL,30 [id number] 19:52:00 Test Item Value Reference Range Comments CORTISOL BASELINE NETWORKED (test 2.9 mcg/dL cknn=5730) CORTISOL, 30 MINUTE (BEAKER) (test ftez=7799) 9.2 ug/dL ACTH STIMULATION TEST INTERPRETATION GUIDELINES(Synonyms: [...] Draw serum cortisollevel 60 minutes after cosyntropin administration.CORTISOL,[id number] 19:14:00 Test Item Value Reference Range Comments CORTISOL, BASELINE (ANA MARIA) (test tqda=4922) 2.9 ug/dL ACTH STIMULATION TEST INTERPRETATION GUIDELINES(Synonyms: [...] study by Deanna et al (KACEY 2000,283( [phone]):3682-45), the ACTH Stimulation Test provides important prognostic [...] cortisollevel 60 minutes after cosyntropin administration.COMPREHENSIVE METABOLIC [id number] 05:39: 00 Test Item Value Reference Range Comments TOTAL PROTEIN (BEAKER) 6.5 gm/dL 6.0-8.3 (test uprg=482) ALBUMIN (BEAKER) (test 2.0 g/dL 3.5-5.0 kscc=5863) ALKALINE PHOSPHATASE 295 U/L 40-150 (BEAKER) (test kwrh=118) BILIRUBIN TOTAL (BEAKER) 7.5 mg/dL 0.2-1.2 (test hvcn=028) SODIUM (BEAKER) (test 123 meq/L 136-145 hpkg=942) POTASSIUM (BEAKER) (test 3.9 meq/L 3.5-5.1 fqgq=993) CHLORIDE (BEAKER) (test 92 meq/L 98-107 alnw=927) CO2 (BEAKER) (test 26 meq/L 22-29 mmgm=306) BLOOD UREA NITROGEN 16 mg/dL 7-21 (BEAKER) (test bwhf=882) CREATININE (BEAKER) (test 0.75 mg/dL 0.57-1.25 dlqi=287) GLUCOSE RANDOM (BEAKER) 83 mg/dL 70-105 (test tbmc=712) CALCIUM (BEAKER) (test 7.8 mg/dL 8.4-10.2 wvxj=840) AST (SGOT) (BEAKER) (test 127 U/L 5-34 decn=180) ALT (SGPT) (BEAKER) (test 57 U/L 6-55 xgtt=888) EGFR (BEAKER) (test 109 mL/min/1.73 sq ESTIMATED GFR IS NOT vpvf=4596) m ACCURATE CREATININE CLEARANCE IN PREDICTING GLOMERULAR FILTRATION RATE. ESTIMATED GFR IS NOT APPLICABLE FOR DIALYSIS PATIENTS. Specimen moderately ictericTSH/FREE T4 IF [id number] 05:35:00 Test Item Value Reference Range Comments THYROID STIMULATING HORMONE (BEAKER) (test 2.13 uIU/mL 0.35-4.94 iooz=779) [id number] 05:30:00 Test Item Value Reference Range Comments PHOSPHORUS (BEAKER) (test qjds=801) 3.0 mg/dL 2.3-4.7 [id number] 05:30:00 Test Item Value Reference Range Comments MAGNESIUM (BEAKER) (test xrdb=403) 2.0 mg/dL 1.6-2.6 HEPATIC FUNCTION [id number] 05:30:00 Test Item Value Reference Range Comments TOTAL PROTEIN (BEAKER) (test yflv=543) 6.5 gm/dL 6.0-8.3 ALBUMIN (BEAKER) (test vlir=1521) 2.0 g/dL 3.5-5.0 BILIRUBIN TOTAL (BEAKER) (test hzod=120) 7.5 mg/dL 0.2-1.2 BILIRUBIN DIRECT (BEAKER) (test puqg=717) 4.1 mg/dL 0.1-0.5 ALKALINE PHOSPHATASE (BEAKER) (test objp=264) 295 U/L 40-150 AST (SGOT) (BEAKER) (test ahsp=441) 127 U/L 5-34 ALT (SGPT) (BEAKER) (test tyfm=476) 57 U/L 6-55 Specimen moderately ictericCBC W/PLT COUNT & AUTO [id number] 05: 04:00 Test Item Value Reference Range Comments WHITE BLOOD CELL COUNT (BEAKER) (test ucnh=802) 7.1 K/ L 3.5-10.5 RED BLOOD CELL COUNT (BEAKER) (test juqr=755) 2.15 M/ L 4.63-6.08 HEMOGLOBIN (BEAKER) (test amfn=434) 7.8 GM/DL 13.7-17.5 HEMATOCRIT (BEAKER) (test vaiq=205) 24.3 % 40.1-51.0 MEAN CORPUSCULAR VOLUME (BEAKER) (test fvxp=135) 113.0 fL 79.0-92.2 MEAN CORPUSCULAR HEMOGLOBIN (BEAKER) (test 36.3 pg 25.7-32.2 btjy=792) MEAN CORPUSCULAR HEMOGLOBIN CONC (BEAKER) (test 32.1 GM/DL 32.3-36.5 uapr=982) RED CELL DISTRIBUTION WIDTH (BEAKER) (test 15.4 % 11.6-14.4 ypyj=678) PLATELET COUNT (BEAKER) (test gklt=509) 76 K/CU MM 150-450 MEAN PLATELET VOLUME (BEAKER) (test txja=221) 10.0 fL 9.4-12.4 NUCLEATED RED BLOOD CELLS (BEAKER) (test 0 /100 WBC 0-0 wxah=168) NEUTROPHILS RELATIVE PERCENT (BEAKER) (test 63 % jrpx=351) LYMPHOCYTES RELATIVE PERCENT (BEAKER) (test 15 % gjst=310) MONOCYTES RELATIVE PERCENT (BEAKER) (test 13 % icri=690) EOSINOPHILS RELATIVE PERCENT (BEAKER) (test 8 % zxkk=741) BASOPHILS RELATIVE PERCENT (BEAKER) (test 1 % gtmd=061) NEUTROPHILS ABSOLUTE COUNT (BEAKER) (test 4.50 K/ L 1.78-5.38 czke=415) LYMPHOCYTES ABSOLUTE COUNT (BEAKER) (test 1.03 K/ L 1.32-3.57 vsgx=326) MONOCYTES ABSOLUTE COUNT (BEAKER) (test cpki=384) 0.90 K/ L 0.30-0.82 EOSINOPHILS ABSOLUTE COUNT (BEAKER) (test 0.55 K/ L 0.04-0.54 vcbb=519) BASOPHILS ABSOLUTE COUNT (BEAKER) (test lwyd=986) 0.04 K/ L 0.01-0.08 IMMATURE GRANULOCYTES-RELATIVE PERCENT (BEAKER) 1 % 0-1 (test nsyt=0504) PROTHROMBIN [id number] 05:03:00 Test Item Value Reference Range Comments PROTIME (BEAKER) (test aeri=261) 25.0 seconds 11.9-14.2 INR (BEAKER) (test ourw=380) 2.4 <=5.9 Effective 09/16/2018: PT Reference Range ChangeNew: 11.9-14.2 Previous: 11.7- 14.7RECOMMENDED COUMADIN/WARFARIN INR THERAPY RANGESSTANDARD DOSE: 2.0-3.0 Includes: PROPHYLAXIS for venous thrombosis, systemic embolization; TREATMENT for venous thrombosis and/or pulmonary embolus.HIGH RISK: Target INR is2.5-3.5 for patients wiht mechanical heart valves.CALCIUM, [id number] 04:56:00 Test Item Value Reference Range Comments CALCIUM IONIZED (BEAKER) (test ggbs=054) 1.03 mmol/L 1.12-1.27 PH, BLOOD (BEAKER) (test nkpt=6681) 7.43 SODIUM, RANDOM [id number] 19:22:00 Test Item Value Reference Range Comments SODIUM URINE (BEAKER) (test iykt=728) < meq/L Reference Range: No NormalsOSMOLALITY, [id number] 18:48:00 Test Item Value Reference Range Comments OSMOLALITY URINE (BEAKER) (test nvnc=203) 542 mOsm/kg 40-1,400 [id number] 18:26:00 Test Item Value Reference Range Comments SODIUM (BEAKER) (test nbqh=478) 124 meq/L 136-145 POTASSIUM (BEAKER) (test 4.3 meq/L 3.5-5.1 Specimen slightly hemolyzed tqbr=826) CHLORIDE (BEAKER) (test 93 meq/L 98-107 yptw=661) CO2 (BEAKER) (test brps=014) 25 meq/L Call [id number] 15:21:00 Test Item Value Reference Range Comments CORTISOL, TOTAL (BEAKER) (test zwdu=2582) 3.1 ug/dL 3.7-19.4 HEPATIC FUNCTION [id number] 06:32:00 Test Item Value Reference Range Comments TOTAL PROTEIN (BEAKER) (test 6.4 gm/dL 6.0-8.3 Specimen slightly hemolyzed cevg=342) ALBUMIN (BEAKER) (test 1.9 g/dL 3.5-5.0 Specimen slightly hemolyzed hdty=3794) BILIRUBIN TOTAL (BEAKER) (test 7.7 mg/dL 0.2-1.2 Specimen slightly hemolyzed dcph=224) BILIRUBIN DIRECT (BEAKER) (test 4.3 mg/dL 0.1-0.5 Specimen slightly hemolyzed otdd=061) ALKALINE PHOSPHATASE (BEAKER) 285 U/L 40-150 (test rzgf=743) AST (SGOT) (BEAKER) (test 117 U/L 5-34 Specimen slightly hemolyzed tqpl=960) ALT (SGPT) (BEAKER) (test 48 U/L 6-55 Specimen slightly hemolyzed jnlc=156) Specimen moderately ictericCOMPREHENSIVE METABOLIC [id number] 06:32:00 Test Item Value Reference Range Comments TOTAL PROTEIN (BEAKER) 6.4 gm/dL 6.0-8.3 Specimen slightly (test gbdz=767) hemolyzed ALBUMIN (BEAKER) (test 1.9 g/dL 3.5-5.0 Specimen slightly fffy=7772) hemolyzed ALKALINE PHOSPHATASE 285 U/L 40-150 (BEAKER) (test rrha=562) BILIRUBIN TOTAL (BEAKER) 7.7 mg/dL 0.2-1.2 Specimen slightly (test cdoz=028) hemolyzed SODIUM (BEAKER) (test 122 meq/L 136-145 vpbn=382) POTASSIUM (BEAKER) (test 4.0 meq/L 3.5-5.1 Specimen slightly jfsg=673) hemolyzed CHLORIDE (BEAKER) (test 93 meq/L 98-107 cwyn=400) CO2 (BEAKER) (test 27 meq/L 22-29 uydp=854) BLOOD UREA NITROGEN 16 mg/dL 7-21 (BEAKER) (test iatz=985) CREATININE (BEAKER) (test 0.70 mg/dL 0.57-1.25 Specimen slightly wkup=820) hemolyzed GLUCOSE RANDOM (BEAKER) 107 mg/dL 70-105 (test ssdd=909) CALCIUM (BEAKER) (test 7.3 mg/dL 8.4-10.2 wywn=401) AST (SGOT) (BEAKER) (test 117 U/L 5-34 Specimen slightly etul=629) hemolyzed ALT (SGPT) (BEAKER) (test 48 U/L 6-55 Specimen slightly uavx=507) hemolyzed EGFR (BEAKER) (test 118 mL/min/1.73 sq ESTIMATED GFR IS NOT zbal=9059) m ACCURATE CREATININE CLEARANCE IN PREDICTING GLOMERULAR FILTRATION RATE. ESTIMATED GFR IS NOT APPLICABLE FOR DIALYSIS PATIENTS. Specimen moderately [id number] 06:27:00 Test Item Value Reference Range Comments MAGNESIUM (BEAKER) (test 1.9 mg/dL 1.6-2.6 Specimen slightly hemolyzed qhup=417) [id number] 06:27:00 Test Item Value Reference Range Comments PHOSPHORUS (BEAKER) (test 3.1 mg/dL 2.3-4.7 Specimen slightly hemolyzed zflg=832) CALCIUM, [id number] 06:26:00 Test Item Value Reference Range Comments CALCIUM IONIZED (BEAKER) (test cstn=760) 0.95 mmol/L 1.12-1.27 PH, BLOOD (BEAKER) (test aszs=9751) 7.52 CBC W/PLT COUNT & AUTO [id number] 06:00:00 Test Item Value Reference Range Comments WHITE BLOOD CELL COUNT (BEAKER) (test zoow=548) 6.1 K/ L 3.5-10.5 RED BLOOD CELL COUNT (BEAKER) (test imwp=299) 2.07 M/ L 4.63-6.08 HEMOGLOBIN (BEAKER) (test wfqq=247) 7.6 GM/DL 13.7-17.5 HEMATOCRIT (BEAKER) (test iwxd=314) 23.1 % 40.1-51.0 MEAN CORPUSCULAR VOLUME (BEAKER) (test ubdb=687) 111.6 fL 79.0-92.2 MEAN CORPUSCULAR HEMOGLOBIN (BEAKER) (test 36.7 pg 25.7-32.2 alix=893) MEAN CORPUSCULAR HEMOGLOBIN CONC (BEAKER) (test 32.9 GM/DL 32.3-36.5 gkfz=358) RED CELL DISTRIBUTION WIDTH (BEAKER) (test 15.5 % 11.6-14.4 mavj=066) PLATELET COUNT (BEAKER) (test nocr=082) 71 K/CU MM 150-450 MEAN PLATELET VOLUME (BEAKER) (test utwq=330) 10.3 fL 9.4-12.4 NUCLEATED RED BLOOD CELLS (BEAKER) (test 0 /100 WBC 0-0 hjng=802) NEUTROPHILS RELATIVE PERCENT (BEAKER) (test 66 % yowq=874) LYMPHOCYTES RELATIVE PERCENT (BEAKER) (test 16 % trdg=000) MONOCYTES RELATIVE PERCENT (BEAKER) (test 9 % oihj=724) EOSINOPHILS RELATIVE PERCENT (BEAKER) (test 8 % lhxf=289) BASOPHILS RELATIVE PERCENT (BEAKER) (test 1 % eipd=461) NEUTROPHILS ABSOLUTE COUNT (BEAKER) (test 3.98 K/ L 1.78-5.38 jwid=858) LYMPHOCYTES ABSOLUTE COUNT (BEAKER) (test 0.98 K/ L 1.32-3.57 zjfv=238) MONOCYTES ABSOLUTE COUNT (BEAKER) (test zssa=017) 0.55 K/ L 0.30-0.82 EOSINOPHILS ABSOLUTE COUNT (BEAKER) (test 0.48 K/ L 0.04-0.54 umis=966) BASOPHILS ABSOLUTE COUNT (BEAKER) (test atkb=059) 0.04 K/ L 0.01-0.08 IMMATURE GRANULOCYTES-RELATIVE PERCENT (BEAKER) 1 % 0-1 (test hfea=4603) PROTHROMBIN [id number] 05:40:00 Test Item Value Reference Range Comments PROTIME (BEAKER) (test kunk=891) 25.6 seconds 11.9-14.2 INR (BEAKER) (test fbff=372) 2.5 <=5.9 Effective 09/16/2018: PT Reference Range ChangeNew: 11.9-14.2 Previous: 11.7- 14.7RECOMMENDED COUMADIN/WARFARIN INR THERAPY RANGESSTANDARD DOSE: 2.0-3.0 Includes: PROPHYLAXIS for venous thrombosis, systemic embolization; TREATMENT for venous thrombosis and/or pulmonary embolus.HIGH RISK: Target INR is2.5-3.5 for patients wiht mechanical heart valves.BASIC METABOLIC [id number] 05:31: 00 Test Item Value Reference Range Comments SODIUM (BEAKER) (test 126 meq/L 136-145 zoph=872) POTASSIUM (BEAKER) (test 3.8 meq/L 3.5-5.1 ssif=548) CHLORIDE (BEAKER) (test 94 meq/L 98-107 qchb=544) CO2 (BEAKER) (test 28 meq/L 22-29 cama=991) BLOOD UREA NITROGEN 14 mg/dL 7-21 (BEAKER) (test nrkb=359) CREATININE (BEAKER) (test 0.73 mg/dL 0.57-1.25 dhvf=149) GLUCOSE RANDOM (BEAKER) 102 mg/dL 70-105 (test oroi=097) CALCIUM (BEAKER) (test 7.6 mg/dL 8.4-10.2 jxgx=076) EGFR (BEAKER) (test 112 mL/min/1.73 sq m ESTIMATED GFR IS NOT enij=5465) ACCURATE CREATININE CLEARANCE IN PREDICTING GLOMERULAR FILTRATION RATE. ESTIMATED GFR IS NOT APPLICABLE FOR DIALYSIS PATIENTS. Specimen moderately [id number] 05:30:00 Test Item Value Reference Range Comments MAGNESIUM (BEAKER) (test vbid=880) 2.0 mg/dL 1.6-2.6 HEPATIC FUNCTION [id number] 05:30:00 Test Item Value Reference Range Comments TOTAL PROTEIN (BEAKER) (test iqpq=511) 6.7 gm/dL 6.0-8.3 ALBUMIN (BEAKER) (test ovrj=4392) 2.0 g/dL 3.5-5.0 BILIRUBIN TOTAL (BEAKER) (test roee=746) 8.3 mg/dL 0.2-1.2 BILIRUBIN DIRECT (BEAKER) (test oosp=589) 4.5 mg/dL 0.1-0.5 ALKALINE PHOSPHATASE (BEAKER) (test lfhf=422) 300 U/L 40-150 AST (SGOT) (BEAKER) (test qceb=889) 126 U/L 5-34 ALT (SGPT) (BEAKER) (test oegu=676) 54 U/L 6-55 Specimen moderately ictericCBC W/PLT COUNT & AUTO [id number] 05: 12:00 Test Item Value Reference Range Comments WHITE BLOOD CELL COUNT (BEAKER) (test ipcz=875) 6.6 K/ L 3.5-10.5 RED BLOOD CELL COUNT (BEAKER) (test uaxc=365) 2.13 M/ L 4.63-6.08 HEMOGLOBIN (BEAKER) (test qiio=798) 7.9 GM/DL 13.7-17.5 HEMATOCRIT (BEAKER) (test wyce=013) 23.7 % 40.1-51.0 MEAN CORPUSCULAR VOLUME (BEAKER) (test bvyc=608) 111.3 fL 79.0-92.2 MEAN CORPUSCULAR HEMOGLOBIN (BEAKER) (test 37.1 pg 25.7-32.2 dgcq=412) MEAN CORPUSCULAR HEMOGLOBIN CONC (BEAKER) (test 33.3 GM/DL 32.3-36.5 mmav=068) RED CELL DISTRIBUTION WIDTH (BEAKER) (test 15.8 % 11.6-14.4 tkbi=880) PLATELET COUNT (BEAKER) (test hofr=579) 81 K/CU MM 150-450 MEAN PLATELET VOLUME (BEAKER) (test qaxa=277) 10.3 fL 9.4-12.4 NUCLEATED RED BLOOD CELLS (BEAKER) (test 0 /100 WBC 0-0 htxg=959) NEUTROPHILS RELATIVE PERCENT (BEAKER) (test 65 % aynu=088) LYMPHOCYTES RELATIVE PERCENT (BEAKER) (test 15 % klzh=159) MONOCYTES RELATIVE PERCENT (BEAKER) (test 11 % qnam=137) EOSINOPHILS RELATIVE PERCENT (BEAKER) (test 7 % pznd=095) BASOPHILS RELATIVE PERCENT (BEAKER) (test 1 % twwd=115) NEUTROPHILS ABSOLUTE COUNT (BEAKER) (test 4.29 K/ L 1.78-5.38 kmut=525) LYMPHOCYTES ABSOLUTE COUNT (BEAKER) (test 1.01 K/ L 1.32-3.57 fuof=975) MONOCYTES ABSOLUTE COUNT (BEAKER) (test smeh=384) 0.75 K/ L 0.30-0.82 EOSINOPHILS ABSOLUTE COUNT (BEAKER) (test 0.49 K/ L 0.04-0.54 vkpp=638) BASOPHILS ABSOLUTE COUNT (BEAKER) (test zagy=737) 0.05 K/ L 0.01-0.08 IMMATURE GRANULOCYTES-RELATIVE PERCENT (BEAKER) 1 % 0-1 (test egdo=7271) PROTHROMBIN [id number] 05:07:00 Test Item Value Reference Range Comments PROTIME (BEAKER) (test spdu=535) 24.2 seconds 11.9-14.2 INR (BEAKER) (test dwkn=130) 2.3 <=5.9 Effective 09/16/2018: PT Reference Range ChangeNew: 11.9-14.2 Previous: 11.7- 14.7RECOMMENDED COUMADIN/WARFARIN INR THERAPY RANGESSTANDARD DOSE: 2.0-3.0 Includes: PROPHYLAXIS for venous thrombosis, systemic embolization; TREATMENT for venous thrombosis and/or pulmonary embolus.HIGH RISK: Target INR is2.5-3.5 for patients wiht mechanical heart valves.[id number] 05:10:00 Test Item Value Reference Range Comments MAGNESIUM (BEAKER) (test qqmz=794) 1.8 mg/dL 1.6-2.6 BASIC METABOLIC [id number] 05:10:00 Test Item Value Reference Range Comments SODIUM (BEAKER) (test 127 meq/L 136-145 hrgt=405) POTASSIUM (BEAKER) (test 3.7 meq/L 3.5-5.1 yhkp=868) CHLORIDE (BEAKER) (test 94 meq/L 98-107 ajlb=849) CO2 (BEAKER) (test 28 meq/L 22-29 eggz=567) BLOOD UREA NITROGEN 12 mg/dL 7-21 (BEAKER) (test jldb=885) CREATININE (BEAKER) (test 0.73 mg/dL 0.57-1.25 xbqv=954) GLUCOSE RANDOM (BEAKER) 103 mg/dL 70-105 (test gisc=129) CALCIUM (BEAKER) (test 8.0 mg/dL 8.4-10.2 hpvx=008) EGFR (BEAKER) (test 112 mL/min/1.73 sq m ESTIMATED GFR IS NOT lysf=6716) ACCURATE CREATININE CLEARANCE IN PREDICTING GLOMERULAR FILTRATION RATE. ESTIMATED GFR IS NOT APPLICABLE FOR DIALYSIS PATIENTS. Specimen moderately ictericHEPATIC FUNCTION [id number] 05:10:00 Test Item Value Reference Range Comments TOTAL PROTEIN (BEAKER) (test ovbl=889) 6.4 gm/dL 6.0-8.3 ALBUMIN (BEAKER) (test ceaz=3552) 2.0 g/dL 3.5-5.0 BILIRUBIN TOTAL (BEAKER) (test ujmc=722) 7.8 mg/dL 0.2-1.2 BILIRUBIN DIRECT (BEAKER) (test xmee=858) 4.5 mg/dL 0.1-0.5 ALKALINE PHOSPHATASE (BEAKER) (test vxac=420) 297 U/L 40-150 AST (SGOT) (BEAKER) (test qikj=263) 117 U/L 5-34 ALT (SGPT) (BEAKER) (test zjgp=162) 50 U/L 6-55 Specimen moderately ictericCBC W/PLT COUNT & AUTO [id number] 05: 04:00 Test Item Value Reference Range Comments WHITE BLOOD CELL COUNT (BEAKER) (test cehc=447) 6.3 K/ L 3.5-10.5 RED BLOOD CELL COUNT (BEAKER) (test ivfa=186) 2.14 M/ L 4.63-6.08 HEMOGLOBIN (BEAKER) (test awnw=748) 8.0 GM/DL 13.7-17.5 HEMATOCRIT (BEAKER) (test ccsu=069) 23.6 % 40.1-51.0 MEAN CORPUSCULAR VOLUME (BEAKER) (test akas=913) 110.3 fL 79.0-92.2 MEAN CORPUSCULAR HEMOGLOBIN (BEAKER) (test 37.4 pg 25.7-32.2 oups=570) MEAN CORPUSCULAR HEMOGLOBIN CONC (BEAKER) (test 33.9 GM/DL 32.3-36.5 kvta=236) RED CELL DISTRIBUTION WIDTH (BEAKER) (test 15.9 % 11.6-14.4 trhf=148) PLATELET COUNT (BEAKER) (test jhmo=589) 73 K/CU MM 150-450 MEAN PLATELET VOLUME (BEAKER) (test cpcs=660) 9.7 fL 9.4-12.4 NUCLEATED RED BLOOD CELLS (BEAKER) (test 0 /100 WBC 0-0 ufei=974) NEUTROPHILS RELATIVE PERCENT (BEAKER) (test 67 % cddm=868) LYMPHOCYTES RELATIVE PERCENT (BEAKER) (test 14 % tvqw=006) MONOCYTES RELATIVE PERCENT (BEAKER) (test 12 % qyjs=715) EOSINOPHILS RELATIVE PERCENT (BEAKER) (test 6 % jslg=782) BASOPHILS RELATIVE PERCENT (BEAKER) (test 1 % vgwv=627) NEUTROPHILS ABSOLUTE COUNT (BEAKER) (test 4.18 K/ L 1.78-5.38 iwjj=920) LYMPHOCYTES ABSOLUTE COUNT (BEAKER) (test 0.90 K/ L 1.32-3.57 jemm=987) MONOCYTES ABSOLUTE COUNT (BEAKER) (test cscs=262) 0.77 K/ L 0.30-0.82 EOSINOPHILS ABSOLUTE COUNT (BEAKER) (test 0.36 K/ L 0.04-0.54 nyal=827) BASOPHILS ABSOLUTE COUNT (BEAKER) (test cjyf=061) 0.04 K/ L 0.01-0.08 IMMATURE GRANULOCYTES-RELATIVE PERCENT (BEAKER) 1 % 0-1 (test gdii=2012) PROTHROMBIN [id number] 04:42:00 Test Item Value Reference Range Comments PROTIME (BEAKER) (test gapu=958) 25.4 seconds 11.9-14.2 INR (BEAKER) (test wpua=808) 2.5 <=5.9 Effective 09/16/2018: PT Reference Range ChangeNew: 11.9-14.2 Previous: 11.7- 14.7RECOMMENDED COUMADIN/WARFARIN INR THERAPY RANGESSTANDARD DOSE: 2.0-3.0 Includes: PROPHYLAXIS for venous thrombosis, systemic embolization; TREATMENT for venous thrombosis and/or pulmonary embolus.HIGH RISK: Target INR is2.5-3.5 for patients wiht mechanical heart valves.BLOOD [id number] 01:00:00 Test Item Value Reference Range Comments CULTURE (BEAKER) (test ltvs=8586) No growth in 5 days BLOOD [id number] 01:00:00 Test Item Value Reference Range Comments CULTURE (BEAKER) (test awnj=6543) No growth in 5 days PROTHROMBIN [id number] 07:37:00 Test Item Value Reference Range Comments PROTIME (BEAKER) (test pjfc=264) 23.8 seconds 11.9-14.2 INR (BEAKER) (test fnuh=770) 2.3 <=5.9 Effective 09/16/2018: PT Reference Range ChangeNew: 11.9-14.2 Previous: 11.7- 14.7RECOMMENDED COUMADIN/WARFARIN INR THERAPY RANGESSTANDARD DOSE: 2.0-3.0 Includes: PROPHYLAXIS for venous thrombosis, systemic embolization; TREATMENT for venous thrombosis and/or pulmonary embolus.HIGH RISK: Target INR is2.5-3.5 for patients wiht mechanical heart valves.BASIC METABOLIC [id number] 06:37: 00 Test Item Value Reference Range Comments SODIUM (BEAKER) (test 126 meq/L 136-145 vebq=281) POTASSIUM (BEAKER) (test 3.9 meq/L 3.5-5.1 aenc=062) CHLORIDE (BEAKER) (test 95 meq/L 98-107 iovv=092) CO2 (BEAKER) (test 29 meq/L 22-29 aflv=398) BLOOD UREA NITROGEN 11 mg/dL 7-21 (BEAKER) (test vdac=946) CREATININE (BEAKER) (test 0.76 mg/dL 0.57-1.25 arlq=581) GLUCOSE RANDOM (BEAKER) 99 mg/dL 70-105 (test zzzz=604) CALCIUM (BEAKER) (test 7.8 mg/dL 8.4-10.2 ctrt=573) EGFR (BEAKER) (test 107 mL/min/1.73 sq m ESTIMATED GFR IS NOT ptbb=0080) ACCURATE CREATININE CLEARANCE IN PREDICTING GLOMERULAR FILTRATION RATE. ESTIMATED GFR IS NOT APPLICABLE FOR DIALYSIS PATIENTS. Specimen moderately [id number] 06:13:00 Test Item Value Reference Range Comments MAGNESIUM (BEAKER) (test oftc=526) 1.9 mg/dL 1.6-2.6 HEPATIC FUNCTION [id number] 06:13:00 Test Item Value Reference Range Comments TOTAL PROTEIN (BEAKER) (test hncq=457) 6.6 gm/dL 6.0-8.3 ALBUMIN (BEAKER) (test itxm=2101) 2.0 g/dL 3.5-5.0 BILIRUBIN TOTAL (BEAKER) (test ytlk=762) 8.4 mg/dL 0.2-1.2 BILIRUBIN DIRECT (BEAKER) (test dhgd=545) 4.8 mg/dL 0.1-0.5 ALKALINE PHOSPHATASE (BEAKER) (test pnmo=679) 309 U/L 40-150 AST (SGOT) (BEAKER) (test sszr=359) 105 U/L 5-34 ALT (SGPT) (BEAKER) (test qhjk=870) 46 U/L 6-55 Specimen moderately ictericCBC W/PLT COUNT & AUTO [id number] 05: 48:00 Test Item Value Reference Range Comments WHITE BLOOD CELL COUNT (BEAKER) (test gcdb=348) 6.9 K/ L 3.5-10.5 RED BLOOD CELL COUNT (BEAKER) (test dhfk=528) 2.18 M/ L 4.63-6.08 HEMOGLOBIN (BEAKER) (test ayce=079) 8.0 GM/DL 13.7-17.5 HEMATOCRIT (BEAKER) (test cobx=525) 24.1 % 40.1-51.0 MEAN CORPUSCULAR VOLUME (BEAKER) (test yvke=367) 110.6 fL 79.0-92.2 MEAN CORPUSCULAR HEMOGLOBIN (BEAKER) (test 36.7 pg 25.7-32.2 sbdn=790) MEAN CORPUSCULAR HEMOGLOBIN CONC (BEAKER) (test 33.2 GM/DL 32.3-36.5 caxk=929) RED CELL DISTRIBUTION WIDTH (BEAKER) (test 15.8 % 11.6-14.4 pjjl=532) PLATELET COUNT (BEAKER) (test krki=984) 75 K/CU MM 150-450 MEAN PLATELET VOLUME (BEAKER) (test ckpp=820) 9.6 fL 9.4-12.4 NUCLEATED RED BLOOD CELLS (BEAKER) (test 0 /100 WBC 0-0 qypy=496) NEUTROPHILS RELATIVE PERCENT (BEAKER) (test 70 % cuig=000) LYMPHOCYTES RELATIVE PERCENT (BEAKER) (test 13 % htdk=832) MONOCYTES RELATIVE PERCENT (BEAKER) (test 11 % ilhp=666) EOSINOPHILS RELATIVE PERCENT (BEAKER) (test 5 % xnsc=846) BASOPHILS RELATIVE PERCENT (BEAKER) (test 0 % knwe=815) NEUTROPHILS ABSOLUTE COUNT (BEAKER) (test 4.82 K/ L 1.78-5.38 lvbw=679) LYMPHOCYTES ABSOLUTE COUNT (BEAKER) (test 0.92 K/ L 1.32-3.57 pbiq=375) MONOCYTES ABSOLUTE COUNT (BEAKER) (test hfuz=761) 0.73 K/ L 0.30-0.82 EOSINOPHILS ABSOLUTE COUNT (BEAKER) (test 0.37 K/ L 0.04-0.54 oxdg=663) BASOPHILS ABSOLUTE COUNT (BEAKER) (test asmp=910) 0.03 K/ L 0.01-0.08 IMMATURE GRANULOCYTES-RELATIVE PERCENT (BEAKER) 1 % 0-1 (test hiof=8039) SODIUM, RANDOM [id number] 10:57:00 Test Item Value Reference Range Comments SODIUM URINE (BEAKER) (test epxn=267) 112 meq/L Reference Range: No NormalsOSMOLALITY, [id number] 09:41:00 Test Item Value Reference Range Comments OSMOLALITY URINE (BEAKER) (test zpfn=288) 384 mOsm/kg 40-1,400 BASIC METABOLIC [id number] 08:12:00 Test Item Value Reference Range Comments SODIUM (BEAKER) (test 123 meq/L 136-145 rijh=326) POTASSIUM (BEAKER) (test 3.7 meq/L 3.5-5.1 emax=531) CHLORIDE (BEAKER) (test 93 meq/L 98-107 wetr=579) CO2 (BEAKER) (test 25 meq/L 22-29 acqj=471) BLOOD UREA NITROGEN 11 mg/dL 7-21 (BEAKER) (test udlb=499) CREATININE (BEAKER) (test 0.72 mg/dL 0.57-1.25 ipzv=829) GLUCOSE RANDOM (BEAKER) 110 mg/dL 70-105 (test stbw=646) CALCIUM (BEAKER) (test 7.7 mg/dL 8.4-10.2 lwww=308) EGFR (BEAKER) (test 114 mL/min/1.73 sq m ESTIMATED GFR IS NOT tapo=5584) ACCURATE CREATININE CLEARANCE IN PREDICTING GLOMERULAR FILTRATION RATE. ESTIMATED GFR IS NOT APPLICABLE FOR DIALYSIS PATIENTS. Specimen markedly [id number] 08:10:00 Test Item Value Reference Range Comments MAGNESIUM (BEAKER) (test knqb=010) 1.7 mg/dL 1.6-2.6 HEPATIC FUNCTION [id number] 08:10:00 Test Item Value Reference Range Comments TOTAL PROTEIN (BEAKER) (test bzik=183) 7.1 gm/dL 6.0-8.3 ALBUMIN (BEAKER) (test gybs=2870) 2.2 g/dL 3.5-5.0 BILIRUBIN TOTAL (BEAKER) (test vxvm=369) 9.2 mg/dL 0.2-1.2 BILIRUBIN DIRECT (BEAKER) (test ogse=487) 5.0 mg/dL 0.1-0.5 ALKALINE PHOSPHATASE (BEAKER) (test xzis=220) 322 U/L 40-150 AST (SGOT) (BEAKER) (test qwht=313) 106 U/L 5-34 ALT (SGPT) (BEAKER) (test eznd=443) 48 U/L 6-55 Specimen markedly [id number] 08:08:00 Test Item Value Reference Range Comments ETHANOL (BEAKER) (test beao=226) < mg/dL <=10 PROTHROMBIN [id number] 07:56:00 Test Item Value Reference Range Comments PROTIME (BEAKER) (test qhto=339) 24.3 seconds 11.9-14.2 INR (BEAKER) (test vhtc=491) 2.3 <=5.9 Effective 09/16/2018: PT Reference Range ChangeNew: 11.9-14.2 Previous: 11.7- 14.7RECOMMENDED COUMADIN/WARFARIN INR THERAPY RANGESSTANDARD DOSE: 2.0-3.0 Includes: PROPHYLAXIS for venous thrombosis, systemic embolization; TREATMENT for venous thrombosis and/or pulmonary embolus.HIGH RISK: Target INR is2.5-3.5 for patients wiht mechanical heart valves.CBC W/PLT COUNT & AUTO [id number] 07:50:00 Test Item Value Reference Range Comments WHITE BLOOD CELL COUNT (BEAKER) (test oyiu=864) 8.4 K/ L 3.5-10.5 RED BLOOD CELL COUNT (BEAKER) (test lrnd=633) 2.35 M/ L 4.63-6.08 HEMOGLOBIN (BEAKER) (test kchw=579) 8.8 GM/DL 13.7-17.5 HEMATOCRIT (BEAKER) (test zbfp=389) 25.8 % 40.1-51.0 MEAN CORPUSCULAR VOLUME (BEAKER) (test hphw=178) 109.8 fL 79.0-92.2 MEAN CORPUSCULAR HEMOGLOBIN (BEAKER) (test 37.4 pg 25.7-32.2 hfmr=188) MEAN CORPUSCULAR HEMOGLOBIN CONC (BEAKER) (test 34.1 GM/DL 32.3-36.5 mzlm=661) RED CELL DISTRIBUTION WIDTH (BEAKER) (test 15.7 % 11.6-14.4 rdyu=244) PLATELET COUNT (BEAKER) (test ipum=998) 86 K/CU MM 150-450 MEAN PLATELET VOLUME (BEAKER) (test mjtz=623) 9.8 fL 9.4-12.4 NUCLEATED RED BLOOD CELLS (BEAKER) (test 0 /100 WBC 0-0 ocss=207) NEUTROPHILS RELATIVE PERCENT (BEAKER) (test 74 % kevw=893) LYMPHOCYTES RELATIVE PERCENT (BEAKER) (test 12 % usxm=255) MONOCYTES RELATIVE PERCENT (BEAKER) (test 8 % mymj=555) EOSINOPHILS RELATIVE PERCENT (BEAKER) (test 5 % plnt=681) BASOPHILS RELATIVE PERCENT (BEAKER) (test 1 % uqmm=829) NEUTROPHILS ABSOLUTE COUNT (BEAKER) (test 6.20 K/ L 1.78-5.38 nocr=433) LYMPHOCYTES ABSOLUTE COUNT (BEAKER) (test 1.01 K/ L 1.32-3.57 eoxy=205) MONOCYTES ABSOLUTE COUNT (BEAKER) (test lyvx=889) 0.65 K/ L 0.30-0.82 EOSINOPHILS ABSOLUTE COUNT (BEAKER) (test 0.44 K/ L 0.04-0.54 piqg=082) BASOPHILS ABSOLUTE COUNT (BEAKER) (test manr=154) 0.06 K/ L 0.01-0.08 IMMATURE GRANULOCYTES-RELATIVE PERCENT (BEAKER) 1 % 0-1 (test zxza=0901) BASIC METABOLIC [id number] 15:29:00 Test Item Value Reference Range Comments SODIUM (BEAKER) (test 125 meq/L 136-145 askw=605) POTASSIUM (BEAKER) (test 3.5 meq/L 3.5-5.1 cooa=799) CHLORIDE (BEAKER) (test 93 meq/L 98-107 wvrm=222) CO2 (BEAKER) (test 26 meq/L 22-29 gces=416) BLOOD UREA NITROGEN 11 mg/dL 7-21 (BEAKER) (test awnp=766) CREATININE (BEAKER) (test 0.74 mg/dL 0.57-1.25 yves=717) GLUCOSE RANDOM (BEAKER) 131 mg/dL 70-105 (test frpu=152) CALCIUM (BEAKER) (test 7.8 mg/dL 8.4-10.2 njrf=001) EGFR (BEAKER) (test 111 mL/min/1.73 sq m ESTIMATED GFR IS NOT fpci=7437) ACCURATE CREATININE CLEARANCE IN PREDICTING GLOMERULAR FILTRATION RATE. ESTIMATED GFR IS NOT APPLICABLE FOR DIALYSIS PATIENTS. Specimen moderately [id number] 15:26:00 Test Item Value Reference Range Comments MAGNESIUM (BEAKER) (test nlka=543) 1.5 mg/dL 1.6-2.6 CBC W/PLT COUNT & AUTO [id number] 06:18:00 Test Item Value Reference Range Comments WHITE BLOOD CELL COUNT (BEAKER) (test dpcu=110) 4.1 K/ L 3.5-10.5 RED BLOOD CELL COUNT (BEAKER) (test wdar=329) 2.05 M/ L 4.63-6.08 HEMOGLOBIN (BEAKER) (test kflj=740) 7.5 GM/DL 13.7-17.5 HEMATOCRIT (BEAKER) (test xfhv=067) 22.5 % 40.1-51.0 MEAN CORPUSCULAR VOLUME (BEAKER) (test okfn=588) 109.8 fL 79.0-92.2 MEAN CORPUSCULAR HEMOGLOBIN (BEAKER) (test 36.6 pg 25.7-32.2 afpr=897) MEAN CORPUSCULAR HEMOGLOBIN CONC (BEAKER) (test 33.3 GM/DL 32.3-36.5 hihs=859) RED CELL DISTRIBUTION WIDTH (BEAKER) (test 15.4 % 11.6-14.4 trgq=188) PLATELET COUNT (BEAKER) (test uibx=566) 58 K/CU MM 150-450 MEAN PLATELET VOLUME (BEAKER) (test sfzf=199) 9.8 fL 9.4-12.4 NUCLEATED RED BLOOD CELLS (BEAKER) (test 0 /100 WBC 0-0 iulz=013) NEUTROPHILS RELATIVE PERCENT (BEAKER) (test 63 % azlo=362) LYMPHOCYTES RELATIVE PERCENT (BEAKER) (test 19 % azfn=230) MONOCYTES RELATIVE PERCENT (BEAKER) (test 9 % bhev=887) EOSINOPHILS RELATIVE PERCENT (BEAKER) (test 8 % xiyg=730) BASOPHILS RELATIVE PERCENT (BEAKER) (test 1 % weic=554) NEUTROPHILS ABSOLUTE COUNT (BEAKER) (test 2.58 K/ L 1.78-5.38 cjyo=069) LYMPHOCYTES ABSOLUTE COUNT (BEAKER) (test 0.76 K/ L 1.32-3.57 bkjt=939) MONOCYTES ABSOLUTE COUNT (BEAKER) (test lvym=539) 0.36 K/ L 0.30-0.82 EOSINOPHILS ABSOLUTE COUNT (BEAKER) (test 0.34 K/ L 0.04-0.54 gukb=790) BASOPHILS ABSOLUTE COUNT (BEAKER) (test zowd=883) 0.02 K/ L 0.01-0.08 IMMATURE GRANULOCYTES-RELATIVE PERCENT (BEAKER) 1 % 0-1 (test uloa=1470) [id number] 05:30:00 Test Item Value Reference Range Comments PHOSPHORUS (BEAKER) (test plos=777) 2.8 mg/dL 2.3-4.7 [id number] 05:30:00 Test Item Value Reference Range Comments MAGNESIUM (BEAKER) (test nrpa=605) 1.7 mg/dL 1.6-2.6 HEPATIC FUNCTION [id number] 05:30:00 Test Item Value Reference Range Comments TOTAL PROTEIN (BEAKER) (test wdqv=557) 6.1 gm/dL 6.0-8.3 ALBUMIN (BEAKER) (test psji=0965) 1.9 g/dL 3.5-5.0 BILIRUBIN TOTAL (BEAKER) (test wuoy=486) 7.7 mg/dL 0.2-1.2 BILIRUBIN DIRECT (BEAKER) (test anty=804) 4.0 mg/dL 0.1-0.5 ALKALINE PHOSPHATASE (BEAKER) (test akbg=138) 290 U/L 40-150 AST (SGOT) (BEAKER) (test xirw=854) 76 U/L 5-34 ALT (SGPT) (BEAKER) (test gkgw=180) 34 U/L 6-55 Specimen moderately ictericBASIC METABOLIC [id number] 05:30:00 Test Item Value Reference Range Comments SODIUM (BEAKER) (test 130 meq/L 136-145 tszt=014) POTASSIUM (BEAKER) (test 3.7 meq/L 3.5-5.1 rhav=666) CHLORIDE (BEAKER) (test 100 meq/L 98-107 elzr=007) CO2 (BEAKER) (test 27 meq/L 22-29 fbxg=921) BLOOD UREA NITROGEN 10 mg/dL 7-21 (BEAKER) (test xnwt=510) CREATININE (BEAKER) (test 0.82 mg/dL 0.57-1.25 orzz=907) GLUCOSE RANDOM (BEAKER) 97 mg/dL 70-105 (test svbg=323) CALCIUM (BEAKER) (test 7.6 mg/dL 8.4-10.2 mmyu=295) EGFR (BEAKER) (test 98 mL/min/1.73 sq m ESTIMATED GFR IS NOT ohfq=9129) ACCURATE CREATININE CLEARANCE IN PREDICTING GLOMERULAR FILTRATION RATE. ESTIMATED GFR IS NOT APPLICABLE FOR DIALYSIS PATIENTS. Specimen moderately ictericPROTHROMBIN TIME/[id number] 05:19:00 Test Item Value Reference Range Comments PROTIME (BEAKER) (test gjqj=104) 27.0 seconds 11.9-14.2 INR (BEAKER) (test klnd=548) 2.7 <=5.9 Effective 09/16/2018: PT Reference Range ChangeNew: 11.9-14.2 Previous: 11.7- 14.7RECOMMENDED COUMADIN/WARFARIN INR THERAPY RANGESSTANDARD DOSE: 2.0-3.0 Includes: PROPHYLAXIS for venous thrombosis, systemic embolization; TREATMENT for venous thrombosis and/or pulmonary embolus.HIGH RISK: Target INR is2.5-3.5 for patients wiht mechanical heart valves.U/S, ABDOMINAL, [id number] 18: 29:00Labs to be ordered:->Body Fluid Culture (w/Gram Stain, C\T\S)Reason for exam:->alcoholic cirrhosis with ascitesFINAL REPORT History: Ascites. PROCEDURE: Limited sonographic examination of the abdomen was performed in preparation for planned ultrasound-guided paracentesis. There was no fluid for drainage. Paracentesis was not performed. IMPRESSION: 1. No ascites , paracentesis was not performed. Signed: Yoandy Eli [facility] Verified Date/ Time: 03/12/2019 18:29:11 Reading Location: [address] Ultrasound Reading Room BASI METABOLIC [id number] 10:52:00 Test Item Value Reference Range Comments SODIUM (BEAKER) (test 132 meq/L 136-145 eybq=565) POTASSIUM (BEAKER) (test 4.0 meq/L 3.5-5.1 wksl=004) CHLORIDE (BEAKER) (test 103 meq/L 98-107 hpxr=723) CO2 (BEAKER) (test 27 meq/L 22-29 xrjl=168) BLOOD UREA NITROGEN 10 mg/dL 7-21 (BEAKER) (test vhjp=717) CREATININE (BEAKER) (test 0.76 mg/dL 0.57-1.25 mhje=303) GLUCOSE RANDOM (BEAKER) 95 mg/dL 70-105 (test zbdj=188) CALCIUM (BEAKER) (test 7.4 mg/dL 8.4-10.2 eyyg=613) EGFR (BEAKER) (test 107 mL/min/1.73 sq m ESTIMATED GFR IS NOT wvhn=6997) ACCURATE CREATININE CLEARANCE IN PREDICTING GLOMERULAR FILTRATION RATE. ESTIMATED GFR IS NOT APPLICABLE FOR DIALYSIS PATIENTS. Specimen moderately ictericHEPATIC FUNCTION [id number] 10:52:00 Test Item Value Reference Range Comments TOTAL PROTEIN (BEAKER) (test xhfw=592) 6.0 gm/dL 6.0-8.3 ALBUMIN (BEAKER) (test rzah=2235) 1.9 g/dL 3.5-5.0 BILIRUBIN TOTAL (BEAKER) (test znuj=231) 6.9 mg/dL 0.2-1.2 BILIRUBIN DIRECT (BEAKER) (test cllp=221) 4.0 mg/dL 0.1-0.5 ALKALINE PHOSPHATASE (BEAKER) (test wuae=136) 277 U/L 40-150 AST (SGOT) (BEAKER) (test vicc=632) 74 U/L 5-34 ALT (SGPT) (BEAKER) (test ayfd=643) 32 U/L 6-55 Specimen moderately [id number] 10:51:00 Test Item Value Reference Range Comments PHOSPHORUS (BEAKER) (test vrdz=655) 2.7 mg/dL 2.3-4.7 [id number] 10:51:00 Test Item Value Reference Range Comments MAGNESIUM (BEAKER) (test fqho=820) 1.7 mg/dL 1.6-2.6 CBC W/PLT COUNT & AUTO [id number] 07:05:00 Test Item Value Reference Range Comments WHITE BLOOD CELL COUNT (BEAKER) (test cfdy=762) 4.1 K/ L 3.5-10.5 RED BLOOD CELL COUNT (BEAKER) (test sffq=796) 2.04 M/ L 4.63-6.08 HEMOGLOBIN (BEAKER) (test nyzt=278) 7.5 GM/DL 13.7-17.5 HEMATOCRIT (BEAKER) (test eeji=124) 22.7 % 40.1-51.0 MEAN CORPUSCULAR VOLUME (BEAKER) (test lefi=145) 111.3 fL 79.0-92.2 MEAN CORPUSCULAR HEMOGLOBIN (BEAKER) (test 36.8 pg 25.7-32.2 giyw=322) MEAN CORPUSCULAR HEMOGLOBIN CONC (BEAKER) (test 33.0 GM/DL 32.3-36.5 iyia=636) RED CELL DISTRIBUTION WIDTH (BEAKER) (test 15.6 % 11.6-14.4 ffhy=446) PLATELET COUNT (BEAKER) (test dawp=742) 52 K/CU MM 150-450 MEAN PLATELET VOLUME (BEAKER) (test zoas=568) 9.1 fL 9.4-12.4 NUCLEATED RED BLOOD CELLS (BEAKER) (test 0 /100 WBC 0-0 ciyk=028) NEUTROPHILS RELATIVE PERCENT (BEAKER) (test 62 % mdbe=229) LYMPHOCYTES RELATIVE PERCENT (BEAKER) (test 21 % jshn=240) MONOCYTES RELATIVE PERCENT (BEAKER) (test 11 % fici=619) EOSINOPHILS RELATIVE PERCENT (BEAKER) (test 5 % rvpv=271) BASOPHILS RELATIVE PERCENT (BEAKER) (test 1 % bbsb=279) NEUTROPHILS ABSOLUTE COUNT (BEAKER) (test 2.55 K/ L 1.78-5.38 fyxn=647) LYMPHOCYTES ABSOLUTE COUNT (BEAKER) (test 0.86 K/ L 1.32-3.57 asqe=182) MONOCYTES ABSOLUTE COUNT (BEAKER) (test bphz=435) 0.44 K/ L 0.30-0.82 EOSINOPHILS ABSOLUTE COUNT (BEAKER) (test 0.22 K/ L 0.04-0.54 ngdo=528) BASOPHILS ABSOLUTE COUNT (BEAKER) (test gaik=912) 0.02 K/ L 0.01-0.08 IMMATURE GRANULOCYTES-RELATIVE PERCENT (BEAKER) 1 % 0-1 (test eeci=3107) PROTHROMBIN [id number] 06:36:00 Test Item Value Reference Range Comments PROTIME (BEAKER) (test jqlt=504) 27.0 seconds 11.9-14.2 INR (BEAKER) (test hklt=843) 2.6 <=5.9 Effective 09/16/2018: PT Reference Range ChangeNew: 11.9-14.2 Previous: 11.7- 14.7RECOMMENDED COUMADIN/WARFARIN INR THERAPY RANGESSTANDARD DOSE: 2.0-3.0 Includes: PROPHYLAXIS for venous thrombosis, systemic embolization; TREATMENT for venous thrombosis and/or pulmonary embolus.HIGH RISK: Target INR is2.5-3.5 for patients wiht mechanical heart valves.PROTEIN, RANDOM [id number] 21:30: 00 Test Item Value Reference Range Comments PROTEIN, URINE (BEAKER) (test hgyt=6427) < mg/dL 0-14 CREATININE, RANDOM [id number] 21:27:00 Test Item Value Reference Range Comments CREATININE URINE (BEAKER) (test przl=830) 161.5 mg/dL Reference Range: No NormalsSODIUM, RANDOM [id number] 21:27:00 Test Item Value Reference Range Comments SODIUM URINE (BEAKER) (test bpco=882) 122 meq/L Reference Range: No NormalsURINALYSIS W/ [id number] 21:23:00 Test Item Value Reference Range Comments COLOR (BEAKER) (test cylt=706) Dark Yellow CLARITY (BEAKER) (test kaoq=449) Clear SPECIFIC GRAVITY UA (BEAKER) (test ykrn=077) 1.023 1.001-1.035 PH UA (BEAKER) (test leox=364) 6.5 5.0-8.0 PROTEIN UA (BEAKER) (test jwaj=254) 10 mg/dL Negative GLUCOSE UA (BEAKER) (test luxp=930) Negative Negative KETONES UA (BEAKER) (test lrbx=499) Negative Negative BILIRUBIN UA (BEAKER) (test bpjt=221) Positive Negative BLOOD UA (BEAKER) (test emgv=861) Negative Negative NITRITE UA (BEAKER) (test qdwr=397) Negative Negative LEUKOCYTE ESTERASE UA (BEAKER) (test aiqj=336) Negative Negative UROBILINOGEN UA (BEAKER) (test jdwd=491) > mg/dL 0.2-1.0 RBC UA (BEAKER) (test etcl=682) < /HPF WBC UA (BEAKER) (test nzwn=089) 6 /HPF MUCUS (BEAKER) (test ldyn=3041) Many SQUAMOUS EPITHELIAL (BEAKER) (test ykzv=427) < /HPF HYALINE CASTS (BEAKER) (test xiea=627) 14 /LPF SOURCE(BEAKER) (test pqze=1234) URINALYSIS W/ REFLEX URINE [id number] 21:23:00 Test Item Value Reference Range Comments COLOR (BEAKER) (test qtcd=094) Dark Yellow CLARITY (BEAKER) (test nhjh=009) Clear SPECIFIC GRAVITY UA (BEAKER) (test anbk=123) 1.023 1.001-1.035 PH UA (BEAKER) (test qizh=050) 6.5 5.0-8.0 PROTEIN UA (BEAKER) (test mexz=493) 10 mg/dL Negative GLUCOSE UA (BEAKER) (test hmht=957) Negative Negative KETONES UA (BEAKER) (test kkrm=096) Negative Negative BILIRUBIN UA (BEAKER) (test ctey=757) Positive Negative BLOOD UA (BEAKER) (test qsgl=610) Negative Negative NITRITE UA (BEAKER) (test vkyu=545) Negative Negative LEUKOCYTE ESTERASE UA (BEAKER) (test zzal=491) Negative Negative UROBILINOGEN UA (BEAKER) (test zqhd=461) > mg/dL 0.2-1.0 RBC UA (BEAKER) (test aojn=303) < /HPF WBC UA (BEAKER) (test qlvb=628) 6 /HPF MUCUS (BEAKER) (test qaaj=9850) Many SQUAMOUS EPITHELIAL (BEAKER) (test genc=330) < /HPF HYALINE CASTS (BEAKER) (test bnku=164) 14 /LPF SOURCE(BEAKER) (test legv=0374) BASIC METABOLIC [id number] 05:54:00 Test Item Value Reference Range Comments SODIUM (BEAKER) (test 132 meq/L 136-145 cerx=067) POTASSIUM (BEAKER) (test 3.7 meq/L 3.5-5.1 uowe=243) CHLORIDE (BEAKER) (test 102 meq/L 98-107 dhai=277) CO2 (BEAKER) (test 25 meq/L 22-29 rhwz=176) BLOOD UREA NITROGEN 9 mg/dL 7-21 (BEAKER) (test gxcc=922) CREATININE (BEAKER) (test 0.75 mg/dL 0.57-1.25 udph=435) GLUCOSE RANDOM (BEAKER) 86 mg/dL 70-105 (test bmtc=529) CALCIUM (BEAKER) (test 7.8 mg/dL 8.4-10.2 bjuy=044) EGFR (BEAKER) (test 109 mL/min/1.73 sq m ESTIMATED GFR IS NOT wxed=9567) ACCURATE CREATININE CLEARANCE IN PREDICTING GLOMERULAR FILTRATION RATE. ESTIMATED GFR IS NOT APPLICABLE FOR DIALYSIS PATIENTS. Specimen moderately ictericHEPATIC FUNCTION [id number] 05:54:00 Test Item Value Reference Range Comments TOTAL PROTEIN (BEAKER) (test rgav=454) 6.2 gm/dL 6.0-8.3 ALBUMIN (BEAKER) (test cteh=9820) 1.9 g/dL 3.5-5.0 BILIRUBIN TOTAL (BEAKER) (test orfa=076) 7.1 mg/dL 0.2-1.2 BILIRUBIN DIRECT (BEAKER) (test hcyp=359) 4.0 mg/dL 0.1-0.5 ALKALINE PHOSPHATASE (BEAKER) (test fkfr=975) 293 U/L 40-150 AST (SGOT) (BEAKER) (test bjck=388) 84 U/L 5-34 ALT (SGPT) (BEAKER) (test ryjs=310) 36 U/L 6-55 Specimen moderately [id number] 05:52:00 Test Item Value Reference Range Comments PHOSPHORUS (BEAKER) (test nenr=113) 3.2 mg/dL 2.3-4.7 [id number] 05:52:00 Test Item Value Reference Range Comments MAGNESIUM (BEAKER) (test xgzx=301) 1.6 mg/dL 1.6-2.6 CBC W/PLT COUNT & AUTO [id number] 05:46:00 Test Item Value Reference Range Comments WHITE BLOOD CELL COUNT (BEAKER) (test olou=629) 4.6 K/ L 3.5-10.5 RED BLOOD CELL COUNT (BEAKER) (test oovt=181) 2.15 M/ L 4.63-6.08 HEMOGLOBIN (BEAKER) (test peqw=858) 7.8 GM/DL 13.7-17.5 HEMATOCRIT (BEAKER) (test kfre=613) 23.4 % 40.1-51.0 MEAN CORPUSCULAR VOLUME (BEAKER) (test tyjt=793) 108.8 fL 79.0-92.2 MEAN CORPUSCULAR HEMOGLOBIN (BEAKER) (test 36.3 pg 25.7-32.2 arub=017) MEAN CORPUSCULAR HEMOGLOBIN CONC (BEAKER) (test 33.3 GM/DL 32.3-36.5 bpab=480) RED CELL DISTRIBUTION WIDTH (BEAKER) (test 15.5 % 11.6-14.4 arya=150) PLATELET COUNT (BEAKER) (test sbif=463) 64 K/CU MM 150-450 MEAN PLATELET VOLUME (BEAKER) (test cpdh=118) 9.3 fL 9.4-12.4 NUCLEATED RED BLOOD CELLS (BEAKER) (test 0 /100 WBC 0-0 pqxy=634) NEUTROPHILS RELATIVE PERCENT (BEAKER) (test 63 % mfvi=489) LYMPHOCYTES RELATIVE PERCENT (BEAKER) (test 20 % lnzy=915) MONOCYTES RELATIVE PERCENT (BEAKER) (test 11 % smob=063) EOSINOPHILS RELATIVE PERCENT (BEAKER) (test 4 % dhuq=077) BASOPHILS RELATIVE PERCENT (BEAKER) (test 1 % wmrx=060) NEUTROPHILS ABSOLUTE COUNT (BEAKER) (test 2.89 K/ L 1.78-5.38 dhgv=592) LYMPHOCYTES ABSOLUTE COUNT (BEAKER) (test 0.93 K/ L 1.32-3.57 amzr=770) MONOCYTES ABSOLUTE COUNT (BEAKER) (test jbhw=731) 0.52 K/ L 0.30-0.82 EOSINOPHILS ABSOLUTE COUNT (BEAKER) (test 0.20 K/ L 0.04-0.54 mmgg=160) BASOPHILS ABSOLUTE COUNT (BEAKER) (test hroa=515) 0.03 K/ L 0.01-0.08 IMMATURE GRANULOCYTES-RELATIVE PERCENT (BEAKER) 0 % 0-1 (test ckaf=5249) PROTHROMBIN [id number] 05:22:00 Test Item Value Reference Range Comments PROTIME (BEAKER) (test jdmd=206) 26.0 seconds 11.9-14.2 INR (BEAKER) (test zaah=873) 2.5 <=5.9 Effective 09/16/2018: PT Reference Range ChangeNew: 11.9-14.2 Previous: 11.7- 14.7RECOMMENDED COUMADIN/WARFARIN INR THERAPY RANGESSTANDARD DOSE: 2.0-3.0 Includes: PROPHYLAXIS for venous thrombosis, systemic embolization; TREATMENT for venous thrombosis and/or pulmonary embolus.HIGH RISK: Target INR is2.5-3.5 for patients wiht mechanical heart valves.URINALYSIS WITH MICROSCOPIC IF [id number] 20:11:00 Test Item Value Reference Range Comments COLOR (BEAKER) (test vuah=072) Dark Yellow CLARITY (BEAKER) (test isro=624) Clear SPECIFIC GRAVITY UA (BEAKER) (test xyox=928) 1.016 1.001-1.035 PH UA (BEAKER) (test tibu=511) 5.5 5.0-8.0 PROTEIN UA (BEAKER) (test fgif=827) Negative Negative GLUCOSE UA (BEAKER) (test wikf=343) Negative Negative KETONES UA (BEAKER) (test ppjk=759) Negative Negative BILIRUBIN UA (BEAKER) (test feej=345) Positive Negative BLOOD UA (BEAKER) (test luid=318) Negative Negative NITRITE UA (BEAKER) (test wedk=382) Negative Negative LEUKOCYTE ESTERASE UA (BEAKER) (test ykdn=209) Negative Negative UROBILINOGEN UA (BEAKER) (test iwoq=842) 6.0 mg/dL 0.2-1.0 SOURCE(BEAKER) (test yzap=7236) [id number] 20:03:00 Test Item Value Reference Range Comments PROTIME (BEAKER) (test mbop=403) 25.3 seconds 11.9-14.2 INR (BEAKER) (test ynxq=098) 2.5 <=5.9 PARTIAL THROMBOPLASTIN TIME (BEAKER) (test 46.2 seconds 22.5-36.0 jaeu=514) Effective 09/16/2018: PT Reference Range ChangeNew: 11.9-14.2 Previous: 11.7- 14.7RECOMMENDED COUMADIN/WARFARIN INR THERAPY RANGESSTANDARD DOSE: 2.0-3.0 Includes: PROPHYLAXIS for venous thrombosis, systemic embolization; TREATMENT for venous thrombosis and/or pulmonary embolus.HIGH RISK: Target INR is2.5-3.5 for patients wiht mechanical heart valves.TROPONIN [id number] 20:00:00 Test Item Value Reference Range Comments TROPONIN I (BEAKER) (test dhad=401) 0.02 ng/mL 0.00-0.03 Troponin I (TnI) levels [...] Range Comments B-TYPE NATRIURETIC PEPTIDE (BEAKER) (test mxbo=932) 90 pg/mL 0-100 [id number] 19:53:00 Test Item Value Reference Range Comments MAGNESIUM (BEAKER) (test vapf=558) 1.5 mg/dL 1.6-2.6 BASIC METABOLIC [id number] 19:53:00 Test Item Value Reference Range Comments SODIUM (BEAKER) (test 131 meq/L 136-145 ajil=935) POTASSIUM (BEAKER) (test 3.9 meq/L 3.5-5.1 uxfg=045) CHLORIDE (BEAKER) (test 103 meq/L 98-107 zujf=664) CO2 (BEAKER) (test 22 meq/L 22-29 huvo=570) BLOOD UREA NITROGEN 9 mg/dL 7-21 (BEAKER) (test hqzm=537) CREATININE (BEAKER) (test 0.81 mg/dL 0.57-1.25 xzit=097) GLUCOSE RANDOM (BEAKER) 132 mg/dL 70-105 (test jlow=501) CALCIUM (BEAKER) (test 8.0 mg/dL 8.4-10.2 lfzq=187) EGFR (BEAKER) (test 100 mL/min/1.73 sq m ESTIMATED GFR IS NOT fpwc=4539) ACCURATE CREATININE CLEARANCE IN PREDICTING GLOMERULAR FILTRATION RATE. ESTIMATED GFR IS NOT APPLICABLE FOR DIALYSIS PATIENTS. Specimen moderately ictericHEPATIC FUNCTION [id number] 19:53:00 Test Item Value Reference Range Comments TOTAL PROTEIN (BEAKER) (test kbnl=883) 6.8 gm/dL 6.0-8.3 ALBUMIN (BEAKER) (test cmgt=6496) 2.1 g/dL 3.5-5.0 BILIRUBIN TOTAL (BEAKER) (test dvwh=345) 7.8 mg/dL 0.2-1.2 BILIRUBIN DIRECT (BEAKER) (test tmzo=057) 4.1 mg/dL 0.1-0.5 ALKALINE PHOSPHATASE (BEAKER) (test tmnt=348) 330 U/L 40-150 AST (SGOT) (BEAKER) (test nnrz=494) 86 U/L 5-34 ALT (SGPT) (BEAKER) (test kaiy=011) 36 U/L 6-55 Specimen moderately ictericCBC W/PLT COUNT & AUTO [id number] 19: 43:00 Test Item Value Reference Range Comments WHITE BLOOD CELL COUNT (BEAKER) (test ttby=448) 5.1 K/ L 3.5-10.5 RED BLOOD CELL COUNT (BEAKER) (test qazp=828) 2.30 M/ L 4.63-6.08 HEMOGLOBIN (BEAKER) (test wwnv=652) 8.6 GM/DL 13.7-17.5 HEMATOCRIT (BEAKER) (test urlm=863) 25.5 % 40.1-51.0 MEAN CORPUSCULAR VOLUME (BEAKER) (test ozdx=391) 110.9 fL 79.0-92.2 MEAN CORPUSCULAR HEMOGLOBIN (BEAKER) (test 37.4 pg 25.7-32.2 cqgf=440) MEAN CORPUSCULAR HEMOGLOBIN CONC (BEAKER) (test 33.7 GM/DL 32.3-36.5 ocdx=780) RED CELL DISTRIBUTION WIDTH (BEAKER) (test 15.5 % 11.6-14.4 pond=012) PLATELET COUNT (BEAKER) (test jaqt=745) 70 K/CU MM 150-450 MEAN PLATELET VOLUME (BEAKER) (test obgz=305) 9.7 fL 9.4-12.4 NUCLEATED RED BLOOD CELLS (BEAKER) (test 0 /100 WBC 0-0 bkrf=967) NEUTROPHILS RELATIVE PERCENT (BEAKER) (test 74 % fdot=780) LYMPHOCYTES RELATIVE PERCENT (BEAKER) (test 12 % lyrq=388) MONOCYTES RELATIVE PERCENT (BEAKER) (test 9 % uiuo=983) EOSINOPHILS RELATIVE PERCENT (BEAKER) (test 3 % qjeh=340) BASOPHILS RELATIVE PERCENT (BEAKER) (test 0 % qabo=105) NEUTROPHILS ABSOLUTE COUNT (BEAKER) (test 3.76 K/ L 1.78-5.38 ogrg=632) LYMPHOCYTES ABSOLUTE COUNT (BEAKER) (test 0.62 K/ L 1.32-3.57 hfha=636) MONOCYTES ABSOLUTE COUNT (BEAKER) (test llhe=771) 0.47 K/ L 0.30-0.82 EOSINOPHILS ABSOLUTE COUNT (BEAKER) (test 0.15 K/ L 0.04-0.54 jxgr=024) BASOPHILS ABSOLUTE COUNT (BEAKER) (test hxdm=892) 0.02 K/ L 0.01-0.08 IMMATURE GRANULOCYTES-RELATIVE PERCENT (BEAKER) 1 % 0-1 (test opdq=7136) RAD, CHEST, 1 VIEW, NON [id number] 17:41:00Reason for exam:->SOBFINAL REPORT INDICATION: SOB TECHNIQUE: Chest radiograph, single view, portable technique. FINDINGS / IMPRESSION: No pulmonary edema or pneumonia is demonstrated.Cardiac mediastinal contours unremarkable for portable technique.No pneumothorax or pleural effusion demonstrated.Osseous structures unremarkable. Signed: Yolanda Lott [facility] Verified Date/Time: 03/10/2019 17:41:36 Reading Location: [facility] Mammo Reading Room TISSUE [id number] 16:20:00Surgical Pathology Report Case: [id number] Authorizing Provider: Mark Iglesias MD Collected: 01/18/2019 1020 Ordering Location: [facility] Received: 01/18/2019 1603 Pathologist: Mikey [...] STARRY STAIN Signing Pathologist Direct Phone Line: Mild vascular ectasia is present and although non-specific, is suggestive of portal hypertensive gastropathy in this clinical setting.[id number] X 2, [id number] ( alcohol), portal hypertension, Esophageal varicesA. Small [...] evaluated Immunohistochemistry technical testing was performed at [facility], Pathology Laboratory where it was developed and [...] qualified to perform high complexity clinical laboratory testing.[facility], Department of Pathology,[address] [place] [id number], [facility]djzjJohn [facility], Departmentof [facility], [address] [place] [address], XwjlntJohn C. [facility], Department of Pathology, [address] [place] [id number], ICKPA METABOLIC [id number] 17:29:00 Test Item Value Reference Range Comments SODIUM (BEAKER) (test 133 meq/L 136-145 botz=243) POTASSIUM (BEAKER) (test 4.5 meq/L 3.5-5.1 ujum=158) CHLORIDE (BEAKER) (test 97 meq/L 98-107 mqgy=596) CO2 (BEAKER) (test 31 meq/L 22-29 zwrz=386) BLOOD UREA NITROGEN 14 mg/dL 7-21 (BEAKER) (test ovwm=579) CREATININE (BEAKER) (test 0.99 mg/dL 0.57-1.25 whrh=826) GLUCOSE RANDOM (BEAKER) 83 mg/dL 70-105 (test dmuv=806) CALCIUM (BEAKER) (test 9.1 mg/dL 8.4-10.2 wlhv=863) EGFR (BEAKER) (test 79 mL/min/1.73 sq m ESTIMATED GFR IS NOT kvaa=9782) ACCURATE CREATININE CLEARANCE IN PREDICTING GLOMERULAR FILTRATION RATE. ESTIMATED GFR IS NOT APPLICABLE FOR DIALYSIS PATIENTS. Specimen moderately ictericHEPATIC FUNCTION [id number] 17:29:00 Test Item Value Reference Range Comments TOTAL PROTEIN (BEAKER) (test xvif=802) 8.5 gm/dL 6.0-8.3 ALBUMIN (BEAKER) (test khtt=8094) 2.7 g/dL 3.5-5.0 BILIRUBIN TOTAL (BEAKER) (test oehf=322) 6.4 mg/dL 0.2-1.2 BILIRUBIN DIRECT (BEAKER) (test chod=296) 3.2 mg/dL 0.1-0.5 ALKALINE PHOSPHATASE (BEAKER) (test xlbh=234) 200 U/L 40-150 AST (SGOT) (BEAKER) (test riey=061) 98 U/L 5-34 ALT (SGPT) (BEAKER) (test yarl=521) 18 U/L 6-55 Specimen moderately ictericPROTHROMBIN [id number] 17:15:00 Test Item Value Reference Range Comments PROTIME (BEAKER) (test lgmg=946) 24.2 seconds 11.9-14.2 INR (BEAKER) (test euqa=458) 2.3 <=5.9 Effective 09/16/2018: PT Reference Range ChangeNew: 11.9-14.2 Previous: 11.7- 14.7RECOMMENDED COUMADIN/WARFARIN INR THERAPY RANGESSTANDARD DOSE: 2.0-3.0 Includes: PROPHYLAXIS for venous thrombosis, systemic embolization; TREATMENT for venous thrombosis and/or pulmonary embolus.HIGH RISK: Target INR is2.5-3.5 for patients wiht mechanical heart valves.CBC W/PLT COUNT & AUTO [id number] 17:10:00 Test Item Value Reference Range Comments WHITE BLOOD CELL COUNT (BEAKER) (test hktt=217) 5.4 K/ L 3.5-10.5 RED BLOOD CELL COUNT (BEAKER) (test yhip=640) 2.48 M/ L 4.63-6.08 HEMOGLOBIN (BEAKER) (test iqgh=093) 9.1 GM/DL 13.7-17.5 HEMATOCRIT (BEAKER) (test dybd=221) 27.5 % 40.1-51.0 MEAN CORPUSCULAR VOLUME (BEAKER) (test ojgn=265) 110.9 fL 79.0-92.2 MEAN CORPUSCULAR HEMOGLOBIN (BEAKER) (test 36.7 pg 25.7-32.2 jdrm=581) MEAN CORPUSCULAR HEMOGLOBIN CONC (BEAKER) (test 33.1 GM/DL 32.3-36.5 mxrk=017) RED CELL DISTRIBUTION WIDTH (BEAKER) (test 15.8 % 11.6-14.4 jcpi=771) PLATELET COUNT (BEAKER) (test nraq=763) 83 K/CU MM 150-450 MEAN PLATELET VOLUME (BEAKER) (test jhkl=231) 11.5 fL 9.4-12.4 NUCLEATED RED BLOOD CELLS (BEAKER) (test 0 /100 WBC 0-0 mbmy=197) NEUTROPHILS RELATIVE PERCENT (BEAKER) (test 57 % itrh=475) LYMPHOCYTES RELATIVE PERCENT (BEAKER) (test 22 % yqmv=091) MONOCYTES RELATIVE PERCENT (BEAKER) (test 12 % ouvo=833) EOSINOPHILS RELATIVE PERCENT (BEAKER) (test 7 % hvrw=815) BASOPHILS RELATIVE PERCENT (BEAKER) (test 1 % sryc=072) NEUTROPHILS ABSOLUTE COUNT (BEAKER) (test 3.07 K/ L 1.78-5.38 dnge=266) LYMPHOCYTES ABSOLUTE COUNT (BEAKER) (test 1.19 K/ L 1.32-3.57 bclz=624) MONOCYTES ABSOLUTE COUNT (BEAKER) (test bnlc=174) 0.64 K/ L 0.30-0.82 EOSINOPHILS ABSOLUTE COUNT (BEAKER) (test 0.38 K/ L 0.04-0.54 envu=621) BASOPHILS ABSOLUTE COUNT (BEAKER) (test jlbp=660) 0.05 K/ L 0.01-0.08 IMMATURE GRANULOCYTES-RELATIVE PERCENT (BEAKER) 1 % 0-1 (test iurj=8350) BLOOD [id number] 02:00:00 Test Item Value Reference Range Comments CULTURE (BEAKER) (test nxyc=5323) No growth in 5 days CBC W/PLT COUNT & AUTO [id number] 05:28:00 Test Item Value Reference Range Comments WHITE BLOOD CELL COUNT (BEAKER) (test xjck=099) 4.1 K/ L 3.5-10.5 RED BLOOD CELL COUNT (BEAKER) (test ysxr=628) 2.06 M/ L 4.63-6.08 HEMOGLOBIN (BEAKER) (test cgku=980) 7.5 GM/DL 13.7-17.5 HEMATOCRIT (BEAKER) (test wxwo=332) 22.7 % 40.1-51.0 MEAN CORPUSCULAR VOLUME (BEAKER) (test jnhx=489) 110.2 fL 79.0-92.2 MEAN CORPUSCULAR HEMOGLOBIN (BEAKER) (test 36.4 pg 25.7-32.2 ssjb=709) MEAN CORPUSCULAR HEMOGLOBIN CONC (BEAKER) (test 33.0 GM/DL 32.3-36.5 rtbc=452) RED CELL DISTRIBUTION WIDTH (BEAKER) (test 18.8 % 11.6-14.4 kbtb=715) PLATELET COUNT (BEAKER) (test qwtt=682) 64 K/CU MM 150-450 MEAN PLATELET VOLUME (BEAKER) (test nepz=288) 10.1 fL 9.4-12.4 NUCLEATED RED BLOOD CELLS (BEAKER) (test 0 /100 WBC 0-0 ccyx=775) NEUTROPHILS RELATIVE PERCENT (BEAKER) (test 60 % lsbz=155) LYMPHOCYTES RELATIVE PERCENT (BEAKER) (test 24 % gnzv=273) MONOCYTES RELATIVE PERCENT (BEAKER) (test 11 % bcrz=705) EOSINOPHILS RELATIVE PERCENT (BEAKER) (test 5 % liav=993) BASOPHILS RELATIVE PERCENT (BEAKER) (test 1 % rpeb=352) NEUTROPHILS ABSOLUTE COUNT (BEAKER) (test 2.44 K/ L 1.78-5.38 ymkr=658) LYMPHOCYTES ABSOLUTE COUNT (BEAKER) (test 0.98 K/ L 1.32-3.57 ncco=145) MONOCYTES ABSOLUTE COUNT (BEAKER) (test kpct=019) 0.44 K/ L 0.30-0.82 EOSINOPHILS ABSOLUTE COUNT (BEAKER) (test 0.20 K/ L 0.04-0.54 gvcf=588) BASOPHILS ABSOLUTE COUNT (BEAKER) (test zklu=738) 0.02 K/ L 0.01-0.08 IMMATURE GRANULOCYTES-RELATIVE PERCENT (BEAKER) 1 % 0-1 (test bved=1524) [id number] 05:16:00 Test Item Value Reference Range Comments PHOSPHORUS (BEAKER) (test wkhz=440) 2.6 mg/dL 2.3-4.7 [id number] 05:16:00 Test Item Value Reference Range Comments MAGNESIUM (BEAKER) (test kvod=091) 1.7 mg/dL 1.6-2.6 BASIC METABOLIC [id number] 05:16:00 Test Item Value Reference Range Comments SODIUM (BEAKER) (test 133 meq/L 136-145 xlis=763) POTASSIUM (BEAKER) (test 3.9 meq/L 3.5-5.1 imek=736) CHLORIDE (BEAKER) (test 101 meq/L 98-107 aazt=217) CO2 (BEAKER) (test 28 meq/L 22-29 xfow=685) BLOOD UREA NITROGEN 8 mg/dL 7-21 (BEAKER) (test hzyj=031) CREATININE (BEAKER) (test 0.65 mg/dL 0.57-1.25 ebde=774) GLUCOSE RANDOM (BEAKER) 76 mg/dL 70-105 (test ltls=648) CALCIUM (BEAKER) (test 8.2 mg/dL 8.4-10.2 smdn=919) EGFR (BEAKER) (test 129 mL/min/1.73 sq m ESTIMATED GFR IS NOT sjtb=7408) ACCURATE CREATININE CLEARANCE IN PREDICTING GLOMERULAR FILTRATION RATE. ESTIMATED GFR IS NOT APPLICABLE FOR DIALYSIS PATIENTS. Specimen moderately ictericHEPATIC FUNCTION [id number] 05:16:00 Test Item Value Reference Range Comments TOTAL PROTEIN (BEAKER) (test mxgz=235) 6.8 gm/dL 6.0-8.3 ALBUMIN (BEAKER) (test pfrf=0788) 2.4 g/dL 3.5-5.0 BILIRUBIN TOTAL (BEAKER) (test pwyx=410) 6.4 mg/dL 0.2-1.2 BILIRUBIN DIRECT (BEAKER) (test acph=694) 2.8 mg/dL 0.1-0.5 ALKALINE PHOSPHATASE (BEAKER) (test zdko=057) 125 U/L 40-150 AST (SGOT) (BEAKER) (test jvll=938) 92 U/L 5-34 ALT (SGPT) (BEAKER) (test lafa=019) 26 U/L 6-55 Specimen moderately ictericPROTHROMBIN [id number] 05:10:00 Test Item Value Reference Range Comments PROTIME (BEAKER) (test dzfq=147) 26.5 seconds 11.9-14.2 INR (BEAKER) (test buwh=410) 2.6 <=5.9 Effective 09/16/2018: PT Reference Range ChangeNew: 11.9-14.2 Previous: 11.7- 14.7RECOMMENDED COUMADIN/WARFARIN INR THERAPY RANGESSTANDARD DOSE: 2.0-3.0 Includes: PROPHYLAXIS for venous thrombosis, systemic embolization; TREATMENT for venous thrombosis and/or pulmonary embolus.HIGH RISK: Target INR is2.5-3.5 for patients wiht mechanical heart valves.CALCIUM, [id number] 05:03:00 Test Item Value Reference Range Comments CALCIUM IONIZED (BEAKER) (test jycn=140) 1.03 mmol/L 1.12-1.27 PH, BLOOD (BEAKER) (test ycql=9416) 7.53 RAD, CHEST, 1 VIEW, NON [id number] 11:40:00Reason for exam:->post picc line insertionShould this [...] MDReport Verified Date/Time: 06/2018 11:40:12 Reading Location: [facility] Radiology Reading Room [id number] 06:56:00 Test Item Value Reference Range Comments MAGNESIUM (BEAKER) (test prks=226) 1.6 mg/dL 1.6-2.6 HEPATIC FUNCTION [id number] 06:56:00 Test Item Value Reference Range Comments TOTAL PROTEIN (BEAKER) (test yodz=369) 7.1 gm/dL 6.0-8.3 ALBUMIN (BEAKER) (test bjix=8213) 2.5 g/dL 3.5-5.0 BILIRUBIN TOTAL (BEAKER) (test jhrs=231) 5.9 mg/dL 0.2-1.2 BILIRUBIN DIRECT (BEAKER) (test wuxb=564) 2.8 mg/dL 0.1-0.5 ALKALINE PHOSPHATASE (BEAKER) (test hhys=413) 129 U/L 40-150 AST (SGOT) (BEAKER) (test dutf=974) 96 U/L 5-34 ALT (SGPT) (BEAKER) (test mwgb=010) 28 U/L 6-55 Specimen moderately ictericCBC W/PLT COUNT & AUTO [id number] 06: 38:00 Test Item Value Reference Range Comments WHITE BLOOD CELL COUNT (BEAKER) (test gson=516) 4.3 K/ L 3.5-10.5 RED BLOOD CELL COUNT (BEAKER) (test kwzw=893) 2.19 M/ L 4.63-6.08 HEMOGLOBIN (BEAKER) (test uuat=979) 7.9 GM/DL 13.7-17.5 HEMATOCRIT (BEAKER) (test ddxm=713) 23.8 % 40.1-51.0 MEAN CORPUSCULAR VOLUME (BEAKER) (test vhxh=911) 108.7 fL 79.0-92.2 MEAN CORPUSCULAR HEMOGLOBIN (BEAKER) (test 36.1 pg 25.7-32.2 acfw=478) MEAN CORPUSCULAR HEMOGLOBIN CONC (BEAKER) (test 33.2 GM/DL 32.3-36.5 rzcj=458) RED CELL DISTRIBUTION WIDTH (BEAKER) (test 18.7 % 11.6-14.4 uihk=571) PLATELET COUNT (BEAKER) (test usxx=067) 66 K/CU MM 150-450 MEAN PLATELET VOLUME (BEAKER) (test jcvn=712) 9.4 fL 9.4-12.4 NUCLEATED RED BLOOD CELLS (BEAKER) (test 0 /100 WBC 0-0 uvdw=308) NEUTROPHILS RELATIVE PERCENT (BEAKER) (test 58 % ubzs=924) LYMPHOCYTES RELATIVE PERCENT (BEAKER) (test 25 % ryyb=447) MONOCYTES RELATIVE PERCENT (BEAKER) (test 12 % nrep=500) EOSINOPHILS RELATIVE PERCENT (BEAKER) (test 5 % vyih=669) BASOPHILS RELATIVE PERCENT (BEAKER) (test 1 % warg=133) NEUTROPHILS ABSOLUTE COUNT (BEAKER) (test 2.51 K/ L 1.78-5.38 bxka=033) LYMPHOCYTES ABSOLUTE COUNT (BEAKER) (test 1.07 K/ L 1.32-3.57 dabd=773) MONOCYTES ABSOLUTE COUNT (BEAKER) (test frzn=842) 0.50 K/ L 0.30-0.82 EOSINOPHILS ABSOLUTE COUNT (BEAKER) (test 0.20 K/ L 0.04-0.54 xrhh=023) BASOPHILS ABSOLUTE COUNT (BEAKER) (test elqn=308) 0.03 K/ L 0.01-0.08 IMMATURE GRANULOCYTES-RELATIVE PERCENT (BEAKER) 1 % 0-1 (test bssj=0238) [id number] 06:17:00 Test Item Value Reference Range Comments PHOSPHORUS (BEAKER) (test hmwe=934) 2.7 mg/dL 2.3-4.7 BASIC METABOLIC [id number] 06:17:00 Test Item Value Reference Range Comments SODIUM (BEAKER) (test 136 meq/L 136-145 fpjz=394) POTASSIUM (BEAKER) (test 4.0 meq/L 3.5-5.1 szkb=661) CHLORIDE (BEAKER) (test 103 meq/L 98-107 xdus=376) CO2 (BEAKER) (test 29 meq/L 22-29 ofoo=873) BLOOD UREA NITROGEN 10 mg/dL 7-21 (BEAKER) (test ipiw=380) CREATININE (BEAKER) (test 0.70 mg/dL 0.57-1.25 lwfr=592) GLUCOSE RANDOM (BEAKER) 81 mg/dL 70-105 (test wdnt=136) CALCIUM (BEAKER) (test 8.6 mg/dL 8.4-10.2 bugw=120) EGFR (BEAKER) (test 118 mL/min/1.73 sq m ESTIMATED GFR IS NOT glcc=2490) ACCURATE CREATININE CLEARANCE IN PREDICTING GLOMERULAR FILTRATION RATE. ESTIMATED GFR IS NOT APPLICABLE FOR DIALYSIS PATIENTS. Specimen moderately ictericB-TYPE NATRIURETIC FACTOR (BNP)2018-12-22 06:14:00 Test Item Value Reference Range Comments B-TYPE NATRIURETIC PEPTIDE (BEAKER) (test vdpt=222) 97 pg/mL 0-100 PROTHROMBIN [id number] 06:07:00 Test Item Value Reference Range Comments PROTIME (BEAKER) (test jnbf=105) 25.3 seconds 11.9-14.2 INR (BEAKER) (test yqih=343) 2.4 <=5.9 Effective 09/16/2018: PT Reference Range ChangeNew: 11.9-14.2 Previous: 11.7- 14.7RECOMMENDED COUMADIN/WARFARIN INR THERAPY RANGESSTANDARD DOSE: 2.0-3.0 Includes: PROPHYLAXIS for venous thrombosis, systemic embolization; TREATMENT for venous thrombosis and/or pulmonary embolus.HIGH RISK: Target INR is2.5-3.5 for patients wiht mechanical heart valves.CALCIUM, [id number] 05:40:00 Test Item Value Reference Range Comments CALCIUM IONIZED (BEAKER) (test aeup=547) 1.10 mmol/L 1.12-1.27 PH, BLOOD (BEAKER) (test sszm=5984) 7.46 BLOOD [id number] 12:01:00 Test Item Value Reference Range Comments CULTURE (BEAKER) (test bjsw=9807) No growth in 5 days HEMOGLOBIN AND [id number] 08:44:00 Test Item Value Reference Range Comments HEMOGLOBIN (BEAKER) (test swdd=211) 8.2 GM/DL 13.7-17.5 HEMATOCRIT (BEAKER) (test bjlc=740) 25.3 % 40.1-51.0 BASIC METABOLIC [id number] 05:15:00 Test Item Value Reference Range Comments SODIUM (BEAKER) (test 134 meq/L 136-145 sbyq=297) POTASSIUM (BEAKER) (test 3.8 meq/L 3.5-5.1 qvtb=984) CHLORIDE (BEAKER) (test 103 meq/L 98-107 ukvq=795) CO2 (BEAKER) (test 24 meq/L 22-29 lduf=141) BLOOD UREA NITROGEN 11 mg/dL 7-21 (BEAKER) (test awce=770) CREATININE (BEAKER) (test 0.71 mg/dL 0.57-1.25 wdki=761) GLUCOSE RANDOM (BEAKER) 76 mg/dL 70-105 (test zlex=830) CALCIUM (BEAKER) (test 8.8 mg/dL 8.4-10.2 omoa=702) EGFR (BEAKER) (test 117 mL/min/1.73 sq m ESTIMATED GFR IS NOT nymd=1941) ACCURATE CREATININE CLEARANCE IN PREDICTING GLOMERULAR FILTRATION RATE. ESTIMATED GFR IS NOT APPLICABLE FOR DIALYSIS PATIENTS. Specimen moderately ictericHEPATIC FUNCTION [id number] 05:15:00 Test Item Value Reference Range Comments TOTAL PROTEIN (BEAKER) (test hqkn=684) 7.0 gm/dL 6.0-8.3 ALBUMIN (BEAKER) (test osbd=4912) 2.5 g/dL 3.5-5.0 BILIRUBIN TOTAL (BEAKER) (test eltt=850) 5.7 mg/dL 0.2-1.2 BILIRUBIN DIRECT (BEAKER) (test sjmy=813) 2.8 mg/dL 0.1-0.5 ALKALINE PHOSPHATASE (BEAKER) (test enwl=876) 134 U/L 40-150 AST (SGOT) (BEAKER) (test lbei=524) 93 U/L 5-34 ALT (SGPT) (BEAKER) (test lejw=960) 29 U/L 6-55 Specimen moderately ictericPROTHROMBIN [id number] 04:47:00 Test Item Value Reference Range Comments PROTIME (BEAKER) (test bpfd=332) 26.4 seconds 11.9-14.2 INR (BEAKER) (test hztg=276) 2.6 <=5.9 Effective 09/16/2018: PT Reference Range ChangeNew: 11.9-14.2 Previous: 11.7- 14.7RECOMMENDED COUMADIN/WARFARIN INR THERAPY RANGESSTANDARD DOSE: 2.0-3.0 Includes: PROPHYLAXIS for venous thrombosis, systemic embolization; TREATMENT for venous thrombosis and/or pulmonary embolus.HIGH RISK: Target INR is2.5-3.5 for patients wiht mechanical heart valves.BASIC METABOLIC [id number] 06:00: 00 Test Item Value Reference Range Comments SODIUM (BEAKER) (test 133 meq/L 136-145 anpv=332) POTASSIUM (BEAKER) (test 3.9 meq/L 3.5-5.1 ptpw=571) CHLORIDE (BEAKER) (test 102 meq/L 98-107 banc=403) CO2 (BEAKER) (test 27 meq/L 22-29 jjgq=713) BLOOD UREA NITROGEN 9 mg/dL 7-21 (BEAKER) (test jnop=852) CREATININE (BEAKER) (test 0.73 mg/dL 0.57-1.25 gxsr=802) GLUCOSE RANDOM (BEAKER) 97 mg/dL 70-105 (test fytt=851) CALCIUM (BEAKER) (test 8.9 mg/dL 8.4-10.2 yaqu=629) EGFR (BEAKER) (test 113 mL/min/1.73 sq m ESTIMATED GFR IS NOT wzoi=2283) ACCURATE CREATININE CLEARANCE IN PREDICTING GLOMERULAR FILTRATION RATE. ESTIMATED GFR IS NOT APPLICABLE FOR DIALYSIS PATIENTS. Specimen moderately ictericHEPATIC FUNCTION [id number] 06:00:00 Test Item Value Reference Range Comments TOTAL PROTEIN (BEAKER) (test uehb=680) 6.7 gm/dL 6.0-8.3 ALBUMIN (BEAKER) (test dpxr=1162) 2.5 g/dL 3.5-5.0 BILIRUBIN TOTAL (BEAKER) (test hfrv=640) 5.4 mg/dL 0.2-1.2 BILIRUBIN DIRECT (BEAKER) (test grsy=137) 2.8 mg/dL 0.1-0.5 ALKALINE PHOSPHATASE (BEAKER) (test nops=563) 132 U/L 40-150 AST (SGOT) (BEAKER) (test imqa=424) 94 U/L 5-34 ALT (SGPT) (BEAKER) (test nght=067) 29 U/L 6-55 Specimen moderately ictericPROTHROMBIN [id number] 05:47:00 Test Item Value Reference Range Comments PROTIME (BEAKER) (test gcmk=700) 26.3 seconds 11.9-14.2 INR (BEAKER) (test dbdd=266) 2.6 <=5.9 Effective 09/16/2018: PT Reference Range ChangeNew: 11.9-14.2 Previous: 11.7- 14.7RECOMMENDED COUMADIN/WARFARIN INR THERAPY RANGESSTANDARD DOSE: 2.0-3.0 Includes: PROPHYLAXIS for venous thrombosis, systemic embolization; TREATMENT for venous thrombosis and/or pulmonary embolus.HIGH RISK: Target INR is2.5-3.5 for patients wiht mechanical heart valves.BLOOD [id number] 12:01:00 Test Item Value Reference Range Comments CULTURE (BEAKER) (test xsib=4232) No growth in 5 days BLOOD [id number] 10:56:00 Test Item Value Reference Range Comments CULTURE (BEAKER) From Anaerobic Bottle Only (test mlyy=4049) Same organism has been isolated from cultures(s) of the same body site within 3 days. Repeat identification and susceptibility testing performed only after consultation with the clinical microbiology laboratory.Refer to previous culture ofStaphylococcus aureus GRAM STAIN RESULT From anaerobic bottle (BEAKER) (test only: gram positive mprr=3535) cocci in clusters [id number] 03:57:00 Test Item Value Reference Range Comments MAGNESIUM (BEAKER) (test arlk=835) 1.8 mg/dL 1.6-2.6 BASIC METABOLIC [id number] 03:57:00 Test Item Value Reference Range Comments SODIUM (BEAKER) (test 130 meq/L 136-145 qbbp=178) POTASSIUM (BEAKER) (test 3.7 meq/L 3.5-5.1 fril=875) CHLORIDE (BEAKER) (test 96 meq/L 98-107 xpxp=368) CO2 (BEAKER) (test 30 meq/L 22-29 cmha=036) BLOOD UREA NITROGEN 8 mg/dL 7-21 (BEAKER) (test cydk=535) CREATININE (BEAKER) (test 0.73 mg/dL 0.57-1.25 rgxy=498) GLUCOSE RANDOM (BEAKER) 106 mg/dL 70-105 (test qoes=086) CALCIUM (BEAKER) (test 8.4 mg/dL 8.4-10.2 ylwu=256) EGFR (BEAKER) (test 113 mL/min/1.73 sq m ESTIMATED GFR IS NOT wkri=6650) ACCURATE CREATININE CLEARANCE IN PREDICTING GLOMERULAR FILTRATION RATE. ESTIMATED GFR IS NOT APPLICABLE FOR DIALYSIS PATIENTS. Specimen moderately ictericHEPATIC FUNCTION [id number] 03:57:00 Test Item Value Reference Range Comments TOTAL PROTEIN (BEAKER) (test elan=803) 7.1 gm/dL 6.0-8.3 ALBUMIN (BEAKER) (test yzed=0723) 2.6 g/dL 3.5-5.0 BILIRUBIN TOTAL (BEAKER) (test pisd=965) 5.4 mg/dL 0.2-1.2 BILIRUBIN DIRECT (BEAKER) (test nsxe=223) 2.9 mg/dL 0.1-0.5 ALKALINE PHOSPHATASE (BEAKER) (test wenq=066) 135 U/L 40-150 AST (SGOT) (BEAKER) (test mavb=336) 97 U/L 5-34 ALT (SGPT) (BEAKER) (test aktp=256) 28 U/L 6-55 Specimen moderately ictericPROTHROMBIN [id number] 03:52:00 Test Item Value Reference Range Comments PROTIME (BEAKER) (test zmaz=314) 25.6 seconds 11.9-14.2 INR (BEAKER) (test njwq=084) 2.5 <=5.9 Effective 09/16/2018: PT Reference Range ChangeNew: 11.9-14.2 Previous: 11.7- 14.7RECOMMENDED COUMADIN/WARFARIN INR THERAPY RANGESSTANDARD DOSE: 2.0-3.0 Includes: PROPHYLAXIS for venous thrombosis, systemic embolization; TREATMENT for venous thrombosis and/or pulmonary embolus.HIGH RISK: Target INR is2.5-3.5 for patients wiht mechanical heart valves.POCT-GLUCOSE [id number] 22:57:00 Test Item Value Reference Range Comments POC-GLUCOSE METER (BEAKER) 124 mg/dL 70-[address] [facility] [address] [facility] (test pwgm=1522) [facility] [address] [id number] 07:46:00 Test Item Value Reference Range Comments PHOSPHORUS (BEAKER) (test qsrw=430) 2.5 mg/dL 2.3-4.7 [id number] 07:46:00 Test Item Value Reference Range Comments MAGNESIUM (BEAKER) (test lkip=577) 1.8 mg/dL 1.6-2.6 BASIC METABOLIC [id number] 07:46:00 Test Item Value Reference Range Comments SODIUM (BEAKER) (test 131 meq/L 136-145 qoue=247) POTASSIUM (BEAKER) (test 3.3 meq/L 3.5-5.1 oefb=363) CHLORIDE (BEAKER) (test 89 meq/L 98-107 jfei=161) CO2 (BEAKER) (test 38 meq/L 22-29 foab=794) BLOOD UREA NITROGEN 9 mg/dL 7-21 (BEAKER) (test jwpn=613) CREATININE (BEAKER) (test 0.73 mg/dL 0.57-1.25 pyuo=531) GLUCOSE RANDOM (BEAKER) 96 mg/dL 70-105 (test cvng=804) CALCIUM (BEAKER) (test 8.0 mg/dL 8.4-10.2 ybyj=234) EGFR (BEAKER) (test 113 mL/min/1.73 sq m ESTIMATED GFR IS NOT slgl=3758) ACCURATE CREATININE CLEARANCE IN PREDICTING GLOMERULAR FILTRATION RATE. ESTIMATED GFR IS NOT APPLICABLE FOR DIALYSIS PATIENTS. Specimen moderately ictericHEPATIC FUNCTION [id number] 07:46:00 Test Item Value Reference Range Comments TOTAL PROTEIN (BEAKER) (test qfda=700) 6.9 gm/dL 6.0-8.3 ALBUMIN (BEAKER) (test alwb=3829) 2.6 g/dL 3.5-5.0 BILIRUBIN TOTAL (BEAKER) (test gikr=273) 5.2 mg/dL 0.2-1.2 BILIRUBIN DIRECT (BEAKER) (test quxc=859) 3.0 mg/dL 0.1-0.5 ALKALINE PHOSPHATASE (BEAKER) (test rdvp=025) 138 U/L 40-150 AST (SGOT) (BEAKER) (test nxrs=767) 82 U/L 5-34 ALT (SGPT) (BEAKER) (test mhng=982) 26 U/L 6-55 Specimen moderately ictericPROTHROMBIN [id number] 06:49:00 Test Item Value Reference Range Comments PROTIME (BEAKER) (test jdvg=243) 26.2 seconds 11.9-14.2 INR (BEAKER) (test lfqr=175) 2.5 <=5.9 Effective 09/16/2018: PT Reference Range ChangeNew: 11.9-14.2 Previous: 11.7- 14.7RECOMMENDED COUMADIN/WARFARIN INR THERAPY RANGESSTANDARD DOSE: 2.0-3.0 Includes: PROPHYLAXIS for venous thrombosis, systemic embolization; TREATMENT for venous thrombosis and/or pulmonary embolus.HIGH RISK: Target INR is2.5-3.5 for patients wiht mechanical heart valves.CBC W/PLT COUNT & AUTO [id number] 06:46:00 Test Item Value Reference Range Comments WHITE BLOOD CELL COUNT (BEAKER) (test irdl=196) 5.8 K/ L 3.5-10.5 RED BLOOD CELL COUNT (BEAKER) (test nssm=829) 2.23 M/ L 4.63-6.08 HEMOGLOBIN (BEAKER) (test ndbn=744) 8.0 GM/DL 13.7-17.5 HEMATOCRIT (BEAKER) (test yayf=983) 23.7 % 40.1-51.0 MEAN CORPUSCULAR VOLUME (BEAKER) (test erdm=483) 106.3 fL 79.0-92.2 MEAN CORPUSCULAR HEMOGLOBIN (BEAKER) (test 35.9 pg 25.7-32.2 rtqa=171) MEAN CORPUSCULAR HEMOGLOBIN CONC (BEAKER) (test 33.8 GM/DL 32.3-36.5 mocl=845) RED CELL DISTRIBUTION WIDTH (BEAKER) (test 18.3 % 11.6-14.4 whnt=012) PLATELET COUNT (BEAKER) (test hvtg=941) 68 K/CU MM 150-450 MEAN PLATELET VOLUME (BEAKER) (test epzy=763) 10.7 fL 9.4-12.4 NUCLEATED RED BLOOD CELLS (BEAKER) (test 0 /100 WBC 0-0 bdmm=882) NEUTROPHILS RELATIVE PERCENT (BEAKER) (test 69 % gbqg=963) LYMPHOCYTES RELATIVE PERCENT (BEAKER) (test 15 % bmgt=188) MONOCYTES RELATIVE PERCENT (BEAKER) (test 9 % cuyx=283) EOSINOPHILS RELATIVE PERCENT (BEAKER) (test 5 % wumy=294) BASOPHILS RELATIVE PERCENT (BEAKER) (test 1 % hnzn=998) NEUTROPHILS ABSOLUTE COUNT (BEAKER) (test 4.04 K/ L 1.78-5.38 nhfe=206) LYMPHOCYTES ABSOLUTE COUNT (BEAKER) (test 0.85 K/ L 1.32-3.57 gnxu=618) MONOCYTES ABSOLUTE COUNT (BEAKER) (test qudy=803) 0.54 K/ L 0.30-0.82 EOSINOPHILS ABSOLUTE COUNT (BEAKER) (test 0.29 K/ L 0.04-0.54 fgqh=836) BASOPHILS ABSOLUTE COUNT (BEAKER) (test dsgz=664) 0.03 K/ L 0.01-0.08 IMMATURE GRANULOCYTES-RELATIVE PERCENT (BEAKER) 2 % 0-1 (test tlqs=1591) CALCIUM, [id number] 06:38:00 Test Item Value Reference Range Comments CALCIUM IONIZED (BEAKER) (test bemb=094) 1.04 mmol/L 1.12-1.27 PH, BLOOD (BEAKER) (test egfb=8238) 7.47 MISCELLANEOUS LAB [id number] 07:42:00 Test Item Value Reference Range Comments SCAN RESULT (test fxfp=[id number]) [id number] 07:25:00 Test Item Value Reference Range Comments T3 TOTAL (BEAKER) (test zpsd=822) 45 ng/dL 48-159 [id number] 05:16:00 Test Item Value Reference Range Comments PHOSPHORUS (BEAKER) (test ovse=531) 2.9 mg/dL 2.3-4.7 [id number] 05:16:00 Test Item Value Reference Range Comments MAGNESIUM (BEAKER) (test fwvr=741) 1.3 mg/dL 1.6-2.6 BASIC METABOLIC [id number] 05:16:00 Test Item Value Reference Range Comments SODIUM (BEAKER) (test 132 meq/L 136-145 amfr=564) POTASSIUM (BEAKER) (test 3.4 meq/L 3.5-5.1 gofv=365) CHLORIDE (BEAKER) (test 92 meq/L 98-107 ided=796) CO2 (BEAKER) (test 35 meq/L 22-29 nvib=463) BLOOD UREA NITROGEN 11 mg/dL 7-21 (BEAKER) (test gxpb=294) CREATININE (BEAKER) (test 0.79 mg/dL 0.57-1.25 cymi=963) GLUCOSE RANDOM (BEAKER) 100 mg/dL 70-105 (test tpbl=132) CALCIUM (BEAKER) (test 8.0 mg/dL 8.4-10.2 zjzv=517) EGFR (BEAKER) (test 103 mL/min/1.73 sq m ESTIMATED GFR IS NOT mwjo=1798) ACCURATE CREATININE CLEARANCE IN PREDICTING GLOMERULAR FILTRATION RATE. ESTIMATED GFR IS NOT APPLICABLE FOR DIALYSIS PATIENTS. Specimen moderately ictericHEPATIC FUNCTION [id number] 05:16:00 Test Item Value Reference Range Comments TOTAL PROTEIN (BEAKER) (test ndcs=544) 6.8 gm/dL 6.0-8.3 ALBUMIN (BEAKER) (test yllp=8585) 2.7 g/dL 3.5-5.0 BILIRUBIN TOTAL (BEAKER) (test tdng=304) 5.5 mg/dL 0.2-1.2 BILIRUBIN DIRECT (BEAKER) (test ljro=090) 3.2 mg/dL 0.1-0.5 ALKALINE PHOSPHATASE (BEAKER) (test sksw=614) 139 U/L 40-150 AST (SGOT) (BEAKER) (test rnro=421) 71 U/L 5-34 ALT (SGPT) (BEAKER) (test zclu=866) 25 U/L 6-55 Specimen moderately ictericPROTHROMBIN [id number] 04:50:00 Test Item Value Reference Range Comments PROTIME (BEAKER) (test dyan=734) 26.4 seconds 11.9-14.2 INR (BEAKER) (test bmjh=598) 2.6 <=5.9 Effective 09/16/2018: PT Reference Range ChangeNew: 11.9-14.2 Previous: 11.7- 14.7RECOMMENDED COUMADIN/WARFARIN INR THERAPY RANGESSTANDARD DOSE: 2.0-3.0 Includes: PROPHYLAXIS for venous thrombosis, systemic embolization; TREATMENT for venous thrombosis and/or pulmonary embolus.HIGH RISK: Target INR is2.5-3.5 for patients wiht mechanical heart valves.CBC W/PLT COUNT & AUTO [id number] 04:46:00 Test Item Value Reference Range Comments WHITE BLOOD CELL COUNT (BEAKER) (test xkwy=140) 6.1 K/ L 3.5-10.5 RED BLOOD CELL COUNT (BEAKER) (test bzan=665) 2.15 M/ L 4.63-6.08 HEMOGLOBIN (BEAKER) (test runx=685) 7.9 GM/DL 13.7-17.5 HEMATOCRIT (BEAKER) (test rrlh=170) 22.6 % 40.1-51.0 MEAN CORPUSCULAR VOLUME (BEAKER) (test yxgp=509) 105.1 fL 79.0-92.2 MEAN CORPUSCULAR HEMOGLOBIN (BEAKER) (test 36.7 pg 25.7-32.2 ybuh=903) MEAN CORPUSCULAR HEMOGLOBIN CONC (BEAKER) (test 35.0 GM/DL 32.3-36.5 avfp=667) RED CELL DISTRIBUTION WIDTH (BEAKER) (test 18.6 % 11.6-14.4 wjde=135) PLATELET COUNT (BEAKER) (test filx=182) 58 K/CU MM 150-450 MEAN PLATELET VOLUME (BEAKER) (test ywdz=766) 10.0 fL 9.4-12.4 NUCLEATED RED BLOOD CELLS (BEAKER) (test 0 /100 WBC 0-0 qvtb=963) NEUTROPHILS RELATIVE PERCENT (BEAKER) (test 62 % fzqn=459) LYMPHOCYTES RELATIVE PERCENT (BEAKER) (test 19 % unqb=897) MONOCYTES RELATIVE PERCENT (BEAKER) (test 10 % esjc=178) EOSINOPHILS RELATIVE PERCENT (BEAKER) (test 6 % jyob=215) BASOPHILS RELATIVE PERCENT (BEAKER) (test 1 % zvdr=922) NEUTROPHILS ABSOLUTE COUNT (BEAKER) (test 3.77 K/ L 1.78-5.38 xmap=075) LYMPHOCYTES ABSOLUTE COUNT (BEAKER) (test 1.16 K/ L 1.32-3.57 aihz=376) MONOCYTES ABSOLUTE COUNT (BEAKER) (test zohp=789) 0.61 K/ L 0.30-0.82 EOSINOPHILS ABSOLUTE COUNT (BEAKER) (test 0.35 K/ L 0.04-0.54 xwvl=931) BASOPHILS ABSOLUTE COUNT (BEAKER) (test cbve=905) 0.03 K/ L 0.01-0.08 IMMATURE GRANULOCYTES-RELATIVE PERCENT (BEAKER) 3 % 0-1 (test dqkb=0761) CALCIUM, [id number] 04:35:00 Test Item Value Reference Range Comments CALCIUM IONIZED (BEAKER) (test nuzz=804) 1.02 mmol/L 1.12-1.27 PH, BLOOD (BEAKER) (test mubo=8874) 7.48 URINALYSIS W/ [id number] 14:32:00 Test Item Value Reference Range Comments COLOR (BEAKER) (test mgyn=069) Yellow CLARITY (BEAKER) (test whtu=583) Clear SPECIFIC GRAVITY UA (BEAKER) (test nbvy=162) 1.007 1.001-1.035 PH UA (BEAKER) (test wybt=221) 5.0 5.0-8.0 PROTEIN UA (BEAKER) (test rhbe=914) Negative Negative GLUCOSE UA (BEAKER) (test wdwu=373) Negative Negative KETONES UA (BEAKER) (test pxxz=694) Negative Negative BILIRUBIN UA (BEAKER) (test tutu=983) Negative Negative BLOOD UA (BEAKER) (test mrwa=600) Negative Negative NITRITE UA (BEAKER) (test vlso=800) Negative Negative LEUKOCYTE ESTERASE UA (BEAKER) (test xoxz=718) Trace Negative UROBILINOGEN UA (BEAKER) (test ndta=897) 0.2 mg/dL 0.2-1.0 RBC UA (BEAKER) (test vpdj=986) 1 /HPF WBC UA (BEAKER) (test kcdx=225) 5 /HPF MUCUS (BEAKER) (test iaop=6828) Rare HYALINE CASTS (BEAKER) (test oaac=530) 3 /LPF SOURCE(BEAKER) (test wxsy=3023) CYTOMEGALOVIRUS ANTIBODY, [id number] 09:27:00 Test Item Value Reference Range Comments CYTOMEGALOVIRUS, IGG (BEAKER) (test ygtu=0158) Positive Negative, Equivocal CMV IgG Result Interpretation: </=0.8 Al Negative 0.9-1.0 Al Equivocal &gt ;/=1.1 Al PositiveHSV 1 AND 2 [id number] 09:27:00 Test Item Value Reference Range Comments HERPES SIMPLEX VIRUS-1 IGG (BEAKER) (test vzjt=4633) > Al <0.9 HERPES SIMPLES VIRUS-2 IGG (BEAKER) (test byzt=1768) < Al <0.9 Herpes Simplex Virus 1 IgG Result Interpretation: <0.9 Al Normal 0.9- 1.0 Al Equivocal >/=1.1 Al PositiveHerpes Simplex Virus 2 IgG Result Interpretation <0.9 Al Normal 0.9-1.0 Al Equivocal >/=1.1 Al PositiveVARICELLA ZOSTER ANTIBODY, [id number] 09:27:00 Test Item Value Reference Range Comments VARICELLA ZOSTER IGG (AL) ([facility]) (test uhjv=3968) 4.7 VARICELLA ZOSTER RESULT INTERPRETATIONS: <=0.8 Al Nonreactive: Presumed non-immune to VZV 0.9-1.0 Al Equivocal >=1.1 Al Reactive: Presumed immune to VZVRUBELLA ANTIBODY, [id number] 09:27:00 Test Item Value Reference Range Comments RUBELLA IGG QUANTITATION ([facility]) (test uilp=336) 62.0 IU/mL <8.0 Rubella IgG Result Interpretation: </=7.0 IU/mL Negative - Presumed non- immune 8.0 - 9.9 IU/mL Equivocal >=10.0 IU/mL Positive - Presumed immuneEBV ANTIBODY, [id number] 09:27:00 Test Item Value Reference Range Comments JOSEPH LAMAR VIRAL CAPSID ANTIGEN IGG (AKER) Positive Negative, Equivocal (test hwbe=2775) Joseph Lamar Viral Capsid Antigen IgG Result Interpretation: </=0.8 Al Negative 0.9-1.0 Al Equivocal >/=1.1 Al PositiveMISCELLANEOUS LAB [id number] 07:31:00 Test Item Value Reference Range Comments SCAN RESULT (test kycm=[id number]) CALCIUM, [id number] 06:50:00 Test Item Value Reference Range Comments CALCIUM IONIZED ([facility]) (test vqau=640) 1.05 mmol/L 1.12-1.27 PH, BLOOD ([facility]) (test glbz=0562) 7.47 [id number] 06:44:00 Test Item Value Reference Range Comments PHOSPHORUS (AKER) (test bfas=844) 2.8 mg/dL 2.3-4.7 [id number] 06:44:00 Test Item Value Reference Range Comments MAGNESIUM (BEAKER) (test xvou=671) 1.3 mg/dL 1.6-2.6 COMPREHENSIVE METABOLIC [id number] 06:44:00 Test Item Value Reference Range Comments TOTAL PROTEIN (BEAKER) 7.3 gm/dL 6.0-8.3 (test gbft=765) ALBUMIN (BEAKER) (test 3.0 g/dL 3.5-5.0 qysm=1033) ALKALINE PHOSPHATASE 142 U/L 40-150 (BEAKER) (test dfox=227) BILIRUBIN TOTAL (BEAKER) 7.1 mg/dL 0.2-1.2 (test mriq=417) SODIUM (BEAKER) (test 136 meq/L 136-145 ujyu=768) POTASSIUM (BEAKER) (test 3.2 meq/L 3.5-5.1 jscn=588) CHLORIDE (BEAKER) (test 96 meq/L 98-107 qrwh=419) CO2 (BEAKER) (test 33 meq/L 22-29 eexg=584) BLOOD UREA NITROGEN 10 mg/dL 7-21 (BEAKER) (test hpws=814) CREATININE (BEAKER) (test 0.79 mg/dL 0.57-1.25 ovzl=125) GLUCOSE RANDOM (BEAKER) 92 mg/dL 70-105 (test sazi=785) CALCIUM (BEAKER) (test 9.0 mg/dL 8.4-10.2 qhyg=862) AST (SGOT) (BEAKER) (test 63 U/L 5-34 tdbr=308) ALT (SGPT) (BEAKER) (test 26 U/L 6-55 cjnq=938) EGFR (BEAKER) (test 103 mL/min/1.73 sq ESTIMATED GFR IS NOT afzf=2993) m ACCURATE CREATININE CLEARANCE IN PREDICTING GLOMERULAR FILTRATION RATE. ESTIMATED GFR IS NOT APPLICABLE FOR DIALYSIS PATIENTS. Specimen moderately ictericHEPATIC FUNCTION [id number] 06:44:00 Test Item Value Reference Range Comments TOTAL PROTEIN (BEAKER) (test tbph=560) 7.3 gm/dL 6.0-8.3 ALBUMIN (BEAKER) (test mcrh=3150) 3.0 g/dL 3.5-5.0 BILIRUBIN TOTAL (BEAKER) (test hmox=820) 7.1 mg/dL 0.2-1.2 BILIRUBIN DIRECT (BEAKER) (test gqdy=382) 3.7 mg/dL 0.1-0.5 ALKALINE PHOSPHATASE (BEAKER) (test tqie=859) 142 U/L 40-150 AST (SGOT) (BEAKER) (test nzvu=553) 63 U/L 5-34 ALT (SGPT) (BEAKER) (test gwrw=021) 26 U/L 6-55 Specimen moderately ictericPROTHROMBIN [id number] 06:32:00 Test Item Value Reference Range Comments PROTIME (BEAKER) (test crge=543) 25.8 seconds 11.9-14.2 INR (BEAKER) (test uzcd=393) 2.5 <=5.9 Effective 09/16/2018: PT Reference Range ChangeNew: 11.9-14.2 Previous: 11.7- 14.7RECOMMENDED COUMADIN/WARFARIN INR THERAPY RANGESSTANDARD DOSE: 2.0-3.0 Includes: PROPHYLAXIS for venous thrombosis, systemic embolization; TREATMENT for venous thrombosis and/or pulmonary embolus.HIGH RISK: Target INR is2.5-3.5 for patients wiht mechanical heart valves.CALCIUM, [id number] 06:29:00 Test Item Value Reference Range Comments CALCIUM IONIZED (BEAKER) (test mbhm=154) 1.05 mmol/L 1.12-1.27 PH, BLOOD (BEAKER) (test brpm=3080) 7.47 CBC W/PLT COUNT & AUTO [id number] 06:24:00 Test Item Value Reference Range Comments WHITE BLOOD CELL COUNT (BEAKER) (test cosz=977) 7.7 K/ L 3.5-10.5 RED BLOOD CELL COUNT (BEAKER) (test gdie=028) 2.43 M/ L 4.63-6.08 HEMOGLOBIN (BEAKER) (test wjoj=575) 8.8 GM/DL 13.7-17.5 HEMATOCRIT (BEAKER) (test wsfi=555) 25.5 % 40.1-51.0 MEAN CORPUSCULAR VOLUME (BEAKER) (test xtrl=274) 104.9 fL 79.0-92.2 MEAN CORPUSCULAR HEMOGLOBIN (BEAKER) (test 36.2 pg 25.7-32.2 geto=838) MEAN CORPUSCULAR HEMOGLOBIN CONC (BEAKER) (test 34.5 GM/DL 32.3-36.5 zeqa=106) RED CELL DISTRIBUTION WIDTH (BEAKER) (test 18.6 % 11.6-14.4 ldnd=268) PLATELET COUNT (BEAKER) (test kyod=723) 66 K/CU MM 150-450 MEAN PLATELET VOLUME (BEAKER) (test eboh=271) 10.2 fL 9.4-12.4 NUCLEATED RED BLOOD CELLS (BEAKER) (test 0 /100 WBC 0-0 ocmo=318) NEUTROPHILS RELATIVE PERCENT (BEAKER) (test 62 % hsmt=808) LYMPHOCYTES RELATIVE PERCENT (BEAKER) (test 17 % igir=084) MONOCYTES RELATIVE PERCENT (BEAKER) (test 9 % flvm=726) EOSINOPHILS RELATIVE PERCENT (BEAKER) (test 6 % mqbi=601) BASOPHILS RELATIVE PERCENT (BEAKER) (test 1 % vsnl=633) NEUTROPHILS ABSOLUTE COUNT (BEAKER) (test 4.76 K/ L 1.78-5.38 nyiu=281) LYMPHOCYTES ABSOLUTE COUNT (BEAKER) (test 1.34 K/ L 1.32-3.57 fqbx=051) MONOCYTES ABSOLUTE COUNT (BEAKER) (test rzql=016) 0.72 K/ L 0.30-0.82 EOSINOPHILS ABSOLUTE COUNT (BEAKER) (test 0.43 K/ L 0.04-0.54 fpnw=229) BASOPHILS ABSOLUTE COUNT (BEAKER) (test fnbq=995) 0.04 K/ L 0.01-0.08 IMMATURE GRANULOCYTES-RELATIVE PERCENT (BEAKER) 5 % 0-1 (test ghna=0836) BLOOD GAS, [id number] 17:27:00 Test Item Value Reference Range Comments PH ARTERIAL (BEAKER) (test njax=400) 7.50 7.35-7.45 PCO2 ARTERIAL (BEAKER) (test lynt=823) 36 mmHg 35-45 PO2 ARTERIAL (BEAKER) (test xlbs=216) 68 mmHg 80-90 O2 SATURATION ARTERIAL (BEAKER) (test ujvk=613) 95.5 % 96.0-97.0 HCO3 ARTERIAL (BEAKER) (test gohk=954) 27 mmol/L 21-29 BASE EXCESS ARTERIAL (BEAKER) (test bxyj=597) 3.8 mmol/L -2.0-3.0 PATIENT TEMPERATURE (BEAKER) (test tmal=7899) 36.4 C FIO2 (BEAKER) (test wvwr=6078) 21.0 % BLOOD [id number] 13:20:00 Test Item Value Reference Range Comments CULTURE (BEAKER) (test STAPHYLOCOCCUS AUREUS From Aerobic And ljwi=1119) Anaerobic Bottles Staphylococcus aureus Clindamycin (test code=10) Erythromycin (test code=4) Linezolid (test code=40) Nitrofurantoin (test code=23) Oxacillin (test code=14) Rifampin (test code=43) Tetracycline (test code=2) Trimethoprim + Sulfamethoxazole (test code=47) Vancomycin (test code=13) GRAM STAIN RESULT From aerobic and (BEAKER) (test gdtb=5216) anaerobic bottles: gram positive cocci in clusters [id number] 07:17:00 Test Item Value Reference Range Comments PHOSPHORUS (BEAKER) (test uidc=478) 2.2 mg/dL 2.3-4.7 [id number] 07:17:00 Test Item Value Reference Range Comments MAGNESIUM (BEAKER) (test vvae=377) 1.9 mg/dL 1.6-2.6 BASIC METABOLIC [id number] 07:17:00 Test Item Value Reference Range Comments SODIUM (BEAKER) (test 134 meq/L 136-145 vuqc=022) POTASSIUM (BEAKER) (test 3.6 meq/L 3.5-5.1 zbla=696) CHLORIDE (BEAKER) (test 102 meq/L 98-107 ptgm=212) CO2 (BEAKER) (test 27 meq/L 22-29 bdph=916) BLOOD UREA NITROGEN 12 mg/dL 7-21 (BEAKER) (test qoru=003) CREATININE (BEAKER) (test 0.77 mg/dL 0.57-1.25 fguj=091) GLUCOSE RANDOM (BEAKER) 103 mg/dL 70-105 (test bjzm=737) CALCIUM (BEAKER) (test 8.8 mg/dL 8.4-10.2 tckz=341) EGFR (BEAKER) (test 106 mL/min/1.73 sq m ESTIMATED GFR IS NOT hrou=9709) ACCURATE CREATININE CLEARANCE IN PREDICTING GLOMERULAR FILTRATION RATE. ESTIMATED GFR IS NOT APPLICABLE FOR DIALYSIS PATIENTS. Specimen moderately ictericHEPATIC FUNCTION [id number] 07:17:00 Test Item Value Reference Range Comments TOTAL PROTEIN (BEAKER) (test aqjf=355) 6.9 gm/dL 6.0-8.3 ALBUMIN (BEAKER) (test juhv=9399) 2.8 g/dL 3.5-5.0 BILIRUBIN TOTAL (BEAKER) (test osun=609) 7.7 mg/dL 0.2-1.2 BILIRUBIN DIRECT (BEAKER) (test cowz=203) 3.8 mg/dL 0.1-0.5 ALKALINE PHOSPHATASE (BEAKER) (test xslh=077) 133 U/L 40-150 AST (SGOT) (BEAKER) (test lamw=802) 49 U/L 5-34 ALT (SGPT) (BEAKER) (test lqkl=644) 24 U/L 6-55 Specimen moderately ictericVANCOMYCIN LEVEL, [id number] 07:06:00 Test Item Value Reference Range Comments VANCOMYCIN TROUGH (BEAKER) (test flgr=614) < ug/mL 10.0-20.0 B-TYPE NATRIURETIC FACTOR (BNP)2018-12-15 06:46:00 Test Item Value Reference Range Comments B-TYPE NATRIURETIC PEPTIDE (BEAKER) (test 582 pg/mL 0-100 vmyu=579) CBC W/PLT COUNT & AUTO [id number] 06:29:00 Test Item Value Reference Range Comments WHITE BLOOD CELL COUNT (BEAKER) (test elmz=768) 8.2 K/ L 3.5-10.5 RED BLOOD CELL COUNT (BEAKER) (test ntri=922) 2.42 M/ L 4.63-6.08 HEMOGLOBIN (BEAKER) (test ydii=282) 8.6 GM/DL 13.7-17.5 HEMATOCRIT (BEAKER) (test rxoi=997) 26.1 % 40.1-51.0 MEAN CORPUSCULAR VOLUME (BEAKER) (test giqg=816) 107.9 fL 79.0-92.2 MEAN CORPUSCULAR HEMOGLOBIN (BEAKER) (test 35.5 pg 25.7-32.2 kjhl=047) MEAN CORPUSCULAR HEMOGLOBIN CONC (BEAKER) (test 33.0 GM/DL 32.3-36.5 tmqw=035) RED CELL DISTRIBUTION WIDTH (BEAKER) (test 18.9 % 11.6-14.4 gfsf=424) PLATELET COUNT (BEAKER) (test dowv=766) 58 K/CU MM 150-450 MEAN PLATELET VOLUME (BEAKER) (test mofp=756) 10.0 fL 9.4-12.4 NUCLEATED RED BLOOD CELLS (BEAKER) (test 0 /100 WBC 0-0 qmsz=704) NEUTROPHILS RELATIVE PERCENT (BEAKER) (test 67 % ozqy=690) LYMPHOCYTES RELATIVE PERCENT (BEAKER) (test 16 % ssqc=149) MONOCYTES RELATIVE PERCENT (BEAKER) (test 8 % bqjm=084) EOSINOPHILS RELATIVE PERCENT (BEAKER) (test 4 % acxt=351) BASOPHILS RELATIVE PERCENT (BEAKER) (test 1 % ycvu=165) NEUTROPHILS ABSOLUTE COUNT (BEAKER) (test 5.45 K/ L 1.78-5.38 qzee=338) LYMPHOCYTES ABSOLUTE COUNT (BEAKER) (test 1.34 K/ L 1.32-3.57 anrc=431) MONOCYTES ABSOLUTE COUNT (BEAKER) (test vmpz=215) 0.63 K/ L 0.30-0.82 EOSINOPHILS ABSOLUTE COUNT (BEAKER) (test 0.32 K/ L 0.04-0.54 hhwo=291) BASOPHILS ABSOLUTE COUNT (BEAKER) (test dexe=493) 0.06 K/ L 0.01-0.08 IMMATURE GRANULOCYTES-RELATIVE PERCENT (BEAKER) 4 % 0-1 (test wnxu=6263) PROTHROMBIN [id number] 06:28:00 Test Item Value Reference Range Comments PROTIME (BEAKER) (test rqvn=903) 26.9 seconds 11.9-14.2 INR (BEAKER) (test znim=003) 2.7 <=5.9 Effective 09/16/2018: PT Reference Range ChangeNew: 11.9-14.2 Previous: 11.7- 14.7RECOMMENDED COUMADIN/WARFARIN INR THERAPY RANGESSTANDARD DOSE: 2.0-3.0 Includes: PROPHYLAXIS for venous thrombosis, systemic embolization; TREATMENT for venous thrombosis and/or pulmonary embolus.HIGH RISK: Target INR is2.5-3.5 for patients wiht mechanical heart valves.CALCIUM, [id number] 06:15:00 Test Item Value Reference Range Comments CALCIUM IONIZED (BEAKER) (test igzz=130) 1.15 mmol/L 1.12-1.27 PH, BLOOD (BEAKER) (test udms=0545) 7.37 CBC W/PLT COUNT & AUTO [id number] 12:04:00 Test Item Value Reference Range Comments WHITE BLOOD CELL COUNT (BEAKER) (test ibha=540) 9.6 K/ L 3.5-10.5 RED BLOOD CELL COUNT (BEAKER) (test hiyh=216) 2.24 M/ L 4.63-6.08 HEMOGLOBIN (BEAKER) (test yrpz=786) 8.1 GM/DL 13.7-17.5 HEMATOCRIT (BEAKER) (test ydbt=924) 23.8 % 40.1-51.0 MEAN CORPUSCULAR VOLUME (BEAKER) (test uhoq=681) 106.3 fL 79.0-92.2 MEAN CORPUSCULAR HEMOGLOBIN (BEAKER) (test 36.2 pg 25.7-32.2 ktpf=688) MEAN CORPUSCULAR HEMOGLOBIN CONC (BEAKER) (test 34.0 GM/DL 32.3-36.5 pdnx=070) RED CELL DISTRIBUTION WIDTH (BEAKER) (test 19.3 % 11.6-14.4 bict=407) PLATELET COUNT (BEAKER) (test aqzn=261) 54 K/CU MM 150-450 MEAN PLATELET VOLUME (BEAKER) (test hyan=327) 10.6 fL 9.4-12.4 NUCLEATED RED BLOOD CELLS (BEAKER) (test 0 /100 WBC 0-0 wmjx=467) (CELLAVISION MANUAL DIFF)2018-12-14 12:04:00 Test Item Value Reference Range Comments NEUTROPHILS - REL (CELLAVISION)(BEAKER) (test 85 % gkqq=8375) LYMPHOCYTES - REL (CELLAVISION)(BEAKER) (test 5 % bvux=0098) MONOCYTES - REL (CELLAVISION)(BEAKER) (test 10 % hflw=0517) NEUTROPHILS - ABS (CELLAVISION)(BEAKER) (test 8.16 K/ul 1.78-5.38 pxcf=0169) LYMPHOCYTES - ABS (CELLAVISION)(BEAKER) (test 0.48 K/ul 1.32-3.57 juzq=0443) MONOCYTES - ABS (CELLAVISION)(BEAKER) (test 0.96 K/uL 0.30-0.82 jpou=7602) TOTAL COUNTED (BEAKER) (test nxjk=4620) 100 WBC MORPHOLOGY (BEAKER) (test pllv=617) Normal PLT MORPHOLOGY (BEAKER) (test yyhe=725) Normal ANISOCYTOSIS (BEAKER) (test hgtf=287) 1+ few MACROCYTES (BEAKER) (test zklt=104) 1+ few POIKILOCYTES (BEAKER) (test ggtt=234) 1+ few ARTIFACT (CELLAVISION)(BEAKER) (test erkx=2558) Present PLATELET CONCENTRATION (CELLAVISION)(BEAKER) (test Decreased dnmm=1088) Received comment: User comments: Slide comments:BLOOD [id number] 11:53:00 Test Item Value Reference Range Comments CULTURE (BEAKER) From Aerobic And Anaerobic (test ekcr=2499) Bottles Same organism has been isolated from cultures(s) of the same body site within 3 days. Repeat identification and susceptibility testing performed only after consultation with the clinical microbiology laboratory.Refer to previous culture ofStaphylococcus aureus GRAM STAIN RESULT From aerobic and (BEAKER) (test anaerobic bottles: nbbn=5400) gram positive cocci in clusters PROTHROMBIN [id number] 10:54:00 Test Item Value Reference Range Comments PROTIME (BEAKER) (test wriz=755) 25.1 seconds 11.9-14.2 INR (BEAKER) (test ulxo=965) 2.4 <=5.9 Effective 09/16/2018: PT Reference Range ChangeNew: 11.9-14.2 Previous: 11.7- 14.7RECOMMENDED COUMADIN/WARFARIN INR THERAPY RANGESSTANDARD DOSE: 2.0-3.0 Includes: PROPHYLAXIS for venous thrombosis, systemic embolization; TREATMENT for venous thrombosis and/or pulmonary embolus.HIGH RISK: Target INR is2.5-3.5 for patients wiht mechanical heart valves.HEPATIC FUNCTION [id number] 09:19 :00 Test Item Value Reference Range Comments TOTAL PROTEIN (BEAKER) (test zaps=167) 6.8 gm/dL 6.0-8.3 ALBUMIN (BEAKER) (test vxnq=8629) 2.9 g/dL 3.5-5.0 BILIRUBIN TOTAL (BEAKER) (test fyfy=110) 7.4 mg/dL 0.2-1.2 BILIRUBIN DIRECT (BEAKER) (test czql=530) 3.6 mg/dL 0.1-0.5 ALKALINE PHOSPHATASE (BEAKER) (test ifee=833) 136 U/L 40-150 AST (SGOT) (BEAKER) (test jvpi=477) 49 U/L 5-34 ALT (SGPT) (BEAKER) (test qlre=876) 23 U/L 6-55 Specimen moderately ictericC-REACTIVE [id number] 07:28:00 Test Item Value Reference Range Comments C-REACTIVE PROTEIN (BEAKER) (test bttf=097) 5.83 mg/dL 0.00-0.50 [id number] 07:03:00 Test Item Value Reference Range Comments PHOSPHORUS (BEAKER) (test dpjz=115) 2.0 mg/dL 2.3-4.7 [id number] 07:03:00 Test Item Value Reference Range Comments MAGNESIUM (BEAKER) (test rjzv=935) 2.1 mg/dL 1.6-2.6 BASIC METABOLIC [id number] 07:03:00 Test Item Value Reference Range Comments SODIUM (BEAKER) (test 131 meq/L 136-145 ohjk=650) POTASSIUM (BEAKER) (test 4.3 meq/L 3.5-5.1 ynjr=156) CHLORIDE (BEAKER) (test 103 meq/L 98-107 ywxn=164) CO2 (BEAKER) (test 24 meq/L 22-29 jnbq=294) BLOOD UREA NITROGEN 21 mg/dL 7-21 (BEAKER) (test yxfx=593) CREATININE (BEAKER) (test 0.79 mg/dL 0.57-1.25 lpix=919) GLUCOSE RANDOM (BEAKER) 96 mg/dL 70-105 (test eusm=080) CALCIUM (BEAKER) (test 8.6 mg/dL 8.4-10.2 raid=972) EGFR (BEAKER) (test 103 mL/min/1.73 sq m ESTIMATED GFR IS NOT lmgc=9455) ACCURATE CREATININE CLEARANCE IN PREDICTING GLOMERULAR FILTRATION RATE. ESTIMATED GFR IS NOT APPLICABLE FOR DIALYSIS PATIENTS. Specimen moderately ictericLIPID [id number] 07:03:00 Test Item Value Reference Range Comments TRIGLYCERIDES (BEAKER) (test qlnp=897) 62 mg/dL CHOLESTEROL (BEAKER) (test dlhk=670) 89 mg/dL HDL CHOLESTEROL (BEAKER) (test lkzi=830) 6 mg/dL LDL CHOLESTEROL CALCULATED (BEAKER) (test gxds=717) 71 mg/dL Triglyceride Reference Range: Low Risk <150 Borderline 150- 199 High Risk 200-499 Very High Risk >=500Cholesterol Reference Range: Low Risk <200 Borderline 200-239 High Risk > 240HDL Cholesterol Reference Range: Low Risk >=60 High Risk <40LDL Cholesterol Reference Range: Optimal <100 Near Optimal 100-129 Borderline 130-159 High 160-189 Very High >=190 Specimen moderatelyictericCALCIUM, [id number] 06:23:00 Test Item Value Reference Range Comments CALCIUM IONIZED (BEAKER) (test egss=604) 1.09 mmol/L 1.12-1.27 PH, BLOOD (BEAKER) (test iwnp=5022) 7.49 U/S, RENAL WITH [id number] 02:05:00Reason for exam:->erica, history of renal artery [...] sonographic evidence for renal artery stenosis. Signed: Phoebe Haileort VerifiedDate/Time: 12/14/2018 02:05:57 RAD , SHOULDER, COMPLETE (MIN 2 VIEWS), [id number] 17:15:00Reason for exam:-&gt ;shoulder painFINAL REPORT TECHNIQUE: [...] Rodas MDReport Verified Date/Time: 12/13/2018 17:15:55Reading Location: [facility] C013Y CT Body Reading Room CBC W/PLT COUNT & AUTO [id number] 09:49:00 Test Item Value Reference Range Comments WHITE BLOOD CELL COUNT (BEAKER) (test ubxl=807) 8.4 K/ L 3.5-10.5 RED BLOOD CELL COUNT (BEAKER) (test cygo=679) 2.39 M/ L 4.63-6.08 HEMOGLOBIN (BEAKER) (test xhic=576) 8.5 GM/DL 13.7-17.5 HEMATOCRIT (BEAKER) (test shvw=394) 25.1 % 40.1-51.0 MEAN CORPUSCULAR VOLUME (BEAKER) (test slxf=753) 105.0 fL 79.0-92.2 MEAN CORPUSCULAR HEMOGLOBIN (BEAKER) (test 35.6 pg 25.7-32.2 rcgu=175) MEAN CORPUSCULAR HEMOGLOBIN CONC (BEAKER) (test 33.9 GM/DL 32.3-36.5 ovgh=015) RED CELL DISTRIBUTION WIDTH (BEAKER) (test 19.2 % 11.6-14.4 puxo=776) PLATELET COUNT (BEAKER) (test yluh=027) 55 K/CU MM 150-450 MEAN PLATELET VOLUME (BEAKER) (test jjaf=139) 10.7 fL 9.4-12.4 NUCLEATED RED BLOOD CELLS (BEAKER) (test 0 /100 WBC 0-0 ziwb=696) (CELLAVISION MANUAL DIFF)2018-12-13 09:49:00 Test Item Value Reference Range Comments NEUTROPHILS - REL (CELLAVISION)(BEAKER) (test 86 % bbjn=2077) LYMPHOCYTES - REL (CELLAVISION)(BEAKER) (test 4 % xegq=1110) MONOCYTES - REL (CELLAVISION)(BEAKER) (test 8 % mrnt=6095) METAMYELOCYTES - REL (CELLAVISION)(BEAKER) (test 1 % 0-0 ovcj=7463) BANDS - REL (CELLAVISION)(BEAKER) (test 1 % 0-10 ctfd=3935) NEUTROPHILS - ABS (CELLAVISION)(BEAKER) (test 7.22 K/ul 1.78-5.38 lpva=2605) LYMPHOCYTES - ABS (CELLAVISION)(BEAKER) (test 0.34 K/ul 1.32-3.57 tzzf=9501) MONOCYTES - ABS (CELLAVISION)(BEAKER) (test 0.67 K/uL 0.30-0.82 ndpl=1290) METAMYELOCYTES - ABS (CELLAVISION)(BEAKER) (test 0.08 K/uL 0.00-0.00 mdxu=0347) BANDS - ABS (CELLAVISION)(BEAKER) (test 0.08 K/uL 0.00-0.80 iorj=0178) TOTAL COUNTED (BEAKER) (test enqs=1766) 100 RBC MORPHOLOGY (BEAKER) (test ufds=435) Normal WBC MORPHOLOGY (BEAKER) (test slrq=073) Normal PLT MORPHOLOGY (BEAKER) (test srmv=556) Normal POLYCHROMATOPHILLIC RBCS(BEAKER) (test babc=092) 1+ few HYPOCHROMIA (BEAKER) (test xelf=356) 2+ moderate TARGET CELLS (BEAKER) (test subo=754) 1+ few ARTIFACT (CELLAVISION)(BEAKER) (test xtyu=8918) Present PLATELET CONCENTRATION (CELLAVISION)(BEAKER) Decreased (test froj=2496) Received comment: User comments: Slide comments:RAD, CHEST, 1 VIEW, NON [id number] 09:11:00Reason for exam:->edemaShould this be performed at the bedside ?->YesFINAL REPORT AP view of the chest dated 2018 COMPARISON: October 14, 2018 CLINICAL INFORMATION: edema Comment: Heart is in upper limits of normal in size. Pulmonary vasculature is unremarkable. Lungs are clear. No pulmonary infiltrate or pleural effusion is present. Impression: No interval change. Signed: Lamont Mayberryeport Verified Date/Time: 2018 09:11:32 Reading Location: [facility] C013X Ortho Consult Reading Room OSMOLALITY, [id number] 08:43:00 Test Item Value Reference Range Comments OSMOLALITY URINE (BEAKER) (test fpbn=167) 559 mOsm/kg 40-1,400 CALCIUM, [id number] 08:37:00 Test Item Value Reference Range Comments CALCIUM IONIZED (BEAKER) (test fgln=370) 1.07 mmol/L 1.12-1.27 PH, BLOOD (BEAKER) (test zyqr=2379) 7.41 T4, [id number] 07:21:00 Test Item Value Reference Range Comments FREE T4 (BEAKER) (test bhlw=628) 0.82 ng/dL 0.70-1.48 SODIUM, RANDOM [id number] 07:10:00 Test Item Value Reference Range Comments SODIUM URINE (BEAKER) (test quig=191) < meq/L Reference Range: No NormalsCREATININE, RANDOM [id number] 07:09:00 Test Item Value Reference Range Comments CREATININE URINE (BEAKER) (test sssm=921) 103.6 mg/dL Reference Range: No NormalsPROTEIN, RANDOM [id number] 07:09:00 Test Item Value Reference Range Comments PROTEIN, URINE (BEAKER) (test howg=7742) 15 mg/dL 0-14 TSH/FREE T4 IF [id number] 06:44:00 Test Item Value Reference Range Comments THYROID STIMULATING HORMONE (BEAKER) (test 0.21 uIU/mL 0.35-4.94 yiyx=610) URINALYSIS W/ [id number] 06:37:00 Test Item Value Reference Range Comments COLOR (BEAKER) (test klzy=936) Yellow CLARITY (BEAKER) (test aewu=521) Clear SPECIFIC GRAVITY UA (BEAKER) (test vuft=688) 1.016 1.001-1.035 PH UA (BEAKER) (test cwoj=335) 5.5 5.0-8.0 PROTEIN UA (BEAKER) (test cptw=559) Negative Negative GLUCOSE UA (BEAKER) (test ypej=895) Negative Negative KETONES UA (BEAKER) (test stod=645) Negative Negative BILIRUBIN UA (BEAKER) (test maig=363) Negative Negative BLOOD UA (BEAKER) (test pube=072) Negative Negative NITRITE UA (BEAKER) (test unyu=539) Negative Negative LEUKOCYTE ESTERASE UA (BEAKER) (test infz=130) Trace Negative UROBILINOGEN UA (BEAKER) (test kpuf=951) 2.0 mg/dL 0.2-1.0 RBC UA (BEAKER) (test fiav=163) 2 /HPF WBC UA (BEAKER) (test hkkb=546) 3 /HPF BACTERIA (BEAKER) (test nyke=423) Rare MUCUS (BEAKER) (test pylk=3671) Rare HYALINE CASTS (BEAKER) (test irlh=934) 11 /LPF GRANULAR CASTS (BEAKER) (test fwfo=466) 8 /LPF AMORPHOUS CRYSTALS (BEAKER) (test aikp=0881) Occasional SOURCE(BEAKER) (test fyqg=2174) B-TYPE NATRIURETIC FACTOR (BNP)2018-12-13 06:31:00 Test Item Value Reference Range Comments B-TYPE NATRIURETIC PEPTIDE (BEAKER) (test 705 pg/mL 0-100 pynh=870) [id number] 06:29:00 Test Item Value Reference Range Comments PHOSPHORUS (BEAKER) (test avbk=303) 2.9 mg/dL 2.3-4.7 [id number] 06:29:00 Test Item Value Reference Range Comments MAGNESIUM (BEAKER) (test aaoz=159) 2.3 mg/dL 1.6-2.6 LIPID [id number] 06:29:00 Test Item Value Reference Range Comments TRIGLYCERIDES (BEAKER) (test dvaf=533) 65 mg/dL CHOLESTEROL (BEAKER) (test zhhr=871) 99 mg/dL HDL CHOLESTEROL (BEAKER) (test ibcq=288) 6 mg/dL LDL CHOLESTEROL CALCULATED (BEAKER) (test qpvc=312) 80 mg/dL Triglyceride Reference Range: Low Risk <150 Borderline 150- 199 High Risk 200-499 Very High Risk >=500Cholesterol Reference Range: Low Risk <200 Borderline 200-239 High Risk > 240HDL Cholesterol Reference Range: Low Risk >=60 High Risk <40LDL Cholesterol Reference Range: Optimal <100 Near Optimal 100-129 Borderline 130-159 High 160-189 Very High >=190 Specimen moderatelyictericCOMPREHENSIVE METABOLIC [id number] 06:29:00 Test Item Value Reference Range Comments TOTAL PROTEIN (BEAKER) 6.9 gm/dL 6.0-8.3 (test mfko=880) ALBUMIN (BEAKER) (test 2.5 g/dL 3.5-5.0 vmph=8764) ALKALINE PHOSPHATASE 152 U/L 40-150 (BEAKER) (test uavg=393) BILIRUBIN TOTAL (BEAKER) 6.8 mg/dL 0.2-1.2 (test zjjn=433) SODIUM (BEAKER) (test 132 meq/L 136-145 azml=871) POTASSIUM (BEAKER) (test 4.3 meq/L 3.5-5.1 xjyw=023) CHLORIDE (BEAKER) (test 105 meq/L 98-107 axlw=982) CO2 (BEAKER) (test 22 meq/L 22-29 manu=387) BLOOD UREA NITROGEN 42 mg/dL 7-21 (BEAKER) (test eney=712) CREATININE (BEAKER) (test 1.31 mg/dL 0.57-1.25 wjks=832) GLUCOSE RANDOM (BEAKER) 109 mg/dL 70-105 (test abvm=936) CALCIUM (BEAKER) (test 8.2 mg/dL 8.4-10.2 hibz=263) AST (SGOT) (BEAKER) (test 55 U/L 5-34 aoyf=572) ALT (SGPT) (BEAKER) (test 29 U/L 6-55 wahm=994) EGFR (BEAKER) (test 57 mL/min/1.73 sq m ESTIMATED GFR IS NOT fdcs=5896) ACCURATE CREATININE CLEARANCE IN PREDICTING GLOMERULAR FILTRATION RATE. ESTIMATED GFR IS NOT APPLICABLE FOR DIALYSIS PATIENTS. Specimen moderately ictericHEPATIC FUNCTION [id number] 06:29:00 Test Item Value Reference Range Comments TOTAL PROTEIN (BEAKER) (test yktr=768) 6.9 gm/dL 6.0-8.3 ALBUMIN (BEAKER) (test gxfj=3908) 2.5 g/dL 3.5-5.0 BILIRUBIN TOTAL (BEAKER) (test qvry=470) 6.8 mg/dL 0.2-1.2 BILIRUBIN DIRECT (BEAKER) (test uyig=839) 4.0 mg/dL 0.1-0.5 ALKALINE PHOSPHATASE (BEAKER) (test ggsc=268) 152 U/L 40-150 AST (SGOT) (BEAKER) (test ruow=007) 55 U/L 5-34 ALT (SGPT) (BEAKER) (test mfvk=823) 29 U/L 6-55 Specimen moderately ictericCREATINE KINASE (CK)2018-12-13 06:29:00 Test Item Value Reference Range Comments CREATINE KINASE TOTAL (BEAKER) (test fgfz=374) 60 U/L 29-200 [id number] 06:21:00 Test Item Value Reference Range Comments ETHANOL (BEAKER) (test ecpw=929) < mg/dL <=10 OCCULT BLOOD, [id number] 05:39:00 Test Item Value Reference Range Comments FECAL OCCULT BLOOD (BEAKER) (test lyna=449) Negative Negative U/S, ABDOMINAL, [id number] 05:28:00Reason for exam:->ascitesFINAL REPORT INDICATION: ascites COMPARISON: None. TECHNIQUE: Real-time transabdominal pradhan scale ultrasound of the abdomen. IMPRESSION: No intra-abdominal ascites. Signed: Phoebe Haile Verified Date/Time : 12/13/2018 05:28:07 BLOOD CULTURE IDENTIFICATION [id number] 15:25:00 Test Item Value Reference Range Comments LISTERIA MONOCYTOGENES Not detected Not detected (test edut=[id number]) STAPHYLOCOCCUS (test Detected Not detected drki=[id number]) STAPHYLOCOCCUS AUREUS Detected Not detected Methicillin-susceptible S. (test pacr=4855149) aureus (MSSA)First-line therapy: Cefazolin or Oxacillin (Oxacillin preferred if REGISTERED NURSE CARDIAC involvement) ID CONSULTATION REQUIREDStaphylococcus aureus DETECTEDMecA NOT DETECTED Reference Range: Not Detected STREPTOCOCCUS (test Not detected Not detected hfbl=9303117) STREPTOCOCCUS AGALACTIAE Not detected Not detected (GROUP B) (test rieq=4664469) STREPTOCOCCUS PNEUMONIAE Not detected Not detected (test dqbr=4471034) STREPTOCOCCUS PYOGENES Not detected Not detected (GROUP A) (test qqnv=3980705) ACINETOBACTER BAUMANNII Not detected Not detected (test cadu=4372354) HAEMOPHILUS INFLUENZAE Not detected Not detected (test utay=4847435) NEISSERIA MENINGITIDIS Not detected Not detected (test vrop=4949769) ENTEROBACTERIACEAE (test Not detected Not detected upwn=1483755) ENTEROBACTER CLOACOE Not detected Not detected COMPLEX (test bfhz=9368553) KLEBSIELLA OXYTOCA (test Not detected Not detected mlco=4887224) KLEBSIELLA PNEUMONIAE Not detected Not detected (test rmpg=1692) PROTEUS (test Not detected Not detected yqvk=0584952) SERRATIA MARCESCENS (test Not detected Not detected mxgh=2067463) ELSA ALBICANS (test Not detected Not detected atzq=5407518) ELSA GLABRATA (test Not detected Not detected zmar=9564654) ELSA KRUSEI (test Not detected Not detected fvqm=0969708) ELSA PARAPSILOSIS (test Not detected Not detected vjgl=5335269) ELSA TROPICALIS (test Not detected Not detected mnmh=9329774) ESCHERICHIA COLI (test Not detected Not detected svue=2422077) METHICILLIN-RESISTANCE Not detected Not detected GENE (test labz=1353589) VANCOMYCIN-RESISTANCE GENE (test avge=2684184) CARBAPENEM-RESISTANCE GENE (test ztng=9100735) ENTEROCOCCUS-BEAKER (test Not detected Not detected cpgy=9522321) PSEUDOMONAS Not detected Not detected AERUGINOSA-BEAKER (test qtot=4680824) Other bacteria and resistance markers not targeted by this PCR panel cannot be excluded; therefore clinical correlation and follow up of serology, culture results, and other molecular studies is required. The results are not intended to be used as the sole means for clinical diagnosis or patient management decisions. This sample was tested at the [facility] using the [employer] Blood Culture ID Panel. It is FDA cleared and has been verified and approved by the [facility] for clinical use. This laboratory is CLIA-certified and College ofAmerican [employer] (CAP)-accredited to perform high complexity testing.CBC W/PLT COUNT & AUTO [id number] 13:57:00 Test Item Value Reference Range Comments WHITE BLOOD CELL COUNT (BEAKER) (test nhqz=353) 7.6 K/ L 3.5-10.5 RED BLOOD CELL COUNT (BEAKER) (test jecu=980) 2.39 M/ L 4.63-6.08 HEMOGLOBIN (BEAKER) (test kyuv=281) 8.7 GM/DL 13.7-17.5 HEMATOCRIT (BEAKER) (test vwcn=590) 25.5 % 40.1-51.0 MEAN CORPUSCULAR VOLUME (BEAKER) (test jrig=595) 106.7 fL 79.0-92.2 MEAN CORPUSCULAR HEMOGLOBIN (BEAKER) (test 36.4 pg 25.7-32.2 zcbb=604) MEAN CORPUSCULAR HEMOGLOBIN CONC (BEAKER) (test 34.1 GM/DL 32.3-36.5 bdxx=750) RED CELL DISTRIBUTION WIDTH (BEAKER) (test 19.9 % 11.6-14.4 nwak=135) PLATELET COUNT (BEAKER) (test jikc=186) 47 K/CU MM 150-450 MEAN PLATELET VOLUME (BEAKER) (test czre=595) 11.5 fL 9.4-12.4 NUCLEATED RED BLOOD CELLS (BEAKER) (test 0 /100 WBC 0-0 aqfu=524) (MANUAL DIFFERENTIAL)2018-12-12 13:57:00 Test Item Value Reference Range Comments NEUTROPHILS - REL (DIFF) (BEAKER) (test 61 % fxhe=3087) LYMPHOCYTES - REL (DIFF) (BEAKER) (test 5 % hclc=0307) MONOCYTES - REL (DIFF) (BEAKER) (test ggsr=2616) 7 % EOSINOPHILS - REL (DIFF) (BEAKER) (test 2 % vshv=4764) BANDS - REL (DIFF) (BEAKER) (test xvlm=6720) 25 % 0-10 NEUTROPHILS - ABS (DIFF) (BEAKER) (test 4.64 K/ L 1.80-8.00 cqjj=4646) LYMPHOCYTES - ABS (DIFF) (BEAKER) (test 0.38 K/ L 1.48-4.50 zsob=6385) MONOCYTES - ABS (DIFF) (BEAKER) (test iryx=0104) 0.53 K/ L 0.00-1.30 EOSINOPHILS - ABS (DIFF) (BEAKER) (test 0.15 K/ L 0.00-0.50 dwfy=4549) BANDS-ABS (DIFF) (BEAKER) (test dqfn=1967) 1.9 K/ L 0.0-0.8 TOTAL COUNTED (BEAKER) (test zrjv=2286) 100 BANDS + SEGMENTED NEUTROPHILS (BEAKER) (test 6.54 hhup=3275) WBC MORPHOLOGY (BEAKER) (test aonb=549) Normal PLT MORPHOLOGY (BEAKER) (test yvtu=134) Normal ANISOCYTOSIS (BEAKER) (test cuhh=491) 2+ moderate ASHLEY CELLS (BEAKER) (test gazt=714) 1+ few HYPOCHROMIA (BEAKER) (test nwai=194) 1+ few MACROCYTES (BEAKER) (test qxfz=218) 2+ moderate MICROCYTES (BEAKER) (test dend=520) 1+ few OVALOCYTES (BEAKER) (test kwad=190) 1+ few POIKILOCYTES (BEAKER) (test bltn=071) 1+ few POLYCHROMATOPHILLIC RBCS(BEAKER) (test xpnk=746) 1+ few CT, BRAIN, WITHOUT [id number] 13:12:00FINAL REPORT CT, BRAIN, WITHOUT CONTRAST INDICATION: [...] examination is recommended for further characterization. Signed: Chiquis Baeza MDReport Verified Date/Time: 12/12/2018 13:12:48 [id number] 08:41:00 Test Item Value Reference Range Comments MAGNESIUM (BEAKER) (test asci=315) 1.9 mg/dL 1.6-2.6 LIPID [id number] 08:41:00 Test Item Value Reference Range Comments TRIGLYCERIDES (BEAKER) (test wyxl=626) 68 mg/dL CHOLESTEROL (BEAKER) (test lzdk=664) 105 mg/dL HDL CHOLESTEROL (BEAKER) (test tkjw=972) 7 mg/dL LDL CHOLESTEROL CALCULATED (BEAKER) (test 84 mg/dL byao=411) Triglyceride Reference Range: Low Risk <150 Borderline 150- 199 High Risk 200-499 Very High Risk >=500Cholesterol Reference Range: Low Risk <200 Borderline 200-239 High Risk > 240HDL Cholesterol Reference Range: Low Risk >=60 High Risk <40LDL Cholesterol Reference Range: Optimal <100 Near Optimal 100-129 Borderline 130-159 High 160-189 Very High >=190 Specimen moderatelyictericLACTIC ACID, [id number] 07:54:00 Test Item Value Reference Range Comments LACTATE BLOOD VENOUS (2) (BEAKER) (test 1.1 mmol/L 0.5-2.2 otzj=3526) Specimen moderately ictericBASIC METABOLIC [id number] 07:16:00 Test Item Value Reference Range Comments SODIUM (BEAKER) (test 129 meq/L 136-145 pcii=133) POTASSIUM (BEAKER) (test 3.6 meq/L 3.5-5.1 tnte=760) CHLORIDE (BEAKER) (test 101 meq/L 98-107 lfqe=254) CO2 (BEAKER) (test 19 meq/L 22-29 paqg=851) BLOOD UREA NITROGEN 53 mg/dL 7-21 (BEAKER) (test vsgw=551) CREATININE (BEAKER) (test 2.65 mg/dL 0.57-1.25 scwl=597) GLUCOSE RANDOM (BEAKER) 103 mg/dL 70-105 (test rgoo=368) CALCIUM (BEAKER) (test 7.6 mg/dL 8.4-10.2 bubv=743) EGFR (BEAKER) (test 25 mL/min/1.73 sq m ESTIMATED GFR IS NOT qiif=2809) ACCURATE CREATININE CLEARANCE IN PREDICTING GLOMERULAR FILTRATION RATE. ESTIMATED GFR IS NOT APPLICABLE FOR DIALYSIS PATIENTS. Specimen moderately [id number] 07:13:00 Test Item Value Reference Range Comments PHOSPHORUS (BEAKER) (test rqhz=576) 4.2 mg/dL 2.3-4.7 HEPATIC FUNCTION [id number] 07:13:00 Test Item Value Reference Range Comments TOTAL PROTEIN (BEAKER) (test ltwh=353) 6.3 gm/dL 6.0-8.3 ALBUMIN (BEAKER) (test prdk=0502) 2.0 g/dL 3.5-5.0 BILIRUBIN TOTAL (BEAKER) (test thrf=361) 6.2 mg/dL 0.2-1.2 BILIRUBIN DIRECT (BEAKER) (test brzs=331) 4.0 mg/dL 0.1-0.5 ALKALINE PHOSPHATASE (BEAKER) (test oula=267) 161 U/L 40-150 AST (SGOT) (BEAKER) (test ujxq=237) 61 U/L 5-34 ALT (SGPT) (BEAKER) (test poso=652) 29 U/L 6-55 Specimen moderately ictericPROTHROMBIN TIME/[id number] 05:25:00 Test Item Value Reference Range Comments PROTIME (BEAKER) (test ydye=817) 25.8 seconds 11.9-14.2 INR (BEAKER) (test qydi=083) 2.5 <=5.9 Effective 09/16/2018: PT Reference Range ChangeNew: 11.9-14.2 Previous: 11.7- 14.7RECOMMENDED COUMADIN/WARFARIN INR THERAPY RANGESSTANDARD DOSE: 2.0-3.0 Includes: PROPHYLAXIS for venous thrombosis, systemic embolization; TREATMENT for venous thrombosis and/or pulmonary embolus.HIGH RISK: Target INR is2.5-3.5 for patients wiht mechanical heart valves.BLOOD GAS, [id number] 05:16:00 Test Item Value Reference Range Comments PH VENOUS (BEAKER) (test qmiv=380) 7.44 7.32-7.42 PCO2 VENOUS (BEAKER) (test arvz=219) 32 mmHg 41-51 PO2 VENOUS (BEAKER) (test vgbr=972) 59 mmHg 25-40 O2 SATURATION VENOUS (BEAKER) (test hzmq=787) 92.5 % 40.0-70.0 HCO3 VENOUS (BEAKER) (test ozhi=001) 21 mmol/L 21-29 BASE EXCESS VENOUS (BEAKER) (test minm=627) -2.6 mmol/L -2.0-3.0 PATIENT TEMPERATURE (BEAKER) (test wrht=5907) 36.3 C FIO2 (BEAKER) (test zkub=5495) 21.0 % CBC W/PLT COUNT & AUTO [id number] 23:25:00 Test Item Value Reference Range Comments WHITE BLOOD CELL COUNT (BEAKER) (test ytnq=803) 7.7 K/ L 3.5-10.5 RED BLOOD CELL COUNT (BEAKER) (test knpx=242) 2.55 M/ L 4.63-6.08 HEMOGLOBIN (BEAKER) (test xmgw=867) 9.3 GM/DL 13.7-17.5 HEMATOCRIT (BEAKER) (test lfjl=200) 27.2 % 40.1-51.0 MEAN CORPUSCULAR VOLUME (BEAKER) (test ewog=381) 106.7 fL 79.0-92.2 MEAN CORPUSCULAR HEMOGLOBIN (BEAKER) (test 36.5 pg 25.7-32.2 qpbt=749) MEAN CORPUSCULAR HEMOGLOBIN CONC (BEAKER) (test 34.2 GM/DL 32.3-36.5 eyvm=620) RED CELL DISTRIBUTION WIDTH (BEAKER) (test 19.6 % 11.6-14.4 dnyy=171) PLATELET COUNT (BEAKER) (test tysb=204) 59 K/CU MM 150-450 MEAN PLATELET VOLUME (BEAKER) (test kcsc=740) 11.5 fL 9.4-12.4 NUCLEATED RED BLOOD CELLS (BEAKER) (test 0 /100 WBC 0-0 zgyh=995) (CELLAVISION MANUAL DIFF)2018-12-11 23:25:00 Test Item Value Reference Range Comments NEUTROPHILS - REL (CELLAVISION)(BEAKER) (test 90 % drnc=5306) LYMPHOCYTES - REL (CELLAVISION)(BEAKER) (test 1 % bcba=4183) MONOCYTES - REL (CELLAVISION)(BEAKER) (test 1 % ivbg=9350) EOSINOPHILS - REL (CELLAVISION)(BEAKER) (test 1 % jglw=4111) BASOPHILS - REL (CELLAVISION)(BEAKER) (test 1 % ekxw=7660) METAMYELOCYTES - REL (CELLAVISION)(BEAKER) (test 1 % 0-0 vbel=9688) MYELOCYTES - REL (CELLAVISION)(BEAKER) (test 1 % 0-0 ddit=3877) PROMYELOCYTES - REL (CELLAVSION)(BEAKER) (test 3 % 0-0 xawu=3121) BANDS - REL (CELLAVISION)(BEAKER) (test 1 % 0-10 msld=5182) NEUTROPHILS - ABS (CELLAVISION)(BEAKER) (test 6.93 K/ul 1.78-5.38 bwya=7322) LYMPHOCYTES - ABS (CELLAVISION)(BEAKER) (test 0.08 K/ul 1.32-3.57 ttmo=7464) MONOCYTES - ABS (CELLAVISION)(BEAKER) (test 0.08 K/uL 0.30-0.82 rpkg=3094) EOSINOPHILS - ABS (CELLAVISION)(BEAKER) (test 0.08 K/uL 0.04-0.54 enhv=1464) BASOPHILS - ABS (CELLAVISION)(BEAKER) (test 0.08 K/uL 0.01-0.08 zlpk=3787) METAMYELOCYTES - ABS (CELLAVISION)(BEAKER) (test 0.08 K/uL 0.00-0.00 yhbf=1567) MYELOCYTES-ABS (CELLAVISION)(BEAKER) (test 0.08 K/uL 0.00-0.00 eknz=2886) PROMYELOCYTES - ABS (CELLAVISION)(BEAKER) (test 0.23 K/uL 0.00-0.00 mroo=8307) BANDS - ABS (CELLAVISION)(BEAKER) (test 0.08 K/uL 0.00-0.80 bjfn=0905) TOTAL COUNTED (BEAKER) (test kwbq=3480) 100 SMUDGE CELLS (BEAKER) (test ivkw=9156) Present GIANT PLATELETS (BEAKER) (test gbxe=788) Present POLYCHROMATOPHILLIC RBCS(BEAKER) (test mhgl=203) 1+ few ANISOCYTOSIS (BEAKER) (test ijay=454) 3+ many MACROCYTES (BEAKER) (test snel=023) 3+ many POIKILOCYTES (BEAKER) (test eivb=408) 1+ few SCHISTOCYTES (BEAKER) (test huep=700) 2+ moderate SPHEROCYTES (BEAKER) (test uibj=632) 1+ few ELLIPTOCYTES (BEAKER) (test hput=592) 2+ moderate OVALOCYTES (BEAKER) (test jeni=813) 1+ few STOMATOCYTES (BEAKER) (test wzlv=652) 1+ few ACANTHOCYTES (BEAKER) (test sjaq=926) 1+ few ARTIFACT (CELLAVISION)(BEAKER) (test vjga=2514) Present HELMET CELLS (CELLAVISION)(BEAKER) (test 1+ few jfbz=1725) PLATELET CONCENTRATION (CELLAVISION)(BEAKER) Decreased (test jitd=7574) Received comment: User comments: Slide comments:BASIC METABOLIC [id number] 23:18:00 Test Item Value Reference Range Comments SODIUM (BEAKER) (test 127 meq/L 136-145 ubfa=241) POTASSIUM (BEAKER) (test 3.9 meq/L 3.5-5.1 oygs=999) CHLORIDE (BEAKER) (test 101 meq/L 98-107 qdmp=965) CO2 (BEAKER) (test 19 meq/L 22-29 khbx=730) BLOOD UREA NITROGEN 46 mg/dL 7-21 (BEAKER) (test fixb=404) CREATININE (BEAKER) (test 2.21 mg/dL 0.57-1.25 macp=427) GLUCOSE RANDOM (BEAKER) 110 mg/dL 70-105 (test xkkf=442) CALCIUM (BEAKER) (test 7.7 mg/dL 8.4-10.2 snav=812) EGFR (BEAKER) (test 31 mL/min/1.73 sq m ESTIMATED GFR IS NOT dqty=6385) ACCURATE CREATININE CLEARANCE IN PREDICTING GLOMERULAR FILTRATION RATE. ESTIMATED GFR IS NOT APPLICABLE FOR DIALYSIS PATIENTS. Specimen moderately ictericHEPATIC FUNCTION [id number] 23:02:00 Test Item Value Reference Range Comments TOTAL PROTEIN (BEAKER) (test mfoa=786) 7.0 gm/dL 6.0-8.3 ALBUMIN (BEAKER) (test gddq=1059) 2.1 g/dL 3.5-5.0 BILIRUBIN TOTAL (BEAKER) (test uknm=831) 7.0 mg/dL 0.2-1.2 BILIRUBIN DIRECT (BEAKER) (test wipa=599) 3.8 mg/dL 0.1-0.5 ALKALINE PHOSPHATASE (BEAKER) (test ppzn=022) 165 U/L 40-150 AST (SGOT) (BEAKER) (test lxxu=158) 61 U/L 5-34 ALT (SGPT) (BEAKER) (test utpo=195) 30 U/L 6-55 Specimen moderately ictericHEMOGLOBIN [id number] 14:39:00 Test Item Value Reference Range Comments HEMOGLOBIN A1C (BEAKER) (test ksls=230) 4.0 % 4.3-6.1 MYOCARD IMAGING, MULTI, PHARM, [id number] 13:54:00FINAL REPORT PROCEDURE: MYOCARDIAL PERFUSION SPECT IMAGING (Rest/Stress)CPT CODE : [id number] INDICATION: Preoperative evaluation for liver transplantation CARDIOVASCULAR [...] is no prior study for comparison. Signed: Jonna Owens MDReport Verified Date/Time: 10/15/2018 13:54 :29 Reading Location: [address] Reading Room CRYPTOCOCCAL [id number] 13:16:00 Test Item Value Reference Range Comments CRYPTOCOCCAL ANTIGEN, SERUM (BEAKER) (test Negative Negative, Interference eqjl=5643) [id number] 13:16:00 Test Item Value Reference Range Comments RPR SCREEN (BEAKER) (test wykq=523) Nonreactive Nonreactive URINALYSIS W/ [id number] 11:42:00 Test Item Value Reference Range Comments COLOR (BEAKER) (test sjja=805) Dark Yellow CLARITY (BEAKER) (test ekvj=978) Clear SPECIFIC GRAVITY UA (BEAKER) (test qgzc=900) 1.019 1.001-1.035 PH UA (BEAKER) (test peql=169) 5.5 5.0-8.0 PROTEIN UA (BEAKER) (test dydv=335) Negative Negative GLUCOSE UA (BEAKER) (test xwby=559) Negative Negative KETONES UA (BEAKER) (test xzss=152) Negative Negative BILIRUBIN UA (BEAKER) (test hnxy=099) Negative Negative BLOOD UA (BEAKER) (test mlnh=781) Negative Negative NITRITE UA (BEAKER) (test dvyo=014) Negative Negative LEUKOCYTE ESTERASE UA (BEAKER) (test gtqa=778) Negative Negative UROBILINOGEN UA (BEAKER) (test abae=308) 3.0 mg/dL 0.2-1.0 RBC UA (BEAKER) (test wazt=209) < /HPF WBC UA (BEAKER) (test zsns=088) 3 /HPF BACTERIA (BEAKER) (test nyzy=996) Rare MUCUS (BEAKER) (test toch=2124) Occasional SOURCE(BEAKER) (test gtau=4458) CYTOMEGALOVIRUS ANTIBODY, [id number] 10:44:00 Test Item Value Reference Range Comments CYTOMEGALOVIRUS, IGG (BEAKER) (test anft=4071) Positive Negative, Equivocal CMV IgG Result Interpretation: </=0.8 Al Negative 0.9-1.0 Al Equivocal &gt ;/=1.1 Al PositiveCYTOMEGALOVIRUS ANTIBODY, [id number] 10:44:00 Test Item Value Reference Range Comments CYTOMEGALOVIRUS IGM ANTIBODY (BEAKER) (test Equivocal Negative, Equivocal yhut=3071) CMV IgM Result Interpretation: </=0.8 Al Negative 0.9-1.0 Al Equivocal >/=1.1 Al PositiveEBV ANTIBODY, [id number] 10:44:00 Test Item Value Reference Range Comments JOSEPH LAMAR VIRAL CAPSID ANTIGEN IGG (BEAKER) Positive Negative, Equivocal (test waas=6027) Joseph Lamar Viral Capsid Antigen IgG Result Interpretation: </=0.8 Al Negative 0.9-1.0 Al Equivocal >/=1.1 Al PositiveEBV ANTIBODY, [id number] 10:44:00 Test Item Value Reference Range Comments JOSEPH LAMAR VIRAL CAPSID ANTIGEN IGM (BEAKER) Negative Negative, Equivocal (test njiq=7387) Joseph Lamar Viral Capsid Antigen IgM Result Interpretation: </=0.8 Al Negative 0.9-1.0 Al Equivocal >/=1.1 Al PositiveHEPATITIS B CORE ANTIBODY , [id number] 08:51:00 Test Item Value Reference Range Comments HEPATITIS B CORE IGM ANTIBODY (BEAKER) (test Nonreactive Nonreactive vcso=816) HIV-1 ANTIGEN WITH HIV-1/2 [id number] 08:51:00 Test Item Value Reference Range Comments HIV-1 ANTIGEN WITH HIV 1\T\2 ANTIBODY (2) Nonreactive Nonreactive (BEAKER) (test kvgb=0241) [id number] 08:49:00 Test Item Value Reference Range Comments PROSTATE SPECIFIC ANTIGEN (BEAKER) (test izjg=153) 0.0 ng/mL 0.0-4.0 CARCINOEMBRYONIC ANTIGEN (CEA)2018-10-15 08:47:00 Test Item Value Reference Range Comments CARCINOEMBRYONIC ANTIGEN (BEAKER) (test qexn=117) 12.8 ng/mL 0.0-5.0 HEPATITIS A ANTIBODY, [id number] 08:47:00 Test Item Value Reference Range Comments HEPATITIS A IGM ANTIBODY (BEAKER) (test Nonreactive Nonreactive nwub=872) HEPATITIS B CORE ANTIBODY, [id number] 08:47:00 Test Item Value Reference Range Comments HEPATITIS B CORE TOTAL ANTIBODY (BEAKER) (test Nonreactive Nonreactive azbx=130) VITAMIN D, [id number] 08:45:00 Test Item Value Reference Range Comments VITAMIN D 25-OH (BEAKER) (test kuah=8037) 8.9 ng/mL 6.6-49.9 Effective 01/29/2017: Reference Range ChangeNew: 6.6-49.9 ng/mL Previous: 13.0 -47.8 ng/mLRecommended Vitamin D Target Range: 30.0-40.0 ng/[id number] 08:26:00 Test Item Value Reference Range Comments MAGNESIUM (BEAKER) (test fykx=660) 1.5 mg/dL 1.6-2.6 [id number] 08:26:00 Test Item Value Reference Range Comments PHOSPHORUS (BEAKER) (test qdqu=849) 3.9 mg/dL 2.3-4.7 URIC [id number] 08:26:00 Test Item Value Reference Range Comments URIC ACID (BEAKER) (test nexi=681) 3.7 mg/dL 2.6-7.2 Specimen moderately ictericCOMPREHENSIVE METABOLIC [id number] 08:26:00 Test Item Value Reference Range Comments TOTAL PROTEIN (BEAKER) 7.7 gm/dL 6.0-8.3 (test lqkp=243) ALBUMIN (BEAKER) (test 2.2 g/dL 3.5-5.0 uxrn=2769) ALKALINE PHOSPHATASE 165 U/L 40-150 (BEAKER) (test sdoh=979) BILIRUBIN TOTAL (BEAKER) 6.3 mg/dL 0.2-1.2 (test ivlr=223) SODIUM (BEAKER) (test 135 meq/L 136-145 sqdw=165) POTASSIUM (BEAKER) (test 4.1 meq/L 3.5-5.1 wxbr=458) CHLORIDE (BEAKER) (test 105 meq/L 98-107 npgo=987) CO2 (BEAKER) (test 27 meq/L 22-29 hgxd=246) BLOOD UREA NITROGEN 15 mg/dL 7-21 (BEAKER) (test msjw=694) CREATININE (BEAKER) (test 0.88 mg/dL 0.57-1.25 gffl=560) GLUCOSE RANDOM (BEAKER) 84 mg/dL 70-105 (test jtmx=890) CALCIUM (BEAKER) (test 8.9 mg/dL 8.4-10.2 gqnm=391) AST (SGOT) (BEAKER) (test 125 U/L 5-34 pwmv=239) ALT (SGPT) (BEAKER) (test 49 U/L 6-55 qmos=304) EGFR (BEAKER) (test 91 mL/min/1.73 sq m ESTIMATED GFR IS NOT yhhm=5406) ACCURATE CREATININE CLEARANCE IN PREDICTING GLOMERULAR FILTRATION RATE. ESTIMATED GFR IS NOT APPLICABLE FOR DIALYSIS PATIENTS. Specimen moderately ictericLIPID [id number] 08:26:00 Test Item Value Reference Range Comments TRIGLYCERIDES (BEAKER) (test ssqr=975) 70 mg/dL CHOLESTEROL (BEAKER) (test tjav=292) 121 mg/dL HDL CHOLESTEROL (BEAKER) (test mreg=823) 8 mg/dL LDL CHOLESTEROL CALCULATED (BEAKER) (test 99 mg/dL wbrq=323) Triglyceride Reference Range: Low Risk <150 Borderline 150- 199 High Risk 200-499 Very High Risk >=500Cholesterol Reference Range: Low Risk <200 Borderline 200-239 High Risk > 240HDL Cholesterol Reference Range: Low Risk >=60 High Risk <40LDL Cholesterol Reference Range: Optimal <100 Near Optimal 100-129 Borderline 130-159 High 160-189 Very High >=190 Specimen moderatelyictericBILIRUBIN, [id number] 08:26:00 Test Item Value Reference Range Comments BILIRUBIN DIRECT (BEAKER) (test iqiq=896) 3.6 mg/dL 0.1-0.5 GAMMA GLUTAMYL TRANSFERASE (GGT)2018-10-15 08:26:00 Test Item Value Reference Range Comments GAMMA GLUTAMYL TRANSFERASE (BEAKER) (test xrfa=914) 68 U/L 9-64 Specimen moderately [id number] 08:25:00 Test Item Value Reference Range Comments TRANSFERRIN (BEAKER) (test kfci=659) 106 mg/dL 174-382 Specimen moderately ictericIRON, TIBC, % SAT. (WITHOUT FERRITIN)2018-10-15 08:25 :00 Test Item Value Reference Range Comments IRON (BEAKER) (test maaa=115) 134.0 ug/dL 40.0-160.0 TOTAL IRON BINDING CAPACITY (BEAKER) (test 133 ug/dL 250-450 lbdm=548) IRON % SATURATION (2) (BEAKER) (test jfmp=3554) 101 % 20-55 [id number] 08:22:00 Test Item Value Reference Range Comments ETHANOL (BEAKER) (test wpkb=129) < mg/dL <=10 [id number] 08:14:00 Test Item Value Reference Range Comments FIBRINOGEN LEVEL (BEAKER) (test vzth=077) 201 mg/dl 225-434 [id number] 08:09:00 Test Item Value Reference Range Comments PARTIAL THROMBOPLASTIN TIME (BEAKER) (test 49.2 seconds 22.5-36.0 bydz=588) CALCIUM, [id number] 08:09:00 Test Item Value Reference Range Comments CALCIUM IONIZED (BEAKER) (test nkil=519) 1.07 mmol/L 1.12-1.27 PH, BLOOD (BEAKER) (test shpa=6241) 7.44 PROTHROMBIN [id number] 08:08:00 Test Item Value Reference Range Comments PROTIME (BEAKER) (test ivql=510) 21.4 seconds 11.9-14.2 INR (BEAKER) (test gjbm=031) 2.0 <=5.9 Effective 09/16/2018: PT Reference Range ChangeNew: 11.9-14.2 Previous: 11.7- 14.7RECOMMENDED COUMADIN/WARFARIN INR THERAPY RANGESSTANDARD DOSE: 2.0-3.0 Includes: PROPHYLAXIS for venous thrombosis, systemic embolization; TREATMENT for venous thrombosis and/or pulmonary embolus.HIGH RISK: Target INR is2.5-3.5 for patients wiht mechanical heart valves.CBC W/PLT COUNT & AUTO [id number] 07:59:00 Test Item Value Reference Range Comments WHITE BLOOD CELL COUNT (BEAKER) (test ybeq=110) 5.4 K/ L 3.5-10.5 RED BLOOD CELL COUNT (BEAKER) (test yhwl=725) 3.03 M/ L 4.63-6.08 HEMOGLOBIN (BEAKER) (test hdmn=138) 11.0 GM/DL 13.7-17.5 HEMATOCRIT (BEAKER) (test yfqc=296) 32.2 % 40.1-51.0 MEAN CORPUSCULAR VOLUME (BEAKER) (test pitg=658) 106.3 fL 79.0-92.2 MEAN CORPUSCULAR HEMOGLOBIN (BEAKER) (test 36.3 pg 25.7-32.2 einj=223) MEAN CORPUSCULAR HEMOGLOBIN CONC (BEAKER) (test 34.2 GM/DL 32.3-36.5 tdrd=180) RED CELL DISTRIBUTION WIDTH (BEAKER) (test 14.7 % 11.6-14.4 pjdj=338) PLATELET COUNT (BEAKER) (test gihw=456) 76 K/CU MM 150-450 MEAN PLATELET VOLUME (BEAKER) (test rkbc=708) 11.8 fL 9.4-12.4 NUCLEATED RED BLOOD CELLS (BEAKER) (test 0 /100 WBC 0-0 nepe=621) NEUTROPHILS RELATIVE PERCENT (BEAKER) (test 59 % wpsq=673) LYMPHOCYTES RELATIVE PERCENT (BEAKER) (test 29 % syvj=795) MONOCYTES RELATIVE PERCENT (BEAKER) (test 6 % yfdp=797) EOSINOPHILS RELATIVE PERCENT (BEAKER) (test 4 % rtkf=957) BASOPHILS RELATIVE PERCENT (BEAKER) (test 1 % uffd=719) NEUTROPHILS ABSOLUTE COUNT (BEAKER) (test 3.19 K/ L 1.78-5.38 hywf=063) LYMPHOCYTES ABSOLUTE COUNT (BEAKER) (test 1.58 K/ L 1.32-3.57 paet=032) MONOCYTES ABSOLUTE COUNT (BEAKER) (test kfwd=187) 0.32 K/ L 0.30-0.82 EOSINOPHILS ABSOLUTE COUNT (BEAKER) (test 0.23 K/ L 0.04-0.54 qldr=300) BASOPHILS ABSOLUTE COUNT (BEAKER) (test zxgx=843) 0.03 K/ L 0.01-0.08 IMMATURE GRANULOCYTES-RELATIVE PERCENT (BEAKER) 0 % 0-1 (test gvto=2591) RAD, CHEST, 2 [id number] 13:28:00Reason for Exam:->Pre-transplant evaluation for liver transplantFINAL REPORT INDICATION: Pre-transplant evaluation for liver transplant COMPARISON: September 15, 2018 TECHNIQUE: Chest radiograph, two views, PA and lateral. FINDINGS / IMPRESSION: Lung volumes are normal and no pneumonia or pulmonary edema is demonstrated. Heart shadow normal in size. No pneumothorax or pleural effusion demonstrated. Osseous structures unremarkable. Signed: Yolanda Lott MDReport Verified Date/ Time: 10/14/2018 13:28:52 Reading Location: [address] Radiology Reading Room 01: 28 PMRAD, MANDIBLE, MIN 4 [id number] 12:14:00Reason for Exam:->Pre- transplant evaluation for liver [...] Gooden Verified Date/Time: 10/14/2018 12:14:27 Reading Location: [facility] Radiology Reading Room Electronically signed by: YAN GOODEN M.D. on 12:14 PMRAD, BONE DENSITY [id number] 12:10:00Reason for Exam:-> Pre-transplant evaluation for liver [...] the Z-score is -1.4. Signed: Juanita Watkins Verified Date/Time: 10/14/2018 12:10:27 [facility]10 PM[facility] W/PLT COUNT & AUTO [id number] 12:37:00 Test Item Value Reference Range Comments WHITE BLOOD CELL COUNT (BEAKER) (test ezkn=810) 6.1 K/ L 3.5-10.5 RED BLOOD CELL COUNT (BEAKER) (test jhit=894) 3.15 M/ L 4.63-6.08 HEMOGLOBIN (BEAKER) (test dxdb=887) 11.5 GM/DL 13.7-17.5 HEMATOCRIT (BEAKER) (test xhue=504) 34.6 % 40.1-51.0 MEAN CORPUSCULAR VOLUME (BEAKER) (test vuiv=229) 109.8 fL 79.0-92.2 MEAN CORPUSCULAR HEMOGLOBIN (BEAKER) (test 36.5 pg 25.7-32.2 lonc=691) MEAN CORPUSCULAR HEMOGLOBIN CONC (BEAKER) (test 33.2 GM/DL 32.3-36.5 esqn=712) RED CELL DISTRIBUTION WIDTH (BEAKER) (test 15.4 % 11.6-14.4 dhjj=036) PLATELET COUNT (BEAKER) (test gqgj=388) 83 K/CU MM 150-450 MEAN PLATELET VOLUME (BEAKER) (test itrt=705) 12.3 fL 9.4-12.4 NUCLEATED RED BLOOD CELLS (BEAKER) (test 0 /100 WBC 0-0 lceu=784) (CELLAVISION MANUAL DIFF)2018-10-05 12:37:00 Test Item Value Reference Range Comments NEUTROPHILS - REL (CELLAVISION)(BEAKER) (test 75 % nnaf=7448) LYMPHOCYTES - REL (CELLAVISION)(BEAKER) (test 13 % cfbp=3968) MONOCYTES - REL (CELLAVISION)(BEAKER) (test 12 % ecac=8433) EOSINOPHILS - REL (CELLAVISION)(BEAKER) (test 1 % edzt=5179) NEUTROPHILS - ABS (CELLAVISION)(BEAKER) (test 4.58 K/ul 1.78-5.38 yyqj=9818) LYMPHOCYTES - ABS (CELLAVISION)(BEAKER) (test 0.79 K/ul 1.32-3.57 fcbc=5244) MONOCYTES - ABS (CELLAVISION)(BEAKER) (test 0.73 K/uL 0.30-0.82 jfcf=7634) EOSINOPHILS - ABS (CELLAVISION)(BEAKER) (test 0.06 K/uL 0.04-0.54 rkzm=0146) TOTAL COUNTED (BEAKER) (test bfou=7785) 100 WBC MORPHOLOGY (BEAKER) (test xgea=120) Normal PLT MORPHOLOGY (BEAKER) (test jcur=092) Normal ANISOCYTOSIS (BEAKER) (test bran=018) 3+ many MACROCYTES (BEAKER) (test augz=025) 3+ many ARTIFACT (CELLAVISION)(BEAKER) (test zdde=2995) Present PLATELET CONCENTRATION (CELLAVISION)(BEAKER) (test Decreased enks=5386) Received comment: User comments: Slide comments:BASIC METABOLIC [id number] 12:30:00 Test Item Value Reference Range Comments SODIUM (BEAKER) (test 135 meq/L 136-145 bfqh=258) POTASSIUM (BEAKER) (test 4.3 meq/L 3.5-5.1 hemn=855) CHLORIDE (BEAKER) (test 103 meq/L 98-107 ockn=536) CO2 (BEAKER) (test 26 meq/L 22-29 wedn=747) BLOOD UREA NITROGEN 9 mg/dL 7-21 (BEAKER) (test zltr=325) CREATININE (BEAKER) (test 0.78 mg/dL 0.57-1.25 qmjk=611) GLUCOSE RANDOM (BEAKER) 75 mg/dL 70-105 (test ifne=521) CALCIUM (BEAKER) (test 8.1 mg/dL 8.4-10.2 oifn=543) EGFR (BEAKER) (test 105 mL/min/1.73 sq m ESTIMATED GFR IS NOT mphg=6124) ACCURATE CREATININE CLEARANCE IN PREDICTING GLOMERULAR FILTRATION RATE. ESTIMATED GFR IS NOT APPLICABLE FOR DIALYSIS PATIENTS. Specimen moderately ictericHEPATIC FUNCTION [id number] 12:30:00 Test Item Value Reference Range Comments TOTAL PROTEIN (BEAKER) (test ufbm=230) 8.2 gm/dL 6.0-8.3 ALBUMIN (BEAKER) (test ppcy=9243) 2.3 g/dL 3.5-5.0 BILIRUBIN TOTAL (BEAKER) (test nmdp=854) 5.3 mg/dL 0.2-1.2 BILIRUBIN DIRECT (BEAKER) (test mtom=665) 3.6 mg/dL 0.1-0.5 ALKALINE PHOSPHATASE (BEAKER) (test buxe=627) 162 U/L 40-150 AST (SGOT) (BEAKER) (test mxoo=965) 180 U/L 5-34 ALT (SGPT) (BEAKER) (test uzjt=834) 67 U/L 6-55 Specimen moderately ictericPROTHROMBIN [id number] 12:03:00 Test Item Value Reference Range Comments PROTIME (ANA MARIA) (test rhmx=039) 21.8 seconds 11.9-14.2 INR (BEAKER) (test nana=690) 2.0 <=5.9 Effective 09/16/2018: PT Reference Range ChangeNew: 11.9-14.2 Previous: 11.7- 14.7RECOMMENDED COUMADIN/WARFARIN INR THERAPY RANGESSTANDARD DOSE: 2.0-3.0 Includes: PROPHYLAXIS for venous thrombosis, systemic embolization; TREATMENT for venous thrombosis and/or pulmonary embolus.HIGH RISK: Target INR is2.5-3.5 for patients wiht mechanical heart valves.BLOOD [id number] 08:00:00 Test Item Value Reference Range Comments CULTURE (ANA MARIA) (test ydvq=4742) No growth in 5 days ANTI-MITOCHONDRIAL AB, REFLEX TO [id number] 08:08:00 Test Item Value Reference Range Comments SCAN RESULT (test tneq=[id number]) MR, ABDOMEN, [id number] 08:58:00FINAL REPORT TECHNIQUE: MRI of the abdomen [...] MDReport Verified Date/Time: 09/17/2018 08:58:29 Reading Location: [facility] Diagnostic Imaging Reading Room - [place] [address] 1120 POCT- GLUCOSE [id number] 08:20:00 Test Item Value Reference Range Comments POC-GLUCOSE METER (BEAKER) 98 mg/dL 70-[address] [facility] [address] [facility] (test nouy=2322) [facility] [address] COMPREHENSIVE METABOLIC [id number] 04:44:00 Test Item Value Reference Range Comments TOTAL PROTEIN (BEAKER) 5.9 gm/dL 6.0-8.3 (test rrpc=868) ALBUMIN (BEAKER) (test 1.8 g/dL 3.5-5.0 pfvn=0978) ALKALINE PHOSPHATASE 142 U/L 40-150 (BEAKER) (test frnr=606) BILIRUBIN TOTAL (BEAKER) 6.3 mg/dL 0.2-1.2 (test drzk=638) SODIUM (BEAKER) (test 135 meq/L 136-145 ljrx=661) POTASSIUM (BEAKER) (test 3.7 meq/L 3.5-5.1 kjgb=850) CHLORIDE (BEAKER) (test 102 meq/L 98-107 gqro=695) CO2 (BEAKER) (test 31 meq/L 22-29 yvmn=163) BLOOD UREA NITROGEN 9 mg/dL 7-21 (BEAKER) (test rzgq=244) CREATININE (BEAKER) (test 0.71 mg/dL 0.57-1.25 oryh=540) GLUCOSE RANDOM (BEAKER) 88 mg/dL 70-105 (test aeqf=095) CALCIUM (BEAKER) (test 7.5 mg/dL 8.4-10.2 xqqr=609) AST (SGOT) (BEAKER) (test 99 U/L 5-34 tvir=512) ALT (SGPT) (BEAKER) (test 31 U/L 6-55 qhda=931) EGFR (BEAKER) (test 117 mL/min/1.73 sq ESTIMATED GFR IS NOT tqff=3450) m ACCURATE CREATININE CLEARANCE IN PREDICTING GLOMERULAR FILTRATION RATE. ESTIMATED GFR IS NOT APPLICABLE FOR DIALYSIS PATIENTS. Specimen moderately [id number] 04:41:00 Test Item Value Reference Range Comments MAGNESIUM (BEAKER) (test nexe=586) 1.7 mg/dL 1.6-2.6 PROTHROMBIN [id number] 04:28:00 Test Item Value Reference Range Comments PROTIME (BEAKER) (test dcqt=738) 24.3 seconds 11.9-14.2 INR (BEAKER) (test ewoj=614) 2.3 <=5.9 Effective 09/16/2018: PT Reference Range ChangeNew: 11.9-14.2 Previous: 11.7- 14.7RECOMMENDED COUMADIN/WARFARIN INR THERAPY RANGESSTANDARD DOSE: 2.0-3.0 Includes: PROPHYLAXIS for venous thrombosis, systemic embolization; TREATMENT for venous thrombosis and/or pulmonary embolus.HIGH RISK: Target INR is2.5-3.5 for patients wiht mechanical heart valves.CBC W/PLT COUNT & AUTO [id number] 04:20:00 Test Item Value Reference Range Comments WHITE BLOOD CELL COUNT (BEAKER) (test xhbk=049) 5.3 K/ L 3.5-10.5 RED BLOOD CELL COUNT (BEAKER) (test igin=023) 2.51 M/ L 4.63-6.08 HEMOGLOBIN (BEAKER) (test pclz=774) 9.3 GM/DL 13.7-17.5 HEMATOCRIT (BEAKER) (test ehpj=071) 28.0 % 40.1-51.0 MEAN CORPUSCULAR VOLUME (BEAKER) (test gipd=476) 111.6 fL 79.0-92.2 MEAN CORPUSCULAR HEMOGLOBIN (BEAKER) (test 37.1 pg 25.7-32.2 vuvr=619) MEAN CORPUSCULAR HEMOGLOBIN CONC (BEAKER) (test 33.2 GM/DL 32.3-36.5 smxy=641) RED CELL DISTRIBUTION WIDTH (BEAKER) (test 17.6 % 11.6-14.4 keoj=146) PLATELET COUNT (BEAKER) (test ytcy=807) 60 K/CU MM 150-450 MEAN PLATELET VOLUME (BEAKER) (test hoev=775) 11.2 fL 9.4-12.4 NUCLEATED RED BLOOD CELLS (BEAKER) (test 0 /100 WBC 0-0 wjhn=960) NEUTROPHILS RELATIVE PERCENT (BEAKER) (test 62 % txup=666) LYMPHOCYTES RELATIVE PERCENT (BEAKER) (test 24 % eqyq=080) MONOCYTES RELATIVE PERCENT (BEAKER) (test 9 % phqd=233) EOSINOPHILS RELATIVE PERCENT (BEAKER) (test 4 % kpmi=596) BASOPHILS RELATIVE PERCENT (BEAKER) (test 1 % mxqv=154) NEUTROPHILS ABSOLUTE COUNT (BEAKER) (test 3.28 K/ L 1.78-5.38 jkhi=186) LYMPHOCYTES ABSOLUTE COUNT (BEAKER) (test 1.24 K/ L 1.32-3.57 lpnq=230) MONOCYTES ABSOLUTE COUNT (BEAKER) (test yvtb=383) 0.46 K/ L 0.30-0.82 EOSINOPHILS ABSOLUTE COUNT (BEAKER) (test 0.23 K/ L 0.04-0.54 wuap=782) BASOPHILS ABSOLUTE COUNT (BEAKER) (test kokt=888) 0.04 K/ L 0.01-0.08 IMMATURE GRANULOCYTES-RELATIVE PERCENT (BEAKER) 0 % 0-1 (test bgyh=6415) POCT-GLUCOSE [id number] 00:39:00 Test Item Value Reference Range Comments POC-GLUCOSE METER (BEAKER) 98 mg/dL 70-110 TESTED AT [address] (test pdet=4130) [place] [id number] POCT-GLUCOSE [id number] 18:48:00 Test Item Value Reference Range Comments POC-GLUCOSE METER (BEAKER) 112 mg/dL 70-110 TESTED AT [address] (test xcoh=6235) [place] [address] POCT-GLUCOSE [id number] 13:00:00 Test Item Value Reference Range Comments POC-GLUCOSE METER (BEAKER) 107 mg/dL 70-110 TESTED AT [address] (test muyh=6447) [place] [address] URINALYSIS W/ [id number] 10:57:00 Test Item Value Reference Range Comments COLOR (BEAKER) (test rkva=256) Yellow CLARITY (BEAKER) (test wdmt=804) Clear SPECIFIC GRAVITY UA (BEAKER) (test xnit=454) 1.005 1.001-1.035 PH UA (BEAKER) (test iiwo=728) 6.5 5.0-8.0 PROTEIN UA (BEAKER) (test tglm=313) Negative Negative GLUCOSE UA (BEAKER) (test sycg=653) Negative Negative KETONES UA (BEAKER) (test rfnl=996) Negative Negative BILIRUBIN UA (BEAKER) (test jkem=112) Negative Negative BLOOD UA (BEAKER) (test jmox=489) Negative Negative NITRITE UA (BEAKER) (test utai=386) Negative Negative LEUKOCYTE ESTERASE UA (BEAKER) (test xcro=193) Negative Negative UROBILINOGEN UA (BEAKER) (test zdec=243) 2.0 mg/dL 0.2-1.0 RBC UA (BEAKER) (test ejer=750) 0 /HPF WBC UA (BEAKER) (test qdvf=446) < /HPF SOURCE(BEAKER) (test ukrf=1274) Urine, Voided COMPREHENSIVE METABOLIC [id number] 10:29:00 Test Item Value Reference Range Comments TOTAL PROTEIN (BEAKER) 5.9 gm/dL 6.0-8.3 (test mknt=302) ALBUMIN (BEAKER) (test 1.9 g/dL 3.5-5.0 tffu=9325) ALKALINE PHOSPHATASE 139 U/L 40-150 (BEAKER) (test qjde=043) BILIRUBIN TOTAL (BEAKER) 7.4 mg/dL 0.2-1.2 (test xtqi=135) SODIUM (BEAKER) (test 134 meq/L 136-145 plqr=756) POTASSIUM (BEAKER) (test 3.8 meq/L 3.5-5.1 bhak=690) CHLORIDE (BEAKER) (test 101 meq/L 98-107 vtmx=228) CO2 (BEAKER) (test 27 meq/L 22-29 teqz=119) BLOOD UREA NITROGEN 8 mg/dL 7-21 (BEAKER) (test sicq=524) CREATININE (BEAKER) (test 0.61 mg/dL 0.57-1.25 bele=968) GLUCOSE RANDOM (BEAKER) 120 mg/dL 70-105 (test vmnx=304) CALCIUM (BEAKER) (test 7.6 mg/dL 8.4-10.2 ccur=194) AST (SGOT) (BEAKER) (test 112 U/L 5-34 dsji=053) ALT (SGPT) (BEAKER) (test 34 U/L 6-55 ezhd=112) EGFR (BEAKER) (test 139 mL/min/1.73 sq ESTIMATED GFR IS NOT uvdi=2607) m ACCURATE CREATININE CLEARANCE IN PREDICTING GLOMERULAR FILTRATION RATE. ESTIMATED GFR IS NOT APPLICABLE FOR DIALYSIS PATIENTS. Specimen moderately [id number] 10:24:00 Test Item Value Reference Range Comments MAGNESIUM (BEAKER) (test ubiu=175) 1.7 mg/dL 1.6-2.6 ANTI-NUCLEAR ANTIBODY (HEIDY)2018-09-16 07:54:00 Test Item Value Reference Range Comments ANTI-NUCLEAR ANTIBODY (HEIDY) (BEAKER) (test Negative Negative qjzw=769) Test performed by IFA method.Test performed by IFA method.[id number] 06: 21:00 Test Item Value Reference Range Comments FERRITIN (BEAKER) (test ynvh=880) 489 ng/mL 5-275 HEPATITIS C [id number] 05:42:00 Test Item Value Reference Range Comments HEPATITIS C ANTIBODY (BEAKER) (test bvye=764) Nonreactive Nonreactive ALPHA FETOPROTEIN (AFP), TUMOR [id number] 05:42:00 Test Item Value Reference Range Comments ALPHA-FETOPROTEIN (BEAKER) (test ymxf=4840) < ng/mL <10.0 PROTHROMBIN TIME/[id number] 05:23:00 Test Item Value Reference Range Comments PROTIME (BEAKER) (test hyko=083) 24.7 seconds 11.9-14.2 INR (BEAKER) (test pmdd=096) 2.4 <=5.9 RECOMMENDED COUMADIN/WARFARIN INR THERAPY RANGESSTANDARD DOSE: 2.0 - 3.0 Includes: PROPHYLAXIS forvenous thrombosis, systemic embolization; TREATMENT for venous thrombosis and/or pulmonary embolus.HIGH RISK: Target INR is 2.5-3.5 for patients with mechanical heart valves.CBC W/PLT COUNT & AUTO [id number] 05:15:00 Test Item Value Reference Range Comments WHITE BLOOD CELL COUNT (BEAKER) (test tigq=910) 5.4 K/ L 3.5-10.5 RED BLOOD CELL COUNT (BEAKER) (test nyoa=565) 2.65 M/ L 4.63-6.08 HEMOGLOBIN (BEAKER) (test mezs=289) 9.7 GM/DL 13.7-17.5 HEMATOCRIT (BEAKER) (test igzx=467) 28.8 % 40.1-51.0 MEAN CORPUSCULAR VOLUME (BEAKER) (test maxp=037) 108.7 fL 79.0-92.2 MEAN CORPUSCULAR HEMOGLOBIN (BEAKER) (test 36.6 pg 25.7-32.2 zzdm=168) MEAN CORPUSCULAR HEMOGLOBIN CONC (BEAKER) (test 33.7 GM/DL 32.3-36.5 eidr=520) RED CELL DISTRIBUTION WIDTH (BEAKER) (test 17.4 % 11.6-14.4 mzdr=496) PLATELET COUNT (BEAKER) (test ocaa=575) 77 K/CU MM 150-450 MEAN PLATELET VOLUME (BEAKER) (test yepj=678) 11.7 fL 9.4-12.4 NUCLEATED RED BLOOD CELLS (BEAKER) (test 0 /100 WBC 0-0 gltp=801) NEUTROPHILS RELATIVE PERCENT (BEAKER) (test 65 % gwqr=696) LYMPHOCYTES RELATIVE PERCENT (BEAKER) (test 22 % qcgf=531) MONOCYTES RELATIVE PERCENT (BEAKER) (test 8 % hnko=205) EOSINOPHILS RELATIVE PERCENT (BEAKER) (test 4 % pnai=412) BASOPHILS RELATIVE PERCENT (BEAKER) (test 1 % rivz=555) NEUTROPHILS ABSOLUTE COUNT (BEAKER) (test 3.52 K/ L 1.78-5.38 ylti=724) LYMPHOCYTES ABSOLUTE COUNT (BEAKER) (test 1.19 K/ L 1.32-3.57 clhr=028) MONOCYTES ABSOLUTE COUNT (BEAKER) (test zlvx=285) 0.43 K/ L 0.30-0.82 EOSINOPHILS ABSOLUTE COUNT (BEAKER) (test 0.24 K/ L 0.04-0.54 yhvp=418) BASOPHILS ABSOLUTE COUNT (BEAKER) (test cvbq=793) 0.03 K/ L 0.01-0.08 IMMATURE GRANULOCYTES-RELATIVE PERCENT (BEAKER) 1 % 0-1 (test bwvz=7835) RAD, CHEST, 1 VIEW, NON [id number] 07:20:00Reason for exam:->r/o PNAShould this be performed at the bedside?->YesFINAL REPORT INDICATION: r/o PNA COMPARISON: None TECHNIQUE: Single frontal view of the chest. FINDINGS: Lungs and pleura: Clear lungs. No effusion.Heart and mediastinum: Normal heart size. Unremarkable mediastinal contours.Osseous structures: No acute abnormality.Other: None. IMPRESSION: No acute intrathoracic abnormality. Signed: JR Jaquez Robert MDReport Verified Date/Time: 09/15/2018 07:20:18 Reading Location: [facility] Radiology Reading Room CVN-3-[id number] 05:36:00 Test Item Value Reference Range Comments ALPHA-1 ANTITRYPSIN (BEAKER) (test squn=518) 119.90 mg/dL 90.00-200.00 COMPREHENSIVE METABOLIC [id number] 05:30:00 Test Item Value Reference Range Comments TOTAL PROTEIN (BEAKER) 6.0 gm/dL 6.0-8.3 (test kaqr=821) ALBUMIN (BEAKER) (test 2.0 g/dL 3.5-5.0 jxmw=3128) ALKALINE PHOSPHATASE 156 U/L 40-150 (BEAKER) (test vbqp=266) BILIRUBIN TOTAL (BEAKER) 7.9 mg/dL 0.2-1.2 (test zbhi=470) SODIUM (BEAKER) (test 131 meq/L 136-145 ddzr=875) POTASSIUM (BEAKER) (test 4.0 meq/L 3.5-5.1 slpl=576) CHLORIDE (BEAKER) (test 103 meq/L 98-107 lkpm=167) CO2 (BEAKER) (test 25 meq/L 22-29 smdw=533) BLOOD UREA NITROGEN 8 mg/dL 7-21 (BEAKER) (test eqli=839) CREATININE (BEAKER) (test 0.57 mg/dL 0.57-1.25 hzgz=753) GLUCOSE RANDOM (BEAKER) 102 mg/dL 70-105 (test jvcq=223) CALCIUM (BEAKER) (test 7.5 mg/dL 8.4-10.2 dssf=606) AST (SGOT) (BEAKER) (test 119 U/L 5-34 mben=440) ALT (SGPT) (BEAKER) (test 36 U/L 6-55 izkk=779) EGFR (BEAKER) (test 150 mL/min/1.73 sq ESTIMATED GFR IS NOT zkgn=4051) m ACCURATE CREATININE CLEARANCE IN PREDICTING GLOMERULAR FILTRATION RATE. ESTIMATED GFR IS NOT APPLICABLE FOR DIALYSIS PATIENTS. Specimen moderately [id number] 05:25:00 Test Item Value Reference Range Comments MAGNESIUM (BEAKER) (test vadn=922) 1.5 mg/dL 1.6-2.6 PROTHROMBIN TIME/[id number] 05:22:00 Test Item Value Reference Range Comments PROTIME (BEAKER) (test djcr=747) 24.9 seconds 11.7-14.7 INR (BEAKER) (test pfwm=096) 2.4 <=5.9 RECOMMENDED COUMADIN/WARFARIN INR THERAPY RANGESSTANDARD DOSE: 2.0 - 3.0 Includes: PROPHYLAXIS forvenous thrombosis, systemic embolization; TREATMENT for venous thrombosis and/or pulmonary embolus.HIGH RISK: Target INR is 2.5-3.5 for patients with mechanical heart valves.CBC W/PLT COUNT & AUTO [id number] 05:14:00 Test Item Value Reference Range Comments WHITE BLOOD CELL COUNT (BEAKER) (test vqod=331) 4.1 K/ L 3.5-10.5 RED BLOOD CELL COUNT (BEAKER) (test oogq=592) 2.60 M/ L 4.63-6.08 HEMOGLOBIN (BEAKER) (test qimv=372) 9.6 GM/DL 13.7-17.5 HEMATOCRIT (BEAKER) (test vkdk=685) 29.5 % 40.1-51.0 MEAN CORPUSCULAR VOLUME (BEAKER) (test glsn=882) 113.5 fL 79.0-92.2 MEAN CORPUSCULAR HEMOGLOBIN (BEAKER) (test 36.9 pg 25.7-32.2 lmvl=181) MEAN CORPUSCULAR HEMOGLOBIN CONC (BEAKER) (test 32.5 GM/DL 32.3-36.5 icze=736) RED CELL DISTRIBUTION WIDTH (BEAKER) (test 17.5 % 11.6-14.4 dhwg=637) PLATELET COUNT (BEAKER) (test osox=906) 50 K/CU MM 150-450 MEAN PLATELET VOLUME (BEAKER) (test oykq=402) 10.9 fL 9.4-12.4 NUCLEATED RED BLOOD CELLS (BEAKER) (test 1 /100 WBC 0-0 ddru=917) NEUTROPHILS RELATIVE PERCENT (BEAKER) (test 65 % edfu=071) LYMPHOCYTES RELATIVE PERCENT (BEAKER) (test 21 % vgai=652) MONOCYTES RELATIVE PERCENT (BEAKER) (test 9 % vnnp=382) EOSINOPHILS RELATIVE PERCENT (BEAKER) (test 4 % srou=252) BASOPHILS RELATIVE PERCENT (BEAKER) (test 1 % iqxo=411) NEUTROPHILS ABSOLUTE COUNT (BEAKER) (test 2.63 K/ L 1.78-5.38 cjqd=662) LYMPHOCYTES ABSOLUTE COUNT (BEAKER) (test 0.85 K/ L 1.32-3.57 vspz=811) MONOCYTES ABSOLUTE COUNT (BEAKER) (test qniv=016) 0.38 K/ L 0.30-0.82 EOSINOPHILS ABSOLUTE COUNT (BEAKER) (test 0.16 K/ L 0.04-0.54 wrkd=312) BASOPHILS ABSOLUTE COUNT (BEAKER) (test fein=095) 0.03 K/ L 0.01-0.08 IMMATURE GRANULOCYTES-RELATIVE PERCENT (BEAKER) 1 % 0-1 (test fjkx=6457) HEPATITIS A ANTIBODY, [id number] 19:16:00 Test Item Value Reference Range Comments HEPATITIS A IGG ANTIBODY (BEAKER) (test eyxh=3800) Reactive Nonreactive HEPATITIS B SURFACE [id number] 19:15:00 Test Item Value Reference Range Comments HEPATITIS B SURFACE ANTIBODY (BEAKER) (test < mIU/mL <8.0 udpl=303) HEPATITIS B SURFACE [id number] 19:11:00 Test Item Value Reference Range Comments HEPATITIS B SURFACE ANTIGEN (2) (BEAKER) (test Nonreactive Nonreactive cbsv=8643) HEPATITIS B CORE ANTIBODY, [id number] 19:11:00 Test Item Value Reference Range Comments HEPATITIS B CORE TOTAL ANTIBODY (BEAKER) (test Nonreactive Nonreactive wvjl=561) IRON, TIBC, % SAT. (WITHOUT FERRITIN)2018-09-14 18:50:00 Test Item Value Reference Range Comments IRON (BEAKER) (test xkbt=980) 82.0 ug/dL 40.0-160.0 TOTAL IRON BINDING CAPACITY (BEAKER) (test 80 ug/dL 250-450 iuia=784) IRON % SATURATION (2) (BEAKER) (test pmol=8023) 103 % 20-55 PROTEIN, BODY [id number] 17:49:00 Test Item Value Reference Range Comments PROTEIN FLUID (BEAKER) (test bsqi=811) 0.9 g/dL Absence of reference range indicates that normals have not been defined.Assay performance has not been validated for this type of specimen.U/S, [id number] 16:46:00Page hospitalist team 6 with ?s Reason [...] was used for local anesthesia. A 5 Maur[place]ian needlecatheter system was advanced into the peritoneal space. 6000 cc cloudy yellow fluid was taken off. Patient tolerated the procedure well. Impression: Ultrasound guided paracentesis. Signed: Yolanda Lott [facility] Verified Date/ Time: 09/14/2018 16:46:50 Reading Location: [address] Body ReadingRoom BODY FLUID CELL COUNT WITH [id number] 16:28:00 Test Item Value Reference Range Comments APPEARANCE FLUID (BEAKER) (test gwef=822) Hazy Clear COLOR FLUID (BEAKER) (test cjlp=966) Yellow Colorless, Straw RBC FLUID (BEAKER) (test yjqj=275) 2000 /cu mm <=1 ADJUSTED WBC FLUID (BEAKER) (test zitv=2163) 270 /cu mm <=5 LINING CELLS (BEAKER) (test reac=2680) 0 /cu mm <=1 NEUTROPHILS FLUID (BEAKER) (test xdiu=3426) 41 % LYMPHS FLUID (BEAKER) (test zats=104) 30 % MONO/MACROPHAGE FLUID (BEAKER) (test xxms=764) 29 % EOSINOPHILS FLUID (BEAKER) (test bioa=302) 0 % BASO FLUID (BEAKER) (test onaz=938) 0 % CONTAINER BODY FLUID (BEAKER) (test ldzu=2047) EDTA Tube ALBUMIN, BODY [id number] 16:05:00 Test Item Value Reference Range Comments ALBUMIN FLUID (BEAKER) (test ffec=028) 0.4 gm/dL Reference Range: No Normals Assay performance has not been validated for this type of specimen.U/S, ABDOMINAL, [id number] 09:28:00Reason for exam:-&gt ;abdominal painFINAL REPORT INDICATION: [...] with moderate ascites.Patent main portal vein. Signed: Yolanda Lott MDReport Verified Date/Time: 09/14/2018 09:28:37 Reading Location: [address] Body Reading Room T4, [id number] 08:43:00 Test Item Value Reference Range Comments FREE T4 (BEAKER) (test kdxn=946) 0.87 ng/dL 0.70-1.48 POCT-GLUCOSE [id number] 07:33:00 Test Item Value Reference Range Comments POC-GLUCOSE METER (BEAKER) 94 mg/dL 70-[address] [facility] [address] [facility] (test uwwi=7808) [facility] [address] [id number] 06:26:00 Test Item Value Reference Range Comments THYROID STIMULATING HORMONE (BEAKER) (test 1.93 uIU/mL 0.35-4.94 gplq=447) BASIC METABOLIC [id number] 05:52:00 Test Item Value Reference Range Comments SODIUM (BEAKER) (test 130 meq/L 136-145 extv=745) POTASSIUM (BEAKER) (test 5.1 meq/L 3.5-5.1 Specimen slightly ovmu=441) hemolyzed CHLORIDE (BEAKER) (test 102 meq/L 98-107 ovqi=534) CO2 (BEAKER) (test 25 meq/L 22-29 njrs=068) BLOOD UREA NITROGEN 6 mg/dL 7-21 (BEAKER) (test ffof=647) CREATININE (BEAKER) (test 0.57 mg/dL 0.57-1.25 Specimen slightly pgpm=107) hemolyzed GLUCOSE RANDOM (BEAKER) 99 mg/dL 70-105 (test vefk=033) CALCIUM (BEAKER) (test 7.6 mg/dL 8.4-10.2 gcqy=162) EGFR (BEAKER) (test 150 mL/min/1.73 sq m ESTIMATED GFR IS NOT sqcr=9661) ACCURATE CREATININE CLEARANCE IN PREDICTING GLOMERULAR FILTRATION RATE. ESTIMATED GFR IS NOT APPLICABLE FOR DIALYSIS PATIENTS. Specimen moderately ictericHEPATIC FUNCTION [id number] 05:52:00 Test Item Value Reference Range Comments TOTAL PROTEIN (BEAKER) (test 6.9 gm/dL 6.0-8.3 Specimen slightly hemolyzed qdqa=747) ALBUMIN (BEAKER) (test 1.9 g/dL 3.5-5.0 Specimen slightly hemolyzed ozuf=9281) BILIRUBIN TOTAL (BEAKER) (test 9.0 mg/dL 0.2-1.2 Specimen slightly hemolyzed kgtr=510) BILIRUBIN DIRECT (BEAKER) (test 5.1 mg/dL 0.1-0.5 Specimen slightly hemolyzed llqq=066) ALKALINE PHOSPHATASE (BEAKER) 174 U/L 40-150 (test tgry=380) AST (SGOT) (BEAKER) (test 178 U/L 5-34 Specimen slightly hemolyzed xxqs=936) ALT (SGPT) (BEAKER) (test 48 U/L 6-55 Specimen slightly hemolyzed xjpx=921) Specimen moderately [id number] 05:43:00 Test Item Value Reference Range Comments ETHANOL (BEAKER) (test bkdy=881) < mg/dL <=10 PROTHROMBIN TIME/[id number] 05:10:00 Test Item Value Reference Range Comments PROTIME (BEAKER) (test defs=123) 22.1 seconds 11.7-14.7 INR (BEAKER) (test dvhq=313) 2.1 <=5.9 RECOMMENDED COUMADIN/WARFARIN INR THERAPY RANGESSTANDARD DOSE: 2.0 - 3.0 Includes: PROPHYLAXIS forvenous thrombosis, systemic embolization; TREATMENT for venous thrombosis and/or pulmonary embolus.HIGH RISK: Target INR is 2.5-3.5 for patients with mechanical heart valves.CBC W/PLT COUNT & AUTO [id number] 04:57:00 Test Item Value Reference Range Comments WHITE BLOOD CELL COUNT (BEAKER) (test yiwx=078) 6.7 K/ L 3.5-10.5 RED BLOOD CELL COUNT (BEAKER) (test zekd=898) 2.74 M/ L 4.63-6.08 HEMOGLOBIN (BEAKER) (test cbxb=982) 10.1 GM/DL 13.7-17.5 HEMATOCRIT (BEAKER) (test nydm=455) 30.0 % 40.1-51.0 MEAN CORPUSCULAR VOLUME (BEAKER) (test hjpv=382) 109.5 fL 79.0-92.2 MEAN CORPUSCULAR HEMOGLOBIN (BEAKER) (test 36.9 pg 25.7-32.2 zokj=688) MEAN CORPUSCULAR HEMOGLOBIN CONC (BEAKER) (test 33.7 GM/DL 32.3-36.5 dial=874) RED CELL DISTRIBUTION WIDTH (BEAKER) (test 17.8 % 11.6-14.4 wauv=089) PLATELET COUNT (BEAKER) (test owzw=626) 83 K/CU MM 150-450 MEAN PLATELET VOLUME (BEAKER) (test vpza=266) 10.4 fL 9.4-12.4 NUCLEATED RED BLOOD CELLS (BEAKER) (test 0 /100 WBC 0-0 hxmn=318) NEUTROPHILS RELATIVE PERCENT (BEAKER) (test 75 % gjfy=507) LYMPHOCYTES RELATIVE PERCENT (BEAKER) (test 14 % rirs=221) MONOCYTES RELATIVE PERCENT (BEAKER) (test 7 % qoai=243) EOSINOPHILS RELATIVE PERCENT (BEAKER) (test 2 % lpbu=698) BASOPHILS RELATIVE PERCENT (BEAKER) (test 1 % ilmu=265) NEUTROPHILS ABSOLUTE COUNT (BEAKER) (test 4.98 K/ L 1.78-5.38 kvbe=154) LYMPHOCYTES ABSOLUTE COUNT (BEAKER) (test 0.93 K/ L 1.32-3.57 vtlg=820) MONOCYTES ABSOLUTE COUNT (BEAKER) (test ksfj=144) 0.49 K/ L 0.30-0.82 EOSINOPHILS ABSOLUTE COUNT (BEAKER) (test 0.16 K/ L 0.04-0.54 ywsf=384) BASOPHILS ABSOLUTE COUNT (BEAKER) (test pjen=779) 0.06 K/ L 0.01-0.08 IMMATURE GRANULOCYTES-RELATIVE PERCENT (BEAKER) 1 % 0-1 (test crui=7075) PROTHROMBIN [id number] 01:38:00 Test Item Value Reference Range Comments PROTIME (BEAKER) (test oxok=701) 21.1 seconds 11.7-14.7 INR (BEAKER) (test jzco=565) 1.9 <=5.9 RECOMMENDED COUMADIN/WARFARIN INR THERAPY RANGESSTANDARD DOSE: 2.0 - 3.0 Includes: PROPHYLAXIS forvenous thrombosis, systemic embolization; TREATMENT for venous thrombosis and/or pulmonary embolus.HIGH RISK: Target INR is 2.5-3.5 for patients with mechanical heart valves.BASIC METABOLIC [id number] 01:37: 00 Test Item Value Reference Range Comments SODIUM (BEAKER) (test 130 meq/L 136-145 nsbq=578) POTASSIUM (BEAKER) (test 4.6 meq/L 3.5-5.1 Specimen moderately roiv=763) hemolyzed CHLORIDE (BEAKER) (test 100 meq/L 98-107 clwk=241) CO2 (BEAKER) (test 21 meq/L 22-29 vwrw=364) BLOOD UREA NITROGEN 6 mg/dL 7-21 (BEAKER) (test lsmr=991) CREATININE (BEAKER) (test 0.61 mg/dL 0.57-1.25 Specimen moderately ieaw=371) hemolyzed GLUCOSE RANDOM (BEAKER) 100 mg/dL 70-105 (test qbrw=076) CALCIUM (BEAKER) (test 7.8 mg/dL 8.4-10.2 xyco=381) EGFR (BEAKER) (test 139 mL/min/1.73 sq m ESTIMATED GFR IS NOT nwmb=4980) ACCURATE CREATININE CLEARANCE IN PREDICTING GLOMERULAR FILTRATION RATE. ESTIMATED GFR IS NOT APPLICABLE FOR DIALYSIS PATIENTS. Specimen moderately [id number] 01:36:00 Test Item Value Reference Range Comments MAGNESIUM (BEAKER) (test 1.9 mg/dL 1.6-2.6 Specimen moderately hemolyzed riad=604) HEPATIC FUNCTION [id number] 01:36:00 Test Item Value Reference Range Comments TOTAL PROTEIN (BEAKER) (test 8.0 gm/dL 6.0-8.3 Specimen moderately hemolyzed oant=353) ALBUMIN (BEAKER) (test 2.2 g/dL 3.5-5.0 Specimen moderately hemolyzed ifue=4829) BILIRUBIN TOTAL (BEAKER) (test 9.0 mg/dL 0.2-1.2 Specimen moderately hemolyzed dmnx=145) BILIRUBIN DIRECT (BEAKER) 4.9 mg/dL 0.1-0.5 Specimen moderately hemolyzed (test tajt=326) ALKALINE PHOSPHATASE (BEAKER) 204 U/L 40-150 (test nehj=349) AST (SGOT) (BEAKER) (test 193 U/L 5-34 Specimen moderately hemolyzed rzrc=433) ALT (SGPT) (BEAKER) (test 51 U/L 6-55 Specimen moderately eygu=901) hemolyzed Specimen moderately ictericCBC W/PLT COUNT & AUTO [id number] 01: 21:00 Test Item Value Reference Range Comments WHITE BLOOD CELL COUNT (BEAKER) (test yoaw=184) 6.7 K/ L 3.5-10.5 RED BLOOD CELL COUNT (BEAKER) (test qqcd=227) 2.97 M/ L 4.63-6.08 HEMOGLOBIN (BEAKER) (test awwz=253) 11.1 GM/DL 13.7-17.5 HEMATOCRIT (BEAKER) (test hfgn=893) 31.9 % 40.1-51.0 MEAN CORPUSCULAR VOLUME (BEAKER) (test gsuy=890) 107.4 fL 79.0-92.2 MEAN CORPUSCULAR HEMOGLOBIN (BEAKER) (test 37.4 pg 25.7-32.2 afjq=815) MEAN CORPUSCULAR HEMOGLOBIN CONC (BEAKER) (test 34.8 GM/DL 32.3-36.5 fptg=133) RED CELL DISTRIBUTION WIDTH (BEAKER) (test 17.8 % 11.6-14.4 habc=557) PLATELET COUNT (BEAKER) (test zfsx=042) 101 K/CU MM 150-450 MEAN PLATELET VOLUME (BEAKER) (test jkhl=344) 10.9 fL 9.4-12.4 NUCLEATED RED BLOOD CELLS (BEAKER) (test 0 /100 WBC 0-0 vhqs=442) NEUTROPHILS RELATIVE PERCENT (BEAKER) (test 81 % kwnm=557) LYMPHOCYTES RELATIVE PERCENT (BEAKER) (test 9 % vszb=723) MONOCYTES RELATIVE PERCENT (BEAKER) (test 8 % waqj=954) EOSINOPHILS RELATIVE PERCENT (BEAKER) (test 1 % wgcc=538) BASOPHILS RELATIVE PERCENT (BEAKER) (test 1 % zvda=405) NEUTROPHILS ABSOLUTE COUNT (BEAKER) (test 5.37 K/ L 1.78-5.38 bbok=349) LYMPHOCYTES ABSOLUTE COUNT (BEAKER) (test 0.60 K/ L 1.32-3.57 denq=938) MONOCYTES ABSOLUTE COUNT (BEAKER) (test 0.55 K/ L 0.30-0.82 wemh=882) EOSINOPHILS ABSOLUTE COUNT (BEAKER) (test 0.04 K/ L 0.04-0.54 gwaj=052) BASOPHILS ABSOLUTE COUNT (BEAKER) (test 0.07 K/ L 0.01-0.08 vyyv=603) IMMATURE GRANULOCYTES-RELATIVE PERCENT (BEAKER) 1 % 0-1 (test dpvi=0291)
--- OUTSIDE RECORDS SUMMARY | 2019-06-29 12:38 | XMS REPORT ---
[...] Status Dosage System Date Date Folic Acid [facility] 53766331276 1 MG Orally Active 1 tablet Once a day Lactulose [facility] 07306415697 20 GM Orally Active not Three times a defined day Bumetanide ND 10402275611 0.5 MG orally Active take 2 twice a day tablet Furosemide ND 50647614481 40 MG Orally Active 1 tablet Once a day Hydrocortisone ND 10366545347 20 MG Orally Active 1 tablet Once a day with food or milk Spironolactone ND 31185691501 25 MG Orally Active 1 tablet Three times a day Torsemide ND 38354744101 20 MG Oral Active not defined Rifaximin [facility] [address]-14 550 MG Orally May Active 1 tablet Twice a day 2019 Pantoprazole ND 16293616492 40 MG Orally Active 1 tablet Sodium [place] 50[place] [address] - Orally Once a Active as Vitamin/Min day directed Results No Known Results Summary Purpose eClinicalWorks Submission
--- OUTSIDE RECORDS SUMMARY | 2019-06-29 12:39 | XMS REPORT ---
:1965 Author Organization eClinicalWorks Care Team Providers Name Role Phone Evelia Klein Provider Role Unavailable Allergies, Adverse Reactions, Alerts Substance Reaction Event Type N.K.D.A. 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 Active Problem Degenerative cervical spinal M48.02 Active stenosis Problem Alcoholic cirrhosis of liver K70.30 Active without ascites Problem Acute pain of right shoulder M25.511 Active Medications Medication Code Code Instructions Start End Status Dosage System Date Date Lactulose [facility] 85409073543 20 GM Orally Active not Three times a defined day Folic Acid ND 03786957338 1 MG Orally Active 1 tablet Once a day Torsemide ND 25039862143 20 MG Oral Active not defined Hydrocortisone ND 99255496062 20 MG Orally Active 1 tablet Once a day with food or milk Spironolactone ND 73596435142 25 MG Orally Active 1 tablet Three times a day Pantoprazole ND 05865114031 40 MG Orally Active 1 tablet Sodium Once a day Bumetanide [facility] 16746966445 0.5 MG orally Active take 2 twice a day tablet Rifaximin [facility] [address]-96 550 MG Orally May Active 1 tablet Twice a day 2019 Mens 50+ Multi [facility] [address] - Orally Once a Active as Vitamin/Min day directed Results No Known Results Summary Purpose eClinicalWorks Submission
--- OUTSIDE RECORDS SUMMARY | 2019-06-29 12:39 | XMS REPORT ---
[...] Date End Date Status Dosage Folic Acid [facility] 65391256934 1 MG Orally Once Active 1 tablet a day Results No Known Results Summary Purpose eClinicalWorks Submission
[2019-06-29] MEDS ORDERED: FUROSEMIDE 40 MG/4 ML VIAL ONE (13:23)
--- NOTE | 2019-06-29 13:41 | RAD REPORT ---
EXAM DESCRIPTION: [facility]ester Single View06/29/2019 1:33 pm CLINICAL HISTORY: Shortness of breath COMPARISON: none FINDINGS: The lungs appear clear of acute infiltrate. The heart is mildly enlarged. Upper lobe vessels are prominent indicative of pulmonary venous hypertension
[2019-06-29 15:12] LABS: Urine Blood NEGATIVE (NEG); Urine Glucose NEGATIVE (NEG); Urine Protein NEGATIVE (NEG); Urine Specific Gravity 1.015 (1.005-1.030); Urine pH 5.5 (5.0-7.0)
[2019-06-29 15:24] LABS: Absolute Lymphocytes (CBC) 0.5 K/uL (0.7-4.9); Basophils % 0.4 % (0-1.3); Hematocrit 22.3 % (39.6-49.0); Lymphocytes % 6.3 % (15.3-44.8); MPV 8.3 fL (7.6-11.3); RBC Red Blood Cell Count 2.04 M/uL (4.33-5.43)
[2019-06-29 15:26] LABS: Protime INR 2.72
--- NOTE | 2019-06-29 15:29 | EKG ---
Test Date: 2019-06-29 Test Time: 12:56:04 [place]inier Tender: KB MEASUREMENT RESULTS: Intervals: Rate: 87 OH: 156 QRSD: 104 QT: 390 QTc: 469 Orange: P: 37 OH: 156 QRS: 9 T: 53 INTERPRETIVE STATEMENTS: Normal sinus rhythm Normal ECG Compared to ECG 05/31/2019 15:47:20 Prolonged QT interval no longer present Electronically Signed On 06-29-19 15:28:37 CDT by Damian Harris
[2019-06-29 15:42] LABS: Albumin 1.8 g/dL (3.4-5.0); Bilirubin Direct 7.7 mg/dL (0-0.2); Magnesium 2.2 mg/dL (1.8-2.4); Potassium 5.2 mmol/L (3.5-5.1); Protein, Total 5.9 g/dL (6.4-8.2); Troponin (Emerg Dept Use Only) 0.02 ng/mL (0.0-0.045)
[2019-06-29 15:52] LABS: Bilirubin Total 11.7 mg/dL (0.2-1.0)
[2019-06-29 16:22] LABS: Platelet Estimate DECR; Urine White Blood Cell Casts OK
[2019-06-29 16:23] LABS: Anisocytosis 3+; Blood Morphology Comment NOTED (NOT SEEN); Macrocytosis 1+; Platelets, Giant PRESENT
--- NOTE | 2019-06-29 17:06 | EDPHYS ---
Physician Documentation [facility] Name: Chrissie Parada Jr Age: 54 yrs Sex: Male : 1965 Arrival Date: 06/29/2019 Time: 12:09 Bed 20 Private MD: ED Physician Harjeet Gibson Historical: - Allergies: 06/28 12:39 No Known Allergies; ss - Home Meds: 16:45 bumetanide 0.5 mg Oral tab 1 tab 2 times per day [Active]; folic acid 1 mg Oral tab 1 wh tab once daily [Active]; furosemide 40 mg oral tab once daily [Active]; spironolactone 100 mg Oral tab 1 tab once daily [Active]; Xifaxan 550 mg Oral tab 1 tab 2 times per day [Active]; midodrine 10 mg oral tab 1 tab 3 times per day [Active]; hydroxyzine HCl 25 mg Oral tab 1 tab 3 times per day for Pruritus of Skin [Active]; lactulose 20 gram/30 mL Oral soln 30 mL 3 times per day [Active]; folic acid 1 mg Oral tab 1 tab once daily [Active]; hydrocortisone 20 mg Oral tab 1 tab once daily [Active]; omeprazole 40 mg Oral cpDR 1 cap once daily [Active]; Certavite-Antioxidant 18-400 mg-mcg oral tab 1 tab once daily [Active]; - PMHx: 12:39 Arthritis; Cirrhosis; esophageal varices; GERD; ss - PSHx: 12:39 Cholecystectomy; ss - Immunization history:: Adult Immunizations up to date. - Social history:: Smoking status: Patient denies any tobacco usage or history of. Exam: 13:02 Head/Face: Normocephalic, atraumatic. ENT: Nares patent. No nasal discharge, no jr8 septal abnormalities noted. Tympanic membranes are normal and external auditory canals are clear. Oropharynx with no redness, swelling, or masses, exudates, or evidence of obstruction, uvula midline. Mucous membranes moist. Neck: Trachea midline, no thyromegaly or masses palpated, and no cervical lymphadenopathy. Supple, full range of motion without nuchal rigidity, or vertebral point tenderness. No Meningismus. Respiratory: Lungs have equal breath sounds bilaterally, clear to auscultation and percussion. No rales, rhonchi or wheezes noted. No increased work of breathing, no retractions or nasal flaring. Back: No spinal tenderness. No costovertebral tenderness. Full range of motion. MS/ Extremity: Pulses equal, no cyanosis. Neurovascular intact. Full, normal range of motion. Neuro: Awake and alert, GCS 15, oriented to person, place, time, and situation. Cranial nerves II-XII grossly intact. Motor strength 5/5 in all extremities. Sensory grossly intact. Cerebellar exam normal. Normal gait. 13:02 Eyes: Periorbital structures: appear normal, Pupils: equal, round, and reactive to light and accomodation, Extraocular movements: intact throughout, Conjunctiva: normal, Corneas: are normal, Sclera: icterus, Lids and lashes: appear normal. 13:02 Cardiovascular: Rate: normal, Rhythm: regular, Pulses: Pulses are 2+ in right radial artery and left radial artery. Heart sounds: murmur, systolic, grade 4 over 6, heard in the aortic area, Edema: 4+ edema to level of waist, pubic area, left upper thigh, left lower thigh, left knee, left midcalf, left ankle, left foot, left toes, right upper thigh, right lower thigh, right knee, right midcalf, right ankle, right foot and right toes, JVD: is not appreciated. 13:02 ECG was reviewed by the Attending Physician. 13:02 Abdomen/GI: Inspection: obese pitting edema present, Bowel sounds: active, all quadrants, Palpation: abdomen is soft and non-tender, in all quadrants. 13:02 Skin: Appearance: Color: jaundiced. Vital Signs: 12:33 BP 122 / 40; Pulse 87; Resp 19; Temp 97.9(TE); Pulse Ox 94% on R/A; Weight 131.54 kg; ss Height 5 ft. 6 in. (167.64 cm); Pain 9/10; 13:00 BP 117 / 41; Pulse 84; Resp 18; Pulse Ox 95% on R/A; wh 14:00 BP 108 / 54; Pulse 85; Resp 18; Pulse Ox 95% on R/A; wh 15:00 BP 116 / 51; Pulse 88; Resp 18; Pulse Ox 98% on R/A; wh 16:00 BP 117 / 52; Pulse 88; Resp 18; Pulse Ox 97% on R/A; wh 17:30 BP 119 / 65; Pulse 88; Resp 18; Pulse Ox 99% on R/A; wh 18:15 BP 105 / 62; Pulse 96; Resp 18; Pulse Ox 98% on R/A; wh 12:33 Body Mass Index 46.81 (131.54 kg, 167.64 cm) ss MDM: 12:30 Patient medically screened. 06/28 12:45 Order name: Basic Metabolic Panel; Complete Time: 15:55 [facility] 06/28 12:45 Order name: CBC with Diff; Complete Time: 16:26 06/28 12:45 Order name: LFT's; Complete Time: 15:57 [facility] 06/28 12:45 Order name: Magnesium; Complete Time: 15:57 [facility] 06/28 12:45 Order name: NT PRO-BNP; Complete Time: 15:57 06/28 12:45 Order name: PT-INR; Complete Time: 15:44 [facility] 06/28 12:45 Order name: Troponin (emerg Dept Use Only); Complete Time: 15:57 [facility] 06/28 12:45 Order name: XRAY Chest (1 view); Complete Time: 13:53 [facility] 06/28 12:54 Order name: AMMONIA; Complete Time: 15:44 [facility] 06/28 14:10 Order name: Urine Dipstick--Ancillary (enter results); Complete Time: 15:33 bd 06/28 16:25 Order name: CBC Smear Scan; Complete Time: 16:26 EDMS 06/28 16:40 Order name: TS 06/28 12:45 Order name: EKG; Complete Time: 13:01 06/28 12:45 Order name: Cardiac monitoring; Complete Time: 15:07 [facility] 06/28 12:45 Order name: EKG - Nurse/Tech; Complete Time: 15:07 [facility] 06/28 12:45 Order name: IV Saline Lock; Complete Time: 15: 06/28 12:45 Order name: Labs collected and sent; Complete Time: 15: 06/28 12:45 Order name: O2 Per Protocol; Complete Time: 15: [facility] 06/28 12:45 Order name: O2 Sat Monitoring; Complete Time: 15: 8 03/10 15:58 Order name: Diet 2 Gm Sodium; Complete Time: 15:59 ss EC:02 Rate is 87 beats/min. Rhythm is regular, Normal Sinus Rhythm. QRS [place] is Normal. AR jr8 interval is normal at 156 msec. QRS interval is normal at 104 msec. QT interval is normal at 469 msec. No Q waves. T waves are Normal. No ST changes noted. Clinical impression: Normal ECG and No evidence of ischemia. Interpreted by me. Reviewed by me. Administered Medications: 15:20 Drug: Lasix 60 mg {Note: 113/51 86.} Route: IVP; Site: left upper arm; 17:10 Follow up: Response: No adverse reaction 18:29 Follow up: Response: No adverse reaction 17: Drug: Albumin 25 grams Volume: 100 ml; Route: IVPB; Site: left upper arm; 18:28 Follow up: Response: No adverse reaction; IV Status: Completed infusion Disposition: 18:47 Co-signature as Attending Physician, Harjeet Gibson MD. rn Disposition: 06/29/19 17:[address] [facility]. Diagnosis are Alcoholic cirrhosis of liver, Anasarca, Anemia. - Reason for transfer: Higher level of care. - Accepting physician is Dr. López. - Condition is Fair. - Problem is new. - Symptoms have improved. Signatures: Dispatcher [employer] EDHarjeet Chan MD MD rn [facility] RN RN Douglas Kilgore PA PA jr8 CarlosdenBryn Corrections: (The following items were deleted from the chart) 18:29 17:05 06/29/2019 17:[address] [facility]. Diagnosis is Alcoholic cirrhosis of liver; Anasarca; Anemia. Reason for transfer: Higher level of care. Accepting physician is Dr. López. Condition is Fair. Problem is new. Symptoms have improved. jr8
--- NOTE | 2019-06-29 17:06 | ER ---
Nurse's Notes [facility] Name: Chrissie Parada Jr Age: 54 yrs Sex: Male : 1965 Arrival Date: 06/29/2019 Time: 12:09 Bed 20 Private MD: Diagnosis: Alcoholic cirrhosis of liver;Anasarca;Anemia Presentation: 06/28 12:33 Chief complaint: Patient states: Increased swelling all over body, shortness of breath ss and body aches that began over the weekend. Pt has a history of liver cirrhosis and has not had his new prescriptions, Torsemide and midodrine filled until yesterday. Coronavirus screen: The patient has NOT traveled to a country currently being monitored by the CDC within the last 14 days. Proceed with normal triage procedures. Ebola Screen: Patient denies exposure to infectious person. Patient denies travel to an Ebola-affected area in the 21 days before illness onset. Initial Sepsis Screen: Does the patient meet any 2 criteria? No. Patient's initial sepsis screen is negative. Does the patient have a suspected source of infection? No. Patient's initial sepsis screen is negative. Risk Assessment: Do you want to hurt yourself or someone else? Patient reports no desire to harm self or others. 12:33 Method Of Arrival: Wheelchair ss 12:33 Acuity: WENDY 2 ss 13:00 Onset of symptoms is unknown. Historical: - Allergies: 12:39 No Known Allergies; ss - Home Meds: 16:45 bumetanide 0.5 mg Oral tab 1 tab 2 times per day [Active]; folic acid 1 mg Oral tab 1 wh tab once daily [Active]; furosemide 40 mg oral tab once daily [Active]; spironolactone 100 mg Oral tab 1 tab once daily [Active]; Xifaxan 550 mg Oral tab 1 tab 2 times per day [Active]; midodrine 10 mg oral tab 1 tab 3 times per day [Active]; hydroxyzine HCl 25 mg Oral tab 1 tab 3 times per day for Pruritus of Skin [Active]; lactulose 20 gram/30 mL Oral soln 30 mL 3 times per day [Active]; folic acid 1 mg Oral tab 1 tab once daily [Active]; hydrocortisone 20 mg Oral tab 1 tab once daily [Active]; omeprazole 40 mg Oral cpDR 1 cap once daily [Active]; Certavite-Antioxidant 18-400 mg-mcg oral tab 1 tab once daily [Active]; - PMHx: 12:39 Arthritis; Cirrhosis; esophageal varices; GERD; ss - PSHx: 12:39 Cholecystectomy; ss - Immunization history:: Adult Immunizations up to date. - Social history:: Smoking status: Patient denies any tobacco usage or history of. Screenin:00 Abuse screen: Denies threats or abuse. Denies injuries from another. Nutritional wh screening: No deficits noted. Tuberculosis screening: No symptoms or risk factors identified. Fall Risk None identified. Assessment: 13:00 General: Appears in no apparent distress. Behavior is calm, cooperative, appropriate wh for age. Pain: Denies pain. Neuro: Level of Consciousness is awake, alert, obeys commands, Oriented to person, place, time, situation, Appropriate for age. Cardiovascular: Heart tones S1 S2 Edema pitting to right forearm, waist, left midcalf, left ankle, left forearm, right midcalf and right ankle Rhythm is regular. Respiratory: Airway is patent Respiratory effort is even, unlabored, Respiratory pattern is regular, symmetrical, Breath sounds are clear bilaterally. GI: Abdomen is round noted to have ascites, Abd is rigid. : No signs and/or symptoms were reported regarding the genitourinary system. EENT: No signs and/or symptoms were reported regarding the EENT system. Derm: Skin is intact. Musculoskeletal: Circulation, motion, and sensation intact. 13:45 Reassessment: Dusty GORE attempted to put Iv access unsuccessful, notified Sonia GORE for Midline placement. 14:13 Reassessment: Sonia GORE in room putting in midline for blood draw and iv access. 15:10 Reassessment: Patient appears in no apparent distress at this time. No changes from previously documented assessment. Patient and/or family updated on plan of care and expected duration. Pain level reassessed. Patient is alert, oriented x 3, equal unlabored respirations, skin warm/dry/pink. 16:39 Reassessment: Patient appears in no apparent distress at this time. No changes from previously documented assessment. Patient and/or family updated on plan of care and expected duration. Pain level reassessed. Patient is alert, oriented x 3, equal unlabored respirations, skin warm/dry/pink. 17:52 Reassessment: Patient appears in no apparent distress at this time. No changes from previously documented assessment. Patient and/or family updated on plan of care and expected duration. Pain level reassessed. Patient is alert, oriented x 3, equal unlabored respirations, skin warm/dry/pink. Explained POC need for transfer. 18:01 Reassessment: Report given to Saundra Cantu RN. 18:26 Reassessment: Patient appears in no apparent distress at this time. No changes from previously documented assessment. Patient and/or family updated on plan of care and expected duration. Pain level reassessed. Patient is alert, oriented x 3, equal unlabored respirations, skin warm/dry/pink. Report given to [facility]. Vital Signs: 12:33 BP 122 / 40; Pulse 87; Resp 19; Temp 97.9(TE); Pulse Ox 94% on R/A; Weight 131.54 kg; ss Height 5 ft. 6 in. (167.64 cm); Pain 9/10; 13:00 BP 117 / 41; Pulse 84; Resp 18; Pulse Ox 95% on R/A; wh 14:00 BP 108 / 54; Pulse 85; Resp 18; Pulse Ox 95% on R/A; wh 15:00 BP 116 / 51; Pulse 88; Resp 18; Pulse Ox 98% on R/A; wh 16:00 BP 117 / 52; Pulse 88; Resp 18; Pulse Ox 97% on R/A; wh 17:30 BP 119 / 65; Pulse 88; Resp 18; Pulse Ox 99% on R/A; wh 18:15 BP 105 / 62; Pulse 96; Resp 18; Pulse Ox 98% on R/A; wh 12:33 Body Mass Index 46.81 (131.54 kg, 167.64 cm) ED Course: 12:09 Patient arrived in ED. rg4 12:22 Bryn Moreira is Primary Nurse. wh 12:26 Douglas Kilgore PA is PHCP. jr8 12:26 Harjeet Gibson MD is Attending Physician. jr8 12:38 Triage completed. ss 12:39 Arm band placed on right wrist. ss 13:00 Patient has correct armband on for positive identification. Placed in gown. Bed in low wh position. Call light in reach. environmental monitoring specialist on. Pulse ox on. NIBP on. 13:37 XRAY Chest (1 view) In Process Unspecified. EDMS 15:27 Inserted Inserted 20 gauge 10 cm POWERGLIDE to L upper arm. Flushes well, blood return ss noted. Pt tolerated well. 16:46 attempted transfer to [facility]. bd 17:53 pt accepted in transfer to [facility]. room 734. bd 18:27 No provider procedures requiring assistance completed. Patient transferred, IV remains in place. Administered Medications: 15:20 Drug: Lasix 60 mg {Note: 113/51 86.} Route: IVP; Site: left upper arm; 17:10 Follow up: Response: No adverse reaction 18:29 Follow up: Response: No adverse reaction 17:10 Drug: Albumin 25 grams Volume: 100 ml; Route: IVPB; Site: left upper arm; 18:28 Follow up: Response: No adverse reaction; IV Status: Completed infusion Outcome: 17:05 ER care complete, transfer ordered by MD. gomez 18:28 Transferred by ground EMS Transfer form completed. X-rays sent w/ patient. Note: report given to [facility] 18:28 Condition: stable 18:28 Instructed on the need for transfer. 18:29 Patient left the ED. Signatures: Dispatcher [employer] EDMS Caryl Valdez Shelby, RN RN Douglas Garza PA PA jrPatience Ovalle Winsy
[2019-06-29] MEDS ORDERED: ALBUMIN HUMAN 25% 100 ML IV ONE (17:12)
[2019-06-29 18:37] VITALS: TEMP 97.9
[2019-06-29 18:47] VITALS: BP 105/62; O2SAT 98
== END 2019-06-29 18:29 | disposition short-term general hospital (02) ==
LOC: ER 12:06
DX: K70.30 Alcoholic cirrhosis of liver without ascites (principal); R60.1 Generalized edema; D64.9 Anemia, unspecified; K21.9 Gastro-esophageal reflux disease without esophagitis
CPT/HCPCS: 96365; 93005; 85025; 80048; 36415; 82140; 86900; 83735; 86850; 85610; 86901; 80076; 81003; 84484; 83880; 71045; 96375; 99285; J1940; P9047